=== PATIENT | female | born 1960 | race Caucasian/White ===

== ENCOUNTER 2017-03-21 19:55 | Emergency (ER) | payer OTHER ==
[~2017-03-21] VITALS: Ht 160 cm; Wt 70.8 kg
--- OUTSIDE RECORDS SUMMARY | ~2017-03-21 | XMS ---
Demographics + + + | Address | [address] | | | [address] | | | [place] [address] | + + + | Preferred Language | Unknown | + + + | Marital Status | Unknown | + + + | Yarsanism Affiliation | Unknown | + + + | Race | Unknown | + + + | Ethnic Group | Unknown | + + + Author + + + | Author | [facility] | + + + | Organization | [facility] | + + + | Address | [address] | | | [place] [address] | + + + | Phone | | + + + Care Team Providers + + + + | Care Applications Support Lead Name | Role | Phone | + + + + Unavailable | Unavailable | + + + + PROBLEMS +---------+ + + +--------+ + + | Type | Condition | ICD9-CM | [id number] | Onset | Condition | SNOMED | | | | Code | Code | Dates | Status | Code | +---------+ + + +--------+ + + | Problem | Hyperlipem | 272.4 | | | Active | [id number] | | | ia | | | | | | +---------+ + + +--------+ + + | Problem | Hypertensi | 401.9 | | | Active | [id number] | | | on | | | | | | +---------+ + + +--------+ + + | Problem | Degenerati | 722.6 | | | Active | [id number] | | | ve disc | | | | | | | | disease | | | | | | | | NOS | | | | | | +---------+ + + +--------+ + + ALLERGIES + + + + +--------+ | Substance | Reaction | Event Type | Date | Status | + + + + +--------+ | Iron (Ferrous | stomach upset | Drug Allergy | Dec, | Active | | Gluconate) | | | | | + + + + +--------+ | Darvocet-N 100 | vomiting | Drug Allergy | Dec, | Active | + + + + +--------+ SOCIAL HISTORY No smoking Hx information available PLAN OF CARE + +---------+ | Activity | Details | + +---------+ +---+ | | +---+ + + + | Follow Up | 2 Months Reason:null | + + + VITAL SIGNS + + + + | Height | 63 in | 2016-12-31 | + + + + | Weight | 152.3 lbs | 2016-12-31 | + + + + | BMI | 26.98 kg/m2 | 2016-12-31 | + + + + | Temperature | 98.3 degrees Fahrenheit | 2016-12-31 | + + + + | Heart Rate | 68 /min | 2016-12-31 | + + + + | Blood pressure systolic | 123 mm Hg | 2016-12-31 | + + + + | Blood pressure diastolic | 73 mm Hg | 2016-12-31 | + + + + MEDICATIONS + + + + + + + +--------+ | Medicati | Instruct | Dosage | Frequenc | Start | End Date | Duration | Status | | on | ions | | y | Date | | | | + + + + + + + +--------+ | Hydrocod | Orally | 1-2 | | | | | Active | | one-Acet | every4- | tablet | | | | | | | aminophe | 6 hrs | as | | | | | | | n 5-325 | | needed | | | | | | | MG | | | | | | | | + + + + + + + +--------+ | Lorazepa | Orally | 1 tablet | | | | | Active | | m 1 MG | prn | | | | | | | + + + + + + + +--------+ | Ondanset | Orally | 1 tablet | 24h | | | | Active | | alma HCl | Once a | | | | | | | | 8 MG | day | | | | | | | + + + + + + + +--------+ | Potassiu | Orally | 1 tab(s) | 24h | | | | Active | | m | Once a | | | | | | | | Chloride | day | | | | | | | | 20 MEQ | | | | | | | | + + + + + + + +--------+ | Clobetas | External | 1 | | 09 November, | | 30 | Active | | ol | ly as | applicat | | 2017 | | day(s) | | | Propiona | directed | ion to | | | | | | | te 0.05 | | affected | | | | | | | % | | area | | | | | | + + + + + + + +--------+ | Alprazol | Orally | 1 tablet | 24h | | | | Active | | am 0.5 | daily | | | | | | | | MG | | | | | | | | + + + + + + + +--------+ | Wellbutr | Orally | 1 tablet | 24h | 21 Feb, | | | Active | | in XL | Once a | | | 2017 | | | | | 150 MG | day | | | | | | | + + + + + + + +--------+ | Mupiroci | External | | 12h | | | | Active | | n 2 % | ly bid | | | | | | | + + + + + + + +--------+ | Biotin | Orally | 1 tablet | 24h | | | | Active | | 10 mg | Once a | | | | | | | | | day | | | | | | | + + + + + + + +--------+ | Vitamin | Orally | 1 tablet | 24h | | | | Active | | C 1000 | Once a | | | | | | | | mg | day | | | | | | | + + + + + + + +--------+ | Multivit | | | | | | | Active | | poon | | | | | | | | | Adult - | | | | | | | | + + + + + + + +--------+ | Dexameth | Orally | 1 tablet | 12h | | | | Active | | asone 4 | Twice a | | | | | | | | MG | day | | | | | | | + + + + + + + +--------+ | Nystatin | | | | | | | Active | | - | | | | | | | | + + + + + + + +--------+ | Ibuprofe | Orally | 1 tablet | 6h | | | | Active | | n 200 MG | every 6 | as | | | | | | | | hrs | needed | | | | | | + + + + + + + +--------+ RESULTS No Results PROCEDURES + + + + + | Procedure | Date Ordered | Related Diagnosis | Body Site | + + + + + | Est Level III | December 31, 2016 | | | | Intermediate | | | | + + + + + IMMUNIZATIONS No Known Immunizations"
--- OUTSIDE RECORDS SUMMARY | ~2017-03-21 | XMS ---
Demographics + + + | Address | [address] | | | [address] | | | [place] [address] | + + + | Preferred Language | Unknown | + + + | Marital Status | Unknown | + + + | Rastafari Affiliation | Unknown | + + + | Race | Unknown | + + + | Ethnic Group | Unknown | + + + Author + + + | Author | [facility] | + + + | Organization | [facility] | + + + | Address | [address] | | | [place] [address] | + + + | Phone | | + + + Care Team Providers + + + + | Care Machinery Mechanic Name | Role | Phone | + + + + Unavailable | Unavailable | + + + + PROBLEMS +---------+ + + +--------+ + + | Type | Condition | ICD9-CM | [id number] | Onset | Condition | SNOMED | | | | Code | Code | Dates | Status | Code | +---------+ + + +--------+ + + | Problem | Hyperlipem | 272.4 | | | Active | [id number] | | | ia | | | | | | +---------+ + + +--------+ + + | Problem | Hypertensi | 401.9 | | | Active | [id number] | | | on | | | | | | +---------+ + + +--------+ + + | Problem | Degenerati | 722.6 | | | Active | [id number] | | | ve disc | | | | | | | | disease | | | | | | | | NOS | | | | | | +---------+ + + +--------+ + + ALLERGIES Unknown Allergies SOCIAL HISTORY No smoking Hx information available PLAN OF CARE VITAL SIGNS MEDICATIONS Unknown Medications RESULTS No Results PROCEDURES No Known procedures IMMUNIZATIONS No Known Immunizations"
--- OUTSIDE RECORDS SUMMARY | ~2017-03-21 | XMS ---
Demographics + + + | Address | [address] | | | [address] | | | [place] [address] | + + + | Preferred Language | Unknown | + + + | Marital Status | Unknown | + + + | Mu-Ism Affiliation | Unknown | + + + | Race | Unknown | + + + | Ethnic Group | Unknown | + + + Author + + + | Author | [facility] | + + + | Organization | [facility] | + + + | Address | [address] | | | [place] [address] | + + + | Phone | | + + + Care Team Providers + + + + | Care Decorating Equipment Setter Name | Role | Phone | + + + + Unavailable | Unavailable | + + + + PROBLEMS + + + + + + + + | Type | Condition | ICD9-CM | [id number] | Onset | Condition | SNOMED | | | | Code | Code | Dates | Status | Code | + + + + + + + + | Problem | Hyperlipem | 272.4 | | | Active | [id number] | | | ia | | | | | | + + + + + + + + | Problem | Hypertensi | 401.9 | | | Active | [id number] | | | on | | | | | | + + + + + + + + | Problem | Degenerati | 722.6 | | | Active | [id number] | | | ve disc | | | | | | | | disease | | | | | | | | NOS | | | | | | + + + + + + + + | Assessment | Moderate | F32.1 | | 09 November, | Active | [id number] | | | single | | | 2017 | | | | | current | | | | | | | | episode of | | | | | | | | major | | | | | | | | depressive | | | | | | | | disorder | | | | | | + + + + + + + + ALLERGIES + + + + +--------+ | Substance | Reaction | Event Type | Date | Status | + + + + +--------+ | Iron (Ferrous | stomach upset | Drug Allergy | November, | Active | | Gluconate) | | | | | + + + + +--------+ | Darvocet-N 100 | vomiting | Drug Allergy | November, | Active | + + + + +--------+ SOCIAL HISTORY No smoking Hx information available PLAN OF CARE VITAL SIGNS + + + + | Height | 63 in | 2016-11-30 | + + + + | Weight | 148.4 lbs | 2016-11-30 | + + + + | BMI | 26.29 kg/m2 | 2016-11-30 | + + + + | Temperature | 98.1 degrees Fahrenheit | 2016-11-30 | + + + + | Heart Rate | 65 /min | 2016-11-30 | + + + + | Blood pressure systolic | 125 mm Hg | 2016-11-30 | + + + + | Blood pressure diastolic | 71 mm Hg | 2016-11-30 | + + + + MEDICATIONS + [...] | 24h | 21 Feb, | | 30 days | Active | | in XL | Once a | | | 2017 | | | | | 300 MG | day | | | | [...] + + | Est Level III | November 30, 2016 | | | | Intermediate | | | | + + + + + IMMUNIZATIONS No Known Immunizations"
[~2017-03-21 19:55] MED LIST: ACYCLOVIR200 MG PO; AMOX TR-K CLV1 EACH PO; ATIVAN1 MG PO; AUGMENTIN 875-1 EACH PO; CLOBETASOL PROP15 GM TOP; DEXAMETHASONE4 MG PO; HYDROCODON-ACE1 EA10 PO; IBUPROFEN200 MG PO; LOVASTATIN20 MG; NAPROSYN500 MG PO; NORCO 5-325 TA1 EACH PO; NYSTATIN1 EAC7 MISC; ONDANSETRON ODT8 MG PO; POTASSIUM 25 M25 MEQ PO; WELLBUTRIN SR150 MG PO
[2017-03-21] MEDS ORDERED: VITAMIN C1000 MG PO (20:13)
[2017-03-21] MEDS ORDERED: THERA-M TABLET1 EA PO (20:14)
[2017-03-21] MEDS ORDERED: BIOTIN2500 MCG PO (20:15)
[2017-03-21] MEDS ORDERED: [UNRECOGNIZED DRUG - OTHER] IV (20:17)
== END 2017-03-21 20:47 | disposition home or self-care (01) ==
LOC: ED 19:55
DX: Z45.2 Encounter for adjustment and management of vascular access device (principal); I10 Essential (primary) hypertension; Z87.891 Personal history of nicotine dependence; Z88.8 Allergy status to other drugs, medicaments and biological substances; Z79.899 Other long term (current) drug therapy; Z79.891 Long term (current) use of opiate analgesic
CPT/HCPCS: 99282

== ENCOUNTER 2017-05-07 11:20 | Emergency (ER) | payer OTHER ==
[~2017-05-07] VITALS: Ht 160 cm; Wt 70.8 kg
[~2017-05-07 11:20] MED LIST changes: +BIOTIN2500 MCG PO; +THERA-M TABLET1 EA PO; +VITAMIN C1000 MG PO; +[UNRECOGNIZED DRUG - OTHER] IV
[2017-05-07] MEDS ORDERED: FLAGYL500 MG PO (14:36)
[2017-05-07] MEDS ORDERED: CIPRO500 MG PO (14:36)
== END 2017-05-07 15:33 | disposition home or self-care (01) ==
LOC: ED 11:20
DX: N39.0 Urinary tract infection, site not specified (principal); C20 Malignant neoplasm of rectum; I10 Essential (primary) hypertension; Z92.21 Personal history of antineoplastic chemotherapy; Z88.8 Allergy status to other drugs, medicaments and biological substances; Z79.899 Other long term (current) drug therapy; Z87.891 Personal history of nicotine dependence
CPT/HCPCS: 80053; 81001; 83690; 85025; 87088; 96361; 96374; 99283; J7030

== ENCOUNTER 2017-10-11 15:21 | Emergency (ER) | payer OTHER ==
[~2017-10-11] VITALS: Ht 160 cm; Wt 70.9 kg
--- OUTSIDE RECORDS SUMMARY | ~2017-10-11 | XMS | Encounter Summary ---
Demographics + + + | Address | [address] | | | [place] [address] | + + + | Home Phone | | + + + | Preferred Language | Unknown | + + + | Marital Status | Single | + + + | Quaker Affiliation | NON | + + + | Race | White | + + + | Ethnic Group | Not or | + + + Author + + + | Author | [facility] | + + + | Organization | [facility] | + + + | Address | Unknown | + + + | Phone | Unavailable | + + + Support + + +---------+ + | Name | Relationship | Address | Phone | + + +---------+ + | SARAH CUNNINGHAM | ECON | Unknown | | + + +---------+ + Care Team Providers + +------+ + | Care Fire Sprinkler Apparatus Inspector Name | Role | Phone | + +------+ + | Kristian Anderson DO | PCP | | + +------+ + Reason for Visit + + + | Reason | Comments | + + + | Medical Records | | | Review | | + + + Encounter Details +--------+ + + + + | Date | Type | Department | Care Team | Description | +--------+ + + + + | 09/30/ | Abstract | Dig[facility]ive Health | Ailyn Wolff MD | Medical Records | | 2018 | | [facility] | [address] | Review | | | | Floor [address] [place], | | | | | [place] Mailcode: [place] | [place] [address] | | | | | [facility] | [phone] | | | | | and [address], [address] | | | | | | floor [place], [place] | | | | | | [address] | | | | | | [phone] | | | +--------+ + + + + Social History + +-------+ +--------+ + | Tobacco Use | Types | Packs/Day | Years | Date | | | | | Used | | + +-------+ +--------+ + | Former Smoker | | 1.5 | 39 | Quit: 07/19/2016 | + +-------+ +--------+ + + +---+---+---+ | Smokeless Tobacco: | | | | | Former User | | | | + +---+---+---+ + + +---------+ + | Alcohol Use | Drinks/We | oz/Week | Comments | | | ek | | | + + +---------+ + | No | | | | + + +---------+ + + + + | Sex Assigned at | Date Recorded | | | | + + + | Not on file | | + + + as of this encounter Functional Status + + + + | Functional Status | Response | Date of Assessment | + + + + | Because of a physical, mental, or emotional | No | 07/04/2017 | | condition, do you have serious difficulty | | | | doing errands alone such as visiting the | | | | doctor? | | | + + + + + + + + | Cognitive Status | Response | Date of Assessment | + + + + | Because of a physical, mental, or emotional | No | 07/04/2017 | | condition, do you have serious difficulty | | | | concentrating, remembering, or making | | | | decisions? (5 years old or older) | | | + + + + as of this encounter Plan of Treatment +--------+---------+ + + + | Date | Type | Specialty | Care Team | Description | +--------+---------+ + + + | 11/21/ | Office | Surgery | Ailyn Wolff MD | | | 2018 | Visit | | [address] | | | | | | [address] [place], | | | | | | [place] [address] | | | | | | [phone] | | | | | | | | +--------+---------+ + + + as of this encounter Visit Diagnoses Not on filein this encounter"
--- OUTSIDE RECORDS SUMMARY | ~2017-10-11 | XMS | Encounter Summary ---
Demographics + + + | Address | [address] | | | [place] [address] | + + + | Home Phone | | + + + | Preferred Language | Unknown | + + + | Marital Status | Single | + + + | Oriental Orthodox Affiliation | NON | + + + | Race | White | + + + | Ethnic Group | Not or | + + + Author + + + | Author | [facility] | + + + | Organization | [facility] | + + + | Address | Unknown | + + + | Phone | Unavailable | + + + Support + + +---------+ + | Name | Relationship | Address | Phone | + + +---------+ + | SARAH CUNNINGHAM | ECON | Unknown | | + + +---------+ + Care Team Providers + +------+ + | Care Cemetery Counselor Name | Role | Phone | + +------+ + | Justin Kirstian | PCP | | + +------+ + Reason for Visit + + + | Reason | Comments | + + + | Erroneous Encounter | | | - Disregard | | + + + Encounter Details +--------+ + + + + | Date | Type | Department | Care Team | Description | +--------+ + + + + | 08/22/ | Telephone | Digestive Health | Ailyn Wolff MD | Erroneous Encounter | | 2018 | | Center at [facility] | [address] | - Disregard | | | | Floor [address] [place], | | | | | [place]code: [place] | [place] [address] | | | | | [facility] | [phone] | | | | | and [address], [address]th | | | | | | floor [place], [place] | | | | | | [address] | | | | | | [phone] | | | +--------+ + + + [...] | | | | | [address] [place], | | | | | | [place] [address] | | | | | | [phone] | | | | | | | | +--------+---------+ + + + as of this encounter Visit Diagnoses Not on filein this encounter"
--- OUTSIDE RECORDS SUMMARY | ~2017-10-11 | XMS | Encounter Summary ---
Demographics + + + | Address | [address] | | | [place] [address] | + + + | Home Phone | | + + + | Preferred Language | Unknown | + + + | Marital Status | Single | + + + | Orthodoxy Affiliation | NON | + + + | Race | White | + + + | Ethnic Group | Not or | + + + Author + + + | Author | [facility] | + + + | Organization | [facility] | + + + | Address | Unknown | + + + | Phone | Unavailable | + + + Support + + +---------+ + | Name | Relationship | Address | Phone | + + +---------+ + | SARAH CUNNINGHAM | ECON | Unknown | | + + +---------+ + Care Team Providers + +------+ + | Care Water Hauler Name | Role | Phone | + [...] Medical Records | | 2018 | | [facility] 6th | [address] | Review | | | | Floor [address] | [address] [place], | | | | | [place] Mailcode: [place] | [place] [address] | | | | | [facility] | [phone] | | | | | and [address], [address]th | | | | | | floor [place], [place] | | | | | | [address] | | | | | | [phone] | | | +--------+ + + + [...] | | | | | [address] [place], | | | | | | [place] [address] | | | | | | [phone] | | | | | | | | +--------+---------+ + + + as of this encounter Visit Diagnoses Not on filein this encounter"
--- OUTSIDE RECORDS SUMMARY | ~2017-10-11 | XMS | Clinical Summary ---
Demographics + + + | Address | [address] | | | [place] [address] | + + + | Home Phone | | + + + | Preferred Language | Unknown | + + + | Marital Status | Single | + + + | Voodoo Affiliation | NON | + + + | Race | White | + + + | Ethnic Group | Not or | + + + Author + + + | Author | [facility] | + + + | Organization | [facility] | + + + | Address | Unknown | + + + | Phone | Unavailable | + + + Support + + +---------+ + | Name | Relationship | Address | Phone | + + +---------+ + | SARAH CUNNINGHAM | ECON | Unknown | | + + +---------+ + Care Team Providers + +------+ + | Care Hosiery Repairer Name | Role | Phone | + +------+ + | Kristian Anderson DO | PP | | + +------+ + Source Comments CHAPIN is fully live on both [facility] and [facility] Allergies + + + + + + | Active Allergy | Reactions | Severity | Noted | Comments | | | | | Date | | + + + + + + | Ferrous Gluconate | Nausea, Flushing | | 06/13/20 | | | | | | 17 | | + + + + + + | Propoxyphene | Nausea and Vomiting | | 10/19/19 | Pt reports she | | | | | 15 | puked with | | | | | | "Darvocet" | + + + + + + Current Medications + + +--------+---------+------+------+-------+ | Prescription | Sig. | Disp. | Refills | Star | End | Statu | | | | | | t | Date | s | | | | | | Date | | | + + +--------+---------+------+------+-------+ | buPROPion SR 150 | Take 150 mg by mouth | | | | | Activ | | mg oral tablet | once daily in the | | | | | e | | extended release | morning. | | | | | | + + +--------+---------+------+------+-------+ | ASCORBIC ACID | Take 1 tablet by | | | | | Activ | | (VITAMIN C ORAL) | mouth once daily. | | | | | e | + + +--------+---------+------+------+-------+ | potassium chloride | Take 20 mEq by mouth | | | | | Activ | | 20 mEq oral packet | once daily. | | | | | e | + + +--------+---------+------+------+-------+ | MULTIVITAMIN ORAL | Take by mouth. | | | | | Activ | | | | | | | | e | + + +--------+---------+------+------+-------+ | clobetasol 0.05 % | Apply to affected | | | | | Activ | | topical ointment | area | | | | | e | + + +--------+---------+------+------+-------+ | nystatin 100,000 | Apply to affected | | | | | Activ | | unit/gram topical | area | | | | | e | | powder | | | | | | | + + +--------+---------+------+------+-------+ | acetaminophen 500 | Take 2 tablets by | | | 12/1 | | Activ | | mg oral | mouth every six | | | 2/20 | | e | | tabletIndications: | hours. Indications: | | | 17 | | | | Pain | Pain | | | | | | + + +--------+---------+------+------+-------+ | oxyCODONE | Take 1 tablet by | 120 | 0 | 01/0 | | Activ | | (immediate release) | mouth every six | tablet | | 3/20 | | e | | 5 mg oral tablet | hours as needed for | | | 18 | | | | | up to 120 doses. | | | | | | + + +--------+---------+------+------+-------+ | guaiFENesin LA 600 | Take 600 mg by mouth | | | | | Activ | | mg oral tablet | twice daily as | | | | | e | | extended release | needed. | | | | | | + + +--------+---------+------+------+-------+ Active Problems + + + | Problem | Noted Date | + + + | CA of rectum (HCC) | 10/01/2016 | + + + + + | Overview: Overview: | | ACTIVE DIAGNOSIS: Rectal Cancer. | + + Encounters +--------+ + + + + | Date | Type | Specialty | Care Team | Description | +--------+ + + + + | 09/30/ | Abstract | | Ailyn Wolff MD | Medical Records | | 2017 | | | | Review | +--------+ + + + + | 09/06/ | Abstract | | Ailyn Wolff MD | Medical Records | | 2017 | | | | Review | +--------+ + + + + | 08/26/ | Abstract | | Ailyn Wolff MD | Medical Records | | 2017 | | | | Review | +--------+ + + + + | 08/24/ | MyChart | | Ailyn Wolff MD | RE: Work | | 2017 | Encounter | | | | +--------+ + + + + | 08/22/ | Office | | Ailyn Wolff MD | | | 2017 | Visit | | | | +--------+ + + + + | 08/22/ | Telephone | | Ailyn Wolff MD | Erroneous Encounter | | 2017 | | | | - Disregard | +--------+ + + + + | 08/22/ | Telephone | | Ailyn Wolff MD | Follow-up encounter | | 2017 | | | | | +--------+ + + + + | 08/18/ | Abstract | | Ailyn Wolff MD | Medical Records | | 2017 | | | | Review | +--------+ + + + + | 08/15/ | Abstract | | Ailyn Wolff MD | Outside Records | | 2017 | | | | Received | +--------+ + + + + | 08/12/ | MyChart | | Ailyn Wolff MD | Question | | 2018 | Encounter | | | | +--------+ + + + + | 07/27/ | Office | | Ailyn Wolff MD | CA of rectum ([facility]) | | 2018 | Visit | | | (Primary Dx) | +--------+ + + + + | 07/19/ | Slasher | | Trinidad Garcia, | | | 2016 | | | AGACNP | | +--------+ + + + + | 07/19/ | Slasher | | Trinidad Garcia, | | | 2016 | | | AGACNP | | +--------+ + + + + | 07/19/ | Telephone | | Ailyn Wolff MD | Prescription | | 2016 | | | | | +--------+ + + + + | 07/19/ | Abstract | | Ailyn Wolff MD | Outside Records | | 2016 | | | | Received (UA | | | | | | 07/14/2017) | +--------+ + + + + | 07/19/ | MyChart | | Ailyn Wolff MD | Hormones | | 2016 | Encounter | | | | +--------+ + + + + | 07/19/ | MyChart | | Ailyn Wolff MD | refills | | 2016 | Encounter | | | | +--------+ + + + + | 07/13/ | Abstract | | Ailyn Wolff MD | Outside Records | | 2016 | | | | Received | +--------+ + + + + from Last 3 Months Family History + + +------+ + | Medical History | Relation | Name | Comments | + + +------+ + | Coronary Artery | Brother | | NATHAN x 4 | | Disease | | | | + + +------+ + | Heart Attack | Brother | | | + + +------+ + | Diabetes | Father | | | + + +------+ + | Heart Attack | Father | | from [place] at age 52 | + + +------+ + | Cancer | Mother | | breast | + + +------+ + | Hypertension | Mother | | | + + +------+ + + +------+--------+ + | Relation | Name | Status | Comments | + +------+--------+ + | Brother | | | | + +------+--------+ + | Father | | | | + +------+--------+ + | Mother | | | | + +------+--------+ + Social History + +-------+ +--------+ + [...] on file | | + + + Last Filed Vital Signs + + + + | Vital Sign | Reading | Time Taken | + + + + | Blood Pressure | 144/93 | 08/22/2017 12:33 PM PST | + + + + | Pulse | 94 | 08/22/2017 12:33 PM PST | + + + + | Temperature | 36.7 C (98 F) | 08/22/2017 12:33 PM PST | + + + + | Respiratory Rate | 16 | 07/27/2017 4:08 PM PST | + + + + | Oxygen Saturation | 98% | 08/22/2017 12:33 PM PST | + + + + | Inhaled Oxygen | - | - | | Concentration | | | + + + + | Weight | 71.1 kg (156 lb 11.2 | 08/22/2017 12:33 PM PST | | | oz) | | + + + + | Height | 160 cm (5' 3") | 08/22/2017 12:33 PM PST | + + + + | Body Mass Index | 27.76 | 08/22/2017 12:33 PM PST | + + + + Plan of Treatment +--------+---------+ + + + | Date | Type | Specialty | Care Team | Description | +--------+---------+ + + + | 11/21/ | Office | | Ailyn Wolff MD | | | 2018 | Visit | | [address] | | | | | | [address] [place], | | | | | | [place] [address] | | | | | | [phone] | | | | | | | | +--------+---------+ + + + + + + + + | Health Maintenance | Due Date | Last Done | Comments | + + + + + | INFLUENZA VACCINE | | | | | (FLU SHOT) | 7 | | | + + + + + Implants + +------+------+ +--------+--------+--------+ | Implanted | Type | Area | Manufacture | Device | Expira | Model | | | | | r | | tion | / | | | | | | Identi | Date | Serial | | | | | | fier | | / Lot | + +------+------+ +--------+--------+--------+ | Implanted Port | | | | | | | + +------+------+ +--------+--------+--------+ Results Not on filefrom Last 3 Months
--- OUTSIDE RECORDS SUMMARY | ~2017-10-11 | XMS | Encounter Summary ---
Demographics + + + | Address | [address] | | | [place] [address] | + + + | Home Phone | | + + + | Preferred Language | Unknown | + + + | Marital Status | Single | + + + | Pentecostal Affiliation | NON | + + + [...] Team Providers + +------+ + | Care Antique Dealer Name | Role | Phone | + +------+ + | Kristian Anderson DO | PCP | | + +------+ + Reason for Visit + + + | Reason | Comments | + + + | Follow-up encounter | | + + + | Rectal cancer | | + + + Encounter Details +--------+---------+ + + + | Date | Type | Department | Care Team | Description | +--------+---------+ + + + | 07/27/ | Office | Digestive Health | Ailyn Wolff MD | CA of rectum (HCC) | | 2018 | Visit | Center at [facility] 6th | [address] | (Primary Dx) | | | | Floor [address] | [address] [place], | | | | | [place] Mailcode: CH6D | [place] [address] | | | | | [facility] | [phone] | | | | | and Healing, 6th | | | | | | floor [place], [place] | | | | | | [address] | | | | | | [phone] | | | +--------+---------+ + + + [...] + + + as of this encounter Last Filed Vital Signs + + + + | Vital Sign | Reading | Time Taken | + + + + | Blood Pressure | 150/90 | 07/27/2017 4:08 PM PST | + + + + | Pulse | 88 | 07/27/2017 4:08 PM PST | + + + + | Temperature | 36.6 C (97.9 F) | 07/27/2017 4:08 PM PST | + + + + | Respiratory Rate | 16 | 07/27/2017 4:08 PM PST | + + + + | Oxygen Saturation | 98% | 07/27/2017 4:08 PM PST | + + + + | Inhaled Oxygen | - | - | | Concentration | | | + + + + | Weight | 72.3 kg (159 lb 8 | 07/27/2017 4:08 PM PST | | | oz) | | + + + + | Height | 160 cm (5' 3") | 07/27/2017 4:08 PM PST | + + + + | Body Mass Index | 28.25 | 07/27/2017 4:08 PM PST | + + + + in this encounter Functional Status + + [...] + + + as of this encounter Instructions Patient Instructions - Ailyn Wolff MD - 07/27/2017 3:40 PM PSTPlan: I renewed her oxycodone. See me back in 3-4 weeks. Make an appointment with Dr. Islas. Consider another 2 cycles of chemo to finish 12 cycles.in this encounter Progress Notes Emily Gresham MA - 07/27/2017 3:40 PM PSTExamination chaperoned by Emily Levi CMA.Ailyn Wolff MD - 07/27/2017 3:40 PM PSTCOLON AND RECTAL SURGERY Attending Clin ic Note Established Patient Assessment: 56 y.o. female with htn, elevated lipids, heartburn, nephrolithiasis, and liche n sclerosus endoscopically obstructing mriT4 N0 M0 rectal mass (6 cm from verge) invading vagina rectal urgency and a lot of rectal bleeding on 07/19/16 went to the [facility] ED CT abdomen/pelvis with IV contrast [...] (10/05/16) no liver metastases rigid proctoscopy by nd (10/05/16) 6 cm from anal verge presented at the [facility] Multidisciplinary GI Oncology Conference on 10/07/16 diagnosis: [...] to Mendoza pouch staple line presented at [facility] Multidisciplinary GI Oncology Conference on 03/10/17. 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 See me back in 3-4 weeks. Make an appointment with Dr. Islas. Consider another 2 cycles of chemo to finish 12 cycles. 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 No abdominal pain now. A lot of pelvic pain (near tailbone ) in the am. Oxycodone 1 tab twice a day. Tolerating her diet. No fevers, chills, nause a, or vomiting. She emptied her colostomy bag 6 times yesterday after a period of constipat ion. She changes her colostomy bag twice a week. Numb in right upper thigh and below pannus. No perineal drainage. Some perineal discomf ort when she showers. Fluctuating memory. All other systems reviewed and are negative. Manuel leon comes for routine postop check. Objective: BP 150/90 | Pulse 88 | Temp (Src) 36.6 C (97.9 F) (Oral) | RR 16 | Ht 1.6 m (5' 3") | Wt 72.3 kg (159 lb 8 oz) | SpO2 98% | BMI 28.25 kg/(m^2) General: well-developed, well-nourished female in NAD Mental Status: A&O x 4 Neurologic: moves all extremities well HEENT: anicteric sclera, EOMI Abd: soft, midline incision without hernia, viable left-sided ostomy, nontender, nondistended Extremities: no calf tenderness, no clubbing/cyanosis/edema Perineum: 5 mm skin dehiscence, no signs of infection With this Return/Re-evaluation patient, I spent 19 minutes of rtbz-gw-tjib time, of which m ore than half the time was spent in counseling. 14 minute document reviewin this encounter Plan of Treatment +--------+---------+ + + + | Date | Type | Specialty | Care Team | Description | +--------+---------+ + + + | 11/21/ | Office | Surgery | Ailyn Wolff MD | | | 2017 | Visit | | [address] | | | | | | [address] [place], | | | | | | [place] [address] | | | | | | [phone] | | | | | | | | +--------+---------+ + + + as of this encounter Visit Diagnoses + + | Diagnosis | + + | CA of rectum (HCC) - Primary | + + | Malignant neoplasm of rectum | + +
--- OUTSIDE RECORDS SUMMARY | ~2017-10-11 | XMS | Encounter Summary ---
Demographics + + + | Address | [address] | | | [place] [address] | + + + | Home Phone | | + + + | Preferred Language | Unknown | + + + | Marital Status | Single | + + + | Islam Affiliation | NON | + + + | Race | White | + + + | Ethnic Group | Not or | + + + Author + + + | Author | [facility] | + + + | Organization | [facility] | + + + | Address | Unknown | + + + | Phone | Unavailable | + + + Support + + +---------+ + | Name | Relationship | Address | Phone | + + +---------+ + | SARAH CUNNINGHAM | ECON | Unknown | | + + +---------+ + Care Team Providers + +------+ + | Care Optical Brightener Maker Helper Name | Role | Phone | [...] + + | 08/26/ | Abstract | Digestive Health | Ailyn Wolff MD | Medical Records | | 2018 | | [facility] 6th | [address] | Review | | | | Floor [address] | [address] [place], | | | | | [place] Mailcode: CH6D | [place] [address] | | | | | [facility] | [phone] | | | | | and [address], 6th | | | | | | floor [place], [place] | | | | | | [address] | | | | | | [phone] | | | +--------+ + + + [...] | | | | | [address] [place], | | | | | | [place] [address] | | | | | | [phone] | | | | | | | | +--------+---------+ + + + as of this encounter Visit Diagnoses Not on filein this encounter"
--- OUTSIDE RECORDS SUMMARY | ~2017-10-11 | XMS | Encounter Summary ---
Demographics + + + | Address | [address] | | | [place] [address] | + + + | Home Phone [...] Author + + + | Author | [facility] | + + + | Organization | [facility] | + + + | Address | Unknown | + + + | Phone | Unavailable | + + + Support + + +---------+ + | Name | Relationship | Address | Phone | + + +---------+ + | SARAH CUNNINGHAM | ECON | Unknown | | + + +---------+ + Care Team Providers + +------+ + | Care Supervisor Sanding Name | Role | Phone | + [...] Outside Records | | 2017 | | [facility] 6th | [address] | Received | | | | Floor [address] | [address] [place], | | | | | [place] Mailcode: CH6D | [place] [address] | | | | | [facility] | [phone] | | | | | and [address], 6th | | | | | | floor [place], [place] | | | | | | [address] | | | | | | [phone] | | | +--------+ + + + [...] | | | | | [address] [place], | | | | | | [place] [address] | | | | | | [phone] | | | | | | | | +--------+---------+ + + + as of this encounter Visit Diagnoses Not on filein this encounter"
--- OUTSIDE RECORDS SUMMARY | ~2017-10-11 | XMS | Encounter Summary ---
Demographics + + + | Address | [address] | | | [place] [address] | + + + | Home Phone [...] Team Providers + +------+ + | Care Belt Maker Helper Name | Role | Phone | + +------+ + | Justin Kristian | PCP | | + +------+ + Reason for Visit + + + | Reason | Comments | + + + | Follow-up encounter | post op | + + + | Rectal cancer | | + + + Encounter Details +--------+---------+ + + + | Date | Type | Department | Care Team | Description | +--------+---------+ + + + | 08/22/ | Office | Digestive Health | Ailyn Wolff MD | | | 2018 | Visit | Center at [facility] 6th | [address] | | | | | Floor [address] | [address] [facility], | | | | | [place] Mailcode: CH6D | [place] [address] | | | | | [facility] | [phone] | | | | | and Healing, 6th | | | | | | floor [place], [place] | | | | | | [address] | | | | | | [phone] | | | +--------+---------+ + + + [...] Respiratory Rate | - | - | + + + + | Oxygen [...] Patient Instructions - Ailyn Wolff MD - 08/22/2017 12:40 PM PSTPlan: Ok to use Vaseline around perineum See me back in [address] Islas. Consider another 2 cycles of chemo to finish 12 cycles. No fistula. Given prior chemoradiation, may take up to 6 months for complete healing.in this encounter Plan of Treatment +--------+---------+ + + + | Date | Type | Specialty | Care Team | Description | +--------+---------+ + + + | 11/21/ | Office | Surgery | Ailyn Wolff MD | | | 2018 | Visit | | [address] | | | | | | [address] [place], | | | | | | [place] [address] | | | | | | [phone] | | | | | | | | +--------+---------+ + + + as of this encounter Visit Diagnoses Not on filein this encounter
--- OUTSIDE RECORDS SUMMARY | ~2017-10-11 | XMS | Encounter Summary ---
Demographics + + + | Address | [address] | | | [place] [address] | + + + | Home Phone [...] Team Providers + +------+ + | Care Process Treater Name | Role | Phone | + [...] | 2017 | Encounter | Center at [facility] 6th | [address] | | | | | Floor [address] | [address] [facility] | | | | | [place] Mailcode: CH6D | [place] [address] | | | | | [facility] | [phone] | | | | | and [address] 6th | | | | | | floor [place], [place] | | | | | | [address] | | | | | | [phone] | | | +--------+ + + + [...] | | | | | [address] [place], | | | | | | [place] [address] | | | | | | [phone] | | | | | | | | +--------+---------+ + + + as of this encounter Visit Diagnoses Not on filein this encounter"
--- OUTSIDE RECORDS SUMMARY | ~2017-10-11 | XMS | Encounter Summary ---
Demographics + + + | Address | [address] | | | [place] [address] | + + + | Home Phone [...] Team Providers + +------+ + | Care Engineering Group Manager Name | Role | Phone | [...] | 2018 | Encounter | Center at [facility] 6th | [address] | | | | | Floor [address] | [address] [facility] | | | | | [place] Mailcode: CH6D | [place] [address] | | | | | [facility] | [phone] | | | | | and [address] 6th | | | | | | floor [place], [place] | | | | | | [address] | | | | | | [phone] | | | +--------+ + + + [...] | | | | | [address] [place], | | | | | | [place] [address] | | | | | | [phone] | | | | | | | | +--------+---------+ + + + as of this encounter Visit Diagnoses Not on filein this encounter"
--- OUTSIDE RECORDS SUMMARY | ~2017-10-11 | XMS | Encounter Summary ---
Demographics + + + | Address | [address] | | | [place] [address] | + + + | Home Phone | | + + + | Preferred Language | Unknown | + + + | Marital Status | Single | + + + | Roman Catholic Affiliation | NON | + + + | Race | White | + + + | Ethnic Group | Not or | + + + Author + + + | Author | [facility] | + + + | Organization | [facility] | + + + | Address | Unknown | + + + | Phone | Unavailable | + + + Support + + +---------+ + | Name | Relationship | Address | Phone | + + +---------+ + | SARAH CUNNINGHAM | ECON | Unknown | | + + +---------+ + Care Team Providers + +------+ + | Care Glass Driller Name | Role | Phone | + [...] | 2017 | Encounter | Center at [facility] 6th | [address] | | | | | Floor [address] | [address] [facility] | | | | | [place] Mailcode: CH6D | [place] [address] | | | | | [facility] | [phone] | | | | | and [address] 6th | | | | | | floor [place], [place] | | | | | | [address] | | | | | | [phone] | | | +--------+ + + + [...] | | | | | [address] [place], | | | | | | [place] [address] | | | | | | [phone] | | | | | | | | +--------+---------+ + + + as of this encounter Visit Diagnoses Not on filein this encounter"
--- OUTSIDE RECORDS SUMMARY | ~2017-10-11 | XMS | Encounter Summary ---
Demographics + + + | Address | [address] | | | [place] [address] | + + + | Home Phone [...] Team Providers + +------+ + | Care Prison Warden Name | Role | Phone | + [...] | 2017 | Encounter | Center at [facility] 6th | [address] | | | | | Floor [address] | [address] [facility], | | | | | [place] Mailcode: CH6D | [place] [address] | | | | | [facility] | [phone] | | | | | and Healing, 6th | | | | | | floor [place], [place] | | | | | | [address] | | | | | | [phone] | | | +--------+ + + + [...] | | | | | [address] [place], | | | | | | [place] [address] | | | | | | [phone] | | | | | | | | +--------+---------+ + + + as of this encounter Visit Diagnoses Not on filein this encounter"
--- OUTSIDE RECORDS SUMMARY | ~2017-10-11 | XMS | Encounter Summary ---
Demographics + + + | Address | [address] | | | [place] [address] | + + + | Home Phone | | + + + | Preferred Language | Unknown | + + + | Marital Status | Single | + + + | Yarsani Affiliation | NON | + + + [...] Team Providers + +------+ + | Care Refrigeration Tech Name | Role | Phone | [...] | | 2017 | | Center at [facility] 6th | [address] | Received (UA | | | | Floor [address] | [address] [place], | 07/14/2017) | | | | [place] Mailcode: CH6D | [place] [address] | | | | | [facility] | [phone] | | | | | and [address], 6th | | | | | | floor [place], [place] | | | | | | [address] | | | | | | [phone] | | | +--------+ + + + [...] | | | | | [address] [place], | | | | | | [place] [address] | | | | | | [phone] | | | | | | | | +--------+---------+ + + + as of this encounter Visit Diagnoses Not on filein this encounter"
--- OUTSIDE RECORDS SUMMARY | ~2017-10-11 | XMS | Encounter Summary ---
Demographics + + + | Address | [address] | | | [place] [address] | + + + | Home Phone [...] Team Providers + +------+ + | Care Fondant Puff Maker Name | Role | Phone | [...] Outside Records | | 2018 | | [facility] 6th | [address] | Received | | | | Floor [address] | [address] [place], | | | | | [place] Mailcode: CH6D | [place] [address] | | | | | [facility] | [phone] | | | | | and [address], 6th | | | | | | floor [place], [place] | | | | | | [address] | | | | | | [phone] | | | +--------+ + + + [...] | | | | | [address] [place], | | | | | | [place] [address] | | | | | | [phone] | | | | | | | | +--------+---------+ + + + as of this encounter Visit Diagnoses Not on filein this encounter"
--- OUTSIDE RECORDS SUMMARY | ~2017-10-11 | XMS | Encounter Summary ---
Demographics + + + | Address | [address] | | | [place] [address] | + + + | Home Phone [...] Team Providers + +------+ + | Care Cafeteria Cook Name | Role | Phone | + [...] Medical Records | | 2018 | | [facility] 6th | [address] | Review | | | | Floor [address] | [address] [place], | | | | | [place] Mailcode: CH6D | [place] [address] | | | | | [facility] | [phone] | | | | | and [address], 6th | | | | | | floor [place], [place] | | | | | | [address] | | | | | | [phone] | | | +--------+ + + + [...] | | | | [address] [place], | | | | | | [place] [address] | | | | | | [phone] | | | | | | | | +--------+---------+ + + + as of this encounter Visit Diagnoses Not on filein this encounter"
--- OUTSIDE RECORDS SUMMARY | ~2017-10-11 | XMS | Encounter Summary ---
Demographics + + + | Address | [address] | | | [place] [address] | + + + | Home Phone [...] Team Providers + +------+ + | Care Well Logging Captain Name | Role | Phone | + [...] + + | 09/06/ | Abstract | Digestive Health | Ailyn Wolff MD | Medical Records | | 2018 | | [facility] 6th | [address] | Review | | | | Floor [address] | [address] [place], | | | | | [place] Mailcode: CH6D | [place] [address] | | | | | [facility] | [phone] | | | | | and [address], 6th | | | | | | floor [place], [place] | | | | | | [address] | | | | | | [phone] | | | +--------+ + + + [...] | | | | | [address] [place], | | | | | | [place] [address] | | | | | | [phone] | | | | | | | | +--------+---------+ + + + as of this encounter Visit Diagnoses Not on filein this encounter"
--- OUTSIDE RECORDS SUMMARY | ~2017-10-11 | XMS | Encounter Summary ---
Demographics + + + | Address | [address] | | | [place] [address] | + + + | Home Phone [...] Team Providers + +------+ + | Care Spinner Frame Name | Role | Phone | + [...] | 2018 | Encounter | Center at [facility] 6th | [address] | | | | | Floor [address] | [address] [facility] | | | | | [place] Mailcode: CH6D | [place] [address] | | | | | [facility] | [phone] | | | | | and [address] 6th | | | | | | floor [place], [place] | | | | | | [address] | | | | | | [phone] | | | +--------+ + + + [...] | | | | | [address] [place], | | | | | | [place] [address] | | | | | | [phone] | | | | | | | | +--------+---------+ + + + as of this encounter Visit Diagnoses Not on filein this encounter"
--- OUTSIDE RECORDS SUMMARY | ~2017-10-11 | XMS | Encounter Summary ---
Demographics + + + | Address | [address] | | | [place] [address] | + + + | Home Phone [...] Team Providers + +------+ + | Care Track Layer Head Name | Role | Phone | + +------+ + | Kristian Anderson DO | PCP | | + +------+ + Encounter Details +--------+ + + + + | Date | Type | Department | Care Team | Description | +--------+ + + + + | 07/19/ | Carpentry Supervisor | Digestive Health | Trinidad Garcia, | | | 2017 | | Center at [facility] 6th | [address]ACN [address] | | | | | Floor [address] | [place], [place] | | | | | [address] Mailcode: [facility] | [address] | | | | | [place] [facility] | | | | | | and Healing, 6th | | | | | | floor [place], [place] | | | | | | [address] | | | | | | | [...] | | | | | [address] [place], | | | | | | [place] [address] | | | | | | [phone] | | | | | | | | +--------+---------+ + + + as of this encounter Visit Diagnoses Not on filein this encounter"
--- OUTSIDE RECORDS SUMMARY | ~2017-10-11 | XMS | Encounter Summary ---
Demographics + + + | Address | [address] | | | [place] [address] | + + + | Home Phone [...] Providers + +------+ + | Care Technical Applications Scientist Name | Role | Phone | [...] | 2018 | | Center at [facility] 6th | [address] | - Disregard | | | | Floor [address] | [address] [place], | | | | | [place] Mailcode: CH6D | [place] [address] | | | | | [facility] | [phone] | | | | | and Healing, 6th | | | | | | floor [place], [place] | | | | | | [address] | | | | | | [phone] | | | +--------+ + + + [...] | | | | | [address] [place], | | | | | | [place] [address] | | | | | | [phone] | | | | | | | | +--------+---------+ + + + as of this encounter Visit Diagnoses Not on filein this encounter"
--- OUTSIDE RECORDS SUMMARY | ~2017-10-11 | XMS | Clinical Summary ---
Demographics + + + | Address | [address] | | | [place] [address] | + + + | Home Phone [...] Author + + + | Author | [facility] | + + + | Organization | [facility] | + + + | Address | Unknown | + + + | Phone | Unavailable | + + + Support + + +---------+ + | Name | Relationship | Address | Phone | + + +---------+ + | SARAH CUNNINGHAM | ECON | Unknown | | + + +---------+ + Care Team Providers + +------+ + | Care Industrial Engineering Manager Name | Role | Phone | + +------+ + | Kristian Anderson DO | PP | | + +------+ + Source Comments [facility] is fully live on both [facility] Ambulatory and [facility] InPatient.[facility] Allergies + + + + + + [...] Ailyn Wolff MD | CA of rectum ([facility]) | | 2018 | Visit | | | (Primary Dx) | +--------+ + + + + | 07/19/ | Nuclear Power Reactor Operator | | Trinidad Garcia, | | | 2016 | | | AGACNP | | +--------+ + + + + | 07/19/ | Nuclear Power Reactor Operator | | Trinidad Garcia, | | | [...] Heart Attack | Father | | from [place] at age 52 | + + +------+ [...] | | | | [address] [place], | | | | | | [place] [address] | | | | | | [phone] | | | | | | | [...]
--- OUTSIDE RECORDS SUMMARY | ~2017-10-11 | XMS | Encounter Summary ---
Demographics + + + | Address | [address] | | | [place] [address] | + + + | Home Phone [...] Providers + +------+ + | Care Body Service Team Member Name | Role | Phone | [...] Follow-up encounter | | 2017 | | Center at [facility] 6th | [address] | | | | | Floor [address] | [address] [place], | | | | | [place] Mailcode: CH6D | [place] [address] | | | | | [facility] | [phone] | | | | | and [address], 6th | | | | | | floor [place], [place] | | | | | | [address] | | | | | | [phone] | | | +--------+ + + + [...] | | | | | [address] [place], | | | | | | [place] [address] | | | | | | [phone] | | | | | | | | +--------+---------+ + + + as of this encounter Visit Diagnoses Not on filein this encounter"
--- OUTSIDE RECORDS SUMMARY | ~2017-10-11 | XMS | Encounter Summary ---
Demographics + + + | Address | [address] | | | [place] [address] | + + + | Home Phone [...] Providers + +------+ + | Care Field Scout Name | Role | Phone | + +------+ + | Kristian Anderson DO | PCP | | + +------+ + Encounter Details +--------+ + + + + | Date | Type | Department | Care Team | Description | +--------+ + + + + | 07/19/ | Coffee Sommelier | Digestive Health | Trinidad Garcia, | | | 2017 | | Center at [facility] 6th | [address] | | | | | Floor [address] | [place], [place] | | | | | Brigitte Mailcode: [facility] | [address] | | | | | [place] [facility] | | | | | | and Healing, 6th | | | | | | floor [place], [place] | | | | | | [address] | | | | | | | [...] | | | | | Amita Hines [place], | | | | | | [place] [address] | | | | | | [phone] | | | | | | | | +--------+---------+ + + + as of this encounter Visit Diagnoses Not on filein this encounter"
--- OUTSIDE RECORDS SUMMARY | ~2017-10-11 | XMS | Encounter Summary ---
Demographics + + + | Address | [address] | | | [place] [address] | + + + | Home Phone [...] Team Providers + +------+ + | Care Mechanical Lead Name | Role | Phone | + +------+ + | Kristian Adnerson DO | PCP | | + +------+ + Encounter Details +--------+ + + + + | Date | Type | Department | Care Team | Description | +--------+ + + + + | 08/12/ | MyChart | Digestive Health | Ailyn Wolff MD | Question | | 2018 | Encounter | Center at [facility] 6th | [address] | | | | | Floor [address] | Amita Hines [facility] | | | | | Brigitte Mailcode: CH6D | [place] [address] | | | | | [facility] | [phone] | | | | | and [address] 6th | | | | | | floor [place], [place] | | | | | | [address] | | | | | | [phone] | | | +--------+ + + + [...] | | | | | Amita Hines [place], | | | | | | [place] [address] | | | | | | [phone] | | | | | | | | +--------+---------+ + + + as of this encounter Visit Diagnoses Not on filein this encounter"
--- OUTSIDE RECORDS SUMMARY | ~2017-10-11 | XMS | Encounter Summary ---
Demographics + + + | Address | [address] | | | [place] [address] | + + + | Home Phone [...] Team Providers + +------+ + | Care Motion Graphics Designer Name | Role | Phone | + [...] Medical Records | | 2018 | | [facility] 6th | [address] | Review | | | | Floor [address] | [address] [place], | | | | | [place] Mailcode: CH6D | [place] [address] | | | | | [facility] | [phone] | | | | | and [address], 6th | | | | | | floor [place], [place] | | | | | | [address] | | | | | | [phone] | | | +--------+ + + + [...] | | | | | Amita Hines [place], | | | | | | [place] [address] | | | | | | [phone] | | | | | | | | +--------+---------+ + + + as of this encounter Visit Diagnoses Not on filein this encounter"
--- OUTSIDE RECORDS SUMMARY | ~2017-10-11 | XMS | Encounter Summary ---
Demographics + + + | Address | [address] | | | [place] [address] | + + + | Home Phone [...] Providers + +------+ + | Care Test Rider Name | Role | Phone | + [...] Outside Records | | 2017 | | [facility] 6th | [address] | Received | | | | Floor [address] | [address] [place], | | | | | [place] Mailcode: CH6D | [place] [address] | | | | | [facility] | [phone] | | | | | and [address], 6th | | | | | | floor [place], [place] | | | | | | [address] | | | | | | [phone] | | | +--------+ + + + [...] | | | | Amita Hines [place], | | | | | | [place] [address] | | | | | | [phone] | | | | | | | | +--------+---------+ + + + as of this encounter Visit Diagnoses Not on filein this encounter"
--- OUTSIDE RECORDS SUMMARY | ~2017-10-11 | XMS | Encounter Summary ---
Demographics + + + | Address | [address] | | | [place] [address] | + + + | Home Phone [...] Team Providers + +------+ + | Care Salesperson Hosiery Name | Role | Phone | + +------+ + | Kristian Anderson DO | PCP | | + +------+ + Encounter Details +--------+ + + + + | Date | Type | Department | Care Team | Description | +--------+ + + + + | 07/19/ | Assistant Professor Of Physics | Digestive Health | Trinidad Garcia, | | | 2017 | | Center at [facility] 6th | [address] | | | | | Floor [address] | [place], [place] | | | | | Brigitte Mailcode: [facility] | [address] | | | | | [place] [facility] | | | | | | and Healing, 6th | | | | | | floor [place], [place] | | | | | | [address] | | | | | | | [...] | | | | | Amita Hines [place], | | | | | | [place] [address] | | | | | | [phone] | | | | | | | | +--------+---------+ + + + as of this encounter Visit Diagnoses Not on filein this encounter"
--- OUTSIDE RECORDS SUMMARY | ~2017-10-11 | XMS | Encounter Summary ---
Demographics + + + | Address | [address] | | | [place] [address] | + + + | Home Phone [...] Providers + +------+ + | Care Plate Glass Installer Name | Role | Phone | [...] | Prescription | | 2016 | | Center at [facility] 6th | [address] [facility] | | | | | Floor [address] | mAita [facility], | | | | | [place] Mailcode: CH6D | [place] [address] | | | | | [facility] | [phone] | | | | | and | | | | | | floor [place], [place] | | | | | | [address] | | | | | | [phone] | | | +--------+ + + + [...] | | | | | Amita Hines [place], | | | | | | [place] [address] | | | | | | [phone] | | | | | | | | +--------+---------+ + + + as of this encounter Visit Diagnoses Not on filein this encounter"
--- OUTSIDE RECORDS SUMMARY | ~2017-10-11 | XMS | Encounter Summary ---
Demographics + + + | Address | [address] | | | [place] [address] | + + + | Home Phone [...] Providers + +------+ + | Care Supervisor Fitting Name | Role | Phone | + [...] | | 2016 | | Center at [facility] 6th | [address] [facility] | | | | | Floor [address] | Amita [facility], | | | | | [place] Mailcode: CH6D | [place] [address] | | | | | [facility] | [phone] | | | | | and | | | | | | floor [place], [place] | | | | | | [address] | | | | | | [phone] | | | +--------+ + + + [...] | | | | | Amita Hines [place], | | | | | | [place] [address] | | | | | | [phone] | | | | | | | | +--------+---------+ + + + as of this encounter Visit Diagnoses Not on filein this encounter"
--- OUTSIDE RECORDS SUMMARY | ~2017-10-11 | XMS | Encounter Summary ---
Demographics + + + | Address | [address] | | | [place] [address] | + + + | Home Phone [...] Team Providers + +------+ + | Care Photovoltaic Solar Cell Designer Name | Role | Phone | + +------+ + | Kristian Anderson DO | PCP | | + +------+ + Encounter Details +--------+ + + + + | Date | Type | Department | Care Team | Description | +--------+ + + + + | 07/19/ | Soda Maker | Digestive Health | Trinidad Garcia, | | | 2017 | | Center at [facility] 6th | [address] | | | | | Floor [address] | [place], [place] | | | | | Brigitte Mailcode: [facility] | [address] | | | | | [place] [facility] | | | | | | and Healing, 6th | | | | | | floor [place], [place] | | | | | | [address] | | | | | | | [...] | | | | | Amita Hines [place], | | | | | | [place] [address] | | | | | | [phone] | | | | | | | | +--------+---------+ + + + as of this encounter Visit Diagnoses Not on filein this encounter"
--- OUTSIDE RECORDS SUMMARY | ~2017-10-11 | XMS | Encounter Summary ---
Demographics + + + | Address | [address] | | | [place] [address] | + + + | Home Phone [...] Team Providers + +------+ + | Care Dimensional Integration Engineer Name | Role | Phone | [...] Outside Records | | 2018 | | [facility] 6th | [address] | Received | | | | Floor [address] | [address] [place], | | | | | [place] Mailcode: CH6D | [place] [address] | | | | | [facility] | [phone] | | | | | and [address], 6th | | | | | | floor [place], [place] | | | | | | [address] | | | | | | [phone] | | | +--------+ + + + [...] | | | | | Amita Hines [place], | | | | | | [place] [address] | | | | | | [phone] | | | | | | | | +--------+---------+ + + + as of this encounter Visit Diagnoses Not on filein this encounter"
--- OUTSIDE RECORDS SUMMARY | ~2017-10-11 | XMS | Encounter Summary ---
Demographics + + + | Address | [address] | | | [place] [address] | + + + | Home Phone [...] Team Providers + +------+ + | Care Securities Teller Name | Role | Phone | + [...] Medical Records | | 2018 | | [facility] 6th | [address] | Review | | | | Floor [address] | [address] [place], | | | | | [place] Mailcode: CH6D | [place] [address] | | | | | [facility] | [phone] | | | | | and [address], 6th | | | | | | floor [place], [place] | | | | | | [address] | | | | | | [phone] | | | +--------+ + + + [...] | | | | | Amita Hines [place], | | | | | | [place] [address] | | | | | | [phone] | | | | | | | | +--------+---------+ + + + as of this encounter Visit Diagnoses Not on filein this encounter"
--- OUTSIDE RECORDS SUMMARY | ~2017-10-11 | XMS | Encounter Summary ---
Demographics + + + | Address | [address] | | | [place] [address] | + + + | Home Phone [...] Team Providers + +------+ + | Care Pipefitter Helper Name | Role | Phone | [...] | Encounter | Center at [facility] 6th | [address] | | | | | Floor [address] | Amita [facility], | | | | | Brig[place] Mailcode: CH6D | [place] [address] | | | | | [facility] | [phone] | | | | | and Healing, 6th | | | | | | floor [place], [place] | | | | | | [address] | | | | | | [phone] | | | +--------+ + + + [...] | | | | | Amita Hines [place], | | | | | | [place] [address] | | | | | | [phone] | | | | | | | | +--------+---------+ + + + as of this encounter Visit Diagnoses Not on filein this encounter"
--- OUTSIDE RECORDS SUMMARY | ~2017-10-11 | XMS | Encounter Summary ---
Demographics + + + | Address | [address] | | | [place] [address] | + + + | Home Phone [...] | 2018 | Visit | Center at [facility] 6th | [address] | (Primary Dx) | | | | Floor [address] | [place]mita Hines [place], | | | | | Brig[place] Mailcode: CH6D | [place] [address] | | | | | [facility] | [phone] | | | | | and Healing, 6th | | | | | | floor [place], [place] | | | | | | [address] | | | | | | [phone] | | | +--------+---------+ + + + [...] rectal bleeding on 07/19/16 went to the [facility] ED CT abdomen/pelvis with IV contrast [...] (10/05/16) no liver metastases rigid proctoscopy by ok (10/05/16) 6 cm from anal verge presented at the [facility] Multidisciplinary GI Oncology Conference [...] to Mendoza pouch staple line presented at [facility] Multidisciplinary GI Oncology Conference [...] MRI ([facility], 05/17/17) close to pelvic sidewall [facility] Multidisciplinary GI Oncology Conference [...] with primary anast omosis, placement of a 19-Mosotho Albert drain through the right lower quadrant [...] wit h primary anastomosis, placement of a 19-Mosotho Albert drain through the right lower quadrant [...] Return/Re-evaluation patient, I spent 19 minutes of lrft-dg-llhp time, of which m ore than half [...] | | | | | | [place] [address] | | | | | | [phone] | | | | | | | | +--------+---------+ + + + as of this encounter Visit Diagnoses + + | Diagnosis | + + | CA of rectum (HCC) - Primary | + + | Malignant neoplasm of rectum | + +
--- OUTSIDE RECORDS SUMMARY | ~2017-10-11 | XMS | Encounter Summary ---
Demographics + + + | Address | [address] | | | [place] [address] | + + + | Home Phone [...] Team Providers + +------+ + | Care Quilt Maker Name | Role | Phone | [...] | | Center at [facility] 6th | [address] | | | | | Floor [address] | [address] [place], | | | | | Brig[place] Mailcode: CH6D | [place] [address] | | | | | [facility] | [phone] | | | | | and [address], 6th | | | | | | floor [place], [place] | | | | | | [address] | | | | | | [phone] | | | +--------+ + + + [...] | | | | | Amita Hines [place], | | | | | | [place] [address] | | | | | | [phone] | | | | | | | | +--------+---------+ + + + as of this encounter Visit Diagnoses Not on filein this encounter"
--- OUTSIDE RECORDS SUMMARY | ~2017-10-11 | XMS | Encounter Summary ---
Demographics + + + | Address | [address] | | | [place] [address] | + + + | Home Phone [...] Team Providers + +------+ + | Care Chart Writer Name | Role | Phone | [...] | | 2017 | | Center at [facility] 6th | [address] | Received (UA | | | | Floor [address] | [place], | 07/14/2017) | | | | Brig[place] Mailcode: CH6D | [place] [address] | | | | | [facility] | [phone] | | | | | and [address], 6th | | | | | | floor [place], [place] | | | | | | [address] | | | | | | [phone] | | | +--------+ + + + [...] | | | | | | [place] [address] | | | | | | [phone] | | | | | | | | +--------+---------+ + + + as of this encounter Visit Diagnoses Not on filein this encounter"
--- OUTSIDE RECORDS SUMMARY | ~2017-10-11 | XMS | Encounter Summary ---
Demographics + + + | Address | [address] | | | [place] [address] | + + + | Home Phone [...] Providers + +------+ + | Care Radio Sportscaster Name | Role | Phone | + [...] | 2018 | Visit | Center at [facility] 6th | [address] | | | | | Floor [address] | Amita [facility], | | | | | Brig[place] Mailcode: CH6D | [place] [address] | | | | | [facility] | [phone] | | | | | and Healing, 6th | | | | | | floor [place], [place] | | | | | | [address] | | | | | | [phone] | | | +--------+---------+ + + + [...] | | | | | Amita Hines [place], | | | | | | [place] [address] | | | | | | [phone] | | | | | | | | +--------+---------+ + + + as of this encounter Visit Diagnoses Not on filein this encounter
--- OUTSIDE RECORDS SUMMARY | ~2017-10-11 | XMS | Encounter Summary ---
Demographics + + + | Address | [address] | | | [place] [address] | + + + | Home Phone [...] Team Providers + +------+ + | Care Elementary School Principal Name | Role | Phone | + [...] Medical Records | | 2018 | | [facility] 6th | [address] | Review | | | | Floor [address] | [address] [place], | | | | | Brig[place] Mailcode: CH6D | [place] [address] | | | | | [facility] | [phone] | | | | | and [address], 6th | | | | | | floor [place], [place] | | | | | | [address] | | | | | | [phone] | | | +--------+ + + + [...] | | | | | Amita Hines [place], | | | | | | [place] [address] | | | | | | [phone] | | | | | | | | +--------+---------+ + + + as of this encounter Visit Diagnoses Not on filein this encounter"
--- OUTSIDE RECORDS SUMMARY | ~2017-10-11 | XMS | Encounter Summary ---
Demographics + + + | Address | [address] | | | [place] [address] | + + + | Home Phone [...] Team Providers + +------+ + | Care Loading Unit Tool Setter Name | Role | Phone | [...] | 2018 | Encounter | Center at [facility] 6th | [address] | | | | | Floor [address] | Amita [facility] | | | | | Brig[place] Mailcode: CH6D | [place] [address] | | | | | [facility] | [phone] | | | | | and [address] 6th | | | | | | floor [place], [place] | | | | | | [address] | | | | | | [phone] | | | +--------+ + + + [...] | | | | | Amita Hines [place], | | | | | | [place] [address] | | | | | | [phone] | | | | | | | | +--------+---------+ + + + as of this encounter Visit Diagnoses Not on filein this encounter"
[~2017-10-11 15:21] MED LIST changes: +CIPRO500 MG PO; +FLAGYL500 MG PO
[2017-10-11] MEDS ORDERED: IRON240 MG PO (15:31)
[2017-12-01] MEDS ORDERED: OXYCODONE HCL5 MG PO (10:55)
[2017-12-01] MEDS ORDERED: ESCITALOPRAM OX10 MG PO (10:56)
[2017-12-01] MEDS ORDERED: TYLENOL EXTRA500 MG PO (10:57)
[2017-12-01] MEDS ORDERED: IBUPROFEN600 MG PO (10:57)
== END 2017-10-11 15:44 | disposition home or self-care (01) ==
LOC: ED 15:21
DX: M79.642 Pain in left hand (principal); W19.XXXA Unspecified fall, initial encounter

== ENCOUNTER 2017-12-09 06:50 | Day surgery (SDC) | payer OTHER ==
[~2017-12-09] VITALS: Ht 160 cm; Wt 79.1 kg
[~2017-12-09 06:50] MED LIST changes: +ESCITALOPRAM OX10 MG PO; +IBUPROFEN600 MG PO; +IRON240 MG PO; +OXYCODONE HCL5 MG PO; +TYLENOL EXTRA500 MG PO
--- NOTE | 2017-12-09 10:02 | NUR ---
12/09/17 Sheila Chong 0902 PT ARRIVED WITH ORAL AIRWAY IN PLACE AND REACTIVE. PT MOVING ARMS AND EYE OPEN OFF AND ON. RESP EVEN AND UNLABORED. 0954 ORAL AIRWAY REMOVED AND O2 DECREASED TO 6L VIA MASK. 1000 O2 MASK REMOVED. PT AWAKE OFF AND ON. RESP EVEN AND UNLABORED. PT DENIES PAIN AND NAUSEA. PT DENIES DIZZNESS.
--- NOTE | 2017-12-09 11:39 | [place] ---
[facility] [address], [place] [address] Signed DATE OF OPERATION: 12/09/2017 SURGEON: Carlos Posada MD PREOPERATIVE DIAGNOSES: 1. Right internal jugular Grev-W-Mptpmyvv. 2. Personal history of rectal cancer. POSTOPERATIVE DIAGNOSES: 1. Right internal jugular Ginc-S-Zbizeroi. 2. Personal history of rectal cancer. PROCEDURE: Removal of right internal jugular Npdk-A-Jvucqdtu. ESTIMATED BLOOD LOSS: None. INDICATIONS: Jenn is a 57-year-old female, who came in June of 2016 with a large pelvic mass and abscess. She underwent a laparotomy and drainage of the pelvic abscess. She also had creation of a left lower quadrant colostomy. Her colonoscopy came then in August 2016 with a right posterior lateral circumferential rectal tumor at about 6 cm. She also had a few polyps removed along with some diverticulosis. She went through her chemo and radiation therapy. And then went through a rather large pelvic surgery involving extensive lysis of adhesions with removal of the entire rectum via the intersphincteric plane along with removal of left ovary, left fallopian tube and the posterior vaginal wall. The vagina had been repaired primarily. She had a small bowel resection as well. The fistula tract from her previous drain was also removed. She has actually done very well following the surgery. She has gained back quite a bit of her weight and she looks and feels much better. It was recommended by our treatment team that she now have her Gekf-D-Stzqwazf removed. In the office, I explained to Jenn the nature of that surgery. She understands there is risk including, but not limited to, bleeding, infection, scarring, change in contour of the skin, catheter embolization requiring retrieval as well as air embolization. She had expressed understanding and wished to proceed. PROCEDURE NOTE: I met with Jenn in her preop area. It was very easy to identify the right internal jugular catheter and the Fytl-I-Leaqwoqh hub on her right chest wall. She was then taken in the operating room and placed in the supine position under general LMA Electronically Signed By: CARLOS POSADA MD 12/09/17 1139 PATIENT NAME: JENN BYRNES OPERATIVE REPORT DATE OF : 56 REPORT #: [id number] PHYSICIAN: CARLOS POSADA MD PCP: FEDERICO LOPEZ DO REPORT IS CONFIDENTIAL AND NOT TO BE RELEASED WITHOUT AUTHORIZATION [facility] [address], [place] [address] Signed anesthesia. She was given preoperative antibiotics along with subcutaneous heparin. SCDs were utilized. She was then placed in slight reverse Trendelenburg position and local anesthetic was injected in and around the catheter hub. Her previous oblique incision was opened sharply with a knife and carried down around the catheter hub with the help of the cautery. The entire pseudocapsule and hub were completely freed of all surrounding tissue. We were able to gently withdraw short distance of her catheter and then we placed a 2-0 Prolene pursestring around the sheath of her pseudocapsule sheath around the catheter itself. The entire catheter was removed and the pursestring was tied down without any air embolization or back flow of blood. The entire catheter was then tacked including the radiographic tip. After this, the chest wall was irrigated and suctioned out until clear. The dermis was reapproximated with interrupted 3-0 subcuticular Monocryl sutures. The skin edges were reapproximated with running 6-0 fast absorbing plain gut suture. Dry gauze and tape were then applied. Jenn was then awakened from her anesthesia, extubated in the OR, and taken to recovery room in stable condition. Carlos Posada MD ALB/MODL /[id number] cc: MD Ailyn Ceballos, MD Mike Helton, MD Carlos Posada, MD Cristofer Chi MD Copies: NAYANA KAHN MD,AILYN HELTON,CARLOS REESE MD, MD Electronically Signed By: CARLOS POSADA MD 12/09/17 1139 PATIENT NAME: JENN BYRNES OPERATIVE REPORT DATE OF : 56 REPORT #: [id number] PHYSICIAN: CARLOS POSADA MD PCP: FEDERICO LOPEZ DO REPORT IS CONFIDENTIAL AND NOT TO BE RELEASED WITHOUT AUTHORIZATION [facility] [address] [place] [address] [address] [place] [address] Signed CRISTOFER CHI MD ~ Electronically Signed By: CARLOS POSADA MD 12/09/17 1139 PATIENT NAME: JENN BYRNES OPERATIVE REPORT DATE OF : 56 REPORT #: [id number] PHYSICIAN: CARLOS POSADA MD PCP: FEDERICO LOPEZ DO REPORT IS CONFIDENTIAL AND NOT TO BE RELEASED WITHOUT AUTHORIZATION
== END 2017-12-09 10:47 | disposition home or self-care (01) ==
LOC: DS 06:50
PROVIDERS: Colon & Rectal Surgery
PROC: 0JPT0XZ Removal of Tunneled Vascular Access Device from Trunk Subcutaneous Tissue and Fascia, Open Approach (ICD-10-PCS; principal; 2017-12-09 08:45)
DX: Z45.2 Encounter for adjustment and management of vascular access device (principal); I10 Essential (primary) hypertension; E78.5 Hyperlipidemia, unspecified; K21.9 Gastro-esophageal reflux disease without esophagitis; G89.29 Other chronic pain; Z85.048 Personal history of other malignant neoplasm of rectum, rectosigmoid junction, and anus; Z87.891 Personal history of nicotine dependence; Z88.5 Allergy status to narcotic agent; Z98.890 Other specified postprocedural states; Z79.899 Other long term (current) drug therapy
CPT/HCPCS: 00532; J0690; J1100; J1644; J1885; J2250; J2405; J2704; J2765; J3010; J7120

== ENCOUNTER 2018-04-15 10:45 | Emergency (ER) | payer OTHER ==
[~2018-04-15] VITALS: Ht 160 cm; Wt 79.1 kg
--- OUTSIDE RECORDS SUMMARY | ~2018-04-15 | XMS | Encounter Summary ---
Demographics + + + | Address | [address] | | | [place] [address] | + + + | Home Phone | | + + + | Preferred Language | Unknown | + + + | Marital Status | Single | + + + | Rastafari Affiliation | NON | + + + [...] Phone | + + +---------+ + | SAARH [place] | ECON | Unknown | | + + +---------+ + Care Team Providers + +------+ + | Care Pig Iron Loader Name | Role | Phone | + +------+ + | Kristian Anderson DO | PCP | | + +------+ + Encounter Details +--------+ + + + + | Date | Type | Department | Care Team | Description | +--------+ + + + + | 03/29/ | MyChart | Wound and Ostomy | Delores Avilez | appointment | | 2018 | Encounter | Care [address] | [address] | | | | | [facility] | [place], | | | | | Physicians [place] | [place] [address] | | | | | [phone] | | | | | | [place], [place] | | | | | | [address] | | | | | | [phone] | | | +--------+ + + + [...] as of this encounter Plan of Treatment +--------+ + + + + | Date | Type | Specialty | Care Team | Description | +--------+ + + + + | 05/29/ | Office | Surgery | Ailyn Wolff MD | | | 2018 | Visit | | [address] | | | | | | [place] [facility], | | | | | | [place] [address] | | | | | | [phone] | | | | | | | | +--------+ + + + + | 05/29/ | Appointment | Wound Ostomy | Delores Avilez | | | 2018 | | | [address] | | | | | | [place]a H[place], | | | | | | [place] [address] | | +--------+ + + + + as of this encounter Visit Diagnoses Not on filein this encounter"
--- OUTSIDE RECORDS SUMMARY | ~2018-04-15 | XMS | Clinical Summary ---
Demographics + + + | Address | [address] | | | [place] [address] | + + + | Home Phone | | + + + | Preferred Language | Unknown | + + + | Marital Status | | + + + | Rastafari Affiliation | Unknown | + + + | Race | Unknown | + + + | Ethnic Group | Unknown | + + + Author + + + | Author | [facility] | | | and [place] | + + + | Organization | [facility] | | | and [place] | + + + | Address | Unknown | + + + | Phone | Unavailable | + + + Support + + + + + | Name | Relationship | Address | Phone | + + + + + | Lamar Phillips | ECON | [place] [address] | | + + + + + Care Team Providers + +------+ + | Care Dry Cure Worker Name | Role | Phone | + +------+ + | Kristian Anderson DO | PP | | + +------+ + Allergies + + + + + + | Active Allergy | Reactions | Severity | Noted | Comments | | | | | Date | | + + + + + + | Na Ferric Gluc Cplx | Nausea Only, Other | Low | 11/16/19 | Flushing and | | In Sucrose | (See Comments) | | 17 | diaphoretic | + + + + + + | Propoxyphene | | | 10/19/19 | | | | | | 17 | | + + + + + + Current Medications + + +--------+---------+------+------+-------+ | Prescription | Sig. | Disp. | Refills | Star | End | Statu | | | | | | t | Date | s | | | | | | Date | | | + + +--------+---------+------+------+-------+ | buPROPion | Take 300 mg by mouth | | | | | Activ | | (WELLBUTRIN SR) 150 | Daily. | | | | | e | | mg 12 hr tablet | | | | | | | + + +--------+---------+------+------+-------+ | clobetasol | Apply topically | | | | | Activ | | (TEMOVATE) 0.05% | Once a week. | | | | | e | | ointment | | | | | | | + + +--------+---------+------+------+-------+ | nystatin | Apply topically as | | | | | Activ | | (MYCOSTATIN) powder | needed. | | | | | e | + + +--------+---------+------+------+-------+ | ascorbic acid | Take 1,000 mg by | | | | | Activ | | (VITAMIN C) 500 mg | mouth Daily. | | | | | e | | tablet | | | | | | | + + +--------+---------+------+------+-------+ | ibuprofen (ADVIL, | Take 200 mg by mouth | | | | | Activ | | MOTRIN) 200 mg | every 6 hours as | | | | | e | | tablet | needed for Pain. | | | | | | + + +--------+---------+------+------+-------+ | Multiple | Take by mouth. | | | | | Activ | | Vitamins-Minerals | | | | | | e | | (MULTIVITAMIN ADULT | | | | | | | | PO) | | | | | | | + + +--------+---------+------+------+-------+ | ALPRAZolam (XANAX) | Bring with to | 2 | 0 | 05/2 | | Activ | | 0.5 mg tablet | scheduled MRI, take | tablet | | 5/20 | | e | | | one tablet 30 | | | 17 | | | | | minutes before MRI, | | | | | | | | may repeat as | | | | | | | | needed. | | | | | | + + +--------+---------+------+------+-------+ | ondansetron | Take 8 mg by mouth | | | | | Activ | | (ZOFRAN ODT) 8 mg | every 8 hours as | | | | | e | | disintegrating | needed for Nausea. | | | | | | | tablet | | | | | | | + + +--------+---------+------+------+-------+ | oxyCODONE | Take 5 mg by mouth | | | | | Activ | | (ROXICODONE) 5 mg | every 6 hours as | | | | | e | | tablet | needed for Pain. | | | | | | + + +--------+---------+------+------+-------+ | acetaminophen | Take 1,000 mg by | | | | | Activ | | (TYLENOL) 500 mg | mouth every 6 hours | | | | | e | | tablet | as needed for Pain. | | | | | | | | Take prior to | | | | | | | | oxycodone as needed | | | | | | | | for pain. | | | | | | + + +--------+---------+------+------+-------+ | LORazepam (ATIVAN) | Take 1 tablet by | 60 | 2 | 01/3 | | Activ | | 1 mg tablet | mouth every 6 hours | tablet | | 0/20 | | e | | | as needed for | | | 18 | | | | | Anxiety | | | | | | | | (Nausea/vomiting/res | | | | | | | | tlessness). | | | | | | + + +--------+---------+------+------+-------+ | escitalopram | Take 10 mg by mouth | | | | | Activ | | (LEXAPRO) 10 mg | Daily. | | | | | e | | tablet | | | | | | | + + +--------+---------+------+------+-------+ | FERROUS GLUCONATE | Take 27 mg by mouth | | | | | Activ | | PO | Daily. | | | | | e | + + +--------+---------+------+------+-------+ | POTASSIUM CHLORIDE | Take 20 mEq by | | | | | Activ | | REENA ER PO | mouth. | | | | | e | + + +--------+---------+------+------+-------+ Active Problems + + + | Problem | Noted Date | + + + | Lichen sclerosus | 11/01/2016 | + + + + + | Overview: ACTIVE DIAGNOSIS: Lichen Sclerosis of the Vulva.1. | | Presentation with Dyspareunia in February 2010.2. PAP and vulvar | | biopsy March 19, 2010 (Rene). Pathological specimens; PAP | | #[id number] "negative for intraepithelial lesions or malignancy." | | Biopsy #[id number] "freatures consistent with lichen | | sclerosis."3. Treatment with clobetasol 0.05% with improvement.4. | | Consultation by Dr. Rossana Knowles, June 2016-[facility] | | sclerosis exacerbated by urinary and fecal incontinence. | + + + + + | Rectal cancer (HCC) | 10/01/2016 | + + + + + | Overview: ACTIVE DIAGNOSIS: Locally Advanced Rectal Cancer, | | [id number], Stage IIA. Willie Barajas presented to the [facility] emergency room on July 20, 2016 with a three-year | | history of intermittent rectal bleeding, 35 pound weight loss, | | fevers, and a sudden onset of bright red blood per rectum. | | Laboratory evaluation was notable for hemoglobin of 9.7 g/dL, | | hematocrit of 31.7%, white count of 30,000, and a platelet count | | of 600,000. CT scan of the abdomen and pelvis with contrast was | | performed and demonstrated an 11 cm complex mass filling the | | pelvis consistent with soft tissue, as well as multiple loculated | | fluid collections and multiple gas bubbles which appear to arise | | from the bowel. The patient was promptly evaluated by Dr. | | Marty Thacker who immediately performed a laparotomy with drainage | | of the pelvic abscess, placement of a Hong-Jasmine drain, and | | performed a left lower quadrant colostomy for diversion. No | | pathological samples were obtained from this procedure. The | | patient was discharged and allowed to recover.2. Repeat | | evaluation by Dr. Thacker with colonoscopy on September 02, 2016 | | included a rigid proctoscopy that demonstrated a circumferential | | rectal tumor at 6 cm within the rectum. Biopsy specimen number | | [id number] evaluated by Dr. Felipe Nixon of [facility] | | Pathology was notable for a tubular adenoma without high-grade | | dysplasia or overt carcinoma. This procedure also included a | | full colonoscopy through the ostomy were 2 additional polyps were | | removed, a tubular adenoma at 35 cm and a hyperplastic polyp at | | [address] C/A/P at [facility] in [place], [place] | | demonstrated no evidence of metastatic disease.4. On September 22 | | 2016 Dr. Thacker placed in internal jugular Port-A-Cath without | | complications.5. MRI of pelvis performed on October 05, 2016 at | | [facility]: Rectal mass 7.7 cm x 6.2 cm x 9.6 cm in length located | | within 3 cm of the anal sphincter and 6.4 cm from the anal verge | | with radiographic extension though multiple areas of the bowel | | wall.6. CT abdomen/pelvis also at [facility] October 05, 2016; large | | almost completely circumferential rectosigmoid mass better | | delineated on the corresponding MRI with adjacent probable | | abscess. No distant metastases identified.7. On October 14, 2016 | | Paulette was evaluated by Dr. Ailyn Wolff and Dr. Shea Mcneill of the | | [facility] where her case was presented | | to their tumor board. Clinical exam is notable for an overt | | rectal carcinoma invading into the vagina. 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 Concerns raised by the [facility] | | and [facility] Tumor Board were that the prior placement | | of the drain through the tumor had increased the patient's risk | | of carcinomatosis and dissemination of her tumor, and recommended | | that she begin her therapy with 6 cycles of FOLFOX chemotherapy | | before crossing over to combined modality chemoradiation therapy | | to be followed by a pelvic exenteration.8. Cycle #1 FOLFOX, September | | 2016.9. Exam under anesthesia, multiple large biopsies | | (Kirstie) October 27, 2016; "a digital rectal exam was performed and I | | could easily palpate the tumor with my index finger. We used our | | bronchoscopy biopsy forceps to take multiple large pieces of | | tissue for pathological review as well as mutation analysis." | | Pathological Specimen #[id number] (Linwood Nixon | | Pathology). Tubulovillous adenoma with high grade dysplasia and | | focal intraepithelial carcinoma. "This is highly suspicious for | | invasive malignancy. Presence of absence of an invasive lesion | | cannot be established with certainty."10. Cycles # 2 - 6 FOLFOX | | November 01, 2016 - January 10, 2017.11. MRI Pelvis January 03, 2017; | | Interval decreased size of the large rectosigmoid mass now | | measuring 7.2 x 6.1 x 4.7 cm at greatest dimension.12. CT | | chest/abdomen/pelvis January 04, 2017; Significant interval | | decreased size of the previously described large rectosigmoid | | mass including multiple exophytic components.13. December 31 | | 2016-February 17, 2017; combined modality chemoradiation therapy with | | CIVI 5FU at 225 mg/m /day given concurrently with 4500 cGy of | | external beam radiation.14. Multidisciplinary Care Team | | Conference at [facility] March 10, 2017; "Given borderline | | resectability, give 6 more cycles of FOLFOX, restage with MRI, | | followed by posterior exenteration (abdominoperineal resection, | | hysterectomy, posterior vaginectomy, and VRAM). Low anterior may | | not be able to resect all of this. She may need intraop radiation | | therapy."15. Cycle # 7 FOLFOX March 21, 2017.16. Cycle #8 | | FOLFOX April 04, 2017.17. Cycle #9 FOLFOX April 18, | | 2016.18. Cycle #10 FOLFOX May 02, 2017.19. Chemotherapy | | interrupted on May 16, 2017 due to worsening pelvic | | abscess.20. June 30, [address] Ailyn Wolff at the | | [facility]: 06/30/17: Exploratory laparotomy. Extensive lysis of | | adhesions. Excision of left lower quadrant fistula tract. Total | | mesorectal excision, intersphincteric abdominoperineal resection, | | en bloc resection of left ovary and left fallopian tube and | | posterior vaginal wall. Placement of a 19-Kiswahili Albert drain | | through the right lower quadrant wall in the presacral space | | (subsequently removed). Cystoscopy and bilateral ureteral stent | | placement by Urology. Primary repair of posterior vaginal defect. | | Small bowel resection with primary anastomosis. Pathological | | analysis demonstrated residual invasive adenocarcinoma with the | | inked radial resection margin focally positive for carcinoma and | | eleven lymph nodes negative for carcinoma.21. Gynecological exam | | on August 12, 2017; Dr. [facility], [place], | | [place]; positive for perianal fistula between anus and vagina.22. | | Clinical exam on August 22, [address] Ailyn Wolff at [facility] who could | | not confirm the presence of perianal fistula.23. Cycle # 11 | | FOLFOX on August 23, 2017.24. Cycle #12 FOLFOX on September 05, | | 2018.25. Port-a-cath removed by Dr. Marty Thacker.26. CT | | chest/abdomen/pelvis ([facility], [place]) on September 26, 2017; marked | | reduction of large central rectal/perirectal mass, very small | | residual fluid collection with adjacent fat stranding which may | | represent short residual Velasquez's pouch, residual postoperative | | fluid or residual necrotic tumor.27. MRI of pelvis September 28, 2017 | | ([facility], [place], [place]); Small gas and fluid collection in the | | presacral space, concerning for abscess formation. Postoperative | | changes of low anterior resection, with left lower quadrant end | | colostomy. Left lower quadrant parastomal hernia. Last | | Assessment & Plan: Paulette Byrnes returned to clinic on | | 01/02/2018 with a applications administrator for follow up of her locally advanced | | rectal cancer.Interval history is notable for the fact that | | Kirstie electively removed Paulette's port-a-cath.Interval history is | | also notable for the fact that Paulette had an encounter with her | | surgeon, Dr. Ailyn Wolff at [facility]. Dr. Wolff has asked Paulette to follow up | | with him in [place] every three months.Assessment; Locally | | advanced rectal cancer, status post 10 cycles of neoadjuvant | | FOFLOX, followed by definitive surgery on May 16, 2017, | | followed by two adjuvant cycles of FOLFOX completed on August | | 2017.Plan; Paulette will follow up with Dr. Wolff in [place] every | | three months. Currently, follow-up in medical oncology is open. | + + Family History + + +------+ + | Medical History | Relation | Name | Comments | + + +------+ + | Cancer | Mother | | Breast | + + +------+ + + +------+--------+ + | Relation | Name | Status | Comments | + +------+--------+ + | Mother | [...] + + + | Blood Pressure | 112/82 | 01/02/20181525 PDT | + + + + | Pulse | 84 | 01/02/20181525 PDT | + + + + | Temperature | 36.8 C (98.3 F) | 01/02/20181525 PDT | + + + + | Respiratory Rate | 16 | 01/02/20181525 PDT | + + + + | Oxygen Saturation | 96% | 01/02/20181525 PDT | + + + + | Inhaled Oxygen | - | - | | Concentration | | | + + + + | Weight | 83.5 kg (184 lb 1.4 | 01/02/2018 1507 PDT | | | oz) | | + + + + | Height | 162.6 cm (5' 4") | 10/18/2016 1104 PDT | + + + + | Body Mass Index | 31.6 | 01/02/2018 1507 PDT | + + + + Plan of Treatment + + + + + | Health Maintenance | Due Date | Last Done | Comments | + + + + + | Hepatitis C | | | | | Screening | 9 | | | + + + + + | Vaccine: | | | | | Dtap/Tdap/Td (1 - | 8 | | | | Tdap) | | | | + + + + + | Vaccine: | | | | | Pneumococcal 19-64 | 8 | | | | Highest Risk (1 of 3 | | | | | - PCV13) | | | | + + + + + | Cervical Cancer | | | | | Screening (Pap) | 9 | | | + + + + + | BREAST CANCER | | | | | SCREENING (MAMM Q2 | 9 | | | | YEARS 50-74) | | | | + + + + + | Colorectal Cancer | | | | | Screening | 9 | | | | (Colonoscopy) | | | | + + + + + | Lung Cancer | | 01/03/2017, 09/17/2016 | | | Screening | 8 | | | + + + + + | Vaccine: Influenza | | 08/06/2017 | | | (#1) | 8 | | | + + + + + Results Not on filefrom Last 3 Months Insurance + +--------+ +--------+ +---------+ | Payer | Benefi | Subscriber | Type | Phone | Address | | | t Plan | ID | | | | | | / | | | | | | | Group | | | | | + +--------+ +--------+ +---------+ | [employer] | MODA | [id number] | Medica | [phone] | | MEDICAID HMO | HEALTH | | id | [id number] | | | | MDCD | | | | | | | [place]MO [place] | | | | | + +--------+ +--------+ +---------+ + +--------+ +--------+ + + | Guarantor Name | Accoun | Relation to | Date | Phone | Billing Address | | | t Type | Patient | of | | | | | | | | | | + +--------+ +--------+ + + | PAULETTE BYRNES | Person | Self [birth year] Home: | [address] | | | al/Fam | | [phone] | [phone] [address] | | | [place] | | | [phone] | [place] [address] | + +--------+ +--------+ + +
--- OUTSIDE RECORDS SUMMARY | ~2018-04-15 | XMS | Clinical Summary ---
Demographics + + + | Address | [address] | | | [place] [address] | + + + | Home Phone | | + + + | Preferred Language | Unknown | + + + | Marital Status | | + + + | Scientologist Affiliation | Unknown | + + + | Race | Unknown | + + + | Ethnic Group | Unknown | + + + Author + + + | Author | [facility] | + + + | Organization | [facility] | + + + | Address | Unknown | + + + | Phone | Unavailable | + + + Support + + +---------+ + | Name | Relationship | Address | Phone | + + +---------+ + | Erika Phillips | ECON | Unknown | | + + +---------+ + Care Team Providers + +------+ + | Care Backwinder Name | Role | Phone | + [...] | | | | | (#1) | 8 | [...] +------+-------+ + | MEDICAID | MEDICA | [id number] | | | [address] | | | ID | | | | [place] | | | [place] | | | | [address] | + +--------+ +------+-------+ + + +--------+ [...] [address] | | | al/Fam | | [phone] | [address] [place], | | | [place] | | | [phone] | [place] [address] | + +--------+ +--------+ + +"
--- OUTSIDE RECORDS SUMMARY | ~2018-04-15 | XMS | Encounter Summary ---
Demographics + + + | Address | [address] | | | [place] [address] | + + + | Home Phone [...] Team Providers + +------+ + | Care Assembly Manager Name | Role | Phone | + +------+ + | Kristian Anderson DO | PCP | | + +------+ + Encounter Details +--------+ + + + + | Date | Type | Department | Care Team | Description | +--------+ + + + + | 03/30/ | MyChart | Wound and Ostomy | [facility] | RE:05-29 Appt | | 2018 | Encounter | Care [address] | [address] | | | | | [facility] | [place], | | | | | Physicians [place] | [place] [address] | | | | | [phone] | | | | | | [place], [place] | | | | | | [address] | | | | | | [phone] | | | +--------+ + + + [...] | | | | | [place], | | | | | | [place] [address] | | | | | | [phone] | | | | | | | | +--------+ + + + + | 05/29/ | Appointment | Wound Ostomy | [facility] | | | 2018 | | | [address] | | | | | | [place], | | | | | | [place] [address] | | +--------+ + + + + as of this encounter Visit Diagnoses Not on filein this encounter"
--- OUTSIDE RECORDS SUMMARY | ~2018-04-15 | XMS | Encounter Summary ---
Demographics + + + | Address | [address] | | | [place] [address] | + + + | Home Phone [...] Team Providers + +------+ + | Care Egg Factory Worker Name | Role | Phone | + +------+ + | Kristian Anderson DO | PCP | | + +------+ + Encounter Details +--------+ + + + + | Date | Type | Department | Care Team | Description | +--------+ + + + + | 02/20/ | Hospital | Wound and Ostomy | [facility] | | | 2018 | Encounter | Care [address] | [address] | | | | | [facility] | [facility] | | | | | [facility] [place] | [place] [address] | | | | | [phone] | | | | | | [place], [place] | | | | | | [address] | | | | | | [phone] | | | +--------+ + + + [...] + + + as of this encounter Medications at Time of Discharge + + +--------+---------+ + + | Medication | Sig. | Disp. | Refills | Start | End Date | | | | | | Date | | + + +--------+---------+ + + | acetaminophen 500 | Take 2 tablets by | | | 07/05/20 | | | mg oral | mouth every six | | | 17 | | | tabletIndications: | hours. Indications: | | | | | | Pain | Pain | | | | | + + +--------+---------+ + + | ASCORBIC ACID | Take 1 tablet by | | | | | | (VITAMIN C ORAL) | mouth once daily. | | | | | + + +--------+---------+ + + | buPROPion SR 150 | Take 150 mg by mouth | | | | | | mg oral tablet | once daily in the | | | | | | extended release | morning. | | | | | + + +--------+---------+ + + | clobetasol 0.05 % | Apply to affected | | | | | | topical ointment | area | | | | | + + +--------+---------+ + + | escitalopram | Take by mouth. | | | | | | oxalate 10 mg oral | | | | | | | tablet | | | | | | + + +--------+---------+ + + | ferrous gluconate | Take 27 mg by mouth | | | | | | 325 mg (36 mg iron) | two times daily. | | | | | | oral tablet | | | | | | + + +--------+---------+ + + | ibuprofen 600 mg | Take 600 mg by mouth | | | | | | oral tablet | every six hours as | | | | | | | needed. | | | | | + + +--------+---------+ + + | methocarbamol 750 | | | | 02/19/20 | | | mg oral tablet | | | | 18 | | + + +--------+---------+ + + | MULTIVITAMIN ORAL | Take by mouth. | | | | | + + +--------+---------+ + + | oxybutynin CR 10 | | | | 02/14/20 | | | mg oral tablet | | | | 18 | | | extended release | | | | | | | 24hr | | | | | | + + +--------+---------+ + + | oxyCODONE | Take 1 tablet by | 120 | 0 | 07/27/19 | | | (immediate release) | mouth every six | tablet | | 18 | | | 5 mg oral tablet | hours as needed for | | | | | | | up to 120 doses. | | | | | + + +--------+---------+ + + | potassium chloride | Take 20 mEq by mouth | | | | | | 20 mEq oral packet | once daily. | | | | | + + +--------+---------+ + + as of this encounter Plan of Treatment +--------+ + + + + | Date | Type | Specialty | Care Team | Description | +--------+ + + + + | 05/29/ | Office | Surgery | Ailyn Wolff MD | | | 2017 | Visit | | [address] | | | | | | [place] | | | | | | [place] [address] | | | | | | [phone] | | | | | | | | +--------+ + + + + | 05/29/ | Appointment | Wound Ostomy | [facility] | | | 2017 | | | [address] | | | | | | [place] | | | | | | [place] [address] | | +--------+ + + + + as of this encounter Visit Diagnoses Not on filein this encounter"
--- OUTSIDE RECORDS SUMMARY | ~2018-04-15 | XMS | Clinical Summary ---
Demographics + + + | Address | [address] | | | [place] [address] | + + + | Home Phone | | + + + | Preferred Language | Unknown | + + + | Marital Status | | + + + | Spiritism Affiliation | Unknown | + + + | Race | Unknown | + + + | Ethnic Group | Unknown | + + + Author + + + | Author | [facility] | + + + | Organization | [facility] | + + + | Address | Unknown | + + + | Phone | Unavailable | + + + Support + + +---------+ + | Name | Relationship | Address | Phone | + + +---------+ + | Erika Phillips | ECON | Unknown | | + + +---------+ + Care Team Providers + +------+ + | Care Net Developer With [employer] Name | Role | Phone | + [...] +------+-------+ + | MEDICAID | MEDICA | [id number] | | | [address] | | | ID | | | | [place] | | | [place] | | | | [address] | + +--------+ +------+-------+ + + +--------+ [...] | | | [place] | | | [phone] | [place] [address] | + +--------+ +--------+ + +"
--- OUTSIDE RECORDS SUMMARY | ~2018-04-15 | XMS | Encounter Summary ---
Demographics + + + | Address | [address] | | | [place] [address] | + + + | Home Phone [...] Team Providers + +------+ + | Care Tongue And Quarter Stitcher Name | Role | Phone | + [...] Lab Results | | 2018 | | Center at [facility] | [address] | | | | | Floor [address] | [place], | | | | | [place] Mailcode: CH6D | [place] [address] | | | | | [facility] | [phone] | | | | | and [address], [address] | | | | | | floor [place], [place] | | | | | | [address] | | | | | | [phone] | | | +--------+ + + + [...] | | | | | | [place], | | | | | | [place] [address] | | | | | | [phone] | | | | | | | | +--------+ + + + + | 05/29/ | Appointment | Wound Ostomy | [facility] | | | 2017 | | | [address] | | | | | | [place], | | | | | | [place] [address] | | +--------+ + + + + as of this encounter Visit Diagnoses Not on filein this encounter"
--- OUTSIDE RECORDS SUMMARY | ~2018-04-15 | XMS | Encounter Summary ---
Demographics + + + | Address | [address] | | | [place] [address] | + + + | Home Phone [...] Team Providers + +------+ + | Care Hydrogen Power Plant Manager Name | Role | Phone | [...] + +--------+ + + + + | Authorized | | Surgery | | Non-[facility] | Ailyn Wolff, | | | | | | Epic Dept | [address] | | | | | [address] | | | | | | | [place] | | | | | | | [place], [place] | | | | | | | [address] | | | | | | | Phone: | | | | | | | [phone] | | | | | | | Fax: | | | | | | | [phone] | + +--------+ + + + + Encounter Details +--------+---------+ + + + | Date | Type | Department | Care Team | Description | +--------+---------+ + + + | 02/20/ | Office | Digestive Health | Ailyn Wolff MD | CA of rectum (HCC) | | 2018 | Visit | Center at [facility] 6th | [address] | (Primary Dx) | | | | Floor [address] | [place], | | | | | Ave Mailcode: CH6D | [place] [address] | | | | | [facility] | [phone] | | | | | and Healing, 6th | | | | | | floor [place], [place] | | | | | | [address] | | | | | | [phone] | | | +--------+---------+ + + + [...] Pressure | 144/76 | 02/20/2018 1:57 PM PDT | + + + + | Pulse | 87 | 02/20/2018 1:57 PM PDT | + + + + | Temperature | 36.6 C (97.9 F) | 02/20/2018 1:57 PM PDT | + + + + | Respiratory Rate | 18 | 02/20/2018 1:57 PM PDT | + + + + | Oxygen Saturation | - | - | + + + + | Inhaled Oxygen | - | - | | Concentration | | | + + + + | Weight | 85.7 kg (189 lb) | 02/20/2018 1:57 PM PDT | + + + + | Height | 160 cm (5' 3") | 02/20/2018 1:57 PM PDT | + + + + | Body Mass Index | 33.48 | 02/20/2018 1:57 PM PDT | + + + + in this [...] Patient Instructions - Ailyn Wolff MD - 02/20/2018 1:40 PM PDTPlan: CEA today. See me back in 3 months. Due for colonoscopy in 06/2018in this encounter Progress Notes Emily Gresham MA - 02/20/2018 1:40 PM PDTExamination chaperoned by Emily Levi CMA. Ailyn Wolff MD - 02/20/2018 1:40 PM PDTCOLON AND RECTAL SURGERY Attending Clinic Note Established Patient Assessment: 57 y.o. female with htn, elevated lipids, heartburn, nephrolithiasis, and lichen sclerosus endoscopically obstructing mriT4 N0 M0 rectal mass (6 cm from verge) invading vagina rectal urgency and a lot of rectal bleeding on 07/19/16 went to the [facility] ED CT abdomen/pelvis with IV contrast [...] (10/05/16) no liver metastases rigid proctoscopy by mn (10/05/16) 6 cm from anal verge presented at the [facility] Multidisciplinary GI Oncology Conference on [...] to Mendoza pouch staple line presented at [facility] on 03/10/17. Given [...] MRI (OSH, 05/17/17) close to pelvic sidewall [facility] Multid[facility] Conference (06/02/17) Recommendations with [...] resection with primary anastomosis, placement of a 19-Chinese Albert [...] resection with primary anastomosis, placement of a 19-Chinese Albert [...] Return/Re-evaluation patient, I spent 12 minutes of gbya-vz-wzhz time, of which m ore than half the time was spent in counseling. 13 minute document reviewin this encounter Plan of Treatment +--------+ + + + + | Date | Type | Specialty | Care Team | Description | +--------+ + + + + | 05/29/ | Office | Surgery | Ailyn Wolff MD | | | 2017 | Visit | | [address] | | | | | | [place], | | | | | | [place] [address] | | | | | | [phone] | | | | | | | | +--------+ + + + + | 05/29/ | Appointment | Wound Ostomy | Delores Avilez | | | 2017 | | | [address] | | | | | | [place], | | | | | | [place] [address] | | +--------+ + + + + as of this encounter Results CARCINOEMBRYONIC AG, SERUM (02/20/2018 2:33 PM) + +-------+ + + | Component | Value | Ref Range | Performed At | + +-------+ + + | CEA-CARCINOEMBRYONIC | 1.3 | <=2.5 ng/mL | [facility] | | AG, SERUM | | | SERVICES, CORE | + +-------+ + + + + | Specimen | + + | Blood - Blood | + + + + + + + | Performing | Address | City/State/Zipcode | Phone Number | | Organization | | | | + + + + + | [facility] | [address] | [place] [address] | | | SERVICES, CORE | [address] | | | + + + + + in this encounter Visit Diagnoses + + | Diagnosis | + + | CA of rectum (HCC) - Primary | + + | Malignant neoplasm of rectum | + +
--- OUTSIDE RECORDS SUMMARY | ~2018-04-15 | XMS | Encounter Summary ---
Demographics + + + | Address | [address] | | | [place] [address] | + + + | Home Phone [...] Providers + +------+ + | Care Residential Mental Health Worker Name | Role | Phone | [...] | | 2018 | | Center at [facility] 6th | [address] | | | | | Floor [address] | [place], | | | | | [place] Mailcode: CH6D | [place] [address] | | | | | [facility] | [phone] | | | | | and [place], 6th | | | | | | floor [place], [place] | | | | | | [address] | | | | | | [phone] | | | +--------+ + + + [...] | | | | | | [place] [address] | | | | | | [phone] | | | | | | | | +--------+ + + + + | 05/29/ | Appointment | Wound Ostomy | Delores Avilez | | | 2017 | | | [address] | | | | | | [place], | | | | | | [place] [address] | | +--------+ + + + + as of this encounter Visit Diagnoses Not on filein this encounter"
--- OUTSIDE RECORDS SUMMARY | ~2018-04-15 | XMS | Encounter Summary ---
Demographics + + + | Address | [address] | | | [place] [address] | + + + | Home Phone [...] Providers + +------+ + | Care Quality Assurance Supervisor Name | Role | Phone | [...] | Encounter | Center at [facility] 6th | [address] | | | | | Floor [address] | [place] [facility] | | | | | [place] Mailcode: CH6D | [place] [address] | | | | | [facility] | [phone] | | | | | and Healing, 6th | | | | | | floor [place], [place] | | | | | | [address] | | | | | | [phone] | | | +--------+ + + + [...] | | | | | | [place] [address] | | | | | | [phone] | | | | | | | | +--------+ + + + + | 05/29/ | Appointment | Wound Ostomy | Delores Avilez | | | 2018 | | | [address] | | | | | | [place], | | | | | | [place] [address] | | +--------+ + + + + as of this encounter Visit Diagnoses Not on filein this encounter"
--- OUTSIDE RECORDS SUMMARY | ~2018-04-15 | XMS | Encounter Summary ---
Demographics + + + | Address | [address] | | | [place] [address] | + + + | Home Phone [...] Team Providers + +------+ + | Care Bedspread Cutter Name | Role | Phone | [...] | | | | | | | [place], [place] | | | | | | | [address] | | | | | | | Phone: | | | | | | | [phone] | | | | | | | Fax: | | | | | | | [phone] | + +--------+ + + + + Encounter Details +--------+---------+ + + + | Date | Type | Department | Care Team | Description | +--------+---------+ + + + | 02/20/ | Office | Digestive Health | Ailyn Wolff MD | CA of rectum (HCC) | | 2018 | Visit | Center at [facility] 6th | [address] | (Primary Dx) | | | | Floor [address] | [place] H[place], | | | | | Ave Mailcode: CH6D | [place] [address] | | | | | [facility] | [phone] | | | | | and Healing, 6th | | | | | | floor [place], [place] | | | | | | [address] | | | | | | [phone] | | | +--------+---------+ + + + [...] on 07/19/[address] [facility] ED CT abdomen/pelvis with IV contrast [...] placement of right internal jugular port-a-cath (Dr. Tahcker, 09/22/16) seen by local medical oncology (Mike [...] cm from anal verge presented at the [facility] Multidisciplinary GI Oncology Conference on [...] to Mendoza pouch staple line presented at [facility] Multidisciplinary GI Oncology Conference on [...] MRI (OSH, 05/17/17) close to pelvic sidewall [facility] Multidisciplinary GI Oncology Conference (06/02/17) [...] resection with primary anastomosis, placement of a 19-Welsh Albert drain through the right lower quadrant [...] resection with primary anastomosis, placement of a 19-Welsh Albert drain through the right lower quadrant [...] Return/Re-evaluation patient, I spent 12 minutes of yhdc-pq-suat time, of which m ore than half [...] | | | | | [place], | | | | | | [place] [address] | | | | | | [phone] | | | | | | | | +--------+ + + + + | 05/29/ | Appointment | Wound Ostomy | Delores Avilez | | | 2017 | | | [address] | | | | | | [place], | | | | | | [place] [address] | | +--------+ + + + + as of this encounter Results CARCINOEMBRYONIC AG, SERUM (02/20/2018 2:33 PM) + +-------+ + + | Component | Value | Ref Range | Performed At | + +-------+ + + | CEA-CARCINOEMBRYONIC | 1.3 | <=2.5 ng/mL | [facility] | | AG, SERUM | | | SERVICES, CORE | + +-------+ + + + + | Specimen | + + | Blood - Blood | + + + + + + + | Performing | Address | City/State/Zipcode | Phone Number | | Organization | | | | + + + + + | [facility] | [address] | [place] [address] | | | SERVICES, CORE | [address] | | | + + + + + in this encounter Visit Diagnoses + + | Diagnosis | + + | CA of rectum (HCC) - Primary | + + | Malignant neoplasm of rectum | + +
--- OUTSIDE RECORDS SUMMARY | ~2018-04-15 | XMS | Encounter Summary ---
Demographics + + + | Address | [address] | | | [place] [address] | + + + | Home Phone [...] Providers + +------+ + | Care Metal Painter Name | Role | Phone | [...] | 2018 | Encounter | Center at [facility] 6th | [address] | | | | | Floor [address] | [place] [facility] | | | | | [place] Mailcode: CH6D | [place] [address] | | | | | [facility] | [phone] | | | | | and Healing, 6th | | | | | | floor [place], [place] | | | | | | [address] | | | | | | [phone] | | | +--------+ + + + [...] | | | | | | [place] [address] | | | | | | [phone] | | | | | | | | +--------+ + + + + | 05/29/ | Appointment | Wound Ostomy | Delores Avilez | | | 2018 | | | [address] | | | | | | [place], | | | | | | [place] [address] | | +--------+ + + + + as of this encounter Visit Diagnoses Not on filein this encounter"
--- OUTSIDE RECORDS SUMMARY | ~2018-04-15 | XMS | Encounter Summary ---
Demographics + + + | Address | [address] | | | [place] [address] | + + + | Home Phone [...] Team Providers + +------+ + | Care Organ Grinder Name | Role | Phone | + +------+ + | Justin Kristian | PCP | | + +------+ + Encounter Details +--------+------+ + + + | Date | Type | Department | Care Team | Description | +--------+------+ + + + | 02/20/ | Lab | Laboratory at [facility] | | CA of rectum ([facility]) | | 2017 | | 3rd Floor [address] | | | | | | [place], | | | | | | [place] [address] | | | | | | [phone] | | | +--------+------+ + + + [...] | | | | | [place], | | | | | | [place] [address] | | | | | | [phone] | | | | | | | | +--------+ + + + + | 05/29/ | Appointment | Wound Ostomy | Delores Avilez | | | 2017 | | | [address] | | | | | | [place], | | | | | | [place] [address] | | +--------+ + + + + as of this encounter Procedures + +--------+ [...] section. | + +--------+ + + + in this encounter Results CARCINOEMBRYONIC AG, SERUM (02/20/2018 2:33 PM) + +-------+ + + | Component | Value | Ref Range | Performed At | + +-------+ + + | CEA-CARCINOEMBRYONIC | 1.3 | <=2.5 ng/mL | [facility] | | AG, SERUM | | | SERVICES, CORE | + +-------+ + + + + | Specimen | + + | Blood - Blood | + + + + + + + | Performing | Address | City/State/Zipcode | Phone Number | | Organization | | | | + + + + + | [facility] | [address] | [place] [address] | | | SERVICES, CAR | [address] | | | + + + + + in this encounter Visit Diagnoses + + | Diagnosis | + + | CA of rectum (HCC) | + + | Malignant neoplasm of rectum | + +"
--- OUTSIDE RECORDS SUMMARY | ~2018-04-15 | XMS | Clinical Summary ---
Demographics + + + | Address | [address] | | | [place] [address] | + + + | Home Phone [...] Author + + + | Author | [facility] | + + + | Organization | [facility] | + + + | Address | Unknown | + + + | Phone | Unavailable | + + + Support + + +---------+ + | Name | Relationship | Address | Phone | + + +---------+ + | SARAH [place]AM | ECON | Unknown | | + + +---------+ + Care Team Providers + +------+ + | Care Animal Sticker Name | Role | Phone | + +------+ + | Kristian Anderson DO | PP | | + +------+ + Source Comments CHAPIN is fully live on both [facility] Ambulatory and [facility] InPatient.[facility] Allergies + + + + + + [...] | e | + + +--------+---------+------+------+-------+ | acetaminophen 500 [...] | | | + + +--------+---------+------+------+-------+ | ferrous gluconate | Take 27 mg by mouth | | | | | Activ | | 325 mg (36 mg iron) | two times daily. | | | | | e | | oral tablet | | | | | | | + + +--------+---------+------+------+-------+ | ibuprofen 600 mg | Take 600 mg by mouth | | | | | Activ | | oral tablet | every six hours as | | | | | e | | | needed. | | | | | | + + +--------+---------+------+------+-------+ | methocarbamol 750 | | | | 07/2 | | Activ | | mg oral tablet | | | | 8/20 | | e | | | | | | 18 | | | + + +--------+---------+------+------+-------+ | oxybutynin CR 10 | | | | 07/2 | | Activ | | mg oral tablet | | | | 320 | | e | | extended release | | | | 18 | | | | 24hr | | | | | | | + + +--------+---------+------+------+-------+ | escitalopram | Take by mouth. | | | | | Activ | | oxalate 10 mg oral | | | | | | e [...] + + | 03/30/ | MyChart | | Delores Avilez | RE:115 Appt | | 2017 | Encounter | | | | +--------+ + + + + | 03/29/ | MyChart | | Delores Avilez | appointment | | 2017 | Encounter | | | | +--------+ + + + + | 02/22/ | Telephone | | Ailyn Wolff MD | Lab Results | | 2017 | | | | | +--------+ + + + + | 02/20/ | Lab | | | CA of rectum (HCC) | | 2017 | | | | | +--------+ + + + + | 02/20/ | Office | | Ailyn Wolff MD | CA of rectum (HCC) | | 2017 | Visit | | | (Primary Dx) | +--------+ + + + 02/20/ | Hospital | | Delores Avilez | | 2017 | Encounter | | | | +--------+ + + + 02/08/ | MyChart | | Ailyn Wolff MD | RE: questions | | 2017 | Encounter | | [...] Heart Attack | Father | | from [place] at age 52 | + + +------+ [...] PM PDT | + + + + Plan of Treatment +--------+ + + + + | Date | Type | Specialty | Care Team | Description | +--------+ + + + + | 05/29/ | Office | | Ailyn Wolff MD | | | 2017 | Visit | | [address] | | | | | | [place], | | | | | | [place] [address] | | | | | | [phone] | | | | | | | | +--------+ + + + + | 05/29/ | Appointment | | Delores Avilez | | | 2017 | | | [address] | | | | | | [place], | | | | | | [place] [address] | | +--------+ + + + + + + + + + | Health Maintenance | Due Date | Last Done | Comments | + + + + + | INFLUENZA VACCINE | | 08/08/2017 | | | (FLU SHOT) | 8 | | | + + [...] | | | | + +------+------+ +--------+--------+--------+ Procedures + +--------+ + + + | [...] Last 3 Months Results CARCINOEMBRYONIC AG, SERUM (02/20/2018 2:33 PM) + +-------+ + + | Component | Value | Ref Range | Performed At | + +-------+ + + | CEA-CARCINOEMBRYONIC | 1.3 | <=2.5 ng/mL | [facility] | | AG, SERUM | | | SERVICES, CORE | + +-------+ + + + + | Specimen | + + | Blood - Blood | + + + + + + + | Performing | Address | City/State/Zipcode | Phone Number | | Organization | | | | + + + + + | [facility] | [address] | [place] [address] | | | SERVICES, CORE | [address] | | | + + + + + from Last 3 Months Insurance + +--------+ +--------+-------+---------+ | Payer | Benefi | Subscriber | Type | Phone | Address | | | t Plan | ID | | | | | | / | | | | | | | Group | | | | | + +--------+ +--------+-------+---------+ | [employer] | [employer] | xxxxxxxx | Medica | | | | | [place] | | id | | | | | [place] | | | | | + +--------+ +--------+-------+---------+ + +--------+ +--------+ + + | Guarantor Name | Accoun | Relation to | Date | Phone | Billing Address | | | t Type | Patient | of | | | | | | | | | | + +--------+ +--------+ + + | JENN BYRNES | Person | Self [birth year] Home: | [address] | | | al/Fam | | 1961 | [phone] | [address] [place] | | | [place] | | | [phone] | + +--------+ +--------+ + +
--- OUTSIDE RECORDS SUMMARY | ~2018-04-15 | XMS | Encounter Summary ---
Demographics + + + | Address | [address] | | | [place] [address] | + + + | Home Phone [...] Team Providers + +------+ + | Care Nba Player Name | Role | Phone | + +------+ + | Kristian Anderson DO | PCP | | + +------+ + Encounter Details +--------+ + + + + | Date | Type | Department | Care Team | Description | +--------+ + + + + | 03/30/ | MyChart | Wound and Ostomy | Delores Avilez | RE:05-29 Appt | | 2018 | Encounter | Care [address] | [address] | | | | | [facility] | [place], | | | | | Physicians [place] | [place] [address] | | | | | [phone] | | | | | | [place], [place] | | | | | | [address] | | | | | | [phone] | | | +--------+ + + + [...] | | | | | | [place] [address] | | | | | | [phone] | | | | | | | | +--------+ + + + + | 05/29/ | Appointment | Wound Ostomy | Delores Avilez | | | 2018 | | | [address] | | | | | | [place], | | | | | | [place] [address] | | +--------+ + + + + as of this encounter Visit Diagnoses Not on filein this encounter"
--- OUTSIDE RECORDS SUMMARY | ~2018-04-15 | XMS | Clinical Summary ---
Demographics + + + | Address | [address] | | | [place] [address] | + + + | Home Phone [...] Author + + + | Author | [facility] | + + + | Organization | [facility] | + + + | Address | Unknown | + + + | Phone | Unavailable | + + + Support + + +---------+ + | Name | Relationship | Address | Phone | + + +---------+ + | SARAH CUNNINGHAM | ECON | Unknown | | + + +---------+ + Care Team Providers + +------+ + | Care Yeast Pumper Name | Role | Phone | + +------+ + | Kristian Anderson DO | PP | | + +------+ + Source Comments CHAPIN is fully live on both [facility] Ambulatory and [facility] InPatient.[facility] Allergies + + + + + [...] | | | | | | [place] [address] | | | | | | [phone] | | | | | | | | +--------+ + + + + | 05/29/ | Appointment | | Delores Avilez | | | 2017 | | | [address] | | | | | | [place], | | | | | | [place] [address] | | +--------+ + + + + [...] | + + + + + | [facility] | [address] | [place] [address] | | | SERVICES, CORE | [address] [...] | | | + +--------+ +--------+-------+---------+ | [employer]TRY [employer] WORK[employer] MEDICAID | [employer]TRY [employer] WORKER | xxxxxxxx | Medica | | | [...] | 1961 | [phone] | [address] | | | [address] | | | [phone] | [phone] | + +--------+ +--------+ + +
--- OUTSIDE RECORDS SUMMARY | ~2018-04-15 | XMS | Encounter Summary ---
Demographics + + + | Address | [address] | | | [place] [address] | + + + | Home Phone [...] Team Providers + +------+ + | Care Invoice Clerk Name | Role | Phone | [...] [address] | | | | | [facility] | [place], | | | | | Physicians [place] | [place] [address] | | | | | [phone] | | | | | | [place], [place] | | | | | | [address] | | | | | | [phone] | | | +--------+ + + + [...] | | | | | | Park [facility], | | | | | | [place] [address] | | | | | | [phone] | | | | | | | | +--------+ + + + + | 05/29/ | Appointment | Wound Ostomy | Delores Avilez | | | 2018 | | | [address] | | | | | | [place], | | | | | | [place] [address] | | +--------+ + + + + as of this encounter Visit Diagnoses Not on filein this encounter"
--- OUTSIDE RECORDS SUMMARY | ~2018-04-15 | XMS | Encounter Summary ---
Demographics + + + | Address | [address] | | | [place] [address] | + + + | Home Phone [...] Team Providers + +------+ + | Care Curator [employer] History Museum Name | Role | Phone | + [...] [address] | | | | | [facility] | [place] [facility] | | | | | [place] | [place] [address] | | | | | [phone] | | | | | | [place], [place] | | | | | | [address] | | | | | | [phone] | | | +--------+ + + + [...] | | | | | | [place] [address] | | | | | | [phone] | | | | | | | | +--------+ + + + + | 05/29/ | Appointment | Wound Ostomy | Delores Avilez | | | 2017 | | | [address] | | | | | | [place] | | | | | | [place] [address] | | +--------+ + + + + as of this encounter Visit Diagnoses Not on filein this encounter"
--- OUTSIDE RECORDS SUMMARY | ~2018-04-15 | XMS | Clinical Summary ---
Demographics + + + | Address | [address] | | | [place] [address] | + + + | Home Phone [...] | Organization | [facility] | | | and [place] | + + + | Address | Unknown | + + + | Phone | Unavailable | + + + Support + + + + + | Name | Relationship | Address | Phone | + + + + + | Lamar Phillips | ECON | [place] [address] | | + + + + + Care Team Providers + +------+ + | Care Department Supervisor Name | Role | Phone | [...] 2010 (Rene). Pathological specimens; PAP | | #[id number] "negative for intraepithelial lesions or malignancy." | [...] DIAGNOSIS: Locally Advanced Rectal Cancer, | | [id number], Stage IIA. Willie aBrajas presented to the [facility] emergency room on July 20, 2016 with [...] the rectum. Biopsy specimen number | | [id number] evaluated by Dr. Felipe Nixon of [facility] | | Pathology was notable for a tubular adenoma without high-grade | | dysplasia or overt carcinoma. This procedure also included a | | full colonoscopy through the ostomy were 2 additional polyps were | | removed, a tubular adenoma at 35 cm and a hyperplastic polyp at | | [address] C/A/P at [facility] in [place], [place] | | demonstrated no evidence of metastatic disease.4. On September 22 | | 2016 Dr. Thacker placed in internal jugular Port-A-Cath without | | complications.5. MRI of pelvis performed on October 05, 2016 at | | [facility]: Rectal mass 7.7 cm x 6.2 cm x 9.6 cm in length located | | within 3 cm of the anal sphincter and 6.4 cm from the anal verge | | with radiographic extension though multiple areas of the bowel | | wall.6. CT abdomen/pelvis also at [facility] October 05, 2016; large | | almost completely circumferential rectosigmoid mass better | | delineated on the corresponding MRI with adjacent probable | | abscess. No distant metastases identified.7. On October 14, 2016 | | Paulette was evaluated by Dr. Ailyn Wolff and Dr. Shea Mcneill of the | | [facility] where her case was presented | | to their tumor board. Clinical exam is notable for an overt | | rectal carcinoma invading into the vagina. 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 Concerns raised by the [facility] | | and [facility] Tumor Board were that the prior [...] as mutation analysis." | | Pathological Specimen #[id number] (Linwood Nixon | | Pathology). Tubulovillous adenoma [...] Multidisciplinary Care Team | | Conference at [facility] March 10, 2017; "Given borderline [...] Dr. Ailyn Wolff at the | | [facility]: 06/30/17: Exploratory laparotomy. Extensive lysis of | | adhesions. Excision of left lower quadrant fistula tract. Total | | mesorectal excision, intersphincteric abdominoperineal resection, | | en bloc resection of left ovary and left fallopian tube and | | posterior vaginal wall. Placement of a 19-Italian Albert drain | | through the right [...] | on August 12, 2017; Dr. Lea [facility], [place], | | [place]; positive for perianal fistula between anus and vagina.22. | | Clinical exam on August 22, [address] Ailyn Wolff at [facility] who could | | not confirm the presence of perianal fistula.23. Cycle # 11 | | FOLFOX on August 23, 2017.24. Cycle #12 FOLFOX on September 05, | | 2018.25. Port-a-cath removed by Dr. Marty Thacker.26. CT | | chest/abdomen/pelvis ([facility], [place]) on September 26, 2017; marked | | reduction of large central rectal/perirectal mass, very small | | residual fluid collection with adjacent fat stranding which may | | represent short residual Velasquez's pouch, residual postoperative | | fluid or residual necrotic tumor.27. MRI of pelvis September 28, 2017 | | ([facility], [place], [place]); Small gas and fluid collection in the | | presacral space, concerning for abscess formation. Postoperative | | changes of low anterior resection, with left lower quadrant end | | colostomy. Left lower quadrant parastomal hernia. Last | | Assessment & Plan: Paulette Byrnes returned to clinic on | | 01/02/2018 with a examination grader for follow up of her locally advanced | | rectal cancer.Interval history is notable for the fact that | | Kirstie electively removed Paulette's port-a-cath.Interval history is | | also notable for the fact that Paulette had an encounter with her | | surgeon, Dr. Ailyn Wolff at [facility]. Dr. Wolff has asked Paulette to follow up | | with him in [place] every three months.Assessment; Locally | | advanced rectal cancer, status post 10 cycles of neoadjuvant | | FOFLOX, followed by definitive surgery on May 16, 2017, | | followed by two adjuvant cycles of FOLFOX completed on August | | 2017.Plan; Paulette will follow up with Dr. Wolff in [place] every | | three months. Currently, follow-up [...] | [employer] | [employer] | [id number] | [employer] | [phone] | | | MEDICAID HMO | HEALTH [...] | | | [phone] | [place] [address] | + +--------+ +--------+ + +
--- OUTSIDE RECORDS SUMMARY | ~2018-04-15 | XMS | Encounter Summary ---
Demographics + + + | Address | [address] | | | [place] [address] | + + + | Home Phone [...] Team Providers + +------+ + | Care Switch Technician Name | Role | Phone | + +------+ + | Justin Kristian | PCP | | + +------+ + Encounter Details +--------+------+ + + + | Date | Type | Department | Care Team | Description | +--------+------+ + + + | 02/20/ | Lab | Laboratory at [facility] | | CA of rectum ([facility]) | | 2017 | | 3rd Floor [address] | | | | | | [address] [place], | | | | | | [place] [address] | | | | | | [phone] | | | +--------+------+ + + + [...] | | 2018 | Visit | | [address] | | | | | | [place], | | | | | | [place] [address] | | | | | | [phone] | | | | | | | | +--------+ + + + + | 05/29/ | Appointment | Wound Ostomy | Del[facility] | | | 2017 | | | [address] | | | | | | [place], | | | | | | [place] [address] | | +--------+ + + + + [...] CEA-CARCINOEMBRYONIC | 1.3 | <=2.5 ng/mL | [facility] | | AG, SERUM | | | SERVICES, CORE | + +-------+ + + + + | Specimen | + + | Blood - Blood | + + + + + + + | Performing | Address | City/State/Zipcode | Phone Number | | Organization | | | | + + + + + | [facility] | [address] | [place] [address] | | | SERVICES, CAR | [place] | | | + + + + + in this encounter Visit Diagnoses + + | Diagnosis | + + | CA of rectum (HCC) | + + | Malignant neoplasm of rectum | + +"
[~2018-04-15 10:45] MED LIST changes: +ROBAXIN-750750 MG PO
[2018-04-15] MEDS ORDERED: MAGNESIUM250 M1 PO (10:59)
--- NOTE | 2018-04-16 19:53 | EKG ---
[facility] [address] [place] [address] Signed Normal sinus rhythm Low voltage QRS Borderline ECG When compared with ECG of 01-DEC-2017 11:10, No significant change was found Confirmed by CRISTOFER CHI MD ([id number]) on 04/16/2018 7:53:33 PM Electronically Signed By: CRISTOFER CHI MD 04/16/181952 PATIENT NAME: PAULETTE BYRNES Electrocardiogram DATE OF : 56 PHYSICIAN: CRISTOFER CHI MD REPORT #: [id number] REPORT IS CONFIDENTIAL AND NOT TO BE RELEASED WITHOUT AUTHORIZATION
== END 2018-04-15 12:44 | disposition home or self-care (01) ==
LOC: ED 10:45
DX: R07.89 Other chest pain (principal); I10 Essential (primary) hypertension; Z88.8 Allergy status to other drugs, medicaments and biological substances; Z87.891 Personal history of nicotine dependence; Z79.899 Other long term (current) drug therapy
CPT/HCPCS: 36415; 71045; 80053; 84484; 85025; 93005; 93010; 99285

== ENCOUNTER 2018-07-27 08:49 | Day surgery (SDC) | payer OTHER ==
[~2018-07-27] VITALS: Ht 160 cm; Wt 86.6 kg
[~2018-07-27 08:49] MED LIST changes: +MAGNESIUM250 M1 PO; +NYSTATIN15 G1 TOP; +OXYBUTYNIN CHLO10 MG PO
[2018-07-27] MEDS ORDERED: CLARITIN10 MG PO (09:04)
--- NOTE | 2018-07-27 09:46 | NUR ---
warm blanket on. ok with wait. iv patent.
--- NOTE | 2018-07-27 10:50 | NUR ---
07/27/18 1050 Nataliia Benoit 1040- PT ARRIVES TO PACU. PT IS AROUSABLE TO VOICE. REPORTS NO PAIN OR NAUSEA. PT INSTANTLY BACK TO SLEEP. RESP EVEN AND UNLABORED. PT DOES SNORE WHEN SLEEPING. OXYGEN SAT 100% ON 6L VIA MASK. 1042- OXYGEN TITRATED DOWN TO 2L VIA NC. OXYGEN SAT MID 90'S ON THIS. 1044- PT'S HOB ELEVATED TO 45 DEGREES. PT REPORTS NO DIZZINESS, NAUSEA, OR PAIN. 1049- PT'S COLOSTOMY BAG BURPED.
--- NOTE | 2018-07-28 08:59 | OR ---
[facility] [address] [place], [place] [address] Signed DATE OF OPERATION: 07/27/2018 SURGEON: Carlos Posada MD PREOPERATIVE DIAGNOSES: 1. Personal history of rectal cancer (2017). 2. Status post abdominoperineal resection (2017). 3. Personal history of colonic polyps (2017). 4. Diverticulosis. 5. Moderate parastomal left lower quadrant hernia. POSTOPERATIVE DIAGNOSES: 1. 5 mm polyp distal transverse colon. 2. 5 mm polyp, proximal transverse colon. 3. 7 mm polyp, hepatic flexure. 4. 5 mm polyp, distal hepatic flexure. 5. Minimal to moderate left-sided diverticulosis. PROCEDURE PERFORMED: Colonoscopy with hot biopsy. ESTIMATED BLOOD LOSS: None. INDICATIONS: Jenn is a 57-year-old female who came in June 2016, for draining of a pelvic abscess associated with a necrotic rectal tumor. Once that settled down, she had a colonoscopy in August 2016. The tumor was 6 cm from the anal verge. She also had colonic polyps removed. She is known to have diverticulosis as well and a single diverticulum in her cecum. She underwent neoadjuvant chemo and radiation therapy followed by a significant abdominoperineal resection. Part of the vagina had to be removed as well. She has come to that nicely and finished up with her adjuvant chemotherapy. She has been following along with her various physicians. She has been asked to see me now a year later for a followup colonoscopy. She has developed moderate sized but asymptomatic parastomal left lower quadrant hernia. She tells me there is no family history of colon cancer or polyps to her knowledge. In the office, I reviewed with Jenn the nature of a colonoscopy. She understands the nature of that test along with the risks including, but not limited to gas bloating, crampy abdominal pain, bleeding, perforation, requiring surgery, and missed diagnosis. She also understands the need for IV conscious sedation. She expressed understanding and wished to proceed. Electronically Signed By: CARLOS POSADA MD 07/28/18 0859 PATIENT NAME: JENN BYRNES OPERATIVE REPORT DATE OF : 56 REPORT #: [id number] PHYSICIAN: CARLOS POSADA MD PCP: FEDERICO LOPEZ DO REPORT IS CONFIDENTIAL AND NOT TO BE RELEASED WITHOUT AUTHORIZATION [facility] [address] [place], [place] [address] Signed PROCEDURE NOTE: Jenn was taken into the endoscopy suite and initially placed in the left lateral decubitus position. She has been having trouble with urinary incontinence and she has been wearing a Megan-Pad. Consequently, the skin along her perineum and back towards the anus is pale and excoriated. I explained to Jenn that she needs to place even simple petroleum jelly across that skin to help protect it. If she has any further questions, she needs to talk to her urologist. After this, Jenn was placed in the supine position. Her colostomy bag was removed and a digital exam was undertaken with the 5th digits of the finger. Her colostomy is not prolapsed and it is not obstructed. She does have a moderate parastomal hernia. After this, the adult colonoscope was introduced and advanced under direct visualization into the cecum without difficulty. Her prep was good. The scope was slowly withdrawn. The above-mentioned polyps were easily removed with the help of hot biopsy forceps. I did not specifically see the diverticulum and the cecum on this occasion. However, she does have the diverticula in the left colon. They were moderate in size, minimal to moderate in number, and scattered about. After this, the gas had been suctioned out and the colonoscope completely removed. Jenn tolerated the procedure quite well. RECOMMENDATIONS: I will see Jenn back in my office in 7 to 14 days to review her results. Carlos Posada MD ALB/MODL /[id number] cc: MD Ailyn Alfaro MD Robert C Quackenbush, MD Lohith Veerappa Reddy, MD Electronically Signed By: CARLOS POSADA MD 07/28/18 0859 PATIENT NAME: JENN BYRNES OPERATIVE REPORT DATE OF : 56 REPORT #: [id number] PHYSICIAN: CARLOS POSADA MD PCP: FEDERICO LOPEZ DO REPORT IS CONFIDENTIAL AND NOT TO BE RELEASED WITHOUT AUTHORIZATION [facility] [address] [place] [address] Signed Copies: CARLOS POSADA MD, KIM MD QUACKENBUSH, ROBERT C MD REDDY, LOHITH VEERAPPA MD ~ Electronically Signed By: CARLOS POSADA MD 07/28/18 0859 PATIENT NAME: FITZJENN ALTAF OPERATIVE REPORT DATE OF : 56 REPORT #: [id number] PHYSICIAN: CARLOS POSADA MD PCP: FEDERICO LOPEZ DO REPORT IS CONFIDENTIAL AND NOT TO BE RELEASED WITHOUT AUTHORIZATION
== END 2018-07-27 11:25 | disposition home or self-care (01) ==
LOC: DS 08:49 → OPS 08:49 → DS 10:30 → OPS 11:25
PROVIDERS: Colon & Rectal Surgery
PROC: 0DBL8ZZ Excision of Transverse Colon, Via Natural or Artificial Opening Endoscopic (ICD-10-PCS; principal; 2018-07-27 10:30)
DX: D12.3 Benign neoplasm of transverse colon (principal); K63.5 Polyp of colon; K57.30 Diverticulosis of large intestine without perforation or abscess without bleeding; Z85.048 Personal history of other malignant neoplasm of rectum, rectosigmoid junction, and anus; Z86.010 Personal history of colon polyps; Z87.891 Personal history of nicotine dependence; Z88.5 Allergy status to narcotic agent; Z79.899 Other long term (current) drug therapy
CPT/HCPCS: 88305; 99153; G0500; J2250; J3010; J7120

== ENCOUNTER 2019-05-24 14:38 | Inpatient (IN) | payer MEDICARE, MEDICAID ==
[~2019-05-24] VITALS: Ht 160 cm; Wt 90.9 kg
--- OUTSIDE RECORDS SUMMARY | ~2019-05-24 | XMS | Encounter Summary ---
Demographics + + + | Address | [address] | | | [place] [address] | + + + | Home Phone | | + + + | Preferred Language | Unknown | + + + | Marital Status | Single | + + + | Confucianist Affiliation | NON | + + + | Race | White | + + + | Ethnic Group | Not or | + + + Author + + + | Author | [facility] | + + + | Organization | [facility] | + + + | Address | Unknown | + + + | Phone | Unavailable | + + + Support + + +---------+ + | Name | Relationship | Address | Phone | + + +---------+ + | Darrius Quintana | ECON | Unknown | | + + +---------+ + Care Team Providers + +------+ + | Care Piece Marker Small Arms Name | Role | Phone | + +------+ + | Justin Kristian | PCP | | + +------+ + Reason for Visit + + + | Reason | Comments | + + + | Other | numbness of the thigh | + + + | Blood in urine | UTI work up ordered | + + + Encounter Details +--------+ + + + + | Date | Type | Department | Care Team | Description | +--------+ + + + + | 07/11/ | Telephone | Digestive Health | Ailyn Wolff MD | Other (numbness of | | 2017 | | Center at [facility] [address] | [address] | the thigh); Blood in | | | | [address] | [address] [place], | urine (UTI work up | | | | Mailcode: [place] | [place] [address] | ordered) | | | | for Health and | [phone] | | | | | [facility], [facility] [address] | | | | | | [place], [place] | | | | | | [address] | | | | | | [phone] | | | +--------+ + + + [...] + + documented as of this encounter Functional Status + [...] | | | + + + + documented as of this encounter Plan of Treatment +--------+---------+ + + + | Date | Type | Specialty | Care Team | Description | +--------+---------+ + + + | 06/18/ | Office | Surgery | Ailyn Wolff MD | | | 2018 | Visit | | [address] | | | | | | [place], | | | | | | [place] [address] | | | | | | [phone] | | | | | | | | +--------+---------+ + + + documented as of this encounter Visit Diagnoses + + | Diagnosis | + + | Hematuria, unspecified type - Primary | + + documented in this encounter"
--- OUTSIDE RECORDS SUMMARY | ~2019-05-24 | XMS | Encounter Summary ---
Demographics + + + | Address | [address] | | | [place] [address] | + + + | Home Phone | | + + + | Preferred Language | Unknown | + + + | Marital Status | Single | + + + | Orthodox Affiliation | NON | + + [...] Team Providers + +------+ + | Care Abattoir Supervisor Name | Role | Phone | + +------+ + | Kristian Anderson DO | PCP | | + +------+ + Encounter Details +--------+ + + + + | Date | Type | Department | Care Team | Description | +--------+ + + + + | 06/05/ | MyChart | Wound and Ostomy | Delores Avilez, | RE:Irrigation | | 2018 | Encounter | Care [address] | RN, CWOCN [address] | products | | | | [address] | [address] | | | | | [facility] | [place], [place] | | | | | [place] [address] | [address] | | | | | [place], [place] | | | | | | [address] | | | | | | [phone] | | | +--------+ + + + [...] | | | | | [address] [place], | | | | | | [place] [address] | | | | | | [phone] | | | | | | | | +--------+---------+ + + + documented as of this encounter Visit Diagnoses Not on filedocumented in this encounter"
--- OUTSIDE RECORDS SUMMARY | ~2019-05-24 | XMS | Encounter Summary ---
Demographics + + + | Address | [address] | | | [place] [address] | + + + | Home Phone | | + + + | Preferred Language | Unknown | + + + | Marital Status | Single | + + + | Gnosticist Affiliation | NON | + + + | Race | White | + + + | Ethnic Group | Not or | + + + Author + + + | Author | [facility] | + + + | Organization | [facility] | + + + | Address | Unknown | + + + | Phone | Unavailable | + + + Support + + +---------+ + | Name | Relationship | Address | Phone | + + +---------+ + | Darrius Quintana | ECON | Unknown | | + + +---------+ + Care Team Providers + +------+ + | Care State Director Name | Role | Phone | + +------+ + | Krsitian Anderson DO | PCP | | + +------+ + Reason for Referral Consultation (Routine) + +--------+ + + + + | Status | Reason | Specialty | Diagnoses / | Referred By | Referred To | | | | | Procedures | Contact | Contact | + +--------+ + + + + | New Request | | Gastroenterol | Diagnoses | Ailyn Wolff, | Gas Endo | | | | ogy | CA of | MD [address] | [address] | | | | | rectum (HCC) | [address] | | | | | Procedures | Amita Hines | [place]a Hines | | | | | CONSULT TO | [place], [place] | Mailcode: | | | | | GI | [address] | [id number] | | | | | PROCEDURE | Phone: | [address] | | | | | UNIT: | [phone] | [address] | | | | | COLONOSCOPY | Fax: | [place], | | | | | | [phone] | [place] [address] | | | | | | | Phone: | | | | | | | [phone] | | | | | | | Fax: | | | | | | | [phone] | + +--------+ + + + + Diagnostic Testing (Routine) +--------+--------+ + + + + | Status | Reason | Specialty | Diagnoses / | Referred By | Referred To | | | | | Procedures | Contact | Contact | +--------+--------+ + + + + | Closed | | Radiology | Diagnoses | Ailyn Wolff, | | | | | | CA of | [address] | | | | | | rectum (HCC) | [address] | | | | | | Procedures | Amita Hines | | | | | | CT CHEST, | [place], [place] | | | | | | ABDOMEN AND | [address] | | | | | | PELVIS W IV | Phone: | | | | | | CONTRAST | [phone] | | | | | | | Fax: | | | | | | | [phone] | | +--------+--------+ + + + + Reason for Visit + + + | Reason | Comments | + + + | Follow-up visit | | + + + | Rectal cancer | | + + + Office Visit - E/M Services (Routine) +--------+--------+ + + + + | Status | Reason | Specialty | Diagnoses / | Referred By | Referred To | | | | | Procedures | Contact | Contact | +--------+--------+ + + + + | Closed | | Surgery | | Non-[facility] | Ailyn Wolff, | | | | | | Epic Dept | [address] | | | | | | | [address] | | | | | | | [place]a Hines | | | | | | | [place], [place] | | | | | | | [address] | | | | | | | Phone: | | | | | | | [phone] | | | | | | | Fax: | | | | | | | [phone] | +--------+--------+ + + + + Encounter Details +--------+---------+ + + + | Date | Type | Department | Care Team | Description | +--------+---------+ + + + | 05/29/ | Office | Digestive Health | Ailyn Wolff MD | CA of rectum (HCC) | | 2018 | Visit | [place] [facility] [address] | [address] | (Primary Dx) | | | | [address] | Amita Hines [place], | | | | | Mailcode: [place] | [place] [address] | | | | | for Health and | [phone] | | | | | [facility] [address] | | | | | | [place], [place] | | | | | | [address] | | | | | | [phone] | | | +--------+---------+ + + + [...] + + + | Blood Pressure | 131/82 | 05/29/2018 8:58 AM | | | | | PST | | + + + + + | Pulse | 86 | 05/29/2018 8:58 AM | | | | | PST | | + + + + + | Temperature | 36.7 C (98 F) | 05/29/2018 8:58 AM | | | | | PST | | + + + + + | Respiratory Rate | 18 | 05/29/2018 8:58 AM | | | | | PST | | + + + + + | Oxygen Saturation | - | - | | + + + + + | Inhaled Oxygen | - | - | | | Concentration | | | | + + + + + | Weight | 86.2 kg (190 lb) | 05/29/2018 8:58 AM | | | | | PST | | + + + + + | Height | 160 cm (5' 3") | 05/29/2018 8:58 AM | | | | | PST | | + + + + + | Body Mass Index | 33.66 | 05/29/2018 8:58 AM | | | | | PST | | + + + + + documented in this encounter Functional Status + + + [...] + + documented as of this encounter Patient Instructions Patient Instructions Ailyn Wolff MD - 05/29/2018 9:40 AM PSTPlan: CEA today. See me back in 3 months. Due for colonoscopy/CT chest/abdomen/pelvis with IV contrast in 06/[address] at [facility] in [place] in June,. I spoke to Marty Thacker. He is willing to do scope in June,. She needs to call for an appointment. documented in this encounter Progress Notes Yolis Cohn MA - 05/29/2018 9:40 AM PSTExamination chaperoned by YOLIS COHN MA.Stephanie ctronically signed by Yolis Cohn MA at 06/20/2018 6:24 AM Ailyn Sheehan MD - 05/29/2018 9:40 AM PSTCOLON AND RECTAL SURGERY Attending Clinic Note Established Patient Assessment: 57 y.o. female with htn, elevated lipids, heartburn, nephrolithiasis, and lichen sclerosus endoscopically obstructing mriT4 N0 M0 rectal mass (6 cm from verge) invading vagina rectal urgency and a lot of rectal bleeding on 07/19/16 went to the [facility] ED CT abdomen/pelvis with IV contrast (07/20/16) 11 cm complex mass in pelvis, either necrotic Neoplasm or abscess admitted by Dr. Thacker on 07/20/16 exploratory laparotomy, transabdominal drainage of left pelvic abscess with #10 flat Albert drain, placement of prolene stitch on distal Velasquez stump, and construction of end sigmoid colostomy (07/21/16) colonoscopy via anus to low rectal mass and via ostomy to cecum with good prep (Dr. Thacker, 09/02/16) unable to pass nearly circumferential, right posterolateral rectal mass bx of mass: tubular adenoma bx of mucosa at top of anal canal: no diagnosis one small cecal diverticulum 5 mm polyps at 35 and 40 cm from verge 35 cm: tubular adenoma 40 cm: suggestive of hyperplastic polyp few sigmoid diverticula above ostomy rigid proctoscopy (Dr. Thacker, 09/02/16) 6 cm from anal verge CEA (09/13/16) 10.71 CT chest with IV contrast (09/17/16) 5x3 mm RML nodule 2 mm RML nodule no clear lung metastases placement of right internal jugular port-a-cath (Dr. Thacker, 09/22/16) seen by local medical oncology (Mike Islas) on 10/01/16. recommended long course neoadjuvant chemoradiation rectal cancer protocol MRI (10/05/16) 9.6 cm lesion invasion of loop of sigmoid colon no clear invasion of other pelvic organs involvement of circumferential radial margin no extramural vascular invasion no adenopathy CT abdomen/pelvis with IV contrast (10/05/16) no liver metastases rigid proctoscopy by me (10/05/16) 6 cm from anal verge presented at the [facility] Multidisciplinary GI Oncology Conference on 10/07/16 diagnosis: T4 N0 M0 rectal mass invading the vagina, with drainage of necrotic tumor, possible abdominal cavity seeding but no visible lymphadenopathy/ metastases already diverted with end colostomy drain putting out stool pathology: only showed adenomatous tissue Recommendations: (high level of consensus) Repeat anal exam under anesthesia with larger biopsies for mutational analysis. Start with FOLFOX chemotherapy. Restage after 4 cycles. If have good response, consider 12 cycles of chemotherapy, then chemoradiation, then surgery. I spoke to Dr. Marty Thacker on 10/07/16. He is willing to try to Get more tissue. I spoke to Dr. Mike Islas on 10/07/16. He was willing To start with FOLFOX and to hold off on chemoradiation until closer to surgery I spoke with the patient on 10/07/16. Questions answered. She wishes to proceed with the above plan. CEA (10/18/16) 7.2 repeat anal biopsy on 10/27/16, c/w malignancy 6 cycles of FOLFOX, last cycle on 12/27/2016 completed 4500 cGy with 540 boost, 25 fractions, 01/10/17-02/17/17 MRI pelvis (03/02/17) tumor response but circumferential margin still threatened CT chest/abdomen/pelvis with IV contrast (03/02/17) no metastatic disease small left fluid collection next to Mendoza pouch staple line presented at [facility] Multidisciplinary GI Oncology Conference on 03/10/17. Given borderline resectability, give 6 more cycles of FOLFOX, restage with MRI, followed by posterior exenteration (abdominoperineal resection, hysterectomy, posterior vaginectomy, and VRAM). Low anterior may not be able to resect all of this. She may need intraop radiation therapy. This plan was discussed with both the patient and local oncologist 4 more cycles of FOLFOX, last one on 05/02/17 CEA (05/02/17) 1.9 CEA (05/16/17) 1.8 rectal MRI ([facility], 05/17/17) close to pelvic sidewall [facility] Multidisciplinary GI Oncology Conference (06/02/17) Recommendations with a high level of consensus. Low anterior resection, posterior vaginectomy, intraop radiation (Intrabeam). CT chest/abdomen/pelvis with IV contrast (06/13/17) no lung or liver metastases smaller mesorectal mass resolved left pelvic abscess s/p exploratory laparotomy, extensive (>3.5 hours) lysis of adhesions, total mesorectal excision via intersphincteric abdominoperineal resection with en bloc resection of left ovary, left fallopian tube, and posterior vaginal muscular wall, primary repair of posterior vaginal defect, pelvic biopsies, excision of left lower quadrant fistula tract, small bowel resection with primary anastomosis, placement of a 19-Bulgarian Albert drain through the right lower quadrant wall into the presacral space, 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, and placement of anthony drain into former rectocutaneous fistula (06/30/17) pathology: 5.8 cm yp T3 N0 (0/11 LN) moderately differentiated adenocarcinoma, no tumor budding, no angiolymphatic/perineural invasion, positive radial margin, all pelvic biopsies benign, benign abdominal wall tract and small bowel Cycle 11 FOLFOX on 08/23/17 Cycle 12 FOLFOX on 2/12/18 CT chest/abdomen/pelvis with IV contrast (09/26/17) no new or worrisome lung nodules no liver nodules decreased size of pelvic mass CEA (10/31/17) 1.3 Port removed 2017 CEA (02/20/18) 1.3 CEA (05/29/18) 0.9 acceptable nutrition albumin (09/13/16) 3.5 quit smoking on 07/19/16 Plan: CEA today, normal See me back in 3 months. Due for colonoscopy/CT chest/abdomen/pelvis with IV contrast in 06/[address] at [facility] in [place] in June,. I spoke to Marty Kirstie. He is willing to do scope in June,. She needs to call for an appointment. 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 Mike Islas) on 01/02/18 last seen by me on 02/20/18 Some pain in LUQ hernia. 4-5/10 last night. 1/10 now. Tolerating her diet. Nausea 2-3 times a week. No emesis. Appetite good. Gaining weight. She empties her colostomy bag 2 times a day. She changes her colostomy bag every 2 days. No problems keeping a seal. No perineal blood/drainage. Urinary incontinence; perineal rash. Perineal soreness. Stil l wears pad during day and diaper at night for urinary incontinence. Back pain resolved after physical therapy; no longer needs oxycodone. Takes magnesium for leg cramps. Resolve numbness in right upper thigh. Needs upper teeth removed. All other s ystems reviewed and are negative. She comes for routine cancer surveillance. Objective: BP 131/82 | Pulse 86 | Temp (Src) 36.7 C (98 F) (Oral) | RR 18 | Ht 1.6 m (5 ' 3") | Wt 86.2 kg (190 lb) | BMI 33.66 kg/(m^2) General: well-developed, well-nourished female in NAD Mental Status: A&O x 4 Neurologic: moves all extremities well HEENT: anicteric sclera, EOMI, no cervical/supraclavicular/infraclavicular lymphadenopathy Abd: soft, midline incision without hernia, viable left-sided ostomy with parastomal hernia, mild left-sided tenderness, nondistended No inguinal lymphadenopathy Extremities: no calf tenderness, no clubbing/cyanosis/edema Perineum: healed, no signs of infection or mass With this Return/Re-evaluation patient, I spent 20 minutes of [id number] time, of which m ore than half the time was spent in counseling. 5 minute document review prior to my seeing patient documented in this encounter Plan of Treatment +--------+---------+ + + + | Date | Type | Specialty | Care Team | Description | +--------+---------+ + + + | 06/18/ | Office | Surgery | Ailyn Wolff MD | | | 2018 | Visit | | [address] | | | | | | Amita Hines [place], | | | | | | [place] [address] | | | | | | [phone] | | | | | | | | +--------+---------+ + + + + +---------+--------+ + + | Name | Type | Priori | Associated Diagnoses | Order Schedule | | | | ty | | | + +---------+--------+ + + | CT CHEST, ABDOMEN | Imaging | Routin | CA of rectum (HCC) | Expected: | | AND PELVIS W IV | | e | | 05/29/2018, Expires: | | CONTRAST | | | | 06/28/2019 | + +---------+--------+ + + documented as of this encounter Results CARCINOEMBRYONIC AG, SERUM (05/29/2018 9:51 AM PST) + +-------+ + + + | Component | Value | Ref Range | Performed | Pathologist | | | | | At | Signature | + +-------+ + + + | [facility] | 0.9 | <=2.5 ng/mL | [facility] | | | [facility] | | | [facility] | | | AG, SERUM | | | SERVICES, | | | | | | CORE | | + +-------+ + + + + + | Specimen | + + | Blood - Blood | | (substance) | + + + + + + + | Performing | Address | City/State/Zipcode | Phone Number | | Organization | | | | + + + + + | [facility] | [address] | [place] [address] | | | SERVICES, CORE | [address] | | | + + + + + documented in this encounter Visit Diagnoses + + | Diagnosis | + + | 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
--- OUTSIDE RECORDS SUMMARY | ~2019-05-24 | XMS | Encounter Summary ---
Demographics + + + | Address | [address] | | | [place] [address] | + + + | Home Phone | | + + + | Preferred Language | Unknown | + + + | Marital Status | Single | + + + | Anglican Affiliation | NON | + + + | Race | White | + + + | Ethnic Group | Not or | + + + Author + + + | Author | [facility] | + + + | Organization | [facility] | + + + | Address | Unknown | + + + | Phone | Unavailable | + + + Support + + +---------+ + | Name | Relationship | Address | Phone | + + +---------+ + | Darrius Quintana | ECON | Unknown | | + + +---------+ + Care Team Providers + +------+ + | Care Manager Laboratory Name | Role | Phone | + +------+ + | Kristian Anderson | PCP | | + +------+ + Reason for Visit + + + | Reason | Comments | + + + | Question | MRI, CT and Ostomy Nurse | + + + Encounter Details +--------+ + + + + | Date | Type | Department | Care Team | Description | +--------+ + + + + | 11/07/ | Telephone | Digestive Health | Ailyn Wolff MD | Question (MRI, CT | | 2018 | | Center at [facility] [address] | [address] | and Ostomy Nurse) | | | | [address] | Amita Hines [place], | | | | | Mailcode: [place] | [place] [address] | | | | | for Health and | [phone] | | | | | [facility] 2 | | | | | | [place], [place] | | | | | | [address] | | | | | | [phone] | | | +--------+ + + + [...] | 2019 | Visit | | [address] | | | | | | Amita H[place], | | | | | | [place] [address] | | | | | | [phone] | | | | | | | | +--------+---------+ + + + documented as of this encounter Visit Diagnoses Not on filedocumented in this encounter"
--- OUTSIDE RECORDS SUMMARY | ~2019-05-24 | XMS | Encounter Summary ---
Demographics + + + | Address | [address] | | | [place] [address] | + + + | Home Phone | | + + + | Preferred Language | Unknown | + + + | Marital Status | Single | + + + | Druze Affiliation | NON | + + + [...] Team Providers + +------+ + | Care Stud Dairy Cattle Farmer Name | Role | Phone | + +------+ + | Kristian Anderson DO | PCP | | + +------+ + Reason for Visit + + + | Reason | Comments | + + + | Outside Records | | | Received | | + + + Encounter Details +--------+ + + + + | Date | Type | Department | Care Team | Description | +--------+ + + + + | 07/13/ | Abstract | Digestive Health | Ailyn Wolff MD | Outside Records | | 2017 | | Center at [facility] [address] | [address] | Received | | | | [address] | Amita Hines [place], | | | | | Mailcode: [place] | [place] [address] | | | | | for Health and | [phone] | | | | | [facility] 2 | | | | | | [place], [place] | | | | | | [address] | | | | | | [phone] | | | +--------+ + + + [...] | | | | | | [place]mita [place], | | | | | | [place] [address] | | | | | | [phone] | | | | | | | | +--------+---------+ + + + documented as of this encounter Visit Diagnoses Not on filedocumented in this encounter"
--- OUTSIDE RECORDS SUMMARY | ~2019-05-24 | XMS | Encounter Summary ---
Demographics + + + | Address | [address] | | | [place] [address] | + + + | Home Phone | | + + + | Preferred Language | Unknown | + + + | Marital Status | Single | + + + | Nondenominational Affiliation | NON | + + + | Race | White | + + + | Ethnic Group | Not or | + + + Author + + + | Author | [facility] | + + + | Organization | [facility] | + + + | Address | Unknown | + + + | Phone | Unavailable | + + + Support + + +---------+ + | Name | Relationship | Address | Phone | + + +---------+ + | Darrius Quintana | ECON | Unknown | | + + +---------+ + Care Team Providers + +------+ + | Care Oil Developer Name | Role | Phone | + +------+ + | Justin Kristian | PCP | | + +------+ + Reason for Visit + + + | Reason | Comments | + + + | Outside Records | [facility] 07/14/2017 | | Received | | + + + Encounter Details +--------+ + + + + | Date | Type | Department | Care Team | Description | +--------+ + + + + | 07/19/ | Abstract | Digestive Health | Ailyn Wolff MD | Outside Records | | 2017 | | [place] at [facility] [address] | [address] | Received (UA | | | | [address] | Amita Hines [place], | 07/14/2017) | | | | Mailcode: [place] | [place] [address] | | | | | for Health and | [phone] | | | | | [facility] 2 | | | | | | [place], [place] | | | | | | [address] | | | | | | [phone] | | | +--------+ + + + [...] | | | | | | [place] | | | | | | [place] [address] | | | | | | [phone] | | | | | | | | +--------+---------+ + + + documented as of this encounter Visit Diagnoses Not on filedocumented in this encounter"
--- OUTSIDE RECORDS SUMMARY | ~2019-05-24 | XMS | Encounter Summary ---
Demographics + + + | Address | [address] | | | [place] [address] | + + + | Home Phone | | + + + | Preferred Language | Unknown | + + + | Marital Status | Single | + + + | Caodaism Affiliation | NON | + + + | Race | White | + + + | Ethnic Group | Not or | + + + Author + + + | Author | [facility] | + + + | Organization | [facility] | + + + | Address | Unknown | + + + | Phone | Unavailable | + + + Support + + +---------+ + | Name | Relationship | Address | Phone | + + +---------+ + | Darrius Quintana | ECON | Unknown | | + + +---------+ + Care Team Providers + +------+ + | Care Rounder Hand Name | Role | Phone | + [...] | +--------+ + + + + | 05/18/ | Abstract | Digestive Health | Ailyn Wolff MD | Medical Records | | 2017 | | Center at [facility] [address] | [address] | Review | | | | [address] | Amita Hines [place], | | | | | Mailcode: [place] | [place] [address] | | | | | for Health and | [phone] | | | | | [facility] 2 | | | | | | [place], [place] | | | | | | [address] | | | | | | [phone] | | | +--------+ + + + [...] | | | | | [place]mita H[place], | | | | | | [place] [address] | | | | | | [phone] | | | | | | | | +--------+---------+ + + + documented as of this encounter Visit Diagnoses Not on filedocumented in this encounter"
--- OUTSIDE RECORDS SUMMARY | ~2019-05-24 | XMS | Encounter Summary ---
Demographics + + + | Address | [address] | | | [place] [address] | + + + | Home Phone [...] + + + | Author | [facility] | + + + | Organization | [facility] | + + + | Address | Unknown | + + + | Phone | Unavailable | + + + Support + + +---------+ + | Name | Relationship | Address | Phone | + + +---------+ + | Darrius Quintana | ECON | Unknown | | + + +---------+ + Care Team Providers + +------+ + | Care Timber Poisoner Name | Role | Phone | + +------+ + | Kristian Anderson DO | PCP | | + +------+ + Reason for Visit + + + | Reason | Comments | + + + | Follow-up visit | | + + + Encounter Details +--------+---------+ + + + | Date | Type | Department | Care Team | Description | +--------+---------+ + + + | 03/12/ | Office | Digestive Health | Mariella, Ailyn C, MD | CA of rectum (HCC) | | 2019 | Visit | Center at [facility] [address] | [address] | (Primary Dx) | | | | [address] | [place], | | | | | Mailcode: [place] | [place] [address] | | | | | for Health and | [phone] | | | | | [facility], [facility] [address] | | | | | | [place], [place] | | | | | | [address] | | | | | | [phone] | | | +--------+---------+ + + + [...] + + + | Blood Pressure | 151/84 | 03/12/2019 8:50 AM | | | | | PDT | | + + + + + | Pulse | 85 | 03/12/2019 8:50 AM | | | | | PDT | | + + + + + | Temperature | 36.7 C (98.1 F) | 03/12/2019 8:50 AM | | | | | PDT | | + + + + + | Respiratory Rate | - | - | | + + + + + | Oxygen Saturation | - | - | | + + + + + | Inhaled Oxygen | - | - | | | Concentration | | | | + + + + + | Weight | 90.3 kg (199 lb 1.6 | 03/12/2019 8:50 AM | | | | oz) | PDT | | + + + + + | Height | 160 cm (5' 3") | 03/12/2019 8:50 AM | | | | | PDT | | + + + + + | Body Mass Index | 35.27 | 03/12/2019 8:50 AM | | | | | PDT [...] Instructions Patient Instructions Ailyn Wolff MD - 03/12/2019 9:20 AM PDTPlan: CEA today Get report of CT chest/abdomen/pelvis with IV contrast on 03/09/19 Next colonoscopy (07/2019) See me back in 3 months. documented in this encounter Progress Notes Pino Saldana MA - 03/12/2019 9:20 AM PDTPatient presents for blood draw per Providers or aissatou Site: RIGHT A/C Time: 10:10 Patient tolerated well; ONE ATTEMPT eariKia stephenson MA - 0 03/12/2019 9:20 AM PDTExamination chaperoned by Kia Garcia MA. Ailyn Mcfarland MD - 2018 9:20 AM PDTCOLON AND RECTAL SURGERY Attending Clinic Note Established Patient Assessment: 58 y.o. female with htn, elevated lipids, heartburn, nephrolithiasis, and lichen sclerosus endoscopically obstructing mriT4 N0 M0 rectal mass (6 cm from verge) invading vagina rectal urgency and a lot of rectal bleeding on 07/19/16 went to the [facility] ED CT abdomen/pelvis with IV contrast [...] cm from anal verge presented at the [facility] Multidisciplinary GI Oncology Conference on 10/07/16 diagnosis: [...] start with FOLFOX and to hold off On chemoradiation until closer to surgery I spoke with the patient on 10/07/16. Questions answered. She wishes to proceed with the above plan. CEA (10/18/16) 7.2 repeat anal biopsy on 10/27/16, c/w malignancy 6 cycles of FOLFOX, last cycle on 12/27/2016 completed chemoradiation 4500 cGy with 540 boost, 25 fractions, 01/10/17-02/17/17 MRI pelvis (03/02/17) tumor response but circumferential margin still threatened CT chest/abdomen/pelvis with IV contrast (03/02/17) no metastatic disease small left fluid collection next to Mendoza pouch staple line presented at [facility] Multidisciplinary GI Oncology Conference on 03/10/17. Given [...] MRI (OSH, 05/17/17) close to pelvic sidewall [facility] Multidisciplinary GI Oncology Conference (06/02/17) Recommendations with [...] quadrant fistula tract, small bowel resection with Primary anastomosis, placement of a 19-[place] Islander Albert drain through the right lower quadrant [...] FOLFOX on 08/23/17 Cycle 12 FOLFOX on 09/05/17 CT chest/abdomen/pelvis with IV contrast (09/26/17) no new or worrisome lung nodules no liver nodules decreased size of pelvic mass CEA (10/31/17) 1.3 Port removed 2017 CEA (02/20/18) 1.3 CEA (05/29/18) 0.9 colonoscopy via ostomy to cecum with good prep (07/27/18) 7 mm hepatic flexure hyperplastic polyp 5 mm distal hepatic flexure hyperplastic polyp 5 mm proximal transverse colon hyperplastic polyp 5 mm distal transverse colon tubular adenoma mild to moderate left-sided diverticulosis repeat colonoscopy in [address] chest/abdomen/pelvis with IV contrast (08/02/18) unchanged tiny granuloma in left upper lobe of lung no liver lesions larger parastomal hernia nonobstructing left kidney stones atherosclerotic disease seen by Dr. Marty Thacker on 08/07/18 repeat colonoscopy in 1 year CEA (08/28/18) 1.1 CEA (11/27/18) 1.3 CT abdomen/pelvis with IV contrast (03/09/19) no liver lesions no explanation of ostomy bleeding CEA (03/12/19) 1.0 acceptable nutrition albumin (09/13/16) 3.5 quit smoking on 07/19/16 Plan: CEA today Get report of CT chest/abdomen/pelvis with IV contrast on 03/09/19 Next colonoscopy per endoscopy (07/2019) See me back in 3 months. 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 No abdominal pain now. Took a narcotic pain pill a w [place] ago. Good appetite. Tolerating her diet. Intermittent nausea but no emesis. Gaining weight. She empties her colostomy bag 3-4 times a day. She changes her colostomy bag once a week. Some problems keeping a seal; it leaked yesterday. Urinary incontinence (taking 2 medications); intermittent perineal rash. No perineal drain age but itching. Still wears pad during day and diaper at night for urinary incontinence. Got her CPAP machine; that is working well. Less sinus problems/drainage. Takes magnesiu m for leg cramps. All other systems reviewed and are negative. She comes for routine [facility] er surveillance. Objective: BP 151/84 | Pulse 85 | Temp 36.7 C (98.1 F) | Ht 1.6 m (5' 3") | Wt 90.3 kg (199 lb 1.6 oz) | BMI 35.27 kg/m | BSA 2 m General: well-developed, well-nourished female in NAD Mental Status: A&O x 4 Neurologic: moves all extremities well HEENT: anicteric sclera, EOMI, no cervical/supraclavicular/infraclavicular lymphadenopathy Abd: soft, midline incision without hernia, viable left-sided ostomy with parastomal hernia, mild left-sided tenderness, nondistended No inguinal lymphadenopathy Extremities: no calf tenderness, no clubbing/cyanosis/edema Perineum: healed, smooth, no signs of infection or mass; 2 cm long x 1 mm wide midline anal margin ulcer With this Return/Re-evaluation patient, I spent 10 minutes of [id number]-[id number] time, of which m ore than half the time was spent in counseling. 8 minute document review prior to my seeing [...] | | | | | [place], | | | | | | [place] [address] | | | | | | [phone] | | | | | | | | +--------+---------+ + + + + + +--------+ + + | Name | Type | Priori | Associated Diagnoses | Order Schedule | | | | ty | | | + + +--------+ + + | ROUTINE | Procedures | Routin | CA of rectum (HCC) | Ordered: 03/12/2019 | | VENIPUNCTURE, | | e | | | | VENOUS-BACK OFFICE | | | | | + + +--------+ + + documented as of this encounter Procedures + +--------+ + + + | Procedure Name | Priori | Date/Time | Associated Diagnosis | Comments | | | ty | | | | + +--------+ + + + | CARCINOEMBRYONIC AG, | Routin | 03/12/2019 | CA of rectum (HCC) | Results for this | | SERUM | e | 10:17 AM | | procedure are in the | | | | PDT | | results section. | + +--------+ + + + documented in this encounter Results CARCINOEMBRYONIC AG, SERUM (03/12/2019 10:17 AM PDT) + +-------+ + + + | Component | Value | Ref Range | Performed | Pathologist | | | | | At | Signature | + +-------+ + + + | CEA-CARCINO | 1.0 | <=2.5 ng/mL | [facility] | | [...] | + + + + + | [facility] | [address] | [place] [address] | | | SERVICES, CORE | [address] | | | + + + + + documented in this encounter Visit Diagnoses + + | Diagnosis | + + | 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
--- OUTSIDE RECORDS SUMMARY | ~2019-05-24 | XMS | Encounter Summary ---
Demographics + + + | Address | [address] | | | [place] [address] | + + + | Home Phone | | + + + | Preferred Language | Unknown | + + + | Marital Status | Single | + + + | Hindu Affiliation | NON | + + + [...] Team Providers + +------+ + | Care Documentation Liaison Name | Role | Phone | + +------+ + | Justin Kristian | PCP | | + +------+ + Encounter Details +--------+ + + + + | Date | Type | Department | Care Team | Description | +--------+ + + + + | 07/20/ | Document-Sc | UNKNOWN DEPARTMENT | Unknown . | | | 2016 | anned | [address] | | | | | | [address] | | | | | | [place], [place] | | | | | | [address] | | | +--------+ + + + [...] | | | | | [facility] [facility] | | | | | | [place] [address] | | | | | | [phone] | | | | | | | | +--------+---------+ + + + documented as of this encounter Procedures + +--------+ + + + | Procedure Name | Priori | Date/Time | Associated Diagnosis | Comments | | | ty | | | | + +--------+ + + + | RADIOLOGY | | 07/20/2016 | | Results for this | | | | 12:00 AM | | procedure are in the | | | | PST | | results section. | + +--------+ + + + documented in this encounter Results RADIOLOGY (07/20/2016 12:00 AM PST) + + + | Narrative | Performed At | + + + | | | + + + documented in this encounter Visit Diagnoses Not on filedocumented in this encounter"
--- OUTSIDE RECORDS SUMMARY | ~2019-05-24 | XMS | Encounter Summary ---
Demographics + + + | Address | [address] | | | [place] [address] | + + + | Home Phone | | + + + | Preferred Language | Unknown | + + + | Marital Status | Single | + + + | Adventism Affiliation | NON | + + + | Race | White | + + + | Ethnic Group | Not or | + + + Author + + + | Author | [facility] | + + + | Organization | [facility] | + + + | Address | Unknown | + + + | Phone | Unavailable | + + + Support + + +---------+ + | Name | Relationship | Address | Phone | + + +---------+ + | Darrius Quintana | ECON | Unknown | | + + +---------+ + Care Team Providers + +------+ + | Care Hose Builder Name | Role | Phone | + +------+ + | Kristian Anderson | PCP | | + +------+ + Reason for Visit + + + | Reason | Comments | + + + | Referral To Surgery | | | - General | | + + + Encounter Details +--------+ + + + + | Date | Type | Department | Care Team | Description | +--------+ + + + + | 09/16/ | Abstract | Digestive Health | Clinic, Surgery | Referral To Surgery | | 2017 | | [place] at [facility] [address] | | - General | | | | [address] | | | | | | Mailcode: [place] | | | | | | for Health and | | | | | | Healing, [address] | | | | | | [place], [place] | | | | | | [address] | | | | | | [phone] | | | +--------+ + + + [...] | | | | | [place], | | | | | | [place] [address] | | | | | | [phone] | | | | | | | | +--------+---------+ + + + documented as of this encounter Visit Diagnoses Not on filedocumented in this encounter"
--- OUTSIDE RECORDS SUMMARY | ~2019-05-24 | XMS | Encounter Summary ---
Demographics + + + | Address | [address] | | | [place] [address] | + + + | Home Phone [...] Author + + + | Author | [facility] | + + + | Organization | [facility] | + + + | Address | Unknown | + + + | Phone | Unavailable | + + + Support + + +---------+ + | Name | Relationship | Address | Phone | + + +---------+ + | Darrius Quintana | ECON | Unknown | | + + +---------+ + Care Team Providers + +------+ + | Care Planisher Name | Role | Phone | + [...] | +--------+ + + + + | 10/19/ | Abstract | Digestive Health | Ailyn Wolff MD | Medical Records | | 2017 | | Center at [facility] [address] | [address] | Review | | | | [address] | [place], | | | | | Mailcode: [place] | [place] [address] | | | | | for Health and | [phone] | | | | | [facility] 2 | | | | | | [place], [place] | | | | | | [address] | | | | | | [phone] | | | +--------+ + + + [...] | | | | | [place], | | | | | | [place] [address] | | | | | | [phone] | | | | | | | | +--------+---------+ + + + documented as of this encounter Visit Diagnoses Not on filedocumented in this encounter"
--- OUTSIDE RECORDS SUMMARY | ~2019-05-24 | XMS | Clinical Summary ---
Demographics + + + | Address | [address] | | | [place] [address] | + + + | Home Phone | | + + + | Preferred Language | Unknown | + + + | Marital Status | | + + + | Lutheran Affiliation | Unknown | + + + | Race | Unknown | + + + | Ethnic Group | Unknown | + + + Author + + + | Author | [facility] (Historical as of | | | 03-10-19) | + + + | Organization | [facility] (Historical as of | | | 03-10-19) | + + + | Address | Unknown | + + + | Phone | Unavailable | + + + Support + + +---------+ + | Name | Relationship | Address | Phone | + + +---------+ + | Erika Phillips | ECON | Unknown | | + + +---------+ + Care Team Providers + +------+ + | Care Herb Grower Name | Role | Phone | + +------+ + | Kristian Anderson DO | PP | | + +------+ + Allergies Not on File Current Medications Not on file Active Problems Not on file Social History + +-------+ +--------+------+ | Tobacco [...] on file | | + + + Plan of Treatment + + + + + | Health Maintenance | Due Date | Last Done | Comments | + + + + + | Vaccine: | | | | | Dtap/Tdap/Td (1 - | 8 | | | | Tdap) | | | | + + + + + | Cervical Cancer | | | | | Screening (Pap) | 9 | | | + + + + + | Vaccine: Zoster (1 | | | | | of 2) | 9 | | | + + + + + | Vaccine: Influenza | | | | | (#1) | 9 | | | + + + + + Results Not on filefrom Last 3 Months Insurance + +--------+ +------+-------+ + | Payer | Benefi | Subscriber | Type | Phone | Address | | | t Plan | ID | | | | | | / | | | | | | | Group | | | | | + +--------+ +------+-------+ + | MEDICAID | [place]ICA | [id number] | | | [address] | | | [place] | | | | [place] | | | [place] | | | | [address] | + +--------+ +------+-------+ + + +--------+ +--------+ + + | Guarantor Name | Accoun | Relation to | Date | Phone | Billing Address | | | t Type | Patient | of | | | | | | | | | | + +--------+ +--------+ + + | JENN BYRNES | Person | Self [birth year] Home: | [address] | | | al/Matthew | | 1961 | [phone] [address] [place], | | | [place] | | | [address] | [place] [address] | + +--------+ +--------+ + +"
--- OUTSIDE RECORDS SUMMARY | ~2019-05-24 | XMS | Encounter Summary ---
Demographics + + + | Address | [address] | | | [place] [address] | + + + | Home Phone [...] Author + + + | Author | [facility] | + + + | Organization | [facility] | + + + | Address | Unknown | + + + | Phone | Unavailable | + + + Support + + +---------+ + | Name | Relationship | Address | Phone | + + +---------+ + | Darrius Quintana | ECON | Unknown | | + + +---------+ + Care Team Providers + +------+ + | Care Customs Investigator Name | Role | Phone | + +------+ + | Kristian Anderson DO | PCP | | + +------+ + Encounter Details +--------+ + + + + | Date | Type | Department | Care Team | Description | +--------+ + + + + | 10/14/ | Telephone | Digestive Health | Ailyn Wolff MD | | | 2017 | | [place] at [facility] [address] | [address] | | | | | [address] | [place], | | | | | Mailcode: [place] | [place] [address] | | | | | for Health and | [phone] | | | | | [place] [address] | | | | | | [place], [place] | | | | | | [address] | | | | | | [phone] | | | +--------+ + + + [...] | | | | | [place], | | | | | | [place] [address] | | | | | | [phone] | | | | | | | | +--------+---------+ + + + documented as of this encounter Visit Diagnoses Not on filedocumented in this encounter"
--- OUTSIDE RECORDS SUMMARY | ~2019-05-24 | XMS | Encounter Summary ---
Demographics + + + | Address | [address] | | | [place] [address] | + + + | Home Phone | | + + + | Preferred Language | Unknown | + + + | Marital Status | Single | + + + | Amish Affiliation | NON | + + + | Race | White | + + + | Ethnic Group | Not or | + + + Author + + + | Author | [facility] | + + + | Organization | [facility] | + + + | Address | Unknown | + + + | Phone | Unavailable | + + + Support + + +---------+ + | Name | Relationship | Address | Phone | + + +---------+ + | Darrius Quintana | ECON | Unknown | | + + +---------+ + Care Team Providers + +------+ + | Care Computer Support Specialist Instructor Name | Role | Phone | + [...] | | 2017 | | Center at [facility] [address] | [address] | Review | | | | [address] | [place], | | | | | Mailcode: [place] | [place] [address] | | | | | for Health and | [phone] | | | | | [facility] 2 | | | | | | [place], [place] | | | | | | [address] | | | | | | [phone] | | | +--------+ + + + [...] | | | | | [place], | | | | | | [place] [address] | | | | | | [phone] | | | | | | | | +--------+---------+ + + + documented as of this encounter Visit Diagnoses Not on filedocumented in this encounter"
--- OUTSIDE RECORDS SUMMARY | ~2019-05-24 | XMS | Encounter Summary ---
Demographics + + + | Address | [address] | | | [place] [address] | + + + | Home Phone | | + + + | Preferred Language | Unknown | + + + | Marital Status | Single | + + + | Uatsdin Affiliation | NON | + + + [...] Team Providers + +------+ + | Care Languages And Literature Instructor Name | Role | Phone | + +------+ + | Kristian Anderson DO | PCP | | + +------+ + Encounter Details +--------+ + + + + | Date | Type | Department | Care Team | Description | +--------+ + + + + | 01/03/ | Document-Sc | Health Information | Unknown . | | | 2017 | anned | Services [address] | | | | | | [address] | | | | | | Mailcode: [id number] | | | | | | [facility] | | | | | | [place], [place] | | | | | | [address] | | | | | | [phone] | | | +--------+ + + + [...] | | | | | [place], | | | | | | [place] [address] | | | | | | [phone] | | | | | | | | +--------+---------+ + + + documented as of this encounter Procedures + +--------+ + + + | Procedure Name | Priori | Date/Time | Associated Diagnosis | Comments | | | ty | | | | + +--------+ + + + | RADIOLOGY | | 01/03/2017 | | Results for this | | | | 12:00 AM | | procedure are in the | | | | PDT | | results section. | + +--------+ + + + | RADIOLOGY | | 01/03/2017 | | Results for this | | | | 12:00 AM | | procedure are in the | | | | PDT | | results section. | + +--------+ + + + documented in this encounter Results RADIOLOGY (01/03/2017 12:00 AM PDT) + + + | Narrative | Performed At | + + + | | | + + + RADIOLOGY (01/03/2017 12:00 AM PDT) + + + | Narrative | Performed At | + + + | | | + + + documented in this encounter Visit Diagnoses Not on filedocumented in this encounter"
--- OUTSIDE RECORDS SUMMARY | ~2019-05-24 | XMS | Encounter Summary ---
Demographics + + + | Address | [address] | | | [place] [address] | + + + | Home Phone | | + + + | Preferred Language | Unknown | + + + | Marital Status | Single | + + + | Mormon Affiliation | NON | + + + | Race | White | + + + | Ethnic Group | Not or | + + + Author + + + | Author | [facility] | + + + | Organization | [facility] | + + + | Address | Unknown | + + + | Phone | Unavailable | + + + Support + + +---------+ + | Name | Relationship | Address | Phone | + + +---------+ + | Darrius Quintana | ECON | Unknown | | + + +---------+ + Care Team Providers + +------+ + | Care Primary Montessori Teacher Name | Role | Phone | [...] | | | | CT CHEST, | [place], [place] | Mailcode: | | | | | ABDOMEN AND | [address] | [address] [facility] | | | | | [address] | Phone: | Hospital | | | | | CONTRAST [place] | [phone] | [place], [place] | | | | | CAT SCAN OF | Fax: | [address] | | | | | CHEST | [phone] | Phone: | | | | | CONTRAST [place] | | [phone] | | | | | CT | | Fax: | | | | | ABDOMEN&PELV | | [phone] | | | | | IS | [...] | | | | CT CHEST, | [place], [place] | Mailcode: | | | | | ABDOMEN AND | [address] | [address] [facility] | | | | | PELVIS W IV | Phone: | Hospital | | | | | CONTRAST [place] | [phone] | [place], [place] | | | | | CAT SCAN OF | Fax: | [address] | | | | | CHEST | [phone] | Phone: | | | | | CONTRAST [place] | | [phone] | | | | | CT | | Fax: | | | | | ABDOMEN&PELV | | [phone] | | | | | IS | [...] | 2017 | Encounter | Services at [facility] | [address] | | | | | [address] | [place], | | | | | [place] Mailcode: | [place] [address] | | | | | [address] [facility] | [phone] | | | | | [place], [place] | | | | | | [address] | | | | | | [phone] | | | +--------+ + + + [...] | | | | | [place], | | | | | | [place] [address] | | | | | | [phone] | | | | | | | [...]
--- OUTSIDE RECORDS SUMMARY | ~2019-05-24 | XMS | Encounter Summary ---
Demographics + + + | Address | [address] | | | [place] [address] | + + + | Home Phone | | + + + | Preferred Language | Unknown | + + + | Marital Status | Single | + + + | Adventist Affiliation | NON | + + + | Race | White | + + + | Ethnic Group | Not or | + + + Author + + + | Author | [facility] | + + + | Organization | [facility] | + + + | Address | Unknown | + + + | Phone | Unavailable | + + + Support + + +---------+ + | Name | Relationship | Address | Phone | + + +---------+ + | Darrius Quintana | ECON | Unknown | | + + +---------+ + Care Team Providers + +------+ + | Care Street Supervisor Name | Role | Phone | + +------+ + | Kristian Anderson DO | PCP | | + +------+ + Encounter Details +--------+ + + + + | Date | Type | Department | Care Team | Description | +--------+ + + + + | 08/24/ | MyChart | Digestive Health | Ailyn Wolff MD | RE: Work | | 2018 | Encounter | Center at [facility] [address] | [address] | | | | | [address] | [place] H[place], | | | | | Mailcode: [place] | [place] [address] | | | | | for Health and | [phone] | | | | | [facility] [address] | | | | | | [place], [place] | | | | | | [address] | | | | | | [phone] | | | +--------+ + + + [...] | | | | | [place], | | | | | | [place] [address] | | | | | | [phone] | | | | | | | | +--------+---------+ + + + documented as of this encounter Visit Diagnoses Not on filedocumented in this encounter"
--- OUTSIDE RECORDS SUMMARY | ~2019-05-24 | XMS | Encounter Summary ---
Demographics + + + | Address | [address] | | | [place] [address] | + + + | Home Phone | | + + + | Preferred Language | Unknown | + + + | Marital Status | Single | + + + | Muslim Affiliation | NON | + + + | Race | White | + + + | Ethnic Group | Not or | + + + Author + + + | Author | [facility] | + + + | Organization | [facility] | + + + | Address | Unknown | + + + | Phone | Unavailable | + + + Support + + +---------+ + | Name | Relationship | Address | Phone | + + +---------+ + | Darrius Quintana | ECON | Unknown | | + + +---------+ + Care Team Providers + +------+ + | Care Sorting Machine Attendant Name | Role | Phone | + +------+ + | Kristian Anderson DO | PCP | | + +------+ + Encounter Details +--------+ + + + + | Date | Type | Department | Care Team | Description | +--------+ + + + + | 01/24/ | MyChart | Digestive Health | Ailyn Wolff MD | RE: reschedule | | 2019 | Encounter | Center at [facility] [address] | [address] | | | | | [address] | [address] [address] [facility] | | | | | Mailcode: [place] | [place] [address] | | | | | for Health and | [phone] | | | | | [place] [address] | | | | | | [place], [place] | | | | | | [address] | | | | | | [phone] | | | +--------+ + + + [...] | | | | | [address] [address], | | | | | | [place] [address] | | | | | | [phone] | | | | | | | | +--------+---------+ + + + documented as of this encounter Visit Diagnoses Not on filedocumented in this encounter"
--- OUTSIDE RECORDS SUMMARY | ~2019-05-24 | XMS | Encounter Summary ---
Demographics + + + | Address | [address] | | | [place] [address] | + + + | Home Phone | | + + + | Preferred Language | Unknown | + + + | Marital Status | Single | + + + | Congregation Affiliation | NON | + + + | Race | White | + + + | Ethnic Group | Not or | + + + Author + + + | Author | [facility] | + + + | Organization | [facility] | + + + | Address | Unknown | + + + | Phone | Unavailable | + + + Support + + +---------+ + | Name | Relationship | Address | Phone | + + +---------+ + | Darrius Quintana | ECON | Unknown | | + + +---------+ + Care Team Providers + +------+ + | Care Spray Booth Operator Name | Role | Phone | [...] + + | 08/15/ | Abstract | Digestive Health | Ailyn Wolff MD | Outside Records | | 2018 | | Center at [facility] [address] | [address] | Received | | | | [address] | [address] [place], | | | | | Mailcode: [place] | [place] [address] | | | | | for Health and | [phone] | | | | | [facility] 2 | | | | | | [place], [place] | | | | | | [address] | | | | | | [phone] | | | +--------+ + + + [...] | | | | | [address] [place], | | | | | | [place] [address] | | | | | | [phone] | | | | | | | | +--------+---------+ + + + documented as of this encounter Visit Diagnoses Not on filedocumented in this encounter"
--- OUTSIDE RECORDS SUMMARY | ~2019-05-24 | XMS | Encounter Summary ---
Demographics + + + | Address | [address] | | | [place] [address] | + + + | Home Phone | | + + + | Preferred Language | Unknown | + + + | Marital Status | Single | + + + | Jain Affiliation | NON | + + + | Race | White | + + + | Ethnic Group | Not or | + + + Author + + + | Organization | Unknown | + + + | Address | Unknown | + + + | Phone | Unavailable | + + + Support + + +---------+ + | Name | Relationship | Address | Phone | + + +---------+ + | Darrius Quintaan | ECON | Unknown | | + + +---------+ + Care Team Providers + +------+ + | Care Operational Test Mechanic Name | Role | Phone | + +------+ + | Kristian Anderson DO | PCP | | + +------+ + Encounter Details +--------+--------+ + + + | Date | Type | Department | Care Team | Description | +--------+--------+ + + + | 03/12/ | Travel | | | | | 2018 | | | | | +--------+--------+ + + + Social History + +-------+ [...] Description | +--------+---------+ + + + | 11/25/ | Office | Surgery | Ailyn Wolff MD | | | 2019 | Visit | | [address] | | | | | | [place], | | | | | | [place] [address] | | | | | | [phone] | | | | | | | | +--------+---------+ + + + documented as of this encounter Visit Diagnoses Not on filedocumented in this encounter"
--- OUTSIDE RECORDS SUMMARY | ~2019-05-24 | XMS | Encounter Summary ---
Demographics + + + | Address | [address] | | | [place] [address] | + + + | Home Phone | | + + + | Preferred Language | Unknown | + + + | Marital Status | Single | + + + | Taoism Affiliation | NON | + + + [...] Team Providers + +------+ + | Care Teacher Instrumental Name | Role | Phone | + +------+ + | Kristian Anderson DO | PCP | | + +------+ + Encounter Details +--------+ + + + + | Date | Type | Department | Care Team | Description | +--------+ + + + + | 06/30/ | Procedure | 6A Intra Op [facility] | | | | 2017 | Pass | [facility] | | | | | | Admitting Desk | | | | | | Located on the 9th | | | | | | floor [address] [facility] | | | | | | [address] | | | | | | [place], [place] | | | | | | [address] | | | +--------+ + + + [...] | | | | | [place] [address], | | | | | | [place] [address] | | | | | | [phone] | | | | | | | | +--------+---------+ + + + documented as of this encounter Visit Diagnoses Not on filedocumented in this encounter"
--- OUTSIDE RECORDS SUMMARY | ~2019-05-24 | XMS | Encounter Summary ---
Demographics + + + | Address | [address] | | | [place] [address] | + + + | Home Phone | | + + + | Preferred Language | Unknown | + + + | Marital Status | Single | + + + | Sabianist Affiliation | NON | + + + [...] Team Providers + +------+ + | Care Retail Advisor Name | Role | Phone | + [...] | | | | CT CHEST, | [place], [place] | Mailcode: | | | | | ABDOMEN AND | [address] | [address] [facility] | | | | | PELVIS W IV | Phone: | Hospital | | | | | [place] | [phone] | [place], [place] | | | | | CAT SCAN OF | Fax: | [address] | | | | | CHEST | [phone] | Phone: | | | | | [place] | | [phone] | | | | | CT | | Fax: | | | | | ABDOMEN&PELV | | [phone] | | | | | IS | [...] | | | | MR RECTAL | [facility] [place] | Mailcode: | | | | | [place] | [address] | [address] | | | | | MRI, PELVIS, | Phone: | [place] | | | | | COMBO | [phone] | Research | | | | | | Fax: | Center | | | | | | [phone] | [place], [place] | | | | | | | [address] | | | | | | | Phone: | | | | | | | [phone] | | | | | | | Fax: | | | | | | | [phone] | +--------+--------+ + + + + Reason [...] | | 2017 | | Center at [facility] [address] | [address] | rectal protocol and | | | | [address] | [address] [place], | CT c/a/p after 6 | | | | Mailcode: [place] | [place] [address] | cycles of chemo) | | | | for Health and | [phone] | | | | | [facility] 2 | | | | | | [place], [place] | | | | | | [address] | | | | | | [phone] | | | +--------+ + + + [...] | | | | | | [place] [address] | | | | | | [phone] | | | | | | | [...]
--- OUTSIDE RECORDS SUMMARY | ~2019-05-24 | XMS | Encounter Summary ---
Demographics + + + | Address | [address] | | | [place] [address] | + + + | Home Phone [...] Author + + + | Author | [facility] | + + + | Organization | [facility] | + + + | Address | Unknown | + + + | Phone | Unavailable | + + + Support + + +---------+ + | Name | Relationship | Address | Phone | + + +---------+ + | Darrius Quintana | ECON | Unknown | | + + +---------+ + Care Team Providers + +------+ + | Care Transport Specialist Name | Role | Phone | + [...] | +--------+ + + + + | 04/28/ | Abstract | Digestive Health | Ailyn Wolff MD | Medical Records | | 2018 | | Center at [facility] [address] | [address] | Review | | | | [address] | [address] [address] [place], | | | | | Mailcode: [place] | [place] [address] | | | | | for Health and | [phone] | | | | | [facility] 2 | | | | | | [place], [place] | | | | | | [address] | | | | | | [phone] | | | +--------+ + + + [...] | | | | | [address] [address], | | | | | | [place] [address] | | | | | | [phone] | | | | | | | | +--------+---------+ + + + documented as of this encounter Visit Diagnoses Not on filedocumented in this encounter"
--- OUTSIDE RECORDS SUMMARY | ~2019-05-24 | XMS | Encounter Summary ---
Demographics + + + | Address | [address] | | | [place] [address] | + + + | Home Phone | | + + + | Preferred Language | Unknown | + + + | Marital Status | Single | + + + | Alevism Affiliation | NON | + + + | Race | White | + + + | Ethnic Group | Not or | + + + Author + + + | Author | [facility] | + + + | Organization | [facility] | + + + | Address | Unknown | + + + | Phone | Unavailable | + + + Support + + +---------+ + | Name | Relationship | Address | Phone | + + +---------+ + | Darrius Quintana | ECON | Unknown | | + + +---------+ + Care Team Providers + +------+ + | Care Photograph Tinter Name | Role | Phone | + +------+ + | Justin Kristian | PCP | | + +------+ + Reason for Visit + + + | Reason | Comments | + + + | Surgery Discussion | | + + + Encounter Details +--------+ + + + + | Date | Type | Department | Care Team | Description | +--------+ + + + + | 10/14/ | Telephone | Digestive Health | Ailyn Wolff MD | Surgery Discussion | | 2017 | | Center at [facility] [address] | [address] | | | | | [address] | [address] [place], | | | | | Mailcode: [place] | [place] [address] | | | | | for Health and | [phone] | | | | | [facility] 2 | | | | | | [place], [place] | | | | | | [address] | | | | | | [phone] | | | +--------+ + + + [...] | | | | | [address] [place], | | | | | | [place] [address] | | | | | | [phone] | | | | | | | | +--------+---------+ + + + documented as of this encounter Visit Diagnoses Not on filecumented in this encounter"
--- OUTSIDE RECORDS SUMMARY | ~2019-05-24 | XMS | Encounter Summary ---
Demographics + + + | Address | [address] | | | [place] [address] | + + + | Home Phone [...] Providers + +------+ + | Care Industrial Psychology Professor Name | Role | Phone | + [...] 01/10/ | Abstract | Dig[facility]ive Health | Ailny Wolff MD | Medical Records | | 2018 | | Center at [facility] [address] | [address] | Review | | | | [address] | [address] [place], | | | | | Mailcode: [place] | [place] [address] | | | | | for Health and | [phone] | | | | | [facility] 2 | | | | | | [place], [place] | | | | | | [address] | | | | | | [phone] | | | +--------+ + + + [...] | | | | | [address] [place], | | | | | | [place] [address] | | | | | | [phone] | | | | | | | | +--------+---------+ + + + documented as of this encounter Visit Diagnoses Not on filedocumented in this encounter"
--- OUTSIDE RECORDS SUMMARY | ~2019-05-24 | XMS | Encounter Summary ---
Demographics + + + | Address | [address] | | | [place] [address] | + + + | Home Phone [...] Author + + + | Author | [facility] | + + + | Organization | [facility] | + + + | Address | Unknown | + + + | Phone | Unavailable | + + + Support + + +---------+ + | Name | Relationship | Address | Phone | + + +---------+ + | Darrius Quintana | ECON | Unknown | | + + +---------+ + Care Team Providers + +------+ + | Care Cook Chili Name | Role | Phone | + [...] | | | | [facility] | [place], [place] | | | | | [address] [address] | [address] | | | | | [place], [place] | | | | | | [address] | | | | | | [phone] | | | +--------+ + + + [...] | | | | | [place] [address], | | | | | | [place] [address] | | | | | | [phone] | | | | | | | | +--------+---------+ + + + documented as of this encounter Visit Diagnoses Not on filedocumented in this encounter"
--- OUTSIDE RECORDS SUMMARY | ~2019-05-24 | XMS | Encounter Summary ---
Demographics + + + | Address | [address] | | | [place] [address] | + + + | Home Phone | | + + + | Preferred Language | Unknown | + + + | Marital Status | Single | + + + | Church Affiliation | NON | + + + [...] Team Providers + +------+ + | Care Personal Vehicle Advisor Name | Role | Phone | + +------+ + | Silvioct Kristian | PCP | | + +------+ + Reason for Visit AUTH/CERT +--------+--------+ + + + + | Status [...] + + + + | 06/30/ | Hospital | [facility] [address] | Ailyn Wolff MD | | | 2017 - | Encounter | [address] | [address] | | | | | [id number] | Amita Hines [place], | | | 07/05/ | | [facility], | [place] [address] | | | 2016 | | [place] [address] | [phone] | | | | | [phone] | | | +--------+ + + + [...] + + + | Blood Pressure | 141/73 | 07/05/2017 12:34 PM | | | | | PST | | + + + + + | Pulse | 87 | 07/05/2017 12:34 PM | | | | | PST | | + + + + + | Temperature | 36.7 C (98.1 F) | 07/05/2017 6:42 AM | | | | | PST | | + + + + + | Respiratory Rate | 16 | 07/05/2017 12:34 PM | | | | | PST | | + + + + + | Oxygen Saturation | 98% | 07/05/2017 12:34 PM | | | | | PST | | + + + + + | Inhaled Oxygen | - | - | | | Concentration | | | | + + + + + | Weight | 74.8 kg (164 lb 14.5 | 06/30/2017 5:49 AM | | | | oz) | PST | | + + + + + | Height | 160 cm (5' 3") | 06/30/2017 5:49 AM | | | | | PST | | + + + + + | Body Mass Index | 29.21 | 06/30/2017 5:49 AM | | | | | PST [...] + + documented as of this encounter Discharge Summaries Natalie Poon MD - 07/05/2017 7:57 AM PSTFormatting of this note might be different fro m the original. [facility] Discharge Summary Green Service Admit Date: 06/30/2017 5:30 AM Discharge Date: 07/05/17 PCP: Kristian Anderson DO Attending Physician: Ailyn Wolff MD Discharging Provider: Natalie Poon MD Reason for Admission: MRI T4 N0 M0 rectal mass with invasion to vagina Principal Final Diagnosis: MRI T4 N0 M0 rectal mass with invasion to vagina Additional Diagnoses: Acute post-operative pain Procedures: 06/30/17 1. Exploratory laparotomy. 2. Extensive lysis of adhesions (modifier 22 requested, this took more than 3.5 hours). 3. Excision of left lower quadrant fistula tract. 4. Total mesorectal excision, intersphincteric abdominoperineal resection, en b loc resection of left ovary and left fallopian tube and posterior vaginal wall. 5. Placement of a 19-Sudanese Malissa drain through the right lower quadrant wall i n the presacral space. 6. Cystoscopy and bilateral ureteral stent placement by Urology. 7. Primary repair of posterior vaginal defect. 8. Small bowel resection with primary anastomosis. Hospital Course: Patient is a 56-year-old female with MRI T4N0M0 rectal cancer s/p neoadjuvant FOLFOX and ch emoradiation. . She underwent the above procedure on 06/30/17. She tolerated the procedure we ll and recovered uneventfully on the gurrola post-operatively. She was transitioned off her epi dural and pain was well controlled on oral medications by day of discharge. Her Castillo cathet er was removed 07/04, and she was voiding without difficulty. PT was consulted and recommend ed home with assist PRN, and front wheel walker which was prescribed prior to discharge. She was discharged home on post-op day 5 at which time she was tolerating a regular diet, had g ood pain control on oral medications, and was ambulating without difficulty. Lines: Pelvic drain and anthony removed prior to discharge Antibiotics: None Follow up: [address] Thacker for staple removal (called to request appointment) & Jul 27, [address] Wolff scheduled Education was provided to the patient and family/caregiver regarding: activity restrictions , wound care, diet, line and drain care Discharge Medications: Medication List START taking these medications acetaminophen 500 mg Tab Commonly known as: TYLENOL Take 2 tablets by mouth every six hours. Indications: Pain oxyCODONE (immediate release) 5 mg Tab Commonly known as: ROXICODONE Take 1-2 tablets by mouth every six hours as needed for moderate pain. Indications: Pain Sennosides 8.6 mg Cap Commonly known as: Senna Take 1 capsule by mouth two times daily. Take while on narcotic pain medication Indications : constipation CONTINUE taking these medications biotin 1,000 mcg Chew buPROPion SR 150 mg Tb12 Commonly known as: WELLBUTRIN-SR, ZYBAN clobetasol 0.05 % Oint Commonly known as: TEMOVATE CRANBERRY ORAL MULTIVITAMIN ORAL nystatin 100,000 unit/gram Powd Commonly known as: MYCOSTATIN potassium chloride 20 mEq Pack Commonly known as: KLOR-CON VITAMIN C ORAL STOP taking these medications diazePAM 5 mg Tab Commonly known as: VALIUM NORCO 5-325 mg Tab Generic drug: HYDROcodone-acetaminophen Allergies: No Known Allergies Code Status: Full POLST completed: no Additional Instructions: Condition on Discharge Good Wound Care StaplesKeep your incision clean and dry. Showers are permitted. Shower daily with antibac terial soap, let the shower water rinse off your incisions and let the wound air dry or pat dry with a clean towel. Use a clean towel with each shower. No soaking in water (baths, jacu zzi, swimming) until all wounds are FULLY healed over or as directed by your provider. If you have myrna these will be removed by your provider before discharge or at a follow-up a ppointment in approximately 2 weeks. If you have steri-strips over your incision. The steri -strips will remain on until they start to curl off on the ends. After they start to curl ( ~10-14 days), it is ok to gently tease them off your skin. Refer to the other discharge orde rs below for information on how to monitor your site for infection and when to call the clin ic. Refer to the other discharge orders below for information on how to monitor your site fo r infection and when to call the clinic. Rubbing/Irritation: If clothes rub your incision, w e recommend covering with loose gauze or a band-aid after your outer dressing has been remov ed. Lotions/Creams: Do not use other lotions, creams or ointments on incision unless directe d to do so by your physician. Diet Regular Regular diet, low fiber for 1-2 weeks as tolerated ( avoid salads, raw vegies and fruit as tolerated). Continue your protein drink twice daily for improved recovery. 6-8 cups of flu id are recommended. Activity Activity Showers are permitted, no soaking in water (baths, jacuzzi, swimming) for approximately 4 w eeks or until all wounds are FULLY healed or cleared by your provider. ACTIVITY: Walking may be your primary source of exercise. It is very important that you wal k at least three times a day. These can be short walks that you can gradually increase over time as your strength improves. The majority of time should be spent out of bed. It is ok to take naps if you are tired, but alternate napping with activity. Please follow abdominal precautions such as log roll to get out of bed, do not push or lift anything greater than 10lbs for 4-6 weeks (a gallon of milk is approximately 8lbs.), avoid bending over or squatting, avoid bearing down or holding your breath, avoid low chairs (mauricio cially soft ones as these may be difficult to get out of), and wear your abdominal binder if you were given one. If you lift something and your surgical wounds and areas of repair hurt , then please stop performing that activity (e.g. Bending over to lift a child, box, etc). I f you normally perform strenuous activity including activities such weight lifting, chopping wood, or do any significant lifting at work, you should stop these activities until cleared by your doctor at follow-up. Although it is important to try to continue/improve your physi leslie activity, try to not exhaust yourself while healing. NO DRIVING WHILE ON NARCOTICS. If taking narcotic pain medicine (e.g. Oxycodone, Percocet, Hydrocodone, Vicodin) you CANNOT drive or operate machinery, as these medicines may make you drowsy and lose concentration. Your reaction time and judgement will be impaired, just as t nickolas you were intoxicated. Other Discharge Orders and Instructions Medication Refill Instructions: If you need a refill on any narcotic pain medications, please call the clinic ([phone] ) by 2 pm on for any weekend needs. Prescriptions can be electronically sent to you r pharmacy if they are able to accept "eRx" prescriptions. The resident will not be able to fill narcotic scripts after 5 pm daily and on the weekends. Please plan ahead and keep tra ck of how many pain pills you have left. When to Call the Doctor - If your incision becomes red, swollen, or has any bloody or pus-like drainage. - If you have a fever of 101.5 F or greater or if you have chills - If you have increased pain, unrelieved by your pain medications - If you have persistent nausea, vomiting, diarrhea, or no bowel movement for more than 2 d ays after discharge from the hospital - If you develop any unusual signs or symptoms, including chest pain, shortness of breath, pulmonary embolism, leg swelling, pain or redness that is abnormal for you, and other sympto ms of concern - If you have any questions or concerns. How to Call the Doctor You may contact your doctor Tuesday through Tuesday during the day time hours by calling the surgery office at [phone]. After hours, weekends and holidays, you may call the hospital metal washing machine operator at [phone] and have the sales operations assistant Green Team for general surgery paged. Constipation: It is very important to avoid constipation and straining while trying to have a bowel movem ent. It is common to experience constipation after your operation and when taking narcotics . There are medication like stool softeners ( colace a.k.a. Docusate Sodium) or laxatives ( miralax, senokot+stool softener, Dulcolax suppository). Please work towards having a bowel movement every 1-2 days. A hot drink each morning will also help the sphincter to work in p ushing the stool forward. It is important to stay hydrated, about 45- 60 fluid ounces daily , and this will help your bowel function. PAIN NO DRIVING WHILE ON NARCOTICS. It is expected that you will experience pain after your operation, and it is important to h ave you manage your pain to increase your activity, sleep, and overall healing. You are woodrow ng sent home with a prescription for pain relief. This should be taken every 3-6 hours pe r your instructions. Acetaminophen (Tylenol): You may use hrby-lyl-mryykuo (OTC) acetaminophen for milder pain. Do not take if we have specifically instructed you to avoid it. DO NOT TO TAKE MORE THAN 3,2 00MG OF TYLENOL IN 24HOURS for short-term use; For long-term use or patients older than 65 y ears old, you should not take more than 3,000mg. Some medications contain Tylenol already - these are usually medications with Hydrocodone such as Vicodin or [place]. It is important to keep track of your TOTAL amount of acetaminoph en (Tylenol) as too much can be hard on your liver. ABSOLUTELY NO ALCOHOL or BENZODIAZEPINES WITH NARCOTICS OPIATE PAIN MEDICINE ADDICTION We expect that as you get farther out from surgery and are recovering well, that you won't need as much narcotic pain medication. These medications can be addictive if used long-term, but are generally considered safe for short term use to manage pain following surgery or pa inful procedures. There are 2 ways of weaning yourself off pain medications: By dose: For example (your dose/drug may be different): Instead of taking 10mg of Oxycodone every 4 hours as needed, decrease your dose to 7.5mg (cut the tablet in half) or 5mg but st ay on the every 4 hour as needed schedule that has been working. <- - - - -< OR >- - - - -> By time interval: For example (your dose/drug may be different): Instead of taking 10mg of Oxycodone every 4 hours, start allowing more time between doses. Try to hold off taking anot her dose for 5 or 6 hours depending on how bad your pain is. Then gradually increase to 7 ho urs, 8 hours, etc. Follow Up: Future Appointments Provider Department Dept Phone Center 07/27/2017 3:40 PM Ailyn Wolff [facility] at [facility] 6th Floor [phone] [facility] Schedule the following appointment(s) when you get home Dr. Thacker On 07/13/2017. Why: Staple removal Discharge Physical Exam: Last 24 hour min/max Temp: 36.7 C (98.1 F) Temp Min: 36.5 C (97.7 F) Max: 36.9 C (98.4 F) Pulse: 82 Pulse Min: 78 Max: 88 Resp: 16 Resp Min: 16 Max: 20 BP: 114/55 BP Min: 94/48 Max: 118/63 SpO2: 97 % SpO2 Min: 91 % Max: 100 % Body mass index is 29.21 kg/m. Exam: General: comfortable, NAD HEENT: NCAT Respiratory: unlabored breathing on RA Cardio: Regular rate Abdomen: soft, appropriately tender, mild-moderate distension, Incision with myrna, small amount of drainage, ostomy pink, appliance with stool. Anthony removed prior to discharge, two myrna incision c/d/i no erythema Extremities: WWP, no edema Mental status: awake and alert Drain: clear serous fluid (pelvic drain, removed prior to discharge) Natalie Poon MD Surgery, PGY1 [facility] Associated attestation - Ailyn Wolff MD - 08/14/2017 9:06 PM PSTI have seen and examined th e patient. I have repeated the critical portions of the history and exam. I discussed the case with the resident, agree with the history and findings, and formulated the plan as doc umented in the resident s note/discharge summary. documented in this encounter Discharge Instructions Instructions Zeny Dunn RN - 07/05/2017Nursing Discharge Note Discharge Date: 07/05/2017 Additional Discharge Information: Bowel Resection: Open: Post Op Post Op Infection Ureteral Stent Placement: Post Op Discharge Nurse: Zeny Dunn RN AttachmentsThe following attachments cannot be sent through Care Everywhere.Bowel Resection : Open: Post-op (Nauruan)Post-op Infection (Nauruan)Ureteral Stent Placement: Post-op (Sathya yoo)documented in this encounter Medications at Time of Discharge + + + +---------+ + + | Medication | Sig | Dispensed | Refills | Start | End Date | | | | | | Date | | + + + +---------+ + + | acetaminophen 500 | Take 2 tablets by | | 0 | 07/05/20 | | | mg oral | mouth every six | | | 17 | | | tabletIndications: | hours. Indications: | | | | | | pain | Pain | | | | | + + + +---------+ + + | clobetasol 0.05 % | Apply to affected | | 0 | | | | topical ointment | area | | | | | + + + +---------+ + + | MULTIVITAMIN ORAL | Take 1 tablet by | | 0 | | | | | mouth once daily. | | | | | + + + +---------+ + + | Ostomy Supplies | Colostomy | 1 each | 11 | 11/ | | | misc | [id number]: CO | | | 18 | | | | [id number], Skin prep: | | | | | | | 3M 3344 (30/mo), Adh | | | | | | | Rem HO 7760 | | | | | | | (1box/mo), Rings: HO | | | | | | | 8805 (10/mo), | | | | | | | [place]odorant[place] [address] | | | | | | | (60/mo), Pwdr: CT | | | | | | | [id number] (1oz/mo), | | | | | | | Belt: Lrg (2/mo) | | | | | | | and Irrigation CO | | | | | | | [id number], Sleeve CO | | | | | | | [id number] | | | | | + + + +---------+ + + | potassium chloride | Take 20 mEq by mouth | | 0 | | | | 20 mEq oral packet | once daily. | | | | | + + + +---------+ + + documented as of this encounter Progress Notes Tim Davila MD - 07/05/2017 5:47 AM PSTFormatting of this note might be different from jean e original. Green Surgery Progress Note Hospital Day: 5 Attending Physician: Ailyn Wolff MD Patient: JENN BYRNES [id number] 24H events/Subjective: Epidural removed yesterday, pain controlled. Eating "slowly" and a bit nauseated. Colostomy functioning well. Ambulating. No events overnight, urinated after Castillo removal. Objective: Last 24 hour min/max Temp: 36.5 C (97.7 F) Temp Min: 36.5 C (97.7 F) Max: 37 C (98.6 F) Pulse: 78 Pulse Min: 78 Max: 88 Resp: 16 Resp Min: 16 Max: 20 BP: 94/48 BP Min: 94/48 Max: 125/66 SpO2: 91 % SpO2 Min: 91 % Max: 100 % Body mass index is 29.21 kg/m. Intake/Output Summary (Last 24 hours) at 07/05/17 0547 Last data filed at 07/05/17 0439 Gross per 24 hour Intake 2651.67 ml Output 2395 ml Net 256.67 ml Exam: General: comfortable, NAD HEENT: NCAT Respiratory: unlabored breathing on RA Cardio: Regular rate Abdomen: soft, appropriately tender, mild-moderate distension, Incision with myrna, small amount of drainage, ostomy pink, appliance with stool. Anthony in place at tractotomy site. Extremities: WWP, no edema Mental status: awake and alert : Castillo in place and draining clear yellow urine this AM Drain: mostly serous fluid (pelvic drain) Data: no new Pathology 06/30/17: pending Assessment and Plan: Jenn Byrnes is a 56 y.o. Female with MRI T4 N0 M0 rectal mass, now s/p intersphinct narcisa APR on 06/30/17. #s/p APR - PT - Pain: oxy, HM, deyanira tylenol - Encourage IS - stop Entereg - SSI - electrolytes replete PRN - Per urology's recs: CINTIA in 3-4 weeks check for hydronephrosis, or if develops Cr elevatio n - Castillo: removed, no retention - remove anthony before discharge #anxiety/depression Continue home wellbutrin Diet: reg FEN: Off IVF Pain: epidural, tylenol Prophy: enoxaparin Dispo: discharge later today vs. tomorrow The attending of record for this patient is Ailyn Wolff MD. Tim Davila MD General Surgery, PGY-1 Pager: [phone] Associated attestation - Ailyn Wolff MD - 07/05/2017 11:13 AM PSTI have seen and examined th e patient. I have repeated the critical portions of the history and exam. I discussed the case with the resident, agree with the history and findings, and formulated the plan as doc umented in the resident s note. Andree English NP - 07/04/2017 8:55 AM PSTFormatting of this note might be different fr om the original. INPATIENT ADULT PAIN SERVICE NEURAXIAL BLOCK PROGRESS NOTE 07/04/2017 Author: Andree English [employer] Epidural day # 4 POD# 4. Status post: 1. Intersphincteric APR 2. En bloc resection of rectum, sigmoid, left ovary, left fallopian tube, and abscess cavit y 3. Enterectomy with primary anastomosis 4. Tractotomy 5. 3.5 hour lysis of adhesions Past Medical History Diagnosis Date HTN (hypertension) Elevated lipids Nephrolithiasis Lichen sclerosus Heartburn Interval events since last APS visit: epidural fell out this morning. Ms. Byrnes denies pain. Her pain score at rest is 2/10. With activity, her pain score is 5/10. Specific activitie s that exacerbate Ms. Byrnes's pain include most activities. Ms. Byrnes is satisfied with curr ent level of pain. History of chronic or preoperative pain: yes: location: midline abdominal. Typical intens ity 3-4+/10 Prior to hospitalization: Hydrocodone as hydrocodone/acetaminophen 5/325: 6/day per chart . ROS/Side Effects: General: negative. Nausea/Vomiting: None Pruritus: none Numbness/Weakness: None Low BP: None Dizziness: None Sedation: none Activity level: to chair Diet: regular diet. Medications: Current Facility-Administered Medications Medication Dose Route Frequency Last Rate acetaminophen (TYLENOL) tablet 1,000 mg 1,000 mg oral Q6H alvimopan (ENTEREG) capsule 12 mg 12 mg oral BID buPROPion SR (WELLBUTRIN-SR, ZYBAN) tablet 150 mg 150 mg oral QAM enoxaparin (LOVENOX) injection 40 mg 40 mg subcutaneous QPM insulin lispro (HUMALOG) injection subcutaneous 5 TIMES DAILY Current Facility-Administered Medications Medication Dose Route Frequency Last Rate dextrose 50 % in water IV 25 mL 25 mL intravenous PRN glucagon (GLUCAGEN) injection 1 mg 1 mg intramuscular PRN glucose chewable tablet 16 g 16 g oral PRN HYDROmorphone (DILAUDID) injection 0.2-0.5 mg 0.2-0.5 mg intravenous Q2H PRN influenza vaccine (FLUZONE) (PF) IM injection (age 3 years or greater) 0.5 mL 0.5 mL i ntramuscular Day of Discharge oxyCODONE (immediate release) (ROXICODONE) tablet 5-15 mg 5-15 mg oral Q4H PRN Current Facility-Administered Medications Medication Dose Route Frequency Last Rate lactated Ringers IV 50 mL/hr intravenous CONTINUOUS 50 mL/hr (07/04/17 0412) Type: Epidural Rate: stopped at 830 am Anticoagulants: Enoxaparin 40 mg subcutaneous daily, last dose 2124 last night Lab Results Component Value Date INRPT 0.95 06/13/2017 PLT 318 07/01/2017 Opioids: oxycodone 5 Mg/24 hours Other analgesics: Acetaminophen PO 3000 Mg/24 hours Other psychoactive medications: buproprion 150 Mg/24 hours Physical Exam: Last Vitals:BP 125/66 | Pulse 81 | Temp 37 C (98.6 F) | RR 18 | Ht 1.6 m (5' 3") | Wt 7 4.8 kg (164 lb 14.5 oz) | SpO2 97% | BMI 29.21 kg/(m^2) 24 hour Vitals min/max : Systolic (24hrs), Av , Min:107 , Max:127 Diastolic (24hrs), Av, Min:62, Max:72 Pulse Min: 87 Max: 109 Temp Min: 36 C (96.8 F) Max: 37.7 C (99.9 F) Resp Min: 10 Max: 16 SpO2 Min: 93 % Max: 100 % General Appearance and Neurological Examination: Mental Status: Alert Orientation: Oriented Sensory Level: deferred Motor: bilateral lower extremity(ies) -- No block: full flexion and extension of hip, knee and foot Neuraxial Catheter: Location: L1-L2; depth at skin : inadvertantly pulled out Clinically significant migration since placement? No Dressing: Intact Exit Site: Clean and Non-tender Insertion site exposed? No Assessment: Ms. Byrnes rates her pain relief as good. My personal assessment is concordant with this evaluation Castillo status: Epidural: at lumbar level; maintain Castillo while epidural is being used Diagnosis: 1. Acute postoperative incisional pain 2. Rectal cancer 3. Status post chemoradiation My treatment plan is: Transitioned to oral medications this morning given inadvertent pulling and removal of epid ural catheter Doing well with abrupt transition. Walking with PT. Neuro check today every 2 hours until 1800 APS will sign off, please call us back if there are any pain related concerns for us to add ress. Andree English NP Adult Pain Service Pager [phone] Team Pager [phone] Tim See MD - 5:31 AM PST Green Surgery Progress Note Hospital Day: 4 Attending Physician: Ailyn Wolff MD Patient: JENN BYRNES [id number] 24H events/Subjective: Epidural still functioning, removed later this AM Castillo removed this AM after epidural Ostomy with output Objective: Last 24 hour min/max Temp: 37 C (98.6 F) Temp Min: 36.6 C (97.9 F) Max: 37.1 C (98.8 F) Pulse: 83 Pulse Min: 82 Max: 88 Resp: 16 Resp Min: 14 Max: 16 BP: 127/72 BP Min: 107/63 Max: 127/72 SpO2: 98 % SpO2 Min: 90 % Max: 98 % Body mass index is 29.21 kg/m. Intake/Output Summary (Last 24 hours) at 07/04/17 0630 Last data filed at 07/04/17 0600 Gross per 24 hour Intake 2441.8 ml Output 4270 ml Net -1828.2 ml Exam: General: comfortable, NAD HEENT: NCAT Respiratory: unlabored breathing on RA Cardio: Regular rate Abdomen: soft, appropriately tender, mild-moderate distension, Incision dressing c/d/i, ost marie pink, appliance with liquid stool Extremities: WWP, no edema Mental status: awake and alert : Castillo in place and draining clear yellow urine this AM Drain: SS fluid (pelvic drain) Data: no new Pathology 06/30/17: pending Assessment and Plan: Jenn Byrnes is a 56 y.o. Female with MRI T4 N0 M0 rectal mass, now s/p intersphinct narcisa APR on 06/30/17. #s/p APR - PT consult - Pain: oxy, HM, deyanira tylenol - Encourage IS - Entereg - SSI - electrolytes replete PRN - Per urology's recs: CITNIA in 3-4 weeks check for hydronephrosis, or if develops Cr elevatio n - Castillo: Removed today, monitor for retention - anthony removal TBD #anxiety/depression Continue home wellbutrin Diet: reg FEN: LR @50/hr Pain: epidural, tylenol Prophy: enoxaparin Dispo: continue acute care The attending of record for this patient is Ailyn Wolff MD. Tim Davila MD General Surgery, PGY-1 Pager: [phone] Associated attestation - Ailyn Wolff MD - 07/05/2017 11:12 AM PSTI have seen and examined e patient with the resident. I have repeated the critical portions of the history and exam. I discussed the case with the resident, agree with the history and findings, and formulat ed the plan as documented in the resident s note. Alta Woods MD - 07/03/2017 7:40 AM PSTFormatting of this note might be different from e original. INPATIENT ADULT PAIN SERVICE NEURAXIAL BLOCK PROGRESS NOTE 07/03/2017 Author: ALTA WOODS MD Epidural day # 3 POD# 3. Status post: 1. Intersphincteric APR 2. En bloc resection of rectum, sigmoid, left ovary, left fallopian tube, and abscess cavit y 3. Enterectomy with primary anastomosis 4. Tractotomy 5. 3.5 hour lysis of adhesions Past Medical History Diagnosis Date HTN (hypertension) Elevated lipids Nephrolithiasis Lichen sclerosus Heartburn Interval events since last APS visit: pain controlled. Vomited yesterday. But ostomy sta rted to have output today and no nausea. Ms. Byrnes denies pain. Her pain score at rest is 0/10. With activity, her pain score is 0/10. Specific activitie s that exacerbate Ms. Byrnes's pain include cannot name aggravators. Ms. Byrnes is satisfied wi th current level of pain. History of chronic or preoperative pain: yes: location: midline abdominal. Typical intens ity 3-4+/10 Prior to hospitalization: Hydrocodone as hydrocodone/acetaminophen 5/325: 6/day per chart . ROS/Side Effects: General: negative. Nausea/Vomiting: Moderate (resolved) Pruritus: mild Numbness/Weakness: None Low BP: None Dizziness: None Sedation: none Activity level: to chair Diet: clears Medications: Current Facility-Administered Medications Medication Dose Route Frequency Last Rate acetaminophen (TYLENOL) tablet 1,000 mg 1,000 mg oral Q6H alvimopan (ENTEREG) capsule 12 mg 12 mg oral BID buPROPion SR (WELLBUTRIN-SR, ZYBAN) tablet 150 mg 150 mg oral QAM enoxaparin (LOVENOX) injection 40 mg 40 mg subcutaneous QPM insulin lispro (HUMALOG) injection subcutaneous 5 TIMES DAILY Current Facility-Administered Medications Medication Dose Route Frequency Last Rate dextrose 50 % in water IV 25 mL 25 mL intravenous PRN glucagon (GLUCAGEN) injection 1 mg 1 mg intramuscular PRN glucose chewable tablet 16 g 16 g oral PRN influenza vaccine (FLUZONE) (PF) IM injection (age 3 years or greater) 0.5 mL 0.5 mL i ntramuscular Day of Discharge nalbuphine (NUBAIN) injection 2.5 mg 2.5 mg intravenous Q15MIN PRN naloxone (NARCAN) injection intravenous PRN ondansetron (ZOFRAN) injection 4 mg 4 mg intravenous Q12H PRN Current Facility-Administered Medications Medication Dose Route Frequency Last Rate lactated Ringers IV 50 mL/hr intravenous CONTINUOUS 50 mL/hr (07/03/17 4425) ropivacaine 0.1 %-HYDROmorphone 10 mcg/mL epidural infusion epidural CONTINUOUS 6 mL/ hr at 07/02/17 2330 Type: Epidural Rate: 6 mL/hour Anticoagulants: Enoxaparin 40 mg subcutaneous daily, last dose 2104 last night Lab Results Component Value Date INRPT 0.95 06/13/2017 PLT 318 07/01/2017 Opioids: None Other analgesics: Acetaminophen PO 1000 every 6 hours Other psychoactive medications: buproprion, Physical Exam: Last Vitals:BP 113/69 | Pulse 86 | Temp 37 C (98.6 F) | RR 14 | Ht 1.6 m (5' 3") | Wt 7 4.8 kg (164 lb 14.5 oz) | SpO2 97% | BMI 29.21 kg/(m^2) 24 hour Vitals min/max : Systolic (24hrs), Av , Min:101 , Max:129 Diastolic (24hrs), Av, Min:42, Max:109 Pulse Min: 87 Max: 109 Temp Min: 36 C (96.8 F) Max: 37.7 C (99.9 F) Resp Min: 10 Max: 16 SpO2 Min: 93 % Max: 100 % General Appearance and Neurological Examination: Mental Status: Alert Orientation: Oriented Sensory Level: deferred Motor: bilateral lower extremity(ies) -- No block: full flexion and extension of hip, knee and foot Neuraxial Catheter: Location: L1-L2; depth at skin ~12 cm Clinically significant migration since placement? No Dressing: Intact Exit Site: Clean and Non-tender Insertion site exposed? No Assessment: Ms. Jenn Byrnes is a 56-year-old female, with MRI-proven T4 N0 M0 rectal mass, status post 6 cycles of neoadjuvant FOLFOX, s/p neoadjuvant chemoradiation, is indicated for exploratory l aparotomy, extensive lysis of adhesions, excision of left lower quadrant fistula tract, cyst oscopy and bilateral ureteral stent placement and primary repair of posterior vaginal defect . Ms. Byrnes rates her pain relief as good. My personal assessment is concordant with this evaluation Castillo status: Epidural: at lumbar level; maintain Castillo while epidural is being used Diagnosis: 1. Acute postoperative incisional pain 2. Rectal cancer 3. Status post chemoradiation My treatment plan is: *Continue neuraxial infusion, titrate infusion as needed. *anticipate transition when tolerating full diet Alta Woods MD Team Pager [phone] signed by Alta Woods MD at 07/03/2017 7:43 AM Miller Sawant MD - 07/03/2017 6:24 AM PSTInpatient Progress Note POD# 3 - intersphincteric APR, extensive ALBERTO, SBR, drainage of pelvic abscess S- emesis yesterday after eating. Feels better now. Ostomy has started to function. ambul ating. O- Afeb OVSS, U/O 1850/24h Drain 325, ostomy 325 NAD Chest clear Heart reg Abd soft, incision clean, drain ss Labs - no new A/P POD# 3 - intersphincteric APR, extensive ALBERTO, SBR, drainage of pelvic abscess. Satis factory progress. Pain conrol - epidural, transition to po when able Diet - as tolerated Activity - ambulate Meds - cont current, Labs - no new Proph - lovenox Disp - keep drain, Castillo until hematuria clears per urology, anticipate tomorrow. Target d/c Tues. Alta Ramos MD - 07/02/2017 10:56 AM PST INPATIENT ADULT PAIN SERVICE NEURAXIAL BLOCK PROGRESS NOTE 07/02/2017 Author: ALTA WOODS MD Epidural day # 2 POD# 2. Status post: 1. Intersphincteric APR 2. En bloc resection of rectum, sigmoid, left ovary, left fallopian tube, and abscess cavit y 3. Enterectomy with primary anastomosis 4. Tractotomy 5. 3.5 hour lysis of adhesions Past Medical History Diagnosis Date HTN (hypertension) Elevated lipids Nephrolithiasis Lichen sclerosus Heartburn Interval events since last APS visit: Epidural filter was discovered to be broken and repl aced POD #1. Now pain much better controlled. Ms. Byrnes complains of left quadrant of the abdomen, flank and pelvis pain. Her pain score at rest is 0/10. With activity, her pain score is 0/10. Specific activitie s that exacerbate Ms. Byrnes's pain include most activities. Ms. Byrnes is satisfied with curre nt level of pain. History of chronic or preoperative pain: yes: location: midline abdominal. Typical intens ity 3-4+/10 Prior to hospitalization: Hydrocodone as hydrocodone/acetaminophen 5/325: 6/day per chart . ROS/Side Effects: General: negative. Nausea/Vomiting: none Pruritus: mild Numbness/Weakness: None Low BP: None Dizziness: None Sedation: none Activity level: to chair Diet: clears Medications: Current Facility-Administered Medications Medication Dose Route Frequency Last Rate acetaminophen (TYLENOL) tablet 1,000 mg 1,000 mg oral Q6H alvimopan (ENTEREG) capsule 12 mg 12 mg oral BID buPROPion SR (WELLBUTRIN-SR, ZYBAN) tablet 150 mg 150 mg oral QAM enoxaparin (LOVENOX) injection 40 mg 40 mg subcutaneous QPM insulin lispro (HUMALOG) injection subcutaneous 5 TIMES DAILY Current Facility-Administered Medications Medication Dose Route Frequency Last Rate dextrose 50 % in water IV 25 mL 25 mL intravenous PRN glucagon (GLUCAGEN) injection 1 mg 1 mg intramuscular PRN glucose chewable tablet 16 g 16 g oral PRN influenza vaccine (FLUZONE) (PF) IM injection (age 3 years or greater) 0.5 mL 0.5 mL i ntramuscular Day of Discharge nalbuphine (NUBAIN) injection 2.5 mg 2.5 mg intravenous Q15MIN PRN naloxone (NARCAN) injection intravenous PRN ondansetron (ZOFRAN) injection 4 mg 4 mg intravenous Q12H PRN Current Facility-Administered Medications Medication Dose Route Frequency Last Rate lactated Ringers IV 50 mL/hr intravenous CONTINUOUS 50 mL/hr (07/02/17 0420) ropivacaine 0.1 %-HYDROmorphone 10 mcg/mL epidural infusion epidural CONTINUOUS 6 mL/ hr at 07/02/17 0424 Type: Epidural Rate: 6 mL/hour Anticoagulants: Enoxaparin 40 mg subcutaneous daily, last dose 2104 last night Lab Results Component Value Date INRPT 0.95 06/13/2017 PLT 318 07/01/2017 Opioids: None Other analgesics: Acetaminophen PO 1000 every 6 hours Other psychoactive medications: buproprion, Physical Exam: Last Vitals:BP 102/64 | Pulse 85 | Temp 37 C (98.6 F) | RR 16 | Ht 1.6 m (5' 3") | Wt 7 4.8 kg (164 lb 14.5 oz) | SpO2 97% | BMI 29.21 kg/(m^2) 24 hour Vitals min/max : Systolic (24hrs), Av , Min:98 , Max:116 Diastolic (24hrs), Av, Min:52, Max:76 Pulse Min: 87 Max: 109 Temp Min: 36 C (96.8 F) Max: 37.7 C (99.9 F) Resp Min: 10 Max: 16 SpO2 Min: 93 % Max: 100 % General Appearance and Neurological Examination: Mental Status: Alert Orientation: Oriented Sensory Level: deferred Motor: bilateral lower extremity(ies) -- No block: full flexion and extension of hip, knee and foot Neuraxial Catheter: Location: L1-L2; depth at skin ~12 cm Clinically significant migration since placement? No Dressing: Intact Exit Site: Clean and Non-tender Insertion site exposed? No Assessment: Ms. Jenn Byrnes is a 56-year-old female, with MRI-proven T4 N0 M0 rectal mass, status post 6 cycles of neoadjuvant FOLFOX, s/p neoadjuvant chemoradiation, is indicated for exploratory l aparotomy, extensive lysis of adhesions, excision of left lower quadrant fistula tract, cyst oscopy and bilateral ureteral stent placement and primary repair of posterior vaginal defect . Ms. Byrnes rates her pain relief as good. My personal assessment is concordant with this evaluation Castillo status: Epidural: at lumbar level; maintain Castillo while epidural is being used Diagnosis: 1. Acute postoperative incisional pain 2. Rectal cancer 3. Status post chemoradiation My treatment plan is: *Continue neuraxial infusion, titrate infusion as needed. *APS will continue to follow this patient. Alta Woods MD Team Pager [phone] signed by Alta Woods MD at 07/02/2017 11:05 AM Miller Sawant MD - 07/02/2017 8:42 AM PSTInpatient Progress Note POD# 2 - intersphincteric APR, extensive ALBERTO, SBR, drainage of pelvic abscess S- doing well. Pain controlled. Some bloating, upper abd pain. No ostomy output. Ambulati ng. O- Afeb OVSS, U/O 1700/24h Drain 395 NAD Chest clear Heart reg Abd soft, incision clean, drain ss Labs - no new A/P POD# 2 - intersphincteric APR, extensive ALBERTO, SBR, drainage of pelvic abscess. Satis factory progress. Pain conrol - epidural, transition to po when able Diet - as tolerated Activity - ambulate Meds - cont current, Labs - no new Proph - lovenox Disp - keep drain, Castillo until hematuria clears per urology. Target d/c Tue/ Desirae, Juana Eller NP - 07/01/2017 10:27 AM PST INPATIENT ADULT PAIN SERVICE NEURAXIAL BLOCK PROGRESS NOTE 07/01/2017 Author: Juana Carter NP Epidural day # 1 POD# 1. Status post: 1. Intersphincteric APR 2. En bloc resection of rectum, sigmoid, left ovary, left fallopian tube, and abscess cavit y 3. Enterectomy with primary anastomosis 4. Tractotomy 5. 3.5 hour lysis of adhesions Past Medical History Diagnosis Date HTN (hypertension) Elevated lipids Nephrolithiasis Lichen sclerosus Heartburn Interval events since last APS visit: Not seen yesterday Ms. Byrnes complains of left quadrant of the abdomen, flank and pelvis pain. Her pain score at rest is 1/10. With activity, her pain score is 4/10. Specific activitie s that exacerbate Ms. Obandos pain include most activities. Ms. Byrnes is partially satisfied with current level of pain. History of chronic or preoperative pain: yes: location: midline abdominal. Typical intens ity 310 Prior to hospitalization: Hydrocodone as hydrocodone/acetaminophen 5/325: 6/day ROS/Side Effects: General: negative. Nausea/Vomiting: Mild Pruritus: None Numbness/Weakness: None Low BP: None Dizziness: None Sedation: None Activity level: In bed all the time Diet: NPO/sips/ice chips Medications: Current Facility-Administered Medications Medication Dose Route Frequency Last Rate acetaminophen (TYLENOL) tablet 1,000 mg 1,000 mg oral Q6H alvimopan (ENTEREG) capsule 12 mg 12 mg oral BID buPROPion SR (WELLBUTRIN-SR, ZYBAN) tablet 150 mg 150 mg oral QAM enoxaparin (LOVENOX) injection 40 mg 40 mg subcutaneous QPM insulin lispro (HUMALOG) injection subcutaneous 5 TIMES DAILY Current Facility-Administered Medications Medication Dose Route Frequency Last Rate dextrose 50 % in water IV 25 mL 25 mL intravenous PRN glucagon (GLUCAGEN) injection 1 mg 1 mg intramuscular PRN glucose chewable tablet 16 g 16 g oral PRN influenza vaccine (FLUZONE) (PF) IM injection (age 3 years or greater) 0.5 mL 0.5 mL i ntramuscular Day of Discharge nalbuphine (NUBAIN) injection 2.5 mg 2.5 mg intravenous Q15MIN PRN naloxone (NARCAN) injection intravenous PRN ondansetron (ZOFRAN) injection 4 mg 4 mg intravenous Q12H PRN Current Facility-Administered Medications Medication Dose Route Frequency Last Rate lactated Ringers IV 100 mL/hr intravenous CONTINUOUS 100 mL/hr (07/01/17 0904) ropivacaine 0.1 %-HYDROmorphone 10 mcg/mL epidural infusion epidural CONTINUOUS 5 mL/ hr at 07/01/17 0808 Type: Epidural Rate: 5 mL/hour Anticoagulants: Enoxaparin 40 mg subcutaneous daily, not yet given, scheduled to begin toda y Lab Results Component Value Date INRPT 0.95 06/13/2017 PLT 318 07/01/2017 Opioids: None Other analgesics: Acetaminophen PO 2,000 mg/day Other psychoactive medications: None Physical Exam: Last Vitals:BP 101/65 | Pulse 112 | Temp 36.4 C (97.6 F) | RR 16 | Ht 1.6 m (5' 3") | W t 74.8 kg (164 lb 14.5 oz) | SpO2 99% | BMI 29.21 kg/(m^2) 24 hour Vitals min/max : Systolic (24hrs), Av , Min:79 , Max:109 Diastolic (24hrs), Av, Min:54, Max:74 Pulse Min: 87 Max: 109 Temp Min: 36 C (96.8 F) Max: 37.7 C (99.9 F) Resp Min: 10 Max: 16 SpO2 Min: 93 % Max: 100 % General Appearance and Neurological Examination: Mental Status: Alert Orientation: Oriented Sensory Level: deferred Motor: bilateral lower extremity(ies) -- No block: full flexion and extension of hip, knee and foot Neuraxial Catheter: Location: L1-L2; depth at skin ~12 cm Clinically significant migration since placement? No Dressing: Intact Exit Site: Clean and Non-tender Insertion site exposed? No Assessment: Ms. Jenn Byrnes is a 56-year-old female, with MRI-proven T4 N0 M0 rectal mass, status post 6 cycles of neoadjuvant FOLFOX, s/p neoadjuvant chemoradiation, is indicated for exploratory l aparotomy, extensive lysis of adhesions, excision of left lower quadrant fistula tract, cyst oscopy and bilateral ureteral stent placement and primary repair of posterior vaginal defect . Ms. Byrnes rates her pain relief as good. My personal assessment is concordant with this evaluation Castillo status: Epidural: at lumbar level; maintain Castillo while epidural is being used Diagnosis: 1. Acute postoperative incisional pain 2. Rectal cancer 3. Status post chemoradiation My treatment plan is: *Continue neuraxial infusion, titrate infusion as needed. *APS will continue to follow this patient. I attempted to discuss our findings and recommendations with primary care team provider Valeria Schultz MD. Did not reach [place] [phone] with questions. Dorene Carter (Mr.) MSN, ACNP- Nurse Practitioner [facility] [address] [place] [address] Vicki Erwin M D - 07/01/2017 6:04 AM PSTAPS brief note: Evaluated epidural at bedside. Catheter intact h/e filter broken resulting in leak. Replace d filtered and resumed epidural infusion. [place] Emanuel [place] A[place] [phone] signed by Vicki Emanuel MD at 07/10/2017 3:36 PM PSTHasl Natalie mckeon MD - 07/01/2017 5:36 AM PST [facility] Progress Note Hospital Day: 1 Attending Physician: Ailyn Wolff MD Patient: JENN BYRNES [id number] 24H events/Subjective: Pt comfortable in bed this morning. Pain well controlled on epidural. Tolerating water, no emesis. No acute events overnight. Using IS. Objective: Last Vitals: BP 108/70 | Pulse 105 | Temp 37.7 C (99.9 F) | RR 14 | Ht 1.6 m (5' 3") | Wt 74.8 kg (164 lb 14.5 oz) | SpO2 99% | BMI 29.21 kg/(m^2) 24 Hour Vital Min/Max: Systolic (24hrs), Av , Min:79 , Max:109 Diastolic (24hrs), Av, Min:54, Max:74 Pulse Min: 87 Max: 105 Temp Min: 36 C (96.8 F) Max: 37.7 C (99.9 F) Resp Min: 10 Max: 16 SpO2 Min: 93 % Max: 100 % Date 06/30/17699 - 07/01/17 0659 07/01/17699 - 07/02/17 0659 Shift 8991-1156 1591-3577 6342-9773 24 Hour Total 1082-2060 9137-6666 0735-7372 24 Hour Tot al I N T A K E P.O. 320 320 I.V. 3000 3363.3 900 7263.3 Shift Total 3000 3363.3 1220 7583.3 O U T P U T Urine (mL/kg/hr) 200 (0.3) 175 (0.3) 400 775 Drains (mL/kg/hr) 40 (0.1) 5 45 Other 750 10 0 760 Shift Total (mL/kg) 950 (12.7) 225 (3) 405 (5.4) 1580 (21.1) Weight (kg) 74.8 74.8 74.8 74.8 74.8 74.8 74.8 74.8 Exam: General: comfortable, NAD HEENT: NCAT Respiratory: unlabored breathing on RA Cardio: Regular rate Abdomen: soft, appropriately tender, Incision dressing c/d/i, ostomy pink, appliance with b owel sweat. Extremities: WWP, no edema Mental status: awake and alert : Castillo in place and draining koolaid colored urine Drain: SS fluid (pelvic drain) Data: Recent Labs 06/30/17 1224 07/01/17 0408 07/01/17 0758 07/01/17 0901 07/01/17 1007 NA 139 -- 141 -- -- -- -- K 3.8 -- 4.1 -- -- -- -- CL 108 -- 108 -- -- -- -- BICARB -- -- 26 -- -- -- -- BUN -- -- 26* -- -- -- -- CR -- -- 0.86 -- -- -- -- GLU -- < > 101* < > 99 109* 119* CA -- -- 7.7* -- -- -- -- PO4 -- -- 4.9* -- -- -- -- < > = values in this interval not displayed. Recent Labs 06/30/17 1224 07/01/17 0408 WBC -- 8.64 HB -- 8.2* HCT 29.2* 26.1* PLT -- 318 Pathology 06/30/17: pending Assessment and Plan: Jenn Byrnes is a 56 y.o. Female with MRI T4 N0 M0 rectal mass, now s/p intersphinct narcisa APR on 06/30/17. #s/p APR - PT consult - Pain: epidural, tylenol - Encourage IS - Entereg - transition off insulin drip to sliding scale (perioperative hyperglycemia) - electrolytes replete PRN - Per urology's recs: CINTIA in 3-4 weeks check for hydronephrosis, or if develops Cr elevatio n - Castillo: Remove when urine clear ~POD2 - anthony to remove tomorrow 07/02 #anxiety/depression Continue home wellbutrin Diet: clear liquids FEN: LR @100 Pain: epidural, tylenol Prophy: enoxaparin POD#1 PM Dispo: continue acute care The attending of record for this patient is Ailyn Wolff MD. Natalie Poon MD PGY-1 Department of General Surgery [id number] Ivette Shannon MD - 06/30/2017 11:02 PM PST The Department of Otolaryngology Postoperative Check Author: Ivette Jade MD Attending Physician: iAlyn Wolff MD 06/30/2017, 11:02 PM ID/CC: Jenn Byrnes is a 56 y.o. year old female admitted for rectal cancer who was taken t o the OR today and underwent the following procedures: 1. Intersphincteric APR 2. En bloc resection of rectum, sigmoid, left ovary, left fallopian tube, and abscess cavit y 3. Enterectomy with primary anastomosis 4. Tractotomy 5. 3.5 hour lysis of adhesions SUBJECTIVE: Patient reports feeling "good, just a little sore and tired". Pain and nausea are well controlled on an epidural Patient is tolerating a clear liquid diet, taking in sips and ice Not yet ambulating Mildly tachycardic, other vitals within normal limits Breathing comfortably on 2L NC Castillo in place; hematuria, as previously seen intra-op PHYSICAL EXAM: Vitals: BP 108/62 | Pulse 103 | Temp 36.9 C (98.4 F) | RR 14 | Ht 1.6 m (5' 3") | Wt 74 .8 kg (164 lb 14.5 oz) | SpO2 98% | BMI 29.21 kg/(m^2) General: Alert and oriented, sitting up and conversational, no acute distress. HEENT: Sclerae anicteric, EOMI Respiratory: Unlabored, clear to auscultation throughout CV: RRR, no murmurs/rubs/gallops; no JVD Abdomen: soft, nondistended, appropriately tender; Dressings in place are c/d/i Drain: R abdomen malissa, holding suction with ss output, ostomy pink and well perfused, LL p enrose Extremities: Warm and well perfused, no peripheral edema ASSESSMENT AND PLAN: This is Jenn Byrnes, a 56 y.o. F, with a h/o rectal cancer who is now POD #0 s/p AP R, en bloc resection of rectum, sigmoid, left ovary, left fallopian tube, and abscess cavity , enterectomy with primary anastomosis. She is doing well post operatively and her pain is u nder control. She did not have any concerns or requests. Her castillo output shows hematuria, w hich was previously observed by the surgical team (which included urology) in the OR. No acu te interventions at this time -- Continue routine post op care -- Epidural for pain control -- Monitor UOP -- Pain and nausea control PRN Ivette Jade MD Otolaryngology-Head & Neck Surgery PGY-1 [id number] documented in this encount er Plan of Treatment +--------+---------+ + + + | Date | Type | Specialty | Care Team | Description | +--------+---------+ + + + | 06/18/ | Office | Surgery | Ailyn Wolff MD | | | 2019 | Visit | | [address] | | | | | | [place], | | | | | | [place] [id number] | | | | | | [phone] | | | | | | | | +--------+---------+ + + + + + +--------+ + + | Name | Type | Priori | Associated Diagnoses | Date/Time | | | | ty | | | + + +--------+ + + | PROCEDURE NOTE | Procedure | Routin | | 06/30/2017 8:43 AM | | | Note Order | e | | PST | + + +--------+ + + documented as of this encounter Procedures + +--------+ + + + | Procedure Name | Priori | Date/Time | Associated Diagnosis | Comments | | | ty | | | | + +--------+ + + + | CAPILLARY BLOOD | Routin | 07/05/2017 | Rectal cancer | Results for this | | GLUCOSE (NO CHG), | e | 7:53 AM | (HCC) | procedure are in the | | POC | | PST | | results section. | + +--------+ + + + | CAPILLARY BLOOD | Routin | 07/04/2017 | Rectal cancer | Results for this | | GLUCOSE (NO CHG), | e | 10:14 PM | (HCC) | procedure are in the | | POC | | PST | | results section. | + +--------+ + + + | CAPILLARY BLOOD | Routin | 07/04/2017 | Rectal cancer | Results for this | | GLUCOSE (NO CHG), | e | 6:01 PM | (HCC) | procedure are in the | | POC | | PST | | results section. | + +--------+ + + + | CAPILLARY BLOOD | Routin | 07/04/2017 | Rectal cancer | Results for this | | GLUCOSE (NO CHG), | e | 1:18 PM | (HCC) | procedure are in the | | POC | | PST | | results section. | + +--------+ + + + | CAPILLARY BLOOD | Routin | 07/04/2017 | Rectal cancer | Results for this | | GLUCOSE (NO CHG), | e | 8:06 AM | (HCC) | procedure are in the | | POC | | PST | | results section. | + +--------+ + + + | CAPILLARY BLOOD | Routin | 07/03/2017 | Rectal cancer | Results for this | | GLUCOSE (NO CHG), | e | 10:30 PM | (HCC) | procedure are in the | | POC | | PST | | results section. | + +--------+ + + + | CAPILLARY BLOOD | Routin | 07/03/2017 | Rectal cancer | Results for this | | GLUCOSE (NO CHG), | e | 7:44 PM | (HCC) | procedure are in the | | POC | | PST | | results section. | + +--------+ + + + | CAPILLARY BLOOD | Routin | 07/03/2017 | Rectal cancer | Results for this | | GLUCOSE (NO CHG), | e | 12:28 PM | (HCC) | procedure are in the | | POC | | PST | | results section. | + +--------+ + + + | CAPILLARY BLOOD | Routin | 07/03/2017 | Rectal cancer | Results for this | | GLUCOSE (NO CHG), | e | 8:47 AM | (HCC) | procedure are in the | | POC | | PST | | results section. | + +--------+ + + + | CAPILLARY BLOOD | Routin | 07/03/2017 | Rectal cancer | Results for this | | GLUCOSE (NO CHG), | e | 6:51 AM | (HCC) | procedure are in the | | POC | | PST | | results section. | + +--------+ + + + | CAPILLARY BLOOD | Routin | 07/03/2017 | Rectal cancer | Results for this | | GLUCOSE (NO CHG), | e | 6:22 AM | (HCC) | procedure are in the | | POC | | PST | | results section. | + +--------+ + + + | CAPILLARY BLOOD | Routin | 07/03/2017 | Rectal cancer | Results for this | | GLUCOSE (NO CHG), | e | 6:06 AM | (HCC) | procedure are in the | | POC | | PST | | results section. | + +--------+ + + + | CAPILLARY BLOOD | Routin | 07/03/2017 | Rectal cancer | Results for this | | GLUCOSE (NO CHG), | e | 5:38 AM | (HCC) | procedure are in the | | POC | | PST | | results section. | + +--------+ + + + | CAPILLARY BLOOD | Routin | 07/03/2017 | Rectal cancer | Results for this | | GLUCOSE (NO CHG), | e | 5:37 AM | (HCC) | procedure are in the | | POC | | PST | | results section. | + +--------+ + + + | CAPILLARY BLOOD | Routin | 07/03/2017 | Rectal cancer | Results for this | | GLUCOSE (NO CHG), | e | 5:09 AM | (HCC) | procedure are in the | | POC | | PST | | results section. | + +--------+ + + + | CARDIOLOGY | | 07/03/2017 | | Results for this | | | | 12:00 AM | | procedure are in the | | | | PST | | results section. | + +--------+ + + + | CAPILLARY BLOOD | Routin | 07/02/2017 | Rectal cancer | Results for this | | GLUCOSE (NO CHG), | e | 9:02 PM | (HCC) | procedure are in the | | POC | | PST | | results section. | + +--------+ + + + | CAPILLARY BLOOD | Routin | 07/02/2017 | Rectal cancer | Results for this | | GLUCOSE (NO CHG), | e | 3:26 PM | (HCC) | procedure are in the | | POC | | PST | | results section. | + +--------+ + + + | CAPILLARY BLOOD | Routin | 07/02/2017 | Rectal cancer | Results for this | | GLUCOSE (NO CHG), | e | 9:24 AM | (HCC) | procedure are in the | | POC | | PST | | results section. | + +--------+ + + + | CARDIOLOGY | | 07/02/2017 | | Results for this | | | | 12:00 AM | | procedure are in the | | | | PST | | results section. | + +--------+ + + + | CAPILLARY BLOOD | Routin | 07/01/2017 | Rectal cancer | Results for this | | GLUCOSE (NO CHG), | e | 10:18 PM | (HCC) | procedure are in the | | POC | | PST | | results section. | + +--------+ + + + | CAPILLARY BLOOD | Routin | 07/01/2017 | Rectal cancer | Results for this | | GLUCOSE (NO CHG), | e | 5:56 PM | (HCC) | procedure are in the | | POC | | PST | | results section. | + +--------+ + + + | CAPILLARY BLOOD | Routin | 07/01/2017 | Rectal cancer | Results for this | | GLUCOSE (NO CHG), | e | 10:07 AM | (HCC) | procedure are in the | | POC | | PST | | results section. | + +--------+ + + + | CAPILLARY BLOOD | Routin | 07/01/2017 | Rectal cancer | Results for this | | GLUCOSE (NO CHG), | e | 9:01 AM | (HCC) | procedure are in the | | POC | | PST | | results section. | + +--------+ + + + | CAPILLARY BLOOD | Routin | 07/01/2017 | Rectal cancer | Results for this | | GLUCOSE (NO CHG), | e | 7:58 AM | (HCC) | procedure are in the | | POC | | PST | | results section. | + +--------+ + + + | CAPILLARY BLOOD | Routin | 07/01/2017 | Rectal cancer | Results for this | | GLUCOSE (NO CHG), | e | 6:01 AM | (HCC) | procedure are in the | | POC | | PST | | results section. | + +--------+ + + + | CAPILLARY BLOOD | Routin | 07/01/2017 | Rectal cancer | Results for this | | GLUCOSE (NO CHG), | e | 4:15 AM | (HCC) | procedure are in the | | POC | | PST | | results section. | + +--------+ + + + | CBC (HEMOGRAM) ONLY | Urgent | 07/01/2017 | | Results for this | | | | 4:08 AM | | procedure are in the | | | | PST | | results section. | + +--------+ + + + | BASIC METABOLIC SET | Urgent | 07/01/2017 | | Results for this | | (NA, K, CL, TCO2, | | 4:08 AM | | procedure are in the | | BUN, CR, GLU, CA) | | PST | | results section. | + +--------+ + + + | CBC ONLY | Urgent | 07/01/2017 | | Results for this | | | | 4:08 AM | | procedure are in the | | | | PST | | results section. | + +--------+ + + + | PHOSPHORUS, PLASMA | Urgent | 07/01/2017 | | Results for this | | | | 4:08 AM | | procedure are in the | | | | PST | | results section. | + +--------+ + + + | MAGNESIUM, PLASMA | Urgent | 07/01/2017 | | Results for this | | | | 4:08 AM | | procedure are in the | | | | PST | | results section. | + +--------+ + + + | CAPILLARY BLOOD | Routin | 07/01/2017 | Rectal cancer | Results for this | | GLUCOSE (NO CHG), | e | 2:18 AM | (HCC) | procedure are in the | | POC | | PST | | results section. | + +--------+ + + + | CAPILLARY BLOOD | Routin | 07/01/2017 | Rectal cancer | Results for this | | GLUCOSE (NO CHG), | e | 12:06 AM | (HCC) | procedure are in the | | POC | | PST | | results section. | + +--------+ + + + | CAPILLARY BLOOD | Routin | 06/30/2017 | Rectal cancer | Results for this | | GLUCOSE (NO CHG), | e | 11:03 PM | (HCC) | procedure are in the | | POC | | PST | | results section. | + +--------+ + + + | CAPILLARY BLOOD | Routin | 06/30/2017 | Rectal cancer | Results for this | | GLUCOSE (NO CHG), | e | 9:44 PM | (HCC) | procedure are in the | | POC | | PST | | results section. | + +--------+ + + + | CAPILLARY BLOOD | Routin | 06/30/2017 | Rectal cancer | Results for this | | GLUCOSE (NO CHG), | e | 8:34 PM | (HCC) | procedure are in the | | POC | | PST | | results section. | + +--------+ + + + | GLUCOSE, PLASMA | Urgent | 06/30/2017 | | Results for this | | | | 8:26 PM | | procedure are in the | | | | PST | | results section. | + +--------+ + + + | OPERATION RECORD | | 06/30/2017 | | Results for this | | | | 7:26 PM | | procedure are in the | | | | PST | | results section. | + +--------+ + + + | CAPILLARY BLOOD | Routin | 06/30/2017 | Rectal cancer | Results for this | | GLUCOSE (NO CHG), | e | 7:20 PM | (HCC) | procedure are in the | | POC | | PST | | results section. | + +--------+ + + + | CAPILLARY BLOOD | Routin | 06/30/2017 | Rectal cancer | Results for this | | GLUCOSE (NO CHG), | e | 6:07 PM | (HCC) | procedure are in the | | POC | | PST | | results section. | + +--------+ + + + | CAPILLARY BLOOD | Routin | 06/30/2017 | Rectal cancer | Results for this | | GLUCOSE (NO CHG), | e | 5:28 PM | (HCC) | procedure are in the | | POC | | PST | | results section. | + +--------+ + + + | PROCEDURE NOTE | Routin | 06/30/2017 | | Results for this | | | e | 5:14 PM | | procedure are in the | | | | PST | | results section. | + +--------+ + + + | PROCEDURE NOTE | Routin | 06/30/2017 | | Results for this | | | e | 2:44 PM | | procedure are in the | | | | PST | | results section. | + +--------+ + + + | CAPILLARY BLOOD | Routin | 06/30/2017 | Rectal cancer | Results for this | | GLUCOSE (NO CHG), | e | 2:32 PM | (HCC) | procedure are in the | | POC | | PST | | results section. | + +--------+ + + + | PROCEDURE NOTE | Routin | 06/30/2017 | | Results for this | | | e | 12:38 PM | | procedure are in the | | | | PST | | results section. | + +--------+ + + + | ABG-FULL ABL, POC | Routin | 06/30/2017 | Rectal cancer | Results for this | | | e | 12:24 PM | (HCC) | procedure are in the | | | | PST | | results section. | + +--------+ + + + | CAPILLARY BLOOD | Routin | 06/30/2017 | Rectal cancer | Results for this | | GLUCOSE (NO CHG), | e | 10:19 AM | ([facility]) | procedure are in the | | POC | | PST | | results section. | + +--------+ + + + | PROCEDURE NOTE | Routin | 06/30/2017 | | | | | e | 8:43 AM | | | | | | PST | | | + +--------+ + + + | CYSTOSCOPY WITH | Electi | 06/30/2017 | Rectal cancer | | | STENT PLACEMENT | ve | 8:03 AM | ([facility]) | | | | Surgic | PST | | | | | al | | | | + +--------+ + + + | LOW ANTERIOR | Electi | 06/30/2017 | Rectal cancer | | | RESECTION WITH OR | ve | 8:03 AM | (HCC) | | | WITHOUT ILEOSTOMY | Surgic | PST | | | | | al | | | | + +--------+ + + + | CAPILLARY BLOOD | Routin | 06/30/2017 | Rectal cancer | Results for this | | GLUCOSE (NO CHG), | e | 6:40 AM | (HCC) | procedure are in the | | POC | | PST | | results section. | + +--------+ + + + | INTRAPROCEDURE | Routin | 06/30/2017 | | Results for this | | IMAGING | e | 5:40 AM | | procedure are in the | | | | PST | | results section. | + +--------+ + + + | INTRAPROCEDURE | Routin | 06/30/2017 | | Results for this | | IMAGING | e | 5:40 AM | | procedure are in the | | | | PST | | results section. | + +--------+ + + + | CARDIOLOGY | | 06/30/2017 | | Results for this | | | | 12:00 AM | | procedure are in the | | | | PST | | results section. | + +--------+ + + + | SURGICAL PATHOLOGY | Routin | 06/30/2017 | | Results for this | | | e | | | procedure are in the | | | | | | results section. | + +--------+ + + + documented in this encounter Results CAPILLARY BLOOD GLUCOSE (NO CHG), POC (07/05/2017 7:53 AM PST) + +-------+ + + + | Component | Value | Ref Range | Performed | Pathologist | | | | | At | Signature | + +-------+ + + + | BLOOD | 93 | 70 - 99 mg/dL | [facility] | | | [facility], | | | [place] | | | POC | | | [facility] | | | | | | [facility] CARE | | | | | | TESTS | | + +-------+ + + + + + | Specimen | + + | | + + + + + + + | Performing | Address | City/State/[facility] | Phone Number | | Organization | | | | + + + + + | [facility] | [address] | [place], [place] | | | [facility] | [address] | [address] | | | TESTS | | | | + + + + + CAPILLARY BLOOD GLUCOSE (NO CHG), POC (07/04/2017 10:14 PM PST) + +---------+ + + + | Component | Value | Ref Range | Performed | Pathologist | | | | | At | Signature | + +---------+ + + + | BLOOD | 131 (H) | 70 - 99 mg/dL | [facility] | | | GLUCOSE, | | | [place] | | | POC | | | [facility] | | | | | | [facility]ARE | | | | | | TESTS | | + +---------+ + + + + + | Specimen | + + | | + + + + + + + | Performing | Address | City/State/Zipcode | Phone Number | | Organization | | | | + + + + + | [facility] | [address] | [place], [place] | | | [facility] [place] [facility] | [facility] | [address] | | | TESTS | | | | + + + + + CAPILLARY BLOOD GLUCOSE (NO CHG), POC (07/04/2017 6:01 PM PST) + +---------+ + + + | Component | Value | Ref Range | Performed | Pathologist | | | | | At | Signature | + +---------+ + + + | BLOOD | 117 (H) | 70 - 99 mg/dL | [facility] - | | | GLUCOSE, | | | [place] | | | POC | | | [facility] | | | | | | OF CARE | | | | | | TESTS | | + +---------+ + + + + + | Specimen | + + | | + + + + + + + | Performing | Address | City/State/Zipcode | Phone Number | | Organization | | | | + + + + + | [facility] | [address] | [place], [place] | | | [facility] | [address] | [address] | | | TESTS | | | | + + + + + CAPILLARY BLOOD GLUCOSE (NO CHG), POC (07/04/2017 1:18 PM PST) + +---------+ + + + | Component | Value | Ref Range | Performed | Pathologist | | | | | At | Signature | + +---------+ + + + | BLOOD | 134 (H) | 70 - 99 mg/dL | [facility] | | | GLUCOSE, | | | [place] | | | POC | | | [facility] | | | | | | OF CARE | | | | | | TESTS | | + +---------+ + + + + + | Specimen | + + | | + + + + + + + | Performing | Address | City/State/Zipcode | Phone Number | | Organization | | | | + + + + + | [facility] | [address] | [place], [place] | | | [facility] | [address] | [address] | | | TESTS | | | | + + + + + CAPILLARY BLOOD GLUCOSE (NO CHG), POC (07/04/2017 8:06 AM PST) + +-------+ + + + | Component | Value | Ref Range | Performed | Pathologist | | | | | At | Signature | + +-------+ + + + | BLOOD | 86 | 70 - 99 mg/dL | [facility] | | | GLUCOSE, | | | [facility] | | | POC | | | [facility] | | | | | | [facility] CARE | | | | | | TESTS | | + +-------+ + + + + + | Specimen | + + | | + + + + + + + | Performing | Address | City/State/Zipcode | Phone Number | | Organization | | | | + + + + + | [facility] | [address] | [place], [place] | | | [facility] [place] | [facility] | [address] | | | TESTS | | | | + + + + + CAPILLARY BLOOD GLUCOSE (NO CHG), POC (07/03/2017 10:30 PM PST) + +---------+ + + + | Component | Value | Ref Range | Performed | Pathologist | | | | | At | Signature | + +---------+ + + + | BLOOD | 102 (H) | 70 - 99 mg/dL | [facility] - | | | GLUCOSE, | | | [place] | | | POC | | | [facility] | | | | | | OF CARE | | | | | | TESTS | | + +---------+ + + + + + | Specimen | + + | | + + + + + + + | Performing | Address | City/State/Zipcode | Phone Number | | Organization | | | | + + + + + | [facility] | [address] | [place], [place] | | | [facility] | [address] | [address] | | | TESTS | | | | + + + + + CAPILLARY BLOOD GLUCOSE (NO CHG), POC (07/03/2017 7:44 PM PST) + +---------+ + + + | Component | Value | Ref Range | Performed | Pathologist | | | | | At | Signature | + +---------+ + + + | BLOOD | 132 (H) | 70 - 99 mg/dL | [facility] | | | GLUCOSE, | | | [place] | | | POC | | | [facility] | | | | | | OF CARE | | | | | | TESTS | | + +---------+ + + + + + | Specimen | + + | | + + + + + + + | Performing | Address | City/State/[facility] | Phone Number | | Organization | | | | + + + + + | [facility] | [address] | [place], [place] | | | [facility] [place] | [facility] | [address] | | | TESTS | | | | + + + + + CAPILLARY BLOOD GLUCOSE (NO CHG), POC (07/03/2017 12:28 PM PST) + +-------+ + + + | Component | Value | Ref Range | Performed | Pathologist | | | | | At | Signature | + +-------+ + + + | BLOOD | 97 | 70 - 99 mg/dL | [facility] | | | GLUCOSE, | | | [facility] | | | POC | | | [facility] | | | | | | OF CARE | | | | | | TESTS | | + +-------+ + + + + + | Specimen | + + | | + + + + + + + | Performing | Address | City/State/Zipcode | Phone Number | | Organization | | | | + + + + + | [facility] | [address] | [place], [place] | | | [facility] | [facility] | [address] | | | TESTS | | | | + + + + + CAPILLARY BLOOD GLUCOSE (NO CHG), POC (07/03/2017 8:47 AM PST) + +---------+ + + + | Component | Value | Ref Range | Performed | Pathologist | | | | | At | Signature | + +---------+ + + + | BLOOD | 139 (H) | 70 - 99 mg/dL | [facility] - | | | GLUCOSE, | | | [place] | | | POC | | | [facility] | | | | | | OF CARE | | | | | | TESTS | | + +---------+ + + + + + | Specimen | + + | | + + + + + + + | Performing | Address | City/State/Zipcode | Phone Number | | Organization | | | | + + + + + | [facility] | [address] | [place], [place] | | | [facility] | [address] | [address] | | | TESTS | | | | + + + + + CAPILLARY BLOOD GLUCOSE (NO CHG), POC (07/03/2017 6:51 AM PST) + +---------+ + + + | Component | Value | Ref Range | Performed | Pathologist | | | | | At | Signature | + +---------+ + + + | BLOOD | 104 (H) | 70 - 99 mg/dL | [facility] | | | GLUCOSE, | | | [place] | | | POC | | | [facility] | | | | | | OF CARE | | | | | | TESTS | | + +---------+ + + + + + | Specimen | + + | | + + + + + + + | Performing | Address | City/State/Zipcode | Phone Number | | Organization | | | | + + + + + | [facility] | [address] | [place], [place] | | | [facility] [place] | [facility] | [address] | | | TESTS | | | | + + + + + CAPILLARY BLOOD GLUCOSE (NO CHG), POC (07/03/2017 6:22 AM PST) + +-------+ + + + | Component | Value | Ref Range | Performed | Pathologist | | | | | At | Signature | + +-------+ + + + | BLOOD | 78 | 70 - 99 mg/dL | [facility] - | | | GLUCOSE, | | | [facility] | | | POC | | | [facility] | | | | | | OF CARE | | | | | | TESTS | | + +-------+ + + + + + | Specimen | + + | | + + + + + + + | Performing | Address | City/State/Zipcode | Phone Number | | Organization | | | | + + + + + | [facility] | [address] | [place], [place] | | | [facility] | [facility] | [address] | | | TESTS | | | | + + + + + CAPILLARY BLOOD GLUCOSE (NO CHG), POC (07/03/2017 6:06 AM PST) + +--------+ + + + | Component | Value | Ref Range | Performed | Pathologist | | | | | At | Signature | + +--------+ + + + | BLOOD | 69 (L) | 70 - 99 mg/dL | [facility] - | | | GLUCOSE, | | | [place] | | | POC | | | [facility] | | | | | | OF CARE | | | | | | TESTS | | + +--------+ + + + + + | Specimen | + + | | + + + + + + + | Performing | Address | City/State/Zipcode | Phone Number | | Organization | | | | + + + + + | [facility] | [address] | [place], [place] | | | [facility] | [address] | [address] | | | TESTS | | | | + + + + + CAPILLARY BLOOD GLUCOSE (NO CHG), POC (07/03/2017 5:38 AM PST) + +-------+ + + + | Component | Value | Ref Range | Performed | Pathologist | | | | | At | Signature | + +-------+ + + + | BLOOD | 75 | 70 - 99 mg/dL | [facility] - | | | GLUCOSE, | | | [place] | | | POC | | | [facility] | | | | | | OF CARE | | | | | | TESTS | | + +-------+ + + + + + | Specimen | + + | | + + + + + + + | Performing | Address | City/State/Zipcode | Phone Number | | Organization | | | | + + + + + | [facility] | [address] | [place], [place] | | | [facility] | [address] | [address] | | | TESTS | | | | + + + + + CAPILLARY BLOOD GLUCOSE (NO CHG), POC (07/03/2017 5:37 AM PST) + +--------+ + + + | Component | Value | Ref Range | Performed | Pathologist | | | | | At | Signature | + +--------+ + + + | BLOOD | 66 (L) | 70 - 99 mg/dL | [facility] - | | | GLUCOSE, | | | [place] | | | POC | | | [facility] | | | | | | OF CARE | | | | | | TESTS | | + +--------+ + + + + + | Specimen | + + | | + + + + + + + | Performing | Address | City/State/Zipcode | Phone Number | | Organization | | | | + + + + + | [facility] | [address] | [place], [place] | | | [facility] | [facility] | [address] | | | TESTS | | | | + + + + + CAPILLARY BLOOD GLUCOSE (NO CHG), POC (07/03/2017 5:09 AM PST) + +--------+ + + + | Component | Value | Ref Range | Performed | Pathologist | | | | | At | Signature | + +--------+ + + + | BLOOD | 69 (L) | 70 - 99 mg/dL | [facility] - | | | GLUCOSE, | | | [place] | | | POC | | | [facility] | | | | | | OF CARE | | | | | | TESTS | | + +--------+ + + + + + | Specimen | + + | | + + + + + + + | Performing | Address | City/State/Zipcode | Phone Number | | Organization | | | | + + + + + | [facility] | [address] | [place], [place] | | | [facility] | [address] | [address] | | | TESTS | | | | + + + + + CARDIOLOGY (07/03/2017 12:00 AM PST) + + + | Narrative | Performed At | + + + | | | + + + CAPILLARY BLOOD GLUCOSE (NO CHG), POC (07/02/2017 9:02 PM PST) + +---------+ + + + | Component | Value | Ref Range | Performed | Pathologist | | | | | At | Signature | + +---------+ + + + | BLOOD | 105 (H) | 70 - 99 mg/dL | [facility] - | | | GLUCOSE, | | | [place] | | | POC | | | [facility] | | | | | | OF CARE | | | | | | TESTS | | + +---------+ + + + + + | Specimen | + + | | + + + + + + + | Performing | Address | City/State/Zipcode | Phone Number | | Organization | | | | + + + + + | [facility] | [address] | [place], [place] | | | [facility] | [address] | [address] | | | TESTS | | | | + + + + + CAPILLARY BLOOD GLUCOSE (NO CHG), POC (07/02/2017 3:26 PM PST) + +---------+ + + + | Component | Value | Ref Range | Performed | Pathologist | | | | | At | Signature | + +---------+ + + + | BLOOD | 104 (H) | 70 - 99 mg/dL | [facility] - | | | GLUCOSE, | | | [place] | | | POC | | | [facility] | | | | | | OF CARE | | | | | | TESTS | | + +---------+ + + + + + | Specimen | + + | | + + + + + + + | Performing | Address | City/State/Zipcode | Phone Number | | Organization | | | | + + + + + | [facility] | [address] | [place], [place] | | | [facility] | [address] | [address] | | | TESTS | | | | + + + + + CAPILLARY BLOOD GLUCOSE (NO CHG), POC (07/02/2017 9:24 AM PST) + +---------+ + + + | Component | Value | Ref Range | Performed | Pathologist | | | | | At | Signature | + +---------+ + + + | BLOOD | 111 (H) | 70 - 99 mg/dL | [facility] - | | | GLUCOSE, | | | [place] | | | POC | | | [facility] | | | | | | OF CARE | | | | | | TESTS | | + +---------+ + + + + + | Specimen | + + | | + + + + + + + | Performing | Address | City/State/Zipcode | Phone Number | | Organization | | | | + + + + + | [facility] | [address] | [place], [place] | | | [facility] | [address] | [address] | | | TESTS | | | | + + + + + CARDIOLOGY (07/02/2017 12:00 AM PST) + + + | Narrative | Performed At | + + + | | | + + + CAPILLARY BLOOD GLUCOSE (NO CHG), POC (07/01/2017 10:18 PM PST) + +---------+ + + + | Component | Value | Ref Range | Performed | Pathologist | | | | | At | Signature | + +---------+ + + + | BLOOD | 144 (H) | 70 - 99 mg/dL | [facility] - | | | GLUCOSE, | | | [place] | | | POC | | | [facility] | | | | | | OF CARE | | | | | | TESTS | | + +---------+ + + + + + | Specimen | + + | | + + + + + + + | Performing | Address | City/State/Zipcode | Phone Number | | Organization | | | | + + + + + | [facility] | [address] | [place], [place] | | | [facility] [place] | [facility] | [address] | | | TESTS | | | | + + + + + CAPILLARY BLOOD GLUCOSE (NO CHG), POC (07/01/2017 5:56 PM PST) + +---------+ + + + | Component | Value | Ref Range | Performed | Pathologist | | | | | At | Signature | + +---------+ + + + | BLOOD | 126 (H) | 70 - 99 mg/dL | [facility] - | | | GLUCOSE, | | | [place] | | | POC | | | [facility] | | | | | | OF CARE | | | | | | TESTS | | + +---------+ + + + + + | Specimen | + + | | + + + + + + + | Performing | Address | City/State/Zipcode | Phone Number | | Organization | | | | + + + + + | [facility] | [address] | [place], [place] | | | [facility] | [facility] | [address] | | | TESTS | | | | + + + + + CAPILLARY BLOOD GLUCOSE (NO CHG), POC (07/01/2017 10:07 AM PST) + +---------+ + + + | Component | Value | Ref Range | Performed | Pathologist | | | | | At | Signature | + +---------+ + + + | BLOOD | 119 (H) | 70 - 99 mg/dL | [facility] - | | | GLUCOSE, | | | [place] | | | POC | | | [facility] | | | | | | OF CARE | | | | | | TESTS | | + +---------+ + + + + + | Specimen | + + | | + + + + + + + | Performing | Address | City/State/Zipcode | Phone Number | | Organization | | | | + + + + + | [facility] | [address] | [place], [place] | | | [facility] | [address] | [address] | | | TESTS | | | | + + + + + CAPILLARY BLOOD GLUCOSE (NO CHG), POC (07/01/2017 9:01 AM PST) + +---------+ + + + | Component | Value | Ref Range | Performed | Pathologist | | | | | At | Signature | + +---------+ + + + | BLOOD | 109 (H) | 70 - 99 mg/dL | [facility] - | | | GLUCOSE, | | | [place] | | | POC | | | [facility] | | | | | | OF CARE | | | | | | TESTS | | + +---------+ + + + + + | Specimen | + + | | + + + + + + + | Performing | Address | City/State/Zipcode | Phone Number | | Organization | | | | + + + + + | [facility] | [address] | [place], [place] | | | [facility] | [facility] | [address] | | | TESTS | | | | + + + + + CAPILLARY BLOOD GLUCOSE (NO CHG) POC (07/01/2017 7:58 AM PST) + +-------+ + + + | Component | Value | Ref Range | Performed | Pathologist | | | | | At | Signature | + +-------+ + + + | BLOOD | 99 | 70 - 99 mg/dL | [facility] - | | | GLUCOSE, | | | [facility] | | | POC | | | [place] | | | | | | [facility] CARE | | | | | | TESTS | | + +-------+ + + + + + | Specimen | + + | | + + + + + + + | Performing | Address | City/State/Zipcode | Phone Number | | Organization | | | | + + + + + | [facility] | [address] | [place], [place] | | | [facility] | [facility] | [phone] | | | TESTS | | | | + + + + + CAPILLARY BLOOD GLUCOSE (NO CHG), POC (07/01/2017 6:01 AM PST) + +---------+ + + + | Component | Value | Ref Range | Performed | Pathologist | | | | | At | Signature | + +---------+ + + + | BLOOD | 118 (H) | 70 - 99 mg/dL | [facility] - | | | GLUCOSE, | | | [place] | | | POC | | | [facility] | | | | | | [facility] | | | | | | TESTS | | + +---------+ + + + + + | Specimen | + + | | + + + + + + + | Performing | Address | City/State/Zipcode | Phone Number | | Organization | | | | + + + + + | [facility] | [address] | [place], [place] | | | [facility] | [address] | [address] | | | TESTS | | | | + + + + + CAPILLARY BLOOD GLUCOSE (NO CHG), POC (07/01/2017 4:15 AM PST) + +---------+ + + + | Component | Value | Ref Range | Performed | Pathologist | | | | | At | Signature | + +---------+ + + + | BLOOD | 105 (H) | 70 - 99 mg/dL | [facility] - | | | GLUCOSE, | | | [facility] | | | POC | | | [facility] | | | | | | [facility] | | | | | | TESTS | | + +---------+ + + + + + | Specimen | + + | | + + + + + + + | Performing | Address | City/State/Zipcode | Phone Number | | Organization | | | | + + + + + | [facility] | [address] | [place], [place] | | | [facility] | [facility] | [address] | | | TESTS | | | | + + + + + CBC (HEMOGRAM) ONLY (07/01/2017 4:08 AM PST) + + + + + + | Component | Value | Ref Range | Performed | Pathologist | | | | | At | Signature | + + + + + + | WHITE CELL | 8.64 | 3.50 - 10.80 | [facility] | | | COUNT | | K/cu mm | LABORATORY | | | | | | SERVICES, | | | | | | CORE | | + + + + + + | RED CELL | 2.94 (L) | 4.00 - 5.20 | [facility] | | | COUNT | | M/cu mm | LABORATORY | | | | | | SERVICES, | | | | | | CORE | | + + + + + + | HEMOGLOBIN | 8.2 (L) | 12.0 - 16.0 | [facility] | | | | | g/dL | LABORATORY | | | | | | SERVICES, | | | | | | CORE | | + + + + + + | HEMATOCRIT | 26.1 (L) | 36.0 - 46.0 % | [facility] | | | | | | LABORATORY | | | | | | SERVICES, | | | | | | CORE | | + + + + + + | MCV | 88.8 | 80.0 - 96.0 fL | [facility] | | | | | | LABORATORY | | | | | | SERVICES, | | | | | | CORE | | + + + + + + | MCHC | 31.4 | 33.0 - 35.5 | [facility] | | | | | g/dL | LABORATORY | | | | | | SERVICES, | | | | | | CORE | | + + + + + + | RDW SD | 51.6 (H) | 35.1 - 46.3 fL | [facility] | | | | | | LABORATORY | | | | | | SERVICES, | | | | | | CORE | | + + + + + + | PLATELET | 318 | 150 - 400 K/cu | [facility] | | | COUNT | | mm | LABORATORY | | | | | | SERVICES, | | | | | | CORE | | + + + + + + | MPV | 8.5 (L) | 9.7 - 12.3 fL | [facility] | | | | | | LABORATORY | | | | | | SERVICES, | | | | | | CORE | | + + + + + + | NRBC% | 0.0 | 0.0 - 0.3 % | [facility] | | | | | | LABORATORY | | | | | | SERVICES, | | | | | | CORE | | + + + + + + | NRBC# | 0.00 | 0.00 - 0.02 | [facility] | | | | | K/cu mm | LABORATORY | | | | | | SERVICES, | | | | | | CORE | | + + + + + + + + | Specimen | + + | Blood - Blood | | (substance) | + + + + + + + | Performing | Address | City/State/Zipcode | Phone Number | | Organization | | | | + + + + + | [facility] | [address] | [place] [address] | | | SERVICES, CORE | [address] | | | + + + + + PHOSPHORUS, PLASMA (07/01/2017 4:08 AM PST) + +---------+ + + + | Component | Value | Ref Range | Performed | Pathologist | | | | | At | Signature | + +---------+ + + + | PHOSPHORUS, | 4.9 (H) | 2.4 - 4.7 mg/dL | [facility] | | | PLASMA | | | LABORATORY | | | (LAB) | | | SERVICES, | | | | | | CORE | | + +---------+ + + + + + | Specimen | + + | Blood - Blood | | (substance) | + + + + + + + | Performing | Address | City/State/Zipcode | Phone Number | | Organization | | | | + + + + + | [facility] | [address] | [place] [address] | | | SERVICES, CORE | [address] | | | + + + + + MAGNESIUM, PLASMA (07/01/2017 4:08 AM PST) + +-------+ + + + | Component | Value | Ref Range | Performed | Pathologist | | | | | At | Signature | + +-------+ + + + | MAGNESIUM,P | 1.6 | 1.6 - 2.6 mg/dL | [facility] | | | LASMA | | | LABORATORY | | | | | | SERVICES, | | | | | | CORE | | + +-------+ + + + + + | Specimen | + + | Blood - Blood | | (substance) | + + + + + | Narrative | Performed At | + + + | Reference range change effective 03/08/17. | [facility] | | | LABORATORY | | | SERVICES, CORE | + + + + + + + + | Performing | Address | City/State/Zipcode | Phone Number | | Organization | | | | + + + + + | [facility] | [address] | [place] [address] | | | SERVICES, CORE | [address] | | | + + + + + BASIC METABOLIC SET (NA, K, CL, TCO2, BUN, CR, GLU, CA) (07/01/2017 4:08 AM PST) + +---------+ + + + | Component | Value | Ref Range | Performed | Pathologist | | | | | At | Signature | + +---------+ + + + | GLUCOSE, | 101 (H) | 70 - 99 mg/dL | [facility] | | | PLASMA | | | LABORATORY | | | (LAB) | | | SERVICES, | | | | | | CORE | | + +---------+ + + + | BUN, PLASMA | 26 (H) | 6 - 20 mg/dL | [facility] | | | (LAB) | | | LABORATORY | | | | | | SERVICES, | | | | | | CORE | | + +---------+ + + + | CREATININE | 0.86 | 0.60 - 1.10 | [facility] | | | PLASMA | | mg/dL | LABORATORY | | | (LAB) | | | SERVICES, | | | | | | CORE | | + +---------+ + + + | EGFR | >60 | >60 mL/min | [facility] | | | - | | | LABORATORY | | | HONDURAN | | | SERVICES, | | | | | | CORE | | + +---------+ + + + | EGFR NON | >60 | >60 mL/min | [facility] | | | -BIRD | | | LABORATORY | | | RICAN | | | SERVICES, | | | | | | CORE | | + +---------+ + + + | SODIUM, | 141 | 136 - 145 | [facility] | | | PLASMA | | mmol/L | LABORATORY | | | (LAB) | | | SERVICES, | | | | | | CORE | | + +---------+ + + + | POTASSIUM, | 4.1 | 3.4 - 5.0 | [facility] | | | PLASMA | | mmol/L | LABORATORY | | | (LAB) | | | SERVICES, | | | | | | CORE | | + +---------+ + + + | CHLORIDE, | 108 | 97 - 108 mmol/L | [facility] | | | PLASMA | | | LABORATORY | | | (LAB) | | | SERVICES, | | | | | | CORE | | + +---------+ + + + | TOTAL CO2, | 26 | 21 - 32 mmol/L | [facility] | | | PLASMA | | | LABORATORY | | | (LAB) | | | SERVICES, | | | | | | CORE | | + +---------+ + + + | CALCIUM, | 7.7 (L) | 8.6 - 10.2 | [facility] | | | PLASMA | | mg/dL | LABORATORY | | | (LAB) | | | SERVICES, | | | | | | CORE | | + +---------+ + + + | ANION GAP | 7 | mmol/L | [facility] | | | | | | LABORATORY | | | | | | SERVICES, | | | | | | CORE | | + +---------+ + + + | POTASSIUM | No Hemo | | [facility] | | | CMNT | | | LABORATORY | | | | | | SERVICES, | | | | | | CORE | | + +---------+ + + + + + | Specimen | + + | Blood - Blood | | (substance) | + + + + + | Narrative | Performed At | + + + | Adult glucose reference range change effective 712-17. GFR is | [facility] | | estimated using the MDRD equation recommended by the National Kidney | LABORATORY | | Disease Education Program. Estimated GFR Interpretive Information: | SERVICES, CORE | | <60 mL/min/1.73 sq m Chronic Kidney Disease | | | <15 mL/min/1.73 sq m Kidney Failure Estimated | | | GFR greater that 60 mL/min/1.73 sq m is of limited clinical value. | | | The MDRD equation is not valid in the following situations: - | | | Patients under 18 years of age - Severe malnutrition or obesity - | | | Vegetarian diet - Rapidly changing kidney function | | + + + + + + + + | Performing | Address | City/State/Zipcode | Phone Number | | Organization | | | | + + + + + | [facility] | [address] | [place] [address] | | | SERVICES, CORE | [address] | | | + + + + + CAPILLARY BLOOD GLUCOSE (NO CHG), POC (07/01/2017 2:18 AM PST) + +---------+ + + + | Component | Value | Ref Range | Performed | Pathologist | | | | | At | Signature | + +---------+ + + + | BLOOD | 125 (H) | 70 - 99 mg/dL | [facility] | | | GLUCOSE, | | | [facility] | | | POC | | | [facility] | | | | | | OF CARE | | | | | | TESTS | | + +---------+ + + + + + | Specimen | + + | | + + + + + + + | Performing | Address | City/State/Zipcode | Phone Number | | Organization | | | | + + + + + | [facility] | [address] | [place], [place] | | | [facility] | [address] | [phone] | | | TESTS | | | | + + + + + CAPILLARY BLOOD GLUCOSE (NO CHG), POC (07/01/2017 12:06 AM PST) + +---------+ + + + | Component | Value | Ref Range | Performed | Pathologist | | | | | At | Signature | + +---------+ + + + | BLOOD | 119 (H) | 70 - 99 mg/dL | [facility] - | | | GLUCOSE, | | | [facility] | | | POC | | | [facility] | | | | | | OF CARE | | | | | | TESTS | | + +---------+ + + + + + | Specimen | + + | | + + + + + + + | Performing | Address | City/State/Zipcode | Phone Number | | Organization | | | | + + + + + | [facility] | [address] | [place], [place] | | | [facility] | [address] | [phone] | | | TESTS | | | | + + + + + CAPILLARY BLOOD GLUCOSE (NO CHG), POC (06/30/2017 11:03 PM PST) + +---------+ + + + | Component | Value | Ref Range | Performed | Pathologist | | | | | At | Signature | + +---------+ + + + | BLOOD | 122 (H) | 70 - 99 mg/dL | [facility] - | | | GLUCOSE, | | | [facility] | | | POC | | | [facility] | | | | | | OF CARE | | | | | | TESTS | | + +---------+ + + + + + | Specimen | + + | | + + + + + + + | Performing | Address | City/State/Zipcode | Phone Number | | Organization | | | | + + + + + | [facility] | [address] | [place], [place] | | | [facility] | [address] | [phone] | | | TESTS | | | | + + + + + CAPILLARY BLOOD GLUCOSE (NO CHG), POC (06/30/2017 9:44 PM PST) + +---------+ + + + | Component | Value | Ref Range | Performed | Pathologist | | | | | At | Signature | + +---------+ + + + | BLOOD | 129 (H) | 70 - 99 mg/dL | [facility] - | | | GLUCOSE, | | | [facility] | | | POC | | | [facility] | | | | | | OF CARE | | | | | | TESTS | | + +---------+ + + + + + | Specimen | + + | | + + + + + + + | Performing | Address | City/State/Zipcode | Phone Number | | Organization | | | | + + + + + | [facility] | [address] | [place], [place] | | | [facility] | [address] | [phone] | | | TESTS | | | | + + + + + CAPILLARY BLOOD GLUCOSE (NO CHG), POC (06/30/2017 8:34 PM PST) + +---------+ + + + | Component | Value | Ref Range | Performed | Pathologist | | | | | At | Signature | + +---------+ + + + | BLOOD | 150 (H) | 70 - 99 mg/dL | [facility] - | | | GLUCOSE, | | | [facility] | | | POC | | | [facility] | | | | | | OF CARE | | | | | | TESTS | | + +---------+ + + + + + | Specimen | + + | | + + + + + + + | Performing | Address | City/State/Zipcode | Phone Number | | Organization | | | | + + + + + | [facility] | [address] | [place], [place] | | | [facility] | [facility] | [phone] | | | TESTS | | | | + + + + + GLUCOSE, PLASMA (06/30/2017 8:26 PM PST) + +---------+ + + + | Component | Value | Ref Range | Performed | Pathologist | | | | | At | Signature | + +---------+ + + + | GLUCOSE, | 138 (H) | 70 - 99 mg/dL | [facility] | | | PLASMA | | | LABORATORY | | | (LAB) | | | SERVICES, | | | | | | CORE | | + +---------+ + + + + + | Specimen | + + | Blood - Blood | | (substance) | + + + + + | Narrative | Performed At | + + + | Adult glucose reference range change effective 02-02-. On | [facility] | | arrival to unit | LABORATORY | | | SERVICES, CAR | + + + + + + + + | Performing | Address | City/State/Zipcode | Phone Number | | Organization | | | | + + + + + | [facility] | [address] | [place] [address] | | | SERVICES, CAR | [address] | | | + + + + + OPERATION RECORD (06/30/2017 7:26 PM PST) + + | Procedure Note | + + | Ailyn Wolff MD - 06/30/2017 7:26 PM PST Date of Service: 06/30/2017 Attending | | Surgeon: Ailyn Wolff MD Court Of Appeals Judge(s): Sae Slater MD | | Donna Gonzalez MD Preoperative Diagnosis: endoscopically obstructing MRI | | T4 N0 M0 rectal adenocarcinoma at 6 cm from the anal verge invading the vagina status | | post exploratory laparotomy, transabdominal drainage of left pelvic abscess, and | | construction of end-sigmoid colostomy on July 20, 2016 status post 6 cycles of | | neoadjuvant FOLFOX, completed December 27, 2016 status post neoadjuvant chemoradiation, | | completed February 17, 2017 status post 4 more cycles of FOLFOX, completed on May 02, | | 2017.Postoperative Diagnosis: 1. same2. extensive adhesions.Procedures: 1. | | Exploratory laparotomy.2. Extensive lysis of adhesions (Modifier -22 requested, this | | took more than 3.5 hours).3. Total mesorectal excision via intersphincteric | | abdominoperineal resection with en bloc resection of left ovary, left fallopian tube, | | and posterior vaginal muscular wall.4. Primary repair of posterior vaginal defect.5. | | Pelvic biopsies.6. Excision of left lower quadrant fistula tract.7. Small bowel | | resection with primary anastomosis.8. Placement of a 19-Sudanese Malissa drain through the | | right lower quadrant wall into the presacral space.9. 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 Placement of anthony drain into former rectocutaneous | | [id number]. Cystoscopy and bilateral ureteral stent placement with Dr. Cole Sánchez, | | Dr. Delilah Chino. and Dr. Natalie Poon.Intraoperative Consultations: By Dr. Lombardi | | Duty of Urology and by Gynecology.Anesthesia: General endotracheal with an | | epidural.Intravenous Fluids: 5600 mL of crystalloid.Estimated Blood Loss: 750 mL.Urine | | Output: 340 mL.Specimens: 1. Sigmoid colon, rectum, anus, and part of the muscular | | wall of the posterior vagina.2. Abdominal wall tract.3. Left pelvic sidewall biopsy.4. | | Posterior vaginal wall biopsy.5. Tissue adjacent to the left ureter.6. Small bowel | | resection with fistula tract.Complications: Unavoidable enterotomy, which was | | resected.Indications: Patient is a 56-year-old female who presented with rectal urgency | | and a lot of rectal bleeding on July 19, 2016. CT scan of the abdomen and pelvis | | with IV contrast on July 20, 2016, found an 11 cm complex mass in the pelvis. She | | was admitted that day. On July 21, 2016, she underwent an exploratory laparotomy, | | transabdominal drainage of left pelvic abscess with a #10 flat Malissa drain, placement of | | a Prolene stitch in the distal Mendoza pouch, and construction of end-sigmoid | | colostomy. On September 02, 2016, Dr. Thacker performed colonoscopy via the anus to the low | | rectal mass and via the ostomy to the cecum with a good prep. He was unable to pass | | the nearly circumferential right posterolateral rectal mass. Biopsy of the mass found | | tumor adenoma. There was 1 small cecal diverticulum. There was a tubular adenoma at 35 | | cm and a hyperplastic polyp at 40 cm. There was sigmoid diverticulosis. Rigid | | proctoscopy by Dr. Thacker on September 02, 2016, found a lesion 6 cm from the anal verge. | | CEA on September 13, 2016, was 10.7. CT chest with IV contrast on September 17, 2016, | | found two sub cm right middle lobe nodules. Patient had a rectal cancer protocol MRI on | | October 05, 2016; that found invasion of a loop of sigmoid colon, involvement of the | | circumferential radial margin, but no lymphadenopathy. CT scan of the abdomen and | | pelvis with IV contrast on October 05, 2016, found no liver metastases. At this point, | | she was staged as MRI T4, invading vagina, perforated into the left pelvic side cavity, | | N0 M0. I met the patient on October 05, 2016. Rigid proctoscopy identified a lesion at 6 | | cm from the anal verge. I presented her at the [facility] | | conference on October 07, 2016. We recommended an exam under anesthesia to confirm that | | this was a cancer and neoadjuvant therapy. Repeat anal biopsy on October 27, 2016, | | identified cancer. Patient was treated with 6 cycles of FOLFOX, with the last cycle on | | December 27, 2016. She completed 4500 cGy of radiation with a boost of 540 in 25 fractions | | on February 17, 2017. MRI on March 02, 2017, found tumor had responded, but the | | circumferential margin was still threatened. CT scan of the chest, abdomen, and pelvis | | with IV contrast done on March 02, 2017, found no metastatic disease and a small left | | fluid collection next to the Mendoza pouch staple line. I re-presented her at the GI | | oncology conference on 03/10/17. Patient underwent 4 more cycles of FOLFOX, with the | | last one on May 02, 2017. Pelvic MRI on May 17, 2017, found it was close to the | | pelvic sidewall. When we present her at the multidisciplinary GI oncology conference on | | June 02, 2017, the consensus was for low anterior resection with posterior | | vaginectomy and intraoperative radiation for the left pelvic sidewall where the cancer | | was closest. She underwent a repeat CT scan of the chest, abdomen, and pelvis with IV | | contrast on June 13, 2017. The rectal mass was smaller and the left pelvic abscess | | was resolved. The patient quit smoking on July 19, 2016. She underwent an oral | | antibiotic and mechanical bowel prep last night. She comes today for the above | | procedure.Findings: The patient had a palpable right posterior rectal lesion. There | | was a dimple in the posterior vagina where the mass was likely invading. There were no | | visible or palpable parietal peritoneal, small bowel, or small bowel mesenteric | | metastases.The old abscess cavity was overlying the left ureter at the pelvic brim. The | | superior rectal artery was still in place. We performed a high ligation of the | | superior rectal artery pedicle. The abscess cavity was involving the residual sigmoid | | colon, the left ovary, and the left fallopian tube. We performed a total mesorectal | | excision with en bloc resection of the left ovary, left fallopian tube, and part of the | | posterior wall of the vagina, with the vaginal resection being mostly muscular vaginal | | wall. To complete the dissection, we did an intersphincteric abdominoperineal | | resection. We achieved a 6 cm distal margin. Of note, we had lots of fibrosis right | | posteriorly and right anteriorly. We obtained frozen sections from the left pelvic | | sidewall proximal to the pelvic brim and tissue adjacent to the left ureter at the | | pelvic brim. We also biopsied the posterior vaginal wall. All those frozen biopsies | | came back as negative. There was small bowel that was adherent to the fistula tract. | | When we resected the fistula tract, that lead to unavoidable enterotomy, which we | | resected, along with more of the fistula tract. We performed a small bowel [id number]-iqza | | stapled anastomosis. Note, the abscess cavity was overlying the left ureter over the | | pelvic brim. Urology felt they could not safely mobilize the left ureter away from that | | cavity. That was the only place we were worried about positive margin, but all frozen | | sections were negative. Given that the only place that we wanted to radiate was | | overlying the left ureter and this would lead to significant morbidity in terms of | | injury to the ureter and potentially to the bladder, we elected not to radiate. We | | primarily closed the vaginal defect in a running fashion. We closed the | | intersphincteric wound within the anal canal in an interrupted fashion. We closed the | | fascial defect of the fistula tract in a running fashion with sutures x2. We closed the | | midline fascia and left the colostomy where it was. A Malissa drain was left in the | | pelvis. A anthony drain was left in the former rectocutaneous fistula tract.Procedure: | | After the patient, site, and procedure were identified, the patient had an epidural | | placed. Patient was brought back to the operating room. SCD's were placed on both | | lower extremities and turned on. General endotracheal anesthesia was induced without | | incident. An orogastric tube was placed in the usual fashion. Patient was moved into | | the high lithotomy position. Ertapenem 1 g IV was started prior to the Urology | | procedure and completed prior to my incision. Dr. Cole Sánchez, Dr. Delilah Chino, and | | Dr. Natalie Poon performed cystoscopy and bilateral ureteral stent placement without | | incident. They did notice some brown sediment coming from the right ureter when they | | placed the right ureteral stent. Patient was moved into low lithotomy position. On | | digital rectal exam, she had a palpable right posterior mass. This was adherent to the | | vagina. Most of the vaginal mucosa was smooth, but there was a small dimple in the | | middle of the posterior vaginal wall. Patient was prepped and draped in the usual | | sterile fashion. We made a midline incision from just above the umbilicus to the pubic | | symphysis. We entered the abdomen sharply. There was an unavoidable serosal tear to | | the underlying bowel; that we repaired with interrupted 3-0 Vicryl Polysorb sutures. We | | spent the next 3-1/2 hours lysing adhesions between the small bowel and the anterior | | abdominal wall, between the small bowel and the pelvis, between the small bowel and the | | staple line of Mendoza pouch, and between the small bowel and the fistula tract. As we | | were freeing the small bowel from the staple line, we made an unavoidable hole in the | | top of the rectum, which we closed primarily. There was an unavoidable enterotomy where | | the small bowel was stuck to the fistula tract. We resected that using 2 firings of | | the blue GUALBERTO stapler. We divided the mesentery between clamps and 2-0 Polysorb ties. | | That small bowel and overlying fistula tract was sent to Pathology.We performed our | | small bowel anastomosis in the following fashion. We cut off the antimesenteric tips of | | the staple lines. We placed half of an 80 blue load GUALBERTO stapler down each limb. We | | apposed the antimesenteric sides of the bowel. We fired the stapler. The anastomosis | | was widely patent and viable. We closed the residual enteric defect with another firing | | of the GUALBERTO stapler after offsetting the staple lines. We oversewed that staple line | | with interrupted 3-0 Polysorb Lembert sutures. We placed a 3-0 Polysorb apical stitch. | | We closed the mesentery with a 3-0 Polysorb [id number]-bc-[id number] suture. The anastomosis | | was widely patent and viable. We packed all the small bowel into the upper abdomen. We | | identified the superior rectal artery where it inserted into the inferior mesenteric | | artery pedicle. We identified and preserved the left ureter, and we performed a high | | ligation of the superior rectal artery between clamps and 0 Polysorb suture ligatures. | | We performed a total mesorectal excision in the following fashion. We dissected | | posteriorly between the mesorectal fascia and the hypogastric nerves. We dissected | | toward the right and then finally toward the left. On the left, we ended up doing an en | | bloc resection of the left ovary and the left fallopian tube where they were stuck to | | the abscess cavity and to the sigmoid colon. We dissected anteriorly until we reached | | the pelvic floor. Of note, there was significant fibrosis, right posterior and right | | anterior. We made a hole in the vagina, where it was adherent to the vagina. Given how | | deep this pelvis was, we had to complete our dissection by doing intersphincteric | | dissection. We scored the skin in the intersphincteric groove. We placed Gelpi | | retractors. We dissected in the intersphincteric groove until we joined our plane from | | above. There was an unavoidable defect in the anal canal well distal to the tumor; that | | was right anterior. We passed off the specimen to Pathology. The mesorectum looked | | good. There was no vaginal mucosa seen, but there was part of vaginal muscular wall | | that was there. We thought the left fallopian tube and ovary was there. Pathology | | identified the 6 cm gross distal margin. We excised the abdominal wall tract from where | | the drain went through the abdominal wall and along the left pelvic sidewall. That was | | sent for permanent. Where we were most concerned for local recurrence was the abscess | | cavity where the rectal cancer had perforated in the left upper pelvis. That was | | overlying the left ureter along the pelvic brim. We obtained frozen sections of the | | posterior vaginal wall, the left pelvic sidewall next to the ureter above the pelvic | | brim, and the tissue adjacent to the left ureter at the pelvic side brim. All frozen | | sections were negative. Since Radiation Medicine and Urology were uncomfortable with | | radiating the left pelvic sidewall and left ureter, and frozen sections were negative, | | we held off on Intrabeam radiation.We had excellent hemostasis in the pelvis. I closed | | the posterior vagina with running 2-0 Polysorb suture. We closed the levator hiatus and | | the external sphincter with interrupted 0 Polysorb vtdlvc-lc-[id number] sutures. We closed | | the deep dermal layer with interrupted 3-0 Polysorb sutures. We ran the small bowel | | multiple times until we feel able to free the small bowel from the ligament of Treitz. | | There were unavoidable serosal tears that were repaired. The small bowel anastomosis | | looked fine. The KESHAWN/superior rectal pedicle was hemostatic. Both the ureters looked | | fine. The uterus was retroflexed over the pelvic inlet. We closed the fascial defect | | of the fistula tract with running #1 Maxon sutures x2. We placed a 19-Sudanese Malissa | | drain through the right lower quadrant abdominal wall into the presacral space. It was | | secured to the skin with 2-0 nylon suture. We closed the fascia of the midline incision | | with running #1 Maxon sutures x2. We irrigated the wound. We closed the skin with | | myrna. We removed the suture from the ostomy. We placed a anthony into the former | | rectocutaneous fistula. We removed the ureteral stents, and both stents were intact. | | Patient will be returned to supine position, will be extubated, and will be transferred | | to the PACU. I was present and scrubbed for the entire procedure except for the fascia | | and skin closure. At that point, I was immediately available.Ailyn Wolff, BERNARDO/MODLDD: | | 06/30/2017 17:03:37DT: 06/30/2017 19:26:50Job #: [id number] | | | | /[id number] | + + CAPILLARY BLOOD GLUCOSE (NO CHG), POC (06/30/2017 7:20 PM PST) + +---------+ + + + | Component | Value | Ref Range | Performed | Pathologist | | | | | At | Signature | + +---------+ + + + | BLOOD | 221 (H) | 70 - 99 mg/dL | [facility] | | | [facility], | | | [facility] | | | P[facility] | | | [facility] | | | | | | [facility] | | | | | | TESTS | | + +---------+ + + + + + | Specimen | + + | | + + + + + + + | Performing | Address | City/State/Zipcode | Phone Number | | Organization | | | | + + + + + | [facility] | [address] | [place], [place] | | | [facility] | [address] | [address] | | | TESTS | | | | + + + + + CAPILLARY BLOOD GLUCOSE (NO CHG), POC (06/30/2017 6:07 PM PST) + +---------+ + + + | Component | Value | Ref Range | Performed | Pathologist | | | | | At | Signature | + +---------+ + + + | BLOOD | 212 (H) | 70 - 99 mg/dL | [facility] | | | [facility], | | | [facility] | | | POC | | | [facility] | | | | | | OF CARE | | | | | | TESTS | | + +---------+ + + + + + | Specimen | + + | | + + + + + + + | Performing | Address | City/State/Zipcode | Phone Number | | Organization | | | | + + + + + | [facility] | [address] | [place], [place] | | | [facility] | [address] | [address] | | | TESTS | | | | + + + + + CAPILLARY BLOOD GLUCOSE (NO CHG), POC (06/30/2017 5:28 PM PST) + +---------+ + + + | Component | Value | Ref Range | Performed | Pathologist | | | | | At | Signature | + +---------+ + + + | BLOOD | 195 (H) | 70 - 99 mg/dL | [facility] | | | [facility], | | | [facility] | | | POC | | | [facility] | | | | | | [facility] CARE | | | | | | TESTS | | + +---------+ + + + + + | Specimen | + + | | + + + + + + + | Performing | Address | City/State/Zipcode | Phone Number | | Organization | | | | + + + + + | [facility] | [address] | [place], [place] | | | [facility] | [address] | [phone] | | | TESTS | | | | + + + + + PROCEDURE NOTE (06/30/2017 5:14 PM PST) + + | Procedure Note | + + | Sae Slater MD - 06/30/2017 5:14 PM PST BRIEF OPERATIVE NOTEProcedure Date: | | 06/30/2017Author: Sae Slater [facility] Physician: Dr. Ailyn Suhts: Sae | | MD Nohemy, [id number] Gonzalez MD, [id number] Diagnosis: rectal cancerPostoperative | | Diagnosis: sameProcedure Performed: 1. Intersphincteric APR2. En bloc resection of | | rectum, sigmoid, left ovary, left fallopian tube, and abscess cavity3. Enterectomy with | | primary anastomosis4. Tractotomy5. 3.5 hour lysis of adhesionsFindings: see full op note | | for detailComplications: none Fluids: EBL: 750 ml, UOP: 340 and crystalloid: | | 5600Specimens: Pathology: sigmoid colum, rectum, anus, posterior vagina. abdominal wall | | tract, left pelvic side wall, posterior vaginal wall, tissue adjacent to left ureter, | | small bowel fistula tract, small bowelDrains: Malissa 19 Fr in pelvis Disposition: PACU | | then acute care Castillo: Remove POD #2 if urine clear Diet: clears DVT prophylaxis: | | contraindicated until POD#1 PM Antibiotic Plan: None Glycemic control: SQ sliding scale | | Dressing care: MD to remove on POD # 2 Activity restrictions: HOB > 30 degrees and | | Abdominal precautionsInitial surgical contact: Green internal combustion engine inspector. Sae Slater MDGeneral | | Surgery, [id number] | |2. En bloc resection of rectum, sigmoid, left ovary, left fallopian tube, and abscess cavit y | |3. Enterectomy with primary anastomosis | |4. Tractotomy | |5. 3.5 hour lysis of adhesions | | | |Findings: see full op note for detail | | | |Complications: none | | | |Fluids: EBL: 750 ml, UOP: 340 and crystalloid: 5600 | | | |Specimens: Pathology: sigmoid colum, rectum, anus, posterior vagina. abdominal wall tract, left pelvic side wall, posterior vaginal wall, tissue adjacent to left ureter, small bowel f istula tract, small bowel | | | |Drains: Malissa 19 Fr in pelvis | | | |Disposition: PACU then acute care | | | | Castillo: Remove POD #2 if urine clear | | | | Diet: clears | | | | DVT prophylaxis: contraindicated until POD#1 PM | | | | Antibiotic Plan: None | | | | Glycemic control: SQ sliding scale | | | | Dressing care: MD to remove on POD # 2 | | | | Activity restrictions: HOB > 30 degrees and Abdominal precautions | | | | | |Initial surgical contact: Green internal combustion engine inspector. | | | | | |Sae Slater MD | |General Surgery, R5 | |Pager [phone] | + + PROCEDURE NOTE (06/30/2017 2:44 PM PST) + + | Procedure Note | + + | Delilah Jerome MD - 06/30/2017 2:44 PM PST OPERATIVE NOTE Procedure Date: | | 06/30/2017 Author: Delilah Vale MD Attending Physician: Harjit Clark Assistants: | | Delilah Vale MD. Preoperative Diagnosis: Rectal cancer, history of | | chemoradiation Postoperative Diagnosis: same Procedure Performed: Left ureterolysis | | Estimated Blood Loss: minimal from urology portion of the procedure Fluids: per | | anesthesia Specimens: NoneComplications: noneDrains: 1. 5F ureteral catheters | | bilaterally (placed earlier this am by urology team).2. 16F castillo catheterIndications: | | 56 year old female with a history of perforated rectal cancer, who is s/p | | chemoradiation. She is undergoing an LAR, posterior vaginectomy, with potential | | intraoperative radiation. Her left ureter was found to be very adhesed to the | | surrounding pelvic and urology was consulted to assisted with mobilizing the ureter, so | | that radiation oncology can shield the ureter from radiation. Findings: The left ureter | | was very adhesed at the level just proximal to the iliac bifurcation with a fibrotic | | rind around it. It was mobilized to the the posterior base of the uterus. Procedure in | | detail: The patient was already positioned and draped when urology was consulted for | | this portion of the position. The left ureter was very adhesed at the level just | | proximal to the iliac bifurcation with a fibrotic rind around it. A vessel loop was | | placed around the ureter to mobilize its manipulation. We carefully mobilized the ureter | | from its surrounding attachment, trying to preserve its surrounding blood supply. We | | managed to mobilize the ureter to near the posterior aspect of the uterus and this was | | felt by the radiation oncology team to be distal enough for their radiation field. There | | was no evidence of injury to the ureter. There was no active bleeding noted at the | | conclusion of our portion of the procedure. The Colorectal surgery team then resumed | | their portion of the procedure.Dr. Clark was present and scrubbed for all critical | | portions of the procedure. Disposition: PACU then wardPost operative plan:- Recommend | | CINTIA in 3-4 weeks to look for hydronephrosis (sooner if indicated ie. Cr elevates or c/o | | flank pain). Delilah Calvert [id number] of Urology | | | |Indications: 56 year old female with a history of perforated rectal cancer, who is s/p chem oradiation. She is undergoing an LAR, posterior vaginectomy, with potential intraoperative r adiation. Her left ureter was | |found to be very adhesed to the surrounding pelvic and urology was consulted to assisted wi th mobilizing the ureter, so that radiation oncology can shield the ureter from radiation. | | | |Findings: The left ureter was very adhesed at the level just proximal to the iliac bifurcat ion with a fibrotic rind around it. It was mobilized to the the posterior base of the uterus . | | | |Procedure in detail: The patient was already positioned and draped when urology was consult ed for this portion of the position. The left ureter was very adhesed at the level just prox imal to the iliac bifurcation with | |a fibrotic rind around it. A vessel loop was placed around the ureter to mobilize its manip ulation. We carefully mobilized the ureter from its surrounding attachment, trying to preser ve its surrounding blood supply. | |We managed to mobilize the ureter to near the posterior aspect of the uterus and this was f elt by the radiation oncology team to be distal enough for their radiation field. There was no evidence of injury to the | |ureter. There was no active bleeding noted at the conclusion of our portion of the procedur e. The Colorectal surgery team then resumed their portion of the procedure. | | | |Dr. Clark was present and scrubbed for all critical portions of the procedure. | | | |Disposition: PACU then gurrola | | | |Post operative plan: | |- Recommend CINTIA in 3-4 weeks to look for hydronephrosis (sooner if indicated ie. Cr elevate s or c/o flank pain). | | | | | | | |Delilah Vale | |Pager [phone] | |PGY-5 | |Department of Urology | + + CAPILLARY BLOOD GLUCOSE (NO CHG), POC (06/30/2017 2:32 PM PST) + +---------+ + + + | Component | Value | Ref Range | Performed | Pathologist | | | | | At | Signature | + +---------+ + + + | BLOOD | 157 (H) | 70 - 99 mg/dL | [facility] | | | [facility], | | | [facility] | | | POC | | | [facility] | | | | | | OF CARE | | | | | | TESTS | | + +---------+ + + + + + | Specimen | + + | | + + + + + + + | Performing | Address | City/State/Zipcode | Phone Number | | Organization | | | | + + + + + | [facility] | [address] | [place], [place] | | | [facility] | [address] | [phone] | | | TESTS | | | | + + + + + PROCEDURE NOTE (06/30/2017 12:38 PM PST) + + | Procedure Note | + + | Natalie Poon MD - 06/30/2017 8:43 AM PST DATE OF OPERATION: | | 06/30/2017PREOPERATIVE DIAGNOSES: Rectal cancer POSTOPERATIVE DIAGNOSES: rectal cancer | | OPERATION PERFORMED: 1. Cystoscopy and bilateral ureteral stent placementSURGEON: Juan Luis, | | MD Princess INTEGRATION SPECIALIST: Natalie Poon MDANESTHESIA: General. ESTIMATED BLOOD LOSS: | | 0 mL. INTRAVENOUS FLUIDS: per anesthesia recordPOSTOPERATIVE DRAINS: 1. 5 Fr open ended | | ureteral catheter on the right2. 5 Fr open ended ureteral catheter on the left3. 16 Fr | | castillo catheter with 10 ml of sterile water in the balloonSPECIMENS:NoneFINDINGS: no | | bladder tumors noted. Bilateral orthotopic ureteral orifice location. Right UO efflux of | | sediment containing urine, not purulent. INDICATIONS FOR PROCEDURE: .The patient is a | | 56 y.o. year old woman undergoing low anterior resection, posterior vaginectomy by Ailyn | | MD Mariella. The risks, benefits, indications and alternatives of cystoscopy and bilateral | | ureteral stent placement were explained to the patient in detail, including but not | | limited to, bleeding, infection, damage to surrounding structures, bladder perforation, | | damage to the ureteral orifices, urethral stricture, need for repeat surgery and the | | cardiopulmonary risks of general anesthesia. Informed consent was obtained.PROCEDURE IN | | DETAIL:The patient was brought to the operating room and was placed on the table in the | | supine position. After the induction of general anesthesia, the patient was placed in | | the lithotomy position and given ertapenem IV at the start of the case. TEDs and SCDs | | were placed for DVT prophylaxis. A timeout was performed confirming the proper patient, | | site, and procedure. The genitals and perineum were prepped and draped in the usual | | sterile fashion. A 21 turkmen cystoscope was inserted into the urethra atraumatically. | | The urethra was normal. The remainder of the bladder was normal without lesions.A 5 Fr | | ureteral catheter was easily advanced into the right ureteral orifice up to 25 cm | | without resistance, eflux of urine from the right UO contained sediment, non-purulent. A | | 5 Fr ureteral catheter was advanced on the left side without difficulty. Both ureteral | | catheters were secured to a 16 Fr castillo catheter that was inflated with 10 ml of sterile | | water. The patient tolerated the procedure well. The patient was then turned back over | | to the primary surgical team for their portion of the procedure. Dr. Sánchez was present | | and directed the entirety of the case.The attending of record is Juan Luis Dee | | MD Cleve PGY - 1Department of Urology PGR [phone] | |The patient was brought to the operating room and was placed on the table in the supine pos ition. After the induction of general anesthesia, the patient was placed in the lithotomy po sition and given ertapenem IV at the | |start of the case. TEDs and SCDs were placed for DVT prophylaxis. A timeout was performed c onfirming the proper patient, site, and procedure. The genitals and perineum were prepped an d draped in the usual sterile | |fashion. A 21 turkmen cystoscope was inserted into the urethra atraumatically. The urethra w as normal. The remainder of the bladder was normal without lesions. | | | |A 5 Fr ureteral catheter was easily advanced into the right ureteral orifice up to 25 cm wi thout resistance, eflux of urine from the right UO contained sediment, non-purulent. A 5 Fr ureteral catheter was advanced on | |the left side without difficulty. Both ureteral catheters were secured to a 16 Fr castillo cat heter that was inflated with 10 ml of sterile water. | | | |The patient tolerated the procedure well. The patient was then [facility] for their portion of the procedure. Dr. Sánchez was present and directed t he entirety of the case. | | | |The attending of record is Juan Luis Sánchez | | | | | |Natalie Poon MD | |PGY - 1 | |Department of Urology | |PGR [phone] | + + ABG-FULL ABL, POC (06/30/2017 12:24 PM PST) + + + + + + | Component | Value | Ref Range | Performed | Pathologist | | | | | At | Signature | + + + + + + | PH | 7.29 (L) | 7.37 - 7.44 | [facility] | | | [facility], | | | [facility] | | | POC | | | [facility] | | | | | | OF CARE | | | | | | TESTS | | + + + + + + | PO2 | 123 (H) | 72 - 104 mmHg | [facility] | | | [facility], | | | [facility] | | | POC | | | [facility] | | | | | | OF CARE | | | | | | TESTS | | + + + + + + | PCO2 | 50 (H) | 32 - 43 mmHg | [facility] | | | [facility], | | | [facility] | | | POC | | | [facility] | | | | | | OF CARE | | | | | | TESTS | | + + + + + + | TOTAL | 9.5 (L) | 12.0 - 16.0 | [facility] - | | | HEMOGLOBIN, | | g/dL | [facility] | | | POC | | | [facility] | | | | | | OF CARE | | | | | | TESTS | | + + + + + + | O2 SAT | 98.5 (H) | 92.0 - 98.0 % | [facility] | | | [facility], | | | [facility] | | | POC | | | [facility] | | | | | | [facility] CARE | | | | | | TESTS | | + + + + + + | OXYHEMOGLOB | 96.5 | 94.0 - 100 % | [facility] - | | | IN, POC | | | [facility] | | | | | | [facility] | | | | | | OF CARE | | | | | | TESTS | | + + + + + + | HEMATOCRIT, | 29.2 (L) | 36.0 - 46.0 % | [facility] | | | POC | | | [facility] | | | | | | [facility] | | | | | | OF CARE | | | | | | TESTS | | + + + + + + | POTASSIUM, | 3.8 | 3.4 - 5.0 | [facility] - | | | POC | | mmol/L | [facility] | | | | | | [facility] | | | | | | OF CARE | | | | | | TESTS | | + + + + + + | SODIUM, POC | 139 | 134 - 143 | [facility] - | | | | | mmol/L | [facility] | | | | | | [facility] | | | | | | OF CARE | | | | | | TESTS | | + + + + + + | ALEX | 1.18 | 1.14 - 1.32 | [facility] - | | | IONIZED CA, | | mmol/L | [facility] | | | POC | | | [facility] | | | | | | OF CARE | | | | | | TESTS | | + + + + + + | CHLORIDE, | 108 | 97 - 108 mmol/L | [facility] - | | | POC | | | [facility] | | | | | | [facility] | | | | | | OF CARE | | | | | | TESTS | | + + + + + + | GLUCOSE, | 170 (H) | 70 - 99 mg/dL | [facility] - | | | POC | | | [facility] | | | | | | [facility] | | | | | | OF CARE | | | | | | TESTS | | + + + + + + | HCO3 | 24.0 | 21 - 28 mmol/L | [facility] | | | [facility], | | | [facility] | | | POC | | | [facility] | | | | | | OF CARE | | | | | | TESTS | | + + + + + + | BASE EXCESS | -2.5 | | [facility] - | | | [facility], | | | [facility] | | | POC | | | [facility] | | | | | | OF CARE | | | | | | TESTS | | + + + + + + | LACTATE | 0.5 | 0.5 - 1.6 | [facility] - | | | ARTERIAL, | | mmol/L | [facility] | | | POC | | | [facility] | | | | | | OF CARE | | | | | | TESTS | | + + + + + + | METHEMOGLOB | 0.4 | 0.0 - 1.9 % | [facility] - | | | IN, POC | | | [facility] | | | | | | [facility] | | | | | | OF CARE | | | | | | TESTS | | + + + + + + | PAT TEMP | 37.0 | | [facility] - | | | ART, POC | | | [facility] | | | | | | [facility] | | | | | | OF CARE | | | | | | TESTS | | + + + + + + + + | Specimen | + + | | + + + + + + + | Performing | Address | City/State/Zipcode | Phone Number | | Organization | | | | + + + + + | [facility] | [address] | [place], [place] | | | [facility] | [facility] | [phone] | | | TESTS | | | | + + + + + CAPILLARY BLOOD GLUCOSE (NO CHG), POC (06/30/2017 10:19 AM PST) + +---------+ + + + | Component | Value | Ref Range | Performed | Pathologist | | | | | At | Signature | + +---------+ + + + | BLOOD | 145 (H) | 70 - 99 mg/dL | [facility] | | | [facility], | | | [facility] | | | POC | | | [facility] | | | | | | OF CARE | | | | | | TESTS | | + +---------+ + + + + + | Specimen | + + | | + + + + + + + | Performing | Address | City/State/Zipcode | Phone Number | | Organization | | | | + + + + + | [facility] | [address] | [place], [place] | | | [facility] | [address] | [phone] | | | TESTS | | | | + + + + + CAPILLARY BLOOD GLUCOSE (NO CHG), POC (06/30/2017 6:40 AM PST) + +-------+ + + + | Component | Value | Ref Range | Performed | Pathologist | | | | | At | Signature | + +-------+ + + + | BLOOD | 88 | 70 - 99 mg/dL | [facility] | | | [facility], | | | [facility] | | | POC | | | [facility] | | | | | | OF CARE | | | | | | TESTS | | + +-------+ + + + + + | Specimen | + + | | + + + + + + + | Performing | Address | City/State/Zipcode | Phone Number | | Organization | | | | + + + + + | [facility] | [address] | [place], [place] | | | [facility] | [address] | [address] | | | TESTS | | | | + + + + + INTRAPROCEDURE IMAGING (06/30/2017 5:40 AM PST) + + | Specimen | + + | | + + + + + | Narrative | Performed At | + + + | See admission | | | or procedure notes for details of any intraprocedure images obtained. | | + + + INTRAPROCEDURE IMAGING (06/30/2017 5:40 AM PST) + + | Specimen | + + | | + + + + + | Narrative | Performed At | + + + | See admission | | | or procedure notes for details of any intraprocedure images obtained. | | + + + SURGICAL PATHOLOGY (06/30/2017) + + + + + + | Component | Value | Ref Range | Performed | Pathologist | | | | | At | Signature | + + + + + + | SURGICAL | SOURCE OF SPECIMEN:A | | [facility] | | | PATHOLOGY | Sigmoid colon, rectum, | | DEPARTMENT | | | | anus, and | | OF | | | | posteriorSOURCE OF | | PATHOLOGY | | | | SPECIMEN:B Abdominal | | | | | | wall tractSOURCE OF | | | | | | SPECIMEN:C Left pelvic | | | | | | sidewall FSSOURCE OF | | | | | | SPECIMEN:D Posterior | | | | | | vaginal wall FSSOURCE OF | | | | | | SPECIMEN:E Tissue | | | | | | adjacent to left ureter | | | | | | FSSOURCE OF SPECIMEN:F | | | | | | Small bowel/fistula | | | | | | tract Final | | | | | | Pathologic Diagnosis:A. 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 Abdominal wall tract, | | | | | | excision: - | | | | | | Squamous lined sinus | | | | | | tract with chronic | | | | | | inflammation - | | | | | | Negative for malignancy | | | | | | C. Left pelvic | | | | | | sidewall, biopsy: | | | | | | - Negative for | | | | | | malignancy D. | | | | | | Posterior vaginal wall, | | | | | | biopsy: - Negative | | | | | | for malignancy E. | | | | | | Tissue adjacent to left | | | | | | ureter, biopsy: - | | | | | | Negative for malignancy | | | | | | F. 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, excision: | | | | | | - Small bowel | | | | | | with transmural defect | | | | | | and acute serositis | | | | | | - Negative for | | | | | | malignancy | | | | | | Comment: The carcinoma | | | | | | is focally present at | | | | | | the inked and | | | | | | cauterizedradial margin | | | | | | (slide A3).Colon and | | | | | | Rectum Resection Cancer | | | | | | SynopsisSpecimens | | | | | | InvolvedSpecimens: | | | | | | A: Sigmoid colon, | | | | | | rectum, anus, and | | | | | | posterior | | | | | | Specimen: Sigmoid | | | | | | colonRectumAnusProcedure | | | | | | : Low anterior | | | | | | resectionTumor Site: | | | | | | RectumTumor Size: | | | | | | Cannot be determined: | | | | | | 5.8Macroscopic | | | | | | Tumor Perforation: | | | | | | Not | | | | | | identifiedHistologic | | | | | | Type: | | | | | | AdenocarcinomaHistolog | | | | | | ic Grade: Low-grade | | | | | | (well to moderately | | | | | | differentiated)Tumor | | | | | | invades through the | | | | | | muscularis propria into | | | | | | the subserosal | | | | | | adiposetissue or the | | | | | | nonperitonealized | | | | | | pericolic or perirectal | | | | | | soft tissues butdoes not | | | | | | extend to the serosal | | | | | | surfaceMarginsProximal | | | | | | Margin: Negative | | | | | | for invasive | | | | | | carcinomaDistal Margin: | | | | | | Negative for invasive | | | | | | carcinomaCircumferential | | | | | | (Radial) Margin: | | | | | | Positive for invasive | | | | | | carcinoma (tumorpresent | | | | | | 0-1 mm from | | | | | | margin)Treatment Effect: | | | | | | PresentResidual | | | | | | cancer with evident | | | | | | tumor regression, but | | | | | | more than single cellsor | | | | | | rare small groups of | | | | | | cancer cells (partial | | | | | | response, score | | | | | | 2)Angiolymphatic | | | | | | Invasion: AbsentTumor | | | | | | Budding: No tumor | | | | | | budding seenPerineural | | | | | | Invasion: | | | | | | AbsentTumor Deposits: | | | | | | Not identifiedAJCC | | | | | | Stage (7th Edition) | | | | | | (pTNM)TNM Descriptors: | | | | | | yPrimary Tumor | | | | | | (pT): [id number] Lymph | | | | | | Nodes (pN): | | | | | | qN5Aaqcss of regional | | | | | | lymph nodes involved: | | | | | | 0Number of regional | | | | | | lymph nodes examined: | | | | | | 11 Case | | | | | | reviewed by:Narcisa Cazares, | | | | | | M.D./ Surgical Pathology | | | | | | Chuyita Wood, | | | | | | M.D., Ph.D./ Pathologist | | | | | | | | | | | | Intraoperative | | | | | | consultation (frozen | | | | | | section) diagnosis:FSC | | | | | | 1: Left pelvic sidewall | | | | | | - Negative for | | | | | | malignancy.FS D1: | | | | | | Posterior vaginal wall | | | | | | -Negative for | | | | | | malignancyFSE 1: Tissue | | | | | | adjacent to left ureter | | | | | | -Negative for | | | | | | malignancy | | | | | | Intraoperative | | | | | | consultation confirmed | | | | | | by Dmitriy Burch, | | | | | | M.D./Pathologist | | | | | | Clinical History:56 year | | | | | | old female with history | | | | | | of locally advanced | | | | | | rectal cancer statuspost | | | | | | neoadjuvant | | | | | | chemo-radiation. | | | | | | Gross | | | | | | Description:Received are | | | | | | 6 specimens labeled | | | | | | patient's name (initials | | | | | | GR) these andmedical | | | | | | record #[id number]. | | | | | | A: Sigmoid colon, rectum | | | | | | and anus and posterior | | | | | | vagina:Received fresh | | | | | | labeled "sigmoid colon | | | | | | rectum and posterior | | | | | | vagina" is acolectomy | | | | | | specimen that measures | | | | | | 37 cm in length, recent | | | | | | meters in diameterand | | | | | | the attached anus | | | | | | measures 1.5 cm in | | | | | | length and 3.5 cm in | | | | | | diameter. Asper the | | | | | | surgeon no vaginal | | | | | | mucosa is present, | | | | | | however the | | | | | | underlyingmusculature | | | | | | is. Also per the surgeon | | | | | | a 4.0 x 2.5 cm | | | | | | transmural defect | | | | | | isidentified on the | | | | | | right anterior rectal | | | | | | wall and is inked green. | | | | | | Thedistal/anal | | | | | | resection margins is | | | | | | received stapled, and | | | | | | following removal ofthe | | | | | | staple line the | | | | | | resection margin is | | | | | | inked blue. The | | | | | | radial/mesentericmargin | | | | | | is inked black. The | | | | | | proximal end of the | | | | | | bowel ends in a blind | | | | | | pouchconsistent with | | | | | | prior colostomy. The | | | | | | specimen is opened to | | | | | | show a 5.8 x 3.0cm | | | | | | circumferential scar, | | | | | | 7.0 cm from the distal | | | | | | resection margin, and 27 | | | | | | cmfrom the proximal | | | | | | resection margin. The | | | | | | proximal mucosa is | | | | | | looped back uponitself | | | | | | adherent to the | | | | | | posterior rectal wall, | | | | | | this area of adhesion | | | | | | isexcised 6.0 cm to the | | | | | | proximal mucosal pouch. | | | | | | The cut surfaces of | | | | | | thescar/lesion are | | | | | | densely fibrous 0.2 cm | | | | | | to the radial margin. | | | | | | The cutsurface is also | | | | | | remarkable for an | | | | | | abscess cavity. The | | | | | | superior and | | | | | | inferiorportion of the | | | | | | scar are erythematous | | | | | | and granular. Within the | | | | | | anal mucosais a 0.6 x | | | | | | 0.6 x 0.4 cm white-pink | | | | | | well circumscribed | | | | | | nodule, grosslyabutting | | | | | | the resection margin. No | | | | | | additional gross | | | | | | findings. | | | | | | Representativesections | | | | | | are submitted. B: | | | | | | Abdominal wall | | | | | | tract:Received in | | | | | | formalin labeled | | | | | | "abdominal wall tract" | | | | | | is a 4.2 x 3.9 x 2.1 | | | | | | cmaggregate of | | | | | | yellow-brown | | | | | | fibroadipose tissue | | | | | | fragments. Within the | | | | | | tissuefragment is | | | | | | cylindrical with a lumen | | | | | | and measures 2.8 cm in | | | | | | length and 1.2cm | | | | | | diameter. Master Welder | | | | | | sections are submitted. | | | | | | C: Left pelvic | | | | | | sidewall:Received fresh | | | | | | for intraoperative | | | | | | consultation labeled | | | | | | "left pelvicsidewall" is | | | | | | a 1.5 x 1.0 x 0.3 cm | | | | | | portion of white-pink soft | | | | | | tissue that issubmitted | | | | | | entirely for frozen | | | | | | section analysis and | | | | | | subsequently | | | | | | forpermanent sections. | | | | | | D: Posterior | | | | | | vaginal wall:Received | | | | | | fresh for intraoperative | | | | | | consultation labeled | | | | | | "posterior vaginalwall" | | | | | | is a 1.0 x 0.7 x 0.5 cm | | | | | | portion of white-pink soft | | | | | | tissue that issubmitted | | | | | | entirely for frozen | | | | | | section analysis and | | | | | | subsequently | | | | | | forpermanent sections. | | | | | | E: Tissue adjacent | | | | | | to left ureter:Received | | | | | | fresh for | | | | | | intraoperative | | | | | | consultation labeled | | | | | | "tissue adjacent toleft | | | | | | ureter" is a 2.1 x 1.0 x | | | | | | 0.7 cm aggregate of | | | | | | white-pink soft | | | | | | tissuefragments that are | | | | | | submitted entirely for | | | | | | frozen section analysis | | | | | | andsubsequently for | | | | | | permanent sections. 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 | | | | | | The serosal surface | | | | | | isremarkable for a 3.5 | | | | | | cm defect that has been | | | | | | sutured together. The | | | | | | defectis inked green. | | | | | | The mucosa is white-pink | | | | | | and edematous. No | | | | | | mucosal lesionsare | | | | | | identified. | | | | | | Master Welder sections | | | | | | are submitted. | | | | | | Cassette Index:A1, | | | | | | distal resection margin | | | | | | en faceA2 and A3, scar 2 | | | | | | radial resection | | | | | | marginA4 scar 2 abscess | | | | | | cavityA5 proximal | | | | | | granular and | | | | | | erythematous mucosaA7, | | | | | | distal granular and | | | | | | erythematous mucosaA8 | | | | | | and A9, additional | | | | | | solar manufacturer's representative sections | | | | | | of the scarA 10 anterior | | | | | | defectA 11, bowel | | | | | | looped upon itself to | | | | | | scarA 12 through A15, | | | | | | candidate lymph nodesA | | | | | | 16 through A 18, | | | | | | pericolonic adipose | | | | | | [id number], anal | | | | | | noduleB1, abdominal wall | | | | | | tractC1, left pelvic | | | | | | sidewall, frozen section | | | | | | remnantD1, posterior | | | | | | vaginal wall, frozen | | | | | | section remnantE1, | | | | | | tissue adjacent to left | | | | | | ureter, frozen section | | | | | | remnantF1 and [id number] | | | | | | bowel fistula tract, | | | | | | perpendicularF3 and F4 4 | | | | | | transmural defect | | | | | | NL My electronic | | | | | | signature indicates that | | | | | | I have personally | | | | | | reviewed alldiagnostic | | | | | | slides, the gross and/or | | | | | | microscopic portion of | | | | | | thisreport and | | | | | | formulated the final | | | | | | diagnosis. | | | | | | Electronically signed | | | | | | by: Rafy Wood M.D., | | | | | | Ph.DPathologistDate | | | | | | Completed: 07/05/2017 | | | | | | 1:43PM | | | | + + + + + + + + | Specimen | + + | | + + + + + | Narrative | Performed At | + + + | | | + + + + + + + + | Performing | Address | City/State/Zipcode | Phone Number | | Organization | | | | + + + + + | [facility] | [address] | [place] [address] | | | PATHOLOGY | [address] | | | + + + + + CARDIOLOGY (06/30/2017 12:00 AM PST) + + + | Narrative | Performed At | + + + | | | + + + documented in this encounter Visit Diagnoses + + | Diagnosis | + + | CA of rectum (HCC) - Primary Malignant neoplasm of rectum | + + | Rectal cancer (HCC) Malignant neoplasm of rectum | + + documented in this encounter Administered Medications + +--------+ + +------+------+ | Medication Order | MAR | Action | Dose | Rate | Site | | | Action | Date | | | | + +--------+ + +------+------+ | acetaminophen (TYLENOL) tablet | Given | 07/05/20 | 1,000 mg | | | | 1,000 mg 1,000 mg, oral, EVERY 6 | | 17 11:02 | | | | | HOURS, First dose on Marlyn 06/30/17 | | AM PST | | | | | at 2200, Until Discontinued | | | | | | + +--------+ + +------+------+ +-------+ + +---+---+ | Given | 07/05/20 | 1,000 mg | | | | | 17 4:42 | | | | | | AM PST | | | | +-------+ + +---+---+ | Given | 07/04/20 | 1,000 mg | | | | | 17 9:48 | | | | | | PM PST | | | | +-------+ + +---+---+ +---+---+ | | | +---+---+ + +-------+ +-------+---+---+ | alvimopan (ENTEREG) capsule 12 | Given | 07/04/20 | 12 mg | | | | mg 12 mg, oral, TWICE DAILY, | | 17 9:48 | | | | | doses, First dose on Tue07/01/17 | | PM PST | | | | | at 0900, Last dose on Tue | | | | | | | 07/07/17 at 2100 | | | | | | + +-------+ +-------+---+---+ +-------+ +-------+---+---+ | Given | 07/04/20 | 12 mg | | | | | 17 8:20 | | | | | | AM PST | | | | +-------+ +-------+---+---+ | Given | 07/03/20 | 12 mg | | | | | 17 9:25 | | | | | | PM PST | | | | +-------+ +-------+---+---+ +---+---+ | | | +---+---+ + +-------+ +--------+---+---+ | buPROPion SR (WELLBUTRIN-SR, | Given | 07/05/20 | 150 mg | | | | ZYBAN) tablet 150 mg 150 mg, | | 17 4:42 | | | | | oral, EVERY MORNING, First dose | | AM PST | | | | | on [facility] 06/30/17 at 1845, Until | | | | | | | Discontinued | | | | | | + +-------+ +--------+---+---+ +-------+ +--------+---+---+ | Given | 07/04/20 | 150 mg | | | | | 17 6:40 | | | | | | AM PST | | | | +-------+ +--------+---+---+ | Given | 07/03/20 | 150 mg | | | | | 17 6:10 | | | | | | AM PST | | | | +-------+ +--------+---+---+ + +---+ | | | + +---+ | dextrose 50 % in water IV 25 mL | | | 25 mL, intravenous, NEEDED, | | | Starting Tue07/01/17 at 1003, | | | Until Tue07/05/17 at 2232, CBG | | | less than 70 mg/dL if patient | | | unable to take PO, per Adult | | | Hypoglycemia Protocol | | + +---+ | | | + +---+ + +-------+ +-------+---+---------+ | enoxaparin (LOVENOX) injection | Given | 07/04/20 | 40 mg | | Abdomen | | 40 mg 40 mg, subcutaneous, EVERY | | 17 9:48 | | | | | EVENING, First dose on Fri | | PM PST | | | | | 07/01/17 at 2100, Until | | | | | | | Discontinued | | | | | | + +-------+ +-------+---+---------+ +-------+ +-------+---+---------+ | Given | 07/03/20 | 40 mg | | Abdomen | | | 17 9:25 | | | | | | PM PST | | | | +-------+ +-------+---+---------+ | Given | 07/02/20 | 40 mg | | Abdomen | | | 17 9:05 | | | | | | PM PST | | | | +-------+ +-------+---+---------+ +---+---+ | | | +---+---+ + +-------+ +--------+---+---+ | fentaNYL (SUBLIMAZE) injection | Given | 06/30/20 | 50 mcg | | | | 50 mcg 50 mcg, intravenous, | | 17 6:44 | | | | | POSTPROCEDURE PRN, 4 doses, | | PM PST | | | | | Starting Marlyn 06/30/17 at 1551, | | | | | | | Until Marlyn 06/30/17 at 2004, severe | | | | | | | pain while in Phase I Recovery | | | | | | + +-------+ +--------+---+---+ +-------+ +--------+---+---+ | Given | 06/30/20 | 50 mcg | | | | | 17 6:31 | | | | | | PM PST | | | | +-------+ +--------+---+---+ + +---+ | | | + +---+ | glucagon (GLUCAGEN) injection 1 | | | mg 1 mg, intramuscular, | | | NEEDED, Starting Tue07/01/17 at | | | 1003, Until Tue07/05/17 at 2232, | | | CBG less than 70 mg/dL per Adult | | | Hypoglycemia Protocol | | + +---+ | | | + +---+ | glucose chewable tablet 16 g | | | 16 g, oral, NEEDED, Starting | | | 07/01/17 at 1003, Until Tue | | | 07/05/17 at 2232, CBG less than | | | 70 mg/dL per Adult Hypoglycemia | | | Protocol | | + +---+ | | | + +---+ + +-------+ + +---+---+ | heparin 10 unit/mL IV flush | Given | 07/05/20 | 50 Units | | | | syringe 50 Units 50 Units, | | 17 2:16 | | | | | intravenous, NEEDED, Starting | | AM PST | | | | | 07/05/17 at 0015, Until Tue | | | | | | | 07/05/17 at 2232, line patency | | | | | | + +-------+ + +---+---+ +---+---+ | | | +---+---+ + +-------+ +--------+---+---+ | HYDROmorphone (DILAUDID) | Given | 07/04/20 | 0.3 mg | | | | injection 0.2-0.5 mg 0.2-0.5 mg, | | 17 9:36 | | | | | intravenous, EVERY 2 HOURS | | AM PST | | | | | NEEDED, Starting 07/04/17 at | | | | | | | 0824, Until 07/05/17 at 2232, | | | | | | | severe pain | | | | | | + +-------+ +--------+---+---+ +---+---+ | | | +---+---+ + +-------+ +--------+---+---+ | ibuprofen (MOTRIN) tablet 400 | Given | 07/05/20 | 400 mg | | | | mg 400 mg, oral, THREE TIMES | | 17 4:07 | | | | | DAILY, First dose on Tue07/04/17 | | PM PST | | | | | at 1800, Until Discontinued | | | | | | + +-------+ +--------+---+---+ +-------+ +--------+---+---+ | Given | 07/05/20 | 400 mg | | | | | 17 8:00 | | | | | | AM PST | | | | +-------+ +--------+---+---+ | Given | 07/04/20 | 400 mg | | | | | 17 9:48 | | | | | | PM PST | | | | +-------+ +--------+---+---+ + +---+ | | | + +---+ | insulin lispro (HUMALOG) | | | injection subcutaneous, FOUR | | | TIMES DAILY, First dose on Mon | | | 07/04/17 at 1345, Until | | | Discontinued | | + +---+ | | | + +---+ + + + + +-------+---+ | insulin regular in NaCl 0.9% IV | Rate/Dos | 07/01/20 | 0.9 | 0.9 | | | infusion (1 unit/mL) 0.25-50 | e Change | 17 9:03 | Units/hr | mL/hr | | | Units/hr (0.25-50 mL/hr), | | AM PST | | | | | intravenous, CONTINUOUS, Starting | | | | | | | Marlyn 06/30/17 at 1800, Until Fri | | | | | | | 07/01/17 at 1007 | | | | | | + + + + +-------+---+ + + + +-------+---+ | Rate/Dose Change | 07/01/20 | 1.2 | 1.2 | | | | 17 6:06 | Units/hr | mL/hr | | | | AM PST | | | | + + + +-------+---+ | Rate/Dose Change | 07/01/20 | 0.6 | 0.6 | | | | 17 4:17 | Units/hr | mL/hr | | | | AM PST | | | | + + + +-------+---+ + +---+ | | | + +---+ | insulin regular IV infusion 1 | | | dose, Starting Marlyn 06/30/17 at | | | 1820, Until Marlyn 06/30/17 at 1824 | | + +---+ | | | + +---+ + + + +--------+---+---+ | lactated Ringers IV 500 mL, | Rate/Dos | 07/01/20 | 500 mL | | | | intravenous, POSTPROCEDURE PRN, 1 | e Verify | 17 3:35 | | | | | dose, Starting Marlyn 06/30/17 at | | PM PST | | | | | 1552, Until Marlyn 06/30/17 at 1725, | | | | | | | systolic blood pressure less than | | | | | | | 80 mmHg. 1st line | | | | | | + + + +--------+---+---+ +---------+ +--------+---+---+ | New Bag | 06/30/20 | 500 mL | | | | | 17 5:25 | | | | | | PM PST | | | | +---------+ +--------+---+---+ +---+---+ | | | +---+---+ + + + + + +---+ | lactated Ringers IV 50 mL/hr, | Rate/Dos | 07/04/20 | 50 mL/hr | 50 mL/hr | | | intravenous, CONTINUOUS, Starting | e Verify | 17 8:30 | | | | | Marlyn 06/30/17 at 1830, Until Mon | | AM PST | | | | | 07/04/17 at 1757 | | | | | | + + + + + +---+ + + + + +---+ | Rate/Dose Verify | 07/04/20 | 50 mL/hr | 50 mL/hr | | | | 17 4:12 | | | | | | AM PST | | | | + + + + +---+ | Rate/Dose Verify | 07/03/20 | 50 mL/hr | 50 mL/hr | | | | 17 8:00 | | | | | | PM PST | | | | + + + + +---+ +---+---+ | | | +---+---+ + +---------+ +-----+---+---+ | magnesium sulfate in water IV | New Bag | 07/01/20 | 4 g | | | | (RTU) 4 g 4 g, intravenous, | | 17 1:18 | | | | | ONCE, 1 dose, Tue07/01/17 at 1215 | | PM PST | | | | + +---------+ +-----+---+---+ +---+---+ | | | +---+---+ + +-------+ +--------+---+---+ | nalbuphine (NUBAIN) injection | Given | 07/03/20 | 2.5 mg | | | | 2.5 mg 2.5 mg, intravenous, | | 17 8:07 | | | | | EVERY 15 MINUTES NEEDED, | | AM PST | | | | | Starting Tue07/01/17 at 0604, | | | | | | | Until Tue07/04/17 at 0825, | | | | | | | itching, persistent | | | | | | | nausea/vomiting 30 min following | | | | | | | ondansetron administration | | | | | | + +-------+ +--------+---+---+ +-------+ +--------+---+---+ | Given | 07/03/20 | 2.5 mg | | | | | 17 6:12 | | | | | | AM PST | | | | +-------+ +--------+---+---+ | Given | 07/02/20 | 2.5 mg | | | | | 17 9:05 | | | | | | PM PST | | | | +-------+ +--------+---+---+ +---+---+ | | | +---+---+ + +-------+ +------+---+---+ | ondansetron (ZOFRAN) injection | Given | 07/04/20 | 4 mg | | | | 4 mg 4 mg, intravenous, EVERY 12 | | 17 4:24 | | | | | HOURS NEEDED, Starting Fri | | AM PST | | | | | 07/01/17 at 0604, Until Mon | | | | | | | 07/04/17 at 0825, | | | | | | | nausea/vomiting, first line | | | | | | + +-------+ +------+---+---+ +-------+ +------+---+---+ | Given | 07/02/20 | 4 mg | | | | | 17 12:08 | | | | | | PM PST | | | | +-------+ +------+---+---+ +---+---+ | | | +---+---+ + +-------+ +-------+---+---+ | oxyCODONE (immediate release) | Given | 07/04/20 | 10 mg | | | | (ROXICODONE) tablet 5-15 mg 5-15 | | 17 2:29 | | | | | mg, oral, EVERY 4 HOURS | | PM PST | | | | | NEEDED, Starting Tue07/04/17 at | | | | | | | 0824, Until Tue07/04/17 at 1759, | | | | | | | moderate pain | | | | | | + +-------+ +-------+---+---+ +-------+ +------+---+---+ | Given | 07/04/20 | 5 mg | | | | | 17 9:35 | | | | | | AM PST | | | | +-------+ +------+---+---+ | Given | 07/04/20 | 5 mg | | | | | 17 8:30 | | | | | | AM PST | | | | +-------+ +------+---+---+ +---+---+ | | | +---+---+ + +-------+ +-------+---+---+ | oxyCODONE (immediate release) | Given | 07/05/20 | 10 mg | | | | (ROXICODONE) tablet 5-15 mg 5-15 | | 17 2:25 | | | | | mg, oral, EVERY 3 HOURS | | PM PST | | | | | NEEDED, Starting 07/04/17 at | | | | | | | 1800, Until Tu07/05/17 at 2232, | | | | | | | moderate pain | | | | | | + +-------+ +-------+---+---+ +-------+ +-------+---+---+ | Given | 07/05/20 | 10 mg | | | | | 17 11:02 | | | | | | AM PST | | | | +-------+ +-------+---+---+ | Given | 07/05/20 | 10 mg | | | | | 17 8:00 | | | | | | AM PST | | | | +-------+ +-------+---+---+ +---+---+ | | | +---+---+ + + + +---+---------+---+ | ropivacaine 0.1 %-HYDROmorphone | Rate/Dos | 07/01/20 | | 6 mL/hr | | | 10 mcg/mL epidural infusion | e Verify | 17 7:11 | | | | | epidural, CONTINUOUS, Starting | | AM PST | | | | | Maryln 06/30/17 at 1400, Until Fri | | | | | | | 07/01/17 at 0539 | | | | | | + + + +---+---------+---+ + + +---+---------+---+ | Rate/Dose Verify | 07/01/20 | | 6 mL/hr | | | | 17 4:09 | | | | | | AM PST | | | | + + +---+---------+---+ | Rate/Dose Verify | 06/30/20 | | 6 mL/hr | | | | 17 9:16 | | | | | | PM PST | | | | + + +---+---------+---+ +---+---+ | | | +---+---+ + + + +---+---------+---+ | ropivacaine 0.1 %-HYDROmorphone | Rate/Dos | 07/04/20 | | 6 mL/hr | | | 10 mcg/mL epidural infusion | e Verify | 17 4:12 | | | | | epidural, CONTINUOUS, Starting | | AM PST | | | | | 07/01/17 at 0645, Until Mon | | | | | | | 07/04/17 at 0825 | | | | | | + + + +---+---------+---+ + + +---+---------+---+ | New Bag | 07/03/20 | | 6 mL/hr | | | | 17 1:03 | | | | | | PM PST | | | | + + +---+---------+---+ | Rate/Dose Verify | 07/03/20 | | 6 mL/hr | | | | 17 12:17 | | | | | | PM PST | | | | + + +---+---------+---+ +---+---+ | | | +---+---+ + +-------+ +-------+---+---+ | simethicone chew (MYLICON) | Given | 07/04/20 | 80 mg | | | | tablet 80 mg 80 mg, oral, FOUR | | 17 3:16 | | | | | TIMES DAILY NEEDED, Starting | | PM PST | | | | | 07/04/17 at 1447, Until Tue | | | | | | | 07/05/17 at 2232, bloating | | | | | | + +-------+ +-------+---+---+ +---+---+ | | | +---+---+ documented in this encounter
--- OUTSIDE RECORDS SUMMARY | ~2019-05-24 | XMS | Clinical Summary ---
Demographics + + + | Address | [address] | | | [place] [address] | + + + | Home Phone | | + + + | Preferred Language | Unknown | + + + | Marital Status | | + + + | Judaism Affiliation | Unknown | + + + | Race | Unknown | + + + | Ethnic Group | Unknown | + + + Author + + + | Author | [facility] (Historical as of | | | 03-10-19) | + + + | Organization | [facility] (Historical as of | | | 03-10-19) [...] Team Providers + +------+ + | Care Political Scientist Name | Role | Phone | + [...] +------+-------+ + | MEDICAID | MEDICA | [id number] | | | [address] | | | [place] | | | | [place] | | | [place] | | | | [address] | + +--------+ +------+-------+ + + +--------+ [...] | | | [address] | | | [address] | [place] [address] | + +--------+ +--------+ + +"
--- OUTSIDE RECORDS SUMMARY | ~2019-05-24 | XMS | Encounter Summary ---
Demographics + + + | Address | [address] | | | [place] [address] | + + + | Home Phone [...] Team Providers + +------+ + | Care Dental Hygiene Administrative Assistant Name | Role | Phone | + [...] [address] | | | | | | [place], [place] | | | | | | [address] | | | +--------+ + + + [...] | | | | | [facility]mita [facility]ines [facility] | | | | | | [place] [address] | | | | | | [phone] | | | | | | | [...]
--- OUTSIDE RECORDS SUMMARY | ~2019-05-24 | XMS | Encounter Summary ---
Demographics + + + | Address | [address] | | | [place] [address] | + + + | Home Phone [...] Author + + + | Author | [facility] | + + + | Organization | [facility] | + + + | Address | Unknown | + + + | Phone | Unavailable | + + + Support + + +---------+ + | Name | Relationship | Address | Phone | + + +---------+ + | Darrius Quintana | ECON | Unknown | | + + +---------+ + Care Team Providers + +------+ + | Care Wood Flour Miller Name | Role | Phone | + +------+ + | Kristian Anderson DO | PCP | | + +------+ + Reason for Visit + + + | Reason | Comments | + + + | Question | | + + + Encounter Details +--------+ + + + + | Date | Type | Department | Care Team | Description | +--------+ + + + + | 05/05/ | Telephone | Digestive Health | Ailyn Wolff MD | Question | | 2016 | | [place] [facility] [address] | [address] | | | | | [address] | [place]mita Hines [place], | | | | | Mailcode: Center | [place] [address] | | | | | for Health and | [phone] | | | | | [facility] [address] | | | | | | [place], [place] | | | | | | [address] | | | | | | [phone] | | | +--------+ + + + [...] | | | | | Amita H[place], | | | | | | [place] [address] | | | | | | [phone] | | | | | | | | +--------+---------+ + + + documented as of this encounter Visit Diagnoses Not on filedocumented in this encounter"
--- OUTSIDE RECORDS SUMMARY | ~2019-05-24 | XMS | Encounter Summary ---
Demographics + + + | Address | [address] | | | [place] [address] | + + + | Home Phone | | + + + | Preferred Language | Unknown | + + + | Marital Status | Single | + + + | Judaism Affiliation | NON | + + + | Race | White | + + + | Ethnic Group | Not or | + + + Author + + + | Author | [facility] | + + + | Organization | [facility] | + + + | Address | Unknown | + + + | Phone | Unavailable | + + + Support + + +---------+ + | Name | Relationship | Address | Phone | + + +---------+ + | Darrius Quintana | ECON | Unknown | | + + +---------+ + Care Team Providers + +------+ + | Care Airplane Fueler Name | Role | Phone | + +------+ + | Justin Kristian DO | PCP | | + +------+ + Reason for Visit + + + | Reason | Comments | + + + | Lab findings, | | | teaching, guidance, | | | and counseling | | + + + Encounter Details +--------+ + + + + | Date | Type | Department | Care Team | Description | +--------+ + + + + | 10/07/ | Telephone | Cardiology General | Brittany Laboy | Lab findings, | | 2017 | | at [facility] [address] | [address] | teaching, guidance, | | | | [address] Mailcode: | [address] [place], | and counseling | | | | [address] | [place] [address] | | | | | Health and Healing, | [phone] | | | | | [facility] | | | | | | Floor [place], [place] | | | | | | [address] | | | | | | [phone] | | | +--------+ + + + [...] | | | | | [place]mita [place], | | | | | | [place] [address] | | | | | | [phone] | | | | | | | | +--------+---------+ + + + documented as of this encounter Visit Diagnoses Not on filedocumented in this encounter"
--- OUTSIDE RECORDS SUMMARY | ~2019-05-24 | XMS | Encounter Summary ---
Demographics + + + | Address | [address] | | | [place] [address] | + + + | Home Phone [...] Team Providers + +------+ + | Care Snuff Maker Name | Role | Phone | + +------+ + PCP | Unavailable | + +------+ + Encounter Details +--------+ + + + + | Date | Type | Department | Care Team | Description | +--------+ + + + + | 09/02/ | Hospital | LAB SURGICAL | | | | 2017 | Encounter | PATHOLOGY [address] | | | | | | [address] | | | | | | [place], [place] | | | | | | [address] | | | +--------+ + + + [...] | | | | | Amita Hines [place], | | | | | | [place] [address] | | | | | | [phone] | | | | | | | | +--------+---------+ + + + documented as of this encounter Visit Diagnoses Not on filedocumented in this encounter"
--- OUTSIDE RECORDS SUMMARY | ~2019-05-24 | XMS | Encounter Summary ---
Demographics + + + | Address | [address] | | | [place] [address] | + + + | Home Phone [...] Providers + +------+ + | Care Corrections Lieutenant Name | Role | Phone | + +------+ + | Silvioct Kristian | PCP | | + +------+ + Encounter Details +--------+------+ + + + | Date | Type | Department | Care Team | Description | +--------+------+ + + + | 11/27/ | Lab | Laboratory at [facility] | | Rectal cancer (HCC) | | 2019 | | [address] | | | | | | [place], [place] | | | | | | [address] | | | | | | [phone] | | | +--------+------+ + + + Social History + +-------+ [...] | | | | | Suzy Hines [place], | | | | | | [place] [address] | | | | | | [phone] | | | | | | | | +--------+---------+ + + + documented as of this encounter Procedures + +--------+ + + + | Procedure Name | Priori | Date/Time | Associated Diagnosis | Comments | | | ty | | | | + +--------+ + + + | [facility], | Routin | 11/27/2018 | Rectal cancer | Results for this | | SERUM | e | 10:26 AM | (HCC) | procedure are in the | | | | PDT | | results section. | + +--------+ + + + documented in this encounter Results [facility], SERUM (11/27/2018 10:26 AM PDT) + +-------+ + + + | Component | Value | Ref Range | Performed | Pathologist | | | | | At | Signature | + +-------+ + + + | [facility] | 1.3 | <=2.5 ng/mL | [facility] | | [...] | + + + + + | [employer] [employer] | [address] | [place] [address] | | | SERVICES, CORE | [address] | | | + + + + + documented in this encounter Visit Diagnoses + + | Diagnosis | + + | Rectal cancer (HCC) Malignant neoplasm of rectum | + + documented in this encounter"
--- OUTSIDE RECORDS SUMMARY | ~2019-05-24 | XMS | Encounter Summary ---
Demographics + + + | Address | [address] | | | [place] [address] | + + + | Home Phone [...] Author + + + | Author | [facility] | + + + | Organization | [facility] | + + + | Address | Unknown | + + + | Phone | Unavailable | + + + Support + + +---------+ + | Name | Relationship | Address | Phone | + + +---------+ + | Darrius Quintana | ECON | Unknown | | + + +---------+ + Care Team Providers + +------+ + | Care Online Editor Name | Role | Phone | + +------+ + | Kristian Anderson DO | PCP | | + +------+ + Encounter Details +--------+ + + + + | Date | Type | Department | Care Team | Description | +--------+ + + + + | 07/19/ | MyChart | [facility] | Ailyn Wolff MD | refills | | 2017 | Encounter | Center at [facility] [address] | [address] | | | | | [address] | [place], | | | | | Mailcode: [place] | [place] [address] | | | | | for Health and | [phone] | | | | | [facility] | | | | | | [place], [place] | | | | | | [address] | | | | | | [phone] | | | +--------+ + + + [...] | | | | | [place], | | | | | | [place] [address] | | | | | | [phone] | | | | | | | | +--------+---------+ + + + documented as of this encounter Visit Diagnoses Not on filedocumented in this encounter"
--- OUTSIDE RECORDS SUMMARY | ~2019-05-24 | XMS | Encounter Summary ---
Demographics + + + | Address | [address] | | | [place] [address] | + + + | Home Phone [...] Team Providers + +------+ + | Care Planning Intern Name | Role | Phone | + +------+ + | Kristian Anderson DO | PCP | | + +------+ + Reason for Visit + + + | Reason | Comments | + + + | Lab Results | | + + + Encounter Details +--------+ + + + + | Date | Type | Department | Care Team | Description | +--------+ + + + + | 02/22/ | Telephone | [facility] | Ailyn Wolff MD | Lab Results | | 2018 | | [place] [address] [address] | [address] | | | | | [address] | [facility], | | | | | Mailcode: [place] | [place] [address] | | | | | for Health and | [phone] | | | | | [facility] [address] | | | | | | [place], [place] | | | | | | [address] | | | | | | [phone] | | | +--------+ + + + [...] | | | | | [place], | | | | | | [place] [address] | | | | | | [phone] | | | | | | | | +--------+---------+ + + + documented as of this encounter Visit Diagnoses Not on filedocumented in this encounter"
--- OUTSIDE RECORDS SUMMARY | ~2019-05-24 | XMS | Encounter Summary ---
Demographics + + + | Address | [address] | | | [place] [address] | + + + | Home Phone [...] Team Providers + +------+ + | Care Channel Man Name | Role | Phone | + [...] | +--------+ + + + + | 11/10/ | Abstract | [facility] | Ailyn Wolff MD | Medical Records | | 2018 | | Center at [facility] [address] | [address] | Review | | | | [address] | [place], | | | | | Mailcode: [place] | [place] [address] | | | | | for Health and | [phone] | | | | | [facility] [address] | | | | | | [place], [place] | | | | | | [address] | | | | | | [phone] | | | +--------+ + + + [...] | | | | | [place], | | | | | | [place] [address] | | | | | | [phone] | | | | | | | | +--------+---------+ + + + documented as of this encounter Visit Diagnoses Not on filedocumented in this encounter"
--- OUTSIDE RECORDS SUMMARY | ~2019-05-24 | XMS | Encounter Summary ---
Demographics + + + | Address | [address] | | | [place] [address] | + + + | Home Phone [...] Team Providers + +------+ + | Care Point Of Care Technician Name | Role | Phone | [...] | | 2017 | | Center at [facility] [address] | [address] | | | | | [address] | [place], | | | | | Mailcode: Center | [place] [address] | | | | | for Health and | [phone] | | | | | [facility] [address] | | | | | | [place], [place] | | | | | | [address] | | | | | | [phone] | | | +--------+ + + + [...] | | | | | [place], | | | | | | [place] [address] | | | | | | [phone] | | | | | | | | +--------+---------+ + + + documented as of this encounter Visit Diagnoses Not on filedocumented in this encounter"
--- OUTSIDE RECORDS SUMMARY | ~2019-05-24 | XMS | Encounter Summary ---
Demographics + + + | Address | [address] | | | [place] [address] | + + + | Home Phone [...] Team Providers + +------+ + | Care Carcass Washer Name | Role | Phone | + +------+ + | Kristian Anderson DO | PCP | | + +------+ + Reason for Visit + + + | Reason | Comments | + + + | Pre-operative | Low anterior resection, posterior vaginectomy, intraop radiation | | evaluation | (Intrabeam) on 06/30/17 | + + + Encounter Details +--------+---------+ + + + | Date | Type | Department | Care Team | Description | +--------+---------+ + + + | 06/13/ | Office | Preoperative | Zeny Riley | Pre-op exam (Primary | | 2017 | Visit | Medicine Clinic at | R, INTERIOR DECORATOR [address] | Dx); Rectal cancer | | | | [facility] 4th Floor [address] | ([facility] [place] [facility]); Former | | | | [address] | [place], [place] | smoker; Anxiety and | | | | Mailcode: [facility] | [address] | depression; Other | | | | [facility] | [phone] | chronic pain; | | | | and Healing, | | Hypertension, | | | | Building 1[address]4th Floor | | unspecified type; | | | | [place], [place] | | Diabetes mellitus | | | | [address] | | screening | | | | [phone] | | | +--------+---------+ + + + Anesthesia Record + + + + + | Procedure Name | Responsible | Anesthesia Start | Anesthesia Stop Time | | | Anesthesiologist | Time | | + + + + + | LOW ANTERIOR | Gerry Mendez, | 06/30/17720 | 06/30/17 1735 | | RESECTION, POSTERIOR | MD | | | | VAGINECTOMY, | | | | | ILEOSTOMY, POSSIBLE | | | | | ABDOMINOPERINEAL | | | | | RESECTION Path: | | | | | Stanx2 FSx3 Freshx1 | | | | | (N/A Fidel) | | | | + + + + + +----+---+ + + | Da | T | Event | Comment | | te | i | | | | | m | | | | | e | | | +----+---+ + + | 12 | 0 | Eq Check | Anesthesia machine checked Equipment verified | | /0 | 6 | | | | 7/ | 5 | | | | 20 | 7 | | | | 17 | | | | +----+---+ + + | | 0 | Pt. Check | Prior to anesthesia start, pt. Identified, examined, chart | | | 7 | | reviewed, PARQ held, anesthetic plan made or approved by | | | 1 | | attending anesthesiologist. NPO status confirmed as appropriate | | | 2 | | for procedure Preoperative evaluation: unchanged | +----+---+ + + | | 0 | Epidural | | | | 7 | Start | | | | 2 | | | | | 0 | | | +----+---+ + + | | 0 | Preprocedur | Pt ID confirmed, informed consent obtained, insertion site | | | 7 | e Checklist | marked, equipment available | | | 2 | | | | | 0 | | | +----+---+ + + | | 0 | Vitals | Monitors applied Vital signs checked Patient ready for anesthesia | | | 7 | Checked | | | | 2 | | | | | 0 | | | +----+---+ + + | | 0 | Eq Check | Anesthesia machine checked Equipment verified | | | 7 | | | | | 2 | | | | | 1 | | | +----+---+ + + | | 0 | An Start | | | | 7 | | | | | 2 | | | | | 1 | | | +----+---+ + + | | 0 | An Start | | | | 8 | Data | | | | 0 | | | | | 3 | | | +----+---+ + + | | 0 | Vitals | Monitors applied Vital signs checked Patient ready for anesthesia | | | 8 | Checked | | | | 0 | | | | | 7 | | | +----+---+ + + | | 0 | ETT | | | | 8 | | | | | 1 | | | | | 0 | | | +----+---+ + + | | 0 | Ready | | | | 8 | | | | | 1 | | | | | 3 | | | +----+---+ + + | | 0 | Abx | | | | 8 | Administere | | | | 1 | d | | | | 6 | | | +----+---+ + + | | 0 | Incision | Start ureter stent placement | | | 8 | | | | | 2 | | | | | 8 | | | +----+---+ + + | | 0 | Quick Note | Urology procedure complete. | | | 8 | | | | | 4 | | | | | 0 | | | +----+---+ + + | | 0 | Quick Note | Incision for abdominal procedure. | | | 9 | | | | | 1 | | | | | 2 | | | +----+---+ + + | | 1 | Quick Note | BG - 145 | | | 0 | | | | | 1 | | | | | 8 | | | +----+---+ + + | | 1 | Quick Note | BG - 157 | | | 4 | | | | | 3 | | | | | 1 | | | +----+---+ + + | | 1 | Surgery end | | | | 7 | | | | | 0 | | | | | 8 | | | +----+---+ + + | | 1 | An Extubate | Neuromuscular function Intact. Pharynx suctioned. Patient obeys | | | 7 | | commands. Adequate pulmonary mechanics. | | | 1 | | | | | 1 | | | +----+---+ + + | | 1 | an stop | | | | 7 | data | | | | 1 | | | | | 2 | | | +----+---+ + + | | 1 | PACU Rpt | | | | 7 | Given | | | | 2 | | | | | 3 | | | +----+---+ + + | | 1 | PACU Rpt | | | | 7 | Given | | | | 2 | | | | | 3 | | | +----+---+ + + | | 1 | Anesthesia | | | | 7 | End | | | | 3 | | | | | 5 | | | +----+---+ + + +------+ | Meds | +------+ + + + No medications | on file. | + + + + + | No agents on file. | + + + + | No blood administrations on file. | + + +--------+ + + + | Type | Details | Placement | Removal | +--------+ + + + | Port/P | Right; Chest portacath; Single; | 06/30/17 0726 by | | | yoselinca | No | | | | th | | | | +--------+ + + + | Incisi | 06/30/17; perirectal | 06/30/17 0000 by | | | on | | Lynda Tompkins RN | | +--------+ + + + | Incisi | 06/30/17; 0943; Anterior, | 06/30/17 0943 by | | | on | Midline; abdomen | Nargis Rogers RN | | +--------+ + + + | Ostomy | 06/30/17; MD Mariella; Ileostomy; LLQ; | 06/30/17 0000 by | 07/05/172231 by | | | 07/05/17; 2231 | Jessica Sullivan RN | Discontinued After | | | | | Discharge | +--------+ + + + | Drain | 06/30/17; MD Mariella; Albert (19fr); | 06/30/17 0000 by | 07/05/17 1130 by | | | Right; abdomen; 07/05/17; 1130; | Jessica Sullivan RN | Zeny Dunn RN | | | (removed by [facility]) | | | +--------+ + + + | Drain | 06/30/17; MD Mariella; Meri; Left; | 06/30/17 0000 by | 07/05/17 1612 by | | | Lower, Lateral; abdomen; | Jessica Sullivan RN | Zeny Dunn RN | | | 07/05/17; 161; (removed by | | | | | [facility] team) | | | +--------+ + + + | Epidur | 06/30/17; Lumbar; 07/04/17; 0820; | 06/30/17 0000 by | 07/04/17 0820 by | | al | (pulled out when getting out of | Selena Lemus RN | Zeny Dunn RN | | | bed. pain service paged) | | | +--------+ + + + | Periph | 06/30/17; 0816; Mik Ortiz; | 06/30/17 0816 by | 07/02/17 1217 by | | eral | Left; Wrist; 18 g; Positive; | La Nena Domínguez, | Jannette Pitts RN | | IV | 07/02/17; 1217 | TALENT ASSOCIATE | | +--------+ + + + | Urethr | 06/30/17; 0830; Ana María ALICIA ; 1; | 06/30/17 0830 by | 07/04/17 1605 by | | milton | Stefano; 16 Fr.; 10 mL; 07/04/17; | Nargis Rogers RN | Asia Foy RN | | Kerline | 1605 | | | | er | | | | +--------+ + + + documented in this encounter Social History + +-------+ +--------+ + | [...] + + + | Blood Pressure | 132/72 | 06/13/2017 4:40 PM | | | | | PST | | + + + + + | Pulse | 84 | 06/13/2017 4:40 PM | | | | | PST | | + + + + + | Temperature | 37 C (98.6 F) | 06/13/2017 4:40 PM | | | | | PST | | + + + + + | Respiratory Rate | 12 | 06/13/2017 4:40 PM | | | | | PST | | + + + + + | Oxygen Saturation | 100% | 06/13/2017 4:40 PM | | | | | PST | | + + + + + | Inhaled Oxygen | - | - | | | Concentration | | | | + + + + + | Weight | 76.7 kg (169 lb) | 06/13/2017 4:40 PM | | | | | PST | | + + + + + | Height | 160 cm (5' 3") | 06/13/2017 4:40 PM | neck 36 cm | | | | PST | | + + + + + | Body Mass Index | 29.94 | 06/13/2017 4:40 PM | | | | | PST | | + + + + + documented in this encounter Patient Instructions Patient Instructions Zeny Riley NP - 06/13/2017 4:35 PM PST PREOPERATIVE INSTRUCTIONS Please consider having a flu shot, if possible, before surgery Empty stomach before surgery On the day BEFORE your surgery, drink plenty of fluids and stay well hydrated NOTHING to eat or drink after midnight the night before surgery. This includes water, coffee, candy, mints, gum. Medications Instructions On the evening before your surgery, take ALL your usual evening medications On the morning of surgery TAKE the following medications with a sip of water: wellbutrin Potassium On the morning of surgery DO NOT TAKE the following medications: Vitamins and supplements Unless otherwise directed by your surgeon, do not take any Aspirin, fish oil supplements , vitamin E or non-steroidal anti-inflammatory (NSAIDs i.e. Advil, Aleve, Ibuprofen) or herb al supplements 7-14 days prior to your surgery. These drugs may interfere with normal blood clotting and may cause excessive bleeding and bruising during or after the surgery. If you need a pain medication for general purposes, use Tylenol as directed. OK to take it even on the morning of surgery, if needed. If you are in doubt about any medications that you are taking, please contact our office . Skin preparation to help avoid surgical site infections HIBICLENS GUIDE TO GENERAL SKIN CLEANSING AT HOME BEFORE SURGERY Before you bathe or shower: ? Read the instructions given to you by your healthcare practitioner, and begin your genera l skin cleansing protocol as directed. ? Carefully read all directions on the product label. ? Hibiclens is not to be used on the head or face, keep out of the eyes, ears and mouth. ? Hibiclens is not to be used in the genital area. ? Hibiclens should not be used if you are allergic to chlorhexidine gluconate or any other ingredients in this preparation. *See Hibiclens label for full product information and precautions. When you bathe or shower the night before your surgery: ? If you plan to wash your hair, do so with your regular shampoo. Then rinse hair and body thoroughly to remove any shampoo residue. ? Wash your face with your regular soap or water only. ? Thoroughly rinse your body with warm water from neck down. ? Use Hibiclens as you would any other liquid soap. Please do not put the Hibiclens on a wa sh cloth, apply directly to the skin and wash gently. Apply the minimum amount of Hibiclens necessary to cover the skin. Leave the Hibiclens on your skin for 1 minute, then rinse off. ? Rinse thoroughly with warm water. ? Do not use your regular soap after applying and rinsing Hibiclens. When using Hibiclens for a second day in a row (morning of surgery, as soon as you wake up) : ? Shower/bathe again using Hibiclens in the same method as described above. ? Do not apply any lotions, deodorants, powders or perfumes to the body areas that have been cleaned with Hibiclens. Other Important Guidelines ? Do not shave the surgical area Do not smoke, drink alcohol or use recreational drugs for 24 hours before your surgery Watch for any change in your health condition. Let your surgeon know right away if you do not feel well. ? Do not wear makeup, perfume, lotions, deodorant, powder or hairspray. Do not wear any jewelry to the hospital. Wear loose, comfortable clothing. Leave all your valuables at home. Allow enough travel time so you re not late for your check in for surgery. Please remember to brush your teeth the night before and the morning of your procedure. Preventing post op complications while you are in the hospital Use an incentive spirometer or peep breathe to keep your lungs working properly an d to help prevent respiratory complications. It helps you take long, deep breaths. Use it at least once every hour while you are awake. Leg and feet exercises will maintain good circulation and help prevent blood clots in yo ur legs. Sometimes your doctor will order sequential air compression stockings. Compressed air helps the circulation in your legs. Walking and moving will help stimulate normal circulation and deep breathing. After you r surgery, your nurse may ask you to sit, stand or walk. Surgery check-in location: Admitting - [facility], ninth floor [facility] Surgery Check in Time: The Preoperative Medicine Clinic is not in the position to give you accurate information regarding surgical check in time. We refer you back to your surgical office regarding this important information. Going Home Your surgical team will decide when you are medically ready to go home. If you stayed in the hospital after surgery, please arrange for your ride to come for yo u around 9AM on the day your doctor says you can go home. If you have questions or concerns after you go home, call your doctor s office. If it is after office hours, call the [facility] cooker operator at [phone] and ask them to page him or h er. documented in this encounter Progress Notes Perez Reich MA - 06/13/2017 4:35 PM PSTVenipuncture performed in clinic, blood velia ple obtained from Right antecubital site Electronically signed by Perez Reich MA at 1 08/14/2016 2:04 PM PSTErcoleman, Zeny Padilla NP - 06/13/2017 4:35 PM PSTFormatting of this not e might be different from the original. PREOPERATIVE CONSULT NOTE Author: Zeny Riley NP Referring Physician: Ailyn Wolff MD Primary Care Provider: Kristian Anderson DO Reason for Consult: Preoperative evaluation and risk assessment Proposed Procedure/Date: Low anterior resection, posterior vaginectomy, intraop radiation ( Intrabeam) on 06/30/17 HISTORY OF PRESENT ILLNESS: Jenn Parada is a 56 y.o. female here for preoperative e valuation of medical problems in anticipation of the above procedure. Pt has dx of rectal c ancer. Symptoms related to the diagnosis: intermittent rectal bleeding, which has been pres ent since about Jun 2014, then presented to outside hospital ED on 07/19/2016 with rectal ur gency and profuse rectal bleeding. Underwent surgery at that time and then had FOLFOX and ra diation in , then more FOLFOX (last 05/02/2017). Now plan for above procedure. Pertinent medical problems discussed during this visit: Former smoker - 1.5 ppd x 40 years, quit about 1 year ago. Anxiety/depression - stable on SSRI Chronic low back/left LQ pain - takes Mccarley 5-325, 1-2 tabs/day Bone spurs in neck - per pt. I am not able to locate imaging. Reports occas radiculopath y, which has improved since finishing chemo. HTN - controlled off meds. Of note, pt had cardiac consult for pre-op / pre-chemo/RT evaluation. Had TTE and dobutamin e stress echo done at that time. Nortmal echo. Low risk stress test with episode of paroxysm al afib during infusion. No further intervention needed. Perioperative cardiac risks: CAD no CHF no CVA no CKD with creatinine >2 no DM treated with insulin no Functional Capacity: Moderate (4-10 mets) Prior complications of anesthesia: none ROS: Pulmonary: Former smoker - 1.5 x 40 yrs, quit > 1 year ago no cough no sputum no URI no shortness of breath Pt. Has no asthma no COPD No dx of sleep apnea Risks factors for sleep apnea: Age>50 Pt at low risk of MARLENE Cardiovascular: About 4 METS; reports fatigue while in chemo, but improving. Mild ROBLEDO from deconditioning Denies any chest pain or pressure, sob, robledo, orthopnea, pnd, peripheral edema, palpitations or dizziness/syncope. +heart murmur - no evidence of significant valve abnormalities on TTE () +stress echo (09/2016) - negative for ischemia Functional Capacity: Moderate no CAD no CHF no hypertension no valvular problems/murmurs no pacemaker GI/Hepatic: +rectal cancer S/p colostomy and abd drain (06/2016) no GI Bleed no GERD No liver disease no hepatitis no OTHER GI : Recent UTI - treated and resolved. no renal failure no dialysis Endo: no Diabetes: Neurological: +bone spurs in neck Reports some shooting pain and numbness to extremities with certain movements during chemo, not a problem currently +tingling in fingers and toes Sign/Sx Treatments: Treated w/medications no seizures no HX CORTICOSTEROID psychiatric problem depression and anxiety no dementia pain (low back pain and left LQ pain -- (d/t fluid and anterior hernia) - 1-2 tabs Mccarley as needed daily) Chron ic pain > 6 months Chronic pain related to scheduled surgery Current Pain Level: Current pain level: 0 MS: +cervical DDD, bone spurs no arthritis Heme/Onc: Pt. has: no active bleeding no Bleeding diathesis / thrombotic bleeding Previous Transfusions: transfusion hx (Jun 2016) Hx:Yes no other heme, Malignancy: cancer, Location : Colon, Metastasis: Unknown Skin: No open wounds or sores (+drain and ostomy) No hx MRSA/VRE/Active skin infection Current medications reviewed / updated Current Outpatient Prescriptions Medication Sig ASCORBIC ACID [...] Take 20 mEq by mouth once daily. Level of confidence in medication reconciliation accuracy: Medium Allergies reviewed / updated Allergies Allergen Reactions Ferrous Gluconate Nausea and Flushing Propoxyphene Nausea and Vomiting Pt reports she puked with "Darvocet" Past medical history reviewed / updated Past Medical History: Diagnosis Date Elevated lipids Heartburn HTN (hypertension) Lichen sclerosus Nephrolithiasis Past surgery reviewed / updated Past Surgical History Procedure Laterality Date D&c [...] 2 facial cyst Repeat anal biopsy 10/27/2016 Family history reviewed / updated Family History Problem Relation Cancer Mother breast Hypertension Mother Heart Attack Father from [place] at age 52 Diabetes Father Heart Attack Brother Coronary Artery Disease Brother NATHAN x 4 Social history reviewed / updated Social History Substance Use Topics Smoking status: Former Smoker Packs/day: 1.50 Years: 41.00 Quit date: 07/19/2016 Smokeless tobacco: Former User Alcohol use No PHYSICAL EXAM: Last Vitals: BP 132/72 | Pulse 84 | Temp (Src) 37 C (98.6 F) (Oral) | RR 12 | Ht 1.6 m (5' 3") | Wt 76.7 kg (169 lb) | SpO2 100% | BMI 29.94 kg/(m^2) Body mass index is 29.94 kg/m . Physical Exam General: Patients general appearance: Healthy, Alert, No distress, Cooperative and Older th an stated age Head & Neck/Airway: NC/AT; PERRL; EOMI; nl appearing ears and nose. Neck ROM: full TM Distance:Normal Dentition: loose teeth and chipped teeth Dentition Comments: #6 loose; m ultiple broken teeth Mallampati: II Mouth Opening: > = 3 cm C-Spine: normal Neck Anatomy: N ormal Jaw Protrusion: Normal, lower incisors can protrude past upper incisors Lung Exam: No respiratory distress. Normal breathing pattern. breath sounds normal Cardiac: 2/6 PRETTY throughout precordium, loudest at USB Rhythm: regular Rate: normal Abdominal: General Findings: no abdominal tenderness and Nondistended Musculoskeletal: Findings: tone normal Neuro/Psych: No focal neuro deficits; Alert and appropriate; nl affect. alert Findings: Mo tor 5/5 strength globally with normal tone, No tremor, Alert, oriented to person, place, reta e, Normal affect and Normal gait and station Integument: - lesion, rash and open wounds (+drain and ostomy) Color: pink Turgor: turgor normal Implants: None, Comments: Denies any personal or family hx of anesthesia complications LABS & DATA REVIEWED/ORDERED Lab Results Component Value Date WBC 4.59 06/13/2017 HB 10.7 06/13/2017 HCT 34.5 06/13/2017 PLT 345 06/13/2017 MCV 91.3 06/13/2017 RDW 54.5 06/13/2017 Lab Results Component Value Date NA 141 06/13/2017 K 3.9 06/13/2017 CL 107 06/13/2017 BICARB 27 06/13/2017 BUN 13 06/13/2017 CR 0.55 06/13/2017 GLU 74 06/13/2017 CA 8.8 06/13/2017 AST 31 06/13/2017 ALT 35 06/13/2017 AP 117 06/13/2017 TBILI 0.2 06/13/2017 TP 6.5 06/13/2017 ALB 2.9 06/13/2017 Lab Results Component Value Date INRPT 0.95 06/13/2017 Lab Results Component Value Date ABO O 06/13/2017 ABO O 06/13/2017 RH Positive 06/13/2017 RH Positive 06/13/2017 Lab Results Component Value Date A1C 5.5 06/13/2017 EKG: personally reviewed, Results for orders placed or performed in visit on 06/13/17 12 LEAD ECG Result Value Ref Range VENTRICULAR RATE 82 bpm ATRIAL RATE 82 ms P-R INTERVAL 139 ms P AXIS 39 deg QRS DURATION 96 ms QT 380 ms QTCB 444 ms R AXIS -21 deg T AXIS 46 deg ECG IMPRESSION Sinus rhythm ECG IMPRESSION Low voltage, precordial leads- OTHERWISE NORMAL ECG - ECG IMPRESSION Electronically signed by: ROHIT COCHRAN 06-13-2017 17:14:13 Outside records reviewed from CareEverywhere and "media" tab. Findings pertinent to this pr eoperative visit are as follows: Dobutamine Stress Echocardiographic Report (10/06/2016, cards tab) + + Final Impressions: 1. Abnormal dobutamine stress due to chest pain and rhythm disturbance in recovery. Target HR was achieved. 2. There is chest pain reported with infusion. 3. The blood pressure response was flat. 4. EKG portion of stress test demonstrates downsloping ST depression in multiple leads; however the degree of ST depression did not meet diagnostic criteria. There was atrial fibrillation seen in recovery. 5. At rest there is normal left ventricular systolic function. 6. Echo negative for ischemia. Transthoracic Echocardiographic Report (10/06/2016, cards tab) + + Final Impressions: 1. The left ventricular cavity size is normal. 2. The LV ejection fraction is normal. 3. Right ventricular size, thickness and function are normal. 4. No significant valvular abnormalities seen. 5. The global longitudinal strain is -21.2 % and the LVEF is 66.4 %. 6. There are no prior exams available for comparison. Perioperative risk calculators 2014 ACC/AHA Perioperative Cardiac Risk Stratification (assumes non-emergent, non-cardiac p rocedure) Are active cardiac conditions present? No Calculate the combined surgical and patient-specific risk: RCRI risk calculator (one point for each "yes" answer) A. Elevated risk surgery?: yes B. Ischemic heart disease: no C. Compensated / prior heart failure: no D. Diabetes mellitus (treated with insulin): no E. Renal insufficiency (Cr>2): no F. Cerebrovascular disease: no Risk of MACE 0 risk factors - 0.4% 1 risk factor - 0.9% 2 risk factors - 6.6% 3 risk factors - 11% The risk of major adverse cardiac event (MACE) is: less than 1%. No further risk stratific ation for coronary disease is indicated. Estimated ASA class 2 Other perioperative risk calculators: Not Applicable ASSESSMENT and RECOMMENDATIONS: Perioperative risk assessment: Jenn Parada is a 56 y.o. female with diagnosis of rectal cancer, scheduled for Low anterior resection, posterior vaginectomy, intraop radia tion (Intrabeam). Based on the clinical information obtained and reviewed during this visit , the overall assessment is that the patient is having elective major surgery with identifie d risk factors. Medication management recommendations: The patient was advised to continue all usual medications except as noted in Patient Instructions (After Visit Summary given to pt) Pre-procedure antibiotic recommendation for colon surgery and abdominal hysterectomy: Er tapenem 1 gm IV infused over 1 hr (No PCN allergy) Former smoker - 1.5 ppd x 40 years, quit about 1 year ago. Anxiety/depression - stable on SSRI. Continue as scheduled. Chronic low back/left LQ pain - takes Mccarley 5-325, 1-2 tabs/day. Continue as needed. Bone spurs in neck - per pt. I am not able to locate imaging. Reports occas radiculopath y, which has improved since finishing chemo. HTN - controlled off meds. Continue to follow as needed. The patient is stable / optimized for surgery. Additional testing/optimization is not nee ded. Thank you for the opportunity to contribute to this patient's care. Zeny Riley NP [facility] PREOPER[facility]IN[facility] AT [facility] 4TH FLOOR [address] [place] [address] I counseled the pt regarding perioperative risk (cardiac/bleeding/ DVT/ respiratory failur e/ infection, etc) and methods to mitigate risk. I advised the patient regarding NPO requir ements, hydration before surgery, showering, general body hygiene. All pre-procedure instru ctions given to the patient (after-visit summary). All of patient's questions were addresse d. The patient verbalized understanding of the instructions given. documented in this encounter Plan of Treatment +--------+---------+ + + + | Date | Type | Specialty | Care Team | Description | +--------+---------+ + + + | 06/18/ | Office | Surgery | Ailyn Wolff MD | | | 2019 | Visit | | [address] | | | | | | [place], | | | | | | [place] [address] | | | | | | [phone] | | | | | | | | +--------+---------+ + + + documented as of this encounter Procedures + +--------+ + + + | Procedure Name | Priori | Date/Time | Associated Diagnosis | Comments | | | ty | | | | + +--------+ + + + | AL COLLECTION VENOUS | Routin | 06/13/2017 | Pre-op exam | | | BLOOD,VENIPUNCTURE | e | 4:57 PM | Rectal cancer (HCC) | | | | | PST | Hypertension, | | | | | | unspecified type | | + +--------+ + + + | 12 LEAD ECG | Routin | 06/13/2017 | Rectal cancer | Results for this | | | e | 4:47 PM | (HCC) Pre-op exam | procedure are in the | | | | PST | Hypertension, | results section. | | | | | unspecified type | | + +--------+ + + + | CBC (HEMOGRAM) ONLY | Routin | 06/13/2017 | Rectal cancer | Results for this | | | e | 4:44 PM | (HCC) Pre-op exam | procedure are in the | | | | PST | Hypertension, | results section. | | | | | unspecified type | | + +--------+ + + + | CONFIRMATORY ABO/RH | Routin | 06/13/2017 | Rectal cancer | Results for this | | | e | 4:44 PM | (HCC) Pre-op exam | procedure are in the | | | | PST | Hypertension, | results section. | | | | | unspecified type | | + +--------+ + + + | INR | Routin | 06/13/2017 | Rectal cancer | Results for this | | | e | 4:44 PM | (HCC) Pre-op exam | procedure are in the | | | | PST | Hypertension, | results section. | | | | | unspecified type | | + +--------+ + + + | COMPLETE METABOLIC | Routin | 06/13/2017 | Rectal cancer | Results for this | | SET | e | 4:44 PM | (HCC) Pre-op exam | procedure are in the | | (NA,K,CL,CO2,BUN,CRE | | PST | Hypertension, | results section. | | AT,GLUC,CA,AST,ALT,B | | | unspecified type | | | TAM TOTAL,ALK | | | | | | PHOS,ALB,PROT TOTAL) | | | | | + +--------+ + + + | CBC ONLY | Routin | 06/13/2017 | Rectal cancer | Results for this | | | e | 4:44 PM | (HCC) Pre-op exam | procedure are in the | | | | PST | Hypertension, | results section. | | | | | unspecified type | | + +--------+ + + + | ANTIBODY SCREEN | Routin | 06/13/2017 | Rectal cancer | Results for this | | | e | 4:44 PM | (HCC) Pre-op exam | procedure are in the | | | | PST | Hypertension, | results section. | | | | | unspecified type | | + +--------+ + + + | TYPE AND SCREEN | Routin | 06/13/2017 | Rectal cancer | Results for this | | | e | 4:44 PM | (HCC) Pre-op exam | procedure are in the | | | | PST | Hypertension, | results section. | | | | | unspecified type | | + +--------+ + + + | ABO & RH TYPE | Routin | 06/13/2017 | Rectal cancer | Results for this | | | e | 4:44 PM | (HCC) Pre-op exam | procedure are in the | | | | PST | Hypertension, | results section. | | | | | unspecified type | | + +--------+ + + + | HEMOGLOBIN A1C, | Routin | 06/13/2017 | Pre-op exam | Results for this | | BLOOD | e | 4:44 PM | Rectal cancer (HCC) | procedure are in the | | | | PST | Hypertension, | results section. | | | | | unspecified type | | | | | | Diabetes mellitus | | | | | | screening | | + +--------+ + + + documented in this encounter Results 12 LEAD ECG (06/13/2017 4:47 PM PST) + + + + + + | Component | Value | Ref Range | Performed | Pathologist | | | | | At | Signature | + + + + + + | VENTRICULAR | 82 | bpm | [facility] | | | RATE | | | OF | | | | | | CARDIOLOGY | | + + + + + + | ATRIAL RATE | 82 | ms | [facility] | | | | | | OF | | | | | | CARDIOLOGY | | + + + + + + | P-R | 139 | ms | [facility] | | | INTERVAL | | | OF | | | | | | CARDIOLOGY | | + + + + + + | P AXIS | 39 | deg | [facility] | | | | | | OF | | | | | | CARDIOLOGY | | + + + + + + | QRS | 96 | ms | [facility] | | | DURATION | | | OF | | | | | | CARDIOLOGY | | + + + + + + | QT | 380 | ms | [facility] | | | | | | OF | | | | | | CARDIOLOGY | | + + + + + + | QTCB | 444 | ms | [facility] | | | | | | OF | | | | | | CARDIOLOGY | | + + + + + + | R AXIS | -21 | deg | [facility] | | | | | | OF | | | | | | CARDIOLOGY | | + + + + + + | T AXIS | 46 | deg | [facility] | | | | | | OF | | | | | | CARDIOLOGY | | + + + + + + | ECG | Sinus rhythm | | [facility] | | | IMPRESSION | | | OF | | | | | | CARDIOLOGY | | + + + + + + | ECG | Low voltage, precordial | | [facility] | | | IMPRESSION | leads- OTHERWISE NORMAL | | OF | | | | ECG - | | CARDIOLOGY | | + + + + + + | ECG | Electronically signed | | [facility] | | | IMPRESSION | by: ROHIT COCHRAN | | OF | | | | 06-13-2017 17:14:13 | | CARDIOLOGY | | + + + + + [...] + + + + + | [facility] | [address] | [place], [place] | | | CARDIOLOGY | [address] | [address] | | + + + + + CONFIRMATORY ABO/RH (06/13/2017 4:44 PM PST) + + + + + + | Component | Value | Ref Range | Performed | Pathologist | | | | | At | Signature | + + + + + + | ABO Group | O | | [facility] | | | | | | [facility] | | | | | | SERVICES, | | | | | | TRANSFUSION | | | | | | MEDICINE | | + + + + + + | Rh Type | Positive | | [facility] | | | | | | LABORAT[facility] | | | | | | SERVICES, | | | | | | TRANSFUSION | | | | | | MEDICINE | | + + + + + + + + | Specimen | + + | Blood - Blood | | (substance) | + + + + + + + | Performing | Address | City/State/Zipcode | Phone Number | | Organization | | | | + + + + + | [facility] | [address] | [place] [address] | | | SERVICES, | [address] | | | | TRANSFUSION MEDICINE | | | | + + + + + CBC (HEMOGRAM) ONLY (06/13/2017 4:44 PM PST) + + + + + + | Component | Value | Ref Range | Performed | Pathologist | | | | | At | Signature | + + + + + + | WHITE CELL | 4.59 | 3.50 - 10.80 | [facility] | | | COUNT | | K/cu mm | LABORATORY | | | | | | SERVICES, | | | | | | CORE | | + + + + + + | RED CELL | 3.78 (L) | 4.00 - 5.20 | [facility] | | | COUNT | | M/cu mm | LABORATORY | | | | | | SERVICES, | | | | | | CORE | | + + + + + + | HEMOGLOBIN | 10.7 (L) | 12.0 - 16.0 | [facility] | | | | | g/dL | LABORATORY | | | | | | SERVICES, | | | | | | CORE | | + + + + + + | HEMATOCRIT | 34.5 (L) | 36.0 - 46.0 % | [facility] | | | | | | LABORATORY | | | | | | SERVICES, | | | | | | CORE | | + + + + + + | MCV | 91.3 | 80.0 - 96.0 fL | [facility] | | | | | | LABORATORY | | | | | | SERVICES, | | | | | | CORE | | + + + + + + | MCHC | 31.0 | 33.0 - 35.5 | [facility] | | | | | g/dL | LABORATORY | | | | | | SERVICES, | | | | | | CORE | | + + + + + + | RDW SD | 54.5 (H) | 35.1 - 46.3 fL | [facility] | | | | | | LABORATORY | | | | | | SERVICES, | | | | | | CORE | | + + + + + + | PLATELET | 345 | 150 - 400 K/cu | [facility] | | | COUNT | | mm | LABORATORY | | | | | | SERVICES, | | | | | | CORE | | + + + + + + | MPV | 8.6 (L) | 9.7 - 12.3 fL | [...] [facility] | [address] | [place] [address] | | | SERVICES, CORE | [address] | | | + + + + + HEMOGLOBIN A1C, BLOOD (06/13/2017 4:44 PM PST) + + + + + + | Component | Value | Ref Range | Performed | Pathologist | | | | | At | Signature | + + + + + + | HEMOGLOBIN | 5.5Comment: Hgb A1C | <5.7 % | [facility] | | | A1C | Interpretive | | LABORATORY | | | | Information: | | SERVICES, | | | | <5.7% - Normal | | SPECIAL IMM | | | | 5.7-6.4% - Consistent | | + [facility] | | | | with pre-diabetes | | | | | | >6.4% - Consistent | | | | | | with diabetes | | | | | | | | | | + + + + + + + + | Specimen | + + | Blood - Blood | | (substance) | + + + + + | Narrative | Performed At | + + + | Alternate forms of testing such as fructosamine should be | [facility] | | considered for monitoring fine grade operator glycemic control in patients with: | LABORATORY | | Increased red cell turnover, certain hemoglobinopathies (e.g., HbS, | SERVICES, | | HbE, HbC and thalassemia syndromes), anemias, blood loss, chronic | SPECIAL IMM + | | liver disease and hemochromatosis (artefactually low HbA1c); iron | [facility] | | deficiency anemia (artefactually high HbA1c due to enhanced glycation | | | of hemoglobin). | | + + + + + + + + | Performing | Address | City/State/Zipcode | Phone Number | | Organization | | | | + + + + + | [facility] | [address] | [place] [address] | | | SERVICES, SPECIAL | [address] | | | | IMM + [facility] | | | | + + + + + ANTIBODY SCREEN (06/13/2017 4:44 PM PST) + + + + + + | Component | Value | Ref Range | Performed | Pathologist | | | | | At | Signature | + + + + + + | Antibody | Negative | | [facility] | | | Screen | | | LABORATORY | | | | | | SERVICES, | | | | | | TRANSFUSION | | | | | | MEDICINE | | + + + + + + + + | Specimen | + + | Blood - Blood | | (substance) | + + + + + + + | Performing | Address | City/State/Zipcode | Phone Number | | Organization | | | | + + + + + | [facility] | [address] | [place] [address] | | | SERVICES, | [address] | | | | TRANSFUSION MEDICINE | | | | + + + + + ABO & RH TYPE (06/13/2017 4:44 PM PST) + + + + + + | Component | Value | Ref Range | Performed | Pathologist | | | | | At | Signature | + + + + + + | ABO Group | O | | [facility] | | | | | | LABORATORY | | | | | | SERVICES, | | | | | | TRANSFUSION | | | | | | MEDICINE | | + + + + + + | Rh Type | Positive | | [facility] | | | | | | LABORATORY | | | | | | SERVICES, | | | | | | TRANSFUSION | | | | | | MEDICINE | | + + + + + + + + | Specimen | + + | Blood - Blood | | (substance) | + + + + + + + | Performing | Address | City/State/Zipcode | Phone Number | | Organization | | | | + + + + + | [facility] | [address] | [place] [address] | | | SERVICES, | [address] | | | | TRANSFUSION MEDICINE | | | | + + + + + INR (06/13/2017 4:44 PM PST) + +-------+ + + + | Component | Value | Ref Range | Performed | Pathologist | | | | | At | Signature | + +-------+ + + + | INR | 0.95 | 0.90 - 1.20 INR | [facility] | | | | | | LABORATORY | | | | | | SERVICES, | | | | | | CORE | | + +-------+ + + + + + | Specimen | + + | Blood - Blood | | (substance) | + + + + + | Narrative | Performed At | + + + | INR Therapeutic ranges for full anticoagulation: INR for | [facility] | | Venous Thromboembolism (2.0 - 3.0) INR INR for | LABORATORY | | most patients with mech. valves (2.5 - 3.5) INR | [facility] | + + + + + + + + | Performing | Address | City/State/Zipcode | Phone Number | | Organization | | | | + + + + + | [facility] | [address] | [place] [address] | | | CAR TELLO | [address] | | | + + + + + COMPLETE METABOLIC SET (NA,K,CL,CO2,BUN,CREAT,GLUC,CA,AST,ALT,BILI TOTAL,ALK PHOS,ALB,PROT TOTAL) (06/13/2017 4:44 PM PST) + + + + + + | Component | Value | Ref Range | Performed | Pathologist | | | | | At | Signature | + + + + + + | GLUCOSE, | 74 | 70 - 99 mg/dL | [facility] | | | PLASMA | | | LABORATORY | | | (LAB) | | | SERVICES, | | | | | | CORE | | + + + + + + | BUN, PLASMA | 13 | 6 - 20 mg/dL | [facility] | | | (LAB) | | | LABORATORY | | | | | | SERVICES, | | | | | | CORE | | + + + + + + | CREATININE | 0.55 (L) | 0.60 - 1.10 | [facility] | | | PLASMA | | mg/dL | LABORATORY | | | (LAB) | | | SERVICES, | | | | | | CORE | | + + + + + + | EGFR | >60 | >60 mL/min | [facility] | | | - | | | LABORATORY | | | CENTRAL AFRICAN | | | SERVICES, | | | | | | CORE | | + + + + + + | EGFR NON | >60 | >60 mL/min | [facility] | | | -BIRD | | | LABORATORY | | | RICAN | | | SERVICES, | | | | | | CORE | | + + + + + + | SODIUM, | 141 | 136 - 145 | [facility] | | | PLASMA | | mmol/L | LABORATORY | | | (LAB) | | | SERVICES, | | | | | | CORE | | + + + + + + | POTASSIUM, | 3.9 | 3.4 - 5.0 | [facility] | | | PLASMA | | mmol/L | LABORATORY | | | (LAB) | | | SERVICES, | | | | | | CORE | | + + + + + + | CHLORIDE, | 107 | 97 - 108 mmol/L | [facility] | | | PLASMA | | | LABORATORY | | | (LAB) | | | SERVICES, | | | | | | CORE | | + + + + + + | TOTAL CO2, | 27 | 21 - 32 mmol/L | [facility] | | | PLASMA | | | LABORATORY | | | (LAB) | | | SERVICES, | | | | | | CORE | | + + + + + + | CALCIUM, | 8.8 | 8.6 - 10.2 | [facility] | | | PLASMA | | mg/dL | LABORATORY | | | (LAB) | | | SERVICES, | | | | | | CORE | | + + + + + + | CALCIUM(ALB | 9.7 | 8.6 - 10.2 | [facility] | | | CORRECTED) | | mg/dL | LABORATORY | | | | | | SERVICES, | | | | | | CORE | | + + + + + + | BILIRUBIN | 0.2 (L) | 0.3 - 1.2 mg/dL | [facility] | | | TOTAL | | | LABORATORY | | | | | | SERVICES, | | | | | | CORE | | + + + + + + | TOTAL | 6.5 | 6.4 - 8.2 g/dL | [facility] | | | PROTEIN, | | | LABORATORY | | | PLASMA | | | SERVICES, | | | (LAB) | | | CORE | | + + + + + + | ALBUMIN, | 2.9 (L) | 3.5 - 4.7 g/dL | [facility] | | | PLASMA | | | LABORATORY | | | (LAB) | | | SERVICES, | | | | | | CORE | | + + + + + + | ALK PHOS | 117 (H) | 42 - 98 U/L | [facility] | | | | | | LABORATORY | | | | | | SERVICES, | | | | | | CORE | | + + + + + + | AST(SGOT) | 31 | <=41 U/L | [facility] | | | | | | LABORATORY | | | | | | SERVICES, | | | | | | CORE | | + + + + + + | ALT (SGPT) | 35 | <=60 U/L | [facility] | | | | | | LABORATORY | | | | | | SERVICES, | | | | | | CORE | | + + + + + + | ANION GAP | 7 | mmol/L | [facility] | | | | | | LABORATORY | | | | | | SERVICES, | | | | | | CORE | | + + + + + + | ANION | 9 | 4 - 11 mmol/L | [facility] | | | GAP(ALB | | | LABORATORY | | | CORRECTED) | | | SERVICES, | | | | | | CORE | | + + + + + + | POTASSIUM | No Hemo | | [facility] | | | CMNT | | | LABORATORY | | | | | | SERVICES, | | | | | | CORE | | + + + + + + | BILI T CMNT | No Hemo | | [facility] | | | | | | LABORATORY | | | | | | SERVICES, | | | | | | CORE | | + + + + + + | AST CMNT | No Hemo | | [facility] | | | | | [...] | Adult glucose reference range change effective 7-17. GFR is | [facility] | | estimated [...] + + + + + | [facility] | [address] | [place] [address] | | | SERVICES, CAR | [address] | | | + + + + + documented in this encounter Visit Diagnoses + + | Diagnosis | + + | Pre-op exam - Primary Preoperative examination, unspecified | + + | Rectal cancer (HCC) Malignant neoplasm of rectum | + + | Former smoker Personal history of tobacco use, presenting hazards to health | + + | Anxiety and depression Dysthymic disorder | + + | Other chronic pain | + + | Hypertension, unspecified type | + + | Diabetes mellitus screening Screening for diabetes mellitus | + + documented in this encounter
--- OUTSIDE RECORDS SUMMARY | ~2019-05-24 | XMS | Encounter Summary ---
Demographics + + + | Address | [address] | | | [place] [address] | + + + | Home Phone [...] Team Providers + +------+ + | Care Auctioneer Art Name | Role | Phone | + [...] | | | | CONSULT TO | [place], [place] | Mailcode: | | | | | GI | [phone] | [id number] | | | | | PROCEDURE | Phone: | [place] | | | | | UNIT: | [phone] | [address] | | | | | COLONOSCOPY | Fax: | [place], | | | | | | [phone] | [place] [address] | | | | | | | Phone: | | | | | | | [phone] | | | | | | | Fax: | | | | | | | [phone] | + +--------+ + + + + [...] | | | | CT CHEST, | [place], [place] | | | | | | ABDOMEN AND | [address] | | | | | | PELVIS W IV | Phone: | | | | | | CONTRAST | [phone] | | | | | | | Fax: | | | | | | | [phone] | | +--------+--------+ + + + + [...] | | | | Epic Dept | [address] | | | | | | | [address] | | | | | | | [place] [address] | | | | | | | [place], [place] | | | | | | | [address] | | | | | | | Phone: | | | | | | | [phone] | | | | | | | Fax: | | | | | | | [phone] | +--------+--------+ + + + + Encounter Details +--------+---------+ + + + | Date | Type | Department | Care Team | Description | +--------+---------+ + + + | 05/29/ | Office | [facility] | Ailyn Wolff MD | CA of rectum (HCC) | | 2018 | Visit | [place] [facility] [address] | [address] | (Primary Dx) | | | | [address] | [place], | | | | | Mailcode: [place] | [place] [address] | | | | | for Health and | [phone] | | | | | [facility], [facility] [address] | | | | | | [place], [place] | | | | | | [address] | | | | | | [phone] | | | +--------+---------+ + + + [...] in 06/[address] at [facility] in [place] in June,. I spoke to Marty Thacker. [...] bleeding on 07/19/16 went to the [facility] ED CT abdomen/pelvis with IV contrast (07/20/16) [...] cm from anal verge presented at the [facility] Multidisciplinary GI Oncology Conference on 10/07/16 [...] to Mendoza pouch staple line presented at [facility] Multidisciplinary GI Oncology Conference on 03/10/17. [...] MRI ([facility], 05/17/17) close to pelvic sidewall [facility] Multidisciplinary GI Oncology Conference (06/02/17) Recommendations [...] resection with primary anastomosis, placement of a 19-Macanese Albert drain through the right lower quadrant [...] in 06/[address] at [facility] in [place] in June,. I spoke to Marty Kirstie. [...] resection with primary anastomosis, placement of a 19-Macanese Albert drain through the right lower quadrant [...] Return/Re-evaluation patient, I spent 20 minutes of [id number] time, of which m ore than half [...] | | 2018 | Visit | | [address] | | | | | | [place], | | | | | | [place] [address] | | | | | | [phone] | | | | | | | [...] [facility] | [address] | [place] [address] | | | SERVICES, CORE | [address] | | | + + + + + documented in this encounter Visit Diagnoses + + | Diagnosis | + + | 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
--- OUTSIDE RECORDS SUMMARY | ~2019-05-24 | XMS | Encounter Summary ---
Demographics + + + | Address | [address] | | | [place] [address] | + + + | Home Phone | | + + + | Preferred Language | Unknown | + + + | Marital Status | Single | + + + | Jehovah'S Witness Affiliation | NON | + + + [...] Providers + +------+ + | Care Medical Assembler Name | Role | Phone | + [...] + + + | Closed | | Cardiology | Diagnoses | Narda, | | | | | | | Brittany Gutiérrez, | | | | | | Pre-operativ | [address] | | | | | | e | [address] | | | | | | cardiovascul | [place], | | | | | | ar | [place] | | | | | | examination | [address] | | | | | | Tobacco | Phone: | | | | | | abuse | [phone] | | | | | | Dyspnea, | Fax: | | | | | | unspecified | [phone] | | | | | | type Aortic | | | | | | | systolic | | | | | | | murmur on | | | | | | | examination | | | | | | | Procedures | | | | | | | STRESS | | | | | | | DOBUTAMINE | | | | | | | ECHOCARDIOGR | | | | | | | AM, ADULT | | | +--------+--------+ + + + + Diagnostic Testing (Routine) +--------+--------+ + + + + | Status | Reason | Specialty | Diagnoses / | Referred By | Referred To | | | | | Procedures | Contact | Contact | +--------+--------+ + + + + | Closed | | Cardiology | Diagnoses | Bischof, | | | | | | | Brittany Gutiérrez, | | | | | | Pre-operativ | [address] | | | | | | e | [address] | | | | | | cardiovascul | [place], | | | | | | ar | [place] | | | | | | examination | [address] | | | | | | Tobacco | Phone: | | | | | | abuse | [phone] | | | | | | Dyspnea, | Fax: | | | | | | unspecified | [phone] | | | | | | type Aortic | | | | | | | systolic | | | | | | | murmur on | | | | | | | examination | | | | | | | Procedures | | | | | | | | | | | | | | TRANSTHORACI | | | | | | | C | | | | | | | ECHOCARDIOGR | | | | | | | AM WITH | | | | | | | STRAIN - | | | | | | | CARDIO | | | | | | | MECHANICS, | | | | | | | ADULT | | | +--------+--------+ + + + + Reason for Visit + + + | Reason | Comments | + + + | New Patient Visit | | + + + Consultation (Routine) +--------+--------+ + + + + | Status | Reason | Specialty | Diagnoses / | Referred By | Referred To | | | | | Procedures | Contact | Contact | +--------+--------+ + + + + | Closed | | Cardiology | Diagnoses | Kirstie, | Car General | | | | | | Marty Toledo MD | [address] | | | | | Preoperative | [place] | [address] | | | | | clearance | SURGICAL | Mailcode: | | | | | Procedures | [facility] | [facility] | | | | | CONSULT TO | [address] | for Health | | | | | CARDIOLOGY | [address]VE | and Healing, | | | | | | [place], | [address], | | | | | | [place] [address] | 9 Floor | | | | | | Phone: | [place], [place] | | | | | | [phone] | [address] | | | | | | Fax: | Phone: | | | | | | [phone] | [phone] | | | | | | | Fax: | | | | | | | [phone] | +--------+--------+ + + + + Encounter Details +--------+---------+ + + + | Date | Type | Department | Care Team | Description | +--------+---------+ + + + | 10/06/ | Office | Cardiology General | Bischof, Brittany | Dyspnea, unspecified | | 2017 | Visit | at [facility] [address] | [address], [address] | type (Primary Dx); | | | | [address] Mailcode: | [address] [place], | Pre-operative | | | | [address] [facility] | [place] [address] | cardiovascular | | | | Health and Healing, | [phone] | examination; Tobacco | | | | | | abuse; Aortic | | | | Floor [place], [place] | | systolic murmur on | | | | [address] | | examination | | | | [phone] | | | +--------+---------+ + + + [...] + + + | Blood Pressure | 114/65 | 10/06/2016 7:58 AM | | | | | PDT | | + + + + + | Pulse | 86 | 10/06/2016 7:58 AM | | | | | PDT | | + + + + + | Temperature | 36.9 C (98.4 F) | 10/06/2016 7:58 AM | | | | | PDT | | + + + + + | Respiratory Rate | - | - | | + + + + + | Oxygen Saturation | 98% | 10/06/2016 7:58 AM | | | | | PDT | | + + + + + | Inhaled Oxygen | - | - | | | Concentration | | | | + + + + + | Weight | 64.3 kg (141 lb 12.8 | 10/06/2016 7:58 AM | | | | oz) | PDT | | + + + + + | Height | 160 cm (5' 3") | 10/06/2016 7:58 AM | | | | | PDT | | + + + + + | Body Mass Index | 25.12 | 10/06/2016 7:58 AM | | | | | PDT | | + + + + + documented in this encounter Patient Instructions Patient Instructions Brittany Laboy PA-C - 10/06/2016 7:55 AM PDT1. Schedule echo a nd dobutamine stress echo in [place], Call us back if they cannot get these done before 10/18/16 and we can do the tests at [facility].Electronically signed by WEN Gagnon 10/06/2016 8:38 AM PDT documented in this encounter Progress Notes Brittany Laboy PA-C - 10/06/2016 7:55 AM PDTFormatting of this note might be differ ent from the original. CARDIOLOGY ENCOUNTER NOTE Reason for Visit: This is a scheduled visit for cardiac evaluation and risk assessment. She is alone. History: Per chart review: Paulette Byrnes is a 55 y.o. female with history of tobacco abuse, hypertension and dyspnea on exertion who is referred by Marty Thacker MD for cardia c evaluation and risk assessment for rectal tumer treatment with chemotherapy and radiation first followed by rectal cancer surgery. Today, patient denies history of coronary artery disease; denies history of myocardial infa rction. Patient denies history of congestive heart failure. denies history of DVT/PE Patient reports acid reflux for the last 3-4 years which she treats with eating celery. S he denies irregular heart beat, chest pain, exertional chest pain or pressure, paroxysmal no cturnal dyspnea, lower extremity edema. If she eats salty foods she will get palpitations. She thinks she has sleep apnea. Her dyspnea on exertion has resolved with smoking cessation . She quit on July 19, 2016. Her appetite is low due to her rectal pain. She lost 15 p ounds last year by changing her diet and avoiding salt/junk food. She reports a history of hypertension and hyperlipidemia that she improved with dietary haja nges and weight loss. Her brother has a myocardial infarction and recently had 4 coronary stents. He is 64. Her father of [place] at 52. History of Endocarditis or need for Endocarditis Prophylaxis? no History of Phen-Fen exposure? 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 She can walk up two flights of stair s without stopping. MET ASSESSMENT: 4 METS Past Medical, Family & Social Histories: Medical, Family & Social histories were reviewed and updated in EMR based on conversation w ith the patient, and noteable for the following: (Please see that section of the EMR for ful l details) - all reviewed with patient today. Past Medical History: Diagnosis Date Elevated lipids Heartburn HTN (hypertension) Lichen sclerosus Nephrolithiasis Current Outpatient Prescriptions Medication Sig ASCORBIC ACID [...] mouth every fou r hours as needed. nystatin (NYSTOP) 100,000 unit/gram topical powder Apply to affected area as needed. A pply to candidal lesions until lesions have healed. No current facility-administered medications for this visit. Family History Problem Relation Cancer Mother breast Hypertension Mother Heart Attack Father from NH at age 52 Diabetes Father Heart Attack Brother Social History Substance Use Topics Smoking status: Former Smoker Packs/day: 1.50 Years: 41.00 Quit date: 07/19/2016 Smokeless tobacco: Former User Alcohol use No Review of Systems: Pertinent items are noted in HPI. General: Reports fevers. Eyes: Denies conjunctivitis and visual blurring. Ears, Nose, Throat: Denies ear pain, sinus pain and vertigo. Respiratory: Denies cough, sputum production, shortness of breath and wheezing. Musculoskeletal: Denies falls. Cardiovascular: See HPI. Gastrointestinal: Reports nausea, vomiting and diarrhea. Neurologic: Denies headache, migraine headache, history of TIA and history of CVA. Skin: Denies rash and skin infection. Psychological: Reportssleep disturbance. Heme/Lymphatic: Denies chronic anticoagulation. Endocrine: Denies history of diabetes mellitus All other systems negative. Physical Exam: Vitals reviewed and noted as: BP 114/65 | Pulse 86 | Temp (Src) 36.9 C (98.4 F) (Oral) | Ht 1.6 m (5' 3") | Wt 64.3 k g (141 lb 12.8 oz) | SpO2 98% | BMI 25.12 kg/(m^2) Body mass index is 25.12 kg/(m^2). Vital signs reviewed. General: comfortable, alert and cooperative HEENT: normal conjunctivae and anicteric sclerae Neck: supple without restricted range of motion, no jugular venous distention , trachea mi dline and murmur transmitted to left carotid Heart and Lung: chest is clear without rales or wheezing and respiratory effort is unlabor ed, S1, S2 normal, no S3 or S4, heart sounds notable for 2/6 mid peaking systolic murmur at LSB, regular rate and rhythm , peripheral pulses brisk and no pedal edema; Abdomen/rectal: abdomen is soft and no tenderness, rebound tenderness or guarding; Extremities: extremities normal without deformity, no clubbing or cyanosis Neuro: normal gait and station and no tremor Psych: bright affect, not apparently anxious or depressed, judgment and insight appropriat e in context of visit and apparently normal recent and remote memory Laboratory/Diagnostics: Per chart review, reviewed today and summarized below: Lab Results Component Value Date CR 0.4 10/05/2016 ECG 10/06/2016 (My preliminary read based on review of tracing in clinic) - Sinus rhythm Echo 10/06/16: Final Impressions: 1. The left ventricular cavity size is normal. 2. The LV ejection fraction is normal. 3. Right ventricular size, thickness and function are normal. 4. No significant valvular abnormalities seen. 5. The global longitudinal strain is -21.2 % and the LVEF is 66.4 %. 6. There are no prior exams available for comparison. Dobutamine stress echo 10/06/16: Final Impressions: 1. Abnormal dobutamine stress due [...] systolic function. 6. Echo negative for ischemia. Outside records reviewed from [place] (in media tab) Cardiac Risk Stratification (based on 2014 ACC/AHA Guideline on Perioperative Cardiovascula r Evaluation and Management of Patients Undergoing Noncardiac Surgery): 1. Need for emergency noncardiac surgery? b. No -> Proceed to next step 2. MEDICAL DECISION MAKING: Are active cardiac conditions present? No Calculate [...] of major adverse cardiac event (MACE) is: 1% Determine functional capacity: Functional capacity is > 4 METs. No further CAD risk strati fication is indicated. Surgery Specific Risk RCRI - (intraperitoneal; intrathoracic; suprainguinal vascular) 3. Good functional capacity? (>4 METS)a. Yes -> proceed with surgery DASI Online Calculator 4. If poor (< 4 METs) or unknown functional capacity, will further testing will impact pat ient decision making or perioperative care - yes Assessment/Plan:: Preoperative Evaluation: Paulette Byrnes is a 55 y.o. female with history of tobacco abuse, hypertensi on and dyspnea on exertion who is referred by Marty Thacker MD for cardiac evaluation and r isk assessment for rectal tumer treatment with chemotherapy and radiation first followed by rectal cancer surgery. She has 2 risk factor(s) undergoing Intermediate risk surgery, with an exercise tolerance of 4 METs with no symptoms of chest pain or dyspnea which may be sugge stive of ischemia. LVSF is normal. Nonspecific ST-T wave abnormalities shown on ECG are cons idered minor predictors, and that while recognized as markers for cardiovascular disease, th ey have not been proven to increase perioperative risk independently. Per ACC/AHA guidelines , further risk stratification is indicated prior to surgery, as results may change periopera tive management. Per Revised Cardiac Risk Index, predicted risk of perioperative cardiac mor bidity/mortality is approximately 1%. Ms. Byrnes was advised to have a resting echocardiogram to assess her LV size and function as well as her heart murmur. Given her recent heavy tob acco use and positive family history for CAD a dobutamine stress echocardiogram was also don e today and was low risk for any significant CAD. Her echocardiogram was essentially normal with normal LV size and function and no significant valvular disease. I discussed the implications of the preoperative evaluation with the patient including risk stratification. She was congratulated on her smoking cessation and encouraged to continue. Patient verbalized understanding of plan of care and instructions as outlined. A report of this preoperative evaluation will be sent to PCP Kristian Anderson DO and referring provider/surgeon Marty Thacker MD/ Ailyn Wolff MD. CARDIOLOGY - PREVENTIVE [address] Mailcode: [id number] [facility] [place] [address] [phone] signed by Brittany Laboy PA-C at 10/07/2016 9:31 AM PDTdo cumented in this encounter Plan of Treatment +--------+---------+ + + + | Date | Type | Specialty | Care Team | Description | +--------+---------+ + + + | 06/18/ | Office | Surgery | Ailyn Wolff MD | | | 2019 | Visit | | [address] | | | | | | [place], | | | | | | [place] [address] | | | | | | [phone] | | | | | | | | +--------+---------+ + + + documented as of this encounter Procedures + +--------+ + + + | Procedure Name | Priori | Date/Time | Associated Diagnosis | Comments | | | ty | | | | + +--------+ + + + | STRESS DOBUTAMINE | Routin | 10/06/2016 | Pre-operative | Results for this | | ECHOCARDIOGRAM, | e | 11:17 AM | cardiovascular | procedure are in the | | ADULT | | PDT | examination Tobacco | results section. | | | | | abuse Dyspnea, | | | | | | unspecified type | | | | | | Aortic systolic | | | | | | murmur on | | | | | | examination | | + +--------+ + + + | TRANSTHORACIC | Routin | 10/06/2016 | Pre-operative | Results for this | | ECHOCARDIOGRAM WITH | e | 8:59 AM | cardiovascular | procedure are in the | | STRAIN - CARDIO | | PDT | examination Tobacco | results section. | | MECHANICS, ADULT | | | abuse Dyspnea, | | | | | | unspecified type | | | | | | Aortic systolic | | | | | | murmur on | | | | | | examination | | + +--------+ + + + | 12 LEAD ECG | Routin | 10/06/2016 | Pre-operative | Results for this | | | e | 8:07 AM | cardiovascular | procedure are in the | | | | PDT | examination Tobacco | results section. | | | | | abuse Dyspnea, | | | | | | unspecified type | | + +--------+ + + + documented in this encounter Results STRESS DOBUTAMINE ECHOCARDIOGRAM, ADULT (10/06/2016 11:17 AM PDT) + + | Specimen | + + | | + + + + + | Narrative | Performed At | + + + | [facility] | [facility] DEPT OF | | [facility] [address] | CARDIOLOGY | | [address] [place], [place] [address] Ph: | | | Pt Name: PAULETTE BYRNES | | | Study Date / Time 10/06/2016 / 11:17:12 AMMRN: [id number] | | | Most recent prior: 10/06/2016Acc #: | | | [id number] No. previous echos: 1DOB: | | | 1960 Age: 55 years Gender: FHeight: 63.0 in | | | BSA: 1.67 [id number]: | | | 142 lb Order ID: | | | [id number] medications: None.Indications: Preoperative | | | Evaluation Retail Greeter: Isaiah Min [facility] Referring Provider: Brittany Rojas Location: [facility] Performed: Definity contrast | | | and Dobutamine stress echo.History: Paulette Byrnes is a 55 y.o. | | | female with history of tobacco abuse, hypertension and | | | dyspnea on exertion. Patient history has been obtained from the EHR | | | Dobutamine Stress Echocardiographic Report | | | + | | | ---------+Final Impressions: | | | | | | | | | | | | | | | 1. Abnormal dobutamine stress due to chest pain and rhythm | | | disturbance in recovery. Target HR was achieved. | | | 2. There is chest | | | pain reported with infusion. | | | 3. The blood pressure response was flat. | | | | | | | | | 4. EKG portion of stress test demonstrates downsloping ST | | | depression in multiple leads; however the degree of ST | | | depression did not meet diagnostic criteria. There was atrial | | | fibrillation seen in recovery. 5. At | | | rest there is normal left ventricular systolic function. | | | 6. Echo negative for ischemia. | | | | | | | | | | | | + | | | + Exercise Capacity:Symptoms: The patient developed neck | | | pain during the test. Exam Protocol: The patient was infused with | | | Dobutamine for 22 minutes and 29 seconds. Dobutamine infused in | | | increasing doses up to a maximum of 30 mcg/kg/min was given. Atropine | | | .75 mg was given. Esmolol 20 mg was given. Procedural Findings: The | | | patients resting blood pressure was 107 /38 mmHg. The peak blood | | | pressure during stress was 103/55 mm Hg. The blood pressure response | | | was flat. The peak heart rate achieved was 142 beats per minute, which | | | was 87% of the age predicted maximal heart rate of 163 beats per | | | minute. The exercise was stopped due to target heart rate achieved. | | | There is chest pain reported with infusion. Resting ECG Findings: | | | Resting ECG showed normal sinus rhythm at a rate of 73 beats per | | | minute, with no abnormal findings and EKG tracings that are within | | | normal limits. Peak Stress ECG Findings: EKG portion of stress test is | | | normal. There were no abnormal findings and ECG tracings that are | | | within normal limits during stress. Echocardiographic Findings: The | | | quality of echo imaging is good (with contrast). Images were | | | technically difficult because there is prominent lung artifact seen. | | | There were no stress-induced wall motion abnormalities. Echo negative | | | for ischemia. There is normal left ventricular ejection fraction. At | | | peak stress the LV function augments normally. Due to poor endocardial | | | definition, ultrasound contrast was used (Definity). Baseline All | | | segments are normal. 1=Normal, 2=Hypokinetic, | | | 3=Akinetic, | | | 4=Dyskinetic, 5=Aneurysmal Low Dose All | | | segments are normal. 1=Normal, 2=Hypokinetic, | | | 3=Akinetic, | | | 4=Dyskinetic, 5=Aneurysmal Peak All segments | | | are normal. 1=Normal, 2=Hypokinetic, 3=Akinetic, 4=Dyskinetic, | | | | | | 5=Aneurysmal Recovery All segments are | | | normal. 1=Normal, 2=Hypokinetic, 3=Akinetic, | | | | | | 4=Dyskinetic, 5=Aneurysmal Supervising RN: Romelia Otero, | | | RNSupervising Physician: Cole Chávez [facility] electronically | | | signed by: [id number] Cole Chávez MD (10/06/2016, 1:52:06 | | | PM)REPORT QOXE=[id number] HOSP=PO REGION=A0 Final | | | | | |Peak All segments are normal. 1=Normal, 2=Hypokinetic, 3=Akinetic, 4=Dyskinetic, | | | 5=Aneurysmal | | | | | |Recovery All segments are normal. 1=Normal, 2=Hypokinetic, 3=Akinetic, | | | 4=Dyskinet ic, 5=Aneurysmal | | | | | | | | |Supervising RN: Romelia Otero RN | | |Supervising Physician: Cole Chávez MD | | |Report electronically signed by: [id number] Cole Chávez MD (10/06/2016, 1:52:06 | | |PM) | | |REPORT YPMM=[id number] HOSP=PO REGION=A0 | | | | | | | | | | | | | | | | | | Final | | + + + + + | Procedure Note | + + | Interface, Cardiology Results - 10/06/2016 1:52 PM [facility] | | [facility] Echocardiography Laboratory [address] [place] [address] | | [place], [place] [address] Pt Name: PAULETTE | | BRITTANY BYRNES Study Date / Time 10/06/2016 / 11:17:12 AMMRN: [id number] | | Most recent prior: 10/06/2016Acc #: [id number] No. previous | | echos: 1DOB: 1960 Age: 55 years Gender: FHeight: 63.0 in | | BSA: 1.67 [id number]: 142 lb Order ID: | | [id number] medications: None.Indications: Preoperative Evaluation Retail Greeter: | | Isaiah Min [facility] Referring Provider: Brittany Rojas Location: [facility] | | Performed: Definity contrast and Dobutamine stress echo.History: Paulette Byrnes is | | a 55 y.o. female with history of tobacco abuse, hypertension and dyspnea on | | exertion. Patient history has been obtained from the EHR Dobutamine Stress | | Echocardiographic | | Report+ +Fi | | nal Impressions: | | | | 1. Abnormal dobutamine stress | | due to chest pain and rhythm disturbance in recovery. Target HR was achieved. | | 2. There is chest pain reported with infusion. | | 3. The blood pressure response was flat. | | | | 4. EKG portion of stress test demonstrates downsloping ST depression in | | multiple leads; however the degree of ST depression did not meet diagnostic criteria. | | There was atrial fibrillation seen in recovery. 5. At rest there is | | normal left ventricular systolic function. 6. Echo negative for ischemia. | | | | | | + + | | Exercise Capacity:Symptoms: The patient developed neck pain during the test. Exam | | Protocol: The patient was infused with Dobutamine for 22 minutes and 29 seconds. | | Dobutamine infused in increasing doses up to a maximum of 30 mcg/kg/min was given. | | Atropine .75 mg was given. Esmolol 20 mg was given. Procedural Findings: The patients | | resting blood pressure was 107 /38 mmHg. The peak blood pressure during stress was | | 103/55 mm Hg. The blood pressure response was flat. The peak heart rate achieved was 142 | | beats per minute, which was 87% of the age predicted maximal heart rate of 163 beats | | per minute. The exercise was stopped due to target heart rate achieved. There is chest | | pain reported with infusion. Resting ECG Findings: Resting ECG showed normal sinus | | rhythm at a rate of 73 beats per minute, with no abnormal findings and EKG tracings that | | are within normal limits. Peak Stress ECG Findings: EKG portion of stress test is | | normal. There were no abnormal findings and ECG tracings that are within normal limits | | during stress. Echocardiographic Findings: The quality of echo imaging is good (with | | contrast). Images were technically difficult because there is prominent lung artifact | | seen. There were no stress-induced wall motion abnormalities. Echo negative for | | ischemia. There is normal left ventricular ejection fraction. At peak stress the LV | | function augments normally. Due to poor endocardial definition, ultrasound contrast was | | used (Definity). Baseline All segments are normal. 1=Normal, 2=Hypokinetic, | | 3=Akinetic, 4=Dyskinetic, | | 5=AneurysmalLow Dose All segments are normal. 1=Normal, 2=Hypokinetic, | | 3=Akinetic, 4=Dyskinetic, | | 5=AneurysmalPeak All segments are normal. 1=Normal, 2=Hypokinetic, 3=Akinetic, | | 4=Dyskinetic, | | 5=AneurysmalRecovery All segments are normal. 1=Normal, 2=Hypokinetic, | | 3=Akinetic, 4=Dyskinetic, | | 5=Aneurysmal Supervising RN: Romelia Otero, RNSupervising Physician: Cole | | Jose M Chávez electronically signed by: [id number] Cole Chávez MD (10/06/2016, | | 1:52:06 PM)REPORT NUTW=[id number] HOSP=PO REGION=A0 Final | |predicted maximal heart rate of 163 beats per minute. The exercise was stopped due to | | target heart rate achieved. There is chest pain reported with infusion. | | | |Resting ECG Findings: Resting ECG showed normal sinus rhythm at a rate of 73 beats | |per minute, with no abnormal findings and EKG tracings that are within normal limits. | | | |Peak Stress ECG Findings: EKG portion of stress test is normal. There were no | |abnormal findings and ECG tracings that are within normal limits during stress. | | | |Echocardiographic Findings: The quality of echo imaging is good (with contrast). | |Images were technically difficult because there is prominent lung artifact seen. | |There were no stress-induced wall motion abnormalities. Echo negative for ischemia. | |There is normal left ventricular ejection fraction. At peak stress the LV function | |augments normally. Due to poor endocardial definition, ultrasound contrast was used | |(Definity). | | | |Baseline All segments are normal. 1=Normal, 2=Hypokinetic, 3=Akinetic, | | 4=Dyskinetic, 5=Aneurysmal | | | |Low Dose All segments are normal. 1=Normal, 2=Hypokinetic, 3=Akinetic, | | 4=Dyskinetic, 5=Aneurysmal | | | |Peak All segments are normal. 1=Normal, 2=Hypokinetic, 3=Akinetic, 4=Dyskinetic, | | 5=Aneurysmal | | | |Recovery All segments are normal. 1=Normal, 2=Hypokinetic, 3=Akinetic, | | 4=Dyskinetic, 5=Aneurysmal | | | | | |Supervising RN: Romelia Otero RN | |Supervising Physician: Cole Chávez MD | |Report electronically signed by: [id number] Cole Chávez MD (10/06/2016, 1:52:06 | |PM) | |REPORT OOVN=[id number] HOSP=PO REGION=A0 | | | | | | | | | | | | Final | + + + + + + + | Performing | Address | City/State/Zipcode | Phone Number | | Organization | | | | + + + + + | [facility]PT OF | [address] | [place], [place] | | | CARDIOLOGY | [address] | [address] | | + + + + + TRANSTHORACIC ECHOCARDIOGRAM WITH STRAIN - CARDIO MECHANICS, ADULT (10/06/2016 8:59 AM PDT ) + + + + + + | Component | Value | Ref Range | Performed | Pathologist | | | | | At | Signature | + + + + + + | BIPLANE, EF | 66 | | [facility] | | | | | | OF | | | | | | CARDIOLOGY | | + + + + + + | EJECTION | 65 to 70 | | [facility] | | | FRACTION | | | OF | | | | | | CARDIOLOGY | | + + + + + + | LA | 2.9 | | [facility] | | | DIMENSION | | | OF | | | | | | CARDIOLOGY | | + + + + + + | LVIDD | 4.4 | | [facility] | | | | | | OF | | | | | | CARDIOLOGY | | + + + + + + | MV A VMAX | 0.8 | | [facility] | | | | | | OF | | | | | | CARDIOLOGY | | + + + + + + | MV E? | 0.1 | | [facility] | | | | | | OF | | | | | | CARDIOLOGY | | + + + + + + | MV E VMAX | 0.8 | | [facility] | | | | | | OF | | | | | | CARDIOLOGY | | + + + + + + | RV TAPSE | 2.1 | | [facility] | | | | | | OF | | | | | | CARDIOLOGY | | + + + + + + | RV TDI S? | 15.0 | | [facility] | | | | | | OF | | | | | | CARDIOLOGY | | + + + + + + | EJECTION | 67.5 | % | [facility] | | | FRACTION | | | OF | | | RANGE MEAN | | | CARDIOLOGY | | | VALUE | | | | | + + + + + + + + | Specimen | + + | | + + + +---- + | Narrative | Per formed At | + +---- + | [facility] | [facility] | | [facility] [address] CAR DIOLOGY | | [place], [place] [address] Ph: | | | Pt Name: PAULETTE BYRNES | | | Study Date/Time 10/06/2016 / 8:59:07 AMN: [id number] | | | Most recent prior: -[facility] #: [id number] | | | No. previous echos: 0DOB: 1960 55 years Heart Rate: | | | 78 bpmHeight: 63.0 in Blood | | | Pressure: 131/69 mm/HgWeight: 142.0 lb | | | Gender: FBSA: 1.67 m2 | | | Order ID: [id number] Retail Greeter: Brandon Hwang MA, | | | [facility] Referring Provider: Brittany Rojas Location: | | | [facility] Performed: 2D, Color flow, Spectral Doppler.Study | | | Quality: Good.Exam Indication: Cardiotoxic therapiesHistory: Colon | | | cancer, pre-chemo/ rectal surgery, history of tabacco abuse Patient | | | history has been obtained from the EHR Transthoracic Echocardiographic | | | Report | | | + + | | | Final Impressions: | | | | | | | | | | | | 1. The left ventricular cavity size is normal. | | | 2. The LV ejection fraction is normal. | | | | | | | | | 3. Right ventricular size, thickness and function are normal. | | | 4. No significant valvular abnormalities seen. | | | 5. The global longitudinal strain is -21.2 % and the | | | LVEF is 66.4 %. | | | | | | | | | 6. There are no prior exams available for comparison. | | | | | | | | | + | | | -+ LV Function & Strain Data | | | Table:+ + +-------+Study Date:LVEF (Biplane) | | | GLS + + +-------+10/06/2016 66.4 % | | | -21.2 %+ + +-------+ Description of | | | Findings: Cardiac Rhythm: Normal sinus rhythm.Left Ventricle: The left | | | ventricular cavity size is normal. Visually estimated left | | | ventricular ejection fraction is 65 - 70%. The global longitudinal | | | strain is -21.2 %. The LV ejection fraction is normal.The ejection | | | fraction is 66.4 % as measured by Conti's biplane method.Left | | | Ventricular Wall Motion: Left ventricular systolic thickening is | | | normal in all segments.Atria: Left atrial size is normal. Normal right | | | atrium.Right Ventricle: Right ventricular size, thickness and | | | function are normal. TAPSE measures 2.1cm. The RV TDI s' velocity is | | | 15cm/sec.Aortic Valve: The aortic valve is trileaflet and normal in | | | structure and function. No indication of aortic valve | | | regurgitation.Mitral Valve: The mitral valve is structurally normal. | | | No evidence of mitral valve stenosis. No evidence of mitral valve | | | regurgitation.Tricuspid Valve: The tricuspid valve is structurally | | | normal. Trace tricuspid regurgitation.Pulmonic Valve: The pulmonic | | | valve is structurally normal. The peak trans pulmonic gradient is 3.0 | | | mmHg.Aorta: Visualized portions of the ascending aorta and aortic root | | | appear normal.Venous: Inferior vena cava is normal with normal | | | inspiratory collapse.Pericardium: No pericardial effusion is seen. | | | Additional Findings: There are no prior exams.2D Measurements | | | Doppler Measurements 2D NL Values | | | Aortic MitralLVID(d) 4.37 (3.5-5.7cm) Max Jarod | | | 1.94 Peak E 0.75 cm | | | m/s m/sLVID(s) 3.03 | | | Mean grad 8.9 Peak A 0.83 cm | | | mmHg m/sIVS(d) | | | 0.78 (0.6-1.1cm) LVOT Jarod 1.21 E/A Ratio 0.91 | | | cm m/sLVPW(d) 0.93 | | | (0.6-1.1cm) LVOT Diam 1.99 TDI (E/e') 8.3 cm | | | cmLA A/Ps 2D 2.91 (2.7-3.9cm) | | | Tricuspid Pulmonic cm | | | TR Vmax 2.52 PV Vmax 0.9LA vol A/L 43.5 (40-73ml) | | | m/s m/sBP mlLA vol A/L 26.0 | | | (16-34) Aorta: Index:index | | | ml/m2 Ao Sinus 3.08 (2.1-3.5cm) | | | cmBiplane EF 66.4 % | | | Asc Ao 3.33GLS % -21.2 | | | (prox) cm %Evaluation of chamber size and | | | geometry is accomplished through the incorporation of linear, | | | volumetric, and indexed values Report electronically signed by: | | | [id number] Cole Chávez MD (10/06/2016, 10:21:24 AM)REPORT | | | SBLP=[id number] HOSP=PO REGION=A0 Final | | | cm m/s m/s | | |LVID(s) 3.03 Mean grad 8.9 Peak A 0.83 | | | cm mmHg m/s | | |IVS(d) 0.78 (0.6-1.1cm) LVOT Jarod 1.21 E/A Ratio 0.91 | | | cm m/s | | |LVPW(d) 0.93 (0.6-1.1cm) LVOT Diam 1.99 TDI (E/e') 8.3 | | | cm cm | | |LA A/Ps 2D 2.91 (2.7-3.9cm) Tricuspid Pulmonic | | | cm TR Vmax 2.52 PV Vmax 0.9 | | |LA vol A/L 43.5 (40-73ml) m/s m/s | | |BP ml | | |LA vol A/L 26.0 (16-34) Aorta: Index: | | |index ml/m2 Ao Sinus 3.08 (2.1-3.5cm) | | | cm | | |Biplane EF 66.4 % Asc Ao 3.33 | | |GLS % -21.2 (prox) cm | | | % | | |Evaluation of chamber size and geometry is accomplished through the incorporation of | | |linear, volumetric, and indexed values | | | | | |Report electronically signed by: [id number] Cole Chávez MD (10/06/2016, 10:21:24 | | |AM) | | |REPORT BIRO=[id number] HOSP=PO REGION=A0 | | | | | | | | | | | | Final | | + +---- + + + | Procedure Note | + + | Interface, Cardiology Results - 10/06/2016 10:21 AM PDT [facility] | | [facility] Echocardiography Laboratory [address] [place] [address] | | [place], [place] [address] Pt Name: PAULETTE | | BRITTANY BYRNES Study Date/Time 10/06/2016 / 8:59:07 AMMRN: [id number] | | Most recent prior: -[facility] #: [id number] No. previous echos: 0DOB: | | 1960 55 years Heart Rate: 78 bpmHeight: 63.0 in Blood | | Pressure: 131/69 mm/HgWeight: 142.0 lb Gender: FBSA: | | 1.67 m2 Order ID: [id number] Retail Greeter: Brandon Hwang MA, | | RDCSReferring Provider: Brittany Rojas Location: [facility] Performed: | | 2D, Color flow, Spectral Doppler.Study Quality: Good.Exam Indication: Cardiotoxic | | therapiesHistory: Colon cancer, pre-chemo/ rectal surgery, history of tabacco abuse | | Patient history has been obtained from the EHR Transthoracic Echocardiographic | | Report+ +Final | | Impressions: | | | | 1. The left ventricular cavity size is normal. | | 2. The LV ejection fraction is normal. | | 3. Right ventricular size, thickness | | and function are normal. 4. No significant valvular abnormalities seen. | | 5. The global longitudinal strain is -21.2 % and the LVEF is 66.4 %. | | | | 6. There are no prior exams available for | | comparison. | | + + LV Function | | & Strain Data Table:+ + +-------+Study Date:LVEF (Biplane) GLS | | + + +-------+10/06/2016 66.4 % -21.2 | | %+ + +-------+ Description of Findings: Cardiac Rhythm: Normal | | sinus rhythm.Left Ventricle: The left ventricular cavity size is normal. Visually | | estimated left ventricular ejection fraction is 65 - 70%. The global longitudinal strain | | is -21.2 %. The LV ejection fraction is normal.The ejection fraction is 66.4 % as | | measured by Conti's biplane method.Left Ventricular Wall Motion: Left ventricular | | systolic thickening is normal in all segments.Atria: Left atrial size is normal. Normal | | right atrium.Right Ventricle: Right ventricular size, thickness and function are normal. | | TAPSE measures 2.1cm. The RV TDI s' velocity is 15cm/sec.Aortic Valve: The aortic valve | | is trileaflet and normal in structure and function. No indication of aortic valve | | regurgitation.Mitral Valve: The mitral valve is structurally normal. No evidence of | | mitral valve stenosis. No evidence of mitral valve regurgitation.Tricuspid Valve: The | | tricuspid valve is structurally normal. Trace tricuspid regurgitation.Pulmonic Valve: | | The pulmonic valve is structurally normal. The peak trans pulmonic gradient is 3.0 | | mmHg.Aorta: Visualized portions of the ascending aorta and aortic root appear | | normal.Venous: Inferior vena cava is normal with normal inspiratory | | collapse.Pericardium: No pericardial effusion is seen. Additional Findings: There are no | | prior exams.2D Measurements Doppler Measurements 2D NL | | Values Aortic MitralLVID(d) 4.37 (3.5-5.7cm) Max Jarod 1.94 Peak E | | 0.75 cm m/s m/sLVID(s) 3.03 | | Mean grad 8.9 Peak A 0.83 cm mmHg | | m/sIVS(d) 0.78 (0.6-1.1cm) LVOT Jarod 1.21 E/A Ratio 0.91 cm | | m/sLVPW(d) 0.93 (0.6-1.1cm) LVOT Diam 1.99 TDI (E/e') 8.3 | | cm cmLA A/Ps 2D 2.91 (2.7-3.9cm) Tricuspid | | Pulmonic cm TR Vmax 2.52 PV Vmax 0.9LA vol A/L 43.5 | | (40-73ml) m/s m/sBP mlLA vol A/L 26.0 (16-34) | | Aorta: Index:index ml/m2 Ao Sinus 3.08 | | (2.1-3.5cm) cmBiplane EF 66.4 % Asc | | Ao 3.33GLS % -21.2 (prox) cm %Evaluation of chamber | | size and geometry is accomplished through the incorporation of linear, volumetric, and | | indexed values Report electronically signed by: [id number] Cole Chávez MD | | (10/06/2016, 10:21:24 AM)REPORT EDDP=[id number] HOSP= REGION=A0 Final | |ventricular ejection fraction is 65 - 70%. The global longitudinal strain is -21.2 %. | | The LV ejection fraction is normal. | |The ejection fraction is 66.4 % as measured by Conti's biplane method. | |Left Ventricular Wall Motion: Left ventricular systolic thickening is normal in all | |segments. | |Atria: Left atrial size is normal. Normal right atrium. | |Right Ventricle: Right ventricular size, thickness and function are normal. TAPSE | |measures 2.1cm. The RV TDI s' velocity is 15cm/sec. | |Aortic Valve: The aortic valve is trileaflet and normal in structure and function. No | | indication of aortic valve regurgitation. | |Mitral Valve: The mitral valve is structurally normal. No evidence of mitral valve | |stenosis. No evidence of mitral valve regurgitation. | |Tricuspid Valve: The tricuspid valve is structurally normal. Trace tricuspid | |regurgitation. | |Pulmonic Valve: The pulmonic valve is structurally normal. The peak trans pulmonic | |gradient is 3.0 mmHg. | |Aorta: Visualized portions of the ascending aorta and aortic root appear normal. | |Venous: Inferior vena cava is normal with normal inspiratory collapse. | |Pericardium: No pericardial effusion is seen. | | | |Additional Findings: There are no prior exams. | |2D Measurements Doppler Measurements | | | | 2D NL Values Aortic Mitral | |LVID(d) 4.37 (3.5-5.7cm) Max Jarod 1.94 Peak E 0.75 | | cm m/s m/s | |LVID(s) 3.03 Mean grad 8.9 Peak A 0.83 | | cm mmHg m/s | |IVS(d) 0.78 (0.6-1.1cm) LVOT Jarod 1.21 E/A Ratio 0.91 | | cm m/s | |LVPW(d) 0.93 (0.6-1.1cm) LVOT Diam 1.99 TDI (E/e') 8.3 | | cm cm | |LA A/Ps 2D 2.91 (2.7-3.9cm) Tricuspid Pulmonic | | cm TR Vmax 2.52 PV Vmax 0.9 | |LA vol A/L 43.5 (40-73ml) m/s m/s | |BP ml | |LA vol A/L 26.0 (16-34) Aorta: Index: | |index ml/m2 Ao Sinus 3.08 (2.1-3.5cm) | | cm | |Biplane EF 66.4 % Asc Ao 3.33 | |GLS % -21.2 (prox) cm | | % | |Evaluation of chamber size and geometry is accomplished through the incorporation of | |linear, volumetric, and indexed values | | | |Report electronically signed by: [id number] Cole Chávez MD (10/06/2016, 10:21:24 | |AM) | |REPORT QEVM=[id number] HOSP=PO REGION=A0 | | | | | | | | Final | + + + + + + + | Performing | Address | City/State/Zipcode | Phone Number | | Organization | | | | + + + + + | [facility] | [address] | [place], [place] | | | CARDIOLOGY | [address] | [address] | | + + + + + 12 LEAD ECG (10/06/2016 8:07 AM PDT) + + + + + + | Component | Value | Ref Range | Performed | Pathologist | | | | | At | Signature | + + + + + + | VENTRICULAR | 83 | bpm | [facility] | | | RATE | | | OF | | | | | | CARDIOLOGY | | + + + + + + | ATRIAL RATE | 83 | ms | [facility] | | | | | | OF | | | | | | CARDIOLOGY | | + + + + + + | P-R | 148 | ms | [facility] | | | INTERVAL | | | OF | | | | | | CARDIOLOGY | | + + + + + + | P AXIS | 38 | deg | [facility] | | | | | | OF | | | | | | CARDIOLOGY | | + + + + + + | QRS | 88 | ms | [facility] | | | DURATION | | | OF | | | | | | CARDIOLOGY | | + + + + + + | QT | 372 | ms | [facility] | | | | | | OF | | | | | | CARDIOLOGY | | + + + + + + | QTCB | 437 | ms | [facility] | | | | | | OF | | | | | | CARDIOLOGY | | + + + + + + | R AXIS | -32 | deg | [facility] | | | | | | OF | | | | | | CARDIOLOGY | | + + + + + + | T AXIS | 38 | deg | [facility] | | | | | | OF | | | | | | CARDIOLOGY | | + + + + + + | ECG | SINUS RHYTHM- NORMAL ECG | | [facility] | | | IMPRESSION | - | | OF | | | | | | CARDIOLOGY | | + + + + + + | ECG | Electronically signed | | [facility] | | | IMPRESSION | by: KRYSTAL BETHEA | | OF | | | | 10-06-2016 21:38:47 | | CARDIOLOGY | | + + [...] + + + + + | [facility] | [address] | [place], [place] | | | CARDIOLOGY | [address] | [address] | | + + + + + documented in this encounter Visit Diagnoses + + | Diagnosis | + + | Dyspnea, unspecified type - Primary | + + | Pre-operative cardiovascular examination | + + | Tobacco abuse Tobacco use disorder | + + | Aortic systolic murmur on examination | + + documented in this encounter
--- OUTSIDE RECORDS SUMMARY | ~2019-05-24 | XMS | Encounter Summary ---
Demographics + + + | Address | [address] | | | [place] [address] | + + + | Home Phone [...] Team Providers + +------+ + | Care Extrusion Die Template Maker Name | Role | Phone | + +------+ + | Kristian Anderson DO | PCP | | + +------+ + Encounter Details +--------+ + + + + | Date | Type | Department | Care Team | Description | +--------+ + + + + | 05/17/ | Document-Sc | Health Information | Unknown . | | | 2017 | anned | Services [address] | | | | | | [address] | | | | | | Mailcode: OP17A | | | | | | [facility] | | | | | | [place], [place] | | | | | | [address] | | | | | | [phone] | | | +--------+ + + + [...] | | | | | Amita Hines [place], | | | | | | [place] [address] | | | | | | [phone] | | | | | | | | +--------+---------+ + + + documented as of this encounter Procedures + +--------+ + + + | Procedure Name | Priori | Date/Time | Associated Diagnosis | Comments | | | ty | | | | + +--------+ + + + | RADIOLOGY | | 05/17/2017 | | Results for this | | | | 12:00 AM | | procedure are in the | | | | PDT | | results section. | + +--------+ + + + documented in this encounter Results RADIOLOGY (05/17/2017 12:00 AM PDT) + + + | Narrative | Performed At | + + + | | | + + + documented in this encounter Visit Diagnoses Not on filedocumented in this encounter"
--- OUTSIDE RECORDS SUMMARY | ~2019-05-24 | XMS | Encounter Summary ---
Demographics + + + | Address | [address] | | | [place] [address] | + + + | Home Phone | | + + + | Preferred Language | Unknown | + + + | Marital Status | Single | + + + | Mu-Ism Affiliation | NON | + + + [...] Team Providers + +------+ + | Care Lead Performance Support Analyst Name | Role | Phone | [...] | 2018 | Encounter | Center at [facility] [address] | [address] | | | | | [address] | Amita Hines [place], | | | | | Mailcode: [place] | [place] [address] | | | | | for Health and | [phone] | | | | | [facility] 2 | | | | | | [place], [place] | | | | | | [address] | | | | | | [phone] | | | +--------+ + + + [...] | | | | | [place]mita Hines [place], | | | | | | [place] [address] | | | | | | [phone] | | | | | | | | +--------+---------+ + + + documented as of this encounter Visit Diagnoses Not on filedocumented in this encounter"
--- OUTSIDE RECORDS SUMMARY | ~2019-05-24 | XMS | Encounter Summary ---
Demographics + + + | Address | [address] | | | [place] [address] | + + + | Home Phone | | + + + | Preferred Language | Unknown | + + + | Marital Status | Single | + + + | Buddhism Affiliation | NON | + + + [...] Team Providers + +------+ + | Care Websphere Commerce Consultant Name | Role | Phone | + [...] 2018 | | Center at [facility] [address] | [address] | Review | | | | [address] | Amita Hines [place], | | | | | Mailcode: [place] | [place] [address] | | | | | for Health and | [phone] | | | | | [facility] 2 | | | | | | [place], [place] | | | | | | [address] | | | | | | [phone] | | | +--------+ + + + [...] | | | | | Amita Hines [place], | | | | | | [place] [address] | | | | | | [phone] | | | | | | | | +--------+---------+ + + + documented as of this encounter Visit Diagnoses Not on filedocumented in this encounter"
--- OUTSIDE RECORDS SUMMARY | ~2019-05-24 | XMS | Encounter Summary ---
Demographics + + + | Address | [address] | | | [place] [address] | + + + | Home Phone | | + + + | Preferred Language | Unknown | + + + | Marital Status | Single | + + + | Shinto Affiliation | NON | + + + [...] Team Providers + +------+ + | Care Tubing Machine Operator Name | Role | Phone [...] | +--------+ + + + + | 10/09/ | Abstract | Digestive Health | Ailyn Wolff MD | Medical Records | | 2019 | | Center at [facility] [address] | [address] | Review | | | | [address] | Amita Hines [place], | | | | | Mailcode: [place] | [place] [address] | | | | | for Health and | [phone] | | | | | [facility] 2 | | | | | | [place], [place] | | | | | | [address] | | | | | | [phone] | | | +--------+ + + + [...] | | | | | Amita Hines [place], | | | | | | [place] [address] | | | | | | [phone] | | | | | | | | +--------+---------+ + + + documented as of this encounter Visit Diagnoses Not on filedocumented in this encounter"
--- OUTSIDE RECORDS SUMMARY | ~2019-05-24 | XMS | Encounter Summary ---
Demographics + + + | Address | [address] | | | [place] [address] | + + + | Home Phone [...] Team Providers + +------+ + | Care Engraver Wood Name | Role | Phone | + +------+ + | Kristian Anderson DO | PCP | | + +------+ + Encounter Details +--------+ + + + + | Date | Type | Department | Care Team | Description | +--------+ + + + + | 10/04/ | Abstract | Digestive Health | Clinic, Surgery | | | 2017 | | [place] [place] [facility] [address] | | | | | | [address] | | | | | | Mailcode: [place] | | | | | | for Health and | | | | | | Healing, Building [address] | | | | | | [place], [place] | | | | | | [address] | | | | | | [phone] | | | +--------+ + + + [...] | | | | | Amita Hines [place], | | | | | | [place] [address] | | | | | | [phone] | | | | | | | | +--------+---------+ + + + documented as of this encounter Visit Diagnoses Not on filedocumented in this encounter"
--- OUTSIDE RECORDS SUMMARY | ~2019-05-24 | XMS | Encounter Summary ---
Demographics + + + | Address | [address] | | | [place] [address] | + + + | Home Phone | | + + + | Preferred Language | Unknown | + + + | Marital Status | Single | + + + | Temple Affiliation | NON | + + + [...] Team Providers + +------+ + | Care Web Retailer Name | Role | Phone | + +------+ + | Kristian Anderson DO | PCP | | + +------+ + Encounter Details +--------+ + + + + | Date | Type | Department | Care Team | Description | +--------+ + + + + | 04/21/ | Procedure | 6A Intra [facility] | | | | 2016 | Pass | [facility] | | | | | | Admitting Desk | | | | | | Located on the 9th | | | | | | floor [address] [facility] | | | | | | [address] | | | | | | [place], [place] | | | | | | [address] | | | +--------+ + + + [...] | | | | | Amita Hines [place], | | | | | | [place] [address] | | | | | | [phone] | | | | | | | | +--------+---------+ + + + documented as of this encounter Visit Diagnoses Not on filedocumented in this encounter"
--- OUTSIDE RECORDS SUMMARY | ~2019-05-24 | XMS | Encounter Summary ---
Demographics + + + | Address | [address] | | | [place] [address] | + + + | Home Phone | | + + + | Preferred Language | Unknown | + + + | Marital Status | Single | + + + | Anabaptism Affiliation | NON | + + + [...] Team Providers + +------+ + | Care Noc Engineer Name | Role | Phone | [...] | | 2017 | | Center at [facility] [address] | [address] | Received | | | | [address] | Amita Hines [place], (Demographics) | | | | Mailcode: [place] | [place] [address] | | | | | for Health and | [phone] | | | | | [address] [place] [address] | | | | | | [place], [place] | | | | | | [address] | | | | | | [phone] | | | +--------+ + + + [...] | | | | | Amita Hines [place], | | | | | | [place] [address] | | | | | | [phone] | | | | | | | | +--------+---------+ + + + documented as of this encounter Visit Diagnoses Not on filedocumented in this encounter"
--- OUTSIDE RECORDS SUMMARY | ~2019-05-24 | XMS | Encounter Summary ---
Demographics + + + | Address | [address] | | | [place] [address] | + + + | Home Phone [...] Team Providers + +------+ + | Care Chassis Inspector Name | Role | Phone | + +------+ + | Kristian Anderson DO | PCP | | + +------+ + Encounter Details +--------+ + + + + | Date | Type | Department | Care Team | Description | +--------+ + + + + | 07/19/ | Parliamentary Archivist | Digestive Health | Trinidad Garcia, | | | 2016 | | Center at [facility] [address] | AGACNP [address] | | | | | [address] | [facility] [place] | | | | | Mailcode: [place] | [address] | | | | | for Health and | | | | | | [facility] 2 | | | | | | [facility] [place] | | | | | | [address] | | | | | | [phone] | | | +--------+ + + + [...] | 2019 | Visit | | [address] | | | | | | Amita Hines [place], | | | | | | [place] [address] | | | | | | [phone] | | | | | | | | +--------+---------+ + + + documented as of this encounter Visit Diagnoses Not on filedocumented in this encounter"
--- OUTSIDE RECORDS SUMMARY | ~2019-05-24 | XMS | Encounter Summary ---
Demographics + + + | Address | [address] | | | [place] [address] | + + + | Home Phone [...] + +------+ + | Care Real Estate Sales Associate Name | Role | Phone | + [...] | +--------+ + + + + | 08/07/ | Abstract | Digestive Health | Ailyn Wolff MD | Medical Records | | 2019 | | Center at [facility] [address] | [address] | Review | | | | [address] | Amita Hines [place], | | | | | Mailcode: [place] | [place] [address] | | | | | for Health and | [phone] | | | | | [facility] 2 | | | | | | [place], [place] | | | | | | [address] | | | | | | [phone] | | | +--------+ + + + [...] | | | | | Amita Hines [place], | | | | | | [place] [address] | | | | | | [phone] | | | | | | | | +--------+---------+ + + + documented as of this encounter Visit Diagnoses Not on filedocumented in this encounter"
--- OUTSIDE RECORDS SUMMARY | ~2019-05-24 | XMS | Encounter Summary ---
Demographics + + + | Address | [address] | | | [place] [address] | + + + | Home Phone [...] Team Providers + +------+ + | Care Lime Kiln Worker Name | Role | Phone | [...] 2019 | | Center at [facility] [address] | [address] | Review | | | | [address] | [place] H[place], | | | | | Mailcode: [place] | [place] [address] | | | | | for Health and | [phone] | | | | | [facility] 2 | | | | | | [place], [place] | | | | | | [address] | | | | | | [phone] | | | +--------+ + + + [...] | | | | | [place], | | | | | | [place] [address] | | | | | | [phone] | | | | | | | | +--------+---------+ + + + documented as of this encounter Visit Diagnoses Not on filedocumented in this encounter"
--- OUTSIDE RECORDS SUMMARY | ~2019-05-24 | XMS | Encounter Summary ---
Demographics + + + | Address | [address] | | | [place] [address] | + + + | Home Phone [...] Team Providers + +------+ + | Care Foreclosure Field Inspector Name | Role | Phone | [...] | 2017 | Encounter | Center at [facility] [address] | [address] | | | | | [address] | [place] Hines [place], | | | | | Mailcode: [place] | [place] [address] | | | | | for Health and | [phone] | | | | | [facility] 2 | | | | | | [place], [place] | | | | | | [address] | | | | | | [phone] | | | +--------+ + + + [...] | | | | | | [place] [address] | | | | | | [phone] | | | | | | | | +--------+---------+ + + + documented as of this encounter Visit Diagnoses Not on filedocumented in this encounter"
--- OUTSIDE RECORDS SUMMARY | ~2019-05-24 | XMS | Encounter Summary ---
Demographics + + + | Address | [address] | | | [place] [address] | + + + | Home Phone [...] + + + | Author | [facility] | + + + | Organization | [facility] | + + + | Address | Unknown | + + + | Phone | Unavailable | + + + Support + + +---------+ + | Name | Relationship | Address | Phone | + + +---------+ + | Darrius Quintana | ECON | Unknown | | + + +---------+ + Care Team Providers + +------+ + | Care Mosaic Technician Name | Role | Phone | [...] + + + + | 01/12/ | Abstract | Digestive Health | Ailyn Wolff MD | Medical Records | | 2017 | | Center at [facility] [address] | [address] | Review | | | | [address] | [place] Hines [place], | | | | | Mailcode: [place] | [place] [address] | | | | | for Health and | [phone] | | | | | [facility] 2 | | | | | | [place], [place] | | | | | | [address] | | | | | | [phone] | | | +--------+ + + + [...] | | | | | [place], | | | | | | [place] [address] | | | | | | [phone] | | | | | | | | +--------+---------+ + + + documented as of this encounter Visit Diagnoses Not on filedocumented in this encounter"
--- OUTSIDE RECORDS SUMMARY | ~2019-05-24 | XMS | Encounter Summary ---
Demographics + + + | Address | [address] | | | [place] [address] | + + + | Home Phone [...] Author + + + | Author | [facility] | + + + | Organization | [facility] | + + + | Address | Unknown | + + + | Phone | Unavailable | + + + Support + + +---------+ + | Name | Relationship | Address | Phone | + + +---------+ + | Darrius Quintana | ECON | Unknown | | + + +---------+ + Care Team Providers + +------+ + | Care Automation Machine Operator Name | Role | Phone [...] | | | | Leyla Dept | [address] | | | | | | | [address] | | | | | | | [place] | | | | | | | [place], [place] | | | | | | | [address] | | | | | | | Phone: | | | | | | | [phone] | | | | | | | Fax: | | | | | | | [phone] | +--------+--------+ + + + + Encounter Details +--------+---------+ + + + | Date | Type | Department | Care Team | Description | +--------+---------+ + + + | 02/20/ | Office | Digestive Health | Ailny Wolff MD | CA of rectum (HCC) | | 2018 | Visit | [place] at [facility] [address] | [address] | (Primary Dx) | | | | [address] | [place], | | | | | Mailcode: [place] | [place] [address] | | | | | for Health and | [phone] | | | | | [facility] 2 | | | | | | [place], [place] | | | | | | [address] | | | | | | [phone] | | | +--------+---------+ + + + [...] rectal bleeding on 07/19/16 went to the [facility] ED CT abdomen/pelvis with IV contrast [...] (10/05/16) no liver metastases rigid proctoscopy by pa (10/05/16) 6 cm from anal verge presented at the [facility] on 10/07/16 diagnosis: [...] to Mendoza pouch staple line presented at [facility] on 03/10/17. Given [...] MRI ([facility], 05/17/17) close to pelvic sidewall [facility] (06/02/17) Recommendations with [...] resection with primary anastomosis, placement of a 19-Albanian Albert drain through the right lower quadrant [...] resection with primary anastomosis, placement of a 19-Albanian Albert drain through the right lower quadrant [...] Return/Re-evaluation patient, I spent 12 minutes of tdml-dl-kldu time, of which m ore than half [...] | | | | | [place], | | | | | | [place] [address] | | | | | | [phone] | | | | | | | [...] | + + + + + | [employer] | [address] | [place] [address] | | | SERVICES, CORE | [address] | | | + + + + + documented in this encounter Visit Diagnoses + + | Diagnosis | + + | 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
--- OUTSIDE RECORDS SUMMARY | ~2019-05-24 | XMS | Clinical Summary ---
Demographics + + + | Address | [address] | | | [place] [address] | + + + | Home Phone | | + + + | Preferred Language | Unknown | + + + | Marital Status | | + + + | Tenriism Affiliation | Unknown | + + + | Race | Unknown | + + + | Ethnic Group | Unknown | + + + Author + + + | Author | [facility] | | | and [place] | + + + | Organization | [facility] | | | and [place] | + + + | Address | Unknown | + + + | Phone | Unavailable | + + + Support + + + + + | Name | Relationship | Address | Phone | + + + + + | Lamar Phillips | ECON | [place] [address] | | + + + + + Care Team Providers + +------+ + | Care Battalion Fire Chief Name | Role | Phone | + +------+ + | Kristian Anderson DO | PCP | | + +------+ + Allergies + [...] | | + + + +---------+------+------+-------+ | buPROPion | Take 300 mg by mouth | | 0 | | | Activ | | (WELLBUTRIN SR) 150 | Daily. | | | | | e | | mg 12 hr tablet | | | | | | | + + + +---------+------+------+-------+ | clobetasol | Apply topically | | 0 | | | Activ | | (TEMOVATE) 0.05% | Once a week. | | | | | e | | ointment | | | | | | | + + + +---------+------+------+-------+ | nystatin | Apply topically as | | 0 | | | Activ | | (MYCOSTATIN) powder | needed. | | | | | e | + + + +---------+------+------+-------+ | ascorbic acid | Take 1,000 mg by | | 0 | | | Activ | | (VITAMIN C) 500 mg | mouth Daily. | | | | | e | | tablet | | | | | | | + + + +---------+------+------+-------+ | ibuprofen (ADVIL, | Take 200 mg by mouth | | 0 | | | Activ | | MOTRIN) 200 mg | every 6 hours as | | | | | e | | tablet | needed for Pain. | | | | | | + + + +---------+------+------+-------+ | Multiple | Take by mouth. | | 0 | | | Activ | | Vitamins-Minerals | | | | | | e | | (MULTIVITAMIN ADULT | | | | | | | | PO) | | | | | | | + + + +---------+------+------+-------+ | ALPRAZolam (XANAX) | Bring with to [...] | | + + + +---------+------+------+-------+ | ondansetron | Take 8 mg by mouth | | 0 | | | Activ | | (ZOFRAN ODT) 8 mg | every 8 hours as | | | | | e | | disintegrating | needed for Nausea. | | | | | | | tablet | | | | | | | + + + +---------+------+------+-------+ | oxyCODONE | Take 5 mg by mouth | | 0 | | | Activ | | (ROXICODONE) 5 mg | every 6 hours as | | | | | e | | tablet | needed for Pain. | | | | | | + + + +---------+------+------+-------+ | acetaminophen | Take 1,000 mg by | | 0 | | | Activ | | (TYLENOL) [...] | | + + + +---------+------+------+-------+ | LORazepam (ATIVAN) | Take 1 tablet [...] | | + + + +---------+------+------+-------+ | escitalopram | Take 10 mg by mouth | | 0 | | | Activ | | (LEXAPRO) 10 mg | Daily. | | | | | e | | tablet | | | | | | | + + + +---------+------+------+-------+ | FERROUS GLUCONATE | Take 27 mg by mouth | | 0 | | | Activ | | PO | Daily. | | | | | e | + + + +---------+------+------+-------+ | POTASSIUM CHLORIDE | Take 20 mEq by | | 0 | | | Activ | | REENA ER PO | mouth. | | | | | e | + + + +---------+------+------+-------+ Active Problems + + + | Problem | Noted Date | + + + | Lichen sclerosus | 11/01/2016 | + + + + + | Overview: ACTIVE DIAGNOSIS: Lichen Sclerosis of the Vulva.1. | | Presentation with Dyspareunia in February 2010.2. PAP and vulvar | | biopsy March 19, 2010 ([facility]). Pathological specimens; PAP | | #[id number] "negative for intraepithelial lesions or malignancy." | | Biopsy #[id number] "freatures consistent with lichen | | sclerosis."3. Treatment with clobetasol 0.05% with improvement.4. | | Consultation by Dr. Rossana Knowles, June 2016-[facility] | | sclerosis exacerbated by urinary and fecal incontinence. | + + + + + | Rectal cancer | 10/01/2016 | + + + + + | Overview: ACTIVE DIAGNOSIS: Locally Advanced Rectal Cancer, | | [id number], Stage IIA. Willie Barajas presented to the [facility] emergency room on July 20, 2016 [...] bowel. The patient was promptly evaluated by . | | Marty Thacker who immediately performed [...] the rectum. Biopsy specimen number | | [id number] evaluated by Dr. Felipe Nixon of [place] [place] | | Pathology was notable for a tubular adenoma without high-grade | | dysplasia or overt carcinoma. This procedure also included a | | full colonoscopy through the ostomy were 2 additional polyps were | | removed, a tubular adenoma at 35 cm and a hyperplastic polyp at | | [address] C/A/P at [facility] in [place], [place] | | demonstrated no evidence of metastatic disease.4. On September 22 | | 2016 Dr. Thacker placed in internal jugular Port-A-Cath without | | complications.5. MRI of pelvis performed on October 05, 2016 at | | [facility]: Rectal mass 7.7 cm x 6.2 cm x 9.6 cm in length located | | within 3 cm of the anal sphincter and 6.4 cm from the anal verge | | with radiographic extension though multiple areas of the bowel | | wall.6. CT abdomen/pelvis also at [facility] October 05, 2016; large | | almost completely circumferential rectosigmoid mass better | | delineated on the corresponding MRI with adjacent probable | | abscess. No distant metastases identified.7. On October 14, 2016 | | Jenn was evaluated by Dr. Ailyn Wolff and Dr. Shea Mcneill of the | | [facility] where her case was presented | | to their tumor board. Clinical exam is notable for an overt | | rectal carcinoma invading into the vagina. 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 Concerns raised by the [facility] | | [facility] Tumor Board were that the prior [...] as mutation analysis." | | Pathological Specimen #[id number] (Linwood Nixon | | Pathology). Tubulovillous adenoma [...] | mass including multiple exophytic components.13. December 31, | | 2016-February 17, 2017; combined modality chemoradiation therapy with | | CIVI 5FU at 225 mg/m /day given concurrently with 4500 cGy of | | external beam radiation.14. Multidisciplinary Care Team | | Conference at [facility] March 10, 2017; "Given borderline | | [...] Dr. Ailyn Wolff at the | | [facility]: 06/30/17: Exploratory laparotomy. Extensive lysis of | | adhesions. Excision of left lower quadrant fistula tract. Total | | mesorectal excision, intersphincteric abdominoperineal resection, | | en bloc resection of left ovary and left fallopian tube and | | posterior vaginal wall. Placement of a 19-Divehi Albert drain | | through the right [...] exam | | on August 12, 2017; [facility], [place], | | [place]; positive for perianal fistula between anus and vagina.22. | | Clinical exam on August 22, [address] Ailyn Wolff at [facility] who could | | not confirm the presence of perianal fistula.23. Cycle # 11 | | FOLFOX on August 23, 2017.24. Cycle #12 FOLFOX on September 05, | | 2017.25. Port-a-cath removed by Dr. Marty Thacker.26. CT | | chest/abdomen/pelvis ([facility], [place]) on September 26, 2017; marked | | reduction of large central rectal/perirectal mass, very small | | residual fluid collection with adjacent fat stranding which may | | represent short residual Velasquez's pouch, residual postoperative | | fluid or residual necrotic tumor.27. MRI of pelvis September 28, 2017 | | ([facility], [place], [place]); Small gas and fluid collection in the | | presacral space, concerning for abscess formation. Postoperative | | changes of low anterior resection, with left lower quadrant end | | colostomy. Left lower quadrant parastomal hernia. Last | | Assessment & Plan: Jenn Parada returned to clinic on | | 01/02/2018 with a gas line repairer for follow up of her locally advanced | | rectal cancer.Interval history is notable for the fact that | | Kirstie electively removed Jenn's port-a-cath.Interval history is | | also notable for the fact that Jenn had an encounter with her | | surgeon, Dr. Ailyn Wolff at [facility]. Dr. Wolff has asked Jenn to follow up | | with him in [place] every three months.Assessment; Locally | | advanced rectal cancer, status post 10 cycles of neoadjuvant | | FOFLOX, followed by definitive surgery on May 16, 2017, | | followed by two adjuvant cycles of FOLFOX completed on August | | 2017.Plan; Jenn will follow up with Dr. Wolff in [place] every | | three months. Currently, follow-up in medical oncology is open. | + + Encounters +--------+ + + + + | Date | Type | Specialty | Care Team | Description | +--------+ + + + + | 04/12/ | Telephone | Neurology | Mychal Andre, | Medication Orders | | 2018 | | | | | +--------+ + + + + | 03/05/ | Telephone | Oncology | Janel, | Patient Concerns | | 2018 | | | Mike White MD | | +--------+ + + + + [...] | Body Mass Index | 31.6 | 10/18/2016 1104 PDT | + + + + Plan [...] | + + + + + | Breast Cancer | | | | | Screening | 4 | | | + + + + + | Lung Cancer | | 01/03/2017, 09/17/2016 | | | Screening | 8 | | | + + + + + | Vaccine: Influenza | | 05/10/2018, 08/06/2017 | | | (#1) | 9 | | | + + + + + Results Not on filefrom Last 3 Months Insurance + +--------+ +--------+ +---------+--------+ | Payer | Benefi | Subscriber | Effect | Phone | Address | Type | | | t Plan | ID | mery | | | | | | / | | Dates | | | | | | Group | | | | | | + +--------+ +--------+ +---------+--------+ | [employer] | [employer] | [id number] | | [phone] | | Medica | | MEDICAID HMO | HEALTH | | [id number] | 1 | | id | | | MDCD | | esent | | | | | | [place] | | | | | | + +--------+ +--------+ +---------+--------+ + +--------+ +--------+ + + | Guarantor Name | Accoun | Relation to | Date | Phone | Billing Address | | | t Type | Patient | of | | | | | | | | | | + +--------+ +--------+ + + | Jenn Parada | Person | Self [birth year] [address] | | | al/Fam | | 1961 | [id number] | | | [place] | | | [address] (Home) | [place] [address] | + +--------+ +--------+ + + Advance Directives Patient has advance care planning documents on file. For more information, please contact:Marcus Located within [facility] [place] [address]
--- OUTSIDE RECORDS SUMMARY | ~2019-05-24 | XMS | Encounter Summary ---
Demographics + + + | Address | [address] | | | [place] [address] | + + + | Home Phone [...] Team Providers + +------+ + | Care Splicer Helper Name | Role | Phone | + +------+ + | Kristian Anderson DO | PCP | | + +------+ + Reason for Visit Diagnostic Testing (Routine) [...] | | | | Pre-operativ | [address] | | | | | | [address] | [address] | | | | | | cardiovascul | [place], | | | | | | [place] | [place] | | | | | | examination | [address] | | | | | | Tobacco | Phone: | | | | | | abuse | [phone] | | | | | | Dyspnea, | Fax: | | | | | | unspecified | [phone] | | | | | | type [...] | +--------+ + + + + | 10/06/ | Hospital | Cardiac | | | | 2016 | Encounter | Non-Invasive Testing | | | | | | at [facility] [address] | | | | | | [address] Mailcode: | | | | | | [facility], | | | | | | [address] | | | | | | [place], [place] | | | | | | [address] | | | | | | [phone] | | | +--------+ + + + [...] + + + | Blood Pressure | - | - | | + + + + + | Pulse | - | - | | + + + + + | Temperature | - | - | | + [...] 64.3 kg (141 lb 12.8 | 10/06/2016 10:42 AM | | | | oz) | PDT | | + + + + + | Height | 160 cm (5' 3") | 10/06/2016 10:42 AM | | | | | PDT | | + + + + + | Body Mass Index | 25.12 | 10/06/2016 10:42 AM | | | | | PDT | | + + + + + documented in this encounter Progress Notes Isaiah Min - 10/06/2016 11:58 AM PDTDobutamine stress echocardiogram completed. Final rep ort to follow. Romelia Raymundo RN - 10:43 AM PDTAt 1050, prior to the beginning of the procedure, the team paused to francisco dilip the patient s identity, the procedure to be performed (in accordance with the consent, ) Consent was signed by the patient. IV infiltrated @ 30mcg. New site restarted, brief delay in infusion. States had neck pain a 6/10 @ peak which quickly resolved with Esmolol. . Had multiple arry thmias at peak HR which quickly resolved in recovery. IV dc'd, angio intact. Discharged home ambulatory with sister and family; pain free; Aler t and oriented x's 3, Skin w/d/pink, breathing even and unlabored. VSS documented in thi s encounter Plan of Treatment +--------+---------+ + + + | Date | Type | Specialty | Care Team | Description | +--------+---------+ + + + | 06/18/ | Office | Surgery | Ailyn Wolff MD | | | 2018 | Visit | | [address] | | | | | | [place], | | | | | | [place] [address] | | | | | | [phone] | | | | | | | [...] + | Diagnosis | + + | Pre-operative cardiovascular examination | + + | Tobacco abuse Tobacco use disorder | + + | Dyspnea, unspecified type | + + | Aortic systolic murmur on examination | + + documented in this encounter Administered Medications + +--------+ +--------+------+------+ | Medication Order | MAR | Action | Dose | Rate | Site | | | Action | Date | | | | + +--------+ +--------+------+------+ | atropine injection 0.3-0.4 mg | Given | 10/07/19 | 0.4 mg | | | | 0.3-0.4 mg, intravenous, | | 17 11:22 | | | | | INTRAPROCEDURE PRN, Starting Wed | | AM PDT | | | | | 10/06/16 at 1042, Until Wed | | | | | | | 10/06/16 at 1241, per dobutamine | | | | | | | stress echo protocol | | | | | | + +--------+ +--------+------+------+ +-------+ +--------+---+---+ | Given | 10/07/19 | 0.3 mg | | | | | 17 11:19 | | | | | | AM PDT | | | | +-------+ +--------+---+---+ +---+---+ | | | +---+---+ + + + + +--------+---+ | DOBUTamine (DOBUTREX) 500 | Rate/Dos | 10/07/19 | 40 | 77.16 | | | mg/250 mL (2 mg/mL) IV infusion | e Change | 17 11:32 | mcg/kg/m | mL/hr | | | (RTU) 5-50 mcg/kg/min | | AM PDT | in | | | | 64.3 kg (9.645-96.45 mL/hr, | | | | | | | rounded to 9.65-96.45 mL/hr), | | | | | | | intravenous, INTRAPROCEDURE | | | | | | | CONTINUOUS PRN, Starting Wed | | | | | | | 10/06/16 at 1042, Until Wed | | | | | | | 10/06/16 at 1241, per DOBUTamine | | | | | | | stress echo protocol | | | | | | + + + + +--------+---+ + + + +--------+---+ | Rate/Dose Change | 10/07/19 | 30 | 57.87 | | | | 17 11:21 | mcg/kg/m | mL/hr | | | | AM PDT | in | | | + + + +--------+---+ | Rate/Dose Change | 10/07/19 | 20 | 38.58 | | | | 17 11:18 | mcg/kg/m | mL/hr | | | | AM PDT | in | | | + + + +--------+---+ +---+---+ | | | +---+---+ + +-------+ +-------+---+---+ | esmolol (BREVIBLOC) injection | Given | 03/15/20 | 20 mg | | | | 10-30 mg 10-30 mg, intravenous, | | 17 11:37 | | | | | INTRAPROCEDURE PRN, Starting Wed | | AM PDT | | | | | 10/06/16 at 1042, Until Wed | | | | | | | 10/06/16 at 1241, per dobutamine | | | | | | | stress echo protocol | | | | | | + +-------+ +-------+---+---+ +---+---+ | | | +---+---+ + +-------+ +--------+---+---+ | perflutren lipid microspheres | Given | 10/07/19 | 1.5 mL | | | | (DEFINITY) injection 1.5 mL 1.5 | | 17 11:00 | | | | | mL, intravenous, INTRAPROCEDURE | | AM PDT | | | | | PRN, Starting Tue10/06/16 at | | | | | | | 1042, Until Tue10/06/16 at 1241, | | | | | | | image acquisition | | | | | | + +-------+ +--------+---+---+ +---+---+ | | | +---+---+ documented in this encounter
--- OUTSIDE RECORDS SUMMARY | ~2019-05-24 | XMS | Encounter Summary ---
Demographics + + + | Address | [address] | | | [place] [address] | + + + | Home Phone [...] Team Providers + +------+ + | Care Debridging Machine Operator Name | Role | Phone [...] + + + + | 06/30/ | Anesthesia | 6A Intra Op [facility] | Gerry Mnedez | | | 2016 | Event | [facility] | MD Brock [address] | | | | | Admitting Desk | [address] | | | | | Located on the 9 | [place], [place] | | | | | [facility] [address] | [address] | | | | | [address] | [phone] | | | | | [place], [place] | | | | | | [address] | [facility]ena [facility] | | | | | | LASHAWN Loja [address] | | | | | | [address] | | | | | | [place], [place] | | | | | | [address] | | | | | | [phone] | | | | | | | | +--------+ + + + + Anesthesia Record + + + + + | Procedure Name | Responsible | Anesthesia Start | Anesthesia Stop Time | | | Anesthesiologist | Time | | + + + + + | LOW ANTERIOR | Gerry Mendez, | 06/30/17720 | 06/30/17 3235 | | RESECTION, POSTERIOR | MD | [...] | Meds | +------+ + + + | Name | Total | + + + | midazolam | 2 mg | + + + | fentaNYL | 400 mcg | + + + | ertapenem (INVANZ) 1,000 mg in | 1,000 mg | | NaCl 0.9 % IV | | + + + | PHENYLEPHrine | 1,000 mcg | + + + | ertapenem | 1,000 mg | + + + | lidocaine 2% | 100 mg | + + + | propofol | 170 mg | + + + | rocuronium | 200 mg | + + + | dexamethasone | 8 mg | + + + | ePHEDrine | 25 mg | + + + | ondansetron | 4 mg | + + + | bupivacaine 0.25% | 7 mL | + + + | neostigmine | 4 mg | + + + | glycopyrrolate | 0.6 mg | + + + | LR | 4,900 mL | + + + | NS | 700 mL | + + + + + | Name | + + | O2 FR Avance (Total Liters) | + + | Air FR Avance (l/min) | + + | Insp Sevo | + + | Et Sevo | + + | Insp Iso | + + | Et Iso | + + | Insp N2O % | + + | O2 Flow Rate (Total Liters) | + + + + | No blood administrations on file. | + + +--------+ + + + | Type | Details | Placement | Removal | +--------+ + + + | Port/P | Right; Chest portacath; Single; | 06/30/17725 by | | | ortaca | No | | | | th | | | | +--------+ + + + | Incisi | 06/30/17; perirectal | 06/30/17 0000 by | | | on | | Lynda Tompkins RN | | +--------+ + + + | Incisi | 06/30/17; 942; Anterior, | 06/30/17942 by | | | on | Midline; [...] Left; | 06/30/17 0000 by | 07/05/17 161 by | | | Lower, Lateral; abdomen; | Jessica Sullivan RN | Zeny Dunn RN | | | 07/05/17; 161; (removed by | | | | | Green Surgery team) | | | +--------+ + + + | Epidur | 06/30/17; Lumbar; 07/04/17; 819; | 06/30/17 0000 by | 07/04/17 0820 [...] | | IV | 07/02/17; 1217 | MACHINING SUPERVISOR | | +--------+ + + + | [...] | | | | | Amita Hines [place], | | | | | | [place] [address] | | | | | | [phone] | | | | | | | | +--------+---------+ + + + documented as of this encounter Procedures + +--------+ + + + | Procedure Name | Priori | Date/Time | Associated Diagnosis | Comments | | | ty | | | | + +--------+ + + + | ANE EPIDURAL | Routin | 06/30/2017 | | Results for this | | | e | 1:31 PM | | procedure are in the | | | | PST | | results section. | + +--------+ + + + | TONI ETT | Routin | 06/30/2017 | | Results for this | | | e | 9:00 AM | | procedure are in the | | | | PST | | results section. | + +--------+ + + + documented in this encounter Results TONI EPIDURAL (06/30/2017 1:31 PM PST) + + + | Narrative | Performed At | + + + | [facility] CRNA 06/30/2017 1:37 PM PROCEDURE NAME | | | Epidural or Caudal Information Epidural . Have received and | | | accepted request from attending surgeon to offer advanced acute pain | | | management services to the patient Location performed: Pre-Op | | | The patient was identified, the site marked,, full PARQ done Adult | | | or Pediatric: Adult Procedure Patient position: Sitting, | | | Epidural approach: Midline, Monitors: NIBP, SpO2 and EKG, | | | Supplemental Oxygen Given, Sterile prep (ChloraPrep) drape and | | | technique Technology Used: None Needle Tuohy with a 17g | | | Catheter depth 12 cm Depth at loss of resistance 6.5 cm on the | | | 4th attempt Parasthesia: No. Negative for blood. Vertebral | | | Interspace: L1-2 CSF: Aspiration negative for CSF, Sensory | | | Band:Side: bilateral, Tested: Temperature sensation to cold spray, | | | Upper Level: T10, Lower Band:L2 OTIS: saline Assessment test | | | dose given, Negative test dose reaction See MAR for Drug and Dose | | | Complications: None, Technical Difficulty: Difficult Intended | | | Analgesia: Satisfactory block in appropriate fashion Sensory | | | Assessment: Decreased in area of block Motor Assessment: Deferred; | | | Narrative Attending physically present SUPRIYA KO | | | IPerformed by MACHINING SUPERVISOR: LA NENA DOMÍNGUEZ Attempt X2 by LASHAWN. | | | Attempt X2 by attending | | + + + ANE ETT (06/30/2017 9:00 AM PST) + + + | Narrative | Performed At | + + + | [facility] CRNA 06/30/2017 9:14 AM Procedure | | | Reason for Intubation: For surgical procedure, Location Performed: [place] | | | , Patient was preoxygenated Mask Ventilation Grade 1 - Ventilated | | | by mask Intubation Blade type: Zarate , Blade size: 2, Atraumatic | | | laryngoscopy: Atraumatic Laryngoscopy, Intubation adjuncts: N/A , | | | Laryngoscopic view: Grade II, Fiberoptics used: N/A , Number of | | | Attempts: 1, Positive for EtCO2: Yes, Breath sounds: Bilateral and | | | equal ETT Ett Adult: Single-lumen cuffed ETT Size: 7 ETT | | | secured with: adhesive tape Depth at Gums: 22 Cm Airway leak: | | | No Narrative Attending physically present Performed by | | | Mik ARTEAGA. Neck positioned to comfort by patient, remained | | | neutral through induction. | | + + + documented in this encounter Visit Diagnoses Not on filedocumented in this encounter Administered Medications + +--------+ +------+------+------+ | Medication Order | MAR | Action | Dose | Rate | Site | | | Action | Date | | | | + +--------+ +------+------+------+ | bupivacaine (PF) | Given | 06/30/20 | 4 mL | | | | (MARCAINE,SENSORCAINE-MPF) 0.25 % | | 17 4:50 | | | | | (2.5 mg/mL) injection | | PM PST | | | | | INTRAPROCEDURE PRN, Starting Marlyn | | | | | | | 06/30/17 at 1625, Until Marlyn | | | | | | | 06/30/17 at 1712 | | | | | | + +--------+ +------+------+------+ +-------+ +------+---+---+ | Given | 06/30/20 | 3 mL | | | | | 17 4:25 | | | | | | PM PST | | | | +-------+ +------+---+---+ +---+---+ | | | +---+---+ + +-------+ +------+---+---+ | dexamethasone (DECADRON) | Given | 06/30/20 | 8 mg | | | | injection INTRAPROCEDURE PRN, | | 17 8:57 | | | | | Starting Marlyn 06/30/17 at 0857, | | AM PST | | | | | Until Marlyn 06/30/17 at 1712 | | | | | | + +-------+ +------+---+---+ +---+---+ | | | +---+---+ + +-------+ +-------+---+---+ | ePHEDrine injection | Given | 06/30/20 | 10 mg | | | | intravenous, INTRAPROCEDURE PRN, | | 17 5:30 | | | | | Starting Marlyn 06/30/17 at 0845, | | PM PST | | | | | Until Marlyn 06/30/17 at 1712 | | | | | | + +-------+ +-------+---+---+ +-------+ +------+---+---+ | Given | 06/30/20 | 5 mg | | | | | 17 4:32 | | | | | | PM PST | | | | +-------+ +------+---+---+ | Given | 06/30/20 | 5 mg | | | | | 17 9:45 | | | | | | AM PST | | | | +-------+ +------+---+---+ +---+---+ | | | +---+---+ + +---------+ + +---+---+ | ertapenem (INVANZ) 1,000 mg in | New Bag | 06/30/20 | 1,000 mg | | | | NaCl 0.9 % IV 1,000 mg, | | 17 8:16 | | | | | intravenous, ONCE, 1 dose, Marlyn | | AM PST | | | | | 06/30/17 at 0545 | | | | | | + +---------+ + +---+---+ +---+---+ | | | +---+---+ + +-------+ + +---+---+ | ertapenem (INVANZ) injection | Given | 06/30/20 | 1,000 mg | | | | INTRAPROCEDURE PRN, Starting Marlyn | | 17 8:16 | | | | | 06/30/17 at 0816, Until Marlyn | | AM PST | | | | | 06/30/17 at 1712 | | | | | | + +-------+ + +---+---+ +---+---+ | | | +---+---+ + +-------+ +--------+---+---+ | fentaNYL citrate (PF) | Given | 06/30/20 | 50 mcg | | | | (SUBLIMAZE) injection | | 17 4:17 | | | | | INTRAPROCEDURE PRN, Starting Marlyn | | PM PST | | | | | 06/30/17 at 0722, Until Marlyn | | | | | | | 06/30/17 at 1712 | | | | | | + +-------+ +--------+---+---+ +-------+ +---------+---+---+ | Given | 06/30/20 | 100 mcg | | | | | 17 4:00 | | | | | | PM PST | | | | +-------+ +---------+---+---+ | Given | 06/30/20 | 50 mcg | | | | | 17 12:45 | | | | | | PM PST | | | | +-------+ +---------+---+---+ +---+---+ | | | +---+---+ + +-------+ +--------+---+---+ | glycopyrrolate (NIK) | Given | 06/30/20 | 0.6 mg | | | | injection INTRAPROCEDURE PRN, | | 17 4:57 | | | | | Starting Marlyn 06/30/17 at 1657, | | PM PST | | | | | Until [facility] 06/30/17 at 1712 | | | | | | + +-------+ +--------+---+---+ +---+---+ | | | +---+---+ + + + +---+---+---+ | lactated Ringers IV | given by | 06/30/20 | | | | | INTRAPROCEDURE CONTINUOUS PRN, | | 17 4:15 | | | | | Starting Marlyn 06/30/17 at 0655, | anesthes | PM PST | | | | | Until [facility] 06/30/17 at 1712 | iology | | | | | + + + +---+---+---+ + + +---+---+---+ | given by anesthesiology | 06/30/20 | | | | | | 17 3:53 | | | | | | PM PST | | | | + + +---+---+---+ | New Bag | 06/30/20 | | | | | | 17 3:45 | | | | | | PM PST | | | | + + +---+---+---+ +---+---+ | | | +---+---+ + +-------+ +--------+---+---+ | lidocaine (XYLOCAINE MPF) 2 % | Given | 06/30/20 | 100 mg | | | | (20 mg/mL) injection | | 17 8:09 | | | | | INTRAPROCEDURE PRN, Starting Marlyn | | AM PST | | | | | 06/30/17 at 0809, Until Marlyn | | | | | | | 06/30/17 at 1712 | | | | | | + +-------+ +--------+---+---+ +---+---+ | | | +---+---+ + +-------+ +------+---+---+ | midazolam (VERSED) injection | Given | 06/30/20 | 1 mg | | | | INTRAPROCEDURE PRN, Starting Marlyn | | 17 7:42 | | | | | 06/30/17 at 0722, Until Marlyn | | AM PST | | | | | 06/30/17 at 1712 | | | | | | + +-------+ +------+---+---+ +-------+ +------+---+---+ | Given | 06/30/20 | 1 mg | | | | | 17 7:22 | | | | | | AM PST | | | | +-------+ +------+---+---+ +---+---+ | | | +---+---+ + +-------+ +------+---+---+ | neostigmine (PROSTIGMIN) | Given | 06/30/20 | 4 mg | | | | injection intravenous, | | 17 4:57 | | | | | INTRAPROCEDURE PRN, Starting Marlyn | | PM PST | | | | | 06/30/17 at 1657, Until Marlyn | | | | | | | 06/30/17 at 1712 | | | | | | + +-------+ +------+---+---+ +---+---+ | | | +---+---+ + +-------+ +------+---+---+ | ondansetron (ZOFRAN) injection | Given | 06/30/20 | 4 mg | | | | INTRAPROCEDURE PRN, Starting Marlyn | | 17 3:55 | | | | | 06/30/17 at 1555, Until Marlyn | | PM PST | | | | | 06/30/17 at 1712 | | | | | | + +-------+ +------+---+---+ +---+---+ | | | +---+---+ + +-------+ +--------+---+---+ | PHENYLEPHrine 100 mcg/mL IV | Given | 06/30/20 | 50 mcg | | | | syringe INTRAPROCEDURE PRN, | | 17 5:00 | | | | | Starting Marlyn 06/30/17 at 0821, | | PM PST | | | | | Until Marlyn 06/30/17 at 1712 | | | | | | + +-------+ +--------+---+---+ +-------+ +--------+---+---+ | Given | 06/30/20 | 50 mcg | | | | | 17 4:32 | | | | | | PM PST | | | | +-------+ +--------+---+---+ | Given | 06/30/20 | 50 mcg | | | | | 17 2:16 | | | | | | PM PST | | | | +-------+ +--------+---+---+ +---+---+ | | | +---+---+ + +-------+ +-------+---+---+ | propofol INTRAPROCEDURE PRN, | Given | 06/30/20 | 30 mg | | | | Starting [facility] 06/30/17 at 0809, | | 17 4:59 | | | | | Until Marlyn 06/30/17 at 1712 | | PM PST | | | | + +-------+ +-------+---+---+ +-------+ +--------+---+---+ | Given | 06/30/20 | 140 mg | | | | | 17 8:09 | | | | | | AM PST | | | | +-------+ +--------+---+---+ +---+---+ | | | +---+---+ + +-------+ +-------+---+---+ | rocuronium (ZEMURON) injection | Given | 06/30/20 | 10 mg | | | | INTRAPROCEDURE PRN, Starting Marlyn | | 17 3:30 | | | | | 06/30/17 at 0809, Until Marlyn | | PM PST | | | | | 06/30/17 at 1712 | | | | | | + +-------+ +-------+---+---+ +-------+ +-------+---+---+ | Given | 06/30/20 | 10 mg | | | | | 17 2:53 | | | | | | PM PST | | | | +-------+ +-------+---+---+ | Given | 06/30/20 | 10 mg | | | | | 17 2:49 | | | | | | PM PST | | | | +-------+ +-------+---+---+ +---+---+ | | | +---+---+ + + + +---+---+---+ | sodium chloride 0.9% IV | given by | 06/30/20 | | | | | infusion INTRAPROCEDURE | | 17 3:45 | | | | | CONTINUOUS PRN, Starting Marlyn | anesthes | PM PST | | | | | 06/30/17 at 1145, Until Marlyn | iology | | | | | | 06/30/17 at 1712 | | | | | | + + + +---+---+---+ +---------+ +---+---+---+ | New Bag | 06/30/20 | | | | | | 17 11:45 | | | | | | AM PST | | | | +---------+ +---+---+---+ +---+---+ | | | +---+---+ documented in this encounter"
--- OUTSIDE RECORDS SUMMARY | ~2019-05-24 | XMS | Encounter Summary ---
Demographics + + + | Address | [address] | | | [place] [address] | + + + | Home Phone [...] Team Providers + +------+ + | Care Curatorial Specialist Name | Role | Phone | + +------+ + | Kristian Anderson DO | PCP | | + +------+ + Reason for Visit + + + | Reason | Comments | + + + | Social Work Notes | Lodging | + + + Encounter Details +--------+ + + + + | Date | Type | Department | Care Team | Description | +--------+ + + + + | 06/27/ | Telephone | Radiation Oncology | Work, Social | Social Work Notes | | 2016 | | at [facility] [address] | | (Lodging) | | | | [address] | | | | | | [place] | | | | | | [place], [place] | | | | | | [address] | | | | | | [phone] | | | +--------+ + + + [...] | | | | | Amita Hines [place], | | | | | | [place] [address] | | | | | | [phone] | | | | | | | | +--------+---------+ + + + documented as of this encounter Visit Diagnoses Not on filedocumented in this encounter"
--- OUTSIDE RECORDS SUMMARY | ~2019-05-24 | XMS | Encounter Summary ---
Demographics + + + | Address | [address] | | | [place] [address] | + + + | Home Phone [...] Team Providers + +------+ + | Care Chair Car Driver Name | Role | Phone | [...] | Prescription | | 2016 | | [place] [address] | [address] | | | | | [address] | Amita Hines [place], | | | | | Mailcode: [place] | [place] [address] | | | | | for Health and | [phone] | | | | | [facility] 2 | | | | | | [place], [place] | | | | | | [address] | | | | | | [phone] | | | +--------+ + + + [...] | | 2019 | Visit | | [address] | | | | | | Amita Hines [place], | | | | | | [place] [address] | | | | | | [phone] | | | | | | | | +--------+---------+ + + + documented as of this encounter Visit Diagnoses Not on filedocumented in this encounter"
--- OUTSIDE RECORDS SUMMARY | ~2019-05-24 | XMS | Encounter Summary ---
Demographics + + + | Address | [address] | | | [place] [address] | + + + | Home Phone | | + + + | Preferred Language | Unknown | + + + | Marital Status | Single | + + + | Jainism Affiliation | NON | + + + [...] Team Providers + +------+ + | Care Dough Maker Name | Role | Phone | [...] | | 2017 | | Center at [facility] [address] | [address] | Review | | | | [address] | Amita Hines [place], | | | | | Mailcode: [place] | [place] [address] | | | | | for Health and | [phone] | | | | | [facility] 2 | | | | | | [place], [place] | | | | | | [address] | | | | | | [phone] | | | +--------+ + + + [...] | | | | | Amita Hines [place], | | | | | | [place] [address] | | | | | | [phone] | | | | | | | | +--------+---------+ + + + documented as of this encounter Visit Diagnoses Not on filedocumented in this encounter"
--- OUTSIDE RECORDS SUMMARY | ~2019-05-24 | XMS | Encounter Summary ---
Demographics + + + | Address | [address] | | | [place] [address] | + + + | Home Phone [...] Team Providers + +------+ + | Care Ukrainian Folk Arts Instructor Name | Role | Phone | [...] | | 2019 | | Center at [facility] [address] | [address] | Review | | | | [address] | Amita Hines [place], | | | | | Mailcode: [place] | [place] [address] | | | | | for Health and | [phone] | | | | | [facility] 2 | | | | | | [place], [place] | | | | | | [address] | | | | | | [phone] | | | +--------+ + + + [...] | | | | | Amita Hines [place], | | | | | | [place] [address] | | | | | | [phone] | | | | | | | | +--------+---------+ + + + documented as of this encounter Visit Diagnoses Not on filedocumented in this encounter"
--- OUTSIDE RECORDS SUMMARY | ~2019-05-24 | XMS | Encounter Summary ---
Demographics + + + | Address | [address] | | | [place] [address] | + + + | Home Phone | | + + + | Preferred Language | Unknown | + + + | Marital Status | Single | + + + | Christian Affiliation | NON | + + + [...] Team Providers + +------+ + | Care Costume Shop Coordinator Name | Role | Phone | [...] | | | | [facility] | [place], [place] | | | | | [place] [address] | [address] | | | | | [place], [place] | | | | | | [address] | | | | | | [phone] | | | +--------+ + + + [...] | | 2019 | Visit | | [address] | | | | | | Amita Hines [place], | | | | | | [place] [address] | | | | | | [phone] | | | | | | | | +--------+---------+ + + + documented as of this encounter Visit Diagnoses Not on filedocumented in this encounter"
--- OUTSIDE RECORDS SUMMARY | ~2019-05-24 | XMS | Encounter Summary ---
Demographics + + + | Address | [address] | | | [place] [address] | + + + | Home Phone [...] + + + | Author | [facility] | + + + | Organization | [facility] | + + + | Address | Unknown | + + + | Phone | Unavailable | + + + Support + + +---------+ + | Name | Relationship | Address | Phone | + + +---------+ + | Darrius Quintana | ECON | Unknown | | + + +---------+ + Care Team Providers + +------+ + | Care Kosher Dietary Service Supervisor Name | Role | Phone | + +------+ + | Kristian Anderson DO | PCP | | + +------+ + Encounter Details +--------+ + + + + | Date | Type | Department | Care Team | Description | +--------+ + + + + | 10/05/ | Abstract | Digestive Health | Ailyn Wolff MD | | | 2017 | | [place] at [facility] [address] | [address] | | | | | [address] | Amita Hines [place], | | | | | Mailcode: [place] | [place] [address] | | | | | [facility] and | [phone] | | | | | [facility] 2 | | | | | | [place], [place] | | | | | | [address] | | | | | | [phone] | | | +--------+ + + + [...] | | | | | [place], | | | | | | [place] [address] | | | | | | [phone] | | | | | | | | +--------+---------+ + + + documented as of this encounter Visit Diagnoses Not on filedocumented in this encounter"
--- OUTSIDE RECORDS SUMMARY | ~2019-05-24 | XMS | Encounter Summary ---
Demographics + + + | Address | [address] | | | [place] [address] | + + + | Home Phone [...] Team Providers + +------+ + | Care Scraper Hand Name | Role | Phone | + +------+ + | Justin Kristian | PCP | | + +------+ + Reason for Visit + + + | Reason | Comments | + + + | Outside Records | Images requested 10/24/16 [facility] | | Received | | + + + Encounter Details +--------+ + + + + | Date | Type | Department | Care Team | Description | +--------+ + + + + | 03/16/ | Telephone | Digestive Health | Ailyn Wolff MD | Outside Records | | 2017 | | Center at [facility] [address] | [address] | Received (Images | | | | [address] | Park [facility], | requested 10/24/16 | | | | Mailcode: [place] | [place] [address] | [facility]) | | | | for Health and | [phone] | | | | | [facility] 2 | | | | | | [place], [place] | | | | | | [address] | | | | | | [phone] | | | +--------+ + + + [...] | | | | | Amita Hines [place], | | | | | | [place] [address] | | | | | | [phone] | | | | | | | | +--------+---------+ + + + documented as of this encounter Visit Diagnoses Not on filedocumented in this encounter"
--- OUTSIDE RECORDS SUMMARY | ~2019-05-24 | XMS | Encounter Summary ---
Demographics + + + | Address | [address] | | | [place] [address] | + + + | Home Phone [...] Team Providers + +------+ + | Care Jazz Singer Name | Role | Phone | + +------+ + | Justin Kristian | PCP | | + +------+ + Encounter Details +--------+ + + + + | Date | Type | Department | Care Team | Description | +--------+ + + + + | 09/22/ | Procedure | [facility] | | | | 2017 | Pass | [place] at | | | | | | [place] [address] | | | | [address] | | | | | | [place], [place] | | | | | | [address] | | | | | | [phone] | | | +--------+ + + + [...] | | | | | Amita Hines [place], | | | | | | [place] [address] | | | | | | [phone] | | | | | | | | +--------+---------+ + + + documented as of this encounter Visit Diagnoses Not on filedocumented in this encounter"
--- OUTSIDE RECORDS SUMMARY | ~2019-05-24 | XMS | Encounter Summary ---
Demographics + + + | Address | [address] | | | [place] [address] | + + + | Home Phone [...] Author + + + | Author | [facility] | + + + | Organization | [facility] | + + + | Address | Unknown | + + + | Phone | Unavailable | + + + Support + + +---------+ + | Name | Relationship | Address | Phone | + + +---------+ + | Darrius Quintana | ECON | Unknown | | + + +---------+ + Care Team Providers + +------+ + | Care Oyster Shucker Name | Role | Phone | + +------+ + | Kristian Anderson DO | PCP | | + +------+ + Encounter Details +--------+ + + + + | Date | Type | Department | Care Team | Description | +--------+ + + + + | 01/03/ | Document-Sc | Health Information | Unknown . | | | 2017 | anned | Services [address] | | | | | | [address] | | | | | | Mailcode: OP17A | | | | | | [facility] | | | | | | [place], [place] | | | | | | [address] | | | | | | [phone] | | | +--------+ + + + [...] | | | | | | [place] [address] | | | | | | [phone] | | | | | | | | +--------+---------+ + + + documented as of this encounter Procedures + +--------+ + + + | Procedure Name | Priori | Date/Time | Associated Diagnosis | Comments | | | ty | | | | + +--------+ + + + | RADIOLOGY | | 01/03/2018 | | Results for this | | [...] + documented in this encounter Results RADIOLOGY (01/03/2018 12:00 AM PDT) + + + | [...]
--- OUTSIDE RECORDS SUMMARY | ~2019-05-24 | XMS | Encounter Summary ---
Demographics + + + | Address | [address] | | | [place] [address] | + + + | Home Phone [...] Team Providers + +------+ + | Care Bail Bond Agent Name | Role | Phone | + +------+ + | Kristian Anderson DO | PCP | | + +------+ + Encounter Details +--------+ + + + + | Date | Type | Department | Care Team | Description | +--------+ + + + + | 11/21/ | Hospital | Wound and Ostomy | Delores Avilez, | | | 2017 | Encounter | Care [address] | RN, CWOCN [address] | | | | [address] | [address] | | | | | [facility] | [place], [place] | | | | | [place] [address] | [address] | | | | | [place], [place] | | | | | | [address] | | | | | | [phone] | | | +--------+ + + + [...] Colostomy | 1 each | 11 | 05/29/20 | | | misc | [id number]: CO | | | 18 | | | | [id number], Skin prep: | | | | | | | 3M 3344 (30/mo), Adh | | | | | | | Rem HO 7760 | | | | | | | (1box/mo), Rings: HO | | | | | | | 8805 (10/mo), | | | | | | | Deodorant: [place] [address] | | | | | | | (60/mo), Pwdr: CT | | | | | | | [phone] (1oz/mo), | | | | | | | Belt: Lrg (2/mo) | | | | | | | and Irrigation CO | | | | | | | [id number], Sleeve CO | | | | | | | [id number] | | | | | + + [...] | | | | | | [place] [address] | | | | | | [phone] | | | | | | | | +--------+---------+ + + + documented as of this encounter Visit Diagnoses Not on filedocumented in this encounter"
--- OUTSIDE RECORDS SUMMARY | ~2019-05-24 | XMS | Encounter Summary ---
Demographics + + + | Address | [address] | | | [place] [address] | + + + | Home Phone [...] Providers + +------+ + | Care Water And Fire Technician Name | Role | Phone | + +------+ + | Kristian Anderson DO | PCP | | + +------+ + Encounter Details +--------+ + + + + | Date | Type | Department | Care Team | Description | +--------+ + + + + | 06/01/ | MyChart | Wound and Ostomy | Delores Avilez, | [place] | | 2018 | Encounter | Care [address] | RN, CWOCN [address] | | | | | [address] | [address] | | | | | [facility] | [place], [place] | | | | | [place] [address] | [address] | | | | | [place], [place] | | | | | | [address] | | | | | | [phone] | | | +--------+ + + + [...] | | | | | Amita Hines [place], | | | | | | [place] [address] | | | | | | [phone] | | | | | | | | +--------+---------+ + + + documented as of this encounter Visit Diagnoses Not on filedocumented in this encounter"
--- OUTSIDE RECORDS SUMMARY | ~2019-05-24 | XMS | Encounter Summary ---
Demographics + + + | Address | [address] | | | [place] [address] | + + + | Home Phone [...] Team Providers + +------+ + | Care Staff Mechanical Engineer Name | Role | Phone | [...] | | 2018 | | Center at [facility] [address] | [address] | and Ostomy Nurse) | | | | [address] | Amita Hines [place], | | | | | Mailcode: [place] | [place] [address] | | | | | for Health and | [phone] | | | | | [facility] 2 | | | | | | [place], [place] | | | | | | [address] | | | | | | [phone] | | | +--------+ + + + [...] | | | | | | [place] [address] | | | | | | [phone] | | | | | | | | +--------+---------+ + + + documented as of this encounter Visit Diagnoses Not on filedocumented in this encounter"
--- OUTSIDE RECORDS SUMMARY | ~2019-05-24 | XMS | Encounter Summary ---
Demographics + + + | Address | [address] | | | [place] [address] | + + + | Home Phone [...] Team Providers + +------+ + | Care Desk Pen Set Assembler Name | Role | Phone | [...] | | 2017 | | Center at [facility] [address] | [address] | Review | | | | [address] | Amita Hines [place], | | | | | Mailcode: [place] | [place] [address] | | | | | for Health and | [phone] | | | | | [facility] 2 | | | | | | [place], [place] | | | | | | [address] | | | | | | [phone] | | | +--------+ + + + [...] | | | | | Amita Hines [place], | | | | | | [place] [address] | | | | | | [phone] | | | | | | | | +--------+---------+ + + + documented as of this encounter Visit Diagnoses Not on filedocumented in this encounter"
--- OUTSIDE RECORDS SUMMARY | ~2019-05-24 | XMS | Encounter Summary ---
Demographics + + + | Address | [address] | | | [place] [address] | + + + | Home Phone [...] Team Providers + +------+ + | Care Auto Tire Recapper Name | Role | Phone | + +------+ + | Kristian Anderson DO | PCP | | + +------+ + Encounter Details +--------+ + + + + | Date | Type | Department | Care Team | Description | +--------+ + + + + | 09/22/ | Telephone | Digestive Health | Ailyn Wolff MD | | | 2017 | | [place] at [facility] [address] | [address] | | | | | [address] | Amita Hines [place], | | | | | Mailcode: [place] | [place] [address] | | | | | for Health and | [phone] | | | | | [address] [address] | | | | | | [place], [place] | | | | | | [address] | | | | | | [phone] | | | +--------+ + + + [...] | | 2018 | Visit | | [address] | | | | | | Amita Hines [place], | | | | | | [place] [address] | | | | | | [phone] | | | | | | | [...] | PATHOLOGY | | | | Institution: [facility] | | | | | | [facility], | | | | | | [place], [place] | | | | | | [id number] Accession | | | | | | Number: [id number] | | | | | | Collection Date: | | | | | | 09/02/2016Sublabeled | | | | | | H&E A to D | | | | | | 4 | | | | | | Final Pathologic | | | | | | Diagnosis:Multiple | | | | | | specimens A to D | | | | | | ([id number]; 09/02/16):Low | | | | | | [...] | + + + + + | [facility] | [address] | [place] [address] | | | PATHOLOGY | [address] | | | + + + + + documented in this encounter Visit Diagnoses + + | Diagnosis | + + | Rectal cancer (HCC) - Primary Malignant neoplasm of rectum | + + documented in this encounter"
--- OUTSIDE RECORDS SUMMARY | ~2019-05-24 | XMS | Encounter Summary ---
Demographics + + + | Address | [address] | | | [place] [address] | + + + | Home Phone [...] + + + | Author | [facility] | + + + | Organization | [facility] | + + + | Address | Unknown | + + + | Phone | Unavailable | + + + Support + + +---------+ + | Name | Relationship | Address | Phone | + + +---------+ + | Darrius Quintana | ECON | Unknown | | + + +---------+ + Care Team Providers + +------+ + | Care Locator Name | Role | Phone | + [...] | | 2017 | | Center at [facility] [address] | [address] | Received | | | | [address] | Amita Hines [place], (Demographics) | | | | Mailcode: [place] | [place] [address] | | | | | for Health and | [phone] | | | | | [address] [address] | | | | | | [place], [place] | | | | | | [address] | | | | | | [phone] | | | +--------+ + + + [...] | | | | | Amita Hines [place], | | | | | | [place] [address] | | | | | | [phone] | | | | | | | | +--------+---------+ + + + documented as of this encounter Visit Diagnoses Not on filedocumented in this encounter"
--- OUTSIDE RECORDS SUMMARY | ~2019-05-24 | XMS | Encounter Summary ---
Demographics + + + | Address | [address] | | | [place] [address] | + + + | Home Phone | | + + + | Preferred Language | Unknown | + + + | Marital Status | Single | + + + | Sikh Affiliation | NON | + + + [...] Team Providers + +------+ + | Care Terrazzo Layer Name | Role | Phone | + +------+ + | Silvioct Kristian | PCP | | + +------+ + Reason for Visit + + + | Reason | Comments | + + + | Follow-up encounter | | + + + | Rectal cancer | | + + + Office Visit - E/M Services (Routine) + +--------+ + + + + | Status | Reason | Specialty | Diagnoses / | Referred By | Referred To | | | | | Procedures | Contact | Contact | + +--------+ + + + + | Pending | | Surgery | | Non-[facility] | [facility] | | Review | | | | Epic Dept | Surg [facility] | | | | | | | [address] | | | | | | [address] | | | | | | | Mailcode: | | | | | | | [place] for | | | | | | | Health and | | | | | | | Healing, | | | | | | | Building [address] | | | | | | | [place], [place] | | | | | | | [address] | | | | | | | Phone: | | | | | | | [phone] | | | | | | | Fax: | | | | | | | [phone] | + +--------+ + + + + Encounter Details +--------+---------+ + + + | Date | Type | Department | Care Team | Description | +--------+---------+ + + + | 11/27/ | Office | Digestive Health | Ailyn Wolff MD | Rectal cancer (HCC) | | 2019 | Visit | Center at [facility] [address] | [address] | (Primary Dx) | | | | [address] Brigitte [place]chola Suzy Hines [place], | | | | | Mailcode: [place] | [place] [address] | | | | | for Health and | [phone] | | | | | [facility] 2 | | | | | | [place], [place] | | | | | | [address] | | | | | | [phone] | | | +--------+---------+ + + + [...] + + + | Blood Pressure | 152/78 | 11/27/2018 9:44 AM | | | | | PDT | | + + + + + | Pulse | 98 | 11/27/2018 9:44 AM | | | | | PDT | | + + + + + | Temperature | 36.6 C (97.8 F) | 11/27/2018 9:44 AM | | | [...] + | Weight | 90.3 kg (199 lb) | 11/27/2018 9:44 AM | | | | | PDT | | + + + + + | Height | 160 cm (5' 3") | 11/27/2018 9:44 AM | | | | | PDT | | + + + + + | Body Mass Index | 35.25 | 11/27/2018 9:44 AM | | | [...] Instructions Patient Instructions Ailyn Wolff MD - 11/27/2018 9:40 AM PDTPlan: CEA today See me back in 3 months. documented in this encounter Progress Notes Ailyn Wolff MD - 11/27/2018 9:40 AM PDTCOLON AND RECTAL SURGERY Attending Clinic Note Established Patient Assessment: 58 y.o. female with htn, elevated lipids, heartburn, nephrolithiasis, and lichen sclerosus endoscopically obstructing mriT4 N0 M0 rectal mass (6 cm from verge) invading vagina rectal urgency and a lot of rectal bleeding on 07/19/16 went to the [facility] ED CT abdomen/pelvis with IV contrast [...] (10/05/16) no liver metastases rigid proctoscopy by ms (10/05/16) 6 cm from anal verge presented [...] resection with Primary anastomosis, placement of a 19-Haitian Albert drain through the right lower quadrant [...] year CEA (08/28/18) 1.1 CEA (11/27/18) 1.3 acceptable nutrition albumin (09/13/16) 3.5 quit smoking on 07/19/16 Plan: CEA today, normal See me back in 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 Not taking any pain pills. Tolerating her diet. Intermittent nausea but no emesis. Gaining weight. She empties her colostomy bag 2 times a day. She changes her colostomy bag once a week. No problems keeping a seal. Urinary incontinence (taking 2 medications); perineal rash better. No perineal drainage bu t itching. Still wears pad during day and diaper at night for urinary incontinence. Underwent a sleep test. Needs CPAP. A little bit of sinus problems/drainage. Takes magn esium for leg cramps. Depression meds helping her. All other systems reviewed and are nega tive. She comes for routine cancer surveillance. Objective: BP 152/78 | Pulse 98 | Temp 36.6 C (97.8 F) (Oral) | Resp 16 | Ht 1.6 m (5' 3") | Wt 90.3 kg (199 lb) | BMI 35.25 kg/m | BSA 2 m General: well-developed, [...] ulcer With this Return/Re-evaluation patient, I spent 11 minutes of drgt-fd-ezhw time, of which m ore than half the time was spent in counseling. 7 minute document review prior to my seeing [...] | | | | | Suzy Hines [place], | | | | | | [place] [address] | | | | | | [phone] | | | | | | | | +--------+---------+ + + + documented as of this encounter Results CARCINOEMBRYONIC AG, SERUM (11/27/2018 [...] [facility] | [address] | [place] [address] | | | SERVICES, CORE | [address] | | | + + + + + documented in this encounter Visit Diagnoses + + | Diagnosis | + + | Rectal cancer (HCC) - Primary Malignant neoplasm of rectum | + + documented in this encounter
--- OUTSIDE RECORDS SUMMARY | ~2019-05-24 | XMS | Encounter Summary ---
Demographics + + + | Address | [address] | | | [place] [address] | + + + | Home Phone [...] Team Providers + +------+ + | Care Tuber Machine Operator Helper Name | Role | Phone | + +------+ + | Justin Kristian | PCP | | + +------+ + Encounter Details +--------+------+ + + + | Date | Type | Department | Care Team | Description | +--------+------+ + + + | 02/20/ | Lab | Laboratory at [facility] | | [facility] ([facility]) | | 2018 | | [address] | | | | | | [place], [place] | | | | | | [address] | | | | | | [phone] | | | +--------+------+ + + + [...] | | | | | Suzy Hines [place], | | | | | | [place] [address] | | | | | | [phone] | | | | | | | | +--------+---------+ + + + documented as of this encounter Procedures + +--------+ + + + | Procedure Name | Priori | Date/Time | Associated Diagnosis | Comments | | | ty | | | | + +--------+ + + + | CARCINOEMBRYONIC AG, | Routin | 02/20/2018 | CA of rectum (HCC) | Results for this | | SERUM | e | 2:33 PM | | procedure are in the | | | | PDT | | results section. | + +--------+ + + + documented in this encounter Results CARCINOEMBRYONIC AG, SERUM (02/20/2018 [...] | + + + + + | [facility] | [address] | [place] [address] | | | SERVICES, CORE | [address] | | | + + + + + documented in this encounter Visit Diagnoses + + | Diagnosis | + + | CA of rectum (HCC) Malignant neoplasm of rectum | + + documented in this encounter"
--- OUTSIDE RECORDS SUMMARY | ~2019-05-24 | XMS | Encounter Summary ---
Demographics + + + | Address | [address] | | | [place] [address] | + + + | Home Phone [...] + +------+ + | Care Director Of Sales Name | Role | Phone | + [...] 2017 | | Center at [facility] [address] | [address] | Review | | | | [address] | Amita Hines [place], | | | | | Mailcode: [place] | [place] [address] | | | | | for Health and | [phone] | | | | | [facility] 2 | | | | | | [place], [place] | | | | | | [address] | | | | | | [phone] | | | +--------+ + + + [...] | | | | | Amita Hines [place], | | | | | | [place] [address] | | | | | | [phone] | | | | | | | | +--------+---------+ + + + documented as of this encounter Visit Diagnoses Not on filedocumented in this encounter"
--- OUTSIDE RECORDS SUMMARY | ~2019-05-24 | XMS | Encounter Summary ---
Demographics + + + | Address | [address] | | | [place] [address] | + + + | Home Phone | | + + + | Preferred Language | Unknown | + + + | Marital Status | | + + + | Adventism Affiliation | Unknown | + + + | Race | Unknown | + + + | Ethnic Group | Unknown | + + + Author + + + | Author | [facility] | | | and [place] | + + + | Organization | [facility] | | | and [place] | + + + | Address | Unknown | + + + | Phone | Unavailable | + + + Support + + + + + | Name | Relationship | Address | Phone | + + + + + | Lamar Phillips | ECON | [place] [address] | | + + + + + Care Team Providers + +------+ + | Care Gas Maker Name | Role | Phone | + +------+ + | Kristian Anderson DO | PCP | | + +------+ + Reason for Visit + + + | Reason | Comments | + + + | Patient Concerns | | + + + Encounter Details +--------+ + + + + | Date | Type | Department | Care Team | Description | +--------+ + + + + | 03/05/ | Telephone | [facility] | Janel, | Patient Concerns | | 2019 | | [facility] | Mike White MD [address] | | | | | [facility] [address] | | | | | [address] | [place] [address] | | | | | [place] [address] | [phone] | | | | | [phone] | | | +--------+ + + + [...]
--- OUTSIDE RECORDS SUMMARY | ~2019-05-24 | XMS | Encounter Summary ---
Demographics + + + | Address | [address] | | | [place] [address] | + + + | Home Phone [...] Team Providers + +------+ + | Care Detective Name | Role | Phone | + +------+ + | Justin Kristian | PCP | | + +------+ + Encounter Details +--------+------+ + + + | Date | Type | Department | Care Team | Description | +--------+------+ + + + | 05/29/ | Lab | Laboratory at [facility] | | SABINA chung [facility]) | | 2018 | | [address] | | | | | | [place], [place] | | | | | | [address] | | | | | | [phone] | | | +--------+------+ + + + [...] | | | | | Suzy Hines [place], | | | | | | [place] [address] | | | | | | [phone] | | | | | | | | +--------+---------+ + + + documented as of this encounter Procedures + +--------+ + + + | Procedure Name | Priori | Date/Time | Associated Diagnosis | Comments | | | ty | | | | + +--------+ + + + | CARCINOEMBRYONIC AG, | Routin | 05/29/2018 | CA of rectum (HCC) | Results for this | | SERUM | e | 9:51 AM | | procedure are in the | | | | PST | | results section. | + +--------+ + + + documented in this encounter Results CARCINOEMBRYONIC AG, SERUM (05/29/2018 [...] | + + + + + | [facility] | [address] | [place] [address] | | | SERVICES, CORE | [address] | | | + + + + + documented in this encounter Visit Diagnoses + + | Diagnosis | + + | CA of rectum (HCC) Malignant neoplasm of rectum | + + documented in this encounter"
--- OUTSIDE RECORDS SUMMARY | ~2019-05-24 | XMS | Encounter Summary ---
Demographics + + + | Address | [address] | | | [place] [address] | + + + | Home Phone [...] Team Providers + +------+ + | Care Lining Cleaner Name | Role | Phone | + [...] | | Surgery | Diagnoses | Ailyn Wolff, | Ailyn Wolff, | | | | | Rectal | [address] | | | | | cancer (HCC) | [address] | | | | | Procedures | Amita Hines | Amita Hines | | | | | REQUEST TO | [place], [place] | [place], [place] | | | | | SURGERY | [address] | [address] | | | | | DOOR CLAMPER | Phone: | Phone: | | | | | [place] PART | [phone] | [phone] | | | | | REMOVAL | Fax: | Fax: | | | | | COLON W | [phone] | [phone] | | | | | COLOPROCTOST | | | | | | | LORI [place] PART | | | | | | | REMOVAL | | | | | | | COLON W | | | | | | | COLOPROC,COL | | | | | | | OST [place] | | | | | | | ILEOSTOMY/JE | | | | | | | JUNOSTOMY,NO | | | | | | | NTUBE [place] | | | | | | | REMOVE | | | | | | | VAGINA WALL, | | | | | | | PARTIAL [place] | | | | | | | REMOVE | | | | | | | VAGINA | | | | | | | TISSUE/PARTI | | | | | | | AL [place] | | | | | | | [...] | Malignant | Marty Toledo MD | [address] | | | | | neoplasm of | [place] [address] | | | | | rectum | SURGICAL | Amita Hines | | | | | | CLINIC [facility] | [place], [place] | | | | | | [address] | [address] | | | | | | [address]VE | Phone: | | | | | | [place], | [phone] | | | | | | [place] [address] | Fax: | | | | | | Phone: | [phone] | | | | | | [phone] | | | | | | | Fax: | | | | | | | [phone] | | +--------+--------+ + + + + Encounter Details +--------+---------+ + + + | Date | Type | Department | Care Team | Description | +--------+---------+ + + + | 03/02/ | Office | Digestive Health | Ailyn Wolff MD | Rectal cancer (HCC) | | 2017 | Visit | Center at [facility] [address] | [address] | (Primary Dx) | | | | [address] | Amita [facility], | | | | | Mailcode: [facility] [address] | | | | | [facility] and | [phone] | | | | | [address] [address] | | | | | | [place], [place] | | | | | | [address] | | | | | | [phone] | | | +--------+---------+ + + + [...] - 03/02/2017 1:40 PM PDTPATIENT SURGERY INFORMATION [facility] General Surgery Office Toll-free: , request [facility] Surgery Date: 04/21/2017 Procedure: Low anterior resection with posterior vaginectomy Surgeon Name: Dr. Ailyn Wolff MD DIRECTIONS FOR SURGERY DIET You should have clear liquids only for the entire day prior to surgery, no solid food. Kailee r liquids include anything you can see through, like water, fernando zack, lemon-chalkyitsik soft drin ks, apple juice, tea, Gatorade/sports [...] have questions please contact the clinic at [phone], if it is after clinic h ours please call the foaming machine operator at [phone] and ask to speak to the [place] Surgery Resident operations research scientist. CAUTION! Please call the clinic if you [...] preparation, please contact the surgery office at [phone]. After hours and on weekends this number may refer you to the hospital foaming machine operator ([phone]); please ask to speak to the general surgery resident operations research scientist for Dr Javed. MEDICATIONS You may take [...] e. Smoking is not allowed on the [facility] campus. If you are a smoker, please [...] anyone by 3:00 PM please call for [id number]. PARKING Parking for patients and visitors is available in the [facility] Parking structure located across from the emergency department. Patient parking is available on level 1 and 3. Metere d parking is available on the top level. CHECKING IN FOR SURGERY Go in the main entrance and check in at the Admitting Desk 9th floor of [facility] TRANSPORTATION You will require transportation home on the day of discharge. Pain medications and physical activity restrictions may limit your ability to drive safely. CANCELLING YOUR PROCEDURE Please notify the general surgery office at [phone] as soon as possible should you nee [...] prior to your surgery. PRODUCTS CONTAINING ASPIRIN [place], Anacin, Anexsia with Codeine, Andynos, Aspirin, Aspirin suppositories, Ascrip tin, Aspergum, Axotal, B-A-C, Baby Aspirin, Tony, BC Powder, Bexophene, Buffaprin, Bufferin , Buffinol, Cama-Arthritis Strength, Congespirin, Chadron, Coricidin, Damason, Darvon, Dristan, Annetta-Gesic, Digel, Dolprin #3 Tablets, Donatab, Doxaphene, Duragesic, Easprin, Ecotrin, Emag rin Forte, Emiprin, Emprazil, Equagesic, Equazine M, Excedrin, Fiogesic, Fiorgen PH, Fiorice t, Fiorinal, 4-Way Cold Tablet Gemnisyn, Indocin, Liquprin, Lortab ASA, Magnaprin, Marnal, Meprobamate, Midol, Momentum, N orgesic, Hastings, Orphengesic, Pabalate, P-A-C, Percodan, Presalin, Robaxasil, Roxiprin, Brian eto, Salocol SK-65 Compound, Sine-Aid, Sine-Off,, New Era, Supac, Talwin Compound, Trigesic, Tolectin , Traiminicin, Vanquish, ZORprin, Zomax PRODUCTS CONTAINING IBUPROFEN Advil, Aleve, Haltran, Medipren, Midol, Motrin, Naproxyn, Nuprin, Rufen OTHER PRODUCTS WHICH MAY PROMOTE BLEEDING Vitamin E, Gingko Biloba, Marine Fatty Acids, [place]-3 Fish Oil Supplements Registration Process for all [...] the hospital. 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 Pt denies further questions. I encouraged the pt to call with any questions, parveen rns, or new symptoms at [phone]. Bartolo, Ailyn White MD - 017 1:40 [...] rectal bleeding on 07/19/16 went [facility] ED CT abdomen/pelvis with IV contrast [...] cm from anal verge presented at the [facility] Multidisciplinary GI Oncology Conference on 10/07/16 diagnosis: [...] to Mendoza pouch staple line presented at [facility] Multidisciplinary GI Oncology Conference on 03/10/17. Given [...] smoking on 07/19/16 Plan: Present at the [facility] Multidisciplinary GI Oncology Conference on 03/10/17. Given [...] bleeding on 07/19/16. She went to the [facility] ED. CT abdomen/pelvis with IV contrast (07/20/16) [...] cm from anal verge presented at the [facility] Multidisciplinary GI Oncology Conference on 10/07/16 diagnosis: [...] breast Hypertension Mother Heart Attack Father from [place] at age 52 Diabetes Father Heart Attack Brother Coronary Artery Disease Brother NATHAN x 4 Social History Social History Marital status: Single Spouse name: Number of children: 1 Years of education: 12 Occupational History [employer] Social History Main Topics Smoking status: Former [...] established patient, I spent 38 minutes of gehx-in-ddyu time, of which more than half the time was spent in counseling. 18 minute document review cc: Dr. Alfaro, Radiation Oncology at [facility] in [place]. Hemalatha Browning MD - 03/02/2017 1:40 PM [...] in her brother and father ( from [place] at age 52); and Hypertension in her [...] | | | | | Amita Hines [place], | | | | | | [place] [address] | | | | | | [phone] | | | | | | | | +--------+---------+ + + + documented as of this encounter Visit Diagnoses + + | Diagnosis | + + | Rectal cancer (HCC) - Primary Malignant neoplasm of rectum | + + documented in this encounter
--- OUTSIDE RECORDS SUMMARY | ~2019-05-24 | XMS | Encounter Summary ---
Demographics + + + | Address | [address] | | | [place] [address] | + + + | Home Phone | | + + + | Preferred Language | Unknown | + + + | Marital Status | Single | + + + | Mormonism Affiliation | NON | + + + [...] Team Providers + +------+ + | Care Steel Rule Die Maker Name | Role | Phone | + +------+ + | Kristian Anderson DO | PCP | | + +------+ + Encounter Details +--------+ + + + + | Date | Type | Department | Care Team | Description | +--------+ + + + + | 06/30/ | Procedure | 6A Intra Op [facility] | | | | 2017 | Pass | [facility] | | | | | | Admitting Desk | | | | | | Located on the 9th | | | | | | floor [address] | | | | | | [address] | | | | | | [place], [place] | | | | | | [address] | | | +--------+ + + + [...] | | | | | | [place] [address] | | | | | | [phone] | | | | | | | | +--------+---------+ + + + documented as of this encounter Visit Diagnoses Not on filedocumented in this encounter"
--- OUTSIDE RECORDS SUMMARY | ~2019-05-24 | XMS | Encounter Summary ---
Demographics + + + | Address | [address] | | | [place] [address] | + + + | Home Phone [...] Author + + + | Author | [facility] | + + + | Organization | [facility] | + + + | Address | Unknown | + + + | Phone | Unavailable | + + + Support + + +---------+ + | Name | Relationship | Address | Phone | + + +---------+ + | Darrius Quintana | ECON | Unknown | | + + +---------+ + Care Team Providers + +------+ + | Care Tipple Supervisor Name | Role | Phone | [...] | | | | CONSULT TO | [place], [place] | [address] | | | | | RADIATION | [address] | [address] [place], | | | | | ONCOLOGY | Phone: | [place] | | | | | | [phone] | [address] | | | | | | Fax: | Phone: | | | | | | [phone] | [phone] | | | | | | | Fax: | | | | | | | [phone] | +--------+--------+ + + + + Encounter Details +--------+---------+ + + + | Date | Type | Department | Care Team | Description | +--------+---------+ + + + | 06/14/ | Office | Radiation Oncology | Wade Sherman, | Rectal cancer (HCC) | | 2017 | Visit | at [facility] [address] | [address] | (Primary Dx) | | | | [address] | [address] | | | | | [place] | [place], [place] | | | | | [place], [place] | [address] | | | | | [address] | [phone] | | | | | [phone] | | | +--------+---------+ + + + [...] anal biopsy on 10/27/16 consistent with malignancy. [facility] tumor board consensus was to proceed with total neoadjuvant therapy. She completed 6 cycles of FOLFOX on , and pelvic EBRT to 50.4 Gy on 02/17/17. Followup MRI on 03/02/17 with good tumor response but circumferential margin still threatened. [facility] recommendations to proceed with another 6 [...] 1 Years of education: 12 Occupational History [employer] Social History Main Topics Smoking status: Former Smoker Packs/day: 1.50 Years: 41.00 Quit date: 07/19/2016 Smokeless tobacco: Former User Alcohol use No Drug use: No Sexual activity: Not Currently Other Topics Concern Not on file Social History Narrative No narrative on file Family History: Family History Problem Relation Cancer Mother breast Hypertension Mother Heart Attack Father from [place] at age 52 Diabetes Father Heart Attack [...] IORT to 1 cm depth per the [facility] experience while retracting all small bowel and ureters out of the field (PMID [id number]) Wade Sherman MD CC: A copy of [...] | | | | | [address] [place], | | | | | | [place] [address] | | | | | | [phone] | | | | | | | | +--------+---------+ + + + documented as of this encounter Visit Diagnoses + + | Diagnosis | + + | Rectal cancer (HCC) - Primary Malignant neoplasm of rectum | + + documented in this encounter
--- OUTSIDE RECORDS SUMMARY | ~2019-05-24 | XMS | Encounter Summary ---
Demographics + + + | Address | [address] | | | [place] [address] | + + + | Home Phone [...] Team Providers + +------+ + | Care Piano Professor Name | Role | Phone | + +------+ + | Silvioct Kristian | PCP | | + +------+ + Reason for Visit +--------+ + | Reason | Comments | +--------+ + | Other | GI Oncology Planning Conference delayed | +--------+ + Encounter Details +--------+ + + + + | Date | Type | Department | Care Team | Description | +--------+ + + + + | 10/06/ | Telephone | Digestive Health | Ailyn Wolff MD | Other (GI Oncology | | 2017 | | Center at [facility] [address] | [address] | Planning Conference | | | | [address] | [address] [place], | delayed) | | | | Mailcode: [place] | [place] [address] | | | | | for Health and | [phone] | | | | | [facility] 2 | | | | | | [place], [place] | | | | | | [address] | | | | | | [phone] | | | +--------+ + + + [...] | | | | [address] [place], | | | | | | [place] [address] | | | | | | [phone] | | | | | | | | +--------+---------+ + + + documented as of this encounter Visit Diagnoses Not on filedocumented in this encounter"
--- OUTSIDE RECORDS SUMMARY | ~2019-05-24 | XMS | Encounter Summary ---
Demographics + + + | Address | [address] | | | [place] [address] | + + + | Home Phone [...] Team Providers + +------+ + | Care Analytical Data Scientist Name | Role | Phone | [...] | | 2017 | | Center at [facility] [address] | [address] | Received | | | | [address] | [address] [place], (Demographics) | | | | Mailcode: [place] | [place] [address] | | | | | for Health and | [phone] | | | | | [place] [address] | | | | | | [place], [place] | | | | | | [address] | | | | | | [phone] | | | +--------+ + + + [...] | | | | | [address] [place], | | | | | | [place] [address] | | | | | | [phone] | | | | | | | | +--------+---------+ + + + documented as of this encounter Visit Diagnoses Not on filedocumented in this encounter"
--- OUTSIDE RECORDS SUMMARY | ~2019-05-24 | XMS | Encounter Summary ---
Demographics + + + | Address | [address] | | | [place] [address] | + + + | Home Phone [...] Team Providers + +------+ + | Care Borough Coordinator Name | Role | Phone | [...] | | 2019 | | Center at [facility] [address] | [address] | Review | | | | [address] | [address] [place], | | | | | Mailcode: [place] | [place] [address] | | | | | for Health and | [phone] | | | | | [facility] 2 | | | | | | [place], [place] | | | | | | [address] | | | | | | [phone] | | | +--------+ + + + [...] | | | | | [address] [place], | | | | | | [place] [address] | | | | | | [phone] | | | | | | | | +--------+---------+ + + + documented as of this encounter Visit Diagnoses Not on filedocumented in this encounter"
--- OUTSIDE RECORDS SUMMARY | ~2019-05-24 | XMS | Encounter Summary ---
Demographics + + + | Address | [address] | | | [place] [address] | + + + | Home Phone [...] Providers + +------+ + | Care Chief Supply Chain Officer Name | Role | Phone | [...] | +--------+ + + + + | 08/09/ | Abstract | Digestive Health | Ailyn Wolff MD | Outside Records | | 2019 | | Center at [facility] [address] | [address] | Received | | | | [address] | [address] [place], | | | | | Mailcode: [place] | [place] [address] | | | | | for Health and | [phone] | | | | | [facility] 2 | | | | | | [place], [place] | | | | | | [address] | | | | | | [phone] | | | +--------+ + + + [...] | | | | | [address] [place], | | | | | | [place] [address] | | | | | | [phone] | | | | | | | | +--------+---------+ + + + documented as of this encounter Visit Diagnoses Not on filedocumented in this encounter"
--- OUTSIDE RECORDS SUMMARY | ~2019-05-24 | XMS | Clinical Summary ---
Demographics + + + | Address | [address] | | | [place] [address] | + + + | Home Phone | | + + + | Preferred Language | Unknown | + + + | Marital Status | | + + + | Hoahaoism Affiliation | Unknown | + + + | Race | Unknown | + + + | Ethnic Group | Unknown | + + + Author + + + | Author | [facility] (Historical as of | | | 03-10-19) | + + + | Organization | [facility] (Historical as of | | | 03-10-19) [...] Team Providers + +------+ + | Care Tuft Machine Operator Name | Role | Phone [...] +------+-------+ + | MEDICAID | MEDICA | [id number] | | | [address] | | | [place] | | | | [place] | | | [place] | | | | [address] | + +--------+ +------+-------+ + + +--------+ [...] | | | [address] | | | [address] | [place] [address] | + +--------+ +--------+ + +"
--- OUTSIDE RECORDS SUMMARY | ~2019-05-24 | XMS | Encounter Summary ---
Demographics + + + | Address | [address] | | | [place] [address] | + + + | Home Phone | | + + + | Preferred Language | Unknown | + + + | Marital Status | Single | + + + | Holiness Affiliation | NON | + + + [...] Team Providers + +------+ + | Care Jackscrew Worker Name | Role | Phone | [...] | | 2017 | | Center at [facility] [address] | [address] | Review | | | | [address] | [address] [place], | | | | | Mailcode: [place] | [place] [address] | | | | | for Health and | [phone] | | | | | [facility] 2 | | | | | | [place], [place] | | | | | | [address] | | | | | | [phone] | | | +--------+ + + + [...] | | | | | [address] [place], | | | | | | [place] [address] | | | | | | [phone] | | | | | | | | +--------+---------+ + + + documented as of this encounter Visit Diagnoses Not on filedocumented in this encounter"
--- OUTSIDE RECORDS SUMMARY | ~2019-05-24 | XMS | Encounter Summary ---
Demographics + + + | Address | [address] | | | [place] [address] | + + + | Home Phone [...] | Author | [facility] | + + + | Organization | [facility] | + + + | Address | Unknown | + + + | Phone | Unavailable | + + + Support + + +---------+ + | Name | Relationship | Address | Phone | + + +---------+ + | Darrius Quintana | ECON | Unknown | | + + +---------+ + Care Team Providers + +------+ + | Care Security Guard Name | Role | Phone | + [...] Outside Records | | 2017 | | [place] at [facility] [address] | [address] | Received (UA | | | | [address] | [address] [place], | 07/14/2017) | | | | Mailcode: [place] | [place] [address] | | | | | for Health and | [phone] | | | | | [facility] 2 | | | | | | [place], [place] | | | | | | [address] | | | | | | [phone] | | | +--------+ + + + [...] | | | | | | [place] [address] | | | | | | [phone] | | | | | | | | +--------+---------+ + + + documented as of this encounter Visit Diagnoses Not on filedocumented in this encounter"
--- OUTSIDE RECORDS SUMMARY | ~2019-05-24 | XMS | Encounter Summary ---
Demographics + + + | Address | [address] | | | [place] [address] | + + + | Home Phone [...] | + + +---------+ + | Darrius Qunitana | ECON | Unknown | | + + +---------+ + Care Team Providers + +------+ + | Care Slicing Machine Tender Name | Role | Phone | + [...] + + | 08/18/ | Abstract | Digestive Health | Ailyn Wolff MD | Medical Records | | 2018 | | Center at [facility] [address] | [address] | Review | | | | [address] | [address] [place], | | | | | Mailcode: [place] | [place] [address] | | | | | for Health and | [phone] | | | | | [facility] 2 | | | | | | [place], [place] | | | | | | [address] | | | | | | [phone] | | | +--------+ + + + [...] | | | | | [address] [place], | | | | | | [place] [address] | | | | | | [phone] | | | | | | | | +--------+---------+ + + + documented as of this encounter Visit Diagnoses Not on filedocumented in this encounter"
--- OUTSIDE RECORDS SUMMARY | ~2019-05-24 | XMS | Encounter Summary ---
Demographics + + + | Address | [address] | | | [place] [address] | + + + | Home Phone | | + + + | Preferred Language | Unknown | + + + | Marital Status | Single | + + + | Yazidism Affiliation | NON | + + + [...] Team Providers + +------+ + | Care Rubber Press Tender Name | Role | Phone | [...] | [address] | [address] [place], | | | | | Mailcode: [place] | [place] [address] | | | | | for Health and | [phone] | | | | | [facility] 2 | | | | | | [place], [place] | | | | | | [address] | | | | | | [phone] | | | +--------+---------+ + + + [...] rectal bleeding on 07/19/16 went to [facility] ED CT abdomen/pelvis with IV contrast [...] cm from anal verge presented at the [facility] Multidisciplinary GI Oncology Conference on 10/07/16 [...] to Mendoza pouch staple line presented at [facility] Multidisciplinary GI Oncology Conference on 03/10/17. [...] MRI ([facility], 05/17/17) close to pelvic sidewall [facility] Multidisciplinary GI Oncology Conference (06/02/17) Recommendations [...] with primary anast omosis, placement of a 19-Macanese Albert drain through [...] wit h primary anastomosis, placement of a 19-Macanese Albert [...] Return/Re-evaluation patient, I spent 19 minutes of knyc-ro-zjhz time, of which m ore than half [...] | | | | | [address] [place], | | | | | | [place] [address] | | | | | | [phone] | | | | | | | | +--------+---------+ + + + documented as of this encounter Visit Diagnoses + + | Diagnosis | + + | 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
--- OUTSIDE RECORDS SUMMARY | ~2019-05-24 | XMS | Encounter Summary ---
Demographics + + + | Address | [address] | | | [place] [address] | + + + | Home Phone [...] Team Providers + +------+ + | Care Academic Services Coordinator Name | Role | Phone | + +------+ + | Kristian Anderson DO | PCP | | + +------+ + Encounter Details +--------+ + + + + | Date | Type | Department | Care Team | Description | +--------+ + + + + | 01/03/ | Document-Sc | Health Information | Unknown . | | | 2017 | anned | Services [address] | | | | | [address] | | | | | | Mailcode: [address] | | | | | | [facility] | | | | | | [place], [place] | | | | | | [address] | | | | | | [phone] | | | +--------+ + + + [...] | | | | | [address] [place], | | | | | | [place] [address] | | | | | | [phone] | | | | | | | [...]
--- OUTSIDE RECORDS SUMMARY | ~2019-05-24 | XMS | Encounter Summary ---
Demographics + + + | Address | [address] | | | [place] [address] | + + + | Home Phone [...] Team Providers + +------+ + | Care Doggy Daycare Activities Director Name | Role | Phone | + +------+ + | Justin Kristian | PCP | | + +------+ + Reason for Visit + + + | Reason | Comments | + + + | Evaluation of test | | | results | | + + + Encounter Details +--------+ + + + + | Date | Type | Department | Care Team | Description | +--------+ + + + + | 05/20/ | Telephone | Digestive Health | Ailyn Wolff MD | Evaluation of test | | 2017 | | Center at [facility] [address] | [address] | results | | | | [address] | [address] [place], | | | | | Mailcode: [place] | [place] [address] | | | | | for Health and | [phone] | | | | | [facility] 2 | | | | | | [place], [place] | | | | | | [address] | | | | | | [phone] | | | +--------+ + + + [...] | | 2019 | Visit | | [address] | | | | | | [address] [place], | | | | | | [place] [address] | | | | | | [phone] | | | | | | | | +--------+---------+ + + + documented as of this encounter Visit Diagnoses Not on filedocumented in this encounter"
--- OUTSIDE RECORDS SUMMARY | ~2019-05-24 | XMS | Encounter Summary ---
Demographics + + + | Address | [address] | | | [place] [address] | + + + | Home Phone [...] Author + + + | Author | [facility] | + + + | Organization | [facility] | + + + | Address | Unknown | + + + | Phone | Unavailable | + + + Support + + +---------+ + | Name | Relationship | Address | Phone | + + +---------+ + | Darrius Quintana | ECON | Unknown | | + + +---------+ + Care Team Providers + +------+ + | Care Pet Counselor Name | Role | Phone | + +------+ + | Silvioct Kristian | PCP | | + +------+ + Reason for Visit + + + | Reason | Comments | + + + | Outside Records | CT chest, abdomen, pelvis September 2017 and MRI September 2017 St | | Received | [facility]. Images in [employer] | + + + Encounter Details +--------+ + + + + | Date | Type | Department | Care Team | Description | +--------+ + + + + | 01/04/ | Abstract | Digestive Health | Ailyn Wolff MD | Outside Records | | 2018 | | Center at [facility] [address] | [address] | Received (CT chest, | | | | [address] | [address] [place], | abdomen, pelvis | | | | Mailcode: Center | [place] [address] | September 2017 and MRI | | | | for Health and | [phone] | September 2017 St | | | | [facility] 2 | | [facility]. | | | | [place], [place] | | Images in [employer]) | | | | [address] | | | | | | [phone] | | | +--------+ + + + [...] | | | | | | [place] [address] | | | | | | [phone] | | | | | | | | +--------+---------+ + + + documented as of this encounter Visit Diagnoses Not on filedocumented in this encounter"
--- OUTSIDE RECORDS SUMMARY | ~2019-05-24 | XMS | Encounter Summary ---
[...] Team Providers + +------+ + | Care Wardrobe Supervisor Name | Role | Phone | [...] | 2017 | | Center at [facility] [address] | [address] | Review | | | | [address] | [address] [place], | | | | | Mailcode: [place] | [place] [address] | | | | | for Health and | [phone] | | | | | [facility] 2 | | | | | | [place], [place] | | | | | | [address] | | | | | | [phone] | | | +--------+ + + + [...] | | | | | [address] [place], | | | | | | [place] [address] | | | | | | [phone] | | | | | | | | +--------+---------+ + + + documented as of this encounter Visit Diagnoses Not on filedocumented in this encounter"
--- OUTSIDE RECORDS SUMMARY | ~2019-05-24 | XMS | Encounter Summary ---
Demographics + + + | Address | [address] | | | [place] [address] | + + + | Home Phone [...] Team Providers + +------+ + | Care Red Hat Linux Administrator Name | Role | Phone | [...] | | 2017 | | Center at [facility] [address] | [address] | Received | | | | [address] | [address] [place], | | | | | Mailcode: [place] | [place] [address] | | | | | for Health and | [phone] | | | | | [facility] 2 | | | | | | [place], [place] | | | | | | [address] | | | | | | [phone] | | | +--------+ + + + [...] | | | | | [address] [place], | | | | | | [place] [address] | | | | | | [phone] | | | | | | | | +--------+---------+ + + + documented as of this encounter Visit Diagnoses Not on filedocumented in this encounter"
--- OUTSIDE RECORDS SUMMARY | ~2019-05-24 | XMS | Encounter Summary ---
Demographics + + + | Address | [address] | | | [place] [address] | + + + | Home Phone [...] Providers + +------+ + | Care Chief Writer Name | Role | Phone | + [...] | | 2017 | | Center at [facility] [address] | [address] | Review | | | | [address] | [address]ines [place], | | | | | Mailcode: [place] | [place] [address] | | | | | for Health and | [phone] | | | | | [facility] 2 | | | | | | [place], [place] | | | | | | [address] | | | | | | [phone] | | | +--------+ + + + [...] | 06/18/ | Office | Surgery | Aiyln Wolff MD | | | 2019 | Visit | | [address] | | | | | | [address] [place], | | | | | | [place] [address] | | | | | | [phone] | | | | | | | | +--------+---------+ + + + documented as of this encounter Visit Diagnoses Not on filedocumented in this encounter"
--- OUTSIDE RECORDS SUMMARY | ~2019-05-24 | XMS | Encounter Summary ---
Demographics + + + | Address | [address] | | | [place] [address] | + + + | Home Phone [...] Team Providers + +------+ + | Care Mixing Machine Tender Name | Role | Phone [...] + + | 06/30/ | Hospital | [facility] [address] | Ailyn Wolff MD | | | 2017 - | Encounter | [address] | [address] | | | | | 12C/UHS31 [facility] | [place], | | | 07/05/ | | [facility], | [place] [address] | | | 2016 | | [place] [address] | [phone] | | | | | [phone] | | | +--------+ + + + [...] might be different fro m the original. [facility] Discharge Summary Green Service Admit Date: 06/30/2017 [...] posterior vaginal wall. 5. Placement of a 19-Macanese Malissa drain through the right lower quadrant [...] narcotic pain medications, please call the clinic ([phone] ) by 2 pm on for any [...] hours by calling the surgery office at [phone]. After hours, weekends and holidays, you may call the hospital diesel locomotive crane operator at [phone] and have the correspondence dictator Green Team for general surgery paged. Constipation: [...] your instructions. Acetaminophen (Tylenol): You may use omiv-hgv-wzpnddu (OTC) acetaminophen for milder pain. Do not [...] medications with Hydrocodone such as Vicodin or [place]. It is important to keep track of [...] Phone Center 07/27/2017 3:40 PM Ailyn Wolff [facility] at [facility] 6th Floor [phone] Former[facility] Schedule the following appointment(s) when you get [...] to discharge) Natalie Poon MD Surgery, PGY1 [facility] Associated attestation - Ailyn Wolff MD - [...] through Care Everywhere.Bowel Resection : Open: Post-op (Omani)Post-op Infection (Omani)Ureteral Stent Placement: Post-op (Sathya yoo)documented in this [...] | | 18 | | | | [id number], Skin prep: | | | | | | | 3M 3344 (30/mo), Adh | | | | | | | Rem HO 7760 | | | | | | | (1box/mo), Rings: HO | | | | | | | 8805 (10/mo), | | | | | | | [place] [address] | | | | | | | (60/mo), Pwdr: CT | | | | | | | 351662 (1oz/mo), | | | | | | | Belt: Lrg (2/mo) | | | | | | | and Irrigation CO | | | | | | | 340440, Sleeve [place] | | | | | | | 068251 | | | | | + + [...] Physician: Ailyn Wolff MD Patient: JENN BYRNES [id number] 24H events/Subjective: Epidural removed yesterday, pain controlled. [...] Tim Davila MD General Surgery, PGY-1 Pager: [phone] Associated attestation - Ailyn Wolff MD - [...] BLOCK PROGRESS NOTE 07/04/2017 Author: Andree English RETICLE PRINTER Epidural day # 4 POD# 4. Status [...] Andree English NP Adult Pain Service Pager [phone] Team Pager [phone] Tim See MD - 5:31 AM PST Green Surgery Progress Note Hospital Day: 4 Attending Physician: Ailyn Wolff MD Patient: JENN BYRNES [id number] 24H events/Subjective: Epidural still functioning, removed later [...] this patient is Ailyn Wolff MD. Tim Davlia MD General Surgery, PGY-1 Pager: [phone] Associated attestation - Ailyn Wolff MD - [...] 50 mL/hr intravenous CONTINUOUS 50 mL/hr (07/03/17 9435) ropivacaine 0.1 %-HYDROmorphone 10 mcg/mL epidural infusion [...] full diet Alta Woods MD Team Pager [phone] signed by Alta Woods MD at 07/03/2017 [...] this patient. Alta Woods MD Team Pager [phone] signed by Alta Woods MD at 07/02/2017 [...] [place] [phone] with questions. Dorene Carter (Mr.) MSN, ACNP- Nurse Practitioner [facility] [address] [place] [address] Vicki Erwin M D - 07/01/2017 6:04 AM PSTAPS brief note: Evaluated epidural at bedside. Catheter intact h/e filter broken resulting in leak. Replace d filtered and resumed epidural infusion. Vicki Emanuel MD APS pg [id number] signed by Vicki Emanuel MD at 07/10/2017 3:36 PM PSTHasl Natalie mckeon MD - 07/01/2017 5:36 AM PST Green Surgery Progress Note Hospital Day: 1 Attending Physician: Ailyn Wolff MD Patient: JENN BYRNES [id number] 24H events/Subjective: Pt comfortable in bed this [...] 07/01/17 0659 07/01/17699 - 07/02/17 0659 Shift [id number] 0218-9585 9095-0205 24 Hour Total 4776-9505 8571-2770 3665-8764 24 Hour Tot al I N T [...] Poon MD PGY-1 Department of General Surgery [id number] Ivette Shannon MD - 06/30/2017 11:02 PM PST The Department of Otolaryngology Postoperative Check Author: Ivette Jade MD Attending Physician: Ailyn Wolff MD 06/30/2017, 11:02 PM ID/CC: Jenn [...] edema ASSESSMENT AND PLAN: This is Jenn Brynes, a 56 y.o. F, with a h/o [...] Jade MD Otolaryngology-Head & Neck Surgery PGY-1 [phone] documented in this encount er Plan of Treatment +--------+---------+ + + + | Date | Type | Specialty | Care Team | Description | +--------+---------+ + + + | 06/18/ | Office | Surgery | Ailyn Wolff MD | | | 2019 | Visit | | [address] | | | | | | [place], | | | | | | [place] [address] | | | | | | [phone] | | | | | | | [...] CHG), | e | 10:19 AM | ([facility]) | procedure are in the | [...] PLACEMENT | ve | 8:03 AM | ([facility]) | | | | Surgic | [...] + + | Performing | Address | City/State/[facility] | Phone Number | | Organization | | | | + + + + + | [facility] | [address] | [place], [place] | | | VIVIAN SCHMIDT OF [facility] | [address] | [address] | | | TESTS | | | [...] [place] | [address] | [place], [place] | | | VIVIAN SCHMIDT OF [place] | [facility] | [address] | | | TESTS | | | [...] (H) | 70 - 99 mg/dL | [facility] - | | | GLUCOSE, [...] [place] | [address] | [place], [place] | | | [place] [facility] CARE | [address] | [address] | | | TESTS | | | [...] [place] | [address] | [place], [place] | | | VIVIAN SCHM[facility]T OF [place] | [address] | [address] | | | TESTS | | | [...] MARCIALAM | [address] | [place], [place] | | | VIVIAN SCH[place]T OF [place] | [facility] | [address] | | | TESTS | | | [...] (H) | 70 - 99 mg/dL | [facility] - | | | GLUCOSE, [...] [place] | [address] | [place], [place] | | | [place] [facility] | [address] | [address] | | | TESTS | | | [...] + + | Performing | Address | City/State/[facility] | Phone Number | | Organization | | | | + + + + + | [facility] | [address] | [place], [place] | | | VIVIAN SCHMIDT OF [place] | [facility] | [address] | | | TESTS | | | [...] MAR[place]AM | [address] | [place], [place] | | | VIVIAN SCHMIDT OF CARE | [facility] | [address] | | | TESTS | | | [...] (H) | 70 - 99 mg/dL | [facility] - | | | GLUCOSE, [...] NICOLASA | [address] | [place], [place] | | | [place] [facility] | [address] | [address] | | | TESTS | | | [...] BAL[place]IN | [address] | [place], [place] | | | VIVIAN SCH[facility]T OF [place] | [facility] | [address] | | | TESTS | | | [...] - [place] | [address] | [place], [place] | | | VIVIAN SCHMIDT OF CARE | [facility] | [address] | | | TESTS | | | [...] (L) | 70 - 99 mg/dL | [facility] - | | | GLUCOSE, [...] NICOLASA | [address] | [place], [place] | | | VIVIAN SCHMIDT OF CARE | [address] | [address] | | | TESTS | | | [...] BALDWIN | [address] | [place], [place] | | | VVIIAN SCHMIDT OF CARE | [address] | [address] | | | TESTS | | | [...] MARQUAM | [address] | [place], [place] | | | VIVIAN SCHMIDT OF CARE | [facility] | [address] | | | TESTS | | | [...] (L) | 70 - 99 mg/dL | [facility] - | | | GLUCOSE, | | [...] + + + | [facility] [place] | [address] | [place], [place] | | | VIVIAN SCHMIDT OF [facility] | [address] | [address] | | | TESTS | | | [...] [place] | [address] | [place], [place] | | | VIVIAN SCHMIDT OF CARE | [address] | [address] | | | TESTS | | | [...] [place] | [address] | [place], [place] | | | [place] [facility]ARE | [address] | [address] | | | TESTS | | | [...] MARQUAM | [address] | [place], [place] | | | VIVIAN SCHMIDT OF CARE | [address] | [address] | | | TESTS | | | [...] [place] | [address] | [place], [place] | | | VIVIAN SCHMIDT OF [place] | [facility] | [address] | | | TESTS | | | [...] - [place] | [address] | [place], [place] | | | VIVIAN SCHMIDT OF CARE | [facility] | [address] | | | TESTS | | | [...] (H) | 70 - 99 mg/dL | [facility] - | | | GLUCOSE, [...] MARCIALAM | [address] | [place], [place] | | | [place] [facility]ARE | [address] | [address] | | | TESTS | | | [...] [place] | [address] | [place], [place] | | | V[facility]T OF [place] | [facility] | [address] | | | TESTS | | | [...] [facility] | [address] | [place], [place] | | | VIVIAN SCHM[facility]T OF [place] | [facility] | [address] | | | TESTS | | | [...] (H) | 70 - 99 mg/dL | [facility] - | | | GLUCOSE, [...] [place] | [address] | [place], [place] | | | VIVIAN SCHMIDT OF CARE | [address] | [address] | | | TESTS | | | [...] [place] | [address] | [place], [place] | | | VIVIAN SCHMIDT OF [place] | [facility] | [address] | | | TESTS | | | [...] + + + + | [facility] | [address] | [place] [address] | | | SERVICES, CORE | AMITA [...] | + + + + + | [facility] | [address] | [place] [address] | | | SERVICES, CORE | [address] [...] | + + + + + | [facility] | [address] | [place] [address] | | | SERVICES, CORE | AMITA [...] | | | LABORATORY | | | GAMBIAN | | | SERVICES, | | | [...] + + + + | [facility] | [address] | [place] [address] | | | SERVICES, CORE | AMITA [...] (H) | 70 - 99 mg/dL | [facility] - | | | GLUCOSE, [...] + + + | [facility] | [address] | [place], [place] | | | [place] [facility]ARE | [address] | [address] | | | TESTS | | | [...] [place] | [address] | [place], [place] | | | [place] [facility] | [address] | [address] | | | TESTS | | | [...] - [place] | [address] | [place], [place] | | | [place] [facility] | [address] | [address] | | | TESTS | | | [...] + + + | [facility] | [address] | [place], [place] | | | [place] [facility]INT OF [facility] | [address] | [address] | | | TESTS | | | [...] [place] | [address] | [place], [place] | | | [place] [facility] CARE | [facility] | [address] | | | TESTS | | | [...] [facility] | [address] | [place] [address] | | | SERVICES, CAR | [address] | | | + + + + + OPERATION RECORD (06/30/2017 7:26 PM PST) + + | Procedure Note | + + | Ailyn Wolff MD - 06/30/2017 7:26 PM PST Date of Service: 06/30/2017 Attending | | Surgeon: Ailyn Wolff MD Training Consultant(s): Sae Slater MD | | Donna Gonzalez [...] resection with primary anastomosis.8. Placement of a 19-Macanese Malissa drain through the | | right lower quadrant wall into the presacral space.9. 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 Placement of anthony drain into former rectocutaneous | | irayupo73. Cystoscopy and bilateral ureteral stent placement with Dr. Cole Snáchez, | | Dr. Delilah Chino. and Dr. [...] anal verge. I presented her at the [facility] Multidisciplinary GI Oncology | | [...] fistula tract. We performed a small bowel qlhw-dz-jjdb | | stapled anastomosis. Note, the abscess [...] closed the mesentery with a 3-0 Polysorb xudbvi-xy-gsahb suture. The anastomosis | | was widely [...] the external sphincter with interrupted 0 Polysorb mtbaof-bo-sxwvy sutures. We closed | | the deep [...] #1 Maxon sutures x2. We placed a 19-Macanese Malissa | | drain through the right [...] | | 06/30/2017 17:03:37DT: 06/30/2017 19:26:50Job #: [id number] | | | | /[id number] | + + CAPILLARY BLOOD GLUCOSE (NO [...] [place] | [address] | [place], [place] | | | [place] [facility]ARE | [address] | [address] | | | TESTS | | | [...] [place] | [address] | [place], [place] | | | VIVIAN SCHMIDT OF CARE | [address] | [address] | | | TESTS | | | [...] [place] | [address] | [place], [place] | | | VIVIAN SCHMIDT OF CARE | [address] | [address] | | | TESTS | | | | + + + + + PROCEDURE NOTE (06/30/2017 5:14 PM PST) + + | Procedure Note | + + | Sae Slater MD - 06/30/2017 5:14 PM PST BRIEF OPERATIVE NOTEProcedure Date: | | 06/30/2017Author: Sae Slater [facility] Physician: Dr. Ailyn Suhts: Sae | | MD Nohemy, V1ShlpiDonna Gonzalez MD, G5Mhfuqshkqakr Diagnosis: rectal cancerPostoperative | | Diagnosis: sameProcedure [...] | | Abdominal precautionsInitial surgical contact: Green business analyst intern. Sae Slater MDGeneral | | Surgery, V5Bidch [id number] | |2. En bloc resection of rectum, [...] | | | |Initial surgical contact: Green business analyst intern. | | | | | |Sae Slater MD | |General Surgery, R5 | |Pager [phone] | + + PROCEDURE NOTE (06/30/2017 2:44 PM PST) + + | Procedure Note | + + | eDlilah Jerome MD - 06/30/2017 2:44 PM PST [...] c/o | | flank pain). Delilah Calvert [id number]-1Rnyqsfvmad of Urology | | | |Indications: 56 [...] | | | |Delilah Vale | |Pager [phone] | |PGY-5 | |Department of Urology | [...] + + | [facility] | [address] [facility] | [place], [place] | | | [place] [facility] CARE | [address] | [address] | | | TESTS | | | [...] placementSURGEON: Juan Luis, | | MD Princess LODGING MANAGER: Natalie Poon MDANESTHESIA: General. ESTIMATED BLOOD LOSS: [...] usual | | sterile fashion. A 21 urdu cystoscope was inserted into the urethra atraumatically. [...] Cleve PGY - 1Department of Urology PGR [id number] | |The patient was brought to the [...] the usual sterile | |fashion. A 21 urdu cystoscope was inserted into the urethra atraumatically. [...] was then turned back over to the [facility] surgical team for their portion of the procedure. Dr. Sánchez was present and directed t he entirety of the case. | | | |The attending of record is Juan Luis Sánchez | | | | | |Natalie Poon MD | |PGY - 1 | |Department of Urology | |PGR [id number] | + + ABG-FULL ABL, POC (06/30/2017 [...] [place] | [address] | [place], [place] | | | [place] [facility] CARE | [facility] | [address] | | | TESTS | | | [...] - [place] | [address] | [place], [place] | | | [place] [facility] CARE | [address] | [address] | | | TESTS | | | [...] + + + | [facility] | [address] | [place], [place] | | | [place] [facility]INT OF [facility] | [address] | [address] | | | TESTS | | | [...] | | | | | | (pT): [id number] Lymph | | | | | | Nodes (pN): | | | | | | bJ6Xoagji of regional | | | | | [...] | | | | | | record #[id number]. | | | | | | A: [...] | | | | | | diameter. Acquisitions Assistant | | | | | | sections [...] identified. | | | | | | Acquisitions Assistant sections | | | | | | [...] additional | | | | | | bilingual sales representative sections | | | | | [...] adipose | | | | | | fdfkcfJ36, anal | | | | | | [...] | | | | | remnantF1 and L7gargn | | | | | | bowel [...] | + + + + + | [facility] | [address] | [place] [address] | | | PATHOLOGY | [address] [...] PST | | | | | on [facility] 06/30/17 at 1845, Until | | | [...]
--- OUTSIDE RECORDS SUMMARY | ~2019-05-24 | XMS | Encounter Summary ---
Demographics + + + | Address | [address] | | | [place] [address] | + + + | Home Phone [...] Team Providers + +------+ + | Care Home Appraiser Name | Role | Phone | [...] + + + + | 06/02/ | Documentati | Digestive Health | Ailyn Wolff MD | Conference Report | | 2017 | on | Center at [facility] [address] | [address] | (GI Oncology | | | | [address] | [place], | Planning Conference) | | | | Mailcode: [place] | [place] [address] | | | | | for Health and | [phone] | | | | | [facility] 2 | | | | | | [place], [place] | | | | | | [address] | | | | | | [phone] | | | +--------+ + + + [...] | | | | | [address] [place], | | | | | | [place] [address] | | | | | | [phone] | | | | | | | | +--------+---------+ + + + documented as of this encounter Visit Diagnoses Not on filedocumented in this encounter"
--- OUTSIDE RECORDS SUMMARY | ~2019-05-24 | XMS | Encounter Summary ---
Demographics + + + | Address | [address] | | | [place] [address] | + + + | Home Phone [...] Team Providers + +------+ + | Care Clinical Data Manager Name | Role | Phone | [...] | | 2017 | | Center at [facility] [address] | [address] | Received (CT) | | | | [address] | Amita Hines [place], | | | | | Mailcode: [place] | [place] [address] | | | | | for Health and | [phone] | | | | | [facility] | | | | | | [place], [place] | | | | | | [address] | | | | | | [phone] | | | +--------+ + + + [...] | | | | | Amita Hines [place], | | | | | | [place] [address] | | | | | | [phone] | | | | | | | | +--------+---------+ + + + documented as of this encounter Visit Diagnoses Not on filedocumented in this encounter"
--- OUTSIDE RECORDS SUMMARY | ~2019-05-24 | XMS | Encounter Summary ---
Demographics + + + | Address | [address] | | | [place] [address] | + + + | Home Phone [...] Team Providers + +------+ + | Care Stucco Applicator Name | Role | Phone | + [...] | | 2018 | | Center at [facility] [address] | [address] | Review | | | | [address] | Amita Hines [place], | | | | | Mailcode: [place] | [place] [address] | | | | | for Health and | [phone] | | | | | [facility] 2 | | | | | | [place], [place] | | | | | | [address] | | | | | | [phone] | | | +--------+ + + + [...] | | | | | [place]a [place], | | | | | | [place] [address] | | | | | | [phone] | | | | | | | | +--------+---------+ + + + documented as of this encounter Visit Diagnoses Not on filedocumented in this encounter"
--- OUTSIDE RECORDS SUMMARY | ~2019-05-24 | XMS | Encounter Summary ---
Demographics + + + | Address | [address] | | | [place] [address] | + + + | Home Phone [...] Team Providers + +------+ + | Care Cab Station Attendant Name | Role | Phone | + +------+ + | Kristian Anderson DO | PCP | | + +------+ + Encounter Details +--------+ + + + + | Date | Type | Department | Care Team | Description | +--------+ + + + + | 05/17/ | Document-Sc | Health Information | Unknown . | | | 2017 | anned | Services [address] | | | | | | [address] | | | | | | Mailcode: OP17A | | | | | | [facility] | | | | | | [place], [place] | | | | | | [address] | | | | | | [phone] | | | +--------+ + + + [...] | | | | | Amita H[place], | | | | | | [place] [address] | | | | | | [phone] | | | | | | | [...]
--- OUTSIDE RECORDS SUMMARY | ~2019-05-24 | XMS | Encounter Summary ---
Demographics + + + | Address | [address] | | | [place] [address] | + + + | Home Phone [...] Team Providers + +------+ + | Care Utility Mechanic Supervisor Name | Role | Phone | + +------+ + | Kristian Anderson DO | PCP | | + +------+ + Encounter Details +--------+ + + + + | Date | Type | Department | Care Team | Description | +--------+ + + + + | 10/04/ | Abstract | Digestive Health | Clinic, Surgery | | | 2017 | | [place] [facility] [address] | | | | | | [address] | | | | | | Mailcode: [place] | | | | | | for Health and | | | | | | Healing, Building [address] | | | | | | [place], [place] | | | | | | [address] | | | | | | [phone] | | | +--------+ + + + [...] | | | | | Amita H[place], | | | | | | [place] [address] | | | | | | [phone] | | | | | | | | +--------+---------+ + + + documented as of this encounter Visit Diagnoses Not on filedocumented in this encounter"
--- OUTSIDE RECORDS SUMMARY | ~2019-05-24 | XMS | Encounter Summary ---
Demographics + + + | Address | [address] | | | [place] [address] | + + + | Home Phone [...] Team Providers + +------+ + | Care Database Specialist Name | Role | Phone | + +------+ + | Kristian Anderson DO | PCP | | + +------+ + Encounter Details +--------+ + + + + | Date | Type | Department | Care Team | Description | +--------+ + + + + | 02/20/ | Hospital | Wound and Ostomy | Delores Avilez, | | | 2017 | Encounter | Care [address] | RN, CWOCN [address] | | | | [address] | [address] | | | | | [facility] | [place], [place] | | | | | [place] [address] | [address] | | | | | [place], [place] | | | | | | [address] | | | | | | [phone] | | | +--------+ + + + [...] | | 18 | | | | [address], Skin prep: | | | | | | | 3M 3344 (30/mo), Adh | | | | | | | Rem HO 7760 | | | | | | | (1box/mo), Rings: HO | | | | | | | 8805 (10/mo), | | | | | | | [place]odorant: [place] [address] | | | | | | | (60/mo), Pwdr: CT | | | | | | | 644650 (1oz/mo), | | | | | | | Belt: Lrg (2/mo) | | | | | | | and Irrigation CO | | | | | | | 189507, Sleeve [place] | | | | | | | 555358 | | | | | + + [...] | | | | | Amita H[place], | | | | | | [place] [address] | | | | | | [phone] | | | | | | | | +--------+---------+ + + + documented as of this encounter Visit Diagnoses Not on filedocumented in this encounter"
--- OUTSIDE RECORDS SUMMARY | ~2019-05-24 | XMS | Encounter Summary ---
Demographics + + + | Address | [address] | | | [place] [address] | + + + | Home Phone [...] Providers + +------+ + | Care Paper Inspector Name | Role | Phone | + +------+ + | Kristian Anderosn DO | PCP | | + +------+ + Encounter Details +--------+ + + + + | Date | Type | Department | Care Team | Description | +--------+ + + + + | 10/04/ | Abstract | Digestive Health | Clinic, Surgery | | | 2017 | | [place] [facility] [address] | | | | | | [address] | | | | | | Mailcode: [place] | | | | | | for Health and | | | | | | Healing, Building [address] | | | | | | [place], [place] | | | | | | [address] | | | | | | [phone] | | | +--------+ + + + [...] | | | | | Amita Hines [place], | | | | | | [place] [address] | | | | | | [phone] | | | | | | | | +--------+---------+ + + + documented as of this encounter Visit Diagnoses Not on filedocumented in this encounter"
--- OUTSIDE RECORDS SUMMARY | ~2019-05-24 | XMS | Encounter Summary ---
Demographics + + + | Address | [address] | | | [place] [address] | + + + | Home Phone [...] Team Providers + +------+ + | Care Weight Control Lecturer Name | Role | Phone | + +------+ + | Kristian Anderson DO | PCP | | + +------+ + Encounter Details +--------+ + + + + | Date | Type | Department | Care Team | Description | +--------+ + + + + | 04/19/ | Procedure | Diagnostic Imaging | | | | 2016 | Pass | Services at [facility] | | | | | | [address] | | | | | | Amita Hines Mailcode: | | | | | | [address] [facility] | | | | | | [place], [place] | | | | | | [address] | | | | | | [phone] | | | +--------+ + + + [...] | | | | | Amita Hines [place], | | | | | | [place] [address] | | | | | | [phone] | | | | | | | | +--------+---------+ + + + documented as of this encounter Visit Diagnoses Not on filedocumented in this encounter"
--- OUTSIDE RECORDS SUMMARY | ~2019-05-24 | XMS | Encounter Summary ---
Demographics + + + | Address | [address] | | | [place] [address] | + + + | Home Phone [...] Team Providers + +------+ + | Care Cargo Bracer Name | Role | Phone | + +------+ + | Kristian Anderson DO | PCP | | + +------+ + Encounter Details +--------+ + + + + | Date | Type | Department | Care Team | Description | +--------+ + + + + | 12/09/ | Procedure | Diagnostic Imaging | | | | 2016 | Pass | Services at [facility] | | | | | | [address] | | | | | | Amita Hines Mailcode: | | | | | | [address] | | | | | | [facility] | | | | | | [place], [place] | | | | | | [address] | | | | | | [phone] | | | +--------+ + + + [...] | | | | | | [place] [address] | | | | | | [phone] | | | | | | | | +--------+---------+ + + + documented as of this encounter Visit Diagnoses Not on filedocumented in this encounter"
--- OUTSIDE RECORDS SUMMARY | ~2019-05-24 | XMS | Encounter Summary ---
Demographics + + + | Address | [address] | | | [place] [address] | + + + | Home Phone [...] + + + | Author | [facility] | + + + | Organization | [facility] | + + + | Address | Unknown | + + + | Phone | Unavailable | + + + Support + + +---------+ + | Name | Relationship | Address | Phone | + + +---------+ + | Darrius Quintana | ECON | Unknown | | + + +---------+ + Care Team Providers + +------+ + | Care Stretcher Helper Name | Role | Phone | + +------+ + | Kristian Anderson DO | PCP | | + +------+ + Encounter Details +--------+ + + + + | Date | Type | Department | Care Team | Description | +--------+ + + + + | 06/28/ | Telephone | Digestive Health | Ailyn Wolff MD | | | 2018 | | [place] at [facility] [address] | [address] | | | | | [address] | Amita Hines [place], | | | | | Mailcode: [place] | [place] [address] | | | | | for Health and | [phone] | | | | | [address] [address] | | | | | | [place], [place] | | | | | | [address] | | | | | | [phone] | | | +--------+ + + + [...] | | | | | Amita Hines [facility] | | | | | | [place] [address] | | | | | | [phone] | | | | | | | | +--------+---------+ + + + documented as of this encounter Visit Diagnoses Not on filedocumented in this encounter"
--- OUTSIDE RECORDS SUMMARY | ~2019-05-24 | XMS | Encounter Summary ---
Demographics + + + | Address | [address] | | | [place] [address] | + + + | Home Phone [...] Team Providers + +------+ + | Care Cow Washer Name | Role | Phone | [...] | | 2017 | | Center at [facility] [address] | [address] | Review | | | | [address] | Amita Hines [place], | | | | | Mailcode: [place] | [place] [address] | | | | | for Health and | [phone] | | | | | [facility] 2 | | | | | | [place], [place] | | | | | | [address] | | | | | | [phone] | | | +--------+ + + + [...] | | | | | Amita Hines [place], | | | | | | [place] [address] | | | | | | [phone] | | | | | | | | +--------+---------+ + + + documented as of this encounter Visit Diagnoses Not on filedocumented in this encounter"
--- OUTSIDE RECORDS SUMMARY | ~2019-05-24 | XMS | Encounter Summary ---
Demographics + + + | Address | [address] | | | [place] [address] | + + + | Home Phone [...] Team Providers + +------+ + | Care Trouble Shooting Mechanic Name | Role | Phone | [...] + + | 03/13/ | Abstract | Digestive Health | Ailyn Wolff MD | Medical Records | | 2019 | | Center at [facility] [address] | [address] | Review | | | | [address] | Amita Hines [place], | | | | | Mailcode: [place] | [place] [address] | | | | | for Health and | [phone] | | | | | [facility] 2 | | | | | | [place], [place] | | | | | | [address] | | | | | | [phone] | | | +--------+ + + + [...] | | | | | Amita Hines [place], | | | | | | [place] [address] | | | | | | [phone] | | | | | | | | +--------+---------+ + + + documented as of this encounter Visit Diagnoses Not on filedocumented in this encounter"
--- OUTSIDE RECORDS SUMMARY | ~2019-05-24 | XMS | Encounter Summary ---
Demographics + + + | Address | [address] | | | [place] [address] | + + + | Home Phone [...] Providers + +------+ + | Care Senior Ui Software Engineer Name | Role | Phone | [...] | | 2019 | | Center at [facility] [address] | [address] | Received | | | | [address] | Amita Hines [place], | | | | | Mailcode: [place] | [place] [address] | | | | | for Health and | [phone] | | | | | [facility] 2 | | | | | | [place], [place] | | | | | | [address] | | | | | | [phone] | | | +--------+ + + + [...] | | | | | Amita Hines [place], | | | | | | [place] [address] | | | | | | [phone] | | | | | | | | +--------+---------+ + + + documented as of this encounter Visit Diagnoses Not on filedocumented in this encounter"
--- OUTSIDE RECORDS SUMMARY | ~2019-05-24 | XMS | Encounter Summary ---
Demographics + + + | Address | [address] | | | [place] [address] | + + + | Home Phone [...] Team Providers + +------+ + | Care Continuous Dryout Operator Name | Role | Phone | + +------+ + | Silvioct Kristian | PCP | | + +------+ + Encounter Details +--------+------+ + + + | Date | Type | Department | Care Team | Description | +--------+------+ + + + | 08/28/ | Lab | Laboratory at [facility] | | SABINA chung [facility] ([facility]) | | 2019 | | [address] | | | | | | [place], [place] | | | | | | [address] | | | | | | [phone] | | | +--------+------+ + + + [...] | | | | | Suzy Hines [place], | | | | | | [place] [address] | | | | | | [phone] | | | | | | | | +--------+---------+ + + + documented as of this encounter Procedures + +--------+ + + + | Procedure Name | Priori | Date/Time | Associated Diagnosis | Comments | | | ty | | | | + +--------+ + + + | [facility], | Routin | 08/28/2018 | CA of rectum (HCC) | Results for this | | SERUM | e | 8:50 AM | | procedure are in the | | | | PST | | results section. | + +--------+ + + + documented in this encounter Results [facility], SERUM (08/28/2018 [...] | + + + + + | [facility] | [address] | [place] [address] | | | SERVICES, CORE | [address] | | | + + + + + documented in this encounter Visit Diagnoses + + | Diagnosis | + + | CA of rectum (HCC) Malignant neoplasm of rectum | + + documented in this encounter"
--- OUTSIDE RECORDS SUMMARY | ~2019-05-24 | XMS | Encounter Summary ---
Demographics + + + | Address | [address] | | | [place] [address] | + + + | Home Phone [...] Team Providers + +------+ + | Care Graduation Coach Name | Role | Phone | + [...] | | | | CT ABDOMEN | [place], [place] | Mailcode: | | | | | AND PELVIS | [address] | [address] [facility] | | | | | W IV | Phone: | Hospital | | | | | CONTRAST [place] | [phone] | [place], [place] | | | | | CT | Fax: | [address] | | | | | ABDOMEN&PELV | [phone] | Phone: | | | | | IS | | [phone] | | | | | W/CONTRAST | | Fax: | | | | | | | [phone] | +--------+--------+ + + + + Diagnostic [...] | | | | MR RECTAL | [place], [place] | Mailcode: | | | | | W/WO [place] | [address] | [address] | | | | | MRI, PELVIS, | Phone: | [place] | | | | | COMBO | [phone] | Research | | | | | | Fax: | Center | | | | | | [phone] | [facility] [place] | | | | | | | [address] | | | | | | | Phone: | | | | | | | [phone] | | | | | | | Fax: | | | | | | | [phone] | +--------+--------+ + + + + Encounter Details +--------+ + + + + | Date | Type | Department | Care Team | Description | +--------+ + + + + | 09/22/ | Plastic Dolls Mold Filler | Digestive Health | Ailyn Wolff MD | Rectal cancer (HCC) | | 2017 | | [place] at [facility] [address] | [address] | (Primary Dx) | | | | [address] | Amita Hines [place], | | | | | Mailcode: [place] | [place] [address] | | | | | for [facility] and | [phone] | | | | | [facility], [facility] 2 | | | | | | [place], [place] | | | | | | [address] | | | | | | [phone] | | | +--------+ + + + [...] | | | | | Amita Hines [place], | | | | | | [place] [address] | | | | | | [phone] | | | | | | | [...]
--- OUTSIDE RECORDS SUMMARY | ~2019-05-24 | XMS | Encounter Summary ---
Demographics + + + | Address | [address] | | | [place] [address] | + + + | Home Phone [...] Team Providers + +------+ + | Care Cataract Lens Generator Name | Role | Phone | + +------+ + | Julius Andersonan | PCP | | + +------+ + Reason for Referral Consultation (Urgent) +--------+--------+ + + + + | Status | Reason | Specialty | Diagnoses / | Referred By | Referred To | | | | | Procedures | Contact | Contact | +--------+--------+ + + + + | Closed | | Radiation | Diagnoses | Ailyn Wolff, | | | | | Oncology | Rectal | [address] | Whit | | | | | cancer (HCC) | [address] | MD Wade | | | | | Procedures | Amita Hines | [address] | | | | | CONSULT TO | [place] | [address] | | | | | RADIATION | [address] | [place], | | | | | ONCOLOGY | Phone: | [place] | | | | | | [phone] | [address] | | | | | | Fax: | Phone: | | | | | | [phone] | [phone] | | | | | | | Fax: | | | | | | | [phone] | +--------+--------+ + + + + Encounter Details +--------+ + + + + | Date | Type | Department | Care Team | Description | +--------+ + + + + | 06/02/ | MyChart | Digestive Health | Ailyn Wolff MD | Info about my cancer | | 2017 | Encounter | [place] at [facility] [address] | [address] | | | | | [address] | Amita Hines [place], | | | | | Mailcode: [place] | [place] [address] | | | | | for Health and | [phone] | | | | | [facility], [facility] 2 | | | | | | [place], [place] | | | | | | [address] | | | | | | [phone] | | | +--------+ + + + [...] | | | | | Amita Hines [facility] | | | | | | [place] [address] | | | | | | [phone] | | | | | | | | +--------+---------+ + + + documented as of this encounter Visit Diagnoses + + | Diagnosis | + + | Rectal cancer (HCC) - Primary Malignant neoplasm of rectum | + + documented in this encounter"
--- OUTSIDE RECORDS SUMMARY | ~2019-05-24 | XMS | Encounter Summary ---
Demographics + + + | Address | [address] | | | [place] [address] | + + + | Home Phone [...] Team Providers + +------+ + | Care Digital Analyst Name | Role | Phone | [...] Report | | 2017 | on | [place] at [facility] [address] | [address] | (GI Oncology | | | | [address] | Amita Hines [place], | Planning Conference) | | | | Mailcode: [place] | [place] [address] | | | | | for Health and | [phone] | | | | | [facility] 2 | | | | | | [place], [place] | | | | | | [address] | | | | | | [phone] | | | +--------+ + + + [...] | | | | | [place], | | | | | | [place] [address] | | | | | | [phone] | | | | | | | | +--------+---------+ + + + documented as of this encounter Visit Diagnoses Not on filedocumented in this encounter"
--- OUTSIDE RECORDS SUMMARY | ~2019-05-24 | XMS | Encounter Summary ---
Demographics + + + | Address | [address] | | | [place] [address] | + + + | Home Phone [...] Providers + +------+ + | Care Dental Billing Specialist Name | Role | Phone | [...] Lab Results | | 2018 | | [place] [address] [address] | [address] | | | | | [address] | Park [facility], | | | | | Mailcode: [place] | [place] [address] | | | | | for Health and | [phone] | | | | | [facility] 2 | | | | | | [place], [place] | | | | | | [address] | | | | | | [phone] | | | +--------+ + + + [...] [address] | | | | | | Amtia Hines [place], | | | | | | [place] [address] | | | | | | [phone] | | | | | | | | +--------+---------+ + + + documented as of this encounter Visit Diagnoses Not on filedocumented in this encounter"
--- OUTSIDE RECORDS SUMMARY | ~2019-05-24 | XMS | Encounter Summary ---
Demographics + + + | Address | [address] | | | [place] [address] | + + + | Home Phone [...] Team Providers + +------+ + | Care Application Administrator Name | Role | Phone | [...] | | 2018 | | Center at [facility] [address] | [address] | Review | | | | [address] | Amita Hines [place], | | | | | Mailcode: [place] | [place] [address] | | | | | for Health and | [phone] | | | | | [facility] 2 | | | | | | [place], [place] | | | | | | [address] | | | | | | [phone] | | | +--------+ + + + [...] | | | | | Amita Hines [place], | | | | | | [place] [address] | | | | | | [phone] | | | | | | | | +--------+---------+ + + + documented as of this encounter Visit Diagnoses Not on filedocumented in this encounter"
--- OUTSIDE RECORDS SUMMARY | ~2019-05-24 | XMS | Encounter Summary ---
Demographics + + + | Address | [address] | | | [place] [address] | + + + | Home Phone [...] Team Providers + +------+ + | Care Plastic Sheets Supervisor Name | Role | Phone | [...] | 2017 | on | Center at [facility] [address] | [address] | (GI Oncology | | | | [address] | Amita Hines [place], | Planning Conference) | | | | Mailcode: [place] | [place] [address] | | | | | for Health and | [phone] | | | | | [facility] 2 | | | | | | [place], [place] | | | | | | [address] | | | | | | [phone] | | | +--------+ + + + [...] | | | | | [place], | | | | | | [place] [address] | | | | | | [phone] | | | | | | | | +--------+---------+ + + + documented as of this encounter Visit Diagnoses Not on filedocumented in this encounter"
--- OUTSIDE RECORDS SUMMARY | ~2019-05-24 | XMS | Encounter Summary ---
Demographics + + + | Address | [address] | | | [place] [address] | + + + | Home Phone [...] Providers + +------+ + | Care Social Science Analyst Name | Role | Phone | [...] | | 2018 | | Center at [facility] [address] | [address] | Review | | | | [address] | Amita Hines [employer], | | | | | Mailcode: [place] | [place] [address] | | | | | for Health and | [phone] | | | | | [facility] 2 | | | | | | [place], [place] | | | | | | [address] | | | | | | [phone] | | | +--------+ + + + [...] | | | | | Amita Hines [place], | | | | | | [place] [address] | | | | | | [phone] | | | | | | | | +--------+---------+ + + + documented as of this encounter Visit Diagnoses Not on filedocumented in this encounter"
--- OUTSIDE RECORDS SUMMARY | ~2019-05-24 | XMS | Encounter Summary ---
Demographics + + + | Address | [address] | | | [place] [address] | + + + | Home Phone [...] Providers + +------+ + | Care Medical Driver Name | Role | Phone | [...] | | | | CT CHEST, | [place], [place] | Mailcode: | | | | | ABDOMEN AND | [address] | [address] [facility] | | | | | PELVIS W IV | Phone: | Hospital | | | | | CONTRAST [place] | [phone] | [employer], [place] | | | | | CAT SCAN OF | Fax: | [address] | | | | | CHEST | [phone] | Phone: | | | | | CONTRAST [place] | | [phone] | | | | | CT | | Fax: | | | | | ABDOMEN&PELV | | [phone] | | | | | IS | | | | | | | W/CONTRAST | | | +--------+--------+ + + + + Encounter Details +--------+ + + + + | Date | Type | Department | Care Team | Description | +--------+ + + + + | 04/19/ | Golf Tournament Consultant | Digestive Health | Ailyn Wolff MD | Colorectal cancer | | 2017 | | [place] at [facility] [address]85 | [address] | (HCC) (Primary Dx) | | | | [address] | Amita Hines [employer], | | | | | Mailcode: [place] | [place] [address] | | | | | for Health and | [phone] | | | | | [facility], Building 2 | | | | | | [place], [place] | | | | | | [address] | | | | | | [phone] | | | +--------+ + + + [...] | | | | | Amita Hines [employer], | | | | | | [place] [address] | | | | | | [phone] | | | | | | | [...]
--- OUTSIDE RECORDS SUMMARY | ~2019-05-24 | XMS | Encounter Summary ---
Demographics + + + | Address | [address] | | | [place] [address] | + + + | Home Phone [...] Team Providers + +------+ + | Care Gallery Or Museum Technician Name | Role | Phone | + +------+ + | Kristian Anderson DO | PCP | | + +------+ + Encounter Details +--------+ + + + + | Date | Type | Department | Care Team | Description | +--------+ + + + + | 04/21/ | Procedure | 6A Intra Op [facility] | | | | 2016 | Pass | [facility] | | | | | | Admitting Desk | | | | | | Located on the 9th | | | | | | floor [address] [facility] | | | | | | [address] | | | | | | [place], [place] | | | | | | [address] | | | +--------+ + + + [...] | | | | | Amita Hines [place], | | | | | | [place] [address] | | | | | | [phone] | | | | | | | | +--------+---------+ + + + documented as of this encounter Visit Diagnoses Not on filedocumented in this encounter"
--- OUTSIDE RECORDS SUMMARY | ~2019-05-24 | XMS | Encounter Summary ---
Demographics + + + | Address | [address] | | | [place] [address] | + + + | Home Phone [...] Team Providers + +------+ + | Care Iv Rn Name | Role | Phone | + [...] 2018 | | Center at [facility] [address] | [address] | Received | | | | [address] | Amita Hines [place], | | | | | Mailcode: [place] | [place] [address] | | | | | for Health and | [phone] | | | | | [facility] 2 | | | | | | [place], [place] | | | | | | [address] | | | | | | [phone] | | | +--------+ + + + [...] | | | | | Amita Hines [place], | | | | | | [place] [address] | | | | | | [phone] | | | | | | | | +--------+---------+ + + + documented as of this encounter Visit Diagnoses Not on filedocumented in this encounter"
--- OUTSIDE RECORDS SUMMARY | ~2019-05-24 | XMS | Encounter Summary ---
Demographics + + + | Address | [address] | | | [place] [address] | + + + | Home Phone [...] Team Providers + +------+ + | Care Ticket Taker Ferryboat Name | Role | Phone | + [...] Lab Results | | 2018 | | [place] [address] [address] | [address] | | | | | [address] | Park [facility], | | | | | Mailcode: [place] | [place] [address] | | | | | for Health and | [phone] | | | | | [facility] 2 | | | | | | [place], [place] | | | | | | [address] | | | | | | [phone] | | | +--------+ + + + [...] | | | | | Amita Hines [place], | | | | | | [place] [address] | | | | | | [phone] | | | | | | | | +--------+---------+ + + + documented as of this encounter Visit Diagnoses Not on filedocumented in this encounter"
--- OUTSIDE RECORDS SUMMARY | ~2019-05-24 | XMS | Encounter Summary ---
Demographics + + + | Address | [address] | | | [place] [address] | + + + | Home Phone [...] Team Providers + +------+ + | Care Inside Sales Assistant Name | Role | Phone | [...] | 2018 | | Center at [facility] [address] | [address] | Review | | | | [address] | Amita Hines [place], | | | | | Mailcode: [place] | [place] [address] | | | | | for Health and | [phone] | | | | | [facility] 2 | | | | | | [place], [place] | | | | | | [address] | | | | | | [phone] | | | +--------+ + + + [...] | | | | | Amita Hines [place], | | | | | | [place] [address] | | | | | | [phone] | | | | | | | | +--------+---------+ + + + documented as of this encounter Visit Diagnoses Not on filedocumented in this encounter"
--- OUTSIDE RECORDS SUMMARY | ~2019-05-24 | XMS | Encounter Summary ---
Demographics + + + | Address | [address] | | | [place] [address] | + + + | Home Phone | | + + + | Preferred Language | Unknown | + + + | Marital Status | Single | + + + | Latter-Day Affiliation | NON | + + + [...] Providers + +------+ + | Care Fire Control Officer Name | Role | Phone | + +------+ + | Justin Kristian | PCP | | + +------+ + Encounter Details +--------+ + + + + | Date | Type | Department | Care Team | Description | +--------+ + + + + | 09/22/ | Procedure | [facility] | | | | 2017 | Pass | [place] at | | | | | | [place] [address] | | | | [address] | | | | | | [place], [place] | | | | | | [address] | | | | | | [phone] | | | +--------+ + + + [...] | | | | | Amita Hines [place], | | | | | | [place] [address] | | | | | | [phone] | | | | | | | | +--------+---------+ + + + documented as of this encounter Visit Diagnoses Not on filedocumented in this encounter"
--- OUTSIDE RECORDS SUMMARY | ~2019-05-24 | XMS | Encounter Summary ---
Demographics + + + | Address | [address] | | | [place] [address] | + + + | Home Phone [...] Team Providers + +------+ + | Care Bus Company Manager Name | Role | Phone | [...] Radiology Order | | 2018 | | [place] [address] [address] | [address] | | | | | [address] [place], | | | | | Mailcode: [place] | [place] [address] | | | | | for Health and | [phone] | | | | | [facility] 2 | | | | | | [place], [place] | | | | | | [address] | | | | | | [phone] | | | +--------+ + + + [...] | | | | | [address] [place], | | | | | | [place] [address] | | | | | | [phone] | | | | | | | | +--------+---------+ + + + documented as of this encounter Visit Diagnoses Not on filedocumented in this encounter"
--- OUTSIDE RECORDS SUMMARY | ~2019-05-24 | XMS | Encounter Summary ---
Demographics + + + | Address | [address] | | | [place] [address] | + + + | Home Phone [...] Team Providers + +------+ + | Care Action Installer Name | Role | Phone | [...] | | 2019 | | Center at [facility] [address] | [address] | Review | | | | [address] | Amita Hines [place], | | | | | Mailcode: [place] | [place] [address] | | | | | for Health and | [phone] | | | | | [facility] 2 | | | | | | [place], [place] | | | | | | [address] | | | | | | [phone] | | | +--------+ + + + [...] | | | | | Amita Hines [place], | | | | | | [place] [address] | | | | | | [phone] | | | | | | | | +--------+---------+ + + + documented as of this encounter Visit Diagnoses Not on filedocumented in this encounter"
--- OUTSIDE RECORDS SUMMARY | ~2019-05-24 | XMS | Encounter Summary ---
Demographics + + + | Address | [address] | | | [place] [address] | + + + | Home Phone [...] Team Providers + +------+ + | Care Blow Machine Tender Starch Spraying Name | Role | Phone | + [...] | | | | MR RECTAL | [place], [place] | Mailcode: | | | | | [place] | [address] | [address] | | | | | MRI, PELVIS, | Phone: | [facility] | | | | | COMBO | [phone] | Research | | | | | | Fax: | Center | | | | | | [phone] | [place], [place] | | | | | | | [address] | | | | | | | Phone: | | | | | | | [phone] | | | | | | | Fax: | | | | | | | [phone] | +--------+--------+ + + + + Reason [...] | | | MR RECTAL | [facility] [place] | Mailcode: | | | | | [place] | [address] | [address] | | | | | MRI, PELVIS, | Phone: | [facility] | | | | | COMBO | [phone] | Research | | | | | | Fax: | Center | | | | | | [phone] | [place], [place] | | | | | | | [address] | | | | | | | Phone: | | | | | | | [phone] | | | | | | | Fax: | | | | | | | [phone] | +--------+--------+ + + + + Encounter Details +--------+ + + + + | Date | Type | Department | Care Team | Description | +--------+ + + + + | 03/02/ | Hospital | Diagnostic Imaging | Ailyn Wolff MD | | | 2017 | Encounter | Services at [facility] | [address] | | | | | [address] | [place]mita [place], | | | | | [place]mita [place] Mailcode: | [place] [address] | | | | | [address] | [phone] | | | | | [facility] | | | | | | [place], [place] | | | | | | [address] | | | | | | [phone] | | | +--------+ + + + [...] | 2019 | Visit | | [address] | | | | | | [place], | | | | | | [place] [address] | | | | | | [phone] | | | | | | | [...]
--- OUTSIDE RECORDS SUMMARY | ~2019-05-24 | XMS | Encounter Summary ---
Demographics + + + | Address | [address] | | | [place] [address] | + + + | Home Phone [...] Team Providers + +------+ + | Care Copy Chief Name | Role | Phone | [...] | | 2017 | | Center at [facility] [address] | [address] | Review | | | | [address] | Amita Hines [place], | | | | | Mailcode: [place] | [place] [id number] | | | | | for Health and | [phone] | | | | | [facility] 2 | | | | | | [place], [place] | | | | | | [address] | | | | | | [phone] | | | +--------+ + + + [...] | | | | | Amita Hines [place], | | | | | | [place] [address] | | | | | | [phone] | | | | | | | | +--------+---------+ + + + documented as of this encounter Visit Diagnoses Not on filedocumented in this encounter"
--- OUTSIDE RECORDS SUMMARY | ~2019-05-24 | XMS | Encounter Summary ---
Demographics + + + | Address | [address] | | | [place] [address] | + + + | Home Phone [...] Providers + +------+ + | Care Metal Mover Name | Role | Phone | + [...] | | | | CT ABDOMEN | [place], [place] | Mailcode: | | | | | AND PELVIS | [address] | [address] [facility] | | | | | W IV | Phone: | Hospital | | | | | CONTRAST [place] | [phone] | [place], [place] | | | | | CT | Fax: | [address] | | | | | ABDOMEN&PELV | [phone] | Phone: | | | | | IS | | [phone] | | | | | W/CONTRAST | | Fax: | | | | | | | [phone] | +--------+--------+ + + + + Diagnostic [...] | | | | MR RECTAL | [place], [place] | Mailcode: | | | | | W/WO [place] | [address] | [address] | | | | | MRI, PELVIS, | Phone: | [place] | | | | | COMBO | [phone] | Research | | | | | | Fax: | Center | | | | | | [phone] | [facility] [place] | | | | | | | [address] | | | | | | | Phone: | | | | | | | [phone] | | | | | | | Fax: | | | | | | | [phone] | +--------+--------+ + + + + Encounter Details +--------+ + + + + | Date | Type | Department | Care Team | Description | +--------+ + + + + | 09/22/ | [employer] | Digestive Health | Ailyn Wolff MD | Rectal cancer (HCC) | | 2017 | | [place] at [facility] [address] | [address] | (Primary Dx) | | | | [address] | Amita Hines [place], | | | | | Mailcode: [place] | [place] [address] | | | | | for [facility] and | [phone] | | | | | [facility], [facility] 2 | | | | | | [place], [place] | | | | | | [address] | | | | | | [phone] | | | +--------+ + + + [...] | | | | | Amita Hines [place], | | | | | | [place] [address] | | | | | | [phone] | | | | | | | [...]
--- OUTSIDE RECORDS SUMMARY | ~2019-05-24 | XMS | Encounter Summary ---
Demographics + + + | Address | [address] | | | [place] [address] | + + + | Home Phone [...] Team Providers + +------+ + | Care Quality Control Specialist Name | Role | Phone | [...] [address] | | | | | | [place], [place] | | | | | | [address] | | | +--------+ + + + [...] | | | Amita Hines [facility] | | | | | | [place] [address] | | | | | | [phone] | | | | | | | [...]
--- OUTSIDE RECORDS SUMMARY | ~2019-05-24 | XMS | Encounter Summary ---
Demographics + + + | Address | [address] | | | [place] [address] | + + + | Home Phone [...] Team Providers + +------+ + | Care Diagram Clerk Name | Role | Phone | [...] | | | | Epic Dept | [address] | | | | | | | [address] | | | | | | | Amita Hines | | | | | | | [place], [place] | | | | | | | [address] | | | | | | | Phone: | | | | | | | [phone] | | | | | | | Fax: | | | | | | | [phone] | +--------+--------+ + + + + Encounter Details +--------+---------+ + + + | Date | Type | Department | Care Team | Description | +--------+---------+ + + + | 11/21/ | Office | Digestive Health | Ailyn Wolff MD | CA of rectum (HCC) | | 2018 | Visit | Center at [facility] [address] | [address] | (Primary Dx) | | | | [address] | Amita Hines [place], | | | | | Mailcode: [place] | [place] [address] | | | | | for Health and | [phone] | | | | | Healing, Building 2 | | | | | | [place], [place] | | | | | | [address] | | | | | | [phone] | | | +--------+---------+ + + + [...] + + + | Blood Pressure | 132/85 | 11/21/2017 2:04 PM | | | | | PDT | | + + + + + | Pulse | 81 | 11/21/2017 2:04 PM | | | | | PDT | | + + + + + | Temperature | 36.8 C (98.3 F) | 11/21/2017 2:04 PM | | | | | PDT | | + + + + + | Respiratory Rate | 14 | 11/21/2017 2:04 PM | | | | | PDT | | + + + + + | Oxygen Saturation | - | - | | + + + + + | Inhaled Oxygen | - | - | | | Concentration | | | | + + + + + | Weight | 79.1 kg (174 lb 4.8 | 11/21/2017 2:04 PM | | | | oz) | PDT | | + + + + + | Height | 160 cm (5' 3") | 11/21/2017 2:04 PM | | | | | PDT | | + + + + + | Body Mass Index | 30.88 | 11/21/2017 2:04 PM | | | | | PDT [...] Instructions Patient Instructions Ailyn Wolff MD - 11/21/2017 1:40 PM PDTPlan: See me back in 3 months. Ok to remove port. documented in this encounter Progress Notes Emily Gresham MA - 11/21/2017 1:40 PM PDTExamination chaperoned by Emily Levi CMA. Ailyn Mcfarland MD - 11/21/2017 1:40 PM PDTCOLON AND RECTAL SURGERY Attending Clinic Note Established Patient Assessment: 57 y.o. female with htn, elevated lipids, heartburn, nephrolithiasis, and liche n sclerosus endoscopically obstructing mriT4 N0 M0 rectal mass (6 cm from verge) invading vagina rectal urgency and a lot of rectal bleeding on 07/19/[address] [facility] ED CT abdomen/pelvis with IV contrast [...] (10/05/16) no liver metastases rigid proctoscopy by mi (10/05/16) 6 cm from anal verge presented at the [facility] Multidisciplinary GI Oncology Conference on [...] to Mendoza pouch staple line presented at [facility] Multidisciplinary GI Oncology Conference on [...] MRI ([facility], 05/17/17) close to pelvic sidewall [facility] Multidisciplinary GI Oncology Conference (06/02/17) [...] resection with primary anastomosis, placement of a 19-Fijian Albert drain through the right lower quadrant [...] size of pelvic mass CEA (10/31/17) 1.3 acceptable nutrition albumin (09/13/16) 3.5 quit smoking on 07/19/16 Plan: See me back in 3 months. Ok to remove port. 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 Islas on 10/31/17 No perineal drainage. No perineal pain. 2-3/10 parastomal pain 1-2 times a week. Oxyc odone 1 tab twice a day. No fevers or chills. Anorexia. Tolerating her diet. No nausea or emesis. She emptied her colostomy bag 3-4 times a day. She changes her colostomy bag t wice a week. She sees some bleeding and itching when she changes her appliance. Difficult to tell when she needs to urinate. Urinary incontinence. Wears pad during the d ay and diaper at night. Hurt her hand when she fell. Got no more blood on 08/15/17. Less numbness right upper thig h. Improving memory. All other systems reviewed and are negative. She comes for routine cancer surveillance. Objective: BP 132/85 | Pulse 81 | Temp (Src) 36.8 C (98.3 F) (Oral) | RR 14 | Ht 1.6 m (5' 3") | Wt 79.1 kg (174 lb 4.8 oz) | BMI 30.88 kg/(m^2) General: well-developed, well-nourished female in NAD Mental Status: A&O x 4 Neurologic: moves all extremities well HEENT: anicteric sclera, EOMI Abd: soft, midline incision without hernia, viable left-sided ostomy with parastomal hernia , mild RLQ tenderness, nondistended Extremities: no calf tenderness, no clubbing/cyanosis/edema Perineum: healed, no signs of infection or mass With this Return/Re-evaluation patient, I spent 13 minutes of tjqv-nf-sifi time, of which m ore than half the time was spent in counseling. 10 minute document review do cumented in this encounter Plan of Treatment +--------+---------+ + + + | Date | Type | Specialty | Care Team | Description | +--------+---------+ + + + | 06/18/ | Office | Surgery | Ailyn Wolff MD | | | 2018 | Visit | | [address] | | | | | | [place]mit[place], | | | | | | [place] [address] | | | | | | [phone] | | | | | | | | +--------+---------+ + + + documented as of this encounter Visit Diagnoses + + | Diagnosis | + + | 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
--- OUTSIDE RECORDS SUMMARY | ~2019-05-24 | XMS | Encounter Summary ---
Demographics + + + | Address | [address] | | | [place] [address] | + + + | Home Phone [...] Team Providers + +------+ + | Care Assistant Health Educator Name | Role | Phone | + [...] | | | | [facility] | [place], [place] | | | | | [place] [address] | [address] | | | | | [place], [place] | | | | | | [address] | | | | | | [phone] | | | +--------+ + + + [...] | | | | | Amita Hines [place], | | | | | | [place] [address] | | | | | | [phone] | | | | | | | | +--------+---------+ + + + documented as of this encounter Visit Diagnoses Not on filedocumented in this encounter"
--- OUTSIDE RECORDS SUMMARY | ~2019-05-24 | XMS | Encounter Summary ---
Demographics + + + | Address | [address] | | | [place] [address] | + + + | Home Phone [...] Team Providers + +------+ + | Care Hvac Design Engineer Name | Role | Phone | [...] + + + + | 07/28/ | Abstract | Digestive Health | Ailyn Wolff MD | Medical Records | | 2019 | | Center at [facility] [address] | [address] | Review | | | | [address] | Amita Hines [place], | | | | | Mailcode: [place] | [place] [address] | | | | | for Health and | [phone] | | | | | [facility] 2 | | | | | | [place], [place] | | | | | | [address] | | | | | | [phone] | | | +--------+ + + + [...] | | | | | Amita Hines [place], | | | | | | [place] [address] | | | | | | [phone] | | | | | | | | +--------+---------+ + + + documented as of this encounter Visit Diagnoses Not on filedocumented in this encounter"
--- OUTSIDE RECORDS SUMMARY | ~2019-05-24 | XMS | Encounter Summary ---
Demographics + + + | Address | [address] | | | [place] [address] | + + + | Home Phone [...] Team Providers + +------+ + | Care Claim Service Representative Name | Role | Phone | [...] Visit | Medicine Clinic at | R, LUBRICATING ENGINEER [address] | Dx); Rectal cancer | | | | [facility] 4th Floor [address] | ([facility]); Former | | | | [address] | [place], [place] | smoker; Anxiety and | | | | Mailcode: [facility] | [address] | depression; Other | | | | [facility] | [phone] | chronic pain; | | | | and Healing, | | Hypertension, | | | | Building 1,4th Floor | | unspecified type; | | | | [place], [place] | | Diabetes mellitus | | | | [address] | | screening | | | | [phone] | | | +--------+---------+ + + + [...] out when getting out of | Selena eLmus RN | Zeny Dunn RN | | | bed. pain service paged) | | | +--------+ + + + | Periph | 06/30/17; 0816; Mik Ortiz; | 06/30/17 0816 by | 07/02/17 1217 by | | eral | Left; Wrist; 18 g; Positive; | La Nena Domínguez, | Jannette [address] RN | | IV | 07/02/17; 1217 | ADULT CROSSING GUARD | | +--------+ + + + | [...] or walk. Surgery check-in location: Admitting - [facility], ninth floor [facility] Surgery Check in Time: The Preoperative [...] it is after office hours, call the [facility] stripper machine operator at [phone] and ask them to page him or [...] Chronic low back/left LQ pain - takes [place] 5-325, 1-2 tabs/day Bone spurs in neck [...] fluid and anterior hernia) - 1-2 tabs [place] as needed daily) Chron ic pain > [...] breast Hypertension Mother Heart Attack Father from [place] at age 52 Diabetes Father Heart Attack [...] Applicable ASSESSMENT and RECOMMENDATIONS: Perioperative risk assessment: eJnn Parada is a 56 y.o. female with [...] Chronic low back/left LQ pain - takes [place] 5-325, 1-2 tabs/day. Continue as needed. Bone [...] to this patient's care. Zeny Riley NP [facility] PREOPERATIVE MEDICINE CLINIC AT [facility] 4TH FLOOR [address] [place] [address] I counseled the pt [...] | | | | | Suzy [place], | | | | | | [place] [address] | | | | | | [phone] | | | | | | | | +--------+---------+ + + + documented as of this encounter Procedures + +--------+ + + + | Procedure Name | Priori | Date/Time | Associated Diagnosis | Comments | | | ty | | | | + +--------+ + + + | AR COLLECTION VENOUS | Routin | 06/13/2017 | [...] DEPT OF | [address] | [place], [place] | | | CARDIOLOGY | [address] | [address] | | + + + + + [...] [facility] | [address] | [place] [address] | | | SERVICES, | [address] [...] [facility] | [address] | [place] [id number] | | | SERVICES, CORE | SUZY [...] | [facility] | | considered for monitoring termite helper glycemic control in patients with: | LABORATORY [...] [facility] | [address] | [place] [address] | | | SERVICES, SPECIAL | [address] [...] | + + + + + | [facility]) | [address] | [place] [address] | | | SERVICES, | [address] [...] [facility] | [address] | [place] [address] | | | SERVICES, | [address] [...] | + + + + + | [facility] | [address] | [place] [address] | | | CAR TELLO | SUZY [...] | | | LABORATORY | | | [place]LANDER | | | SERVICES, | | [...] + + + + + | [facility] | [address] | [place] [address] | | | SERVICES, CAR | SUZY [...]
--- OUTSIDE RECORDS SUMMARY | ~2019-05-24 | XMS | Encounter Summary ---
Demographics + + + | Address | [address] | | | [place] [address] | + + + | Home Phone [...] Providers + +------+ + | Care Beauty Parlor Cleaner Name | Role | Phone | [...] | | | | [facility] | [place], [place] | | | | | [place] [address] | [address] | | | | | [place], [place] | | | | | | [address] | | | | | | [phone] | | | +--------+ + + + [...] | | 18 | | | | 285329, Skin prep: | | | | | | | 3M 3344 (30/mo), Adh | | | | | | | Rem HO 7760 | | | | | | | (1box/mo), Rings: HO | | | | | | | 8805 (10/mo), | | | | | | | Deodorant: HO [address] | | | | | | | (60/mo), Pwdr: CT | | | | | | | [id number] (1oz/mo), | | | | | | | Belt: Lrg (2/mo) | | | | | | | and Irrigation CO | | | | | | | 600226, [place] | | | | | | | [id number] | | | | | + + [...] | | | | | Amita Hines [place], | | | | | | [place] [address] | | | | | | [phone] | | | | | | | | +--------+---------+ + + + documented as of this encounter Visit Diagnoses Not on filedocumented in this encounter"
--- OUTSIDE RECORDS SUMMARY | ~2019-05-24 | XMS | Encounter Summary ---
Demographics + + + | Address | [address] | | | [place] [address] | + + + | Home Phone [...] Team Providers + +------+ + | Care Mathematics Academic Chair Name | Role | Phone | + [...] | | | | Pre-operativ | [address] | | | | | | e | [address] | | | | | | cardiovascul | [place], | | | | | | ar | [place] | | | | | | examination | [address] | | | | | | Tobacco | Phone: | | | | | | abuse | [phone] | | | | | | Dyspnea, | Fax: | | | | | | unspecified | [phone] | | | | | | type [...] | | | | | | at [facility] [address] | | | | | | [address] Mailcode: | | | | | | [facility] [place] for | | | | | | Health and Healing, | | | | | | Building 1 | | | | | | [place], [place] | | | | | | [address] | | | | | | [phone] | | | +--------+ + + + [...] | | 2018 | Visit | | [address] | | | | | | Amita Hines [place], | | | | | | [place] [address] | | | | | | [phone] | | | | | | | [...]
--- OUTSIDE RECORDS SUMMARY | ~2019-05-24 | XMS | Encounter Summary ---
Demographics + + + | Address | [address] | | | [place] [address] | + + + | Home Phone [...] Providers + +------+ + | Care Manager Subway Name | Role | Phone | + [...] | | [address] | Amita Hines [place], | | | | | Mailcode: [place] | [place] [address] | | | | | for Health and | [phone] | | | | | [facility], [facility] 2 | | | | | | [place], [place] | | | | | | [address] | | | | | | [phone] | | | +--------+ + + + [...] | | | | | Amita Hines [place], | | | | | | [place] [address] | | | | | | [phone] | | | | | | | | +--------+---------+ + + + documented as of this encounter Visit Diagnoses Not on filedocumented in this encounter"
--- OUTSIDE RECORDS SUMMARY | ~2019-05-24 | XMS | Encounter Summary ---
Demographics + + + | Address | [address] | | | [place] [address] | + + + | Home Phone [...] Team Providers + +------+ + | Care Bilingual Teacher Assistant Name | Role | Phone | [...] | | | | | Amita Hines [place], | | | | | | [place] [address] | | | | | | [phone] | | | | | | | | +--------+---------+ + + + documented as of this encounter Visit Diagnoses Not on filedocumented in this encounter"
--- OUTSIDE RECORDS SUMMARY | ~2019-05-24 | XMS | Encounter Summary ---
Demographics + + + | Address | [address] | | | [place] [address] | + + + | Home Phone [...] Team Providers + +------+ + | Care Detail Supervisor Name | Role | Phone | [...] | | 2019 | | Center at [facility] [address] | [address] | Received | | | | [address] | Amita Hines [place], | | | | | Mailcode: [place] | [place] [address] | | | | | for Health and | [phone] | | | | | [facility] 2 | | | | | | [place], [place] | | | | | | [address] | | | | | | [phone] | | | +--------+ + + + [...] | | | | | Amita Hines [place], | | | | | | [place] [address] | | | | | | [phone] | | | | | | | | +--------+---------+ + + + documented as of this encounter Visit Diagnoses Not on filedocumented in this encounter"
--- OUTSIDE RECORDS SUMMARY | ~2019-05-24 | XMS | Encounter Summary ---
Demographics + + + | Address | [address] | | | [place] [address] | + + + | Home Phone [...] Team Providers + +------+ + | Care Rotor Blade Installer Name | Role | Phone | [...] | | | | [facility] | [place], [place] | | | | | [place] [address] | [address] | | | | | [place], [place] | | | | | | [address] | | | | | | [phone] | | | +--------+ + + + [...] | | | | | Amita Hines [place], | | | | | | [place] [address] | | | | | | [phone] | | | | | | | | +--------+---------+ + + + documented as of this encounter Visit Diagnoses Not on filedocumented in this encounter"
--- OUTSIDE RECORDS SUMMARY | ~2019-05-24 | XMS | Encounter Summary ---
Demographics + + + | Address | [address] | | | [place] [address] | + + + | Home Phone [...] Team Providers + +------+ + | Care Radar Technician Name | Role | Phone | [...] Visit | Medicine Clinic at | R, COSMETIC SALES CONSULTANT [address] | Dx); Rectal cancer | | | | [facility] 4th Floor [address] | ([facility]); Former | | | | [address] | [place], [place] | smoker; Anxiety and | | | | Mailcode: [facility] | [address] | depression; Other | | | | [facility] | [phone] | chronic pain; | | | | and Healing, | | Hypertension, | | | | Building 1,4th Floor | | unspecified type; | | | | [place], [place] | | Diabetes mellitus | | | | [address] | | screening | | | | [phone] | | | +--------+---------+ + + + [...] | | IV | 07/02/17; 1217 | WELLNESS RN | | +--------+ + + + [...] - [facility], ninth floor [facility] Surgery Check in Time: The Preoperative [...] is after office hours, call the [facility] novelty twister operator at [phone] and ask them to page him or [...] Chronic low back/left LQ pain - takes [place] 5-325, 1-2 tabs/day Bone spurs in neck [...] fluid and anterior hernia) - 1-2 tabs [place] as needed daily) Chron ic pain > [...] breast Hypertension Mother Heart Attack Father from [place] at age 52 Diabetes Father Heart Attack [...] Chronic low back/left LQ pain - takes [place] 5-325, 1-2 tabs/day. Continue as needed. Bone [...] this patient's care. Zeny Riley NP [facility] PREOPERATIVE MEDICINE CLINIC AT [facility] 4TH FLOOR [address] [facility] [place] [address] I counseled the pt [...] | | | | | Suzy Hines [place], | | | | | | [place] [address] | | | | | | [phone] | | | | | | | | +--------+---------+ + + + documented as of this encounter Procedures + +--------+ + + + | Procedure Name | Priori | Date/Time | Associated Diagnosis | Comments | | | ty | | | | + +--------+ + + + | [place] COLLECTION VENOUS | Routin | 06/13/2017 | [...] DEPT OF | [address] | [place], [place] | | | CARDIOLOGY | [address] | [address] | | + + + + + [...] [facility] | [address] | [place] [address] | | | SERVICES, | [address] [...] [facility] | [address] | [place] [address] | | | SERVICES, CORE | SUZY [...] | [facility] | | considered for monitoring long term care administrator glycemic control in patients with: | LABORATORY [...] [facility] | [address] | [place] [address] | | | SERVICES, SPECIAL | [address] [...] | + + + + + | [facility] | [address] | [place] [address] | | | SERVICES, | [address] [...] [facility] | [address] | [place] [address] | | | SERVICES, | [address] [...] | + + + + + | [facility] | [address] | [place] [address] | | | CAR TELLO | SUZY [...] | | | LABORATORY | | | [place] | | | SERVICES, | | | [...] + + + + + | [facility] | [address] | [place] [address] | | | SERVICES, CAR | SUZY [...]
--- OUTSIDE RECORDS SUMMARY | ~2019-05-24 | XMS | Encounter Summary ---
Demographics + + + | Address | [address] | | | [place] [address] | + + + | Home Phone [...] Team Providers + +------+ + | Care Pre Billing Clinician Name | Role | Phone | + +------+ + | Kristian Anderson DO | PCP | | + +------+ + Encounter Details +--------+ + + + + | Date | Type | Department | Care Team | Description | +--------+ + + + + | 05/22/ | MyChart | Digestive Health | Ailyn Wolff MD | RE: flu shot | | 2018 | Encounter | Center at [facility] [address] | [address] | | | | | [address] | Amita Hines [place], | | | | | Mailcode: [place] | [place] [address] | | | | | for Health and | [phone] | | | | | [facility], [facility] 2 | | | | | | [place], [place] | | | | | | [address] | | | | | | [phone] | | | +--------+ + + + [...] | | | | | Amita Hines [place], | | | | | | [place] [address] | | | | | | [phone] | | | | | | | | +--------+---------+ + + + documented as of this encounter Visit Diagnoses Not on filedocumented in this encounter"
--- OUTSIDE RECORDS SUMMARY | ~2019-05-24 | XMS | Encounter Summary ---
Demographics + + + | Address | [address] | | | [place] [address] | + + + | Home Phone [...] Team Providers + +------+ + | Care Kaiako Kura Tuarua Name | Role | Phone | + [...] | | | | | | | [address] | | | | | | [address] | | | | | | | Mailcode: | | | | | | | [place] [facility] | | | | | | | Health and | | | | | | | Healing, | | | | | | | Building [address] | | | | | | | [place], [place] | | | | | | | [address] | | | | | | | Phone: | | | | | | | [phone] | | | | | | | Fax: | | | | | | | [phone] | + +--------+ + + + + Encounter Details +--------+---------+ + + + | Date | Type | Department | Care Team | Description | +--------+---------+ + + + | 11/27/ | Office | Digestive Health | Ailyn Wolff MD | Rectal cancer (HCC) | | 2019 | Visit | Center at [facility] [address] | [address] | (Primary Dx) | | | | [address] Suzy [address], | | | | | Mailcode: [place] | [place] [address] | | | | | for Health and | [phone] | | | | | [facility] 2 | | | | | | [place], [place] | | | | | | [address] | | | | | | [phone] | | | +--------+---------+ + + + [...] on 07/19/16 went to the [facility] ED CT abdomen/pelvis with IV [...] from anal verge presented at the [facility] Multidisciplinary GI Oncology Conference on [...] to Mendoza pouch staple line presented at [facility] Multidisciplinary GI Oncology Conference on [...] MRI ([facility], 05/17/17) close to pelvic sidewall [facility] Multidisciplinary GI Oncology Conference (06/02/17) [...] resection with Primary anastomosis, placement of a 19-Qatari Albert drain through the right lower quadrant [...] resection with primary anastomosis, placement of a 19-Qatari Albert drain through the right lower quadrant [...] Return/Re-evaluation patient, I spent 11 minutes of lvxb-wf-eosh time, of which m ore than half [...] | | | | | Suzy [place], | | | | | | [place] [address] | | | | | | [phone] | | | | | | | [...] CHAPIN JESSICA | [address] | [place] [address] | | | SERVICES, CORE | [address] | | | + + + + + documented in this encounter Visit Diagnoses + + | Diagnosis | + + | Rectal cancer (HCC) - Primary Malignant neoplasm of rectum | + + documented in this encounter
--- OUTSIDE RECORDS SUMMARY | ~2019-05-24 | XMS | Encounter Summary ---
Demographics + + + | Address | [address] | | | [place] [address] | + + + | Home Phone [...] Team Providers + +------+ + | Care Solar Energy System Installer Helper Name | Role | Phone | [...] | Malignant | Marty Toledo MD | [address] | | | | | neoplasm of | [place] | [address] | | | | | rectum | SURGICAL | Amita Hines | | | | | | CLINIC [address] | [place], [place] | | | | | | [address] | [address] | | | | | | AVE | Phone: | | | | | | [place], | [phone] | | | | | | [place] [address] | Fax: | | | | | | Phone: | [phone] | | | | | | [phone] | | | | | | | Fax: | | | | | | | [phone] | | +--------+--------+ + + + + Encounter Details +--------+---------+ + + + | Date | Type | Department | Care Team | Description | +--------+---------+ + + + | 10/05/ | Office | Digestive Health | Ailyn Wolff MD | CA of rectum (HCC) | | 2017 | Visit | [place] at [facility] [address] | [address] | (Primary Dx) | | | | [address] | [address] [place], | | | | | Mailcode: [place] | [place] [address] | | | | | for Health and | [phone] | | | | | [facility] 2 | | | | | | [place], [place] | | | | | | [address] | | | | | | [phone] | | | +--------+---------+ + + + [...] IV contrast from today. Present at the [facility] Multidisciplinary GI Oncology Conference on 10/07/16. Further recommendations to follow. Likely neoadjuvant chemoradiation. Plans to start chemotherapy on 10/18/16. Radiation will start a week later. Cc: rad onc in [place]. [facility]'sElectronically signed by Ailyn Wolff MD [...] rectal bleeding on 07/19/16 went to the [facility] ED CT abdomen/pelvis with IV contrast (07/20/16) [...] (10/05/16) no liver metastases rigid proctoscopy by in (10/05/16) 6 cm from anal verge presented at the [facility] Multidisciplinary GI Oncology Conference on 10/07/16 diagnosis: [...] more tissue. I spoke to Dr. Mike Isals on 10/07/16. He was willing to start with FOLFOX and to hold off on chemoradiation until closer to surgery I spoke with the patient on 10/07/16. Questions answered. She wishes to proceed with the above plan. acceptable nutrition albumin (09/13/16) 3.5 quit smoking on 07/19/16 Plan: Await final read of pelvic MRI and CT abdomen/pelvis with IV contrast from today. Present at the [facility] Multidisciplinary GI Oncology Conference on 10/07/16. Further [...] bleeding on 07/19/16. She went to the [facility]'s ED. 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 47 minute document review cc: Dr. Alfaro, Radiation Oncology at [place] in [place]. documented in this encounter Plan of Treatment +--------+---------+ + + + | Date | Type | Specialty | Care Team | Description | +--------+---------+ + + + | 06/18/ | Office | Surgery | Ailyn Wolff MD | | | 2019 | Visit | | [address] | | | | | | [place], | | | | | | [place] [address] | | | | | | [phone] | | | | | | | | +--------+---------+ + + + documented as of this encounter Procedures + +--------+ + + + | Procedure Name | Priori | Date/Time | Associated Diagnosis | Comments | | | ty | | | | + +--------+ + + + | [place] | Routin | 10/28/2016 | CA of [...]
--- OUTSIDE RECORDS SUMMARY | ~2019-05-24 | XMS | Encounter Summary ---
Demographics + + + | Address | [address] | | | [place] [address] | + + + | Home Phone [...] Team Providers + +------+ + | Care Maintenance Mechanic Millwright Name | Role | Phone | + +------+ + | rKistian Anderson DO | PCP | | + [...] | | 2018 | | Center at [facility] [address] | [address] | Review | | | | [address] | [address] [place], | | | | | Mailcode: [place] | [place] [address] | | | | | for Health and | [phone] | | | | | [facility] 2 | | | | | | [place], [place] | | | | | | [address] | | | | | | [phone] | | | +--------+ + + + [...] | | | | | [place] [address], | | | | | | [place] [address] | | | | | | [phone] | | | | | | | | +--------+---------+ + + + documented as of this encounter Visit Diagnoses Not on filedocumented in this encounter"
--- OUTSIDE RECORDS SUMMARY | ~2019-05-24 | XMS | Encounter Summary ---
Demographics + + + | Address | [address] | | | [place] [address] | + + + | Home Phone [...] Providers + +------+ + | Care Senior Software Development Engineer Name | Role | Phone | + +------+ + | Kristian Anderson DO | PCP | | + +------+ + Encounter Details +--------+ + + + + | Date | Type | Department | Care Team | Description | +--------+ + + + + | 01/03/ | Document-Sc | Health Information | Unknown . | | | 2017 | anned | Services [address] | | | | | | [address] | | | | | | Mailcode: OP17A | | | | | | [facility] | | | | | | [place], [place] | | | | | | [address] | | | | | | [phone] | | | +--------+ + + + [...] | | | | | [address], | | | | | | [place] [address] | | | | | | [phone] | | | | | | | [...]
--- OUTSIDE RECORDS SUMMARY | ~2019-05-24 | XMS | Encounter Summary ---
Demographics + + + | Address | [address] | | | [place] [address] | + + + | Home Phone [...] Team Providers + +------+ + | Care Repeater Chief Name | Role | Phone | [...] Radiology Order | | 2018 | | [place] [address] [address] | [address] | | | | | [address] [place], | | | | | Mailcode: [place] | [place] [address] | | | | | for Health and | [phone] | | | | | [facility] 2 | | | | | | [place], [place] | | | | | | [address] | | | | | | [phone] | | | +--------+ + + + [...] | | | | | [address] [place], | | | | | | [place] [address] | | | | | | [phone] | | | | | | | | +--------+---------+ + + + documented as of this encounter Visit Diagnoses Not on filedocumented in this encounter"
--- OUTSIDE RECORDS SUMMARY | ~2019-05-24 | XMS | Encounter Summary ---
Demographics + + + | Address | [address] | | | [place] [address] | + + + | Home Phone [...] Team Providers + +------+ + | Care Ski Technician Name | Role | Phone | [...] | 2018 | Encounter | Center at [facility] [address] | [address] | | | | | [address] | Amita Hines [place], | | | | | Mailcode: [place] | [place] [address] | | | | | for Health and | [phone] | | | | | [facility] 2 | | | | | | [place], [place] | | | | | | [address] | | | | | | [phone] | | | +--------+ + + + [...] | | | | | [address], | | | | | | [place] [address] | | | | | | [phone] | | | | | | | | +--------+---------+ + + + documented as of this encounter Visit Diagnoses Not on filedocumented in this encounter"
--- OUTSIDE RECORDS SUMMARY | ~2019-05-24 | XMS | Encounter Summary ---
Demographics + + + | Address | [address] | | | [place] [address] | + + + | Home Phone [...] Team Providers + +------+ + | Care First Coat Sander Name | Role | Phone | + [...] 2017 | | Center at [facility] [address] | [address] | Review | | | | [address] | [address]mita Hines [place], | | | | | Mailcode: [place] | [place] [address] | | | | | for Health and | [phone] | | | | | [facility] 2 | | | | | | [place], [place] | | | | | | [address] | | | | | | [phone] | | | +--------+ + + + [...] | | | | | [address] [place], | | | | | | [place] [address] | | | | | | [phone] | | | | | | | | +--------+---------+ + + + documented as of this encounter Visit Diagnoses Not on filedocumented in this encounter"
--- OUTSIDE RECORDS SUMMARY | ~2019-05-24 | XMS | Encounter Summary ---
Demographics + + + | Address | [address] | | | [place] [address] | + + + | Home Phone [...] Team Providers + +------+ + | Care Ophthalmic Technician Apprentice Name | Role | Phone | + [...] | | | | MR RECTAL | [place], [place] | Mailcode: | | | | | [place] | [address] | [address] | | | | | MRI, PELVIS, | Phone: | [facility] | | | | | COMBO | [phone] | Research | | | | | | Fax: | Center | | | | | | [phone] | [place], [place] | | | | | | | [address] | | | | | | | Phone: | | | | | | | [phone] | | | | | | | Fax: | | | | | | | [phone] | +--------+--------+ + + + + Reason [...] | | | | MR RECTAL | [facility] [place] | Mailcode: | | | | | [place] | [address] | [address] | | | | | MRI, PELVIS, | Phone: | [place] | | | | | COMBO | [phone] | Research | | | | | | Fax: | Center | | | | | | [phone] | [place], [place] | | | | | | | [address] | | | | | | | Phone: | | | | | | | [phone] | | | | | | | Fax: | | | | | | | [phone] | +--------+--------+ + + + + Encounter Details +--------+ + + + + | Date | Type | Department | Care Team | Description | +--------+ + + + + | 10/05/ | Hospital | [facility] | Ailyn Wolff MD | | | 2017 | Encounter | [place] at | [address] | | | | | [place] [address] [address] | [address]mit[place] [address] [place], | | | | | [address] | [place] [address] | | | | | [place], [place] | [phone] | | | | | [address] | | | | | | [phone] | | | +--------+ + + + [...] | 64 kg (141 lb) | 10/05/2016 9:20 AM | | | | | PDT | | + + + + + | Height | 160 cm (5' 3") | 10/05/2016 9:20 AM | | | | | PDT | | + + + + + | Body Mass Index | 24.98 | 10/05/2016 9:20 AM | | | | | PDT | | + + + + + documented in this encounter Plan of Treatment +--------+---------+ + + + | Date | Type | Specialty | Care Team | Description | +--------+---------+ + + + | 06/18/ | Office | Surgery | Ailyn Wolff MD | | | 2019 | Visit | | [address] | | | | | | [place] H[place], | | | | | | [place] [address] | | | | | | [phone] | | | | | | | | +--------+---------+ + + + documented as of this encounter Procedures + +--------+ + + + | Procedure Name | Priori | Date/Time | Associated Diagnosis | Comments | | | ty | | | | + +--------+ + + + | MR RECTAL W/WO | Urgent | 10/05/2016 | Rectal cancer | Results for this | | | | 10:16 AM | (HCC) | procedure are in the | | | | PDT | | results section. | + +--------+ + + + | CARMEN STAPLETON | Routin | 10/05/2016 | Rectal cancer | Results for this | | | e | 9:55 AM | (HCC) | procedure are in the | | | | PDT | | results section. | + +--------+ + + + documented in this encounter Results MR RECTAL W/WO (10/05/2016 10:16 AM PDT) + + | [...] | | | + +---------+ + + CARMEN STAPLETON (10/05/2016 9:55 AM PDT) + +---------+ + + + | Component | Value | Ref Range | Performed | Pathologist | | | | | At | Signature | + +---------+ + + + | CREATININE, | 0.4 (L) | 0.6 - 1.1 mg/dL | [facility] - | | | POC | | | DIAGNOSTIC | | | | | | IMAGING, | | | | | | POINT OF | | | | | | CARE TESTS | | + +---------+ + + + + + | Specimen | + + | Blood - Blood | | (substance) | + + + + + + + | Performing | Address | City/State/Zipcode | Phone Number | | Organization | | | | + + + + + | [facility] - [facility] | [address] | [place] [address] | [phone] | | IMAGING, POINT OF | | | | | CARE TESTS | | | | + + + + + documented in this encounter Visit Diagnoses + + | Diagnosis | + + | Rectal cancer (HCC) Malignant neoplasm of rectum | + + documented in this encounter Administered Medications + +--------+ +-------+------+--------+ | Medication Order | MAR | Action | Dose | Rate | Site | | | Action | Date | | | | + +--------+ +-------+------+--------+ | gadoterate meglumine (DOTAREM) | Given | 10/06/19 | 13 mL | | Right | | 0.5 mmol/mL injection 13 mL 13 | | 17 10:15 | | | Arm | | mL (rounded from 12.8 mL = 0.2 | | AM PDT | | | | | mL/kg | | | | | | | 64 kg), intravenous, ONCE, 1 | | | | | | | dose, 10/05/16 at 1015 | | | | | | + +--------+ +-------+------+--------+ +---+---+ | | | +---+---+ documented in this encounter
--- OUTSIDE RECORDS SUMMARY | ~2019-05-24 | XMS | Encounter Summary ---
Demographics + + + | Address | [address] | | | [place] [address] | + + + | Home Phone [...] Team Providers + +------+ + | Care Tank Car Cleaner Name | Role | Phone | [...] findings, | | 2017 | | at [facility] [address] | [address] | teaching, guidance, | | | | [address] Mailcode: | [address] [place], | and counseling | | | | [address] | [place] [address] | | | | | Health and Healing, | [phone] | | | | | [facility] | | | | | | Floor [place], [place] | | | | | | [address] | | | | | | [phone] | | | +--------+ + + + [...] | | | | | Amita Hines [place], | | | | | | [place] [address] | | | | | | [phone] | | | | | | | | +--------+---------+ + + + documented as of this encounter Visit Diagnoses Not on filedocumented in this encounter"
--- OUTSIDE RECORDS SUMMARY | ~2019-05-24 | XMS | Encounter Summary ---
Demographics + + + | Address | [address] | | | [place] [address] | + + + | Home Phone | | + + + | Preferred Language | Unknown | + + + | Marital Status | | + + + | Nondenominational Affiliation | Unknown | + + + | Race | Unknown | + + + | Ethnic Group | Unknown | + + + Author + + + | Author | [facility] | | | and [place] | + + + | Organization | [facility] | | | and [place] | + + + | Address | Unknown | + + + | Phone | Unavailable | + + + Support + + + + + | Name | Relationship | Address | Phone | + + + + + | Lamar Phillips | ECON | [place] [address] | | + + + + + Care Team Providers + +------+ + | Care Health Information Specialist Name | Role | Phone | [...] WALL | | | | | [address] | [place] [address] | | | | | [place] [address] | [phone] | | | | | [phone] | | | +--------+ + + + [...]
--- OUTSIDE RECORDS SUMMARY | ~2019-05-24 | XMS | Encounter Summary ---
Demographics + + + | Address | [address] | | | [place] [address] | + + + | Home Phone [...] Team Providers + +------+ + | Care Vendor Management Associate Name | Role | Phone | [...] | | 2018 | | Center at [facility] [address] | [address] | Review | | | | [address] | Amita Hines [place], | | | | | Mailcode: [place] | [place] [address] | | | | | for Health and | [phone] | | | | | [facility] 2 | | | | | | [place], [place] | | | | | | [address] | | | | | | [phone] | | | +--------+ + + + [...] | | | | | [place], | | | | | | [place] [address] | | | | | | [phone] | | | | | | | | +--------+---------+ + + + documented as of this encounter Visit Diagnoses Not on filedocumented in this encounter"
--- OUTSIDE RECORDS SUMMARY | ~2019-05-24 | XMS | Encounter Summary ---
Demographics + + + | Address | [address] | | | [place] [address] | + + + | Home Phone [...] Team Providers + +------+ + | Care Digging Machine Operator Name | Role | Phone [...] 2018 | | Center at [facility] [address] | [address] | Review | | | | [address] | Amita Hines [place], | | | | | Mailcode: [place] | [place] [address] | | | | | for Health and | [phone] | | | | | [facility] 2 | | | | | | [place], [place] | | | | | | [address] | | | | | | [phone] | | | +--------+ + + + [...] | | | | | [place]mita H[place], | | | | | | [place] [address] | | | | | | [phone] | | | | | | | | +--------+---------+ + + + documented as of this encounter Visit Diagnoses Not on filedocumented in this encounter"
--- OUTSIDE RECORDS SUMMARY | ~2019-05-24 | XMS | Encounter Summary ---
Demographics + + + | Address | [address] | | | [place] [address] | + + + | Home Phone [...] Providers + +------+ + | Care Drug Safety Scientist Name | Role | Phone | [...] | | 2018 | | Center at [facility] [address] | [address] | Review | | | | [address] | Amita Hines [place], | | | | | Mailcode: [place] | [place] [address] | | | | | for Health and | [phone] | | | | | [facility] 2 | | | | | | [place], [place] | | | | | | [address] | | | | | | [phone] | | | +--------+ + + + [...] | | | | | [address]mita [address], | | | | | | [place] [address] | | | | | | [phone] | | | | | | | | +--------+---------+ + + + documented as of this encounter Visit Diagnoses Not on filedocumented in this encounter"
--- OUTSIDE RECORDS SUMMARY | ~2019-05-24 | XMS | Encounter Summary ---
Demographics + + + | Address | [address] | | | [place] [address] | + + + | Home Phone [...] Team Providers + +------+ + | Care [employer] Caretaker Name | Role | Phone | + [...] | | | | Pre-operativ | [address] | | | | | | e | [address] | | | | | | cardiovascul | [place], | | | | | | ar | [place] | | | | | | examination | [address] | | | | | | Tobacco | Phone: | | | | | | abuse | [phone] | | | | | | Dyspnea, | Fax: | | | | | | unspecified | [phone] | | | | | | type [...] | | | | | | at [facility] [address] | | | | | | [address] Mailcode: | | | | | | [address] | | | | | | Health and Healing, | | | | | | Building [address] | | | | | | [place], [place] | | | | | | [address] | | | | | | [phone] | | | +--------+ + + + [...] + documented as of this encounter Progress Brandon Rae - 10/06/2016 10:03 AM PDTTransthoracic echocardiogram completed. Final report to follow. documented in this encounter Plan of Treatment +--------+---------+ + + + | Date | Type | Specialty | Care Team | Description | +--------+---------+ + + + | 06/18/ | Office | Surgery | Ailyn Wolff MD | | | 2019 | Visit | | [address] | | | | | | [place], | | | | | | [place] [address] | | | | | | [phone] | | | | | | | [...] + + documented in this encounter Results TRANSTHORACIC ECHOCARDIOGRAM WITH STRAIN - CARDIO MECHANICS, [...] formed At | + +---- + | [facility] | [facility] DEPT OF | | [facility] Adult Echocardiography Laboratory [address] [facility] | | [place], [place] [address] Ph: | | | Pt Name: JENN BYRNES | | | Study Date/Time 10/06/2016 / 8:59:07 AMMRN: [id number] | | | Most recent prior: -Acc #: [id number] | | | No. previous echos: 0DOB: 1960 55 years Heart Rate: | | | 78 bpmHeight: 63.0 in Blood | | | Pressure: 131/69 mm/HgWeight: 142.0 lb | | | Gender: FBSA: 1.67 m2 | | | Order ID: [id number] Call Center Analyst: Brandon Hwang MA, | | | [facility] Referring Provider: Brittany Rojas Location: | | [...] Report electronically signed by: | | | [id number] Cole Chávez MD (10/06/2016, 10:21:24 AM)REPORT | | | DARG=[id number] HOSP=PO REGION=A0 Final | | | cm [...] | | | |Report electronically signed by: [id number] Cole Chávez MD (10/06/2016, 10:21:24 | | |AM) | | |REPORT [id number]=[id number] HOSP=PO REGION=A0 | | | | | | | | | | | | Final | | + +---- + + + | Procedure Note | + + | Interface, Cardiology Results - 10/06/2016 10:[address] [facility] | | [facility] Echocardiography Laboratory [address] [place] [address] | | [place], [place] [address] Pt Name: JENN | | BRITTANY BYRNES Study Date/Time 10/06/2016 / 8:59:07 AMMRN: [id number] | | Most recent prior: -Acc #: [id number] No. previous echos: 0DOB: | | 1960 55 years Heart Rate: 78 bpmHeight: 63.0 in Blood | | Pressure: 131/69 mm/HgWeight: 142.0 lb Gender: FBSA: | | 1.67 m2 Order ID: [id number] Call Center Analyst: Brandon Hwang MA, | | RDCSReferring Provider: Brittany Rojas Location: [facility] [place] [facility] Performed: | | 2D, Color [...] | indexed values Report electronically signed by: [id number] Cole Chávez MD | | (10/06/2016, 10:21:24 AM)REPORT [id number] HOSP=PO REGION=A0 Final | |ventricular ejection fraction is [...] | | | |Report electronically signed by: [id number] Cole Chávez MD (10/06/2016, 10:21:24 | |AM) | |REPORT [id number] HOSP=PO REGION=A0 | | | | | | | | Final | + + + + + + + | Performing | Address | City/State/[facility] | Phone Number | | Organization | | | | + + + + + | [facility] | [address] | [place], [place] | | | CARDIOLOGY | [address] | [address] | | + + + + + documented in this encounter Visit Diagnoses + + | Diagnosis | + + | Pre-operative cardiovascular examination | + + | Tobacco abuse Tobacco use disorder | + + | Dyspnea, unspecified type | + + | Aortic systolic murmur on examination | + + documented in this encounter"
--- OUTSIDE RECORDS SUMMARY | ~2019-05-24 | XMS | Encounter Summary ---
Demographics + + + | Address | [address] | | | [place] [address] | + + + | Home Phone [...] Team Providers + +------+ + | Care Transmission Worker Name | Role | Phone | [...] Notes | | 2016 | | at [facility] [address] | | (Lodging) | | | | [address] [place] | | | | | | [place] | | | | | | [place], [place] | | | | | | [address] | | | | | | [phone] | | | +--------+ + + + [...] | | | | | [address]mita H[place], | | | | | | [place] [address] | | | | | | [phone] | | | | | | | | +--------+---------+ + + + documented as of this encounter Visit Diagnoses Not on filedocumented in this encounter"
--- OUTSIDE RECORDS SUMMARY | ~2019-05-24 | XMS | Encounter Summary ---
Demographics + + + | Address | [address] | | | [place] [address] | + + + | Home Phone | | + + + | Preferred Language | Unknown | + + + | Marital Status | | + + + | Sikhism Affiliation | Unknown | + + + | Race | Unknown | + + + | Ethnic Group | Unknown | + + + Author + + + | Author | [facility] | | | and [place] | + + + | Organization | [facility] | | | and [place] | + + + | Address | Unknown | + + + | Phone | Unavailable | + + + Support + + + + + | Name | Relationship | Address | Phone | + + + + + | Lamar Phillips | ECON | [place] [address] | | + + + + + Care Team Providers + +------+ + | Care Fireworks Maker Name | Role | Phone | [...] + | 04/12/ | Telephone | [facility] | Mychal Andre, | Medication Orders | | 2018 | | [facility] [place] | [address] | | | | | [address] [facility], | [place] [address] | | | | | [address] [place] | [place] | | | | | [place] [address] | [address] | | | | | [phone] | | | +--------+ + + + [...]
--- OUTSIDE RECORDS SUMMARY | ~2019-05-24 | XMS | Encounter Summary ---
Demographics + + + | Address | [address] | | | [place] [address] | + + + | Home Phone [...] Team Providers + +------+ + | Care Filbert Grower Name | Role | Phone | [...] 2017 | Encounter | Center at [facility] [address] | [address] | | | | | [address] | Amita Hines [place], | | | | | Mailcode: [place] | [place] [address] | | | | | for Health and | [phone] | | | | | [facility] [address] | | | | | | [place], [place] | | | | | | [address] | | | | | | [phone] | | | +--------+ + + + [...] | | | | | | [place] [address] | | | | | | [phone] | | | | | | | | +--------+---------+ + + + documented as of this encounter Visit Diagnoses Not on filedocumented in this encounter"
--- OUTSIDE RECORDS SUMMARY | ~2019-05-24 | XMS | Encounter Summary ---
Demographics + + + | Address | [address] | | | [place] [address] | + + + | Home Phone [...] Providers + +------+ + | Care Digital Marketing Consultant Name | Role | Phone | [...] | | | | CT ABDOMEN | [place], [place] | Mailcode: | | | | | [place] | [address] | [address] [facility] | | | | | W IV | Phone: | Hospital | | | | | CONTRAST [place] | [phone] | [place], [place] | | | | | CT | Fax: | [address] | | | | | ABDOMEN&PELV | [phone] | Phone: | | | | | IS | | [phone] | | | | | W/CONTRAST | | Fax: | | | | | | | [phone] | +--------+--------+ + + + + Reason [...] | | | | CT ABDOMEN | [place], [place] | Mailcode: | | | | | [place] | [address] | [address] [facility] | | | | | W IV | Phone: | Hospital | | | | | CONTRAST [place] | [phone] | [facility] [place] | | | | | CT | Fax: | [address] | | | | | ABDOMEN&PELV | [phone] | Phone: | | | | | IS | | [phone] | | | | | W/CONTRAST | | Fax: | | | | | | | [phone] | +--------+--------+ + + + + Encounter Details +--------+ + + + + | Date | Type | Department | Care Team | Description | +--------+ + + + + | 10/05/ | Hospital | Radiology/Imaging | Ailyn Wolff MD | | | 2017 | Encounter | Lab at [facility] [address] | [address] | | | | | [place] Mailcode: | [place], | | | | | [facility] | [place] [address] | | | | | Health and Healing, | [phone] | | | | | [address] | | | | | | [place], [place] | | | | | | [address] | | | | | | [phone] | | | +--------+ + + + [...] | | | | | | [place] [address] | | | | | | [phone] | | | | | | | [...]
--- OUTSIDE RECORDS SUMMARY | ~2019-05-24 | XMS | Encounter Summary ---
Demographics + + + | Address | [address] | | | [place] [address] | + + + | Home Phone [...] Team Providers + +------+ + | Care Baby Stroller Rental Clerk Name | Role | Phone | + +------+ + | Justin Kristian | PCP | | + +------+ + Reason for Visit + + + | Reason | Comments | + + + | Follow-up encounter | | + + + Encounter Details +--------+ + + + + | Date | Type | Department | Care Team | Description | +--------+ + + + + | 08/22/ | Telephone | Digestive Health | Ailyn Wolff MD | Follow-up encounter | | 2018 | | Center at [facility] [address] | [address] | | | | | [address] | [place] [facility] | | | | | Mailcode: [place] | [place] [address] | | | | | for Health and | [phone] | | | | | [facility] [address] | | | | | | [place], [place] | | | | | | [address] | | | | | | [phone] | | | +--------+ + + + [...] | | | | | Amita H[place], | | | | | | [place] [address] | | | | | | [phone] | | | | | | | | +--------+---------+ + + + documented as of this encounter Visit Diagnoses Not on filedocumented in this encounter"
--- OUTSIDE RECORDS SUMMARY | ~2019-05-24 | XMS | Encounter Summary ---
Demographics + + + | Address | [address] | | | [place] [address] | + + + | Home Phone [...] Providers + +------+ + | Care Business Development Recruiter Name | Role | Phone | + +------+ + | Silvioct Kristian | PCP | | + +------+ + Encounter Details +--------+------+ + + + | Date | Type | Department | Care Team | Description | +--------+------+ + + + | 11/27/ | Lab | Laboratory at [facility] | | Rectal cancer (HCC) | | 2019 | | [address] | | | | | | [place], [place] | | | | | | [address] | | | | | | [phone] | | | +--------+------+ + + + [...] | | | | | Suzy H[place], | | | | | | [place] [address] | | | | | | [phone] | | | | | | | [...] | + + + + + | [facility] | [address] | [place] [address] | | | SERVICES, CORE | [address] | | | + + + + + documented in this encounter Visit Diagnoses + + | Diagnosis | + + | Rectal cancer (HCC) Malignant neoplasm of rectum | + + documented in this encounter"
--- OUTSIDE RECORDS SUMMARY | ~2019-05-24 | XMS | Encounter Summary ---
Demographics + + + | Address | [address] | | | [place] [address] | + + + | Home Phone [...] Providers + +------+ + | Care Health Spa Manager Name | Role | Phone | [...] | | | | Epic Dept | [address] | | | | | | [address] | | | | | | | [place]a H[place] | | | | | | | [place], [place] | | | | | | | [address] | | | | | | | Phone: | | | | | | | [phone] | | | | | | | Fax: | | | | | | | [phone] | +--------+--------+ + + + + Encounter Details +--------+---------+ + + + | Date | Type | Department | Care Team | Description | +--------+---------+ + + + | 11/21/ | Office | Digestive Health | Ailyn Wolff MD | CA of rectum (HCC) | | 2018 | Visit | Center at [facility] [address] | [address] | (Primary Dx) | | | | [address] | Amita Hines [place], | | | | | Mailcode: [place] | [place] [address] | | | | | for Health and | [phone] | | | | | Healing, Building [address] | | | | | | [place], [place] | | | | | | [address] | | | | | | [phone] | | | +--------+---------+ + + + [...] on 07/19/16 went to the [facility] ED CT abdomen/pelvis with IV [...] (10/05/16) no liver metastases rigid proctoscopy by tx (10/05/16) 6 cm from anal verge presented at the [facility] Multidisciplinary GI Oncology Conference on [...] to Mendoza pouch staple line presented at [facility] Multidisciplinary GI Oncology Conference on [...] MRI ([facility], 05/17/17) close to pelvic sidewall [facility] Multidisciplinary GI Oncology Conference (06/02/17) [...] resection with primary anastomosis, placement of a 19-Guatem[place] Albert drain through the right lower quadrant [...] resection with primary anastomosis, placement of a 19-Gu[place] Albert drain through the right lower quadrant [...] Return/Re-evaluation patient, I spent 13 minutes of oyhl-oy-fixv time, of which m ore than half the time was spent in counseling. 10 minute document review do cumented in this encounter Plan of Treatment +--------+---------+ + + + | Date | Type | Specialty | Care Team | Description | +--------+---------+ + + + | 06/18/ | Office | Surgery | Ailyn Wolff MD | | | 2018 | Visit | | [address] | | | | | | [place]a [place], | | | | | | [place] [address] | | | | | | [phone] | | | | | | | | +--------+---------+ + + + documented as of this encounter Visit Diagnoses + + | Diagnosis | + + | 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
--- OUTSIDE RECORDS SUMMARY | ~2019-05-24 | XMS | Encounter Summary ---
Demographics + + + | Address | [address] | | | [place] [address] | + + + | Home Phone [...] Team Providers + +------+ + | Care Hot Wound Spring Production Supervisor Name | Role | Phone [...] | | | | [facility] | [place], [place] | | | | | [place] [address] | [address] | | | | | [place], [place] | | | | | | [address] | | | | | | [phone] | | | +--------+ + + + [...] | | | | | [place], | | | | | | [place] [address] | | | | | | [phone] | | | | | | | | +--------+---------+ + + + documented as of this encounter Visit Diagnoses Not on filedocumented in this encounter"
--- OUTSIDE RECORDS SUMMARY | ~2019-05-24 | XMS | Encounter Summary ---
Demographics + + + | Address | [address] | | | [place] [address] | + + + | Home Phone [...] Team Providers + +------+ + | Care Deputy Director Name | Role | Phone | [...] | | | | | Procedures | Suzy Hines | Suzy Hines | | | | | REQUEST TO | [place], [place] | [place], [place] | | | | | SURGERY | [address] | [address] | | | | | PROPERTY INSURANCE CLAIMS EXAMINER | Phone: | Phone: | | | | | ME | [phone] | [phone] | | | | | LAP,SURG,COL | Fax: | Fax: | | | | | ECTOMY,W/TASNEEM | [phone] | [phone] | | | | | ST ME | | | | | | | LAP,SURG,COL | | | | | | | ECTOMY,W/TASNEEM | | | | | | | ST,W/COLOSTO | | | | | | | MY ME | | | | | | | LAP,MBL | | | | | | | SPLNC FL ME | | | | | | | | | | | | | | LAP,SURG,COL | | | | | | | ECTOMY,W/REM | | | | | | | VL TERM | | | | | | | ILEUM ME | | | | | | | LAP,SURG,COL | | | | | | | ECTOMY,W/END | | | | | | | COLOST & | | | | | | | CLOSUR ME | | | | | | | LAP,ILEO/JEJ | | | | | | | YESIKA-STOMY | | | | | | | ME PART | | | | | | | REMOVAL | | | | | | | COLON W | | | | | | | COLOPROCTOST | | | | | | | LORI ME PART | | | | | | | REMOVAL | | | | | | | COLON W | | | | | | | COLOPROC,COL | | | | | | | OST ME | | | | | | | MOBILIZE | | | | | | | SPLENIC FLEX | | | | | | | ME PART | | | | | | | REMOVAL | | | | | | | COLON W END | | | | | | | COLOSTOMY | | | | | | | ME PART | | | | | | | REMOVAL | | | | | | | COLON W | | | | | | | OSTOMY/MUCOF | | | | | | | IST ME | | | | | | | ILEOSTOMY/JE | | | | | | | JUNOSTOMY,NO | | | | | | | NTUBE ME | | | | | | | REMOVE | | | | | | | VAGINA WALL, | | | | | | | PARTIAL ME | | | | | | | REMOVE | | | | | | | VAGINA | | | | | | | TISSUE/PARTI | | | | | | | AL ME | | | | | | | VAGINECTOMY | | | | | | | PARTIAL | | | | | | | W/NODES ME | | | | | | | PROCTECTOMY, | | | | | | | AP | | | | | | | RESECT+OSTOM | | | | | | | Y ME | | | | | | | PROCTECTOMY, | | | | | | | PARTIAL ME | | | | | | | PROCTECTOMY, | | | | | | | AP | | | | | | | RESEC,PULL-T | | | | | | | HRU ME | | | | | | | PROCTECTOMY, | | | | | | | PART,ILEAL | | | | | | | RESERV ME | | | | | | | PROCTECTOMY, | | | | | | | A-P PULLTHRU | | | | | | | W/RESERVOIR | | | | | | | ME | | | | | | | PROCTECTOMY, | | | | | | | COMPLT,PULL- | | | | | | | THRU,ANAST | | | | | | | ME | | | | | | | PROCTECTOMY, | | | | | | | COMPL,COLECT | | | | | | | LORI,BX'S | | | +--------+--------+ + + + + Reason for Visit + + + | Reason | Comments | + + + | History and physical | | | examination | | + + + | Rectal [...] | Surgery | Diagnoses | Kirstie, | Mariella, Ailyn White, | | | | | Malignant | Marty Toledo MD | [address] | | | | | neoplasm of | [place] | [address] | | | | | rectum | SURGICAL | Suzy Hines | | | | | | [facility]IN[facility] | [place], [place] | | | | | | [address] | [address] | | | | | | AVE | Phone: | | | | | | [place], | [phone] | | | | | | [place] [address] | Fax: | | | | | | Phone: | [phone] | | | | | | [phone] | | | | | | | Fax: | | | | | | | [phone] | | +--------+--------+ + + + + Encounter Details +--------+---------+ + + + | Date | Type | Department | Care Team | Description | +--------+---------+ + + + | 06/13/ | Office | Digestive Health | Ailyn Wolff MD | Rectal cancer (HCC) | | 2017 | Visit | Center at [facility] [address] | [address] | (Primary Dx); CA of | | | | [address] | Suzy Hines [place], | rectum (HCC) | | | | Mailcode: [place] | [place] [address] | | | | | [facility] and | [phone] | | | | | [place] [address] | | | | | | [place], [place] | | | | | | [address] | | | | | | [phone] | | | +--------+---------+ + + + [...] + + + | Blood Pressure | 148/80 | 06/13/2017 3:31 PM | | | | | PST | | + + + + + | Pulse | 69 | 06/13/2017 3:31 PM | | | | | PST | | + + + + + | Temperature | 36.8 C (98.3 F) | 06/13/2017 3:31 PM | | | | | PST | | + + + + + | Respiratory Rate | - | - | | + + + + + | Oxygen Saturation | 96% | 06/13/2017 3:31 PM | | | | | PST | | + + + + + | Inhaled Oxygen | - | - | | | Concentration | | | | + + + + + | Weight | 76.7 kg (169 lb) | 06/13/2017 3:31 PM | | | | | PST | | + + + + + | Height | 160 cm (5' 3") | 06/13/2017 3:31 PM | | | | | PST | | + + + + + | Body Mass Index | 29.94 | 06/13/2017 3:31 PM | | | | | PST | | + + + + + documented in this encounter Patient Instructions Patient Instructions Noelle Davidson RN - 06/13/2017 3:40 PM PSTPATIENT SURGERY INFORMATION [facility] General Surgery Office Toll-free: , request [facility] Surgery Date: 06/30/2017 Procedure: Low anterior resection, possible abdominoperineal resection. Surgeon Name: Dr. Ailyn Wolff MD DIRECTIONS FOR SURGERY DIET You should have clear liquids only for the entire day prior to surgery, no solid food. Kailee r liquids include anything you can see through, like water, fernando zack, lemon-shageluk soft drin ks, apple juice, tea, Gatorade/sports [...] have questions please contact the clinic at [phone], if it is after clinic h ours please call the icicle machine operator at [phone] and ask to speak to the Green Surgery Resident television writer. CAUTION! Please call the clinic if you [...] number may refer you to the hospital icicle machine operator ([phone]); please ask to speak to the general surgery resident television writer for Dr Javed. MEDICATIONS You may take [...] e. Smoking is not allowed on the [facility] campus. If you are a smoker, please [...] anyone by 3:00 PM please call for [id number]. PARKING Parking for patients and visitors is available in the [facility] Parking structure located across from the emergency department. Patient parking is available on level 1 and 3. Metere d parking is available on the top level. CHECKING IN FOR SURGERY Go in the main entrance and check in at the Admitting Desk 9th floor of [facility] TRANSPORTATION You will require transportation home on the day of discharge. Pain medications and physical activity restrictions may limit your ability to drive safely. CANCELLING YOUR PROCEDURE Please notify the general surgery office at [phone] as soon as possible should you nee [...] prior to your surgery. PRODUCTS CONTAINING ASPIRIN Katelyn-Versailles, Anacin, Anexsia with Codeine, Andynos, Aspirin, Aspirin suppositories, Ascrip tin, Aspergum, Axotal, B-A-C, Baby Aspirin, Tony, BC Powder, Bexophene, Buffaprin, Bufferin , Buffinol, Cama-Arthritis Strength, Congespirin, [place], Coricidin, Damason, Darvon, Dristan, Annetta-Gesic, Digel, Dolprin #3 Tablets, Donatab, Doxaphene, Duragesic, Easprin, Ecotrin, Emag rin Forte, Emiprin, Emprazil, Equagesic, Equazine M, Excedrin, Fiogesic, Fiorgen PH, Fiorice t, Fiorinal, 4-Way Cold Tablet Gemnisyn, Indocin, Liquprin, Lortab ASA, Magnaprin, Marnal, Meprobamate, Midol, Momentum, N orgesic, Hull, Orphengesic, Pabalate, P-A-C, Percodan, Presalin, Robaxasil, Roxiprin, Brian eto, Salocol SK-65 Compound, Sine-Aid, Sine-Off,, Oden, Supac, Talwin Compound, Trigesic, Tolectin , Traiminicin, Vanquish, ZORprin, Zomax PRODUCTS CONTAINING IBUPROFEN Advil, Aleve, Haltran, Medipren, Midol, Motrin, Naproxyn, Nuprin, Rufen OTHER PRODUCTS WHICH MAY PROMOTE BLEEDING Vitamin E, Gingko Biloba, Marine Fatty Acids, Ridgeway-3 Fish Oil Supplements Registration Process for all [...] encounter Progress Notes Emily Gresham MA - 06/13/2017 3:40 PM PSTExamination chaperoned by Emily Levi CMA. u, Ailyn White MD - 06/13/2017 3:40 PM PST COLON AND RECTAL SURGERY Attending Clinic Note Established Patient Assessment: 56 y.o. female with htn, elevated lipids, heartburn, nephrolithiasis, and liche n sclerosus endoscopically obstructing mriT4 N0 M0 rectal mass (6 cm from verge) invading vagina rectal urgency and a lot of rectal bleeding on 07/19/16 went to the [facility] ED CT abdomen/pelvis with IV contrast (07/20/16) [...] cm from anal verge presented at the [facility] Multidisciplinary GI Oncology Conference on 10/07/16 diagnosis: [...] to Mendoza pouch staple line presented at [facility] Multidisciplinary GI Oncology Conference on 03/10/17. Given [...] MRI (OSH, 05/17/17) close to pelvic sidewall [facility] Multidisciplinary GI Oncology Conference (06/02/17) Recommendations with a high level of consensus. Low anterior resection, posterior vaginectomy, intraop radiation (Intrabeam). CT chest/abdomen/pelvis with IV contrast (06/13/17) no lung or liver metastases smaller mesorectal mass resolved left pelvic abscess acceptable nutrition albumin (09/13/16) 3.5 quit smoking on 07/19/16 QI DOCUMENTATION: Lab Results Component Value Date CR 0.55 (L) 06/13/2017 NA 141 06/13/2017 PLT 345 06/13/2017 AP 117 (H) 06/13/2017 ALB 2.9 (L) 06/13/2017 HCT 34.5 (L) 06/13/2017 BUN 13 06/13/2017 AST 31 06/13/2017 Today's Vitals: Visit Vitals Item Reading BP 148/80 Pulse 69 Temp 36.8 C (98.3 F) Ht 1.6 m (5' 3") Wt 76.7 kg (169 lb) SpO2 96% BMI 29.94 kg/(m^2) Plan: Low anterior resection, posterior vaginectomy, intraop radiation (Intrabeam) on 06/30/17. Urology available to place bilateral temporary ureteral stents. NPO after midnight prior to surgery. Oral antibiotic/mechanical bowel prep on 06/29/17. Labs and Preop Medicine Clinic visit today. See radiation medicine on 06/14/17. After a PARQ conference in which the risks including but not limited to bleeding, infection , pneumonia, UTI, recurrence, DVT, PE, MA, stroke, and were discussed, she wished to proceed with the above plan. Chief Complaint: 55 y.o. female with intermittent rectal bleeding since ~2013 and tailbone pain since 07/19/17. History of Present Illness: On 10/05/16, she told me: "intermittent rectal bleeding since ~2013 She had rectal urgency and a lot of rectal bleeding on 07/19/16. She went to the [facility] ED. CT abdomen/pelvis with IV contrast (07/20/16) [...] rectal cancer. [facility] and the CT of the chest/abdomen/pelvis [...] cm from anal verge presented at the [facility] Multidisciplinary GI Oncology Conference on 10/07/16 diagnosis: [...] cGy with 540 boost, 25 fractions, 01/10/17-02/17/17. Dr. Alfaro, Radiation Oncology at [facility] in [place]. MRI pelvis (03/02/17) tumor response but circumferential margin still threatened CT chest/abdomen/pelvis with IV contrast (03/02/17) no metastatic disease small left fluid collection next to Mendoza pouch staple line On 03/02/17, she told me: "Tingling in fingers is gone. Eating more healthy. Nausea. Gaining weight. Not smoking . Empties her colostomy bag 3 times a day. Changes her appliance once a week. Taking fl agyl for the LLQ tenderness/malodorous drainage." presented at [facility] Multidisciplinary GI Oncology Conference on 03/10/17. Given [...] MRI (OSH, 05/17/17) close to pelvic sidewall I again discussed her at the [facility] Multidisciplinary GI Oncology Conference (06/02/17) Recommendations with a high level of consensus. Low anterior resection, posterior vaginectomy, intraop radiation (Intrabeam). She is scheduled for repeat CT chest/abdomen/pelvis and preop visit with me on 06/13/17. I called her. She is willing to proceed with the above plan. repeat CT chest/abdomen/pelvis with IV contrast today on 06/13/17 decrease in size of ectal mass, left pelvic abscess resolved In April,, she had a kidney infection. She completed her course of antibiotics. Tolerating her diet. She empties her colostomy 5-6 times a day. She changes her appliance lasts between 1-7 days. Stool in her drain. 2-3 pills of Buford for her 3-810 cramping nonradiating lower abdominal/back pain. She comes for a preop visit. Note: She quit smoking on 07/19/16. No anal surgeries Past Medical History: Diagnosis Date Elevated lipids Heartburn HTN (hypertension) Lichen sclerosus Nephrolithiasis OB History Para Term AB Living 2 1 1 SAB TAB Ectopic Multiple Live Births 1 Obstetric Comments D&C x2 1 vaginal [...] port-a-cath 09/22/2016 Carpal tunnel release in mid 's Extracorporeal shock wave lithotripsy Excision of 2 facial cyst Repeat anal biopsy 10/27/2016 Allergies: Allergies Allergen Reactions Iron Sucrose Nausea Current Outpatient Prescriptions Medication Sig ASCORBIC ACID [...] breast Hypertension Mother Heart Attack Father from [place] at age 52 Diabetes Father Heart Attack Brother Coronary Artery Disease Brother NATHAN x 4 Social History Social History Marital status: Single Spouse name: Number of children: 1 Years of education: 12 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 No fevers, chills, cough, shortness of breath, chest pain, or chest pressure. See my HPI. Wears glasses. All other systems reviewed and are negative. Physical exam: BP 148/80 | Pulse 69 | Temp 36.8 C (98.3 F) | Ht 1.6 m (5' 3") | Wt 76. 7 kg (169 lb) | SpO2 96% | BMI 29.94 kg/(m^2) General: well-developed, well-nourished female in NAD Mental Status: A&O x 4 Neurologic: moves all extremities well HEENT: anicteric sclera, EOMI, no facial sinus tenderness, oropharynx benign Neck: supple, no LAD, no thyromegaly Lungs: clear to auscultation bilaterally Heart: regular rate and rhythm Abd: soft, midline incision, left-sided ostomy, far LLQ drain with stool, nontender, nondis tended Back: mild lower lumbar but no other spinal or costovertebral tenderness Groins: no inguinal lymphadenopathy Vascular: 2+ femoral pulses Extremities: no calf tenderness, no clubbing/cyanosis/edema Perineum: no external hemorrhoids or fissures; flat, white changes anteriorly Vaginal: lesion invading left posterior wall near fornix Rectal: normal tone, mass, closest on the right, about several cm above puborectalis From 10/05/16 "Rigid proctoscopy: lesion at 6 cm from anal verge" With this established patient, I spent 22 minutes of lnbi-ft-pxpx time, of which more than half the time was spent in counseling. 20 minute document review Noelle Clifford RN - 017 3:40 PM PSTNPO after midnight, Miralax/Gatorade bowel prep with antibiotics, prevention of constipation and pain control after surgery, responsible ride home [facility]. Discussed pre-operative plan such as kilnman calling the day before surgery to gi [...] starting with clears, need for PMC appt (FITNESS TEACHER), post-op appt (3 wk). Pt den ies further questions. I encouraged the pt to call with any questions, concerns, or new symp toms at [phone]. documented in this enco unter Plan of Treatment +--------+---------+ + + + | Date | Type | Specialty | Care Team | Description | +--------+---------+ + + + | 06/18/ | Office | Surgery | Ailyn Wolff MD | | | 2018 | Visit | | [address] | | | | | | [place], | | | | | | [place] [address] | | | | | | [phone] | | | | | | | | +--------+---------+ + + + documented as of this encounter Results INR (06/13/2017 4:44 PM PST) + +-------+ [...] | + + + + + | [facility] | [address] | [place] [address] | | | SERVICES, CORE | PARK [...] | | | LABORATORY | | | ANGOLAN | | | SERVICES, | | | [...] + + + + + | [facility] | [address] | [place] [address] | | | SERVICES, CORE | [address] | | | + + + + + documented in this encounter Visit Diagnoses + + | Diagnosis | + + | Rectal cancer (HCC) - Primary Malignant neoplasm of rectum | + + | CA of rectum (HCC) Malignant neoplasm of rectum | + + documented in this encounter
--- OUTSIDE RECORDS SUMMARY | ~2019-05-24 | XMS | Encounter Summary ---
Demographics + + + | Address | [address] | | | [place] [address] | + + + | Home Phone [...] Team Providers + +------+ + | Care Pilot Supervisor Name | Role | Phone | [...] | | | | [address] | [address], | | | | | Mailcode: [place] | [place] [address] | | | | | for Health and | [phone] | | | | | [facility] [address] | | | | | | [place], [place] | | | | | | [address] | | | | | | [phone] | | | +--------+ + + + [...] | | | | | [place]mit[address] [place], | | | | | | [place] [address] | | | | | | [phone] | | | | | | | | +--------+---------+ + + + documented as of this encounter Visit Diagnoses Not on filedocumented in this encounter"
--- OUTSIDE RECORDS SUMMARY | ~2019-05-24 | XMS | Encounter Summary ---
Demographics + + + | Address | [address] | | | [place] [address] | + + + | Home Phone [...] Providers + +------+ + | Care Sales Analyst Name | Role | Phone | [...] | Malignant | Marty Toledo MD | [address] | | | | | neoplasm of | [place] | [address] | | | | | rectum | SURGICAL | [place] | | | | | | CLINIC [address] | [place], [place] | | | | | | [address] | [address] | | | | | | AVE | Phone: | | | | | | [place], | [phone] | | | | | | [place] [address] | Fax: | | | | | | Phone: | [phone] | | | | | | [phone] | | | | | | | Fax: | | | | | | | [phone] | | +--------+--------+ + + + + Encounter Details +--------+---------+ + + + | Date | Type | Department | Care Team | Description | +--------+---------+ + + + | 10/05/ | Office | Digestive Health | Ailyn Wolff MD | CA of rectum (HCC) | | 2017 | Visit | [place] at [facility] [address] | [address] | (Primary Dx) | | | | [address] | [address] [place], | | | | | Mailcode: [place] | [place] [address] | | | | | for Health and | [phone] | | | | | [facility] [address] | | | | | | [place], [place] | | | | | | [address] | | | | | | [phone] | | | +--------+---------+ + + + [...] IV contrast from today. Present at the [facility] Multidisciplinary GI Oncology Conference on 10/07/16. Further recommendations to follow. Likely neoadjuvant chemoradiation. Plans to start chemotherapy on 10/18/16. Radiation will start a week later. Cc: [place] onc [facility] [place]. [facility]'sElectronically signed by Ailyn Wolff MD at 017 2:25 PM PDT documented in this encounter Progress Notes Emily Gresahm MA - 10/05/2016 1:00 PM PDTExamination chaperoned [...] rectal bleeding on 07/19/16 went to the [facility] ED CT abdomen/pelvis with IV [...] (10/05/16) no liver metastases rigid proctoscopy by or (10/05/16) 6 cm from anal verge presented at the [facility] Multidisciplinary GI Oncology Conference on [...] IV contrast from today. Present at the [facility] Multidisciplinary GI Oncology Conference on 10/07/16. Further [...] bleeding on 07/19/16. She went to the [facility] ED. 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 47 minute document review cc: Dr. Alfaro, Radiation Oncology at [facility] in [place]. documented in this encounter Plan of Treatment +--------+---------+ + + + | Date | Type | Specialty | Care Team | Description | +--------+---------+ + + + | 06/18/ | Office | Surgery | Ailyn Wolff MD | | | 2019 | Visit | | [address] | | | | | | [place], | | | | | | [place] [address] | | | | | | [phone] | | | | | | | | +--------+---------+ + + + documented as of this encounter Procedures + +--------+ + + + | Procedure Name | Priori | Date/Time | Associated Diagnosis | Comments | | | ty | | | | + +--------+ + + + | [place] | Routin | 10/28/2016 | CA of [...]
--- OUTSIDE RECORDS SUMMARY | ~2019-05-24 | XMS | Encounter Summary ---
Demographics + + + | Address | [address] | | | [place] [address] | + + + | Home Phone [...] Team Providers + +------+ + | Care Hvac/R Instructor Name | Role | Phone | + +------+ + | Kristian Anderson DO | PCP | | + +------+ + Encounter Details +--------+ + + + + | Date | Type | Department | Care Team | Description | +--------+ + + + + | 09/22/ | Telephone | Digestive Health | Ailyn Wolff MD | | | 2017 | | [place] at [facility] [address] | [address] | | | | | [address] | [address] [place], | | | | | Mailcode: [place] | [place] [address] | | | | | for Health and | [phone] | | | | | [address] [place] [address] | | | | | | [place], [place] | | | | | | [address] | | | | | | [phone] | | | +--------+ + + + [...] | | 2018 | Visit | | [address] | | | | | | [place], | | | | | | [place] [address] | | | | | | [phone] | | | | | | | [...] | PATHOLOGY | | | | Institution: [facility] | | | | | | [facility], | | | | | | [place], [place] | | | | | | [id number] Accession | | | | | | Number: [id number] | | | | | | Collection Date: | | | | | | 09/02/2016Sublabeled | | | | | | H&E A to D | | | | | | 4 | | | | | | Final Pathologic | | | | | | Diagnosis:Multiple | | | | | | specimens A to D | | | | | | ([id number]; 09/02/16):Low | | | | | | [...] | + + + + + | [facility] | [address] | [place] [address] | | | PATHOLOGY | [address] | | | + + + + + documented in this encounter Visit Diagnoses + + | Diagnosis | + + | Rectal cancer (HCC) - Primary Malignant neoplasm of rectum | + + documented in this encounter"
--- OUTSIDE RECORDS SUMMARY | ~2019-05-24 | XMS | Encounter Summary ---
Demographics + + + | Address | [address] | | | [place] [address] | + + + | Home Phone [...] Team Providers + +------+ + | Care Machinist Helper Marine Name | Role | Phone | + [...] | | | | Epic Dept | [address] | | | | | | | [address] | | | | | | | [address] | | | | | | | [place], [place] | | | | | | | [address] | | | | | | | Phone: | | | | | | | [phone] | | | | | | | Fax: | | | | | | | [phone] | +--------+--------+ + + + + Encounter Details +--------+---------+ + + + | Date | Type | Department | Care Team | Description | +--------+---------+ + + + | 11/21/ | Office | Digestive Health | Ailyn Wolff MD | CA of rectum (HCC) | | 2018 | Visit | Center at [facility] [address] | [address] | (Primary Dx) | | | | [address] | [address], | | | | | Mailcode: [place] | [place] [address] | | | | | for Health and | [phone] | | | | | Healing, [address] | | | | | | [place], [place] | | | | | | [address] | | | | | | [phone] | | | +--------+---------+ + + + [...] rectal bleeding on 07/19/16 went to the [facility] ED CT abdomen/pelvis with IV contrast [...] (10/05/16) no liver metastases rigid proctoscopy by ne (10/05/16) 6 cm from anal verge presented at the [facility] Multidisciplinary GI Oncology Conference on [...] pouch staple line presented at [facility] Multidisciplinary GI Oncology Conference on 03/10/17. [...] 05/17/17) close to pelvic sidewall [facility] Multidisciplinary GI Oncology Conference (06/02/17) Recommendations [...] resection with primary anastomosis, placement of a 19-Cameroonian Albert drain through the right lower quadrant [...] resection with primary anastomosis, placement of a 19-Cameroonian Albert drain through the right lower quadrant [...] Return/Re-evaluation patient, I spent 13 minutes of latr-ti-corj time, of which m ore than half the time was spent in counseling. 10 minute document review do cumented in this encounter Plan of Treatment +--------+---------+ + + + | Date | Type | Specialty | Care Team | Description | +--------+---------+ + + + | 06/18/ | Office | Surgery | Ailyn Wolff MD | | | 2018 | Visit | | [address] | | | | | | [place], | | | | | | [place] [address] | | | | | | [phone] | | | | | | | | +--------+---------+ + + + documented as of this encounter Visit Diagnoses + + | Diagnosis | + + | 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
--- OUTSIDE RECORDS SUMMARY | ~2019-05-24 | XMS | Encounter Summary ---
Demographics + + + | Address | [address] | | | [place] [address] | + + + | Home Phone [...] Team Providers + +------+ + | Care Gastroenterology Nurse Name | Role | Phone | + [...] | | | | CT CHEST, | [place], [place] | Mailcode: | | | | | ABDOMEN AND | [address] | [address] [facility] | | | | | PELVIS W IV | Phone: | Hospital | | | | | CONTRAST AL | [phone] | [place], [place] | | | | | CAT SCAN OF | Fax: | [address] | | | | | CHEST | [phone] | Phone: | | | | | CONTRAST AL | | [phone] | | | | | CT | | Fax: | | | | | ABDOMEN&PELV | | [phone] | | | | | IS | [...] | | | | CT CHEST, | [place], [place] | Mailcode: | | | | | ABDOMEN AND | [address] | [address] [facility] | | | | | PELVIS W IV | Phone: | Hospital | | | | | CONTRAST AL | [phone] | [place], [place] | | | | | CAT SCAN OF | Fax: | [address] | | | | | CHEST | [phone] | Phone: | | | | | CONTRAST AL | | [phone] | | | | | CT | | Fax: | | | | | ABDOMEN&PELV | | [phone] | | | | | IS | [...] | 2017 | Encounter | Services at [facility] | [address] | | | | | [address] | Amita Hines [place], | | | | | Amita Hines Mailcode: | [place] [address] | | | | | [address] [facility] | [phone] | | | | | [place], [place] | | | | | | [address] | | | | | | [phone] | | | +--------+ + + + [...] | | | | | Amita Hines [place], | | | | | | [place] [address] | | | | | | [phone] | | | | | | | [...]
--- OUTSIDE RECORDS SUMMARY | ~2019-05-24 | XMS | Encounter Summary ---
Demographics + + + | Address | [address] | | | [place] [address] | + + + | Home Phone [...] Providers + +------+ + | Care Certified Income Tax Preparer Name | Role | Phone | + [...] | 6A Intra [facility] | Gerry Mendez | | | 2016 | Event | [facility] | MD Brock [address] | | | | | Admitting Desk | [address] | | | | | Located on the 9 | [place], [place] | | | | | [facility] [address] | [address] | | | | | [address] | [phone] | | | | | [place], [place] | | | | | | [address] | [place] [facility] | | | | | | LASHAWN Loja [address] | | | | | | [address] | | | | | | [place], [place] | | | | | | [address] | | | | | | [phone] | | | | | | | | +--------+ + + + + Anesthesia Record + + + + + | Procedure Name | Responsible | Anesthesia Start | Anesthesia Stop Time | | | Anesthesiologist | Time | | + + + + + | LOW ANTERIOR | Gerry Mendez, | 06/30/17720 | 06/30/17 6045 | | RESECTION, POSTERIOR | MD | [...] | | IV | 07/02/17; 1217 | WELDING PROCESS SPECIALIST | | +--------+ + + + | [...] | | | | | Amita Hines [place], | | | | | | [place] [address] | | | | | | [phone] | | | | | | | [...] SUPRIYA KO | | | IPerformed by WELDING PROCESS SPECIALIST: LA NENA DOMÍNGUEZ Attempt X2 by LASHAWN. [...] PST | | | | | Until [facility] 06/30/17 at 1712 | | | [...] PST | | | | | Until [facility] 06/30/17 at 1712 | iology | [...] 30 mg | | | | Starting [facility] 06/30/17 at 0809, | | 17 [...]
--- OUTSIDE RECORDS SUMMARY | ~2019-05-24 | XMS | Encounter Summary ---
Demographics + + + | Address | [address] | | | [place] [address] | + + + | Home Phone [...] Team Providers + +------+ + | Care Brim Cutter Name | Role | Phone | [...] | | 2018 | | Center at [facility] [address] | [address] | Review | | | | [address] | Amita Hines [place], | | | | | Mailcode: [place] | [place] [address] | | | | | for Health and | [phone] | | | | | [facility] 2 | | | | | | [place], [place] | | | | | | [address] | | | | | | [phone] | | | +--------+ + + + [...] | | | | | Amita Hines [place], | | | | | | [place] [address] | | | | | | [phone] | | | | | | | | +--------+---------+ + + + documented as of this encounter Visit Diagnoses Not on filedocumented in this encounter"
--- OUTSIDE RECORDS SUMMARY | ~2019-05-24 | XMS | Encounter Summary ---
Demographics + + + | Address | [address] | | | [place] [address] | + + + | Home Phone | | + + + | Preferred Language | Unknown | + + + | Marital Status | | + + + | Presybeterian Affiliation | Unknown | + + + | Race | Unknown | + + + | Ethnic Group | Unknown | + + + Author + + + | Author | [facility] | | | and [place] | + + + | Organization | [facility] | | | and [place] | + + + | Address | Unknown | + + + | Phone | Unavailable | + + + Support + + + + + | Name | Relationship | Address | Phone | + + + + + | Lamar Phillips | ECON | [place] [address] | | + + + + + Care Team Providers + +------+ + | Care Transportation Dispatch Manager Name | Role | Phone | [...] + | 04/12/ | Telephone | [facility] | Mychal Andre, | Medication Orders | | 2018 | | [facility] | [address] | | | | | [address] [facility], | D[place]ON [address] | | | | | [address] [place] | [place] | | | | | [place] [address] | [address] | | | | | [phone] | | | +--------+ + + + [...]
--- OUTSIDE RECORDS SUMMARY | ~2019-05-24 | XMS | Encounter Summary ---
Demographics + + + | Address | [address] | | | [place] [address] | + + + | Home Phone [...] Team Providers + +------+ + | Care Hard Hat Diver Name | Role | Phone | [...] | | 2017 | | Center at [facility] [address] | [address] | | | | | [address] | Amita Hines [place], | | | | | Mailcode: [place] | [place] [address] | | | | | for Health and | [phone] | | | | | [facility] 2 | | | | | | [place], [place] | | | | | | [address] | | | | | | [phone] | | | +--------+ + + + [...] | | | | | [place], | | | | | | [place] [address] | | | | | | [phone] | | | | | | | | +--------+---------+ + + + documented as of this encounter Visit Diagnoses Not on filecumented in this encounter"
--- OUTSIDE RECORDS SUMMARY | ~2019-05-24 | XMS | Encounter Summary ---
Demographics + + + | Address | [address] | | | [place] [address] | + + + | Home Phone [...] Providers + +------+ + | Care Marketing Proposal Coordinator Name | Role | Phone | + +------+ + | Kristian Anderson DO | PCP | | + +------+ + Encounter Details +--------+ + + + + | Date | Type | Department | Care Team | Description | +--------+ + + + + | 01/03/ | Document-Sc | Health Information | Unknown . | | | 2017 | anned | Services [address] | | | | | | [address] | | | | | | Mailcode: OP17A | | | | | | [facility] | | | | | | [place], [place] | | | | | | [address] | | | | | | [phone] | | | +--------+ + + + [...] | | | | | Amita Hines [place], | | | | | | [place] [address] | | | | | | [phone] | | | | | | | [...]
--- OUTSIDE RECORDS SUMMARY | ~2019-05-24 | XMS | Encounter Summary ---
Demographics + + + | Address | [address] | | | [place] [address] | + + + | Home Phone [...] Team Providers + +------+ + | Care Cane Burner Name | Role | Phone | + [...] | | 2017 | | Center at [facility] [address] | [address] | Review | | | | [address] | Amita Hines [place], | | | | | Mailcode: [place] | [place] [address] | | | | | for Health and | [phone] | | | | | [facility] 2 | | | | | | [place], [place] | | | | | | [address] | | | | | | [phone] | | | +--------+ + + + [...] | | | | | Amita Hines [place], | | | | | | [place] [address] | | | | | | [phone] | | | | | | | | +--------+---------+ + + + documented as of this encounter Visit Diagnoses Not on filedocumented in this encounter"
--- OUTSIDE RECORDS SUMMARY | ~2019-05-24 | XMS | Encounter Summary ---
Demographics + + + | Address | [address] | | | [place] [address] | + + + | Home Phone [...] + +------+ + | Care Tank Car Reconditioner Name | Role | Phone | + +------+ + | Kristian Anderson DO | PCP | | + +------+ + Encounter Details +--------+ + + + + | Date | Type | Department | Care Team | Description | +--------+ + + + + | 12/09/ | Procedure | Diagnostic Imaging | | | | 2016 | Pass | Services at [facility] | | | | | | [address] | | | | | | Amita Hines Mailcode: | | | | | | [address] | | | | | | [facility] | | | | | | [place], [place] | | | | | | [address] | | | | | | [phone] | | | +--------+ + + + [...] | | | | | | [place] [address] | | | | | | [phone] | | | | | | | | +--------+---------+ + + + documented as of this encounter Visit Diagnoses Not on filedocumented in this encounter"
--- OUTSIDE RECORDS SUMMARY | ~2019-05-24 | XMS | Encounter Summary ---
Demographics + + + | Address | [address] | | | [place] [address] | + + + | Home Phone [...] Team Providers + +------+ + | Care Forklift Mechanic Name | Role | Phone | [...] Record | | 2017 | | at [facility] [address] | | Review (GEN Records | | | | [address] Mailcode: | | Checklist ) | | | | [facility] | | | | | | Health and [facility], | | | | | | Building | | | | | | Floor [place], [place] | | | | | | [address] | | | | | | [phone] | | | +--------+ + + + [...] External Referral Last EKG with original tracings [facility] [place] Yes- Abstract Last Echo with images and report no Last Stress Test with images and report no Last Cardiac Catheterization - images and report no Last Holter or Event monitor - report no Labs (BMP, Lipids, TSH, Hemoglobin A1C in last 6 months) [facility] 09/29 Yes- A bstract [facility] Last PPM/ICD Interrogation report no Last [...] | | | | | Amita Hines [place], | | | | | | [place] [address] | | | | | | [phone] | | | | | | | | +--------+---------+ + + + documented as of this encounter Visit Diagnoses Not on filedocumented in this encounter"
--- OUTSIDE RECORDS SUMMARY | ~2019-05-24 | XMS | Encounter Summary ---
Demographics + + + | Address | [address] | | | [place] [address] | + + + | Home Phone [...] Team Providers + +------+ + | Care Physics Instructor Name | Role | Phone | [...] | 2017 | | Center at [facility] [address] | [address] | Received (CT) | | | | [address] | Amita Hines [place], | | | | | Mailcode: [place] | [place] [address] | | | | | for Health and | [phone] | | | | | [facility] 2 | | | | | | [place], [place] | | | | | | [address] | | | | | | [phone] | | | +--------+ + + + [...] | | | | | Amita Hines [place], | | | | | | [place] [address] | | | | | | [phone] | | | | | | | | +--------+---------+ + + + documented as of this encounter Visit Diagnoses Not on filedocumented in this encounter"
--- OUTSIDE RECORDS SUMMARY | ~2019-05-24 | XMS | Encounter Summary ---
Demographics + + + | Address | [address] | | | [place] [address] | + + + | Home Phone [...] Team Providers + +------+ + | Care New Car Get Ready Mechanic Name | Role | Phone | + +------+ + | Kristian Anderson DO | PCP | | + +------+ + Reason for Visit + + + | Reason | Comments | + + + | Discussion | | + + + Encounter Details +--------+ + + + + | Date | Type | Department | Care Team | Description | +--------+ + + + + | 03/15/ | Telephone | Dig[facility]ive Health | Ailyn Wolff MD | Discussion | | 2017 | | [place] [address] [address] | [address] | | | | | [address] | [facility], | | | | | Mailcode: [facility] [address] | | | | | for [facility] and | [phone] | | | | | [facility] 2 | | | | | | [place], [place] | | | | | | [address] | | | | | | [phone] | | | +--------+ + + + [...] | | | | | Amita Hines [place], | | | | | | [place] [address] | | | | | | [phone] | | | | | | | | +--------+---------+ + + + documented as of this encounter Visit Diagnoses Not on filedocumented in this encounter"
--- OUTSIDE RECORDS SUMMARY | ~2019-05-24 | XMS | Encounter Summary ---
Demographics + + + | Address | [address] | | | [place] [address] | + + + | Home Phone [...] Team Providers + +------+ + | Care Relocation Specialist Name | Role | Phone | [...] | +--------+ + + + + | 11/04/ | Abstract | [facility] | Ailyn Wolff MD | Medical Records | | 2018 | | Center at [facility] [address] | [address] | Review | | | | [address] | Amita Hines [place], | | | | | Mailcode: [place] | [place] [address] | | | | | for Health and | [phone] | | | | | [facility] 2 | | | | | | [place], [place] | | | | | | [address] | | | | | | [phone] | | | +--------+ + + + [...] | | | | | Amita Hines [place], | | | | | | [place] [address] | | | | | | [phone] | | | | | | | | +--------+---------+ + + + documented as of this encounter Visit Diagnoses Not on filedocumented in this encounter"
--- OUTSIDE RECORDS SUMMARY | ~2019-05-24 | XMS | Encounter Summary ---
Demographics + + + | Address | [address] | | | [place] [address] | + + + | Home Phone [...] Team Providers + +------+ + | Care Hardware Trainer Name | Role | Phone | + [...] | | 2017 | | Center at [facility] [address] | [address] | Planning Conference | | | | [address] | [address] [place], | delayed) | | | | Mailcode: [place] | [place] [address] | | | | | for Health and | [phone] | | | | | [facility] 2 | | | | | | [place], [place] | | | | | | [address] | | | | | | [phone] | | | +--------+ + + + [...] | | | | | Amita Hines [place], | | | | | | [place] [address] | | | | | | [phone] | | | | | | | | +--------+---------+ + + + documented as of this encounter Visit Diagnoses Not on filedocumented in this encounter"
--- OUTSIDE RECORDS SUMMARY | ~2019-05-24 | XMS | Encounter Summary ---
Demographics + + + | Address | [address] | | | [place] [address] | + + + | Home Phone [...] Team Providers + +------+ + | Care Php Web Developer Name | Role | Phone | [...] | | | [facility] | [employer] | | | | | [place] [address] | [address] | | | | | [place], [place] | | | | | | [address] | | | | | | [phone] | | | +--------+ + + + [...] | | 18 | | | | 142266, Skin prep: | | | | | | | 3M 3344 (30/mo), Adh | | | | | | | Rem HO 7760 | | | | | | | (1box/mo), Rings: HO | | | | | | | 8805 (10/mo), | | | | | | | [place]odorant[place] [address] | | | | | | | (60/mo), Pwdr: CT | | | | | | | 193674 (1oz/mo), | | | | | | | Belt: Lrg (2/mo) | | | | | | | and Irrigation [place] | | | | | | | 159897, [place] | | | | | | | 428575 | | | | | + + [...] | | | | | Amita Hines [place], | | | | | | [place] [address] | | | | | | [phone] | | | | | | | | +--------+---------+ + + + documented as of this encounter Visit Diagnoses Not on filedocumented in this encounter"
--- OUTSIDE RECORDS SUMMARY | ~2019-05-24 | XMS | Encounter Summary ---
Demographics + + + | Address | [address] | | | [place] [address] | + + + | Home Phone [...] Team Providers + +------+ + | Care Filtering Machine Tender Name | Role | Phone [...] | cancer (HCC) | [address] | | | | | Procedures | Amita Hines | Amita Hines | | | | | CT CHEST, | [place], [place] | Mailcode: | | | | | ABDOMEN AND | [address] | [address] [facility] | | | | | PELVIS W IV | Phone: | Hospital | | | | | [address] CT | [phone] | [place], [place] | | | | | CAT SCAN OF | Fax: | [address] | | | | | CHEST | [phone] | Phone: | | | | | CONTRAST CT | | [phone] | | | | | CT | | Fax: | | | | | ABDOMEN&PELV | | [phone] | | | | | IS | [...] | | | | CT CHEST, | [place], [place] | Mailcode: | | | | | ABDOMEN AND | [address] | [address] [facility] | | | | | PELVIS W IV | Phone: | Hospital | | | | | CONTRAST CT | [phone] | [place], [place] | | | | | CAT SCAN OF | Fax: | [address] | | | | | CHEST | [phone] | Phone: | | | | | CONTRAST CT | | [phone] | | | | | CT | | Fax: | | | | | ABDOMEN&PELV | | [phone] | | | | | IS | [...] | 2017 | Encounter | Services at [facility] | [address] | | | | | [address] | Amita Hines [place], | | | | | Amita Hines Mailcode: | [place] [address] | | | | | [address] [facility] | [phone] | | | | | [place], [place] | | | | | | [address] | | | | | | [phone] | | | +--------+ + + + [...] | | | | | Amita Hines [place], | | | | | | [place] [address] | | | | | | [phone] | | | | | | | [...]
--- OUTSIDE RECORDS SUMMARY | ~2019-05-24 | XMS | Encounter Summary ---
Demographics + + + | Address | [address] | | | [place] [address] | + + + | Home Phone [...] Team Providers + +------+ + | Care Cota Name | Role | Phone | + +------+ + | Kristian Anderson DO | PCP | | + +------+ + Encounter Details +--------+ + + + + | Date | Type | Department | Care Team | Description | +--------+ + + + + | 05/05/ | Telephone | Digestive Health | Ailyn Wolff MD | | | 2017 | | [place] at [facility] [address] | [address] | | | | | [address] | Amita Hines [place], | | | | | Mailcode: [place] | [place] [address] | | | | | for Health and | [phone] | | | | | [facility] 2 | | | | | | [place], [place] | | | | | | [address] | | | | | | [phone] | | | +--------+ + + + [...] | | | | | [address] [place], | | | | | | [place] [address] | | | | | | [phone] | | | | | | | | +--------+---------+ + + + documented as of this encounter Visit Diagnoses Not on filedocumented in this encounter"
--- OUTSIDE RECORDS SUMMARY | ~2019-05-24 | XMS | Encounter Summary ---
Demographics + + + | Address | [address] | | | [place] [address] | + + + | Home Phone [...] Team Providers + +------+ + | Care Environmental Emergencies Assistant Name | Role | Phone | [...] | | | | MR RECTAL | [place], [place] | Mailcode: | | | | | [place] | [address] | [address] | | | | | MRI, PELVIS, | Phone: | [place] | | | | | COMBO | [phone] | Research | | | | | | Fax: | Center | | | | | | [phone] | [place], [place] | | | | | | | [address] | | | | | | | Phone: | | | | | | | [phone] | | | | | | | Fax: | | | | | | | [phone] | +--------+--------+ + + + + Reason [...] cancer (HCC) | [address] | [address] | | | | | Procedures | [address] | Rd | | | | | MR RECTAL | [facility] [place] | Mailcode: | | | | | [place] | [address] | [address] | | | | | MRI, PELVIS, | Phone: | [place] | | | | | COMBO | [phone] | Research | | | | | | Fax: | Center | | | | | | [phone] | [place], [place] | | | | | | | [address] | | | | | | | Phone: | | | | | | | [phone] | | | | | | | Fax: | | | | | | | [phone] | +--------+--------+ + + + + Encounter Details +--------+ + + + + | Date | Type | Department | Care Team | Description | +--------+ + + + + | 10/05/ | Hospital | [facility] | Ailyn Wolff MD | | | 2017 | Encounter | [place] at | [address] | | | | | [place] [address] [address] | Amita Hines [place], | | | | | [address] | [place] [address] | | | | | [place], [place] | [phone] | | | | | [address] | | | | | | [phone] | | | +--------+ + + + [...] | | | | Amita Hines [place], | | | | | | [place] [address] | | | | | | [phone] | | | | | | | [...] | | | + +---------+ + + CARMNE STAPLETON (10/05/2016 9:55 AM PDT) + +---------+ [...] + + | [facility] | [address] | [place] [address] | [phone] | | IMAGING, POINT OF | | [...]
--- OUTSIDE RECORDS SUMMARY | ~2019-05-24 | XMS | Encounter Summary ---
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 | Phone: | Phone: | | | | | [place] PART | [phone] | [phone] | | | | | REMOVAL | Fax: | Fax: | | | | | COLON W | [phone] | [phone] | | | | | COLOPROCTOST | | | | | | | [place] PART | | | | | | | REMOVAL | | | | | | | COLON W | | | | | | | COLOPROC,COL | | | | | | | OST [place] | | | | | | | ILEOSTOMY/JE | | | | | | | JUNOSTOMY,NO | | | | | | | NTUBE [place] | | | | | | | REMOVE | | | | | | | VAGINA WALL, | | | | | | | PARTIAL [place] | | | | | | | REMOVE | | | | | | | VAGINA | | | | | | | TISSUE/PARTI | | | | | | | AL [place] | | | | | | | [...] | Malignant | Marty Toledo MD | [address] | | | | | neoplasm of | [place] | [address] | | | | | rectum | SURGICAL | [facility] | | | | | | [facility] | [place], [place] | | | | | | [address] | [address] | | | | | | [address] | Phone: | | | | | | [place], | [phone] | | | | | | [place] [address] | Fax: | | | | | | Phone: | [phone] | | | | | | [phone] | | | | | | | Fax: | | | | | | | [phone] | | +--------+--------+ + + + + Encounter Details +--------+---------+ + + + | Date | Type | Department | Care Team | Description | +--------+---------+ + + + | 03/02/ | Office | Dig[facility]ive [facility] | Ailyn Wolff MD | Rectal cancer (HCC) | | 2017 | Visit | Center at [facility] [address] | [address] | (Primary Dx) | | | | [address] | [facility], | | | | | Mailcode: [facility] [address] | | | | | [facility] and | [phone] | | | | | [place] [address] | | | | | | [place], [place] | | | | | | [address] | | | | | | [phone] | | | +--------+---------+ + + + [...] 03/02/2017 1:40 PM PDTPATIENT SURGERY INFORMATION [facility] General Surgery Office Toll-free: , [facility]: 04/21/2017 Procedure: Low anterior resection with posterior vaginectomy Surgeon Name: Dr. Ailyn Wolff MD DIRECTIONS FOR SURGERY DIET You should have clear liquids only for the entire day prior to surgery, no solid food. Kailee r liquids include anything you can see through, like water, fernando zack, lemon-eagle soft drin ks, apple juice, tea, Gatorade/sports [...] have questions please contact the clinic at [phone], if it is after clinic h ours please call the service station console operator at [phone] and ask to speak to the [facility] [facility] Resident internal audit consultant. CAUTION! Please call the clinic if you [...] preparation, please contact the surgery office at [phone]. After hours and on weekends this number may refer you to the hospital service station console operator ); please ask to speak to the general surgery resident internal audit consultant for Dr Javed. MEDICATIONS You may take [...] Smoking is not allowed on the [facility] campus. If you are a smoker, [...] anyone by 3:00 PM please call for [id number]. PARKING Parking for patients and visitors is available in the [facility] Parking structure located across from the emergency department. Patient parking is available on level 1 and 3. [address] parking is available on the top level. CHECKING IN FOR SURGERY Go in the main entrance and check in at the Admitting Desk 9th floor of [facility] TRANSPORTATION You will require transportation home on the day of discharge. Pain medications and physical activity restrictions may limit your ability to drive safely. CANCELLING YOUR PROCEDURE Please notify the general surgery office at [phone] as soon as possible should you nee [...] prior to your surgery. PRODUCTS CONTAINING ASPIRIN Katelyn-Lena, Anacin, Anexsia with Codeine, Andynos, Aspirin, Aspirin suppositories, Ascrip tin, Aspergum, Axotal, B-A-C, Baby Aspirin, Tony, BC Powder, Bexophene, Buffaprin, Bufferin , Buffinol, Cama-Arthritis Strength, Congespirin, [place], Coricidin, Damason, Darvon, Dristan, Annetta-Gesic, Digel, Dolprin #3 Tablets, Donatab, Doxaphene, Duragesic, Easprin, Ecotrin, Emag rin Forte, Emiprin, Emprazil, Equagesic, Equazine M, Excedrin, Fiogesic, Fiorgen PH, Fiorice t, Fiorinal, 4-Way Cold Tablet Gemnisyn, Indocin, Liquprin, Lortab ASA, Magnaprin, Marnal, Meprobamate, Midol, Momentum, N orgesic, Media, Orphengesic, Pabalate, P-A-C, Percodan, Presalin, Robaxasil, Roxiprin, Brian eto, Salocol SK-65 Compound, Sine-Aid, Sine-Off,, Tebbetts, Supac, Talwin Compound, Trigesic, Tolectin , Traiminicin, Vanquish, ZORprin, Zomax PRODUCTS CONTAINING IBUPROFEN Advil, Aleve, Haltran, Medipren, Midol, Motrin, Naproxyn, Nuprin, Rufen OTHER PRODUCTS WHICH MAY PROMOTE BLEEDING Vitamin E, Gingko Biloba, Marine Fatty Acids, [place]-3 Fish Oil Supplements Registration Process for all [...] hospital. 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 Pt denies further questions. I encouraged the pt to call with any questions, parveen rns, or new symptoms at [phone]. Bartolo, Ailyn White MD - 017 1:40 [...] rectal bleeding on 07/19/16 went [facility] ED CT abdomen/pelvis with IV contrast [...] from anal verge presented at the [facility] Multidisciplinary GI Oncology Conference on 10/07/16 [...] Mendoza pouch staple line presented at [facility] Multidisciplinary GI Oncology Conference on 03/10/17. [...] on 07/19/16 Plan: Present at the [facility] Multidisciplinary GI Oncology Conference on 03/10/17. [...] bleeding on 07/19/16. She went to the [facility] ED. CT abdomen/pelvis with IV [...] from anal verge presented at the [facility] Multidisciplinary GI Oncology Conference on 10/07/16 [...] breast Hypertension Mother Heart Attack Father from [place] at age 52 Diabetes Father Heart Attack Brother Coronary Artery Disease Brother NATHAN x 4 Social History Social History Marital status: Single Spouse name: Number of children: 1 Years of education: 12 Occupational History [employer] Social History Main Topics Smoking status: Former [...] established patient, I spent 38 minutes of [id number] time, of which more than half the time was spent in counseling. 18 minute document review cc: Dr. Alfaro, Radiation Oncology at [place] in [place]. Hemalatha Browning MD - 03/02/2017 1:40 PM [...] in her brother and father ( from [place] at age 52); and Hypertension in her [...] | | | | | | [place] [address] | | | | | | [phone] | | | | | | | | +--------+---------+ + + + documented as of this encounter Visit Diagnoses + + | Diagnosis | + + | Rectal cancer (HCC) - Primary Malignant neoplasm of rectum | + + documented in this encounter
--- OUTSIDE RECORDS SUMMARY | ~2019-05-24 | XMS | Encounter Summary ---
Demographics + + + | Address | [address] | | | [place] [address] | + + + | Home Phone [...] Team Providers + +------+ + | Care Valance Cutter Name | Role | Phone | [...] | | | | [facility] | [place], [place] | | | | | [place] [address] | [address] | | | | | [place], [place] | | | | | | [address] | | | | | | [phone] | | | +--------+ + + + [...] | | | | | Amita H[place], | | | | | | [place] [address] | | | | | | [phone] | | | | | | | | +--------+---------+ + + + documented as of this encounter Visit Diagnoses Not on filedocumented in this encounter"
--- OUTSIDE RECORDS SUMMARY | ~2019-05-24 | XMS | Encounter Summary ---
Demographics + + + | Address | [address] | | | [place] [address] | + + + | Home Phone [...] Providers + +------+ + | Care Lead Systems Developer Name | Role | Phone | [...] Center at [facility] [address] | [address] | results | | | | [address] | Amita H[facility] [place], | | | | | Mailcode: [place] | [place] [address] | | | | | for Health and | [phone] | | | | | [facility] [address] | | | | | | [place], [place] | | | | | | [address] | | | | | | [phone] | | | +--------+ + + + [...] | | 2019 | Visit | | [address] | | | | | | [facility]mita H[facility] [place], | | | | | | [place] [address] | | | | | | [phone] | | | | | | | | +--------+---------+ + + + documented as of this encounter Visit Diagnoses Not on filedocumented in this encounter"
--- OUTSIDE RECORDS SUMMARY | ~2019-05-24 | XMS | Encounter Summary ---
Demographics + + + | Address | [address] | | | [place] [address] | + + + | Home Phone [...] Providers + +------+ + | Care Machine Inker Name | Role | Phone | + [...] LOW ANTERIOR | | 2017 | | [facility] | [address] [facility] | RESECTION, POSTERIOR | | | | Admitting Desk | [place], | VAGINECTOMY, | | | | Located on the | [place] [address] | ILEOSTOMY, POSSIBLE | | | | floor [address] [facility] | [phone] | ABDOMINOPERINEAL | | | | [address] | | RESECTION Path: | | | | [place], [place] | | [id number] | | | | [address] | | | +--------+---------+ + + + [...] might be different fro m the original. [facility] Discharge Summary Green Service Admit Date: [...] posterior vaginal wall. 5. Placement of a 19-Slovenian Albert drain through the right lower quadrant [...] narcotic pain medications, please call the clinic ([phone] ) by 2 pm on for any [...] hours by calling the surgery office at [phone]. After hours, weekends and holidays, you may call the hospital thickener operator at [phone] and have the project control analyst Green Team for general surgery paged. Constipation: [...] your instructions. Acetaminophen (Tylenol): You may use hlqd-vsh-wlaobda (OTC) acetaminophen for milder pain. Do not [...] medications with Hydrocodone such as Vicodin or [place]. It is important to keep track of [...] Center 07/27/2017 3:40 PM Ailyn Wolff Digestive [facility] Center at [facility] 6th Floor [phone] [facility] Schedule the following appointment(s) when you get [...] to discharge) Natalie Poon MD Surgery, PGY1 Pending Sale To [facility] Associated attestation - Ailyn Wolff MD [...] through Care Everywhere.Bowel Resection : Open: Post-op (Chinese)Post-op Infection (Chinese)Ureteral Stent Placement: Post-op ([facility])documented in this encounter Medications at Time of [...] | | 18 | | | | 496119, Skin prep: | | | | | | | 3M 3344 (30/mo), Adh | | | | | | | Rem HO 7760 | | | | | | | (1box/mo), Rings: HO | | | | | | | 8805 (10/mo), | | | | | | | [place] [address] | | | | | | | (60/mo), Pwdr: CT | | | | | | | 961077 (1oz/mo), | | | | | | | Belt: Lrg (2/mo) | | | | | | | and Irrigation CO | | | | | | | 244462, Sleeve CO | | | | | | | 734382 | | | | | + + [...] Physician: Ailyn Wolff MD Patient: PAULETTE BYRNES [id number] 24H events/Subjective: Epidural removed yesterday, pain controlled. [...] of drainage, ostomy pink, appliance with stool. Reddick in place at tractotomy site. Extremities: WWP, [...] Tim Davila MD General Surgery, PGY-1 Pager: [phone] Associated attestation - Ailyn Wolff MD - [...] BLOCK PROGRESS NOTE 07/04/2017 Author: Andree English COMIC ILLUSTRATOR Epidural day # 4 POD# 4. Status [...] Andree English NP Adult Pain Service Pager [phone] Team Pager [phone] Tim See MD - 5:31 AM PST Green Surgery Progress Note Hospital Day: 4 Attending Physician: Ailyn Wolff MD Patient: PAULETTE BYRNES [id number] 24H events/Subjective: Epidural still functioning, removed later [...] Tim Davila MD General Surgery, PGY-1 Pager: [phone] Associated attestation - Ailyn Wolff MD - [...] 50 mL/hr intravenous CONTINUOUS 50 mL/hr (07/03/17 3685) ropivacaine 0.1 %-HYDROmorphone 10 mcg/mL epidural infusion [...] full diet Alta Woods MD Team Pager [phone] signed by lAta Woods MD at 07/03/2017 7:43 AM Miller [...] this patient. Alta Woods MD Team Pager [phone] signed by Alta Woods MD at 07/02/2017 [...] reach [place] [phone] with questions. Dorene Carter () MSN, ACNP- Nurse Practitioner [facility] [address] [place] [address] Vicki Erwin M D - 07/01/2017 6:04 AM PSTAPS brief note: Evaluated epidural at bedside. Catheter intact h/e filter broken resulting in leak. Replace d filtered and resumed epidural infusion. Vicki Emanuel MD APS pg [id number] signed by Vicki Emanuel MD at 07/10/2017 3:36 PM PSTHasl Natalie mckeon MD - 07/01/2017 5:36 AM PST Green Surgery Progress Note Hospital Day: 1 Attending Physician: Ailyn Wolff MD Patient: PAULETTE BYRNES [id number] 24H events/Subjective: Pt comfortable in bed this [...] - 07/01/1759 07/01/17699 - 07/02/17 0659 Shift 0690-8508 6137-8963 5174-4531 24 Hour Total 6755-9756 9397-0423 6976-7521 24 Hour Tot al I N T [...] Poon MD PGY-1 Department of General Surgery [id number] Ivette Shannon MD - 06/30/2017 11:02 PM [...] Jade MD Otolaryngology-Head & Neck Surgery PGY-1 [id number] documented in this encount er Plan of Treatment +--------+---------+ + + + | Date | Type | Specialty | Care Team | Description | +--------+---------+ + + + | 06/18/ | Office | Surgery | Ailyn Wolff MD | | | 2019 | Visit | | [address] | | | | | | [place], | | | | | | [place] [address] | | | | | | [phone] | | | | | | | [...] CHG), | e | 10:19 AM | ([facility]) | procedure are in the [...] PLACEMENT | ve | 8:03 AM | ([facility]) | | | | Surgic [...] MARCIALAM | [address] | [place], [place] | | | VIVIAN SCHM[facility]T OF CARE | [address] | [address] | | | TESTS | | | [...] | | | POC | | | VIVAIN SCHMIDT | | | | | | [...] MARQUAM | [address] | [place], [place] | | | [facility] OF CARE | [address] | [address] | | | TESTS | | | [...] BALDWIN | [address] | [place], [place] | | | [facility] OF CARE | [address] | [address] | | | TESTS | | | [...] MARCIALAM | [address] | [place], [place] | | | [facility] OF CARE | [address] | [address] | | | TESTS | | | [...] MARQUAM | [address] | [place], [place] | | | [facility]ARE | [address] | [address] | | | TESTS | | | [...] BALDWIN | [address] | [place], [place] | | | [facility] OF CARE | [address] | [address] | | | TESTS | | | [...] MARQUAM | [address] | [place], [place] | | | V[facility] OF CARE | [address] | [address] | | | TESTS | | | [...] - MARQUAM | [address] | [place], [place] | | | [facility]ARE | [address] | [address] | | | TESTS | | | [...] (H) | 70 - 99 mg/dL | [facility] - | | | GLUCOSE, | [...] + + + | CHAPIN BALDWIN | [address] | [place], [place] | | | VIVIAN SCH[facility] OF [facility] | [address] | [address] | | | TESTS | | | [...] MARQUAM | [address] | [place], [place] | | | VIVIAN SCHMIDT OF [facility] | [address] | [address] | | | TESTS | | | [...] MARCIALAM | [address] | [place], [place] | | | V[facility]IAN SCH[facility] OF CARE | [address] | [address] | | | TESTS | | | [...] (L) | 70 - 99 mg/dL | [facility] - | | | GLUCOSE, | [...] BALDWIN | [address] | [place] | | | V[facility]IAN SCH[facility] OF CARE | [address] | [address] | | | TESTS | | | [...] NICOLASA | [address] | [place], [place] | | | VIVIAN SCH[facility]T OF [place] | [address] | [address] | | | TESTS | | | [...] - NICOLASA | [address] | [place], [place] | | | V[facility]IAN SCH[facility]T OF CARE | [facility] | [address] | | | TESTS | | | [...] BALDWIN | [address] | [place], [place] | | | VIVIAN SCHMIDT OF [place] | [facility] | [address] | | | TESTS | | | [...] | | POC | | | VIVIAN SCHIMDT | | | | | | OF [...] - MARQUAM | [address] | [place], [place] | | | [facility] CARE | [address] | [address] | | | TESTS | | | [...] + + + | CHAPIN BALDWIN | [address] | [place], [place] | | | [facility]ARE | [address] | [address] | | | TESTS | | | [...] MARQUAM | [address] | [place], [place] | | | [place] POINT OF CARE | [facility] | [address] | | | TESTS | | | [...] MARQUAM | [address] | [place] | | | VIVIAN SCHM[facility]T OF [place] [facility] | [address] | [address] | | | TESTS | | | [...] MARCIALAM | [address] | [place], [place] | | | VIVIAN SCHM[facility]T OF CARE | [address] | [address] | | | TESTS | | | [...] BALDWIN | [address] | [place] | | | V[facility]IAN SCHM[facility]T OF CARE | [address] | [address] | | | TESTS | | | [...] MARQUAM | [address] | [place] | | | VIVIAN SCHMIDT OF [place] | [address] | [address] | | | TESTS | | | [...] NICOLASA | [address] | [place], [place] | | | [facility] CARE | [facility] | [address] | | | TESTS | | | [...] (H) | 70 - 99 mg/dL | [facility] - | | | GLUCOSE, | [...] BALDWIN | [address] | [place] | | | V[facility]IAN SCH[facility]IDT OF [facility] | [facility] | [address] | | | TESTS | | | [...] MARQUAM | [address] | [place], [place] | | | VIVIAN SCHM[facility]T OF [place] | [address] | [address] | | | TESTS | | | [...] | + + + + + | [facility] | [address] | [place] [address] | | | SERVICES, CORE | SUZY [...] [facility] | [address] | [place] [address] | | | SERVICES, CORE | PARK [...] + + + + + | [facility] | [address] | [place] [address] | | | SERVICES, CORE | SUZY [...] | | | LABORATORY | | | FIJIAN | | | SERVICES, | | | [...] + + + + + | [facility] | [address] | [place] [address] | | | SERVICES, CORE | SUZY [...] (H) | 70 - 99 mg/dL | [facility] - | | | GLUCOSE, | | [...] NICOLASA | [address] | [place], [place] | | | VIVIAN SCHMIDT OF [place] | [facility] | [address] | | | TESTS | | | | + + + + + CAPILLARY BLOOD GLUCOSE (NO CHG), POC (07/01/2017 12:06 AM [facility]) + +---------+ + + + | Component [...] MARCIALAM | [address] | [place], [place] | | | VIIVAN SCHMIDT OF CARE | [facility] | [address] | | | TESTS | | | [...] (H) | 70 - 99 mg/dL | [facility] - | | | GLUCOSE, | [...] NICOLASA | [address] | [place] | | | [facility]INT OF CARE | [address] | [address] | | | TESTS | | | [...] NICOLASA | [address] | [place], [place] | | | VIVIAN SCH[facility]T OF [place] | [facility] | [address] | | | TESTS | | | [...] MARCIALAM | [address] | [place], [place] | | | [facility]INT OF CARE | [facility] | [address] | | | TESTS | | | [...] [facility] | [address] | [place] [address] | | | SERVICES, CORE | [address] | | | + + + + + OPERATION RECORD (06/30/2017 7:26 PM PST) + + | Procedure Note | + + | Ailyn Wolff MD - 06/30/2017 7:26 PM PST Date of Service: 06/30/2017 Attending | | Surgeon: Ailyn Wolff MD Bark Press Operator(s): Sae Slater MD | | Donna Gonzalez [...] resection with primary anastomosis.8. Placement of a 19-Slovenian Albert drain through the | | right lower quadrant wall into the presacral space.9. 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 Placement of anthony drain into former rectocutaneous | | . Cystoscopy and bilateral ureteral stent placement with [...] anal verge. I presented her at the [facility] Multidisciplinary GI Oncology | | conference [...] fistula tract. We performed a small bowel wksn-fw-rhdd | | stapled anastomosis. Note, the abscess [...] closed the mesentery with a 3-0 Polysorb pgzgqv-if-ftxxl suture. The anastomosis | | was widely [...] the external sphincter with interrupted 0 Polysorb isfelk-xb-rwqxr sutures. We closed | | the deep [...] #1 Maxon sutures x2. We placed a 19-Slovenian Albetr | | drain through the right lower [...] | | 06/30/2017 17:03:37DT: 06/30/2017 19:26:50Job #: [id number] | | | | /[id number] | + + CAPILLARY BLOOD GLUCOSE (NO [...] BALDWIN | [address] | [place], [place] | | | VIVIAN SCH[facility]T OF [place] | [address] | [address] | | | TESTS | | | [...] MARQUAM | [address] | [place], [place] | | | [facility]INT OF CARE | [address] | [address] | | | TESTS | | | [...] + + + | CHAPIN BALDWIN | [address] | [place], [place] | | | [facility]IAN SCH[facility]T OF [facility] | [address] | [address] | | | TESTS | | | | + + + + + PROCEDURE NOTE (06/30/2017 5:14 PM PST) + + | Procedure Note | + + | Sae Slater MD - 06/30/2017 5:14 PM PST BRIEF OPERATIVE NOTEProcedure Date: | | 06/30/2017Author: Sae Slater [facility] Physician: Dr. Ailyn Lowistants: Sae | | MD Nohemy, O1NcrslDonna Gonzalez MD, [id number] Diagnosis: rectal cancerPostoperative | | Diagnosis: sameProcedure [...] | | Abdominal precautionsInitial surgical contact: Green culinary intern. Sae Slater MDGeneral | | Surgery, [id number] | |2. En bloc resection of rectum, [...] | | | |Initial surgical contact: Green culinary intern. | | | | | |Sae Slater MD | |General Surgery, R5 | |Pager [phone] | + + PROCEDURE NOTE (06/30/2017 2:44 [...] c/o | | flank pain). Delilah ValePasuri [id number]-6Oymikazfgb of Urology | | | |Indications: 56 [...] | | | |Delilah Vale | |Pager [phone] | |PGY-5 | |Department of Urology | [...] BALDWIN | [address] | [place], [place] | | | [facility] SCH[facility]T OF [facility] | [address] | [address] | | | TESTS | | | [...] placementSURGEON: Juan Luis | | MD Princess INTERNATIONAL MARKETING MANAGER: Natalie Poon MDANESTHESIA: General. ESTIMATED BLOOD [...] usual | | sterile fashion. A 21 lithuanian cystoscope was inserted into the urethra atraumatically. [...] Cleve PGY - 1Department of Urology PGR [id number] | |The patient was brought to the [...] the usual sterile | |fashion. A 21 lithuanian cystoscope was inserted into the urethra atraumatically. [...] was then turned back over to the [facility] surgical team for their portion of the procedure. Dr. Sánchez was present and directed t he entirety of the case. | | | |The attending of record is Juan Luis Sánchez | | | | | |Natalie Poon MD | |PGY - 1 | |Department of Urology | |PGR [phone] | + + ABG-FULL ABL, POC (06/30/2017 [...] MARCIALAM | [address] | [place], [place] | | | VIVIAN SCHM[facility]T OF [place] | [facility] | [address] | | | TESTS | | | [...] (H) | 70 - 99 mg/dL | [facility] - | | | GLUCOSE, | [...] NICOLASA | [address] | [place], [place] | | | [facility] POINT OF CARE | [address] | [address] | | | TESTS | | | [...] + | Performing | Address | City/State/[facility] Cent[facility]ode | Phone Number | | Organization | | | | + + + + + | [facility] | [address] | [place], [place] | | | V[facility] OF [place] | [address] | [address] | | | TESTS | | | [...] | | | | | | (pT): [id number] Lymph | | | | | | Nodes (pN): | | | | | | mC8Sufiln of regional | | | | | [...] | | | | | | record #[id number]. | | | | | | A: [...] | | | | | | diameter. Area Mechanic | | | | | | sections [...] identified. | | | | | | Area Mechanic sections | | | | | | [...] additional | | | | | | brand representative sections | | | | | [...] adipose | | | | | | hboqrwK72, anal | | | | | | [...] | | | | | remnantF1 and U3qbgmi | | | | | | bowel [...] + + + + + | [facility] | [address] | [place] [address] | | | PATHOLOGY | [address] [...]
--- OUTSIDE RECORDS SUMMARY | ~2019-05-24 | XMS | Encounter Summary ---
Demographics + + + | Address | [address] | | | [place] [address] | + + + | Home Phone [...] Team Providers + +------+ + | Care Theatre Director Name | Role | Phone | [...] | 2018 | Encounter | Center at [facility] [address] | [address] | | | | | [address] | [place], | | | | | Mailcode: [place] | [place] [address] | | | | | for Health and | [phone] | | | | | [facility] | | | | | | [place], [place] | | | | | | [address] | | | | | | [phone] | | | +--------+ + + + [...] | | | | | [place], | | | | | | [place] [address] | | | | | | [phone] | | | | | | | | +--------+---------+ + + + documented as of this encounter Visit Diagnoses Not on filedocumented in this encounter"
--- OUTSIDE RECORDS SUMMARY | ~2019-05-24 | XMS | Encounter Summary ---
Demographics + + + | Address | [address] | | | [place] [address] | + + + | Home Phone [...] Providers + +------+ + | Care Assistant Womens Volleyball Coach Name | Role | Phone | [...] | 2018 | Encounter | Center at [facility] [address] | [address] | | | | | [address] | [place], | | | | | Mailcode: [place] | [place] [address] | | | | | for Health and | [phone] | | | | | [facility] 2 | | | | | | [place], [place] | | | | | | [address] | | | | | | [phone] | | | +--------+ + + + [...] | | | | | [place], | | | | | | [place] [address] | | | | | | [phone] | | | | | | | | +--------+---------+ + + + documented as of this encounter Visit Diagnoses Not on filedocumented in this encounter"
--- OUTSIDE RECORDS SUMMARY | ~2019-05-24 | XMS | Encounter Summary ---
Demographics + + + | Address | [address] | | | [place] [address] | + + + | Home Phone [...] Team Providers + +------+ + | Care Network Systems Analyst Name | Role | Phone | [...] | | | | Pre-operativ | [address] | | | | | | e | [address] | | | | | | cardiovascul | [place], | | | | | | ar | [place] | | | | | | examination | [address] | | | | | | Tobacco | Phone: | | | | | | abuse | [phone] | | | | | | Dyspnea, | Fax: | | | | | | unspecified | [phone] | | | | | | type [...] | | | | | | at [facility] [address] | | | | | | [address] Mailcode: | | | | | | [facility] | | | | [facility], | | | | | | [address] | | | | | | [place], [place] | | | | | | [address] | | | | | | [phone] | | | +--------+ + + + [...] | | 2018 | Visit | | [address] | | | | | | [place], | | | | | | [place] [address] | | | | | | [phone] | | | | | | | [...]
--- OUTSIDE RECORDS SUMMARY | ~2019-05-24 | XMS | Encounter Summary ---
Demographics + + + | Address | [address] | | | [place] [address] | + + + | Home Phone [...] Providers + +------+ + | Care Senior Investment Manager Name | Role | Phone | [...] | | | | Pre-operativ | [address] | | | | | | e | [address] | | | | | | cardiovascul | [place], | | | | | | [place] | [place] | | | | | | examination | [address] | | | | | | Tobacco | Phone: | | | | | | abuse | [phone] | | | | | | Dyspnea, | Fax: | | | | | | unspecified | [phone] | | | | | | type [...] | | | | Pre-operativ | [address] | | | | | | e | [address] | | | | | | cardiovascul | [place], | | | | | | ar | [place] | | | | | | examination | [address] | | | | | | Tobacco | Phone: | | | | | | abuse | [phone] | | | | | | Dyspnea, | Fax: | | | | | | unspecified | [phone] | | | | | | type [...] | | | | | | [place] [address] | [address] Floor | | | | | | Phone: | [place], [place] | | | | | | [phone] | [address] | | | | | | Fax: | Phone: | | | | | | [phone] | [phone] | | | | | | | Fax: | | | | | | | [phone] | +--------+--------+ + + + + Encounter Details +--------+---------+ + + + | Date | Type | Department | Care Team | Description | +--------+---------+ + + + | 10/06/ | Office | Cardiology General | Bischof, Brittany | Dyspnea, unspecified | | 2017 | Visit | at [facility] [address] | [address], [address] | type (Primary Dx); | | | | [address] Mailcode: | [address] [place], | Pre-operative | | | | [address] [facility] | [place] [address] | cardiovascular | | | | [facility], | [phone] | examination; Tobacco | | | | | | abuse; Aortic | | | | Floor [place], [place] | | systolic murmur on | | | | [address] | | examination | | | | [phone] | | | +--------+---------+ + + + [...] echo a nd dobutamine stress echo in [place], Call us back if they cannot get these done before 10/18/16 and we can do the tests at [facility].Electronically signed by WEN Gagnon 10/06/2016 [...] stents. He is 64. Her father of [place] at 52. History of Endocarditis or need for Endocarditis Prophylaxis? no History of Phen-Fen exposure? 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 She can walk up two [...] breast Hypertension Mother Heart Attack Father from [place] at age 52 Diabetes Father Heart Attack [...] negative for ischemia. Outside records reviewed from [facility] (in media tab) Cardiac Risk Stratification (based [...] [address] Mailcode: [address] [facility] [place] [address] [phone] signed by Brittany Laboy PA-C at 10/07/2016 [...] | | | | | Amita Hines [place], | | | | | | [place] [address] | | | | | | [phone] | | | | | | | [...] Performed At | + + + | [facility] | [facility] DEPT OF | | [facility] [address] | CARDIOLOGY | | [address], [place] [address] Ph: | | | Pt Name: PAULETTE BYRNES | | | Study Date / Time 10/06/2016 / 11:17:12 AMMRN: [id number] | | | Most recent prior: 10/06/2016Acc #: | | | [id number] No. previous echos: 1DOB: | | | 1960 Age: 55 years Gender: FHeight: 63.0 in | | | BSA: 1.67 f0Juaikc: | | | 142 lb Order ID: | | | [id number] medications: None.Indications: Preoperative | | | Evaluation Cantilever Crane Operator: Isaiah Min [facility] Referring Provider: Brittany Rojas Location: [facility] Performed: Definity contrast | | | and [...] | | | RNSupervising Physician: Cole Ch[facility]vez [facility] | | | signed by: [id number] Cole Chávez MD (10/06/2016, 1:52:06 | | | PM)REPORT [id number] HOSP=PO REGION=A0 Final | | | | [...] MD | | |Report electronically signed by: [id number] Cole Chávez MD (10/06/2016, 1:52:06 | | |PM) | | |REPORT [id number] HOSP=PO REGION=A0 | | | | | | | | | | | | | | | | | | Final | | + + + + + | Procedure Note | + + | Interface, Cardiology Results - 10/06/2016 1:52 PM [facility] | | [facility] Echocardi[facility] [address] [place] [address] | | [place], [place] [address] Pt Name: PAULETTE | | BRITTANY BYRNES Study Date / Time 10/06/2016 / 11:17:12 AMMRN: [id number] | | Most recent prior: 10/06/2016Acc #: [id number] No. previous | | echos: 1DOB: 1960 Age: 55 years Gender: FHeight: 63.0 in | | BSA: 1.67 m6Bfjpqf: 142 lb Order ID: | | [id number] medications: None.Indications: Preoperative Evaluation Cantilever Crane Operator: | | Isaiah Min [facility] Referring Provider: Brittany Rojas Location: [facility] | | Performed: Definity contrast and Dobutamine [...] | Jose M Chávez electronically signed by: [id number] Cole Chávez MD (10/06/2016, | | 1:52:06 PM)REPORT TUWD=[id number] HOSP=PO REGION=A0 Final | |predicted maximal heart [...] Chávez MD | |Report electronically signed by: [id number] Cole Chávez MD (10/06/2016, 1:52:06 | |PM) | |REPORT [id number] HOSP=PO REGION=A0 | | | | | | | | | | | | Final | + + + + + + + | Performing | Address | City/State/Zipcode | Phone Number | | Organization | | | | + + + + + | [facility] DEPT OF | [address] | [place], [place] | | | CARDIOLOGY | [address] | [address] | | + + + + + [...] formed At | + +---- + | [facility] | [facility] DEPT OF | | [facility] [address] | CAR DIOLOGY | | [address], [place] [address] Ph: | | | Pt Name: PAULETTE BYRNES | | | Study Date/Time 10/06/2016 / 8:59:07 AMN: [id number] | | | Most recent prior: -[facility] #: [id number] | | | No. previous echos: 0DOB: 1960 55 years Heart Rate: | | | 78 bpmHeight: 63.0 in Blood | | | Pressure: 131/69 mm/HgWeight: 142.0 lb | | | Gender: FBSA: 1.67 m2 | | | Order ID: [id number] Cantilever Crane Operator: Brandon Hwang MA, | | | [facility] [...] Report electronically signed by: | | | [id number] Cole Chávez MD (10/06/2016, 10:21:24 AM)REPORT | | | [id number]=[id number] HOSP=PO REGION=A0 Final | | | cm [...] | | | |Report electronically signed by: [id number] Cole Chávez MD (10/06/2016, 10:21:24 | | |AM) | | |REPORT [id number]=[id number] HOSP=PO REGION=A0 | | | | | | | | | | | | Final | | + +---- + + + | Procedure Note | + + | Interface, Cardiology Results - 10/06/2016 10:21 AM PDT [facility] | | [facility] [address] [place] [address] | | [place], [place] [address] Pt Name: PAULETTE | | BRITTANY BYRNES Study Date/Time 10/06/2016 / 8:59:07 AMMRN: [id number] | | Most recent prior: -[facility] #: [id number] No. previous echos: 0DOB: | | 1960 55 years Heart Rate: 78 bpmHeight: 63.0 in Blood | | Pressure: 131/69 mm/HgWeight: 142.0 lb Gender: FBSA: | | 1.67 m2 Order ID: [id number] Cantilever Crane Operator: Brandon Hwang MA, | | RDCSReferring Provider: Brittany Rojas Location: [facility] Performed: | | 2D, Color flow, Spectral [...] | indexed values Report electronically signed by: [id number] Cole Chávez MD | | (10/06/2016, 10:21:24 AM)REPORT [id number]=[id number] HOSP= REGION=A0 Final | |ventricular ejection fraction [...] | | | |Report electronically signed by: [id number] Cole Chávez MD (10/06/2016, 10:21:24 | |AM) | |REPORT [id number]=[id number] HOSP=PO REGION=A0 | | | | | | | | Final | + + + + + + + | Performing | Address | City/State/Zipcode | Phone Number | | Organization | | | | + + + + + | [facility] | [address] | [place], [place] | | | CARDIOLOGY | [address] | [address] | | + + + + + [...] + + | [facility] | [address] | [place], [place] | | | CARDIOLOGY | [address] | [address] | | + + + + + [...]
--- OUTSIDE RECORDS SUMMARY | ~2019-05-24 | XMS | Encounter Summary ---
Demographics + + + | Address | [address] | | | [place] [address] | + + + | Home Phone [...] Team Providers + +------+ + | Care Slip Caster Name | Role | Phone | + [...] | | | | MR RECTAL | [place], [place] | Mailcode: | | | | | [place] | [address] | [address] | | | | | MRI, PELVIS, | Phone: | [facility] | | | | | COMBO | [phone] | Research | | | | | | Fax: | Center | | | | | | [phone] | [place], [place] | | | | | | | [address] | | | | | | | Phone: | | | | | | | [phone] | | | | | | | Fax: | | | | | | | [phone] | +--------+--------+ + + + + Reason [...] | | | MR RECTAL | [facility] [place] | Mailcode: | | | | | [place] | [address] | [address] | | | | | MRI, PELVIS, | Phone: | [facility] | | | | | COMBO | [phone] | Research | | | | | | Fax: | Center | | | | | | [phone] | [place], [place] | | | | | | | [address] | | | | | | | Phone: | | | | | | | [phone] | | | | | | | Fax: | | | | | | | [phone] | +--------+--------+ + + + + Encounter Details +--------+ + + + + | Date | Type | Department | Care Team | Description | +--------+ + + + + | 03/02/ | Hospital | Diagnostic Imaging | Ailyn Wolff MD | | | 2017 | Encounter | Services at [facility] | [address] | | | | | [address] | Amita Hines [place], | | | | | Amita Hines Mailcode: | [place] [address] | | | | | [address] [place] | [phone] | | | | | [facility] | | | | | | [place], [place] | | | | | | [address] | | | | | | [phone] | | | +--------+ + + + [...] | | | | | [address] [place], | | | | | | [place] [address] | | | | | | [phone] | | | | | | | [...]
--- OUTSIDE RECORDS SUMMARY | ~2019-05-24 | XMS | Encounter Summary ---
Demographics + + + | Address | [address] | | | [place] [address] | + + + | Home Phone [...] Team Providers + +------+ + | Care Plaster Pattern Caster Name | Role | Phone | [...] | | 2018 | | Center at [facility] [address] | [address] | | | | | [address] [place] | Amita Hines [facility] | | | | | Mailcode: [place] | [place] [address] | | | | | for Health and | [phone] | | | | | [facility] [address] | | | | | | [place], [place] | | | | | | [address] | | | | | | [phone] | | | +--------+ + + + [...] | | | | | | [place] [address] | | | | | | [phone] | | | | | | | | +--------+---------+ + + + documented as of this encounter Visit Diagnoses Not on filedocumented in this encounter"
--- OUTSIDE RECORDS SUMMARY | ~2019-05-24 | XMS | Encounter Summary ---
Demographics + + + | Address | [address] | | | [place] [address] | + + + | Home Phone [...] Team Providers + +------+ + | Care Undercover Agent Name | Role | Phone | [...] | 2018 | on | Center at [facility] [address] | [address] | Received (Out of | | | | [address] [place] | [facility] | | | | Mailcode: [place] | [place] [address] | Authorization ) | | | | for Health and | [phone] | | | | | [facility] | | | | | | [place], [place] | | | | | | [address] | | | | | | [phone] | | | +--------+ + + + [...] | | | | | [place]mita [place], | | | | | | [place] [address] | | | | | | [phone] | | | | | | | | +--------+---------+ + + + documented as of this encounter Visit Diagnoses Not on filedocumented in this encounter"
--- OUTSIDE RECORDS SUMMARY | ~2019-05-24 | XMS | Encounter Summary ---
Demographics + + + | Address | [address] | | | [place] [address] | + + + | Home Phone [...] Team Providers + +------+ + | Care Evidence Specialist Name | Role | Phone | [...] LOW ANTERIOR | | 2017 | | [facility] | [address] [facility] | RESECTION, POSTERIOR | | | | Admitting Desk | [place]zy H[place], | VAGINECTOMY, | | | | Located on the | [place] [address] | ILEOSTOMY, POSSIBLE | | | | floor [address] [facility] | [phone] | ABDOMINOPERINEAL | | | | [address] | | RESECTION Path: | | | | [place], [place] | | Stanx2 FSx3 Freshx1 | | | | [address] | | | +--------+---------+ + + + [...] might be different fro m the original. [facility] Discharge Summary Green Service Admit [...] narcotic pain medications, please call the clinic ([phone] ) by 2 pm on for any [...] hours by calling the surgery office at [phone]. After hours, weekends and holidays, you may call the hospital automatic quilling machine operator at [phone] and have the broadcast director operations Green Team for general surgery paged. Constipation: [...] your instructions. Acetaminophen (Tylenol): You may use spai-zos-mlptnmm (OTC) acetaminophen for milder pain. Do not [...] medications with Hydrocodone such as Vicodin or [place]. It is important to keep track of [...] Center 07/27/2017 3:40 PM Ailyn Wolff Digestive [facility] Center at [facility] 6th Floor [phone] Critical Access Hospital Schedule the following appointment(s) when you get [...] to discharge) Natalie Poon MD Surgery, PGY1 [facility] Associated attestation - Ailyn Wolff MD [...] through Care Everywhere.Bowel Resection : Open: Post-op (Tamazight)Post-op Infection (Tamazight)Ureteral Stent Placement: [facility]-op ([facility])documented in this encounter Medications at Time of [...] | | 18 | | | | 890752, Skin prep: | | | | | | | 3M 3344 (30/mo), Adh | | | | | | | Rem HO 7760 | | | | | | | (1box/mo), Rings: HO | | | | | | | 8805 (10/mo), | | | | | | | [place]odor[place] [address] | | | | | | | (60/mo), Pwdr: CT | | | | | | | 299997 (1oz/mo), | | | | | | | Belt: Lrg (2/mo) | | | | | | | and Irrigation CO | | | | | | | 980367, Sleeve CO | | | | | | | 211258 | | | | | + + [...] Physician: Ailyn Wolff MD Patient: PAULETTE BYRNES [id number] 24H events/Subjective: Epidural removed yesterday, pain controlled. [...] of drainage, ostomy pink, appliance with stool. Butler in place at tractotomy site. Extremities: WWP, [...] Tim Davila MD General Surgery, PGY-1 Pager: [phone] Associated attestation - Ailyn Wolff MD - [...] BLOCK PROGRESS NOTE 07/04/2017 Author: Andree English CUTTER AND PRESSER Epidural day # 4 POD# 4. Status [...] Andree English NP Adult Pain Service Pager [phone] Team Pager [phone] Tim See MD - 5:31 AM PST Green Surgery Progress Note Hospital Day: 4 Attending Physician: Ailyn Wolff MD Patient: PAULETTE BYRNES [id number] 24H events/Subjective: Epidural still functioning, removed later [...] Tim Davila MD General Surgery, PGY-1 Pager: [phone] Associated attestation - Ailyn Wolff MD - [...] 50 mL/hr intravenous CONTINUOUS 50 mL/hr (07/03/17 9075) ropivacaine 0.1 %-HYDROmorphone 10 mcg/mL epidural infusion [...] full diet Alta Woods MD Team Pager [phone] signed by Alta Woods MD at 07/03/2017 [...] this patient. Alta Woods MD Team Pager [phone] signed by Alta Woods MD at 07/02/2017 [...] reach [place] [phone] with questions. Dorene Carter () MSN, ACNP- Nurse Practitioner [facility] [address] [place] [address] Vicki Erwin M D - 07/01/2017 6:04 AM PSTAPS brief note: Evaluated epidural at bedside. Catheter intact h/e filter broken resulting in leak. Replace d filtered and resumed epidural infusion. Vicki Emanuel MD APS pg [phone] signed by Vicki Emanuel MD at 07/10/2017 3:36 PM PSTHasl Natalie mckeon MD - 07/01/2017 5:36 AM PST Green Surgery Progress Note Hospital Day: 1 Attending Physician: Ailyn Wolff MD Patient: PAULETTE BYRNES [id number] 24H events/Subjective: Pt comfortable in bed this [...] - 07/01/1759 07/01/17699 - 07/02/17 0659 Shift 7946-9598 4408-2976 5464-6802 24 Hour Total 0203-8150 7210-2628 7878-9381 24 Hour Tot al I N T [...] Poon MD PGY-1 Department of General Surgery [id number] Ivette Shannon MD - 06/30/2017 11:02 PM [...] Jade MD Otolaryngology-Head & Neck Surgery PGY-1 [id number] documented in this encount er Plan of Treatment +--------+---------+ + + + | Date | Type | Specialty | Care Team | Description | +--------+---------+ + + + | 06/18/ | Office | Surgery | Ailyn Wolff MD | | | 2019 | Visit | | [address] | | | | | | [place]zy H[place], | | | | | | [place] [address] | | | | | | [phone] | | | | | | | [...] CHG), | e | 10:19 AM | ([facility]) | procedure are in the | | [...] PLACEMENT | ve | 8:03 AM | ([facility]) | | | | Surgic | PST [...] MARCIALAM | [address] | [place], [place] | | | [facility]ARE | [address] | [address] | | | TESTS | | | [...] MARQUAM | [address] | [place], [place] | | | [facility] | [address] | [address] | | | TESTS | | | [...] BALDWIN | [address] | [place], [place] | | | [facility] | [address] | [address] | | | TESTS | | | [...] MARCIALAM | [address] | [place], [place] | | | [facility] | [address] | [address] | | | TESTS | | | [...] MARQUAM | [address] | [place], [place] | | | [facility] | [address] | [address] | | | TESTS | | | [...] BALDWIN | [address] | [place], [place] | | | [facility] | [address] | [address] | | | TESTS | | | [...] MARQUAM | [address] | [place], [place] | | | [facility] | [address] | [address] | | | TESTS | | | [...] - MARQUAM | [address] | [place], [place] | | | [facility] | [address] | [address] | | | TESTS | | | [...] (H) | 70 - 99 mg/dL | [facility] - | | | GLUCOSE, [...] + + + | CHAPIN BALDWIN | [address] | [place], [place] | | | [facility] OF [facility] | [address] | [address] | | | TESTS | | | [...] MARQUAM | [address] | [place], [place] | | | [facility] OF [place] | [address] | [address] | | | TESTS | | | [...] MARCIALAM | [address] | [place], [place] | | | [facility] | [address] | [address] | | | TESTS | | | [...] (L) | 70 - 99 mg/dL | [facility] - | | | GLUCOSE, [...] BALDWIN | [address] | [place], [place] | | | [facility] | [address] | [address] | | | TESTS | | | [...] NICOLASA | [address] | [place], [place] | | | [facility] OF [place] | [address] | [address] | | | TESTS | | | [...] - NICOLASA | [address] | [place], [place] | | | [facility] | [facility] | [address] | | | TESTS | | | [...] BALDWIN | [address] | [place], [place] | | | [facility] OF [place] | [facility] | [address] | | | TESTS | | | [...] - MARQUAM | [address] | [place], [place] | | | [facility] | [address] | [address] | | | TESTS | | | [...] + + + | CHAPIN BALDWIN | [address] | [place], [place] | | | [facility] | [address] | [address] | | | TESTS | | | [...] MARQUAM | [address] | [place], [place] | | | [facility] | [facility] | [address] | | | TESTS | | | [...] MARQUAM | [address] | [place], [place] | | | [facility] OF [place] | [address] | [address] | | | TESTS | | | [...] MARCIALAM | [address] | [place], [place] | | | [facility] | [address] | [address] | | | TESTS | | | [...] BALDWIN | [address] | [place], [place] | | | [facility] | [address] | [address] | | | TESTS | | | [...] MARQUAM | [address] | [place], [place] | | | [facility] OF [place] | [address] | [address] | | | TESTS | | | [...] NICOLASA | [address] | [place], [place] | | | [facility] | [facility] | [address] | | | TESTS | | | [...] (H) | 70 - 99 mg/dL | [facility] - | | | GLUCOSE, [...] BALDWIN | [address] | [place], [place] | | | [facility] OF [facility] | [facility] | [address] | | | TESTS | | | [...] MARQUAM | [address] | [place], [place] | | | [facility] OF [place] | [address] | [address] | | | TESTS | | | [...] | + + + + + | [facility] | [address] | [place] [address] | | | SERVICES, CORE | SUZY [...] [facility] | [address] | [place] [address] | | | SERVICES, CORE | PARK [...] | + + + + + | [facility] | [address] | [place] [address] | | | SERVICES, CORE | SUZY [...] | | | LABORATORY | | | INDONESIAN | | | SERVICES, | | | [...] | + + + + + | [facility] | [address] | [place] [address] | | | SERVICES, CORE | SUZY [...] (H) | 70 - 99 mg/dL | [facility] - | | | GLUCOSE, | | [...] NICOLASA | [address] | [place], [place] | | | [facility] OF [place] | [facility] | [address] | | | TESTS | | | | + + + + + CAPILLARY BLOOD GLUCOSE (NO CHG), POC (07/01/2017 12:06 AM [facility]) + +---------+ + + + [...] MARCIALAM | [address] | [place], [place] | | | [facility] | [facility] | [address] | | | TESTS | | | [...] (H) | 70 - 99 mg/dL | [facility] - | | | GLUCOSE, [...] NICOLASA | [address] | [place], [place] | | | [facility] | [address] | [address] | | | TESTS | | | [...] NICOLASA | [address] | [place], [place] | | | [facility] [place] | [facility] | [address] | | | TESTS | | | [...] MARCIALAM | [address] | [place], [place] | | | [facility]ARE | [facility] | [address] | | | TESTS | | | [...] [facility] | [address] | [place] [address] | | | SERVICES, CORE | [address] | | | + + + + + OPERATION RECORD (06/30/2017 7:26 PM PST) + + | Procedure Note | + + | Ailyn Wolff MD - 06/30/2017 7:26 PM PST Date of Service: 06/30/2017 Attending | | Surgeon: Ailyn Wolff MD Vehicle Technician(s): Sae Slater MD | | Donna Gonzalez [...] anthony drain into former rectocutaneous | | [id number]. Cystoscopy and bilateral ureteral stent placement with [...] anal verge. I presented her at the [facility] Multidisciplinary GI Oncology | | [...] fistula tract. We performed a small bowel htmt-sl-ytgk | | stapled anastomosis. Note, the abscess [...] closed the mesentery with a 3-0 Polysorb itcaqm-xb-adwul suture. The anastomosis | | was widely [...] the external sphincter with interrupted 0 Polysorb awzarg-si-mmooe sutures. We closed | | the deep [...] Maxon sutures x2. We placed a 19-Slovenian Albert | | drain through the right [...] | | 06/30/2017 17:03:37DT: 06/30/2017 19:26:50Job #: [id number] | | | | /[id number] | + + CAPILLARY BLOOD GLUCOSE (NO [...] BALDWIN | [address] | [place], [place] | | | [facility] [place] | [address] | [address] | | | TESTS | | | [...] MARQUAM | [address] | [place], [place] | | | [facility] | [address] | [address] | | | TESTS | | | [...] + + + | CHAPIN BALDWIN | [address] | [place], [place] | | | [facility] OF [facility] | [address] | [address] | | | TESTS | | | | + + + + + PROCEDURE NOTE (06/30/2017 5:14 PM PST) + + | Procedure Note | + + | Sae Slater MD - 06/30/2017 5:14 PM PST BRIEF OPERATIVE NOTEProcedure Date: | | 06/30/2017Author: Sae Slater [facility] Physician: Dr. Ailyn Lowistants: Sae | | MD Nohemy, [id number] Gonzalez MD, [id number] Diagnosis: rectal cancerPostoperative | | Diagnosis: sameProcedure [...] | | Abdominal precautionsInitial surgical contact: Green hospital intern. Sae Slater MDGeneral | | Surgery, [id number] [id number] | |2. En bloc resection of rectum, [...] | | | |Initial surgical contact: Green hospital intern. | | | | | |Sae Slater MD | |General Surgery, R5 | |Pager [phone] | + + PROCEDURE NOTE (06/30/2017 2:44 [...] c/o | | flank pain). Delilah ValePasuri [id number] of Urology | | | |Indications: 56 [...] | | | |Delilah Vale | |Pager [phone] | |PGY-5 | |Department of Urology | [...] BALDWIN | [address] | [place], [place] | | | [facility] | [address] | [address] | | | TESTS | | | [...] placementSURGEON: Juan Luis | | MD Princess ALL AROUND PRESSER: Natalie Poon MDANESTHESIA: General. ESTIMATED BLOOD LOSS: [...] usual | | sterile fashion. A 21 haitian cystoscope was inserted into the urethra atraumatically. [...] Cleve PGY - 1Department of Urology PGR [id number] | |The patient was brought to the [...] the usual sterile | |fashion. A 21 haitian cystoscope was inserted into the urethra atraumatically. [...] was then turned back over to the [facility] surgical team for their portion of the procedure. Dr. Sánchez was present and directed t he entirety of the case. | | | |The attending of record is Juan Luis Sánchez | | | | | |Natalie Poon MD | |PGY - 1 | |Department of Urology | |PGR [id number] | + + ABG-FULL ABL, POC (06/30/2017 [...] MARCIALAM | [address] | [place], [place] | | | [facility] [place] | [facility] | [address] | | | TESTS | | | [...] (H) | 70 - 99 mg/dL | [facility] - | | | GLUCOSE, [...] NICOLASA | [address] | [place], [place] | | | [facility]ARE | [address] | [address] | | | TESTS | | | [...] + + | Performing | Address | City/State/[facility]ode | Phone Number | | Organization | | | | + + + + + | [facility] | [address] | [place], [place] | | | [facility] [place] | [address] | [address] | | | TESTS | | | [...] | | | | | | (pT): tZ7Yvieegiz Lymph | | | | | | Nodes (pN): | | | | | | zU9Fpddjl of regional | | | | | [...] | | | | | | record #[id number]. | | | | | | A: [...] | | | | | | diameter. Electric Meter Tester Helper | | | | | | sections [...] identified. | | | | | | Electric Meter Tester Helper sections | | | | | | [...] additional | | | | | | outbound call center representative sections | | | | | [...] adipose | | | | | | ssjeccA04, anal | | | | | | [...] | | | | | remnantF1 and X0hmtjr | | | | | | bowel [...] | + + + + + | [facility] | [address] | [place] [address] | | | PATHOLOGY | [address] [...]
--- OUTSIDE RECORDS SUMMARY | ~2019-05-24 | XMS | Encounter Summary ---
Demographics + + + | Address | [address] | | | [place] [address] | + + + | Home Phone [...] Team Providers + +------+ + | Care Automated Logistics Specialist Name | Role | Phone | [...] | | | | [facility] | [place], [place] | | | | | [address] [address] | [address] | | | | | [place], [place] | | | | | | [address] | | | | | | [phone] | | | +--------+ + + + [...] | | 2019 | Visit | | [address] | | | | | | [place]mita H[place], | | | | | | [place] [address] | | | | | | [phone] | | | | | | | | +--------+---------+ + + + documented as of this encounter Visit Diagnoses Not on filedocumented in this encounter"
--- OUTSIDE RECORDS SUMMARY | ~2019-05-24 | XMS | Encounter Summary ---
Demographics + + + | Address | [address] | | | [place] [address] | + + + | Home Phone [...] Team Providers + +------+ + | Care Scaffold Worker Name | Role | Phone | [...] | | | | | | [place] [address] | | | +--------+ + + + [...] | | | | | | [place] [address] | | | | | | [phone] | | | | | | | | +--------+---------+ + + + documented as of this encounter Visit Diagnoses Not on filedocumented in this encounter"
--- OUTSIDE RECORDS SUMMARY | ~2019-05-24 | XMS | Encounter Summary ---
Demographics + + + | Address | [address] | | | [place] [address] | + + + | Home Phone [...] Team Providers + +------+ + | Care Video Game Programmer Name | Role | Phone [...] | | [address] | [place], | | | | | Mailcode: [place] | [place] [address] | | | | | for Health and | [phone] | | | | | [facility] 2 | | | | | | [place], [place] | | | | | | [address] | | | | | | [phone] | | | +--------+ + + + [...] | | | | | [place], | | | | | | [place] [address] | | | | | | [phone] | | | | | | | | +--------+---------+ + + + documented as of this encounter Visit Diagnoses Not on filedocumented in this encounter"
--- OUTSIDE RECORDS SUMMARY | ~2019-05-24 | XMS | Encounter Summary ---
Demographics + + + | Address | [address] | | | [place] [address] | + + + | Home Phone [...] Author | [facility] | + + + | Organization | [facility] | + + + | Address | Unknown | + + + | Phone | Unavailable | + + + Support + + +---------+ + | Name | Relationship | Address | Phone | + + +---------+ + | Darrius Quintana | ECON | Unknown | | + + +---------+ + Care Team Providers + +------+ + | Care Template Cutter Name | Role | Phone | [...] at [facility] [address] | [address] | the thigh); Blood in | | | | [address] | [address] [place], | urine (UTI work up | | | | Mailcode: [place] | [place] [address] | ordered) | | | | for Health and | [phone] | | | | | [facility] 2 | | | | | | [place], [place] | | | | | | [address] | | | | | | [phone] | | | +--------+ + + + [...] | | | | | [place]mita [place], | | | | | | [place] [address] | | | | | | [phone] | | | | | | | | +--------+---------+ + + + documented as of this encounter Visit Diagnoses + + | Diagnosis | + + | Hematuria, unspecified type - Primary | + + documented in this encounter"
--- OUTSIDE RECORDS SUMMARY | ~2019-05-24 | XMS | Encounter Summary ---
Demographics + + + | Address | [address] | | | [place] [address] | + + + | Home Phone [...] Team Providers + +------+ + | Care Wire Coating Operator Metal Name | Role | Phone | + [...] | | | | [facility] | [place], [place] | | | | | [address] [address] | [address] | | | | | [place], [place] | | | | | | [address] | | | | | | [phone] | | | +--------+ + + + [...] | | | | | Amita [place], | | | | | | [place] [address] | | | | | | [phone] | | | | | | | | +--------+---------+ + + + documented as of this encounter Visit Diagnoses Not on filedocumented in this encounter"
--- OUTSIDE RECORDS SUMMARY | ~2019-05-24 | XMS | Encounter Summary ---
Demographics + + + | Address | [address] | | | [place] [address] | + + + | Home Phone [...] Providers + +------+ + | Care Chief Pharmacist Name | Role | Phone | + [...] | Procedures | Amita Hines | [address] | | | | | CT CHEST, | [place], [place] | Mailcode: | | | | | ABDOMEN AND | [address] | [address] [facility] | | | | | PELVIS [address] IV | Phone: | Hospital | | | | | [place] | [phone] | [place], [place] | | | | | CAT SCAN OF | Fax: | [address] | | | | | CHEST | [phone] | Phone: | | | | | [place] | | [phone] | | | | | CT | | Fax: | | | | | ABDOMEN&PELV | | [phone] | | | | | IS | [...] | | | | CT CHEST, | [place], [place] | Mailcode: | | | | | ABDOMEN AND | [address] | [address] [facility] | | | | | PELVIS W IV | Phone: | Hospital | | | | | [place] | [phone] | [place], [place] | | | | | CAT SCAN OF | Fax: | [address] | | | | | CHEST | [phone] | Phone: | | | | | [place] | | [phone] | | | | | CT | | Fax: | | | | | ABDOMEN&PELV | | [phone] | | | | | IS | [...] | 2017 | Encounter | Services at [facility] | [address] | | | | | [address] | [place]mita Hines [place], | | | | | Amita Hines Mailcode: | [place] [address] | | | | | [address] [facility] | [phone] | | | | | [place], [place] | | | | | | [address] | | | | | | [phone] | | | +--------+ + + + [...] | | | | | Amita H[place], | | | | | | [place] [address] | | | | | | [phone] | | | | | | | [...]
--- OUTSIDE RECORDS SUMMARY | ~2019-05-24 | XMS | Encounter Summary ---
Demographics + + + | Address | [address] | | | [place] [address] | + + + | Home Phone [...] Team Providers + +------+ + | Care Precision Mechanical Instrument Maker Name | Role | Phone | [...] | | 2018 | | Center at [facility] [address] | [address] | Review | | | | [address] | Amita Hines [place], | | | | | Mailcode: [place] | [place] [address] | | | | | for Health and | [phone] | | | | | [facility] 2 | | | | | | [place], [place] | | | | | | [address] | | | | | | [phone] | | | +--------+ + + + [...] | | | | | Amita H[place], | | | | | | [place] [address] | | | | | | [phone] | | | | | | | | +--------+---------+ + + + documented as of this encounter Visit Diagnoses Not on filedocumented in this encounter"
--- OUTSIDE RECORDS SUMMARY | ~2019-05-24 | XMS | Encounter Summary ---
Demographics + + + | Address | [address] | | | [place] [address] | + + + | Home Phone [...] Team Providers + +------+ + | Care Leadership Intern Name | Role | Phone | [...] | 2017 | | Center at [facility] [address] | [address] | Received (10/27/2016 | | | | [address] | Amita Hines [place], | Op notes and | | | | Mailcode: [place] | [place] [address] | Pathology) | | | | for Health and | [phone] | | | | | [facility] 2 | | | | | | [place], [place] | | | | | | [address] | | | | | | [phone] | | | +--------+ + + + [...] | | | | | [address] [place], | | | | | | [place] [address] | | | | | | [phone] | | | | | | | | +--------+---------+ + + + documented as of this encounter Visit Diagnoses Not on filedocumented in this encounter"
--- OUTSIDE RECORDS SUMMARY | ~2019-05-24 | XMS | Encounter Summary ---
Demographics + + + | Address | [address] | | | [place] [address] | + + + | Home Phone [...] Team Providers + +------+ + | Care Executive Vice President Business Development Name | Role | Phone | + [...] 2017 | | Center at [facility] [place] [address] | [address] | | | | | [address] | Amita H[place], | | | | | Mailcode: [place] | [place] [address] | | | | | for Health and | [phone] | | | | | [facility] [address] | | | | | | [place], [place] | | | | | | [address] | | | | | | [phone] | | | +--------+ + + + [...] | | | | | [address] [place], | | | | | | [place] [address] | | | | | | [phone] | | | | | | | | +--------+---------+ + + + documented as of this encounter Visit Diagnoses Not on filecumented in this encounter"
--- OUTSIDE RECORDS SUMMARY | ~2019-05-24 | XMS | Encounter Summary ---
Demographics + + + | Address | [address] | | | [place] [address] | + + + | Home Phone [...] Team Providers + +------+ + | Care Market Investigator Name | Role | Phone | [...] | | 2017 | | Center at [facility] [address] | [address] | Review | | | | [address] | [place], | | | | | Mailcode: [place] | [place] [address] | | | | | for Health and | [phone] | | | | | [facility] [address] | | | | | | [place], [place] | | | | | | [address] | | | | | | [phone] | | | +--------+ + + + [...] | | | | | [place], | | | | | | [place] [address] | | | | | | [phone] | | | | | | | | +--------+---------+ + + + documented as of this encounter Visit Diagnoses Not on filedocumented in this encounter"
--- OUTSIDE RECORDS SUMMARY | ~2019-05-24 | XMS | Encounter Summary ---
Demographics + + + | Address | [address] | | | [place] [address] | + + + | Home Phone [...] Providers + +------+ + | Care Mining Helper Name | Role | Phone | [...] | 2017 | on | Center at [facility] [address] | [address] | (GI Oncology | | | | [address] | Amita Hines [place], | Planning Conference) | | | | Mailcode: [place] | [place] [address] | | | | | for Health and | [phone] | | | | | [facility] 2 | | | | | | [place], [place] | | | | | | [address] | | | | | | [phone] | | | +--------+ + + + [...] | | | | | [address] [place], | | | | | | [place] [address] | | | | | | [phone] | | | | | | | | +--------+---------+ + + + documented as of this encounter Visit Diagnoses Not on filedocumented in this encounter"
--- OUTSIDE RECORDS SUMMARY | ~2019-05-24 | XMS | Encounter Summary ---
Demographics + + + | Address | [address] | | | [place] [address] | + + + | Home Phone [...] Team Providers + +------+ + | Care Office Aide Name | Role | Phone | [...] Record | | 2017 | | at [facility] [address] | | Review (GEN Records | | | | [address] Mailcode: | | Checklist ) | | | | CH9A | | | | | | Health and [facility], | | | | | | Building | | | | | | Floor [place], [place] | | | | | | [address] | | | | | | [phone] | | | +--------+ + + + [...] Last EKG with original tracings [facility] [place] Yes- Abstract Last Echo with images and report no Last Stress Test with images and report no Last Cardiac Catheterization - images and report no Last Holter or Event monitor - report no Labs (BMP, Lipids, TSH, Hemoglobin A1C in last 6 months) [facility] 09/29 Yes- A bstract [facility] Last PPM/ICD Interrogation report no Last Cardiac MRI report/images if avail no Cardiac CTA - report and images if available no Patient Preferred Lab [facility] Additional Comments: documented in this enco unter Plan of Treatment +--------+---------+ + + + | Date | Type | Specialty | Care Team | Description | +--------+---------+ + + + | 06/18/ | Office | Surgery | iAlyn Wolff MD | | | 2019 | Visit | | [address] | | | | | | [place]mita Hines [place], | | | | | | [place] [address] | | | | | | [phone] | | | | | | | | +--------+---------+ + + + documented as of this encounter Visit Diagnoses Not on filedocumented in this encounter"
--- OUTSIDE RECORDS SUMMARY | ~2019-05-24 | XMS | Encounter Summary ---
Demographics + + + | Address | [address] | | | [place] [address] | + + + | Home Phone [...] Providers + +------+ + | Care Health Type Technician Name | Role | Phone | [...] | | | | CT CHEST, | [place], [place] | Mailcode: | | | | | ABDOMEN AND | [address] | [address] [facility] | | | | | [address]VIS [address] IV | Phone: | Hospital | | | | | [place] | [phone] | [employer] [employer], [place] | | | | | CAT SCAN OF | Fax: | [address] | | | | | CHEST | [phone] | Phone: | | | | | [place] | | [phone] | | | | | CT | | Fax: | | | | | ABDOMEN&PELV | | [phone] | | | | | IS | [...] | | | | MR RECTAL | [facility] [place] | Mailcode: | | | | | W/WO [place] | [address] | [address] | | | | | MRI, PELVIS, | Phone: | [place] | | | | | COMBO | [phone] | Research | | | | | | Fax: | Center | | | | | | [phone] | [place], [place] | | | | | | | [address] | | | | | | | Phone: | | | | | | | [phone] | | | | | | | Fax: | | | | | | | [phone] | +--------+--------+ + + + + Reason [...] | | 2017 | | Center at [facility] [address] | [address] | rectal protocol and | | | | [address] | [address] [employer], | CT c/a/p after 6 | | | | Mailcode: [place] | [place] [address] | cycles of chemo) | | | | for Health and | [phone] | | | | | [facility] 2 | | | | | | [place], [place] | | | | | | [address] | | | | | | [phone] | | | +--------+ + + + [...] | | | | | | [place] [address] | | | | | | [phone] | | | | | | | [...]
--- OUTSIDE RECORDS SUMMARY | ~2019-05-24 | XMS | Encounter Summary ---
Demographics + + + | Address | [address] | | | [place] [address] | + + + | Home Phone [...] Providers + +------+ + | Care Director Life Name | Role | Phone | + [...] | | | | [facility] | [place], [place] | | | | | [address] [address] | [address] | | | | | [place], [place] | | | | | | [address] | | | | | | [phone] | | | +--------+ + + + [...] | | | | | | [place] [address] | | | | | | [phone] | | | | | | | | +--------+---------+ + + + documented as of this encounter Visit Diagnoses Not on filedocumented in this encounter"
--- OUTSIDE RECORDS SUMMARY | ~2019-05-24 | XMS | Encounter Summary ---
Demographics + + + | Address | [address] | | | [place] [address] | + + + | Home Phone [...] Team Providers + +------+ + | Care Test Lab Technician Name | Role | Phone | [...] | | 2019 | | Center at [facility] [address] | [address] | Review | | | | [address] | Amita Hines [place], | | | | | Mailcode: [place] | [place] [address] | | | | | for Health and | [phone] | | | | | [facility] 2 | | | | | | [place], [place] | | | | | | [address] | | | | | | [phone] | | | +--------+ + + + [...] | | | | | [place]mita H[place], | | | | | | [place] [address] | | | | | | [phone] | | | | | | | | +--------+---------+ + + + documented as of this encounter Visit Diagnoses Not on filedocumented in this encounter"
--- OUTSIDE RECORDS SUMMARY | ~2019-05-24 | XMS | Clinical Summary ---
Demographics + + + | Address | [address] | | | [place] [address] | + + + | Home Phone | | + + + | Preferred Language | Unknown | + + + | Marital Status | | + + + | Rastafarian Affiliation | Unknown | + + + | Race | Unknown | + + + | Ethnic Group | Unknown | + + + Author + + + | Author | [facility] | | | and [place] | + + + | Organization | [facility] | | | and [place] | + + + | Address | Unknown | + + + | Phone | Unavailable | + + + Support + + + + + | Name | Relationship | Address | Phone | + + + + + | Lamar Phillips | ECON | [place] [address] | | + + + + + Care Team Providers + +------+ + | Care Technical Implementation Lead Name | Role | Phone | [...] 2010 (Rene). Pathological specimens; PAP | | #[id number] "negative for intraepithelial lesions or malignancy." | [...] DIAGNOSIS: Locally Advanced Rectal Cancer, | | [id number], Stage IIA. Willie Barajas presented to the [facility] emergency room on July 20, 2016 with [...] the rectum. Biopsy specimen number | | [id number] evaluated by Dr. Felipe Nixon of [facility] | | Pathology was notable for a tubular adenoma without high-grade | | dysplasia or overt carcinoma. This procedure also included a | | full colonoscopy through the ostomy were 2 additional polyps were | | removed, a tubular adenoma at 35 cm and a hyperplastic polyp at | | [address] C/A/P at in [place], [place] | | demonstrated no evidence of metastatic disease.4. On September 22 | | 2016 Dr. Thacker placed in internal jugular Port-A-Cath without | | complications.5. MRI of pelvis performed on October 05, 2016 at | | [facility]: Rectal mass 7.7 cm x 6.2 cm x 9.6 cm in length located | | within 3 cm of the anal sphincter and 6.4 cm from the anal verge | | with radiographic extension though multiple areas of the bowel | | wall.6. CT abdomen/pelvis also at [facility] October 05, 2016; large | | almost completely circumferential rectosigmoid mass better | | delineated on the corresponding MRI with adjacent probable | | abscess. No distant metastases identified.7. On October 14, 2016 | | Jenn was evaluated by Dr. Ailyn Wolff and Dr. Shea Mcneill of the | | [facility] where her case was presented | | to their tumor board. Clinical exam is notable for an overt | | rectal carcinoma invading into the vagina. 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 Concerns raised by the [facility] | | [facility] Tumor Board were that the prior [...] as mutation analysis." | | Pathological Specimen #[id number] (Linwood Nixon | | Pathology). Tubulovillous adenoma [...] Multidisciplinary Care Team | | Conference at [facility] March 10, 2017; "Given borderline | [...] Dr. Ailyn Wolff at the | | [facility]: 06/30/17: Exploratory laparotomy. Extensive lysis of | | adhesions. Excision of left lower quadrant fistula tract. Total | | mesorectal excision, intersphincteric abdominoperineal resection, | | en bloc resection of left ovary and left fallopian tube and | | posterior vaginal wall. Placement of a 19-Maori Albert drain | | through the right [...] August 12, 2017; [facility], [place], | | [place]; positive for perianal fistula between anus and vagina.22. | | Clinical exam on August 22, [address] A[address]n Wolff at [facility] who could | | not confirm [...] pelvis September 28, 2017 | | ([facility], [place], [place]); Small gas and fluid collection in the | | presacral space, concerning for abscess formation. Postoperative | | changes of low anterior resection, with left lower quadrant end | | colostomy. Left lower quadrant parastomal hernia. Last | | Assessment & Plan: Jenn Parada returned to clinic on | | 01/02/2018 with a canal superintendent for follow up of her locally advanced | | rectal cancer.Interval history is notable for the fact that | | Kirstie electively removed Jenn's port-a-cath.Interval history is | | also notable for the fact that Jenn had an encounter with her | | surgeon, Dr. Ailyn Wolff at [facility]. Dr. Wolff has asked Jenn to follow up | | with him in [place] every three months.Assessment; Locally | | advanced rectal cancer, status post 10 cycles of neoadjuvant | | FOFLOX, followed by definitive surgery on May 16, 2017, | | followed by two adjuvant cycles of FOLFOX completed on August | | 2017.Plan; Jenn will follow up with Dr. Wolff in [place] every | | three months. Currently, follow-up [...] | [facility] | [facility] | [id number] | | [phone] | | [employer] | [...] | | [address] (Home) | [place] [address] | + +--------+ +--------+ + + Advance Directives Patient has advance care planning documents on file. For more information, please contact:Marcus Merged with [facility] [place] [place] [address]
--- OUTSIDE RECORDS SUMMARY | ~2019-05-24 | XMS | Encounter Summary ---
Demographics + + + | Address | [address] | | | [place] [address] | + + + | Home Phone [...] Providers + +------+ + | Care Assistant Center Director Name | Role | Phone | [...] | | | | REQUEST TO | [place], [place] | [place], [place] | | | | | SURGERY | [address] | [address] | | | | | VEGETABLE LOADER | Phone: | Phone: | | | | | [place] | [phone] | [phone] | | | | | LAP,SURG,COL | Fax: | Fax: | | | | | ECTOMY,W/TASNEEM | [phone] | [phone] | | | | | ST SC | | | | | | | LAP,SURG,COL | | | | | | | ECTOMY,W/TASNEEM | | | | | | | ST,W/COLOSTO | | | | | | | MY SC | | | | | | | LAP,MBL | | | | | | | SPLNC FL SC | | | | | | | | | | | | | | LAP,SURG,COL | | | | | | | ECTOMY,W/REM | | | | | | | VL TERM | | | | | | | ILEUM SC | | | | | | | LAP,SURG,COL | | | | | | | ECTOMY,W/END | | | | | | | COLOST & | | | | | | | CLOSUR SC | | | | | | | LAP,ILEO/JEJ | | | | | | | YESIKA-STOMY | | | | | | | SC PART | | | | | | | REMOVAL | | | | | | | COLON W | | | | | | | COLOPROCTOST | | | | | | | LORI SC PART | | | | | | | REMOVAL | | | | | | | COLON W | | | | | | | COLOPROC,COL | | | | | | | OST SC | | | | | | | MOBILIZE | | | | | | | SPLENIC FLEX | | | | | | | SC PART | | | | | | | REMOVAL | | | | | | | COLON W END | | | | | | | COLOSTOMY | | | | | | | SC PART | | | | | | | REMOVAL | | | | | | | COLON W | | | | | | | OSTOMY/MUCOF | | | | | | | IST SC | | | | | | | ILEOSTOMY/JE | | | | | | | JUNOSTOMY,NO | | | | | | | NTUBE SC | | | | | | | REMOVE | | | | | | | VAGINA WALL, | | | | | | | PARTIAL SC | | | | | | | REMOVE | | | | | | | VAGINA | | | | | | | TISSUE/PARTI | | | | | | | AL SC | | | | | | | VAGINECTOMY | | | | | | | PARTIAL | | | | | | | W/NODES SC | | | | | | | PROCTECTOMY, | | | | | | | AP | | | | | | | RESECT+OSTOM | | | | | | | Y SC | | | | | | | PROCTECTOMY, | | | | | | | PARTIAL SC | | | | | | | PROCTECTOMY, | | | | | | | AP | | | | | | | RESEC,PULL-T | | | | | | | HRU SC | | | | | | | PROCTECTOMY, | | | | | | | PART,ILEAL | | | | | | | RESERV SC | | | | | | | PROCTECTOMY, | | | | | | | A-P PULLTHRU | | | | | | | W/RESERVOIR | | | | | | | SC | | | | | | | PROCTECTOMY, | | | | | | | COMPLT,PULL- | | | | | | | THRU,ANAST | | | | | | | SC | | | | | | | [...] | Malignant | Marty Toledo MD | [address] | | | | | neoplasm of | [place] | [address] | | | | | rectum | SURGICAL | Suzy Hines | | | | | | CLINIC [facility] | [place], [place] | | | | | | [address] | [address] | | | | | | [address]VE | Phone: | | | | | | [place], | [phone] | | | | | | [place] [address] | Fax: | | | | | | Phone: | [phone] | | | | | | [phone] | | | | | | | Fax: | | | | | | | [phone] | | +--------+--------+ + + + + Encounter Details +--------+---------+ + + + | Date | Type | Department | Care Team | Description | +--------+---------+ + + + | 06/13/ | Office | Digestive Health | Ailyn Wolff MD | Rectal cancer (HCC) | | 2017 | Visit | Center at [facility] [address] | [address] | (Primary Dx); CA of | | | | [address] | Suzy Hines [place], | rectum (HCC) | | | | Mailcode: [place] | [place] [address] | | | | | [facility] and | [phone] | | | | | [place] [address] | | | | | | [place], [place] | | | | | | [address] | | | | | | [phone] | | | +--------+---------+ + + + [...] - 06/13/2017 3:40 PM PSTPATIENT SURGERY INFORMATION [facility] General Surgery Office Toll-free: , request [facility] Surgery Date: 06/30/2017 Procedure: Low anterior resection, possible abdominoperineal resection. Surgeon Name: Dr. Ailyn Wolff MD DIRECTIONS FOR SURGERY DIET You should have clear liquids only for the entire day prior to surgery, no solid food. Kailee r liquids include anything you can see through, like water, fernando zack, lemon-nulato soft drin ks, apple juice, tea, Gatorade/sports [...] have questions please contact the clinic at [phone], if it is after clinic h ours please call the humidifier operator at [phone] and ask to speak to the Green Surgery Resident audio production engineer. CAUTION! Please call the clinic if [...] number may refer you to the hospital humidifier operator ); please ask to speak to the general surgery resident audio production engineer for Dr Javed. MEDICATIONS You may [...] e. Smoking is not allowed on the [facility] campus. If you are a [...] anyone by 3:00 PM please call for [id number]. PARKING Parking for patients and visitors is available in the [facility] Parking structure located across from the emergency [...] Please notify the general surgery office at [phone] as soon as possible should you nee [...] prior to your surgery. PRODUCTS CONTAINING ASPIRIN Katelyn-Andover, Anacin, Anexsia with Codeine, Andynos, Aspirin, Aspirin suppositories, Ascrip tin, Aspergum, Axotal, B-A-C, Baby Aspirin, Tony, BC Powder, Bexophene, Buffaprin, Bufferin , Buffinol, Cama-Arthritis Strength, Congespirin, Lynd, Coricidin, Damason, Darvon, Dristan, Annetta-Gesic, Digel, Dolprin #3 Tablets, Donatab, Doxaphene, Duragesic, Easprin, Ecotrin, Emag rin Forte, Emiprin, Emprazil, Equagesic, Equazine M, Excedrin, Fiogesic, Fiorgen PH, Fiorice t, Fiorinal, 4-Way Cold Tablet Gemnisyn, Indocin, Liquprin, Lortab ASA, Magnaprin, Marnal, Meprobamate, Midol, Momentum, N orgesic, Carey, Orphengesic, Pabalate, P-A-C, Percodan, Presalin, Robaxasil, Roxiprin, Brian eto, Salocol SK-65 Compound, Sine-Aid, Sine-Off,, [place], Supac, Talwin Compound, Trigesic, Tolectin , Traiminicin, Vanquish, ZORprin, Zomax PRODUCTS CONTAINING IBUPROFEN Advil, Aleve, Haltran, Medipren, Midol, Motrin, Naproxyn, Nuprin, Rufen OTHER PRODUCTS WHICH MAY PROMOTE BLEEDING Vitamin E, Gingko Biloba, Marine Fatty Acids, Marengo-3 Fish Oil Supplements Registration Process for all [...] on 07/19/16 went to the [facility] ED CT abdomen/pelvis with IV contrast (07/20/16) [...] (10/05/16) no liver metastases rigid proctoscopy by sc (10/05/16) 6 cm from anal verge presented at the [facility] Multidisciplinary GI Oncology Conference on [...] to Mendoza pouch staple line presented at [facility] Multidisciplinary GI Oncology Conference on [...] MRI ([facility], 05/17/17) close to pelvic sidewall [facility] Multidisciplinary GI Oncology Conference (06/02/17) [...] infection , pneumonia, UTI, recurrence, DVT, PE, VT, stroke, and were discussed, she wished to proceed with the above plan. Chief Complaint: 55 y.o. female with intermittent rectal bleeding since ~2013 and tailbone pain since 07/19/17. History of Present Illness: On 10/05/16, she told me: "intermittent rectal bleeding since ~2013 She had rectal urgency and a lot of rectal bleeding on 07/19/16. She [facility] ED. CT abdomen/pelvis with IV contrast (07/20/16) [...] rectal cancer. [facility] CT of the chest/abdomen/pelvis [...] cm from anal verge presented at the [facility] Multidisciplinary GI Oncology Conference on [...] fractions, 01/10/17-02/17/17. Dr. Alfaro, Radiation Oncology at [place] in [place]. MRI pelvis (03/02/17) tumor response but circumferential [...] for the LLQ tenderness/malodorous drainage." presented at [facility] Multidisciplinary GI Oncology Conference on [...] sidewall I again discussed her at the [facility] Multidisciplinary GI Oncology Conference (06/02/17) [...] Stool in her drain. 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 20 minute document review Noelle Clifford RN - 017 3:40 PM PSTNPO after midnight, Miralax/Gatorade bowel prep with antibiotics, prevention of constipation and pain control after surgery, responsible ride home upon [facility]. Discussed pre-operative plan such as granite fabricator calling the day before surgery to gi [...] starting with clears, need for PMC appt (MACHINIST HELPER), post-op appt (3 wk). Pt den ies further questions. I encouraged the pt to call with any questions, concerns, or new symp toms at [phone]. documented in this enco unter Plan of [...] | | | | | | [place] [address] | | | | | | [phone] | | | | | | | [...] | + + + + + | [facility]ORY | [address] | [place] [address] | | | SERVICES, CORE | PARK [...] | | | LABORATORY | | | TUNISIAN | | | SERVICES, | | | [...] CHAPIN JASKARAN | [address] | [place] [address] | | | SERVICES, CORE | SUZY [...]
--- OUTSIDE RECORDS SUMMARY | ~2019-05-24 | XMS | Encounter Summary ---
Demographics + + + | Address | [address] | | | [place] [address] | + + + | Home Phone [...] Team Providers + +------+ + | Care Quarry Equipment Operator Name | Role | Phone | [...] | | | | CT ABDOMEN | [place], [place] | Mailcode: | | | | | AND PELVIS | [address] | [address] [facility] | | | | | W IV | Phone: | Hospital | | | | | [place] | [phone] | [place], [place] | | | | | CT | Fax: | [address] | | | | | ABDOMEN&PELV | [phone] | Phone: | | | | | IS | | [phone] | | | | | W/CONTRAST | | Fax: | | | | | | | [phone] | +--------+--------+ + + + + Diagnostic [...] | | | | MR RECTAL | [place], [place] | Mailcode: | | | | | [place] | [address] | [address] | | | | | MRI, PELVIS, | Phone: | [place] | | | | | COMBO | [phone] | Research | | | | | | Fax: | Center | | | | | | [phone] | [facility] [place] | | | | | | | [address] | | | | | | | Phone: | | | | | | | [phone] | | | | | | | Fax: | | | | | | | [phone] | +--------+--------+ + + + + Encounter Details +--------+ + + + + | Date | Type | Department | Care Team | Description | +--------+ + + + + | 09/22/ | Last Remodeler Repairer | Digestive Health | Ailyn Wolff MD | Rectal cancer (HCC) | | 2017 | | [place] at [facility] [address] | [address] | (Primary Dx) | | | | [address] | Amita Hines [place], | | | | | Mailcode: [place] | [place] [address] | | | | | for [facility] and | [phone] | | | | | [facility] 2 | | | | | | [place], [place] | | | | | | [address] | | | | | | [phone] | | | +--------+ + + + [...] | | | | | | [place] [address] | | | | | | [phone] | | | | | | | [...]
--- OUTSIDE RECORDS SUMMARY | ~2019-05-24 | XMS | Encounter Summary ---
Demographics + + + | Address | [address] | | | [place] [address] | + + + | Home Phone [...] Team Providers + +------+ + | Care Rn Cardiology Name | Role | Phone | + [...] | | | Oncology | Rectal | [address] | [place] | | | | | cancer (HCC) | [address] | MD Wade | | | | | Procedures | Amita Hines | [address] | | | | | CONSULT TO | [place] | [place] | | | | | RADIATION | [address] | [place], | | | | | ONCOLOGY | Phone: | [place] | | | | | | [phone] | [address] | | | | | | Fax: | Phone: | | | | | | [phone] | [phone] | | | | | | | Fax: | | | | | | | [phone] | +--------+--------+ + + + + Encounter Details +--------+ + + + + | Date | Type | Department | Care Team | Description | +--------+ + + + + | 06/02/ | MyChart | Digestive Health | Ailyn Wolff MD | Info about my cancer | | 2017 | Encounter | [place] at [facility] [address] | [address] | | | | | [address] | Amita Hines [place], | | | | | Mailcode: [place] | [place] [address] | | | | | for Health and | [phone] | | | | | [facility] 2 | | | | | | [place], [place] | | | | | | [address] | | | | | | [phone] | | | +--------+ + + + [...] | | | | | Amita Hines [facility] | | | | | | [place] [address] | | | | | | [phone] | | | | | | | | +--------+---------+ + + + documented as of this encounter Visit Diagnoses + + | Diagnosis | + + | Rectal cancer (HCC) - Primary Malignant neoplasm of rectum | + + documented in this encounter"
--- OUTSIDE RECORDS SUMMARY | ~2019-05-24 | XMS | Encounter Summary ---
Demographics + + + | Address | [address] | | | [place] [address] | + + + | Home Phone [...] Team Providers + +------+ + | Care Meter Reader Inspector Name | Role | Phone | [...] | Discussion | | 2017 | | [place] [address] | [address] | | | | | [address] | [facility], | | | | | Mailcode: [facility] [address] | | | | | for [facility] and | [phone] | | | | | [facility] 2 | | | | | | [place], [place] | | | | | | [address] | | | | | | [phone] | | | +--------+ + + + [...] | | | | | Amita Hines [place], | | | | | | [place] [address] | | | | | | [phone] | | | | | | | | +--------+---------+ + + + documented as of this encounter Visit Diagnoses Not on filedocumented in this encounter"
--- OUTSIDE RECORDS SUMMARY | ~2019-05-24 | XMS | Encounter Summary ---
Demographics + + + | Address | [address] | | | [place] [address] | + + + | Home Phone [...] Providers + +------+ + | Care Community Affairs Director Name | Role | Phone | [...] | | 2019 | | Center at [facility] 3485 | [address] | Review | | | | [address] | Amita Hines [place], | | | | | Mailcode: [place] | [place] [address] | | | | | for Health and | [phone] | | | | | [facility] 2 | | | | | | [place], [place] | | | | | | [address] | | | | | | [phone] | | | +--------+ + + + [...] | | | | | | [place] [address] | | | | | | [phone] | | | | | | | | +--------+---------+ + + + documented as of this encounter Visit Diagnoses Not on filedocumented in this encounter"
--- OUTSIDE RECORDS SUMMARY | ~2019-05-24 | XMS | Encounter Summary ---
Demographics + + + | Address | [address] | | | [place] [address] | + + + | Home Phone [...] Team Providers + +------+ + | Care Pay Station Collector Name | Role | Phone | [...] To Surgery | | 2017 | | [place] at [facility] 3485 | | - General | | | | [address] | | | | | | Mailcode: [place] | | | | | | for Health and | | | | | | Healing, Building 2 | | | | | | [place], [place] | | | | | | [address] | | | | | | [phone] | | | +--------+ + + + [...] | | | | | Amita Hines [place], | | | | | | [place] [address] | | | | | | [phone] | | | | | | | | +--------+---------+ + + + documented as of this encounter Visit Diagnoses Not on filedocumented in this encounter"
--- OUTSIDE RECORDS SUMMARY | ~2019-05-24 | XMS | Encounter Summary ---
Demographics + + + | Address | [address] | | | [place] [address] | + + + | Home Phone [...] Team Providers + +------+ + | Care Utilization Manager Name | Role | Phone | [...] [address] | Amita Hines [place], | Op notes and | | | | Mailcode: [place] | [place] [address] | Pathology) | | | | for Health and | [phone] | | | | | [facility] 2 | | | | | | [place], [place] | | | | | | [address] | | | | | | [phone] | | | +--------+ + + + [...] | | | | | [address] [place], | | | | | | [place] [address] | | | | | | [phone] | | | | | | | | +--------+---------+ + + + documented as of this encounter Visit Diagnoses Not on filedocumented in this encounter"
--- OUTSIDE RECORDS SUMMARY | ~2019-05-24 | XMS | Encounter Summary ---
Demographics + + + | Address | [address] | | | [place] [address] | + + + | Home Phone [...] Providers + +------+ + | Care Auto Painter Helper Name | Role | Phone | [...] | Question | | 2016 | | [place] at [facility] [address]85 | [address] | | | | | [address] | Amita Hines [place], | | | | | Mailcode: Center | [place] [address] | | | | | for Health and | [phone] | | | | | [facility] 2 | | | | | | [place], [place] | | | | | | [address] | | | | | | [phone] | | | +--------+ + + + [...] | | | | | Amita Hines [place], | | | | | | [place] [address] | | | | | | [phone] | | | | | | | | +--------+---------+ + + + documented as of this encounter Visit Diagnoses Not on filedocumented in this encounter"
--- OUTSIDE RECORDS SUMMARY | ~2019-05-24 | XMS | Encounter Summary ---
Demographics + + + | Address | [address] | | | [place] [address] | + + + | Home Phone [...] Team Providers + +------+ + | Care Wildlife Removal Specialist Name | Role | Phone | [...] | | 2018 | | Center at [facility] 3485 | [address] | - Disregard | | | | [address] | [place], | | | | | Mailcode: [place] | [place] [address] | | | | | for Health and | [phone] | | | | | [facility] 2 | | | | | | [place], [place] | | | | | | [address] | | | | | | [phone] | | | +--------+ + + + [...] | | | | | Amita Hines [place], | | | | | | [place] [address] | | | | | | [phone] | | | | | | | | +--------+---------+ + + + documented as of this encounter Visit Diagnoses Not on filedocumented in this encounter"
--- OUTSIDE RECORDS SUMMARY | ~2019-05-24 | XMS | Encounter Summary ---
Demographics + + + | Address | [address] | | | [place] [address] | + + + | Home Phone [...] Team Providers + +------+ + | Care Bartender Helper Name | Role | Phone | + +------+ + | Kristian Anderson DO | PCP | | + +------+ + Encounter Details +--------+ + + + + | Date | Type | Department | Care Team | Description | +--------+ + + + + | 06/28/ | Telephone | Digestive Health | Ailyn Wolff MD | | | 2018 | | [place] at [facility] 3485 | [address] | | | | | [address] | Amita Hines [place], | | | | | Mailcode: [place] | [place] [address] | | | | | for Health and | [phone] | | | | | [place] [address] | | | | | | [place], [place] | | | | | | [address] | | | | | | [phone] | | | +--------+ + + + [...] | | | | | | [place] [address] | | | | | | [phone] | | | | | | | | +--------+---------+ + + + documented as of this encounter Visit Diagnoses Not on filedocumented in this encounter"
--- OUTSIDE RECORDS SUMMARY | ~2019-05-24 | XMS | Encounter Summary ---
Demographics + + + | Address | [address] | | | [place] [address] | + + + | Home Phone [...] Team Providers + +------+ + | Care Kettle Loader Name | Role | Phone | [...] | 2018 | Encounter | Center at [facility] [address] | [address] | | | | | [address] | Amita Hines [place], | | | | | Mailcode: [place] | [place] [address] | | | | | for Health and | [phone] | | | | | [facility], [facility] 2 | | | | | | [place], [place] | | | | | | [address] | | | | | | [phone] | | | +--------+ + + + [...] | | | | | Amita Hines [place], | | | | | | [place] [address] | | | | | | [phone] | | | | | | | | +--------+---------+ + + + documented as of this encounter Visit Diagnoses Not on filedocumented in this encounter"
--- OUTSIDE RECORDS SUMMARY | ~2019-05-24 | XMS | Encounter Summary ---
Demographics + + + | Address | [address] | | | [place] [address] | + + + | Home Phone [...] Team Providers + +------+ + | Care Placer Miner Name | Role | Phone | + [...] | | 2017 | | Center at [facility] [address]85 | [address] | Received (MRI) | | | | [address] | Amita Hines [place], | | | | | Mailcode: [place] | [place] [address] | | | | | for Health and | [phone] | | | | | [facility] 2 | | | | | | [place], [place] | | | | | | [address] | | | | | | [phone] | | | +--------+ + + + [...] | | | | | Amita Hines [place], | | | | | | [place] [address] | | | | | | [phone] | | | | | | | | +--------+---------+ + + + documented as of this encounter Visit Diagnoses Not on filedocumented in this encounter"
--- OUTSIDE RECORDS SUMMARY | ~2019-05-24 | XMS | Encounter Summary ---
Demographics + + + | Address | [address] | | | [place] [address] | + + + | Home Phone [...] Team Providers + +------+ + | Care Campground Caretaker Name | Role | Phone | [...] | | 2017 | | Center at [facility] [address]85 | [address] | Review | | | | [address] | Amita Hines [place], | | | | | Mailcode: [place] | [place] [address] | | | | | for Health and | [phone] | | | | | [facility] 2 | | | | | | [place], [place] | | | | | | [address] | | | | | | [phone] | | | +--------+ + + + [...] | | | | | Amita Hines [place], | | | | | | [place] [address] | | | | | | [phone] | | | | | | | | +--------+---------+ + + + documented as of this encounter Visit Diagnoses Not on filedocumented in this encounter"
--- OUTSIDE RECORDS SUMMARY | ~2019-05-24 | XMS | Encounter Summary ---
Demographics + + + | Address | [address] | | | [place] [address] | + + + | Home Phone [...] Team Providers + +------+ + | Care Proofer Prepress Name | Role | Phone | + [...] | | | Oncology | Rectal | [address] | Whit | | | | | cancer (HCC) | [address] | MD Wade | | | | | Procedures | Amita Hines | [address] | | | | | CONSULT TO | [place] | Hong Levi | | | | | RADIATION | [address] | Donny [place], | | | | | ONCOLOGY | Phone: | [place] | | | | | | [phone] | [address] | | | | | | Fax: | Phone: | | | | | | [phone] | [phone] | | | | | | | Fax: | | | | | | | [phone] | +--------+--------+ + + + + Encounter Details +--------+ + + + + | Date | Type | Department | Care Team | Description | +--------+ + + + + | 06/02/ | MyChart | Digestive Health | Ailyn Wolff MD | Info about my cancer | | 2017 | Encounter | [place] at [facility] [address]695 | [address] | | | | | [address] | Amita Hines [place], | | | | | Mailcode: [place] | [place] [address] | | | | | for Health and | [phone] | | | | | [facility] 2 | | | | | | [place], [place] | | | | | | [address] | | | | | | [phone] | | | +--------+ + + + [...] | | | | | Amita Hines [facility] | | | | | | [place] [address] | | | | | | [phone] | | | | | | | | +--------+---------+ + + + documented as of this encounter Visit Diagnoses + + | Diagnosis | + + | Rectal cancer (HCC) - Primary Malignant neoplasm of rectum | + + documented in this encounter"
--- OUTSIDE RECORDS SUMMARY | ~2019-05-24 | XMS | Encounter Summary ---
Demographics + + + | Address | [address] | | | [place] [address] | + + + | Home Phone [...] Team Providers + +------+ + | Care Jumbo Operator Name | Role | Phone | [...] 2018 | | Center at [facility] [address]85 | [address] | Review | | | | [address] | Amita Hines [place], | | | | | Mailcode: [place] | [place] [address] | | | | | for Health and | [phone] | | | | | [facility] 2 | | | | | | [place], [place] | | | | | | [address] | | | | | | [phone] | | | +--------+ + + + [...] | | | | | Amita Hines [place], | | | | | | [place] [address] | | | | | | [phone] | | | | | | | | +--------+---------+ + + + documented as of this encounter Visit Diagnoses Not on filedocumented in this encounter"
--- OUTSIDE RECORDS SUMMARY | ~2019-05-24 | XMS | Encounter Summary ---
Demographics + + + | Address | [address] | | | [place] [address] | + + + | Home Phone [...] Providers + +------+ + | Care Residential Remodeling Subcontractor Name | Role | Phone | + [...] | Prescription | | 2016 | | [place] [address] [address] | [address] | | | | | [address] | Amita Hines [place], | | | | | Mailcode: [place] | [place] [address] | | | | | for Health and | [phone] | | | | | [facility] 2 | | | | | | [place], [place] | | | | | | [address] | | | | | | [phone] | | | +--------+ + + + [...] | | 2019 | Visit | | [address] | | | | | | Amita Hines [place], | | | | | | [place] [address] | | | | | | [phone] | | | | | | | | +--------+---------+ + + + documented as of this encounter Visit Diagnoses Not on filedocumented in this encounter"
--- OUTSIDE RECORDS SUMMARY | ~2019-05-24 | XMS | Encounter Summary ---
Demographics + + + | Address | [address] | | | [place] [address] | + + + | Home Phone [...] Team Providers + +------+ + | Care Magazine Keeper Name | Role | Phone | + +------+ + | Kristian Anderson DO | PCP | | + +------+ + Encounter Details +--------+ + + + + | Date | Type | Department | Care Team | Description | +--------+ + + + + | 07/19/ | Tavern Operator | Digestive Health | Trinidad Garcia, | | | 2016 | | Center at [facility] [address]85 | AGACNP [address] | | | | | [address] | [place] [place] | | | | | Mailcode: [place] | [address] | | | | | for Health and | | | | | | [facility] 2 | | | | | | [facility] [place] | | | | | | [address] | | | | | | [phone] | | | +--------+ + + + [...] | | | | | Amita Hines [place], | | | | | | [place] [address] | | | | | | [phone] | | | | | | | | +--------+---------+ + + + documented as of this encounter Visit Diagnoses Not on filedocumented in this encounter"
--- OUTSIDE RECORDS SUMMARY | ~2019-05-24 | XMS | Encounter Summary ---
Demographics + + + | Address | [address] | | | [place] [address] | + + + | Home Phone [...] Team Providers + +------+ + | Care Safety Belt Installer Name | Role | Phone | [...] | | | | CT CHEST, | [place], [place] | Mailcode: | | | | | ABDOMEN AND | [address] | [address] [facility] | | | | | PELVIS [address] | Phone: | Hospital | | | | | CONTRAST AR | [phone] | [place], [place] | | | | | CAT SCAN OF | Fax: | [address] | | | | | CHEST | [phone] | Phone: | | | | | CONTRAST AR | | [phone] | | | | | CT | | Fax: | | | | | ABDOMEN&PELV | | [phone] | | | | | IS | [...] | | | | CT CHEST, | [place], [place] | Mailcode: | | | | | ABDOMEN AND | [address] | [address] [facility] | | | | | PELVIS W IV | Phone: | Hospital | | | | | CONTRAST AR | [phone] | [place], [place] | | | | | CAT SCAN OF | Fax: | [address] | | | | | CHEST | [phone] | Phone: | | | | | CONTRAST AR | | [phone] | | | | | CT | | Fax: | | | | | ABDOMEN&PELV | | [phone] | | | | | IS | [...] | [address] | Amita Hines [place], | | | | | Amita Hines Mailcode: | [place] [address] | | | | | [address] [facility] | [phone] | | | | | [place], [place] | | | | | | [address] | | | | | | [phone] | | | +--------+ + + + [...] | | | | | Amita Hines [place], | | | | | | [place] [address] | | | | | | [phone] | | | | | | | [...]
--- OUTSIDE RECORDS SUMMARY | ~2019-05-24 | XMS | Encounter Summary ---
Demographics + + + | Address | [address] | | | [place] [address] | + + + | Home Phone [...] Team Providers + +------+ + | Care Coffee Grinder Name | Role | Phone | + [...] | | 2017 | | Center at [facility] [address]85 | [address] | | | | | [address] | Amita Hines [place], | | | | | Mailcode: Center | [place] [address] | | | | | for Health and | [phone] | | | | | [facility] 2 | | | | | | [place], [place] | | | | | | [address] | | | | | | [phone] | | | +--------+ + + + [...] | | | | | Amita Hines [place], | | | | | | [place] [address] | | | | | | [phone] | | | | | | | | +--------+---------+ + + + documented as of this encounter Visit Diagnoses Not on filedocumented in this encounter"
--- OUTSIDE RECORDS SUMMARY | ~2019-05-24 | XMS | Encounter Summary ---
Demographics + + + | Address | [address] | | | [place] [address] | + + + | Home Phone [...] Team Providers + +------+ + | Care Storage Facility Rental Clerk Name | Role | Phone [...] | | | | [facility] | [place], [place] | | | | | [place] [address] | [address] | | | | | [place], [place] | | | | | | [address] | | | | | | [phone] | | | +--------+ + + + [...] | | 18 | | | | 406804, Skin prep: | | | | | | | 3M 3344 (30/mo), Adh | | | | | | | Rem HO 7760 | | | | | | | (1box/mo), Rings: HO | | | | | | | 8805 (10/mo), | | | | | | | Deodorant: [place] [address]753 | | | | | | | (60/mo), Pwdr: CT | | | | | | | 616047 (1oz/mo), | | | | | | | Belt: Lrg (2/mo) | | | | | | | and Irrigation [place] | | | | | | | 647771, [place] | | | | | | | 816818 | | | | | + + [...] | | | | | Amita Hines [place], | | | | | | [place] [address] | | | | | | [phone] | | | | | | | | +--------+---------+ + + + documented as of this encounter Visit Diagnoses Not on filedocumented in this encounter"
--- OUTSIDE RECORDS SUMMARY | ~2019-05-24 | XMS | Encounter Summary ---
Demographics + + + | Address | [address] | | | [place] [address] | + + + | Home Phone [...] Providers + +------+ + | Care Chief I Dispatcher Name | Role | Phone | [...] | | 2018 | | Center at [facility] [address]85 | [address] | and Ostomy Nurse) | | | | [address] | Amita Hines [place], | | | | | Mailcode: [place] | [place] [address] | | | | | for Health and | [phone] | | | | | [facility] 2 | | | | | | [place], [place] | | | | | | [address] | | | | | | [phone] | | | +--------+ + + + [...] | | | | | Amita Hines [place], | | | | | | [place] [address] | | | | | | [phone] | | | | | | | | +--------+---------+ + + + documented as of this encounter Visit Diagnoses Not on filedocumented in this encounter"
--- OUTSIDE RECORDS SUMMARY | ~2019-05-24 | XMS | Encounter Summary ---
Demographics + + + | Address | [address] | | | [place] [address] | + + + | Home Phone [...] Team Providers + +------+ + | Care Carton Maker Name | Role | Phone | [...] | | 2018 | | Center at [facility] [address]85 | [address] | Review | | | | [address] | Amita Hines [place], | | | | | Mailcode: [place] | [place] [address] | | | | | for Health and | [phone] | | | | | [facility] 2 | | | | | | [place], [place] | | | | | | [address] | | | | | | [phone] | | | +--------+ + + + [...] | | | | | Amita Hines [place], | | | | | | [place] [address] | | | | | | [phone] | | | | | | | | +--------+---------+ + + + documented as of this encounter Visit Diagnoses Not on filedocumented in this encounter"
--- OUTSIDE RECORDS SUMMARY | ~2019-05-24 | XMS | Encounter Summary ---
Demographics + + + | Address | [address] | | | [place] [address] | + + + | Home Phone [...] Team Providers + +------+ + | Care Md Urologist Name | Role | Phone | + +------+ + | Kristian Anderson DO | PCP | | + +------+ + Encounter Details +--------+ + + + + | Date | Type | Department | Care Team | Description | +--------+ + + + + | 05/17/ | Document-Sc | Health Information | Unknown . | | | 2017 | anned | Services [address] | | | | | | [address] | | | | | | Mailcode: OP17A | | | | | | [facility] | | | | | | [place], [place] | | | | | | [address] | | | | | | [phone] | | | +--------+ + + + [...] | | | | | Amita Hines [place], | | | | | | [place] [address] | | | | | | [phone] | | | | | | | [...]
--- OUTSIDE RECORDS SUMMARY | ~2019-05-24 | XMS | Encounter Summary ---
Demographics + + + | Address | [address] | | | [place] [address] | + + + | Home Phone [...] Team Providers + +------+ + | Care Radio Division Lieutenant Name | Role | Phone | + +------+ + | Kristian Anderson DO | PCP | | + +------+ + Encounter Details +--------+ + + + + | Date | Type | Department | Care Team | Description | +--------+ + + + + | 04/19/ | Procedure | Diagnostic Imaging | | | | 2016 | Pass | Services at [facility] | | | | | | [address] | | | | | | Amita Hines Mailcode: | | | | | | [address] [facility] | | | | | | [place], [place] | | | | | | [address] | | | | | | [phone] | | | +--------+ + + + [...] | | | | | Amita Hines [place], | | | | | | [place] [address] | | | | | | [phone] | | | | | | | | +--------+---------+ + + + documented as of this encounter Visit Diagnoses Not on filedocumented in this encounter"
--- OUTSIDE RECORDS SUMMARY | ~2019-05-24 | XMS | Encounter Summary ---
Demographics + + + | Address | [address] | | | [place] [address] | + + + | Home Phone [...] Providers + +------+ + | Care Test Design Engineer Name | Role | Phone | + +------+ + | Kristian Anderson DO | PCP | | + +------+ + Encounter Details +--------+ + + + + | Date | Type | Department | Care Team | Description | +--------+ + + + + | 06/28/ | Telephone | Digestive Health | Ailyn Wolff MD | | | 2018 | | [place] at [facility] [address]85 | [address] | | | | | [address] | Amita Hines [place], | | | | | Mailcode: [place] | [place] [address] | | | | | for Health and | [phone] | | | | | [place] [address] | | | | | | [place], [place] | | | | | | [address] | | | | | | [phone] | | | +--------+ + + + [...] | | | | | Amita Hines [facility] | | | | | | [place] [address] | | | | | | [phone] | | | | | | | | +--------+---------+ + + + documented as of this encounter Visit Diagnoses Not on filedocumented in this encounter"
--- OUTSIDE RECORDS SUMMARY | ~2019-05-24 | XMS | Encounter Summary ---
Demographics + + + | Address | [address] | | | [place] [address] | + + + | Home Phone [...] Team Providers + +------+ + | Care Sql Server Architect Name | Role | Phone | [...] Notes | | 2016 | | at [facility] [address] | | (Lodging) | | | | [address] Amita Hines | | | | | | [place] | | | | | | [place], [place] | | | | | | [address] | | | | | | [phone] | | | +--------+ + + + [...] | | | | | Amita Hines [place], | | | | | | [place] [address] | | | | | | [phone] | | | | | | | | +--------+---------+ + + + documented as of this encounter Visit Diagnoses Not on filedocumented in this encounter"
--- OUTSIDE RECORDS SUMMARY | ~2019-05-24 | XMS | Encounter Summary ---
Demographics + + + | Address | [address] | | | [place] [address] | + + + | Home Phone [...] Team Providers + +------+ + | Care Film Processing Supervisor Name | Role | Phone | [...] | | | | [facility] | [place], [place] | | | | | [address] [address] | [address] | | | | | [place], [place] | | | | | | [address] | | | | | | [phone] | | | +--------+ + + + [...] | | | | | Amita Hines [place], | | | | | | [place] [address] | | | | | | [phone] | | | | | | | | +--------+---------+ + + + documented as of this encounter Visit Diagnoses Not on filedocumented in this encounter"
--- OUTSIDE RECORDS SUMMARY | ~2019-05-24 | XMS | Encounter Summary ---
Demographics + + + | Address | [address] | | | [place] [address] | + + + | Home Phone [...] Team Providers + +------+ + | Care Flight Controls Engineer Name | Role | Phone | [...] | | | | CT CHEST, | [place], [place] | Mailcode: | | | | | ABDOMEN AND | [address] | [address] [facility] | | | | | PELVIS [address] | Phone: | Hospital | | | | | CONTRAST [place] | [phone] | [place], [place] | | | | | CAT SCAN OF | Fax: | [address] | | | | | CHEST | [phone] | Phone: | | | | | CONTRAST [place] | | [phone] | | | | | CT | | Fax: | | | | | ABDOMEN&PELV | | [phone] | | | | | IS | [...] | | | | CT CHEST, | [place], [place] | Mailcode: | | | | | ABDOMEN AND | [address] | [address] [facility] | | | | | PELVIS W IV | Phone: | Hospital | | | | | [facility] | [phone] | [place], [place] | | | | | CAT SCAN OF | Fax: | [phone] | | | | | CHEST | [phone] | Phone: | | | | | [facility] [place] | | [phone] | | | | | CT | | Fax: | | | | | ABDOMEN&PELV | | [phone] | | | | | IS | [...] | 2017 | Encounter | Services at [facility] [[email or web address] | [address] | | | | | [address] | Amita Hines [place], | | | | | Amita Hines Mailcode: | [place] [address] | | | | | [address] [facility] | [phone] | | | | | [place], [place] | | | | | | [address] | | | | | | [phone] | | | +--------+ + + + [...] | | | | | Amita Hines [place], | | | | | | [place] [address] | | | | | | [phone] | | | | | | | [...]
--- OUTSIDE RECORDS SUMMARY | ~2019-05-24 | XMS | Encounter Summary ---
Demographics + + + | Address | [address] | | | [place] [address] | + + + | Home Phone [...] Providers + +------+ + | Care Registered Dental Assistant Rda Name | Role | Phone | + +------+ + | Kristian Anderson DO | PCP | | + +------+ + Encounter Details +--------+ + + + + | Date | Type | Department | Care Team | Description | +--------+ + + + + | 05/05/ | Telephone | Digestive Health | Ailyn Wolff MD | | | 2017 | | [place] at [facility] [address] | [address] | | | | | [address] | Amita Hines [place], | | | | | Mailcode: [place] | [place] [address] | | | | | for Health and | [phone] | | | | | [facility] 2 | | | | | | [place], [place] | | | | | | [address] | | | | | | [phone] | | | +--------+ + + + [...] | | | | | [address] [place], | | | | | | [place] [address] | | | | | | [phone] | | | | | | | | +--------+---------+ + + + documented as of this encounter Visit Diagnoses Not on filedocumented in this encounter"
--- OUTSIDE RECORDS SUMMARY | ~2019-05-24 | XMS | Encounter Summary ---
Demographics + + + | Address | [address] | | | [place] [address] | + + + | Home Phone [...] Team Providers + +------+ + | Care Pick Up And Delivery Driver Name | Role | Phone | [...] Center at [facility] [address] | [address] | - Disregard | | | | [address] | [address] [place], | | | | | Mailcode: [place] | [place] [address] | | | | | for Health and | [phone] | | | | | [facility] 2 | | | | | | [place], [place] | | | | | | [address] | | | | | | [phone] | | | +--------+ + + + [...] | | | | | [place]a [place], | | | | | | [place] [address] | | | | | | [phone] | | | | | | | | +--------+---------+ + + + documented as of this encounter Visit Diagnoses Not on filedocumented in this encounter"
--- OUTSIDE RECORDS SUMMARY | ~2019-05-24 | XMS | Encounter Summary ---
Demographics + + + | Address | [address] | | | [place] [address] | + + + | Home Phone [...] Team Providers + +------+ + | Care Per Diem Rn Name | Role | Phone | [...] | | | | Leyla Dept | [address] | | | | | | | [address] | | | | | | | [place]zy [place] | | | | | | | [place], [place] | | | | | | | [address] | | | | | | | Phone: | | | | | | | [phone] | | | | | | | Fax: | | | | | | | [phone] | +--------+--------+ + + + + Encounter Details +--------+---------+ + + + | Date | Type | Department | Care Team | Description | +--------+---------+ + + + | 02/20/ | Office | Digestive Health | Ailyn Wolff MD | CA of rectum (HCC) | | 2018 | Visit | [place] at [facility] [address] | [address] | (Primary Dx) | | | | [address] | [place], | | | | | Mailcode: [place] | [place] [address] | | | | | for Health and | [phone] | | | | | [facility] 2 | | | | | | [place], [place] | | | | | | [address] | | | | | | [phone] | | | +--------+---------+ + + + [...] rectal bleeding on 07/19/16 went to the [facility] ED CT abdomen/pelvis with [...] cm from anal verge presented at the [facility] Multidisciplinary GI Oncology Conference on 10/07/16 [...] to Mendoza pouch staple line presented at [facility] Multidisciplinary GI Oncology Conference on 03/10/17. 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, and placement of nathony drain into former rectocutaneous fistula (06/30/17) pathology: [...] resection with primary anastomosis, placement of a 19-Malay Albert drain through the right lower quadrant [...] Return/Re-evaluation patient, I spent 12 minutes of wikm-mf-myyi time, of which m ore than half [...] | | | | | [place] [address], | | | | | | [place] [address] | | | | | | [phone] | | | | | | | [...] | + + + + + | [facility] | [address] | [place] [address] | | | SERVICES, CORE | [address] | | | + + + + + documented in this encounter Visit Diagnoses + + | Diagnosis | + + | 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
--- OUTSIDE RECORDS SUMMARY | ~2019-05-24 | XMS | Encounter Summary ---
Demographics + + + | Address | [address] | | | [place] [address] | + + + | Home Phone | | + + + | Preferred Language | Unknown | + + + | Marital Status | | + + + | Sikhism Affiliation | Unknown | + + + | Race | Unknown | + + + | Ethnic Group | Unknown | + + + Author + + + | Author | [facility] | | | and [place] | + + + | Organization | [facility] | | | and [place] | + + + | Address | Unknown | + + + | Phone | Unavailable | + + + Support + + + + + | Name | Relationship | Address | Phone | + + + + + | Lamar Phillips | ECON | [place] [address] | | + + + + + Care Team Providers + +------+ + | Care Hl7 Developer Name | Role | Phone | [...] | 04/12/ | Telephone | [facility] | Mychal Andre, | Medication Orders | | 2018 | | [facility] [place] | [address] | | | | | [address] [facility], | [place]ON [address] | | | | | [address] [place] | [place] | | | | | [place] [address] | [address] | | | | | [phone] | | | +--------+ + + + [...]
--- OUTSIDE RECORDS SUMMARY | ~2019-05-24 | XMS | Encounter Summary ---
Demographics + + + | Address | [address] | | | [place] [address] | + + + | Home Phone [...] Team Providers + +------+ + | Care Art Therapy Specialist Name | Role | Phone | [...] | | | | REQUEST TO | [place], [place] | [place], [place] | | | | | SURGERY | [address] | [address] | | | | | ANESTHETIC ASSISTANT | Phone: | Phone: | | | | | [place] | [phone] | [phone] | | | | | LAP,SURG,COL | Fax: | Fax: | | | | | ECTOMY,W/TASNEEM | [phone] | [phone] | | | | | ST [place] | | | | | | | LAP,SURG,COL | | | | | | | ECTOMY,W/TASNEEM | | | | | | | ST,W/COLOSTO | | | | | | | MY NM | | | | | | | LAP,MBL | | | | | | | SPLNC FL NM | | | | | | | | | | | | | | LAP,SURG,COL | | | | | | | ECTOMY,W/REM | | | | | | | VL TERM | | | | | | | ILEUM NM | | | | | | | LAP,SURG,COL | | | | | | | ECTOMY,W/END | | | | | | | COLOST & | | | | | | | CLOSUR NM | | | | | | | LAP,ILEO/JEJ | | | | | | | YESIKA-STOMY | | | | | | | NM PART | | | | | | | REMOVAL | | | | | | | COLON W | | | | | | | COLOPROCTOST | | | | | | | LORI NM PART | | | | | | | REMOVAL | | | | | | | COLON W | | | | | | | COLOPROC,COL | | | | | | | OST NM | | | | | | | MOBILIZE | | | | | | | SPLENIC FLEX | | | | | | | NM PART | | | | | | | REMOVAL | | | | | | | COLON W END | | | | | | | COLOSTOMY | | | | | | | NM PART | | | | | | | REMOVAL | | | | | | | COLON W | | | | | | | OSTOMY/MUCOF | | | | | | | IST NM | | | | | | | ILEOSTOMY/JE | | | | | | | JUNOSTOMY,NO | | | | | | | NTUBE NM | | | | | | | REMOVE | | | | | | | VAGINA WALL, | | | | | | | PARTIAL NM | | | | | | | REMOVE | | | | | | | VAGINA | | | | | | | TISSUE/PARTI | | | | | | | AL NM | | | | | | | VAGINECTOMY | | | | | | | PARTIAL | | | | | | | W/NODES NM | | | | | | | PROCTECTOMY, | | | | | | | AP | | | | | | | RESECT+OSTOM | | | | | | | Y NM | | | | | | | PROCTECTOMY, | | | | | | | PARTIAL NM | | | | | | | PROCTECTOMY, | | | | | | | AP | | | | | | | RESEC,PULL-T | | | | | | | HRU NM | | | | | | | PROCTECTOMY, | | | | | | | PART,ILEAL | | | | | | | RESERV NM | | | | | | | PROCTECTOMY, | | | | | | | A-P PULLTHRU | | | | | | | W/RESERVOIR | | | | | | | NM | | | | | | | PROCTECTOMY, | | | | | | | COMPLT,PULL- | | | | | | | THRU,ANAST | | | | | | | NM | | | | | | | [...] | Malignant | Marty Toledo MD | [address] | | | | | neoplasm of | [place] | [address] | | | | | rectum | SURGICAL | [place] | | | | | | [facility] | [place], [place] | | | | | | [address] | [address] | | | | | | AVE | Phone: | | | | | | [place], | [phone] | | | | | | [place] [address] | Fax: | | | | | | Phone: | [phone] | | | | | | [phone] | | | | | | | Fax: | | | | | | | [phone] | | +--------+--------+ + + + + Encounter Details +--------+---------+ + + + | Date | Type | Department | Care Team | Description | +--------+---------+ + + + | 06/13/ | Office | Digestive Health | Ailyn Wolff MD | Rectal cancer (HCC) | | 2017 | Visit | Center at [facility] [address] | [address] | (Primary Dx); CA of | | | | [address] | [place], | rectum (HCC) | | | | Mailcode: [place] | [place] [address] | | | | | [facility] and | [phone] | | | | | [address] [place] [address] | | | | | | [place], [place] | | | | | | [address] | | | | | | [phone] | | | +--------+---------+ + + + [...] - 06/13/2017 3:40 PM PSTPATIENT SURGERY INFORMATION [facility] General Surgery Office Toll-free: , request [facility] Surgery Date: 06/30/2017 Procedure: Low anterior resection, possible abdominoperineal resection. Surgeon Name: Dr. Ailyn Wolff MD DIRECTIONS FOR SURGERY DIET You should have clear liquids only for the entire day prior to surgery, no solid food. Kailee r liquids include anything you can see through, like water, fernando zack, lemon-quartz valley soft drin ks, apple juice, tea, Gatorade/sports [...] have questions please contact the clinic at [phone], if it is after clinic h ours please call the crepe machine operator at [phone] and ask to speak to the Green Surgery Resident pollution control chemist. CAUTION! Please call the clinic if you [...] number may refer you to the hospital crepe machine operator ); please ask to speak to the general surgery resident pollution control chemist for Dr Javed. MEDICATIONS You may take [...] we recommend they be stopped before surg claued. Ephedra (ma lanza) may increase the risk [...] e. Smoking is not allowed on the [facility] campus. If you are a smoker, [...] anyone by 3:00 PM please call for aceaq-kz-migk. PARKING Parking for patients and visitors is available in the [facility] Parking structure located across from the emergency department. Patient parking is available on level 1 and 3. Metere d parking is available on the top level. CHECKING IN FOR SURGERY Go in the main entrance and check in at the Admitting Desk 9th floor of [facility] TRANSPORTATION You will require transportation home on the day of discharge. Pain medications and physical activity restrictions may limit your ability to drive safely. CANCELLING YOUR PROCEDURE Please notify the general surgery office at [phone] as soon as possible should you nee [...] prior to your surgery. PRODUCTS CONTAINING ASPIRIN Katelyn-Durham, Anacin, Anexsia with Codeine, Andynos, Aspirin, Aspirin suppositories, Ascrip tin, Aspergum, Axotal, B-A-C, Baby Aspirin, Tony, BC Powder, Bexophene, Buffaprin, Bufferin , Buffinol, Cama-Arthritis Strength, Congespirin, [place], Coricidin, Damason, Darvon, Dristan, Annetta-Gesic, Digel, Dolprin #3 Tablets, Donatab, Doxaphene, Duragesic, Easprin, Ecotrin, Emag rin Forte, Emiprin, Emprazil, Equagesic, Equazine M, Excedrin, Fiogesic, Fiorgen PH, Fiorice t, Fiorinal, 4-Way Cold Tablet Gemnisyn, Indocin, Liquprin, Lortab ASA, Magnaprin, Marnal, Meprobamate, Midol, Momentum, N orgesic, [place], Orphengesic, Pabalate, P-A-C, Percodan, Presalin, Robaxasil, Roxiprin, Brian eto, Salocol SK-65 Compound, Sine-Aid, Sine-Off,, Camilla, Supac, Talwin Compound, Trigesic, Tolectin , Traiminicin, Vanquish, ZORprin, Zomax PRODUCTS CONTAINING IBUPROFEN Advil, Aleve, Haltran, Medipren, Midol, Motrin, Naproxyn, Nuprin, Rufen OTHER PRODUCTS WHICH MAY PROMOTE BLEEDING Vitamin E, Gingko Biloba, Marine Fatty Acids, [place]-3 Fish Oil Supplements Registration Process for all [...] (10/05/16) no liver metastases rigid proctoscopy by ga (10/05/16) 6 cm from anal verge presented at the [facility] Multidisciplinary GI Oncology Conference [...] to Mendoza pouch staple line presented at [facility] Multidisciplinary GI Oncology Conference [...] MRI (OSH, 05/17/17) close to pelvic sidewall [facility] Multidisciplinary GI Oncology Conference [...] infection , pneumonia, UTI, recurrence, DVT, PE, [place], stroke, and were discussed, she wished to proceed with the above plan. Chief Complaint: 55 y.o. female with intermittent rectal bleeding since ~2013 and tailbone pain since 07/19/17. History of Present Illness: On 10/05/16, she told me: "intermittent rectal bleeding since ~2013 She had rectal urgency and a lot of rectal bleeding on 07/19/16. She went to the [facility] ED. CT abdomen/pelvis with IV [...] rectal cancer. [facility] CT of the chest/abdomen/pelvis [...] cm from anal verge presented at the [facility] Multidisciplinary GI Oncology Conference [...] fractions, 01/10/17-02/17/17. Dr. Alfaro, Radiation Oncology at [facility] in [place]. MRI pelvis (03/02/17) tumor response but circumferential [...] for the LLQ tenderness/malodorous drainage." presented at [facility] Multidisciplinary GI Oncology Conference [...] sidewall I again discussed her at the [facility] Multidisciplinary GI Oncology Conference [...] Stool in her drain. 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 20 minute document review Noelle Clifford RN - 017 3:40 PM PSTNPO after midnight, Miralax/Gatorade bowel prep with antibiotics, prevention of constipation and pain control after surgery, responsible ride home upon discharge from [facility]. Discussed pre-operative plan such as experimental mechanic spacecraft calling the day before surgery to gi [...] starting with clears, need for PMC appt (FURNITURE PACKER), post-op appt (3 wk). Pt den ies further questions. I encouraged the pt to call with any questions, concerns, or new symp toms at [phone]. documented in this enco unter Plan of [...] | | | | | | [place] [address] | | | | | | [phone] | | | | | | | [...] HOSPITAL LABORATORY | [address] | [place] [address] | | | SERVICES, CORE | PARK [...] | | | LABORATORY | | | ARMENIAN | | | SERVICES, | | | [...] CHAPIN JASKARAN | [address] | [place] [address] | | | SERVICES, CORE | [address] [...]
--- OUTSIDE RECORDS SUMMARY | ~2019-05-24 | XMS | Encounter Summary ---
Demographics + + + | Address | [address] | | | [place] [address] | + + + | Home Phone [...] Team Providers + +------+ + | Care Night Supervisor Name | Role | Phone | [...] 2017 | | Center at [facility] [address] | [address] | Received (Images | | | | [address] | [facility], | requested 10/24/16 | | | | Mailcode: [place] | [place] [address] | EUA) | | | | for Health and | [phone] | | | | | [facility] 2 | | | | | | [place], [place] | | | | | | [address] | | | | | | [phone] | | | +--------+ + + + [...] | | | | | Amita H[place], | | | | | | [place] [address] | | | | | | [phone] | | | | | | | | +--------+---------+ + + + documented as of this encounter Visit Diagnoses Not on filedocumented in this encounter"
--- OUTSIDE RECORDS SUMMARY | ~2019-05-24 | XMS | Encounter Summary ---
Demographics + + + | Address | [address] | | | [place] [address] | + + + | Home Phone [...] Team Providers + +------+ + | Care Merchandise Appraiser Name | Role | Phone | [...] | | | | CT CHEST, | [place], [place] | Mailcode: | | | | | ABDOMEN AND | [address] | [address] [facility] | | | | | PELVIS W IV | Phone: | Hospital | | | | | CONTRAST ME | [phone] | [place], [place] | | | | | CAT SCAN OF | Fax: | [address] | | | | | CHEST | [phone] | Phone: | | | | | CONTRAST ME | | [phone] | | | | | CT | | Fax: | | | | | ABDOMEN&PELV | | [phone] | | | | | IS | [...] | | | | MR RECTAL | [facility] [place] | Mailcode: | | | | | W/WO [place] | [address] | [address] | | | | | MRI, PELVIS, | Phone: | [place] | | | | | COMBO | [phone] | Research | | | | | | Fax: | Center | | | | | | [phone] | [place], [place] | | | | | | | [address] | | | | | | | Phone: | | | | | | | [phone] | | | | | | | Fax: | | | | | | | [phone] | +--------+--------+ + + + + Reason [...] | 2017 | | Center at [facility] [address] | [address] | rectal protocol and | | | | [address] | [address] [place], | CT c/a/p after 6 | | | | Mailcode: [employer] | [place] [address] | cycles of chemo) | | | | for Health and | [phone] | | | | | [facility] 2 | | | | | | [place], [place] | | | | | | [address] | | | | | | [phone] | | | +--------+ + + + [...] | | | | | | [place] [address] | | | | | | [phone] | | | | | | | [...]
--- OUTSIDE RECORDS SUMMARY | ~2019-05-24 | XMS | Encounter Summary ---
Demographics + + + | Address | [address] | | | [place] [address] | + + + | Home Phone [...] Team Providers + +------+ + | Care Legal Research Analyst Name | Role | Phone [...] | | | | CT CHEST, | [place], [place] | Mailcode: | | | | | ABDOMEN AND | [address] | [address] [facility] | | | | | PELVIS W IV | Phone: | Hospital | | | | | CONTRAST IN | [phone] | [place], [place] | | | | | CAT SCAN OF | Fax: | [address] | | | | | CHEST | [phone] | Phone: | | | | | CONTRAST IN | | [phone] | | | | | CT | | Fax: | | | | | ABDOMEN&PELV | | [phone] | | | | | IS | | | | | | | W/CONTRAST | | | +--------+--------+ + + + + Encounter Details +--------+ + + + + | Date | Type | Department | Care Team | Description | +--------+ + + + + | 04/19/ | Monogram Technician | Digestive Health | Ailyn Wolff MD | Colorectal cancer | | 2017 | | [place] at [facility] [address] | [address] | (HCC) (Primary Dx) | | | | [address] | [address], | | | | | Mailcode: [place] | [place] [address] | | | | | for Health and | [phone] | | | | | [facility] 2 | | | | | | [place], [place] | | | | | | [address] | | | | | | [phone] | | | +--------+ + + + [...] | | | | | [place], | | | | | | [place] [address] | | | | | | [phone] | | | | | | | [...]
--- OUTSIDE RECORDS SUMMARY | ~2019-05-24 | XMS | Encounter Summary ---
Demographics + + + | Address | [address] | | | [place] [address] | + + + | Home Phone [...] Team Providers + +------+ + | Care Advertising Sales Representative Name | Role | Phone [...] | Encounter | Center at [facility] [address] | [address] | | | | | [address] | [place]mita [address], | | | | | Mailcode: [place] | [place] [address] | | | | | for Health and | [phone] | | | | | [facility], [facility] 2 | | | | | | [place], [place] | | | | | | [address] | | | | | | [phone] | | | +--------+ + + + [...] | | | | | [place], | | | | | | [place] [address] | | | | | | [phone] | | | | | | | | +--------+---------+ + + + documented as of this encounter Visit Diagnoses Not on filedocumented in this encounter"
--- OUTSIDE RECORDS SUMMARY | ~2019-05-24 | XMS | Encounter Summary ---
Demographics + + + | Address | [address] | | | [place] [address] | + + + | Home Phone [...] Team Providers + +------+ + | Care Cloth Mercerizing Supervisor Name | Role | Phone | [...] | | 2017 | | Center at [facility] [address] | [address] | Review | | | | [address] | Amita Hines [place], | | | | | Mailcode: [place] | [place] [address] | | | | | for Health and | [phone] | | | | | [facility] 2 | | | | | | [place], [place] | | | | | | [address] | | | | | | [phone] | | | +--------+ + + + [...] | | | | | | [place] [address] | | | | | | [phone] | | | | | | | | +--------+---------+ + + + documented as of this encounter Visit Diagnoses Not on filedocumented in this encounter"
--- OUTSIDE RECORDS SUMMARY | ~2019-05-24 | XMS | Encounter Summary ---
Demographics + + + | Address | [address] | | | [place] [address] | + + + | Home Phone [...] Phone | + + +---------+ + | Darruis Quintana | ECON | Unknown | | + + +---------+ + Care Team Providers + +------+ + | Care It Software Developer Name | Role | Phone [...] | [address] | [address] [place], | | | | | Mailcode: [place] | [place] [address] | | | | | for Health and | [phone] | | | | | [facility], [facility] 2 | | | | | | [place], [place] | | | | | | [address] | | | | | | [phone] | | | +--------+---------+ + + + [...] rectal bleeding on 07/19/16 went to the [facility] ED CT abdomen/pelvis with IV [...] anal verge presented at the [facility] Multidisciplinary GI Oncology Conference on 10/07/16 diagnosis: [...] pouch staple line presented at [facility] Multidisciplinary GI Oncology Conference on 03/10/17. Given [...] 05/17/17) close to pelvic sidewall [facility] Multidisciplinary GI Oncology Conference (06/02/17) Recommendations with [...] with primary anast omosis, placement of a 19-Icelandic Albert drain through the right lower quadrant [...] wit h primary anastomosis, placement of a 19-Icelandic Albert drain through the right lower quadrant [...] Return/Re-evaluation patient, I spent 19 minutes of wmsk-jp-wttc time, of which m ore than half [...] | | | | | [place], | | | | | | [place] [address] | | | | | | [phone] | | | | | | | | +--------+---------+ + + + documented as of this encounter Visit Diagnoses + + | Diagnosis | + + | 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
--- OUTSIDE RECORDS SUMMARY | ~2019-05-24 | XMS | Encounter Summary ---
Demographics + + + | Address | [address] | | | [place] [address] | + + + | Home Phone [...] Team Providers + +------+ + | Care Java Tech Name | Role | Phone | [...] | Prescription | | 2016 | | [place] [address] [address] | [address] | | | | | [address] | Amita Hines [place], | | | | | Mailcode: [place] | [place] [address] | | | | | for Health and | [phone] | | | | | [facility] 2 | | | | | | [place], [place] | | | | | | [address] | | | | | | [phone] | | | +--------+ + + + [...] | | 2019 | Visit | | [address] | | | | | | [place], | | | | | | [place] [address] | | | | | | [phone] | | | | | | | | +--------+---------+ + + + documented as of this encounter Visit Diagnoses Not on filedocumented in this encounter"
--- OUTSIDE RECORDS SUMMARY | ~2019-05-24 | XMS | Encounter Summary ---
Demographics + + + | Address | [address] | | | [place] [address] | + + + | Home Phone [...] Team Providers + +------+ + | Care Cnc Mill And Lathe Operator Name | Role | Phone | [...] | | | | Leyla Dept | [address] | | | | | | | [address] | | | | | | | Suzy Hines | | | | | | | [place], [place] | | | | | | | [address] | | | | | | | Phone: | | | | | | | [phone] | | | | | | | Fax: | | | | | | | [phone] | +--------+--------+ + + + + Encounter Details +--------+---------+ + + + | Date | Type | Department | Care Team | Description | +--------+---------+ + + + | 08/28/ | Office | Digestive Health | Ailyn Wolff MD | CA of rectum (HCC) | | 2019 | Visit | [place] [facility] [address] | [address] | (Primary Dx) | | | | [address] | [place], | | | | | Mailcode: [place] | [place] [address] | | | | | for Health and | [phone] | | | | | Healing, Building 2 | | | | | | [place], [place] | | | | | | [address] | | | | | | [phone] | | | +--------+---------+ + + + [...] rectal bleeding on 07/19/16 went to the [facility] ED CT abdomen/pelvis with IV contrast [...] resection with Primary anastomosis, placement of a 19-Cameroonian Albert drain [...] family h istory, and social history in [facility]. Objective: BP 148/91 | Pulse 82 [...] Return/Re-evaluation patient, I spent 13 minutes of dugl-zi-ziby time, of which m ore than half [...] | | | | | Su[place], | | | | | | [place] [address] | | | | | | [phone] | | | | | | | [...] + + + + + | [facility] | [address] | [place] [address] | | | SERVICES, CORE | [address] | | | + + + + + documented in this encounter Visit Diagnoses + + | Diagnosis | + + | 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
--- OUTSIDE RECORDS SUMMARY | ~2019-05-24 | XMS | Encounter Summary ---
Demographics + + + | Address | [address] | | | [place] [address] | + + + | Home Phone [...] Team Providers + +------+ + | Care Archaeology Professor Name | Role | Phone | [...] | | 2019 | | Center at [facility] [address] | [address] | Received | | | | [address] | Amita Hines [place], | | | | | Mailcode: [place] | [place] [address] | | | | | for Health and | [phone] | | | | | [facility] 2 | | | | | | [place], [place] | | | | | | [address] | | | | | | [phone] | | | +--------+ + + + [...] | | | | | [place]mita [place], | | | | | | [place] [address] | | | | | | [phone] | | | | | | | | +--------+---------+ + + + documented as of this encounter Visit Diagnoses Not on filedocumented in this encounter"
--- OUTSIDE RECORDS SUMMARY | ~2019-05-24 | XMS | Clinical Summary ---
Demographics + + + | Address | [address] | | | [place] [address] | + + + | Home Phone [...] Author + + + | Author | [facility] | + + + | Organization | [facility] | + + + | Address | Unknown | + + + | Phone | Unavailable | + + + Support + + +---------+ + | Name | Relationship | Address | Phone | + + +---------+ + | Darrius Quintana | ECON | Unknown | | + + +---------+ + Care Team Providers + +------+ + | Care Construction Millwright Name | Role | Phone | + +------+ + | Kristian Anderson DO | PCP | | + +------+ + Source Comments [facility] is fully live on both [facility] and [facility] InPatient.[facility] Allergies + + + + + + [...] | | | e | | | QV-YD-CV). | | | | | | | | ointment | | | | | | + + + +---------+------+------+-------+ | Ostomy Supplies | Colostomy | 1 each | 11 | 11/0 | | Activ | | misc | [id number]: CO | | | 20 | | e | | | [id number], Skin prep: | | | 18 | | | | | 3M 3344 (30/mo), Adh | | | | | | | | Rem HO 7760 | | | | | | | | (1box/mo), Rings: HO | | | | | | | | 8805 (10/mo), | | | | | | | | Deodorant: [place] [address] | | | | | | | | (60/mo), Pwdr: CT | | | | | | | | 252084 (1oz/mo), | | | | | | | | Belt: Lrg (2/mo) | | | | | | | | and Irrigation [place] | | | | | | | | [address], [place]ve [place] | | | | | | | | [id number] | | | | | | + [...] (HCC) | | 2019 | Visit | | | (Primary Dx) [...] Heart Attack | Father | | from [place] at age 52 | + + +------+ [...] | | | | | Suzy H[place], | | | | | | [place] [address] | | | | | | [phone] | | | | | | | | +--------+---------+ + + + + + + + + | Health Maintenance | Due Date | Last Done | Comments | + + + + + | Influenza (Flu) | | 05/19/2018, 05/17/2018, | | | vaccination (#1) | 9 | 08/08/2017 | | + + + + + [...] a power port, | | verified with patient, Lyn | | MILADYS Pérez | + + [...] [facility] | [address] | [place] [address] | | | CAR TELLO | [address] | | | + [...] | MEDICA | xxxxxxxxxxx | 12/24/19 | [phone] | [address] | Medica | | | RE A & | | 19-Pre | 1 | [address] | re | | | B | | sent | | [place] | | | | | | | | [address] | | + +--------+ +--------+ + +--------+ [...] | [birth year] | | [address] | | | al/Fam | | 1961 | [phone] | [address] [place] | | | guerda | | | 8 (Home) | [address] | + +--------+ +--------+ + + Advance [...]
--- OUTSIDE RECORDS SUMMARY | ~2019-05-24 | XMS | Encounter Summary ---
Demographics + + + | Address | [address] | | | [place] [address] | + + + | Home Phone [...] Team Providers + +------+ + | Care Group Managing Director Name | Role | Phone | [...] | 2019 | Visit | Center at [facility] [address] | [address] | (Primary Dx) | | | | [address] | Amita Hines [place], | | | | | Mailcode: [place] | [place] [address] | | | | | for Health and | [phone] | | | | | [facility] [place], [facility] 2 | | | | | | [place], [place] | | | | | | [address] | | | | | | [phone] | | | +--------+---------+ + + + [...] this encounter Patient Instructions Patient Instructions Ailyn Wloff MD - 03/12/2019 9:20 AM PDTPlan: CEA [...] rectal bleeding on 07/19/16 went to the [facility] ED CT abdomen/pelvis with IV [...] cm from anal verge presented at the [facility] Multidisciplinary GI Oncology Conference on 10/07/16 [...] to Mendoza pouch staple line presented at [facility] Conference on 03/10/17. [...] MRI ([facility], 05/17/17) close to pelvic sidewall [facility] Multidisciplinary [facility]cology Conference (06/02/17) Recommendations [...] Took a narcotic pain pill a w [place] ago. Good appetite. Tolerating her diet. Intermittent [...] Return/Re-evaluation patient, I spent 10 minutes of foqi-dg-khmv time, of which m ore than half [...] | | | | | [place]mit[place], | | | | | | [place] [address] | | | | | | [phone] | | | | | | | [...] | + + + + + | [facility] | [address] | [place] [address] | | | SERVICES, CORE | [address] | | | + + + + + documented in this encounter Visit Diagnoses + + | Diagnosis | + + | 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
--- OUTSIDE RECORDS SUMMARY | ~2019-05-24 | XMS | Encounter Summary ---
Demographics + + + | Address | [address] | | | [place] [address] | + + + | Home Phone [...] Team Providers + +------+ + | Care Sleep Manager Name | Role | Phone | [...] | Malignant | Marty Toledo MD | [address] | | | | | neoplasm of | [place] | [address] | | | | | rectum | SURGICAL | [place] | | | | | | CLINIC [address] | [place], [place] | | | | | | [address] | [address] | | | | | | AVE | Phone: | | | | | | [place], | [phone] | | | | | | [place] [address] | Fax: | | | | | | Phone: | [phone] | | | | | | [phone] | | | | | | | Fax: | | | | | | | [phone] | | +--------+--------+ + + + + Encounter Details +--------+---------+ + + + | Date | Type | Department | Care Team | Description | +--------+---------+ + + + | 10/05/ | Office | Digestive Health | Ailyn Wolff MD | CA of rectum (HCC) | | 2017 | Visit | [place] [facility] [address] | [address] | (Primary Dx) | | | | [address] | [address] [place], | | | | | Mailcode: [place] | [place] [address] | | | | | for Health and | [phone] | | | | | [facility] 2 | | | | | | [place], [place] | | | | | | [address] | | | | | | [phone] | | | +--------+---------+ + + + [...] IV contrast from today. Present at the [facility] Multidisciplinary GI Oncology Conference on 10/07/16. Further recommendations to follow. Likely neoadjuvant chemoradiation. Plans to start chemotherapy on 10/18/16. Radiation will start a week later. Cc: [place] onc [facility] [place]. [facility]'sElectronically signed by Ailyn Wolff MD at 017 2:25 PM PDT documented in this encounter Progress Notes mEily Gresham MA - 10/05/2016 1:00 PM PDTExamination [...] rectal bleeding on 07/19/16 went to the [facility] ED CT abdomen/pelvis with IV [...] (10/05/16) no liver metastases rigid proctoscopy by la (10/05/16) 6 cm from anal verge presented at the [facility] Multidisciplinary GI Oncology Conference on [...] IV contrast from today. Present at the [facility] Multidisciplinary GI Oncology Conference on 10/07/16. Further [...] bleeding on 07/19/16. She went to the [facility] ED. 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 47 minute document review cc: Dr. Alfaro, Radiation Oncology at [facility] in [place]. documented in this encounter Plan of Treatment +--------+---------+ + + + | Date | Type | Specialty | Care Team | Description | +--------+---------+ + + + | 06/18/ | Office | Surgery | Ailyn Wolff MD | | | 2019 | Visit | | [address] | | | | | | [place], | | | | | | [place] [address] | | | | | | [phone] | | | | | | | | +--------+---------+ + + + documented as of this encounter Procedures + +--------+ + + + | Procedure Name | Priori | Date/Time | Associated Diagnosis | Comments | | | ty | | | | + +--------+ + + + | [place] | Routin | 10/28/2016 | CA of [...]
--- OUTSIDE RECORDS SUMMARY | ~2019-05-24 | XMS | Encounter Summary ---
Demographics + + + | Address | [address] | | | [place] [address] | + + + | Home Phone [...] Team Providers + +------+ + | Care Setter Juice Packaging Machines Name | Role | Phone | + +------+ + | Silvioct Kristian | PCP | | + +------+ + Reason for Visit + + + | Reason | Comments | + + + | Outside Records | CT chest, abdomen, pelvis September 2017 and MRI September 2017 St | | Received | [facility]. Images in IMPAX | + + + Encounter Details +--------+ + + + + | Date | Type | Department | Care Team | Description | +--------+ + + + + | 01/04/ | Abstract | Digestive Health | Ailyn Wolff MD | Outside Records | | 2018 | | Center at [facility] [address] | [address] | Received (CT chest, | | | | [address] | [address] [place], | abdomen, pelvis | | | | Mailcode: Center | [place] [address] | September 2017 and MRI | | | | for Health and | [phone] | September 2017 St | | | | [facility], [facility] 2 | | [facility]. | | | | [place], [place] | | Images in IMPAX) | | | | [address] | | | | | | [phone] | | | +--------+ + + + [...] | | | | | | [place] [address] | | | | | | [phone] | | | | | | | | +--------+---------+ + + + documented as of this encounter Visit Diagnoses Not on filedocumented in this encounter"
--- OUTSIDE RECORDS SUMMARY | ~2019-05-24 | XMS | Encounter Summary ---
Demographics + + + | Address | [address] | | | [place] [address] | + + + | Home Phone [...] Providers + +------+ + | Care Assistant To The Director Name | Role | Phone | [...] | 2017 | | Center at [facility] [address] | [address] | Received (10/27/2016 | | | | [address] | [address] [place], | Op notes and | | | | Mailcode: [place] | [place] [address] | Pathology) | | | | for Health and | [phone] | | | | | [facility] 2 | | | | | | [place], [place] | | | | | | [address] | | | | | | [phone] | | | +--------+ + + + [...] | | | | | [address] [place], | | | | | | [place] [address] | | | | | | [phone] | | | | | | | | +--------+---------+ + + + documented as of this encounter Visit Diagnoses Not on filedocumented in this encounter"
--- OUTSIDE RECORDS SUMMARY | ~2019-05-24 | XMS | Encounter Summary ---
Demographics + + + | Address | [address] | | | [place] [address] | + + + | Home Phone [...] Providers + +------+ + | Care Motion Picture Projectionist Apprentice Name | Role | Phone | + +------+ + | Justin Kristian | PCP | | + +------+ + Encounter Details +--------+------+ + + + | Date | Type | Department | Care Team | Description | +--------+------+ + + + | 05/29/ | Lab | Laboratory at [facility] | | SABINA chung [facility]) | | 2018 | | [address] | | | | | | [place], [place] | | | | | | [address] | | | | | | [phone] | | | +--------+------+ + + + [...] | | | | | Suzy H[place], | | | | | | [place] [address] | | | | | | [phone] | | | | | | | [...] + + + + + | [facility] | [address] | [place] [address] | | | SERVICES, CORE | [address] | | | + + + + + documented in this encounter Visit Diagnoses + + | Diagnosis | + + | CA of rectum (HCC) Malignant neoplasm of rectum | + + documented in this encounter"
--- OUTSIDE RECORDS SUMMARY | ~2019-05-24 | XMS | Encounter Summary ---
Demographics + + + | Address | [address] | | | [place] [address] | + + + | Home Phone [...] Team Providers + +------+ + | Care Mobile Application Tester Name | Role | Phone | + +------+ + | Justin Kristian | PCP | | + +------+ + Encounter Details +--------+------+ + + + | Date | Type | Department | Care Team | Description | +--------+------+ + + + | 02/20/ | Lab | Laboratory at [facility] | | Buzz ([facility]) | | 2018 | | [address] | | | | | | [place], [place] | | | | | | [address] | | | | | | [phone] | | | +--------+------+ + + + [...] | | | | | Suzy Hines [place], | | | | | | [place] [address] | | | | | | [phone] | | | | | | | [...] | + + + + + | [facility] | [address] | [place] [address] | | | SERVICES, CORE | [address] | | | + + + + + documented in this encounter Visit Diagnoses + + | Diagnosis | + + | CA of rectum (HCC) Malignant neoplasm of rectum | + + documented in this encounter"
--- OUTSIDE RECORDS SUMMARY | ~2019-05-24 | XMS | Encounter Summary ---
Demographics + + + | Address | [address] | | | [place] [address] | + + + | Home Phone [...] Providers + +------+ + | Care Sales Representative Wire Rope Name | Role | Phone | + [...] | | | | | Amita H[place], | | | | | | [place] [address] | | | +--------+ + + + [...] | | | | | | Amita [place], | | | | | | [place] [address] | | | | | | [phone] | | | | | | | | +--------+---------+ + + + documented as of this encounter Visit Diagnoses Not on filedocumented in this encounter"
--- OUTSIDE RECORDS SUMMARY | ~2019-05-24 | XMS | Encounter Summary ---
Demographics + + + | Address | [address] | | | [place] [address] | + + + | Home Phone [...] Team Providers + +------+ + | Care Dish Cloth Inspector Name | Role | Phone | [...] | 2018 | Encounter | Center at [facility] [address] | [address] | | | | | [address] | [address]mita H[address] [place], | | | | | Mailcode: [place] | [place] [address] | | | | | for Health and | [phone] | | | | | [facility] 2 | | | | | | [place], [place] | | | | | | [address] | | | | | | [phone] | | | +--------+ + + + [...] | | | | | Amita H[place], | | | | | | [place] [address] | | | | | | [phone] | | | | | | | | +--------+---------+ + + + documented as of this encounter Visit Diagnoses Not on filedocumented in this encounter"
--- OUTSIDE RECORDS SUMMARY | ~2019-05-24 | XMS | Encounter Summary ---
Demographics + + + | Address | [address] | | | [place] [address] | + + + | Home Phone [...] Providers + +------+ + | Care Retail Cashier Name | Role | Phone | + [...] | | | | Pre-operativ | [address] | | | | | | e | [address] | | | | | | cardiovascul | [place], | | | | | | ar | [place] | | | | | | examination | [address] | | | | | | Tobacco | Phone: | | | | | | abuse | [phone] | | | | | | Dyspnea, | Fax: | | | | | | unspecified | [phone] | | | | | | type [...] | | | | | | at [facility] [address] | | | | | | [address] Mailcode: | | | | | | [address] | | | | | | Health and Healing, | | | | | | Building 1 | | | | | | [place], [place] | | | | | | [address] | | | | | | [phone] | | | +--------+ + + + [...] | | | | | [address] [place], | | | | | | [place] [address] | | | | | | [phone] | | | | | | | [...] formed At | + +---- + | [facility] | [facility] DEPT OF | | [facility] [address] | [facility] | | [place], [place] [address] Ph: | | | Pt Name: JENN BYRNES | | | Study Date/Time 10/06/2016 / 8:59:07 AMMRN: [id number] | | | Most recent prior: -Acc #: [id number] | | | No. previous echos: 0DOB: 1960 55 years Heart Rate: | | | 78 bpmHeight: 63.0 in Blood | | | Pressure: 131/69 mm/HgWeight: 142.0 lb | | | Gender: FBSA: 1.67 m2 | | | Order ID: [id number] Maintenance Equipment Operator: Brandon Hwang MA, | | | [facility] Referring Provider: Brittany Rojas Location: | [...] Report electronically signed by: | | | [id number] Cole Chávez MD (10/06/2016, 10:21:24 AM)REPORT | | | [id number] HOSP=PO REGION=A0 Final | | | cm [...] | | | |Report electronically signed by: [id number] Cole Chávez MD (10/06/2016, 10:21:24 | | |AM) | | |REPORT [id number] HOSP=PO REGION=A0 | | | | | | | | | | | | Final | | + +---- + + + | Procedure Note | + + | Interface, Cardiology Results - 10/06/2016 10:21 AM [facility] | | [facility] Echocardi[facility] [address] [place] [address] | | [place], [place] [address] Pt Name: JENN | | BRITTANY BYRNES Study Date/Time 10/06/2016 / 8:59:07 AMMRN: [id number] | | Most recent prior: -Acc #: [id number] No. previous echos: 0DOB: | | 1960 55 years Heart Rate: 78 bpmHeight: 63.0 in Blood | | Pressure: 131/69 mm/HgWeight: 142.0 lb Gender: FBSA: | | 1.67 m2 Order ID: [id number] Maintenance Equipment Operator: Brandon Hwang MA, | | RDCSReferring Provider: Brittany Rojas Location: [facility] Performed: | | 2D, Color flow, Spectral [...] | indexed values Report electronically signed by: [id number] Cole Chávez MD | | (10/06/2016, 10:21:24 AM)REPORT [id number] HOSP=PO REGION=A0 Final | |ventricular ejection fraction [...] | | | |Report electronically signed by: [id number] Cole Chávez MD (10/06/2016, 10:21:24 | |AM) | |REPORT [id number] HOSP=PO REGION=A0 | | | | | | | | Final | + + + + + + + | Performing | Address | City/State/[facility] | Phone Number | | Organization | | | | + + + + + | [facility] | [address] | [place], [place] | | | CARDIOLOGY | [address] | [address] | | + + + + + documented in this encounter Visit Diagnoses + + | Diagnosis | + + | Pre-operative cardiovascular examination | + + | Tobacco abuse Tobacco use disorder | + + | Dyspnea, unspecified type | + + | Aortic systolic murmur on examination | + + documented in this encounter"
--- OUTSIDE RECORDS SUMMARY | ~2019-05-24 | XMS | Encounter Summary ---
Demographics + + + | Address | [address] | | | [place] [address] | + + + | Home Phone [...] Providers + +------+ + | Care Clinical Staff Rn Name | Role | Phone | [...] | Encounter | Center at [facility] [address] | [address] | | | | | [address] | Amita Hines [place], | | | | | Mailcode: [place] | [place] [address] | | | | | for Health and | [phone] | | | | | [facility] 2 | | | | | | [place], [place] | | | | | | [address] | | | | | | [phone] | | | +--------+ + + + [...] | | | | | Amita Hines [place], | | | | | | [place] [address] | | | | | | [phone] | | | | | | | | +--------+---------+ + + + documented as of this encounter Visit Diagnoses Not on filedocumented in this encounter"
--- OUTSIDE RECORDS SUMMARY | ~2019-05-24 | XMS | Encounter Summary ---
Demographics + + + | Address | [address] | | | [place] [address] | + + + | Home Phone [...] Providers + +------+ + | Care Salesperson Corsets Name | Role | Phone | + +------+ + | Justin Kristian | PCP | | + +------+ + Encounter Details +--------+ + + + + | Date | Type | Department | Care Team | Description | +--------+ + + + + | 09/22/ | Procedure | [facility] | | | | 2017 | Pass | [place] at | | | | | | [place] [address] | | | | [address] | | | | | | [place], [place] | | | | | | [address] | | | | | | [phone] | | | +--------+ + + + [...] | | | | | | [place] [address] | | | | | | [phone] | | | | | | | | +--------+---------+ + + + documented as of this encounter Visit Diagnoses Not on filedocumented in this encounter"
--- OUTSIDE RECORDS SUMMARY | ~2019-05-24 | XMS | Encounter Summary ---
Demographics + + + | Address | [address] | | | [place] [address] | + + + | Home Phone | | + + + | Preferred Language | Unknown | + + + | Marital Status | | + + + | Jehovah'S Witness Affiliation | Unknown | + + + | Race | Unknown | + + + | Ethnic Group | Unknown | + + + Author + + + | Author | [facility] | | | and [place] | + + + | Organization | [facility] | | | and [place] | + + + | Address | Unknown | + + + | Phone | Unavailable | + + + Support + + + + + | Name | Relationship | Address | Phone | + + + + + | Lamar Phillips | ECON | [place] [address] | | + + + + + Care Team Providers + +------+ + | Care Engineering Patternmaker Name | Role | Phone | + [...] WALL | | | | | [address] | [place] [address] | | | | | [place] [address] | [phone] | | | | | [phone] | | | +--------+ + + + [...]
--- OUTSIDE RECORDS SUMMARY | ~2019-05-24 | XMS | Encounter Summary ---
Demographics + + + | Address | [address] | | | [place] [address] | + + + | Home Phone [...] Team Providers + +------+ + | Care Pull Over Machine Operator Name | Role | Phone [...] 2017 | | Center at [facility] [address] | [address] | Review | | | | [address] | Amita Hines [place], | | | | | Mailcode: [place] | [place] [address] | | | | | for Health and | [phone] | | | | | [facility] 2 | | | | | | [place], [place] | | | | | | [address] | | | | | | [phone] | | | +--------+ + + + [...] | | | | | Amita Hines [place], | | | | | | [place] [address] | | | | | | [phone] | | | | | | | | +--------+---------+ + + + documented as of this encounter Visit Diagnoses Not on filedocumented in this encounter"
--- OUTSIDE RECORDS SUMMARY | ~2019-05-24 | XMS | Encounter Summary ---
Demographics + + + | Address | [address] | | | [place] [address] | + + + | Home Phone [...] Providers + +------+ + | Care Executive Account Manager Name | Role | Phone [...] | | 2018 | | Center at [facility] [address] | [address] | Review | | | | [address] | Amita Hines [place], | | | | | Mailcode: [place] | [place] [address] | | | | | for Health and | [phone] | | | | | [facility] 2 | | | | | | [place], [place] | | | | | | [address] | | | | | | [phone] | | | +--------+ + + + [...] | | | | | | [place] [address] | | | | | | [phone] | | | | | | | | +--------+---------+ + + + documented as of this encounter Visit Diagnoses Not on filedocumented in this encounter"
--- OUTSIDE RECORDS SUMMARY | ~2019-05-24 | XMS | Encounter Summary ---
Demographics + + + | Address | [address] | | | [place] [address] | + + + | Home Phone [...] Team Providers + +------+ + | Care Piercer Name | Role | Phone | + [...] | | 2017 | | Center at [facility] [address] | [address] | Received (CT) | | | | [address] | Amita Hines [place], | | | | | Mailcode: [place] | [place] [address] | | | | | for Health and | [phone] | | | | | [facility] 2 | | | | | | [place], [place] | | | | | | [address] | | | | | | [phone] | | | +--------+ + + + [...] | | | | | Amita Hines [place], | | | | | | [place] [address] | | | | | | [phone] | | | | | | | | +--------+---------+ + + + documented as of this encounter Visit Diagnoses Not on filedocumented in this encounter"
--- OUTSIDE RECORDS SUMMARY | ~2019-05-24 | XMS | Encounter Summary ---
Demographics + + + | Address | [address] | | | [place] [address] | + + + | Home Phone [...] Providers + +------+ + | Care Turret Punch Operator Name | Role | Phone | [...] | | | | [facility] | [place], [place] | | | | | [place] [address] | [address] | | | | | [place], [place] | | | | | | [address] | | | | | | [phone] | | | +--------+ + + + [...] | | 18 | | | | 905159, Skin prep: | | | | | | | 3M 3344 (30/mo), Adh | | | | | | | Rem HO 7760 | | | | | | | (1box/mo), Rings: HO | | | | | | | 8805 (10/mo), | | | | | | | [place]odorant: [place] [address] | | | | | | | (60/mo), Pwdr: CT | | | | | | | 965699 (1oz/mo), | | | | | | | Belt: Lrg (2/mo) | | | | | | | and Irrigation [place] | | | | | | | 780131, [place]leeve [place] | | | | | | | 458074 | | | | | + + [...] | 2018 | Visit | | [address] | | | | | | Amita Hines [place], | | | | | | [place] [address] | | | | | | [phone] | | | | | | | | +--------+---------+ + + + documented as of this encounter Visit Diagnoses Not on filedocumented in this encounter"
--- OUTSIDE RECORDS SUMMARY | ~2019-05-24 | XMS | Encounter Summary ---
Demographics + + + | Address | [address] | | | [place] [address] | + + + | Home Phone [...] Providers + +------+ + | Care Charge Histotechnologist Name | Role | Phone | + [...] findings, | | 2017 | | at [facility] [address] | WEN Gutiérrez [address] | teaching, guidance, | | | | [address] Mailcode: | [address] [place], | and counseling | | | | [address] | [place] [address] | | | | | Health and Healing, | [phone] | | | | | [facility] | | | | | | Floor [place], [place] | | | | | | [address] | | | | | | [phone] | | | +--------+ + + + [...] | | | | | | [place] [address] | | | | | | [phone] | | | | | | | | +--------+---------+ + + + documented as of this encounter Visit Diagnoses Not on filedocumented in this encounter"
--- OUTSIDE RECORDS SUMMARY | ~2019-05-24 | XMS | Encounter Summary ---
Demographics + + + | Address | [address] | | | [place] [address] | + + + | Home Phone [...] Team Providers + +------+ + | Care National Service Officer Name | Role | Phone | [...] | Center at [facility] [address] | [address] | | | | | [address] | Amita Hines [place], | | | | | Mailcode: [place] | [place] [address] | | | | | for Health and | [phone] | | | | | [facility] 2 | | | | | | [place], [place] | | | | | | [address] | | | | | | [phone] | | | +--------+ + + + [...] | | | | | | [place] [address] | | | | | | [phone] | | | | | | | | +--------+---------+ + + + documented as of this encounter Visit Diagnoses Not on filecumented in this encounter"
--- OUTSIDE RECORDS SUMMARY | ~2019-05-24 | XMS | Encounter Summary ---
Demographics + + + | Address | [address] | | | [place] [address] | + + + | Home Phone [...] Team Providers + +------+ + | Care Quill Picking Machine Operator Name | Role | Phone [...] | 2017 | Encounter | Center at [facility] [address] | [address] | | | | | [address] | Amita Hines [place], | | | | | Mailcode: [place] | [place] [address] | | | | | for Health and | [phone] | | | | | [facility] 2 | | | | | | [place], [place] | | | | | | [address] | | | | | | [phone] | | | +--------+ + + + [...] | | | | | | [place] [address] | | | | | | [phone] | | | | | | | | +--------+---------+ + + + documented as of this encounter Visit Diagnoses Not on filedocumented in this encounter"
--- OUTSIDE RECORDS SUMMARY | ~2019-05-24 | XMS | Encounter Summary ---
Demographics + + + | Address | [address] | | | [place] [address] | + + + | Home Phone [...] Providers + +------+ + | Care Television Analyzer Name | Role | Phone | + [...] | Discussion | | 2017 | | [place] [address] [address] | [address] | | | | | [address] | [facility], | | | | | Mailcode: [facility] [address] | | | | | for [facility] and | [phone] | | | | | [facility] 2 | | | | | | [place], [place] | | | | | | [address] | | | | | | [phone] | | | +--------+ + + + [...] | | | | | | [place] [address] | | | | | | [phone] | | | | | | | | +--------+---------+ + + + documented as of this encounter Visit Diagnoses Not on filedocumented in this encounter"
--- OUTSIDE RECORDS SUMMARY | ~2019-05-24 | XMS | Clinical Summary ---
Demographics + + + | Address | [address] | | | [place] [address] | + + + | Home Phone [...] Author + + + | Author | [facility] | + + + | Organization | [facility] | + + + | Address | Unknown | + + + | Phone | Unavailable | + + + Support + + +---------+ + | Name | Relationship | Address | Phone | + + +---------+ + | Darrius Quintana | ECON | Unknown | | + + +---------+ + Care Team Providers + +------+ + | Care Supportability Engineer Name | Role | Phone | + +------+ + | Kristian Anderson DO | PCP | | + +------+ + Source Comments CHAPIN is fully live on both [facility] Ambulatory and [facility] InPatient.[facility] Allergies + + + + [...] | | | e | | | MA-HF-AE). | | | | | | | | ointment | | | | | | + + + +---------+------+------+-------+ | Ostomy Supplies | Colostomy | 1 each | 11 | 11/0 | | Activ | | misc | [id number]: CO | | | 20 | | e | | | 240775, Skin prep: | | | 18 | | | | | 3M 3344 (30/mo), Adh | | | | | | | | Rem HO 7760 | | | | | | | | (1box/mo), Rings: HO | | | | | | | | 8805 (10/mo), | | | | | | | | [place] [address] | | | | | | | | (60/mo), Pwdr: CT | | | | | | | | 526624 (1oz/mo), | | | | | | | | Belt: Lrg (2/mo) | | | | | | | | and Irrigation CO | | | | | | | | 689536, Sleeve [place] | | | | | | | | 092247 | | | | | | + [...] Heart Attack | Father | | from [place] at age 52 | + + +------+ [...] | | | | | Suzy Hines [place], | | | | | | [place] [address] | | | | | | [phone] | | | | | | | [...] CHAPIN JESSICA | [address] | [place] [address] | | | CAR TELLO | SUZY [...] | MEDICA | xxxxxxxxxxx | 12/24/19 | [phone] | [address] | Medica | | | RE A & | | 19-Pre | 1 | [address] | re | | | B | | sent | | [place] | | | | | | | | [address] | | + +--------+ +--------+ + +--------+ [...] | | 1961 | [phone] | [address] [place] | | | guerda | | | 8 (Home) | [address] | + +--------+ +--------+ + + Advance [...]
--- OUTSIDE RECORDS SUMMARY | ~2019-05-24 | XMS | Encounter Summary ---
Demographics + + + | Address | [address] | | | [place] [address] | + + + | Home Phone [...] Providers + +------+ + | Care Transportation Aide Name | Role | Phone | + +------+ + | Silvioct Kristian | PCP | | + +------+ + Encounter Details +--------+------+ + + + | Date | Type | Department | Care Team | Description | +--------+------+ + + + | 08/28/ | Lab | Laboratory at [facility] | | SABINA chung [facility] | | 2019 | | [address] | | | | | | [place], [place] | | | | | | [address] | | | | | | [phone] | | | +--------+------+ + + + [...] | | | | | Suzy Hines [place], | | | | | | [place] [address] | | | | | | [phone] | | | | | | | [...] | + + + + + | [facility] | [address] | [place] [address] | | | SERVICES, CORE | [address] | | | + + + + + documented in this encounter Visit Diagnoses + + | Diagnosis | + + | CA of rectum (HCC) Malignant neoplasm of rectum | + + documented in this encounter"
--- OUTSIDE RECORDS SUMMARY | ~2019-05-24 | XMS | Encounter Summary ---
Demographics + + + | Address | [address] | | | [place] [address] | + + + | Home Phone [...] Providers + +------+ + | Care Medical Specialist Name | Role | Phone | [...] | | | | [facility] | [place], [place] | | | | | [place] [address] | [address] | | | | | [place], [place] | | | | | | [address] | | | | | | [phone] | | | +--------+ + + + [...] | | 18 | | | | 084506, Skin prep: | | | | | | | 3M 3344 (30/mo), Adh | | | | | | | Rem HO 7760 | | | | | | | (1box/mo), Rings: HO | | | | | | | 8805 (10/mo), | | | | | | | [place]odor[place]: [place] [address] | | | | | | | (60/mo), Pwdr: CT | | | | | | | 006179 (1oz/mo), | | | | | | | Belt: Lrg (2/mo) | | | | | | | and Irrigation CO | | | | | | | 121980, [place]leeve [place] | | | | | | | 134048 | | | | | + + [...] | | | | | Amita Hines [place], | | | | | | [place] [address] | | | | | | [phone] | | | | | | | | +--------+---------+ + + + documented as of this encounter Visit Diagnoses Not on filedocumented in this encounter"
--- OUTSIDE RECORDS SUMMARY | ~2019-05-24 | XMS | Encounter Summary ---
Demographics + + + | Address | [address] | | | [place] [address] | + + + | Home Phone [...] Team Providers + +------+ + | Care Gear Repair Supervisor Name | Role | Phone | + +------+ + | Kristian Anderson DO | PCP | | + +------+ + Encounter Details +--------+ + + + + | Date | Type | Department | Care Team | Description | +--------+ + + + + | 07/19/ | Hydroelectric Station Chief | Digestive Health | Trinidad Garcia, | | | 2016 | | Center at [facility] [address] | AGACNP [address] | | | | | [address] | [facility] [place] | | | | | Mailcode: [place] | [address] | | | | | for Health and | | | | | | [facility] 2 | | | | | | [facility] [place] | | | | | | [address] | | | | | | [phone] | | | +--------+ + + + [...] | | | | | Amita Hines [place], | | | | | | [place] [address] | | | | | | [phone] | | | | | | | | +--------+---------+ + + + documented as of this encounter Visit Diagnoses Not on filedocumented in this encounter"
--- OUTSIDE RECORDS SUMMARY | ~2019-05-24 | XMS | Encounter Summary ---
Demographics + + + | Address | [address] | | | [place] [address] | + + + | Home Phone [...] Team Providers + +------+ + | Care Barbecue Cook Name | Role | Phone | [...] | | 2019 | | Center at [facility] [address]85 | [address] | Received | | | | [address] | Amita Hines [place], | | | | | Mailcode: [place] | [place] [address] | | | | | for Health and | [phone] | | | | | [facility] 2 | | | | | | [place], [place] | | | | | | [address] | | | | | | [phone] | | | +--------+ + + + [...] | | | | | Amita Hines [place], | | | | | | [place] [address] | | | | | | [phone] | | | | | | | | +--------+---------+ + + + documented as of this encounter Visit Diagnoses Not on filedocumented in this encounter"
--- OUTSIDE RECORDS SUMMARY | ~2019-05-24 | XMS | Encounter Summary ---
Demographics + + + | Address | [address] | | | [place] [address] | + + + | Home Phone [...] Providers + +------+ + | Care Cook Specialty Name | Role | Phone | + [...] 2017 | | Center at [facility] [address] | [address] | Received | | | | [address] | Amita Hines [place], | | | | | Mailcode: [place] | [place] [address] | | | | | for Health and | [phone] | | | | | [facility] 2 | | | | | | [place], [place] | | | | | | [address] | | | | | | [phone] | | | +--------+ + + + [...] | | | | Amita Hines [place], | | | | | | [place] [address] | | | | | | [phone] | | | | | | | | +--------+---------+ + + + documented as of this encounter Visit Diagnoses Not on filedocumented in this encounter"
--- OUTSIDE RECORDS SUMMARY | ~2019-05-24 | XMS | Encounter Summary ---
Demographics + + + | Address | [address] | | | [place] [address] | + + + | Home Phone [...] Team Providers + +------+ + | Care Tobacco Flavorer Name | Role | Phone | + +------+ + | Kristian Anderson DO | PCP | | + +------+ + Encounter Details +--------+ + + + + | Date | Type | Department | Care Team | Description | +--------+ + + + + | 01/03/ | Document-Sc | Health Information | Unknown . | | | 2017 | anned | Services [address] | | | | | | [address] | | | | | | Mailcode: OP17A | | | | | | [facility] | | | | | | [place], [place] | | | | | | [address] | | | | | | [phone] | | | +--------+ + + + [...] | | | | | Amita Hines [place], | | | | | | [place] [address] | | | | | | [phone] | | | | | | | [...]
--- OUTSIDE RECORDS SUMMARY | ~2019-05-24 | XMS | Encounter Summary ---
Demographics + + + | Address | [address] | | | [place] [address] | + + + | Home Phone [...] Team Providers + +------+ + | Care Outreach Coordinator Name | Role | Phone | [...] | | 2018 | | Center at [facility] [address] | [address] | Review | | | | [address] | Amita Hines [place], | | | | | Mailcode: [place] | [place] [address] | | | | | for Health and | [phone] | | | | | [facility] 2 | | | | | | [place], [place] | | | | | | [address] | | | | | | [phone] | | | +--------+ + + + [...] | | | | | Amita Hines [place], | | | | | | [place] [address] | | | | | | [phone] | | | | | | | | +--------+---------+ + + + documented as of this encounter Visit Diagnoses Not on filedocumented in this encounter"
--- OUTSIDE RECORDS SUMMARY | ~2019-05-24 | XMS | Encounter Summary ---
Demographics + + + | Address | [address] | | | [place] [address] | + + + | Home Phone [...] Team Providers + +------+ + | Care Level Vial Inspector And Tester Name | Role | Phone | [...] | | | | CT ABDOMEN | [place], [place] | Mailcode: | | | | | [place] | [address] | [address] [facility] | | | | | W IV | Phone: | Hospital | | | | | [place] | [phone] | [place], [place] | | | | | [place] | Fax: | [address] | | | | | ABDOMEN&PELV | [phone] | Phone: | | | | | IS | | [phone] | | | | | W/CONTRAST | | Fax: | | | | | | | [phone] | +--------+--------+ + + + + Reason [...] | | | | CT ABDOMEN | [place], [place] | Mailcode: | | | | | [place] | [address] | [address] [facility] | | | | | W IV | Phone: | Hospital | | | | | [place] | [phone] | [facility] [place] | | | | | [place] | Fax: | [address] | | | | | ABDOMEN&PELV | [phone] | Phone: | | | | | IS | | [phone] | | | | | W/CONTRAST | | Fax: | | | | | | | [phone] | +--------+--------+ + + + + Encounter Details +--------+ + + + + | Date | Type | Department | Care Team | Description | +--------+ + + + + | 10/05/ | Hospital | Radiology/Imaging | Ailyn Wolff MD | | | 2017 | Encounter | Lab at [facility] [address] | [address] | | | | | [address] Mailcode: | Amita Hines [place], | | | | | [facility] | [place] [address] | | | | | Health and Healing, | [phone] | | | | | [address] | | | | | | [place], [place] | | | | | | [address] | | | | | | [phone] | | | +--------+ + + + [...] | | | | | Amita Hines [place], | | | | | | [place] [address] | | | | | | [phone] | | | | | | | [...]
--- OUTSIDE RECORDS SUMMARY | ~2019-05-24 | XMS | Encounter Summary ---
Demographics + + + | Address | [address] | | | [place] [address] | + + + | Home Phone [...] Team Providers + +------+ + | Care Nuts And Bolts Assembler Name | Role | Phone | [...] [place]TH [address] | [address] | Planning Conference | | | | [address] | [address] [place], | delayed) | | | | Mailcode: [place] | [place] [address] | | | | | for Health and | [phone] | | | | | [facility] 2 | | | | | | [place], [place] | | | | | | [address] | | | | | | [phone] | | | +--------+ + + + [...] | | | | | Amita Hines [place], | | | | | | [place] [address] | | | | | | [phone] | | | | | | | | +--------+---------+ + + + documented as of this encounter Visit Diagnoses Not on filedocumented in this encounter"
--- OUTSIDE RECORDS SUMMARY | ~2019-05-24 | XMS | Encounter Summary ---
Demographics + + + | Address | [address] | | | [place] [address] | + + + | Home Phone [...] + +------+ + | Care Business Development Executive Name | Role | Phone | + [...] | 2017 | | Center at [facility] [address] | [address] | Review | | | | [address] | Amita Hines [place], | | | | | Mailcode: [place] | [place] [address] | | | | | for Health and | [phone] | | | | | [facility] 2 | | | | | | [place], [place] | | | | | | [address] | | | | | | [phone] | | | +--------+ + + + [...] | | | | | Amita Hines [place], | | | | | | [place] [address] | | | | | | [phone] | | | | | | | | +--------+---------+ + + + documented as of this encounter Visit Diagnoses Not on filedocumented in this encounter"
--- OUTSIDE RECORDS SUMMARY | ~2019-05-24 | XMS | Encounter Summary ---
Demographics + + + | Address | [address] | | | [place] [address] | + + + | Home Phone [...] Team Providers + +------+ + | Care Lean Leader Name | Role | Phone | [...] | | 2019 | | Center at [facility] [address] | [address] | Review | | | | [address] | Amita Hines [place], | | | | | Mailcode: [place] | [place] [address] | | | | | for Health and | [phone] | | | | | [facility] 2 | | | | | | [place], [place] | | | | | | [address] | | | | | | [phone] | | | +--------+ + + + [...] | | | | | Amita Hines [place], | | | | | | [place] [address] | | | | | | [phone] | | | | | | | | +--------+---------+ + + + documented as of this encounter Visit Diagnoses Not on filedocumented in this encounter"
--- OUTSIDE RECORDS SUMMARY | ~2019-05-24 | XMS | Encounter Summary ---
Demographics + + + | Address | [address] | | | [place] [address] | + + + | Home Phone [...] Team Providers + +------+ + | Care Post Secondary Professional Name | Role | Phone | [...] Report | | 2017 | on | [place] at [facility] [address] | [address] | (GI Oncology | | | | [address] | Amita Hines [place], | Planning Conference) | | | | Mailcode: [place] | [place] [address] | | | | | for Health and | [phone] | | | | | [facility] 2 | | | | | | [place], [place] | | | | | | [address] | | | | | | [phone] | | | +--------+ + + + [...] | | | | | [place], | | | | | | [place] [address] | | | | | | [phone] | | | | | | | | +--------+---------+ + + + documented as of this encounter Visit Diagnoses Not on filedocumented in this encounter"
--- OUTSIDE RECORDS SUMMARY | ~2019-05-24 | XMS | Encounter Summary ---
Demographics + + + | Address | [address] | | | [place] [address] | + + + | Home Phone [...] Team Providers + +------+ + | Care Bagman/Woman Name | Role | Phone | + [...] To Surgery | | 2017 | | [place] at [facility] [address] | | - General | | | | [address] | | | | | | Mailcode: [place] | | | | | | for Health and | | | | | | Healing, Building 2 | | | | | | [place], [place] | | | | | | [address] | | | | | | [phone] | | | +--------+ + + + [...] | | | | Amita Hines [place], | | | | | | [place] [address] | | | | | | [phone] | | | | | | | | +--------+---------+ + + + documented as of this encounter Visit Diagnoses Not on filedocumented in this encounter"
--- OUTSIDE RECORDS SUMMARY | ~2019-05-24 | XMS | Encounter Summary ---
Demographics + + + | Address | [address] | | | [place] [address] | + + + | Home Phone [...] Providers + +------+ + | Care Supervisor Dairy Sanitation Name | Role | Phone | + [...] | | [address] | Amita Hines [place], | | | | | Mailcode: [place] | [place] [address] | | | | | for Health and | [phone] | | | | | [facility] 2 | | | | | | [place], [place] | | | | | | [address] | | | | | | [phone] | | | +--------+ + + + [...] | | | | | Amita Hines [place], | | | | | | [place] [address] | | | | | | [phone] | | | | | | | | +--------+---------+ + + + documented as of this encounter Visit Diagnoses Not on filedocumented in this encounter"
--- OUTSIDE RECORDS SUMMARY | ~2019-05-24 | XMS | Clinical Summary ---
Demographics + + + | Address | [address] | | | [place] [address] | + + + | Home Phone | | + + + | Preferred Language | Unknown | + + + | Marital Status | | + + + | Islam Affiliation | Unknown | + + + | Race | Unknown | + + + | Ethnic Group | Unknown | + + + Author + + + | Author | [facility] | | | and [place] | + + + | Organization | [facility] | | | and [place] | + + + | Address | Unknown | + + + | Phone | Unavailable | + + + Support + + + + + | Name | Relationship | Address | Phone | + + + + + | Lamar Phillips | ECON | [place] [address] | | + + + + + Care Team Providers + +------+ + | Care Instructional Technology Coordinator Name | Role | Phone | [...] 2010 (Rene). Pathological specimens; PAP | | #[id number] "negative for intraepithelial lesions or malignancy." | [...] DIAGNOSIS: Locally Advanced Rectal Cancer, | | [id number], Stage IIA. Willie Barajas presented to the [facility] emergency room on July 20, 2016 with [...] the rectum. Biopsy specimen number | | [id number] evaluated by Dr. Felipe Nixon of [place] | | Pathology was notable for a tubular adenoma without high-grade | | dysplasia or overt carcinoma. This procedure also included a | | full colonoscopy through the ostomy were 2 additional polyps were | | removed, a tubular adenoma at 35 cm and a hyperplastic polyp at | | [address] C/A/P at [facility] in [place], [place] | | demonstrated no evidence of metastatic disease.4. On September 22 | | 2016 Dr. Thacker placed in internal jugular Port-A-Cath without | | complications.5. MRI of pelvis performed on October 05, 2016 at | | [facility]: Rectal mass 7.7 cm x 6.2 cm x 9.6 cm in length located | | within 3 cm of the anal sphincter and 6.4 cm from the anal verge | | with radiographic extension though multiple areas of the bowel | | wall.6. CT abdomen/pelvis also at [facility] October 05, 2016; large | | almost completely circumferential rectosigmoid mass better | | delineated on the corresponding MRI with adjacent probable | | abscess. No distant metastases identified.7. On October 14, 2016 | | Jenn was evaluated by Dr. Ailyn Wolff and Dr. Shea Mcneill of the | | [facility] where her case was presented | | to their tumor board. Clinical exam is notable for an overt | | rectal carcinoma invading into the vagina. 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 Concerns raised by the [facility] | | [facility] Tumor Board were that the [...] as mutation analysis." | | Pathological Specimen #[id number] (Linwood Nixon | | Pathology). Tubulovillous adenoma [...] Multidisciplinary Care Team | | Conference at [facility] March 10, 2017; "Given borderline [...] Dr. Ailyn Wolff at the | | [facility]: 06/30/17: Exploratory laparotomy. Extensive lysis of | | adhesions. Excision of left lower quadrant fistula tract. Total | | mesorectal excision, intersphincteric abdominoperineal resection, | | en bloc resection of left ovary and left fallopian tube and | | posterior vaginal wall. Placement of a 19-Greek Albert drain | | through the right [...] August 12, 2017; [facility], [place], | | [place]; positive for perianal fistula between anus and vagina.22. | | Clinical exam on August 22, [address] Ailyn Wolff at [facility] who could | | not [...] pelvis September 28, 2017 | | ([facility], [place], [place]); Small gas and fluid collection in the | | presacral space, concerning for abscess formation. Postoperative | | changes of low anterior resection, with left lower quadrant end | | colostomy. Left lower quadrant parastomal hernia. Last | | Assessment & Plan: Jenn Parada returned to clinic on | | 01/02/2018 with a bung driver for follow up of her locally advanced | | rectal cancer.Interval history is notable for the fact that | | Kirstie electively removed Jenn's port-a-cath.Interval history is | | also notable for the fact that Jenn had an encounter with her | | surgeon, Dr. Ailyn Wolff at [facility]. Dr. Wolff has asked Jenn to follow up | | with him in [place] every three months.Assessment; Locally | | advanced rectal cancer, status post 10 cycles of neoadjuvant | | FOFLOX, followed by definitive surgery on May 16, 2017, | | followed by two adjuvant cycles of FOLFOX completed on August | | 2017.Plan; Jenn will follow up with Dr. Wolff in [place] every | | three months. Currently, follow-up [...] | [employer] | [facility] | [id number] | | [phone] | | [employer] | [...] | | [address] (Home) | [place] [address] | + +--------+ +--------+ + + Advance Directives Patient has advance care planning documents on file. For more information, please contact:[facility] and [facility] [place] [address]
--- OUTSIDE RECORDS SUMMARY | ~2019-05-24 | XMS | Encounter Summary ---
Demographics + + + | Address | [address] | | | [place] [address] | + + + | Home Phone [...] Providers + +------+ + | Care Lead Pastor Name | Role | Phone | + [...] Record | | 2017 | | at [facility] [address] | | Review (GEN Records | | | | [address] Mailcode: | | Checklist ) | | | | [facility] | | | | | | Health and [facility], | | | | | | Building | | | | | | Floor [place], [place] | | | | | | [address] | | | | | | [phone] | | | +--------+ + + + [...] External Referral Last EKG with original tracings [facility] [place] Yes- Abstract Last Echo with images and report no Last Stress Test with images and report no Last Cardiac Catheterization - images and report no Last Holter or Event monitor - report no Labs (BMP, Lipids, TSH, Hemoglobin A1C in last 6 months) [facility] 09/29 Yes- A bstract [facility] Last PPM/ICD Interrogation report no Last Cardiac MRI report/images if avail no Cardiac CTA - report and images if available no Patient Preferred Lab [facility] Additional Comments: documented in this enco unter Plan of Treatment +--------+---------+ + + + | Date | Type | Specialty | Care Team | Description | +--------+---------+ + + + | 06/18/ | Office | Surgery | Ailny Wolff MD | | | 2019 | Visit | | [address] | | | | | | [place], | | | | | | [place] [address] | | | | | | [phone] | | | | | | | | +--------+---------+ + + + documented as of this encounter Visit Diagnoses Not on filedocumented in this encounter"
--- OUTSIDE RECORDS SUMMARY | ~2019-05-24 | XMS | Encounter Summary ---
Demographics + + + | Address | [address] | | | [place] [address] | + + + | Home Phone [...] Team Providers + +------+ + | Care Germ Drier Name | Role | Phone | [...] | | [address] | [place], | | | | | Mailcode: [place] | [place] [address] | | | | | for Health and | [phone] | | | | | [facility] 2 | | | | | | [place], [place] | | | | | | [address] | | | | | | [phone] | | | +--------+ + + + [...] | | | | | [place], | | | | | | [place] [address] | | | | | | [phone] | | | | | | | | +--------+---------+ + + + documented as of this encounter Visit Diagnoses Not on filedocumented in this encounter"
--- OUTSIDE RECORDS SUMMARY | ~2019-05-24 | XMS | Encounter Summary ---
Demographics + + + | Address | [address] | | | [place] [address] | + + + | Home Phone [...] Providers + +------+ + | Care Manager Environmental Name | Role | Phone | + +------+ + | Kristian Anderson DO | PCP | | + +------+ + Encounter Details +--------+ + + + + | Date | Type | Department | Care Team | Description | +--------+ + + + + | 10/05/ | Abstract | Digestive Health | Ailyn Wolff MD | | | 2017 | | [place] at [facility] [address] | [address] | | | | | [address] | [place], | | | | | Mailcode: [place] | [place] [address] | | | | | [facility] and | [phone] | | | | | [facility] 2 | | | | | | [place], [place] | | | | | | [address] | | | | | | [phone] | | | +--------+ + + + [...] | | | | | [address] [place], | | | | | | [place] [address] | | | | | | [phone] | | | | | | | | +--------+---------+ + + + documented as of this encounter Visit Diagnoses Not on filedocumented in this encounter"
--- OUTSIDE RECORDS SUMMARY | ~2019-05-24 | XMS | Encounter Summary ---
Demographics + + + | Address | [address] | | | [place] [address] | + + + | Home Phone [...] Team Providers + +------+ + | Care Chemist Water Purification Name | Role | Phone | + [...] | | | | Leyla Dept | [address] | | | | | | | [address] | | | | | | | [place] | | | | | | | [place], [place] | | | | | | | [address] | | | | | | | Phone: | | | | | | | [phone] | | | | | | | Fax: | | | | | | | [phone] | +--------+--------+ + + + + Encounter Details +--------+---------+ + + + | Date | Type | Department | Care Team | Description | +--------+---------+ + + + | 08/28/ | Office | Digestive Health | Ailyn Wolff MD | CA of rectum (HCC) | | 2019 | Visit | [place] at [facility] [address] | [address] | (Primary Dx) | | | | [address] | [place], | | | | | Mailcode: [place] | [place] [address] | | | | | for Health and | [phone] | | | | | Healing, Building 2 | | | | | | [place], [place] | | | | | | [address] | | | | | | [phone] | | | +--------+---------+ + + + [...] rectal bleeding on 07/19/16 went to [facility] ED CT abdomen/pelvis with IV contrast [...] (10/05/16) no liver metastases rigid proctoscopy by co (10/05/16) 6 cm from anal verge presented at the [facility] Multidisciplinary GI Oncology Conference on [...] to Mendoza pouch staple line presented at [facility] Multidisciplinary GI Oncology Conference on [...] MRI ([facility], 05/17/17) close to pelvic sidewall [facility] Multidisciplinary GI Oncology Conference (06/02/17) [...] resection with Primary anastomosis, placement of a 19-Malaysian Albert drain through the right lower quadrant [...] resection with primary anastomosis, placement of a 19-Malaysian Albert drain through the right lower quadrant [...] family h istory, and social history in [facility]. Objective: BP 148/91 | Pulse 82 | [...] Return/Re-evaluation patient, I spent 13 minutes of dtoh-me-yjcw time, of which m ore than half [...] | | | | | [place], | | | | | | [place] [address] | | | | | | [phone] | | | | | | | [...] + + + + + | [facility] | [address] | [place] [address] | | | SERVICES, CORE | [address] | | | + + + + + documented in this encounter Visit Diagnoses + + | Diagnosis | + + | 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
--- OUTSIDE RECORDS SUMMARY | ~2019-05-24 | XMS | Encounter Summary ---
Demographics + + + | Address | [address] | | | [place] [address] | + + + | Home Phone [...] Team Providers + +------+ + | Care Dynamometer Mechanic Name | Role | Phone | [...] | | | | CONSULT TO | [place], [place] | [address] | | | | | RADIATION | [address] | Rd [place], | | | | | ONCOLOGY | Phone: | [place] | | | | | | [phone] | [address] | | | | | | Fax: | Phone: | | | | | | [phone] | [phone] | | | | | | | Fax: | | | | | | | [phone] | +--------+--------+ + + + + Encounter Details +--------+---------+ + + + | Date | Type | Department | Care Team | Description | +--------+---------+ + + + | 06/14/ | Office | Radiation Oncology | Wade Sherman, | Rectal cancer (HCC) | | 2017 | Visit | at [facility] [address] | [address] | (Primary Dx) | | | | [address] | [address] | | | | | [place] | [place], [place] | | | | | [place], [place] | [address] | | | | | [address] | [phone] | | | | | [phone] | | | +--------+---------+ + + + [...] + documented in this encounter Progress Notes Waed Sherman MD - 06/14/2017 2:00 PM PSTFormatting [...] anal biopsy on 10/27/16 consistent with malignancy. [facility] tumor board consensus was to proceed with total neoadjuvant therapy. She completed 6 cycles of FOLFOX on , and pelvic EBRT to 50.4 Gy on 02/17/17. Followup MRI on 03/02/17 with good tumor response but circumferential margin still threatened. [facility] recommendations to proceed with another 6 [...] 1 Years of education: 12 Occupational History [employer] Social History Main Topics Smoking status: Former Smoker Packs/day: 1.50 Years: 41.00 Quit date: 07/19/2016 Smokeless tobacco: Former User Alcohol use No Drug use: No Sexual activity: Not Currently Other Topics Concern Not on file Social History Narrative No narrative on file Family History: Family History Problem Relation Cancer Mother breast Hypertension Mother Heart Attack Father from [place] at age 52 Diabetes Father Heart Attack [...] IORT to 1 cm depth per the [facility] experience while retracting all small bowel and ureters out of the field (PMID [id number]) Wade Sherman MD CC: A copy of [...] | | | | | [place], | | | | | | [place] [address] | | | | | | [phone] | | | | | | | | +--------+---------+ + + + documented as of this encounter Visit Diagnoses + + | Diagnosis | + + | Rectal cancer (HCC) - Primary Malignant neoplasm of rectum | + + documented in this encounter
--- OUTSIDE RECORDS SUMMARY | ~2019-05-24 | XMS | Encounter Summary ---
Demographics + + + | Address | [address] | | | [place] [address] | + + + | Home Phone [...] Providers + +------+ + | Care Chief Maintenance Supervisor Name | Role | Phone | [...] | | | | [facility] | [place], [place] | | | | | [address] [address] | [address] | | | | | [place], [place] | | | | | | [address] | | | | | | [phone] | | | +--------+ + + + [...] | | | | | [place], | | | | | | [place] [address] | | | | | | [phone] | | | | | | | | +--------+---------+ + + + documented as of this encounter Visit Diagnoses Not on filedocumented in this encounter"
--- OUTSIDE RECORDS SUMMARY | ~2019-05-24 | XMS | Encounter Summary ---
Demographics + + + | Address | [address] | | | [place] [address] | + + + | Home Phone [...] Team Providers + +------+ + | Care Haulage Engine Operator Name | Role | Phone | [...] | | | | MR RECTAL | [place], [place] | Mailcode: | | | | | [place] | [address] | [address] | | | | | MRI, PELVIS, | Phone: | [facility] | | | | | COMBO | [phone] | Research | | | | | | Fax: | Center | | | | | | [phone] | [place], [place] | | | | | | | [address] | | | | | | | Phone: | | | | | | | [phone] | | | | | | | Fax: | | | | | | | [phone] | +--------+--------+ + + + + Reason [...] Mailcode: | | | | | [place] | [address] | [address] | | | | | MRI, PELVIS, | Phone: | [place] | | | | | COMBO | [phone] | Research | | | | | | Fax: | Center | | | | | | [phone] | [place], [place] | | | | | | | [address] | | | | | | | Phone: | | | | | | | [phone] | | | | | | | Fax: | | | | | | | [phone] | +--------+--------+ + + + + Encounter Details +--------+ + + + + | Date | Type | Department | Care Team | Description | +--------+ + + + + | 10/05/ | Hospital | [facility] | Ailyn Wolff MD | | | 2017 | Encounter | [place] at | [address] | | | | | [place] [address] | [place], | | | | | [address] | [place] [address] | | | | | [place], [place] | [phone] | | | | | [address] | | | | | | [phone] | | | +--------+ + + + [...] | | | | | [place], | | | | | | [place] [address] | | | | | | [phone] | | | | | | | [...] + + | [facility] | [address] | [place] [address] | [phone] | | IMAGING, POINT OF | | [...]
--- OUTSIDE RECORDS SUMMARY | ~2019-05-24 | XMS | Encounter Summary ---
Demographics + + + | Address | [address] | | | [place] [address] | + + + | Home Phone [...] Team Providers + +------+ + | Care Db2 Developer Name | Role | Phone | [...] Rd | | | | | | [place], [place] | | | | | | [address] | | | +--------+ + + + [...] | | | | | [place], | | | | | | [place] [address] | | | | | | [phone] | | | | | | | | +--------+---------+ + + + documented as of this encounter Visit Diagnoses Not on filedocumented in this encounter"
--- OUTSIDE RECORDS SUMMARY | ~2019-05-24 | XMS | Encounter Summary ---
Demographics + + + | Address | [address] | | | [place] [address] | + + + | Home Phone [...] Team Providers + +------+ + | Care Electrical Design Technologist Name | Role | Phone | + [...] | | [address] | [place], | | | | | Mailcode: [place] | [place] [address] | | | | | for Health and | [phone] | | | | | [facility] 2 | | | | | | [place], [place] | | | | | | [address] | | | | | | [phone] | | | +--------+ + + + [...] | | | | | [place], | | | | | | [place] [address] | | | | | | [phone] | | | | | | | | +--------+---------+ + + + documented as of this encounter Visit Diagnoses Not on filedocumented in this encounter"
--- OUTSIDE RECORDS SUMMARY | ~2019-05-24 | XMS | Encounter Summary ---
Demographics + + + | Address | [address] | | | [place] [address] | + + + | Home Phone [...] Providers + +------+ + | Care Staff Nurse Name | Role | Phone | [...] | 2017 | | Center at [facility] [address] | [address] | | | | | [address] | [place], | | | | | Mailcode: [place] | [place] [address] | | | | | for Health and | [phone] | | | | | [facility] 2 | | | | | | [place], [place] | | | | | | [address] | | | | | | [phone] | | | +--------+ + + + [...] | | | | [address] [place], | | | | | | [place] [address] | | | | | | [phone] | | | | | | | | +--------+---------+ + + + documented as of this encounter Visit Diagnoses Not on filecumented in this encounter"
--- OUTSIDE RECORDS SUMMARY | ~2019-05-24 | XMS | Encounter Summary ---
Demographics + + + | Address | [address] | | | [place] [address] | + + + | Home Phone [...] Team Providers + +------+ + | Care Personnel Assistant Name | Role | Phone | [...] | [address] | [place], | | | | | Mailcode: [place] | [place] [address] | | | | | for Health and | [phone] | | | | | [facility] 2 | | | | | | [place], [place] | | | | | | [address] | | | | | | [phone] | | | +--------+---------+ + + + [...] with primary anast omosis, placement of a 19-East Timorese Albert drain through the right lower quadrant [...] wit h primary anastomosis, placement of a 19-East Timorese Albert drain through the right lower quadrant [...] Return/Re-evaluation patient, I spent 13 minutes of jfxr-yo-dmxz time, of which m ore than half [...] | | | | | [place], | | | | | | [place] [address] | | | | | | [phone] | | | | | | | | +--------+---------+ + + + documented as of this encounter Visit Diagnoses + + | Diagnosis | + + | 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
--- OUTSIDE RECORDS SUMMARY | ~2019-05-24 | XMS | Encounter Summary ---
Demographics + + + | Address | [address] | | | [place] [address] | + + + | Home Phone [...] Team Providers + +------+ + | Care Dietary Clerk Name | Role | Phone | + +------+ + | Kristian Anderson DO | PCP | | + +------+ + Encounter Details +--------+ + + + + | Date | Type | Department | Care Team | Description | +--------+ + + + + | 12/09/ | Procedure | Diagnostic Imaging | | | | 2016 | Pass | Services at [facility] | | | | | | [address] | | | | | | [place] Mailcode: | | | | | | [address] | | | | | | [facility] | | | | | | [place], [place] | | | | | | [address] | | | | | | [phone] | | | +--------+ + + + [...] | | | | | | [place] [address] | | | | | | [phone] | | | | | | | | +--------+---------+ + + + documented as of this encounter Visit Diagnoses Not on filedocumented in this encounter"
--- OUTSIDE RECORDS SUMMARY | ~2019-05-24 | XMS | Encounter Summary ---
Demographics + + + | Address | [address] | | | [place] [address] | + + + | Home Phone [...] Team Providers + +------+ + | Care Block Mason Name | Role | Phone | + +------+ + | Silvioct Kristian | PCP | | + +------+ + Reason for Visit + + + | Reason | Comments | + + + | Outside Records | CT chest, abdomen, pelvis September 2017 and MRI September 2017 St | | Received | [facility]. Images in [employer] | + + + Encounter Details +--------+ + + + + | Date | Type | Department | Care Team | Description | +--------+ + + + + | 01/04/ | Abstract | Digestive Health | Ailyn Wolff MD | Outside Records | | 2018 | | Center at [facility] [address] | [address] | Received (CT chest, | | | | [address] | [address] [place], | abdomen, pelvis | | | | Mailcode: Center | [place] [address] | September 2017 and MRI | | | | for Health and | [phone] | September 2017 St | | | | [facility] 2 | | [facility]. | | | | [place], [place] | | Images in IMPAX) | | | | [address] | | | | | | [phone] | | | +--------+ + + + [...] | | | | | | [place] [address] | | | | | | [phone] | | | | | | | | +--------+---------+ + + + documented as of this encounter Visit Diagnoses Not on filedocumented in this encounter"
--- OUTSIDE RECORDS SUMMARY | ~2019-05-24 | XMS | Encounter Summary ---
Demographics + + + | Address | [address] | | | [place] [address] | + + + | Home Phone [...] Team Providers + +------+ + | Care Developer Evangelist Name | Role | Phone | + [...] Rd | | | | | | [place], [place] | | | | | | [address] | | | +--------+ + + + [...] | | | | [place]mita Hines [facility] | | | | | | [place] [address] | | | | | | [phone] | | | | | | | [...]
--- OUTSIDE RECORDS SUMMARY | ~2019-05-24 | XMS | Encounter Summary ---
Demographics + + + | Address | [address] | | | [place] [address] | + + + | Home Phone [...] Team Providers + +------+ + | Care Agricultural Engineering Teacher Name | Role | Phone | [...] | | 2018 | | Center at [facility] [address] | [address] | Review | | | | [address] | [place], | | | | | Mailcode: [place] | [place] [address] | | | | | for Health and | [phone] | | | | | [facility] 2 | | | | | | [place], [place] | | | | | | [address] | | | | | | [phone] | | | +--------+ + + + [...] | | | | [place], | | | | | | [place] [address] | | | | | | [phone] | | | | | | | | +--------+---------+ + + + documented as of this encounter Visit Diagnoses Not on filedocumented in this encounter"
--- OUTSIDE RECORDS SUMMARY | ~2019-05-24 | XMS | Encounter Summary ---
Demographics + + + | Address | [address] | | | [place] [address] | + + + | Home Phone [...] Team Providers + +------+ + | Care Bill Adjuster Name | Role | Phone | [...] | Encounter | Center at [facility] [address] | [address] | | | | | [address] | [place] H[place], | | | | | Mailcode: [place] | [place] [address] | | | | | for Health and | [phone] | | | | | [facility] 2 | | | | | | [place], [place] | | | | | | [address] | | | | | | [phone] | | | +--------+ + + + [...] | | | | | [place], | | | | | | [place] [address] | | | | | | [phone] | | | | | | | | +--------+---------+ + + + documented as of this encounter Visit Diagnoses Not on filedocumented in this encounter"
--- OUTSIDE RECORDS SUMMARY | ~2019-05-24 | XMS | Encounter Summary ---
Demographics + + + | Address | [address] | | | [place] [address] | + + + | Home Phone [...] Team Providers + +------+ + | Care Laundry Machine Tender Name | Role | Phone [...] | | FACUN[address] Briggs | Amita Hines [place], | | | | | Mailcode: [place] | [place] [address] | | | | | for Health and | [phone] | | | | | [facility] 2 | | | | | | [place], [place] | | | | | | [address] | | | | | | [phone] | | | +--------+ + + + [...] | | | | | Amita Hines [place], | | | | | | [place] [address] | | | | | | [phone] | | | | | | | | +--------+---------+ + + + documented as of this encounter Visit Diagnoses Not on filedocumented in this encounter"
--- OUTSIDE RECORDS SUMMARY | ~2019-05-24 | XMS | Encounter Summary ---
Demographics + + + | Address | [address] | | | [place] [address] | + + + | Home Phone [...] Team Providers + +------+ + | Care Gamewell Operator Name | Role | Phone | [...] | FACUNDO Guillermo Briggs | [address] [place], | | | | | Mailcode: [place] | [place] [address] | | | | | for Health and | [phone] | | | | | [facility], [facility] 2 | | | | | | [place], [place] | | | | | | [address] | | | | | | [phone] | | | +--------+---------+ + + + [...] Instructions Patient Instructions Ailyn Wloff MD - 07/27/2017 3:40 PM PSTPlan: I [...] bleeding on 07/19/16 went to the [facility] ED CT abdomen/pelvis with IV [...] from anal verge presented at the [facility] Multidisciplinary GI Oncology Conference on [...] Mendoza pouch staple line presented at [facility] Multidisciplinary GI Oncology Conference on [...] (OSH, 05/17/17) close to pelvic sidewall [facility] Multidisciplinary GI Oncology Conference (06/02/17) [...] with primary anast omosis, placement of a 19-Tongan Albert drain through [...] wit h primary anastomosis, placement of a 19-Tongan Albert [...] Return/Re-evaluation patient, I spent 19 minutes of qcxo-ah-lzxq time, of which m ore than half [...] | | | | | [address]mita [address] [place], | | | | | | [place] [address] | | | | | | [phone] | | | | | | | | +--------+---------+ + + + documented as of this encounter Visit Diagnoses + + | Diagnosis | + + | 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
--- OUTSIDE RECORDS SUMMARY | ~2019-05-24 | XMS | Encounter Summary ---
Demographics + + + | Address | [address] | | | [place] [address] | + + + | Home Phone [...] Team Providers + +------+ + | Care Exterior Door Installer Name | Role | Phone | + +------+ + | Kristian Anderson DO | PCP | | + +------+ + Encounter Details +--------+ + + + + | Date | Type | Department | Care Team | Description | +--------+ + + + + | 07/19/ | Case Briefer | Digestive Health | Trinidad Garcia, | | | 2016 | | Center at [facility] 3485 | AGACNP [address] | | | | | [address] | [place] [facility] [place] | | | | | Mailcode: [place] | [address] | | | | | for Health and | | | | | | [facility], [facility] 2 | | | | | | [facility] [place] | | | | | | [address] | | | | | | [phone] | | | +--------+ + + + [...] | | | | | [address]mita [address]ines [place], | | | | | | [place] [address] | | | | | | [phone] | | | | | | | | +--------+---------+ + + + documented as of this encounter Visit Diagnoses Not on filedocumented in this encounter"
--- OUTSIDE RECORDS SUMMARY | ~2019-05-24 | XMS | Encounter Summary ---
Demographics + + + | Address | [address] | | | [place] [address] | + + + | Home Phone [...] Team Providers + +------+ + | Care Hydroelectric Systems Technician Name | Role | Phone | [...] | | | | MR RECTAL | [place], [place] | Mailcode: | | | | | [place] | [address] | [address] | | | | | MRI, PELVIS, | Phone: | [facility] | | | | | COMBO | [phone] | Research | | | | | | Fax: | Center | | | | | | [phone] | [place], [place] | | | | | | | [address] | | | | | | | Phone: | | | | | | | [phone] | | | | | | | Fax: | | | | | | | [phone] | +--------+--------+ + + + + Reason [...] | | | | MR RECTAL | [facility] [place] | Mailcode: | | | | | [place] | [address] | [address] | | | | | MRI, PELVIS, | Phone: | [place] | | | | | COMBO | [phone] | Research | | | | | | Fax: | Center | | | | | | [phone] | [place], [place] | | | | | | | [address] | | | | | | | Phone: | | | | | | | [phone] | | | | | | | Fax: | | | | | | | [phone] | +--------+--------+ + + + + Encounter Details +--------+ + + + + | Date | Type | Department | Care Team | Description | +--------+ + + + + | 03/02/ | Hospital | Diagnostic Imaging | Ailyn Wolff MD | | | 2017 | Encounter | Services at [facility] | [address] | | | | | [address] | [address]mita [address] [place], | | | | | Amita Hines Mailcode: | [place] [address] | | | | | [address] [place] | [phone] | | | | | [facility] | | | | | | [place], [place] | | | | | | [address] | | | | | | [phone] | | | +--------+ + + + [...] | | | | | [address] [place], | | | | | | [place] [address] | | | | | | [phone] | | | | | | | [...]
--- OUTSIDE RECORDS SUMMARY | ~2019-05-24 | XMS | Encounter Summary ---
Demographics + + + | Address | [address] | | | [place] [address] | + + + | Home Phone [...] Team Providers + +------+ + | Care Programmer Analyst Health It Name | Role | Phone | + [...] 2019 | | Center at [facility] 3485 | [address] | Received | | | | FACUN[address] Briggs | Amita Hines [place], | | | | | Mailcode: [place] | [place] [address] | | | | | for Health and | [phone] | | | | | [facility] 2 | | | | | | [place], [place] | | | | | | [address] | | | | | | [phone] | | | +--------+ + + + [...] | | | | | Amita Hines [place], | | | | | | [place] [address] | | | | | | [phone] | | | | | | | | +--------+---------+ + + + documented as of this encounter Visit Diagnoses Not on filedocumented in this encounter"
--- OUTSIDE RECORDS SUMMARY | ~2019-05-24 | XMS | Encounter Summary ---
Demographics + + + | Address | [address] | | | [place] [address] | + + + | Home Phone [...] Team Providers + +------+ + | Care Clinic Scheduler Name | Role | Phone | + [...] Rd | | | | | | [place], [place] | | | | | | [address] | | | +--------+ + + + [...] | | | | | | [place] [address] | | | | | | [phone] | | | | | | | [...]
--- OUTSIDE RECORDS SUMMARY | ~2019-05-24 | XMS | Encounter Summary ---
Demographics + + + | Address | [address] | | | [place] [address] | + + + | Home Phone [...] Providers + +------+ + | Care Copy Editor Name | Role | Phone | + +------+ + | Kristian Anderson DO | PCP | | + +------+ + Encounter Details +--------+ + + + + | Date | Type | Department | Care Team | Description | +--------+ + + + + | 04/21/ | Procedure | 6A Intra Op [facility] | | | | 2016 | Pass | [facility] | | | | | | Admitting Desk | | | | | | Located on the 9th | | | | | | floor [address] | | | | | | [address] | | | | | | [place], [place] | | | | | | [address] | | | +--------+ + + + [...] | | | | | Amita Hines [place], | | | | | | [place] [address] | | | | | | [phone] | | | | | | | | +--------+---------+ + + + documented as of this encounter Visit Diagnoses Not on filedocumented in this encounter"
--- OUTSIDE RECORDS SUMMARY | ~2019-05-24 | XMS | Encounter Summary ---
Demographics + + + | Address | [address] | | | [place] [address] | + + + | Home Phone [...] Team Providers + +------+ + | Care Is Analyst Name | Role | Phone | [...] | | 2018 | | Center at [facility] [address]85 | [address] | - Disregard | | | | FACUNDO Briggs | [address] [place], | | | | | Mailcode: [place] | [place] [address] | | | | | for Health and | [phone] | | | | | [facility] 2 | | | | | | [place], [place] | | | | | | [address] | | | | | | [phone] | | | +--------+ + + + [...] | | | | | Amita [address] [place], | | | | | | [place] [address] | | | | | | [phone] | | | | | | | | +--------+---------+ + + + documented as of this encounter Visit Diagnoses Not on filedocumented in this encounter"
--- OUTSIDE RECORDS SUMMARY | ~2019-05-24 | XMS | Encounter Summary ---
Demographics + + + | Address | [address] | | | [place] [address] | + + + | Home Phone [...] Providers + +------+ + | Care Precision Instrument Maker Name | Role | Phone [...] Outside Records | | 2017 | | [place] at [facility] 3485 | [address] | Received (UA | | | | FACUNDO Briggs | Amita Hines [place], | 07/14/2017) | | | | Mailcode: [place] | [place] [address] | | | | | for Health and | [phone] | | | | | [facility] 2 | | | | | | [place], [place] | | | | | | [address] | | | | | | [phone] | | | +--------+ + + + [...] | | | | | | [place] [address] | | | | | | [phone] | | | | | | | | +--------+---------+ + + + documented as of this encounter Visit Diagnoses Not on filedocumented in this encounter"
--- OUTSIDE RECORDS SUMMARY | ~2019-05-24 | XMS | Encounter Summary ---
Demographics + + + | Address | [address] | | | [place] [address] | + + + | Home Phone [...] Providers + +------+ + | Care Sales Training Coordinator Name | Role | Phone | + +------+ + | Silvioct Kristian | PCP | | + +------+ + Encounter Details +--------+------+ + + + | Date | Type | Department | Care Team | Description | +--------+------+ + + + | 08/28/ | Lab | Laboratory at [facility] | | SABINA chung [facility] ([facility]) | | 2019 | | [address] | | | | | | [place], [place] | | | | | | [address] | | | | | | [phone] | | | +--------+------+ + + + [...] | | | | | Suzy Hines [place], | | | | | | [place] [address] | | | | | | [phone] | | | | | | | [...] | + + + + + | [facility] | [address] | [place] [address] | | | SERVICES, CORE | [address] | | | + + + + + documented in this encounter Visit Diagnoses + + | Diagnosis | + + | CA of rectum (HCC) Malignant neoplasm of rectum | + + documented in this encounter"
--- OUTSIDE RECORDS SUMMARY | ~2019-05-24 | XMS | Encounter Summary ---
Demographics + + + | Address | [address] | | | [place] [address] | + + + | Home Phone [...] Team Providers + +------+ + | Care Rental Sales Representative Name | Role | Phone | + +------+ + | Kristian Anderson DO | PCP | | + +------+ + Encounter Details +--------+ + + + + | Date | Type | Department | Care Team | Description | +--------+ + + + + | 09/22/ | Telephone | Digestive Health | Ailyn Wolff MD | | | 2017 | | [place] at [facility] [address] | [address] | | | | | [address] | Amita Hines [place], | | | | | Mailcode: [place] | [place] [address] | | | | | for Health and | [phone] | | | | | [place] [address] | | | | | | [place], [place] | | | | | | [address] | | | | | | [phone] | | | +--------+ + + + [...] | | 2018 | Visit | | [address] | | | | | | Amita Hines [place], | | | | | | [place] [address] | | | | | | [phone] | | | | | | | [...] | PATHOLOGY | | | | Institution: [facility] | | | | | | [facility], | | | | | | [place], [place] | | | | | | [id number] Accession | | | | | | Number: [id number] | | | | | | Collection Date: | | | | | | 09/02/2016Sublabeled | | | | | | H&E A to D | | | | | | 4 | | | | | | Final Pathologic | | | | | | Diagnosis:Multiple | | | | | | specimens A to D | | | | | | ([id number]; 09/02/16):Low | | | | | | [...] | + + + + + | [facility] | [address] | [place] [address] | | | PATHOLOGY | [address] | | | + + + + + documented in this encounter Visit Diagnoses + + | Diagnosis | + + | Rectal cancer (HCC) - Primary Malignant neoplasm of rectum | + + documented in this encounter"
--- OUTSIDE RECORDS SUMMARY | ~2019-05-24 | XMS | Encounter Summary ---
Demographics + + + | Address | [address] | | | [place] [address] | + + + | Home Phone [...] Team Providers + +------+ + | Care Telecom Specialist Name | Role | Phone | [...] | | 2018 | | Center at [facility] [address] | [address] | Review | | | | [address] | Amita Hines [place], | | | | | Mailcode: [place] | [place] [address] | | | | | for Health and | [phone] | | | | | [facility] 2 | | | | | | [place], [place] | | | | | | [address] | | | | | | [phone] | | | +--------+ + + + [...] | | | | | Amita Hines [place], | | | | | | [place] [address] | | | | | | [phone] | | | | | | | | +--------+---------+ + + + documented as of this encounter Visit Diagnoses Not on filedocumented in this encounter"
--- OUTSIDE RECORDS SUMMARY | ~2019-05-24 | XMS | Encounter Summary ---
Demographics + + + | Address | [address] | | | [place] [address] | + + + | Home Phone [...] Providers + +------+ + | Care Sales Agent Protective Service Name | Role | Phone | + [...] | | | | | Amita Hines [place], | | | | | | [place] [address] | | | | | | [phone] | | | | | | | | +--------+---------+ + + + documented as of this encounter Visit Diagnoses Not on filedocumented in this encounter"
--- OUTSIDE RECORDS SUMMARY | ~2019-05-24 | XMS | Encounter Summary ---
Demographics + + + | Address | [address] | | | [place] [address] | + + + | Home Phone [...] Team Providers + +------+ + | Care Merchandising Director Name | Role | Phone | [...] | | | | CT CHEST, | [place], [place] | Mailcode: | | | | | ABDOMEN AND | [address] | [address] [facility] | | | | | [address] | Phone: | Hospital | | | | | [facility] | [phone] | [place], [place] | | | | | CAT SCAN OF | Fax: | [address] | | | | | CHEST | [phone] | Phone: | | | | | [facility] | | [phone] | | | | | CT | | Fax: | | | | | ABDOMEN&PELV | | [phone] | | | | | IS | | | | | | | W/CONTRAST | | | +--------+--------+ + + + + Encounter Details +--------+ + + + + | Date | Type | Department | Care Team | Description | +--------+ + + + + | 04/19/ | Cut Roll Machine Offbearer | Digestive Health | Ailyn Wolff MD | Colorectal cancer | | 2017 | | [place] at [facility] [address] | [address] | (HCC) (Primary Dx) | | | | [address] | Amita Hines [place], | | | | | Mailcode: [place] | [place] [address] | | | | | for Health and | [phone] | | | | | [facility], Building 2 | | | | | | [place], [place] | | | | | | [address] | | | | | | [phone] | | | +--------+ + + + [...] | | | | | Amita Hines [place], | | | | | | [place] [address] | | | | | | [phone] | | | | | | | [...]
--- OUTSIDE RECORDS SUMMARY | ~2019-05-24 | XMS | Encounter Summary ---
Demographics + + + | Address | [address] | | | [place] [address] | + + + | Home Phone [...] Team Providers + +------+ + | Care Software Sales Consultant Name | Role | Phone [...] | | | | [facility] | [place], [place] | | | | | [place] [address] | [address] | | | | | [place], [place] | | | | | | [address] | | | | | | [phone] | | | +--------+ + + + [...] | | 18 | | | | 732397, Skin prep: | | | | | | | 3M 3344 (30/mo), Adh | | | | | | | Rem HO 7760 | | | | | | | (1box/mo), Rings: HO | | | | | | | 8805 (10/mo), | | | | | | | [place]odorant: [place] [address] | | | | | | | (60/mo), Pwdr: CT | | | | | | | [id number] (1oz/mo), | | | | | | | Belt: Lrg (2/mo) | | | | | | | and Irrigation [place] | | | | | | | 447290, [place] | | | | | | | 713733 | | | | | + + [...] | | | | | Amita Hines [place], | | | | | | [place] [address] | | | | | | [phone] | | | | | | | | +--------+---------+ + + + documented as of this encounter Visit Diagnoses Not on filedocumented in this encounter"
--- OUTSIDE RECORDS SUMMARY | ~2019-05-24 | XMS | Encounter Summary ---
Demographics + + + | Address | [address] | | | [place] [address] | + + + | Home Phone [...] Team Providers + +------+ + | Care Remote Sensing Specialist Name | Role | Phone | [...] | [address] | Amita Hines [place], | | | | | Mailcode: Center | [place] [address] | | | | | for Health and | [phone] | | | | | [facility] 2 | | | | | | [place], [place] | | | | | | [address] | | | | | | [phone] | | | +--------+ + + + [...] | | | | Amita Hines [place], | | | | | | [place] [address] | | | | | | [phone] | | | | | | | | +--------+---------+ + + + documented as of this encounter Visit Diagnoses Not on filedocumented in this encounter"
--- OUTSIDE RECORDS SUMMARY | ~2019-05-24 | XMS | Encounter Summary ---
Demographics + + + | Address | [address] | | | [place] [address] | + + + | Home Phone [...] Providers + +------+ + | Care Administrative Services Manager Name | Role | Phone [...] | | | | Amita H[place], | | | | | | [place] [address] | | | +--------+ + + + [...] | | | | Amita H[place], | | | | | | [place] [address] | | | | | | [phone] | | | | | | | | +--------+---------+ + + + documented as of this encounter Visit Diagnoses Not on filedocumented in this encounter"
--- OUTSIDE RECORDS SUMMARY | ~2019-05-24 | XMS | Encounter Summary ---
Demographics + + + | Address | [address] | | | [place] [address] | + + + | Home Phone [...] Team Providers + +------+ + | Care Barge Pilot Name | Role | Phone | [...] | 2019 | Encounter | Center at [facility] [address] | [address] | | | | | [address] | Amita Hines [facility] | | | | | Mailcode: [place] | [place] [address] | | | | | for Health and | [phone] | | | | | [place] [address] | | | | | | [place], [place] | | | | | | [address] | | | | | | [phone] | | | +--------+ + + + [...] | | | | | Amita Hines [place], | | | | | | [place] [address] | | | | | | [phone] | | | | | | | | +--------+---------+ + + + documented as of this encounter Visit Diagnoses Not on filedocumented in this encounter"
--- OUTSIDE RECORDS SUMMARY | ~2019-05-24 | XMS | Encounter Summary ---
Demographics + + + | Address | [address] | | | [place] [address] | + + + | Home Phone [...] Team Providers + +------+ + | Care Fleet Manager Name | Role | Phone | + +------+ + | Kristian Anderson DO | PCP | | + +------+ + Encounter Details +--------+ + + + + | Date | Type | Department | Care Team | Description | +--------+ + + + + | 10/14/ | Telephone | Digestive Health | Ailyn Wolff MD | | | 2017 | | [place] at [facility] [address] | [address] | | | | | [address] | Amita Hines [place], | | | | | Mailcode: [place] | [place] [address] | | | | | for Health and | [phone] | | | | | [place] [address] | | | | | | [place], [place] | | | | | | [address] | | | | | | [phone] | | | +--------+ + + + [...] | | | | | [address] [place], | | | | | | [place] [address] | | | | | | [phone] | | | | | | | | +--------+---------+ + + + documented as of this encounter Visit Diagnoses Not on filedocumented in this encounter"
--- OUTSIDE RECORDS SUMMARY | ~2019-05-24 | XMS | Encounter Summary ---
Demographics + + + | Address | [address] | | | [place] [address] | + + + | Home Phone [...] Team Providers + +------+ + | Care Hydroponics Grower Name | Role | Phone | [...] | | | 2016 | Event | [facility] | MD Brock [address] | | | | | Admitting Desk | [address] | | | | | Located on the 9 | [place], [place] | | | | | [facility] [address] | [address] | | | | | [address] | [phone] | | | | | [place], [place] | | | | | | [address] | [place] | | | | | | LASHAWN Loja [address] | | | | | | [address] | | | | | | [place], [place] | | | | | | [address] | | | | | | [phone] | | | | | | | | +--------+ + + + + Anesthesia Record + + + + + | Procedure Name | Responsible | Anesthesia Start | Anesthesia Stop Time | | | Anesthesiologist | Time | | + + + + + | LOW ANTERIOR | Gerry Mendez, | 06/30/17720 | 06/30/17 7995 | | RESECTION, POSTERIOR | MD | [...] | | IV | 07/02/17; 1217 | VENEER MEASURER | | +--------+ + + + | [...] | | | | | Amita Hines [place], | | | | | | [place] [address] | | | | | | [phone] | | | | | | | [...] SUPRIYA KO | | | IPerformed by VENEER MEASURER: LA NENA DOMÍNGUEZ Attempt X2 by LASHAWN. [...] PST | | | | | Until [facility] 06/30/17 at 1712 | | | [...] PST | | | | | Until [facility] 06/30/17 at 1712 | iology | [...] 30 mg | | | | Starting [facility] 06/30/17 at 0809, | | 17 [...]
--- OUTSIDE RECORDS SUMMARY | ~2019-05-24 | XMS | Clinical Summary ---
Demographics + + + | Address | [address] | | | [place] [address] | + + + | Home Phone [...] Author + + + | Author | [facility] | + + + | Organization | [facility] | + + + | Address | Unknown | + + + | Phone | Unavailable | + + + Support + + +---------+ + | Name | Relationship | Address | Phone | + + +---------+ + | Darrius Quintana | ECON | Unknown | | + + +---------+ + Care Team Providers + +------+ + | Care Shingle Trimmer Name | Role | Phone | + +------+ + | Kristian Anderson DO | PCP | | + +------+ + Source Comments CHAPIN is fully live on both [facility] and [facility] Allergies + + + + + + [...] | | | e | | | ED-JE-EN). | | | | | | | | ointment | | | | | | + + + +---------+------+------+-------+ | Ostomy Supplies | Colostomy | 1 each | 11 | 11/0 | | Activ | | misc | [id number]: CO | | | 20 | | e | | | [id number], Skin prep: | | | 18 | | | | | 3M 3344 (30/mo), Adh | | | | | | | | Rem HO 7760 | | | | | | | | (1box/mo), Rings: HO | | | | | | | | 8805 (10/mo), | | | | | | | | [place]odorant[place] [address] | | | | | | | | (60/mo), Pwdr: CT | | | | | | | | [id number] (1oz/mo), | | | | | | | | Belt: Lrg (2/mo) | | | | | | | | and Irrigation [place] | | | | | | | | 486166, [place] | | | | | | | | 159931 | | | | | | + [...] Heart Attack | Father | | from [place] at age 52 | + + +------+ [...] | | | | | Suzy iH[place], | | | | | | [place] [address] | | | | | | [phone] | | | | | | | [...] CHAPIN JESSICA | [address] | [place] [address] | | | CAR TELLO | [address]ZY [...] | MEDICA | xxxxxxxxxxx | 12/24/19 | [phone] | [address] | Medica | | | RE A & | | 19-Pre | 1 | [address] | re | | | [address] | | sent | | [place] | | | | | | | | [address] | | + +--------+ +--------+ + +--------+ [...] guerda | | | 8 (Home) | [address] | + +--------+ +--------+ + + Advance [...]
--- OUTSIDE RECORDS SUMMARY | ~2019-05-24 | XMS | Encounter Summary ---
Demographics + + + | Address | [address] | | | [place] [address] | + + + | Home Phone [...] Providers + +------+ + | Care Test Facility Engineer Name | Role | Phone | [...] | [address] | [place], | | | | | Mailcode: [place] | [place] [address] | | | | | for Health and | [phone] | | | | | [facility] 2 | | | | | | [place], [place] | | | | | | [address] | | | | | | [phone] | | | +--------+---------+ + + + [...] rectal bleeding on 07/19/16 went to the [facility] ED CT abdomen/pelvis with IV [...] with primary anast omosis, placement of a 19-Equatorial Guinean Albert drain through the right lower quadrant [...] wit h primary anastomosis, placement of a 19-Equatorial Guinean Albert drain through the right lower quadrant [...] Return/Re-evaluation patient, I spent 13 minutes of cmth-rs-umjg time, of which m ore than half the time was spent in counseling. 4 minute document review [facility] umented in this encounter Plan of Treatment +--------+---------+ + + + | Date | Type | Specialty | Care Team | Description | +--------+---------+ + + + | 06/18/ | Office | Surgery | Ailyn Wolff MD | | | 2018 | Visit | | [address] | | | | | | [place], | | | | | | [place] [address] | | | | | | [phone] | | | | | | | | +--------+---------+ + + + documented as of this encounter Visit Diagnoses + + | Diagnosis | + + | 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
--- OUTSIDE RECORDS SUMMARY | ~2019-05-24 | XMS | Encounter Summary ---
Demographics + + + | Address | [address] | | | [place] [address] | + + + | Home Phone [...] Team Providers + +------+ + | Care Grants Administrator Name | Role | Phone | + +------+ + | Kristian Anderson DO | PCP | | + +------+ + Encounter Details +--------+ + + + + | Date | Type | Department | Care Team | Description | +--------+ + + + + | 07/19/ | Tabular Typist | Digestive Health | Trinidad Garcia, | | | 2016 | | Center at [facility] [address] | AGACNP [address] | | | | | [address] | [place] [facility] [place] | | | | | Mailcode: [place] | [address] | | | | | for Health and | | | | | | [facility], [facility] 2 | | | | | | [facility] [place] | | | | | | [address] | | | | | | [phone] | | | +--------+ + + + [...] | | | | | [place], | | | | | | [place] [address] | | | | | | [phone] | | | | | | | | +--------+---------+ + + + documented as of this encounter Visit Diagnoses Not on filedocumented in this encounter"
--- OUTSIDE RECORDS SUMMARY | ~2019-05-24 | XMS | Encounter Summary ---
Demographics + + + | Address | [address] | | | [place] [address] | + + + | Home Phone [...] Team Providers + +------+ + | Care Airport Guide Name | Role | Phone | + [...] | 2018 | Encounter | Center at [facility] [address] | [address] | | | | | [address] | [place], | | | | | Mailcode: [place] | [place] [address] | | | | | for Health and | [phone] | | | | | [facility], [facility] 2 | | | | | | [place], [place] | | | | | | [address] | | | | | | [phone] | | | +--------+ + + + [...] | | | | | [place], | | | | | | [place] [address] | | | | | | [phone] | | | | | | | | +--------+---------+ + + + documented as of this encounter Visit Diagnoses Not on filedocumented in this encounter"
--- OUTSIDE RECORDS SUMMARY | ~2019-05-24 | XMS | Encounter Summary ---
Demographics + + + | Address | [address] | | | [place] [address] | + + + | Home Phone [...] Providers + +------+ + | Care Paper Coater Name | Role | Phone | + [...] | | 2017 | | Center at [facility] [address] | [address] | Review | | | | [address] | [place], | | | | | Mailcode: [place] | [place] [address] | | | | | for Health and | [phone] | | | | | [facility] 2 | | | | | | [place], [place] | | | | | | [address] | | | | | | [phone] | | | +--------+ + + + [...] | | | | | [place], | | | | | | [place] [address] | | | | | | [phone] | | | | | | | | +--------+---------+ + + + documented as of this encounter Visit Diagnoses Not on filedocumented in this encounter"
--- OUTSIDE RECORDS SUMMARY | ~2019-05-24 | XMS | Encounter Summary ---
Demographics + + + | Address | [address] | | | [place] [address] | + + + | Home Phone [...] Team Providers + +------+ + | Care Silk Presser Name | Role | Phone | + [...] | 2017 | Encounter | Center at [facility] [address] | [address] | | | | | [address] | [place], | | | | | Mailcode: [place] | [place] [address] | | | | | for Health and | [phone] | | | | | [facility], [facility] 2 | | | | | | [place], [place] | | | | | | [address] | | | | | | [phone] | | | +--------+ + + + [...] | | | | | [place], | | | | | | [place] [address] | | | | | | [phone] | | | | | | | | +--------+---------+ + + + documented as of this encounter Visit Diagnoses Not on filedocumented in this encounter"
--- OUTSIDE RECORDS SUMMARY | ~2019-05-24 | XMS | Encounter Summary ---
Demographics + + + | Address | [address] | | | [place] [address] | + + + | Home Phone [...] Team Providers + +------+ + | Care Holistic Nutritionist Name | Role | Phone | [...] Report | | 2017 | on | [place] at [facility] [address] | [address] | (GI Oncology | | | | [address] | [place], | Planning Conference) | | | | Mailcode: [place] | [place] [address] | | | | | for Health and | [phone] | | | | | [facility] 2 | | | | | | [place], [place] | | | | | | [address] | | | | | | [phone] | | | +--------+ + + + [...] | | | | | [place], | | | | | | [place] [address] | | | | | | [phone] | | | | | | | | +--------+---------+ + + + documented as of this encounter Visit Diagnoses Not on filedocumented in this encounter"
--- OUTSIDE RECORDS SUMMARY | ~2019-05-24 | XMS | Encounter Summary ---
Demographics + + + | Address | [address] | | | [place] [address] | + + + | Home Phone [...] Team Providers + +------+ + | Care Tape Recorder Repairer Name | Role | Phone | [...] Encounter | Center at [facility] [address] | [address] | | | | | [address] | [place], | | | | | Mailcode: [place] | [place] [address] | | | | | for Health and | [phone] | | | | | [facility], [facility] 2 | | | | | | [place], [place] | | | | | | [address] | | | | | | [phone] | | | +--------+ + + + [...] | | | | | [place], | | | | | | [place] [address] | | | | | | [phone] | | | | | | | | +--------+---------+ + + + documented as of this encounter Visit Diagnoses Not on filedocumented in this encounter"
--- OUTSIDE RECORDS SUMMARY | ~2019-05-24 | XMS | Encounter Summary ---
Demographics + + + | Address | [address] | | | [place] [address] | + + + | Home Phone [...] Providers + +------+ + | Care Continuous Still Operator Name | Role | Phone | [...] | | | | [facility] | [place], [place] | | | | | [place] [address] | [address] | | | | | [place], [place] | | | | | | [address] | | | | | | [phone] | | | +--------+ + + + [...] | | | | [place], | | | | | | [place] [address] | | | | | | [phone] | | | | | | | | +--------+---------+ + + + documented as of this encounter Visit Diagnoses Not on filedocumented in this encounter"
--- OUTSIDE RECORDS SUMMARY | ~2019-05-24 | XMS | Encounter Summary ---
Demographics + + + | Address | [address] | | | [place] [address] | + + + | Home Phone [...] Providers + +------+ + | Care Gas Cutter Name | Role | Phone | [...] | 2018 | Encounter | Center at [facility] [address] | [address] | | | | | F[address]gs | [place] H[place], | | | | | Mailcode: [place] | [place] [address] | | | | | for Health and | [phone] | | | | | [facility], [facility] 2 | | | | | | [place], [place] | | | | | | [address] | | | | | | [phone] | | | +--------+ + + + [...] | | | | | [place], | | | | | | [place] [address] | | | | | | [phone] | | | | | | | | +--------+---------+ + + + documented as of this encounter Visit Diagnoses Not on filedocumented in this encounter"
--- OUTSIDE RECORDS SUMMARY | ~2019-05-24 | XMS | Encounter Summary ---
Demographics + + + | Address | [address] | | | [place] [address] | + + + | Home Phone [...] Team Providers + +------+ + | Care Airframe Design Engineer Name | Role | Phone [...] | Question | | 2016 | | [place] at [facility] [address] | [address] | | | | | [address] | [place], | | | | | Mailcode: [place] | [place] [address] | | | | | for Health and | [phone] | | | | | [facility] 2 | | | | | | [place], [place] | | | | | | [address] | | | | | | [phone] | | | +--------+ + + + [...] | | | | | [place], | | | | | | [place] [address] | | | | | | [phone] | | | | | | | | +--------+---------+ + + + documented as of this encounter Visit Diagnoses Not on filedocumented in this encounter"
--- OUTSIDE RECORDS SUMMARY | ~2019-05-24 | XMS | Encounter Summary ---
Demographics + + + | Address | [address] | | | [place] [address] | + + + | Home Phone [...] Team Providers + +------+ + | Care E Tailer Name | Role | Phone | + [...] | | 2017 | | Center at [facility] [address] | [address] | Review | | | | [address] | [place] H[place], | | | | | Mailcode: [place] | [place] [address] | | | | | for Health and | [phone] | | | | | [facility] 2 | | | | | | [place], [place] | | | | | | [address] | | | | | | [phone] | | | +--------+ + + + [...] | | | | | [place], | | | | | | [place] [address] | | | | | | [phone] | | | | | | | | +--------+---------+ + + + documented as of this encounter Visit Diagnoses Not on filedocumented in this encounter"
--- OUTSIDE RECORDS SUMMARY | ~2019-05-24 | XMS | Encounter Summary ---
Demographics + + + | Address | [address] | | | [place] [address] | + + + | Home Phone [...] | | 2018 | | Center at [facility] [address] | [address] | Review | | | | F[address]gs | [place], | | | | | Mailcode: [place] | [place] [address] | | | | | for Health and | [phone] | | | | | [facility] 2 | | | | | | [place], [place] | | | | | | [address] | | | | | | [phone] | | | +--------+ + + + [...] | | | | | [place], | | | | | | [place] [address] | | | | | | [phone] | | | | | | | | +--------+---------+ + + + documented as of this encounter Visit Diagnoses Not on filedocumented in this encounter"
--- OUTSIDE RECORDS SUMMARY | ~2019-05-24 | XMS | Encounter Summary ---
Demographics + + + | Address | [address] | | | [place] [address] | + + + | Home Phone [...] Team Providers + +------+ + | Care Respiratory Care Program Director Name | Role | Phone | + +------+ + | Kristian Anderson DO | PCP | | + +------+ + Encounter Details +--------+ + + + + | Date | Type | Department | Care Team | Description | +--------+ + + + + | 04/19/ | Procedure | Diagnostic Imaging | | | | 2016 | Pass | Services at [facility] | | | | | | [address] | | | | | | [place] Mailcode: | | | | | | [address] [facility] | | | | | | [place], [place] | | | | | | [address] | | | | | | [phone] | | | +--------+ + + + [...] | | | | | [place], | | | | | | [place] [address] | | | | | | [phone] | | | | | | | | +--------+---------+ + + + documented as of this encounter Visit Diagnoses Not on filedocumented in this encounter"
--- OUTSIDE RECORDS SUMMARY | ~2019-05-24 | XMS | Encounter Summary ---
Demographics + + + | Address | [address] | | | [place] [address] | + + + | Home Phone [...] Team Providers + +------+ + | Care Diesel Electrician Name | Role | Phone | + +------+ + | Kristian Anderson DO | PCP | | + +------+ + Encounter Details +--------+ + + + + | Date | Type | Department | Care Team | Description | +--------+ + + + + | 05/05/ | Telephone | Digestive Health | Ailyn Wolff MD | | | 2017 | | [place] at [facility] [address] | [address] | | | | | [address] | [place], | | | | | Mailcode: [place] | [place] [address] | | | | | for Health and | [phone] | | | | | [facility] 2 | | | | | | [place], [place] | | | | | | [address] | | | | | | [phone] | | | +--------+ + + + [...] | | | | | [place], | | | | | | [place] [address] | | | | | | [phone] | | | | | | | | +--------+---------+ + + + documented as of this encounter Visit Diagnoses Not on filedocumented in this encounter"
--- OUTSIDE RECORDS SUMMARY | ~2019-05-24 | XMS | Encounter Summary ---
Demographics + + + | Address | [address] | | | [place] [address] | + + + | Home Phone [...] Team Providers + +------+ + | Care Accounting Office Manager Name | Role | Phone | + +------+ + | Kristian Anderson DO | PCP | | + +------+ + Encounter Details +--------+ + + + + | Date | Type | Department | Care Team | Description | +--------+ + + + + | 10/14/ | Telephone | Digestive Health | Ailyn Wolff MD | | | 2017 | | [place] at [facility] [address] | [address] | | | | | [address] | [place]mit[place] Hines [place], | | | | | Mailcode: [place] | [place] [address] | | | | | for Health and | [phone] | | | | | [place] [address] | | | | | | [place], [place] | | | | | | [address] | | | | | | [phone] | | | +--------+ + + + [...] | | | | | [place], | | | | | | [place] [address] | | | | | | [phone] | | | | | | | | +--------+---------+ + + + documented as of this encounter Visit Diagnoses Not on filedocumented in this encounter"
--- OUTSIDE RECORDS SUMMARY | ~2019-05-24 | XMS | Encounter Summary ---
Demographics + + + | Address | [address] | | | [place] [address] | + + + | Home Phone [...] Providers + +------+ + | Care Manager Process Improvement Name | Role | Phone | + [...] | | | | CONSULT TO | [place], [place] | Mailcode: | | | | | GI | [address] | [id number] | | | | | PROCEDURE | Phone: | [place] | | | | | UNIT: | [phone] | [address] | | | | | COLONOSCOPY | Fax: | [place], | | | | | | [phone] | [place] [address] | | | | | | | Phone: | | | | | | | [phone] | | | | | | | Fax: | | | | | | | [phone] | + +--------+ + + + + [...] | | | | CT CHEST, | [place], [place] | | | | | | ABDOMEN AND | [address] | | | | | | PELVIS W IV | Phone: | | | | | | CONTRAST | [phone] | | | | | | | Fax: | | | | | | | [phone] | | +--------+--------+ + + + + [...] | | | | Epic Dept | [address] | | | | | [address] | | | | | | | [place] H[place] | | | | | | | [place], [place] | | | | | | | [address] | | | | | | | Phone: | | | | | | | [phone] | | | | | | | Fax: | | | | | | | [phone] | +--------+--------+ + + + + Encounter Details +--------+---------+ + + + | Date | Type | Department | Care Team | Description | +--------+---------+ + + + | 05/29/ | Office | Digestive Health | Ailyn Wolff MD | CA of rectum (HCC) | | 2018 | Visit | [place] at [facility] [address] | [address] | (Primary Dx) | | | | [address] | [place] H[place], | | | | | Mailcode: [place] | [place] [address] | | | | | for Health and | [phone] | | | | | [facility], [facility] 2 | | | | | | [place], [place] | | | | | | [address] | | | | | | [phone] | | | +--------+---------+ + + + [...] in 06/[address] at [facility] in [place] in June,. I spoke to Marty Thacker. [...] rectal bleeding on 07/19/16 went to the [facility] ED CT abdomen/pelvis with IV contrast [...] cm from anal verge presented at the [facility] Multidisciplinary GI Oncology Conference on [...] Get more tissue. I spoke to Dr. iMke Islas on 10/07/16. He was willing To [...] to Mendoza pouch staple line presented at [facility] Multidisciplinary GI Oncology Conference on [...] MRI ([facility], 05/17/17) close to pelvic sidewall [facility] Multidisciplinary GI Oncology Conference (06/02/17) [...] in 06/[address] at [facility] in [place] in June,. I spoke to Marty Kirstie. [...] Return/Re-evaluation patient, I spent 20 minutes of cskm-ph-ktpg time, of which m ore than half [...] | | 2018 | Visit | | [address] | | | | | | [place], | | | | | | [place] [address] | | | | | | [phone] | | | | | | | [...] [facility] | [address] | [place] [address] | | | SERVICES, CORE | [address] | | | + + + + + documented in this encounter Visit Diagnoses + + | Diagnosis | + + | 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
--- OUTSIDE RECORDS SUMMARY | ~2019-05-24 | XMS | Encounter Summary ---
Demographics + + + | Address | [address] | | | [place] [address] | + + + | Home Phone [...] Providers + +------+ + | Care Copy Manager Name | Role | Phone | [...] | | 2019 | | Center at [facility] [address] | [address] | Review | | | | [address] | Amita Hines [place], | | | | | Mailcode: [place] | [place] [address] | | | | | for Health and | [phone] | | | | | [facility] 2 | | | | | | [place], [place] | | | | | | [address] | | | | | | [phone] | | | +--------+ + + + [...] | | | | | [place], | | | | | | [place] [address] | | | | | | [phone] | | | | | | | | +--------+---------+ + + + documented as of this encounter Visit Diagnoses Not on filedocumented in this encounter"
--- OUTSIDE RECORDS SUMMARY | ~2019-05-24 | XMS | Encounter Summary ---
Demographics + + + | Address | [address] | | | [place] [address] | + + + | Home Phone [...] Team Providers + +------+ + | Care Independent Jeweler Name | Role | Phone | + [...] | | | | [facility] Dept | [address] | | | | | | [address] | | | | | | | [place] | | | | | | | [place], [place] | | | | | | | [address] | | | | | | | Phone: | | | | | | | [phone] | | | | | | | Fax: | | | | | | | [phone] | +--------+--------+ + + + + Encounter Details +--------+---------+ + + + | Date | Type | Department | Care Team | Description | +--------+---------+ + + + | 08/28/ | Office | Digestive Health | Ailyn Wolff MD | CA of rectum (HCC) | | 2019 | Visit | [place] at [facility] [address] | [address] | (Primary Dx) | | | | [address] | [place], | | | | | Mailcode: [place] | [place] [address] | | | | | for Health and | [phone] | | | | | Healing, Building 2 | | | | | | [place], [place] | | | | | | [address] | | | | | | [phone] | | | +--------+---------+ + + + [...] AM PSTExamination chaperoned by Leann Ku RN. iAlyn Sheehan MD - 019 8:40 AM PSTCOLON AND RECTAL SURGERY Attending Clinic Note Established Patient Assessment: 57 y.o. female with htn, elevated lipids, heartburn, nephrolithiasis, and lichen sclerosus endoscopically obstructing mriT4 N0 M0 rectal mass (6 cm from verge) invading vagina rectal urgency and a lot of rectal bleeding on 07/19/[address] [facility] ED CT abdomen/pelvis with IV contrast [...] resection with Primary anastomosis, placement of a 19-Syrian Albert drain through the right lower quadrant [...] resection with primary anastomosis, placement of a 19-Syrian Albert drain through the right lower quadrant [...] family h istory, and social history in [facility]. Objective: BP 148/91 | Pulse 82 [...] Return/Re-evaluation patient, I spent 13 minutes of yyqk-ls-qrqy time, of which m ore than half [...] | | | | | [place], | | | | | | [place] [address] | | | | | | [phone] | | | | | | | [...] + + + + + | [facility] | [address] | [place] [address] | | | SERVICES, CORE | [address] | | | + + + + + documented in this encounter Visit Diagnoses + + | Diagnosis | + + | 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
--- OUTSIDE RECORDS SUMMARY | ~2019-05-24 | XMS | Encounter Summary ---
Demographics + + + | Address | [address] | | | [place] [address] | + + + | Home Phone [...] + +------+ + | Care Quality Assurance Manager Name | Role | Phone | [...] | | | | REQUEST TO | [place], [place] | [place], [place] | | | | | SURGERY | [address] | [address] | | | | | CHANNELER OUTSOLE | Phone: | Phone: | | | | | RI PART | [phone] | [phone] | | | | | REMOVAL | Fax: | Fax: | | | | | COLON W | [phone] | [phone] | | | | | COLOPROCTOST | | | | | | | LORI RI PART | | | | | | | REMOVAL | | | | | | | COLON W | | | | | | | COLOPROC,COL | | | | | | | OST RI | | | | | | | ILEOSTOMY/JE | | | | | | | JUNOSTOMY,NO | | | | | | | NTUBE RI | | | | | | | REMOVE | | | | | | | VAGINA WALL, | | | | | | | PARTIAL RI | | | | | | | REMOVE | | | | | | | VAGINA | | | | | | | TISSUE/PARTI | | | | | | | AL RI | | | | | | [...] | Malignant | Marty Toledo MD | [address] | | | | | neoplasm of | [place] | [address] | | | | | rectum | SURGICAL | Amita Hines | | | | | | [facility] | [place], [place] | | | | | | [address] | [address] | | | | | | AVE | Phone: | | | | | | [place], | [phone] | | | | | | [place] [address] | Fax: | | | | | | Phone: | [phone] | | | | | | [phone] | | | | | | | Fax: | | | | | | | [phone] | | +--------+--------+ + + + + Encounter Details +--------+---------+ + + + | Date | Type | Department | Care Team | Description | +--------+---------+ + + + | 03/02/ | Office | Digestive Health | Ailyn Wolff MD | Rectal cancer (HCC) | | 2017 | Visit | Center at [facility] [address] | [address] | (Primary Dx) | | | | [address] | [facility], | | | | | Mailcode: [facility] [address] | | | | | [facility] and | [phone] | | | | | [address] [place] [address] | | | | | | [place], [place] | | | | | | [address] | | | | | | [phone] | | | +--------+---------+ + + + [...] - 03/02/2017 1:40 PM PDTPATIENT SURGERY INFORMATION [facility] General Surgery Office Toll-free: , request [facility] Surgery Date: 04/21/2017 Procedure: Low anterior resection with posterior vaginectomy Surgeon Name: Dr. Ailyn Wolff MD DIRECTIONS FOR SURGERY DIET You should have clear liquids only for the entire day prior to surgery, no solid food. Kailee r liquids include anything you can see through, like water, fernando zack, lemon-atka soft drin ks, apple juice, tea, Gatorade/sports [...] have questions please contact the clinic at [phone], if it is after clinic h ours please call the mold cutting machine operator at [phone] and ask to speak to the [facility] Resident product consultant. CAUTION! Please call the clinic if [...] number may refer you to the hospital mold cutting machine operator ([phone]); please ask to speak to the general surgery resident product consultant for Dr Javed. MEDICATIONS You may [...] e. Smoking is not allowed on the [facility] campus. If you are a smoker, please [...] anyone by 3:00 PM please call for [id number]. PARKING Parking for patients and visitors is available in the [facility] Parking structure located across from the emergency department. Patient parking is available on level 1 and 3. Metere d parking is available on the top level. CHECKING IN FOR SURGERY Go in the main entrance and check in at the Admitting Desk 9th floor of [facility] TRANSPORTATION You will require transportation home on the day of discharge. Pain medications and physical activity restrictions may limit your ability to drive safely. CANCELLING YOUR PROCEDURE Please notify the general surgery office at [phone] as soon as possible should you nee [...] prior to your surgery. PRODUCTS CONTAINING ASPIRIN Katelyn-Sumpter, Anacin, Anexsia with Codeine, Andynos, Aspirin, Aspirin suppositories, Ascrip tin, Aspergum, Axotal, B-A-C, Baby Aspirin, Tony, BC Powder, Bexophene, Buffaprin, Bufferin , Buffinol, Cama-Arthritis Strength, Congespirin, [place], Coricidin, Damason, Darvon, Dristan, Annetta-Gesic, Digel, Dolprin #3 Tablets, Donatab, Doxaphene, Duragesic, Easprin, Ecotrin, Emag rin Forte, Emiprin, Emprazil, Equagesic, Equazine M, Excedrin, Fiogesic, Fiorgen PH, Fiorice t, Fiorinal, 4-Way Cold Tablet Gemnisyn, Indocin, Liquprin, Lortab ASA, Magnaprin, Marnal, Meprobamate, Midol, Momentum, N orgesic, Carmichaels, Orphengesic, Pabalate, P-A-C, Percodan, Presalin, Robaxasil, Roxiprin, Brian eto, Salocol SK-65 Compound, Sine-Aid, Sine-Off,, Rhodhiss, Supac, Talwin Compound, Trigesic, Tolectin , Traiminicin, Vanquish, ZORprin, Zomax PRODUCTS CONTAINING IBUPROFEN Advil, Aleve, Haltran, Medipren, Midol, Motrin, Naproxyn, Nuprin, Rufen OTHER PRODUCTS WHICH MAY PROMOTE BLEEDING Vitamin E, Gingko Biloba, Marine Fatty Acids, [place]-3 Fish Oil Supplements Registration Process for all [...] the hospital. 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 Pt denies further questions. I encouraged the pt to call with any questions, parveen rns, or new symptoms at [phone]. Bartolo, Ailyn White MD - 017 1:40 [...] on 07/19/16 went to the [facility] ED CT abdomen/pelvis with IV [...] cm from anal verge presented at the [facility] Multidisciplinary GI Oncology Conference on 10/07/16 diagnosis: [...] to Mendoza pouch staple line presented at [facility] Multidisciplinary GI Oncology Conference on 03/10/17. Given [...] smoking on 07/19/16 Plan: Present at the [facility] Multidisciplinary GI Oncology Conference on 03/10/17. Given [...] 07/19/16. She went to the [facility] ED. CT abdomen/pelvis with IV contrast [...] cm from anal verge presented at the [facility] Multidisciplinary GI Oncology Conference on 10/07/16 diagnosis: [...] breast Hypertension Mother Heart Attack Father from [place] at age 52 Diabetes Father Heart Attack Brother Coronary Artery Disease Brother NATHAN x 4 Social History Social History Marital status: Single Spouse name: Number of children: 1 Years of education: 12 Occupational History [employer] Social History Main Topics Smoking status: Former [...] established patient, I spent 38 minutes of nikh-hi-fvmd time, of which more than half the time was spent in counseling. 18 minute document review cc: Dr. Alfaro, Radiation Oncology at [facility] in [place]. Hemalatha Browning MD - 03/02/2017 1:40 PM [...] in her brother and father ( from [place] at age 52); and Hypertension in her [...] | | | | Amita Hines [place], | | | | | | [place] [address] | | | | | | [phone] | | | | | | | | +--------+---------+ + + + documented as of this encounter Visit Diagnoses + + | Diagnosis | + + | Rectal cancer (HCC) - Primary Malignant neoplasm of rectum | + + documented in this encounter
--- OUTSIDE RECORDS SUMMARY | ~2019-05-24 | XMS | Encounter Summary ---
Demographics + + + | Address | [address] | | | [place] [address] | + + + | Home Phone [...] Team Providers + +------+ + | Care Typer Name | Role | Phone | + [...] + + | 06/30/ | Hospital | [facility] [address] | Ailyn Wolff MD | | | 2017 - | Encounter | [address] | [address] | | | | | 12C/UHS31 [facility] | Amita Hines [place], | | | 07/05/ | | [facility], | [place] [address] | | | 2016 | | [place] [address] | [phone] | | | | | [phone] | | | +--------+ + + + [...] might be different fro m the original. [facility] Discharge Summary Green Service Admit Date: 06/30/2017 [...] posterior vaginal wall. 5. Placement of a 19-Omani Malissa drain through the right lower quadrant [...] narcotic pain medications, please call the clinic ([phone] ) by 2 pm on for any [...] hours by calling the surgery office at [phone]. After hours, weekends and holidays, you may call the hospital quarry equipment operator at [phone] and have the seasonal sales associate Green Team for general surgery paged. Constipation: [...] your instructions. Acetaminophen (Tylenol): You may use lqhy-hyh-lizwzhv (OTC) acetaminophen for milder pain. Do not [...] medications with Hydrocodone such as Vicodin or [place]. It is important to keep track of [...] Phone Center 07/27/2017 3:40 PM Ailyn Wolff [facility] Center at [facility] 6th Floor [phone] [facility] Schedule the following appointment(s) when you get [...] to discharge) Natalie Poon MD Surgery, PGY1 [facility] Associated attestation - Ailyn Wolff MD - [...] through Care Everywhere.Bowel Resection : Open: Post-op (Afghan)Post-op Infection (Afghan)Ureteral Stent Placement: Post-op (Sathya yoo)documented in this [...] | | 18 | | | | [id number], Skin prep: | | | | | | | 3M 3344 (30/mo), Adh | | | | | | | Rem HO 7760 | | | | | | | (1box/mo), Rings: HO | | | | | | | 8805 (10/mo), | | | | | | | [place]odor[place]: [place] [address] | | | | | | | (60/mo), Pwdr: CT | | | | | | | 530768 (1oz/mo), | | | | | | | Belt: Lrg (2/mo) | | | | | | | and Irrigation CO | | | | | | | 050763, Sleeve CO | | | | | | | 623559 | | | | | + + [...] Physician: Ailyn Wolff MD Patient: JENN BYRNES [id number] 24H events/Subjective: Epidural removed yesterday, pain controlled. [...] Tim Davila MD General Surgery, PGY-1 Pager: [phone] Associated attestation - Ailyn Wolff MD - [...] BLOCK PROGRESS NOTE 07/04/2017 Author: Andree English TYPING CHECKER Epidural day # 4 POD# 4. Status [...] Andree English NP Adult Pain Service Pager [phone] Team Pager [phone] Tim See MD - 5:31 AM PST Green Surgery Progress Note Hospital Day: 4 Attending Physician: Ailyn Wolff MD Patient: JENN BYRNES [id number] 24H events/Subjective: Epidural still functioning, removed later [...] Tim Davila MD General Surgery, PGY-1 Pager: [phone] Associated attestation - Ailyn Wolff MD - [...] 50 mL/hr intravenous CONTINUOUS 50 mL/hr (07/03/17 2875) ropivacaine 0.1 %-HYDROmorphone 10 mcg/mL epidural infusion [...] full diet Alta Woods MD Team Pager [phone] signed by Alta Woods MD at 07/03/2017 [...] this patient. Alta Woods MD Team Pager [phone] signed by Alta Woods MD at 07/02/2017 [...] [place] [phone] with questions. Dorene Carter (Mr.) MSN, ACNP- Nurse Practitioner [facility] [address] [place] [address] Vicki Erwin M D - 07/01/2017 6:04 AM PSTAPS brief note: Evaluated epidural at bedside. Catheter intact h/e filter broken resulting in leak. Replace d filtered and resumed epidural infusion. [place] Emanuel [place] [phone] signed by Vicki Emanuel MD at 07/10/2017 3:36 PM PSTHasl Natalie mckeon MD - 07/01/2017 5:36 AM PST Green Surgery Progress Note Hospital Day: 1 Attending Physician: Ailyn Wolff MD Patient: JENN BYRNES [id number] 24H events/Subjective: Pt comfortable in bed this [...] 07/01/17 0659 07/01/17699 - 07/02/17 0659 Shift 4922-2252 8353-3351 1527-2285 24 Hour Total 1343-4024 5381-0656 9891-0610 24 Hour Tot al I N T [...] Poon MD PGY-1 Department of General Surgery [id number] Ivette Shannon MD - 06/30/2017 11:02 PM [...] Jade MD Otolaryngology-Head & Neck Surgery PGY-1 [id number] documented in this encount er Plan of Treatment +--------+---------+ + + + | Date | Type | Specialty | Care Team | Description | +--------+---------+ + + + | 06/18/ | Office | Surgery | Ailyn Wolff MD | | | 2019 | Visit | | [address] | | | | | | Amita Hines [place], | | | | | | [place] [address] | | | | | | [phone] | | | | | | | [...] CHG), | e | 10:19 AM | ([facility]) | procedure are in the [...] PLACEMENT | ve | 8:03 AM | ([facility]) | | | | Surgic [...] + + | Performing | Address | City/State[facility] | Phone Number | | Organization | | | | + + + + + | [facility] | [address] | [place], [place] | | | [facility] | [address] | [address] | | | TESTS | | | [...] [place] | [address] | [place], [place] | | | [facility] | [facility] | [address] | | | TESTS | | | [...] | 70 - 99 mg/dL | [facility] - | | | GLUCOSE, | [...] [place] | [address] | [place], [place] | | | [facility] | [address] | [address] | | | TESTS | | | [...] [place] | [address] | [place], [place] | | | [facility] | [address] | [address] | | | TESTS | | | [...] [place] | [address] | [place], [place] | | | [facility] [place] [facility] | [facility] | [address] | | | TESTS | | | [...] | 70 - 99 mg/dL | [facility] - | | | GLUCOSE, | [...] [place] | [address] | [place] | | | [facility] | [address] | [address] | | | TESTS | | | [...] + + | Performing | Address | City/State[facility] | Phone Number | | Organization | | | | + + + + + | [facility] | [address] | [place], [place] | | | [facility] | [facility] | [address] | | | TESTS | | | [...] [place] | [address] | [place], [place] | | | [facility] | [facility] | [address] | | | TESTS | | | [...] | 70 - 99 mg/dL | [facility] - | | | GLUCOSE, | [...] NICOLASA | [address] | [place], [place] | | | [facility] | [address] | [address] | | | TESTS | | | [...] [place] | [address] | [place] | | | [facility] | [facility] | [address] | | | TESTS | | | [...] - [place] | [address] | [place], [place] | | | [facility] | [facility] | [address] | | | TESTS | | | [...] | 70 - 99 mg/dL | [facility] - | | | GLUCOSE, | [...] NICOLASA | [address] | [place] | | | [facility] | [address] | [address] | | | TESTS | | | [...] [place] | [address] | [place] | | | [facility] | [address] | [address] | | | TESTS | | | [...] [place] | [address] | [place] | | | [facility] | [facility] | [address] | | | TESTS | | | [...] + + + | [facility] | [address] | [place] | | | [facility] | [address] | [address] | | | TESTS | | | [...] [place] | [address] | [place], [place] | | | [facility] | [address] | [address] | | | TESTS | | | [...] [place] | [address] | [place] | | | [facility] | [address] | [address] | | | TESTS | | | [...] [place] | [address] | [place] | | | [facility] | [address] | [address] | | | TESTS | | | [...] [place] | [address] | [place] | | | [facility] | [facility] | [address] | | | TESTS | | | [...] - [place] | [address] | [place], [place] | | | [facility] | [facility] | [address] | | | TESTS | | | [...] | 70 - 99 mg/dL | [facility] - | | | GLUCOSE, | [...] + + + + | [facility] | [address] | [place] | | | [facility] | [address] | [address] | | | TESTS | | | [...] [place] | [address] | [place] | | | [facility] | [facility] | [address] | | | TESTS | | | [...] [facility] | [address] | [place], [place] | | | [facility] | [facility] | [address] | | | TESTS | | | [...] | 70 - 99 mg/dL | [facility] - | | | GLUCOSE, | [...] [place] | [address] | [place], [place] | | | [facility] | [address] | [address] | | | TESTS | | | [...] [place] | [address] | [place], [place] | | | [facility] | [facility] | [address] | | | TESTS | | | [...] + + + | [facility] | [address] | [place] [address] | | | SERVICES, CORE | AMITA [...] [facility] | [address] | [place] [address] | | | SERVICES, CORE | [address] [...] | + + + + + | [facility] | [address] | [place] [address] | | | SERVICES, CORE | AMITA [...] | | | LABORATORY | | | [facility] | | | SERVICES, | | | [...] + + + | [facility] | [address] | [place] [address] | | | SERVICES, CORE | AMITA [...] | 70 - 99 mg/dL | [facility] - | | | GLUCOSE, | [...] + + + | [facility] | [address] | [place] | | | [facility] | [address] | [address] | | | TESTS | | | [...] [place] | [address] | [place], [place] | | | [facility] | [address] | [address] | | | TESTS | | | [...] - [place] | [address] | [place] | | | [facility] | [address] | [address] | | | TESTS | | | [...] + + + | [facility] | [address] | [place] | | | [facility] | [address] | [address] | | | TESTS | | | [...] [place] | [address] | [place] | | | [facility] | [facility] | [address] | | | TESTS | | | [...] [facility] | [address] | [place] [address] | | | SERVICES, CAR | [address] | | | + + + + + OPERATION RECORD (06/30/2017 7:26 PM PST) + + | Procedure Note | + + | Ailyn Wolff MD - 06/30/2017 7:26 PM PST Date of Service: 06/30/2017 Attending | | Surgeon: Ailyn Wolff MD Crystallizer Operator(s): Sae Slater MD | | Donna [...] resection with primary anastomosis.8. Placement of a 19-Omani Malissa drain through the | | right lower quadrant wall into the presacral space.9. 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 Placement of anthony drain into former rectocutaneous | | dcfeqnr20. Cystoscopy and bilateral ureteral stent placement with [...] verge. I presented her at the [facility] Multidisciplinary GI Oncology | | conference [...] fistula tract. We performed a small bowel ufhm-oc-pwxn | | stapled anastomosis. Note, the abscess [...] closed the mesentery with a 3-0 Polysorb afthsz-hl-dmwuw suture. The anastomosis | | was widely [...] the external sphincter with interrupted 0 Polysorb phleqc-lo-vczzi sutures. We closed | | the deep [...] #1 Maxon sutures x2. We placed a 19-Omani Malissa | | drain through the right [...] | | 06/30/2017 17:03:37DT: 06/30/2017 19:26:50Job #: [id number] | | | | /[id number] | + + CAPILLARY BLOOD GLUCOSE (NO [...] [place] | [address] | [place] | | | [facility] | [address] | [address] | | | TESTS | | | [...] [place] | [address] | [place] | | | [facility] | [address] | [address] | | | TESTS | | | [...] [place] | [address] | [place] | | | [facility] | [address] | [address] | | | TESTS | | | | + + + + + PROCEDURE NOTE (06/30/2017 5:14 PM PST) + + | Procedure Note | + + | Sae Slater MD - 06/30/2017 5:14 PM PST BRIEF OPERATIVE NOTEProcedure Date: | | 06/30/2017Author: Sae Slater [facility] Physician: Dr. Ailyn Suhts: Sae | | MD Nohemy, [id number] Gonzalez MD, [id number] Diagnosis: rectal cancerPostoperative | | Diagnosis: sameProcedure [...] | | Abdominal precautionsInitial surgical contact: Green academic intern. Sae Slater MDGeneral | | Surgery, [id number] | |2. En bloc resection of rectum, [...] | | | |Initial surgical contact: Green academic intern. | | | | | |Sae Slater MD | |General Surgery, R5 | |Pager [phone] | + + PROCEDURE NOTE (06/30/2017 2:44 [...] c/o | | flank pain). Delilah Calvert [id number] of Urology | | | |Indications: 56 [...] | | | |Delilah Vale | |Pager [phone] | |PGY-5 | |Department of Urology | [...] + + | [facility] | [address] [facility] [address] | [place] | | | [facility] | [address] | [address] | | | TESTS | | | [...] placementSURGEON: Juan Luis, | | MD Princess CLAM DREDGER: Natalie Poon MDANESTHESIA: General. ESTIMATED BLOOD LOSS: [...] usual | | sterile fashion. A 21 khmer cystoscope was inserted into the urethra atraumatically. [...] [place]ve PGY - 1Department of Urology PGR [id number] | |The patient was brought to the [...] the usual sterile | |fashion. A 21 khmer cystoscope was inserted into the urethra atraumatically. [...] was then turned back over to the [facility] surgical team for their portion of the procedure. Dr. Sánchez was present and directed t he entirety of the case. | | | |The attending of record is Juan Luis Sánchez | | | | | |Natalie Poon MD | |PGY - 1 | |Department of Urology | |PGR [id number] | + + ABG-FULL ABL, POC (06/30/2017 [...] [place] | [address] | [place] | | | [facility] | [facility] | [address] | | | TESTS | | | [...] - [place] | [address] | [place] | | | [facility] | [address] | [address] | | | TESTS | | | [...] + + + | [facility] | [address] | [place] | | | [facility] | [address] | [address] | | | TESTS | | | [...] | | | | | | (pT): vJ7Hyloewwl Lymph | | | | | | Nodes (pN): | | | | | | xC2Czzsaz of regional | | | | | [...] | | | | | | record #[id number]. | | | | | | A: [...] | | | | | | diameter. Operating Manager | | | | | | sections [...] identified. | | | | | | Operating Manager sections | | | | | | [...] | | | | | sales representative groceries sections | | | | | | [...] adipose | | | | | | gqihbwD41, anal | | | | | | [...] | | | | | remnantF1 and Q0yixlb | | | | | | bowel [...] | + + + + + | [facility] | [address] | [place] [address] | | | PATHOLOGY | [address] [...] PST | | | | | on [facility] 06/30/17 at 1845, Until | | [...]
--- OUTSIDE RECORDS SUMMARY | ~2019-05-24 | XMS | Encounter Summary ---
Demographics + + + | Address | [address] | | | [place] [address] | + + + | Home Phone [...] Team Providers + +------+ + | Care Flexographic Press Plate Setter Name | Role | Phone [...] | 2017 | Encounter | Center at [facility] [address] | [address] | | | | | [address] | Amita Hines [place], | | | | | Mailcode: [place] | [place] [address] | | | | | for Health and | [phone] | | | | | [facility], [facility] [address] | | | | | | [place], [place] | | | | | | [address] | | | | | | [phone] | | | +--------+ + + + [...] | | | | | [address] [place], | | | | | | [place] [address] | | | | | | [phone] | | | | | | | | +--------+---------+ + + + documented as of this encounter Visit Diagnoses Not on filedocumented in this encounter"
--- OUTSIDE RECORDS SUMMARY | ~2019-05-24 | XMS | Encounter Summary ---
Demographics + + + | Address | [address] | | | [place] [address] | + + + | Home Phone [...] Providers + +------+ + | Care Press Setter Name | Role | Phone | [...] | | 2017 | | Center at [facility] [address] | [address] | Review | | | | [address] | Amita Hines [place], | | | | | Mailcode: [place] | [place] [address] | | | | | for Health and | [phone] | | | | | [facility] 2 | | | | | | [place], [place] | | | | | | [address] | | | | | | [phone] | | | +--------+ + + + [...] | | | | | Amita Hines [place], | | | | | | [place] [address] | | | | | | [phone] | | | | | | | | +--------+---------+ + + + documented as of this encounter Visit Diagnoses Not on filedocumented in this encounter"
--- OUTSIDE RECORDS SUMMARY | ~2019-05-24 | XMS | Encounter Summary ---
Demographics + + + | Address | [address] | | | [place] [address] | + + + | Home Phone [...] Team Providers + +------+ + | Care Torch Brazer Name | Role | Phone | + [...] 2017 | | Center at [facility] [address] | [address] | results | | | | [address] | Amita Hines [place], | | | | | Mailcode: [place] | [place] [address] | | | | | for Health and | [phone] | | | | | [facility] 2 | | | | | | [place], [place] | | | | | | [address] | | | | | | [phone] | | | +--------+ + + + [...] | | | | | Amita Hines [place], | | | | | | [place] [address] | | | | | | [phone] | | | | | | | | +--------+---------+ + + + documented as of this encounter Visit Diagnoses Not on filedocumented in this encounter"
--- OUTSIDE RECORDS SUMMARY | ~2019-05-24 | XMS | Encounter Summary ---
Demographics + + + | Address | [address] | | | [place] [address] | + + + | Home Phone [...] Team Providers + +------+ + | Care Civil Drafter Name | Role | Phone | + [...] | | | | Pre-operativ | [address] | | | | | | e | [address] | | | | | | cardiovascul | [place], | | | | | | ar | [place] | | | | | | examination | [address] | | | | | | Tobacco | Phone: | | | | | | abuse | [phone] | | | | | | Dyspnea, | Fax: | | | | | | unspecified | [phone] | | | | | | type [...] | | | | | | at [facility] [address] | | | | | | [address] Mailcode: | | | | | | [address] | | | | | | Health and Healing, | | | | | | Building [address] | | | | | | [place], [place] | | | | | | [address] | | | | | | [phone] | | | +--------+ + + + [...] | | | | | [place], | | | | | | [place] [address] | | | | | | [phone] | | | | | | | [...] formed At | + +---- + | [facility] | O [facility] DEPT OF | | [facility] Adult Echocardi[facility] [address] | [facility] | | [place], [place] [address] Ph: | | | Pt Name: JENN BYRNES | | | Study Date/Time 10/06/2016 / 8:59:07 AMMRN: [id number] | | | Most recent prior: -Acc #: [id number] | | | No. previous echos: 0DOB: 1960 55 years Heart Rate: | | | 78 bpmHeight: 63.0 in Blood | | | Pressure: 131/69 mm/HgWeight: 142.0 lb | | | Gender: FBSA: 1.67 m2 | | | Order ID: [id number] Forgeman Helper: Brandon Hwang MA, | | | [facility] Referring Provider: Brittany Rojas Location: | [...] Report electronically signed by: | | | [id number] Cole Chávez MD (10/06/2016, 10:21:24 AM)REPORT | | | JEUC=[id number] HOSP=PO REGION=A0 Final | | | cm [...] | | | |Report electronically signed by: [id number] Cole Chávez MD (10/06/2016, 10:21:24 | | |AM) | | |REPORT KTRT=[id number] HOSP=PO REGION=A0 | | | | | | | | | | | | Final | | + +---- + + + | Procedure Note | + + | Interface, Cardiology Results - 10/06/2016 10:21 AM [facility] | | [facility] Echocardiography Laboratory [address] [place] [address] | | [place], [place] [address] Pt Name: JENN | | BRITTANY BYRNES Study Date/Time 10/06/2016 / 8:59:07 AMMRN: [id number] | | Most recent prior: -Acc #: [id number] No. previous echos: 0DOB: | | 1960 55 years Heart Rate: 78 bpmHeight: 63.0 in Blood | | Pressure: 131/69 mm/HgWeight: 142.0 lb Gender: FBSA: | | 1.67 m2 Order ID: [id number] Forgeman Helper: Brandon Hwang MA, | | RDCSReferring Provider: [...] | indexed values Report electronically signed by: [id number] Cole Chávez MD | | (10/06/2016, 10:21:24 AM)REPORT QHEA=[id number] HOSP=PO REGION=A0 Final | |ventricular ejection fraction [...] | | | |Report electronically signed by: [id number] Cole Chávez MD (10/06/2016, 10:21:24 | |AM) | |REPORT RLEI=[id number] HOSP=PO REGION=A0 | | | | | | | | Final | + + + + + + + | Performing | Address | City/State/[facility] | Phone Number | | Organization | | | | + + + + + | [facility] | [address] | [place], [place] | | | CARDIOLOGY | [address] | [address] | | + + + + + documented in this encounter Visit Diagnoses + + | Diagnosis | + + | Pre-operative cardiovascular examination | + + | Tobacco abuse Tobacco use disorder | + + | Dyspnea, unspecified type | + + | Aortic systolic murmur on examination | + + documented in this encounter"
--- OUTSIDE RECORDS SUMMARY | ~2019-05-24 | XMS | Encounter Summary ---
Demographics + + + | Address | [address] | | | [place] [address] | + + + | Home Phone [...] Team Providers + +------+ + | Care Information Systems Project Manager Name | Role | Phone [...] | 2018 | on | Center at [facility] [address] | [address] | Received (Out of | | | | [address] | Amita [facility] | | | | Mailcode: [place] | [place] [address] | Authorization ) | | | | for Health and | [phone] | | | | | [facility] 2 | | | | | | [place], [place] | | | | | | [address] | | | | | | [phone] | | | +--------+ + + + [...] | | | | | Amita Hines [place], | | | | | | [place] [address] | | | | | | [phone] | | | | | | | | +--------+---------+ + + + documented as of this encounter Visit Diagnoses Not on filedocumented in this encounter"
--- OUTSIDE RECORDS SUMMARY | ~2019-05-24 | XMS | Encounter Summary ---
Demographics + + + | Address | [address] | | | [place] [address] | + + + | Home Phone [...] Team Providers + +------+ + | Care Tyre Fitter Name | Role | Phone | + +------+ + | Justin Kristian | PCP | | + +------+ + Encounter Details +--------+------+ + + + | Date | Type | Department | Care Team | Description | +--------+------+ + + + | 05/29/ | Lab | Laboratory at [facility] | | SABINA chung [facility]) | | 2018 | | [address] | | | | | | [place], [place] | | | | | | [address] | | | | | | [phone] | | | +--------+------+ + + + [...] | | | | | Suzy Hines [place], | | | | | | [place] [address] | | | | | | [phone] | | | | | | | [...] | + + + + + | [facility] | [address] | [place] [address] | | | SERVICES, CORE | [address] | | | + + + + + documented in this encounter Visit Diagnoses + + | Diagnosis | + + | CA of rectum (HCC) Malignant neoplasm of rectum | + + documented in this encounter"
--- OUTSIDE RECORDS SUMMARY | ~2019-05-24 | XMS | Encounter Summary ---
Demographics + + + | Address | [address] | | | [place] [address] | + + + | Home Phone [...] Team Providers + +------+ + | Care Lockstitch Waistband Setter Name | Role | Phone | [...] | | | | | | | [address] | | | | | [address] | | | | | | | Mailcode: | | | | | | | [place] for | | | | | | | Health and | | | | | | | Healing, | | | | | | | Building 2 | | | | | | | [place], [place] | | | | | | | [address] | | | | | | | Phone: | | | | | | | [phone] | | | | | | | Fax: | | | | | | | [phone] | + +--------+ + + + + Encounter Details +--------+---------+ + + + | Date | Type | Department | Care Team | Description | +--------+---------+ + + + | 11/27/ | Office | Digestive Health | Ailyn Wolff MD | Rectal cancer (HCC) | | 2019 | Visit | Center at [facility] [address] | [address] | (Primary Dx) | | | | [address]chola Suzy Hines [place], | | | | | Mailcode: [place] | [place] [address] | | | | | for Health and | [phone] | | | | | [facility] 2 | | | | | | [place], [place] | | | | | | [address] | | | | | | [phone] | | | +--------+---------+ + + + [...] rectal bleeding on 07/19/16 went to the [facility] ED CT abdomen/pelvis with IV contrast (07/20/16) [...] cm from anal verge presented at the [facility] Multidisciplinary GI Oncology Conference [...] to Mendoza pouch staple line presented at [facility] Multidisciplinary GI Oncology Conference [...] MRI (OSH, 05/17/17) close to pelvic sidewall [facility] Multidisciplinary GI Oncology Conference (06/02/17) [...] resection with Primary anastomosis, placement of a 19-Botswanan Albert drain through the right lower quadrant [...] resection with primary anastomosis, placement of a 19-Botswanan Albert drain through the right lower quadrant [...] Return/Re-evaluation patient, I spent 11 minutes of rmkh-rx-kcul time, of which m ore than half [...] | | | | | Suzy Hines [place], | | | | | | [place] [address] | | | | | | [phone] | | | | | | | [...] | + + + + + | [facility] | [address] | [place] [address] | | | SERVICES, CORE | [address] | | | + + + + + documented in this encounter Visit Diagnoses + + | Diagnosis | + + | Rectal cancer (HCC) - Primary Malignant neoplasm of rectum | + + documented in this encounter
--- OUTSIDE RECORDS SUMMARY | ~2019-05-24 | XMS | Encounter Summary ---
Demographics + + + | Address | [address] | | | [place] [address] | + + + | Home Phone [...] Team Providers + +------+ + | Care Sign Designer Name | Role | Phone | [...] | | [address] | Amita Hines [facility] | | | | | Mailcode: [place] | [place] [address] | | | | | for Health and | [phone] | | | | | [facility] 2 | | | | | | [place], [place] | | | | | | [address] | | | | | | [phone] | | | +--------+ + + + [...] | | | | | Amita Hines [place], | | | | | | [place] [address] | | | | | | [phone] | | | | | | | | +--------+---------+ + + + documented as of this encounter Visit Diagnoses Not on filedocumented in this encounter"
--- OUTSIDE RECORDS SUMMARY | ~2019-05-24 | XMS | Encounter Summary ---
Demographics + + + | Address | [address] | | | [place] [address] | + + + | Home Phone [...] Team Providers + +------+ + | Care Lower School Spanish Teacher Name | Role | Phone | [...] 2017 | | Center at [facility] [address] | [address] | the thigh); Blood in | | | | [address] | [address] [place], | urine (UTI work up | | | | Mailcode: [place] | [place] [address] | ordered) | | | | for Health and | [phone] | | | | | [facility] 2 | | | | | | [place], [place] | | | | | | [address] | | | | | | [phone] | | | +--------+ + + + [...] | | | | | Amita Hines [place], | | | | | | [place] [address] | | | | | | [phone] | | | | | | | | +--------+---------+ + + + documented as of this encounter Visit Diagnoses + + | Diagnosis | + + | Hematuria, unspecified type - Primary | + + documented in this encounter"
--- OUTSIDE RECORDS SUMMARY | ~2019-05-24 | XMS | Encounter Summary ---
Demographics + + + | Address | [address] | | | [place] [address] | + + + | Home Phone [...] Team Providers + +------+ + | Care Equipment Service Lead Name | Role | Phone | [...] Rd | | | | | | [place], [place] | | | | | | [address] | | | +--------+ + + + [...] | | | | | Amita Hines [place], | | | | | | [place] [address] | | | | | | [phone] | | | | | | | | +--------+---------+ + + + documented as of this encounter Visit Diagnoses Not on filedocumented in this encounter"
--- OUTSIDE RECORDS SUMMARY | ~2019-05-24 | XMS | Encounter Summary ---
Demographics + + + | Address | [address] | | | [place] [address] | + + + | Home Phone [...] + +------+ + | Care Director Of Market Intelligence Name | Role | Phone | + +------+ + | Kristian Anderson DO | PCP | | + +------+ + Encounter Details +--------+ + + + + | Date | Type | Department | Care Team | Description | +--------+ + + + + | 07/19/ | Rn Cardiovascular Icu | Digestive Health | Trinidad Garcia, | | | 2016 | | Center at [facility] [address] | AGACNP [address] | | | | | [address] | Brigitte [facility] [place] | | | | | Mailcode: [place] | [address] | | | | | for Health and | | | | | | [facility] 2 | | | | | | [facility] [place] | | | | | | [address] | | | | | | [phone] | | | +--------+ + + + [...] | | | | | Amita Hines [place], | | | | | | [place] [address] | | | | | | [phone] | | | | | | | | +--------+---------+ + + + documented as of this encounter Visit Diagnoses Not on filedocumented in this encounter"
--- OUTSIDE RECORDS SUMMARY | ~2019-05-24 | XMS | Encounter Summary ---
Demographics + + + | Address | [address] | | | [place] [address] | + + + | Home Phone [...] Team Providers + +------+ + | Care Wool Puller Name | Role | Phone | + +------+ + | Kristian Anderson DO | PCP | | + +------+ + Encounter Details +--------+ + + + + | Date | Type | Department | Care Team | Description | +--------+ + + + + | 10/05/ | Abstract | Digestive Health | Ailyn Wolff MD | | | 2017 | | [place] at [facility] [address] | [address] | | | | | [address] | Amita Hines [place], | | | | | Mailcode: [place] | [place] [address] | | | | | [facility] and | [phone] | | | | | [facility] 2 | | | | | | [place], [place] | | | | | | [address] | | | | | | [phone] | | | +--------+ + + + [...] | | | | | [address] [place], | | | | | | [place] [address] | | | | | | [phone] | | | | | | | | +--------+---------+ + + + documented as of this encounter Visit Diagnoses Not on filedocumented in this encounter"
--- OUTSIDE RECORDS SUMMARY | ~2019-05-24 | XMS | Encounter Summary ---
Demographics + + + | Address | [address] | | | [place] [address] | + + + | Home Phone [...] Providers + +------+ + | Care Maintenance Service Technician Name | Role | Phone [...] | [address] | Amita Hines [place], | | | | | Mailcode: [place] | [place] [address] | | | | | for Health and | [phone] | | | | | [facility] 2 | | | | | | [place], [place] | | | | | | [address] | | | | | | [phone] | | | +--------+---------+ + + + [...] rectal bleeding on 07/19/16 went to the [facility] ED CT abdomen/pelvis with IV contrast [...] cm from anal verge presented at the [facility] Multidisciplinary GI Oncology Conference on [...] to Mendoza pouch staple line presented at [facility] Multidisciplinary GI Oncology Conference on [...] MRI (OSH, 05/17/17) close to pelvic sidewall [facility] Multidisciplinary GI Oncology Conference (06/02/17) [...] with primary anast omosis, placement of a 19-Turkish Albert drain through the right lower quadrant [...] wit h primary anastomosis, placement of a 19-Turkish Albert drain through the right lower quadrant [...] Return/Re-evaluation patient, I spent 13 minutes of efux-fg-rmey time, of which m ore than half the time was spent in counseling. 4 minute document review [facility] umented in this encounter Plan of Treatment +--------+---------+ + + + | Date | Type | Specialty | Care Team | Description | +--------+---------+ + + + | 06/18/ | Office | Surgery | Ailyn Wolff MD | | | 2018 | Visit | | [address] | | | | | | Amita Hines [place], | | | | | | [place] [address] | | | | | | [phone] | | | | | | | | +--------+---------+ + + + documented as of this encounter Visit Diagnoses + + | Diagnosis | + + | 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
--- OUTSIDE RECORDS SUMMARY | ~2019-05-24 | XMS | Encounter Summary ---
Demographics + + + | Address | [address] | | | [place] [address] | + + + | Home Phone [...] Team Providers + +------+ + | Care Seater Grinder Name | Role | Phone | [...] LOW ANTERIOR | | 2017 | | [facility] | [address] [facility] | RESECTION, POSTERIOR | | | | Admitting Desk | [place]zy [place], | VAGINECTOMY, | | | | Located on the | [place] [address] | ILEOSTOMY, POSSIBLE | | | | floor [address] [facility] | [phone] | ABDOMINOPERINEAL | | | | [address] | | RESECTION Path: | | | | [place], [place] | | Stanx2 FSx3 Freshx1 | | | | [address] | | | +--------+---------+ + + + [...] might be different fro m the original. [facility] Discharge Summary Green [...] posterior vaginal wall. 5. Placement of a 19-Uzbek Albert drain through the right lower quadrant [...] narcotic pain medications, please call the clinic ([phone] ) by 2 pm on for any [...] hours by calling the surgery office at [phone]. After hours, weekends and holidays, you may call the hospital boring machine operator at [phone] and have the building stonecutter Green Team for general surgery paged. Constipation: [...] your instructions. Acetaminophen (Tylenol): You may use fwhz-yhz-lbltmdr (OTC) acetaminophen for milder pain. Do not [...] medications with Hydrocodone such as Vicodin or Kinde. It is important to keep track of [...] Center 07/27/2017 3:40 PM Ailyn Wolff [facility] Center at [facility] 6th Floor [phone] [facility] Schedule the following appointment(s) when [...] to discharge) Natalie Poon MD Surgery, PGY1 [facility] Associated attestation - Ailyn Wolff MD [...] through Care Everywhere.Bowel Resection : Open: Post-op (Telugu)Post-op Infection (Telugu)Ureteral Stent Placement: Post-op ([facility])documented in this encounter Medications at Time [...] | | 18 | | | | [id number], Skin prep: | | | | | | | 3M 3344 (30/mo), Adh | | | | | | | Rem HO 7760 | | | | | | | (1box/mo), Rings: HO | | | | | | | 8805 (10/mo), | | | | | | | [place] [address] | | | | | | | (60/mo), Pwdr: CT | | | | | | | 228755 (1oz/mo), | | | | | | | Belt: Lrg (2/mo) | | | | | | | and Irrigation CO | | | | | | | 966148, Sleeve [place] | | | | | | | 933865 | | | | | + + [...] Physician: Ailyn Wolff MD Patient: PAULETTE BYRNES [id number] 24H events/Subjective: Epidural removed yesterday, pain controlled. [...] of drainage, ostomy pink, appliance with stool. [place] in place at tractotomy site. Extremities: WWP, [...] Tim Davila MD General Surgery, PGY-1 Pager: [phone] Associated attestation - Ailyn Wolff MD - [...] BLOCK PROGRESS NOTE 07/04/2017 Author: Andree English HYBRID TECHNOLOGIST Epidural day # 4 POD# 4. Status [...] Andree English NP Adult Pain Service Pager [phone] Team Pager [phone] Tim See MD - 5:31 AM PST Green Surgery Progress Note Hospital Day: 4 Attending Physician: Ailyn Wolff MD Patient: PAULETTE BYRNES [id number] 24H events/Subjective: Epidural still functioning, removed later [...] Tim Davila MD General Surgery, PGY-1 Pager: [phone] Associated attestation - Ailyn Wolff MD - [...] 50 mL/hr intravenous CONTINUOUS 50 mL/hr (07/03/17 4535) ropivacaine 0.1 %-HYDROmorphone 10 mcg/mL epidural infusion [...] full diet Alta Woods MD Team Pager [phone] signed by Alta Woods MD at 07/03/2017 [...] this patient. Alta Woods MD Team Pager [phone] signed by Alta Woods MD at 07/02/2017 [...] [place] [phone] with questions. Dorene Carter () MSN, ACNP- Nurse Practitioner Acute [facility] [address] [place] [address] Vicki Erwin M D - 07/01/2017 6:04 AM PSTAPS brief note: Evaluated epidural at bedside. Catheter intact h/e filter broken resulting in leak. Replace d filtered and resumed epidural infusion. Vicki Emanuel MD APS pg [id number] signed by Vicki Emanuel MD at 07/10/2017 3:36 PM PSTHasl Natalie mckeon MD - 07/01/2017 5:36 AM PST Green Surgery Progress Note Hospital Day: 1 Attending Physician: Ailyn Wolff MD Patient: PAULETTE BYRNES [id number] 24H events/Subjective: Pt comfortable in bed this [...] - 07/01/1759 07/01/17699 - 07/02/17 0659 Shift 4131-9340 4545-8558 7655-1243 24 Hour Total 5915-8284 1932-0050 7548-1010 24 Hour Tot al I N T [...] Poon MD PGY-1 Department of General Surgery [id number] Ivette Shannon MD - 06/30/2017 11:02 PM [...] Jade MD Otolaryngology-Head & Neck Surgery PGY-1 [id number] documented in this encount er Plan of Treatment +--------+---------+ + + + | Date | Type | Specialty | Care Team | Description | +--------+---------+ + + + | 06/18/ | Office | Surgery | Ailyn Wolff MD | | | 2019 | Visit | | [address] | | | | | | [place]zy [place], | | | | | | [place] [address] | | | | | | [phone] | | | | | | | [...] [place] | [address] | [place], [place] | | | VIVIAN SCH[facility]T OF CARE | [address] | [address] | | | TESTS | | | [...] [place]QUAM | [address] | [place], [place] | | | [facility] OF CARE | [address] | [address] | | | TESTS | | | [...] [place]IN | [address] | [place], [place] | | | [facility] CARE | [address] | [address] | | | TESTS | | | [...] MAR[place]AM | [address] | [place], [place] | | | [facility] OF CARE | [address] | [address] | | | TESTS | | | [...] [place]AM | [address] | [place], [place] | | | [facility] POINT OF CARE | [address] | [address] | | | TESTS | | | [...] [place]IN | [address] | [place], [place] | | | [facility] OF CARE | [address] | [address] | | | TESTS | | | [...] [place]QUAM | [address] | [place], [place] | | | [facility] OF CARE | [address] | [address] | | | TESTS | | | [...] - MAR[place]AM | [address] | [place], [place] | | | [facility] POINT OF CARE | [address] | [address] | | | TESTS | | | [...] (H) | 70 - 99 mg/dL | [facility] - | | | GLUCOSE, [...] + + + | CHAPIN [place] | [address] | [place], [place] | | | VIVIAN SCH[facility]T OF [facility] | [address] | [address] | | | TESTS | | | [...] [place] | [address] | [place], [place] | | | VIVIAN SCH[facility]T OF [place] | [address] | [address] | | | TESTS | | | [...] MARCIALAM | [address] | [place], [place] | | | V[facility] OF CARE | [address] | [address] | | | TESTS | | | [...] (L) | 70 - 99 mg/dL | [facility] - | | | GLUCOSE, [...] [place]IN | [address] | [place], [place] | | | V[facility] OF CARE | [address] | [address] | | | TESTS | | | [...] NICOLASA | [address] | [place], [place] | | | VIVIAN SCH[facility]T OF [place] | [address] | [address] | | | TESTS | | | [...] | | POC | | | VIVIAN SHCMIDT | | | | | | OF [...] - NICOLASA | [address] | [place], [place] | | | [facility] OF CARE | [facility] | [address] | | | TESTS | | | [...] BAL[place]IN | [address] | [place], [place] | | | VIVIAN SCH[facility]T OF [place] | [facility] | [address] | | | TESTS | | | [...] - MARQUAM | [address] | [place], [place] | | | [facility]INT OF CARE | [address] | [address] | | | TESTS | | | [...] + + + | CHAPIN BALDWIN | [address] | [place], [place] | | | [facility]INT OF CARE | [address] | [address] | | | TESTS | | | [...] MARQUAM | [address] | [place], [place] | | | [facility] POINT OF CARE | [facility] | [address] | | | TESTS | | | [...] | [facility] [place] | [address] | [place], [place] | | | VIVIAN SCH[facility]T OF [place] | [address] | [address] | | | TESTS | | | [...] MARCIALAM | [address] | [place], [place] | | | V[facility]T OF CARE | [address] | [address] | | | TESTS | | | [...] BAL[place]IN | [address] | [place], [place] | | | V[facility] OF CARE | [address] | [address] | | | TESTS | | | [...] MARQUAM | [address] | [place], [place] | | | V[facility]IAN SCH[facility]T OF [place] | [address] | [address] | | | TESTS | | | [...] NICOLASA | [address] | [place], [place] | | | [facility] POINT OF CARE | [facility] | [address] | | | TESTS | | | [...] (H) | 70 - 99 mg/dL | [facility] - | | | GLUCOSE, [...] BALDWIN | [address] | [place] | | | V[facility]IAN SCH[facility]T OF [facility] | [facility] | [address] | | | TESTS | | | [...] MARQUAM | [address] | [place], [place] | | | VIVIAN SCH[facility]T OF [place] | [address] | [address] | | | TESTS | | | [...] | + + + + + | [facility] | [address] | [place] [address] | | | SERVICES, CORE | SUZY [...] [facility] | [address] | [place] [address] | | | SERVICES, CORE | [address]ARK [...] | + + + + + | [facility] | [address] | [place] [address] | | | SERVICES, CORE | SUZY [...] | | | LABORATORY | | | LEBANESE | | | SERVICES, | | | [...] | + + + + + | [facility] | [address] | [place] [address] | | | SERVICES, CORE | SUZY [...] (H) | 70 - 99 mg/dL | [facility] - | | | GLUCOSE, | | [...] NICOLASA | [address] | [place], [place] | | | VIVIAN SCH[facility]T OF [place] | [facility] | [address] | | | TESTS | | | | + + + + + CAPILLARY BLOOD GLUCOSE (NO CHG), POC (07/01/2017 12:06 AM [facility]) + +---------+ + + + | Component [...] MARCIALAM | [address] | [place], [place] | | | V[facility] OF CARE | [facility] | [address] | | | TESTS | | | [...] (H) | 70 - 99 mg/dL | [facility] - | | | GLUCOSE, [...] NICOLASA | [address] | [place], [place] | | | [facility] POINT OF CARE | [address] | [address] | | | TESTS | | | [...] NICOLASA | [address] | [place], [place] | | | VIVIAN SCH[facility]T OF [place] | [facility] | [address] | | | TESTS | | | [...] MARCIALAM | [address] | [place], [place] | | | [facility] POINT OF CARE | [facility] | [address] | | | TESTS | | | [...] [facility] | [address] | [place] [address] | | | SERVICES, CORE | [address] | | | + + + + + OPERATION RECORD (06/30/2017 7:26 PM PST) + + | Procedure Note | + + | Ailyn Wolff MD - 06/30/2017 7:26 PM PST Date of Service: 06/30/2017 Attending | | Surgeon: Ailyn Wolff MD General Lot Attendant(s): Sae Slater MD | | Donna Gonzalez [...] resection with primary anastomosis.8. Placement of a 19-Uzbek Albert drain through the | | right lower quadrant wall into the presacral space.9. 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 Placement of anthony drain into former rectocutaneous | | [id number]. Cystoscopy and bilateral ureteral stent placement with [...] anal verge. I presented her at the [facility] Multidisciplinary GI Oncology | | [...] fistula tract. We performed a small bowel rexb-zg-zerz | | stapled anastomosis. Note, the abscess [...] left in the | | pelvis. A anthoyn drain was left in the former rectocutaneous [...] closed the mesentery with a 3-0 Polysorb ydbhak-np-zrtyr suture. The anastomosis | | was widely [...] the external sphincter with interrupted 0 Polysorb dukxln-vp-jqryf sutures. We closed | | the deep [...] #1 Maxon sutures x2. We placed a 19-Uzbek Albert | | drain through the right [...] | | 06/30/2017 17:03:37DT: 06/30/2017 19:26:50Job #: [id number] | | | | /[id number] | + + CAPILLARY BLOOD GLUCOSE (NO [...] [place] | [address] | [place], [place] | | | VIVIAN SCH[facility]T OF [place] | [address] | [address] | | | TESTS | | | [...] [place]AM | [address] | [place], [place] | | | [facility] POINT OF CARE | [address] | [address] | | | TESTS | | | [...] + + + | CHAPIN [place] | [address] | [place], [place] | | | V[facility]IAN SCH[facility]T OF [facility] | [address] | [address] | | | TESTS | | | | + + + + + PROCEDURE NOTE (06/30/2017 5:14 PM PST) + + | Procedure Note | + + | aSe Slater MD - 06/30/2017 5:14 PM PST BRIEF OPERATIVE NOTEProcedure Date: | | 06/30/2017Author: Sae Slater [facility] Physician: Dr. Ailyn Lowistants: Sae | | MD Nohemy, [id number] Gonzalez MD, [id number] Diagnosis: rectal cancerPostoperative | | Diagnosis: sameProcedure [...] | | Abdominal precautionsInitial surgical contact: Green graduate intern. Sae Slater MDGeneral | | Surgery, [id number] | |2. En bloc resection of rectum, [...] | | | |Initial surgical contact: Green graduate intern. | | | | | |Sae Slater MD | |General Surgery, R5 | |Pager [phone] | + + PROCEDURE NOTE (06/30/2017 2:44 PM PST) + + | Procedure Note | + + | Delilah Jerome MD - 06/30/2017 2:44 PM PST OPERATIVE NOTE Procedure Date: | | 06/30/2017 Author: Delilah Vale MD Attending Physician: Harjit Clark Assistants: | | eDlilah Vale MD. Preoperative Diagnosis: Rectal cancer, history [...] c/o | | flank pain). Delilah ValePasuri [id number] of Urology | | | |Indications: 56 [...] | | | |Delilah Vale | |Pager [phone] | |PGY-5 | |Department of Urology | [...] [place] | [address] | [place], [place] | | | VIVIAN SCH[facility]IDT OF [facility] | [address] | [address] | | | TESTS | | | [...] placementSURGEON: Juan Luis | | MD Princess PULLEY MAN: Natalie Poon MDANESTHESIA: General. ESTIMATED BLOOD LOSS: [...] usual | | sterile fashion. A 21 ugandan cystoscope was inserted into the urethra atraumatically. [...] Cleve PGY - 1Department of Urology PGR [id number] | |The patient was brought to the [...] the usual sterile | |fashion. A 21 ugandan cystoscope was inserted into the urethra atraumatically. [...] was then turned back over to the [facility] surgical team for their portion of the procedure. Dr. Sánchez was present and directed t he entirety of the case. | | | |The attending of record is Juan Luis Sánchez | | | | | |Natalie Poon MD | |PGY - 1 | |Department of Urology | |PGR 37592 | + + ABG-FULL ABL, POC (06/30/2017 [...] [place] | [address] | [place], [place] | | | VIVIAN SH[facility]T OF [place] | [facility] | [address] | | | TESTS | | | [...] (H) | 70 - 99 mg/dL | [facility] - | | | GLUCOSE, [...] NICOLASA | [address] | [place], [place] | | | [facility] POINT OF CARE | [address] | [address] | | | TESTS | | | [...] + + | Performing | Address | City/State[facility] | Phone Number | | Organization | | | | + + + + + | [facility] | [address] | [place], [place] | | | V[facility] OF [place] | [address] | [address] | | | TESTS | | | [...] | | | | | | (pT): iP6Cvmicgui Lymph | | | | | | Nodes (pN): | | | | | | fC6Yexadr of regional | | | | | [...] | | | | | | record #[id number]. | | | | | | A: [...] | | | | | | diameter. Human Factors Ergonomist | | | | | | sections [...] identified. | | | | | | Human Factors Ergonomist sections | | | | | | [...] additional | | | | | | resources representative sections | | | | | [...] adipose | | | | | | xtstzeQ71, anal | | | | | | [...] | | | | | remnantF1 and L4pzqix | | | | | | bowel [...] + + + | [facility] | [address] | [place] [address] | | | PATHOLOGY | [address] [...]
--- OUTSIDE RECORDS SUMMARY | ~2019-05-24 | XMS | Encounter Summary ---
Demographics + + + | Address | [address] | | | [place] [address] | + + + | Home Phone [...] Team Providers + +------+ + | Care Mixer Driver Name | Role | Phone | [...] Radiology Order | | 2018 | | [place] [address] [address] | [address] | | | | | [address] [place], | | | | | Mailcode: [place] | [place] [address] | | | | | for Health and | [phone] | | | | | [facility] 2 | | | | | | [place], [place] | | | | | | [address] | | | | | | [phone] | | | +--------+ + + + [...] | | | | | [address] [place], | | | | | | [place] [address] | | | | | | [phone] | | | | | | | | +--------+---------+ + + + documented as of this encounter Visit Diagnoses Not on filedocumented in this encounter"
--- OUTSIDE RECORDS SUMMARY | ~2019-05-24 | XMS | Encounter Summary ---
Demographics + + + | Address | [address] | | | [place] [address] | + + + | Home Phone [...] Team Providers + +------+ + | Care Visual Educator Name | Role | Phone | [...] | | | | [facility] | [address] | | | | | | | [address] | | | | | | | [place] | | | | | | | [place], [place] | | | | | | | [address] | | | | | | | Phone: | | | | | | | [phone] | | | | | | | Fax: | | | | | | | [phone] | +--------+--------+ + + + + Encounter Details +--------+---------+ + + + | Date | Type | Department | Care Team | Description | +--------+---------+ + + + | 02/20/ | Office | Digestive Health | Ailyn Wolff MD | CA of rectum (HCC) | | 2018 | Visit | [place] [facility] [address] | [address] | (Primary Dx) | | | | [address] | [place], | | | | | Mailcode: [place] | [place] [address] | | | | | for Health and | [phone] | | | | | [facility] 2 | | | | | | [place], [place] | | | | | | [address] | | | | | | [phone] | | | +--------+---------+ + + + [...] bleeding on 07/19/[address] [facility] ED CT abdomen/pelvis with IV [...] (10/05/16) no liver metastases rigid proctoscopy by oh (10/05/16) 6 cm from anal verge presented [...] Return/Re-evaluation patient, I spent 12 minutes of njjc-zj-xnlk time, of which m ore than half [...] | | | | | [place], | | | | | | [place] [address] | | | | | | [phone] | | | | | | | [...] | + + + + + | [facility] | [address] | [place] [address] | | | SERVICES, CORE | [address] | | | + + + + + documented in this encounter Visit Diagnoses + + | Diagnosis | + + | 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
--- OUTSIDE RECORDS SUMMARY | ~2019-05-24 | XMS | Encounter Summary ---
Demographics + + + | Address | [address] | | | [place] [address] | + + + | Home Phone [...] Team Providers + +------+ + | Care Money Manager Name | Role | Phone | [...] | | | | [facility] | [place], [place] | | | | | [address] [address] | [address] | | | | | [place], [place] | | | | | | [address] | | | | | | [phone] | | | +--------+ + + + [...] | | 18 | | | | 788005, Skin prep: | | | | | | | 3M 3344 (30/mo), Adh | | | | | | | Rem HO 7760 | | | | | | | (1box/mo), Rings: HO | | | | | | | 8805 (10/mo), | | | | | | | [place]odorant: [place] [address] | | | | | | | (60/mo), Pwdr: CT | | | | | | | 887411 (1oz/mo), | | | | | | | Belt: Lrg (2/mo) | | | | | | | and Irrigation CO | | | | | | | 762109, [place]ve [place] | | | | | | | 681357 | | | | | + + [...] | | | | | Amita [place], | | | | | | [place] [address] | | | | | | [phone] | | | | | | | | +--------+---------+ + + + documented as of this encounter Visit Diagnoses Not on filedocumented in this encounter"
--- OUTSIDE RECORDS SUMMARY | ~2019-05-24 | XMS | Encounter Summary ---
Demographics + + + | Address | [address] | | | [place] [address] | + + + | Home Phone [...] Team Providers + +------+ + | Care Oxygraph Operator Name | Role | Phone | [...] | | 2018 | | Center at [facility] [address] | [address] | Review | | | | [address] | Amita H[place], | | | | | Mailcode: [place] | [place] [address] | | | | | for Health and | [phone] | | | | | [facility] 2 | | | | | | [place], [place] | | | | | | [address] | | | | | | [phone] | | | +--------+ + + + [...] | | | | | [place]a [place], | | | | | | [place] [address] | | | | | | [phone] | | | | | | | | +--------+---------+ + + + documented as of this encounter Visit Diagnoses Not on filedocumented in this encounter"
--- OUTSIDE RECORDS SUMMARY | ~2019-05-24 | XMS | Encounter Summary ---
Demographics + + + | Address | [address] | | | [place] [address] | + + + | Home Phone [...] Team Providers + +------+ + | Care Snow Remover Name | Role | Phone | + [...] on | Center at [facility] [address] | [address] | Received (Out of | | | | [address] | Amita [facility] | | | | Mailcode: [place] | [place] [address] | Authorization ) | | | | for Health and | [phone] | | | | | [facility] 2 | | | | | | [place], [place] | | | | | | [address] | | | | | | [phone] | | | +--------+ + + + [...] | | | | | Amita [place], | | | | | | [place] [address] | | | | | | [phone] | | | | | | | | +--------+---------+ + + + documented as of this encounter Visit Diagnoses Not on filedocumented in this encounter"
--- OUTSIDE RECORDS SUMMARY | ~2019-05-24 | XMS | Encounter Summary ---
Demographics + + + | Address | [address] | | | [place] [address] | + + + | Home Phone [...] Providers + +------+ + | Care Rn Corrections Name | Role | Phone | + [...] at [facility] [address] | [address] | | | | | [address] | Amita Hines [place], | | | | | Mailcode: [place] | [place] [address] | | | | | for Health and | [phone] | | | | | [facility] 2 | | | | | | [place], [place] | | | | | | [address] | | | | | | [phone] | | | +--------+ + + + [...] | | | | | [address] [place], | | | | | | [place] [address] | | | | | | [phone] | | | | | | | | +--------+---------+ + + + documented as of this encounter Visit Diagnoses Not on filecumented in this encounter"
--- OUTSIDE RECORDS SUMMARY | ~2019-05-24 | XMS | Encounter Summary ---
Demographics + + + | Address | [address] | | | [place] [address] | + + + | Home Phone [...] Team Providers + +------+ + | Care Neighborhood Conservation Officer Name | Role | Phone | [...] | | 2017 | | Center at [facility] [address] | [address] | Review | | | | [address] | Amita Hines [place], | | | | | Mailcode: [place] | [place] [address] | | | | | for Health and | [phone] | | | | | [facility] 2 | | | | | | [place], [place] | | | | | | [address] | | | | | | [phone] | | | +--------+ + + + [...] | | | | | [place], | | | | | | [place] [address] | | | | | | [phone] | | | | | | | | +--------+---------+ + + + documented as of this encounter Visit Diagnoses Not on filedocumented in this encounter"
--- OUTSIDE RECORDS SUMMARY | ~2019-05-24 | XMS | Encounter Summary ---
Demographics + + + | Address | [address] | | | [place] [address] | + + + | Home Phone [...] Team Providers + +------+ + | Care Cider Press Operator Name | Role | Phone [...] Rd | | | | | | [place], [place] | | | | | | [address] | | | +--------+ + + + [...] | | | | | | [place] [address] | | | | | | [phone] | | | | | | | [...]
--- OUTSIDE RECORDS SUMMARY | ~2019-05-24 | XMS | Encounter Summary ---
Demographics + + + | Address | [address] | | | [place] [address] | + + + | Home Phone [...] Providers + +------+ + | Care Elevator Repairer Name | Role | Phone | [...] | | | | Pre-operativ | [address] | | | | | | e | [address] | | | | | | cardiovascul | [place], | | | | | | ar | [place] | | | | | | examination | [address] | | | | | | Tobacco | Phone: | | | | | | abuse | [phone] | | | | | | Dyspnea, | Fax: | | | | | | unspecified | [phone] | | | | | | type [...] | | | | Pre-operativ | [address] | | | | | | e | [address] | | | | | | cardiovascul | [place], | | | | | | ar | [place] | | | | | | examination | [address] | | | | | | Tobacco | Phone: | | | | | | abuse | [phone] | | | | | | Dyspnea, | Fax: | | | | | | unspecified | [phone] | | | | | | type [...] | | | | | | [place] [address] | 9 Floor | | | | | | Phone: | [place], [place] | | | | | | [phone] | [address] | | | | | | Fax: | Phone: | | | | | | [phone] | [phone] | | | | | | | Fax: | | | | | | | [phone] | +--------+--------+ + + + + Encounter Details +--------+---------+ + + + | Date | Type | Department | Care Team | Description | +--------+---------+ + + + | 10/06/ | Office | Cardiology General | Bischof, Brittany | Dyspnea, unspecified | | 2017 | Visit | at [facility] [address] | [address], [address] | type (Primary Dx); | | | | [address] Mailcode: | [address] [place], | Pre-operative | | | | [facility] [facility] | [place] [address] | cardiovascular | | | | Health [facility] Healing, | [phone] | examination; Tobacco | | | | | | abuse; Aortic | | | | Floor [place], [place] | | systolic murmur on | | | | [address] | | examination | | | | [phone] | | | +--------+---------+ + + + [...] echo a nd dobutamine stress echo in [place], Call us back if they cannot get these done before 10/18/16 and we can do the tests at [facility].Electronically signed by WEN Gagnon 10/06/2016 8:38 [...] stents. He is 62. Her father of [place] at 52. History of Endocarditis or need for Endocarditis Prophylaxis? no History of Phen-Fen exposure? 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 She can walk up two [...] negative for ischemia. Outside records reviewed from [facility] (in media tab) Cardiac Risk Stratification (based [...] [address] Mailcode: [facility] [place] [address] [phone] signed by Brittany Laboy PA-C at 10/07/2016 [...] | | | | | Amita Hines [place], | | | | | | [place] [address] | | | | | | [phone] | | | | | | | [...] + + + | [facility] | [facility] | | [facility] [address] | CARDIOLOGY | | [address], [place] [address] Ph: | | | Pt Name: PAULETTE BYRNES | | | Study Date / Time 10/06/2016 / 11:17:12 AMMRN: [id number] | | | Most recent prior: 10/06/2016Acc #: | | | [id number] No. previous echos: 1DOB: | | | 1960 Age: 55 years Gender: FHeight: 63.0 in | | | BSA: 1.67 u1Gjtuai: | | | 142 lb Order ID: | | | [id number] medications: None.Indications: Preoperative | | | Evaluation Retirement Plan Counselor: Isaiah Min [facility] Referring Provider: Brittany Rojas Location: [facility] Performed: Definity contrast | | | and Dobutamine stress echo.History: Paultete Byrnes is a 55 y.o. | | [...] | | | RNSupervising Physician: Cole Chávez [facility] electronically | | | signed by: [id number] Cole Chávez MD (10/06/2016, 1:52:06 | | | PM)REPORT [id number] HOSP=PO REGION=A0 Final | | | | [...] MD | | |Report electronically signed by: [id number] Cole Chávez MD (10/06/2016, 1:52:06 | | |PM) | | |REPORT [id number] HOSP=PO REGION=A0 | | | | | | | | | | | | | | | | | | Final | | + + + + + | Procedure Note | + + | Interface, Cardiology Results - 10/06/2016 1:52 PM [facility] | | [facility] [address] [place] [address] | | [place], [place] [address] Pt Name: PAULETTE | | BRITTANY BYRNES Study Date / Time 10/06/2016 / 11:17:12 AMMRN: [id number] | | Most recent prior: 10/06/2016Acc #: [id number] No. previous | | echos: 1DOB: 1960 Age: 55 years Gender: FHeight: 63.0 in | | BSA: 1.67 h5Imefip: 142 lb Order ID: | | [id number] medications: None.Indications: Preoperative Evaluation Retirement Plan Counselor: | | Isaiah Min [facility] Referring Provider: Brittany Rojas Location: [facility] | | Performed: Definity contrast and [...] | Jose M Chávez electronically signed by: [id number] Cole Chávez MD (10/06/2016, | | 1:52:06 PM)REPORT [id number] HOSP=PO REGION=A0 Final | |predicted maximal heart [...] Chávez MD | |Report electronically signed by: [id number] Cole Chávez MD (10/06/2016, 1:52:06 | |PM) | |REPORT [id number] HOSP=PO REGION=A0 | | | | | | | | | | | | Final | + + + + + + + | Performing | Address | City/State/Zipcode | Phone Number | | Organization | | | | + + + + + | [facility] | [address] | [place], [place] | | | CARDIOLOGY | [address] | [address] | | + + + + + [...] formed At | + +---- + | [facility] | [facility] | | [facility] [address] | CAR DIOLOGY | | [address], [place] [address] Ph: | | | Pt Name: PAULETTE BYRNES | | | Study Date/Time 10/06/2016 / 8:59:07 AMN: [id number] | | | Most recent prior: -[facility] #: [id number] | | | No. previous echos: 0DOB: 1960 55 years Heart Rate: | | | 78 bpmHeight: 63.0 in Blood | | | Pressure: 131/69 mm/HgWeight: 142.0 lb | | | Gender: FBSA: 1.67 m2 | | | Order ID: [id number] Retirement Plan Counselor: Brandon Hwang MA, | | | [facility] Referring Provider: Brittany Rojas [...] Report electronically signed by: | | | [id number] Cole Chávez MD (10/06/2016, 10:21:24 AM)REPORT | | | [id number] HOSP=PO REGION=A0 Final | | | cm [...] | | | |Report electronically signed by: [id number] Cole Chávez MD (10/06/2016, 10:21:24 | | |AM) | | |REPORT [id number] HOSP=PO REGION=A0 | | | | | | | | | | | | Final | | + +---- + + + | Procedure Note | + + | Interface, Cardiology Results - 10/06/2016 10:21 AM PDT [facility] | | [facility] [address] [place] [address] | | [place], [place] [address] Pt Name: PAULETTE | | BRITTANY BYRNES Study Date/Time 10/06/2016 / 8:59:07 AMMRN: [id number] | | Most recent prior: -[facility] #: [id number] No. previous echos: 0DOB: | | 1960 55 years Heart Rate: 78 bpmHeight: 63.0 in Blood | | Pressure: 131/69 mm/HgWeight: 142.0 lb Gender: FBSA: | | 1.67 m2 Order ID: [id number] Retirement Plan Counselor: Brandon Hwang MA, | | RDCSReferring Provider: Brittany Rojas Location: [facility] Performed: | | 2D, Color flow, [...] | indexed values Report electronically signed by: [id number] Cole Chávez MD | | (10/06/2016, 10:21:24 AM)REPORT [id number] HOSP= REGION=A0 Final | |ventricular ejection fraction [...] | | | |Report electronically signed by: [id number] Cole Chávez MD (10/06/2016, 10:21:24 | |AM) | |REPORT [id number] HOSP=PO REGION=A0 | | | | | | | | Final | + + + + + + + | Performing | Address | City/State/Zipcode | Phone Number | | Organization | | | | + + + + + | [facility] | [address] | [place], [place] | | | CARDIOLOGY | [address] | [address] | | + + + + + [...] + + | [facility] | [address] | [place], [place] | | | CARDIOLOGY | [address] | [address] | | + + + + + [...]
--- OUTSIDE RECORDS SUMMARY | ~2019-05-24 | XMS | Encounter Summary ---
Demographics + + + | Address | [address] | | | [place] [address] | + + + | Home Phone [...] Team Providers + +------+ + | Care Linux Vmware Administrator Name | Role | Phone | [...] | 2019 | Visit | Center at [facility] [address] | [address] | (Primary Dx) | | | | [address] | Amita Hines [place], | | | | | Mailcode: [place] | [place] [address] | | | | | for Health and | [phone] | | | | | [facility], [facility] 2 | | | | | | [place], [place] | | | | | | [address] | | | | | | [phone] | | | +--------+---------+ + + + [...] rectal bleeding on 07/19/16 went [facility] ED CT abdomen/pelvis with IV [...] from anal verge presented at the [facility] Conference on 10/07/16 diagnosis: [...] Mendoza pouch staple line presented at [facility] Conference on 03/10/17. 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 No abdominal pain now. Took a narcotic pain pill a w poarch ago. Good appetite. Tolerating her diet. Intermittent [...] are negative. She comes for routine [facility] er surveillance. Objective: BP 151/84 | Pulse [...] Return/Re-evaluation patient, I spent 10 minutes of krdv-gz-bkci time, of which m ore than half [...] | | | | | Amita Hines [place], | | | | | | [place] [address] | | | | | | [phone] | | | | | | | [...] | + + + + + | [facility] | [address] | [place] [address] | | | SERVICES, CORE | [address] | | | + + + + + documented in this encounter Visit Diagnoses + + | Diagnosis | + + | 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
--- OUTSIDE RECORDS SUMMARY | ~2019-05-24 | XMS | Encounter Summary ---
Demographics + + + | Address | [address] | | | [place] [address] | + + + | Home Phone [...] Providers + +------+ + | Care Livestock Breeder Name | Role | Phone | + +------+ + | Justin Kristian | PCP | | + +------+ + Encounter Details +--------+------+ + + + | Date | Type | Department | Care Team | Description | +--------+------+ + + + | 02/20/ | Lab | Laboratory at [facility] | | Buzz ([facility]) | | 2018 | | [address] | | | | | | [place], [place] | | | | | | [address] | | | | | | [phone] | | | +--------+------+ + + + [...] | | | | | Suzy Hines [place], | | | | | | [place] [address] | | | | | | [phone] | | | | | | | [...] | + + + + + | [facility] | [address] | [place] [address] | | | SERVICES, CORE | [address] | | | + + + + + documented in this encounter Visit Diagnoses + + | Diagnosis | + + | CA of rectum (HCC) Malignant neoplasm of rectum | + + documented in this encounter"
--- OUTSIDE RECORDS SUMMARY | ~2019-05-24 | XMS | Encounter Summary ---
Demographics + + + | Address | [address] | | | [place] [address] | + + + | Home Phone [...] Providers + +------+ + | Care Rn Med Surg Name | Role | Phone | + [...] | 2017 | | Center at [facility] [address] | [address] | Received (MRI) | | | | [address] | Amita Hines [place], | | | | | Mailcode: [place] | [place] [address] | | | | | for Health and | [phone] | | | | | [facility] 2 | | | | | | [place], [place] | | | | | | [address] | | | | | | [phone] | | | +--------+ + + + [...] | | | | | Amita Hines [place], | | | | | | [place] [address] | | | | | | [phone] | | | | | | | | +--------+---------+ + + + documented as of this encounter Visit Diagnoses Not on filedocumented in this encounter"
--- OUTSIDE RECORDS SUMMARY | ~2019-05-24 | XMS | Encounter Summary ---
Demographics + + + | Address | [address] | | | [place] [address] | + + + | Home Phone [...] Providers + +------+ + | Care Clinical Lab Specialist Name | Role | Phone | + +------+ + | Silvioct Kristian | PCP | | + +------+ + Encounter Details +--------+------+ + + + | Date | Type | Department | Care Team | Description | +--------+------+ + + + | 11/27/ | Lab | Laboratory at [facility] [place] [facility] | | Rectal cancer (HCC) | | 2019 | | [address] | | | | | | [place], [place] | | | | | | [address] | | | | | | [phone] | | | +--------+------+ + + + [...] | | | | | Suzy Hines [place], | | | | | | [place] [address] | | | | | | [phone] | | | | | | | [...] + + + + + | [facility] | [address] | [place] [address] | | | SERVICES, CORE | [address] | | | + + + + + documented in this encounter Visit Diagnoses + + | Diagnosis | + + | Rectal cancer (HCC) Malignant neoplasm of rectum | + + documented in this encounter"
--- OUTSIDE RECORDS SUMMARY | ~2019-05-24 | XMS | Encounter Summary ---
Demographics + + + | Address | [address] | | | [place] [address] | + + + | Home Phone [...] Providers + +------+ + | Care Clinic Office Assistant Name | Role | Phone | [...] 2019 | Encounter | Center at [facility] [address] | [address] | | | | | [address] | Amita Hines [facility] | | | | | Mailcode: [place] | [place] [address] | | | | | for Health and | [phone] | | | | | [place] [address] | | | | | | [place], [place] | | | | | | [address] | | | | | | [phone] | | | +--------+ + + + [...] | | | | | Amita Hines [place], | | | | | | [place] [address] | | | | | | [phone] | | | | | | | | +--------+---------+ + + + documented as of this encounter Visit Diagnoses Not on filedocumented in this encounter"
--- OUTSIDE RECORDS SUMMARY | ~2019-05-24 | XMS | Encounter Summary ---
Demographics + + + | Address | [address] | | | [place] [address] | + + + | Home Phone [...] Providers + +------+ + | Care Gas Controller Name | Role | Phone | + [...] | | [address] | Amita Hines [place], | | | | | Mailcode: [place] | [place] [address] | | | | | for Health and | [phone] | | | | | [facility], [facility] 2 | | | | | | [place], [place] | | | | | | [address] | | | | | | [phone] | | | +--------+ + + + [...] | | | | | Amita Hines [place], | | | | | | [place] [address] | | | | | | [phone] | | | | | | | | +--------+---------+ + + + documented as of this encounter Visit Diagnoses Not on filedocumented in this encounter"
--- OUTSIDE RECORDS SUMMARY | ~2019-05-24 | XMS | Encounter Summary ---
Demographics + + + | Address | [address] | | | [place] [address] | + + + | Home Phone [...] Team Providers + +------+ + | Care Stamping Machine Operator Name | Role | Phone [...] | 2017 | | Center at [facility] [address] | [address] | Received (MRI) | | | | [address] | Amita iHnes [place], | | | | | Mailcode: [place] | [place] [address] | | | | | for Health and | [phone] | | | | | [facility] 2 | | | | | | [place], [place] | | | | | | [address] | | | | | | [phone] | | | +--------+ + + + [...] | | | | | Amita Hines [place], | | | | | | [place] [address] | | | | | | [phone] | | | | | | | | +--------+---------+ + + + documented as of this encounter Visit Diagnoses Not on filedocumented in this encounter"
--- OUTSIDE RECORDS SUMMARY | ~2019-05-24 | XMS | Encounter Summary ---
Demographics + + + | Address | [address] | | | [place] [address] | + + + | Home Phone [...] Team Providers + +------+ + | Care Systems Security Consultant Name | Role | Phone | [...] | | | | CT ABDOMEN | [place], [place] | Mailcode: | | | | | [address] [place] | [address] | [address] [facility] | | | | | W IV | Phone: | Hospital | | | | | CONTRAST [place] | [phone] | [place], [place] | | | | | CT | Fax: | [address] | | | | | ABDOMEN&PELV | [phone] | Phone: | | | | | IS | | [phone] | | | | | W/CONTRAST | | Fax: | | | | | | | [phone] | +--------+--------+ + + + + Reason [...] | | | | CT ABDOMEN | [place], [place] | Mailcode: | | | | | [place] | [address] | [address] [facility] | | | | | W IV | Phone: | Hospital | | | | | CONTRAST [place] | [phone] | [facility] [place] | | | | | [place] | Fax: | [address] | | | | | ABDOMEN&PELV | [phone] | Phone: | | | | | IS | | [phone] | | | | | W/CONTRAST | | Fax: | | | | | | | [phone] | +--------+--------+ + + + + Encounter Details +--------+ + + + + | Date | Type | Department | Care Team | Description | +--------+ + + + + | 10/05/ | Hospital | Radiology/Imaging | Ailyn Wolff MD | | | 2017 | Encounter | Lab at [facility] [address] | [address] | | | | | [address] Mailcode: | Amita Hines [place], | | | | | [facility] | [place] [address] | | | | | Health and Healing, | [phone] | | | | | [address] | | | | | | [place], [place] | | | | | | [address] | | | | | | [phone] | | | +--------+ + + + [...] | | | | | Amita Hines [place], | | | | | | [place] [address] | | | | | | [phone] | | | | | | | [...]
--- OUTSIDE RECORDS SUMMARY | ~2019-05-24 | XMS | Encounter Summary ---
Demographics + + + | Address | [address] | | | [place] [address] | + + + | Home Phone [...] Team Providers + +------+ + | Care Research/Program Director Name | Role | Phone | [...] | 2018 | Encounter | Center at [facility] [address] | [address] | | | | | [address] | Amita Hines [place], | | | | | Mailcode: [place] | [place] [address] | | | | | for Health and | [phone] | | | | | [facility], [facility] 2 | | | | | | [place], [place] | | | | | | [address] | | | | | | [phone] | | | +--------+ + + + [...] | | | | | Amita Hines [place], | | | | | | [place] [address] | | | | | | [phone] | | | | | | | | +--------+---------+ + + + documented as of this encounter Visit Diagnoses Not on filedocumented in this encounter"
--- OUTSIDE RECORDS SUMMARY | ~2019-05-24 | XMS | Encounter Summary ---
Demographics + + + | Address | [address] | | | [place] [address] | + + + | Home Phone [...] Team Providers + +------+ + | Care Gold Buyer Name | Role | Phone | [...] | 2017 | | Center at [facility] [address] | [address] | Received (Images | | | | [address] | [facility], | requested 10/24/16 | | | | Mailcode: [place] | [place] [address] | EU[place]) | | | | for Health and | [phone] | | | | | [facility], [facility] 2 | | | | | | [place], [place] | | | | | | [address] | | | | | | [phone] | | | +--------+ + + + [...] | | | | | Amita Hines [place], | | | | | | [place] [address] | | | | | | [phone] | | | | | | | | +--------+---------+ + + + documented as of this encounter Visit Diagnoses Not on filedocumented in this encounter"
--- OUTSIDE RECORDS SUMMARY | ~2019-05-24 | XMS | Encounter Summary ---
Demographics + + + | Address | [address] | | | [place] [address] | + + + | Home Phone [...] Providers + +------+ + | Care Laundry Housekeeping Aide Name | Role | Phone | [...] | | | | CONSULT TO | [place], [place] | [address] | | | | | RADIATION | [address] | [address] [place], | | | | | ONCOLOGY | Phone: | [place] | | | | | | [phone] | [address] | | | | | | Fax: | Phone: | | | | | | [phone] | [phone] | | | | | | | Fax: | | | | | | | [phone] | +--------+--------+ + + + + Encounter Details +--------+---------+ + + + | Date | Type | Department | Care Team | Description | +--------+---------+ + + + | 06/14/ | Office | Radiation Oncology | Wade Sherman, | Rectal cancer (HCC) | | 2017 | Visit | at [facility] [address] | [address] | (Primary Dx) | | | | [address] | [address] | | | | | [address] | [place], [place] | | | | | [place], [place] | [address] | | | | | [address] | [phone] | | | | | [phone] | | | +--------+---------+ + + + [...] 1 Years of education: 12 Occupational History [employer] Social History Main Topics Smoking status: Former Smoker Packs/day: 1.50 Years: 41.00 Quit date: 07/19/2016 Smokeless tobacco: Former User Alcohol use No Drug use: No Sexual activity: Not Currently Other Topics Concern Not on file Social History Narrative No narrative on file Family History: Family History Problem Relation Cancer Mother breast Hypertension Mother Heart Attack Father from [place] at age 52 Diabetes Father Heart Attack [...] IORT to 1 cm depth per the [facility] experience while retracting all small bowel and ureters out of the field (PMID [id number]) Wade Sherman MD CC: A copy of [...] | | | | | Amita Hines [place], | | | | | | [place] [address] | | | | | | [phone] | | | | | | | | +--------+---------+ + + + documented as of this encounter Visit Diagnoses + + | Diagnosis | + + | Rectal cancer (HCC) - Primary Malignant neoplasm of rectum | + + documented in this encounter
--- OUTSIDE RECORDS SUMMARY | ~2019-05-24 | XMS | Encounter Summary ---
Demographics + + + | Address | [address] | | | [place] [address] | + + + | Home Phone [...] Providers + +------+ + | Care Fire Eater Name | Role | Phone | + [...] | | | | [facility] | [place], [place] | | | | | [address] [address] | [address] | | | | | [place], [place] | | | | | | [address] | | | | | | [phone] | | | +--------+ + + + [...] | | | | | Amita Hines [place], | | | | | | [place] [address] | | | | | | [phone] | | | | | | | | +--------+---------+ + + + documented as of this encounter Visit Diagnoses Not on filedocumented in this encounter"
--- OUTSIDE RECORDS SUMMARY | ~2019-05-24 | XMS | Encounter Summary ---
Demographics + + + | Address | [address] | | | [place] [address] | + + + | Home Phone [...] Team Providers + +------+ + | Care Coverstitch Elastic Attacher Name | Role | Phone | + +------+ + | Kristian Anderson DO | PCP | | + +------+ + Encounter Details +--------+ + + + + | Date | Type | Department | Care Team | Description | +--------+ + + + + | 06/30/ | Procedure | 6A Intra Op [facility] | | | | 2017 | Pass | [facility] | | | | | | Admitting Desk | | | | | | Located on the 9th | | | | | | floor [address] [facility] | | | | | | [address] | | | | | | [place], [place] | | | | | | [address] | | | +--------+ + + + [...] | | | | | Amita Hines [place], | | | | | | [place] [address] | | | | | | [phone] | | | | | | | | +--------+---------+ + + + documented as of this encounter Visit Diagnoses Not on filedocumented in this encounter"
[~2019-05-24 14:38] MED LIST changes: +CLARITIN10 MG PO; -POTASSIUM 25 M25 MEQ PO; +POTASSIUM CHLO20 ME1 PO
--- NOTE | 2019-05-24 18:17 | NUR ---
180: PT ARRIVED TO MED-SURG ROOM 107. SHE DENIES ANY PAIN OR NAUSEA AT THIS TIME. NG IS IN PLACE AND PLACED TO LOW INTERMIT SUCTION AT THIS TIME. PT ORIENTED TO HER ROOM AND THE USE OF THE CALL BROWNE.
--- NOTE | 2019-05-24 18:43 | NUR ---
ON ARRIVAL THE PT'S SAT WAS IN THE MID 80'S TO 94%, O2 PLACED AT 2L AND SAT INCREASED INTO AND STAYED IN THE 90'S. PT PLACED ON CPOX. SCD'S PLACED. NGT PLACED TO LIWS. PT DENIES ANY PAIN, NAUSEA OF SOB AT THIS TIME.
--- NOTE | 2019-05-24 19:35 | NUR ---
PATIENT GOT HERE JUST BEFORE SHIFT CHANGE AND IS BEING EVALUATED BY DR. POSADA, REPORT GIVEN TO ME BY MILADYS REYES.
--- NOTE | 2019-05-24 20:33 | NUR ---
PATIENT JUST UP TO THE BATHROOM AND VOIDED WITH MILADYS RIVERO AND IS CURRENTLY SEEING THE PATIENT.
--- NOTE | 2019-05-24 23:18 | NUR ---
PATIENT HAS DECIDED TO STOP KLITTING AND GO TO SLEEP. D5LR RUNNING AT 100/HR, IV LOOKS GOOD , HEADACHE IMPROVED, SCD'S IN PLACE, PATIENT NPO. PATIENT'S PHONE PLUGGED IN. CALL LIGHT IN REACH. NG TO LIWS. NO OTHER NEEDS AT THIS TIME.
--- NOTE | 2019-05-25 01:01 | NUR ---
PATIENT RESTING QUIETLY SUPINE, EYE MASK ON, EQUAL AND REGULAR RESPIRATIONS, SATS 97% ON 2L/NC AND HR=88, NG TO LIWS. CALL LIGHT IN REACH.
--- NOTE | 2019-05-25 01:31 | NUR ---
PATIENT UP TO THE BATHROOM WITH 1PSBA AND FWW, VOIDED, BUT MISSED THE HAT. BACK IN HER CHAIR RESTING NOW. CALL LIGHT IN REACH.
--- NOTE | 2019-05-25 02:59 | NUR ---
PATIENT UP TO THE BATHROOM WITH 1PSBA. RIGHT THUMB IV PEEPING, SORE, AND PATIENT WOULD LIKE THE SITE CHANGED. NEW 22G IV PLACED IN LFA AND IV FLUIDS RUNNING WNL. THUMB IV REMOVED INTACT. PATIENT HAVING 6/10 ABD/ AND THROAT PAIN FROM NG. 1MG IV DILAUDID GIVEN AND PATIENT PAIN FREE AT THIS POINT AND GOING BACK TO SLEEP. CALL LIGHT IN REACH.
--- NOTE | 2019-05-25 06:17 | NUR ---
PATIENT DID NOT SLEEP WELL THE FIRST PART OF THE SHIFT, DUE TO HER NG AND SORE THROAT PAIN. SHE DID GET 1MG OF IV DILAUDID X2 WITH 4MG IV ZOFRAN IV X2 DUE TO SOME SLIGHT NAUSEA FROM THE DILAUDID. PATIENT ALSO HAD SOME IV TORADOL FOR A HEAD ACHE EARLY IN THE SHIFT WHICH ALLOWED HER TO SLEEP FOR AWHILE. PATIENT BASICALLY INDEPENDENT TO THE BATHROOM ONCE DISCONNECTED FROM LINES. IS HERE NOW AND CEPACOL SPRAY BEING ORDERED. PATIENT'S IV SITE WAS CHANGED DURING THE NIGHT DUE TO PAIN. SCD'S ARE ON AND NG TUBE STILL TO LIWS. PATIENT COMFORTABLE AT THIS TIME AND RESTING QUIETLY. REMAINS STABLE ON CPOX MONITORING. CALL LIGHT IN REACH.
--- NOTE | 2019-05-25 06:20 | CONS ---
[facility] [address], [place] [address] Signed DATE OF CONSULTATION: 05/24/2019 CHIEF COMPLAINT: Left lower quadrant abdominal pain. HISTORY OF PRESENT ILLNESS: Jenn is a 58-year-old female, who came in June 2016 with an abscess and necrotic perforated rectal cancer requiring drainage. In due time, she underwent a 10.5 hour low anterior resection at [facility] with Dr. Ailyn Wolff. In the meantime, she has done very well. Of course, she received pelvic radiation and chemotherapy. I have been watching her here locally as a general surgeon. She had a colonoscopy earlier this year and it was fine except for some diverticulosis. She had a peristomal hernia for quite some time. We have been watching that conservatively. Earlier today, she was having significant pain in that area with crampy waves of pain. She was distended and ended up coming to the emergency room for evaluation. In the emergency room, it is clear she has a peristomal hernia. She is moderately distended, but no peritonitis. White count was normal. CT scan of course confirmed an increase in the size of the parastomal hernia. There were three loops of small bowel, which were quite dilated obviously representing her small bowel obstruction with proximal bowel also dilated back to the stomach. In the meantime, an NG tube is in place and she has been started on IV fluids. I was asked to admit her with respect to the above. ALLERGIES: Darvocet and possibly silk tape. MEDICATIONS: Escitalopram, magnesium, multivitamin, oxybutynin, potassium chloride, Tylenol, clobetasol, ibuprofen, nystatin, and loratadine. 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 PAST SURGICAL HISTORY: D and C x2, kidney stones, drainage of pelvic abscess in June 2016, low anterior resection in 2016, and multiple colonoscopies. The last of which was in September 2018, Port-A-Cath removal in November 2017, facial cyst removals, kidney stone removal, and also right carpal tunnel release. SOCIAL HISTORY: Jenn smoked since age of 14, but she quit in 2015 when she was diagnosed with rectal Electronically Signed By: CARLOS POSADA MD 05/25/19 0620 PATIENT NAME: JENN BYRNES CONSULTATION DATE OF : 56 REPORT #: [id number] PHYSICIAN: CARLOS POSADA MD PCP: KRISTIAN LOPEZ DO REPORT IS CONFIDENTIAL AND NOT TO BE RELEASED WITHOUT AUTHORIZATION [facility] [address], [place] [address] Signed cancer. She likes couple cups of coffee a day. She is now a . She has one son at #[phone]. She prefers the [facility]. 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 Dr. Kristian Lopez is her primary care provider, Dr. Jersey Wolff is a colorectal surgeon, Dr. Sirena Islas is her medical oncologist, and Dr. Rossana Knowles is her pool nurse, Dr. Tere Landeros is her urologist. FAMILY HISTORY: Dad had a heart attack and at age 52. Mother had breast cancer. REVIEW OF SYSTEMS: Jenn had 10 systems reviewed and she said overall she has been doing fine except she continues to gain weight since she has had surgery associated with rectal cancer. She is always in good spirits and the parastomal hernia has been increasing in size over the last couple years. PHYSICAL EXAMINATION: VITAL SIGNS: Her blood pressure is 141/71, heart rate is 85, respiratory rate of 16, and temperature is 98.2. She is 96% on room air. She is 5 feet 3 inches at 90 kg. GENERAL: Jenn is a 58-year-old female, who appears older than her stated age. She has obviously been a long-time smoker. She was initially 137 pounds. She is up around 200 pounds at this point. LUNGS: Clear to auscultation bilaterally. HEART: Regular rate and rhythm without murmur. ABDOMEN: Obese, but generally soft, little distended. She clearly has a large parastomal hernia associated with the left lower quadrant colostomy. Her midline incision is well healed. We could not reduce it currently here in the hospital. LABORATORY DATA: White blood cell count is 8.8, neutrophils 81, and hemoglobin 13. BUN 15, creatinine 0.7, and glucose 102. Urinalysis showed bacteria, white blood cells, red blood cells, and nitrites. Her urine culture is pending. Her albumin is 4.5. Liver function tests are negative. RADIOGRAPHIC STUDIES: Chest x-ray was performed and showed the NG tube right at the GE junction. The nurses have since advance that. She had a CT scan of the abdomen and pelvis performed and I did review those images along with the report. She clearly has moderate to large parastomal hernia containing through loops of small bowel, 2 of which were dilated and all the proximal small bowel back to the stomach is dilated and fluid filled. We can see the myrna in the small bowel in the right lower quadrant from her previous small bowel resection. At times, she had abdominoperineal resection. She also has fairly significant peripheral arterial disease and a cyst in her left kidney. Electronically Signed By: CARLOS POSADA MD 05/25/19 0620 PATIENT NAME: JENN BYRNES CONSULTATION DATE OF : 56 REPORT #: [id number] PHYSICIAN: CARLOS POSADA MD PCP: KRISTIAN LOPEZ DO REPORT IS CONFIDENTIAL AND NOT TO BE RELEASED WITHOUT AUTHORIZATION [facility] [address], [place] [address] Signed ASSESSMENT AND PLAN: Jenn is a 58-year-old female presents with incarcerated parastomal hernia resulting in small bowel obstruction. She has been admitted and an NG tube is in place. We are going to treat her conservatively overnight. We will reassess in the morning. It looks like she is going to need surgery here on this admission to relieve this hernia; therefore, a small bowel obstruction. Jenn and I actually talked about this in the office. She is quite aware of this situation. She has expressed understanding and would like to proceed as above Carlos Posada MD ALB/MODL /[id number] cc: MD Kristian Rodriguez DO Andrew L Bower, MD Robert C Quackenbush, MD Patricia J Winn, MD Kim Lu, MD Copies: LANDEROS,TERE KRISTIAN SOMMERS ANDREW L MD QUACKENBUSH,SIRENA KNOWLES,AILYN PLASENCIA MD, MD ~ Electronically Signed By: CARLOS POSADA MD 05/25/19 0620 PATIENT NAME: JENN BYRNES CONSULTATION DATE OF : 56 REPORT #: [id number] PHYSICIAN: CARLOS POSADA MD PCP: KRISTIAN LOPEZ DO REPORT IS CONFIDENTIAL AND NOT TO BE RELEASED WITHOUT AUTHORIZATION
--- NOTE | 2019-05-25 07:35 | NUR ---
0723: Report recieved from Rafy HOOK. Pt resting in her bed. NG is to LIWS and draining. CPOX and o2 at 2l is on and sat is in the 90's. Pt now states her pain and nausea are under good control after having some nasuea and vomiting for the prior shift. Call ma within reach.
--- NOTE | 2019-05-25 07:53 | NUR ---
PT DENIES ANY NAUSEA OR PAIN AT THIS TIME. SAT IS NO2 94% ON 2L AND AFTER HAVING BEEN MEDICATED FOR NAUSEA AND PAIN BY THE PRIOR SHIFT. PT ALSO DENIES ANY OTHER PROBLEMS AND SHE IS WATCHING TV AT THIS TIME.
--- NOTE | 2019-05-25 10:17 | NUR ---
PT AMBULATED TO THE BR WITH A SBA AND MOVES WELL AND IS STEADY ON HER FEET. SHE DENIES ANY PAIN, NAUSEA OR SOB. PT NOW SITTING UP IN HER CHAIR WATCHING TV.
--- NOTE | 2019-05-25 10:49 | NUR ---
PT SITTING UP IN HER CHAIR TALKING WITH HER VISITOR. SHE DENIES ANY PROBLEMS AT THIS TIME.
[2019-05-25] MEDS ORDERED: MYRBETRIQ50 MG PO (11:41)
[2019-05-25] MEDS ORDERED: WELLBUTRIN XL300 MG PO (11:41)
[2019-05-25] MEDS ORDERED: LAMICTAL25 MG PO (11:43)
--- NOTE | 2019-05-25 11:55 | NUR ---
PT COMPLAINS OF A SORE THROAT AND A HAGER. PT MEDICATED ORDERED FOR BOTH, SEE EMAR. PT DARRICK ANY OTHER PROBLEMS AT THIS TIME.
--- NOTE | 2019-05-25 12:27 | NUR ---
PT STATES HER SORE THROAT AND HAGER HAVE BOTH IMPORVED FOLLOWING BEING MEDICATED.
--- NOTE | 2019-05-25 13:00 | NUR ---
PT SITTTING IN CHAIR, NG TUBE IN PLACE. PT MENTIONED THAT SHE EXPECTS SURGERY THIS WEEKEND. THANKED ME FOR COMING IN, GAVE BLESSING. WILL FOLLOW NEEDED.
--- NOTE | 2019-05-25 13:24 | NUR ---
PT RESTING IN HER BED WATCHING TV AND SHE STATES HER HAGER IS NOW GONE AND THE THROAT PAIN FROM THE NG IS UNDER GOOD CONTROL. PT IS PLANNING FOR SURGERY TOMORROW AND PRE-OP TEACHING WAS GIVEN WITH UNDERSTANDING STATED. CONSENT WAS SIGNED BY PAULETTE. NG CONTINUES DRAINING GREEN COLORED DRAINAGE WITH LIWS. COLOSTOMY IS PRODUCING A SCANT AMOUNT OF STOOL AND HER ABD SOUNDS ARE ACTIVE. CALL BROWNE WITHIN REACH.
--- NOTE | 2019-05-25 14:30 | NUR ---
Met with Jenn, She lives alone in a 2 story house with 19 steps to he appt. Has assist from step daughter. Has a walker she does not need or use. Unsure if she will need depending on SBF today. She has been disabled for 2 years.
--- NOTE | 2019-05-25 16:32 | NUR ---
PT COMPLAINS OF A SORE THROAT AND SHE REQUESTED THE CHORASEPTIC SPRAY WHICH SHE WAS GIVEN. PAULETTE STATES THAT THE SPRAY IS ALREADY HELPING HER THROAT.
--- NOTE | 2019-05-25 17:55 | NUR ---
PT RESTING IN HER CHAIR AFTER USING THE BR. SHE DENIES ANY NEW PROBLEMS AT THIS TIME. VSS.
--- NOTE | 2019-05-25 18:53 | NUR ---
I ASKED PATIENT IF SHE WOULD LIKE TO TAKE A SHOWER TODAY AND SHE SAID NO BECAUSE SHE TOOK ONE BEFORE SHE CAME TO THE HOSPITAL YESTERDAY.
--- NOTE | 2019-05-25 18:56 | NUR ---
RECEIVED REPORT FROM MILADYS REYES. pt IN CHAIR VISITING. WHITEBOARD UPDATED. CALL LIGHT WITHIN REACH.
--- NOTE | 2019-05-25 20:10 | NUR ---
SEVERAL VISITORS IN ROOM. IV ABX INFUSING (SEE MAR). pt REPORTED A 3/10 HEADACHE, PRN PAIN MED GIVEN. NEW FLUIDS HUNG. CALL LIGHT WITHIN REACH.
--- NOTE | 2019-05-25 20:27 | NUR ---
HELPED PT TO THE BATHROOM AND BACK TO BED. WARM BLANKET, HEAT TURNED UP AND VITALS and i&os DONE AND CHARTED. ROOM CLEANED UP.
--- NOTE | 2019-05-25 20:59 | NUR ---
ABX INFUSION COMPLETE. VISITORS LEFT ROOM. ASSESSMENT DONE. pt REPORT HEADACHE IS "STILL THROBBING." STATE SHE NORMALLY DRINKS CAFFEINE. COLOSTOMY BAG BURPED. IVF INFUSING. NG TO LIS. UPDATED ON PLAN OF CARE. NO REQUESTS AT THIS TIME. CALL LIGHT AND POSSESSIONS WITHIN REACH.
--- NOTE | 2019-05-25 22:05 | NUR ---
CALL LIGHT ON. LIGHTS OFF PER REQUEST. CALL LIGHT WITHIN REACH
--- NOTE | 2019-05-25 23:59 | NUR ---
ROUNDED ON pt. RESTING WITH EYES CLOSED, RESPIRATIONS REGULAR AND UNLABORED. CALL LIGHT WITHIN REACH.
--- NOTE | 2019-05-26 00:36 | NUR ---
CALL LIGHT ON. CPOX ALARMING, pt REPLACED NC IN NOSE. CALL LIGHT WITHIN REACH.
--- NOTE | 2019-05-26 01:51 | NUR ---
CALL LIGHT ON. pt HAD INCONT VOID, UP TO TOILET. DEPENDS CHANGED, LINENS CHANGED. BACK TO BED. ASSESSMENT DONE. MEDICATION GIVEN (SEE MAR). NO FURTHER REQUESTS AT THIS TIME. CALL LIGHT WITHIN REACH.
--- NOTE | 2019-05-26 04:21 | NUR ---
ROUNDED ON pt. RESTING WITH EYES CLOSED, RESPIRATIONS REGULAR AND UNLABORED. CALL LIGHT WITHIN REACH.
--- NOTE | 2019-05-26 05:05 | NUR ---
pt RESTED MOST OF SHIFT. INCONTIENT OF URINE. COLOSTOMY. NG TUBE TO LIS. IVF AND IV ABX. 2L O2 VIA NC. PRN PAIN MED FOR HEADACHE USES CALL LIGHT APPROPRIATELY.
--- NOTE | 2019-05-26 06:17 | EKG ---
[facility] [address] [facility] [place] [address] Signed Normal sinus rhythm Low voltage QRS Cannot rule out Anterior infarct , age undetermined Abnormal ECG When compared with ECG of 15-APR-2018 10:48, No significant change was found Confirmed by CRISTOFER CHI MD ([id number]) on 05/26/2019 6:17:21 AM Electronically Signed By: CRISTOFER CHI MD 05/26/19 0617 PATIENT NAME: PAULETTE BYRNES Electrocardiogram DATE OF : 56 PHYSICIAN: CRISTOFER CHI MD REPORT #: [id number] REPORT IS CONFIDENTIAL AND NOT TO BE RELEASED WITHOUT AUTHORIZATION
--- NOTE | 2019-05-26 06:52 | NUR ---
pt UP TO VOID. HIBA CLEANSE DONE. VITALS AND I&O RECORDED. pt SITTING IN CHAIR. CALL LIGHT WITHIN REACH.
--- NOTE | 2019-05-26 07:31 | NUR ---
NEW BAG OF D5LR INFUSING PER MD ORDERS PER PRIMARY RN JAY JAY'S REQUEST. NO FRTHER NEEDS, IV SITE WNL. CALL LIGHT IN REACH.
--- NOTE | 2019-05-26 09:30 | NUR ---
PT LEFT UNIT FOR SURGERY.
--- NOTE | 2019-05-26 09:49 | NUR ---
PATIENT AWAY AT PROCEDURE
--- NOTE | 2019-05-26 11:49 | NUR ---
PATIENT OUT TO SURGERY AT THIS TIME. LINENS CHANGED AND READJUSTED NEEDED.
--- NOTE | 2019-05-26 11:58 | NUR ---
05/26/19 1158 Magalie Hanks 1140-PT ARRIVES TO PACU FROM OR ON 10 L VIA MASK WITH ORAL AIRWAY IN PLACE. NON RESPONSIVE TO VERBAL STIMULUS. CATHETER IN PLACE. NG TUBE ON LOW INTERMITTENT SUCTION. TELEPHONE SERVICES SALES REPRESENTATIVE AT BEDSIDE. VSS. 1145- VSS. PT MOVES HANDS TO FACE TO TAKE OFF O2 MASK. PT REDIRECTED AND REACTIVE TO VERBAL COMMANDS. PT OPENS EYES AND RESPONDS TO NAME. 10 L VIA MASK CONTINUED AND ORAL AIRWAY REMAINS IN PLAC PER TELEPHONE SERVICES SALES REPRESENTATIVE ORDERS TO KEEP IN SINCE PT HAS OBSTRUCTIVE SLEEP APNEA. PT BACK TO SLEEP. 1152- PT GAGS ON ORAL AIRWAY. TELEPHONE SERVICES SALES REPRESENTATIVE AT BEDSIDE REMOVES AIRWAY AND PT RESPONDS TO HIS COMMANDS. COUGH AND DEEP BREATHES. PT BACK TO SLEEP EASILY. PILLOW GIVEN TO SPLINT ABDOMEN. 1157- PT REMAINS ASLEEP. VSS. 10 L CONTINUED. IV TYLENOL STARTED
--- NOTE | 2019-05-26 13:20 | NUR ---
PT BACK TO FLOOR FROM SURGERY. PT AWAKE. A&OX4, PT RESPONDING TO QUESTIONS APPROPRIATELY. PT REPORTS 2/10 ABD PAIN. ABD INCISION COVERED, CDI. LLQ COLOSTOMY APPLIANCE INTACT, STOMA BEEFY RED, SKIN SURROUNDING STOMA IS PINK. ICE OVER INCISION. VS STABLE. CPOX INTACT, SAT LEVEL OF 96% ON 3L. PT ORIENTED TO ROOM AND CALL LIGHT. ICE GIVEN. NO NEEDS AT THIS TIME. KAMARA INTACT. NG INTACT, PATENT AND PLACED BACK TO [facility].
--- NOTE | 2019-05-26 14:10 | NUR ---
PT A&OX4, ON 3L OXYGEN PER NC, SAT LEVEL OF 95%. PT REPORTS 2/10 ABD PAIN. DRESSING TO ABD CDI, COLOSTOMY TO LLQ CDI. VS STABLE. KAMARA PATENT, DRAINING CLR YELLOW URINE. ENCOURAGED CDB. NG TO LIWS; LIGHT GREEN GASTRIC CONTENT DRAINING. PT DENIES NEEDS AT THIS TIME.
--- NOTE | 2019-05-26 14:57 | NUR ---
ADMIN DILADID 0.5MG IVP FOR PAIN.
--- NOTE | 2019-05-26 15:36 | NUR ---
Pt awake, a&ox4. PT reports improved abd pain, 4/10. Dressing to abd is CDI. Ice over incision. Agarwal intact, patent and draining clear yellow urine. PT is on 2l oxygen, sat level of 94%. Call light within reach. No needs at this time.
--- NOTE | 2019-05-26 18:23 | NUR ---
ADMIN TORADOL 30MG IVP FOR REPORTS OF 5/10 ABD PAIN.
--- NOTE | 2019-05-26 20:02 | NUR ---
RECEIVED REPORT FROM DAY SHIFT RN. PATIENT IS RESTING IN BED PLAYING IN HER FlexenclosurePUTER. NO NEEDS NOTED. PATIENT DENIES ANY PAIN OR NAUSE. CALL LIGHT IN REACH. FRIEND PRESENT IN THE ROOM.
--- NOTE | 2019-05-26 20:10 | NUR ---
PATIENT ASSESMENT COMPLETED. PATIENT IS RESTING IN BED VISITING WITH A FRIEND. PATIENT DENIES ANY PAIN OR NASUEA. PATIENTS IV IS INFUSING PER ORDER. PATIENTS EVENING MEDICATIONS GIVEN PER ORDER. PATIENT HAS DRESSING ON RLQ THAT IS C/D/I NO DRAINAGE NOTED. PATIENT HAS OSTOMOY ON LLQ AIR IS PRESENT AND HAS INCREASED SINCE REPORT, THERFORE PATIENT IS BELEIVED TO BE PASSING GAS. ACTIVE BOWEL TONES NOTED. PATIENT DENIES ANY FURTHER NEEDS. CALL LIGHT IN REACH.
--- NOTE | 2019-05-26 23:17 | NUR ---
PATIENT RATES PAIN AT A 4/10. PATIENT GIVEN PRN TYLENOL PER ORDER. PATIENT DENIES ANY FURTHER NEEDS. IV INFUSING PER ORDER. PATIENTS KAMARA IS DRAINING CLEAR YELLOW URINE. PATIENTS NG IS ON LWIS AND DRAINAINGE LIGHT YELLOW FLUID. NO FURTHER NEEDS NOTED. CALL LIGHT IN REACH.
--- NOTE | 2019-05-27 01:47 | NUR ---
PATIENT IS RESTING IN BED. PATIENTS VITALS TAKEN AND RECORDED. KAMARA EMPTIED. INTAKE AND OUPUT RECORDED. PATIENT DENIES ANY PAIN OR NAUSEA. PATIENT HAS NG THAT REMAINS ON LWIS. PATIENTS OSTOMY BAG CONTINUES TO HAVE AIR IN IT AND PATIENT HAS BURPED BAG. PATIENTS SCHEDULED MEDICATION GIVEN PER ORDER. PATIENT DENIES ANY NEEDS. CALL LIGHT IN REACH.
--- NOTE | 2019-05-27 03:45 | NUR ---
PATIENT CALLED AND REQUESTED PAIN MEDICATION. PATIENT GIVEN PRN PAIN MEDICATION FOR 5/10 ABD PAIN. PATIENT DENIES ANY NAUSEA. NO FURTHER NEEDS NOTED. CALL LIGHT IN REACH.
--- NOTE | 2019-05-27 04:48 | NUR ---
PATIENT IS NPO AT THIS TIME. PATIENT IS ON 2L VIA NC AND THIS IS NOT CHRONIC FOR PATIENT. PATIENT HAS CPOX IN USE. PATIENT HAS KAMARA IN PLACE AND THIS IS NOT CHRONIC FOR PATIENT. PATIENT HAS NG IN PLACE IN LEFT NARE AND IS NO LWIS. PATIENTS NG IS PUTTING OUT LIGHT BROWN FLUID. PATIENT HAS AN OSTOMY PRESENT IN LLQ AND HAS HAD CHANGES IN AIR IN BAG. PATIENT HAS SCDS IN USE. PATIENT HAS NOT BEEN OUT OF BED THIS SHIFT. PATIENT HAS ICE PACKS PRN FOR ABD DISCONFORT. PATIENT HAS DRESSING ON RLQ THAT IS C/D/I AND NO DRAINGE NOTED. PATIENT RECEIVED PRN PAIN MEDICATION X2. PATIENT IS AAOX3 AND USES CALL LIGHT APPROPRIATELY.
--- NOTE | 2019-05-27 05:30 | NUR ---
VITALS/I&Os DONE, INC ASAD AND RAND VIVAR
--- NOTE | 2019-05-27 06:18 | NUR ---
PATIENTS VITALS TAKEN AND RECORDED. INTAKE AND OUPUT RECORDED. PATIENT IS RESTING IN BED. NG TO LWIS. KAMARA PRESENT. PATIENT DENIES ANY PAIN OR NAUSEA. INCREASED AIR PRESENT IN OSTOMY BAG. PATIENT DENIES ANY NEEDS. CALL LIGHT IN REACH.
--- NOTE | 2019-05-27 07:01 | OR ---
[facility] [address], [place] [address] Signed DATE OF OPERATION: 05/26/2019 SURGEON: Carlos Posada MD PREOPERATIVE DIAGNOSIS: Incarcerated left lower quadrant parastomal hernia. POSTOPERATIVE DIAGNOSIS: Incarcerated left lower quadrant parastomal hernia. PROCEDURE: Lateral primary suture repair, parastomal hernia. ESTIMATED BLOOD LOSS: None. INDICATIONS: Jenn is a 58-year-old female, who presented initially with a necrotic ruptured rectal cancer with a pelvic abscess. She had that drained and eventually underwent neoadjuvant chemo and radiation therapy. Dr. Ailyn Mcintyre at [facility] performed her abdominoperineal resection. Apparently, it was a 10-1/2 hour surgery according to the patient. It was quite involved obviously. She has really done very well since then. She has even had a couple of colonoscopies here locally with myself. She has had some polyps and diverticulosis but otherwise was doing fine. She ended up with a peristomal hernia and it has been increasing in size. When I 1st met Jenn, she was 137 pounds. She is now up to 200 pounds. Unfortunately, that has probably contributed to some degree. We had been watching that conservatively as it was not causing her any particular obstructive symptoms. She came to the hospital three days ago with increase in size of the peristomal hernia and abdominal distention and nausea and vomiting consistent with a bowel obstruction. Her white count was normal, but the CT scan did show three loops of small bowel in the hernia and of course, 2 of those loops were quite dilated and the proximal bowel is fluid-filled and dilated all the way back into the stomach. She also has an E coli urinary tract infection. Interestingly, she had no dysuria. Nevertheless, she was admitted and started on Rocephin and Flagyl. The E coli is sensitive to the Rocephin. We have also had our Medical Service following along. Jenn and I were never quite convinced that we could completely reduce the hernia. Certainly, I never felt a fascial edge. However with NG tube decompression, her abdominal distention did improve and the hernia was probably half the size it was before. I explained to Jenn and her brother that we need to repair that. Our goal on this occasion was not necessarily a definitive repair, but may be just this primary Electronically Signed By: CARLOS POSADA MD 05/27/19 0701 PATIENT NAME: JENN BYRNES OPERATIVE REPORT DATE OF : 56 REPORT #: [id number] PHYSICIAN: CARLOS POSADA MD PCP: FEDERICO LOPEZ DO REPORT IS CONFIDENTIAL AND NOT TO BE RELEASED WITHOUT AUTHORIZATION [facility] [address], [place] [address] Signed suture repair, which carries a high recurrence rate. However, with her urinary tract infection and her bowel obstruction, to do a more extensive definitive surgery would be quite a bit for Jenn on this occasion. The mesh will run a high risk of infection as well. We did not feel we wanted to move the colostomy at this time if we could avoid it, as it would require quite a bit of surgery as well. I reviewed all this with Jenn in detail. We did review there is risk to the surgery including, but not limited to bleeding, infection, scarring, change in contour of the skin, damage to bowel, infection of the mesh, and high recurrence rate from the peristomal hernia along with prolapse of the ostomy. She had expressed understanding and wished to proceed. DESCRIPTION OF PROCEDURE: I had met with Jenn and her brother and her [id number] before the surgery. After reviewing all this with them, we took Jenn into the operating room. She was placed in the supine position under general endotracheal tube anesthesia. A Agarwal catheter was inserted with return of clear yellow urine. She was already on preoperative antibiotics along with Lovenox. SCDs were also in place. She was then prepped and draped in usual sterile fashion. We placed our standard plastic occlusive dressing over the left lower quadrant ostomy. Even after pharmacologic paralysis of her muscles, we still could not definitively convince ourselves that it was completely reduced. We utilized her previous standard midline incision and carried that in the abdomen with the help of the cautery. We started slightly cephalad to the umbilicus and entered the abdomen above her adhesions. She had one loop of small bowel adherent over probably 5-8 cm in the midline. That took a few minutes to take down very carefully with the cautery. Fortunately, the rest of the adhesions were not particularly difficult. We worked our way over to the ostomy and we could see that she had a lateral defect every bit of 8-10 cm in length. I used an over-glove on three separate occasions and with copious lubrication, then I was able to insert my index finger through the colostomy and easily identified the colon itself. All the bowel had been reduced and the surrounding adhesions taken down. Interestingly, we did not see a tremendous amount of adhesions down deep in the pelvis, so that we did not travel all the way to the bottom. We decided to leave the hernia sac in place on this occasion due to her bowel obstruction. We wanted to close the fascial defect starting laterally and working our way medial toward the colon itself. We used #1 [id number] interrupted Prolene sutures. Again, no undue tension of the muscle around the colostomy itself. After this, the omentum was brought back down over the bowel and we closed the midline fascia with interrupted #1 [id number] Prolene sutures. The wound was irrigated and suctioned out until clear. We injected local anesthetic into the abdominal wall. The dermis was reapproximated with interrupted 3-0 subcuticular Monocryl sutures. The skin edges were reapproximated with myrna. After this, Jenn was awakened from anesthesia, extubated in the OR, and taken to recovery room in stable condition. Electronically Signed By: CARLOS POSADA MD 05/27/19 0701 PATIENT NAME: JENN BYRNES OPERATIVE REPORT DATE OF : 56 REPORT #: [id number] PHYSICIAN: CARLOS POSADA MD PCP: FEDERICO LOPEZ DO REPORT IS CONFIDENTIAL AND NOT TO BE RELEASED WITHOUT AUTHORIZATION [address] [address] Signed Carlos Posada MD ALB/MODL /[id number] cc: MD Carlos Davis MD Robert C Quackenbush, MD Arian Kargar, DO Aimee Rogers, MD Copies: AILYN MCINTYRE MD, ANDREW L MD QUACKENBUSH, ROBERT C MD KARGAR,TERE GUERRA MD ~ Electronically Signed By: CARLOS POSADA MD 05/27/19 0701 PATIENT NAME: JENN BYRNES ALTAF OPERATIVE REPORT DATE OF : 56 REPORT #: [id number] PHYSICIAN: CARLOS POSADA MD PCP: FEDERICO LOPEZ DO REPORT IS CONFIDENTIAL AND NOT TO BE RELEASED WITHOUT AUTHORIZATION
--- NOTE | 2019-05-27 07:41 | NUR ---
PT SITTING UP IN BED, A&OX4. PT ON 2L OXYGEN PER NC, SAT LEVEL OF 94%. CPOX INTACT. NG LIS. ABDOMINAL INCISION IS COVERED; CDI. COLOSTOMY TO LLE; STOMA BEEFY RED, APPLIANCE IS INTACT WITH NOTABLE GREEN/BROWN OUTPUT. PT HAS NO NEEDS AT THIS TIME. CALL LIGHT WITHIN REACH.
--- NOTE | 2019-05-27 08:32 | NUR ---
NG PLACED TO GRAVITY BAG. KAMARA CATHETER REMOVED, CATH TIP INTACT. PT TOLERATED WELL. CALL LIGHT WITHIN REACH.
--- NOTE | 2019-05-27 10:47 | NUR ---
PATIENT IN BED RESTING. SHE IS WATCHING TV. VISITER IN ROOM. CALL LIGHT IN REACH. NO FUTHER NEEDS AT THIS TIME.
--- NOTE | 2019-05-27 11:30 | NUR ---
ADMIN TORADOL 30MG IVP FOR REPORTS OF 5/10 ABD/HEAD PAIN.
--- NOTE | 2019-05-27 13:00 | NUR ---
PT AMBULATED HALLWAY 1PA WITH WALKER. PT TOLERTED WELL.
--- NOTE | 2019-05-27 13:12 | NUR ---
PT REQUESTING TO TAKE A NAP AT THIS TIME. PT IS ON RA, RESP EVEN AND NON LABORED, SAT LEVEL OF 93%. NG TO GRAVITY. PT REPORTS PAIN IS TOLERABLE TO ABD. CALL LIGHT WITHIN REACH.
--- NOTE | 2019-05-27 16:03 | NUR ---
GAVE PT DILAUDID FOR BREAKTHROUGH PAIN. THEN BECAME NAUSEOUS, GIVEN ZOFRAN.
--- NOTE | 2019-05-27 18:18 | NUR ---
YAMIL FROM DR. POSADA TO REMOVE NG NOW AND START PT ON HER WELLBUTRIN 300MG XL PO DAILY AND LAMICTAL 50MG PO DAILY THIS EVENING. PT REPORTED TO THIS RN THAT SHE IS IN NEED OF HER ANTIDEPRESSANTS. NG REMOVED; PT TOLERATED WELL. CATHETER TIP INTACT.
--- NOTE | 2019-05-27 19:30 | NUR ---
REPORT RECEIVED FROM DAY SHIFT RN. PT SITTING UP IN BED, ALERT AND ORIENTED. VISITOR IN ROOM. FRESH ICE CHIPS GIVEN. NO OTHER REQUESTS AT THIS TIME. CALL LIGHT IN REACH.
--- NOTE | 2019-05-27 20:02 | NUR ---
ROUNDED CHARGE. PATIENT IS RESTING IN BED. CRISTAL HOOK IS PERESENT IN THE ROOM. PATIENT DENIES ANY NEEDS. CALL LIGHT IN REACH.
--- NOTE | 2019-05-27 21:00 | NUR ---
ASSESSMENT COMPLETE. BOWEL TONES ACTIVE. NO STOOL IN COLOSTOMY. RIGHT ABD INCISION COVERED WITH ABD PAD, CDI. NO C/O NAUSEA OR BLOATING. CPOX IN PLACE, 92% ON RA. SCD'S IN PLACE. PT C/O PAIN IN RIGHT HAND IV. IV DC'D, TIP IN TACT. NEW IV STARTED ON RIGHT FOREARM, PT MAGDALENA WELL. IV ABX INFUSING. LEFT FOREARM IV DC'D DUE TO LEAKING, TIP IN TACT. IV ABX STARTED.
--- NOTE | 2019-05-27 21:20 | NUR ---
PT UP TO BR WITH FWW AND SBA TO VOID 100 ML YELLOW URINE, NEW INCONTINENCE PAD GIVEN. BACK TO BED, MAGDALENA WELL. PRN PAIN MED GIVEN FOR 4/10 ABD PAIN. HOME C-PAP CENTRAL OFFICE MAINTAINER BY RT. NO OTHER REQUESTS AT THIS TIME. CALL LIGHT IN REACH.
--- NOTE | 2019-05-27 21:30 | NUR ---
MD CALLED DUE TO CONCERSS REGARDING PAIN MANAGEMENT OVER NIGHT PT STATES IV DILAUDID MAKES HER NAUSEOUS. NEW ORDERS FOR IV TYLENOL RECEIVED.
--- NOTE | 2019-05-27 22:58 | NUR ---
RT IN TO ASSESS PT, CPOX READS 85-87% ON PT'S HOME C-PAP. TO MAINTAIN PARAMETERS RT BLED 2L OXYGEN INTO C-PAP. CPOX NOW READS 92%, RR EVEN AND UNLABORED. CALL LIGHT IN REACH.
--- NOTE | 2019-05-28 01:54 | NUR ---
PT RESTING IN BED WITH EYES CLOSED. CPOX AND O2 IN PLACE, SATS 92%. RR EVEN AND UNLABORED. IVF INFUSING WITHOUT ISSUE. CALL LIGHT IN REACH.
--- NOTE | 2019-05-28 04:44 | NUR ---
PT CONTINUES TO REST IN BED WITH EYES CLOSED, NAD. CPOX 94% WITH CPAP AND 2L O2. IVF INFUSING. CALL LIGHT IN REACH.
--- NOTE | 2019-05-28 05:00 | NUR ---
PT NPO EXCEPT ICE, HARD CANDY, AND GUM. BT ACTIVE. NO STOOL IN LLQ OSTOMY BAG YET. IVF. CPOX. HOME CPAP WITH O2, SATS 92-94%. LUNGS CLEAR. PT UP TO BR WITH FWW AND ONE PERSON SBA. RLQ INCISION COVERED WITH DRESSING, CDI. PAIN CONTROLLED WITH PRN TORADOL. NO C/O NAUSEA OR BLOATING. SCD'S IN PLACE.
--- NOTE | 2019-05-28 05:45 | NUR ---
PT UP TO BR WITH FWW AND SBA, MAGDALENA WELL. BACK TO BED. SCD'S IN PLACE. CPOX ON. PT EMPTIED AIR OUT OF OWN COLOSTOMY. MEDICATED WITH PRN FOR 4/10 ABD PAIN. CALL LIGHT IN REACH.
--- NOTE | 2019-05-28 07:12 | NUR ---
RECEIVED REPORT FROM MILADYS BEE. pt RESTING IN BED. REPORTED SOME NAUSEA, TOLERABLE. NO REQUESTS AT THIS TIME. WHITEBOARD UPDATED. CALL LIGHT WITHIN REACH.
--- NOTE | 2019-05-28 07:30 | NUR ---
PATIENT UP TO BATHROOM FOR ORAL CARE AND SPONG BATH. LINENS CHANGED. FRESH ICE WATER GIVEN. PATIENT BACK TO BED. CALL BUTTON IN REACH. NO OTHER NEEDS AT THIS TIME.
--- NOTE | 2019-05-28 09:15 | NUR ---
pt RESTING IN BED. DENIED NAUSEA AT THIS TIME. GAVE BROTH, EXPLAINED FLUID RESTRICTION AND PLAN FOR THE DAY. ASSESSMENT DONE. MEDICATIONS GIVEN (SEE MAR). pt REPORTED GAS AFTER A FEW SIPS. STOOD TO RELIEVE PRESSURE, DENIED NAUSEA. VOIDED. AMBULATED TO CHAIR SBA FWW. SITTING IN CHAIR POSSESSIONS AND CALL LIGHT WITHIN REACH. NO FURTHER REQUESTS AT THIS TIME.
--- NOTE | 2019-05-28 09:41 | NUR ---
PATIENT SITTING UP IN CHAIR WATCHING TV. CALL BUTTON IN REACH. NO OTHER NEEDS AT THIS TIME.
--- NOTE | 2019-05-28 10:27 | NUR ---
LAB ASSISTANT INFORMED THIS RN OF pt's COMPLAINT OF PAIN. PRN MED GIVEN (SEE MAR) FOR PAIN 11/01, pt REPORTED IT WAS LOCALIZED TO ABD NEAR INCISION. NEW IVF BAG HUNG. pt WILL CALL WHEN READY TO WALK. NO FURTHER REQUESTS AT THIS TIME. CALL LIGHT WITHIN REACH.
--- NOTE | 2019-05-28 10:40 | NUR ---
pt AMBULATED TO NURSES STATION AND BACK TO BED. CALL LIGHT WITHIN REACH. REPORTED THAT PAIN IS EASING.
--- NOTE | 2019-05-28 11:48 | NUR ---
ROUNDED ON pt. REPORTED PAIN 08/03. CALL LIGHT WITHIN REACH.
--- NOTE | 2019-05-28 12:40 | NUR ---
ROUNDED ON pt. PROVIDED BROTH, JELLO, AND WATER PER REQUESTED. EDUCATED ON FLUID RESTRICTION AND PREVENTING NAUSEA. pt VERBLIZED UNDERSTANDING. NO FURTHER REQUESTS AT THIS TIME. CALL LIGHT WITHIN REACH.
--- NOTE | 2019-05-28 14:50 | NUR ---
ROUNDED ON pt. REQUESTED PRN PAIN MEDS, GIVEN (SEE MAR). ASSESSMENT DONE. pt UP TO VOID AND BACK TO BED WILL CALL WHEN READY TO AMBULATE IN AMES. CALL LIGHT WITHIN REACH.
--- NOTE | 2019-05-28 16:50 | NUR ---
ROUNDED ON pt. VISITING. CALL LIGHT WITHIN REACH.
--- NOTE | 2019-05-28 17:02 | NUR ---
Spoke with Jenn, she is sitting up in bed, denies c/o. Friends at bedside and she is laughing.
--- NOTE | 2019-05-28 17:54 | NUR ---
pt REPORTED A FEW PERIODS OF BRIEF NAUSEA, DID NOT TAKE MEDICATION FOR NAUSEA. PRN PAIN MEDS X2. AMBULATED IN AMES. 1PA FWW. PASSED GAS. IVF INFUSING. SCDS. MIDLINE INCISION OPEN TO AIR, KRISTEN. EDGES WELL APPROXIMATED. TOLERATED CLEAR LIQUID DIET. USES CALL LIGHT APPROPRIATELY.
--- NOTE | 2019-05-28 18:15 | NUR ---
PATIENT UP AMBULATING HALLWAY TO NURSES STAITION AND BACK WITH FWW AND STAND BY ASSIST.
--- NOTE | 2019-05-28 18:31 | NUR ---
ROUNDED ON pt. CLEARED PUMP. PROVIDED BROTH FOR DINNER. NO FURTHER REQUESTS AT THIS TIME. CALL LIGHT WITHIN REACH.
--- NOTE | 2019-05-28 19:34 | NUR ---
REPORT RECEIVED FROM DAY SHIFT RN. PT LYING IN BED, ALERT AND ORIENTED. DENIES NEEDS AT THIS TIME. CALL LIGHT IN REACH.
--- NOTE | 2019-05-28 20:30 | NUR ---
PATIENTS VITALS TAKEN AND RECORDED. PATIENTS INTAKE AND OUTPUT RECORDED. PATIENT HAS CONCERNS OF PAIN. CRISTAL JOHNSON RN IN ROOM TO ADMINISTER PRN PAIN MEDICATION.
--- NOTE | 2019-05-28 20:33 | NUR ---
CALL LIGHT ANSWERED. PT REQUESTING PRN PAIN MED FOR 8/10 ABD PAIN. MED GIVEN PER ORDER. ASSESSMENT COMPLETE. BOWEL TONES ACTIVE. PT STATES AIR IN COLOSTOMY BAG, BURPED IT HERSELF. SCD'S IN PLACE. CPOX 92% ON RA, LUNGS CLEAR. NO OTHER REQUESTS AT THIS TIME. CALL LIGHT IN REACH.
--- NOTE | 2019-05-29 00:44 | NUR ---
PT RESTING IN BED WITH EYES CLOSED. CPAP AND O2 1L IN PLACE, CPOX READS 90%. RR EVEN AND UNLABORED. CALL LIGHT IN REACH.
--- NOTE | 2019-05-29 03:21 | NUR ---
CALL LIGHT ANSWERED. PT UP TO BR WITH SBA AND FWW TO VOID 600 ML CL YELLOW URINE. BACK TO BED, MAGDALENA WELL. NO C/O PAIN OR NAUSEA. COLOSTOMY BAG FULL OF AIR, PT BURPED OWN BAG. SCD'S IN PLACE. CPAP WITH 1L O2 ON, CPOX READS 91%. CALL LIGHT IN REACH.
--- NOTE | 2019-05-29 05:32 | NUR ---
PT UP TO BR WITH SBA. BACK TO BED, MAGDALENA WELL. C/O PAIN AND NAUSEA THAT "COMES AND GOES". MEDICATED WITH PRN PER MD ORDER. BOWEL TONES ACTIVE, PASSING GAS. NO OTHER NEEDS AT THIS TIME. CALL LIGHT IN REACH.
--- NOTE | 2019-05-29 06:08 | NUR ---
PT ALERT AND ORIENTED, USES CALL LIGHT APPROPRIATELY. SBA WITH FWW. MIDLINE INCISION WELL APPROXIMATED. KRISTEN INTACT, NO DRAINAGE, OPEN TO AIR. COLOSTOMY ON LEFT SIDE, PT IS PASSING GAS, NO STOOL. BOWEL TONES ACTIVE. MEDICATED 2X FOR PAIN, ONCE FOR NAUSEA. CPOX. CPAP AND 1L AT NOC. SCD'S.
--- NOTE | 2019-05-29 07:15 | NUR ---
REPORT RECEICVED FROM MILADYS BEE. PT SITTING UP IN BED AFTER GOING TO RESTROOM. STATES SHE IS DOING WELL AND HAS BEEN ADVANCED ON HER DIET. + FOR FLATUS IN OSTOMY, NO STOOL YET.
--- NOTE | 2019-05-29 08:09 | NUR ---
ORDERED YOGURT FOR BREAKFAST AND THEN PT WOULD LIKE TO GO FOR WALK. MOTIVATED TO GO HOME.
--- NOTE | 2019-05-29 09:15 | NUR ---
AMBULATED PT IN AMES. WENT PAST RN STATION THIS TIME. TOLERATED WELL. DENIES PAIN MEDICATION ATT.
--- NOTE | 2019-05-29 11:14 | NUR ---
Spoke with Jenn. She is sitting up in chair, ate yogurt for breakfast. Discussed needs for when she can go home. She has all equipment needed. Feels when able she can dc home safely as she will have assist from her daughter.
--- NOTE | 2019-05-29 13:22 | NUR ---
PT EATING CREAM OF CHICK SOUP. TOLERATING WELL. ADMINISTERED TYLENOL. 3\10 PAIN.
--- NOTE | 2019-05-29 15:35 | NUR ---
PT SITTING UP IN CHAIR. STATES HER PAIN IS BETTER THERE AND THE TYLENOL HELPED. GIVEN SPRITE AND PUDDING. DENIES CONCERNS.
--- NOTE | 2019-05-29 18:11 | NUR ---
PT WALKED IN AMES AGAIN. TOLERATED WELL. BACK TO CHAIR WITH SMALL BM OUT OF OSTOM;Y.
--- NOTE | 2019-05-29 19:43 | NUR ---
REPORT RECEIVED FROM DAY SHIFT RN. PT SITTING IN RECLINER, ALERT AND ORIENTD. REQUESTING JELLO AND PUDDING. DENIES PAIN OR NAUSEA AT THIS TIME. NO OTHER REQUESTS AT THIS TIME. CALL LIGHT IN REACH.
--- NOTE | 2019-05-29 21:00 | NUR ---
ASSESSMENT COMPLETE. ABOUT 100 ML OF STOOL IN COLOSTOMY BAG. ABD INCISION WELL APPROXIMATED, NO DRAINAGE OR REDNESS NOTED. OPEN TO AIR. PT DENIES NAUSEA OR PAIN AT THIS TIME. MAGDALENA FULL LIQUID SNACK. NO OTHER NEEDS AT THIS TIME. CALL LIGHT IN REACH.
--- NOTE | 2019-05-30 | NUR ---
PT IN BED WITH CPAP ON, CPOX READING 84%. 1L O2 BLED INTO CPAP LINE. CPOX NOW READING 93%.
--- NOTE | 2019-05-30 00:47 | NUR ---
PATIENT CALLED AND ASKED IF THE POWER SURGED BECUASE HER CPAP HAD SHUT OFF. PATIENTS CPAP. PLUGGED INTO RED OUTLET. PATIENT DENIES ANY PAIN. NO NEEDS NOTED. CALL LIGHT IN REACH.
--- NOTE | 2019-05-30 03:20 | NUR ---
PT RESTING IN BED WITH EYES CLOSED, NAD.
--- NOTE | 2019-05-30 05:15 | NUR ---
PATIENTS VITALS TAKEN AND RECORDED. INTAKE AND OUPUT RECORDED. PATIENT IS RESTING IN BED WEARING HOME CPAP. PATIENT DENIES ANY NEEDS. CALL LIGHT IN REACH.
--- NOTE | 2019-05-30 05:32 | NUR ---
PT UP TO BR WITH FWW AND SBA TO VOID AND EMPTY 100 ML OUT OF COLOSTOMY. BACK TO BED, MAGDALENA WELL. PT DENIES PAIN OR NAUSEA. SCD'S ON. CPOX AND CPAP IN PLACE. DENIES OTHER NEEDS. CALL LIGHT IN REACH.
--- NOTE | 2019-05-30 05:40 | NUR ---
PT SLEPT WELL. NO C/O PAIN OR NAUSEA. STOOL BEING PASSED IN COLOSTOMY BAG. ABD INCISION WELL APPROXIMATED, NO DRAINAGE OR REDNESS. OPEN TO AIR. SCD'S. IVF. SBA WITH FWW. CPAP AND 1L O2 AT NOC. CPOX. MAGDALENA FULL LIQUID DIET. ALERT AND ORIENTED, USES CALL LIGHT APPROPRIATELY.
--- NOTE | 2019-05-30 06:53 | NUR ---
IV SALINE LOCKED, CPOX DC'D, ADVANCED TO REGULAR DIET PER DR. POSADA. PT UP TO BR TO VOID WITH SBA AND FWW. TO RECLINER. CALL LIGHT IN REACH.
--- NOTE | 2019-05-30 07:20 | NUR ---
PATIENT SITTING UP IN CHAIR. HANDS AND FACE CLEANED. LINENS CHANGED.PATIENT REFUSED TO TAKE A SHOWER TODAY BECAUSE SHE TOOK A SHOWER YESTERDAY. CALL LIGHT WITHIN REACH. NO OTHER NEEDS AT THIS TIME
--- NOTE | 2019-05-30 08:12 | NUR ---
PT SITTING UP IN CHAIR ALERT AND ORIENTED. PT SATTING 92% ON 3LPC. AM MEDS ADMINISTERED. BREAKFAST TRAY ARRIVED AND PT SET UP FOR BREAKFAST. COFFEE PROVIDED PER PT REQUEST, PART OF 300ML BREAKFAST FLUID INTAKE. PT ASSESSMENT COMPLETED. CALL LIGHT AND H2O IN REACH. PT DENIES FURTHER NEEDS OR CONCERNS.
--- NOTE | 2019-05-30 10:00 | NUR ---
AMBULATED LENGTH OF HALLWAY USING FWW AND SBA. TOLERATED WELL.
--- NOTE | 2019-05-30 10:28 | NUR ---
PATIENT SITTING UP IN CHAIR. VITAL SIGNS AND I&O DONE BY STUDENT RN AND RECORDED BY THIS BLEACHER LARD.
--- NOTE | 2019-05-30 10:45 | NUR ---
Notified by Pat Radford RN, pt has concerns about going home and not feeling steady. Called Dr. Thacker and requested orders for PT/OT eval and orders received. Verbal order placed in EMR. In and spoke with pt. She states last surgery felt steady on dc, but she spent 4 weeks in the hospital. Updated we will have PT and OT work with her to evaluate strenth. Goal is safe dc to home.
--- NOTE | 2019-05-30 10:59 | NUR ---
UP TO BR, VOIDED AND DID OWN STOMA SELF CARE, TOLERATED WELL, 1PA W WALKER, TOLERATED WELL. NO C/O PAIN
--- NOTE | 2019-05-30 13:09 | NUR ---
PATIENT USING BATHROOM. PATIENT BACKS TO CHAIR. PATIENT USES WALKER. ONE PERSON ASSISTING. VITAL SIGNS AND I&O DONE. ICE WATER GIVEN. CALL LIGHT WITHIN REACH. NO OTHER NEEDS AT THIS TIME
--- NOTE | 2019-05-30 14:48 | NUR ---
PT/OT EVALS HAVE BEEN ORDERED. PT DOES LIVE ALONE AND WOULD BENEFITS WITH FURTHER STRECGTHENING. PT IS MOTIVATED. DENIES ANY NEEDS AT THIS TIME.
--- NOTE | 2019-05-30 17:08 | NUR ---
PT HAS HAD A GOOD DAY, AMBULATED SEVERAL TIMES IN HALLWAY WITH SBA USING FWW, PT/OT ORDERED TO HELP WITH STRENGTHENING, PT IS MOTIVATED AND WANTS TO GO HOME. DOING WELL WITH MIN ASSIST TO MANAGE COLOSTOMY, VOIDING WELL. GOOD PAIN CONTROL WITH TYLENOL. USING CALL LIGHT APPROP.
--- NOTE | 2019-05-30 17:38 | NUR ---
PATIENT SITTING UP IN CHAIR. VITAL SIGNS AND I&O DONE. ICE WATER GIVEN. CALL LIGHT WITHIN REACH. NO OTHER NEEDS AT THIS TIME
--- NOTE | 2019-05-30 20:00 | NUR ---
RECEIVED REPORT FROM DAY SHIFT RN. PATIENT IS RESTING IN RECLINER. NO NEEDS NOTED. CALL LIGHT IN REACH.
--- NOTE | 2019-05-30 21:36 | NUR ---
PATIENT IS UP IN [facility]. PATIENT RATES PAIN AT A 2/10 IN HER LOWER ABD. PATIENT GIVEN PRN TYLENOL PER ORDER. PATIENT DENIES ANY NAUSEA. PATIENT ASSESMENT COMPLETED. PATIENTS ICE WATER REFRESHED. PATIENTS VITALS TAKEN AND RECORDED. INTAKE AND OUPUT RECORDED. PATIENT DENIES ANY FURTHER NEEDS CALL LIGHT IN REACH.
--- NOTE | 2019-05-30 23:19 | NUR ---
PATIENT ASSISTED TO BED BY TUTOR COORDINATOR AND PLACED ON HOME CPAP NO OXYGEN BELED IN. CALL LIGHT IN REACH.
--- NOTE | 2019-05-31 01:01 | NUR ---
PATIENT IS RESTING IN BED WITH EYE MASK IN PLACE. PATIENT IS WEARING HOME CPAP WITH NO OXYGEN BLED IN. PATIENT SPOTTED CHECKED AND OXYGEN SATURATION IS AT 89%. NO INTERVENTION NEEDED. RR 18. CALL LIGHT IN REACH.
--- NOTE | 2019-05-31 02:59 | NUR ---
PATIENT IS RESTING IN BED WITH EYES CLOSED, RR 16. HOME CPAP IN USE. CALL LIGHT IN REACH.
--- NOTE | 2019-05-31 04:37 | NUR ---
PATIENT IS RESTED WELL THROUGHOUT THE SHIFT. PATIENT IS ON A REGULAR DIET, TOLERATING IT WELL AND NO NAUSEA NOTED. PATIENT RECEIVED PRN TYLENOL X1 FOR ABD PAIN. PATIENT WORE HOME CPAP WHILE ASLEEP. PATIENT HAS SCDS IN USE WHEN IN BED. PATIENT IS A SBA. PATIENT HAS OSTOMY THAT IS PRODUCING STOOL. PATIENT HAS MID ABD INSCIONS, KRISTEN PRESENT, C/D/I, AND WELL APPROXIMATED. PATIENT IS AAOX3 AND USES CALL LIGHT APPROPRIATELY.
--- NOTE | 2019-05-31 05:57 | NUR ---
PATIENT ASSISTED TO THE RESTROOM BY GENNA OCTOBER. PATIENT WAS ABLE TO VOID. PATIENT WAS ABLE TO STAND ON OWN OVER TOILET WITH NO ASSISTANCE. PATIENT DENIED ANY WEAKNESS WITH ACTIVITY. PATIENT IS NOW BACK IN BED RESTING. PATIENT RATES PAIN AT A 1/10. PATIENT DENIES THE NEED FOR PAIN MEDICATION AT HIS TIME. CALL LIGHT IN REACH.
--- NOTE | 2019-05-31 07:15 | NUR ---
PATIENT SITTING UP IN BED WATCHING TV, ALERT AND ORIENTED. REPORT RECEIVED, ORDERS ACKNOWLEDGED. PATIENT AMBULATED TO TOILET WITH 1PA, STEADY GAIT. VOIDING QS. PATIENT AMBULATED TO CHAIR WITH 1PA. NO FURTHER NEEDS AT THIS TIME, CALL LIGHT WITHIN REACH.
--- NOTE | 2019-05-31 08:19 | NUR ---
PATIENT SITTING UP IN CHAIR WATCHING TV AND EATING BREAKFAST. AM MEDICATIONS GIVEN, ASSESSMENT COMPLETE. MIDLINE INCISION IS WELL-APPROXIMATED WITH NO DRAINAGE. ACTIVE BOWEL TONES, COLOSTOMY BAG DRAINING. DENIES FURTHER NEEDS AT THIS TIME, CALL LIGHT WITHIN REACH.
--- NOTE | 2019-05-31 09:50 | NUR ---
PATIENT WORKING WITH PT, AMBULATING HALL
--- NOTE | 2019-05-31 10:18 | NUR ---
PATIENT REPORTS HEADACHE OF 5/10, PRN ACETAMINOPHEN GIVEN. ICE PACK PROVIDED FOR ABDOMEN. PATIENT SITTING IN CHAIR WATCHING TV, DENIES FURTHER NEEDS AT THIS TIME. CALL LIGHT WITHIN REACH.
--- NOTE | 2019-05-31 11:01 | NUR ---
Spoke with Jenn. She was not able to meet her therapy goals. Call into Dr. Thacker to see if he will order TC for this patient. He is in surgery. Message left.
--- NOTE | 2019-05-31 13:35 | NUR ---
PT SITTING IN CHAIR, WATCHING TV AND KNITTING FOR HER G.CHILD. PT IS ALERT, ORIENTED AND HER SON JUST LEFT. [facility] SHE ALSO DID REQUEST PRAYER. WILL CONTINUE TO FOLLOW NEEDED
--- NOTE | 2019-05-31 15:15 | NUR ---
PATIENT SITTING IN CHAIR WATCHING TV. PATIENT REQUESTS WARM PRUNE JUICE WHICH IS PROVIDED. NO FURTHER NEEDS AT THIS TIME, CALL LIGHT WITHIN REACH.
--- NOTE | 2019-05-31 15:45 | NUR ---
I ASKED PATIENT THIS MORNING IF SHE WOULD LIKE TO TAKE A SHOWER AND SHE SAID NO. ALSO PATIENT HAS BEEN SITTING UP IN HER CHAIR MOST OF THE DAY. GOT HER A ICE PACK AND FILLED HER GLASS UP WITH ICE WATER SEVERAL TIMES TODAY.
--- NOTE | 2019-05-31 17:45 | NUR ---
PATIENT AMBULATED HALLWAYS WITH FWW AND 1PA. AMBULATED BACK TO CHAIR WITH FWW AND 1PA. DINNER DELIVERED, PATIENT DENIES ANY NEEDS AT THIS TIME. CALL LIGHT WITHIN REACH.
--- NOTE | 2019-05-31 18:16 | NUR ---
PATIENT AMBULATED WITH PT, PRN PAIN MEDICATION GIVEN AFTER WORKING WITH PT. 1PA WITH FWW. SALINE LOCKED. REGULAR DIET. MIDLINE INCISION IS WELL-APPROXIMATED WITH KRISTEN. ACTIVE BOWEL TONES PRESENT, NO TENDERNESS ON PALPATION. LOW OUTPUT FROM COLOSTOMY, [address] POSADA NOTIFIED, WILL CONTINUE TO MONITOR OUTPUT.
--- NOTE | 2019-05-31 20:00 | NUR ---
FRESH ICE WATER AND PILLOW GIVEN PER PT REQUEST.
--- NOTE | 2019-05-31 20:06 | NUR ---
Up in chair,on room air, no c/o pain, knitting, fluids and call light on table.
--- NOTE | 2019-05-31 21:50 | NUR ---
Up to br with 1PA/FWW, no c/o pain, Back to chair
--- NOTE | 2019-05-31 23:16 | NUR ---
Pt up to br, voided and did own stoma care, uses fww, back to bed. Coop with assessment, on room air when awake, home CPAP on at this time. Midline incision with myrna, pink colored around lower incision area, stoma patent, draining soft gree-brown bm. Tolerating fluids and diet well, no n/v. Call light at bedside
--- NOTE | 2019-06-01 01:23 | NUR ---
EYES CLOSED, CPAP IN PLACE, NO C/O PAIN, CALL LIGHT AT BEDSIDE.
--- NOTE | 2019-06-01 03:00 | NUR ---
PT RESTING, HAS SLEPT MOST OF THIS SHIFT, NO DISTRESS NOTED. CALL LIGHT AT BEDSIDE
--- NOTE | 2019-06-01 05:05 | NUR ---
PT HAS SLEPT MOST OF THIS SHIFT. GETS UP WITH 1PA/FWW AND IS INDEPENDENT AT TIMES. DOES OWN STOMA CARE, WAS MEDICATED WITH TYLENOL X1 PER ABD PAIN, EFFECTIVE, MIDLINE ABD INCISION WITH KRISTEN, PINKISH COLORED SKIN AT LOW ABD. STOMA PATENT, VOIDING QS. TOLERATING DIET AND FLUIDS WELL. CALL LIGHT AT BEDSIDE
--- NOTE | 2019-06-01 06:00 | NUR ---
HELPED PT BACK FROM THE BATHROOM TO HER BED. I&OS DONE AND CHARTED. FRESH ICE WATER GIVEN. GARBAGES EMPTIED. BEDSIDE TABLE AND CALL LIGHT IN REACH.
--- NOTE | 2019-06-01 08:10 | DS ---
[facility] [address], [place] [address] Signed ADMISSION DATE: 05/24/2019 DISCHARGE DATE: 06/01/2019 FINAL DIAGNOSIS: Incarcerated parastomal hernia. PROCEDURE: Primary repair of parastomal hernia. HISTORY OF PRESENT ILLNESS: Jenn is a 58-year-old female who presented previously with a necrotic ruptured rectal cancer with abscess that had to be drained. She had chemo and radiation therapy. Later, she underwent an abdominoperineal resection. She has come through that very nicely. However, she developed parastomal hernia. We were watching that conservatively. However, she came to the emergency room on the night of admission with a double in size of the hernia, increased abdominal distension as well as urinary tract infection. The CT scan confirmed three loops of small bowel with small bowel obstruction from the parastomal hernia. HOSPITAL COURSE: Jenn was admitted as above and started on Rocephin and Flagyl with an NG tube. She made improvements and her urine grew out E coli. It was sensitive to Rocephin. We took Jenn to surgery on 05/26/2019 and did a primary suture repair of that parastomal hernia on the lateral side. All the bowel was viable. She has done well both intraop and postop. However, she has been a bit weak and we had to have Physical Therapy help her and she is still unsteady on her feet. Consequently, there are arrangements being made for her to go to our swing bed for a short time. We now have her on a regular diet. She is eating well. She is having nice semi-solid brown stool out the colostomy. However, she has developed some erythema on the lower portion of the incision this morning. Consequently, we are going to add clindamycin 300 mg p.o. q.i.d. to her regimen. Otherwise, she can follow a regular diet along with her chronic medications. Her abdominal exam is otherwise benign and the colostomy is pink, moist, and functioning with lots of brown stool. DISCHARGE PLANS AND MEDICATIONS: Jenn will be discharged to our swing bed with her chronic medications. She will use the clindamycin 300 mg p.o. q.i.d. for 7 days. We removed half the myrna. We will remove the other half in a few days. She can continue her usual chronic medications. She can shower and bathe as usual. She can perform her activities of daily living including walking up and downstairs and participating with our physical therapist. She can also continue to use her CPAP. I have reviewed this with Jenn. She has expressed her Electronically Signed By: CARLOS POSADA MD 06/01/19 0810 PATIENT NAME: JENN BYRNES DISCHARGE SUMMARY DATE OF : 56 REPORT #: [id number] PHYSICIAN: CARLOS POSADA MD PCP: FEDERICO LOPEZ DO REPORT IS CONFIDENTIAL AND NOT TO BE RELEASED WITHOUT AUTHORIZATION [address] [address] Signed understanding and agrees with the above plan. I will see Jenn back in my office in the next 5 days or so. Carlos Posada MD ALB/MODL /[id number] cc: DO Sirena Justin, MD Carlos Posada, MD Ailyn Mcintyre, MD Nayana Knowles, MD Tere Landeros MD Copies: FEDERICO LOPEZ,SIRENA POSADA,CARLOS MCINTYRE,AILYN KNOWLES,NAYANA LANDEROS,TERE ALICIA ~ Electronically Signed By: CARLOS POSADA MD 06/01/19 0810 PATIENT NAME: JENN BYRNES DISCHARGE SUMMARY DATE OF : 56 REPORT #: [id number] PHYSICIAN: CARLOS POSADA MD PCP: FEDERICO LOPEZ DO REPORT IS CONFIDENTIAL AND NOT TO BE RELEASED WITHOUT AUTHORIZATION
== END 2019-06-01 08:59 | disposition swing bed (61) | DRG 354 ==
LOC: ED 14:38 → MS 17:47
PROVIDERS: ADMIT Colon & Rectal Surgery
PROC: 0WQF0ZZ Repair Abdominal Wall, Open Approach (ICD-10-PCS; principal; 2019-05-26 09:00)
DX: K43.3 Parastomal hernia with obstruction, without gangrene (principal); N39.0 Urinary tract infection, site not specified; F33.0 Major depressive disorder, recurrent, mild; B96.20 Unspecified Escherichia coli [E. coli] as the cause of diseases classified elsewhere; N32.81 Overactive bladder; I10 Essential (primary) hypertension; E78.5 Hyperlipidemia, unspecified; I73.9 Peripheral vascular disease, unspecified; N28.1 Cyst of kidney, acquired; Z93.3 Colostomy status; Z87.891 Personal history of nicotine dependence; Z85.048 Personal history of other malignant neoplasm of rectum, rectosigmoid junction, and anus; Z88.5 Allergy status to narcotic agent; Z88.8 Allergy status to other drugs, medicaments and biological substances; Z79.899 Other long term (current) drug therapy
CPT/HCPCS: 00830; 36415; 71045; 74177; 80048; 80053; 81001; 83690; 83735; 84100; 85025; 87077; 87088; 87186; 90688; 93005; 93010; 94760; 94762; 96361; 97110; 97116; 97162; 97165; 99285-25; C9113; J0131; J0696; J1100; J1170; J1650; J1885; J2405; J2550; J2704; J3010; J3480; J7030; J7121; Q9967

== ENCOUNTER 2019-06-01 09:00 | Inpatient (IN) | payer MEDICARE, MEDICAID ==
[~2019-06-01] VITALS: Ht 160 cm; Wt 88.3 kg
--- OUTSIDE RECORDS SUMMARY | ~2019-06-01 | XMS | Encounter Summary ---
Demographics + + + | Address | [address] | | | [place] [address] | + + + | Home Phone | | + + + | Preferred Language | Unknown | + + + | Marital Status | Single | + + + | Mandaeism Affiliation | NON | + + + | Race | White | + + + | Ethnic Group | Not or | + + + Author + + + | Author | [facility] | + + + | Organization | [facility] | + + + | Address | Unknown | + + + | Phone | Unavailable | + + + Support + + +---------+ + | Name | Relationship | Address | Phone | + + +---------+ + | Darrius Quintana | ECON | Unknown | | + + +---------+ + Care Team Providers + +------+ + | Care Nursing Home Assistant Administrator Name | Role | Phone | + +------+ + | Kristian Anderson DO | PCP | | + +------+ + Encounter Details +--------+ + + + + | Date | Type | Department | Care Team | Description | +--------+ + + + + | 03/29/ | MyChart | Wound and Ostomy | Delores Avilez, | appointment | | 2018 | Encounter | Care [address] | RN, [facility]OC[facility] [address] | | | | [address] | [address] | | | | | [facility] | [place], [place] | | | | | [place] [address] | [address] | | | | | [place], [place] | | | | | | [address] | | | | | | [phone] | | | +--------+ + + + [...] | | | | | [place], | | | | | | [place] [address] | | | | | | [phone] | | | | | | | | +--------+---------+ + + + documented as of this encounter Visit Diagnoses Not on filedocumented in this encounter"
--- OUTSIDE RECORDS SUMMARY | ~2019-06-01 | XMS | Encounter Summary ---
Demographics + + + | Address | [address] | | | [place] [address] | + + + | Home Phone | | + + + | Preferred Language | Unknown | + + + | Marital Status | Single | + + + | Samaritan Affiliation | NON | + + + | Race | White | + + + | Ethnic Group | Not or | + + + Author + + + | Author | [facility] | + + + | Organization | [facility] | + + + | Address | Unknown | + + + | Phone | Unavailable | + + + Support + + +---------+ + | Name | Relationship | Address | Phone | + + +---------+ + | Darrius Quintana | ECON | Unknown | | + + +---------+ + Care Team Providers + +------+ + | Care Compliance Technician Name | Role | Phone | + +------+ + | Kristian Anderson DO | PCP | | + +------+ + Reason for Visit + + + | Reason | Comments | + + + | Outside Records | [place] | | Received | | + + + Encounter Details +--------+ + + + + | Date | Type | Department | Care Team | Description | +--------+ + + + + | 10/05/ | Abstract | Digestive [facility] | Ailyn Wolff MD | Outside Records | | 2017 | | Center at [facility] [address] | [address] | Received ([place]) | | | | [address] | [place], | | | | | Mailcode: [place] | [place] [address] | | | | | for [facility] and | [phone] | | | | | [facility] | | | | | | [place], [place] | | | | | | [address] | | | | | | [phone] | | | +--------+ + + + [...] | | | | | [place]mita [place], | | | | | | [place] [address] | | | | | | [phone] | | | | | | | | +--------+---------+ + + + documented as of this encounter Visit Diagnoses Not on filedocumented in this encounter"
--- OUTSIDE RECORDS SUMMARY | ~2019-06-01 | XMS | Encounter Summary ---
Demographics + + + | Address | [address] | | | [place] [address] | + + + | Home Phone | | + + + | Preferred Language | Unknown | + + + | Marital Status | Single | + + + | Restorationism Affiliation | NON | + + + | Race | White | + + + | Ethnic Group | Not or | + + + Author + + + | Author | [facility] | + + + | Organization | [facility] | + + + | Address | Unknown | + + + | Phone | Unavailable | + + + Support + + +---------+ + | Name | Relationship | Address | Phone | + + +---------+ + | Darrius Quintana | ECON | Unknown | | + + +---------+ + Care Team Providers + +------+ + | Care Project Facilitator Name | Role | Phone | + [...] | | | | CT CHEST, | [place], [place] | Mailcode: | | | | | ABDOMEN AND | [address] | [address] [facility] | | | | | [address] | Phone: | Hospital | | | | | [address] [place] | [phone] | [place], [place] | | | | | CAT SCAN OF | Fax: | [address] | | | | | CHEST | [phone] | Phone: | | | | | [address] [place] | | [phone] | | | | | [place] | | Fax: | | | | | ABDOMEN&PELV | | [phone] | | | | | IS | [...] | | | | CT CHEST, | [place], [place] | Mailcode: | | | | | ABDOMEN AND | [address] | [address] [facility] | | | | | [address] | Phone: | Hospital | | | | | [address] [place] | [phone] | [place], [place] | | | | | CAT SCAN OF | Fax: | [address] | | | | | CHEST | [phone] | Phone: | | | | | [address] [place] | | [phone] | | | | | [place] | | Fax: | | | | | ABDOMEN&PELV | | [phone] | | | | | IS | [...] | 2017 | Encounter | Services at [facility] | [address] | | | | | [address] | [place]mita Hines [place], | | | | | [place]a [place]ines Mailcode: | [place] [address] | | | | | [address] [facility] | [phone] | | | | | [place], [place] | | | | | | [address] | | | | | | [phone] | | | +--------+ + + + [...] | | | | | [place]mita H[place], | | | | | | [place] [address] | | | | | | [phone] | | | | | | | [...]
--- OUTSIDE RECORDS SUMMARY | ~2019-06-01 | XMS | Encounter Summary ---
Demographics + + + | Address | [address] | | | [place] [address] | + + + | Home Phone | | + + + | Preferred Language | Unknown | + + + | Marital Status | Single | + + + | Gnosticism Affiliation | NON | + + + | Race | White | + + + | Ethnic Group | Not or | + + + Author + + + | Author | [facility] | + + + | Organization | [facility] | + + + | Address | Unknown | + + + | Phone | Unavailable | + + + Support + + +---------+ + | Name | Relationship | Address | Phone | + + +---------+ + | Darrius Quintana | ECON | Unknown | | + + +---------+ + Care Team Providers + +------+ + | Care Machine Sole Leveler Name | Role | Phone | + [...] Ct Scan | | | | | Rectal | MD [address] | [facility] [address] | | | | | cancer (HCC) | [address] | [address] | | | | | Procedures | [address]a [address]ines | [address]a [address] | | | | | CT CHEST, | [place], [place] | Mailcode: | | | | | ABDOMEN AND | [address] | [address] [facility] | | | | | PELVIS W IV | Phone: | Hospital | | | | | [place] | [phone] | [place], [place] | | | | | CAT SCAN OF | Fax: | [phone] | | | | | CHEST | [phone] | Phone: | | | | | [place] | | [phone] | | | | | CT | | Fax: | | | | | ABDOMEN&PELV | | [phone] | | | | | IS | | | | | | | W/CONTRAST | | | +--------+--------+ + + + + Diagnostic Testing (Routine) +--------+--------+ + + + + | Status | Reason | Specialty | Diagnoses / | Referred By | Referred To | | | | | Procedures | Contact | Contact | +--------+--------+ + + + + | Closed | | Radiology | Diagnoses | Ailyn Wolff, | [facility] | | | | | Rectal | MD [address] | [address] | | | | | cancer (HCC) | [address] | [place] | | | | | Procedures | [place] | Donny | | | | | MR RECTAL | [facility] [place] | Mailcode: | | | | | [place] | [address] | [address] | | | | | MRI, PELVIS, | Phone: | [place] | | | | | COMBO | [phone] | Research | | | | | | Fax: | Center | | | | | | [phone] | [place], [place] | | | | | | | [address] | | | | | | | Phone: | | | | | | | [phone] | | | | | | | Fax: | | | | | | | [phone] | +--------+--------+ + + + + Reason for Visit + + + | Reason | Comments | + + + | Scheduling | MRI rectal protocol and CT c/a/p after 6 cycles of chemo | + + + Encounter Details +--------+ + + + + | Date | Type | Department | Care Team | Description | +--------+ + + + + | 12/08/ | Telephone | Digestive Health | Ailyn Wolff MD | Scheduling (MRI | | 2017 | | Center at [facility] [address] | [address] | rectal protocol and | | | | [address] | [address] [place], | CT c/a/p after 6 | | | | Mailcode: [place] | [place] [address] | cycles of chemo) | | | | for Health and | [phone] | | | | | [facility] [address] | | | | | | [place], [place] | | | | | | [address] | | | | | | [phone] | | | +--------+ + + + [...] | | | | | | [address], | | | | | | [place] [address] | | | | | | [phone] | | | | | | | | +--------+---------+ + + + documented as of this encounter Results CT CHEST, ABDOMEN AND PELVIS W IV CONTRAST (03/02/2017 10:29 AM PDT) + + | Specimen | + + | | + + + + + | Narrative | Performed At | + + + | EXAM: CT of the chest, abdomen and pelvis with intravenous | [facility] | | contrast. HISTORY: Rectal cancer restaging after 6 cycles of | RADIOLOGY VOICE | | chemotherapy COMPARISON: Outside CT January 03, 2017 and October 05, | RECOGNITION | | 2016. TECHNIQUE: CT of the chest, abdomen and pelvis with | | | non-ionic iodinated intravenous contrast. Coronal and sagittal | | | reformats were created. FINDINGS: CHEST: Right chest wall port | | | terminates at the cavoatrial junction. The heart and great vessels | | | are unremarkable aside from atherosclerosis. No hilar, mediastinal, or | | | axillary adenopathy. Small focus of groundglass in the posterior | | | right lower lobe measuring 9 mm is stable (image 60); attention on | | | followup. No new lung nodule. The lungs are otherwise clear. No | | | pleural fluid. LIVER: Unremarkable. BILIARY: Unremarkable. | | | PANCREAS: Unremarkable. SPLEEN: Unremarkable. ADRENALS: | | | Unremarkable. KIDNEYS/URETERS: Small left renal cysts and cortical | | | scarring, stable. Right kidney normal. PELVIC ORGANS/BLADDER: Small | | | rim-enhancing 2 x 1.6 cm fluid collection in the left anterior pelvis | | | adjacent to the dome of the bladder is new. This collection is near | | | the sigmoid staple line. The bladder is unremarkable. Uterus | | | contains a calcified fibroid. No adnexal lesion. GI TRACT: Prior | | | diverting colostomy. A parastomal hernia is seen containing | | | nonobstructed loops of jejunum, which is new. No dilated or thickened | | | loops of bowel. Persistent enhancing right mesorectal mass | | | representing treated extramural tumor measuring 3 x 1.4 cm, decreased | | | from prior where it was 3.7 x 1.6 cm. Diffuse diverticulosis. | | | PERITONEUM: Fluid collection, as above. No free fluid or | | | pneumoperitoneum. ZAIN drain remains in the left pelvis, without | | | surrounding collection. LYMPH NODES: No lymphadenopathy. VESSELS: | | | Atherosclerosis with mild abdominal aortic atresia, stable. No | | | aneurysm. BONES AND SOFT TISSUES: Unremarkable. IMPRESSION: | | | 1. No evidence of metastatic disease. 2. New small left pelvic | | | fluid collection adjacent to the Velasquez's pouch staple line could | | | represent a small abscess. 3. Decreased right mesorectal mass. See | | | concurrent rectal MRI. I have personally reviewed the images | | | and, if necessary, edited the report. I agree with the report as now | | | presented. | | + + + + + | Procedure Note | + + | Service Account, Radiant Res In Interface - 03/02/2017 10:55 AM PDT EXAM: CT of the | | chest, abdomen and pelvis with intravenous contrast.HISTORY: Rectal cancer restaging | | after 6 cycles of chemotherapyCOMPARISON: Outside CT January 03, 2017 and October 05, | | 2016.TECHNIQUE: CT of the chest, abdomen and pelvis with non-ionic iodinated | | intravenous contrast. Coronal and sagittal reformats were created.FINDINGS:CHEST: Right | | chest wall port terminates at the cavoatrial junction. The heart and great vessels are | | unremarkable aside from atherosclerosis. No hilar, mediastinal, or axillary adenopathy. | | Small focus of groundglass in the posterior right lower lobe measuring 9 mm is stable | | (image 60); attention on followup. No new lung nodule. The lungs are otherwise clear. No | | pleural fluid.LIVER: Unremarkable.BILIARY: Unremarkable.PANCREAS: Unremarkable.SPLEEN: | | Unremarkable.ADRENALS: Unremarkable.KIDNEYS/URETERS: Small left renal cysts and cortical | | scarring, stable. Right kidney normal.PELVIC ORGANS/BLADDER: Small rim-enhancing 2 x | | 1.6 cm fluid collection in the left anterior pelvis adjacent to the dome of the bladder | | is new. This collection is near the sigmoid staple line.The bladder is unremarkable. | | Uterus contains a calcified fibroid. No adnexal lesion.GI TRACT: Prior diverting | | colostomy. A parastomal hernia is seen containing nonobstructed loops of jejunum, which | | is new. No dilated or thickened loops of bowel. Persistent enhancing right mesorectal | | mass representing treated extramural tumor measuring 3 x 1.4 cm, decreased from prior | | where it was 3.7 x 1.6 cm. Diffuse diverticulosis.PERITONEUM: Fluid collection, as | | above. No free fluid or pneumoperitoneum. ZAIN drain remains in the left pelvis, without | | surrounding collection.LYMPH NODES: No lymphadenopathy.VESSELS: Atherosclerosis with | | mild abdominal aortic atresia, stable. No aneurysm.BONES AND SOFT TISSUES: | | Unremarkable.IMPRESSION: 1. No evidence of metastatic disease.2. New small left pelvic | | fluid collection adjacent to the Velasquez's pouch staple line could represent a small | | abscess.3. Decreased right mesorectal mass. See concurrent rectal MRI.I have personally | | reviewed the images and, if necessary, edited the report. I agree with the report as | | now presented. | | | |LYMPH NODES: No lymphadenopathy. | |VESSELS: Atherosclerosis with mild abdominal aortic atresia, stable. No aneurysm. | | | |BONES AND SOFT TISSUES: Unremarkable. | | | |IMPRESSION: | | | |1. No evidence of metastatic disease. | | | |2. New small left pelvic fluid collection adjacent to the Velasquez's pouch staple line could represent a small abscess. | | | |3. Decreased right mesorectal mass. See concurrent rectal MRI. | | | | | |I have [...] | | | + +---------+ + + MR CLEMENTINA Hyatt/DORY (03/02/2017 9:30 AM PDT) + + | Specimen | + + | | + + + + + | Narrative | Performed At | + + + | EXAM: MRI Rectum without and with intravenous contrast. HISTORY: | [facility] | | Restaging rectal cancer after chemotherapy. H/o ex lap, drainage of | RADIOLOGY VOICE | | left pelvic abscess, distal Velasquez stump and end sigmoid colostomy | RECOGNITION | | (07/20/2016). COMPARISON: Rectum MRIs 01/03/2017 and 10/05/2016 | | | TECHNIQUE: Multiplanar MRI of the pelvis was performed without and | | | with gadolinium based intravenous contrast on a 1.5T MR scanner. | | | Sequences include Axial and Sagittal T2 and thin-section Oblique | | | Axial T2 sequences. With low-rectal tumors, thin-section Oblique | | | Coronal T2 sequence was also performed. Image quality is Adequate. | | | FINDINGS: TUMOR: 1. Location from the anal verge: Mid to | | | high. 2. Anal verge to distal tumor margin: 7.1 cm (10/05). 3. | | | Tumor at or below the puborectalis sling: No. 4. Distance of | | | lowest extent of tumor from top of anal sphincter: 2.5 cm (12/13). 5. | | | Relationship to the anterior peritoneal reflection: Unable to | | | assess. 6. Craniocaudal length of the tumor: 5.5 cm (10/06). 7. | | | Clock face of tumor: 7:00 to 1:00 (), smaller in size compared | | | to MRI 10/05/2016. 8. Morphology: Annular. 9. Mucinous: No. | | | EXTRAMURAL DEPTH OF INVASION AND MR T-CATEGORY: 1. Extramural | | | depth of invasion: 13 mm (11/11) (measured 18mm on MRI 01/03/2017). This | | | is residual enhancing mucosal tumor, bulk of which measures 13mm in | | | thickness at 11/11. 2. T category: T4. Residual exophytic | | | component of tumor extends into right lateral mesorectal fat (). | | | Residual tumor extends anterior to redundant loop of sigmoid colon | | | (). RELATIONSHIP OF THE TUMOR TO MESORECTAL FASCIA (MRF): | | | Shortest distance of definitive tumor border to MRF: 0 mm at 12 | | | o'clock. Tumor spiculations closer to the MRF? No | | | EXTRAMURAL VASCULAR INVASION (EMVI): Absent MESORECTAL LYMPH NODES | | | AND TUMOR DEPOSITS: 1. Suspicious mesorectal nodes/tumor deposits: | | | Yes. Lymph nodes (3 in number) measuring up to 5mm at level of tumor | | | (4-5oclock) () (previously measured up to 7mm on rectum MRI | | | 01/03/2017). EXTRAMESORECTAL LYMPH NODES: Yes. Left superior | | | rectal measuring up to 4 mm (previous measured 7 mm on MRI rectum | | | 01/03/2017) (, 95 and 92). OTHER FINDINGS: Velasquez pouch with | | | left lower quadrant end sigmoid colostomy, similar to prior study. | | | Left anterior approach surgical drain with tip in the pelvis. No fluid | | | collection. Sigmoid diverticulosis. Bladder is unremarkable. | | | Calcified uterine fibroids again noted. Otherwise uterus is | | | unremarkable. Right ovary is unremarkable. Rim-enhancing fluid-filled | | | structure at the left pelvis (superior to the bladder measuring 2.0 x | | | 1.7 cm (11/12), new compared to prior studies concerning for abscess | | | versus neoplastic focus. IMPRESSION: Since 01/03/2017, overall | | | improved with residual tumor involving mid to high rectum of Velasquez | | | pouch with extension to redundant loop of sigmoid colon and extension | | | into right mesorectal fat. Treated tumor is noted with scarring. | | | Decrease in size of mesorectal and superior rectal lymph nodes. | | | Left sided pelvic drain in place. Resolved abscess in this | | | region. New probable abscess in the left anterior pelvis | | | (superior to the bladder dome); however, neoplastic focus not | | | excluded. I have personally reviewed the images and, if | | | necessary, edited the report. I agree with the report as now | | | presented. | | + + + + + | Procedure Note | + + | Service Account, Radiant Res In Interface - 03/08/2017 3:44 PM PDT EXAM: MRI Rectum | | without and with intravenous contrast. HISTORY: Restaging rectal cancer after | | chemotherapy. H/o ex lap, drainage of left pelvic abscess, distal Velasquez stump and end | | sigmoid colostomy (07/20/2016). COMPARISON: Rectum MRIs 01/03/2017 and 10/05/2016 | | TECHNIQUE: Multiplanar MRI of the pelvis was performed without and with gadolinium based | | intravenous contrast on a 1.5T MR scanner. Sequences include Axial and Sagittal T2 and | | thin-section Oblique Axial T2 sequences. With low-rectal tumors, thin-section Oblique | | Coronal T2 sequence was also performed.Image quality is Adequate.FINDINGS: TUMOR:1. | | Location from the anal verge: Mid to high.2. Anal verge to distal tumor margin: 7.1 cm | | (10/05).3. Tumor at or below the puborectalis sling: No.4. Distance of lowest extent of | | tumor from top of anal sphincter: 2.5 cm (12/13).5. Relationship to the anterior | | peritoneal reflection: Unable to assess.6. Craniocaudal length of the tumor: 5.5 cm | | (10/06).7. Clock face of tumor: 7:00 to 1:00 (), smaller in size compared to MRI | | 10/05/2016. 8. Morphology: Annular.9. Mucinous: No.EXTRAMURAL DEPTH OF INVASION AND | | MR T-CATEGORY:1. Extramural depth of invasion: 13 mm (11/11) (measured 18mm on MRI | | 01/03/2017). This is residual enhancing mucosal tumor, bulk of which measures 13mm in | | thickness at 11/11. 2. T category: T4. Residual exophytic component of tumor extends | | into right lateral mesorectal fat (). Residual tumor extends anterior to redundant | | loop of sigmoid colon (). RELATIONSHIP OF THE TUMOR TO MESORECTAL FASCIA | | (MRF):Shortest distance of definitive tumor border to MRF: 0 mm at 12 o'clock. Tumor | | spiculations closer to the MRF? No EXTRAMURAL VASCULAR INVASION (EMVI): Absent | | MESORECTAL LYMPH NODES AND TUMOR DEPOSITS:1. Suspicious mesorectal nodes/tumor deposits: | | Yes. Lymph nodes (3 in number) measuring up to 5mm at level of tumor (4-5oclock) | | () (previously measured up to 7mm on rectum MRI 01/03/2017).EXTRAMESORECTAL LYMPH | | NODES: Yes. Left superior rectal measuring up to 4 mm (previous measured 7 mm on MRI | | rectum 01/03/2017) (/, 95 and 92). OTHER FINDINGS: Velasquez pouch with left lower | | quadrant end sigmoid colostomy, similar to prior study. Left anterior approach surgical | | drain with tip in the pelvis. No fluid collection. Sigmoid diverticulosis.Bladder is | | unremarkable. Calcified uterine fibroids again noted. Otherwise uterus is unremarkable. | | Right ovary is unremarkable. Rim-enhancing fluid-filled structure at the left pelvis | | (superior to the bladder measuring 2.0 x 1.7 cm (11/12), new compared to prior studies | | concerning for abscess versus neoplastic focus. IMPRESSION:Since 01/03/2017, overall | | improved with residual tumor involving mid to high rectum of Velasquez pouch with | | extension to redundant loop of sigmoid colon and extension into right mesorectal fat. | | Treated tumor is noted with scarring. Decrease in size of mesorectal and superior | | rectal lymph nodes. Left sided pelvic drain in place. Resolved abscess in this region. | | New probable abscess in the left anterior pelvis (superior to the bladder dome); | | however, neoplastic focus not excluded. I have personally reviewed the images and, if | | necessary, edited the report. I agree with the report as now presented. | | | |OTHER FINDINGS: Velasquez pouch with left lower quadrant end sigmoid colostomy, similar to pr ior study. Left anterior approach surgical drain with tip in the pelvis. No fluid collection . Sigmoid diverticulosis. | | | |Bladder is unremarkable. Calcified uterine fibroids again noted. Otherwise uterus is unrema rkable. Right ovary is unremarkable. Rim-enhancing fluid-filled structure at the left pelvis (superior to the bladder | |measuring 2.0 x 1.7 cm (11/12), new compared to prior studies concerning for abscess versus neoplastic focus. | | | |IMPRESSION: | | | |Since 01/03/2017, overall improved with residual tumor involving mid to high rectum of Hartm an pouch with extension to redundant loop of sigmoid colon and extension into right mesorect al fat. Treated tumor is noted | |with scarring. Decrease in size of mesorectal and superior rectal lymph nodes. | | | |Left sided pelvic drain in place. Resolved abscess in this region. | | | |New probable abscess in the left anterior pelvis (superior to the bladder dome); however, n eoplastic focus not excluded. | | | | | |I have [...] rectum | + + documented in this encounter"
--- OUTSIDE RECORDS SUMMARY | ~2019-06-01 | XMS | Encounter Summary ---
Demographics + + + | Address | [address] | | | [place] [address] | + + + | Home Phone [...] + + + | Author | [facility] | + + + | Organization | [facility] | + + + | Address | Unknown | + + + | Phone | Unavailable | + + + Support + + +---------+ + | Name | Relationship | Address | Phone | + + +---------+ + | Darrius Quintana | ECON | Unknown | | + + +---------+ + Care Team Providers + +------+ + | Care Tie Knitter Helper Name | Role | Phone | + [...] | | | | CT CHEST, | [place], [place] | Mailcode: | | | | | ABDOMEN AND | [address] | [address] [facility] | | | | | PELVIS W IV | Phone: | Hospital | | | | | [place] | [phone] | [place], [place] | | | | | CAT SCAN OF | Fax: | [address] | | | | | CHEST | [phone] | Phone: | | | | | [place] | | [phone] | | | | | CT | | Fax: | | | | | ABDOMEN&PELV | | [phone] | | | | | IS | | | | | | | W/CONTRAST | | | +--------+--------+ + + + + Encounter Details +--------+ + + + + | Date | Type | Department | Care Team | Description | +--------+ + + + + | 04/19/ | [facility] | Dig[facility]ive [facility] | Ailyn Wolff MD | Colorectal cancer | | 2017 | | [place] at [facility] [address] | [address] | (HCC) (Primary Dx) | | | | [address] | [address] [place], | | | | | Mailcode: [place] | [place] [address] | | | | | for Health and | [phone] | | | | | [facility] [address] | | | | | | [place], [place] | | | | | | [address] | | | | | | [phone] | | | +--------+ + + + [...] | | | | | [address] [place], | | | | | | [place] [address] | | | | | | [phone] | | | | | | | [...] | + + | Colorectal cancer (HCC) - Primary Malignant neoplasm of rectosigmoid junction | + + documented in this encounter"
--- OUTSIDE RECORDS SUMMARY | ~2019-06-01 | XMS | Encounter Summary ---
Demographics + + + | Address | [address] | | | [place] [address] | + + + | Home Phone | | + + + | Preferred Language | Unknown | + + + | Marital Status | Single | + + + | Episcopalian Affiliation | NON | + + + | Race | White | + + + | Ethnic Group | Not or | + + + Author + + + | Author | [facility] | + + + | Organization | [facility] | + + + | Address | Unknown | + + + | Phone | Unavailable | + + + Support + + +---------+ + | Name | Relationship | Address | Phone | + + +---------+ + | Darrius Quintana | ECON | Unknown | | + + +---------+ + Care Team Providers + +------+ + | Care Magistrate Name | Role | Phone | + +------+ + | Kristian nAderson DO | PCP | | + +------+ + Reason for Visit + + + | Reason | Comments | + + + | Medical Records | | | Review | | + + + Encounter Details +--------+ + + + + | Date | Type | Department | Care Team | Description | +--------+ + + + + | 10/28/ | Abstract | Digestive Health | Ailyn Wolff MD | Medical Records | | 2017 | | Center at [facility] [address] | [address] | Review | | | | [address] | [address] [place], | | | | | Mailcode: [place] | [place] [address] | | | | | for Health and | [phone] | | | | | [facility] | | | | | | [place], [place] | | | | | | [address] | | | | | | [phone] | | | +--------+ + + + [...] | | | | | [address] [place], | | | | | | [place] [address] | | | | | | [phone] | | | | | | | | +--------+---------+ + + + documented as of this encounter Visit Diagnoses Not on filedocumented in this encounter"
--- OUTSIDE RECORDS SUMMARY | ~2019-06-01 | XMS | Encounter Summary ---
Demographics + + + | Address | [address] | | | [place] [address] | + + + | Home Phone | | + + + | Preferred Language | Unknown | + + + | Marital Status | Single | + + + | Scientologist Affiliation | NON | + + + | Race | White | + + + | Ethnic Group | Not or | + + + Author + + + | Author | [facility] | + + + | Organization | [facility] | + + + | Address | Unknown | + + + | Phone | Unavailable | + + + Support + + +---------+ + | Name | Relationship | Address | Phone | + + +---------+ + | Darrius Quintana | ECON | Unknown | | + + +---------+ + Care Team Providers + +------+ + | Care Supervisory Forester Name | Role | Phone | + +------+ + | Kristian Anderson DO | PCP | | + +------+ + Reason for Referral PROC - Inpatient Surgery (Routine) +--------+--------+ + + + + | Status | Reason | Specialty | Diagnoses / | Referred By | Referred To | | | | | Procedures | Contact | Contact | +--------+--------+ + + + + | Closed | | Surgery | Diagnoses | Ailyn oWlff, | Ailyn Wolff, | | | | | Rectal | [address] | | | | | cancer (HCC) | [place] | [place] | | | | | Procedures | Amita Hines | Amita Hines | | | | | REQUEST TO | [place], [place] | [place], [place] | | | | | SURGERY | [address] | [address] | | | | | NET FRONT END DEVELOPER | Phone: | Phone: | | | | | DC PART | [phone] | [phone] | | | | | REMOVAL | Fax: | Fax: | | | | | COLON W | [phone] | [phone] | | | | | COLOPROCTOST | | | | | | | LORI DC PART | | | | | | | REMOVAL | | | | | | | COLON W | | | | | | | COLOPROC,COL | | | | | | | OST DC | | | | | | | ILEOSTOMY/JE | | | | | | | JUNOSTOMY,NO | | | | | | | NTUBE DC | | | | | | | REMOVE | | | | | | | VAGINA WALL, | | | | | | | PARTIAL DC | | | | | | | REMOVE | | | | | | | VAGINA | | | | | | | TISSUE/PARTI | | | | | | | AL DC | | | | | | | COMPLETE | | | | | | | REMOVAL OF | | | | | | | VAGINA WALL | | | | | | | requesting | | | | | | | 4 day los | | | +--------+--------+ + + + + Reason for Visit + + + | Reason | Comments | + + + | Return Patient | | + + + | Rectal cancer | | + + + Office Visit - E/M Services (Urgent) +--------+--------+ + + + + | Status | Reason | Specialty | Diagnoses / | Referred By | Referred To | | | | | Procedures | Contact | Contact | +--------+--------+ + + + + | Closed | | Surgery | Diagnoses | Kirstie, | Ailyn Wolff, | | | | | Malignant | Marty Toledo MD | [address] | | | | | neoplasm of | [place] | [place] | | | | | rectum | SURGICAL | Amita Hines | | | | | | CLINIC [facility] | [place], [place] | | | | | | [address] | [address] | [address] | | | | [address] | Phone: | | | | | | [place], | [phone] | | | | | | [place] [address] | Fax: | | | | | | Phone: | [phone] | | | | | | [phone] | | | | | | | Fax: | | | | | | | [phone] | | +--------+--------+ + + + + Encounter Details +--------+---------+ + + + | Date | Type | Department | Care Team | Description | +--------+---------+ + + + | 03/02/ | Office | Digestive Health | Ailyn Wolff MD | Rectal cancer (HCC) | | 2017 | Visit | Center at [facility] [address] | [address] | (Primary Dx) | | | | [address] | [facility], | | | | | Mailcode: [facility] [address] | | | | | [facility] and | [phone] | | | | | [place] [address] | | | | | | [place], [place] | | | | | | [address] | | | | | | [phone] | | | +--------+---------+ + + + [...] + + + | Blood Pressure | 126/83 | 03/02/2017 1:20 PM | | | | | PDT | | + + + + + | Pulse | 100 | 03/02/2017 1:20 PM | | | | | PDT | | + + + + + | Temperature | 36.8 C (98.2 F) | 03/02/2017 1:20 PM | | | | | PDT | | + + + + + | Respiratory Rate | 16 | 03/02/2017 1:20 PM | | | | | PDT | | + + + + + | Oxygen Saturation | - | - | | + + + + + | Inhaled Oxygen | - | - | | | Concentration | | | | + + + + + | Weight | 71.4 kg (157 lb 6.4 | 03/02/2017 1:20 PM | | | | oz) | PDT | | + + + + + | Height | 160 cm (5' 3") | 03/02/2017 1:20 PM | | | | | PDT | | + + + + + | Body Mass Index | 27.88 | 03/02/2017 1:20 PM | | | | | PDT | | + + + + + documented in this encounter Patient Instructions Patient Instructions Noelle Davidson RN - 03/02/2017 1:40 PM PDTPATIENT SURGERY INFORMATION [facility] General Surgery Office Toll-free: , request [facility] Surgery Date: 04/21/2017 Procedure: Low anterior resection with posterior vaginectomy Surgeon Name: Dr. Ailyn Wolff MD DIRECTIONS FOR SURGERY DIET You should have clear liquids only for the entire day prior to surgery, no solid food. Kailee r liquids include anything you can see through, like water, fernando zack, lemon-ione soft drin ks, apple juice, tea, Gatorade/sports drinks, Jell-O, broth soups, popsicles, and coffee. DO NOT EAT OR DRINK ANYTHING AFTER MIDNIGHT PRIOR TO YOUR SURGERY, EXCEPT FOR ANY REQUIRED MEDICATIONS WITH A SIP OF WATER. LAXATIVES These laxatives are liquids taken by mouth that will cause bowel movements. Some people may experience nausea, bloating, fullness, and perhaps vomiting. Miralax and Gatorade Bowel Prep Items needed before starting: -One 238gm bottle of Miralax (Polyethylene Glycol 3350 powder). This can be bought over the counter. -Two 32 ounce bottles of Gatorade (any flavor or color is acceptable) -Antibiotics Please follow these instructions carefully: 1. Only eat and drink things on the Clear Liquid Diet: a. Water, flavored water b. Carbonated beverages such as soda (including izabella) c. Clear soup (chicken, vegetable, beef broth, bouillon)-NO noodles allowed d. Coffee, Green or Black tea without cream or milk (sugar, sugar substitutes, and honey ar e okay) e. Grape, Apple, or Cranberry juice (NO tomato, orange, or other pulpy juices) f. Jello (No added fruit) g. Popsicles and KoolAid h. Gatorade, Sports Drinks It is important to make sure you include salty liquids such as broth to help prevent exce ss sodium loss. 2. You must drink at least six large glasses of clear liquids on the day before surgery, in addition to breakfast, lunch, and dinner. You may drink more if you desire. 3. If you have questions please contact the clinic at [phone], if it is after clinic h ours please call the vehicle operator technician at [phone] and ask to speak to the [place] [facility] Resident chuck boner. CAUTION! Please call the clinic if you experience any rectal bleeding, weakness or dizzines s, abdominal pain or vomiting. Feelings of nausea, abdominal cramping, and abdominal fullness are common after starting th e prep. These feelings are usually temporary. Day Before Surgery: Morning Begin clear liquid diet 1pm Take Neomycin 1gm (Note 1gm= two 500 mg tablets) and Flagyl 500 mg with 1 (8oz) glass o f clear liquid 2pm Take Neomycin 1gm (Note 1gm= two 500 mg tablets) and Flagyl 500 mg with 1 (8oz) glass of clear liquid 3pm Mix the entire 238gm bottle of Miralax with the Gatorade. Pour half of the powder into each 32 ounce bottle of Gatorade. Shake the solution to mix thoroughly. Drink an 8 oz glass every 10-15 minutes until the solution is gone. 4-10 pm Continue drinking 8oz of clear liquids hourly until bedtime. 11pm Take Neomycin 1gm (Note 1gm= two 500 mg tablets) and Flagyl 500 mg with 1 (8oz) glass of clear liquid 12 Midnight Nothing to eat or drink after midnight. If you cannot complete your bowel preparation, please contact the surgery office at [phone]. After hours and on weekends this number may refer you to the hospital vehicle operator technician ); please ask to speak to the general surgery resident chuck boner for Dr Javed. MEDICATIONS You may take your regular medications with a sip of water the morning of surgery unless oth erwise directed by your physician. (Do Not take Aspirin, Ibuprofen, Aleve, or Coumadin). Unless otherwise directed, do not take any Aspirin, vitamin E or non-steroidal anti-inflamm atory (NSAIDs i.e. Advil, Aleve, Ibuprofen) or herbal supplements seven days prior to your s urgery. These drugs may interfere with normal blood clotting and may cause excessive bleedin g and bruising during or after the surgery. Please see the list below, which has a list of p roducts that contain Aspirin, Ibuprofen, or Vitamin E If you are taking Coumadin (warfarin), Plavix or any other blood thinners please let your s urgical team know as medication changes will be necessary. If you need a pain medication for general purposes, use Tylenol as directed. If you are in doubt about any medications that you are taking, please contact our office. Herbal medications are frequently used by patients undergoing surgery. Some of these agents have physiologic effects that could be deleterious in the perioperative period, including p recipitation of clotting disorders and interactions with anesthetics. Since there is no evid ence that herbal medications improve surgical outcomes, and there are theoretic reasons that these agents may increase perioperative morbidity, we recommend they be stopped before surg claude. Ephedra (ma lanza) may increase the risk of heart attack and stroke and should be discontin ued at least 24 hours prior to surgery. Garlic may increase bleeding risk and should be discontinued at least 7 days prior to surge ry. Ginkgo may increase bleeding risk and should be discontinued at least 36 hours prior to alberto darren. Ginseng lowers blood sugar and may increase bleeding risk and should be discontinued at alejandro st 7 days prior to surgery. Kava may increase the sedative effect of anesthetics and should be discontinued at least 24 hours prior to surgery. The Food and Drug Administration has issued a safety alert about an association between kava use and fatal hepatotoxicity. (See Hepatotoxicity due to herbal me dications). Rowena's wort may diminish the effects of several drugs by induction of cytochrome p450 e nzymes and should be discontinued at least 5 days prior to surgery. Valerian may increase the sedative effect of anesthetics and is associated with benzodiazep ine-like withdrawal. There are no data on preoperative discontinuation. Ideally it is tapere d weeks before surgery; if not, withdrawal is treated with benzodiazepines. Echinacea is associated with allergic reactions and immune suppression. There are no data o n preoperative discontinuation. For simplicity and because the exact nature and purity of some herbal medications is unclea r, we recommend that other herbal agents be stopped at least one week before surgery. PRE-OP BATHING/SHOWERING Bath or shower the evening before and the morning of your surgery After your shower or bath do not apply lotions, powders, or deodorant SMOKING You should not smoke for four weeks prior to the procedure and two weeks after the procedur e. Smoking is not allowed on the [facility] campus. If you are a smoker, please make sure we discu ss a plan for managing nicotine withdrawal while in the hospital as well as resources for sm oking cessation. Smoking adds significantly to the risks of your procedure. Smoking near the time of surgery causes a more acute narrowing of the blood vessels, which may lead to decreased blood flow to the tissue, poor healing, or actual loss of tissue. IF you have 3-4 weeks before your jeremías nned procedure and wish to quit, we will help you with resources and support. THE DAY OF THE PROCEDURE WHEN TO ARRIVE The OR schedules are finalized in the afternoon on the day prior to the procedure. On the day prior to surgery you will be notified of your check-in time by our office. If yo u do not hear from anyone by 3:00 PM please call for [id number]. PARKING Parking for patients and visitors is available in the [facility] Parking structure located across from the emergency department. Patient parking is available on level 1 and 3. Metere d parking is available on the top level. CHECKING IN FOR SURGERY Go in the main entrance and check in at the Admitting Desk 9th floor of [facility] TRANSPORTATION You will require transportation home on the day of discharge. Pain medications and physical activity restrictions may limit your ability to drive safely. CANCELLING YOUR PROCEDURE Please notify the general surgery office at [phone] as soon as possible should you nee d to cancel or change your surgery date. We will attempt to reschedule your procedure in a t imely manner however due to a limited amount of operating room time a waiting list is not un common. ILLNESS Please call our office with any signs of illness such as cold, flu, infection, fever, or sk in rash/infection anytime prior to your surgery. PRODUCTS CONTAINING ASPIRIN Katelyn-Pennock, Anacin, Anexsia with Codeine, Andynos, Aspirin, Aspirin suppositories, Ascrip tin, Aspergum, Axotal, B-A-C, Baby Aspirin, Tony, BC Powder, Bexophene, Buffaprin, Bufferin , Buffinol, Cama-Arthritis Strength, Congespirin, Crandon, Coricidin, Damason, Darvon, Dristan, Annetta-Gesic, Digel, Dolprin #3 Tablets, Donatab, Doxaphene, Duragesic, Easprin, Ecotrin, Emag rin Forte, Emiprin, Emprazil, Equagesic, Equazine M, Excedrin, Fiogesic, Fiorgen PH, Fiorice t, Fiorinal, 4-Way Cold Tablet Gemnisyn, Indocin, Liquprin, Lortab ASA, Magnaprin, Marnal, Meprobamate, Midol, Momentum, N orgesic, Heaters, Orphengesic, Pabalate, P-A-C, Percodan, Presalin, Robaxasil, Roxiprin, Brian eto, Salocol SK-65 Compound, Sine-Aid, Sine-Off,, [place], Supac, Talwin Compound, Trigesic, Tolectin , Traiminicin, Vanquish, ZORprin, Zomax PRODUCTS CONTAINING IBUPROFEN Advil, Aleve, Haltran, Medipren, Midol, Motrin, Naproxyn, Nuprin, Rufen OTHER PRODUCTS WHICH MAY PROMOTE BLEEDING Vitamin E, Gingko Biloba, Marine Fatty Acids, Ashton-3 Fish Oil Supplements Registration Process for all Admissions/Surgeries Please bring your insurance card(s) with you and be prepared to pay any co-payment, co-insu armando or deposit that may be required. Once you arrive at the registration desk, you will be interviewed by a Patient Access Servi ce Specialist (MARTIN). Demographics will be verified (example: name, date of , Social Sec urity Number, address, insurance). You will be asked to sign some paperwork: Terms and Conditions of Service, Notice of Privac y Practices Acknowledgement and Genetic Testing Opt Out. You will be given some paperwork: copies of any forms signed by you, Patient Rights, Respon sibilities and Safety, Understanding Advance Directives, and Smoking Cessation Brochure. documented in this encounter Progress Notes Emily Gresham MA - 03/02/2017 1:40 PM PDTExamination chaperoned by Emily Levi CMA. Noelle Carrasquillo RN - 03/02/2017 1:40 PM PDTNPO after midnight, Miralax/Gatorade bowel prep with abx, IMPAC T, prevention of constipation and pain control after surgery, responsible ride home upon dis charge from the hospital. Discussed pre-operative plan such as corrugator supervisor calling the day before surgery to gi ve exact time that the pt will need to be at the hospital. She will also be able to answer q uestions about parking, directions to admitting. Also discussed showering, brushing teeth ni ght before and morning of surgery as well as not wearing make up, contact lenses, lotions, p owder, aftershave the day of surgery. Discussed changing into a gown, getting an IV, meetin g anesthesia and having an opportunity to ask any questions. Discussed length of surgery and time in the recovery room. Discussed length of stay in the hospital up on the floor. Discus sed controlling pain (IV to oral med transition), controlling n/v, early ambulation, TCDB/IS , progressive diet starting with clears, need for PMC appt (STRADDLE BUG DRIVER-need to schedule), ostomy mar leona appt (does not need, using previous colostomy site for new ileostomy site), post-op román t (3 wk). Pt denies further questions. I encouraged the pt to call with any questions, parveen rns, or new symptoms at [phone]. Bartolo, Ailyn White MD - 017 1:40 PM PDT COLON AND RECTAL SURGERY Attending Clinic Note Established Patient I have seen and examined the patient with the resident. I have repeated the critical porti ons of the history and exam. I discussed the case with the resident, agree with the histor y and findings, and formulated the plan as documented in the resident s note, with the deonte gerardo additions: Assessment: 56 y.o. female with htn, elevated lipids, heartburn, nephrolithiasis, and liche n sclerosus endoscopically obstructing mriT4 N0 M0 rectal mass (6 cm from verge) invading vagina rectal urgency and a lot of rectal bleeding on 07/19/16 went to the [facility] ED CT abdomen/pelvis with IV contrast (07/20/16) 11 cm complex mass in pelvis, either necrotic neoplasm or abscess admitted by Dr. Thacker on 07/20/16 exploratory laparotomy, transabdominal drainage of left pelvic abscess with #10 flat Albert drain, placement of prolene stitch on distal Donnelly stump, and construction of end sigmoid colostomy [...] cm from anal verge presented at the [facility] Multidisciplinary GI Oncology Conference on 10/07/16 diagnosis: T4 N0 M0 rectal mass invading the vagina, with drainage of necrotic tumor, possible abdominal cavity seeding but no visible lymphadenopathy/metastases already diverted with end colostomy drain putting [...] 10/07/16. He is willing to try to get more tissue. I spoke to Dr. Mike Islas on 10/07/16. He was willing to start with FOLFOX and to hold off on chemoradiation until closer to surgery I spoke with the patient on 10/07/16. Questions answered. She wishes to proceed with the above plan. repeat anal biopsy on 10/27/16, c/w malignancy 6 cycles of FOLFOX, last cycle on 12/27/2016 completed 4500 cGy with 540 boost, 25 fractions, 01/10/17-02/17/17. MRI pelvis (03/02/17) tumor response but circumferential margin still threatened CT chest/abdomen/pelvis with IV contrast (03/02/17) no metastatic disease small left fluid collection next to Mendoza pouch staple line presented at [facility] Multidisciplinary GI Oncology Conference on 03/10/17. Given borderline resectability, give 6 more cycles of FOLFOX, restage with MRI, followed by posterior exenteration (abdominoperineal resection, hysterectomy, posterior vaginectomy, and VRAM). Low anterior may not be able to resect all of this. She may need intraop radiation therapy. This plan was discussed with both the patient and local oncologist acceptable nutrition albumin (09/13/16) 3.5 quit smoking on 07/19/16 Plan: Present at the [facility] Multidisciplinary GI Oncology Conference on 03/10/17. Given borderline resectability, give 6 more cycles of FOLFOX, restage with MRI, followed by posterior exenteration (abdominoperineal resection, hysterectomy, posterior v aginectomy, and VRAM). Low anterior may not be able to resect all of this. She may need intraop radiation therapy. This plan was discussed with both the patient and local oncologist Chief Complaint: 55 y.o. female with intermittent rectal bleeding since ~2013 and tailbone pain since 07/19/17. History of Present Illness: On 10/05/16, she told me: "intermittent rectal bleeding since ~2013 She had rectal urgency and a lot of rectal bleeding on 07/19/16. She [facility] ED. CT abdomen/pelvis with IV contrast (07/20/16) 11 cm complex mass in pelvis, either necrotic neoplasm or abscess She was admitted by Dr. Thacker on 07/20/16. exploratory laparotomy, transabdominal drainage of left pelvic abscess with #10 flat Albert drain, placement of prolene stitch on distal Donnelly stump, construction of end sigmoid colostomy (07/21/16) colonoscopy [...] cm from anal verge CEA (09/13/16) 10.71 albumin (09/13/16) 3.5 CT chest with IV contrast (09/17/16) 5x3 mm RML nodule 2 mm RML nodule no clear lung metastases placement of right internal jugular port-a-cath (Dr. Thacker, 09/22/16) seen by local medical oncology (Mike Islas) on 10/01/16. recommended long course neoadjuvant chemoradiation. Currently, creamy vaginal drainage 3 times a day. Every night, bleeding from her vagina. Daily rectal bleeding. Intermittent (daily), worsening, up to 10/10 tailbone pain. That i s completely relieved with vicodin. Increasing brown liquid drainage within her drain. Em pties her colostomy bag 2 times a day. She changes her colostomy appliance once a weak. Only had a problem with her seal once, immediately after her colonoscopy. Gaining weight s lowly. 1/10 parastomal pain. Tolerating her diet. Nausea but no emesis. Worsening appetite." She came on 10/05/16 for urgent evaluation of her rectal cancer. We had arranged for the pe lvic MRI and the CT of the chest/abdomen/pelvis with IV contrast.' rectal cancer protocol MRI (10/05/16) 9.6 cm lesion invasion of loop of sigmoid colon no clear invasion of other pelvic organs involvement of circumferential radial margin no extramural vascular invasion no adenopathy CT abdomen/pelvis with IV contrast (10/05/16) no liver metastases rigid proctoscopy by me (10/05/16) 6 cm from anal verge presented at the [facility] Multidisciplinary GI Oncology Conference on 10/07/16 diagnosis: T4 N0 M0 rectal mass invading the vagina, with drainage of necrotic tumor, possible abdominal cavity seeding but no visible lymphadenopathy/metastases already diverted with end colostomy drain putting [...] 10/07/16. He is willing to try to get more tissue. I spoke to Dr. Mike Islas on 10/07/16. He was willing to start with FOLFOX and to hold off on chemoradiation until closer to surgery I spoke with the patient on 10/07/16. Questions answered. She wishes to proceed with the above plan. Repeat anal biopsy on 10/27/16. 6 cycles of FOLFOX, last cycle on 12/27/2016 Completed 4500 cGy with 540 boost, 25 fractions, 01/10/17-02/17/17. MRI pelvis (today) CT chest/abdomen/pelvis with IV contrast (today) no metastatic disease small left fluid collection next to Mendoza pouch staple line Tingling in fingers is gone. Eating more healthy. Nausea. Gaining weight. Not smoking. Empties her colostomy bag 3 times a day. Changes her appliance once a week. Taking fla gyl for the LLQ tenderness/malodorous drainage. See resident note. She comes to discuss he r next treatment options. Note: She quit smoking on 07/19/16. No anal surgeries Past Medical History: Diagnosis Date Elevated lipids Heartburn HTN (hypertension) Lichen sclerosus Nephrolithiasis OB History Para Term AB TAB SAB Ectopic Multiple Living 2 1 1 1 Obstetric Comments D&C x2 1 vaginal delivery: 5 lbs 9 ounces. Episiotomy. No forceps or tearing. Past Surgical History Procedure Laterality Date D&c (dilatation and curettage) 1980 x2 Exploratory laparotomy, transabdominal drainage of left pelvic abscess with #10 flat bl guadalupe drain, placement of prolene stitch on distal donnelly stump, construction of end sigmoid colostomy 07/21/2016 Colonoscopy via anus to low rectal mass and via ostomy to cecum with good prep, rigid p roctoscopy 09/02/2016 Placement of right internal jugular port-a-cath 09/22/2016 Carpal tunnel release in mid ' Extracorporeal shock wave lithotripsy Excision of 2 facial cyst Repeat anal biopsy 10/27/2016 Allergies: No Known Allergies Current Outpatient Prescriptions Medication Sig ASCORBIC ACID (VITAMIN C ORAL) Take 1 tablet by mouth once daily. biotin 1,000 mcg oral tablet,chewable Chew and swallow. buPROPion SR 150 mg oral tablet extended release Take 150 mg by mouth once daily in the morning. CRANBERRY ORAL Take 4,200 mg by mouth. HYDROcodone-acetaminophen (NORCO) 5-325 mg oral tablet Take 1 tablet by mouth every fou r hours as needed. LORazepam 1 mg oral tablet Take 1 mg by mouth every four hours as needed for anxiety. metroNIDAZOLE 500 mg oral tablet Take 500 mg by mouth every eight hours. Done on 7 MULTIVITAMIN ORAL Take by mouth. ondansetron ODT 8 mg oral tablet,disintegrating Dissolve 8 mg in mouth every twelve ksenia rs as needed. potassium chloride 20 mEq oral packet Take 20 mEq by mouth once daily. tolterodine 2 mg oral tablet Take 2 mg by mouth once daily. No current facility-administered medications for this visit. Family History Problem Relation Cancer Mother breast Hypertension Mother Heart Attack Father from [place] at age 52 Diabetes Father Heart Attack Brother Coronary Artery Disease Brother NATHAN x 4 Social History Social History Marital status: Single Spouse name: Number of children: 1 Years of education: 12 Occupational History [employer] Social History Main Topics Smoking status: Former Smoker Packs/day: 1.50 Years: 41.00 Quit date: 07/19/2016 Smokeless tobacco: Former User Alcohol use No Drug use: No Sexual activity: Not Currently Review of systems: No fevers, chills, cough, shortness of breath, chest pain, or chest p ressure. See my HPI, resident HPI, and resident review of systems. Wears glasses. All ot her systems reviewed and are negative. Physical exam: BP 126/83 | Pulse 100 | Temp (Src) 36.8 C (98.2 F) (Oral) | RR 16 | Ht 1.6 m (5' 3") | Wt 71.4 kg (157 lb 6.4 oz) | BMI 27.88 kg/(m^2) General: well-developed, well-nourished female in NAD Mental Status: A&O x 4 Neurologic: moves all extremities well HEENT: anicteric sclera, EOMI, no facial sinus tenderness, oropharynx benign Neck: supple, no LAD, no thyromegaly Lungs: clear to auscultation bilaterally Heart: regular rate and rhythm Abd: soft, midline incision, left-sided ostomy, mild LLQ tenderness, nondistended Back: mild lower lumbar but no other spinal or costovertebral tenderness Groins: no inguinal lymphadenopathy Vascular: 2+ femoral pulses Extremities: no calf tenderness, no clubbing/cyanosis/edema Perineum: no external hemorrhoids or fissures; flat, white changes anteriorly Vaginal: lesion invading left posterior wall near fornix Rectal: normal tone, mass, closest on the right, about several above puborectalis From 10/05/16 "Rigid proctoscopy: lesion at 6 cm from anal verge" With this established patient, I spent 38 minutes of [id number]-[id number] time, of which more than half the time was spent in counseling. 18 minute document review cc: Dr. Alfaro, Radiation Oncology at [facility] in [place]. Hemalatha Browning MD - 03/02/2017 1:40 PM PDT 03/02/2017 [facility] New Patient Consultation Referring Physician: Marty Thacker MD HPI: Jenn Parada is a 56 y.o. female with CA of the rectum dx in 06/2016 now sp six cycl es of Folfox and a course of chemoradiation 02/16 sp ex lap with sigmoid colostomy with Hartmans pouch and pelvic abscess drain placed 07/21 and rectal cancer dx via colonoscopy. Last seen in clinic on 10/05/2016. Here today for pre op discussion of LAR with possible po sterior vaginectomy. Patient does not have bleeding per rectum since the beginning of radiation 6 wks ago. Pt en dorses some nausea but no vomiting, empties the bag on average three times a day "before it gets too full." Of note pt has did not have to empty albert drain often (every three days) u ntil chemo and radiation began in September and now empties about three times a day (300 mL tota l), notices increase with more PO intake and activity. Color has changed from white to a more greenish color. Denies any fevers. Currently on abx metronidazole per oncologist for drain. Pt also endorses parastomal hernia. PMH: Past Medical History: Diagnosis Date Elevated lipids Heartburn HTN (hypertension) Lichen sclerosus Nephrolithiasis PSH: Past Surgical History Procedure Laterality Date D&c (dilatation and curettage) 1980 x2 Exploratory laparotomy, transabdominal drainage of left [...] 2 facial cyst Repeat anal biopsy 10/27/2016 MED: Current Outpatient Prescriptions on File Prior to Visit Medication Sig Dispense Refill ASCORBIC ACID (VITAMIN C ORAL) Take 1 tablet by mouth once daily. buPROPion SR 150 mg oral tablet extended release Take 150 mg by mouth once daily in the morning. HYDROcodone-acetaminophen (NORCO) 5-325 mg oral tablet Take 1 tablet by mouth every fou r hours as needed. No current facility-administered medications on file prior to visit. ALL: has No Known Allergies. SH: reports that she quit smoking about 7 months ago. She has a 61.50 pack-year smoking hi story. She quit smokeless tobacco use about 176 years ago. She reports that she does not dri nk alcohol or use illicit drugs. FH: Family history includes Cancer in her mother (breast); Coronary Artery Disease in her b rother (NATHAN x 4); Diabetes in her father; Heart Attack in her brother and father ( from [place] at age 52); and Hypertension in her mother. ROS: Review of Systems Constitutional: Negative for chills, fever and weight loss. Respiratory: Negative for cough. Cardiovascular: Negative for chest pain. Gastrointestinal: Positive for nausea. Negative for vomiting. Genitourinary: Negative. Skin: Negative. Neurological: Negative for tingling and headaches. Endo/Heme/Allergies: Negative. Psychiatric/Behavioral: The patient is nervous/anxious. Of note is on medication for urinary frequency. Exam BP 126/83 | Pulse 100 | Temp (Src) 36.8 C (98.2 F) (Oral) | RR 16 | Ht 1.6 m (5' 3") | Wt 71.4 kg (157 lb 6.4 oz) | BMI 27.88 kg/(m^2) Gen: Alert, energetic, NAD Neuro: A&O, normal gait Psych: normal affect, speech HEENT: Anicteric, no LAD appreciated Cor: Reg Pulm: Clear Abd: soft, nt, hernia appreciated on pt cough around stoma, skin is not warm or erythematou s Extr: warm, no inguinal LAD perianal skin: no lesions detected Vaginal exam: mass appreciated at 5 o'clock digital exam: Anterior hard mass appreciated, painful to the patient Anoscopy: anterior hard mass appreciated Additional data: MRI and CT completed 03/02 EXAM: CT of the chest, abdomen and pelvis with intravenous contrast. HISTORY: Rectal cancer restaging after 6 cycles of chemotherapy COMPARISON: Outside CT January 03, 2017 and October 05, 2016. TECHNIQUE: CT of the chest, abdomen and pelvis with non-ionic iodinated intravenous contr ast. Coronal and sagittal reformats were created. FINDINGS: CHEST: Right chest wall port terminates at the cavoatrial junction. The heart and great ves sels are unremarkable aside from atherosclerosis. No hilar, mediastinal, or axillary adenopa thy. Small focus of groundglass in the posterior right lower lobe measuring 9 mm is stable ( image 60); attention on followup. No new lung nodule. The lungs are otherwise clear. No pleu ral fluid. LIVER: Unremarkable. BILIARY: Unremarkable. PANCREAS: Unremarkable. SPLEEN: Unremarkable. ADRENALS: Unremarkable. KIDNEYS/URETERS: Small left renal cysts and cortical scarring, stable. Right kidney normal. PELVIC ORGANS/BLADDER: Small rim-enhancing 2 x 1.6 cm fluid collection in the left anterior pelvis adjacent to the dome of the bladder is new. This collection is near the sigmoid stap le line. The bladder is unremarkable. Uterus contains a calcified fibroid. No adnexal lesion. GI TRACT: Prior diverting colostomy. A parastomal hernia is seen containing nonobstructed l oops of jejunum, which is new. No dilated or thickened loops of bowel. Persistent enhancin g right mesorectal mass representing treated extramural tumor measuring 3 x 1.4 cm, decrease d from prior where it was 3.7 x 1.6 cm. Diffuse diverticulosis. PERITONEUM: Fluid collection, as above. No free fluid or pneumoperitoneum. ZAIN drain remains in the left pelvis, without surrounding collection. LYMPH NODES: No lymphadenopathy. VESSELS: Atherosclerosis with mild abdominal aortic atresia, stable. No aneurysm. BONES AND SOFT TISSUES: Unremarkable. IMPRESSION: 1. No evidence of metastatic disease. 2. New small left pelvic fluid collection adjacent to the Donnelly's pouch staple line could represent a small abscess. 3. Decreased right mesorectal mass. See concurrent rectal MRI. Impression: Jenn Parada is a 56 y.o. female with CA of the rectum dx in 06/2016 now sp six cycl es of Folfox and a course of chemoradiation 02/16 sp ex lap with sigmoid colostomy with Hartmans pouch and pelvic abscess drain placed 07/21 and rectal cancer dx via colonoscopy with some decrease in the size of the mass and now optimized for tumor resection. . Recommendations: Plan for Apr 21 LAR with possible posterior vaginectomy and with revision of ostomy/felton ia repair. Can repair parastomal hernia at this time also. Pt consented and given pre op directions. documented in this en counter Plan of Treatment +--------+---------+ + + + | Date | Type | Specialty | Care Team | Description | +--------+---------+ + + + | 06/18/ | Office | Surgery | Ailyn Wolff MD | | | 2019 | Visit | | [address] | | | | | | [place], | | | | | | [place] [address] | | | | | | [phone] | | | | | | | | +--------+---------+ + + + documented as of this encounter Visit Diagnoses + + | Diagnosis | + + | Rectal cancer (HCC) - Primary Malignant neoplasm of rectum | + + documented in this encounter
--- OUTSIDE RECORDS SUMMARY | ~2019-06-01 | XMS | Encounter Summary ---
Demographics + + + | Address | [address] | | | [place] [address] | + + + | Home Phone | | + + + | Preferred Language | Unknown | + + + | Marital Status | Single | + + + | Synagogue Affiliation | NON | + + + | Race | White | + + + | Ethnic Group | Not or | + + + Author + + + | Author | [facility] | + + + | Organization | [facility] | + + + | Address | Unknown | + + + | Phone | Unavailable | + + + Support + + +---------+ + | Name | Relationship | Address | Phone | + + +---------+ + | Darrius Quintana | ECON | Unknown | | + + +---------+ + Care Team Providers + +------+ + | Care Hand Tapper Name | Role | Phone | + +------+ + | Kristian Anderson DO | PCP | | + +------+ + Reason for Visit + + + | Reason | Comments | + + + | Car Gen Record | GEN Records Checklist | | Review | | + + + Encounter Details +--------+ + + + + | Date | Type | Department | Care Team | Description | +--------+ + + + + | 09/28/ | Abstract | Cardiology General | Unknown . | Car Gen Record | | 2017 | | at [facility] [address] | | Review (GEN Records | | | | [address] Mailcode: | | Checklist ) | | | | [facility] | | | | | | Health and [facility], | | | | | | Building | | | | | | Floor [place], [place] | | | | | | [address] | | | | | | [phone] | | | +--------+ + + + [...] documented as of this encounter Progress Notes Caitlin Tubbs - 09/28/2016 12:09 PM PST General Cardiology New Patient Record Check List Procedure Where/Date Date requested Report received? Y/N, Where? Imaging received? CD/ IMPAX/Not Available Comments Referring Provider - notes Dr. Thacker Yes - Abstract External Referral Last EKG with original tracings [facility] [place] Yes- Abstract Last Echo with images and report no Last Stress Test with images and report no Last Cardiac Catheterization - images and report no Last Holter or Event monitor - report no Labs (BMP, Lipids, TSH, Hemoglobin A1C in last 6 months) [facility] 09/29 Yes- A bstract [facility] Last PPM/ICD Interrogation report no Last Cardiac MRI report/images if avail no Cardiac CTA - report and images if available no Patient Preferred Lab [facility] Additional Comments: documented in this enco unter Plan of Treatment +--------+---------+ + + + | Date | Type | Specialty | Care Team | Description | +--------+---------+ + + + | 06/18/ | Office | Surgery | Ailyn Wolff MD | | | 2019 | Visit | | [address] | | | | | | [place], | | | | | | [place] [address] | | | | | | [phone] | | | | | | | | +--------+---------+ + + + documented as of this encounter Visit Diagnoses Not on filedocumented in this encounter"
--- OUTSIDE RECORDS SUMMARY | ~2019-06-01 | XMS | Encounter Summary ---
Demographics + + + | Address | [address] | | | [place] [address] | + + + | Home Phone [...] Author + + + | Author | [facility] | + + + | Organization | [facility] | + + + | Address | Unknown | + + + | Phone | Unavailable | + + + Support + + +---------+ + | Name | Relationship | Address | Phone | + + +---------+ + | Darrius Quintana | ECON | Unknown | | + + +---------+ + Care Team Providers + +------+ + | Care Mirror Painter Name | Role | Phone | + [...] | | 2017 | | Center at [facility] [address] | [address] | | | | | [address] | [place], | | | | | Mailcode: Center | [place] [address] | | | | | for Health and | [phone] | | | | | [facility] [address] | | | | | | [place], [place] | | | | | | [address] | | | | | | [phone] | | | +--------+ + + + [...] | | | | | [place], | | | | | | [place] [address] | | | | | | [phone] | | | | | | | | +--------+---------+ + + + documented as of this encounter Visit Diagnoses Not on filedocumented in this encounter"
--- OUTSIDE RECORDS SUMMARY | ~2019-06-01 | XMS | Encounter Summary ---
Demographics + + + | Address | [address] | | | [place] [address] | + + + | Home Phone [...] Team Providers + +------+ + | Care Trust Mail Clerk Name | Role | Phone | + +------+ + | Kristian Anderson DO | PCP | | + +------+ + Encounter Details +--------+ + + + + | Date | Type | Department | Care Team | Description | +--------+ + + + + | 05/05/ | Telephone | Digestive Health | Ailyn Wolff MD | | | 2017 | | [place] at [facility] [address] | [address] | | | | | [address] | [place], | | | | | Mailcode: [place] | [place] [address] | | | | | for Health and | [phone] | | | | | [facility] [address] | | | | | | [place], [place] | | | | | | [address] | | | | | | [phone] | | | +--------+ + + + [...] | | | | | [address] [place], | | | | | | [place] [address] | | | | | | [phone] | | | | | | | | +--------+---------+ + + + documented as of this encounter Visit Diagnoses Not on filedocumented in this encounter"
--- OUTSIDE RECORDS SUMMARY | ~2019-06-01 | XMS | Encounter Summary ---
Demographics + + + | Address | [address] | | | [place] [address] | + + + | Home Phone | | + + + | Preferred Language | Unknown | + + + | Marital Status | Single | + + + | Methodist Affiliation | NON | + + + | Race | White | + + + | Ethnic Group | Not or | + + + Author + + + | Author | [facility] | + + + | Organization | [facility] | + + + | Address | Unknown | + + + | Phone | Unavailable | + + + Support + + +---------+ + | Name | Relationship | Address | Phone | + + +---------+ + | Darrius Quintana | ECON | Unknown | | + + +---------+ + Care Team Providers + +------+ + | Care Business Liaison Officer Name | Role | Phone | + +------+ + | Kristian Anderson DO | PCP | | + +------+ + Reason for Visit + + + | Reason | Comments | + + + | Radiology Order | | + + + Encounter Details +--------+ + + + + | Date | Type | Department | Care Team | Description | +--------+ + + + + | 07/28/ | Telephone | Digestive Health | Ailyn Wolff MD | Radiology Order | | 2018 | | [place] [address] [address] | [address] | | | | | [address] [place], | | | | | Mailcode: [place] | [place] [address] | | | | | for Health and | [phone] | | | | | [facility] 2 | | | | | | [place], [place] | | | | | | [address] | | | | | | [phone] | | | +--------+ + + + [...] | | | | | [address] [place], | | | | | | [place] [address] | | | | | | [phone] | | | | | | | | +--------+---------+ + + + documented as of this encounter Visit Diagnoses Not on filedocumented in this encounter"
--- OUTSIDE RECORDS SUMMARY | ~2019-06-01 | XMS | Encounter Summary ---
Demographics + + + | Address | [address] | | | [place] [address] | + + + | Home Phone | | + + + | Preferred Language | Unknown | + + + | Marital Status | Single | + + + | Tenriism Affiliation | NON | + + + | Race | White | + + + | Ethnic Group | Not or | + + + Author + + + | Author | [facility] | + + + | Organization | [facility] | + + + | Address | Unknown | + + + | Phone | Unavailable | + + + Support + + +---------+ + | Name | Relationship | Address | Phone | + + +---------+ + | Darrius Quintana | ECON | Unknown | | + + +---------+ + Care Team Providers + +------+ + | Care Motor Lodge Clerk Name | Role | Phone | [...] | | 2018 | | Center at [facility] [address] | [address] | - Disregard | | | | [address] | [address] [place], | | | | | Mailcode: [place] | [place] [address] | | | | | for Health and | [phone] | | | | | [facility] 2 | | | | | | [place], [place] | | | | | | [address] | | | | | | [phone] | | | +--------+ + + + [...] | | | | | [place] [address], | | | | | | [place] [address] | | | | | | [phone] | | | | | | | | +--------+---------+ + + + documented as of this encounter Visit Diagnoses Not on filedocumented in this encounter"
--- OUTSIDE RECORDS SUMMARY | ~2019-06-01 | XMS | Encounter Summary ---
Demographics + + + | Address | [address] | | | [place] [address] | + + + | Home Phone [...] Author + + + | Author | [facility] | + + + | Organization | [facility] | + + + | Address | Unknown | + + + | Phone | Unavailable | + + + Support + + +---------+ + | Name | Relationship | Address | Phone | + + +---------+ + | Darrius Quintana | ECON | Unknown | | + + +---------+ + Care Team Providers + +------+ + | Care Towel Sorter Name | Role | Phone | + +------+ + | Kristain Anderson DO | PCP | | + [...] | | 2019 | | Center at [facility] [address] | [address] | Received | | | | [address] | [place], | | | | | Mailcode: [place] | [place] [address] | | | | | for Health and | [phone] | | | | | [facility] 2 | | | | | | [place], [place] | | | | | | [address] | | | | | | [phone] | | | +--------+ + + + [...] | | | | | [place], | | | | | | [place] [address] | | | | | | [phone] | | | | | | | | +--------+---------+ + + + documented as of this encounter Visit Diagnoses Not on filedocumented in this encounter"
--- OUTSIDE RECORDS SUMMARY | ~2019-06-01 | XMS | Encounter Summary ---
Demographics + + + | Address | [address] | | | [place] [address] | + + + | Home Phone | | + + + | Preferred Language | Unknown | + + + | Marital Status | Single | + + + | Rastafarian Affiliation | NON | + + + [...] Providers + +------+ + | Care Senior Support Engineer Name | Role | Phone | + [...] | 2017 | | Center at [facility] [address] | [address] | Review | | | | [address] | [place], | | | | | Mailcode: [place] | [place] [address] | | | | | for Health and | [phone] | | | | | [facility] 2 | | | | | | [place], [place] | | | | | | [address] | | | | | | [phone] | | | +--------+ + + + [...] | | | | | [place], | | | | | | [place] [address] | | | | | | [phone] | | | | | | | | +--------+---------+ + + + documented as of this encounter Visit Diagnoses Not on filedocumented in this encounter"
--- OUTSIDE RECORDS SUMMARY | ~2019-06-01 | XMS | Encounter Summary ---
Demographics + + + | Address | [address] | | | [place] [address] | + + + | Home Phone | | + + + | Preferred Language | Unknown | + + + | Marital Status | Single | + + + | Scientology Affiliation | NON | + + + | Race | White | + + + | Ethnic Group | Not or | + + + Author + + + | Author | [facility] | + + + | Organization | [facility] | + + + | Address | Unknown | + + + | Phone | Unavailable | + + + Support + + +---------+ + | Name | Relationship | Address | Phone | + + +---------+ + | Darrius Quintana | ECON | Unknown | | + + +---------+ + Care Team Providers + +------+ + | Care Finance Teacher Name | Role | Phone | + +------+ + | Kristian Anderson DO | PCP | | + +------+ + Encounter Details +--------+ + + + + | Date | Type | Department | Care Team | Description | +--------+ + + + + | 09/22/ | Telephone | Digestive Health | Ailyn Wolff MD | | | 2017 | | [place] at [facility] [address] | [address] | | | | | [address] | [place], | | | | | Mailcode: [place] | [place] [address] | | | | | for Health and | [phone] | | | | | [place] [address] | | | | | | [place], [place] | | | | | | [address] | | | | | | [phone] | | | +--------+ + + + [...] | | 2018 | Visit | | [address] | | | | | | [place], | | | | | | [place] [address] | | | | | | [phone] | | | | | | | | +--------+---------+ + + + documented as of this encounter Procedures + +--------+ + + + | Procedure Name | Priori | Date/Time | Associated Diagnosis | Comments | | | ty | | | | + +--------+ + + + | PATHOLOGY CONSULT - | Routin | 09/02/2016 | Rectal cancer | Results for this | | REVIEW OUTSIDE | e | | (HCC) | procedure are in the | | SLIDES | | | | results section. | + +--------+ + + + documented in this encounter Results PATHOLOGY CONSULT - REVIEW OUTSIDE SLIDES (09/02/2016) + + + + + + | Component | Value | Ref Range | Performed | Pathologist | | | | | At | Signature | + + + + + + | PATHOLOGY | SOURCE OF SPECIMEN:A | | [facility] | | | CONSULT - | Multiple specimen A to D | | DEPARTMENT | | | SLIDES | Materials | | OF | | | | Received:Referring | | PATHOLOGY | | | | Institution: [place] [facility] | | | | | | [facility], | | | | | | [place], [place] | | | | | | [id number] Accession | | | | | | Number: [id number] | | | | | | Collection Date: | | | | | | 09/02/2016Sublabeled | | | | | | H&E A to D | | | | | | 4 | | | | | | Final Pathologic | | | | | | Diagnosis:Multiple | | | | | | specimens A to D | | | | | | ([id number]; 09/02/16):Low | | | | | | rectal tumor, biopsy | | | | | | (sublabeled A): - | | | | | | Minute fragment of | | | | | | colonic mucosa with at | | | | | | least low grade | | | | | | dysplasia Top of | | | | | | anal canal, biopsy | | | | | | (sublabeled B): - | | | | | | Anorectal mucosa with no | | | | | | diagnostic abnormality | | | | | | Colon, 35 cm from | | | | | | colostomy, biopsy | | | | | | (sublabeled C): - | | | | | | Tubular adenoma | | | | | | Colon, 40 cm rom | | | | | | colostomy, biopsy | | | | | | (sublabeled D): - | | | | | | Colonic mucosa with no | | | | | | diagnostic abnormality | | | | | | Comment: Thank you | | | | | | for the opportunity to | | | | | | review this case and we | | | | | | agreewith the original | | | | | | diagnosis. Case | | | | | | seen by:Nataliia Chavira, | | | | | | /Surgical Pathology | | | | | | Kriss Ambrose MD | | | | | | PhD / Pathologist | | | | | | Clinical | | | | | | History:Follow-up | | | | | | colonoscopy My | | | | | | electronic signature | | | | | | indicates that I have | | | | | | personally reviewed | | | | | | alldiagnostic slides, | | | | | | the gross and/or | | | | | | microscopic portion of | | | | | | thisreport and | | | | | | formulated the final | | | | | | diagnosis. | | | | | | Rendering Diagnostician: | | | | | | Mitch Ambrose M.D. | | | | | | Ph.D.PathologistElectron | | | | | | ically Signed 10/06/2016 | | | | | | 1:00PM | | | | + + + + + + + + | Specimen | + + | | + + + + + + + | Performing | Address | City/State/Zipcode | Phone Number | | Organization | | | | + + + + + | [facility][1] | [address] | [place] [address] | | | PATHOLOGY | [address] | | | + + + + + documented in this encounter Visit Diagnoses + + | Diagnosis | + + | Rectal cancer (HCC) - Primary Malignant neoplasm of rectum | + + documented in this encounter"
--- OUTSIDE RECORDS SUMMARY | ~2019-06-01 | XMS | Encounter Summary ---
Demographics + + + | Address | [address] | | | [place] [address] | + + + | Home Phone [...] Team Providers + +------+ + | Care Director Of Corporate Sponsorships Name | Role | Phone | + +------+ + | Kristian Anderson DO | PCP | | + +------+ + Encounter Details +--------+ + + + + | Date | Type | Department | Care Team | Description | +--------+ + + + + | 03/30/ | MyChart | Wound and Ostomy | Delores Avilez, | RE:05-29 Appt | | 2018 | Encounter | Care [address] | RN, CWOCN [address] | | | | [address] | [address] | | | | | [facility] | [place], [place] | | | | | [place] [address] | [address] | | | | | [place], [place] | | | | | | [address] | | | | | | [phone] | | | +--------+ + + + [...] | | 2019 | Visit | | [address] | | | | | | [place]ines [place], | | | | | | [place] [address] | | | | | | [phone] | | | | | | | | +--------+---------+ + + + documented as of this encounter Visit Diagnoses Not on filedocumented in this encounter"
--- OUTSIDE RECORDS SUMMARY | ~2019-06-01 | XMS | Encounter Summary ---
Demographics + + + | Address | [address] | | | [place] [address] | + + + | Home Phone [...] Team Providers + +------+ + | Care Real Estate Appraiser Name | Role | Phone | + [...] | | [address] | [place], | | | | | Mailcode: [place] | [place] [address] | | | | | for Health and | [phone] | | | | | [facility] 2 | | | | | | [place], [place] | | | | | | [address] | | | | | | [phone] | | | +--------+ + + + [...] | | | | | [place], | | | | | | [place] [address] | | | | | | [phone] | | | | | | | | +--------+---------+ + + + documented as of this encounter Visit Diagnoses Not on filedocumented in this encounter"
--- OUTSIDE RECORDS SUMMARY | ~2019-06-01 | XMS | Encounter Summary ---
Demographics + + + | Address | [address] | | | [place] [address] | + + + | Home Phone | | + + + | Preferred Language | Unknown | + + + | Marital Status | Single | + + + | Spiritism Affiliation | NON | + + + [...] Team Providers + +------+ + | Care Eye Dropper Assembler Name | Role | Phone | [...] | | 2018 | | Center at [facility] [address] | [address] | Review | | | | [address] | [place], | | | | | Mailcode: [place] | [place] [address] | | | | | for Health and | [phone] | | | | | [facility] 2 | | | | | | [place], [place] | | | | | | [address] | | | | | | [phone] | | | +--------+ + + + [...] | | | | | [place], | | | | | | [place] [address] | | | | | | [phone] | | | | | | | | +--------+---------+ + + + documented as of this encounter Visit Diagnoses Not on filedocumented in this encounter"
--- OUTSIDE RECORDS SUMMARY | ~2019-06-01 | XMS | Clinical Summary ---
Demographics + + + | Address | [address] | | | [place] [address] | + + + | Home Phone | | + + + | Preferred Language | Unknown | + + + | Marital Status | | + + + | Baptism Affiliation | Unknown | + + + | Race | Unknown | + + + | Ethnic Group | Unknown | + + + Author + + + | Author | Located Within [facility] (Historical as of | | | 03-10-19) | + + + | Organization | Located [facility] (Historical as of | | | 03-10-19) [...] Team Providers + +------+ + | Care Regulatory And Compliance Technician Name | Role | Phone [...] +------+-------+ + | MEDICAID | MEDICA | [id number] | | | [address] | | | [place] | | | | [place] | | | [place] | | | | [address] | + +--------+ +------+-------+ + + +--------+ [...] | | | guerda | | | [address] | [place] [address] | + +--------+ +--------+ + +"
--- OUTSIDE RECORDS SUMMARY | ~2019-06-01 | XMS | Encounter Summary ---
Demographics + + + | Address | [address] | | | [place] [address] | + + + | Home Phone [...] Team Providers + +------+ + | Care Gas Meter Installer Name | Role | Phone | + +------+ + | Kristian Anderson DO | PCP | | + +------+ + Encounter Details +--------+ + + + + | Date | Type | Department | Care Team | Description | +--------+ + + + + | 10/05/ | Abstract | Digestive Health | Ailyn Wolff MD | | | 2017 | | [place] at [facility] [address] | [address] | | | | | [address] | [place], | | | | | Mailcode: [place] | [place] [address] | | | | | [facility] and | [phone] | | | | | [facility], [facility] 2 | | | | | | [place], [place] | | | | | | [address] | | | | | | [phone] | | | +--------+ + + + [...] | | | | | [place], | | | | | | [place] [address] | | | | | | [phone] | | | | | | | | +--------+---------+ + + + documented as of this encounter Visit Diagnoses Not on filedocumented in this encounter"
--- OUTSIDE RECORDS SUMMARY | ~2019-06-01 | XMS | Encounter Summary ---
Demographics + + + | Address | [address] | | | [place] [address] | + + + | Home Phone [...] Team Providers + +------+ + | Care Conditioning Yard Supervisor Name | Role | Phone | [...] | Encounter | Center at [facility] [address] | [address] | | | | | [address] | [place] [facility] | | | | | Mailcode: [place] | [place] [address] | | | | | for Health and | [phone] | | | | | [place] [address] | | | | | | [place], [place] | | | | | | [address] | | | | | | [phone] | | | +--------+ + + + [...] | | | | | [place], | | | | | | [place] [address] | | | | | | [phone] | | | | | | | | +--------+---------+ + + + documented as of this encounter Visit Diagnoses Not on filedocumented in this encounter"
--- OUTSIDE RECORDS SUMMARY | ~2019-06-01 | XMS | Encounter Summary ---
Demographics + + + | Address | [address] | | | [place] [address] | + + + | Home Phone [...] + + + | Author | [facility] | + + + | Organization | [facility] | + + + | Address | Unknown | + + + | Phone | Unavailable | + + + Support + + +---------+ + | Name | Relationship | Address | Phone | + + +---------+ + | Darrius Quintana | ECON | Unknown | | + + +---------+ + Care Team Providers + +------+ + | Care Podiatric Physician Name | Role | Phone | + [...] | | | | CT ABDOMEN | [place], [place] | Mailcode: | | | | | AND PELVIS | [address] | [address] [facility] | | | | | W IV | Phone: | Hospital | | | | | CONTRAST [place] | [phone] | [place], [place] | | | | | CT | Fax: | [address] | | | | | ABDOMEN&PELV | [phone] | Phone: | | | | | IS | | [phone] | | | | | W/CONTRAST | | Fax: | | | | | | | [phone] | +--------+--------+ + + + + Diagnostic Testing (Urgent) +--------+--------+ + + + [...] | | | | MR RECTAL | [place], [place] | Mailcode: | | | | | W/WO [place] | [address] | [address] | | | | | MRI, PELVIS, | Phone: | [place] | | | | | COMBO | [phone] | Research | | | | | | Fax: | Center | | | | | | [phone] | [facility] [place] | | | | | | | [address] | | | | | | | Phone: | | | | | | | [phone] | | | | | | | Fax: | | | | | | | [phone] | +--------+--------+ + + + + Encounter Details +--------+ + + + + | Date | Type | Department | Care Team | Description | +--------+ + + + + | 09/22/ | Neurological Surgeon | Digestive Health | Ailyn Wolff MD | Rectal cancer (HCC) | | 2017 | | [place] at [facility] [address] | [address] | (Primary Dx) | | | | [address] | [place], | | | | | Mailcode: [place] | [place] [address] | | | | | for [facility] and | [phone] | | | | | [facility], [facility] 2 | | | | | | [place], [place] | | | | | | [address] | | | | | | [phone] | | | +--------+ + + + [...] | | | | | [place], | | | | | | [place] [address] | | | | | | [phone] | | | | | | | | +--------+---------+ + + + documented as of this encounter Results CT ABDOMEN AND PELVIS W IV CONTRAST (10/05/2016 12:14 PM PDT) + + | Specimen | [...] | | + +---------+ + + MR RECTAL W/DORY (10/05/2016 10:16 AM PDT) + + | Specimen | + + | | + + + + + | Narrative | Performed At | + + + | EXAM: MRI Rectum without and with intravenous contrast. HISTORY: | [facility] | | Rectal Cancer. COMPARISON: Outside CT, 07/20/2016. TECHNIQUE: | RADIOLOGY VOICE | | Multiplanar MRI of the pelvis was performed without and with | RECOGNITION | | gadolinium based intravenous contrast. FINDINGS: Rectal Mass: | | | Size: 7.7 x 6.2 cm distal sigmoid and rectal | | | mass with extension through the colonic wall at multiple sites. This | | | lesion is 9.6 cm in length. | | | Appearance: The lesion is circumferential and exhibits | | | multiple exophytic masses extending through the colonic wall at | | | multiple sites (axial oblique image 56, 52, 49, 48, 45). Overall, | | | confluent extension beyond the colonic wall from the 7:00 position to | | | the 1:00 position (axial oblique image 53) is noted over a length of | | | approximately 5.3 cm in craniocaudal length. In addition, an exophytic | | | component arises from the dominant mass into the adjacent sigmoid | | | colon (axial oblique image 57, sagittal 20). | | | Location (from the anal verge): Mid - Distance from the anal | | | verge: 6.4 cm - | | | Distance from anal sphincter: 3.0 cm | | | Relationship to anterior peritoneal reflection: Unable to assess. | | | T stage/Depth of invasion: T4 B. | | | As noted above, significant | | | exophytic portion of the tumor is noted with direct invasion of the | | | adjacent loop of sigmoid colon. No findings to suggest invasion of the | | | other adjacent pelvic organs. Distance to the Mesorectal Fascia | | | (MRF) and Extramural Depth of Invasion (EMD) | | | Shortest distance of tumor border to MRF: 0 | | | Extramural depth of invasion at this level: 3.9 cm (axial oblique | | | image 41). Extramural Vascular Invasion (EMVI): Absent. | | | Mesorectal Lymph Nodes and Tumor Deposits: No obvious adenopathy. | | | Extramesorectal Lymph Nodes: No obvious adenopathy. | | | Other: A surgical drain is in the deep pelvis coursing | | | posterior to the rectum. Right rim-enhancing complex collections | | | representing abscess these unlikely perforation measured to 3.0 x 1.8 | | | cm. IMPRESSION: T4 B. rectal cancer. Bulky, large distal | | | rectosigmoid mass with multiple sites of extension beyond the colonic | | | wall from the 7:00 position to the 1:00 position with direct extension | | | involving an adjacent loop of sigmoid colon. No other pelvic organ | | | involvement. No pelvic or distant adenopathy or vascular invasion. | | | Pararectal rim-enhancing collections with a surgical drain in place | | | consistent with known abscesses. I have personally reviewed the | | | images and, if necessary, edited the report. I agree with the | | | report as now presented. | | + + + + + | Procedure Note | + + | Service Account, Radiant Res In Interface - 10/05/2016 1:50 PM PDT EXAM: MRI Rectum | | without and with intravenous contrast. HISTORY: Rectal Cancer. COMPARISON: Outside CT, | | 07/20/2016. TECHNIQUE: Multiplanar MRI of the pelvis was performed without and with | | gadolinium based intravenous contrast. FINDINGS: Rectal Mass: Size: 7.7 x | | 6.2 cm distal sigmoid and rectal mass with extension through the colonic wall at | | multiple sites. This lesion is 9.6 cm in length. | | Appearance: The lesion is circumferential and exhibits multiple exophytic masses | | extending through the colonic wall at multiple sites (axial oblique image 56, 52, 49, | | 48, 45). Overall, confluent extension beyond the colonic wall from the 7:00 position to | | the 1:00 position (axial oblique image 53) is noted over a length of approximately 5.3 | | cm in craniocaudal length. In addition, an exophytic component arises from the dominant | | mass into the adjacent sigmoid colon (axial oblique image 57, sagittal 20). | | Location (from the anal verge): Mid- Distance from the anal verge: 6.4 cm | | - Distance from anal sphincter: 3.0 cm | | Relationship to anterior peritoneal reflection: Unable to assess. T | | stage/Depth of invasion: T4 B. As noted above, | | significant exophytic portion of the tumor is noted with direct invasion of the adjacent | | loop of sigmoid colon. No findings to suggest invasion of the other adjacent pelvic | | organs. Distance to the Mesorectal Fascia (MRF) and Extramural Depth of Invasion (EMD) | | Shortest distance of tumor border to MRF: 0 Extramural | | depth of invasion at this level: 3.9 cm (axial oblique image 41). Extramural Vascular | | Invasion (EMVI): Absent. Mesorectal Lymph Nodes and Tumor Deposits: No obvious | | adenopathy. Extramesorectal Lymph Nodes: No obvious adenopathy. Other: A | | surgical drain is in the deep pelvis coursing posterior to the rectum. Right | | rim-enhancing complex collections representing abscess these unlikely perforation | | measured to 3.0 x 1.8 cm. IMPRESSION:T4 B. rectal cancer. Bulky, large distal | | rectosigmoid mass with multiple sites of extension beyond the colonic wall from the 7:00 | | position to the 1:00 position with direct extension involving an adjacent loop of | | sigmoid colon. No other pelvic organ involvement. No pelvic or distant adenopathy or | | vascular invasion.Pararectal rim-enhancing collections with a surgical drain in place | | consistent with known abscesses.I have personally reviewed the images and, if necessary, | | edited the report. I agree with the report as now presented. | |Mesorectal Lymph Nodes and Tumor Deposits: No obvious adenopathy. | | | |Extramesorectal Lymph Nodes: No obvious adenopathy. | | | |Other: A surgical drain is in the deep pelvis coursing posterior to the rectum. Right rim-e nhancing complex collections representing abscess these unlikely perforation measured to 3.0 x 1.8 cm. | | | |IMPRESSION: | | | |T4 B. rectal cancer. Bulky, large distal rectosigmoid mass with multiple sites of extension beyond the colonic wall from the 7:00 position to the 1:00 position with direct extension i nvolving an adjacent loop of sigmoid | |colon. No other pelvic organ involvement. No pelvic or distant adenopathy or vascular invas ion. | | | |Pararectal rim-enhancing collections with a surgical drain in place consistent with known a bscesses. | | | | | |I have [...]
--- OUTSIDE RECORDS SUMMARY | ~2019-06-01 | XMS | Encounter Summary ---
Demographics + + + | Address | [address] | | | [place] [address] | + + + | Home Phone | | + + + | Preferred Language | Unknown | + + + | Marital Status | Single | + + + | Mosque Affiliation | NON | + + + [...] Team Providers + +------+ + | Care Board Hammer Operator Name | Role | Phone | [...] | | 2017 | | Center at [facility] [address] | [address] | the thigh); Blood in | | | | [address] | [address] [place], | urine (UTI work up | | | | Mailcode: [place] | [place] [address] | ordered) | | | | for Health and | [phone] | | | | | [facility], [facility] 2 | | | | | | [place], [place] | | | | | | [address] | | | | | | [phone] | | | +--------+ + + + [...] | | | | | | [place] [address] | | | | | | [phone] | | | | | | | | +--------+---------+ + + + documented as of this encounter Visit Diagnoses + + | Diagnosis | + + | Hematuria, unspecified type - Primary | + + documented in this encounter"
--- OUTSIDE RECORDS SUMMARY | ~2019-06-01 | XMS | Clinical Summary ---
Demographics + + + | Address | [address] | | | [place] [address] | + + + | Home Phone [...] Author + + + | Author | [facility] | + + + | Organization | [facility] | + + + | Address | Unknown | + + + | Phone | Unavailable | + + + Support + + +---------+ + | Name | Relationship | Address | Phone | + + +---------+ + | Darrius Quintana | ECON | Unknown | | + + +---------+ + Care Team Providers + +------+ + | Care Hoist Cylinder Loader Name | Role | Phone | + +------+ + | Kristian Anderson DO | PCP | | + +------+ + Source Comments [facility] is fully live on both [facility] and [facility] Allergies + + + + + + [...] | | | e | | | [id number]). | | | | | | | | ointment | | | | | | + + + +---------+------+------+-------+ | Ostomy Supplies | Colostomy | 1 each | 11 | 11/0 | | Activ | | misc | [id number]: CO | | | 20 | | e | | | [id number], Skin prep: | | | 18 | | | | | 3M 3344 (30/mo), Adh | | | | | | | | Rem HO 7760 | | | | | | | | (1box/mo), Rings: HO | | | | | | | | 8805 (10/mo), | | | | | | | | Deodorant: [place] [address]72 | | | | | | | | (60/mo), Pwdr: CT | | | | | | | | [id number] (1oz/mo), | | | | | | | | Belt: Lrg (2/mo) | | | | | | | | and Irrigation [place] | | | | | | | | [id number], Sleeve [place] | | | | | | | | [id number] | | | | | | + [...] Heart Attack | Father | | from [place] at age 52 | + + +------+ [...] | | | | | [place]zy [place], | | | | | | [place] [address] | | | | | | [phone] | | | | | | | [...] | + + + + + | [facility] | [address] | [place] [address] | | | SERVICES, CORE | SUZY [...] | | | | | | | [address] | | + +--------+ +--------+ + +--------+ [...] guerda | | | 8 (Home) | [address] | + +--------+ +--------+ + + Advance [...]
--- OUTSIDE RECORDS SUMMARY | ~2019-06-01 | XMS | Encounter Summary ---
Demographics + + + | Address | [address] | | | [place] [address] | + + + | Home Phone [...] Team Providers + +------+ + | Care Endless Track Vehicle Mechanic Name | Role | Phone | [...] | 2018 | Encounter | Center at [facility] [address] | [address] | | | | | [address] | Amita Hines [place], | | | | | Mailcode: [place] | [place] [address] | | | | | for Health and | [phone] | | | | | [facility], [facility] 2 | | | | | | [place], [place] | | | | | | [address] | | | | | | [phone] | | | +--------+ + + + [...] | | | | | [place], | | | | | | [place] [address] | | | | | | [phone] | | | | | | | | +--------+---------+ + + + documented as of this encounter Visit Diagnoses Not on filedocumented in this encounter"
--- OUTSIDE RECORDS SUMMARY | ~2019-06-01 | XMS | Encounter Summary ---
Demographics + + + | Address | [address] | | | [place] [address] | + + + | Home Phone [...] Team Providers + +------+ + | Care Chief Ii Dispatcher Name | Role | Phone | [...] | | | | Pre-operativ | [address] | | | | | | e | [address] | | | | | | cardiovascul | [place], | | | | | | ar | [place] | | | | | | examination | [address] | | | | | | Tobacco | Phone: | | | | | | abuse | [phone] | | | | | | Dyspnea, | Fax: | | | | | | unspecified | [phone] | | | | | | type [...] | | | | Pre-operativ | [address] | | | | | | e | [address] | | | | | | cardiovascul | [place], | | | | | | ar | [place] | | | | | | examination | [address] | | | | | | Tobacco | Phone: | | | | | | abuse | [phone] | | | | | | Dyspnea, | Fax: | | | | | | unspecified | [phone] | | | | | | type [...] | | | | | | [place] [address] | [address] Floor | | | | | | Phone: | [place], [place] | | | | | | [phone] | [address] | | | | | | Fax: | Phone: | | | | | | [phone] | [phone] | | | | | | | Fax: | | | | | | | [phone] | +--------+--------+ + + + + Encounter Details +--------+---------+ + + + | Date | Type | Department | Care Team | Description | +--------+---------+ + + + | 10/06/ | Office | Cardiology General | Bischof, Brittany | Dyspnea, unspecified | | 2017 | Visit | at [facility] [address] | [address], [address] | type (Primary Dx); | | | | [address] Mailcode: | [address] [place], | Pre-operative | | | | [address] [facility] | [place] [address] | cardiovascular | | | | [facility], | [phone] | examination; Tobacco | | | | | | abuse; Aortic | | | | Floor [place], [place] | | systolic murmur on | | | | [address] | | examination | | | | [phone] | | | +--------+---------+ + + + [...] echo a nd dobutamine stress echo in [place], Call us back if they cannot get these done before 10/18/16 and we can do the tests at [facility].Electronically signed by WEN Gagnon 10/06/2016 8:38 AM [...] stents. He is 64. Her father of [place] at 52. History of Endocarditis or need for Endocarditis Prophylaxis? no History of Phen-Fen exposure? 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 She can walk up two [...] breast Hypertension Mother Heart Attack Father from [place] at age 52 Diabetes Father Heart Attack [...] negative for ischemia. Outside records reviewed from [facility] (in media tab) Cardiac Risk Stratification (based [...] [address] Mailcode: [address] [facility] [place] [address] [phone] signed by Brittany Laboy PA-C at 10/07/2016 [...] | | | | | Amita Hines [place], | | | | | | [place] [address] | | | | | | [phone] | | | | | | | [...] At | + + + | [facility], [facility] | [facility] DEPT OF | | [facility] Adult Echocardiography Laboratory [address] | CARDIOLOGY | | [address], [place] [address] Ph: | | | Pt Name: PAULETTE BYRNES | | | Study Date / Time 10/06/2016 / 11:17:12 AMMRN: [id number] | | | Most recent prior: 10/06/2016Acc #: | | | [id number] No. previous echos: 1DOB: | | | 1960 Age: 55 years Gender: FHeight: 63.0 in | | | BSA: 1.67 n0Zvvmrk: | | | 142 lb Order ID: | | | [id number] medications: None.Indications: Preoperative | | | Evaluation Ultrasonic Tester: Isaiah Min [facility] Referring Provider: Brittany Rojas Location: [facility] Performed: Definity contrast | | | and [...] | | | RNSupervising Physician: Cole Ch[facility]vez [facility] | | | signed by: [id number] Cole Chávez MD (10/06/2016, 1:52:06 | | | PM)REPORT [id number] HOSP=PO REGION=A0 Final | | | | [...] MD | | |Report electronically signed by: [id number] Cole Chávez MD (10/06/2016, 1:52:06 | | |PM) | | |REPORT [id number] HOSP=PO REGION=A0 | | | | | | | | | | | | | | | | | | Final | | + + + + + | Procedure Note | + + | Interface, Cardiology Results - 10/06/2016 1:52 PM [facility] | | [facility] Echocardiography Laboratory [address] [place] [address] | | [place], [place] [address] Pt Name: PAULETTE | | BRITTANY BYRNES Study Date / Time 10/06/2016 / 11:17:12 AMMRN: [id number] | | Most recent prior: 10/06/2016Acc #: [id number] No. previous | | echos: 1DOB: 1960 Age: 55 years Gender: FHeight: 63.0 in | | BSA: 1.67 x8Mtpokx: 142 lb Order ID: | | [id number] medications: None.Indications: Preoperative Evaluation Ultrasonic Tester: | | Isaiah Min [facility] Referring Provider: Brittany Rojas Location: [facility] | | Performed: Definity contrast and Dobutamine [...] 5=Aneurysmal Supervising RN: Romelia Otero, RNSupervising Physician: Cloe | | Jose M Chávez electronically signed by: [id number] Cole Chávez MD (10/06/2016, | | 1:52:06 PM)REPORT [id number]=[id number] HOSP=PO REGION=A0 Final | |predicted maximal heart [...] Chávez MD | |Report electronically signed by: [id number] Cole Chávez MD (10/06/2016, 1:52:06 | |PM) | |REPORT [id number] HOSP=PO REGION=A0 | | | | | | | | | | | | Final | + + + + + + + | Performing | Address | City/State/Zipcode | Phone Number | | Organization | | | | + + + + + | [facility] DEPT OF | [address] | [place], [place] | | | CARDIOLOGY | [address] | [address] | | + + + + + [...] formed At | + +---- + | [facility] | [facility] DEPT OF | | [facility] Adult Echocardiography Laboratory [address] | CAR DIOLOGY | | [place], [place] [address] Ph: | | | Pt Name: PAULETTE BYRNES | | | Study Date/Time 10/06/2016 / 8:59:07 AMN: [id number] | | | Most recent prior: -[facility] #: [id number] | | | No. previous echos: 0DOB: 1960 55 years Heart Rate: | | | 78 bpmHeight: 63.0 in Blood | | | Pressure: 131/69 mm/HgWeight: 142.0 lb | | | Gender: FBSA: 1.67 m2 | | | Order ID: [id number] Ultrasonic Tester: Brandon Hwang MA, | | | [facility] Referring Provider: Brittany Rojas Location: | | [...] Report electronically signed by: | | | [id number] Cole Chávez MD (10/06/2016, 10:21:24 AM)REPORT | | | [id number]=[id number] HOSP=PO REGION=A0 Final | | | cm [...] | | | |Report electronically signed by: [id number] Cole Chávez MD (10/06/2016, 10:21:24 | | |AM) | | |REPORT [id number] HOSP=PO REGION=A0 | | | | | | | | | | | | Final | | + +---- + + + | Procedure Note | + + | Interface, Cardiology Results - 10/06/2016 10:21 AM PDT [facility] | | [facility] Echocardiography Laboratory [address] [place] [address] | | [place], [place] [address] Pt Name: PAULETTE | | BRITTANY BYRNES Study Date/Time 10/06/2016 / 8:59:07 AMMRN: [id number] | | Most recent prior: -[facility] #: [id number] No. previous echos: 0DOB: | | 1960 55 years Heart Rate: 78 bpmHeight: 63.0 in Blood | | Pressure: 131/69 mm/HgWeight: 142.0 lb Gender: FBSA: | | 1.67 m2 Order ID: [id number] Ultrasonic Tester: Brandon Hwang MA, | | RDCSReferring Provider: Brittany Rojas Location: [facility] Performed: | | 2D, Color flow, Spectral [...] | indexed values Report electronically signed by: [id number] Cole Chávez MD | | (10/06/2016, 10:21:24 AM)REPORT CDXZ=[id number] HOSP= REGION=A0 Final | |ventricular ejection fraction [...] | | | |Report electronically signed by: [id number] Cole Chávez MD (10/06/2016, 10:21:24 | |AM) | |REPORT [id number]=[id number] HOSP=PO REGION=A0 | | | | | | | | Final | + + + + + + + | Performing | Address | City/State/Zipcode | Phone Number | | Organization | | | | + + + + + | [facility] | [address] | [place], [place] | | | CARDIOLOGY | [address] | [address] | | + + + + + [...] + + | [facility] | [address] | [place], [place] | | | CARDIOLOGY | [address] | [address] | | + + + + + [...]
--- OUTSIDE RECORDS SUMMARY | ~2019-06-01 | XMS | Encounter Summary ---
Demographics + + + | Address | [address] | | | [place] [address] | + + + | Home Phone [...] Team Providers + +------+ + | Care Car Whacker Name | Role | Phone | + [...] | | 2017 | | Center at [facility] [address] | [address] | Review | | | | [address] | Amita H[place], | | | | | Mailcode: [place] | [place] [address] | | | | | for Health and | [phone] | | | | | [facility] [address] | | | | | | [place], [place] | | | | | | [address] | | | | | | [phone] | | | +--------+ + + + [...] | | | | Amita H[place], | | | | | | [place] [address] | | | | | | [phone] | | | | | | | | +--------+---------+ + + + documented as of this encounter Visit Diagnoses Not on filedocumented in this encounter"
--- OUTSIDE RECORDS SUMMARY | ~2019-06-01 | XMS | Encounter Summary ---
Demographics + + + | Address | [address] | | | [place] [address] | + + + | Home Phone [...] Team Providers + +------+ + | Care Economic Research Analyst Name | Role | Phone | [...] + + | 06/30/ | Hospital | [facility] [address] | Ailyn Wolff MD | | | 2017 - | Encounter | [address] | [address] | | | | | [id number] [facility] | Suzy H[place], | | | 07/05/ | | [facility], | [place] [address] | | | 2016 | | [place] [address] | [phone] | | | | | [phone] | | | +--------+ + + + [...] might be different fro m the original. [facility] Discharge Summary Green Service Admit Date: [...] posterior vaginal wall. 5. Placement of a 19-Czech Albert drain through the right lower quadrant [...] narcotic pain medications, please call the clinic ([phone] ) by 2 pm on for any [...] hours by calling the surgery office at [phone]. After hours, weekends and holidays, you may call the hospital grinder set up operator thread at [phone] and have the part time receptionist Green Team for general surgery paged. Constipation: [...] your instructions. Acetaminophen (Tylenol): You may use fpzb-lru-lvaohgt (OTC) acetaminophen for milder pain. Do not [...] medications with Hydrocodone such as Vicodin or [place]. It is important to keep track of [...] Phone Center 07/27/2017 3:40 PM Ailyn Wol[facility] 6th Floor [phone] [facility] Schedule the following appointment(s) when you get [...] to discharge) Natalie Poon MD Surgery, PGY1 [facility] Associated attestation - Ailyn Wolff MD [...] | | 18 | | | | [id number], Skin prep: | | | | | | | 3M 3344 (30/mo), Adh | | | | | | | Rem HO 7760 | | | | | | | (1box/mo), Rings: HO | | | | | | | 8805 (10/mo), | | | | | | | [place] [address] | | | | | | | (60/mo), Pwdr: CT | | | | | | | 248790 (1oz/mo), | | | | | | | Belt: Lrg (2/mo) | | | | | | | and Irrigation CO | | | | | | | 339643, Sleeve CO | | | | | | | [id number] | | | | | + + [...] 5 Attending Physician: Ailyn Wolff MD Patient: PAULETTE BYRNES [id number] 24H events/Subjective: Epidural removed yesterday, pain controlled. [...] new Pathology 06/30/17: pending Assessment and Plan: Paulette Byrnes is a 56 y.o. Female with [...] Tim Davila MD General Surgery, PGY-1 Pager: [phone] Associated attestation - Ailyn Wolff MD - [...] BLOCK PROGRESS NOTE 07/04/2017 Author: Andree English CRANE OPERATOR CAB Epidural day # 4 POD# 4. Status [...] Andree English NP Adult Pain Service Pager [phone] Team Pager [phone] Tim See MD - 5:31 AM PST Green Surgery Progress Note Hospital Day: 4 Attending Physician: Ailyn Wolff MD Patient: PAULETTE BYRNES [id number] 24H events/Subjective: Epidural still functioning, removed later [...] new Pathology 06/30/17: pending Assessment and Plan: Paulette Byrnes is a 56 y.o. Female with [...] Tim Davila MD General Surgery, PGY-1 Pager: [phone] Associated attestation - Ailyn Wolff MD - [...] 50 mL/hr intravenous CONTINUOUS 50 mL/hr (07/03/17 9415) ropivacaine 0.1 %-HYDROmorphone 10 mcg/mL epidural infusion [...] Non-tender Insertion site exposed? No Assessment: Ms. Paulette Byrnes is a 56-year-old female, with MRI-proven [...] full diet Alta Woods MD Team Pager [phone] signed by Alta Woods MD at 07/03/2017 [...] Non-tender Insertion site exposed? No Assessment: Ms. Paulette Byrnes is a 56-year-old female, with MRI-proven [...] this patient. Alta Woods MD Team Pager [phone] signed by Alta Woods MD at 07/02/2017 [...] Non-tender Insertion site exposed? No Assessment: Ms. Paulette Byrnes is a 56-year-old female, with MRI-proven [...] [place] [phone] with questions. Dorene Carter (Mr.) MSN, ACNP- Nurse Practitioner [facility] [address] [place] [address] Vicki Erwin M D - 07/01/2017 6:04 AM PSTAPS brief note: Evaluated epidural at bedside. Catheter intact h/e filter broken resulting in leak. Replace d filtered and resumed epidural infusion. Vicki Emanuel MD APS pg [phone] signed by Vicki Emanuel MD at 07/10/2017 3:36 PM PSTHasl Natalie mckeon MD - 07/01/2017 5:36 AM PST Green Surgery Progress Note Hospital Day: 1 Attending Physician: Ailyn Wolff MD Patient: PAULETTE BYRNES [id number] 24H events/Subjective: Pt comfortable in bed this [...] 07/01/17 0659 07/01/17699 - 07/02/17 0659 Shift 7832-1283 7371-3539 7287-1949 24 Hour Total 3140-1445 2987-8667 5404-1302 24 Hour Tot al I N T [...] 318 Pathology 06/30/17: pending Assessment and Plan: Paulette Byrnes is a 56 y.o. Female with [...] Poon MD PGY-1 Department of General Surgery [id number] Ivette Shannon MD - 06/30/2017 11:02 PM PST The Department of Otolaryngology Postoperative Check Author: Ivette Jade MD Attending Physician: Ailyn Wolff MD 06/30/2017, 11:02 PM ID/CC: Paulette Byrnes is a 56 y.o. year old [...] in place are c/d/i Drain: R abdomen albert, holding suction with ss output, ostomy pink and well perfused, LL p enrose Extremities: Warm and well perfused, no peripheral edema ASSESSMENT AND PLAN: This is Paulette Byrnes, a 56 y.o. F, with a [...] Jade MD Otolaryngology-Head & Neck Surgery PGY-1 [id number] documented in this encount er Plan of Treatment +--------+---------+ + + + | Date | Type | Specialty | Care Team | Description | +--------+---------+ + + + | 06/18/ | Office | Surgery | Ailyn Wolff MD | | | 2019 | Visit | | [address] | | | | | | [place], | | | | | | [place] [address] | | | | | | [phone] | | | | | | | [...] CHG), | e | 10:19 AM | ([facility]) | procedure are in the | | [...] PLACEMENT | ve | 8:03 AM | ([facility]) | | | | Surgic | PST [...] + + | Performing | Address | City/State[facility] | Phone Number | | Organization | | | | + + + + + | [facility] | [address] | [place], [place] | | | [facility] OF [facility] | [address] | [address] | | | TESTS | | | [...] | [facility] | [address] | [place], [place] | | | [facility] OF [place] | [facility] | [address] | | | TESTS | | | [...] (H) | 70 - 99 mg/dL | [facility] - | | | GLUCOSE, | | [...] + | [facility] | [address] | [place], [place] | | | [facility] | [address] | [address] | | | TESTS | | | [...] | | | POC | | | VIVINA SCHM[facility]T | | | | | | [...] + | [facility] | [address] | [place], [place] | | | [facility] OF [place] | [address] | [address] | | | TESTS | | | [...] | [facility] | [address] | [place], [place] | | | [facility] OF [place] | [facility] | [address] | | | TESTS | | | [...] (H) | 70 - 99 mg/dL | [facility] - | | | GLUCOSE, | | [...] + | [facility] | [address] | [place], [place] | | | [facility] | [address] | [address] | | | TESTS | | | [...] + + | Performing | Address | City/State/[facility] | Phone Number | | Organization | | | | + + + + + | [facility] | [address] | [place], [place] | | | [facility] OF [place] | [facility] | [address] | | | TESTS | | | [...] | [facility] | [address] | [place], [place] | | | [facility] OF CARE | [facility] | [address] | | | TESTS | | | [...] (H) | 70 - 99 mg/dL | [facility] - | | | GLUCOSE, | | [...] | [facility] | [address] | [place], [place] | | | [facility] | [address] | [address] | | | TESTS | | | [...] + | [facility] | [address] | [place], [place] | | | [facility] OF [place] | [facility] | [address] | | | TESTS | | | [...] - [facility] | [address] | [place], [place] | | | [facility] OF CARE | [facility] | [address] | | | TESTS | | | [...] (L) | 70 - 99 mg/dL | [facility] - | | | GLUCOSE, | | [...] | [facility] | [address] | [place], [place] | | | [facility] OF CARE | [address] | [address] | | | TESTS | | | [...] + | [facility] | [address] | [place], [place] | | | [facility] OF CARE | [address] | [address] | | | TESTS | | | [...] | [facility] | [address] | [place], [place] | | | [facility] OF [facility]ARE | [facility] | [address] | | | TESTS | | | [...] + + + | [facility] | [address] | [place], [place] | | | [facility] OF [facility] | [address] | [address] | | | TESTS | | | [...] | [facility] | [address] | [place], [place] | | | V[facility] OF CARE | [address] | [address] | | | TESTS | | | [...] | | POC | | | VIVIAN SCHMDIT | | | | | | OF [...] + | [facility] | [address] | [place], [place] | | | [facility] | [address] | [address] | | | TESTS | | | [...] | [facility] | [address] | [place], [place] | | | [facility] OF CARE | [address] | [address] | | | TESTS | | | [...] + | [facility] | [address] | [place], [place] | | | [facility] OF [place] | [facility] | [address] | | | TESTS | | | [...] - [facility] | [address] | [place], [place] | | | [facility] OF CARE | [facility] | [address] | | | TESTS | | | [...] (H) | 70 - 99 mg/dL | [facility] - | | | GLUCOSE, | | [...] | [facility] | [address] | [place], [place] | | | [facility] | [address] | [address] | | | TESTS | | | [...] + | [facility] | [address] | [place], [place] | | | [facility] [place] | [facility] | [address] | | | TESTS | | | [...] [facility] | [address] | [place], [place] | | | [facility] OF [place] | [facility] | [address] | | | TESTS | | | [...] (H) | 70 - 99 mg/dL | [facility] - | | | GLUCOSE, | | [...] | [facility] | [address] | [place], [place] | | | [facility] OF CARE | [address] | [address] | | | TESTS | | | [...] + | [facility] | [address] | [place], [place] | | | [facility] OF [place] | [facility] | [address] | | | TESTS | | | [...] | + + + + + | [facility] | [address] | [place] [address] | | | SERVICES, CORE | [address] [...] [facility] | [address] | [place] [address] | | | SERVICES, CORE | [address]ARK [...] | + + + + + | [facility] | [address] | [place] [address] | | | SERVICES, CORE | SUZY [...] | | | LABORATORY | | | [facility] | | | SERVICES, | | | [...] | + + + + + | [facility] | [address] | [place] [address] | | | SERVICES, CORE | SUZY [...] (H) | 70 - 99 mg/dL | [facility] - | | | GLUCOSE, | | [...] + + + | [facility] | [address] | [place], [place] | | | [facility] | [address] | [address] | | | TESTS | | | [...] | [facility] | [address] | [place], [place] | | | [facility] | [address] | [address] | | | TESTS | | | [...] + | [facility] | [address] | [place], [place] | | | [facility] | [address] | [address] | | | TESTS | | | [...] + + + | [facility] | [address] | [place], [place] | | | [facility] [facility] OF [facility] | [address] | [address] | | | TESTS | | | [...] | [facility] | [address] | [place], [place] | | | [facility] | [facility] | [address] | | | TESTS | | | [...] [facility] | [address] | [place] [address] | | | SERVICES, CAR | [address] | | | + + + + + OPERATION RECORD (06/30/2017 7:26 PM PST) + + | Procedure Note | + + | Ailyn Wolff MD - 06/30/2017 7:26 PM PST Date of Service: 06/30/2017 Attending | | Surgeon: Ailyn Wolff MD It Professional(s): Sae Slater MD | | Donna Gonzalez [...] resection with primary anastomosis.8. Placement of a 19-Czech Albert drain through the | | right lower quadrant wall into the presacral space.9. 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 Placement of anthony drain into former rectocutaneous | | [id number]. Cystoscopy and bilateral ureteral stent placement with [...] left pelvic abscess with a #10 flat Albert drain, placement of | | a Prolene [...] anal verge. I presented her at the [facility] Multidisciplinary GI Oncology | | conference on [...] fistula tract. We performed a small bowel asfq-va-sdat | | stapled anastomosis. Note, the abscess [...] left the colostomy where it was. A Albert drain was left in the | | [...] closed the mesentery with a 3-0 Polysorb eubnqf-hj-zcdmj suture. The anastomosis | | was widely [...] the external sphincter with interrupted 0 Polysorb esohcv-dn-bokgq sutures. We closed | | the deep [...] #1 Maxon sutures x2. We placed a 19-Czech Albert | | drain through the right lower [...] | | 06/30/2017 17:03:37DT: 06/30/2017 19:26:50Job #: [id number] | | | | /[id number] | + + CAPILLARY BLOOD GLUCOSE (NO [...] + | [facility] | [address] | [place], [place] | | | [facility] | [address] | [address] | | | TESTS | | | [...] | [facility] | [address] | [place], [place] | | | [facility] OF CARE | [address] | [address] | | | TESTS | | | [...] + | [facility] | [address] | [place], [place] | | | [facility] OF CARE | [address] | [address] | | | TESTS | | | | + + + + + PROCEDURE NOTE (06/30/2017 5:14 PM PST) + + | Procedure Note | + + | Sae Slater MD - 06/30/2017 5:14 PM PST BRIEF OPERATIVE NOTEProcedure Date: | | 06/30/2017Author: Sae Slater [facility] Physician: Dr. Ailyn Suhts: Sae | | MD Nohemy, [id number] Gonzalez MD, [id number] Diagnosis: rectal cancerPostoperative | | Diagnosis: sameProcedure [...] | small bowel fistula tract, small bowelDrains: Albert 19 Fr in pelvis Disposition: PACU | | then acute care Castillo: Remove POD #2 if urine clear Diet: clears DVT prophylaxis: | | contraindicated until POD#1 PM Antibiotic Plan: None Glycemic control: SQ sliding scale | | Dressing care: MD to remove on POD # 2 Activity restrictions: HOB > 30 degrees and | | Abdominal precautionsInitial surgical contact: Green chemist intern. Sae Slater MDGeneral | | Surgery, [id number] | |2. En bloc resection of rectum, [...] tract, small bowel | | | |Drains: Albert 19 Fr in pelvis | | | [...] | | | |Initial surgical contact: Green chemist intern. | | | | | |Sae Slater MD | |General Surgery, R5 | |Pager [phone] | + + PROCEDURE NOTE (06/30/2017 2:44 [...] c/o | | flank pain). Delilah Calvert [id number] of Urology | | | |Indications: 56 [...] | | | |Delilah Vale | |Pager [phone] | |PGY-5 | |Department of Urology | [...] + + | [facility] | [address] | [place], [place] | | | [facility] | [address] | [address] | | | TESTS | | | [...] placementSURGEON: Juan Luis, | | MD Princess DRAIN LAYER: Natalie Poon MDANESTHESIA: General. ESTIMATED BLOOD LOSS: [...] usual | | sterile fashion. A 21 macedonian cystoscope was inserted into the urethra atraumatically. [...] Cleve PGY - 1Department of Urology PGR [phone] | |The patient was brought to the [...] the usual sterile | |fashion. A 21 macedonian cystoscope was inserted into the urethra atraumatically. [...] was then turned back over to the [facility] surgical team for their portion of the procedure. Dr. Sánchez was present and directed t he entirety of the case. | | | |The attending of record is Juan Luis Sánchez | | | | | |Natalie Poon MD | |PGY - 1 | |Department of Urology | |PGR [phone] | + + ABG-FULL ABL, POC (06/30/2017 [...] | | | POC | | | [facility] | | | | | | [...] | [facility] | [address] | [place], [place] | | | [facility] | [facility] | [address] | | | TESTS | | | [...] + | [facility] | [address] | [place], [place] | | | [facility] | [address] | [address] | | | TESTS | | | [...] + + + | [facility] | [address] | [place], [place] | | | [place] [facility] OF [facility] | [address] | [address] | | | TESTS | | | [...] | | | | | | (pT): uH1Huwtdxyk Lymph | | | | | | Nodes (pN): | | | | | | lV1Wmiwwd of regional | | | | | [...] | | | | | | record #[id number]. | | | | | | A: [...] | | | | | | diameter. Account Receivable Clerk | | | | | | sections [...] identified. | | | | | | Account Receivable Clerk sections | | | | | | [...] additional | | | | | | cash applications representative sections | | | | | [...] adipose | | | | | | hrveeyV98, anal | | | | | | [...] | | | | | remnantF1 and L0lluex | | | | | | bowel [...] | + + + + + | [facility] | [address] | [place] [address] | | | PATHOLOGY | [address] [...] PST | | | | | on [facility] 06/30/17 at 1845, Until | | [...] AM PST | | | | | Marlyn 06/30/17 at 1400, Until Fri | | [...]
--- OUTSIDE RECORDS SUMMARY | ~2019-06-01 | XMS | Encounter Summary ---
Demographics + + + | Address | [address] | | | [place] [address] | + + + | Home Phone [...] Team Providers + +------+ + | Care Saw Edge Fuser Circular Name | Role | Phone | + [...] | 2017 | Encounter | Center at [facility] [address] | [address] | | | | | [address] | [place], | | | | | Mailcode: [place] | [place] [address] | | | | | for Health and | [phone] | | | | | [facility] [address] | | | | | | [place], [place] | | | | | | [address] | | | | | | [phone] | | | +--------+ + + + [...] | | | | | | [place] [address] | | | | | | [phone] | | | | | | | | +--------+---------+ + + + documented as of this encounter Visit Diagnoses Not on filedocumented in this encounter"
--- OUTSIDE RECORDS SUMMARY | ~2019-06-01 | XMS | Encounter Summary ---
Demographics + + + | Address | [address] | | | [place] [address] | + + + | Home Phone [...] Team Providers + +------+ + | Care Interior Assemblies Developer Prover Name | Role | Phone | + [...] Description | +--------+---------+ + + + | 06/30/ | Surgery | 6A Intra Op [facility] | Ailyn Wolff MD | LOW ANTERIOR | | 2017 | | [facility] | [address] [facility] | RESECTION, POSTERIOR | | | | Admitting Desk | [place], | VAGINECTOMY, | | | | Located on the | [place] [address] | ILEOSTOMY, POSSIBLE | | | | floor [address] [facility] | [phone] | ABDOMINOPERINEAL | | | | [address] | | RESECTION Path: | | | | [place], [place] | | Stanx2 FSx3 Freshx1 | | | | [address] | | | +--------+---------+ + + + [...] might be different fro m the original. [facility] Discharge Summary Green Service Admit Date: [...] posterior vaginal wall. 5. Placement of a 19-Faroese Albert drain through the right lower quadrant [...] narcotic pain medications, please call the clinic ([phone] ) by 2 pm on for any [...] hours by calling the surgery office at [phone]. After hours, weekends and holidays, you may call the hospital well drill operator helper cable tool at [phone] and have the instrument and controls technician Green Team for general surgery paged. Constipation: [...] your instructions. Acetaminophen (Tylenol): You may use qryg-wdd-ytepmuo (OTC) acetaminophen for milder pain. Do not [...] medications with Hydrocodone such as Vicodin or Coral. It is important to keep track of [...] Phone Center 07/27/2017 3:40 PM Ailyn Wolff Digestive [facility] Center at [facility] 6th Floor [phone] [facility] Schedule the following appointment(s) when you get [...] to discharge) Natalie Poon MD Surgery, PGY1 [facility] Associated attestation - Ailyn Wolff MD - [...] through Care Everywhere.Bowel Resection : Open: Post-op (Pashto)Post-op Infection (Pashto)Ureteral Stent Placement: Post-op ([facility])documented in this encounter Medications at Time of Discharge + + + +---------+ + + | Medication | Sig | Dispensed | Refills | Start | End Date | | | | | | Date | | + + + +---------+ + + | acetaminophen 500 | Take 2 tablets by | | 0 | //20 | | | mg oral | mouth [...] | | 18 | | | | [id number], Skin prep: | | | | | | | 3M 3344 (30/mo), Adh | | | | | | | Rem HO 7760 | | | | | | | (1box/mo), Rings: HO | | | | | | | 8805 (10/mo), | | | | | | | [place] [address] | | | | | | | (60/mo), Pwdr: CT | | | | | | | 607308 (1oz/mo), | | | | | | | Belt: Lrg (2/mo) | | | | | | | and Irrigation CO | | | | | | | 003393, Sleeve [place] | | | | | | | 795151 | | | | | + + [...] note might be different from e original. Green Surgery Progress Note Hospital Day: 5 Attending Physician: Ailyn Wolff MD Patient: PAULETTE BYRNES [id number] 24H events/Subjective: Epidural removed yesterday, pain controlled. [...] of drainage, ostomy pink, appliance with stool. Girard in place at tractotomy site. Extremities: WWP, [...] Tim Davila MD General Surgery, PGY-1 Pager: [phone] Associated attestation - Ailyn Wolff MD - [...] BLOCK PROGRESS NOTE 07/04/2017 Author: Andree English LEASING AGENT Epidural day # 4 POD# 4. Status [...] Andree English NP Adult Pain Service Pager [phone] Team Pager [phone] Tim See MD - 5:31 AM PST Green Surgery Progress Note Hospital Day: 4 Attending Physician: Ailyn Wolff MD Patient: PAULETTE BYRNES [id number] 24H events/Subjective: Epidural still functioning, removed later [...] Tim Davila MD General Surgery, PGY-1 Pager: [phone] Associated attestation - Ailyn Wolff MD - [...] 50 mL/hr intravenous CONTINUOUS 50 mL/hr (07/03/17 8185) ropivacaine 0.1 %-HYDROmorphone 10 mcg/mL epidural infusion [...] full diet Alta Woods MD Team Pager [phone] signed by Alta Woods MD at 07/03/2017 [...] this patient. Alta Woods MD Team Pager [phone] signed by Alta Woods MD at 07/02/2017 [...] 4/10. Specific activitie s that exacerbate Ms. Byrnes's [...] [place]. [place] [phone] with questions. Dorene Carter () MSN, ACNP- Nurse Practitioner [facility] [address] [place] [address] Vicki Erwin M D - 07/01/2017 6:04 AM PSTAPS brief note: Evaluated epidural at bedside. Catheter intact h/e filter broken resulting in leak. Replace d filtered and resumed epidural infusion. Vicki Emanuel MD APS pg [phone] signed by Vicki Emanuel MD at 07/10/2017 3:36 PM PSTHasl Natalie mckeon MD - 07/01/2017 5:36 AM PST Green Surgery Progress Note Hospital Day: 1 Attending Physician: Ailyn Wolff MD Patient: PAULETTE BYRNES [id number] 24H events/Subjective: Pt comfortable in bed this [...] % Max: 100 % Date 06/30/17699 - 07/01/1759 07/01/17699 - 07/02/17 0659 Shift 1723-9475 3738-2234 9400-0010 24 Hour Total 5976-0542 8243-0567 9816-1589 24 Hour Tot al I N T [...] Poon MD PGY-1 Department of General Surgery [id number] Ivette Shannon MD - 06/30/2017 11:02 PM [...] Jade MD Otolaryngology-Head & Neck Surgery PGY-1 [id number] documented in this encount er Plan of Treatment +--------+---------+ + + + | Date | Type | Specialty | Care Team | Description | +--------+---------+ + + + | 06/18/ | Office | Surgery | Ailyn Wolff MD | | | 2019 | Visit | | [address] | | | | | | [place], | | | | | | [place] [address] | | | | | | [phone] | | | | | | | [...] e | 10:19 AM | ([facility]) | procedure are in the [...] ve | 8:03 AM | ([facility]) | | | | Surgic [...] [place] | [address] | [place], [place] | | | [facility] CARE | [address] | [address] | | | TESTS | | | [...] [place]QUAM | [address] | [place], [place] | | | [facility]ARE | [address] | [address] | | | TESTS | | | [...] BALDWIN | [address] | [place], [place] | | | [facility]ARE | [address] | [address] | | | TESTS | | | [...] MARCIALAM | [address] | [place], [place] | | | [facility] | [address] | [address] | | | TESTS | | | [...] [place]AM | [address] | [place], [place] | | | [place] [facility] CARE | [address] | [address] | | | TESTS | | | [...] BAL[place]IN | [address] | [place], [place] | | | [facility] | [address] | [address] | | | TESTS | | | [...] [place]AM | [address] | [place], [place] | | | [facility]ARE | [address] | [address] | | | TESTS | | | [...] + | [facility] | [address] | [place], [place] | | | [place] [facility]ARE | [address] | [address] | | | TESTS | | | [...] (H) | 70 - 99 mg/dL | [facility] - | | | GLUCOSE, | | [...] + + + + + | [facility] | [address] | [place], [place] | | | [facility] | [address] | [address] | | | TESTS | | | [...] [place]AM | [address] | [place], [place] | | | [facility] OF [facility] [place] | [address] | [address] | | | TESTS | | | [...] MARCIALAM | [address] | [place], [place] | | | [facility]ARE | [address] | [address] | | | TESTS | | | [...] (L) | 70 - 99 mg/dL | [facility] - | | | GLUCOSE, | | [...] BALDWIN | [address] | [place], [place] | | | [facility]ARE | [address] | [address] | | | TESTS | | | [...] NICOLASA | [address] | [place], [place] | | | [facility] OF [place] | [address] | [address] | | | TESTS | | | [...] + | [facility] - [facility] | [address] | [place], [place] | | | [facility]ARE | [facility] | [address] | | | TESTS | | | [...] (L) | 70 - 99 mg/dL | [facility] [...] BALDWIN | [address] | [place], [place] | | | [facility] OF [place] | [facility] | [address] | | | TESTS | | | [...] | [facility] | [address] | [place], [place] | | | [place] [facility] | [address] | [address] | | | TESTS | | | [...] + + + | [facility] [place] | [address] | [place], [place] | | | [place] [facility] | [address] | [address] | | | TESTS | | | [...] MARQUAM | [address] | [place], [place] | | | [place] [facility]ARE | [facility] | [address] | | | TESTS | | | [...] [place]QUAM | [address] | [place], [place] | | | [facility] OF [place] | [address] | [address] | | | TESTS | | | [...] MARCIALAM | [address] | [place], [place] | | | [facility]ARE | [address] | [address] | | | TESTS | | | [...] BALDWIN | [address] | [place], [place] | | | [facility] | [address] | [address] | | | TESTS | | | [...] MARQUAM | [address] | [place], [place] | | | [facility] OF [place] | [address] | [address] | | | TESTS | | | | + + + + + CAPILLARY BLOOD GLUCOSE (NO CHG), POC (07/01/2017 7:58 AM PST) + +-------+ [...] NICOLASA | [address] | [place], [place] | | | [place] [facility]ARE | [facility] | [address] | | | TESTS | | | [...] (H) | 70 - 99 mg/dL | [facility] - | | | GLUCOSE, | | [...] BALDWIN | [address] | [place], [place] | | | [facility] | [facility] | [address] | | | TESTS | | | [...] MARQUAM | [address] | [place], [place] | | | [facility] OF [place] | [address] | [address] | | | TESTS | | | [...] | + + + + + | [employer] | [address] | [place] [address] | | | SERVICES, CORE | SUZY [...] [facility] | [address] | [place] [address] | | | SERVICES, CORE | [address]ARK [...] | | | LABORATORY | | | CAR TELLO | + + + + + + + + | Performing | Address | City/State/Zipcode | Phone Number | | Organization | | | | + + + + + | [facility] | [address] | [place] [address] | | | SERVICES, CORE | SUZY [...] | | | LABORATORY | | | VIETNAMESE | | | SERVICES, | | | [...] | Adult glucose reference range change effective 7-12-17. GFR is | [facility] | | estimated [...] | + + + + + | [facility] | [address] | [place] [address] | | | SERVICES, CORE | SUZY [...] (H) | 70 - 99 mg/dL | [facility] - | | | GLUCOSE, | | [...] NICOLASA | [address] | [place], [place] | | | [facility] OF [place] | [facility] | [address] | | | TESTS | | | | + + + + + CAPILLARY BLOOD GLUCOSE (NO CHG), POC (07/01/2017 12:06 AM [facility]) + +---------+ + + + | Component [...] MARCIALAM | [address] | [place], [place] | | | [facility] | [facility] | [address] | | | TESTS | | | [...] (H) | 70 - 99 mg/dL | [facility] - | | | GLUCOSE, | | [...] NICOLASA | [address] | [place], [place] | | | [place] [facility] | [address] | [address] | | | TESTS | | | [...] NICOLASA | [address] | [place], [place] | | | [facility] OF [place] | [facility] | [address] | | | TESTS | | | [...] MARCIALAM | [address] | [place], [place] | | | [place] [facility]ARE | [facility] | [address] | | | TESTS | | | [...] | Adult glucose reference range change effective 02-02-17. On | [facility] | | arrival to unit | LABORATORY | | | CAR TELLO | + + + + + + + + | Performing | Address | City/State/Zipcode | Phone Number | | Organization | | | | + + + + + | [facility] | [address] | [place] [address] | | | SERVICES, CORE | [address] | | | + + + + + OPERATION RECORD (06/30/2017 7:26 PM PST) + + | Procedure Note | + + | Ailyn Wolff MD - 06/30/2017 7:26 PM PST Date of Service: 06/30/2017 Attending | | Surgeon: Ailyn Wolff MD Premium Card Cancellation Clerk(s): Sae Slater MD | | Donna Gonzalez [...] resection with primary anastomosis.8. Placement of a 19-Faroese Albert drain through the | | right lower quadrant wall into the presacral space.9. 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 Placement of anthony drain into former rectocutaneous | | sgeitrp64. Cystoscopy and bilateral ureteral stent placement with [...] anal verge. I presented her at the [facility] Multidisciplinary GI Oncology | | conference on [...] fistula tract. We performed a small bowel mgss-ot-rehl | | stapled anastomosis. Note, the abscess [...] and completed prior to my incision. Dr. Coel Sánchez, Dr. Delilah Chino, and | | [...] closed the mesentery with a 3-0 Polysorb uhvzmz-hb-sdpar suture. The anastomosis | | was widely [...] the external sphincter with interrupted 0 Polysorb wcoote-it-fketw sutures. We closed | | the deep [...] #1 Maxon sutures x2. We placed a 19-Faroese Albert | | drain through the right [...] closure. At that point, I was immediately available.BERNARDO Fuentes/YUED: | | 06/30/2017 17:03:37DT: 06/30/2017 19:26:50Job #: [id number] | | | | /[id number] | + + CAPILLARY BLOOD GLUCOSE (NO [...] [place] | [address] | [place], [place] | | | [facility] OF [place] | [address] | [address] | | | TESTS | | | [...] [place]AM | [address] | [place], [place] | | | [place] [facility]ARE | [address] | [address] | | | TESTS | | | [...] + + + | [facility] | [address] | [place], [place] | | | [facility] | [address] | [address] | | | TESTS | | | | + + + + + PROCEDURE NOTE (06/30/2017 5:14 PM PST) + + | Procedure Note | + + | Sae Slater MD - 06/30/2017 5:14 PM PST BRIEF OPERATIVE NOTEProcedure Date: | | 06/30/2017Author: Sae Slater [facility] Physician: Dr. Ailyn Lowistants: Sae | | MD Nohemy, [id number] Gonzalez MD, [id number] Diagnosis: rectal cancerPostoperative | | Diagnosis: sameProcedure [...] | | Abdominal precautionsInitial surgical contact: Green production intern. Sae Slater MDGeneral | | Surgery, [id number] | |2. En bloc resection of rectum, [...] | | | |Initial surgical contact: Green production intern. | | | | | |Sae Slater MD | |General Surgery, R5 | |Pager [phone] | + + PROCEDURE NOTE (06/30/2017 2:44 [...] or c/o | | flank pain). Delilah ValePasuri [id number] of Urology | | | |Indications: 56 [...] | | | |Delilah Vale | |Pager [phone] | |PGY-5 | |Department of Urology | [...] [place] | [address] | [place], [place] | | | [facility] | [address] | [address] | | | TESTS | | | | + + + + + PROCEDURE NOTE (06/30/2017 12:38 PM PST) + + | Procedure Note | + + | Natalie Poon MD - 06/30/2017 8:43 AM PST DATE OF OPERATION: | | 06/30/2017PREOPERATIVE DIAGNOSES: Rectal cancer POSTOPERATIVE DIAGNOSES: rectal cancer | | OPERATION PERFORMED: 1. Cystoscopy and bilateral ureteral stent placementSURGEON: Juan Luis | | MD Princess ELECTRICAL DESIGN ENGINEER: Natalie Poon MDANESTHESIA: General. ESTIMATED BLOOD LOSS: [...] usual | | sterile fashion. A 21 malaysian cystoscope was inserted into the urethra atraumatically. [...] [place] PGY - 1Department of Urology PGR [id number] | |The patient was brought to the [...] the usual sterile | |fashion. A 21 malaysian cystoscope was inserted into the urethra atraumatically. [...] was then turned back over to the [place] surgical team for their portion of the procedure. Dr. Sánchez was present and directed t he entirety of the case. | | | |The attending of record is Juan Luis Sánchez | | | | | |Natalie Poon MD | |PGY - 1 | |Department of Urology | |PGR 94031 | + + ABG-FULL ABL, POC (06/30/2017 [...] | | | POC | | | [place], POINT | | | | | | [...] | | | | | mmol/L | [place] | | | | | | VIVIAN [...] | | | POC | | | IV[facility]AN SCHMIDT | | | | | | [...] [place] | | | | | | [place], POINT | | | | | | [...] [place] | [address] | [place], [place] | | | [facility] OF [place] | [facility] | [address] | | | TESTS | | | [...] (H) | 70 - 99 mg/dL | [facility] - | | | GLUCOSE, | | [...] N[place] | [address] | [place], [place] | | | [place] [facility] CARE | [address] | [address] | | | TESTS | | | [...] + + | Performing | Address | City/State/Rustcode | Phone Number | | Organization | | | | + + + + + | [facility] | [address] | [place], [place] | | | [facility] OF [place] | [address] | [address] | | | TESTS | | | [...] | | | | | | (pT): uF9Fvfmdabt Lymph | | | | | | Nodes (pN): | | | | | | wZ9Mothry of regional | | | | | [...] | | | | | | record #[id number]. | | | | | | A: [...] | | | | | | diameter. Phonograph Cartridge Assembler | | | | | | sections [...] identified. | | | | | | Phonograph Cartridge Assembler sections | | | | | | [...] additional | | | | | | customer solutions representative sections | | | | | [...] adipose | | | | | | wfpgsxY62, anal | | | | | | [...] | | | | | remnantF1 and K1aarip | | | | | | bowel [...] | + + + + + | [facility] | [address] | [place] [address] | | | PATHOLOGY | [address] [...] | | | HOURS, First dose on Tue06/30/17 | | AM PST | | | [...] PST | | | | | on Marlyn 06/30/17 at 1845, Until | | | [...] PST | | | | +-------+ +-------+---+---------+ + +---+ | | | + +---+ [...] | | | | | 0824, Until Tue07/05/17 at 2232, | | | | | [...] | | | + +---+ + +-------+ +-------+---+---+ | oxyCODONE (immediate release) | Given | 07/05/20 | 10 mg | | | | (ROXICODONE) tablet 5-15 mg 5-15 | | 17 2:25 | | | | | mg, oral, EVERY 3 HOURS | | PM PST | | | | | NEEDED, Starting 07/04/17 at | | | | | | | 1800, Until Tue07/05/17 at 2232, | | | | | [...]
--- OUTSIDE RECORDS SUMMARY | ~2019-06-01 | XMS | Encounter Summary ---
Demographics + + + | Address | [address] | | | [place] [address] | + + + | Home Phone [...] | | 2018 | | Center at [facility] [address] | [address] | Review | | | | [address] | [place], | | | | | Mailcode: [place] | [place] [address] | | | | | for Health and | [phone] | | | | | [facility] 2 | | | | | | [place], [place] | | | | | | [address] | | | | | | [phone] | | | +--------+ + + + [...] | | | | | [place], | | | | | | [place] [address] | | | | | | [phone] | | | | | | | | +--------+---------+ + + + documented as of this encounter Visit Diagnoses Not on filedocumented in this encounter"
--- OUTSIDE RECORDS SUMMARY | ~2019-06-01 | XMS | Encounter Summary ---
Demographics + + + | Address | [address] | | | [place] [address] | + + + | Home Phone [...] Team Providers + +------+ + | Care Electric Meter Repairer Helper Name | Role | Phone | [...] | | | | [facility] | [place], [place] | | | | | [address] [address] | [address] | | | | | [place], [place] | | | | | | [address] | | | | | | [phone] | | | +--------+ + + + [...] | | | | | [place], | | | | | | [place] [address] | | | | | | [phone] | | | | | | | | +--------+---------+ + + + documented as of this encounter Visit Diagnoses Not on filedocumented in this encounter"
--- OUTSIDE RECORDS SUMMARY | ~2019-06-01 | XMS | Encounter Summary ---
Demographics + + + | Address | [address] | | | [place] [address] | + + + | Home Phone [...] Team Providers + +------+ + | Care Fruit Ii Farmworker Name | Role | Phone | + [...] 2017 | | Center at [facility] [address] | [address] | Review | | | | [address] | [place], | | | | | Mailcode: [place] | [place] [address] | | | | | for Health and | [phone] | | | | | [facility] 2 | | | | | | [place], [place] | | | | | | [address] | | | | | | [phone] | | | +--------+ + + + [...] | | | | | [place], | | | | | | [place] [address] | | | | | | [phone] | | | | | | | | +--------+---------+ + + + documented as of this encounter Visit Diagnoses Not on filedocumented in this encounter"
--- OUTSIDE RECORDS SUMMARY | ~2019-06-01 | XMS | Encounter Summary ---
Demographics + + + | Address | [address] | | | [place] [address] | + + + | Home Phone [...] Team Providers + +------+ + | Care Small Parts Shaper Operator Name | Role | Phone | + +------+ + | Kristian Anderson DO | PCP | | + +------+ + Encounter Details +--------+ + + + + | Date | Type | Department | Care Team | Description | +--------+ + + + + | 10/14/ | Telephone | Digestive Health | Ailyn Wolff MD | | | 2017 | | [place] at [facility] [address] | [address] | | | | | [address] | [place], | | | | | Mailcode: [place] | [place] [address] | | | | | for Health and | [phone] | | | | | [address] [address] | | | | | | [place], [place] | | | | | | [address] | | | | | | [phone] | | | +--------+ + + + [...] | | | | | [address] [place], | | | | | | [place] [address] | | | | | | [phone] | | | | | | | | +--------+---------+ + + + documented as of this encounter Visit Diagnoses Not on filedocumented in this encounter"
--- OUTSIDE RECORDS SUMMARY | ~2019-06-01 | XMS | Encounter Summary ---
Demographics + + + | Address | [address] | | | [place] [address] | + + + | Home Phone [...] Team Providers + +------+ + | Care Spring Setter Name | Role | Phone | [...] | | | | Pre-operativ | [address] | | | | | | e | [address] | | | | | | cardiovascul | [place], | | | | | | ar | [place] | | | | | | examination | [address] | | | | | | Tobacco | Phone: | | | | | | abuse | [phone] | | | | | | Dyspnea, | Fax: | | | | | | unspecified | [phone] | | | | | | type [...] | | | | | | at [facility] [address] | | | | | | [address] Mailcode: | | | | | | [facility] | | | | | | [facility], | | | | | | [address] | | | | | | [place], [place] | | | | | | [address] | | | | | | [phone] | | | +--------+ + + + [...] | | 2018 | Visit | | [address] | | | | | | [place], | | | | | | [place] [address] | | | | | | [phone] | | | | | | | [...]
--- OUTSIDE RECORDS SUMMARY | ~2019-06-01 | XMS | Encounter Summary ---
Demographics + + + | Address | [address] | | | [place] [address] | + + + | Home Phone | | + + + | Preferred Language | Unknown | + + + | Marital Status | Single | + + + | Restoration Affiliation | NON | + + + [...] Team Providers + +------+ + | Care Housekeeper Hospital Name | Role | Phone | + [...] | | | | MR RECTAL | [place], [place] | Mailcode: | | | | | [place] | [address] | [address] | | | | | MRI, PELVIS, | Phone: | [facility] | | | | | COMBO | [phone] | Research | | | | | | Fax: | Center | | | | | | [phone] | [place], [place] | | | | | | | [address] | | | | | | | Phone: | | | | | | | [phone] | | | | | | | Fax: | | | | | | | [phone] | +--------+--------+ + + + + Reason [...] | | | | MR RECTAL | [facility] [place] | Mailcode: | | | | | [place] | [address] | [address] | | | | | MRI, PELVIS, | Phone: | [facility] | | | | | COMBO | [phone] | Research | | | | | | Fax: | Center | | | | | | [phone] | [place], [place] | | | | | | | [address] | | | | | | | Phone: | | | | | | | [phone] | | | | | | | Fax: | | | | | | | [phone] | +--------+--------+ + + + + Encounter Details +--------+ + + + + | Date | Type | Department | Care Team | Description | +--------+ + + + + | 03/02/ | Hospital | Diagnostic Imaging | Ailyn Wolff MD | | | 2017 | Encounter | Services at [facility] | [address] | | | | | [address] | [place], | | | | | Amita Hines Mailcode: | [place] [address] | | | | | [address] | [phone] | | | | | [facility] | | | | | | [place], [place] | | | | | | [address] | | | | | | [phone] | | | +--------+ + + + [...] | | | | | [place] [address], | | | | | | [place] [address] | | | | | | [phone] | | | | | | | [...]
--- OUTSIDE RECORDS SUMMARY | ~2019-06-01 | XMS | Encounter Summary ---
Demographics + + + | Address | [address] | | | [place] [address] | + + + | Home Phone [...] Team Providers + +------+ + | Care Financial Officer Name | Role | Phone | [...] | | 2017 | | Center at [facility] [address] | [address] | Received | | | | [address] | Amita Hines [place], | | | | | Mailcode: [place] | [place] [address] | | | | | for Health and | [phone] | | | | | [facility] 2 | | | | | | [place], [place] | | | | | | [address] | | | | | | [phone] | | | +--------+ + + + [...] | | | | | Amita Hines [place], | | | | | | [place] [address] | | | | | | [phone] | | | | | | | | +--------+---------+ + + + documented as of this encounter Visit Diagnoses Not on filedocumented in this encounter"
--- OUTSIDE RECORDS SUMMARY | ~2019-06-01 | XMS | Encounter Summary ---
Demographics + + + | Address | [address] | | | [place] [address] | + + + | Home Phone [...] Team Providers + +------+ + | Care Physical Therapy Aid Name | Role | Phone | + +------+ + | Kristian Anderson DO | PCP | | + +------+ + Encounter Details +--------+ + + + + | Date | Type | Department | Care Team | Description | +--------+ + + + + | 01/03/ | Document-Sc | Health Information | Unknown . | | | 2017 | anned | Services [address] | | | | | | [address] | | | | | | Mailcode: [id number] | | | | | | [facility] | | | | | | [place], [place] | | | | | | [address] | | | | | | [phone] | | | +--------+ + + + [...] | | | | Amita Hines [place], | | | | | | [place] [address] | | | | | | [phone] | | | | | | | [...]
--- OUTSIDE RECORDS SUMMARY | ~2019-06-01 | XMS | Encounter Summary ---
Demographics + + + | Address | [address] | | | [place] [address] | + + + | Home Phone [...] Team Providers + +------+ + | Care Bank Appraiser Name | Role | Phone | [...] 2017 | | Center at [facility] [address] | [address] | Review | | | | [address] | Amita Hines [place], | | | | | Mailcode: [place] | [place] [address] | | | | | for Health and | [phone] | | | | | [facility] 2 | | | | | | [place], [place] | | | | | | [address] | | | | | | [phone] | | | +--------+ + + + [...] | | | | | Amita Hines [place], | | | | | | [place] [address] | | | | | | [phone] | | | | | | | | +--------+---------+ + + + documented as of this encounter Visit Diagnoses Not on filedocumented in this encounter"
--- OUTSIDE RECORDS SUMMARY | ~2019-06-01 | XMS | Encounter Summary ---
Demographics + + + | Address | [address] | | | [place] [address] | + + + | Home Phone | | + + + | Preferred Language | Unknown | + + + | Marital Status | Single | + + + | Protestant Affiliation | NON | + + + | Race | White | + + + | Ethnic Group | Not or | + + + Author + + + | Author | [facility] | + + + | Organization | [facility] | + + + | Address | Unknown | + + + | Phone | Unavailable | + + + Support + + +---------+ + | Name | Relationship | Address | Phone | + + +---------+ + | Darrius Quintana | ECON | Unknown | | + + +---------+ + Care Team Providers + +------+ + | Care Terminal System Operator Name | Role | Phone | [...] | | | | [facility] | [place], [place] | | | | | [place] [address] | [address] | | | | | [place], [place] | | | | | | [address] | | | | | | [phone] | | | +--------+ + + + [...] | | | | | Amita Hines [place], | | | | | | [place] [address] | | | | | | [phone] | | | | | | | | +--------+---------+ + + + documented as of this encounter Visit Diagnoses Not on filedocumented in this encounter"
--- OUTSIDE RECORDS SUMMARY | ~2019-06-01 | XMS | Encounter Summary ---
Demographics + + + | Address | [address] | | | [place] [address] | + + + | Home Phone [...] Team Providers + +------+ + | Care Spool Sorter Name | Role | Phone | [...] | | | | [facility] | [place], [place] | | | | | [place] [address] | [address] | | | | | [place], [place] | | | | | | [address] | | | | | | [phone] | | | +--------+ + + + [...] | | | | | Amita Hines [place], | | | | | | [place] [address] | | | | | | [phone] | | | | | | | | +--------+---------+ + + + documented as of this encounter Visit Diagnoses Not on filedocumented in this encounter"
--- OUTSIDE RECORDS SUMMARY | ~2019-06-01 | XMS | Encounter Summary ---
Demographics + + + | Address | [address] | | | [place] [address] | + + + | Home Phone [...] Team Providers + +------+ + | Care Pile Driver Name | Role | Phone | + +------+ + | Justin Kristian | PCP | | + +------+ + Reason for Visit + + + | Reason | Comments | + + + | Treatment Planning | | + + + Encounter Details +--------+ + + + + | Date | Type | Department | Care Team | Description | +--------+ + + + + | 12/15/ | Telephone | Digestive Health | Ailyn Wolff MD | Treatment Planning | | 2017 | | Center at [facility] [address] | [address] | | | | | [address] | Amita Hines [place], | | | | | Mailcode: [place] | [place] [address] | | | | | for Health and | [phone] | | | | | [facility] 2 | | | | | | [place], [place] | | | | | | [address] | | | | | | [phone] | | | +--------+ + + + [...] | | | | | [place], | | | | | | [place] [address] | | | | | | [phone] | | | | | | | | +--------+---------+ + + + documented as of this encounter Visit Diagnoses Not on filecumented in this encounter"
--- OUTSIDE RECORDS SUMMARY | ~2019-06-01 | XMS | Encounter Summary ---
Demographics + + + | Address | [address] | | | [place] [address] | + + + | Home Phone | | + + + | Preferred Language | Unknown | + + + | Marital Status | Single | + + + | Restorationist Affiliation | NON | + + + [...] Team Providers + +------+ + | Care Narcotics And/Or Vice Detective Name | Role | Phone | [...] | | | | Epic Dept | [address] | | | | | | [address] | | | | | | | Amita Hines | | | | | | | [place], [place] | | | | | | | [address] | | | | | | | Phone: | | | | | | | [phone] | | | | | | | Fax: | | | | | | | [phone] | +--------+--------+ + + + + Encounter Details +--------+---------+ + + + | Date | Type | Department | Care Team | Description | +--------+---------+ + + + | 11/21/ | Office | Digestive Health | Ailyn Wolff MD | CA of rectum (HCC) | | 2018 | Visit | Center at [facility] [address] | [address] | (Primary Dx) | | | | [address] | Amita Hines [place], | | | | | Mailcode: [place] | [place] [address] | | | | | for Health and | [phone] | | | | | Healing, Building 2 | | | | | | [place], [place] | | | | | | [address] | | | | | | [phone] | | | +--------+---------+ + + + [...] rectal bleeding on 07/19/16 went to the [facility] ED CT abdomen/pelvis with IV contrast (07/20/16) [...] (10/05/16) no liver metastases rigid proctoscopy by mt (10/05/16) 6 cm from anal verge presented at the [facility] Multidisciplinary GI Oncology Conference on [...] to Mendoza pouch staple line presented at [facility] Multidisciplinary GI Oncology Conference on [...] MRI (OSH, 05/17/17) close to pelvic sidewall [facility] Multidisciplinary GI Oncology Conference (06/02/17) [...] resection with primary anastomosis, placement of a 19-Tongan Albert drain through the right lower quadrant [...] resection with primary anastomosis, placement of a 19-Tongan Albert drain through the right lower quadrant [...] Return/Re-evaluation patient, I spent 13 minutes of ackq-bp-npfh time, of which m ore than half the time was spent in counseling. 10 minute document review do cumented in this encounter Plan of Treatment +--------+---------+ + + + | Date | Type | Specialty | Care Team | Description | +--------+---------+ + + + | 06/18/ | Office | Surgery | Ailyn Wolff MD | | | 2018 | Visit | | [address] | | | | | | Amita Hines [place], | | | | | | [place] [address] | | | | | | [phone] | | | | | | | | +--------+---------+ + + + documented as of this encounter Visit Diagnoses + + | Diagnosis | + + | 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
--- OUTSIDE RECORDS SUMMARY | ~2019-06-01 | XMS | Encounter Summary ---
Demographics + + + | Address | [address] | | | [place] [address] | + + + | Home Phone [...] Team Providers + +------+ + | Care Mining Engineer Name | Role | Phone | [...] | Non-[facility] | Gs General | | | | | | Epic Dept | Surg Ch[facility]2 | | | | | | | [address] | | | | | | [address] | | | | | | | Mailcode: | | | | | | | [place] for | | | | | | | Health and | | | | | | | Healing, | | | | | | | Building 2 | | | | | | | [place], [place] | | | | | | | [address] | | | | | | | Phone: | | | | | | | [phone] | | | | | | | Fax: | | | | | | | [phone] | +--------+--------+ + + + + Encounter Details +--------+---------+ + + + | Date | Type | Department | Care Team | Description | +--------+---------+ + + + | 11/27/ | Office | Digestive Health | Ailyn Wolff MD | Rectal cancer (HCC) | | 2019 | Visit | Center at [facility] [address] | [address] | (Primary Dx) | | | | [address] | Suzy Hines [place], | | | | | Mailcode: [place] | [place] [address] | | | | | for Health and | [phone] | | | | | [facility] 2 | | | | | | [place], [place] | | | | | | [address] | | | | | | [phone] | | | +--------+---------+ + + + [...] and a lot of rectal bleeding on 12/26/16 went to the [facility] ED CT abdomen/pelvis with IV contrast [...] (10/05/16) no liver metastases rigid proctoscopy by al (10/05/16) 6 cm from anal verge presented [...] resection with Primary anastomosis, placement of a 19-Mexican Albert drain through the right lower quadrant [...] resection with primary anastomosis, placement of a 19-Mexican Albert drain through the right lower quadrant [...] Return/Re-evaluation patient, I spent 11 minutes of rmpt-ev-pbjn time, of which m ore than half [...] | 2018 | Visit | | [address] | | | | | | Suzy Hines [place], | | | | | | [place] [address] | | | | | | [phone] | | | | | | | [...] | + + + + + | [facility] | [address] | [place] [address] | | | SERVICES, CORE | [address] | | | + + + + + documented in this encounter Visit Diagnoses + + | Diagnosis | + + | Rectal cancer (HCC) - Primary Malignant neoplasm of rectum | + + documented in this encounter
--- OUTSIDE RECORDS SUMMARY | ~2019-06-01 | XMS | Encounter Summary ---
Demographics + + + | Address | [address] | | | [place] [address] | + + + | Home Phone [...] Team Providers + +------+ + | Care Percher Name | Role | Phone | + +------+ + | Justin Kristian | PCP | | + +------+ + Encounter Details +--------+ + + + + | Date | Type | Department | Care Team | Description | +--------+ + + + + | 09/22/ | Procedure | [facility] | | | | 2017 | Pass | [place] at | | | | | | [place] [address] | | | | [address] | | | | | | [place], [place] | | | | | | [address] | | | | | | [phone] | | | +--------+ + + + [...] | | | | | Amita Hines [place], | | | | | | [place] [address] | | | | | | [phone] | | | | | | | | +--------+---------+ + + + documented as of this encounter Visit Diagnoses Not on filedocumented in this encounter"
--- OUTSIDE RECORDS SUMMARY | ~2019-06-01 | XMS | Encounter Summary ---
Demographics + + + | Address | [address] | | | [place] [address] | + + + | Home Phone [...] Team Providers + +------+ + | Care Railroad Yard Worker Name | Role | Phone | [...] | Question | | 2016 | | [place] at [facility] [address] | [address] | | | | | [address] | Amita Hines [place], | | | | | Mailcode: Center | [place] [address] | | | | | for Health and | [phone] | | | | | [facility] 2 | | | | | | [place], [place] | | | | | | [address] | | | | | | [phone] | | | +--------+ + + + [...] | | | | | Amita Hines [place], | | | | | | [place] [address] | | | | | | [phone] | | | | | | | | +--------+---------+ + + + documented as of this encounter Visit Diagnoses Not on filedocumented in this encounter"
--- OUTSIDE RECORDS SUMMARY | ~2019-06-01 | XMS | Encounter Summary ---
Demographics + + + | Address | [address] | | | [place] [address] | + + + | Home Phone [...] Team Providers + +------+ + | Care Convention Services Manager Name | Role | Phone | + +------+ + | Kristian Anderson DO | PCP | | + +------+ + Encounter Details +--------+ + + + + | Date | Type | Department | Care Team | Description | +--------+ + + + + | 04/19/ | Procedure | Diagnostic Imaging | | | | 2016 | Pass | Services at [facility] | | | | | | [address] | | | | | | Amita Hines Mailcode: | | | | | | [address] [facility] | | | | | | [place], [place] | | | | | | [address] | | | | | | [phone] | | | +--------+ + + + [...] | | | | | Amita Hines [place], | | | | | | [place] [address] | | | | | | [phone] | | | | | | | | +--------+---------+ + + + documented as of this encounter Visit Diagnoses Not on filedocumented in this encounter"
--- OUTSIDE RECORDS SUMMARY | ~2019-06-01 | XMS | Encounter Summary ---
Demographics + + + | Address | [address] | | | [place] [address] | + + + | Home Phone [...] Team Providers + +------+ + | Care Body Shop Estimator Name | Role | Phone | + [...] | 2018 | on | Center at [facility] [address] | [address] | Received (Out of | | | | [address] | Amita [facility] | | | | Mailcode: [place] | [place] [address] | Authorization ) | | | | for Health and | [phone] | | | | | [facility] 2 | | | | | | [place], [place] | | | | | | [address] | | | | | | [phone] | | | +--------+ + + + [...] | | | | | Amita Hines [place], | | | | | | [place] [address] | | | | | | [phone] | | | | | | | | +--------+---------+ + + + documented as of this encounter Visit Diagnoses Not on filedocumented in this encounter"
--- OUTSIDE RECORDS SUMMARY | ~2019-06-01 | XMS | Encounter Summary ---
Demographics + + + | Address | [address] | | | [place] [address] | + + + | Home Phone [...] Team Providers + +------+ + | Care Baccarat Manager Name | Role | Phone | + +------+ + | Kristian Anderson DO | PCP | | + +------+ + Encounter Details +--------+ + + + + | Date | Type | Department | Care Team | Description | +--------+ + + + + | 10/04/ | Abstract | Digestive Health | Clinic, Surgery | | | 2017 | | [place] at [facility] [address] | | | | | | [address] | | | | | | Mailcode: [place] | | | | | | for Health and | | | | | | Healing, Building 2 | | | | | | [place], [place] | | | | | | [address] | | | | | | [phone] | | | +--------+ + + + [...] | | | | | Amita Hines [place], | | | | | | [place] [address] | | | | | | [phone] | | | | | | | | +--------+---------+ + + + documented as of this encounter Visit Diagnoses Not on filedocumented in this encounter"
--- OUTSIDE RECORDS SUMMARY | ~2019-06-01 | XMS | Encounter Summary ---
Demographics + + + | Address | [address] | | | [place] [address] | + + + | Home Phone [...] Team Providers + +------+ + | Care Commercial Underwriter Name | Role | Phone | + [...] Report | | 2017 | on | [employer] at [facility] [address] | [address] | (GI Oncology | | | | [address] | Amita Hines [place], | Planning Conference) | | | | Mailcode: [employer] | [place] [address] | | | | | for Health and | [phone] | | | | | [facility] 2 | | | | | | [place], [place] | | | | | | [address] | | | | | | [phone] | | | +--------+ + + + [...] | | | | | [place], | | | | | | [place] [address] | | | | | | [phone] | | | | | | | | +--------+---------+ + + + documented as of this encounter Visit Diagnoses Not on filedocumented in this encounter"
--- OUTSIDE RECORDS SUMMARY | ~2019-06-01 | XMS | Encounter Summary ---
Demographics + + + | Address | [address] | | | [place] [address] | + + + | Home Phone [...] Team Providers + +------+ + | Care Nail Polish Brush Machine Feeder Name | Role | Phone | + +------+ + | Kristian Anderson DO | PCP | | + +------+ + Encounter Details +--------+ + + + + | Date | Type | Department | Care Team | Description | +--------+ + + + + | 07/05/ | Pharmacy | Outpatient Retail | | | | 2016 | Visit | Clinic Pharmacy | | | | | | [address] | | | | | | Amita Hines [place], | | | | | | [place] [address] | | | +--------+ + + + [...] | | | | | Amita Hines [place], | | | | | | [place] [address] | | | | | | [phone] | | | | | | | | +--------+---------+ + + + documented as of this encounter Visit Diagnoses Not on filedocumented in this encounter"
--- OUTSIDE RECORDS SUMMARY | ~2019-06-01 | XMS | Encounter Summary ---
Demographics + + + | Address | [address] | | | [place] [address] | + + + | Home Phone [...] Team Providers + +------+ + | Care Tennis Professional Name | Role | Phone | + +------+ + | Kristian Anderson DO | PCP | | + +------+ + Encounter Details +--------+ + + + + | Date | Type | Department | Care Team | Description | +--------+ + + + + | 05/17/ | Document-Sc | Health Information | Unknown . | | | 2017 | anned | Services [address] | | | | | | [address] | | | | | | Mailcode: OP17A | | | | | | [facility] | | | | | | [place], [place] | | | | | | [address] | | | | | | [phone] | | | +--------+ + + + [...] | | | | | Amita Hines [place], | | | | | | [place] [address] | | | | | | [phone] | | | | | | | [...]
--- OUTSIDE RECORDS SUMMARY | ~2019-06-01 | XMS | Encounter Summary ---
Demographics + + + | Address | [address] | | | [place] [address] | + + + | Home Phone [...] Team Providers + +------+ + | Care Vpk Teacher Name | Role | Phone | + +------+ + | Justin Kristian | PCP | | + +------+ + Encounter Details +--------+------+ + + + | Date | Type | Department | Care Team | Description | +--------+------+ + + + | 05/29/ | Lab | Laboratory at [facility] | | [facility]) | | 2018 | | [address] | | | | | | [place], [place] | | | | | | [address] | | | | | | [phone] | | | +--------+------+ + + + [...] | | | | | Suzy i[place], | | | | | | [place] [address] | | | | | | [phone] | | | | | | | [...] | + + + + + | [facility] | [address] | [place] [address] | | | SERVICES, CORE | [address] | | | + + + + + documented in this encounter Visit Diagnoses + + | Diagnosis | + + | CA of rectum (HCC) Malignant neoplasm of rectum | + + documented in this encounter"
--- OUTSIDE RECORDS SUMMARY | ~2019-06-01 | XMS | Encounter Summary ---
Demographics + + + | Address | [address] | | | [place] [address] | + + + | Home Phone [...] Team Providers + +------+ + | Care Photographer Finish Name | Role | Phone | + [...] Lab Results | | 2018 | | [place] [address] [address] | [address] | | | | | [address] | [facility], | | | | | Mailcode: [place] | [place] [address] | | | | | for Health and | [phone] | | | | | [facility] 2 | | | | | | [place], [place] | | | | | | [address] | | | | | | [phone] | | | +--------+ + + + [...] | | | | | Amita Hines [place], | | | | | | [place] [address] | | | | | | [phone] | | | | | | | | +--------+---------+ + + + documented as of this encounter Visit Diagnoses Not on filedocumented in this encounter"
--- OUTSIDE RECORDS SUMMARY | ~2019-06-01 | XMS | Encounter Summary ---
Demographics + + + | Address | [address] | | | [place] [address] | + + + | Home Phone [...] Team Providers + +------+ + | Care Elevator Constructor Electric Name | Role | Phone | + [...] To Surgery | | 2017 | | [place] at [facility] [address] | | - General | | | | [address] | | | | | | Mailcode: [place] | | | | | | for Health and | | | | | | Healing, Building 2 | | | | | | [place], [place] | | | | | | [address] | | | | | | [phone] | | | +--------+ + + + [...] | | | | | Amita Hines [place], | | | | | | [place] [address] | | | | | | [phone] | | | | | | | | +--------+---------+ + + + documented as of this encounter Visit Diagnoses Not on filedocumented in this encounter"
--- OUTSIDE RECORDS SUMMARY | ~2019-06-01 | XMS | Encounter Summary ---
Demographics + + + | Address | [address] | | | [place] [address] | + + + | Home Phone [...] Team Providers + +------+ + | Care Nanotechnology Engineering Technician Name | Role | Phone | [...] | | 2019 | | Center at [facility] [address] | [address] | Review | | | | [address] | Amita Hines [place], | | | | | Mailcode: [place] | [place] [address] | | | | | for Health and | [phone] | | | | | [facility] 2 | | | | | | [place], [place] | | | | | | [address] | | | | | | [phone] | | | +--------+ + + + [...] | | | | | Amita Hines [place], | | | | | | [place] [address] | | | | | | [phone] | | | | | | | | +--------+---------+ + + + documented as of this encounter Visit Diagnoses Not on filedocumented in this encounter"
--- OUTSIDE RECORDS SUMMARY | ~2019-06-01 | XMS | Encounter Summary ---
Demographics + + + | Address | [address] | | | [place] [address] | + + + | Home Phone [...] Providers + +------+ + | Care Rubber Compounder Supervisor Name | Role | Phone | [...] | | | Oncology | Rectal | [address] | Wiht | | | | | cancer (HCC) | [address] | MD [place] | | | | | Procedures | Amita Hines | [address] | | | | | CONSULT TO | [place] | [address] | | | | | RADIATION | [address] | [place], | | | | | ONCOLOGY | Phone: | [place] | | | | | | [phone] | [address] | | | | | | Fax: | Phone: | | | | | | [phone] | [phone] | | | | | | | Fax: | | | | | | | [phone] | +--------+--------+ + + + + Encounter Details +--------+ + + + + | Date | Type | Department | Care Team | Description | +--------+ + + + + | 06/02/ | MyChart | Digestive Health | Ailyn Wolff MD | Info about my cancer | | 2017 | Encounter | [place] at [facility] [address] | [address] | | | | | [address] | Amita Hines [place], | | | | | Mailcode: [place] | [place] [address] | | | | | for Health and | [phone] | | | | | [facility] 2 | | | | | | [place], [place] | | | | | | [address] | | | | | | [phone] | | | +--------+ + + + [...] | | | | | Amita Hines [facility] | | | | | | [place] [address] | | | | | | [phone] | | | | | | | | +--------+---------+ + + + documented as of this encounter Visit Diagnoses + + | Diagnosis | + + | Rectal cancer (HCC) - Primary Malignant neoplasm of rectum | + + documented in this encounter"
--- OUTSIDE RECORDS SUMMARY | ~2019-06-01 | XMS | Encounter Summary ---
Demographics + + + | Address | [address] | | | [place] [address] | + + + | Home Phone [...] Team Providers + +------+ + | Care Parts Salvager Name | Role | Phone | + [...] | | 2019 | | Center at [facility] [address] | [address] | Review | | | | [address] | Amita Hines [place], | | | | | Mailcode: [place] | [place] [address] | | | | | for Health and | [phone] | | | | | [facility] 2 | | | | | | [place], [place] | | | | | | [address] | | | | | | [phone] | | | +--------+ + + + [...] | | | | Amita Hines [place], | | | | | | [place] [address] | | | | | | [phone] | | | | | | | | +--------+---------+ + + + documented as of this encounter Visit Diagnoses Not on filedocumented in this encounter"
--- OUTSIDE RECORDS SUMMARY | ~2019-06-01 | XMS | Clinical Summary ---
Demographics + + + | Address | [address] | | | [place] [address] | + + + | Home Phone | | + + + | Preferred Language | Unknown | + + + | Marital Status | | + + + | Orthodoxy Affiliation | Unknown | + + + | Race | Unknown | + + + | Ethnic Group | Unknown | + + + Author + + + | Author | [facility] | | | and [place] | + + + | Organization | [facility] | | | and [place] | + + + | Address | Unknown | + + + | Phone | Unavailable | + + + Support + + + + + | Name | Relationship | Address | Phone | + + + + + | Lamar Phillips | ECON | [place] [address] | | + + + + + Care Team Providers + +------+ + | Care Computer Game Programmer Name | Role | Phone | [...] 2010 (Rene). Pathological specimens; PAP | | #[id number] "negative for intraepithelial lesions or malignancy." | [...] DIAGNOSIS: Locally Advanced Rectal Cancer, | | [id number], Stage IIA. Willie Barajas presented to the [facility] emergency room on July 20, [...] the rectum. Biopsy specimen number | | [id number] evaluated by Dr. Felipe Nixon of [place] | | Pathology was notable for a tubular adenoma without high-grade | | dysplasia or overt carcinoma. This procedure also included a | | full colonoscopy through the ostomy were 2 additional polyps were | | removed, a tubular adenoma at 35 cm and a hyperplastic polyp at | | [address] C/A/P at in [place], [place] | | demonstrated no evidence of metastatic disease.4. On September 22 | | 2016 Dr. Thacker placed in internal jugular Port-A-Cath without | | complications.5. MRI of pelvis performed on October 05, 2016 at | | [facility]: Rectal mass 7.7 cm x 6.2 cm x 9.6 cm in length located | | within 3 cm of the anal sphincter and 6.4 cm from the anal verge | | with radiographic extension though multiple areas of the bowel | | wall.6. CT abdomen/pelvis also at [facility] October 05, 2016; large | | almost completely circumferential rectosigmoid mass better | | delineated on the corresponding MRI with adjacent probable | | abscess. No distant metastases identified.7. On October 14, 2016 | | Jenn was evaluated by Dr. Ailyn Wolff and Dr. Shea Mcneill of the | | [facility] where her case was presented | | to their tumor board. Clinical exam is notable for an overt | | rectal carcinoma invading into the vagina. 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 Concerns raised by the [facility] | | [facility] Tumor Board were that the [...] as mutation analysis." | | Pathological Specimen #[id number] (Linwood Nixon | | Pathology). Tubulovillous adenoma [...] Multidisciplinary Care Team | | Conference at [facility] March 10, 2017; "Given borderline | | [...] Dr. Ailyn Wolff at the | | [facility]: 06/30/17: Exploratory laparotomy. Extensive lysis of | | adhesions. Excision of left lower quadrant fistula tract. Total | | mesorectal excision, intersphincteric abdominoperineal resection, | | en bloc resection of left ovary and left fallopian tube and | | posterior vaginal wall. Placement of a 19-Romansh Albert drain | | through the right [...] August 12, 2017; [facility], [place], | | [place]; positive for perianal fistula between anus and vagina.22. | | Clinical exam on August 22, [address] Wolff at [facility] who could | | not confirm the [...] pelvis September 28, 2017 | | ([facility], [place], [place]); Small gas and fluid collection in the | | presacral space, concerning for abscess formation. Postoperative | | changes of low anterior resection, with left lower quadrant end | | colostomy. Left lower quadrant parastomal hernia. Last | | Assessment & Plan: Jenn Parada returned to clinic on | | 01/02/2018 with a bat carrier for follow up of her locally advanced | | rectal cancer.Interval history is notable for the fact that | | Kirstie electively removed Jenn's port-a-cath.Interval history is | | also notable for the fact that Jenn had an encounter with her | | surgeon, Dr. Ailyn Wolff at [facility]. Dr. Wolff has asked Jenn to follow up | | with him in [place] every three months.Assessment; Locally | | advanced rectal cancer, status post 10 cycles of neoadjuvant | | FOFLOX, followed by definitive surgery on May 16, 2017, | | followed by two adjuvant cycles of FOLFOX completed on August | | 2017.Plan; Jenn will follow up with Dr. Wolff in [place] every | | three months. Currently, follow-up [...] | [facility] | [facility] | [id number] | | [phone] | | [employer] | [...] | | [address] (Home) | [place] [address] | + +--------+ +--------+ + + Advance Directives Patient has advance care planning documents on file. For more information, please contact:[facility] [place] [address]
--- OUTSIDE RECORDS SUMMARY | ~2019-06-01 | XMS | Encounter Summary ---
Demographics + + + | Address | [address] | | | [place] [address] | + + + | Home Phone [...] Team Providers + +------+ + | Care Sanitation Tank Washer Name | Role | Phone | [...] | 2019 | Visit | Center at [facility] [address] | [address] | (Primary Dx) | | | | [address] | Suzy Hines [place], | | | | | Mailcode: [place] | [place] [address] | | | | | for Health and | [phone] | | | | | [facility], [facility] 2 | | | | | | [place], [place] | | | | | | [address] | | | | | | [phone] | | | +--------+---------+ + + + [...] rectal bleeding on 07/19/16 went to [facility] ED CT abdomen/pelvis with IV contrast (07/20/16) [...] anal verge presented at the [facility] Mult[facility] GI Oncology Conference on 10/07/16 diagnosis: [...] pouch staple line presented at [facility] Conference on 03/10/17. 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 No abdominal pain now. Took a narcotic pain pill a w [place] ago. Good appetite. Tolerating her diet. Intermittent [...] and are negative. She comes for routine [facility] er surveillance. Objective: BP 151/84 | Pulse [...] Return/Re-evaluation patient, I spent 10 minutes of myyw-ou-skro time, of which m ore than half [...] | | | | | Suzy Hines [place], | | | | | | [place] [address] | | | | | | [phone] | | | | | | | [...] [facility] | [address] | [place] [address] | | | SERVICES, CORE | [address] | | | + + + + + documented in this encounter Visit Diagnoses + + | Diagnosis | + + | 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
--- OUTSIDE RECORDS SUMMARY | ~2019-06-01 | XMS | Encounter Summary ---
Demographics + + + | Address | [address] | | | [place] [address] | + + + | Home Phone [...] Team Providers + +------+ + | Care Ladle Builder Name | Role | Phone | [...] | | [address] | Amita Hines [place], | | | | | Mailcode: [place] | [place] [address] | | | | | for Health and | [phone] | | | | | [facility], [facility] 2 | | | | | | [place], [place] | | | | | | [address] | | | | | | [phone] | | | +--------+ + + + [...] | | | | | Amita Hines [place], | | | | | | [place] [address] | | | | | | [phone] | | | | | | | | +--------+---------+ + + + documented as of this encounter Visit Diagnoses Not on filedocumented in this encounter"
--- OUTSIDE RECORDS SUMMARY | ~2019-06-01 | XMS | Encounter Summary ---
Demographics + + + | Address | [address] | | | [place] [address] | + + + | Home Phone [...] Team Providers + +------+ + | Care Flotation Tender Name | Role | Phone | + +------+ + | Kristian Anderson DO | PCP | | + +------+ + Encounter Details +--------+ + + + + | Date | Type | Department | Care Team | Description | +--------+ + + + + | 05/16/ | MyChart | Digestive Health | Ailyn Wolff MD | drainage | | 2017 | Encounter | Center at [facility] [address] | [address] | | | | | [address] | Amita Hines [place], | | | | | Mailcode: [place] | [place] [address] | | | | | for Health and | [phone] | | | | | [facility] 2 | | | | | | [place], [place] | | | | | | [address] | | | | | | [phone] | | | +--------+ + + + [...] | | | | | [address] [place], | | | | | | [place] [address] | | | | | | [phone] | | | | | | | | +--------+---------+ + + + documented as of this encounter Visit Diagnoses Not on filedocumented in this encounter"
--- OUTSIDE RECORDS SUMMARY | ~2019-06-01 | XMS | Encounter Summary ---
Demographics + + + | Address | [address] | | | [place] [address] | + + + | Home Phone [...] + + | Author | [facility] | + + + | Organization | [facility] | + + + | Address | Unknown | + + + | Phone | Unavailable | + + + Support + + +---------+ + | Name | Relationship | Address | Phone | + + +---------+ + | Darrius Quintana | ECON | Unknown | | + + +---------+ + Care Team Providers + +------+ + | Care Associate Financial Representative Name | Role | Phone | [...] Notes | | 2016 | | at [facility] [address] | | (Lodging) | | | | [address] [place] | | | | | | [place] | | | | | | [place], [place] | | | | | | [address] | | | | | | [phone] | | | +--------+ + + + [...] | | | | | Amita Hines [place], | | | | | | [place] [address] | | | | | | [phone] | | | | | | | | +--------+---------+ + + + documented as of this encounter Visit Diagnoses Not on filedocumented in this encounter"
--- OUTSIDE RECORDS SUMMARY | ~2019-06-01 | XMS | Encounter Summary ---
Demographics + + + | Address | [address] | | | [place] [address] | + + + | Home Phone [...] Team Providers + +------+ + | Care Drawing Machine Operator Name | Role | Phone | + +------+ + | Silvioct Kristian | PCP | | + +------+ + Reason for Visit + + + | Reason | Comments | + + + | Outside Records | CT chest, abdomen, pelvis September 2017 and MRI September 2017 St | | Received | [facility]. Images in IMP[employer] | + + + Encounter Details +--------+ + + + + | Date | Type | Department | Care Team | Description | +--------+ + + + + | 01/04/ | Abstract | Digestive Health | Ailyn Wolff MD | Outside Records | | 2018 | | Center at [facility] [address] | [address] | Received (CT chest, | | | | [address] | [address] [place], | abdomen, pelvis | | | | Mailcode: Center | [place] [address] | September 2017 and MRI | | | | for Health and | [phone] | September 2017 St | | | | [facility], [facility] 2 | | [facility]. | | | | [place], [place] | | Images in IMP[employer]) | | | | [address] | | | | | | [phone] | | | +--------+ + + + [...] | | | | | | [place] [address] | | | | | | [phone] | | | | | | | | +--------+---------+ + + + documented as of this encounter Visit Diagnoses Not on filedocumented in this encounter"
--- OUTSIDE RECORDS SUMMARY | ~2019-06-01 | XMS | Encounter Summary ---
Demographics + + + | Address | [address] | | | [place] [address] | + + + | Home Phone [...] Team Providers + +------+ + | Care Concierge Name | Role | Phone | + +------+ + | Justin Kristian | PCP | | + +------+ + Encounter Details +--------+------+ + + + | Date | Type | Department | Care Team | Description | +--------+------+ + + + | 02/20/ | Lab | Laboratory at [facility] | | Buzz ([facility]) | | 2018 | | [address] | | | | | | [place], [place] | | | | | | [address] | | | | | | [phone] | | | +--------+------+ + + + [...] | | | | | Suzy Hines [place], | | | | | | [place] [address] | | | | | | [phone] | | | | | | | [...] | + + + + + | [facility] | [address] | [place] [address] | | | SERVICES, CORE | [address] | | | + + + + + documented in this encounter Visit Diagnoses + + | Diagnosis | + + | CA of rectum (HCC) Malignant neoplasm of rectum | + + documented in this encounter"
--- OUTSIDE RECORDS SUMMARY | ~2019-06-01 | XMS | Encounter Summary ---
Demographics + + + | Address | [address] | | | [place] [address] | + + + | Home Phone [...] Team Providers + +------+ + | Care Electrolysis Needle Operator Name | Role | Phone | [...] | Center at [facility] [address] | [address] | Review | | | | [address] | Amita Hines [place], | | | | | Mailcode: [place] | [place] [address] | | | | | for Health and | [phone] | | | | | [facility] 2 | | | | | | [place], [place] | | | | | | [address] | | | | | | [phone] | | | +--------+ + + + [...] | | | | | | [place] [address] | | | | | | [phone] | | | | | | | | +--------+---------+ + + + documented as of this encounter Visit Diagnoses Not on filedocumented in this encounter"
--- OUTSIDE RECORDS SUMMARY | ~2019-06-01 | XMS | Encounter Summary ---
Demographics + + + | Address | [address] | | | [place] [address] | + + + | Home Phone [...] Team Providers + +------+ + | Care Service Station Equipment Mechanic Name | Role | Phone | [...] | | | | [facility] | [place], [place] | | | | | [place] [address] | [address] | | | | | [place], [place] | | | | | | [address] | | | | | | [phone] | | | +--------+ + + + [...] | | 18 | | | | [id number], Skin prep: | | | | | | | 3M 3344 (30/mo), Adh | | | | | | | Rem HO 7760 | | | | | | | (1box/mo), Rings: HO | | | | | | | 8805 (10/mo), | | | | | | | [place]odor[place] [address] | | | | | | | (60/mo), Pwdr: CT | | | | | | | 916780 (1oz/mo), | | | | | | | Belt: Lrg (2/mo) | | | | | | | and Irrigation CO | | | | | | | 171288, [place]leeve [place] | | | | | | | 466249 | | | | | + + [...] | | | | | | [place] [address] | | | | | | [phone] | | | | | | | | +--------+---------+ + + + documented as of this encounter Visit Diagnoses Not on filedocumented in this encounter"
--- OUTSIDE RECORDS SUMMARY | ~2019-06-01 | XMS | Encounter Summary ---
Demographics + + + | Address | [address] | | | [place] [address] | + + + | Home Phone [...] Team Providers + +------+ + | Care Patient Transition Specialist Name | Role | Phone | [...] | | | | [facility] | [place], [place] | | | | | [place] [address] | [address] | | | | | [place], [place] | | | | | | [address] | | | | | | [phone] | | | +--------+ + + + [...] | | 18 | | | | 486658, Skin prep: | | | | | | | 3M 3344 (30/mo), Adh | | | | | | | Rem HO 7760 | | | | | | | (1box/mo), Rings: HO | | | | | | | 8805 (10/mo), | | | | | | | [place] [address] | | | | | | | (60/mo), Pwdr: CT | | | | | | | 557628 (1oz/mo), | | | | | | | Belt: Lrg (2/mo) | | | | | | | and Irrigation [place] | | | | | | | 360360, [place]ve [place] | | | | | | | 153908 | | | | | + + [...] | | | | | Amita Hines [place], | | | | | | [place] [address] | | | | | | [phone] | | | | | | | | +--------+---------+ + + + documented as of this encounter Visit Diagnoses Not on filedocumented in this encounter"
--- OUTSIDE RECORDS SUMMARY | ~2019-06-01 | XMS | Encounter Summary ---
Demographics + + + | Address | [address] | | | [place] [address] | + + + | Home Phone [...] Team Providers + +------+ + | Care Molder Offbearer Name | Role | Phone | + [...] | | 2017 | | Center at [facility] [address] | [address] | | | | | [address] | Amita Hines [place], | | | | | Mailcode: [place] | [place] [address] | | | | | for Health and | [phone] | | | | | [facility] 2 | | | | | | [place], [place] | | | | | | [address] | | | | | | [phone] | | | +--------+ + + + [...] | | | | | [address] [place], | | | | | | [place] [address] | | | | | | [phone] | | | | | | | | +--------+---------+ + + + documented as of this encounter Visit Diagnoses Not on filecumented in this encounter"
--- OUTSIDE RECORDS SUMMARY | ~2019-06-01 | XMS | Encounter Summary ---
Demographics + + + | Address | [address] | | | [place] [address] | + + + | Home Phone [...] Providers + +------+ + | Care Rotor Assembler Name | Role | Phone | [...] | | 2018 | | Center at [facility] [address] | [address] | | | | | [address] | Amita Hines [facility] | | | | | Mailcode: [place] | [place] [address] | | | | | for Health and | [phone] | | | | | [facility] 2 | | | | | | [place], [place] | | | | | | [address] | | | | | | [phone] | | | +--------+ + + + [...] | | | | | Amita Hines [place], | | | | | | [place] [address] | | | | | | [phone] | | | | | | | | +--------+---------+ + + + documented as of this encounter Visit Diagnoses Not on filedocumented in this encounter"
--- OUTSIDE RECORDS SUMMARY | ~2019-06-01 | XMS | Encounter Summary ---
Demographics + + + | Address | [address] | | | [place] [address] | + + + | Home Phone [...] Team Providers + +------+ + | Care Regional Clinical Research Associate Name | Role | Phone | + +------+ + | Silvioct Kristian | PCP | | + +------+ + Encounter Details +--------+------+ + + + | Date | Type | Department | Care Team | Description | +--------+------+ + + + | 08/28/ | Lab | Laboratory at [facility] | | SABINA [facility]ung [facility] ([facility]) | | 2019 | | [address] | | | | | | [place], [place] | | | | | | [address] | | | | | | [phone] | | | +--------+------+ + + + [...] | | | | | Suzy Hines [place], | | | | | | [place] [address] | | | | | | [phone] | | | | | | | [...] | + + + + + | [facility] | [address] | [place] [address] | | | SERVICES, CORE | [address] | | | + + + + + documented in this encounter Visit Diagnoses + + | Diagnosis | + + | CA of rectum (HCC) Malignant neoplasm of rectum | + + documented in this encounter"
--- OUTSIDE RECORDS SUMMARY | ~2019-06-01 | XMS | Encounter Summary ---
Demographics + + + | Address | [address] | | | [place] [address] | + + + | Home Phone [...] Team Providers + +------+ + | Care Plating Tank Operator Name | Role | Phone | [...] | | 2017 | | Center at [place] [address] | [address] | Review | | | | [address] | Amita Hines [place], | | | | | Mailcode: [place] | [place] [address] | | | | | for Health and | [phone] | | | | | [facility] 2 | | | | | | [place], [place] | | | | | | [address] | | | | | | [phone] | | | +--------+ + + + [...] | | | | | Amita H[place], | | | | | | [place] [address] | | | | | | [phone] | | | | | | | | +--------+---------+ + + + documented as of this encounter Visit Diagnoses Not on filedocumented in this encounter"
--- OUTSIDE RECORDS SUMMARY | ~2019-06-01 | XMS | Encounter Summary ---
Demographics + + + | Address | [address] | | | [place] [address] | + + + | Home Phone [...] Providers + +------+ + | Care Director Web Name | Role | Phone | + [...] 2017 | | Center at [facility] [address] | [address] | Received (10/27/2016 | | | | [address] | Amita Hines [place], | Op notes and | | | | Mailcode: [place] | [place] [address] | Pathology) | | | | for Health and | [phone] | | | | | [facility] 2 | | | | | | [place], [place] | | | | | | [address] | | | | | | [phone] | | | +--------+ + + + [...] | | | | | [address] [place], | | | | | | [place] [address] | | | | | | [phone] | | | | | | | | +--------+---------+ + + + documented as of this encounter Visit Diagnoses Not on filedocumented in this encounter"
--- OUTSIDE RECORDS SUMMARY | ~2019-06-01 | XMS | Encounter Summary ---
Demographics + + + | Address | [address] | | | [place] [address] | + + + | Home Phone | | + + + | Preferred Language | Unknown | + + + | Marital Status | | + + + | Protestant Affiliation | Unknown | + + + | Race | Unknown | + + + | Ethnic Group | Unknown | + + + Author + + + | Author | [facility] | | | and [place] | + + + | Organization | [facility] | | | and [place] | + + + | Address | Unknown | + + + | Phone | Unavailable | + + + Support + + + + + | Name | Relationship | Address | Phone | + + + + + | Lamar Phillips | ECON | [place] [address] | | + + + + + Care Team Providers + +------+ + | Care Mosaic Layer Name | Role | Phone | [...] + | 04/12/ | Telephone | [facility] | Mychal Andre, | Medication Orders | | 2018 | | [facility] [place] | [address] | | | | | [address] [facility], | [place] [address] | | | | | [address] [place] | [place] | | | | | [place] [address] | [address] | | | | | [phone] | | | +--------+ + + + [...]
--- OUTSIDE RECORDS SUMMARY | ~2019-06-01 | XMS | Encounter Summary ---
Demographics + + + | Address | [address] | | | [place] [address] | + + + | Home Phone [...] Team Providers + +------+ + | Care Media Planner / Buyer Name | Role | Phone | + [...] | 2018 | Encounter | Center at [facility] [address] | [address] | | | | | [address] | Amita Hines [place], | | | | | Mailcode: [place] | [place] [address] | | | | | for Health and | [phone] | | | | | [facility], [facility] 2 | | | | | | [place], [place] | | | | | | [address] | | | | | | [phone] | | | +--------+ + + + [...] | | | | Amita Hines [place], | | | | | | [place] [address] | | | | | | [phone] | | | | | | | | +--------+---------+ + + + documented as of this encounter Visit Diagnoses Not on filedocumented in this encounter"
--- OUTSIDE RECORDS SUMMARY | ~2019-06-01 | XMS | Encounter Summary ---
Demographics + + + | Address | [address] | | | [place] [address] | + + + | Home Phone [...] Team Providers + +------+ + | Care Drywall Taper Name | Role | Phone | + [...] | | | | CONSULT TO | [place], [place] | [address] | | | | | RADIATION | [address] | Rd [place], | | | | | ONCOLOGY | Phone: | [place] | | | | | | [phone] | [address] | | | | | | Fax: | Phone: | | | | | | [phone] | [phone] | | | | | | | Fax: | | | | | | | [phone] | +--------+--------+ + + + + Encounter Details +--------+---------+ + + + | Date | Type | Department | Care Team | Description | +--------+---------+ + + + | 06/14/ | Office | Radiation Oncology | Wade Sherman, | Rectal cancer (HCC) | | 2017 | Visit | at [facility] [address] | [address] | (Primary Dx) | | | | [address] | [address] | | | | | [place] | [place], [place] | | | | | [place], [place] | [address] | | | | | [address] | [phone] | | | | | [phone] | | | +--------+---------+ + + + [...] anal biopsy on 10/27/16 consistent with malignancy. [facility] tumor board consensus was to proceed with total neoadjuvant therapy. She completed 6 cycles of FOLFOX on , and pelvic EBRT to 50.4 Gy on 02/17/17. Followup MRI on 03/02/17 with good tumor response but circumferential margin still threatened. [facility] recommendations to proceed with another 6 cycles [...] 1 Years of education: 12 Occupational History [employer] Social History Main Topics Smoking status: Former [...] IORT to 1 cm depth per the [facility] experience while retracting all small bowel and ureters out of the field (PMID [id number]) Wade Sherman MD CC: A copy of [...] | | | | | Amita Hines [place], | | | | | | [place] [address] | | | | | | [phone] | | | | | | | | +--------+---------+ + + + documented as of this encounter Visit Diagnoses + + | Diagnosis | + + | Rectal cancer (HCC) - Primary Malignant neoplasm of rectum | + + documented in this encounter
--- OUTSIDE RECORDS SUMMARY | ~2019-06-01 | XMS | Encounter Summary ---
Demographics + + + | Address | [address] | | | [place] [address] | + + + | Home Phone [...] Providers + +------+ + | Care Optical Glass Wet Inspector Name | Role | Phone | [...] | | | 2016 | Event | [facility] | MD Brock [address] | | | | | Admitting Desk | [address] | | | | | Located on the 9 | [place], [place] | | | | | [facility] [address] | [address] | | | | | [address] | [phone] | | | | | [place], [place] | | | | | | [address] | [place] [address] | | | | | | LASHAWN Loja [address] | | | | | | [address] | | | | | | [place], [place] | | | | | | [address] | | | | | | [phone] | | | | | | | | +--------+ + + + + Anesthesia Record + + + + + | Procedure Name | Responsible | Anesthesia Start | Anesthesia Stop Time | | | Anesthesiologist | Time | | + + + + + | LOW ANTERIOR | Gerry Mendez, | 06/30/17720 | 06/30/17 5165 | | RESECTION, POSTERIOR | MD | [...] | | IV | 07/02/17; 1217 | PER ASSESSMENT NURSE | | +--------+ + + + | [...] | | | | | Amita Hines [place], | | | | | | [place] [address] | | | | | | [phone] | | | | | | | [...] SUPRIYA KO | | | IPerformed by PER ASSESSMENT NURSE: LA NENA DOMÍNGUEZ Attempt X2 by LASHAWN. [...] PST | | | | | Until [facility] 06/30/17 at 1712 | | | [...] PST | | | | | Until [facility] 06/30/17 at 1712 | iology | [...] 30 mg | | | | Starting [facility] 06/30/17 at 0809, | | 17 [...]
--- OUTSIDE RECORDS SUMMARY | ~2019-06-01 | XMS | Encounter Summary ---
Demographics + + + | Address | [address] | | | [place] [address] | + + + | Home Phone [...] Providers + +------+ + | Care Television Maintenance Worker Name | Role | Phone | + +------+ + | Kristian Anderson DO | PCP | | + +------+ + Encounter Details +--------+ + + + + | Date | Type | Department | Care Team | Description | +--------+ + + + + | 07/19/ | Inclusion Paraeducator | Digestive Health | Trinidad Garcia, | | | 2016 | | Center at [facility] [address] | AGACNP [address] | | | | | [address] | [facility] [place] | | | | | Mailcode: [place] | [address] | | | | | for Health and | | | | | | [facility], [facility] 2 | | | | | | [facility] [place] | | | | | | [address] | | | | | | [phone] | | | +--------+ + + + [...] | | | | | Amita Hines [place], | | | | | | [place] [address] | | | | | | [phone] | | | | | | | | +--------+---------+ + + + documented as of this encounter Visit Diagnoses Not on filedocumented in this encounter"
--- OUTSIDE RECORDS SUMMARY | ~2019-06-01 | XMS | Encounter Summary ---
Demographics + + + | Address | [address] | | | [place] [address] | + + + | Home Phone [...] Team Providers + +------+ + | Care Paediatric Physiotherapist Name | Role | Phone | + [...] | | 2017 | | Center at [facility] [address] | [address] | results | | | | [address] | Amita Hines [place], | | | | | Mailcode: [place] | [place] [address] | | | | | for Health and | [phone] | | | | | [facility] 2 | | | | | | [place], [place] | | | | | | [address] | | | | | | [phone] | | | +--------+ + + + [...] | | | | | Amita Hines [place], | | | | | | [place] [address] | | | | | | [phone] | | | | | | | | +--------+---------+ + + + documented as of this encounter Visit Diagnoses Not on filedocumented in this encounter"
--- OUTSIDE RECORDS SUMMARY | ~2019-06-01 | XMS | Encounter Summary ---
Demographics + + + | Address | [address] | | | [place] [address] | + + + | Home Phone [...] Providers + +------+ + | Care Media Associate Name | Role | Phone | [...] Visit | Medicine Clinic at | R, ADJUNCT ENGLISH INSTRUCTOR [address] | Dx); Rectal cancer | | | | [facility] 4th Floor [address] [facility] [address] | ([facility]); Former | | | | [address] | [place], [place] | smoker; Anxiety and | | | | Mailcode: [facility] | [address] | depression; Other | | | | [facility] | [phone] | chronic pain; | | | | and Healing, | | Hypertension, | | | | Building 1,4th Floor | | unspecified type; | | | | [place], [place] | | Diabetes mellitus | | | | [address] | | screening | | | | [phone] | | | +--------+---------+ + + + [...] | | IV | 07/02/17; 1217 | DISHWASHING MACHINE OPERATOR | | +--------+ + + + | [...] or walk. Surgery check-in location: Admitting - [facility], ninth floor [facility] Surgery Check in Time: The Preoperative [...] it is after office hours, call the [facility] mottle lay up operator at [phone] and ask them to page him or [...] Chronic low back/left LQ pain - takes [place] 5-325, 1-2 tabs/day Bone spurs in neck [...] fluid and anterior hernia) - 1-2 tabs [place] as needed daily) Chron ic pain > [...] breast Hypertension Mother Heart Attack Father from [place] at age 52 Diabetes Father Heart Attack [...] Chronic low back/left LQ pain - takes [place] 5-325, 1-2 tabs/day. Continue as needed. Bone [...] to this patient's care. Zeny Riley NP [facility] PREOPERATIVE MEDICINE CLINIC AT [facility] 4TH FLOOR [address] [facility] [place] [address] I counseled the pt regarding [...] | | | | | Suzy Hines [place], | | | | | | [place] [address] | | | | | | [phone] | | | | | | | | +--------+---------+ + + + documented as of this encounter Procedures + +--------+ + + + | Procedure Name | Priori | Date/Time | Associated Diagnosis | Comments | | | ty | | | | + +--------+ + + + | DE COLLECTION VENOUS | Routin | 06/13/2017 | [...] DEPT OF | [address] | [place], [place] | | | CARDIOLOGY | [address] | [address] | | + + + + + [...] [facility] | [address] | [place] [address] | | | SERVICES, | [address] [...] [facility] | [address] | [place] [address] | | | SERVICES, CORE | SUZY [...] | [facility] | | considered for monitoring termination clerk glycemic control in patients with: | LABORATORY [...] [facility] | [address] | [place] [address] | | | SERVICES, SPECIAL | [address] [...] | + + + + + | [employer] | [address] | [place] [address] | | | SERVICES, | [address] [...] [facility] | [address] | [place] [address] | | | SERVICES, | [address] [...] | + + + + + | [facility] | [address] | [place] [address] | | | CAR TELLO | SUZY [...] | | | LABORATORY | | | UKRAINIAN | | | SERVICES, | | | [...] + + + + + | [facility] | [address] | [place] [address] | | | SERVICES, CAR | SUZY [...]
--- OUTSIDE RECORDS SUMMARY | ~2019-06-01 | XMS | Encounter Summary ---
Demographics + + + | Address | [address] | | | [place] [address] | + + + | Home Phone [...] Team Providers + +------+ + | Care Vacuum Drum Drier Operator Name | Role | Phone | [...] | | | | Pre-operativ | [address] | | | | | | e | [address] | | | | | | cardiovascul | [place], | | | | | | ar | [place] | | | | | | examination | [address] | | | | | | Tobacco | Phone: | | | | | | abuse | [phone] | | | | | | Dyspnea, | Fax: | | | | | | unspecified | [phone] | | | | | | type [...] | | | | | | at [facility] [address] | | | | | | [address] Mailcode: | | | | | | [address] | | | | | | Health and Healing, | | | | | | Building 1 | | | | | | [place], [place] | | | | | | [address] | | | | | | [phone] | | | +--------+ + + + [...] | | | | | [place], | | | | | | [place] [address] | | | | | | [phone] | | | | | | | [...] formed At | + +---- + | [facility] | [facility] DEPT OF | | [facility] Adult Echocardiography Laboratory [address] | [facility] | | [place], [place] [address] Ph: | | | Pt Name: JENN BYRNES | | | Study Date/Time 10/06/2016 / 8:59:07 AMMRN: [id number] | | | Most recent prior: -Acc #: [id number] | | | No. previous echos: 0DOB: 1960 55 years Heart Rate: | | | 78 bpmHeight: 63.0 in Blood | | | Pressure: 131/69 mm/HgWeight: 142.0 lb | | | Gender: FBSA: 1.67 m2 | | | Order ID: [id number] Collection Clerk: Brandon Hwang MA, | | | [facility] Referring Provider: Brittany Rojas Location: | [...] Report electronically signed by: | | | [id number] Cole Chávez MD (10/06/2016, 10:21:24 AM)REPORT | | | [id number] HOSP=PO REGION=A0 Final | | | cm [...] | | | |Report electronically signed by: [id number] Cole Chávez MD (10/06/2016, 10:21:24 | | |AM) | | |REPORT [id number] HOSP=PO REGION=A0 | | | | | | | | | | | | Final | | + +---- + + + | Procedure Note | + + | Interface, Cardiology Results - 10/06/2016 10:21 AM [facility] | | [facility] [address] [place] [address] | | [place], [place] [address] Pt Name: JENN | | BRITTANY BYRNES Study Date/Time 10/06/2016 / 8:59:07 AMMRN: [id number] | | Most recent prior: -Acc #: [id number] No. previous echos: 0DOB: | | 1960 55 years Heart Rate: 78 bpmHeight: 63.0 in Blood | | Pressure: 131/69 mm/HgWeight: 142.0 lb Gender: FBSA: | | 1.67 m2 Order ID: [id number] Collection Clerk: Brandon Hwang MA, | | RDCSReferring Provider: Brittany Rojas Location: [facility] Performed: | | 2D, Color [...] | indexed values Report electronically signed by: [id number] Cole Chávez MD | | (10/06/2016, 10:21:24 AM)REPORT [id number] HOSP=PO REGION=A0 Final | |ventricular ejection fraction [...] | | | |Report electronically signed by: [id number] Cole Chávez MD (10/06/2016, 10:21:24 | |AM) | |REPORT [id number]=[id number] HOSP=PO REGION=A0 | | | | | | | | Final | + + + + + + + | Performing | Address | City/State/[facility] | Phone Number | | Organization | | | | + + + + + | [facility] | [address] | [place], [place] | | | CARDIOLOGY | [address] | [address] | | + + + + + documented in this encounter Visit Diagnoses + + | Diagnosis | + + | Pre-operative cardiovascular examination | + + | Tobacco abuse Tobacco use disorder | + + | Dyspnea, unspecified type | + + | Aortic systolic murmur on examination | + + documented in this encounter"
--- OUTSIDE RECORDS SUMMARY | ~2019-06-01 | XMS | Encounter Summary ---
Demographics + + + | Address | [address] | | | [place] [address] | + + + | Home Phone [...] Team Providers + +------+ + | Care Pl Sql Programmer Name | Role | Phone | [...] | | 2017 | | Center at [facility] [address] | [address] | Review | | | | [address] | Amita Hines [place], | | | | | Mailcode: [place] | [place] [address] | | | | | for Health and | [phone] | | | | | [facility] 2 | | | | | | [place], [place] | | | | | | [address] | | | | | | [phone] | | | +--------+ + + + [...] | | | | | Amita Hines [place], | | | | | | [place] [address] | | | | | | [phone] | | | | | | | | +--------+---------+ + + + documented as of this encounter Visit Diagnoses Not on filedocumented in this encounter"
--- OUTSIDE RECORDS SUMMARY | ~2019-06-01 | XMS | Encounter Summary ---
Demographics + + + | Address | [address] | | | [place] [address] | + + + | Home Phone [...] Providers + +------+ + | Care Safety Admin Assistant Name | Role | Phone | [...] | [address] | Amita Hines [place], | | | | | Mailcode: [place] | [place] [address] | | | | | for Health and | [phone] | | | | | [facility] 2 | | | | | | [place], [place] | | | | | | [address] | | | | | | [phone] | | | +--------+---------+ + + + [...] rectal bleeding on 07/19/16 went to the [facility] ED CT abdomen/pelvis with IV contrast [...] cm from anal verge presented at the [facility] Multidisciplinary GI Oncology Conference [...] to Mendoza pouch staple line presented at [facility] Multidisciplinary GI Oncology Conference [...] MRI ([facility], 05/17/17) close to pelvic sidewall [facility] Multidisciplinary GI Oncology Conference [...] with primary anast omosis, placement of a 19-Israeli Albert drain through the right lower quadrant [...] wit h primary anastomosis, placement of a 19-Israeli Albert drain through the right lower quadrant [...] Return/Re-evaluation patient, I spent 13 minutes of yeag-ls-dbqs time, of which m ore than half the time was spent in counseling. 4 minute document review [facility] umented in this encounter Plan of Treatment +--------+---------+ + + + | Date | Type | Specialty | Care Team | Description | +--------+---------+ + + + | 06/18/ | Office | Surgery | Ailyn Wolff MD | | | 2018 | Visit | | [address] | | | | | | Amita Hines [place], | | | | | | [place] [address] | | | | | | [phone] | | | | | | | | +--------+---------+ + + + documented as of this encounter Visit Diagnoses + + | Diagnosis | + + | 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
--- OUTSIDE RECORDS SUMMARY | ~2019-06-01 | XMS | Encounter Summary ---
[...] Team Providers + +------+ + | Care Starch Cooker Name | Role | Phone | + [...] | | 2017 | | Center at [facility] [address] | [address] | Review | | | | [address] | Amita Hines [place], | | | | | Mailcode: [place] | [place] [address] | | | | | for Health and | [phone] | | | | | [facility] 2 | | | | | | [place], [place] | | | | | | [address] | | | | | | [phone] | | | +--------+ + + + [...] | | | | | Amita Hines [place], | | | | | | [place] [address] | | | | | | [phone] | | | | | | | | +--------+---------+ + + + documented as of this encounter Visit Diagnoses Not on filedocumented in this encounter"
--- OUTSIDE RECORDS SUMMARY | ~2019-06-01 | XMS | Encounter Summary ---
Demographics + + + | Address | [address] | | | [place] [address] | + + + | Home Phone [...] Team Providers + +------+ + | Care Alliance Manager Name | Role | Phone | [...] | | | | | Amita Hines [place], | | | | | | [place] [address] | | | | | | [phone] | | | | | | | | +--------+---------+ + + + documented as of this encounter Visit Diagnoses Not on filedocumented in this encounter"
--- OUTSIDE RECORDS SUMMARY | ~2019-06-01 | XMS | Encounter Summary ---
Demographics + + + | Address | [address] | | | [place] [address] | + + + | Home Phone [...] Team Providers + +------+ + | Care Gore Maker Name | Role | Phone | [...] 2019 | | Center at [facility] [address] | [address] | Received | | | | [address] | Amita Hines [place], | | | | | Mailcode: [place] | [place] [address] | | | | | for Health and | [phone] | | | | | [facility] 2 | | | | | | [place], [place] | | | | | | [address] | | | | | | [phone] | | | +--------+ + + + [...] | | | | | Amita Hines [place], | | | | | | [place] [address] | | | | | | [phone] | | | | | | | | +--------+---------+ + + + documented as of this encounter Visit Diagnoses Not on filedocumented in this encounter"
--- OUTSIDE RECORDS SUMMARY | ~2019-06-01 | XMS | Encounter Summary ---
Demographics + + + | Address | [address] | | | [place] [address] | + + + | Home Phone [...] Team Providers + +------+ + | Care Putter In Name | Role | Phone | + +------+ + | Kristian Anderson DO | PCP | | + +------+ + Encounter Details +--------+ + + + + | Date | Type | Department | Care Team | Description | +--------+ + + + + | 06/28/ | Telephone | Digestive Health | Ailyn Wolff MD | | | 2018 | | [place] at [facility] [address] | [address] | | | | | [address] | Amita Hines [place], | | | | | Mailcode: [place] | [place] [address] | | | | | for Health and | [phone] | | | | | [place] [address] | | | | | | [place], [place] | | | | | | [address] | | | | | | [phone] | | | +--------+ + + + [...] 06/18/ | Office | Surgery | Ailyn Wloff MD | | | 2019 | Visit | | [address] | | | | | | Amita Hines [facility] | | | | | | [place] [address] | | | | | | [phone] | | | | | | | | +--------+---------+ + + + documented as of this encounter Visit Diagnoses Not on filedocumented in this encounter"
--- OUTSIDE RECORDS SUMMARY | ~2019-06-01 | XMS | Encounter Summary ---
Demographics + + + | Address | [address] | | | [place] [address] | + + + | Home Phone [...] Providers + +------+ + | Care Assembly Adjuster Name | Role | Phone | [...] Center at [facility] [address] | [address] | | | | | [address] | Amita Hines [place], | | | | | Mailcode: [place] | [place] [address] | | | | | for Health and | [phone] | | | | | [facility] 2 | | | | | | [place], [place] | | | | | | [address] | | | | | | [phone] | | | +--------+ + + + [...] | | | | | Amita Hines [place], | | | | | | [place] [address] | | | | | | [phone] | | | | | | | | +--------+---------+ + + + documented as of this encounter Visit Diagnoses Not on filedocumented in this encounter"
--- OUTSIDE RECORDS SUMMARY | ~2019-06-01 | XMS | Encounter Summary ---
Demographics + + + | Address | [address] | | | [place] [address] | + + + | Home Phone [...] Team Providers + +------+ + | Care Sheriffs Officer Name | Role | Phone | [...] 2017 | | Center at [facility] [address] | [address] | Received (Images | | | | [address] | Park [facility], | requested 10/24/16 | | | | Mailcode: [place] | [place] [address] | [facility]) | | | | for Health and | [phone] | | | | | [facility] 2 | | | | | | [place], [place] | | | | | | [address] | | | | | | [phone] | | | +--------+ + + + [...] | | | | | Amita Hines [place], | | | | | | [place] [address] | | | | | | [phone] | | | | | | | | +--------+---------+ + + + documented as of this encounter Visit Diagnoses Not on filedocumented in this encounter"
--- OUTSIDE RECORDS SUMMARY | ~2019-06-01 | XMS | Encounter Summary ---
Demographics + + + | Address | [address] | | | [place] [address] | + + + | Home Phone [...] Providers + +------+ + | Care Costume Designer Name | Role | Phone | [...] | | 2019 | | Center at [facility] [address] | [address] | Review | | | | [address] | Amita Hines [place], | | | | | Mailcode: [place] | [place] [address] | | | | | for Health and | [phone] | | | | | [facility] 2 | | | | | | [place], [place] | | | | | | [address] | | | | | | [phone] | | | +--------+ + + + [...] | | | | | Amita Hines [place], | | | | | | [place] [address] | | | | | | [phone] | | | | | | | | +--------+---------+ + + + documented as of this encounter Visit Diagnoses Not on filedocumented in this encounter"
--- OUTSIDE RECORDS SUMMARY | ~2019-06-01 | XMS | Encounter Summary ---
Demographics + + + | Address | [address] | | | [place] [address] | + + + | Home Phone [...] Team Providers + +------+ + | Care Imaging Technician Name | Role | Phone | [...] | | [address] | Amita Hines [place], | | | | | Mailcode: [place] | [place] [address] | | | | | for Health and | [phone] | | | | | [facility] 2 | | | | | | [place], [place] | | | | | | [address] | | | | | | [phone] | | | +--------+ + + + [...] | | | | | Amita Hines [place], | | | | | | [place] [address] | | | | | | [phone] | | | | | | | | +--------+---------+ + + + documented as of this encounter Visit Diagnoses Not on filedocumented in this encounter"
--- OUTSIDE RECORDS SUMMARY | ~2019-06-01 | XMS | Encounter Summary ---
Demographics + + + | Address | [address] | | | [place] [address] | + + + | Home Phone [...] Team Providers + +------+ + | Care Oracle Etl Developer Name | Role | Phone | [...] | | | | MR RECTAL | [place], [place] | Mailcode: | | | | | [place] | [address] | [address] | | | | | MRI, PELVIS, | Phone: | [facility] | | | | | COMBO | [phone] | Research | | | | | | Fax: | Center | | | | | | [phone] | [place], [place] | | | | | | | [address] | | | | | | | Phone: | | | | | | | [phone] | | | | | | | Fax: | | | | | | | [phone] | +--------+--------+ + + + + Reason [...] | | | | MR RECTAL | [facility] [place] | Mailcode: | | | | | [place] | [address] | [address] | | | | | MRI, PELVIS, | Phone: | [place] | | | | | COMBO | [phone] | Research | | | | | | Fax: | Center | | | | | | [phone] | [place], [place] | | | | | | | [address] | | | | | | | Phone: | | | | | | | [phone] | | | | | | | Fax: | | | | | | | [phone] | +--------+--------+ + + + + Encounter Details +--------+ + + + + | Date | Type | Department | Care Team | Description | +--------+ + + + + | 10/05/ | Hospital | [facility] | Ailyn Wolff MD | | | 2017 | Encounter | [place] at | [address] | | | | | [place] [address] [address] | Amita Hines [place], | | | | | [address] | [place] [address] | | | | | [place], [place] | [phone] | | | | | [address] | | | | | | [phone] | | | +--------+ + + + [...] | | | | | Amita Hines [place], | | | | | | [place] [address] | | | | | | [phone] | | | | | | | [...] + + | [facility] | [address] | [place] [address] | [phone] | | IMAGING, POINT OF | | [...]
--- OUTSIDE RECORDS SUMMARY | ~2019-06-01 | XMS | Encounter Summary ---
Demographics + + + | Address | [address] | | | [place] [address] | + + + | Home Phone [...] Team Providers + +------+ + | Care Maternity Nurse Name | Role | Phone | [...] Rd | | | | | | [place], [place] | | | | | | [address] | | | +--------+ + + + [...] | | | | | Amita Hines [facility] | | | | | | [place] [address] | | | | | | [phone] | | | | | | | [...]
--- OUTSIDE RECORDS SUMMARY | ~2019-06-01 | XMS | Encounter Summary ---
Demographics + + + | Address | [address] | | | [place] [address] | + + + | Home Phone [...] Providers + +------+ + | Care General Road Supervisor Name | Role | Phone | [...] Outside Records | | 2017 | | [place] at [facility] [address] | [address] | Received (UA | | | | [address] | Amita Hines [place], | 07/14/2017) | | | | Mailcode: [place] | [place] [address] | | | | | for Health and | [phone] | | | | | [facility] 2 | | | | | | [place], [place] | | | | | | [address] | | | | | | [phone] | | | +--------+ + + + [...] | | | | | | [place] [address] | | | | | | [phone] | | | | | | | | +--------+---------+ + + + documented as of this encounter Visit Diagnoses Not on filedocumented in this encounter"
--- OUTSIDE RECORDS SUMMARY | ~2019-06-01 | XMS | Encounter Summary ---
Demographics + + + | Address | [address] | | | [place] [address] | + + + | Home Phone [...] Team Providers + +------+ + | Care Corporate Physical Security Supervisor Name | Role | Phone | [...] | 2017 | on | Center at [facility] [address] | [address] | (GI Oncology | | | | [address] | Amita Hines [place], | Planning Conference) | | | | Mailcode: [place] | [place] [address] | | | | | for Health and | [phone] | | | | | [facility] 2 | | | | | | [place], [place] | | | | | | [address] | | | | | | [phone] | | | +--------+ + + + [...] | | | | | [place], | | | | | | [place] [address] | | | | | | [phone] | | | | | | | | +--------+---------+ + + + documented as of this encounter Visit Diagnoses Not on filedocumented in this encounter"
--- OUTSIDE RECORDS SUMMARY | ~2019-06-01 | XMS | Encounter Summary ---
Demographics + + + | Address | [address] | | | [place] [address] | + + + | Home Phone [...] Team Providers + +------+ + | Care Epic Professional Name | Role | Phone | [...] findings, | | 2017 | | at [facility] [address] | WEN Gutiérrez [address] | teaching, guidance, | | | | [address] Mailcode: | [address] Brig[address] [facility], | and counseling | | | | [address] | [place] [address] | | | | | Health and Healing, | [phone] | | | | | [facility] | | | | | | Floor [place], [place] | | | | | | [address] | | | | | | [phone] | | | +--------+ + + + [...] | | | | | Amita Hines [place], | | | | | | [place] [address] | | | | | | [phone] | | | | | | | | +--------+---------+ + + + documented as of this encounter Visit Diagnoses Not on filedocumented in this encounter"
--- OUTSIDE RECORDS SUMMARY | ~2019-06-01 | XMS | Encounter Summary ---
Demographics + + + | Address | [address] | | | [place] [address] | + + + | Home Phone [...] Team Providers + +------+ + | Care Cutter And Paster Press Clippings Name | Role | Phone | + +------+ + | Kristian Anderson DO | PCP | | + +------+ + Encounter Details +--------+ + + + + | Date | Type | Department | Care Team | Description | +--------+ + + + + | 06/30/ | Procedure | 6A Intra Op [facility] | | | | 2017 | Pass | [facility] | | | | | | Admitting Desk | | | | | | Located on the 9th | | | | | | floor [address] [facility] | | | | | | [address] | | | | | | [place], [place] | | | | | | [address] | | | +--------+ + + + [...] | | | | | Amita Hines [place], | | | | | | [place] [address] | | | | | | [phone] | | | | | | | | +--------+---------+ + + + documented as of this encounter Visit Diagnoses Not on filedocumented in this encounter"
--- OUTSIDE RECORDS SUMMARY | ~2019-06-01 | XMS | Encounter Summary ---
Demographics + + + | Address | [address] | | | [place] [address] | + + + | Home Phone [...] Team Providers + +------+ + | Care Sr Account Executive Name | Role | Phone | [...] | | | | CONSULT TO | [place], [place] | Mailcode: | | | | | GI | [address] | [id number] | | | | | PROCEDURE | Phone: | [place] | | | | | UNIT: | [phone] | [address] | | | | | COLONOSCOPY | Fax: | [place], | | | | | | [phone] | [place] [address] | | | | | | | Phone: | | | | | | | [phone] | | | | | | | Fax: | | | | | | | [phone] | + +--------+ + + + + [...] | | | | CT CHEST, | [place], [place] | | | | | | ABDOMEN AND | [address] | | | | | | PELVIS W IV | Phone: | | | | | | CONTRAST | [phone] | | | | | | | Fax: | | | | | | | [phone] | | +--------+--------+ + + + + [...] | | | | Epic Dept | [address] | | | | | | | [address] | | | | | | | Amita Hines | | | | | | | [place], [place] | | | | | | | [address] | | | | | | | Phone: | | | | | | | [phone] | | | | | | | Fax: | | | | | | | [phone] | +--------+--------+ + + + + Encounter Details +--------+---------+ + + + | Date | Type | Department | Care Team | Description | +--------+---------+ + + + | 05/29/ | Office | Digestive Health | Ailyn Wolff MD | CA of rectum (HCC) | | 2018 | Visit | [place] at [facility] [address] | [address] | (Primary Dx) | | | | [address] | Amita Hines [place], | | | | | Mailcode: [place] | [place] [address] | | | | | for Health and | [phone] | | | | | [facility] 2 | | | | | | [place], [place] | | | | | | [address] | | | | | | [phone] | | | +--------+---------+ + + + [...] External order for CT at [facility] in [place] in June,. I spoke to Marty Thacker. [...] anal verge presented at the [facility] Multidisciplinary GI Oncology Conference on 10/07/16 diagnosis: [...] pouch staple line presented at [facility] Multidisciplinary GI Oncology Conference on 03/10/17. Given [...] 05/17/17) close to pelvic sidewall [facility] Multidisciplinary GI Oncology Conference (06/02/17) Recommendations with [...] External order for CT at [facility] in [place] in June,. I spoke to Marty Kirstie. [...] Return/Re-evaluation patient, I spent 20 minutes of cdfw-xw-lsdv time, of which m ore than half [...] | | 2018 | Visit | | [address] | | | | | | Amita Hines [place], | | | | | | [place] [address] | | | | | | [phone] | | | | | | | [...] [facility] | [address] | [place] [address] | | | SERVICES, CORE | [address] | | | + + + + + documented in this encounter Visit Diagnoses + + | Diagnosis | + + | 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
--- OUTSIDE RECORDS SUMMARY | ~2019-06-01 | XMS | Encounter Summary ---
Demographics + + + | Address | [address] | | | [place] [address] | + + + | Home Phone [...] Team Providers + +------+ + | Care Leather Stamper Name | Role | Phone | + [...] | | | | Leyla Dept | [address] | | | | | | | [address] | | | | | | | Suzy Hines | | | | | | | [place], [place] | | | | | | | [address] | | | | | | | Phone: | | | | | | | [phone] | | | | | | | Fax: | | | | | | | [phone] | +--------+--------+ + + + + Encounter Details +--------+---------+ + + + | Date | Type | Department | Care Team | Description | +--------+---------+ + + + | 08/28/ | Office | Digestive Health | Ailyn Wolff MD | CA of rectum (HCC) | | 2019 | Visit | [place] at [facility] [address] | [address] | (Primary Dx) | | | | [address] | Suzy Hines [place], | | | | | Mailcode: [place] | [place] [address] | | | | | for Health and | [phone] | | | | | Healing, Building 2 | | | | | | [place], [place] | | | | | | [address] | | | | | | [phone] | | | +--------+---------+ + + + [...] on 07/19/16 went to the [facility] ED CT abdomen/pelvis with IV contrast [...] (10/05/16) no liver metastases rigid proctoscopy by ky (10/05/16) 6 cm from anal verge presented at the [facility] Multidisciplinary GI Oncology Conference on 10/07/16 [...] to Mendoza pouch staple line presented at [facility] Multidisciplinary GI Oncology Conference on 03/10/17. [...] MRI ([facility], 05/17/17) close to pelvic sidewall [facility] Multidisciplinary GI Oncology Conference (06/02/17) Recommendations [...] resection with Primary anastomosis, placement of a 19-Omani Albert drain through the right lower quadrant [...] resection with primary anastomosis, placement of a 19-Omani Albert drain through the right lower quadrant [...] family h istory, and social history in [facility]. Objective: BP 148/91 | Pulse 82 [...] Return/Re-evaluation patient, I spent 13 minutes of qfww-nj-huts time, of which m ore than half [...] | | | | | Suzy Hines [place], | | | | | | [place] [address] | | | | | | [phone] | | | | | | | [...] + + + + + | [facility] | [address] | [place] [address] | | | SERVICES, CORE | [address] | | | + + + + + documented in this encounter Visit Diagnoses + + | Diagnosis | + + | 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
--- OUTSIDE RECORDS SUMMARY | ~2019-06-01 | XMS | Encounter Summary ---
Demographics + + + | Address | [address] | | | [place] [address] | + + + | Home Phone [...] Team Providers + +------+ + | Care Margarine Churn Operator Name | Role | Phone | [...] | | | | CT CHEST, | [place], [place] | Mailcode: | | | | | ABDOMEN AND | [address] | [address] [facility] | | | | | PELVIS W IV | Phone: | Hospital | | | | | CONTRAST [place] | [phone] | [place], [place] | | | | | CAT SCAN OF | Fax: | [address] | | | | | CHEST | [phone] | Phone: | | | | | CONTRAST [place] | | [phone] | | | | | CT | | Fax: | | | | | ABDOMEN&PELV | | [phone] | | | | | IS | [...] | | | | CT CHEST, | [place], [place] | Mailcode: | | | | | ABDOMEN AND | [address] | [address] [facility] | | | | | PELVIS W IV | Phone: | Hospital | | | | | CONTRAST [place] | [phone] | [place], [place] | | | | | CAT SCAN OF | Fax: | [address] | | | | | CHEST | [phone] | Phone: | | | | | CONTRAST [place] | | [phone] | | | | | CT | | Fax: | | | | | ABDOMEN&PELV | | [phone] | | | | | IS | [...] | 2017 | Encounter | Services at [facility] | [address] | | | | | [address] | Amita Hines [place], | | | | | Amita Hines Mailcode: | [place] [address] | | | | | [address] [facility] | [phone] | | | | | [place], [place] | | | | | | [address] | | | | | | [phone] | | | +--------+ + + + [...] | | | | | Amita Hines [place], | | | | | | [place] [address] | | | | | | [phone] | | | | | | | [...]
--- OUTSIDE RECORDS SUMMARY | ~2019-06-01 | XMS | Encounter Summary ---
Demographics + + + | Address | [address] | | | [place] [address] | + + + | Home Phone [...] Providers + +------+ + | Care Helicopter Repairer Name | Role | Phone | [...] | | | | CT ABDOMEN | [place], [place] | Mailcode: | | | | | AND PELVIS | [address] | [address] [facility] | | | | | W IV | Phone: | Hospital | | | | | CONTRAST [place] | [phone] | [place], [place] | | | | | [place] | Fax: | [address] | | | | | ABDOMEN&PELV | [phone] | Phone: | | | | | IS | | [phone] | | | | | W/CONTRAST | | Fax: | | | | | | | [phone] | +--------+--------+ + + + + Reason [...] | | | | CT ABDOMEN | [place], [place] | Mailcode: | | | | | AND PELVIS | [address] | [address] [facility] | | | | | W IV | Phone: | Hospital | | | | | CONTRAST [place] | [phone] | [facility] [place] | | | | | [place] | Fax: | [address] | | | | | ABDOMEN&PELV | [phone] | Phone: | | | | | IS | | [phone] | | | | | W/CONTRAST | | Fax: | | | | | | | [phone] | +--------+--------+ + + + + Encounter Details +--------+ + + + + | Date | Type | Department | Care Team | Description | +--------+ + + + + | 10/05/ | Hospital | Radiology/Imaging | Ailyn Wolff MD | | | 2017 | Encounter | Lab at [facility] [address] | [address] | | | | | [place] Mailcode: | Amita Hines [place], | | | | | [facility] | [place] [address] | | | | | Health and Healing, | [phone] | | | | | [address] | | | | | | [place], [place] | | | | | | [address] | | | | | | [phone] | | | +--------+ + + + [...] | | | | | Amita Hines [place], | | | | | | [place] [address] | | | | | | [phone] | | | | | | | [...]
--- OUTSIDE RECORDS SUMMARY | ~2019-06-01 | XMS | Encounter Summary ---
Demographics + + + | Address | [address] | | | [place] [address] | + + + | Home Phone [...] + +------+ + | Care Mobile Application Architect Name | Role | Phone | [...] | | 2017 | | Center at [facility] [address] | [address] | Received (MRI) | | | | [address] | Amita Hines [place], | | | | | Mailcode: [place] | [place] [address] | | | | | for Health and | [phone] | | | | | [facility] 2 | | | | | | [place], [place] | | | | | | [address] | | | | | | [phone] | | | +--------+ + + + [...] | | | | | Amita Hines [place], | | | | | | [place] [address] | | | | | | [phone] | | | | | | | | +--------+---------+ + + + documented as of this encounter Visit Diagnoses Not on filedocumented in this encounter"
--- OUTSIDE RECORDS SUMMARY | ~2019-06-01 | XMS | Encounter Summary ---
Demographics + + + | Address | [address] | | | [place] [address] | + + + | Home Phone [...] Team Providers + +------+ + | Care Export Traffic Department Manager Name | Role | Phone [...] 2018 | | Center at [facility] [address] | [address] | and Ostomy Nurse) | | | | [address] | Amita Hines [place], | | | | | Mailcode: [place] | [place] [address] | | | | | for Health and | [phone] | | | | | [facility] 2 | | | | | | [place], [place] | | | | | | [address] | | | | | | [phone] | | | +--------+ + + + [...] | | | | | Amita Hines [place], | | | | | | [place] [address] | | | | | | [phone] | | | | | | | | +--------+---------+ + + + documented as of this encounter Visit Diagnoses Not on filedocumented in this encounter"
--- OUTSIDE RECORDS SUMMARY | ~2019-06-01 | XMS | Encounter Summary ---
Demographics + + + | Address | [address] | | | [place] [address] | + + + | Home Phone [...] Team Providers + +------+ + | Care Development Specialist Name | Role | Phone | + +------+ + | Kristian Anderson DO | PCP | | + +------+ + Encounter Details +--------+ + + + + | Date | Type | Department | Care Team | Description | +--------+ + + + + | 12/09/ | Procedure | Diagnostic Imaging | | | | 2016 | Pass | Services at [facility] | | | | | | [address] | | | | | | Amita Hines Mailcode: | | | | | | [address] | | | | | | [facility] | | | | | | [place], [place] | | | | | | [address] | | | | | | [phone] | | | +--------+ + + + [...] | | | | | | [place] [address] | | | | | | [phone] | | | | | | | | +--------+---------+ + + + documented as of this encounter Visit Diagnoses Not on filedocumented in this encounter"
--- OUTSIDE RECORDS SUMMARY | ~2019-06-01 | XMS | Encounter Summary ---
Demographics + + + | Address | [address] | | | [place] [address] | + + + | Home Phone [...] Team Providers + +------+ + | Care Tar Roofer Name | Role | Phone | + +------+ + | Kristian Anderson DO | PCP | | + +------+ + Encounter Details +--------+ + + + + | Date | Type | Department | Care Team | Description | +--------+ + + + + | 01/03/ | Document-Sc | Health Information | Unknown . | | | 2017 | anned | Services [address] | | | | | | [address] | | | | | | Mailcode: OP[address]A | | | | | | [facility] | | | | | | [place], [place] | | | | | | [address] | | | | | | [phone] | | | +--------+ + + + [...] | | | | | Amita Hines [place], | | | | | | [place] [address] | | | | | | [phone] | | | | | | | [...]
--- OUTSIDE RECORDS SUMMARY | ~2019-06-01 | XMS | Encounter Summary ---
Demographics + + + | Address | [address] | | | [place] [address] | + + + | Home Phone [...] Team Providers + +------+ + | Care Pillow Agent Name | Role | Phone | [...] | | 2018 | | Center at [facility] [address] | [address] | Review | | | | [address] | Amita Hines [place], | | | | | Mailcode: [place] | [place] [address] | | | | | for Health and | [phone] | | | | | [facility] 2 | | | | | | [place], [place] | | | | | | [address] | | | | | | [phone] | | | +--------+ + + + [...] | | | | | Amita Hines [place], | | | | | | [place] [address] | | | | | | [phone] | | | | | | | | +--------+---------+ + + + documented as of this encounter Visit Diagnoses Not on filedocumented in this encounter"
--- OUTSIDE RECORDS SUMMARY | ~2019-06-01 | XMS | Encounter Summary ---
Demographics + + + | Address | [address] | | | [place] [address] | + + + | Home Phone [...] Team Providers + +------+ + | Care Zipper Setter Chainstitch Name | Role | Phone | + +------+ + | Silvioct Kristian | PCP | | + +------+ + Encounter Details +--------+------+ + + + | Date | Type | Department | Care Team | Description | +--------+------+ + + + | 11/27/ | Lab | Laboratory at [facility] | | Rectal cancer (HCC) | | 2019 | | [address] | | | | | | [place], [place] | | | | | | [address] | | | | | | [phone] | | | +--------+------+ + + + [...] | | | | | Suzy Hines [place], | | | | | | [place] [address] | | | | | | [phone] | | | | | | | [...] | + + + + + | [facility] | [address] | [place] [address] | | | SERVICES, CORE | [address] | | | + + + + + documented in this encounter Visit Diagnoses + + | Diagnosis | + + | Rectal cancer (HCC) Malignant neoplasm of rectum | + + documented in this encounter"
--- OUTSIDE RECORDS SUMMARY | ~2019-06-01 | XMS | Encounter Summary ---
Demographics + + + | Address | [address] | | | [place] [address] | + + + | Home Phone [...] Providers + +------+ + | Care Timber Rider Name | Role | Phone | [...] | | [address] | Amita Hines [place], | | | | | Mailcode: [place] | [place] [address] | | | | | for Health and | [phone] | | | | | [facility] 2 | | | | | | [place], [place] | | | | | | [address] | | | | | | [phone] | | | +--------+ + + + [...] | | | | | Amita Hines [place], | | | | | | [place] [address] | | | | | | [phone] | | | | | | | | +--------+---------+ + + + documented as of this encounter Visit Diagnoses Not on filedocumented in this encounter"
--- OUTSIDE RECORDS SUMMARY | ~2019-06-01 | XMS | Encounter Summary ---
Demographics + + + | Address | [address] | | | [place] [address] | + + + | Home Phone [...] Team Providers + +------+ + | Care Asbestos Shingle Inspector Name | Role | Phone | [...] | [address] | [address] [place], | | | | | Mailcode: [place] | [place] [address] | | | | | for Health and | [phone] | | | | | [facility], [facility] 2 | | | | | | [place], [place] | | | | | | [address] | | | | | | [phone] | | | +--------+---------+ + + + [...] on 07/19/16 went to the [facility] ED CT abdomen/pelvis with IV contrast [...] cm from anal verge presented at the [facility] Multidisciplinary GI Oncology Conference on 10/07/16 diagnosis: [...] to Mendoza pouch staple line presented at [facility] Multidisciplinary GI Oncology Conference on 03/10/17. Given [...] MRI ([facility], 05/17/17) close to pelvic sidewall [facility] Multidisciplinary GI Oncology Conference (06/02/17) Recommendations with [...] with primary anast omosis, placement of a 19-Brazilian Albert drain through the right lower quadrant [...] wit h primary anastomosis, placement of a 19-Brazilian Albert drain through the right lower quadrant [...] Return/Re-evaluation patient, I spent 19 minutes of rqgl-zm-seuj time, of which m ore than half [...] | | | | | Amita Hines [place], | | | | | | [place] [address] | | | | | | [phone] | | | | | | | | +--------+---------+ + + + documented as of this encounter Visit Diagnoses + + | Diagnosis | + + | 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
--- OUTSIDE RECORDS SUMMARY | ~2019-06-01 | XMS | Encounter Summary ---
Demographics + + + | Address | [address] | | | [place] [address] | + + + | Home Phone [...] Providers + +------+ + | Care Java J2Ee Software Engineer Name | Role | Phone [...] | | | | REQUEST TO | [place], [place] | [place], [place] | | | | | SURGERY | [address] | [address] | | | | | [employer] MEMBER | Phone: | Phone: | | | | | [place] | [phone] | [phone] | | | | | LAP,SURG,COL | Fax: | Fax: | | | | | ECTOMY,W/TASNEEM | [phone] | [phone] | | | | | ST [place] | | | | | | | LAP,SURG,COL | | | | | | | ECTOMY,W/TASNEEM | | | | | | | ST,W/COLOSTO | | | | | | | MY [place] | | | | | | | LAP,MBL | | | | | | | SPLNC FL [place] | | | | | | | | | | | | | | LAP,SURG,COL | | | | | | | ECTOMY,W/REM | | | | | | | VL TERM | | | | | | | ILEUM [place] | | | | | | | LAP,SURG,COL | | | | | | | ECTOMY,W/END | | | | | | | COLOST & | | | | | | | CLOSUR [place] | | | | | | | LAP,ILEO/JEJ | | | | | | | YESIKA-STOMY | | | | | | | [place] PART | | | | | | | REMOVAL | | | | | | | COLON W | | | | | | | COLOPROCTOST | | | | | | | LORI [place] PART | | | | | | | REMOVAL | | | | | | | COLON W | | | | | | | COLOPROC,COL | | | | | | | OST [place] | | | | | | | MOBILIZE | | | | | | | SPLENIC FLEX | | | | | | | [place] PART | | | | | | | REMOVAL | | | | | | | COLON W END | | | | | | | COLOSTOMY | | | | | | | [place] PART | | | | | | | REMOVAL | | | | | | | COLON W | | | | | | | OSTOMY/MUCOF | | | | | | | IST [place] | | | | | | | ILEOSTOMY/JE | | | | | | | JUNOSTOMY,NO | | | | | | | NTUBE [place] | | | | | | | REMOVE | | | | | | | VAGINA WALL, | | | | | | | PARTIAL [place] | | | | | | | REMOVE | | | | | | | VAGINA | | | | | | | TISSUE/PARTI | | | | | | | AL [place] | | | | | | | VAGINECTOMY | | | | | | | PARTIAL | | | | | | | W/NODES [place] | | | | | | | PROCTECTOMY, | | | | | | | AP | | | | | | | RESECT+OSTOM | | | | | | | Y [place] | | | | | | | PROCTECTOMY, | | | | | | | PARTIAL [place] | | | | | | | PROCTECTOMY, | | | | | | | AP | | | | | | | RESEC,PULL-T | | | | | | | HRU [place] | | | | | | | PROCTECTOMY, | | | | | | | PART,ILEAL | | | | | | | RESERV [place] | | | | | | | PROCTECTOMY, | | | | | | | A-P PULLTHRU | | | | | | | W/RESERVOIR | | | | | | | [place] | | | | | | | PROCTECTOMY, | | | | | | | COMPLT,PULL- | | | | | | | THRU,ANAST | | | | | | | [place] | | | | | | | [...] | Malignant | Marty Toledo MD | [address] | | | | | neoplasm of | [place] | [address] | | | | | rectum | SURGICAL | [place] | | | | | | CLINIC [facility] | [place], [place] | | | | | | [address] | [address] | | | | | | AVE | Phone: | | | | | | [place], | [phone] | | | | | | [place] [address] | Fax: | | | | | | Phone: | [phone] | | | | | | [phone] | | | | | | | Fax: | | | | | | | [phone] | | +--------+--------+ + + + + Encounter Details +--------+---------+ + + + | Date | Type | Department | Care Team | Description | +--------+---------+ + + + | 06/13/ | Office | Digestive Health | Ailyn Wolff MD | Rectal cancer (HCC) | | 2017 | Visit | Center at [facility] [address] | [address] | (Primary Dx); CA of | | | | [address] | [place], | rectum (HCC) | | | | Mailcode: [place] | [place] [address] | | | | | [facility] and | [phone] | | | | | [address] [address] | | | | | | [place], [place] | | | | | | [address] | | | | | | [phone] | | | +--------+---------+ + + + [...] - 06/13/2017 3:40 PM PSTPATIENT SURGERY INFORMATION [facility] General Surgery Office Toll-free: , request [facility] Surgery Date: 06/30/2017 Procedure: Low anterior resection, possible abdominoperineal resection. Surgeon Name: Dr. Ailyn Wolff MD DIRECTIONS FOR SURGERY DIET You should have clear liquids only for the entire day prior to surgery, no solid food. Kailee r liquids include anything you can see through, like water, fernando zack, lemon-mashpee soft drin ks, apple juice, tea, Gatorade/sports [...] have questions please contact the clinic at [phone], if it is after clinic h ours please call the crayon molding machine operator at [phone] and ask to speak to the Green Surgery Resident front office secretary. CAUTION! Please call the clinic if you [...] preparation, please contact the surgery office at [phone]. After hours and on weekends this number may refer you to the hospital crayon molding machine operator ([phone]); please ask to speak to the general surgery resident front office secretary for Dr Javed. MEDICATIONS You may take [...] e. Smoking is not allowed on the [facility] campus. If you are a smoker, [...] anyone by 3:00 PM please call for [id number]. PARKING Parking for patients and visitors is available in the [facility] Parking structure located across from the emergency [...] Please notify the general surgery office at [phone] as soon as possible should you nee [...] prior to your surgery. PRODUCTS CONTAINING ASPIRIN Katelyn-Russell, Anacin, Anexsia with Codeine, Andynos, Aspirin, Aspirin suppositories, Ascrip tin, Aspergum, Axotal, B-A-C, Baby Aspirin, Tony, BC Powder, Bexophene, Buffaprin, Bufferin , Buffinol, Cama-Arthritis Strength, Congespirin, Marion, Coricidin, Damason, Darvon, Dristan, Annetta-Gesic, Digel, Dolprin #3 Tablets, Donatab, Doxaphene, Duragesic, Easprin, Ecotrin, Emag rin Forte, Emiprin, Emprazil, Equagesic, Equazine M, Excedrin, Fiogesic, Fiorgen PH, Fiorice t, Fiorinal, 4-Way Cold Tablet Gemnisyn, Indocin, Liquprin, Lortab ASA, Magnaprin, Marnal, Meprobamate, Midol, Momentum, N orgesic, Finley, Orphengesic, Pabalate, P-A-C, Percodan, Presalin, Robaxasil, Roxiprin, Brian eto, Salocol SK-65 Compound, Sine-Aid, Sine-Off,, [place], Supac, Talwin Compound, Trigesic, Tolectin , Traiminicin, Vanquish, ZORprin, Zomax PRODUCTS CONTAINING IBUPROFEN Advil, Aleve, Haltran, Medipren, Midol, Motrin, Naproxyn, Nuprin, Rufen OTHER PRODUCTS WHICH MAY PROMOTE BLEEDING Vitamin E, Gingko Biloba, Marine Fatty Acids, [place]-3 Fish Oil Supplements Registration Process for all [...] rectal bleeding on 07/19/16 went to [facility] ED CT abdomen/pelvis with IV contrast [...] cm from anal verge presented at the [facility] Multidisciplinary GI Oncology Conference on 10/07/16 [...] to Mendoza pouch staple line presented at [facility] Multidisciplinary GI Oncology Conference on 03/10/17. [...] MRI ([facility], 05/17/17) close to pelvic sidewall [facility] Multidisciplinary GI Oncology Conference (06/02/17) Recommendations [...] infection , pneumonia, UTI, recurrence, DVT, PE, [place], stroke, and were discussed, she wished to proceed with the above plan. Chief Complaint: 55 y.o. female with intermittent rectal bleeding since ~2013 and tailbone pain since 07/19/17. History of Present Illness: On 10/05/16, she told me: "intermittent rectal bleeding since ~2013 She had rectal urgency and a lot of rectal bleeding on 07/19/16. [facility] ED. CT abdomen/pelvis with IV contrast (07/20/16) 11 cm complex mass in pelvis, either necrotic neoplasm or abscess She was admitted by Dr. Thcaker on 07/20/16. exploratory laparotomy, transabdominal drainage of [...] [facility]. [facility] [...] cm from anal verge presented at the [facility] Multidisciplinary GI Oncology Conference on 10/07/16 [...] fractions, 01/10/17-02/17/17. Dr. Alfaro, Radiation Oncology at [facility] in [place]. MRI pelvis (03/02/17) tumor response but circumferential [...] for the LLQ tenderness/malodorous drainage." presented at [facility] Conference on 03/10/17. [...] sidewall I again discussed her at the [facility] Mult[facility]isciplinary GI [facility]cology Conference (06/02/17) Recommendations [...] Stool in her drain. 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 20 minute document review Noelle Clifford RN - 017 3:40 PM PSTNPO after midnight, Miralax/Gatorade bowel prep with antibiotics, prevention of constipation and pain control after surgery, responsible ride home upon discharge from [facility]. Discussed pre-operative plan such as piercer calling the day before surgery to gi [...] starting with clears, need for PMC appt (NEEDLE PUNCH MACHINE OPERATOR), post-op appt (3 wk). Pt den ies further questions. I encouraged the pt to call with any questions, concerns, or new symp toms at [phone]. documented in this enco unter Plan of [...] | | | | | | [place] [address] | | | | | | [phone] | | | | | | | [...] | + + + + + | [facility] | [address] | [place] [address] | | | SERVICES, CORE | PARK [...] | | | LABORATORY | | | [place] | | | SERVICES, | | | [...] CHAPIN JASKARAN | [address] | [place] [address] | | | SERVICES, CORE | [address] [...]
--- OUTSIDE RECORDS SUMMARY | ~2019-06-01 | XMS | Encounter Summary ---
Demographics + + + | Address | [address] | | | [place] [address] | + + + | Home Phone [...] Team Providers + +------+ + | Care Buhr Mill Operator Name | Role | Phone | [...] | | | | [facility] | [place], [place] | | | | | [place] [address] | [address] | | | | | [place], [place] | | | | | | [address] | | | | | | [phone] | | | +--------+ + + + [...] | | 18 | | | | 194547, Skin prep: | | | | | | | 3M 3344 (30/mo), Adh | | | | | | | Rem HO 7760 | | | | | | | (1box/mo), Rings: HO | | | | | | | 8805 (10/mo), | | | | | | | [place]odor[place]: [place] [address] | | | | | | | (60/mo), Pwdr: CT | | | | | | | [id number] (1oz/mo), | | | | | | | Belt: Lrg (2/mo) | | | | | | | and Irrigation CO | | | | | | | [id number], Sleeve [place] | | | | | | | 199691 | | | | | + + [...] | | | | | [place], | | | | | | [place] [address] | | | | | | [phone] | | | | | | | | +--------+---------+ + + + documented as of this encounter Visit Diagnoses Not on filedocumented in this encounter"
--- OUTSIDE RECORDS SUMMARY | ~2019-06-01 | XMS | Encounter Summary ---
Demographics + + + | Address | [address] | | | [place] [address] | + + + | Home Phone [...] Team Providers + +------+ + | Care Composition Teacher Name | Role | Phone | [...] | | 2017 | | Center at [facility] [address] | [address] | Planning Conference | | | | [address] | [address] [place], | delayed) | | | | Mailcode: [place] | [place] [address] | | | | | for Health and | [phone] | | | | | [facility] 2 | | | | | | [place], [place] | | | | | | [address] | | | | | | [phone] | | | +--------+ + + + [...] | | | | | [place] [address], | | | | | | [place] [address] | | | | | | [phone] | | | | | | | | +--------+---------+ + + + documented as of this encounter Visit Diagnoses Not on filedocumented in this encounter"
--- OUTSIDE RECORDS SUMMARY | ~2019-06-01 | XMS | Encounter Summary ---
Demographics + + + | Address | [address] | | | [place] [address] | + + + | Home Phone [...] Team Providers + +------+ + | Care Musical String Maker Name | Role | Phone | [...] Rd | | | | | | [place], [place] | | | | | | [address] | | | +--------+ + + + [...] | | | | | [place], | | | | | | [place] [address] | | | | | | [phone] | | | | | | | | +--------+---------+ + + + documented as of this encounter Visit Diagnoses Not on filedocumented in this encounter"
--- OUTSIDE RECORDS SUMMARY | ~2019-06-01 | XMS | Encounter Summary ---
Demographics + + + | Address | [address] | | | [place] [address] | + + + | Home Phone [...] Providers + +------+ + | Care Advertising Intern Name | Role | Phone | [...] | | [address] | [address]mita [address] [place], (Demographics) | | | | Mailcode: [place] | [place] [address] | | | | | for Health and | [phone] | | | | | [place] [address] | | | | | | [place], [place] | | | | | | [address] | | | | | | [phone] | | | +--------+ + + + [...] | | | | | Amita H[place], | | | | | | [place] [address] | | | | | | [phone] | | | | | | | | +--------+---------+ + + + documented as of this encounter Visit Diagnoses Not on filedocumented in this encounter"
--- OUTSIDE RECORDS SUMMARY | ~2019-06-01 | XMS | Encounter Summary ---
Demographics + + + | Address | [address] | | | [place] [address] | + + + | Home Phone [...] Team Providers + +------+ + | Care Demand Manager Name | Role | Phone | [...] | | | | [facility] | [address] | | | | | | | [address] | | | | | | | [place] | | | | | | | [place], [place] | | | | | | | [address] | | | | | | | Phone: | | | | | | | [phone] | | | | | | | Fax: | | | | | | | [phone] | +--------+--------+ + + + + Encounter Details +--------+---------+ + + + | Date | Type | Department | Care Team | Description | +--------+---------+ + + + | 02/20/ | Office | Digestive Health | Ailyn Wolff MD | CA of rectum (HCC) | | 2018 | Visit | [place] [facility] [address] | [address] | (Primary Dx) | | | | [address] | Suzy [address]ines [place], | | | | | Mailcode: [place] | [place] [address] | | | | | for Health and | [phone] | | | | | [facility] 2 | | | | | | [place], [place] | | | | | | [address] | | | | | | [phone] | | | +--------+---------+ + + + [...] bleeding on 07/19/16 went to the [facility] ED CT abdomen/pelvis with IV contrast [...] resection with primary anastomosis, placement of a 19-Upper Sorbian Albert drain through the right lower quadrant [...] resection with primary anastomosis, placement of a 19-Upper Sorbian Albert drain through the right lower quadrant [...] Return/Re-evaluation patient, I spent 12 minutes of tnvy-lz-nmmz time, of which m ore than half [...] | | | | | [place], | | | | | | [place] [address] | | | | | | [phone] | | | | | | | [...] | + + + + + | [facility] | [address] | [place] [address] | | | SERVICES, CORE | [address] | | | + + + + + documented in this encounter Visit Diagnoses + + | Diagnosis | + + | 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
--- OUTSIDE RECORDS SUMMARY | ~2019-06-01 | XMS | Encounter Summary ---
Demographics + + + | Address | [address] | | | [place] [address] | + + + | Home Phone [...] Team Providers + +------+ + | Care Roll Scale Man Name | Role | Phone | + +------+ + | Kristian Anderson DO | PCP | | + +------+ + Encounter Details +--------+ + + + + | Date | Type | Department | Care Team | Description | +--------+ + + + + | 04/21/ | Procedure | 6A Intra Op [facility] | | | | 2016 | Pass | [facility] | | | | | | Admitting Desk | | | | | | Located on the 9th | | | | | | floor [address] [facility] | | | | | | [address] | | | | | | [place], [place] | | | | | | [address] | | | +--------+ + + + [...] | | | | | [place]mita [place], | | | | | | [place] [address] | | | | | | [phone] | | | | | | | | +--------+---------+ + + + documented as of this encounter Visit Diagnoses Not on filedocumented in this encounter"
--- OUTSIDE RECORDS SUMMARY | ~2019-06-01 | XMS | Encounter Summary ---
Demographics + + + | Address | [address] | | | [place] [address] | + + + | Home Phone [...] Team Providers + +------+ + | Care Coastal And Estuary Specialist Name | Role | Phone | [...] | 2018 | Encounter | Center at [facility] [address] | [address] | | | | | [address] | Amita Hines [place], | | | | | Mailcode: [place] | [place] [address] | | | | | for Health and | [phone] | | | | | [facility] 2 | | | | | | [place], [place] | | | | | | [address] | | | | | | [phone] | | | +--------+ + + + [...] | | | | | [place]mit[place] [address], | | | | | | [place] [address] | | | | | | [phone] | | | | | | | | +--------+---------+ + + + documented as of this encounter Visit Diagnoses Not on filedocumented in this encounter"
--- OUTSIDE RECORDS SUMMARY | ~2019-06-01 | XMS | Encounter Summary ---
Demographics + + + | Address | [address] | | | [place] [address] | + + + | Home Phone [...] Team Providers + +------+ + | Care Tip Inserter Name | Role | Phone | + [...] | 2018 | Encounter | Center at [facility] [address] | [address] | | | | | [address] | Amita Hines [place], | | | | | Mailcode: [place] | [place] [address] | | | | | for Health and | [phone] | | | | | [facility] 2 | | | | | | [place], [place] | | | | | | [address] | | | | | | [phone] | | | +--------+ + + + [...] | | | | | Amita Hines [place], | | | | | | [place] [address] | | | | | | [phone] | | | | | | | | +--------+---------+ + + + documented as of this encounter Visit Diagnoses Not on filedocumented in this encounter"
--- OUTSIDE RECORDS SUMMARY | ~2019-06-01 | XMS | Encounter Summary ---
Demographics + + + | Address | [address] | | | [place] [address] | + + + | Home Phone [...] | Organization | [facility] | | | and [place] | + + + | Address | Unknown | + + + | Phone | Unavailable | + + + Support + + + + + | Name | Relationship | Address | Phone | + + + + + | Lamar Phillips | ECON | [place] [address] | | + + + + + Care Team Providers + +------+ + | Care Gunnery/Ordnance Officer Name | Role | Phone | [...] WALL | | | | | [address] | [place] [address] | | | | | [place] [address] | [phone] | | | | | [phone] | | | +--------+ + + + [...]
--- OUTSIDE RECORDS SUMMARY | ~2019-06-01 | XMS | Encounter Summary ---
Demographics + + + | Address | [address] | | | [place] [address] | + + + | Home Phone [...] Team Providers + +------+ + | Care Nuclear Logging Engineer Name | Role | Phone | [...] | Discussion | | 2017 | | [place] [address] [address] | [address] | | | | | [address] | [facility], | | | | | Mailcode: [facility] [address] | | | | | for [facility] and | [phone] | | | | | [facility] 2 | | | | | | [place], [place] | | | | | | [address] | | | | | | [phone] | | | +--------+ + + + [...] | | | | | Amita H[place], | | | | | | [place] [address] | | | | | | [phone] | | | | | | | | +--------+---------+ + + + documented as of this encounter Visit Diagnoses Not on filedocumented in this encounter"
--- OUTSIDE RECORDS SUMMARY | ~2019-06-01 | XMS | Encounter Summary ---
Demographics + + + | Address | [address] | | | [place] [address] | + + + | Home Phone [...] Providers + +------+ + | Care Water Reclamation Systems Operator Name | Role | Phone | [...] Center at [facility] [address] | [address] | Review | | | | [address] | Amita Hines [place], | | | | | Mailcode: [place] | [place] [address] | | | | | for Health and | [phone] | | | | | [facility] 2 | | | | | | [place], [place] | | | | | | [address] | | | | | | [phone] | | | +--------+ + + + [...] | | | | | Amita H[place], | | | | | | [place] [address] | | | | | | [phone] | | | | | | | | +--------+---------+ + + + documented as of this encounter Visit Diagnoses Not on filedocumented in this encounter"
--- OUTSIDE RECORDS SUMMARY | ~2019-06-01 | XMS | Encounter Summary ---
Demographics + + + | Address | [address] | | | [place] [address] | + + + | Home Phone [...] Providers + +------+ + | Care Certified Welding Inspector Name | Role | Phone | [...] at [facility] [address] | [address] | Received | | | | [address] | Amita Hines [place], | | | | | Mailcode: [place] | [place] [address] | | | | | for Health and | [phone] | | | | | [facility] 2 | | | | | | [place], [place] | | | | | | [address] | | | | | | [phone] | | | +--------+ + + + [...] | | | | | | [place] [address] | | | | | | [phone] | | | | | | | | +--------+---------+ + + + documented as of this encounter Visit Diagnoses Not on filedocumented in this encounter"
--- OUTSIDE RECORDS SUMMARY | ~2019-06-01 | XMS | Encounter Summary ---
Demographics + + + | Address | [address] | | | [place] [address] | + + + | Home Phone [...] Team Providers + +------+ + | Care Bakery Deliverer Name | Role | Phone | + [...] | Prescription | | 2016 | | [place] [address] [address] | [address] | | | | | [address] | Amita Hines [place], | | | | | Mailcode: [place] | [place] [address] | | | | | for Health and | [phone] | | | | | [facility] 2 | | | | | | [place], [place] | | | | | | [address] | | | | | | [phone] | | | +--------+ + + + [...] | | 2019 | Visit | | [address] | | | | | | Amita Hines [place], | | | | | | [place] [address] | | | | | | [phone] | | | | | | | | +--------+---------+ + + + documented as of this encounter Visit Diagnoses Not on filedocumented in this encounter"
--- OUTSIDE RECORDS SUMMARY | ~2019-06-01 | XMS | Encounter Summary ---
Demographics + + + | Address | [address] | | | [place] [address] | + + + | Home Phone [...] Team Providers + +------+ + | Care Geomagnetist Name | Role | Phone | + [...] | Malignant | Marty Toledo MD | 3890 | | | | | neoplasm of | [place] | [address] | | | | | rectum | SURGICAL | [facility] | | | | | | [facility] [address] | [place], [place] | | | | | | [address] | [address] | | | | | | [address]VE | Phone: | | | | | | [place], | [phone] | | | | | | [place] [address] | Fax: | | | | | | Phone: | [phone] | | | | | | [phone] | | | | | | | Fax: | | | | | | | [phone] | | +--------+--------+ + + + + Encounter Details +--------+---------+ + + + | Date | Type | Department | Care Team | Description | +--------+---------+ + + + | 10/05/ | Office | Digestive Health | Ailyn Wolff MD | CA of rectum (HCC) | | 2017 | Visit | [place] [facility] [address] | [address] | (Primary Dx) | | | | [address] | [address] [place], | | | | | Mailcode: [place] | [place] [address] | | | | | for Health and | [phone] | | | | | [facility] 2 | | | | | | [place], [place] | | | | | | [address] | | | | | | [phone] | | | +--------+---------+ + + + [...] IV contrast from today. Present at the [facility] Multidisciplinary GI Oncology Conference on 10/07/16. Further recommendations to follow. Likely neoadjuvant chemoradiation. Plans to start chemotherapy on 10/18/16. Radiation will start a week later. Cc: rad onc in [place]. [facility]'sElectronically signed by Ailyn Wolff MD at 017 [...] rectal bleeding on 07/19/16 went to the [facility] ED CT abdomen/pelvis with IV [...] (10/05/16) no liver metastases rigid proctoscopy by ca (10/05/16) 6 cm from anal verge presented [...] IV contrast from today. Present at the [facility] Multidisciplinary GI [...] bleeding on 07/19/16. She went to the [facility]'s ED. 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 47 minute document review cc: Dr. Alfaro, Radiation Oncology at [place] in [place]. documented in this encounter Plan of Treatment +--------+---------+ + + + | Date | Type | Specialty | Care Team | Description | +--------+---------+ + + + | 06/18/ | Office | Surgery | Ailyn Wolff MD | | | 2019 | Visit | | [address] | | | | | | [place], | | | | | | [place] [address] | | | | | | [phone] | | | | | | | | +--------+---------+ + + + documented as of this encounter Procedures + +--------+ + + + | Procedure Name | Priori | Date/Time | Associated Diagnosis | Comments | | | ty | | | | + +--------+ + + + | [place] | Routin | 10/28/2016 | CA of [...]
--- OUTSIDE RECORDS SUMMARY | ~2019-06-01 | XMS | Encounter Summary ---
Demographics + + + | Address | [address] | | | [place] [address] | + + + | Home Phone [...] Team Providers + +------+ + | Care Contract Clerk Name | Role | Phone | [...] | 2018 | Encounter | Center at [facility] [address] | [address] | | | | | [address] | [address] [place], | | | | | Mailcode: [place] | [place] [address] | | | | | for Health and | [phone] | | | | | [facility] 2 | | | | | | [place], [place] | | | | | | [address] | | | | | | [phone] | | | +--------+ + + + [...] | | | | | [address] [place], | | | | | | [place] [address] | | | | | | [phone] | | | | | | | | +--------+---------+ + + + documented as of this encounter Visit Diagnoses Not on filedocumented in this encounter"
--- OUTSIDE RECORDS SUMMARY | ~2019-06-01 | XMS | Encounter Summary ---
Demographics + + + | Address | [address] | | | [place] [address] | + + + | Home Phone [...] Team Providers + +------+ + | Care Etl Application Developer Name | Role | Phone | + +------+ + | Kristian Anderson DO | PCP | | + +------+ + Encounter Details +--------+ + + + + | Date | Type | Department | Care Team | Description | +--------+ + + + + | 07/19/ | Shortage Worker | Digestive Health | Trinidad Garcia, | | | 2016 | | Center at [facility] [address] | AGACNP [address] | | | | | [address] | [place] [facility] [place] | | | | | Mailcode: [place] | [address] | | | | | for Health and | | | | | | [facility] 2 | | | | | | [facility] [place] | | | | | | [address] | | | | | | [phone] | | | +--------+ + + + [...] | | | | | [address] [place], | | | | | | [place] [address] | | | | | | [phone] | | | | | | | | +--------+---------+ + + + documented as of this encounter Visit Diagnoses Not on filedocumented in this encounter"
--- OUTSIDE RECORDS SUMMARY | ~2019-06-01 | XMS | Encounter Summary ---
Demographics + + + | Address | [address] | | | [place] [address] | + + + | Home Phone [...] Providers + +------+ + | Care Core Cleaner Name | Role | Phone | [...] | | 2019 | | Center at [facility] [address] | [address] | Review | | | | [address] | [address] [place], | | | | | Mailcode: [place] | [place] [address] | | | | | for Health and | [phone] | | | | | [facility] 2 | | | | | | [place], [place] | | | | | | [address] | | | | | | [phone] | | | +--------+ + + + [...] | | | | [address] [place], | | | | | | [place] [address] | | | | | | [phone] | | | | | | | | +--------+---------+ + + + documented as of this encounter Visit Diagnoses Not on filedocumented in this encounter"
--- OUTSIDE RECORDS SUMMARY | ~2019-06-01 | XMS | Encounter Summary ---
Demographics + + + | Address | [address] | | | [place] [address] | + + + | Home Phone [...] Providers + +------+ + | Care Visual Manager Name | Role | Phone | [...] | | [address] | [address] [place], | | | | | Mailcode: [place] | [place] [address] | | | | | for Health and | [phone] | | | | | [facility] 2 | | | | | | [place], [place] | | | | | | [address] | | | | | | [phone] | | | +--------+ + + + [...] | | | | | [address] [place], | | | | | | [place] [address] | | | | | | [phone] | | | | | | | | +--------+---------+ + + + documented as of this encounter Visit Diagnoses Not on filedocumented in this encounter"
--- OUTSIDE RECORDS SUMMARY | ~2019-06-01 | XMS | Encounter Summary ---
Demographics + + + | Address | [address] | | | [place] [address] | + + + | Home Phone [...] Team Providers + +------+ + | Care Automotive Parts Counter Person Name | Role | Phone | + [...] | | 2019 | | Center at [facility] [address] | [address] | Review | | | | [address] | [address] [place], | | | | | Mailcode: [place] | [place] [address] | | | | | for Health and | [phone] | | | | | [facility] 2 | | | | | | [place], [place] | | | | | | [address] | | | | | | [phone] | | | +--------+ + + + [...] | | | | | [address] [place], | | | | | | [place] [address] | | | | | | [phone] | | | | | | | | +--------+---------+ + + + documented as of this encounter Visit Diagnoses Not on filedocumented in this encounter"
--- OUTSIDE RECORDS SUMMARY | ~2019-06-01 | XMS | Encounter Summary ---
Demographics + + + | Address | [address] | | | [place] [address] | + + + | Home Phone [...] Team Providers + +------+ + | Care Grain Packer Name | Role | Phone | [...] [address] | | | | | | [place], [place] | | | | | | [address] | | | +--------+ + + + [...] | | | | [address] [facility] | | | | | | [place] [address] | | | | | | [phone] | | | | | | | [...]
--- NOTE | 2019-06-01 08:50 | NUR ---
SBA WITH FWW IN HALLS TO AMBULATE AFTER BREAKFAST. TOLERATED WELL. ABLETO DO 1 SMALL LAP ON MED/SURG
[~2019-06-01 09:00] MED LIST changes: +LAMICTAL25 MG PO; +MYRBETRIQ50 MG PO; +WELLBUTRIN XL300 MG PO
--- NOTE | 2019-06-01 11:00 | NUR ---
PT OUT AMBULATING WIHT PHYSICALTHERAPY IN HALLS. DENIES PAIN AT THIS TIME.
--- NOTE | 2019-06-01 11:54 | NUR ---
SPOKE WITH PATIENT IN ROOM AT LENGTH ABOUT TRANSITIONAL CARE PROGRAM. DISCUSSED MEDICARE COVERAGE, GOALS TO BE DETERMINED BY PATIENT AND THERAPISTS, FOR PATIENT DOING MUCH OF THEIR OWN CARE POSSIBLE. QUESTIONS ANSWERED, PATIENT STATES UNDERSTANDING. PATIENT STATES "SO GLAD TO BE ABLE TO STAY A FEW DAYS TO FEEL SAFER GOING HOME". PATIENT HAS 19 STEPS INTO HOME. WILL CONTINUE TO FOLLOW.
--- NOTE | 2019-06-01 12:24 | NUR ---
PT SITTING UP IN CHAIR KNITTING AND WATCHING TV. SHE HAD JUST FINISHED HER WALK AND WAS READY FOR A REST. PT REQUESTED INFO ON [employer], GAVE HER OUR BROCHURE, AND EXTENDED A BLESSING. WILL FOLLOW NEEDED
--- NOTE | 2019-06-01 13:22 | NUR ---
PATIENT SITTING IN CHAIR WITH A FRIEND VISITING. PO ABX GIVEN. WATER REFRESHED. NO FURTHER NEEDS AT THIS TIME, CALL LIGHT WITHIN REACH.
--- NOTE | 2019-06-01 13:39 | NUR ---
PATIENT AMBULATED HALLWAYS WITH FWW AND 1PA. RETURNED TO CHAIR, VISITING WITH FRIEND. PATIENT VOIDED, NEW AMY PAD PLACED. NO FURTHER NEEDS AT THIS TIME, CALL LIGHT WITHIN REACH.
--- NOTE | 2019-06-01 15:46 | NUR ---
PATIENT REFUSED TO TAKE A SHOWER DUE TO HAVING A LOT OF COMPANY. ALSO BROUGHT HER SEVERAL REFILLS OF ICE WATER.
--- NOTE | 2019-06-01 15:53 | NUR ---
PATIENT SITTING IN CHAIR VISITING WITH BROTHER IN ROOM. DENIES ANY NEEDS AT THIS TIME, CALL LIGHT WITHIN REACH.
--- NOTE | 2019-06-01 18:00 | NUR ---
PATIENT LAYING IN BED WATCHING TV. EVERY OTHER STAPLE REMOVED. BOWEL TONES ACTIVE, DISTENTION NOTED IN ABDOMEN, ERYTHEMA NOTED AROUND MIDLINE INCISION. SITE IS WELL-APPROXIMATED AND NO DRAINAGE. PATIENT DENIES PAIN AND NAUSEA. PATIENT AMBULATED TO CHAIR WITH 1PA AND FWW. NO FURTHER NEEDS AT THIS TIME, CALL LIGHT WITHIN REACH.
--- NOTE | 2019-06-01 18:04 | NUR ---
PATIENT RESTING IN BED. RN IN ROOM. I&O DONE. CALL LIGHT WITHIN REACH. NO OTHER NEEDS AT THIS TIME
--- NOTE | 2019-06-01 20:50 | NUR ---
SCOW HAND ROUNDING NOTE. PT SITTING UP IN CHAIR USING HER COMPUTER. PT REPORTS FEELING LONESOME. TUB CHUCKER ENCOURAGES PT TO CALL IF NEEDED, OR IF WANTING TO VISIT. PT STATES UNDERSTANDING. PT DENIES FURTHER QUESTIONS OR CONCERNS. CALL LIGHT IN REACH.
--- NOTE | 2019-06-01 21:54 | NUR ---
Sitting up in chair, tolerating it well, empties own stoma earlier. no c/o pain. call light at hands reach
--- NOTE | 2019-06-01 23:07 | NUR ---
pt back to bed, assessment completed, cooperative. midline abd incision with myrna inplace, QO staple removed earlier in am, steri strips applied to lower end of incision at pts requests. incision, CDI, edges well approx. Redness, and slightly more warm than reest of body noted lower abd. aware. L Stoma patent, pt doing own care. Coop with all procedures, no c/o apin at this time. CPAP inplace at this time, on room air when awake
--- NOTE | 2019-06-02 02:18 | NUR ---
RESTING, NO C/O PAIN, TURNS SELF IN BED, CALL LIGHT AT BEDSIDE
--- NOTE | 2019-06-02 03:35 | NUR ---
Patient is resting, call light in reach and fresh water given. no other need at this time.
--- NOTE | 2019-06-02 04:49 | NUR ---
PT HAS SLEPT MOST OF THIS SHIFT. CURRENTLY RESTING, EYES CLOSED, WEARING CPAP. PT IS ON ROOM AIR WHEN AWAKE, DOES MOST OF SELF STOMA CARE. MIDLINE ABD INCISION W KRISTEN IN PLACE, STERI STRIPS APPLIED AT HER REQUESTS . LOWER ABD TENDER, WARM TO TOUCH, RED-PINK COLORED, NO DRAINAGE. DENIES C/O PAIN. PT ON SWING BED STATUS,
--- NOTE | 2019-06-02 05:04 | NUR ---
PATIENT HAS RESTED WELL MOST OF THE NIGHT. WAS GIVEN OXYCODONE AT THE BEGINING OF THE SHIFT AND THEN USED THE RESTROOM AND WENT TO SLEEP AFTER SHE HAD SCHEDULED TYLENOL AND MEDS REQUESTED FOR SLEEP. AT THE TIME SHE GOT HER SECOND DOSE OF TYLENOL SHE GOT UP AGAIN WITH 2PA TO THE BEDSIDE COMMODE AND WAS ALSO GIVEN DILAUDID 8MG PO FOR 7/10 HIP PAIN. PATIENT REMAINS RESTING QUIETLY AT THIS TIME. SATS 92% ON 2L/NC EVEN THOUGH PATIENT IS A MOUTH BREATHER, WEDGE IN PLACE AND SCD'S ON. CALL LIGHT IN REACH. HR=80 PER PULSE OX. EYES ARE CLOSED AND PATIENT IN NO APPARENT DISTRESS. LEFT HIP DRESSING STILL CDI.
--- NOTE | 2019-06-02 07:20 | NUR ---
Report recieved, orders acknowledged.
--- NOTE | 2019-06-02 09:01 | NUR ---
Patient sitting up in chair watching tv. 50% of breakfast eaten. AM medications given, assessment complete. Hypoactive bowel tones, erythema noted around midline incision, redness marked with pen. Steristrips in place on bottom half of mildine incision. Denies nausea and pain. Voiding qs, adequate PO intake. Colostomy bag continues to empty. Denies further needs at this time, call light within reach.
--- NOTE | 2019-06-02 10:03 | NUR ---
Patient worked with PT, 1PA with FWW. Patient climbed 12 steps, POC to walk 12 more stairs this evening. Patient ambulated back to chair, reports pain of 5/10 at incision site. PRN pain medication given. Water refreshed. Denies further needs at this time, call light within reach.
--- NOTE | 2019-06-02 10:30 | NUR ---
Patient sitting in chair watching tv. Vital signs and I/O's recorded. Patient denies any needs at this time, call light within reach.
--- NOTE | 2019-06-02 12:00 | NUR ---
Patient sitting up in chair watching tv. Midline incision is well-approximated with no drainage. Redness appears to be diminishing around the incision site. Denies pain and nausea. No further needs at this time, call light within reach.
--- NOTE | 2019-06-02 13:16 | NUR ---
Patient sitting in chair watching tv and knitting. PO abx given, water refreshed. 90% of lunch eaten. Assessment complete, midline incision is well-approximated with no drainage. Erythema noted midline incision, marked with pen to monitor. Active bowel tones with continued output from colostomy. Denies further needs, call light within reach.
--- NOTE | 2019-06-02 14:54 | NUR ---
Patient ambulated small loop of unit and climbed 16 stairs. Ambulated with 1PA and FWW to toilet, voiding qs and producing output in colostomy. Ambulated back to chair, denies further needs at this time. Call light within reach.
--- NOTE | 2019-06-02 16:40 | NUR ---
PATIENT TOOK A SHOWER TODAY. ALSO REFILLED HER ICE WATER. I ASKED HER IF THERE IS ANYTHING SHE NEEDS AND SHE SAID NOT RIGHT NOW.
--- NOTE | 2019-06-02 17:32 | NUR ---
Patient sitting in chair watching tv. 100% of dinner eaten. PO abx given. Denies any needs at this time, call light within reach.
--- NOTE | 2019-06-02 18:26 | NUR ---
PATIENT SITTING UP IN CHAIR WATCHING TV. ALSO AROUND DINNER TIME SHE CALLED AND ASKED FOR MORE APPLE JUCICE AND ICE WATER.
--- NOTE | 2019-06-02 19:08 | NUR ---
pt c/o abd pain, medicated with Tylenol 650mg po. Sitting up in chair, midline abd incision with myrna and steri strips in place, decreased edema nad redness of lower abd noted, area marked, incision lightly covered to decrease irritaion from underwear. Call light at hands reach
--- NOTE | 2019-06-02 20:08 | NUR ---
in chair watching tv, no further c/o pain. coop with assessment. call light at bedside. does own self stomy care
--- NOTE | 2019-06-02 20:25 | NUR ---
EDUCATIONAL AIDE ROUNDING NOTE. PT SITTING UP IN CHAIR CROCHETING. PT DENIES QUESTIONS, CONCERNS, OR NEEDS AT THIS TIME. WHITE BOARD UPDATED. CALL LIGHT IN REACH.
--- NOTE | 2019-06-02 23:18 | NUR ---
V/S AND I&O TAKEN AND RECORDED.
--- NOTE | 2019-06-02 23:30 | NUR ---
back to bed, does own stoma care, wearing CPAP at this time. no c/o pain. call light and fluids at hands reach
--- NOTE | 2019-06-03 02:00 | NUR ---
Resting, wearing CPAP, fluids and call light at bedside. Continuous on swing bed
--- NOTE | 2019-06-03 05:01 | NUR ---
SBA PT TO TOILET, GAVE PRIVICY, PT CALLED WHEN DONE, LEFT PT IN BED C/ BS TABLE AND CALL LIGHT IN REACH
--- NOTE | 2019-06-03 05:12 | NUR ---
PT CURRENTLY AWAKE WATCHING TV. WAS MEDICATED WITH TYLENOL 650MG PO PER ABDPAIN X1, EFFECTIVE, DENIES NEED FOR PAIN MED AT THIS TIME. MIDLINE ABD INCISOION WITH KRISTEN AND STERI STRIPS EDGES WELL APPROX DRY CLEAN. LOWER ABD MID TO LEFT SIDE STILL RED, TENDER AND WARM TO TOUCH, BUT MUCH IMPROVED FROM YESTERDAY. PT C/O SKIN IRRITATATION WHEN SHE PULLS HER ATTENDS UP, AMY PAD APPLIED TO INCISION AREA, PT STATES SEMI EFFECTIVE. DOES OWN STOMA CARE, STOME AREA INTACT, WEARS CPAP AT HS. UP W 1 ASSIST/FWW, CALL LIGHT AND FLUIDS AT BEDSIDE
--- NOTE | 2019-06-03 05:50 | NUR ---
TADAYS DAILY WEIGHT 197#, AWAKE WATCHING TV, NO C/O PAIN. ABD INCISION W/O CHANGES, DOES OWN SELF STOMA CARE.NO C/O PAIN, ON ROOM AIR
--- NOTE | 2019-06-03 09:00 | NUR ---
Patient sitting in chair watching tv. AM medications given, assessment complete. Midline incision is well-approximated, with erythema noted around the base of the incision. Peripad in place along midline, one drop of yellow drainage noted at the bottom staple site. Active bowel tones, no tenderness to palpation. Patient reports passing gas, colostomy output. Denies further needs at this time, call light within reach.
--- NOTE | 2019-06-03 09:55 | NUR ---
Report received, orders acknowledged. Patient sitting up in chair watching tv. Denies needs at this time, call light within reach.
--- NOTE | 2019-06-03 10:15 | NUR ---
Patient ambulating with PT, walked without assistance. 20 stairs climbed and wheelchair used once for patient to rest. Patient ambulated back to chair. Denies any needs at this time, call light within reach.
--- NOTE | 2019-06-03 13:43 | NUR ---
Patient sitting in chair watching tv. PO abx given. Assessment complete, midline incision is well-approximated. Peripad in place over incision, scant amount of yellow drainage continues from bottom of midline incision. 100% of meal eaten, active bowel tones. Stool becoming more formed in colostomy bag. Water refreshed, denies further needs. Call light within reach.
--- NOTE | 2019-06-03 15:15 | NUR ---
Patient sitting in chair, begins crying as RN enters room. States "I'm tired of not feeling good! I want the doctor to look at my incision." PRN acetaminophen given, and Dr. Chan notified. 1540: Dr. Chan in room to examine incision. Midline incision is well-approximated, with minimal drainage. Patient told incision is "healing and looks good." Patient ceases crying and states "I feel reassured."
--- NOTE | 2019-06-03 17:27 | NUR ---
Patient sitting in chair watching tv. 75% of meal eaten. Patient denies pain and nausea. Water refreshed. No further needs at this time, call light within reach.
--- NOTE | 2019-06-03 18:35 | NUR ---
PATIENT AND I WALKED FROM HER ROOM STOPPED AT THE NURSES STATION FOR A FEW MINUTES. THAN SHE DID THE STAIRS. 12 STEPS. THAN WALKED BACK TO THE ROOM.
--- NOTE | 2019-06-03 21:56 | NUR ---
In bed, cooperative with assessment. midline abd incision with myrna and ss inplace, open to air, light sarah pad attached to underwear to decrease irritaion as aper pts. improved-decreased redness of l lower abd area, still pink red and warm to touch, tender. scant amount of drainage yellow colored coming from umbilical area incision. L stome in place, draining small amount of semiformed bm. Pt does own care. !PA faa. No c/o pain at this time. Fresh water given, call light at bedside
--- NOTE | 2019-06-04 00:12 | NUR ---
PT WEARING CPAP, NO DISTRESS NOTED, RESTING, EYES CLOSED, CALL LIGHT AND FLUIDS AT BEDSIDE
--- NOTE | 2019-06-04 03:57 | NUR ---
resting, wearing CPAP, call light at bedside
--- NOTE | 2019-06-04 05:12 | NUR ---
Pt has slept most of this shift, does own stoma self care, midline abd incision with myrna in place, redness of loer L abd pink red colored, warm to touch and tender. pt on po abx. afebrile. Voiding QS, uses 1pa and fww Continues on swing bed status
--- NOTE | 2019-06-04 05:52 | NUR ---
PT UP TO BR, VOIDED LARGE AMOUNT OF YELLOW URINE, DID OWN STOMA CARE. MIDLINE INCISION W/O CHANGES. UP IN CHAIT AT THIS TIME, NO C/O PAIN CALL LIGHT AT HANDS REACH
--- NOTE | 2019-06-04 07:28 | NUR ---
PATIENT SITTING UP IN BEDSIDE RECLINER WATCHING TV. PATIENT STATES SHE SLEPT WELL LAST NIGHT AND IS IN A CHEERFUL MOOD THIS MORNING. PATIENT PERFORMED AM CARE, LINENS CHANGED AND READJUSTED. CALL LIGHT IN REACH. NO OTHER NEEDS AT THIS TIME.
--- NOTE | 2019-06-04 08:02 | NUR ---
PT SITTING UP IN RECLINERALERT AND INTERACTIVE. REPORT RECIEVED. PT DENIES PAIN OR NEEDS OF AT THIS TIME, CALL LIGHT IN LAP.
--- NOTE | 2019-06-04 08:38 | NUR ---
PT EATS 100% OF MORNING MEAL, CONTINUES UP IN THE CHAIR AT THIS TIME, USING LAPTOP. DENIES PAIN OR DISCOMFORTS AGREES TO NOTIFY STAFF OF NEED.
--- NOTE | 2019-06-04 09:35 | NUR ---
PT UP WORKING WITH P/T TYLENOL GIVEN PER REQUEST
--- NOTE | 2019-06-04 10:32 | NUR ---
PATIENT RESTING IN BEDSIDE RECLINER, PASTORAL CARE IN ROOM. CALL LIGHT IN REACH. NO OTHER NEEDS AT THIS TIME.
--- NOTE | 2019-06-04 11:28 | NUR ---
PT AMBULATES THE AMES PT SBA WELL TOLERATED
--- NOTE | 2019-06-04 11:53 | NUR ---
PT IS ALERT, ORIENTED AND DRRESSED IN HER CLOTHES. OT GARRETT HAD JUST BEEN IN AND IS ASSISTING PT WITH TIPS ON HOW TO DRESS HERSELF. PT THINKS WED SHE WILL BE DC'D, AND APPEARS TO BE READY FOR THAT DAY. EXTENDED A BLESSING, GENNA CHAPMANN IN TO TAKE VS. WILL FOLLOW NEEDED
--- NOTE | 2019-06-04 13:25 | NUR ---
PATIENT RESTING IN BEDSIDE RECLINER. CALL LIGHT IN REACH. NO OTHER NEEDS AT THIS TIME.
--- NOTE | 2019-06-04 14:27 | NUR ---
PT SITTING SELF OF EOB. STATES HE NEEDS TO USE THE BATHROOM. PLACES URINAL NEAR GENITALS TO URINATE. URINATES ON FLOOR, MISSING URINAL. GOWN C URINE ON IT WELL. GOWN CHANGED. REPOSITIONS SELF IN BED. DENIES OTHER NEEDS RIGHT NOW. BR UP X2. CALL LIGHT IN REACH.
--- NOTE | 2019-06-04 17:00 | NUR ---
PT DOING SELF CARE OF COLOSTOMY DENIES NEEDS OF
--- NOTE | 2019-06-04 19:20 | NUR ---
REPORT RECEIVED. PT IN RECLINER, FULLY DRESSES, LAPTOP OPEN. PT AWARE OF POTENTIAL DC PLANS FOR TUESDAY.
--- NOTE | 2019-06-04 20:45 | NUR ---
ASSESSMENT COMPLETE. COLOSTOMY WITH BROWN STOOL. REDDNESS REMAINS ON MID-LOWER ABDOMINAL AREA.
--- NOTE | 2019-06-05 00:15 | NUR ---
PT IN BED, CPAP IN PLACE, RESP EVEN AND UNLABORED.
--- NOTE | 2019-06-05 03:12 | NUR ---
CHECKED ON PT. EYES CLOSED, RESP EVEN, CPAP IN PLACE. MOVED HER LEGS WHILE RN CHECKING.
--- NOTE | 2019-06-05 07:30 | NUR ---
PATIENT UP TO CHAIR WATCHING TV. I PICKED UP PATIENT'S ROOM . CLEANED TOILET, WIPED DOWN TABLES, PICKED UP GARBAGE AND DIRTY LINENS. FRESH ICE WATER GIVEN AND ICE PACK GIVEN. PATIENT STATES SHE WILL SHOWER LATER TODAY. CALL BUTTON IN REACH. NO OTHER NEEDS AT THIS TIME.
--- NOTE | 2019-06-05 09:58 | NUR ---
PT SITTING UP IN CHAIR WATCHING TV AT THIS TIME. PT ON RA, RESP EVEN AND NON LABORED. PT REPORTS SHE IS "DOING WELL TODAY". LLQ ABD COLOSTOMY IS INTACT AND PATENT; BROWN COLORED STOOL IN APPLIANCE. PT DENIES NEEDS AT THIS TIME. PERSONAL SUPPLIES AND CALL LIGHT WITHIN REACH.
--- NOTE | 2019-06-05 10:53 | NUR ---
Pt walking in toney smiling. States she will be ready to go home tomorrow. Letter for Transitional Care bed discharge given and letter to Amberly completed.
--- NOTE | 2019-06-05 11:30 | NUR ---
PT ON "Q" TURNED BACK TO 6, SAID OK IF NEEDED FOR INCREASED PAIN.
--- NOTE | 2019-06-05 12:16 | NUR ---
PT UP AMBULATING IN THE AMES WITH [place]. PT WAS EXCITED SHE HAD MET HER GOAL WALKING AND MENTIONED THAT SHE WAS HEADED HOME WED. GAVE ENCOURAGEMENT TO PT, SHE THANKED ME. WILL FOLLOW NEEDED
--- NOTE | 2019-06-05 14:04 | NUR ---
Patient is in room crocheting, patient states this is an activity that she does enjly. Pt is concerned about the pants that she has and being too tight. Pt given a set of extra large scrubs so that she has loose clothing on her abdomen. Pt states that she now feels safe to discharge tomorow, and that her son is off work tomorow to help her on her first day at home. Pt feels like this swing bed program has been beneficial to her. She states "it helped me get more confidence and take care of myself". Pt adds "it has helped me with my balance, and I am not scared to go home now like I was a weak ago". Pt is making plans to have her son pick her up tomorow. Pt appearance is clean, hair is combed and in a pony tail, pt states she has been able to do her self care today, and was able to change her clothes without problems now. Pt admits to being happy with her progress, she states I need to make sure I don't overdo it with my stitches. Pt realizes that she will need a follow-up appt for removal of her remaining myrna.
--- NOTE | 2019-06-05 17:57 | NUR ---
ADMIN TYLENOL 650MG PO FOR REPORTS OF 4/10 ABD PAIN.
[2019-06-05] MEDS ORDERED: CLINDAMYCIN HC300 MG PO (19:25)
--- NOTE | 2019-06-05 19:30 | NUR ---
REPORT RECEIVED FROM DAY SHIFT RN. IN TO CHECK ON PT AND DO ASSESSMENT. PT DENIES PAIN AT THIS TIME. VSS. IS UP IN CHAIR LOOKING ON COMPUTER. FRIENDLY AND TALKATIVE AND HAS NO COMPLAINTS. ASSESSMENT DONE, PT WILL CALL WITH FURTHER NEEDS.
--- NOTE | 2019-06-05 21:05 | NUR ---
IN TO GIVE PT'S ABX. PT IS READY TO GO TO BED, GETTING SELF INTO BED. NO REQUESTS AT THIS TIME.
--- NOTE | 2019-06-06 00:06 | NUR ---
PT APPEARS SLEEPING/RESTFUL. RESP EVEN AND UNLABORED.
--- NOTE | 2019-06-06 04:22 | NUR ---
PT HAS BEEN RESTFUL/SLEEPING. RESP EVEN AND UNLABORED.
--- NOTE | 2019-06-06 05:15 | NUR ---
AWAKE, DAILY WEIGHT DONE, PT UP TO CHAIR WITH COFFEE AND NO OTHER REQUESTS.
--- NOTE | 2019-06-06 08:50 | NUR ---
Pt. standing at nurses station. Dressed, ready to go home. Denies needs, wanting to go home. Nurses working on dc.
== END 2019-06-06 09:45 | disposition home or self-care (01) | DRG 950 ==
LOC: MS 09:00
PROVIDERS: ADMIT Internal Medicine
DX: Z48.815 Encounter for surgical aftercare following surgery on the digestive system (principal); N32.81 Overactive bladder; T81.49XD Infection following a procedure, other surgical site, subsequent encounter; Z85.048 Personal history of other malignant neoplasm of rectum, rectosigmoid junction, and anus; Z87.891 Personal history of nicotine dependence; Z93.3 Colostomy status; Z88.5 Allergy status to narcotic agent; Z88.8 Allergy status to other drugs, medicaments and biological substances; Z79.899 Other long term (current) drug therapy
CPT/HCPCS: 36415; 85610; 97116; 97162; 97165; 97535; J1650

== ENCOUNTER 2019-06-11 19:14 | Emergency (ER) | payer MEDICARE, OTHER, MEDICAID ==
[~2019-06-11] VITALS: Ht 160 cm; Wt 87.1 kg
--- OUTSIDE RECORDS SUMMARY | ~2019-06-11 | XMS | Encounter Summary ---
Demographics + + + | Address | [address] | | | [place] [address] | + + + | Home Phone | | + + + | Preferred Language | Unknown | + + + | Marital Status | | + + + | Amish Affiliation | Unknown | + + + | Race | Unknown | + + + | Ethnic Group | Unknown | + + + Author + + + | Author | [facility] | | | and [place] | + + + | Organization | [facility] | | | and [place] | + + + | Address | Unknown | + + + | Phone | Unavailable | + + + Support + + + + + | Name | Relationship | Address | Phone | + + + + + | Lamar Phillips | ECON | [place] [address] | | + + + + + Care Team Providers + +------+ + | Care Core Shaper Top Name | Role | Phone | + +------+ + | Kristian Anderson DO | PCP | | + +------+ + Reason for Visit + + + | Reason | Comments | + + + | Follow-up | | + + + Evaluate & Treat (Routine) +--------+ + + + + + | Status | Reason | Specialty | Diagnoses / | Referred By | Referred To | | | | | Procedures | Contact | Contact | +--------+ + + + + + | Closed | Specialty | Oncology | Diagnoses | | | | | Services | | Rectal | Janel, | Janel, | | | Required | | carcinoma | Sirena White, | Sirena White MD | | | | | ([facility] | [address] | | | | | Rectal CA | [address] | [address] [place] | | | | | Procedures | [place], | [place], [place] | | | | | [place] OFFICE | [place] [address] | [address] Phone: | | | | | OUTPATIENT | Phone: | [phone] | | | | | VISIT 25 | [phone] | Fax: | | | | | MINUTES | Fax: | [phone] | | | | | Evaluate | [phone] | | +--------+ + + + + + Encounter Details +--------+ + + + + | Date | Type | Department | Care Team | Description | +--------+ + + + + | 10/18/ | Hospital | [facility] | Janel, | Rectal cancer (HCC) | | 2017 | Encounter | [facility] | Sirena White MD [address] | (Primary Dx) | | | | [facility] [address] [place] | | | | | [address] [place] | [place] [address] | | | | | [place] [address] | [phone] | | | | | [phone] | | | +--------+ + + + + Social History + +-------+ +--------+ + | Tobacco Use | Types | Packs/Day | Years | Date | | | | | Used | | + +-------+ +--------+ + | Former Smoker | | 1.5 | 41 | Quit: 07/19/2016 | + +-------+ +--------+ + + + +---------+ + | Alcohol Use | Drinks/Week | oz/Week | Comments | + + +---------+ + | No | | | rare | + + +---------+ + + + + | Sex Assigned at | Date Recorded | | | | + + + | Not on file | | + + + + + + + | Job Start Date | Occupation | Industry | + + + + | Not on file | Not on file | Not on file | + + + + + + + + | Travel History | Travel Start | Travel End | + + + + + + | No recent travel history available. | + + documented as of this encounter Last Filed Vital Signs + + + + + | Vital Sign | Reading | Time Taken | Comments | + + + + + | Blood Pressure | 132/69 | 10/18/2016 11:04 AM | | | | | PDT | | + + + + + | Pulse | 77 | 10/18/2016 11:04 AM | | | | | PDT | | + + + + + | Temperature | 36.4 C (97.5 F) | 10/18/2016 11:04 AM | | | | | PDT | | + + + + + | Respiratory Rate | 16 | 10/18/2016 11:04 AM | | | | | PDT | | + + + + + | Oxygen Saturation | 98% | 10/18/2016 11:04 AM | | | | | PDT | | + + + + + | Inhaled Oxygen | - | - | | | Concentration | | | | + + + + + | Weight | 64.9 kg (143 lb 1.6 | 10/18/2016 11:04 AM | | | | oz) | PDT | | + + + + + | Height | 162.6 cm (5' 4") | 10/18/2016 11:04 AM | | | | | PDT | | + + + + + | Body Mass Index | 24.56 | 10/18/2016 11:04 AM | | | | | PDT | | + + + + + documented in this encounter Progress Notes Sirena Helton MD - 10/18/2016 10:49 AM PDTFormatting of this note might be differe nt from the original. Hematology/Oncology Progress Note [facility] [place] Pt. Name/Age/: Paulette Byrnes 55 y.o. 1960 Med. Record Number: [id number] Date of admission: 10/18/2016 The patient's primary care provider is Kristian Anderson DO. Identifying Statement: Paulette Byrnes is a 55 y.o. female from [address] [place] [address] with Locally Advanced Rectal Cancer. The patient chart and medications were reviewed in detail and the patient was seen and exam ined. History of Present Illnesses, their Current Assessments and Plans: Problems That Were Updated This Visit Rectal cancer Overview ACTIVE DIAGNOSIS: Locally Advanced Rectal Cancer. Paulette presented to the [facility] emergency room on July 20, 2016 with a th ree-year history of intermittent rectal bleeding, 35 pound weight loss, fevers, and a sudden onset of bright red blood per rectum. Laboratory evaluation was notable for hemoglobin of 9.7 g/dL, hematocrit of 31.7%, white count of 30,000, and a platelet count of 600,000. CT s can of the abdomen and pelvis with contrast was performed and demonstrated an 11 cm complex mass filling the pelvis consistent with soft tissue, as well as multiple loculated fluid col lections and multiple gas bubbles which appear to arise from the bowel. The patient was pro mptly evaluated by Dr. Marty Thacker who immediately performed a laparotomy with drainage of the pelvic abscess, placement of a Hong-Jasmine drain, and performed a left lower quadrant colostomy for diversion. No pathological samples were obtained from this procedure. The rayshawn gotti was discharged and allowed to recover. Repeat evaluation by Dr. Thacker with colonoscopy on September 02, 2016 included a rigid pro ctoscopy that demonstrated a circumferential rectal tumor at 6 cm within the rectum. Biopsy specimen number [id number] evaluated by Dr. Felipe Nixon of [facility] was notable for a tubular adenoma without high-grade dysplasia or overt carcinoma. This proced ure also included a full colonoscopy through the ostomy were 2 additional polyps were remove d, a tubular adenoma at 35 cm and a hyperplastic polyp at [address] C/A/P at [facility] in [place], [place] demonstrated no evidence of metastati c disease. On September 22, 2016 Dr. Thacker placed in internal jugular Port-A-Cath without complications. On October 14, 2016 Paulette was evaluated by Dr. Ailyn Wolff and Dr. Shea Mcneill of the [facility] where her case was presented to their tumor board. Clinical exa m is notable for an overt rectal carcinoma invading into the vagina. 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 Concerns raised by the [facility] Tumor Board were that the prior placement of the drain through the tumor had increased the patient's risk of carcinomatosis and disse mination of her tumor, and recommended that she begin her therapy with 6 cycles of FOLFOX ch emotherapy before crossing over to combined modality chemoradiation therapy to be followed b y a pelvic exenteration. Current Assessment & Plan Paulette Byrnes is referred by Dr. Ailyn Wolff and Dr. Shea Mcneill of the [facility] in [facility] for neoadjuvant treatment of locally advanced rectal cancer. Chief complaint is perineal pain, generally relieved with hydrocodone. Clinical exam is notable for a Right port-a-cath, a low midline colostomy, and a Hong-Pr att drain in the Left lower quadrant. Laboratory exam is notable for anasarca and hypokalemia. Assessment; Locally advanced rectal cancer. Plan; Case was discussed with Dr. Ailyn Wolff of [facility] surgical oncology, Dr. Marty Thacker of [facility], and Dr. Joel Alfaro of the [facility]: The patient will begin the first of six cycles of FOLFOX chemotherapy today. She will see Miller Thacker for another rectal biopsy for molecular markers. Dr. Thacker is aware that the patient is starting chemotherapy today and approves. Following six cycles of FOLFOX chemoth erapy, the patient will cross-over to combined modality chemoradiation therapy, followed by pelvic exenteration at [facility]. Review of Systems: REVIEW OF SYSTEMS Constitutional: Reports energy level is fair. States that she only gets chills when she is in pain. Reports nausea intermittently, especially after eating. Reports appetite is decreas ed. Denies high fevers, anorexia, vomiting, weight loss, or night sweats. Ear, Nose, Mouth, Throat: Reports having a broken tooth that has been making her tongue and cheek sore. Denies odynophagia, dysphagia, or tinnitus. Cardiovascular: Denies shortness of breath, dyspnea on exertion, chest pain, palpitations o r orthopnea. Respiratory: Denies cough, hemoptysis, or sputum production. Gastrointestinal: Reports abdominal pain in lower midline abdomen, currently takes hydrocod one for pain on schedule. States colostomy is draining well. Denies constipation, diarrhea, melena, or bright red blood per rectum. Genitourinary: Reports that she still gets occasional bloody discharge from vaginal and ure thral area. Denies dysuria. Musculoskeletal: Denies joint pain or tenderness. Neurologic: Reports headaches that are her normal, nothing increased she states. Denies vis ual changes or numbness/tingling of the extremities. Endocrine: Denies peripheral edema or heat/cold intolerance. Hematologic: Denies spontaneous bruising or bleeding. Integumentary: Reports that her ZAIN drain from abdomen leaks at times, she is intermittently putting dressings around insertion site. Denies rash or wounds. Pain: Reports abdominal pain and tailbone at 08/03, currently stays on strict schedule using hydrocodone. Note: Here for follow up, labs and first treatment. Seen by Dr. Alfaro today. My chart: pending Review of systems as above otherwise negative Scheduled Medications: Current Outpatient Prescriptions Medication Sig Dispense Refill ascorbic acid (VITAMIN C) 500 mg tablet Take 500 mg by mouth Daily. Biotin 10 MG CAPS Take by mouth. For Hair, skin, nails. buPROPion (WELLBUTRIN SR) 150 mg 12 hr tablet Take 150 mg by mouth Daily. clobetasol (TEMOVATE) 0.05% ointment Apply topically Once a week. dexamethasone (DECADRON) 4 mg tablet Take 1 tablet by mouth Daily. On Days 2 and 3 of e ach cycle. 30 tablet 5 HYDROcodone-acetaminophen (NORCO) 5-325 mg per tablet Take 1-2 tablets by mouth every 4 hours as needed for Pain. ibuprofen (ADVIL, MOTRIN) 200 mg tablet Take 200 mg by mouth every 6 hours as needed fo r Pain. LORazepam (ATIVAN) 1 mg tablet Take 1 tablet by mouth every 6 hours as needed (Nausea/V omiting). 20 tablet 5 nystatin (MYCOSTATIN) powder Apply topically as needed. [START ON 10/19/2016] ondansetron (ZOFRAN) 8 MG tablet Take 1 tablet by mouth 2 times da guerda. On Days 2 and 3 of each cycle. Starting Day 4, take 8 mg every 8 hours as needed for na usea/vomiting. 30 tablet 5 potassium chloride (K-DUR) 20 mEq ER tablet Take 1 tablet by mouth Daily. 30 tablet 5 No current facility-administered medications for this encounter. Facility-Administered Medications Ordered in Other Encounters Medication Dose Route Frequency Provider Last Rate Last Dose fluorouracil 4,050 mg in sodium chloride 0.9% 11 mL CADD PUMP chemo infusion 2,400 mg/ m2 (Order-Specific) Intravenous Q46H Sirena Helton MD leucovorin 340 mg in dextrose 5% 250 mL infusion 200 mg/m2 (Order-Specific) Intravenou s Once Sirena Helton MD 133.5 mL/hr at 10/18/16 1237 340 mg at 10/18/16 1237 oxaliplatin (ELOXATIN) 135 mg in dextrose 5% 223 mL chemo infusion 80 mg/m2 (Order-Spe cific) Intravenous Once Sirena Helton MD 125 mL/hr at 10/18/16 1238 135 mg at 1238 Allergies: Allergy: Allergies Allergen Reactions Propoxyphene Past Medical and Surgical History, Social History and Problems: Past Medical History Diagnosis Date Hypertension Nephrolithiasis Hyperlipidemia Squamous cell carcinoma of vulva (HCC) Past Surgical History Procedure Laterality Date Dilation and curettage of uterus 2 times Portacath placement/removal Right 09/22/2016 Internal jugular (Kirstie) Social History Social History Marital Status: Spouse Name: N/A Number of Children: N/A Years of Education: N/A Occupational History Not on file. 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 Admission: Weight: 64.91 kg (143 lb 1.6 oz) Wt. Current: Weight: 64.91 kg (143 lb 1 .6 oz) Wt Readings from Last 3 Encounters: 10/18/16 64.91 kg (143 lb 1.6 oz) Physical Exam: General: The patient is alert and oriented. No acute distress. Eyes: Conjunctiva clear. Sclera anicteric. ENMT: Oropharynx fee of lesions, mucous membranes moist. Cardiovascular: Regular rate and rhythm, no rubs, gallops, or murmurs. Lungs: Clear to auscultation and percussion. Chest: New right anterior chest port-a-cath was accessed with a Grant needle and a brisk b lood return was noted. It was secured for infusional therapy. Abdomen: Soft, nontender, no hepatospenomegaly. No palpable masses. Bowel sounds present. Ostomy intact in the midline with well perfused stoma. Hong Jasmine drain in the right low er quadrant draining copious amounts of brown opaque material. Extremities: Nontender, no erythema, no edema. Skin: No rashes, bruising, or petechiae. Lymph: No palpable nodes in the neck, supraclavicular fossa, axilla or groin. Neurological: Cranial nerves are intact. Normal sensory and motor function, No focal defi cits noted. Muscular/Skeletal: No acute bony tenderness. No evidence of sarcopenia. Psychiatric: Normal mood and affect. ECOG Performance Status [] 0 [x] 1 [] 2 []3 [] 4 ECOG PERFORMANCE STATUS* Grade ECOG Karnofsky 0 Fully active, able to carry on all pre-disease performance without restriction. 90 - 100 1 Restricted in physically strenuous activity but ambulatory and able to carry out work of a light or sedentary nature, e.g., light house work, office work 70 - 80 2 Ambulatory and capable of all selfcare but unable to carry out any work activ ities. Up and about more than 50% of waking hours 50 - 60 3 Capable of only limited selfcare, confined to bed or chair more than 50% of w aking hours 30 - 40 4 Completely disabled. Cannot carry on any selfcare. Totally confined to bed or chair 10 - 20 * As published in Am. J. Clin. Oncol.: John Paul Baer., Jumana, R.H., Fransisca Baltazar., Chayito Roque., Thaddeus, TLuis Alfredo., Jyoti, E.T., Danielle, P .P.: Toxicity And Response Criteria Of The Eastern Co[employer] Oncology Group. Am J Clin Onc ol 5:649-655, 1982. The ECOG Performance Status is in the public domain therefore available for public use. To duplicate the scale, please cite the reference above and credit the [employer] Co[employer] log[employer] Group, Sirena Richards M.D., Group Chair Diagnostic studies: Available data and images were reviewed personally. See reports. Significant results and findings are addressed here or in the Assessment and Plan. Results for PAULETTE BYRNES ( ) as of 10/18/2016 13:57 Ref. Range 10/18/2016 08:58 WBC Latest Ref Range: 4.0-11.0 K/uL 11.3 (H) RBC: Latest Ref Range: 3.70-5.20 M/uL 3.43 (L) Hgb Latest Ref Range: 11.5-16.0 g/dL 8.0 (L) Hct, Final Latest Ref Range: 34.0-47.0 % 26.0 (L) MCV Latest Ref Range: 83.0-101.0 fL 75.6 (L) MCH Latest Ref Range: 28.0-35.0 pg 23.3 (L) MCHC Latest Ref Range: 32.0-36.0 g/dL 30.8 (L) RDW-CV Latest Ref Range: <15.0 % 17.2 (H) Platelet Count Latest Ref Range: 140-440 K/uL 608 (H) MPV Latest Units: fL 6.1 Absolute Neutrophils Latest Ref Range: 1.80-8.50 K/uL 9.60 (H) Absolute Lymphocytes Latest Ref Range: 0.60-3.20 K/uL 0.70 Absolute Monocytes Latest Ref Range: 0.00-1.00 K/uL 0.80 Absolute Eosinophils Latest Ref Range: 0.00-0.40 K/uL 0.10 Absolute Basophils Latest Ref Range: 0.00-0.10 K/uL 0.00 % Neutrophils Latest Ref Range: 45.0-82.0 % 85.1 (H) % Lymphocytes Latest Ref Range: 20.0-45.0 % 6.5 (L) % Monocytes Latest Ref Range: 4.0-12.0 % 7.5 % Eosinophils Latest Ref Range: 0.0-5.0 % 0.6 % Basophils Latest Ref Range: 0.0-1.0 % 0.3 NA Latest Ref Range: 136-149 mmol/L 141 K Latest Ref Range: 3.5-5.1 mmol/L 2.8 (L) Chloride Latest Ref Range: 98-109 mmol/L 101 Carbon dioxide Latest Ref Range: 24-31 mmol/L 27 ANION GAP Latest Ref Range: 3-16 mmol/L 13 GLUCOSE Latest Ref Range: 70-109 mg/dL 141 (H) BUN Latest Ref Range: 7-18 mg/dL 7 BUN/CREA Unknown 17.1 Creatinine Latest Ref Range: 0.60-1.30 mg/dL 0.41 (L) ALBUMIN Latest Ref Range: 3.2-5.0 g/dL 1.9 (L) Albumin/Globulin ratio Latest Ref Range: 0.8-2.0 0.5 (L) Total protein Latest Ref Range: 6.0-7.8 g/dL 5.9 (L) EGFR IF NOT Latest Ref Range: >=60 mL/min/1.73m2 >60 Calcium Latest Ref Range: 8.3-10.5 mg/dL 8.3 ALK PHOS Latest Ref Range: 40-110 U/L 185 (H) ALT (SGPT) (REF) Latest Ref Range: 6-45 U/L 50 (H) AST (SGOT) (REF) Latest Ref Range: 10-42 U/L 37 LDH TOTAL Latest Ref Range: 91-180 U/L 141 BILIRUBIN TOTAL Latest Ref Range: 0.1-1.5 mg/dL 0.1 GLOBULIN Latest Ref Range: 2.1-3.8 g/dL 4.0 (H) CEA Latest Ref Range: 0.0-10.0 ng/mL 7.2 Pharmacovigilance: Clinical Oncology Pharmacy Services Progress Note Chemotherapy Education Session [facility] Pt. Name/Age/: Paulette Byrnes 55 y.o. 1960 Med. Record Number: [id number] Identifying Statement: Paulette Byrnes is a 55 y.o. female from [address] [place] [address] with The encounter diagnosis was Rectal cancer (HCC). The patient chart and medications were reviewed in detail and the patient was seen and exam ined. Patient was referred to Clinical Oncology Pharmacist for chemotherapy education and side ef fect management. Chemotherapy dose and frequency: FOLFOX chemotherapy Chemotherapy start date: 10/18/16 Past Medical and Surgical History, Social History and Problems: Past Medical History Diagnosis Date Hypertension Nephrolithiasis Hyperlipidemia Squamous cell carcinoma of vulva (HCC) Past Surgical History Procedure Laterality Date Dilation and curettage of uterus 2 times Social History Social History Marital Status: Spouse Name: N/A Number of Children: N/A Years of Education: N/A Occupational History Not on file. 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 Eyes: Denies change in visual acuity HEENT: Denies nasal congestion or sore throat Respiratory: Denies cough or shortness of breath Cardiovascular: Denies chest pain or edema GI: Denies abdominal pain, nausea, vomiting, bloody stools or diarrhea : Denies dysuria urgency or frequency. Musculoskeletal: Denies any bone pain Integument: Denies rash, bruising, petechia Neurologic: Denies headache, focal weakness or sensory changes Lymphatic: Denies swollen glands Review of systems as above, otherwise negative Scheduled Medications: Current Outpatient Prescriptions on File Prior to Encounter Medication Sig Dispense Refill ascorbic acid (VITAMIN C) 500 mg tablet Take 500 mg by mouth Daily. Biotin 10 MG CAPS Take by mouth. For Hair, skin, nails. buPROPion (WELLBUTRIN SR) 150 mg 12 hr tablet Take 150 mg by mouth Daily. clobetasol (TEMOVATE) 0.05% ointment Apply topically Once a week. dexamethasone (DECADRON) 4 mg tablet Take 1 tablet by mouth Daily. On Days 2 and 3 of each cycle. 30 tablet 5 HYDROcodone-acetaminophen (NORCO) 5-325 mg per tablet Take 1-2 tablets by mouth emi ry 4 hours as needed for Pain. ibuprofen (ADVIL, MOTRIN) 200 mg tablet Take 200 mg by mouth every 6 hours as neede d for Pain. LORazepam (ATIVAN) 1 mg tablet Take 1 tablet by mouth every 6 hours as needed (Naus ea/Vomiting). 20 tablet 5 nystatin (MYCOSTATIN) powder Apply topically as needed. [START ON 10/19/2016] ondansetron (ZOFRAN) 8 MG tablet Take 1 tablet by mouth 2 time s daily. On Days 2 and 3 of each cycle. Starting Day 4, take 8 mg every 8 hours as needed fo r nausea/vomiting. 30 tablet 5 potassium chloride (K-DUR) 20 mEq ER tablet Take 1 tablet by mouth Daily. 30 tabl et 5 Current Facility-Administered Medications on File Prior to Encounter Medication Dose Route Frequency Provider Last Rate Last Dose fluorouracil 4,050 mg in sodium chloride 0.9% 11 mL CADD PUMP chemo infusion 2,40 0 mg/m2 (Order-Specific) Intravenous Q46H Sirena Helton MD fosaprepitant (EMEND) 150 mg in sodium chloride 0.9% 150 mL IVPB 150 mg Intrave nous Once Sirena Helton MD leucovorin 340 mg in dextrose 5% 250 mL infusion 200 mg/m2 (Order-Specific) Int ravenous Once Sirena Helton MD ondansetron (ZOFRAN) 8 mg, dexamethasone (DECADRON) 4 mg in sodium chloride 0.9% 50 m L IVPB Intravenous Once Sirena Helton MD 204 mL/hr at 10/18/16 1155 oxaliplatin (ELOXATIN) 135 mg in dextrose 5% 223 mL chemo infusion 80 mg/m2 (Orde r-Specific) Intravenous Once Sirena Helton MD Objectives: Wt Readings from Last 3 Encounters: 10/18/16 64.91 kg (143 lb 1.6 oz) Patient Education: Provided teaching on the following, including but not limited to: Pathophysiology of cancer. Brief mechanism of action of anticancer agent(s) and their indications. Supportive medications How to take drug (ie. with or without food, swallow whole, do not crush) Drug/drug and drug/food interactions Lab tests necessary in monitoring the medication for toxicity and efficacy Precautions/warnings Reproductive alterations/precautions and impact on future fertility Side effects and side effect management tips Planned duration of treatment When to call the physician or oncology pharmacist Additionally we discussed starting KCl for electrolyte depletion. Assesment/Plan: 1. We discussed the high risk nature of the treatment regimen, as well as side effect manageme nt. The patient demonstrated understanding and all questions were answered, and wishes to pr oceed with FOLFOX therapy. 2. Antiemetic regimen: Ondansetron 8 mg PO BID for 2 days after each chemotherapy, then emi ry 8 hours as needed for nausea. Dexamethasone 4 mg PO BID for 2 days after each chemotherap y. Lorazepam 1 mg PO every 4-6 hours as needed for nausea. 3. Patient information and handouts were given to the patient. 4. Chemotherapy consent form was signed. 5. Please consult clinical oncology pharmacist for any further medication related education . 6. Thank you. Total time in face to face discussion with the patient and family was 20 minutes; more than 50% of the time was spent counseling about side effect management and coordination of care. Electronically signed by: Tayla Abernathy, GAIL 10/18/2016 12:05 Palliative Care: Patient's Medications New Prescriptions DEXAMETHASONE (DECADRON) 4 MG TABLET Take 1 tablet by mouth Daily. On Days 2 and 3 of e ach cycle. LORAZEPAM (ATIVAN) 1 MG TABLET Take 1 tablet by mouth every 6 hours as needed (Nausea/V omiting). ONDANSETRON (ZOFRAN) 8 MG TABLET Take 1 tablet by mouth 2 times daily. On Days 2 and 3 of each cycle. Starting Day 4, take 8 mg every 8 hours as needed for nausea/vomiting. POTASSIUM CHLORIDE (K-DUR) 20 MEQ ER TABLET Take 1 tablet by mouth Daily. Modified Medications No medications on file Discontinued Medications No medications on file Procedure: Day 1, Cycle 1 (14-day cycle) Released on 10/18/2016 11:38; Originally planned for 7 Take-Home Medications potassium chloride (K-DUR) 20 mEq ER tablet Take 1 tablet by mouth Daily. Disp-30 tablet, R-5, Print Uses [place] in [place]. OrderHistory dexamethasone (DECADRON) 4 mg tablet Take 1 tablet by mouth Daily. On Days 2 and 3 of each cycle. Disp-30 tablet, R-5, Print OrderHistory ondansetron (ZOFRAN) 8 MG tablet Take 1 tablet by mouth 2 times daily. On Days 2 and 3 of each cycle. Starting Day 4, ta ke 8 mg every 8 hours as needed for nausea/vomiting. Disp-30 tablet, R-5, Print OrderHistory LORazepam (ATIVAN) 1 mg tablet Take 1 tablet by mouth every 6 hours as needed (Nausea/Vomiting). Disp-20 tablet, R-5, Print OrderHistory Other Chemotherapy Pre-Authorization Order Details OrderHistory Labs Lactate Dehydrogenase STAT, ONE TIME, 10/18/16 at 0859, For 1 occurrence OrderHistory CEA STAT, ONE TIME, 10/18/16 at 0859, For 1 occurrence OrderHistory Comprehensive Metabolic Panel STAT, ONE TIME, Tue10/18/16 at 0859, For 1 occurrence OrderHistory CBC with Differential STAT, ONE TIME, Tue10/18/16 at 0859, For 1 occurrence OrderHistory Nursing Orders OK to proceed with chemotherapy 10/18/16. Extra teaching today. Uses [facility]. All treatments in [place] (We are overbooked in [place]) but can she have her pump of f in [place]? I promise to bring the pump back. INFORMED CONSENT: The nature and character of the proposed treatment with Cycle#1 FOLFOX an d the anticipated results of the proposed treatment with Cycle#1 FOLFOX ;recognized alternat mery forms of treatment, including non-treatment; the risks benefits, and side effects of pro posed treatment, alternative treatments and non-treatment were discussed with the patient wh o consents to proceed with treatment with Cycle#1 FOLFOX . The treating provider has examine d the patient and reviewed the diagnostic data, including laboratory data, and deems that it is safe and appropriate to proceed with treatment with Cycle#1 FOLFOX .SIRENA Conroy MD. OrderHistory Plans for discharge Pump off in [facility] QFU CBC,CMP, LDH, CEA * PORT DRAW AND 4 HOUR RX IN 14 DAYS OrderHistory Continuous infusion pump initiation Routine, ONE TIME Starting when released Confirm continuous 5FU 2400 mg/m2 over 46 hours (start Day 1, disconnect Day 3) every 14 da y cycle: EITHER contact home infusion pharmacy to verify prescription OR signed order is pre sent in treatment plan for during visit continuous infusion pump. OrderHistory Pre-Medications ondansetron (ZOFRAN) 8 mg, dexamethasone (DECADRON) 4 mg in sodium chloride 0.9% 50 m L IVPB Intravenous, for 16 Minutes, ONCE, Tue10/18/16 at 1200, For 1 dose Administer 30 minutes prior to chemotherapy. OrderHistory fosaprepitant (EMEND) 150 mg in sodium chloride 0.9% 150 mL IVPB 150 mg, Intravenous, for 20 Minutes, ONCE, Tue10/18/16 at 1215, For 1 dose Do not shake bag. OrderHistory PRN Medications LORazepam (ATIVAN) 2 mg/mL injection 1 mg 1 mg, Intravenous, PRN, Anxiety, Nausea/Vomiting, Starting when released, for 1 dose Administer prior to chemotherapy. OrderHistory CHEMOTHERAPY oxaliplatin (ELOXATIN) 135 mg in dextrose 5% 223 mL chemo infusion 135 mg (rounded from 135.2 mg = 80 mg/m2 1.69 m2 Order-specific BSA), Intravenous, f or 2 Hours, ONCE, Tue10/18/16 at 1230, For 1 dose Chemotherapy: Use appropriate handling precautions. Not compatible with NS or any chloride- containing solutions. Flush line with D5W prior to giving any other meds. Administer via y-s ite with leucovorin. OrderHistory leucovorin 340 mg in dextrose 5% 250 mL infusion 340 mg (rounded from 338 mg = 200 mg/m2 1.69 m2 Order-specific BSA), Intravenous, fo r 120 Minutes, ONCE, Tue10/18/16 at 1230, For 1 dose Administer via y-site with oxaliplatin OrderHistory fluorouracil 4,050 mg in sodium chloride 0.9% 11 mL CADD PUMP chemo infusion 4,050 mg (rounded from 4,056 mg = 2,400 mg/m2 1.69 m2 Order-specific BSA), Intraveno us, for 46 Hours, EVERY 46 HOURS, First dose on Tue10/18/16 at 1430 OUTPATIENT Chemotherapy: Use appropriate handling precautions. Protect from light. Start Da y 1, disconnect Day 3. OrderHistory Post-Medications heparin 100 units/mL flush injection 500 Units 5 mL, Intercatheter, PRN, Line Care, Starting when released, Until Discontinued Order History Infusion Reaction Orders Stop infusion if: Stop infusion if an infusion reaction is suspected (pruritis, flushing, rhinitis, fever , rash, back pain, dyspnea). Notify MD. OrderHistory Nursing communication STAT, UNTIL DISCONTINUED Starting when released Until Specified Place patient in a supine position and maintain airway. OrderHistory Check vital signs Monitor vital signs every 5 minutes until back to baseline, then every 15 minutes until resolution of symptoms. OrderHistory Start oxygen Start oxygen at 6-8 LPM for O2 < or = 90%. OrderHistory diphenhydrAMINE (BENADRYL) injection 25 mg 25 mg, Intravenous, EVERY 15 MIN PRN, Infusion reaction, Starting when released, for 2 doses OrderHistory methylPREDNISolone sodium succinate (solu-MEDROL) 62.5 mg/mL injection 125 mg 125 mg, Intravenous, ONCE PRN, Infusion reaction, Starting when released, for 1 dose Choose only one steroid. Mix with 2 mL provided diluent to make 62.5 mg/mL. OrderHistory Resume infusion if: Resume infusion when symptoms resolve, as directed by MD. OrderHistory Anaphylaxis orders If a severe hypersensitivity reaction or anaphylaxis is suspected (bronchospasm, strido r, wheezing, respiratory depression, cardiac arrhythmia, generalized urticaria, SBP <= 80 mm Hg or 30 mm Hg drop from baseline, angioedema, shock, loss of consciousness): Stop infusion , activate code blue and notify MD. OrderHistory EPINEPHrine 1 mg/mL injection 0.3 mg 0.3 mg, Intramuscular, EVERY 5 MIN PRN, Anaphylaxis, Starting when released, Until Disc ontinued FOR ANAPHYLAXIS: Administer in the anterior lateral thigh using 1 - 1.5 inch needle. Orde rHistory diphenhydrAMINE (BENADRYL) injection 50 mg 50 mg, Intravenous, PRN, Anaphylaxis, Starting when released, for 1 dose FOR ANAPHYLAXIS. OrderHistory sodium chloride 0.9% (NS) infusion 500 mL at 500 mL/hr, Intravenous, PRN, Anaphylaxis, Starting when released, Until Discontinued FOR ANAPHYLAXIS: Run wide open to gravity. OrderHistory albuterol 90 mcg/puff inhaler 2 puff 2 puff, Inhalation, ONCE PRN, Bronchospasm or hypoxemia, Starting when released, Until Discontinued Shake well. May repeat x 1. OrderHistory famotidine (PEPCID) injection 20 mg 20 mg, Intravenous, ONCE PRN, Anaphylaxis, Starting when released, Until Discontinued Prior to administration, prepare a 20 mg dose by diluting 2 mL of famotidine 10 mg/mL to 10 mL with normal saline. OrderHistory SIRENA HELTON MD Portions of this chart may have been created with [employer] voice recognition software. Occasi onal wrong-word or sound-alike substitutions may have occurred due to the inherent leung itations of voice recognition software. Please read the chart carefully and recognize, using context, where these substitutions have occurred. Mildred Eastman [facility] - 10/06/2016 3:38 PM PDT IDT PATIENT MEDICATION/PROFILE REVIEW [facility] Pharmacy Recommendation _XX_ Information only- need baseline labs to complete assessment Pharmacy Assessment Therapy emetogenicity risk vs. supportive meds ordered: moderate/appropriate Drug interactions of concern: Concurrent use of Dexamethasone and BUPROPION may result in l owering of the seizure threshold Allergy/Duplicate/Contraindications/Other: none Lab-based dose adjustments suggested: need baseline labs to complete assessment VTE Risk Factors Identified: Need baseline labs to assess Cardiac toxicity risks/recommended monitoring: none Objective Data Paulette Byrnes is a 55 y.o. female , Wt 64 kg, Ht 160 cm, BSA 1.69 m2, BMI 25 kg/m2 , Est CrCl = 86 ml/min (C&G, IBW) Allergies: Review of patient's allergies indicates not on file. Diagnosis: Treatment Regimen: 6 cycles of FOLFOX followed by combined modality therapy with CIVI 5FU per Dr. Shea Mcneill and Dr. Ailyn Wolff at [facility] Chemotherapy/Supportive therapy: Dexamethasone Ondansetron Lorazepam fosaprepitant Lorazepam oxaliplatin Leucovorin Fluorouracil Reference/citation for therapy: Pertinent Medical History: has no past medical history on file. Other pertinent objective data: none Current Medications: Bupropion Sr [place] Ascorbic acid Clobetasol 0.05% cream Pertinent Baseline Labs: Scr = 0.4 Electronically signed by: Mildred Orosco [facility] 10/06/2016 15:38 documented in this en counter Plan of Treatment Not on filedocumented as of this encounter Visit Diagnoses + + | Diagnosis | + + | Rectal cancer (HCC) - Primary Malignant neoplasm of rectum | + + documented in this encounter
--- OUTSIDE RECORDS SUMMARY | ~2019-06-11 | XMS | Encounter Summary ---
Demographics + + + | Address | [address] | | | [place] [address] | + + + | Home Phone | | + + + | Preferred Language | Unknown | + + + | Marital Status | Single | + + + | Yazdanism Affiliation | NON | + + + [...] Phone | + + +---------+ + | Darirus Quintana | ECON | Unknown | | + + +---------+ + Care Team Providers + +------+ + | Care Environment Coordinator Name | Role | Phone | + +------+ + | Kristian Anderson DO | PCP | | + +------+ + Reason for Visit + + + | Reason | Comments | + + + | Consultation | | + + + Consultation (Urgent) +--------+--------+ + + + + | Status | Reason | Specialty | Diagnoses / | Referred By | Referred To | | | | | Procedures | Contact | Contact | +--------+--------+ + + + + | Closed | | Radiation | Diagnoses | Ailyn Wolff, | | | | | Oncology | Rectal | [address] | [place], | | | | | cancer (HCC) | [place] | MD Wade | | | | | Procedures | [address] | [address] | | | | | CONSULT TO | [place], [place] | [address] | | | | | RADIATION | [address] | [address] [place], | | | | | ONCOLOGY | Phone: | [place] | | | | | | [phone] | [address] | | | | | | Fax: | Phone: | | | | | | [phone] | [phone] | | | | | | | Fax: | | | | | | | [phone] | +--------+--------+ + + + + Encounter Details +--------+---------+ + + + | Date | Type | Department | Care Team | Description | +--------+---------+ + + + | 06/14/ | Office | Radiation Oncology | Wade Sherman, | Rectal cancer (HCC) | | 2017 | Visit | at [facility] [address] | [address] | (Primary Dx) | | | | [address] | [address] | | | | | [address] | [place], [place] | | | | | [place], [place] | [address] | | | | | [address] | [phone] | | | | | [phone] | | | +--------+---------+ + + + Social History + +-------+ [...] + + + | Blood Pressure | 147/69 | 06/14/2017 2:26 PM | | | | | PST | | + + + + + | Pulse | 85 | 06/14/2017 2:26 PM | | | | | PST | | + + + + + | Temperature | 36.7 C (98 F) | 06/14/2017 2:26 PM | | | | | PST | | + + + + + | Respiratory Rate | 18 | 06/14/2017 2:26 PM | | | | | PST | | + + + + + | Oxygen Saturation | 98% | 06/14/2017 2:26 PM | Room Air | | | | PST | | + + + + + | Inhaled Oxygen | - | - | | | Concentration | | | | + + + + + | Weight | 77.1 kg (170 lb) | 06/14/2017 2:26 PM | | | | | PST | | + + + + + | Height | 160 cm (5' 3") | 06/14/2017 2:26 PM | | | | | PST | | + + + + + | Body Mass Index | 30.11 | 06/14/2017 2:26 PM | | | | | PST | | + + + + + documented in this encounter Progress Notes Wade Sherman MD - 06/14/2017 2:00 PM PSTFormatting of this note might be different f rom the original. RADIATION ONCOLOGY CONSULTATION Requesting Provider: Ailyn Wolff MD Identification/Chief Complaint: [id number] rectal adenocarcinoma with invasion of a loop of sig moid colon and vagina s/p total neoadjuvant therapy with 6 cycles of FOLFOX, 50.4 Gy of EBRT and 6 more cycles of FOLFOX. She is now planned to undergo an LAR/TME, posterior vaginecto my and possible intraoperative radiation for regions of R1 disease on 06/30/17. History of Present Illness: Jenn Parada is a 56 year old female with history of locally advanced rectal cancer. In Jun, she was identified to have a complex mass (neoplasm or abscess) in the pelv is s/p ex lap and transabdominal drainage of the left pelvic mass with a drain with a constr uction of an end colostomy. Vaginal invasion was noted at that time. Pathology from rigid s cope through anus to the rectal mass and through the stoma to the cecum identified only tony omatous tissue, although concern for malignancy was very high. Staging imaging in 2016 without liver metastases, couple sub cm pulmonary nodules. MRI of the rectum in September of 2016 with a 9.6cm lesion with invasion of the loop of sigmoid colon. Repeat anal biopsy on 10/27/16 consistent with malignancy. [facility] tumor board consensus was to proceed with total neoadjuvant therapy. She completed 6 cycles of FOLFOX on , and pelvic EBRT to 50.4 Gy on 02/17/17. Followup MRI on 03/02/17 with good tumor response but circumferential margin still threatened. [facility] recommendations to proceed with another 6 cycles of chemotherapy prior to planned LAR, posterior vaginectomy and possible intraoperative radiation on 06/30/17. CT CAP 06/13/17 without improvement in pelvic mass and no evidence of distant or prudencio meta static disease. Today, she notes that she is feeling much better than earlier this year. Empties colostomy more than 5 times a day. Some low back pain. Quit smoking at time of diagnosis. The patient is being seen today in consultation for consideration of intraoperative radioth erapy options. Past Medical History: Patient Active Problem List Diagnosis Date Noted CA of rectum (HCC) 10/01/2016 Overview Note: Overview: ACTIVE DIAGNOSIS: Rectal Cancer. Past Medical History: Diagnosis Date Elevated lipids Heartburn HTN (hypertension) Lichen sclerosus Nephrolithiasis Past Surgical History Procedure Laterality Date D&c (dilatation and curettage) 1981 x2 Exploratory laparotomy, transabdominal drainage of left pelvic abscess with #10 flat bl guadalupe drain, placement of prolene stitch on distal donnelly stump, construction of end sigmoid colostomy 07/21/2016 Colonoscopy via anus to low rectal mass and via ostomy to cecum with good prep, rigid p roctoscopy 09/02/2016 Placement of right internal jugular port-a-cath 09/22/2016 Carpal tunnel release in mid 90's Extracorporeal shock wave lithotripsy Excision of 2 facial cyst Repeat anal biopsy 10/27/2016 Medications Current Outpatient Prescriptions Medication Sig ASCORBIC ACID (VITAMIN C ORAL) Take 1 tablet by mouth once daily. biotin 1,000 mcg oral tablet,chewable Chew and swallow. buPROPion SR 150 mg oral tablet extended release Take 150 mg by mouth once daily in the morning. clobetasol 0.05 % topical ointment Apply to affected area CRANBERRY ORAL Take 4,200 mg by mouth. diazePAM 5 mg oral tablet Please take one tablet prn for anxiety prior to MRI. May repe at 30 minutes prior to MRI prn. HYDROcodone-acetaminophen (NORCO) 5-325 mg oral tablet Take 1 tablet by mouth every fou r hours as needed. metroNIDAZOLE 500 mg oral tablet Take 1 tablet with (8oz) glass of clear liquid at 1 pm , 2 pm and 11 pm the day before surgery. MULTIVITAMIN ORAL Take by mouth. neomycin 500 mg oral tablet Take 2 tablets with (8oz) glass of clear liquid at 1 pm, 2 pm and 11 pm the day before surgery. nystatin 100,000 unit/gram topical powder Apply to affected area potassium chloride 20 mEq oral packet Take 20 mEq by mouth once daily. No current facility-administered medications for this visit. Allergies: Allergies Allergen Reactions Ferrous Gluconate Nausea and Flushing Propoxyphene Nausea and Vomiting Pt reports she puked with "Darvocet" Social History: Social History Social History Marital status: Single Spouse name: Number of children: 1 Years of education: 12 Occupational History [employer] Social History Main Topics Smoking status: Former Smoker Packs/day: 1.50 Years: 41.00 Quit date: 07/19/2016 Smokeless tobacco: Former User Alcohol use No Drug use: No Sexual activity: Not Currently Other Topics Concern Not on file Social History Narrative No narrative on file Family History: Family History Problem Relation Cancer Mother breast Hypertension Mother Heart Attack Father from [place] at age 52 Diabetes Father Heart Attack Brother Coronary Artery Disease Brother NATHAN x 4 Review of Systems: The patient completed the Department's 11 organ system Review of Systems questionnaire on p aper. The ROS was all negative except as reported above in the HPI. Physical Exam: General: WDWN female in NAD Vitals: BP 147/69 | Pulse 85 | Temp (Src) 36.7 C (98 F) (Oral) | RR 18 | Ht 1.6 m (5' 3 ") | Wt 77.1 kg (170 lb) | SpO2 98[Room Air[% | BMI 30.11 kg/(m^2) Pain Score: 1 HEENT: NC/AT, PERRL, EOMI. Chest: CTA CV: RRR Abd: soft, NTND Ext: no edema Neuro: nonfocal Rectal: deferred. LABORATORY: Lab Results Component Value Date NA 141 06/13/2017 K 3.9 06/13/2017 CL 107 06/13/2017 BICARB 27 06/13/2017 BUN 13 06/13/2017 CR 0.55 06/13/2017 GLU 74 06/13/2017 CA 8.8 06/13/2017 ANIONGAP 7 06/13/2017 ANIONALBCOR 9 06/13/2017 Lab Results Component Value Date WBC 4.59 06/13/2017 HB 10.7 06/13/2017 HCT 34.5 06/13/2017 PLT 345 06/13/2017 MCV 91.3 06/13/2017 RDW 54.5 06/13/2017 IMAGING: See HPI PATHOLOGY: Malignancy confirmed by report, but we do not have these records today KARNOFSKY PERFORMANCE SCORE: 80% Normal activity with effort ASSESSMENT: 56 year old female with T4N0M0 rectal adenocarcinoma with invasion of a loop of sigmoid colon and vagina s/p total neoadjuvant therapy with 6 cycles of FOLFOX, 50.4 Gy of EBRT and 6 more cycles of FOLFOX. She is now planned to undergo an LAR/TME, posterior vagin ectomy and possible intraoperative radiation for regions of R1 disease on 06/30/17. RECOMMENDATIONS: Ms. Parada has a very locally-advanced and infiltrative rectal mass s/p total neoadjuvant the rapy with good clinical response; however, there are still concerns that she may have a thre atened circumferential margin which may require an additional boost of IORT should she have an R1 resection. Given the location deep in the pelvis, we will be prepared to deliver a single fraction of photon intraoperative radiation therapy with our Intrabeam device given the greater feasibil ity of placing the spherical applicator deep into the pelvis. We will on prescribing 5 Gy of IORT to 1 cm depth per the [facility] experience while retracting all small bowel and ureters out of the field (PMID [id number]) Wade Sherman MD CC: A copy of this note has been sent to the referring provider, Dr. Wolff. documented in this encounter Plan of Treatment +--------+---------+ + + + | Date | Type | Specialty | Care Team | Description | +--------+---------+ + + + | 06/18/ | Office | Surgery | Ailyn Wolff MD | | | 2019 | Visit | | [address] | | | | | | [address] [place], | | | | | | [place] [address] | | | | | | [phone] | | | | | | | | +--------+---------+ + + + documented as of this encounter Visit Diagnoses + + | Diagnosis | + + | Rectal cancer (HCC) - Primary Malignant neoplasm of rectum | + + documented in this encounter
--- OUTSIDE RECORDS SUMMARY | ~2019-06-11 | XMS | Encounter Summary ---
Demographics + + + | Address | [address] | | | [place] [address] | + + + | Home Phone | | + + + | Preferred Language | Unknown | + + + | Marital Status | | + + + | Alevism Affiliation | Unknown | + + + | Race | Unknown | + + + | Ethnic Group | Unknown | + + + Author + + + | Author | [facility] | | | and [place] | + + + | Organization | [facility] | | | and [place] | + + + | Address | Unknown | + + + | Phone | Unavailable | + + + Support + + + + + | Name | Relationship | Address | Phone | + + + + + | Lamar Phillips | REZA | [place] [address] | | + + + + + Care Team Providers + +------+ + | Care Filling Hauler Weaving Name | Role | Phone | + +------+ + | Kristian Anderson DO | PCP | | + +------+ + Reason for Visit Service/Procedure (Routine) +--------+--------+ + + + + | Status | Reason | Specialty | Diagnoses / | Referred By | Referred To | | | | | Procedures | Contact | Contact | +--------+--------+ + + + + | Closed | | Infusion | Diagnoses | | [facility] | | | | Therapy | Malignant | Janel, | Infusion [address] | | | | | neoplasm of | Mike C, | [place] | | | | | rectum (HCC) | MD [address] | [place], | | | | | Procedures | [address] | [place] [address] | | | | | [place] | [place], | Phone: | | | | | [place] | [place] [address] | [phone] | | | | | INJECTION, | Phone: | Fax: | | | | | 500 MG OR | [phone] | [phone] | | | | | NORMAL | Fax: | | | | | | SALINE | [phone] | | | | | | SOLUTION | | | | | | | INFUS, 500 | | | | | | | ML OR | | | | | | | NORMAL | | | | | | | SALINE | | | | | | | SOLUTION | | | | | | | INFUS, 250 | | | | | | | ML OR | | | | | | | STERILE | | | | | | | WATER/SALINE | | | | | | | , 10 ML OR | | | | | | | CHEMOTHER, | | | | | | | IV PUSH,EA | | | | | | | ADD DRUG OR | | | | | | | CHEMOTHER, | | | | | | | IV INFUSION, | | | | | | | 1 HR OR | | | | | | | CHEMOTHER, | | | | | | | IV INFUSION, | | | | | | | EA HR OR | | | | | | | CHEMOTHER,NO | | | | | | | N-HORMONE | | | | | | | ANTI-NEOPL, | | | | | | | SUB-Q/IM OR | | | | | | | CHEMOTHER | | | | | | | HORMON | | | | | | | ANTINEOPL | | | | | | | SUB-Q/IM OR | | | | | | | ONDANSETRON | | | | | | | HCL | | | | | | | INJECTION, 1 | | | | | | | MG OR | | | | | | | DEXAMETHASON | | | | | | | E SODIUM | | | | | | | PHOS, 1 MG | | | | | | | OR LORAZEPAM | | | | | | | INJECTION, | | | | | | | 2 MG OR | | | | | | | OXALIPLATIN, | | | | | | | .5 MG OR | | | | | | | LEUCOVORIN | | | | | | | CALCIUM | | | | | | | INJECTION, | | | | | | | 50 MG OR | | | | | | | DIPHENHYDRAM | | | | | | | INE HCL | | | | | | | INJECTIO, 50 | | | | | | | MG OR | | | | | | | METHYLPREDNI | | | | | | | SOLONE | | | | | | | INJECTION, | | | | | | | 125 MG OR | | | | | | | ADRENALIN | | | | | | | EPINEPHRINE | | | | | | | INJECT, .1 | | | | | | | MG OR | | | | | | | ALBUTEROL | | | | | | | COMP CON, 1 | | | | | | | MG OR | | | | | | | ALBUTEROL | | | | | | | NON-COMP | | | | | | | CON, 1 MG | | | | | | | OR | | | | | | | INJECTION, | | | | | | | FAMOTIDINE, | | | | | | | 20 MG | | | +--------+--------+ + + + + Encounter Details +--------+ + + + + | Date | Type | Department | Care Team | Description | +--------+ + + + + | 02/14/ | Hospital | [facility] | [facility], | Rectal cancer (HCC) | | 2017 | Encounter | MED [facility] CHE[facility] | Mike White MD [address] | (Primary Dx) | | | | INFUSION [address] [place] | | | | | [place], | [place] [address] | | | | | [place] [address] | [phone] | | | | | [phone] | | | +--------+ + + + [...] + + documented as of this encounter Medications at Time of Discharge + + + +---------+ + + | Medication | Sig | Dispensed | Refills | Start | End Date | | | | | | Date | | + + + +---------+ + + | ALPRAZolam (XANAX) | Bring with to | 2 | 0 | 05/25/20 | | | 0.5 mg tablet | scheduled MRI, take | tablet | | 17 | | | | one tablet 30 | | | | | | | minutes before MRI, | | | | | | | may repeat as | | | | | | | needed. | | | | | + + + +---------+ + + | ascorbic acid | Take 1,000 mg by | | 0 | | | | (VITAMIN C) 500 mg | mouth Daily. | | | | | | tablet | | | | | | + + + +---------+ + + | buPROPion | Take 300 mg by mouth | | 0 | | | | (WELLBUTRIN SR) 150 | Daily. | | | | | | mg 12 hr tablet | | | | | | + + + +---------+ + + | clobetasol | Apply topically | | 0 | | | | (TEMOVATE) 0.05% | Once a week. | | | | | | ointment | | | | | | + + + +---------+ + + | ibuprofen (ADVIL, | Take 200 mg by mouth | | 0 | | | | MOTRIN) 200 mg | every 6 hours as | | | | | | tablet | needed for Pain. | | | | | + + + +---------+ + + | Multiple | Take by mouth. | | 0 | | | | Vitamins-Minerals | | | | | | | (MULTIVITAMIN ADULT | | | | | | | PO) | | | | | | + + + +---------+ + + | nystatin | Apply topically as | | 0 | | | | (MYCOSTATIN) powder | needed. | | | | | + + + +---------+ + + | ondansetron | Take 8 mg by mouth | | 0 | | | | (ZOFRAN ODT) 8 mg | every 8 hours as | | | | | | disintegrating | needed for Nausea. | | | | | | tablet | | | | | | + + + +---------+ + + | Biotin 10 MG CAPS | Take by mouth. For | | 0 | | | | | Hair, skin, nails. | | | | 8 | + + + +---------+ + + | CRANBERRY EXTRACT | Take 4,200 mg by | | 0 | | | | PO | mouth Daily. | | | | 8 | + + + +---------+ + + | dexamethasone | Take 4 mg by mouth 2 | | 0 | | | | (DECADRON) 4 mg | times daily (with | | | | 8 | | tablet | breakfast & dinner). | | | | | | | Takes day 2-3 after | | | | | | | chemotherapy | | | | | | | treatment. | | | | | + + + +---------+ + + | | Take 1-2 tablets by | | 0 | | | | HYDROcodone-acetamin | mouth every 4 hours | | | | 7 | | ophen (NORCO) 5-325 | as needed for Pain. | | | | | | mg per tablet | | | | | | + + + +---------+ + + | metroNIDAZOLE | Take 1 tablet by | 63 | 0 | 02/15/20 | | | (FLAGYL) 500 MG | mouth 3 times daily | tablet | | 17 | 7 | | tablet | for 21 days. | | | | | + + + +---------+ + + | mupirocin | Apply topically 2 | | 0 | | | | (BACTROBAN) 2% | times daily. | | | | 8 | | ointment | | | | | | + + + +---------+ + + | potassium chloride | Take 1 tablet by | | 0 | 01/18/20 | | | (K-DUR) 20 mEq ER | mouth Daily. | | | 17 | 7 | | tablet | | | | | | + + + +---------+ + + documented as of this encounter Progress Notes Jada Jauregui RN - 02/14/2017 11:03 AM PDTDischarged in stable condition with sister and AVS documented in this encounter Plan of Treatment + +------+--------+ + + | Name | Type | Priori | Associated Diagnoses | Order Schedule | | | | ty | | | + +------+--------+ + + | CBC with | Lab | Routin | Rectal cancer | 5 Occurrences | | Differential | | e | (HCC) | starting 02/09/2017 | | | | | | until 02/09/2018, 1 | | | | | | completed | + +------+--------+ + + | Comprehensive | Lab | Routin | Rectal cancer | 5 Occurrences | | Metabolic Panel | | e | (HCC) | starting 02/09/2017 | | | | | | until 02/09/2018, 1 | | | | | | completed | + +------+--------+ + + | Lactate | Lab | Routin | Rectal cancer | 5 Occurrences | | Dehydrogenase | | e | (HCC) | starting 02/09/2017 | | | | | | until 02/09/2018, 1 | | | | | | completed | + +------+--------+ + + documented as of this encounter Procedures + +--------+ + + + | Procedure Name | Priori | Date/Time | Associated Diagnosis | Comments | | | ty | | | | + +--------+ + + + | CBC WITH | Routin | 02/14/2017 | Rectal cancer | Results for this | | DIFFERENTIAL | e | 8:52 AM | (HCC) | procedure are in the | | | | PDT | | results section. | + +--------+ + + + | LACTATE | Routin | 02/14/2017 | Rectal cancer | Results for this | | DEHYDROGENASE | e | 8:52 AM | (HCC) | procedure are in the | | | | PDT | | results section. | + +--------+ + + + | COMPREHENSIVE | Routin | 02/14/2017 | Rectal cancer | Results for this | | METABOLIC PANEL | e | 8:52 AM | (HCC) | procedure are in the | | | | PDT | | results section. | + +--------+ + + + documented in this encounter Results Lactate Dehydrogenase (02/14/2017 8:52 AM PDT) + +-------+ + + + | Component | Value | Ref Range | Performed | Pathologist | | | | | At | Signature | + +-------+ + + + | LDH TOTAL | 127 | 91 - 180 U/L | [facility] | | | | | [facility] | | | | | | [facility] | | | | | | [facility] - | | | | | | LABORATORY | | + +-------+ + + + + + | Specimen | + + | Blood | + + + + + + + | Performing | Address | City/State/Zipcode | Phone Number | | Organization | | | | + + + + + | [facility] | [address] | [place] | [phone] | | [facility] | | [address] | | | - LABORATORY | | | | + + + + + Comprehensive Metabolic Panel (02/14/2017 8:52 AM PDT) + + + + + + | Component | Value | Ref Range | Performed | Pathologist | | | | | At | Signature | + + + + + + | Na | 139 | 136 - 149 | [facility] | | | | | mmol/L | [facility] | | | | | | [facility] | | | | | | [facility] - | | | | | | LABORATORY | | + + + + + + | K | 3.1 (L) | 3.5 - 5.1 | [facility] | | | | | mmol/L | [facility] | | | | | | [facility] | | | | | | [facility] - | | | | | | LABORATORY | | + + + + + + | Cl | 105 | 98 - 109 mmol/L | [facility] | | | | | | [facility] | | | | | | [facility] | | | | | | [facility] - | | | | | | LABORATORY | | + + + + + + | CO2 | 25 | 24 - 31 mmol/L | [facility] | | | | | | [facility] | | | | | | [facility] | | | | | | [facility] - | | | | | | LABORATORY | | + + + + + + | Anion Gap | 9 | 3 - 16 mmol/L | [facility] | | | | | | [facility] | | | | | | [facility] | | | | | | [facility] - | | | | | | LABORATORY | | + + + + + + | Glucose | 97 | 70 - 109 mg/dL | [facility] | | | | | | [facility] | | | | | | [facility] | | | | | | [facility] - | | | | | | LABORATORY | | + + + + + + | BUN | 10 | 7 - 18 mg/dL | [facility] | | | | | | [facility] | | | | | | [facility] | | | | | | CENTER - | | | | | | LABORATORY | | + + + + + + | Creatinine | 0.55 (L) | 0.60 - 1.30 | [facility] | | | | | mg/dL | [facility] | | | | | | [facility] | | | | | | [facility] - | | | | | | LABORATORY | | + + + + + + | eGFR if not | >60Comment: GLOMERULAR | >=60 | [facility] | | | | FILTRATION | mL/min/1.73m2 | [facility] | | | [place] | RATE,ESTIMATED | | MEDICAL | | | | mL/min/1.50s0Afkk than | | CENTER - | | | | 60 Chronic kidney | | LABORATORY | | | | disease,if found over a | | | | | | 3-month period.Less than | | | | | | 15 Kidney failureFor | | | | | | | | | | | | Americans,multiply the | | | | | | calculated GFR by 1.21. | | | | | | | | | | + + + + + + | Calcium | 8.3 | 8.3 - 10.5 | [facility] | | | | | mg/dL | [facility] | | | | | | [facility] | | | | | | CENTER - | | | | | | LABORATORY | | + + + + + + | Albumin | 2.8 (L) | 3.2 - 5.0 g/dL | [facility] | | | | | | [facility] | | | | | | [facility] | | | | | | [facility]ENTER - | | | | | | LABORATORY | | + + + + + + | Bilirubin | 0.3 | 0.1 - 1.5 mg/dL | [facility] | | | Total | | | [facility] | | | | | | [facility] | | | | | | CENTER - | | | | | | LABORATORY | | + + + + + + | Total | 6.1 | 6.0 - 7.8 g/dL | [facility] | | | Protein | | | [facility] | | | | | | [facility] | | | | | | CENTER - | | | | | | LABORATORY | | + + + + + + | AST | 24 | 10 - 42 U/L | [facility] | | | | | | [facility] | | | | | | [facility] | | | | | | [facility]ENTER - | | | | | | LABORATORY | | + + + + + + | ALT | 33 | 6 - 45 U/L | [facility] | | | | | | [facility] | | | | | | [facility] | | | | | | [facility]ENTER - | | | | | | LABORATORY | | + + + + + + | Alkaline | 95 | 40 - 110 U/L | [facility] | | | Phosphatase | | | [facility] | | | | | | [facility] | | | | | | [facility]ENTER - | | | | | | LABORATORY | | + + + + + + | Globulin | 3.3 | 2.1 - 3.8 g/dL | [facility] | | | | | | [facility] | [facility] | [facility] | | | | | | [facility] - | | | | | | LABORATORY | | + + + + + + | Albumin/Keyona | 0.8 | 0.8 - 2.0 | [facility] | | | bulin Ratio | | | [facility] | | | | | | [facility] | | | | | | CENTER - | | | | | | LABORATORY | | + + + + + + | BUN/Creatin | 18.2 | | [facility] | | | ine Ratio | | | [facility] | | | | | | [facility] | | | | | | CENTER - | | | | | | LABORATORY | | + + + + + + + + | Specimen | + + | Blood | + + + + + + + | Performing | Address | City/State/Zipcode | Phone Number | | Organization | | | | + + + + + | [facility] | [address] | [place] | [phone] | | [facility] | | [address] | | | - LABORATORY | | | | + + + + + CBC with Differential (02/14/2017 8:52 AM PDT) + + + + + + | Component | Value | Ref Range | Performed | Pathologist | | | | | At | Signature | + + + + + + | WBC | 8.8 | 4.0 - 11.0 K/uL | [facility] | | | | | | [facility] | | | | | | [facility] | | | | | | [facility] - | | | | | | LABORATORY | | + + + + + + | RBC | 3.70 | 3.70 - 5.20 | [facility] | | | | | M/uL | [facility] | | | | | | [facility] | | | | | | [facility] - | | | | | | LABORATORY | | + + + + + + | Hemoglobin | 10.5 (L) | 11.5 - 16.0 | [facility] | | | | | g/dL | [facility] | | | | | | [facility] | | | | | | CENTER - | | | | | | LABORATORY | | + + + + + + | Hematocrit | 32.4 (L) | 34.0 - 47.0 % | [facility] | | | | | | [facility] | | | | | | [facility] | | | | | | [facility] - | | | | | | LABORATORY | | + + + + + + | MCV | 87.5 | 83.0 - 101.0 fL | [facility] | | | | | | [facility] | | | | | | [facility] | | | | | | [facility] - | | | | | | LABORATORY | | + + + + + + | MCH | 28.5 | 28.0 - 35.0 pg | [facility] | | | | | | [facility] | | | | | | [facility] | | | | | | [facility] - | | | | | | LABORATORY | | + + + + + + | MCHC | 32.5 | 32.0 - 36.0 | [facility] | | | | | g/dL | [facility] | | | | | | [facility] | | | | | | CENTER - | | | | | | LABORATORY | | + + + + + + | RDW-CV | 21.7 (H) | <15.0 % | [facility] | | | | | | [facility] | | | | | | [facility] | | | | | | [facility] - | | | | | | LABORATORY | | + + + + + + | Platelet | 370 | 140 - 440 K/uL | [facility] | | | Count | | | [facility] | | | [facility] | | [facility] | | | | | | [facility] - | | | | | | LABORATORY | | + + + + + + | MPV | 6.4 | fL | [facility] | | | | | | [facility] | | | | | | [facility] | | | | | | [facility] - | | | | | | LABORATORY | | + + + + + + | % | 87.9 (H) | 45.0 - 82.0 % | [facility] | | | Neutrophils | | | [facility] | | | | | | [facility] | | | | | | [facility]ENTER - | | | | | | LABORATORY | | + + + + + + | % | 2.9 (L) | 20.0 - 45.0 % | [facility] | | | Lymphocytes | | | [facility] | | | | | | [facility] | | | | | | CENTER - | | | | | | LABORATORY | | + + + + + + | % Monocytes | 6.7 | 4.0 - 12.0 % | [facility] | | | | | | [facility] | | | | | | [facility] | | | | | | [facility] - | | | | | | LABORATORY | | + + + + + + | % | 2.2 | 0.0 - 5.0 % | [facility] | | | Eosinophils | | | [facility] | | | | | | [facility] | | | | | | C[facility] - | | | | | | LABORATORY | | + + + + + + | % Basophils | 0.3 | 0.0 - 1.0 % | [facility] | | | | | | [facility] | | | | | | [facility] | | | | | | [facility] - | | | | | | LABORATORY | | + + + + + + | Absolute | 7.80 | 1.80 - 8.50 | [facility] | | | Neutrophils | | K/uL | [facility] | | | | | | [facility] | | | | | | CENTER - | | | | | | LABORATORY | | + + + + + + | Absolute | 0.30 (L) | 0.60 - 3.20 | [facility] | | | Lymphocytes | | K/uL | [facility] | | | | | | [facility] | | | | | | [facility] - | | | | | | LABORATORY | | + + + + + + | Absolute | 0.60 | 0.00 - 1.00 | [facility] | | | Monocytes | | K/uL | [facility] | | | | | [facility] | | | | | | [facility] - | | | | | | LABORATORY | | + + + + + + | Absolute | 0.20 | 0.00 - 0.40 | [facility] | | | Eosinophils | | K/uL | [facility] | | | | | | [facility] | | | | | | [facility]ENTER - | | | | | | LABORATORY | | + + + + + + | Absolute | 0.00 | 0.00 - 0.10 | [facility] | | | Basophils | | K/uL | [facility] | | | | | | [facility] | | | | | | CENTER - | | | | | | LABORATORY | | + + + + + + + + | Specimen | + + | Blood | + + + + + + + | Performing | Address | City/State/Zipcode | Phone Number | | Organization | | | | + + + + + | [facility] | [address] | [place] | [phone] | | [facility] | | [address] | | | - LABORATORY | | | | + + + + + documented in this encounter Visit Diagnoses + + | Diagnosis | + + | Rectal cancer (HCC) - Primary Malignant neoplasm of rectum | + + documented in this encounter Administered Medications + +--------+ +--------+-------+------+ | Medication Order | MAR | Action | Dose | Rate | Site | | | Action | Date | | | | + +--------+ +--------+-------+------+ | fluorouracil 950 mg in sodium | Given | 02/15/20 | 950 mg | 1.5 | | | chloride 0.9% 89 mL [facility] | | 17 10:55 | | mL/hr | | | infusion 950 mg (rounded from | | AM PDT | | | | | 955.8 mg = 180 mg/m2/day | | | | | | | 1.77 m2 Treatment plan recorded | | | | | | | BSA), Intravenous, Administer | | | | | | | over 72 Hours, EVERY 72 HOURS, | | | | | | | First dose on 02/14/17 at | | | | | | | 1030, For 72 hours, OUTPATIENT | | | | | | | Chemotherapy: Use appropriate | | | | | | | handling precautions. Protect | | | | | | | from light. Continuous infusion | | | | | | | seven days per week from Day 1 | | | | | | | through last day of radiation | | | | | | | therapy., | | | | | | + +--------+ +--------+-------+------+ +---+---+ | | | +---+---+ + +-------+ +-------+---+---+ | heparin 100 units/mL flush | Given | 02/15/20 | 500 | | | | injection 500 Units 500 Units (5 | | 17 8:50 | Units | | | | mL), Intracatheter, PRN, Line | | AM PDT | | | | | Care, Starting 02/14/17 at | | | | | | | 0851 | | | | | | + +-------+ +-------+---+---+ +---+---+ | | | +---+---+ documented in this encounter"
--- OUTSIDE RECORDS SUMMARY | ~2019-06-11 | XMS | Encounter Summary ---
Demographics + + + | Address | [address] | | | [place] [address] | + + + | Home Phone | | + + + | Preferred Language | Unknown | + + + | Marital Status | Single | + + + | Christianity Affiliation | NON | + + + | Race | White | + + + | Ethnic Group | Not or | + + + Author + + + | Author | [facility] | + + + | Organization | [facility] | + + + | Address | Unknown | + + + | Phone | Unavailable | + + + Support + + +---------+ + | Name | Relationship | Address | Phone | + + +---------+ + | Darrius Quintana | ECON | Unknown | | + + +---------+ + Care Team Providers + +------+ + | Care [employer] Teacher Name | Role | Phone | + [...] | +--------+ + + + + | 12/27/ | Abstract | [facility] | Ailyn Wolff MD | Medical Records | | 2017 | | Center at [facility] [address] | [address] | Review | | | | [address] | [place], | | | | | Mailcode: [place] | [place] [address] | | | | | for Health and | [phone] | | | | | [facility] [address] | | | | | | [place], [place] | | | | | | [address] | | | | | | [phone] | | | +--------+ + + + [...] | | | | | [place], | | | | | | [place] [address] | | | | | | [phone] | | | | | | | | +--------+---------+ + + + documented as of this encounter Visit Diagnoses Not on filedocumented in this encounter"
--- OUTSIDE RECORDS SUMMARY | ~2019-06-11 | XMS | Encounter Summary ---
Demographics + + + | Address | [address] | | | [place] [address] | + + + | Home Phone | | + + + | Preferred Language | Unknown | + + + | Marital Status | Single | + + + | Religion Affiliation | NON | + + + | Race | White | + + + | Ethnic Group | Not or | + + + Author + + + | Author | [facility] | + + + | Organization | [facility] | + + + | Address | Unknown | + + + | Phone | Unavailable | + + + Support + + +---------+ + | Name | Relationship | Address | Phone | + + +---------+ + | Darrius Quintana | ECON | Unknown | | + + +---------+ + Care Team Providers + +------+ + | Care Brazer Furnace Name | Role | Phone | + +------+ + | Kristian Anderson DO | PCP | | + +------+ + Reason for Referral Diagnostic Testing (Routine) +--------+--------+ + + + + | Status | Reason | Specialty | Diagnoses / | Referred By | Referred To | | | | | Procedures | Contact | Contact | +--------+--------+ + + + + | Closed | | Radiology | Diagnoses | Ailyn Wolff, | Rad Ct Scan | | | | | Colorectal | [facility] [address] | [facility] [address] | | | | | cancer (HCC) | [address] [place] | [address] | | | | | Procedures | Amita Hines | [place]mita Hines | | | | | CT CHEST, | [place], [place] | Mailcode: | | | | | ABDOMEN AND | [address] | [address] [facility] | | | | | PELVIS W IV | Phone: | Hospital | | | | | [place] | [phone] | [place], [place] | | | | | CAT SCAN OF | Fax: | [address] | | | | | CHEST | [phone] | Phone: | | | | | [place] | | [phone] | | | | | CT | | Fax: | | | | | ABDOMEN&PELV | | [phone] | | | | | IS | | | | | | | W/CONTRAST | | | +--------+--------+ + + + + Reason for Visit Diagnostic Testing (Routine) +--------+--------+ + + + + | Status | Reason | Specialty | Diagnoses / | Referred By | Referred To | | | | | Procedures | Contact | Contact | +--------+--------+ + + + + | Closed | | Radiology | Diagnoses | Ailyn Wolff, | Rad Ct Scan | | | | | Colorectal | MD [address] | [facility] [address] | | | | | cancer (HCC) | [place] | [place] | | | | | Procedures | Amita Hines | [place]mita Hines | | | | | CT CHEST, | [place], [place] | Mailcode: | | | | | ABDOMEN AND | [address] | [address] [facility] | | | | | PELVIS W IV | Phone: | Hospital | | | | | [place] | [phone] | [place], [place] | | | | | CAT SCAN OF | Fax: | [phone] | | | | | CHEST | [phone] | Phone: | | | | | [place] | | [phone] | | | | | CT | | Fax: | | | | | ABDOMEN&PELV | | [phone] | | | | | IS | | | | | | | W/CONTRAST | | | +--------+--------+ + + + + Encounter Details +--------+ + + + + | Date | Type | Department | Care Team | Description | +--------+ + + + + | 06/13/ | Hospital | Diagnostic Imaging | Ailyn Wolff MD | | | 2017 | Encounter | Services at [facility] | [address] | | | | | [address] | Amita Hines [place], | | | | | Amita Hines Mailcode: | [place] [address] | | | | | [address] [facility] | [phone] | | | | | [place], [place] | | | | | | [address] | | | | | | [phone] | | | +--------+ + + + [...] at Time of Discharge + + + +---------+--------+ + | Medication | Sig | Dispensed | Refills | Start | End Date | | | | | | Date | | + + + +---------+--------+ + | clobetasol 0.05 % | Apply to affected | | 0 | | | | topical ointment | area | | | | | + + + +---------+--------+ + | MULTIVITAMIN ORAL | Take 1 tablet by | | 0 | | | | | mouth once daily. | | | | | + + + +---------+--------+ + | potassium chloride | Take 20 mEq by mouth | | 0 | | | | 20 mEq oral packet | once daily. | | | | | + + + +---------+--------+ + documented as of this encounter Plan of Treatment +--------+---------+ + + + | Date | Type | Specialty | Care Team | Description | +--------+---------+ + + + | 06/18/ | Office | Surgery | Ailyn Wolff MD | | | 2018 | Visit | | [address] | | | | | | Aimta Hines [place], | | | | | | [place] [address] | | | | | | [phone] | | | | | | | | +--------+---------+ + + + documented as of this encounter Procedures + +--------+ + + + | Procedure Name | Priori | Date/Time | Associated Diagnosis | Comments | | | ty | | | | + +--------+ + + + | CT CHEST, ABDOMEN | Routin | 06/13/2017 | Colorectal cancer | Results for this | | AND PELVIS W IV | e | 11:24 AM | (HCC) | procedure are in the | | CONTRAST | | PST | | results section. | + +--------+ + + + documented in this encounter Results CT CHEST, ABDOMEN AND PELVIS W IV CONTRAST (06/13/2017 11:24 AM PST) + + | Specimen | + + | | + + + + + | Narrative | Performed At | + + + | EXAM: CT of the chest, abdomen and pelvis with intravenous | [facility] | | contrast. HISTORY: Rectal cancer restaging COMPARISON: | RADIOLOGY VOICE | | 03/02/2017. TECHNIQUE: CT of the chest, abdomen and pelvis with | RECOGNITION | | non-ionic iodinated intravenous contrast. Coronal and sagittal | | | reformats were created. FINDINGS: CHEST: The visualized | | | thyroid is within normal limits. No thoracic adenopathy. No pleural or | | | pericardial effusions. The heart is normal in size. The lungs are | | | clear. LIVER: Unremarkable. BILIARY: The gallbladder is | | | surgically absent. PANCREAS: Unremarkable. SPLEEN: Unremarkable. | | | ADRENALS: Unremarkable. KIDNEYS/URETERS: Multiple left renal | | | cortical hypodensities most consistent with simple cysts are stable. | | | PELVIC ORGANS/BLADDER: Fibroid uterus. The urinary bladder is | | | unremarkable. GI TRACT: Scattered colonic diverticula are noted. | | | Postsurgical changes consistent with a Velasquez pouch and left lower | | | quadrant colostomy with parastomal hernia containing small bowel. | | | Previous left pelvic rim-enhancing collection has resolved. Stable | | | surgical drain terminating in the deep pelvis. Mesorectal mass | | | continues to decrease in size to 2.7 x 1.2 cm (image 14), previously, | | | 3.0 x 1.4 cm. PERITONEUM: No free air or fluid. LYMPH NODES: | | | No adenopathy. VESSELS: Scattered atherosclerotic calcifications are | | | noted. BONES AND SOFT TISSUES: Unremarkable. IMPRESSION: | | | Since the 03/02/2017, interval decreased size of the mesorectal mass. | | | Interval resolution of the left pelvic rim-enhancing collection. | | | I have personally reviewed the images and, if necessary, edited the | | | report. I agree with the report as now presented. | | + + + + + | Procedure Note | + + | Service Account, Radiant Res In Interface - 06/13/2017 11:49 AM PST EXAM: CT of the | | chest, abdomen and pelvis with intravenous contrast.HISTORY: Rectal cancer | | restagingCOMPARISON: 03/02/2017.TECHNIQUE: CT of the chest, abdomen and pelvis with | | non-ionic iodinated intravenous contrast. Coronal and sagittal reformats were | | created.FINDINGS:CHEST: The visualized thyroid is within normal limits. No thoracic | | adenopathy. No pleural or pericardial effusions. The heart is normal in size. The lungs | | are clear.LIVER: Unremarkable.BILIARY: The gallbladder is surgically absent.PANCREAS: | | Unremarkable.SPLEEN: Unremarkable.ADRENALS: Unremarkable.KIDNEYS/URETERS: Multiple left | | renal cortical hypodensities most consistent with simple cysts are stable.PELVIC | | ORGANS/BLADDER: Fibroid uterus. The urinary bladder is unremarkable.GI TRACT: Scattered | | colonic diverticula are noted. Postsurgical changes consistent with a Velasquez pouch and | | left lower quadrant colostomy with parastomal hernia containing small bowel. Previous | | left pelvic rim-enhancing collection has resolved. Stable surgical drain terminating in | | the deep pelvis.Mesorectal mass continues to decrease in size to 2.7 x 1.2 cm (image | | 14), previously, 3.0 x 1.4 cm.PERITONEUM: No free air or fluid.LYMPH NODES: No | | adenopathy.VESSELS: Scattered atherosclerotic calcifications are noted.BONES AND SOFT | | TISSUES: Unremarkable.IMPRESSION: Since the 03/02/2017, interval decreased size of the | | mesorectal mass. Interval resolution of the left pelvic rim-enhancing collection.I have | | personally reviewed the images and, if necessary, edited the report. I agree with the | | report as now presented. | | | |GI TRACT: Scattered colonic diverticula are noted. Postsurgical changes consistent with a H artman pouch and left lower quadrant colostomy with parastomal hernia containing small bowel . Previous left pelvic | |rim-enhancing collection has resolved. Stable surgical drain terminating in the deep pelvis . | | | |Mesorectal mass continues to decrease in size to 2.7 x 1.2 cm (image 14), previously, 3.0 x 1.4 cm. | | | |PERITONEUM: No free air or fluid. | | | |LYMPH NODES: No adenopathy. | |VESSELS: Scattered atherosclerotic calcifications are noted. | | | |BONES AND SOFT TISSUES: Unremarkable. | | | |IMPRESSION: | | | |Since the 03/02/2017, interval decreased size of the mesorectal mass. Interval resolution of the left pelvic rim-enhancing collection. | | | | | |I have personally reviewed the images and, if necessary, edited the report. I agree with t he report as now presented. | + + + +---------+ + + | Performing | Address | City/State/Zipcode | Phone Number | | Organization | | | | + +---------+ + + | [facility] | | | | | VOICE RECOGNITION | | | | + +---------+ + + documented in this encounter Visit Diagnoses + + | Diagnosis | + + | Colorectal cancer (HCC) Malignant neoplasm of rectosigmoid junction | + + documented in this encounter Administered Medications + +---------+ +--------+------+------+ | Medication Order | MAR | Action | Dose | Rate | Site | | | Action | Date | | | | + +---------+ +--------+------+------+ | iohexol (OMNIPAQUE) 350 mg | IV Push | 20 | 100 mL | | | | iodine/mL injection 100 mL 100 | | 17 11:20 | | | | | mL, intravenous, ONCE, 1 dose, | | AM PST | | | | | Mon 17 at 1200 | | | | | | + +---------+ +--------+------+------+ +---+---+ | | | +---+---+ documented in this encounter"
--- OUTSIDE RECORDS SUMMARY | ~2019-06-11 | XMS | Encounter Summary ---
Demographics + + + | Address | [address] | | | [place] [address] | + + + | Home Phone | | + + + | Preferred Language | Unknown | + + + | Marital Status | Single | + + + | Lutheran Affiliation | NON | + + + | Race | White | + + + | Ethnic Group | Not or | + + + Author + + + | Author | [facility] | + + + | Organization | [facility] | + + + | Address | Unknown | + + + | Phone | Unavailable | + + + Support + + +---------+ + | Name | Relationship | Address | Phone | + + +---------+ + | Darrius Quintana | ECON | Unknown | | + + +---------+ + Care Team Providers + +------+ + | Care Industrial Welder Name | Role | Phone | + [...] | +--------+ + + + + | 02/24/ | Abstract | Digestive Health | Ailyn Wolff MD | Medical Records | | 2017 | | Center at [facility] [address] | [address] | Review | | | | [address] | Amita Hines [place], | | | | | Mailcode: [place] | [place] [address] | | | | | for Health and | [phone] | | | | | [facility] | | | | | | [place], [place] | | | | | | [address] | | | | | | [phone] | | | +--------+ + + + [...] | | | | | Amita Hines [place], | | | | | | [place] [address] | | | | | | [phone] | | | | | | | | +--------+---------+ + + + documented as of this encounter Visit Diagnoses Not on filedocumented in this encounter"
--- OUTSIDE RECORDS SUMMARY | ~2019-06-11 | XMS | Encounter Summary ---
Demographics + + + | Address | [address] | | | [place] [address] | + + + | Home Phone | | + + + | Preferred Language | Unknown | + + + | Marital Status | Single | + + + | Jewish Affiliation | NON | + + + | Race | White | + + + | Ethnic Group | Not or | + + + Author + + + | Author | [facility] | + + + | Organization | [facility] | + + + | Address | Unknown | + + + | Phone | Unavailable | + + + Support + + +---------+ + | Name | Relationship | Address | Phone | + + +---------+ + | Darrius Quintana | ECON | Unknown | | + + +---------+ + Care Team Providers + +------+ + | Care Bar Waiter/Waitress Name | Role | Phone | + +------+ + | Kristian Anderson DO | PCP | | + +------+ + Reason for Visit +---------+ + | Reason | Comments | +---------+ + | Post Op | | +---------+ + Encounter Details +--------+ + + + + | Date | Type | Department | Care Team | Description | +--------+ + + + + | 07/06/ | Telephone | Digestive Health | Ailyn Wolff MD | Post Op | | 2017 | | Center at [facility] [address] | [address] | | | | | [address] | Amita Hines [place], | | | | | Mailcode: Center | [place] [address] | | | | | for Health and | [phone] | | | | | [facility] 2 | | | | | | [place], [place] | | | | | | [address] | | | | | | [phone] | | | +--------+ + + + [...] | | | | | Amita Hines [place], | | | | | | [place] [address] | | | | | | [phone] | | | | | | | | +--------+---------+ + + + documented as of this encounter Visit Diagnoses Not on filedocumented in this encounter"
--- OUTSIDE RECORDS SUMMARY | ~2019-06-11 | XMS | Encounter Summary ---
Demographics + + + | Address | [address] | | | [place] [address] | + + + | Home Phone | | + + + | Preferred Language | Unknown | + + + | Marital Status | Single | + + + | Denominational Affiliation | NON | + + + | Race | White | + + + | Ethnic Group | Not or | + + + Author + + + | Author | [facility] | + + + | Organization | [facility] | + + + | Address | Unknown | + + + | Phone | Unavailable | + + + Support + + +---------+ + | Name | Relationship | Address | Phone | + + +---------+ + | Darrius Quintana | ECON | Unknown | | + + +---------+ + Care Team Providers + +------+ + | Care Instructor Pilot Name | Role | Phone | + +------+ + | Justin Kristian | PCP | | + +------+ + Reason for Visit + + + | Reason | Comments | + + + | Outside Records | Demographics | | Received | | + + + Encounter Details +--------+ + + + + | Date | Type | Department | Care Team | Description | +--------+ + + + + | 09/22/ | Abstract | Digestive Health | Mariella, Ailyn C, MD | Outside Records | | 2017 | | Center at [facility] [address] | [address] | Received | | | | [address] | Amita Hines [place], (Demographics) | | | | Mailcode: [place] | [place] [address] | | | | | for Health and | [phone] | | | | | [place] [address] | | | | | | [place], [place] | | | | | | [address] | | | | | | [phone] | | | +--------+ + + + + Social History + +-------+ +--------+------+ | Tobacco Use | Types | Packs/Day | Years | Date | | | | | Used | | + +-------+ +--------+------+ | Never Assessed | | | | | + +-------+ +--------+------+ + + + | Sex Assigned at [...] | | | | | Amita Hines [place], | | | | | | [place] [address] | | | | | | [phone] | | | | | | | | +--------+---------+ + + + documented as of this encounter Visit Diagnoses Not on filedocumented in this encounter"
--- OUTSIDE RECORDS SUMMARY | ~2019-06-11 | XMS | Encounter Summary ---
Demographics + + + | Address | [address] | | | [place] [address] | + + + | Home Phone | | + + + | Preferred Language | Unknown | + + + | Marital Status | Single | + + + | Buddhist Affiliation | NON | + + + | Race | White | + + + | Ethnic Group | Not or | + + + Author + + + | Author | [facility] | + + + | Organization | [facility] | + + + | Address | Unknown | + + + | Phone | Unavailable | + + + Support + + +---------+ + | Name | Relationship | Address | Phone | + + +---------+ + | Darrius Quintana | ECON | Unknown | | + + +---------+ + Care Team Providers + +------+ + | Care Claims Director Name | Role | Phone | + +------+ + | Kristian Andersno DO | PCP | | + +------+ + Encounter Details +--------+ + + + + | Date | Type | Department | Care Team | Description | +--------+ + + + + | 05/28/ | MyChart | Digestive Health | Ailyn Wolff MD | RE: surgery | | 2019 | Encounter | Center at [facility] [address] | [address] | | | | | [address] | Amita Hines [place], | | | | | Mailcode: [place] | [place] [address] | | | | | for Health and | [phone] | | | | | [facility] [address] | | | | | | [place], [place] | | | | | | [address] | | | | | | [phone] | | | +--------+ + + + [...] | | | | | Amita H[place], | | | | | | [place] [address] | | | | | | [phone] | | | | | | | | +--------+---------+ + + + documented as of this encounter Visit Diagnoses Not on filedocumented in this encounter"
--- OUTSIDE RECORDS SUMMARY | ~2019-06-11 | XMS | Encounter Summary ---
Demographics + + + | Address | [address] | | | [place] [address] | + + + | Home Phone | | + + + | Preferred Language | Unknown | + + + | Marital Status | Single | + + + | Episcopal Affiliation | NON | + + + | Race | White | + + + | Ethnic Group | Not or | + + + Author + + + | Author | [facility] | + + + | Organization | [facility] | + + + | Address | Unknown | + + + | Phone | Unavailable | + + + Support + + +---------+ + | Name | Relationship | Address | Phone | + + +---------+ + | Darrius Quintana | ECON | Unknown | | + + +---------+ + Care Team Providers + +------+ + | Care Bid Manager Name | Role | Phone | + +------+ + | Justin Kristian | PCP | | + +------+ + Reason for Visit + + + | Reason | Comments | + + + | Conference Report | GI Oncology Planning Conference | + + + Encounter Details +--------+ + + + + | Date | Type | Department | Care Team | Description | +--------+ + + + + | 03/10/ | Documentati | Digestive Health | Ailyn Wolff MD | Conference Report | | 2017 | on | [place] at [facility] [address] | [address] | (GI Oncology | | | | [address] | Amita Hines [place], | Planning Conference) | | | | Mailcode: [place] | [place] [address] | | | | | for Health and | [phone] | | | | | [facility] 2 | | | | | | [place], [place] | | | | | | [address] | | | | | | [phone] | | | +--------+ + + + [...] [address] | | | | | | [place], | | | | | | [place] [address] | | | | | | [phone] | | | | | | | | +--------+---------+ + + + documented as of this encounter Visit Diagnoses Not on filedocumented in this encounter"
--- OUTSIDE RECORDS SUMMARY | ~2019-06-11 | XMS | Encounter Summary ---
Demographics + + + | Address | [address] | | | [place] [address] | + + + | Home Phone | | + + + | Preferred Language | Unknown | + + + | Marital Status | | + + + | Jew Affiliation | Unknown | + + + | Race | Unknown | + + + | Ethnic Group | Unknown | + + + Author + + + | Author | [facility] | | | and [place] | + + + | Organization | [facility] | | | and [place] | + + + | Address | Unknown | + + + | Phone | Unavailable | + + + Support + + + + + | Name | Relationship | Address | Phone | + + + + + | Lamar Phillips | REZA | [place] [address] | | + + + + + Care Team Providers + +------+ + | Care Ip Paralegal Name | Role | Phone | + +------+ + | Kristian Anderson DO | PCP | | + +------+ + Encounter Details +--------+ + + + + | Date | Type | Department | Care Team | Description | +--------+ + + + + | 05// | Hospital | [facility] | Joel Alfaro DO | | | 2017 | Encounter | [facility] | [address] | | | | | ONCOLOGY [address] | [place], [place] | | | | | [place], | [address] | | | | | [place] [address] | | | | | | [phone] | | | +--------+ + + + [...] +---------+ + + | dexamethasone | Take 1 tablet by | 30 | 5 | 10/19/19 | | | (DECADRON) 4 mg | mouth Daily. On Days | tablet | | 17 | 7 | | tabletIndications: | 2 and 3 of each | | | | | | Rectal cancer (HCC) | cycle. | | | | | + + [...] + + + +---------+ + + | LORazepam (ATIVAN) | Take 1 tablet by | 20 | 5 | 10/19/19 | | | 1 mg | mouth every 6 hours | tablet | | 17 | 7 | | tabletIndications: | as needed | | | | | | Rectal cancer (HCC) | (Nausea/Vomiting). | | | | | + + + +---------+ + + | mupirocin | Apply topically 2 | | 0 | | | | (BACTROBAN) 2% | times daily. | | | | 8 | | ointment | | | | | | + + + +---------+ + + | ondansetron | Take 1 tablet by | 30 | 5 | 10/20/19 | | | (ZOFRAN) 8 MG | mouth 2 times daily. | tablet | | 17 | 7 | | tabletIndications: | On Days 2 and 3 of | | | | | | Rectal cancer (HCC) | each cycle. Starting | | | | | | | Day 4, take 8 mg | | | | | | | every 8 hours as | | | | | | | needed for | | | | | | | nausea/vomiting. | | | | | + + + +---------+ + + | potassium chloride | Take 1 tablet by | 30 | 5 | 10/19/19 | | | (K-DUR) 20 mEq ER | mouth Daily. | tablet | | 17 | 7 | | tabletIndications: | | | | | | | Rectal cancer (HCC) | | | | | | + + + +---------+ + + documented as of this encounter Progress Notes Joel Alfaro DO - 12/15/2016 12:00 AM PDTPATIENT: Jenn Parada : 1960 DOS: 12/15/2016 Radiation Oncology Follow-up Clinic Note ICD-10/Diagnosis: C20 - Malignant neoplasm of rectum, Diagnosed 09/02/2016 (Active) CC: Marty Thacker M.D. Wilfredo Justin M.D. Robert C Quackenbush, M.D. Chief Complaint/History of Present Illness: Rectal cancer Jenn Parada resents today to review the multimodality management of her previously diagnosed rectal cancer. She is a 56-year-old woman from [place], [place] who has had an intermitt ent history of rectal bleeding over 3 years progressing with rectal urgency, weight loss an d progressive pain leading her to the [facility] emergency department on July [address] of the abdomen and pelvis was performed on July 20, 2016 describing an 11 cm very complex mass filling the pelvis. She was admitted by Dr. Thacker who took to the operat ing room on July 21, 2016 performing a laparotomy due to concerns of an abscess versus tumor a second CT imaging noting the operative report that over 200 mL of pus and dark pete tted blood were taken from the cavity of the mass. A preoperative CEA level was found to b e elevated at 10.56. A left lower quadrant end colostomy was created. She returned on Aug for a colonoscopy where upon physical exam the tumor was palpated and describ ed as nearly circumferential. The scope was not able to be passed beyond the tumor and bi opsies were taken at that time. Final pathology of the low rectal tumor biopsy was describ ed as a tubular adenoma. Completion staging workup included a CT of the chest and thorax o n September 17, 2016 that was negative for metastatic disease. She was then seen by Dr. Ailyn Wolff at [facility] regarding surgical management on October 05, 2016 at which time an MRI of the rectum was also performed along with a CT of the abdomen, and pel vis. The MRI confirmed a 7.7 x 6.2 rectal mass with extension through the colonic wall mu ltiple sites measuring 9.6 cm in length described as a T4b lesion for staging purposes wit h no obvious mesorectal or extra mesorectal lymph nodes. I personally reviewed these image s and agree with the stated findings. Her case was discussed at the GI multidisciplinary tumor Board at [facility] with recommendations for repeat exam under anesthesia with larger biops ies for mutational analysis, start FOLFOX chemotherapy and restage after 6 cycles. If a go od response is sustained consider chemoradiotherapy followed by surgery with pelvic exonera tion. She has completed 5 cycles of FOLFOX and is scheduled for cycle 6 on December 27, 2016. She states that since beginning her chemotherapy, her sacral pain has diminished significan tly allowing her to sit normally without padding. She has noticed mildly thinning hair bu t otherwise has been tolerating her treatment quite well. She states that she was called heather segura [facility] stating that she would be seen by the surgeon at the end of December with MRI preoperati vely and CT scan also at the end of December suggesting that radiotherapy would follow surgery. She has no other questions or concerns and is somewhat confused regarding the plan moving forward. She has no specific concerns or complaints and presents today to discuss the ra diotherapeutic plan. Review of Systems: ROS ConstitutionalAbnormal - Complains of a moderate appetite Nausea in AM, also pain in j aw with eating. Complains of night sweats. Denies fever, rigors / chills and change in weig ht.ROS EyesNormal - Denies blurred vision, double vision and visual difficulties.ROS ENMTNo rmal - Denies dysphagia, esophagitis, sinusitis and sputum production.ROS NeckAbnormal - Co mplains of neck pain. Denies neck masses, muscle weakness, decreased range of motion and s welling of the neck.ROS IntegumentaryNormal - Denies blistering, bruising, dry skin, prurit us and rash.ROS CardiovascularNormal - Denies arrhythmias, chest pain, dyspnea and palpitat ions.ROS RespiratoryNormal - Denies cough, dyspnea, hemoptysis and wheezing.ROS Gastrointes tinalAbnormal - Complains of change in bowel habits Daily bowel movements alternate between loose and constipation. Denies abdominal pain, melena / GI bleeding, nausea and vomiting. ROS Genitourinary (F)Normal - Denies dysuria, hematuria, nocturia, urgency and urine color change.ROS MusculoskeletalAbnormal - Complains of joint pain Neck pain. Denies arthritis, muscle weakness and decreased range of motion.ROS NeurologicAbnormal - Complains of motor w eakness numbness in hand and feet with any change in temperature. 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 Denies mo od swings and euphoria.ROS EndocrineNormal - Denies diabetes, hot flashes and thyroid dise ase.ROS Hematologic/LymphaticNormal - Denies easy bruising and tender or enlarged lymph nod es. Medications: BUPROPION HYDROCHLORIDE (150 mg) TABLET, EXTENDED RELEASE ORAL ac am Biotin 10 MG CLOBETASOL PROPIONATE (0.05 %) CREAM TOPICAL Take as Directed Hydrocodone-acetaminophen (5 -325 mg) TABLET Take as Directed Multiple Vitamins-Minerals NYSTATIN POWDER TOPICAL Take as Directed Vitamin C TABLET ascorbic acid (VITAMIN C) 500 mg ibuprofen (ADVIL) 200 mg potassium chloride (K-DUR) 20 mEq ER Allergies: No Known Allergies Physical Exam: Performed on 12/15/2016, 09:17Weight 68.0 kg Temperature 36.0 C (LOW) Pulse 65 / min Respiration 1 6 / min BP132/70 mm(hg) O2 Sat 98 % Pain 0 PE ConstitutionalAbnormal - Presents with premature or advanced chronologic age. No eviden ce of impaired alertness, inadequate appearance, uncooperativeness, developmental delays, a ltered mood and affect and disorientation.PE HeadNormal - No evidence of abnormal cephalic and scars. Hair is thinning globally.PE EyesNormal - No evidence of conjunctivitis and scl eral abnormalities.PE NeckNormal - No evidence of tender or enlarged lymph nodes, neck abno rmalities and restricted range of motion.PE Integumentary Abnormal - Presents with dry skin . No evidence of bruising, erythema, nails changes, altered pigmentation, rash and urticari a.PE ChestNormal - No evidence of chest abnormalities.PE CardiovascularNormal - No evidence of arterial pulse(s) abnormalities, abnormal heart rate and heart arrhythmia.PE Respirato ryNormal - No evidence of abnormal breath sounds.PE AbdomenNormal - No evidence of abdomina l abnormalities and abnormal bowel sounds. There is a colostomy in place that is functional as well as a secondary drain. No signs of infection noted. Abdomen is otherwise soft pos itive bowel sounds.PE ExtremitiesNormal - No evidence of lower extremities abnormalities an d upper extremities abnormalities.PE MusculoskeletalNormal - No evidence of bone abnormali ties, joint abnormalities and compromised muscle tone.PE Neurologic Normal - No evidence of impaired cranial nerve(s), uncoordinated gait, motor impairment and impaired reflexes.PE P sychiatricNormal - No evidence of altered affect, lack of comprehension and disorientation. PE Hematologic/LymphaticNormal - No evidence of tender or enlarged lymph nodes, tender or enlarged neck lymph nodes and petechiae / purpura / ecchymosis. Questionnaires: Are you having pain?No Labs: See EMR for complete list Impression/Plan: C20 - Malignant neoplasm of rectum, Diagnosed 09/02/2016 (Active) Stage IIC, T4b, N0, M0. Locally advanced colorectal carcinoma Jenn Parada is a 56-year-old woman who has recently been diagnosed with a symptomatic, local ly advanced rectal carcinoma. She has been evaluated for metastasis with a CT of the chest , abdomen, and pelvis as well as repeat imaging of an MRI pelvis and CT of the abdomen for staging purposes. After the multidisciplinary GI team at [facility] reviewed her case, a recomme ndation for chemotherapy followed by chemoradiotherapy followed by surgery was advised. Ov windy we reviewed her staging as IIc(T4b,N0,M0) based upon imaging reviewed. I discussed wi th her preoperative chemoradiotherapy approaches treating the primary plus draining pelvic lymph nodes comprehensively over 28 treatments. These treatments will be coordinated with edical oncology after appropriate restaging with CT and MR for treatment response assessmen t. Regarding the timing of events, I am unaware of any changes to the original plan based upon the [facility] recommendation for neoadjuvant chemotherapy followed by concurrent chemoradi otherapy followed by surgery. We will contact [facility] to verify if there has been a change in plan, otherwise he will return for planned simulation at her next chemotherapy with restag ing imaging prior to initiating chemoradiotherapy. She verbalized her understanding of the treatment recommendation and wishes to proceed as described above. She was encouraged ca ll our clinic with any further questions or concerns regarding the next steps in her therap y. Thank you for allowing me to participate in the care of Jenn Parada. If you should have any questions regarding this evaluation, please do not hesitate to contact me. Joel Alfaro D.O., NITESHR Radiation Oncologist Department of Radiation Oncology [facility] Electronically signed by Joel Alfaro D.O. This note was transcribed using [employer] speech recognition software. As a result, there ma y be unintended for medical and/or spelling errors. Every attempt is made to correct dicta tion. If there are any questions or errors please contact our office. CSN: [id number] signed by Joel Alfaro DO at 12/16/2016 1:21 PM PDTdocumichael stewart in this encounter Plan of Treatment Not on filedocumented as of this encounter Visit Diagnoses Not on filedocumented in this encounter"
--- OUTSIDE RECORDS SUMMARY | ~2019-06-11 | XMS | Encounter Summary ---
Demographics + + + | Address | [address] | | | [place] [address] | + + + | Home Phone | | + + + | Preferred Language | Unknown | + + + | Marital Status | Single | + + + | Taoist Affiliation | NON | + + + | Race | White | + + + | Ethnic Group | Not or | + + + Author + + + | Author | [facility] | + + + | Organization | [facility] | + + + | Address | Unknown | + + + | Phone | Unavailable | + + + Support + + +---------+ + | Name | Relationship | Address | Phone | + + +---------+ + | Darrius Quintana | ECON | Unknown | | + + +---------+ + Care Team Providers + +------+ + | Care Blood Splatter Analyst Name | Role | Phone | + [...] | | 2018 | | Center at [facility] [address] | [address] | - Disregard | | | | [address] | [place], | | | | | Mailcode: [place] | [place] [address] | | | | | for Health and | [phone] | | | | | [facility] [address] | | | | | | [place], [place] | | | | | | [address] | | | | | | [phone] | | | +--------+ + + + [...] | | | | | [address] [place], | | | | | | [place] [address] | | | | | | [phone] | | | | | | | | +--------+---------+ + + + documented as of this encounter Visit Diagnoses Not on filedocumented in this encounter"
--- OUTSIDE RECORDS SUMMARY | ~2019-06-11 | XMS | Encounter Summary ---
Demographics + + + | Address | [address] | | | [place] [address] | + + + | Home Phone | | + + + | Preferred Language | Unknown | + + + | Marital Status | | + + + | Confucianist Affiliation | Unknown | + + + | Race | Unknown | + + + | Ethnic Group | Unknown | + + + Author + + + | Author | [facility] | | | and [place] | + + + | Organization | [facility] | | | and [place] | + + + | Address | Unknown | + + + | Phone | Unavailable | + + + Support + + + + + | Name | Relationship | Address | Phone | + + + + + | Lamar Phillips | REZA | [place] [address] | | + + + + + Care Team Providers + +------+ + | Care Technology Director Name | Role | Phone | + +------+ + | Kristian Anderson DO | PCP | | + +------+ + Reason for Visit +--------+ + | Reason | Comments | +--------+ + | Other | | +--------+ + Encounter Details +--------+ + + + + | Date | Type | Department | Care Team | Description | +--------+ + + + + | 06/02/ | Telephone | [facility] | Joel Alfaro DO | Other | | 2017 | | [facility] | [address] | | | | | ONCOLOGY CLINIC [address] | [place], [place] | | | | | [address] [place] | [address] | | | | | [place] [address] | | | | | | [phone] | | | +--------+ + + + [...] as of this encounter Plan of Treatment Not on filedocumented as of this encounter Visit Diagnoses Not on filedocumented in this encounter"
--- OUTSIDE RECORDS SUMMARY | ~2019-06-11 | XMS | Encounter Summary ---
Demographics + + + | Address | [address] | | | [place] [address] | + + + | Home Phone | | + + + | Preferred Language | Unknown | + + + | Marital Status | | + + + | Zoroastrian Affiliation | Unknown | + + + | Race | Unknown | + + + | Ethnic Group | Unknown | + + + Author + + + | Author | [facility] | | | and [place] | + + + | Organization | [facility] | | | and [place] | + + + | Address | Unknown | + + + | Phone | Unavailable | + + + Support + + + + + | Name | Relationship | Address | Phone | + + + + + | Lamar Phillips | REZA | [place] [address] | | + + + + + Care Team Providers + +------+ + | Care Athletic Field Custodian Name | Role | Phone | + +------+ + | Kristian Anderson DO | PCP | | + +------+ + Encounter Details +--------+ + + + + | Date | Type | Department | Care Team | Description | +--------+ + + + + | 11/15/ | Documentati | [facility] | Janel, | | | 2017 | on | [facility] | Mike White MD [address] | | | | | ONCOLOGY CLINIC [address] | [address] [place] | | | | | [place] | [place] [address] | | | | | [place] [address] | [phone] | | | | | [phone] | | | +--------+ + + + [...]
--- OUTSIDE RECORDS SUMMARY | ~2019-06-11 | XMS | Encounter Summary ---
Demographics + + + | Address | [address] | | | [place] [address] | + + + | Home Phone [...] Author + + + | Author | [facility] | + + + | Organization | [facility] | + + + | Address | Unknown | + + + | Phone | Unavailable | + + + Support + + +---------+ + | Name | Relationship | Address | Phone | + + +---------+ + | Darrius Quintana | ECON | Unknown | | + + +---------+ + Care Team Providers + +------+ + | Care Baling Machine Operator Name | Role | Phone | + [...] | +--------+ + + + + | 08/21/ | Abstract | [facility] | Ailyn Wolff MD | Outside Records | | 2019 | | Center at [facility] [address] | [address] | Received | | | | [address] | [place] [address], | | | | | Mailcode: [place] | [place] [address] | | | | | for Health and | [phone] | | | | | [facility] [address] | | | | | | [place], [place] | | | | | | [address] | | | | | | [phone] | | | +--------+ + + + [...] | | | | | [address] [place], | | | | | | [place] [address] | | | | | | [phone] | | | | | | | | +--------+---------+ + + + documented as of this encounter Visit Diagnoses Not on filedocumented in this encounter"
--- OUTSIDE RECORDS SUMMARY | ~2019-06-11 | XMS | Encounter Summary ---
Demographics + + + | Address | [address] | | | [place] [address] | + + + | Home Phone | | + + + | Preferred Language | Unknown | + + + | Marital Status | Single | + + + | Anabaptist Affiliation | NON | + + + | Race | White | + + + | Ethnic Group | Not or | + + + Author + + + | Author | [facility] | + + + | Organization | [facility] | + + + | Address | Unknown | + + + | Phone | Unavailable | + + + Support + + +---------+ + | Name | Relationship | Address | Phone | + + +---------+ + | Darrius Quintana | ECON | Unknown | | + + +---------+ + Care Team Providers + +------+ + | Care Latex Ribbon Machine Operator Name | Role | Phone | + +------+ + | Justin Kristian DO | PCP | | + +------+ + Reason for Visit + + + | Reason | Comments | + + + | New patient | | | consultation | | + + + | Rectal cancer | | + + + Consultation (Urgent) [...] | Malignant | Marty Toledo MD | [address] | | | | | neoplasm of | [place] | [address] | | | | | rectum | SURGICAL | [facility] | | | | | | [facility] [address] | [place], [place] | | | | | | [address] | [address] | | | | | | [address] | Phone: | | | | | | [place], | [phone] | | | | | | [place] [address] | Fax: | | | | | | Phone: | [phone] | | | | | | [phone] | | | | | | | Fax: | | | | | | | [phone] | | +--------+--------+ + + + + Encounter Details +--------+---------+ + + + | Date | Type | Department | Care Team | Description | +--------+---------+ + + + | 10/05/ | Office | Digestive Health | Ailyn Wolff MD | CA of rectum (HCC) | | 2017 | Visit | [place] [facility] [address] | [address] | (Primary Dx) | | | | [address] | [address] [place], | | | | | Mailcode: [place] | [place] [address] | | | | | for Health and | [phone] | | | | | [facility] [address] | | | | | | [place], [place] | | | | | | [address] | | | | | | [phone] | | | +--------+---------+ + + + [...] + + + | Blood Pressure | 146/74 | 10/05/2016 1:00 PM | | | | | PDT | | + + + + + | Pulse | 106 | 10/05/2016 1:00 PM | | | | | PDT | | + + + + + | Temperature | 38.3 C (101 F) | 10/05/2016 1:00 PM | | | | | PDT | | + + + + + | Respiratory Rate | 16 | 10/05/2016 1:00 PM | | | | | PDT | | + + + + + | Oxygen Saturation | - | - | | + + + + + | Inhaled Oxygen | - | - | | | Concentration | | | | + + + + + | Weight | 64 kg (141 lb) | 10/05/2016 1:00 PM | | | | | PDT | | + + + + + | Height | 160 cm (5' 3") | 10/05/2016 1:00 PM | | | | | PDT | | + + + + + | Body Mass Index | 24.98 | 10/05/2016 1:00 PM | | | | | PDT | | + + + + + documented in this encounter Patient Instructions Patient Instructions Ailyn Wolff MD - 10/05/2016 1:00 PM 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 Present at the [facility] Multidisciplinary GI Oncology Conference on 10/07/16. Further recommendations to follow. Likely neoadjuvant chemoradiation. Plans to start chemotherapy on 10/18/16. Radiation will start a week later. Cc[facility] [place] by Ailyn Wolff MD at 017 2:25 PM PDT documented in this encounter Progress Notes Emily Gresham MA - 10/05/2016 1:00 PM PDTExamination chaperoned by Emily Levi CMA. Ailyn Mcfarland MD - 10/05/2016 1:00 PM PDT COLON AND RECTAL SURGERY Attending History and Physical New Patient Assessment: 55 y.o. female with htn, elevated lipids, heartburn, nephrolithiasis, and liche n sclerosus endoscopically obstructing mriT4 N0 M0 rectal mass (6 cm from verge) invading vagina rectal urgency and a lot of rectal bleeding on 07/19/16 went to the [facility] ED CT abdomen/pelvis with IV contrast [...] (10/05/16) no liver metastases rigid proctoscopy by ut (10/05/16) 6 cm from anal verge presented at the [facility] Multidisciplinary GI Oncology Conference on 10/07/16 diagnosis: [...] wishes to proceed with the above plan. acceptable nutrition albumin (09/13/16) 3.5 quit smoking on 07/19/16 Plan: Await final read of pelvic MRI and CT abdomen/pelvis with IV contrast from today. Present at the [facility] Multidisciplinary GI Oncology Conference on 10/07/16. Further recommendations to follow. She plans to start chemotherapy on 10/18/16. Radiation will start a week later. Chief Complaint: 55 y.o. female with intermittent rectal bleeding since ~2013 and tailbone pain since 07/19/17. History of Present Illness: intermittent rectal bleeding since ~2013 She had rectal urgency and a lot of rectal bleeding on 07/19/16. She went to the [facility] ED. CT abdomen/pelvis with IV contrast (07/20/16) [...] her diet. Nausea but no emesis. Worsening appetite. S he comes for urgent evaluation of her rectal cancer. We had arranged for the pelvic MRI an d the CT of the chest/abdomen/pelvis with IV contrast today. Note: She quit smoking on 07/19/16. No [...] wave lithotripsy Excision of 2 facial cyst Allergies: No Known Allergies Current Outpatient Prescriptions Medication Sig ASCORBIC ACID (VITAMIN C ORAL) Take 1 tablet by mouth once daily. buPROPion SR 150 mg oral tablet extended release Take 150 mg by mouth once daily in the morning. clobetasol 0.05 % topical cream Apply to affected area two times daily. Apply for up t o 2 weeks. HYDROcodone-acetaminophen (NORCO) 5-325 mg oral tablet Take 1 tablet by mouth every fou r hours as needed. No current facility-administered medications for this visit. 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 Recently, gaining weight. Fe vers and chills today. No cough, shortness of breath, chest pain, or chest pressure. See HPI. Wears glasses. All other systems reviewed and are negative. Physical exam: BP 146/74 | Pulse 106 | Temp (Src) 38.3 C (101 F) (Oral) | RR 16 | Ht 1 .6 m (5' 3") | Wt 64 kg (141 lb) | BMI 24.98 kg/(m^2) General: well-developed, well-nourished female in NAD [...] flat, white changes anteriorly Vaginal: lesion invading posterior wall Rectal: normal tone, mass, closest on the right, about 2 cm above puborectalis Rigid proctoscopy: lesion at 6 cm from anal verge With this New Referral patient, I spent 1 hour 15 minutes of [id number]-[id number] time, of which mo re than half the time was spent in counseling. 47 minute document review cc: Dr. Alfaro, Radiation Oncology at [facility] in [place]. documented in this encounter Plan of Treatment +--------+---------+ + + + | Date | Type | Specialty | Care Team | Description | +--------+---------+ + + + | 06/18/ | Office | Surgery | Ailyn Wolff MD | | | 2019 | Visit | | [address] | | | | | | [place], | | | | | | [place] [address] | | | | | | [phone] | | | | | | | | +--------+---------+ + + + documented as of this encounter Procedures + +--------+ + + + | Procedure Name | Priori | Date/Time | Associated Diagnosis | Comments | | | ty | | | | + +--------+ + + + | [place] | Routin | 10/28/2016 | CA of rectum (HCC) | | | PROCTOSIGMOIDOSCOPY, | e | 4:24 PM | | | | RIGID,DIAGNOS | | PDT | | | + +--------+ + + + documented in this encounter Visit Diagnoses + + | Diagnosis | + + | 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
--- OUTSIDE RECORDS SUMMARY | ~2019-06-11 | XMS | Encounter Summary ---
Demographics + + + | Address | [address] | | | [place] [address] | + + + | Home Phone | | + + + | Preferred Language | Unknown | + + + | Marital Status | Single | + + + | Cheondoism Affiliation | NON | + + + [...] Team Providers + +------+ + | Care Windmill Mechanic Name | Role | Phone | + [...] | +--------+ + + + + | 05/30/ | Abstract | Digestive Health | Ailyn Wolff MD | Medical Records | | 2019 | | Center at [facility] [address] | [address] | Review | | | | [address] | [address] [place], | | | | | Mailcode: [place] | [place] [address] | | | | | for Health and | [phone] | | | | | [facility] [address] | | | | | | [place], [place] | | | | | | [address] | | | | | | [phone] | | | +--------+ + + + [...] | | | | | [address] [place], | | | | | | [place] [address] | | | | | | [phone] | | | | | | | | +--------+---------+ + + + documented as of this encounter Visit Diagnoses Not on filedocumented in this encounter"
--- OUTSIDE RECORDS SUMMARY | ~2019-06-11 | XMS | Encounter Summary ---
Demographics + + + | Address | [address] | | | [place] [address] | + + + | Home Phone | | + + + | Preferred Language | Unknown | + + + | Marital Status | | + + + | Jew Affiliation | Unknown | + + + | Race | Unknown | + + + | Ethnic Group | Unknown | + + + Author + + + | Author | [facility] | | | and [place] | + + + | Organization | [facility] | | | and [place] | + + + | Address | Unknown | + + + | Phone | Unavailable | + + + Support + + + + + | Name | Relationship | Address | Phone | + + + + + | Lamar Phillips | REZA | [place] [address] | | + + + + + Care Team Providers + +------+ + | Care Electronics Parts Sales Representative Name | Role | Phone | + [...] neoplasm of | Mike C, | [address] [place] | | | | | rectum (HCC) | MD [address] | [place], | | | | | Procedures | [address] | [place] [address] | | | | | [place] | [place], | Phone: | | | | | [place] | [place] [address] | [phone] | | | | | INJECTION, | Phone: | Fax: | | | | | [address] [place] | [phone] | [phone] | | | | | O[place] | Fax: | | | | | | HCL | [phone] | | | | | | INJECTION, 1 | | | | | | | [place] | | | | | | | DEXAMETHASON | | | | | | | E SODIUM | | | | | | | PHOS, 1 MG | | | | | | | [place] | | | | | | | FOSAPREPITAN | | | | | | | T INJECTION, | | | | | | | 1 MG [place] | | | | | | | LORAZEPAM | | | | | | | INJECTION, 2 | | | | | | | MG [place] | | | | | | | OXALIPLATIN, | | | | | | | .5 MG [place] | | | | | | | LEUCOVORIN | | | | | | | CALCIUM | | | | | | | INJECTION, | | | | | | | 50 MG [place] | | | | | | | DIPHENHYDRAM | | | | | | | INE HCL | | | | | | | INJECTIO, 50 | | | | | | | MG [place] | | | | | | | METHYLPREDNI | | | | | | | SOLONE | | | | | | | INJECTION, | | | | | | | 125 MG [place] | | | | | | | ALBUTEROL | | | | | | | COMP CON, 1 | | | | | | | MG [place] | | | | | | | ALBUTEROL | | | | | | | NON-COMP | | | | | | | CON, 1 MG | | | | | | | MN | | | | | | | INJECTION, | | | | | | | FAMOTIDINE, | | | | | | | 20 MG [place] | | | | | | | NORMAL | | | | | | | SALINE | | | | | | | SOLUTION | | | | | | | INFUS, 500 | | | | | | | ML [place] | | | | | | | NORMAL | | | | | | | SALINE | | | | | | | SOLUTION | | | | | | | INFUS, 250 | | | | | | | ML [place] | | | | | | | STERILE | | | | | | | WATER/SALINE | | | | | | | , 10 ML [place] | | | | | | | CHEMOTHER, | | | | | | | IV PUSH,EA | | | | | | | ADD DRUG MN | | | | | | | CHEMOTHER, | | | | | | | IV INFUSION, | | | | | | | 1 HR MN | | | | | | | CHEMOTHER, | | | | | | | IV INFUSION, | | | | | | | EA HR MN | | | | | | | CHEMOTHER,NO | | | | | | | N-HORMONE | | | | | | | ANTI-NEOPL, | | | | | | | SUB-Q/IM MN | | | | | | | CHEMOTHER | | | | | | | HORMON | | | | | | | ANTINEOPL | | | | | | | SUB-Q/IM MN | | | | | | | NA FERRIC | | | | | | | GLUCONATE | | | | | | | COMPLEX, | | | | | | | 12.5 MG MN | | | | | | | IRON SUCROSE | | | | | | | INJECTION, | | | | | | | 1 MG | | | +--------+--------+ + + + + Encounter Details +--------+ + + + + | Date | Type | Department | Care Team | Description | +--------+ + + + + | 10/18/ | Hospital | [facility] | [place], | Rectal cancer (HCC) | | 2017 | Encounter | MED CTR CHEMO | Mike White MD [address] | | | | | INFUSION [address] | [address] [facility] | | | | | [place], | [place] [address] | | | | | [place] [address] | [phone] | | | | | [phone] | | | +--------+ + + + [...] Not on filedocumented as of this encounter Procedures + +--------+ + + + | Procedure Name | Priori | Date/Time | Associated Diagnosis | Comments | | | ty | | | | + +--------+ + + + | CBC WITH | STAT | 10/18/2016 | Rectal cancer | Results for this | | DIFFERENTIAL | | 8:58 AM | (HCC) | procedure are in the | | | | PDT | | results section. | + +--------+ + + + | LACTATE | STAT | 10/18/2016 | Rectal cancer | Results for this | | DEHYDROGENASE | | 8:58 AM | (HCC) | procedure are in the | | | | PDT | | results section. | + +--------+ + + + | CEA | STAT | 10/18/2016 | Rectal cancer | Results for this | | | | 8:58 AM | (HCC) | procedure are in the | | | | PDT | | results section. | + +--------+ + + + | COMPREHENSIVE | STAT | 10/18/2016 | Rectal cancer | Results for this | | METABOLIC PANEL | | 8:58 AM | (HCC) | procedure are in the | | | | PDT | | results section. | + +--------+ + + + documented in this encounter Results CBC with Differential (10/18/2016 8:58 AM PDT) + + + + + + | Component | Value | Ref Range | Performed | Pathologist | | | | | At | Signature | + + + + + + | WBC | 11.3 (H) | 4.0 - 11.0 K/uL | [facility] | | | | | | [facility] | | | | | [facility] | | | | | [facility] - | | | | | | LABORATORY | | + + + + + + | RBC | 3.43 (L) | 3.70 - 5.20 | [facility] | | | | | M/uL | [facility] | | | | | | [facility] | | | | | | [facility] - | | | | | | LABORATORY | | + + + + + + | Hemoglobin | 8.0 (L) | 11.5 - 16.0 | [facility] | | | | | g/dL | [facility] | | | | | | [facility] | | | | | | [facility] - | | | | | | LABORATORY | | + + + + + + | Hematocrit | 26.0 (L) | 34.0 - 47.0 % | [facility] | | | | | | [facility] | | | | | | [facility] | | | | | | [facility] - | | | | | | LABORATORY | | + + + + + + | MCV | 75.6 (L) | 83.0 - 101.0 fL | [facility] | | | | | | [facility] | | | | | | [facility] | | | | | | [facility] - | | | | | | LABORATORY | | + + + + + + | MCH | 23.3 (L) | 28.0 - 35.0 pg | [facility] | | | | | | [facility] | | | | | | [facility] | | | | | | [facility] - | | | | | | LABORATORY | | + + + + + + | MCHC | 30.8 (L) | 32.0 - 36.0 | [facility] | | | | | g/dL | [facility] | | | | | | [facility] | | | | | | [facility] - | | | | | | LABORATORY | | + + + + + + | RDW-CV | 17.2 (H) | <15.0 % | [facility] | | | | | | [facility] | | | | | | [facility] | | | | | | [facility] - | | | | | | LABORATORY | | + + + + + + | Platelet | 608 (H) | 140 - 440 K/uL | [facility] | | | Count | | | [facility] | | | | | | [facility] | | | | | | [facility] - | | | | | | LABORATORY | | + + + + + + | MPV | 6.1 | fL | [facility] | | | | | | [facility] | | | | | | [facility] | | | | | | [facility] - | | | | | | LABORATORY | | + + + + + + | % | 85.1 (H) | 45.0 - 82.0 % | [facility] | | | Neutrophils | | | [facility] | | | | | | [facility] | | | | | | CENTER - | | | | | | LABORATORY | | + + + + + + | % | 6.5 (L) | 20.0 - 45.0 % | [facility] | | | Lymphocytes | | | [facility] | | | | | | [facility] | | | | | | [facility]ENTER - | | | | | | LABORATORY | | + + + + + + | % Monocytes | 7.5 | 4.0 - 12.0 % | [facility] | | | | | | [facility] | | | | | | [facility] | | | | | | [facility] - | | | | | | LABORATORY | | + + + + + + | % | 0.6 | 0.0 - 5.0 % | [facility] [...] + + + + | Absolute | 9.60 (H) | 1.80 - 8.50 | [facility] | | | Neutrophils | | K/uL | [facility] | | | | | | [facility]ICAL | | | | | | CENTER - | | | | | | LABORATORY | | + + + + + + | Absolute | 0.70 | 0.60 - 3.20 | [facility] | | | Lymphocytes | | K/uL | [facility] | | | | | | [facility]ICAL | | | | | | CENTER - | | | | | | LABORATORY | | + + + + + + | Absolute | 0.80 | 0.00 - 1.00 | [facility] | | | Monocytes | | K/uL | [facility] | | | | | | [facility]ICAL | | | | | | CENTER - | | | | | | LABORATORY | | + + + + + + | Absolute | 0.10 | 0.00 - 0.40 | [facility] | [...] | | Basophils | | K/uL | [facility] | | | | | | [...] | + + + + + | [facility] | [address] | [place] | [phone] | | [facility] | | [address] | | | - LABORATORY | | | | + + + + + Comprehensive Metabolic Panel (10/18/2016 8:58 AM PDT) + + + + + + | Component | Value | Ref Range | Performed | Pathologist | | | | | At | Signature | + + + + + + | Na | 141 | 136 - 149 | [facility] | | | | | mmol/L | [facility] | | | | | | [facility] | | | | | | CENTER - | | | | | | LABORATORY | | + + + + + + | K | 2.8 (L) | 3.5 - 5.1 | [facility] | | | | | mmol/L | [facility] | | | | | | [facility] | | | | | | CENTER - | | | | | | LABORATORY | | + + + + + + | Cl | 101 | 98 - 109 mmol/L | [facility] | | | | | | [facility] | | | | | | [facility] | | | | | | CENTER - | | | | | | LABORATORY | | + + + + + + | CO2 | 27 | 24 - 31 mmol/L | [facility] | | | | | | [facility] | | | | | | [facility] | | | | | | CENTER - | | | | | | LABORATORY | | + + + + + + | Anion Gap | 13 | 3 - 16 mmol/L | [facility] | | | | | | [facility] | | | [facility] | | [facility] | | | | | | CENTER - | | | | | | LABORATORY | | + + + + + + | Glucose | 141 (H) | 70 - 109 mg/dL | [facility] | | | | | | [facility] | | | | | | [facility]ICAL | | | | | | CENTER - | | | | | | LABORATORY | | + + + + + + | BUN | 7 | 7 - 18 mg/dL | [facility] | | | | | | [facility] | | | | | | [facility] | | | | | | [facility] - | | | | | | LABORATORY | | + + + + + + | Creatinine | 0.41 (L) | 0.60 - 1.30 | [facility] | | | | | mg/dL | [facility] | | | | | | MEDICAL | | | | | | CENTER - | | | | | | LABORATORY | | + + + + + + | eGFR if not | >60Comment: GLOMERULAR | >=60 | [facility] | | | | FILTRATION | mL/min/1.73m2 | [facility] | | | [place]IAN | RATE,ESTIMATED | | MEDICAL | | | | mL/min/1.27r5Jlyu than | | CENTER - | | [...] | 8.3 | 8.3 - 10.5 | [facility] | | | | | mg/dL | [facility] | | | | | | MEDICAL | | | | | | CENTER - | | | | | | LABORATORY | | + + + + + + | Albumin | 1.9 (L) | 3.2 - 5.0 g/dL | [facility] | | | | | | [facility] | | | | | | MEDICAL | | | | | | CENTER - | | | | | | LABORATORY | | + + + + + + | Bilirubin | 0.1Comment: This is an | 0.1 - 1.5 mg/dL | [facility] | | | Total | appended report. These | | [facility] | | | | results have been | | MEDICAL | | | | appended to a previously | | CENTER - | | | | preliminary verified | | LABORATORY | | | | report. | | | | + + + + + + | Total | 5.9 (L) | 6.0 - 7.8 g/dL | [facility] | | | Protein | | | [facility] | | | | | | MEDICAL | | | | | | CENTER - | | | | | | LABORATORY | | + + + + + + | AST | 37Comment: This is an | 10 - 42 U/L | [facility] | | | | appended report. These | | [facility] | | | | results have been | | MEDICAL | | | | appended to a previously | | CENTER - | | | | preliminary verified | | LABORATORY | | | | report. | | | | + + + + + + | ALT | 50 (H)Comment: This is | 6 - 45 U/L | [facility] | | | | an appended report. | | [facility] | | | | These results have been | | MEDICAL | | | | appended to a previously | | CENTER - | | | | preliminary verified | | LABORATORY | | | | report. | | | | + + + + + + | Alkaline | 185 (H)Comment: This is | 40 - 110 U/L | [facility] | | | Phosphatase | an appended report. | | [facility] | | | | These results have been | | MEDICAL | | | | appended to a previously | | CENTER - | | | | preliminary verified | | LABORATORY | | | | report. | | | | + + + + + + | Globulin | 4.0 (H) | 2.1 - 3.8 g/dL | [facility] | | | | | | [facility] | | | | | | [facility] | | | | | | CENTER - | | | | | | LABORATORY | | + + + + + + | Albumin/Keyona | 0.5 (L) | 0.8 - 2.0 | [facility] | | | bulin Ratio | | | [facility] | | | | | | MEDICAL | | | | | | CENTER - | | | | | | LABORATORY | | + + + + + + | BUN/Creatin | 17.1 | | [facility] | | | ine Ratio | | [...] [address] | [place] | [phone] | | [facility] | | [address] | | | - LABORATORY | | | | + + + + + CEA (10/18/2016 8:58 AM PDT) + +-------+ + + + | Component | Value | Ref Range | Performed | Pathologist | | | | | At | Signature | + +-------+ + + + | CEA | 7.2 | 0.0 - 10.0 | [facility] | | | | | ng/mL | [facility] | | | | | | MEDICAL [...] | + + + + + | [facility] | [address] | [place] | [phone] | | [facility] | | [address] | | | - LABORATORY | | | | + + + + + Lactate Dehydrogenase (10/18/2016 8:58 AM PDT) + +-------+ + + + | Component | Value | Ref Range | Performed | Pathologist | | | | | At | Signature | + +-------+ + + + | LDH TOTAL | 141 | 91 - 180 U/L | [facility] | | | | [...] + | [facility] | [address] | [place], [place] | [phone] | | [facility] | | [address] | | | - LABORATORY | | | | + + + + + documented in this encounter Visit Diagnoses + + | Diagnosis | + + | Rectal cancer (HCC) Malignant neoplasm of rectum | + + documented in this encounter Administered Medications + +--------+ + +---------+------+ | Medication Order | MAR | Action | Dose | Rate | Site | | | Action | Date | | | | + +--------+ + +---------+------+ | fluorouracil 4,050 mg in sodium | Given | 10/19/19 | 4,050 mg | 2 mL/hr | | | chloride 0.9% 11 mL CADD PUMP | | 17 2:47 | | | | | chemo infusion 4,050 mg (rounded | | PM PDT | | | | | from 4,056 mg = 2,400 mg/m2 | | | | | | | 1.69 m2 Order-specific BSA), | | | | | | | Intravenous, Administer over 46 | | | | | | | Hours, EVERY 46 HOURS, First dose | | | | | | | on 10/18/16 at 1430, | | | | | | | OUTPATIENT Chemotherapy: Use | | | | | | | appropriate handling precautions. | | | | | | | Protect from light. Start Day 1, | | | | | | | disconnect Day 3., | | | | | | + +--------+ + +---------+------+ +---+---+ | | | +---+---+ + +---------+ +--------+-------+---+ | fosaprepitant (EMEND) 150 mg in | New Bag | 10/19/19 | 150 mg | 450 | | | sodium chloride 0.9% 150 mL IVPB | | 17 12:14 | | mL/hr | | | 150 mg, Intravenous, Administer | | PM PDT | | | | | over 20 Minutes, ONCE, Mon | | | | | | | 10/18/16 at 1215, For 1 dose, Do | | | | | | | not shake bag., | | | | | | + +---------+ +--------+-------+---+ +---+---+ | | | +---+---+ + +---------+ +--------+--------+---+ | leucovorin 340 mg in dextrose | New Bag | 10/19/19 | 340 mg | 133.5 | | | 5% 250 mL infusion 340 mg | | 17 12:37 | | mL/hr | | | (rounded from 338 mg = 200 mg/m2 | | PM PDT | | | | | | | | | | | | 1.69 m2 Order-specific BSA), | | | | | | | Intravenous, Administer over 120 | | | | | | | Minutes, ONCE, Tue10/18/16 at | | | | | | | 1230, For 1 dose, Administer via | | | | | | | y-site with oxaliplatin, | | | | | | + +---------+ +--------+--------+---+ +---+---+ | | | +---+---+ + +---------+ +---+-------+---+ | ondansetron (ZOFRAN) 8 mg, | New Bag | 10/19/19 | | 204 | | | dexamethasone (DECADRON) 4 mg in | | 17 11:55 | | mL/hr | | | sodium chloride 0.9% 50 mL IVPB | | AM PDT | | | | | Intravenous, Administer over 16 | | | | | | | Minutes, ONCE, Tue10/18/16 at | | | | | | | 1200, For 1 dose, Administer 30 | | | | | | | minutes prior to chemotherapy., | | | | | | + +---------+ +---+-------+---+ +---+---+ | | | +---+---+ + +---------+ +--------+-------+---+ | oxaliplatin (ELOXATIN) 135 mg | New Bag | 10/19/19 | 135 mg | 125 | | | in dextrose 5% 223 mL chemo | | 17 12:38 | | mL/hr | | | infusion 135 mg (rounded from | | PM PDT | | | | | 135.2 mg = 80 mg/m2 | | | | | | | 1.69 m2 Order-specific BSA), | | | | | | | Intravenous, Administer over 2 | | | | | | | Hours, ONCE, 10/18/16 at 1230, | | | | | | | For 1 dose, Chemotherapy: Use | | | | | | | appropriate handling precautions. | | | | | | | Not compatible with NS or any | | | | | | | chloride-containing solutions. | | | | | | | Flush line with D5W prior to | | | | | | | giving any other meds. | | | | | | | Administer via y-site with | | | | | | | leucovorin., | | | | | | + +---------+ +--------+-------+---+ +---+---+ | | | +---+---+ documented in this encounter"
--- OUTSIDE RECORDS SUMMARY | ~2019-06-11 | XMS | Encounter Summary ---
Demographics + + + | Address | [address] | | | [place] [address] | + + + | Home Phone [...] + + + | Author | [facility] | + + + | Organization | [facility] | + + + | Address | Unknown | + + + | Phone | Unavailable | + + + Support + + +---------+ + | Name | Relationship | Address | Phone | + + +---------+ + | Darrius Quintana | ECON | Unknown | | + + +---------+ + Care Team Providers + +------+ + | Care Vision Rehabilitation Therapist Name | Role | Phone | + +------+ + | Kristian Anderson DO | PCP | | + +------+ + Reason for Referral Diagnostic Testing (Urgent) +--------+--------+ + + + + | [...] Hines | | | | | CT ABDOMEN | [place], [place] | Mailcode: | | | | | AND PELVIS | [address] | [address] [facility] | | | | | W IV | Phone: | Hospital | | | | | CONTRAST [place] | [phone] | [place], [place] | | | | | CT | Fax: | [address] | | | | | ABDOMEN&PELV | [phone] | Phone: | | | | | IS | | [phone] | | | | | W/CONTRAST | | Fax: | | | | | | | [phone] | +--------+--------+ + + + + Reason for Visit Diagnostic Testing (Urgent) +--------+--------+ + + + + | [...] | | Procedures | [address] | [facility] | | | | | CT ABDOMEN | [place], [place] | Mailcode: | | | | | AND PELVIS | [address] | [address] [facility] | | | | | W IV | Phone: | Hospital | | | | | CONTRAST [place] | [phone] | [facility] [place] | | | | | CT | Fax: | [address] | | | | | ABDOMEN&PELV | [phone] | Phone: | | | | | IS | | [phone] | | | | | W/CONTRAST | | Fax: | | | | | | | [phone] | +--------+--------+ + + + + Encounter Details +--------+ + + + + | Date | Type | Department | Care Team | Description | +--------+ + + + + | 10/05/ | Hospital | Radiology/Imaging | Ailyn Wolff MD | | | 2017 | Encounter | Lab at [facility] [address] | [address] | | | | | [address] Mailcode: | [address] [facility] [place], | | | | | [facility] | [place] [address] | | | | | [facility], | [phone] | | | | | [address] | | | | | | [place], [place] | | | | | | [address] | | | | | | [phone] | | | +--------+ + + + [...] | | | | | [facility]a [facility] [place], | | | | | | [place] [address] | | | | | | [phone] | | | | | | | | +--------+---------+ + + + documented as of this encounter Procedures + +--------+ + + + | Procedure Name | Priori | Date/Time | Associated Diagnosis | Comments | | | ty | | | | + +--------+ + + + | PROCEDURE NOTE | Routin | 10/13/2016 | | Results for this | | | e | 1:16 PM | | procedure are in the | | | | PDT | | results section. | + +--------+ + + + | CT ABDOMEN AND | Urgent | 10/05/2016 | Rectal cancer | Results for this | | PELVIS W IV CONTRAST | | 12:14 PM | (HCC) | procedure are in the | | | | PDT | | results section. | + +--------+ + + + documented in this encounter Results PROCEDURE NOTE (10/13/2016 1:16 PM PDT)CT ABDOMEN AND PELVIS W IV CONTRAST (10/05/2016 12: 14 PM PDT) + + | Specimen | + + | | + + + + + | Narrative | Performed At | + + + | EXAM: CT of the abdomen and pelvis with contrast HISTORY: Rectal | [facility] | | cancer staging. COMPARISON: 07/20/2016. TECHNIQUE: CT of | RADIOLOGY VOICE | | the abdomen and pelvis with non-ionic iodinated intravenous contrast. | RECOGNITION | | Coronal and sagittal reformats were created. FINDINGS: LOWER | | | THORAX: Unremarkable. LIVER: Unremarkable. BILIARY: Unremarkable. | | | PANCREAS: Unremarkable. SPLEEN: Unremarkable. ADRENALS: | | | Unremarkable. KIDNEYS/URETERS: Irregular left lower pole renal cortex | | | suggests scarring. Stable left lower lower pole renal cyst measuring | | | 2.6 cm. PELVIC ORGANS/BLADDER: The urinary bladder is within normal | | | limits. Calcified fibroid uterus is also present. GI TRACT: The | | | bowel loops are nondilated. Left lower quadrant colostomy is noted. As | | | seen on the corresponding MRI from the same day, there is a large | | | circumferential mass involving the distal rectosigmoid colon with | | | extension beyond the bowel wall. A right perirectal rim enhancing | | | collection is 4.3 x 2.7 cm. A surgical drain terminates in the pelvis. | | | Enhancing inflammatory stranding is noted throughout the deep pelvis. | | | PERITONEUM: No free air or fluid. LYMPH NODES: | | | Borderline-sized mesenteric nodes are likely reactive in nature. | | | VESSELS: Unremarkable. BONES AND SOFT TISSUES: Unremarkable. | | | IMPRESSION: Large almost completely circumferential rectosigmoid | | | mass better delineated on the corresponding MRI with adjacent probable | | | abscess. No distant metastases identified. I have personally | | | reviewed the images and, if necessary, edited the report. I agree | | | with the report as now presented. | | + + + + + | Procedure Note | + + | Service Account, Radiant Res In Interface - 10/05/2016 1:27 PM PDT EXAM: CT of the | | abdomen and pelvis with contrastHISTORY: Rectal cancer staging.COMPARISON: | | 07/20/2016.TECHNIQUE: CT of the abdomen and pelvis with non-ionic iodinated intravenous | | contrast. Coronal and sagittal reformats were created.FINDINGS:LOWER THORAX: | | Unremarkable.LIVER: Unremarkable.BILIARY: Unremarkable.PANCREAS: Unremarkable.SPLEEN: | | Unremarkable.ADRENALS: Unremarkable.KIDNEYS/URETERS: Irregular left lower pole renal | | cortex suggests scarring. Stable left lower lower pole renal cyst measuring 2.6 | | cm.PELVIC ORGANS/BLADDER: The urinary bladder is within normal limits. Calcified fibroid | | uterus is also present.GI TRACT: The bowel loops are nondilated. Left lower quadrant | | colostomy is noted. As seen on the corresponding MRI from the same day, there is a large | | circumferential mass involving the distal rectosigmoid colon with extension beyond the | | bowel wall. A right perirectal rim enhancing collection is 4.3 x 2.7 cm. A surgical | | drain terminates in the pelvis. Enhancing inflammatory stranding is noted throughout the | | deep pelvis.PERITONEUM: No free air or fluid.LYMPH NODES: Borderline-sized mesenteric | | nodes are likely reactive in nature.VESSELS: Unremarkable.BONES AND SOFT TISSUES: | | Unremarkable.IMPRESSION: Large almost completely circumferential rectosigmoid mass | | better delineated on the corresponding MRI with adjacent probable abscess. No distant | | metastases identified.I have personally reviewed the images and, if necessary, edited | | the report. I agree with the report as now presented. | |PELVIC ORGANS/BLADDER: The urinary bladder is within normal limits. Calcified fibroid uteru s is also present. | | | |GI TRACT: The bowel loops are nondilated. Left lower quadrant colostomy is noted. As seen o n the corresponding MRI from the same day, there is a large circumferential mass involving t he distal rectosigmoid colon with | |extension beyond the bowel wall. A right perirectal rim enhancing collection is 4.3 x 2.7 c m. A surgical drain terminates in the pelvis. Enhancing inflammatory stranding is noted thro ughout the deep pelvis. | | | |PERITONEUM: No free air or fluid. | | | |LYMPH NODES: Borderline-sized mesenteric nodes are likely reactive in nature. | |VESSELS: Unremarkable. | | | |BONES AND SOFT TISSUES: Unremarkable. | | | |IMPRESSION: | | | |Large almost completely circumferential rectosigmoid mass better delineated on the correspo nding MRI with adjacent probable abscess. No distant metastases identified. | | | | | |I have [...] (OMNIPAQUE) 350 mg | IV Push | 10/06/19 | 100 mL | | | | iodine/mL injection 100 mL 100 | | 17 12:12 | | | | | mL, intravenous, ONCE, 1 dose, | | PM PDT | | | | | 10/05/16 at 1245 | | | | | | + +---------+ +--------+------+------+ +---+---+ | | | +---+---+ documented in this encounter"
--- OUTSIDE RECORDS SUMMARY | ~2019-06-11 | XMS | Encounter Summary ---
Demographics + + + | Address | [address] | | | [place] [address] | + + + | Home Phone [...] Team Providers + +------+ + | Care Senior Applications Architect Name | Role | Phone | + [...] | | 2017 | | Center at [facility] [address] | [address] | Review | | | | [address] | [place], | | | | | Mailcode: [place] | [place] [address] | | | | | for Health and | [phone] | | | | | [facility] | | | | | | [place], [place] | | | | | | [address] | | | | | | [phone] | | | +--------+ + + + [...] | | | | | [place], | | | | | | [place] [address] | | | | | | [phone] | | | | | | | | +--------+---------+ + + + documented as of this encounter Visit Diagnoses Not on filedocumented in this encounter"
--- OUTSIDE RECORDS SUMMARY | ~2019-06-11 | XMS | Encounter Summary ---
Demographics + + + | Address | [address] | | | [place] [address] | + + + | Home Phone | | + + + | Preferred Language | Unknown | + + + | Marital Status | Single | + + + | Yazidi Affiliation | NON | + + + | Race | White | + + + | Ethnic Group | Not or | + + + Author + + + | Author | [facility] | + + + | Organization | [facility] | + + + | Address | Unknown | + + + | Phone | Unavailable | + + + Support + + +---------+ + | Name | Relationship | Address | Phone | + + +---------+ + | Darrius Quintana | ECON | Unknown | | + + +---------+ + Care Team Providers + +------+ + | Care Charge Account Identification Clerk Name | Role | Phone | + [...] | +--------+ + + + + | 01/10/ | Abstract | Digestive Health | Ailyn Wolff MD | Medical Records | | 2018 | | Center at [facility] [address] | [address] | Review | | | | [address] | [place], | | | | | Mailcode: [place] | [place] [address] | | | | | for Health and | [phone] | | | | | [facility] 2 | | | | | | [place], [place] | | | | | | [address] | | | | | | [phone] | | | +--------+ + + + [...] | | | | | [place], | | | | | | [place] [address] | | | | | | [phone] | | | | | | | | +--------+---------+ + + + documented as of this encounter Visit Diagnoses Not on filedocumented in this encounter"
--- OUTSIDE RECORDS SUMMARY | ~2019-06-11 | XMS | Encounter Summary ---
Demographics + + + | Address | [address] | | | [place] [address] | + + + | Home Phone | | + + + | Preferred Language | Unknown | + + + | Marital Status | | + + + | Buddhist Affiliation | Unknown | + + + | Race | Unknown | + + + | Ethnic Group | Unknown | + + + Author + + + | Author | [facility] | | | and [place] | + + + | Organization | [facility] | | | and [place] | + + + | Address | Unknown | + + + | Phone | Unavailable | + + + Support + + + + + | Name | Relationship | Address | Phone | + + + + + | Lamar Phillips | REZA | [place] [address] | | + + + + + Care Team Providers + +------+ + | Care Tour Leader Name | Role | Phone | + +------+ + | Kristian Anderson DO | PCP | | + +------+ + Reason for Visit Evaluate & Treat (Routine) +--------+ + + + + + | Status | Reason | Specialty | Diagnoses / | Referred By | Referred To | | | | | Procedures | Contact | Contact | +--------+ + + + + + | Closed | Specialty | Radiation | Diagnoses | | Joel Alfaro | | | Services | Oncology | Rectal | Janel | Cindy, DO [address] | | | Required | | cancer (HCC) | Mike White, | [address] | | | | | Rectal CA | MD [address] | [place], | | | | | Procedures | [address] | [place] [address] | | | | | [place] OFFICE | [place], | Phone: | | | | | OUTPATIENT | [place] [address] | [phone] | | | | | VISIT 25 | Phone: | Fax: | | | | | MINUTES | [phone] | [phone] | | | | | Evaluate | Fax: | | | | | | | [phone] | | +--------+ + + + + + Encounter Details +--------+ + + + + | Date | Type | Department | Care Team | Description | +--------+ + + + + | 10/18/ | Hospital | [facility] | Joel Alfaro DO | | | 2017 | Encounter | MED CTR RADIATION | [address] | | | | | ONCOLOGY [address] | [place], [place] | | | | | [place], | [address] | | | | | [place] [address] | | | | | | [phone] | | | +--------+ + + + [...]
--- OUTSIDE RECORDS SUMMARY | ~2019-06-11 | XMS | Encounter Summary ---
Demographics + + + | Address | [address] | | | [place] [address] | + + + | Home Phone | | + + + | Preferred Language | Unknown | + + + | Marital Status | | + + + | Muslim Affiliation | Unknown | + + + | Race | Unknown | + + + | Ethnic Group | Unknown | + + + Author + + + | Author | [facility] | | | and [place] | + + + | Organization | [facility] | | | and [place] | + + + | Address | Unknown | + + + | Phone | Unavailable | + + + Support + + + + + | Name | Relationship | Address | Phone | + + + + + | Lamar Phillips | REZA | [place] [address] | | + + + + + Care Team Providers + +------+ + | Care Conference Services Director Name | Role | Phone | + +------+ + | Kristian Anderson DO | PCP | | + +------+ + Reason for Visit Auth/Cert +--------+--------+ + + + + | Status | Reason | Specialty | Diagnoses / | Referred By | Referred To | | | | | Procedures | Contact | Contact | +--------+--------+ + + + + | | | | | | | +--------+--------+ + + + + Encounter Details +--------+ + + + + | Date | Type | Department | Care Team | Description | +--------+ + + + + | 01/17/ | Hospital | [facility] | Janel, | Rectal cancer (HCC) | | 2017 | Encounter | MED CTR CHEMO | Mike White MD [address] | | | | | INFUSION [address] | [facility] | | | | | [place], | [place] [address] | | | | | [place] [address] | [phone] | | | | | [phone] | | | +--------+ + + + [...] + + + +---------+ + + | amoxicillin | Take 1 capsule by | 42 | 0 | 01/11/20 | | | (AMOXIL) 500 MG | mouth 3 times daily | capsule | | 17 | 7 | | capsule | for 21 days. | | | | | + + + +---------+ + + | Biotin 10 MG CAPS | Take by mouth. For | | 0 | | | | | Hair, skin, nails. | | | | 8 | + + + +---------+ + + | ciprofloxacin | Take 1 tablet by | 14 | 0 | 01/11/20 | | | (CIPRO) 500 mg | mouth 2 times daily | tablet | | 17 [...] documented as of this encounter Progress Notes Fabienne Gates RN - 01/17/2017 11:12 AM PDTDischarged to home in satisfactory condition with ambulatory chemo pump infusing for the next 7 days. Will return on Tuesday for a batte ry replacement. docum ented in this encounter Plan of Treatment Not on filedocumented as of this encounter Procedures + +--------+ + + + | Procedure Name | Priori | Date/Time | Associated Diagnosis | Comments | | | ty | | | | + +--------+ + + + | CBC WITH | STAT | 01/17/2017 | Rectal cancer | Results for this | | DIFFERENTIAL | | 8:59 AM | (HCC) | procedure are in the | | | | PDT | | results section. | + +--------+ + + + | LACTATE | STAT | 01/17/2017 | Rectal cancer | Results for this | | DEHYDROGENASE | | 8:59 AM | (HCC) | procedure are in the | | | | PDT | | results section. | + +--------+ + + + | COMPREHENSIVE | STAT | 01/17/2017 | Rectal cancer | Results for this | | METABOLIC PANEL | | 8:59 AM | (HCC) | procedure are in the | | | | PDT | | results section. | + +--------+ + + + documented in this encounter Results CBC with Differential (01/17/2017 8:59 AM PDT) + + + + + + | Component | Value | Ref Range | Performed | Pathologist | | | | | At | Signature | + + + + + + | WBC | 5.2 | 4.0 - 11.0 K/uL | [facility] | | | | | | [facility] | | | | | | [facility] | | | | | [facility] - | | | | | | LABORATORY | | + + + + + + | RBC | 3.78 | 3.70 - 5.20 | [facility] | | | | | M/uL | [facility] | | | | | | [facility] | | | | | | [facility] - | | | | | | LABORATORY | | + + + + + + | Hemoglobin | 10.2 (L) | 11.5 - 16.0 | [facility] | | | | | g/dL | [facility] | | | | | | [facility] | | | | | | C[facility] - | | | | | | LABORATORY | | + + + + + + | Hematocrit | 31.3 (L) | 34.0 - 47.0 % | [facility] | | | | | | [facility] | | | | | | [facility] | | | | | | [facility] - | | | | | | LABORATORY | | + + + + + + | MCV | 82.7 (L) | 83.0 - 101.0 fL | [facility] | | | | | | [facility] | | | | | | [facility] | | | | | | [facility] - | | | | | | LABORATORY | | + + + + + + | MCH | 27.1 (L) | 28.0 - 35.0 pg | [facility] | | | | | | [facility] | | | | | | [facility] | | | | | | [facility] - | | | | | | LABORATORY | | + + + + + + | MCHC | 32.7 | 32.0 - 36.0 | [facility] | | | | | g/dL | [facility] | | | | | | [facility] | | | | | | CENTER - | | | | | | LABORATORY | | + + + + + + | RDW-CV | 20.2 (H) | <15.0 % | [facility] | | | | | | [facility] | | | | | | [facility] | | | | | | [facility] - | | | | | | LABORATORY | | + + + + + + | Platelet | 327 | 140 - 440 K/uL | [facility] [...] + + + + | % | 64.7 | 45.0 - 82.0 % | [facility] | | | Neutrophils | | | [facility] | | | | | | [facility] | | | | | | C[facility] - | | | | | | LABORATORY | | + + + + + + | % | 14.2 (L) | 20.0 - 45.0 % | [facility] | | | Lymphocytes | | | [facility] | | | | | | [facility] | | | | | | CENTER - | | | | | | LABORATORY | | + + + + + + | % Monocytes | 9.9 | 4.0 - 12.0 % | [facility] | | | | | | [facility] | | | | | | [facility] | | | | | | [facility] - | | | | | | LABORATORY | | + + + + + + | % | 10.5 (H) | 0.0 - 5.0 % | [facility] | | | Eosinophils | | | [facility] | | | | | | [facility] | | | | | | C[facility] - | | | | | | LABORATORY | | + + + + + + | % Basophils | 0.7 | 0.0 - 1.0 % | [facility] | | | | | | [facility] | | | | | | [facility] | | | | | | [facility] - | | | | | | LABORATORY | | + + + + + + | Absolute | 3.40 | 1.80 - 8.50 | [facility] | | | Neutrophils | | K/uL | [facility] | | | | | | [facility] | | | | | | C[facility] - | | | | | | LABORATORY | | + + + + + + | Absolute | 0.70 | 0.60 - 3.20 | [facility] | | | Lymphocytes | | K/uL | [facility] | | | | | | [facility] | | | | | | CENTER - | | | | | | LABORATORY | | + + + + + + | Absolute | 0.50 | 0.00 - 1.00 | [facility] | | | Monocytes | | K/uL | [facility] | | | | | | [facility] | | | | | | CENTER - | | | | | | LABORATORY | | + + + + + + | Absolute | 0.50 (H) | 0.00 - 0.40 | [facility] | | | Eosinophils | | K/uL | [facility] | | | | | | [facility] | | | | | | C[facility] - | | | | | | LABORATORY | | + + + + + + | Absolute | 0.00 | 0.00 - 0.10 | [facility] | | | Basophils | | K/uL | [facility] | [...] + + | [facility] | [address] | [place] | [phone] | | [facility] | | [address] | | | - LABORATORY | | | | + + + + + Comprehensive Metabolic Panel (01/17/2017 8:59 AM PDT) + + + + + [...] + + + + | K | 3.5 | 3.5 - 5.1 | [facility] | [...] + + + | Anion Gap | 7 | 3 - 16 mmol/L | [facility] | | | | | | [facility] | | | | | | [facility] | | | | | | CENTER - | | | | | | LABORATORY | | + + + + + + | Glucose | 88 | 70 - 109 mg/dL | [facility] | | | | | | [facility] | | | | | | [facility]ICAL | | | | | | CENTER - | | | | | | LABORATORY | | + + + + + + | BUN | 10 | 7 - 18 mg/dL | [facility] | | | | | | [facility] | | | | | | [facility]ICAL | | | | | | CENTER - | | | | | | LABORATORY | | + + + + + + | Creatinine | 0.52 (L) | 0.60 - 1.30 | [facility] | | | | | mg/dL | [facility] | | | | | | MEDICAL | | | | | | CENTER - | | | | | | LABORATORY | | + + + + + + | eGFR if not | >60Comment: GLOMERULAR | >=60 | [facility] | | | | FILTRATION | mL/min/1.73m2 | [facility] | | | [place] | RATE,ESTIMATED | | MEDICAL | | | | mL/min/1.56s4Mmdl than | | CENTER - | | [...] + + + + | Calcium | 8.9 | 8.3 - 10.5 | [facility] | | | | | mg/dL | [facility] | | | | | | [facility] | | | | | | CENTER - | | | | | | LABORATORY | | + + + + + + | Albumin | 3.0 (L) | 3.2 - 5.0 g/dL | [facility] | | | | | | [facility] | | | | | | MEDICAL | | | | | | CENTER - | | | | | | LABORATORY | | + + + + + + | Bilirubin | 0.3Comment: This is an | 0.1 - 1.5 mg/dL | [facility] | | | Total | appended report. These | | [facility] | | | | results have been | | MEDICAL | | | | appended to a previously | | CENTER - | | | | preliminary verified | | LABORATORY | | | | report. | | | | + + + + + + | Total | 6.4 | 6.0 - 7.8 g/dL | [facility] | | | Protein | | | [facility] | | | | | | MEDICAL | | | | | | CENTER - | | | | | | LABORATORY | | + + + + + + | AST | 25Comment: This is an | 10 - 42 U/L | [facility] | | | | appended report. These | | [facility] | | | | results have been | | MEDICAL | | | | appended to a previously | | CENTER - | | | | preliminary verified | | LABORATORY | | | | report. | | | | + + + + + + | ALT | 20Comment: This is an | 6 - 45 U/L | [facility] | | | | appended report. These | | [facility] | | | | results have been | | MEDICAL | | | | appended to a previously | | CENTER - | | | | preliminary verified | | LABORATORY | | | | report. | | | | + + + + + + | Alkaline | 93Comment: This is an | 40 - 110 U/L | [facility] | | | Phosphatase | appended report. These | | [facility] | | | | results have been | | MEDICAL | | | | appended to a previously | | CENTER - | | | | preliminary verified | | LABORATORY | | | | report. | | | | + + + + + + | Globulin | 3.4 | 2.1 - 3.8 g/dL | [facility] | | | | | | [facility] | | | | | | MEDICAL | | | | | | CENTER - | | | | | | LABORATORY | | + + + + + + | Albumin/Keyona | 0.9 | 0.8 - 2.0 | [facility] | | | bulin Ratio | | | [facility] | | | | | | MEDICAL | | | | | | CENTER - | | | | | | LABORATORY | | + + + + + + | BUN/Creatin | 19.2 | | [facility] | | | ine Ratio | | | [facility] | | [...] | + + + + + | [facility] | [address] | [place] | [phone] | | [facility] | | [address] | | | - LABORATORY | | | | + + + + + Lactate Dehydrogenase (01/17/2017 8:59 AM PDT) + +-------+ + + + | Component | Value | Ref Range | Performed | Pathologist | | | | | At | Signature | + +-------+ + + + | LDH TOTAL | 156 | 91 - 180 U/L | [facility] [...] + + | [facility] | [address] | [place] | [phone] | | [facility] | | [address] | | | - LABORATORY | | | | + + + + + documented in this encounter Visit Diagnoses + + | Diagnosis | + + | Rectal cancer (HCC) Malignant neoplasm of rectum | + + documented in this encounter Administered Medications + +--------+ + +-------+------+ | Medication Order | MAR | Action | Dose | Rate | Site | | | Action | Date | | | | + +--------+ + +-------+------+ | fluorouracil 2,800 mg in sodium | Given | 01/18/20 | 2,800 mg | 0.5 | | | chloride 0.9% 28 mL CADD PUMP | | 17 11:05 | | mL/hr | | | chemo infusion 2,800 mg (rounded | | AM PDT | | | | | from 2,787.75 mg = 225 mg/m2/day | | | | | | | | | | | | | | 1.77 m2 Treatment plan recorded | | | | | | | BSA), Intravenous, Administer | | | | | | | over 168 Hours, EVERY 7 DAYS, | | | | | | | First dose on Tue01/17/17 at | | | | | | | 1045, OUTPATIENT Chemotherapy: | | | | | | | Use appropriate handling | | | | | | | precautions. Protect from light. | | | | | | | Continuous infusion seven days | | | | | | | per week from Day 1 through last | | | | | | | day of radiation therapy., | | | | | | + +--------+ + +-------+------+ +---+---+ | | | +---+---+ + +-------+ +-------+---+---+ | heparin 100 units/mL flush | Given | 01/18/20 | 500 | | | | injection 500 Units 500 Units (5 | | 17 9:04 | Units | | | | mL), Intracatheter, PRN, Line | | AM PDT | | | | | Care, Starting Tue17 at | | | | | | | 0858 | | | | | | + +-------+ +-------+---+---+ +---+---+ | | | +---+---+ documented in this encounter"
--- OUTSIDE RECORDS SUMMARY | ~2019-06-11 | XMS | Encounter Summary ---
Demographics + + + | Address | [address] | | | [place] [address] | + + + | Home Phone [...] Team Providers + +------+ + | Care Spa Host Name | Role | Phone | + [...] | | 2018 | | Center at [facility] [address] | [address] | and Ostomy Nurse) | | | | [address] | [place], | | | | | Mailcode: [place] | [place] [address] | | | | | for Health and | [phone] | | | | | [facility] | | | | | | [place], [place] | | | | | | [address] | | | | | | [phone] | | | +--------+ + + + [...] | | | | | [place], | | | | | | [place] [address] | | | | | | [phone] | | | | | | | | +--------+---------+ + + + documented as of this encounter Visit Diagnoses Not on filedocumented in this encounter"
--- OUTSIDE RECORDS SUMMARY | ~2019-06-11 | XMS | Encounter Summary ---
Demographics + + + | Address | [address] | | | [place] [address] | + + + | Home Phone | | + + + | Preferred Language | Unknown | + + + | Marital Status | | + + + | Confucianist Affiliation | Unknown | + + + | Race | Unknown | + + + | Ethnic Group | Unknown | + + + Author + + + | Author | [facility] | | | and [place] | + + + | Organization | [facility] | | | and [place] | + + + | Address | Unknown | + + + | Phone | Unavailable | + + + Support + + + + + | Name | Relationship | Address | Phone | + + + + + | Lamar Phillips | REZA | [place] [address] | | + + + + + Care Team Providers + +------+ + | Care Asset Analyst Name | Role | Phone | [...] neoplasm of | Mike C, | [address] | | | | | rectum (HCC) | MD [address] | [place], | | | | | Procedures | [address] | [place] [address] | | | | | [place] | [place], | Phone: | | | | | [place] | [place] [address] | [phone] | | | | | INJECTION, | Phone: | Fax: | | | | | [address] [place] | [phone] | [phone] | | | | | NORMAL | Fax: | | | | | | SALINE | [phone] | | | | | | SOLUTION | | | | | | | INFUS, 500 | | | | | | | ML [place] | | | | | | | NORMAL | | | | | | | SALINE | | | | | | | SOLUTION | | | | | | | INFUS, 250 | | | | | | | ML [place] | | | | | | | STERILE | | | | | | | WATER/SALINE | | | | | | | , 10 ML [place] | | | | | | | CHEMOTHER, | | | | | | | IV PUSH,EA | | | | | | | ADD DRUG TX | | | | | | | CHEMOTHER, | | | | | | | IV INFUSION, | | | | | | | 1 HR [place] | | | | | | | CHEMOTHER, | | | | | | | IV INFUSION, | | | | | | | EA HR TX | | | | | | | CHEMOTHER,NO | | | | | | | N-HORMONE | | | | | | | ANTI-NEOPL, | | | | | | | SUB-Q/IM TX | | | | | | | CHEMOTHER | | | | | | | HORMON | | | | | | | ANTINEOPL | | | | | | | SUB-Q/IM TX | | | | | | | ONDANSETRON | | | | | | | HCL | | | | | | | INJECTION, 1 | | | | | | | MG TX | | | | | | | DEXAMETHASON | | | | | | | E SODIUM | | | | | | | PHOS, 1 MG | | | | | | | TX LORAZEPAM | | | | | | | INJECTION, | | | | | | | 2 MG TX | | | | | | | OXALIPLATIN, | | | | | | | .5 MG TX | | | | | | | LEUCOVORIN | | | | | | | CALCIUM | | | | | | | INJECTION, | | | | | | | 50 MG TX | | | | | | | DIPHENHYDRAM | | | | | | | INE HCL | | | | | | | INJECTIO, 50 | | | | | | | MG TX | | | | | | | METHYLPREDNI | | | | | | | SOLONE | | | | | | | INJECTION, | | | | | | | 125 MG TX | | | | | | | ADRENALIN | | | | | | | EPINEPHRINE | | | | | | | INJECT, .1 | | | | | | | MG TX | | | | | | | ALBUTEROL | | | | | | | COMP CON, 1 | | | | | | | MG [place] | | | | | | | ALBUTEROL | | | | | | | NON-COMP | | | | | | | CON, 1 MG | | | | | | | TX | | | | | | | INJECTION, | | | | | | | FAMOTIDINE, | | | | | | | 20 MG | | | +--------+--------+ + + + + Encounter Details +--------+ + + + + | Date | Type | Department | Care Team | Description | +--------+ + + + + | 05/16/ | Hospital | [facility] | [facility], | Rectal cancer (HCC); | | 2017 | Encounter | MED CTR CHEMO | Mike White MD [address] | Lichen sclerosus | | | | INFUSION [address] | [address] [place] | | | | | [place], | [place] [address] | | | | | [place] [address] | [phone] | | | | | [phone] | | | +--------+ + + + [...] + + + +---------+ + + | fluconazole | Take 1 tablet by | 14 | 0 | 05/02/20 | | | (DIFLUCAN) 200 MG | mouth Daily. | tablet | | 17 | 8 | | tablet | | | | | | + + + +---------+ + + | | Take 1-2 tablets by | 100 | 0 | 04/18/20 | | | HYDROcodone-acetamin | mouth every 4 hours | tablet | | 17 | 8 | | ophen (NORCO) 5-325 | as needed for Pain. | | | | | | mg per tablet | | | | | | + + + +---------+ + + | LORazepam (ATIVAN) | Take 1 tablet by | 60 | 2 | 04/04/20 | | | 1 mg tablet | mouth every 6 hours | tablet | | 17 | 8 | | | as needed for | | | | | | | Anxiety | | | | | | | (Nausea/vomiting/res | | | | | | | tlessness). | | | | | + + + +---------+ + + | metroNIDAZOLE | Take 500 mg by mouth | | 0 | | | | (FLAGYL) 500 MG | 3 times daily. | | | | 8 | | tablet | | | | [...] + | CBC WITH | STAT | 05/16/2017 | Rectal cancer | Results for this | | DIFFERENTIAL | | 8:52 AM | (HCC) | procedure are in the | | | | PDT | | results section. | + +--------+ + + + | LACTATE | STAT | 05/16/2017 | Rectal cancer | Results for this | | DEHYDROGENASE | | 8:52 AM | (HCC) | procedure are in the | | | | PDT | | results section. | + +--------+ + + + | CEA | STAT | 05/16/2017 | Rectal cancer | Results for this | | | | 8:52 AM | (HCC) | procedure are in the | | | | PDT | | results section. | + +--------+ + + + | COMPREHENSIVE | STAT | 05/16/2017 | Rectal cancer | Results for this | | METABOLIC PANEL | | 8:52 AM | (HCC) | procedure are in the | | | | PDT | | results section. | + +--------+ + + + documented in this encounter Results CBC with Differential (05/16/2017 8:52 AM PDT) + + + + + + | Component | Value | Ref Range | Performed | Pathologist | | | | | At | Signature | + + + + + + | WBC | 4.7 | 4.0 - 11.0 K/uL | [facility] | | | | | | [facility] | | | | [facility] | | [facility] - | | | | | | [facility]ORATORY | | + + + + + + | RBC | 3.73 | 3.70 - 5.20 | [facility] | | | | | M/uL | [facility] | | | | | | [facility] | | | | | | [facility] - | | | | | | LABORATORY | | + + + + + + | Hemoglobin | 10.8 (L) | 11.5 - 16.0 | [facility] | | | | | g/dL | [facility] | | | | | | [facility] | | | | | | [facility] - | | | | | | LABORATORY | | + + + + + + | Hematocrit | 32.5 (L) | 34.0 - 47.0 % | [facility] | | | | | | [facility] | | | | | | [facility] | | | | | | [facility] - | | | | | | LABORATORY | | + + + + + + | MCV | 87.3 | 83.0 - 101.0 fL | [facility] | | | | | | [facility] | | | | | | [facility] | | | | [facility] - | | | | | | LAB[facility]ATORY | | + + + + + + | MCH | 29.0 | 28.0 - 35.0 pg | [facility] | | | | | | [facility] | | | | | | [facility] | | | | | [facility] - | | | | | | LAB[facility]ATORY | | + + + + + + | MCHC | 33.2 | 32.0 - 36.0 | [facility] | | | | | g/dL | [facility] | | | | | | [facility] | | | | | | [facility] - | | | | | | LABORATORY | | + + + + + + | RDW-CV | 17.4 (H) | <15.0 % | [facility] | | | | | [facility] | | | | | [facility] | | | | | | [facility] - | | | | | | LABORATORY | | + + + + + + | Platelet | 279 | 140 - 440 K/uL | [facility] | | | Count | | | [facility] | | | | | | [facility] | | | | | | [facility] - | | | | | | LABORATORY | | + + + + + + | MPV | 6.5 | fL | [facility] | | | | | | [facility] | | | | | | [facility] | | | | | | [facility] - | | | | | | LABORATORY | | + + + + + + | % | 75.5 | 45.0 - 82.0 % | [facility] | | | Neutrophils | | | [facility] | | | | | | [facility] | | | | | | [facility] - | | | | | | LABORATORY | | + + + + + + | % | 9.3 (L) | 20.0 - 45.0 % | [facility] | | | Lymphocytes | | | [facility] | | | | | | [facility] | | | | | | [facility] - | | | | | | LABORATORY | | + + + + + + | % Monocytes | 11.7 | 4.0 - 12.0 % | [facility] | | | | | | [facility] | | | | | | [facility] | | | | | | [facility] - | | | | | | LABORATORY | | + + + + + + | % | 2.4 | 0.0 - 5.0 % | [facility] | | | Eosinophils | | | [facility] | | | | | | [facility] | | | | | | CENTER - | | | | | | LABORATORY | | + + + + + + | % Basophils | 1.1 (H) | 0.0 - 1.0 % | [facility] | | | | | | [facility] | | | | | | [facility] | | | | | | [facility] - | | | | | | LABORATORY | | + + + + + + | Absolute | 3.60 | 1.80 - 8.50 | [facility] | | | Neutrophils | | K/uL | [facility] | | | | | | [facility] | | | | | | [facility] - | | | | | | LABORATORY | | + + + + + + | Absolute | 0.40 (L) | 0.60 - 3.20 | [facility] [...] | Monocytes | | K/uL | [facility] | | | | | | [facility] | | | | | | CENTER - | | | | | | LABORATORY | | + + + + + + | Absolute | 0.10 | 0.00 - 0.40 | [facility] | | | Eosinophils | | K/uL | [facility] | | | | | | [facility] | | | | | | [facility] - | | | | | | LABORATORY | | + + + + + + | Absolute | 0.10 | 0.00 - 0.10 | [facility] | [...] + + | [facility] | [address] | [place] | [phone] | | [facility] | | [address] | | | - LABORATORY | | | | + + + + + Comprehensive Metabolic Panel (05/16/2017 8:52 AM PDT) + + + + + + | Component | Value | Ref Range | Performed | Pathologist | | | | | At | Signature | + + + + + + | Na | 140 | 136 - 149 | [facility] | | | | | mmol/L | [facility] | | | | | | [facility] | | | | | | [facility]ENTER - | | | | | | LABORATORY | | + + + + + + | K | 4.1 | 3.5 - 5.1 | [facility] | | | | | mmol/L | [facility] | | | | | | [facility] | | | | | | CENTER - | | | | | | LABORATORY | | + + + + + + | Cl | 104 | 98 - 109 mmol/L | [facility] [...] + + + | Anion Gap | 11 | 3 - 16 mmol/L | [facility] | | | | | | [facility] | | | | | | [facility] | | | | | | [facility] - | | | | | | LABORATORY | | + + + + + + | Glucose | 120 (H) | 70 - 109 mg/dL | [facility] | | | | | | [facility] | | | | | | [facility] | | | | | | CENTER - | | | | | | LABORATORY | | + + + + + + | BUN | 10 | 7 - 18 mg/dL | [facility] | | | | | | [facility] | | | | | | [facility] | | | | | | CENTER - | | | | | | LABORATORY | | + + + + + + | Creatinine | 0.61 | 0.60 - 1.30 | [facility] | | | | | mg/dL | [facility] | | | | | | [facility] | | | | | | CENTER - | | | | | | LABORATORY | | + + + + + + | eGFR if not | >60Comment: GLOMERULAR | >=60 | [facility] | | | | FILTRATION | mL/min/1.73m2 | [facility] | | | [place] | RATE,ESTIMATED | | MEDICAL | | | | mL/min/1.89h2Pblz than | | CENTER - | | [...] + + + + | Calcium | 8.7 | 8.3 - 10.5 | [facility] | | | | | mg/dL | [facility] | | | | | | [facility] | | | | | | CENTER - | | | | | | LABORATORY | | + + + + + + | Albumin | 2.9 (L) | 3.2 - 5.0 g/dL | [facility] | | | | | | [facility] [...] + + + + | AST | 34Comment: This is an | 10 - 42 [...] + + + + | ALT | 22Comment: This is an | 6 - 45 U/L | [facility] | | | | appended report. These | | [facility] | | | | results have been | | MEDICAL | | | | appended to a previously | | CENTER - | | | | preliminary verified | | LABORATORY | | | | report. | | | | + + + + + + | Alkaline | 78Comment: This is an | 40 - 110 [...] + + + + | Globulin | 3.0 | 2.1 - 3.8 g/dL | [facility] | | | | | | [facility] | | | | | | [facility] | | | | | | CENTER - | | | | | | LABORATORY | | + + + + + + | Albumin/Keyona | 1.0 | 0.8 - 2.0 | [facility] | | | bulin Ratio | | | [facility] | | | | | | MEDICAL | | | | | | CENTER - | | | | | | LABORATORY | | + + + + + + | BUN/Creatin | 16.4 | | [facility] | | | ine [...] [address] | [place] | [phone] | | [facility] | | [address] | | | - LABORATORY | | | | + + + + + CEA (05/16/2017 8:52 AM PDT) + +-------+ + + + | Component | Value | Ref Range | Performed | Pathologist | | | | | At | Signature | + +-------+ + + + | CEA | 1.8 | 0.0 - 10.0 | [facility] | | | | | ng/mL | [facility] | | | | [...] + | [facility] | [address] | [place] | [phone] | | [facility] | | [address] | | | - LABORATORY | | | | + + + + + Lactate Dehydrogenase (05/16/2017 8:52 AM PDT) + +-------+ + + + | Component | Value | Ref Range | Performed | Pathologist | | | | | At | Signature | + +-------+ + + + | LDH TOTAL | 160 | 91 - 180 U/L | [facility] | | | | | | [facility] [...] | + + + + + | [facility] | [address] | [place], [place] | [phone] | | [facility] | | [address] | | | - LABORATORY | | | | + + + + + documented in this encounter Visit Diagnoses + + | Diagnosis | + + | Rectal cancer (HCC) Malignant neoplasm of rectum | + + | Lichen sclerosus Circumscribed scleroderma | + + documented in this encounter Administered Medications + +--------+ +------+------+------+ | Medication Order | MAR | Action | Dose | Rate | Site | | | Action | Date | | | | + +--------+ +------+------+------+ | ethyl chloride spray Topical, | Given | 05/16/20 | | | | | PRN, Pain, Starting 05/16/17 | | 17 8:59 | | | | | at 0851 | | AM PDT | | | | + +--------+ +------+------+------+ +---+---+ | | | +---+---+ + +-------+ +-------+---+---+ | heparin 100 units/mL flush | Given | 10/23/20 | 500 | | | | injection 500 Units 500 Units (5 | | 17 11:07 | Units | | | | mL), Intracatheter, PRN, Line | | AM PDT | | | | | Care, Starting 05/16/17 at | | | | | | | 1021 | | | | | | + +-------+ +-------+---+---+ +---+---+ | | | +---+---+ documented in this encounter"
--- OUTSIDE RECORDS SUMMARY | ~2019-06-11 | XMS | Encounter Summary ---
Demographics + + + | Address | [address] | | | [place] [address] | + + + | Home Phone | | + + + | Preferred Language | Unknown | + + + | Marital Status | Single | + + + | Yarsanism Affiliation | NON | + + + [...] Team Providers + +------+ + | Care Associate Director Career Services Name | Role | Phone | + [...] | | 2018 | | Center at [facility] [address] | [address] | Review | | | | [address] | [place], | | | | | Mailcode: [place] | [place] [address] | | | | | for Health and | [phone] | | | | | [facility] [address] | | | | | | [place], [place] | | | | | | [address] | | | | | | [phone] | | | +--------+ + + + [...] | | | | | [place], | | | | | | [place] [address] | | | | | | [phone] | | | | | | | | +--------+---------+ + + + documented as of this encounter Visit Diagnoses Not on filedocumented in this encounter"
--- OUTSIDE RECORDS SUMMARY | ~2019-06-11 | XMS | Encounter Summary ---
Demographics + + + | Address | [address] | | | [place] [address] | + + + | Home Phone [...] Author + + + | Author | [facility] | + + + | Organization | [facility] | + + + | Address | Unknown | + + + | Phone | Unavailable | + + + Support + + +---------+ + | Name | Relationship | Address | Phone | + + +---------+ + | Darrius Quintana | ECON | Unknown | | + + +---------+ + Care Team Providers + +------+ + | Care Plate Setter Name | Role | Phone | + [...] | | 2017 | | Center at [facility] [address] | [address] | | | | | [address] | [place], | | | | | Mailcode: Center | [place] [address] | | | | | for Health and | [phone] | | | | | [facility] [address] | | | | | | [place], [place] | | | | | | [address] | | | | | | [phone] | | | +--------+ + + + [...] | | | | | [place], | | | | | | [place] [address] | | | | | | [phone] | | | | | | | | +--------+---------+ + + + documented as of this encounter Visit Diagnoses Not on filedocumented in this encounter"
--- OUTSIDE RECORDS SUMMARY | ~2019-06-11 | XMS | Encounter Summary ---
Demographics + + + | Address | [address] | | | [place] [address] | + + + | Home Phone | | + + + | Preferred Language | Unknown | + + + | Marital Status | | + + + | Hindu Affiliation | Unknown | + + + | Race | Unknown | + + + | Ethnic Group | Unknown | + + + Author + + + | Author | [facility] | | | and [place] | + + + | Organization | [facility] | | | and [place] | + + + | Address | Unknown | + + + | Phone | Unavailable | + + + Support + + + + + | Name | Relationship | Address | Phone | + + + + + | Lamar Phillips | REZA | [place] [address] | | + + + + + Care Team Providers + +------+ + | Care Crimp Setter Name | Role | Phone | [...] + + + + | 10/19/ | Telephone | [facility] | Janel, | Other | | 2017 | | [facility] | Mike White MD [address] | | | | | [facility] [address] | [address] [place] | | | | | [address] [place] | [place] [address] | | | | | [place] [address] | [phone] | | | | | [phone] | | | +--------+ + + + [...]
--- OUTSIDE RECORDS SUMMARY | ~2019-06-11 | XMS | Clinical Summary ---
Demographics + + + | Address | [address] | | | [place] [address] | + + + | Home Phone | | + + + | Preferred Language | Unknown | + + + | Marital Status | Single | + + + | Advent Affiliation | NON | + + + | Race | White | + + + | Ethnic Group | Not or | + + + Author + + + | Author | [facility] | + + + | Organization | [facility] | + + + | Address | Unknown | + + + | Phone | Unavailable | + + + Support + + +---------+ + | Name | Relationship | Address | Phone | + + +---------+ + | Darrius Quintana | ECON | Unknown | | + + +---------+ + Care Team Providers + +------+ + | Care Beauty Shop Manager Name | Role | Phone | + +------+ + | Kristian Anderson DO | PCP | | + +------+ + Source Comments CHAPIN is fully live on both [facility] and [facility] In[facility] Allergies + + + + + + [...] | + + + + + + Medications + + + +---------+------+------+-------+ | Medication | Sig | Dispensed | Refills | Star | End | Statu | | | | | | t | Date | s | | | | | | Date | | | + + + +---------+------+------+-------+ | potassium chloride | Take 20 mEq by mouth | | 0 | | | Activ | | 20 mEq oral packet | once daily. | | | | | e | + + + +---------+------+------+-------+ | MULTIVITAMIN ORAL | Take 1 tablet by | | 0 | | | Activ | | | mouth once daily. | | | | | e | + + + +---------+------+------+-------+ | clobetasol 0.05 % | Apply to affected | | 0 | | | Activ | | topical ointment | area | | | | | e | + + + +---------+------+------+-------+ | acetaminophen 500 | Take 2 tablets by | | 0 | 12/1 | | Activ | | mg oral | mouth every six | | | 2/20 | | e | | tabletIndications: | hours. Indications: | | | 17 | | | | pain | Pain | | | | | | + + + +---------+------+------+-------+ | MAGNESIUM ORAL | Take 250 mg by mouth | | 0 | | | Activ | | | once daily. | | | | | e | + + + +---------+------+------+-------+ | NYSTATIN MISC | 100 mg two times | | 0 | | | Activ | | | daily (every | | | | | e | | | [id number]). | | | | | | | | ointment | | | | | | + + + +---------+------+------+-------+ | Ostomy Supplies | Colostomy | 1 each | 11 | 11/0 | | Activ | | misc | [id number]: CO | | | 20 | | e | | | [id number], Skin prep: | | | 18 | | | | | 3M 3344 (30/mo), Adh | | | | | | | | Rem HO 7760 | | | | | | | | (1box/mo), Rings: HO | | | | | | | | 8805 (10/mo), | | | | | | | | Deodorant[place] [address] | | | | | | | | (60/mo), Pwdr: CT | | | | | | | | 203205 (1oz/mo), | | | | | | | | Belt: Lrg (2/mo) | | | | | | | | and Irrigation CO | | | | | | | | [id number], Sleeve [place] | | | | | | | | [id number] | | | | | | + + + +---------+------+------+-------+ | BIOTIN ORAL | Take 5,000 mg by | | 0 | | | Activ | | | mouth once daily. | | | | | e | + + + +---------+------+------+-------+ | loratadine | Take 1 tablet by | | 0 | | | Activ | | (CLARITIN ORAL) | mouth once daily in | | | | | e | | | the morning. | | | | | | + + + +---------+------+------+-------+ | oxybutynin CR 10 | | | 0 | 04/1 | | Activ | | mg oral tablet | | | | 5/20 | | e | | extended release | | | | 19 | | | | 24hr | | | | | | | + + + +---------+------+------+-------+ | MYRBETRIQ 50 mg | | | 0 | 04/1 | | Activ | | oral tablet extended | | | | 5/20 | | e | | release 24 hr | | | | 19 | | | + + + +---------+------+------+-------+ | lamoTRIgine 25 mg | Take 25 mg by mouth | | 0 | | | Activ | | oral tablet | two times daily. | | | | | e | + + + +---------+------+------+-------+ | buPROPion XL 300 | Take 300 mg by mouth | | 0 | | | Activ | | mg oral tablet | once daily in the | | | | | e | | extended release 24 | morning. | | | | | | | hr | | | | | | | + + + +---------+------+------+-------+ Active Problems + + + | Problem | Noted Date | + + + | CA of rectum | 10/01/2016 | + + + + + | Overview: Overview: | | ACTIVE DIAGNOSIS: Rectal Cancer. | + + Encounters +--------+ + + + + | Date | Type | Specialty | Care Team | Description | +--------+ + + + + | 05/30/ | Abstract | Surgery | Ailyn Wolff MD | Medical Records | | 2018 | | | | Review | +--------+ + + + + | 05/28/ | MyChart | Surgery | Ailyn Wolff MD | RE: surgery | | 2018 | Encounter | | | | +--------+ + + + + | 03/13/ | Abstract | Surgery | Ailyn Wolff MD | Medical Records | | 2018 | | | | Review | +--------+ + + + + | 03/12/ | Office | Surgery | Ailyn Wolff MD | CA of rectum (HCC) | | 2018 | Visit | | | (Primary Dx) | +--------+ + + + + | 03/12/ | Travel | | | | | 2018 | | | | | +--------+ + + + + from Last 3 Months Immunizations + + + + | Name | Administration Dates | Next Due | + + + + | Influenza, high dose | 05/17/2018 | | | seasonal, | | | | preservative-free | | | + + + + Family History + + +------+ + | [...] Heart Attack | Father | | from [place] at age 52 | + + +------+ [...] recent travel history available. | + + Last Filed Vital Signs + [...] + | Respiratory Rate | 16 | 11/27/2018 9:44 AM | | | | | PDT | | + + + + + | Oxygen Saturation | 98% | 08/22/2017 12:33 PM | | | | | PST [...] | | + + + + + Plan of Treatment +--------+---------+ + + + | Date | Type | Specialty | Care Team | Description | +--------+---------+ + + + | 06/18/ | Office | Surgery | Ailyn Wolff MD | | | 2019 | Visit | | [address] | | | | | | [place], | | | | | | [place] [address] | | | | | | [phone] | | | | | | | | +--------+---------+ + + + + + + + + | Health Maintenance | Due Date | Last Done | Comments | + + + + + | Influenza (Flu) | Completed | 05/28/2019, 05/19/2018, | | | vaccination | | 05/17/2018, Additional history | | | | | exists | | + + + + + | Pneumococcal | Aged Out | | No longer eligible | | vaccination | | | based on patient's | | | | | age to complete this | | | | | topic | + + + + + Implants + +------+------+ +--------+--------+--------+ | Implanted | Type | Area | Manufacture | Device | Shelf | Model | | | | | r | | Expira | / | | | | | | Identi | tion | Serial | | | | | | fier | Date | / Lot | + +------+------+ +--------+--------+--------+ | Implanted Port | | | | | | | + +------+------+ +--------+--------+--------+ + + | Description:NOT a power port, | | verified with Lyn landon | | MILAD[employer] Pérez | + + Procedures + +--------+ + + + | [...] section. | + +--------+ + + + from Last 3 Months Results [employer], SERUM (03/12/2019 10:17 AM [...] | + + + + + | [facility] | [address] | [place] [address] | | | SERVICES, CORE | [address] | | | + + + + + from Last 3 Months Insurance + +--------+ +--------+ + +--------+ | Payer | Benefi | Subscriber | Effect | Phone | Address | Type | | | t Plan | ID | mery | | | | | | / | | Dates | | | | | | Group | | | | | | + +--------+ +--------+ + +--------+ | MEDICARE | MEDICA | xxxxxxxxxxx | 12/24/19 | [phone] | [address] | | | RE A & | | 19-Pre | [phone] | | | [address] | | sent | | [place], [place] | | | | | | | | [phone] | | + +--------+ +--------+ + +--------+ | COMMERCIAL | INDIVI | [id number] | | | | Indemn | | INDIVIDUAL | DUAL | | 019-Pr | | | ity | | | COMMER | | esent | | | | | | CIAL | | | | | | + +--------+ +--------+ + +--------+ + +--------+ +--------+ + + | Guarantor Name | Accoun | Relation to | Date | Phone | Billing Address | | | t Type | Patient | of | | | | | | | | | | + +--------+ +--------+ + + | Jenn Parada | Person | Self [birth year] | [address] | | | al/Fam | | [phone] | [phone] | [address] | | | [place] | | | [address] (Home) | [phone] | + +--------+ +--------+ + + Advance Directives + + + + + | Code Status | Date | Date | Comments | | | Activated | Inactivated | | + + + + + | Full Code | 07/03/2017 | 07/05/2017 | | | | 7:49 PM | 10:32 PM | | + + + + + + + + +---+ | | | | | + + + +---+ | Full Code | 06/30/2017 | 06/30/2017 | | | | 5:40 AM | 8:13 PM | | + + + +---+ + + + +---+ | | | | | + + + +---+ | Full Code | 06/30/2017 | 06/30/2017 | | | | 5:40 AM | 5:40 AM | | + + + +---+
--- OUTSIDE RECORDS SUMMARY | ~2019-06-11 | XMS | Encounter Summary ---
Demographics + + + | Address | [address] | | | [place] [address] | + + + | Home Phone [...] Team Providers + +------+ + | Care Television Director Name | Role | Phone | [...] | +--------+ + + + + | 10/21/ | Abstract | [facility] | Ailyn Wolff MD | Medical Records | | 2017 | | Center at [facility] [address] | [address] | Review | | | | [address] | [place], | | | | | Mailcode: [place] | [place] [address] | | | | | for Health and | [phone] | | | | | [facility] [address] | | | | | | [place], [place] | | | | | | [address] | | | | | | [phone] | | | +--------+ + + + [...] | | | | | [place], | | | | | | [place] [address] | | | | | | [phone] | | | | | | | | +--------+---------+ + + + documented as of this encounter Visit Diagnoses Not on filedocumented in this encounter"
--- OUTSIDE RECORDS SUMMARY | ~2019-06-11 | XMS | Encounter Summary ---
Demographics + + + | Address | [address] | | | [place] [address] | + + + | Home Phone | | + + + | Preferred Language | Unknown | + + + | Marital Status | | + + + | Bahai Affiliation | Unknown | + + + | Race | Unknown | + + + | Ethnic Group | Unknown | + + + Author + + + | Author | [facility] | | | and [place] | + + + | Organization | [facility] | | | and [place] | + + + | Address | Unknown | + + + | Phone | Unavailable | + + + Support + + + + + | Name | Relationship | Address | Phone | + + + + + | Lamar Phillips | REZA | [place] [address] | | + + + + + Care Team Providers + +------+ + | Care Marketing Strategy Analyst Name | Role | Phone | + +------+ + | Kristian Anderson DO | PCP | | + +------+ + Reason for Visit + + + | Reason | Comments | + + + | Psychosocial Support | | + + + Encounter Details +--------+ + + + + | Date | Type | Department | Care Team | Description | +--------+ + + + + | 10/18/ | Documentati | [facility] | Vu Guillermo, | Psychosocial Support | | 2017 | on | [facility] | GAS ROLLER OPERATOR | | | | | [facility] [address] | | | | | | [address] | | | | | | [place] [address] | | | | | | [phone] | | | +--------+ + + + [...] documented as of this encounter Progress Notes Vu Guillermo MSW - 10/18/2016 2:44 PM PDTMSW met with patient, Jenn Parada, to intro duce self and administer NCCN Distress Screening Tool. Jenn is being treated for rectal canc er. She lives in [place], [place]. Jenn is employed at [employer] in [place] and is [place]ove [place]. Jenn reported that she has applied for SSDI. Jenn is alert and oriented X4 and reports a history of depression and/or anxiety. There is no evidence of thought disorder or other mental illness. Jenn reports level of distress is 6 on a 10 point scale. She attributes level of distress to concerns over finances and work, treatment decisions, depression, fears, nervousness and worry, along with physical problems including changes in urination, eating issues, fatigue, memory/concentration issues, nausea , dry/congested nose, pain and sleep disturbances. Jenn reported that she is currently takin g Wellbutrin for depression. She also reported that she quit smoking July 19, 2016 and c jocelyne to abstain. Patient reports an adequate support system, good coping skills and str phi horacio. This Hydropulper allowed for expression of feeling and provided supportive counseling and information regarding the emotional aspects of a cancer diagnosis and treatment. Encourage avi Jenn to attend community support group and offered literature on patient s diagnosis. Pr ovided Jenn with ACS booklets on Chemotherapy and Radiation Therapy. This Hydropulper and Automotive Sales Manager are available to provide emotional support an d additional community resource information and referral as needed. Jenn is aware of suppor services and how to access them. Will follow up at appointments and by phone as needed.El ectronically signed by GEETA North at 10/18/2016 3:03 PM PDTdocumented in this enc ounter Plan of Treatment Not on filedocumented as of this encounter Visit Diagnoses Not on filedocumented in this encounter"
--- OUTSIDE RECORDS SUMMARY | ~2019-06-11 | XMS | Encounter Summary ---
Demographics + + + | Address | [address] | | | [place] [address] | + + + | Home Phone [...] + + + | Author | [facility] | + + + | Organization | [facility] | + + + | Address | Unknown | + + + | Phone | Unavailable | + + + Support + + +---------+ + | Name | Relationship | Address | Phone | + + +---------+ + | Darrius Quintana | ECON | Unknown | | + + +---------+ + Care Team Providers + +------+ + | Care Corrections Sergeant Name | Role | Phone | + [...] + + + + | 05/16/ | Abstract | [facility] | Ailyn Wolff MD | Medical Records | | 2017 | | Center at [facility] [address] | [address] | Review | | | | [address] | [place], | | | | | Mailcode: [place] | [place] [address] | | | | | for Health and | [phone] | | | | | [facility] [address] | | | | | | [place], [place] | | | | | | [address] | | | | | | [phone] | | | +--------+ + + + [...] | | | | | [place], | | | | | | [place] [address] | | | | | | [phone] | | | | | | | | +--------+---------+ + + + documented as of this encounter Visit Diagnoses Not on filedocumented in this encounter"
--- OUTSIDE RECORDS SUMMARY | ~2019-06-11 | XMS | Encounter Summary ---
Demographics + + + | Address | [address] | | | [place] [address] | + + + | Home Phone | | + + + | Preferred Language | Unknown | + + + | Marital Status | | + + + | Bahai Affiliation | Unknown | + + + | Race | Unknown | + + + | Ethnic Group | Unknown | + + + Author + + + | Author | [facility] | | | and [place] | + + + | Organization | [facility] | | | and [place] | + + + | Address | Unknown | + + + | Phone | Unavailable | + + + Support + + + + + | Name | Relationship | Address | Phone | + + + + + | Lamar Phillips | REZA | [place] [address] | | + + + + + Care Team Providers + +------+ + | Care Stained Glass Glazier Helper Name | Role | Phone | + +------+ + | Kristian Anderson DO | PCP | | + +------+ + Encounter Details +--------+ + + + + | Date | Type | Department | Care Team | Description | +--------+ + + + + | 01/12/ | Orders Only | [facility] | Michelle Zarate, | | | 2017 | | MED [facility] | RN | | | | | INF[facility]ION [address] | | | | | | [place], | | | | | | [place] [address] | | | | | | [phone] | | | +--------+ + + + [...]
--- OUTSIDE RECORDS SUMMARY | ~2019-06-11 | XMS | Encounter Summary ---
Demographics + + + | Address | [address] | | | [place] [address] | + + + | Home Phone | | + + + | Preferred Language | Unknown | + + + | Marital Status | Single | + + + | Jew Affiliation | NON | + + + | Race | White | + + + | Ethnic Group | Not or | + + + Author + + + | Author | [facility] | + + + | Organization | [facility] | + + + | Address | Unknown | + + + | Phone | Unavailable | + + + Support + + +---------+ + | Name | Relationship | Address | Phone | + + +---------+ + | Darrius Quintana | ECON | Unknown | | + + +---------+ + Care Team Providers + +------+ + | Care Offal Icer Poultry Name | Role | Phone | + [...] Record | | 2017 | | at [facility] [address] | | Review (GEN Records | | | | [place] Mailcode: | | Checklist ) | | | | [address] | | | | | | Health and [facility], | | | | | | [facility] | | | | | | floor [place], [place] | | | | | | [address] | | | | | | [phone] | | | +--------+ + + + [...] External Referral Last EKG with original tracings [facility] [place] Yes- Abstract Last Echo with images and report no Last Stress Test with images and report no Last Cardiac Catheterization - images and report no Last Holter or Event monitor - report no Labs (BMP, Lipids, TSH, Hemoglobin A1C in last 6 months) [facility] 09/29 Yes- A bstract [facility] Last PPM/ICD Interrogation report no Last Cardiac [...] | | | | | [place], | | | | | | [place] [address] | | | | | | [phone] | | | | | | | | +--------+---------+ + + + documented as of this encounter Visit Diagnoses Not on filedocumented in this encounter"
--- OUTSIDE RECORDS SUMMARY | ~2019-06-11 | XMS | Encounter Summary ---
Demographics + + + | Address | [address] | | | [place] [address] | + + + | Home Phone | | + + + | Preferred Language | Unknown | + + + | Marital Status | | + + + | Synagogue Affiliation | Unknown | + + + | Race | Unknown | + + + | Ethnic Group | Unknown | + + + Author + + + | Author | [facility] | | | and [place] | + + + | Organization | [facility] | | | and [place] | + + + | Address | Unknown | + + + | Phone | Unavailable | + + + Support + + + + + | Name | Relationship | Address | Phone | + + + + + | Lamar Phillips | REZA | [place] [address] | | + + + + + Care Team Providers + +------+ + | Care Foam Fabricator Name | Role | Phone | + +------+ + | Kristian Anderson DO | PCP | | + +------+ + Reason for Visit + + + | Reason | Comments | + + + | Follow-up | | + + + Encounter Details +--------+ + + + + | Date | Type | Department | Care Team | Description | +--------+ + + + + | 02/14/ | Hospital | [facility] | [facility], | Rectal cancer (HCC) | | 2017 | Encounter | [facility] | Sirena White MD [address] | | | | [facility] [address] | [facility] | | | | | [address] [facility] | [place] [address] | | | | | [place] [address] | [phone] | | | | | [phone] | | | +--------+ + + + [...] + + + | Blood Pressure | 141/78 | 02/14/2017 9:18 AM | | | | | PDT | | + + + + + | Pulse | 83 | 02/14/2017 9:18 AM | | | | | PDT | | + + + + + | Temperature | 36.2 C (97.2 F) | 02/14/2017 9:18 AM | | | | | PDT | | + + + + + | Respiratory Rate | 16 | 02/14/2017 9:18 AM | | | | | PDT | | + + + + + | Oxygen Saturation | 99% | 02/14/2017 9:18 AM | | | | | PDT | | + + + + + | Inhaled Oxygen | - | - | | | Concentration | | | | + + + + + | Weight | 69.1 kg (152 lb 4.8 | 02/14/2017 9:18 AM | | | | oz) | PDT | | + + + + + | Height | - | - | | + + + + + | Body Mass Index | 26.14 | 10/18/2016 11:04 AM | | | | | PDT | | + + + + + documented in this encounter Medications at Time of Discharge [...] documented as of this encounter Progress Notes Sirena Helton MD - 02/14/2017 9:07 AM PDTFormatting of this note might be differe nt from the original. Hematology/Oncology Progress Note [facility] LETY Cheema Pt. Name/Age/: Paulette Byrnes 56 y.o. 1960 Med. Record Number: [id number] Date of admission: 02/14/2017 The patient's primary care provider is Kristian Anderson DO. Identifying Statement: Paulette Byrnes is a 56 y.o. female from [address] [place] [address] with Locally Advanced Rectal Cancer. The patient chart and medications were reviewed in detail and the patient was seen and exam ined. History of Present Illnesses, their Current Assessments and Plans: Problem List Rectal cancer Overview ACTIVE DIAGNOSIS: Locally Advanced Rectal Cancer. 1Jame Barajas presented to the [facility] emergency room on July 20, 2016 [...] gotti was discharged and allowed to recover. 2. Repeat evaluation by Dr. Thacker with colonoscopy on September 02, 2016 included a rigid pro ctoscopy that demonstrated a circumferential rectal tumor at 6 cm within the rectum. Biopsy specimen number [id number] evaluated by Dr. Felipe Nixon of [facility] was notable for a tubular adenoma without high-grade dysplasia or overt carcinoma. This proced ure also included a full colonoscopy through the ostomy were 2 additional polyps were remove d, a tubular adenoma at 35 cm and a hyperplastic polyp at [address] C/A/P at [facility] in [place], [place] demonstrated no evidence of metastatic disease. 4. On September 22, 2016 Dr. Thacker placed in internal jugular Port-A-Cath without complications. 5. MRI of pelvis performed on October 05, 2016 at [facility]: Rectal mass 7.7 cm x 6.2 cm x 9.6 cm in length located within 3 cm of the anal sphincter and 6.4 cm from the anal verge with radi ographic extension though multiple areas of the bowel wall. 6. CT abdomen/pelvis also at [facility] October 05, 2016; large almost completely circumferential r ectosigmoid mass better delineated on the corresponding MRI with adjacent probable abscess. No distant metastases identified. 7. On October 14, 2016 Paulette was evaluated by Dr. Ailyn Wolff and Dr. Shea Mcneill of the [facility] where her case was presented to their tumor board. Clinical exa m is notable for an overt rectal carcinoma invading into the vagina. 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 Concerns raised by the [facility] Tumor Board were that the prior placement of the drain through the tumor had increased the patient's risk of carcinomatosis and disse mination of her tumor, and recommended that she begin her therapy with 6 cycles of FOLFOX ch emotherapy before crossing over to combined modality chemoradiation therapy to be followed b y a pelvic exenteration. 8. Cycle #1 FOLFOX, October 18, 2016. 9. Exam under anesthesia, multiple large biopsies (Kirstie) October 27, 2016; "a digital rectal exam was performed and I could easily palpate the tumor with my index finger. We used our br onchoscopy biopsy forceps to take multiple large pieces of tissue for pathological review as well as mutation analysis." [id number] 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 "This is highly suspicious for invasive malignancy. Presence of absence of an invasive lesi on cannot be established with certainty." 10. Cycles # 2 - 6 FOLFOX November 01, 2016 - January 10, 2017. 11. MRI Pelvis January 03, 2017; Interval decreased size of the large rectosigmoid mass now me asuring 7.2 x 6.1 x 4.7 cm at greatest dimension. 12. CT chest/abdomen/pelvis January 04, 2017; Significant interval decreased size of the previ ously described large rectosigmoid mass including multiple exophytic components. 13. December 31, 2016; begin combined modality chemoradiation therapy with CIVI 5FU at 225 mg/m /day. Current Assessment & Plan Paulette Byrnes returned to clinic on 02/14/2017 for follow up of locally advanced rect al cancer. Interval history is notable for the fact that Paulette reports that her radiation therapy treat ment plan will be completed on February 17, 2017. Review of systems is notable for and increase in abdominal pain, and increase in the volume of fluid eminating from the ZAIN drain, which Paulette describes as foul smelling. Clinical exam is notable for no signs of candidal overgrowth at the ZAIN exit site. Mucositis has nearly completely resolved. Laboratory exam is notable grade 1 anemia. Assessment; Locally advanced rectal cancer. Plan; Paulette will initiate another infusion of 5FU at 180 mg/m/day with duration limited to three days to coincide with the completion of her radiation therapy treatment plan. She carlos l follow up with Dr. Espana with repeat imaging at [facility] on March 02, 2017. Due to complaints of increased abdominal pain and foul smelling ZAIN discharge, potiantially related to anaerobic infection of her pelvic abscess, I recommended that Paulette Byrnes start Flagyl and stay on it until her comprehensive reassessment with Dr. Espana on March 02, 2017. Review of Systems: Constitutional: Reports energy level is lower. Reports nausea this morning. Denies high fe vers, shaking chills, anorexia, vomiting, weight loss, or night sweats. Appetite without ch anges. Ear, Nose, Mouth, Throat: Reports sores in mouth are almost gone. Continues with soda rinse s. Denies odynophagia, dysphagia, or tinnitus. Cardiovascular: Denies shortness of breath, dyspnea on exertion, chest pain, palpitations o r orthopnea. Respiratory: Denies cough, hemoptysis, or sputum production. Gastrointestinal: Reports lots of gas pains in abdomen due to foods she eats. Ostomy draini ng well still. Denies constipation, diarrhea, melena, or bright red blood per rectum. Genitourinary: Reports having "menstrual like cramping". Reports that she continues to have burning on urination- she was told this is like sunburn from radiation and she has been usi ng spray for this that is helping. Denies hematuria or dysuria. Musculoskeletal: Denies joint pain or tenderness. Neurologic: Reports vision seems blurry this morning. Denies headache or numbness/tingling of the extremities. Endocrine: Denies peripheral edema or heat/cold intolerance. Hematologic: Reports bleeding on her lip that lasted 2-3 minutes, area is healing now. Ranjan es spontaneous bruising. Integumentary: Denies rash, wounds or other skin concerns. Pain: Denies pain today. Note: Here for follow up, labs and treatment. My chart: active Scheduled Medications: Current Outpatient Prescriptions Medication Sig Dispense Refill ALPRAZolam (XANAX) 0.5 mg tablet Bring with to scheduled MRI, take one tablet 30 minute s before MRI, may repeat as needed. (Patient not taking: Reported on 01/31/2017) 2 tablet 0 ascorbic acid (VITAMIN C) 500 mg tablet Take 1,000 mg by mouth Daily. Biotin 10 MG CAPS Take by mouth. For Hair, skin, nails. buPROPion (WELLBUTRIN SR) 150 mg 12 hr tablet Take 150 mg by mouth Daily. clobetasol (TEMOVATE) 0.05% ointment Apply topically Once a week. CRANBERRY EXTRACT PO Take by mouth. dexamethasone (DECADRON) 4 mg tablet Take 4 mg by mouth 2 times daily (with breakfast & dinner). Takes day 2-3 after chemotherapy treatment. HYDROcodone-acetaminophen (NORCO) 5-325 mg per tablet Take 1-2 tablets by mouth every 4 hours as needed for Pain. ibuprofen (ADVIL, MOTRIN) 200 mg tablet Take 200 mg by mouth every 6 hours as needed fo r Pain. metroNIDAZOLE (FLAGYL) 500 MG tablet Take 1 tablet by mouth 3 times daily for 21 days. 63 tablet 0 Multiple Vitamins-Minerals (MULTIVITAMIN ADULT PO) Take by mouth. mupirocin (BACTROBAN) 2% ointment Apply topically 2 times daily. nystatin (MYCOSTATIN) powder Apply topically as needed. ondansetron (ZOFRAN ODT) 8 mg disintegrating tablet Take 8 mg by mouth every 8 hours as needed for Nausea. potassium chloride (K-DUR) 20 mEq ER tablet Take 1 tablet by mouth Daily. No current facility-administered medications for this encounter. Allergies: Allergy: Allergies Allergen Reactions Propoxyphene Na Ferric Gluc Cplx In Sucrose Nausea Only and Other (See Comments) Flushing and diaphoretic Past Medical and Surgical History, Social History and Problems: Past Medical History: Diagnosis Date Hyperlipidemia Hypertension Nephrolithiasis Squamous cell carcinoma of vulva (HCC) Past Surgical History: Procedure Laterality Date DILATION AND CURETTAGE OF UTERUS 2 times PORTACATH PLACEMENT/REMOVAL Right 09/22/2016 Internal jugular (Kirstie) Social History Social History Marital status: Spouse name: N/A Number of children: N/A Years of education: N/A Occupational History Not on file. Social History Main Topics Smoking status: Former Smoker Packs/day: 1.50 Years: 41.00 Quit date: 07/19/2016 Smokeless tobacco: Not on file Alcohol use No Comment: rare Drug use: No Comment: Previous use with speed, quit 40 years ago Sexual activity: Not Currently Other Topics Concern Not on file Social History Narrative No narrative on file Patient Active Problem List Diagnosis Rectal cancer Lichen sclerosus Objectives: Temp: 36.2 C (97.2 F) BP: 141/78 Pulse: 83 Resp: 16 SpO2: 99 % on Min/Max Temp past 24 hours:No Data Recorded No intake or output data in the 24 hours ending 02/15/17 1909 Wt. Admission: Weight: 69.1 kg (152 lb 4.8 oz) Wt. Current: Weight: 69.1 kg (152 lb 4.8 oz) Wt Readings from Last 3 Encounters: 02/14/17 69.1 kg (152 lb 4.8 oz) 07/17/17 68.8 kg (151 lb 9.6 oz) 01/31/17 68.2 kg (150 lb 6.4 oz) Physical Exam: General: The patient is alert and oriented. No acute distress. Eyes: Conjunctiva clear. Sclera anicteric. ENMT: Oropharynx fee of lesions, mucous membranes moist. Cardiovascular: Regular rate and rhythm, no rubs, gallops, or murmurs. Lungs: Clear to auscultation and percussion. Chest: Right anterior chest port-a-cath was accessed with a Grant needle and a brisk blood return was noted. It was secured for infusional therapy. Abdomen: Soft, nontender, no hepatospenomegaly. No palpable masses. Bowel sounds present. Ostomy intact in the midline with well perfused stoma. Hong Jasmine drain in the left lowe r quadrant; exit site has no erythema and no discharge. There is 50 cc of lucas, opaque flui d in the bulb. Extremities: Nontender, no erythema, no edema. Skin: No rashes, bruising, or petechiae. Lymph: No palpable nodes in the neck, supraclavicular fossa, axilla or groin. Neurological: Cranial nerves are intact. Normal sensory and motor function, No focal defi cits noted. Muscular/Skeletal: No acute bony tenderness. No evidence of sarcopenia. Psychiatric: Normal mood and affect. ECOG Performance Status [x] 0 [] 1 [] 2 []3 [] 4 ECOG [...] John Paul Baer., Jumana, R.H., Fransisca Baltazar., Jason Roque, Caitie Travis., Leonila Montes., Danielle, P JameP.: Toxicity And Response Criteria Of The Eastern [...] for PAULETTE BYRNES ( ) as of 02/15/2017 18:55 Ref. Range 02/14/2017 08:52 WBC Latest Ref Range: 4.0 - 11.0 K/uL 8.8 RBC: Latest Ref Range: 3.70 - 5.20 M/uL 3.70 Hgb Latest Ref Range: 11.5 - 16.0 g/dL 10.5 (L) Hct, Final Latest Ref Range: 34.0 - 47.0 % 32.4 (L) MCV Latest Ref Range: 83.0 - 101.0 fL 87.5 MCH Latest Ref Range: 28.0 - 35.0 pg 28.5 MCHC Latest Ref Range: 32.0 - 36.0 g/dL 32.5 RDW-CV Latest Ref Range: <15.0 % 21.7 (H) Platelet Count Latest Ref Range: 140 - 440 K/uL 370 MPV Latest Units: fL 6.4 Absolute Neutrophils Latest Ref Range: 1.80 - 8.50 K/uL 7.80 Absolute Lymphocytes Latest Ref Range: 0.60 - 3.20 K/uL 0.30 (L) Absolute Monocytes Latest Ref Range: 0.00 - 1.00 K/uL 0.60 Absolute Eosinophils Latest Ref Range: 0.00 - 0.40 K/uL 0.20 Absolute Basophils Latest Ref Range: 0.00 - 0.10 K/uL 0.00 % Neutrophils Latest Ref Range: 45.0 - 82.0 % 87.9 (H) % Lymphocytes Latest Ref Range: 20.0 - 45.0 % 2.9 (L) % Monocytes Latest Ref Range: 4.0 - 12.0 % 6.7 % Eosinophils Latest Ref Range: 0.0 - 5.0 % 2.2 % Basophils Latest Ref Range: 0.0 - 1.0 % 0.3 NA Latest Ref Range: 136 - 149 mmol/L 139 K Latest Ref Range: 3.5 - 5.1 mmol/L 3.1 (L) Chloride Latest Ref Range: 98 - 109 mmol/L 105 Carbon dioxide Latest Ref Range: 24 - 31 mmol/L 25 ANION GAP Latest Ref Range: 3 - 16 mmol/L 9 GLUCOSE Latest Ref Range: 70 - 109 mg/dL 97 BUN Latest Ref Range: 7 - 18 mg/dL 10 Creatinine Latest Ref Range: 0.60 - 1.30 mg/dL 0.55 (L) BUN/CREA Unknown 18.2 ALBUMIN Latest Ref Range: 3.2 - 5.0 g/dL 2.8 (L) Albumin/Globulin ratio Latest Ref Range: 0.8 - 2.0 0.8 Total protein Latest Ref Range: 6.0 - 7.8 g/dL 6.1 EGFR IF NOT Latest Ref Range: >=60 mL/min/1.73m2 >60 Calcium Latest Ref Range: 8.3 - 10.5 mg/dL 8.3 ALK PHOS Latest Ref Range: 40 - 110 U/L 95 ALT (SGPT) (REF) Latest Ref Range: 6 - 45 U/L 33 AST (SGOT) (REF) Latest Ref Range: 10 - 42 U/L 24 LDH TOTAL Latest Ref Range: 91 - 180 U/L 127 BILIRUBIN TOTAL Latest Ref Range: 0.1 - 1.5 mg/dL 0.3 GLOBULIN Latest Ref Range: 2.1 - 3.8 g/dL 3.3 Pharmacovigilance: Palliative Care: Patient's Medications New Prescriptions METRONIDAZOLE (FLAGYL) 500 MG TABLET Take 1 tablet by mouth 3 times daily for 21 days. Modified Medications No medications on file Discontinued Medications FLUCONAZOLE (DIFLUCAN) 100 MG TABLET Take two tablets on day 1, then 1 tab daily for ne xt 13 days. Procedure: Day 1, Week 6 (7-day cycle) Completed; Released on 02/14/2017; Originally planned for 02/14/2017 Nursing Orders OK to proceed with chemotherapy (Not Released) 02/14/2017 INFORMED CONSENT: The nature and character of the proposed treatment with 72 hours CIVI 5F U and the anticipated results of the proposed treatment with 72 hours CIVI 5FU;recognized al ternative forms of treatment, including non-treatment; the risks benefits, and side effects of proposed treatment, alternative treatments and non-treatment were discussed with the ivette ent who consents to proceed with treatment with 72 hours CIVI 5FU. The treating provider has examined the patient and reviewed the diagnostic data, including laboratory data, and deems that it is safe and appropriate to proceed with treatment with 72 hours CIVI 5FU.SIRENA HELTON MD. OrderHistory Plans for discharge (Not Released) Continue CIVI 5 FU for another 72 hours, then discontinue indefinitely. FU with Dr. Ailyn wolff at [facility] on March 02, 2017. rq OrderHistory Continuous infusion pump initiation (Not Released) Routine, ONE TIME Starting when released Confirm continuous 5FU 180 mg/m2/day over 72 hours (3 days to complete therapy) OrderHi story Portions of this chart may have been created with [facility] voice recognition software. Occasi onal wrong-word or sound-alike substitutions may have occurred due to the inherent leung itations of voice recognition software. Please read the chart carefully and recognize, using context, where these substitutions have occurred. documented in t his encounter Plan of Treatment Not on filedocumented as of this encounter Procedures + +--------+ + + + | Procedure Name | Priori | Date/Time | Associated Diagnosis | Comments | | | ty | | | | + +--------+ + + + | IMAGING REPORT - | | 03/02/2017 | | Results for this | | EXTERNAL SCAN | | 12:00 AM | | procedure are in the | | | | PDT | | results section. | + +--------+ + + + | IMAGING REPORT - | | 03/02/2017 | | Results for this | | EXTERNAL SCAN | | 12:00 AM | | procedure are in the | | | | PDT | | results section. | + +--------+ + + + documented in this encounter Results IMAGING REPORT - EXTERNAL SCAN (03/02/2017 12:00 AM PDT) + + + | Narrative | Performed At | + + + | Ordered by an | | | unspecified provider. | | + + + IMAGING REPORT - EXTERNAL SCAN (03/02/2017 12:00 AM PDT) + + + | Narrative | Performed At | + + + | Ordered by an | | | unspecified provider. | | + + + documented in this encounter Visit Diagnoses + + | Diagnosis | + + | Rectal cancer (HCC) Malignant neoplasm of rectum | + + documented in this encounter
--- OUTSIDE RECORDS SUMMARY | ~2019-06-11 | XMS | Encounter Summary ---
Demographics + + + | Address | [address] | | | [place] [address] | + + + | Home Phone [...] Team Providers + +------+ + | Care Parcel Post Truck Driver Name | Role | Phone | + [...] | | | | | [place], | | | | | | [place] [address] | | | | | | [phone] | | | | | | | | +--------+---------+ + + + documented as of this encounter Visit Diagnoses Not on filedocumented in this encounter"
--- OUTSIDE RECORDS SUMMARY | ~2019-06-11 | XMS | Encounter Summary ---
Demographics + + + | Address | [address] | | | [place] [address] | + + + | Home Phone | | + + + | Preferred Language | Unknown | + + + | Marital Status | | + + + | Sikh Affiliation | Unknown | + + + | Race | Unknown | + + + | Ethnic Group | Unknown | + + + Author + + + | Author | [facility] | | | and [place] | + + + | Organization | [facility] | | | and [place] | + + + | Address | Unknown | + + + | Phone | Unavailable | + + + Support + + + + + | Name | Relationship | Address | Phone | + + + + + | Lamar Phillips | REZA | [place] [address] | | + + + + + Care Team Providers + +------+ + | Care Taste Tester Name | Role | Phone | + [...] | | | | neoplasm of | Miek C, | [address] | | | | | rectum (HCC) | MD [address] | [place], | | | | | Procedures | [address] | [place] [address] | | | | | MS | [place], | Phone: | | | | | [place] | [place] [address] | [phone] | | | | | HCL | Phone: | Fax: | | | | | INJECTION, 1 | [phone] | [phone] | | | | | MG MS | Fax: | | | | | | DEXAMETHASON | [phone] | | | | | | E SODIUM | | | | | | | PHOS, 1 MG | | | | | | | MS LORAZEPAM | | | | | | | INJECTION, | | | | | | | 2 MG MS | | | | | | | OXALIPLATIN, | | | | | | | .5 MG MS | | | | | | | LEUCOVORIN | | | | | | | CALCIUM | | | | | | | INJECTION, | | | | | | | 50 MG MS | | | | | | | FLUOROURACIL | | | | | | | INJECTION, | | | | | | | 500 MG MS | | | | | | | DIPHENHYDRAM | | | | | | | INE HCL | | | | | | | INJECTIO, 50 | | | | | | | MG MS | | | | | | | METHYLPREDNI | | | | | | | SOLONE | | | | | | | INJECTION, | | | | | | | 125 MG MS | | | | | | | ADRENALIN | | | | | | | EPINEPHRINE | | | | | | | INJECT, .1 | | | | | | | MG MS | | | | | | | ALBUTEROL | | | | | | | COMP CON, 1 | | | | | | | MG MS | | | | | | | ALBUTEROL | | | | | | | NON-COMP | | | | | | | CON, 1 MG | | | | | | | MS | | | | | | | INJECTION, | | | | | | | FAMOTIDINE, | | | | | | | 20 MG MS | | | | | | | NORMAL | | | | | | | SALINE | | | | | | | SOLUTION | | | | | | | INFUS, 500 | | | | | | | ML MS | | | | | | | NORMAL | | | | | | | SALINE | | | | | | | SOLUTION | | | | | | | INFUS, 250 | | | | | | | ML MS | | | | | | | STERILE | | | | | | | WATER/SALINE | | | | | | | , 10 ML MS | | | | | | | CHEMOTHER, | | | | | | | IV PUSH,EA | | | | | | | ADD DRUG MS | | | | | | | CHEMOTHER, | | | | | | | IV INFUSION, | | | | | | | 1 HR MS | | | | | | | CHEMOTHER, | | | | | | | IV INFUSION, | | | | | | | EA HR MS | | | | | | | CHEMOTHER,NO | | | | | | | N-HORMONE | | | | | | | ANTI-NEOPL, | | | | | | | SUB-Q/IM MS | | | | | | | CHEMOTHER | | | | | | | HORMON | | | | | | | ANTINEOPL | | | | | | | SUB-Q/IM MS | | | | | | | | | | | | | | PALONOSETRON | | | | | | | HCL, 25 MCG | | | | | | | MS DRUGS | | | | | | | UNCLASSIFIED | | | | | | | INJECTION, | | | | | | | 1 ML | | | +--------+--------+ + + + + Encounter Details +--------+ + + + + | Date | Type | Department | Care Team | Description | +--------+ + + + + | 08/23/ | Hospital | [facility] | Janel, | Rectal cancer (HCC) | | 2018 | Encounter | MED CTR CHEMO | Mike White MD [address] | | | | | INFUSION [address] | [facility] | | | | | [address] [place], | [place] [address] | | | | | [place] [address] | [phone] | | | | | [phone] | | | +--------+ + + + [...] + + + +---------+ + + | acetaminophen | Take 1,000 mg by | | 0 | | | | (TYLENOL) 500 mg | mouth every 6 hours | | | | | | tablet | as needed for Pain. | | | | | | | Take prior to | | | | | | | oxycodone as needed | | | | | | | for pain. | | | | | + + [...] tablet by | 60 | 2 | // | | | 1 mg tablet | mouth every 6 hours | tablet | | 18 | | | | as needed for | [...] + + + +---------+ + + | oxyCODONE | Take 5 mg by mouth | | 0 | | | | (ROXICODONE) 5 mg | every [...] + + + +---------+ + + | PHENYLEPHRINE HCL | Take 1 tablet by | | 0 | | | | PO | mouth as needed. 1 | | | | 8 | | | tablet every 4 hours | | | | | | | as needed for | | | | | | | cough. | | | | | + + + +---------+ + + | potassium chloride | Take 20 mEq by mouth | | 0 | | | | (K-DUR) 20 mEq ER | Daily. | | | | 8 | | tablet | | | | | | + + + +---------+ + + documented as of this encounter Progress Jada Booker RN - 08/23/2017 1:50 PM PSTPatient discharged in satisfactory conditi on. Discharged ambulatory. To home. Verified that patient has antinausea medications at home. Future appointments and After Visit Summary (AVS) provided. documented in thi s encounter Plan of Treatment Not on filedocumented as of this encounter Procedures + +--------+ + + + | Procedure Name | Priori | Date/Time | Associated Diagnosis | Comments | | | ty | | | | + +--------+ + + + | SLIDE REVIEW, | Routin | 08/23/2017 | Rectal cancer | Results for this | | PERIPHERAL SMEAR | e | 9:01 AM | (HCC) | procedure are in the | | | | PST | | results section. | + +--------+ + + + | CBC WITH | STAT | 08/23/2017 | Rectal cancer | Results for this | | DIFFERENTIAL | | 9:01 AM | (HCC) | procedure are in the | | | | PST | | results section. | + +--------+ + + + | LACTATE | STAT | 08/23/2017 | Rectal cancer | Results for this | | DEHYDROGENASE | | 9:01 AM | (HCC) | procedure are in the | | | | PST | | results section. | + +--------+ + + + | COMPREHENSIVE | STAT | 08/23/2017 | Rectal cancer | Results for this | | METABOLIC PANEL | | 9:01 AM | (HCC) | procedure are in the | | | | PST | | results section. | + +--------+ + + + documented in this encounter Results Slide Review, Peripheral Smear (08/23/2017 9:01 AM PST) + + + + + + | Component | Value | Ref Range | Performed | Pathologist | | | | | At | Signature | + + + + + + | WBC | Normal | | [facility] | | | Morphology | | | [facility] | | | [facility] | [facility] | | | | | [facility] - | | | | | | LABORATORY | | + + + + + + | Rouleaux | Present (A) | Not Present | [facility] | | | | | | [facility] | | | [facility] | | [facility] | | | | | | [facility] - | | | | | | LABORATORY | | + + + + + + | Platelet | Increased (A) | Adequate | [facility] | | | Estimate | | | [facility] | | | | | | [facility] | | | | | | [facility] - | | | | | | LABORATORY | | + + + + + + | Hypochromas | Slight (A) | (none) | [facility] | | | ia | | | [facility] | | | | | | [facility] | | | | | | [facility] - | | | | | | LABORATORY | | + + + + + + | RBC | Slight (A) | (none) | [facility] | | | Microcytes | | | [facility] | | | | | | [facility] | | | | | | CENTER - | | | | | | LABORATORY | | + + + + + + | Anisocytosi | Slight (A) | (none) | [facility] | | | s | | | [facility] | | | | | | [facility] | | | | | | [facility] - | | | | | | LABORATORY | | + + + + + + + + | Specimen | + + | Blood | + + + + + | Narrative | Performed At | + + + | Agree with auto diff | [facility] | | | [facility] | | | [facility] | | | - LABORATORY | + + + + + + + + | Performing | Address | City/State/Zipcode | Phone Number | | Organization | | | | + + + + + | [facility] | [address] | [place] | [phone] | | [facility] | | [address] | | | - LABORATORY | | | | + + + + + Lactate Dehydrogenase (08/23/2017 9:01 AM PST) + +-------+ + + + | Component | Value | Ref Range | Performed | Pathologist | | | | | At | Signature | + +-------+ + + + | LDH TOTAL | 115 | 91 - 180 U/L | [facility] [...] + | [facility] | [address] | [place] | [phone] | | [facility] | | [address] | | | - LABORATORY | | | | + + + + + CBC with Differential (08/23/2017 9:01 AM PST) + + + + + + | Component | Value | Ref Range | Performed | Pathologist | | | | | At | Signature | + + + + + + | WBC | 8.0 | 4.0 - 11.0 K/uL | [facility] | | | | | | [facility] | [facility] | [facility] | | | | | | [facility] - | | | | | | LABORATORY | | + + + + + + | RBC | 4.08 | 3.70 - 5.20 | [facility] | [...] + + + + | MCV | 79.4 (L) | 83.0 - 101.0 fL | [facility] | | | | | | [facility] | | | | | | [facility] | | | | | | [facility] - | | | | | | LABORATORY | | + + + + + + | MCH | 25.6 (L) | 28.0 - 35.0 pg | [facility] | | | | | | [facility] | | | | | | [facility] | | | | | | [facility] - | | | | | | LABORATORY | | + + + + + + | MCHC | 32.3 | 32.0 - 36.0 | [facility] | | | | | g/dL | [facility] | | | | | | [facility] | | | | | | CENTER - | | | | | | LABORATORY | | + + + + + + | RDW-CV | 20.1 (H) | <15.0 % | [facility] | | | | | | [facility] | | | | | | [facility] | | | | | | CENTER - | | | | | | LABORATORY | | + + + + + + | Platelet | 518 (H) | 140 - 440 K/uL | [...] + + + + | % | 82.6 (H) | 45.0 - 82.0 % | [facility] | | | Neutrophils | | | [facility] | | | | | | [facility] | | | | | | CENTER - | | | | | | LABORATORY | | + + + + + + | % | 7.5 (L) | 20.0 - 45.0 % | [facility] | | | Lymphocytes | | | [facility] | | | | | | [facility]ICAL | | | | | | CENTER - | | | | | | LABORATORY | | + + + + + + | % Monocytes | 7.1 | 4.0 - 12.0 % | [facility] | | | | | | [facility] | | | | | | [facility] | | | | | | [facility]ENTER - | | | | | | LABORATORY | | + + + + + + | % | 1.9 | 0.0 - 5.0 % | [facility] | | | Eosinophils | | | [facility] | | | | | | [facility] | | | | | | CENTER - | | | | | | LABORATORY | | + + + + + + | % Basophils | 0.9 | 0.0 - 1.0 % | [facility] | | | | | | [facility] | | | | | | [facility]ICAL | | | | | | CENTER - | | | | | | LABORATORY | | + + + + + + | Absolute | 6.60 | 1.80 - 8.50 | [facility] | | | Neutrophils | | K/uL | [facility] | | | | | | [facility] | | | | | | CENTER - | | | | | | LABORATORY | | + + + + + + | Absolute | 0.60 | 0.60 - 3.20 | [facility] | [...] + | [facility] | [address] | [place] | [phone] | | [facility] | | [address] | | | - LABORATORY | | | | + + + + + Comprehensive Metabolic Panel (08/23/2017 9:01 AM PST) + + + + + + | Component | Value | Ref Range | Performed | Pathologist | | | | | At | Signature | + + + + + + | Na | 140 | 136 - 149 | [facility] | | | | | mmol/L | [facility] | | | | [...] + + + | Anion Gap | 8 | 3 - 16 mmol/L | [facility] | | | | | | [facility] | | | | | | [facility]ICAL | | | | | | CENTER - | | | | | | LABORATORY | | + + + + + + | Glucose | 118 (H) | 70 - 109 mg/dL | [facility] | | | | | | [facility] | | | | | | [facility] | | | | | | CENTER - | | | | | | LABORATORY | | + + + + + + | BUN | 16 | 7 - 18 mg/dL | [facility] | | | | | | [facility] | | | | | | [facility] | | | | | | CENTER - | | | | | | LABORATORY | | + + + + + + | Creatinine | 0.58 (L) | 0.60 - 1.30 | [facility] | | | | | mg/dL | [facility] | | | | | | [facility]ICAL | | | | | | CENTER - | | | | | | LABORATORY | | + + + + + + | eGFR if not | >60Comment: GLOMERULAR | >=60 | [facility] | | | | FILTRATION | mL/min/1.73m2 | [facility] | | | [facility] | RATE,ESTIMATED | | MEDICAL | | | | mL/min/1.16d8Ahsy than | | CENTER - | | [...] | | | | | mg/dL | [facility] | | | | | | [facility] | | | | | | CENTER - | | | | | | LABORATORY | | + + + + + + | Albumin | 2.6 (L) | 3.2 - 5.0 g/dL | [facility] | | | | | | [facility] | | | | [facility] | | | | | | CENTER - | | | | | | LABORATORY | | + + + + + + | Bilirubin | 0.2Comment: This is an | 0.1 - 1.5 [...] + + + + | Total | 6.2 | 6.0 - 7.8 g/dL | [facility] | | | Protein | | | [facility] | | | | | | MEDICAL | | | | | | CENTER - | | | | | | LABORATORY | | + + + + + + | AST | 24Comment: This is an | 10 - 42 [...] + + + + | ALT | 27Comment: This is an | 6 - 45 [...] + + + + | Alkaline | 99Comment: This is an | 40 - 110 [...] + + + + | Globulin | 3.6 | 2.1 - 3.8 g/dL | [facility] | | | | | | [facility] | | | | | | MED[facility] | | | | | | CENTER - | | | | | | LABORATORY | | + + + + + + | Albumin/Keyona | 0.7 (L) | 0.8 - 2.0 | [facility] | | | bulin Ratio | | | [facility] | | | | | | [facility] | | | | | | CENTER - | | | | | | LABORATORY | | + + + + + + | BUN/Creatin | 27.6 | | [facility] | | | ine [...] [address] | [place] | [phone] | | [facility] | | [address] | | | - LABORATORY | | [...] | | | + +--------+ +------+------+------+ | dexamethasone (DECADRON) tablet | Given | 08/23/19 | 4 mg | | | | 4 mg 4 mg, Oral, ONCE, Tue | | 18 11:11 | | | | | 08/23/17 at 1130, For 1 dose | | AM PST | | | | + +--------+ +------+------+------+ +---+---+ | | | +---+---+ + +-------+ + +---------+---+ | fluorouracil 4,350 mg in sodium | Given | 08/23/19 | 4,350 mg | 2 mL/hr | | | chloride 0.9% 7 mL CADD PUMP | | 18 1:44 | | | | | infusion 4,350 mg (rounded from | | PM PST | | | | | 4,344 mg = 2,400 mg/m2 | | | | | | | 1.81 m2 Treatment plan recorded | | | | | | | BSA), Intravenous, Administer | | | | | | | over 46 Hours, EVERY 46 HOURS, | | | | | | | First dose on Tue08/23/17 at | | | | | | | 1400, OUTPATIENT Chemotherapy: | | | | | | | Use appropriate handling | | | | | | | precautions. Protect from light. | | | | | | | Start Day 1, disconnect Day 3., | | | | | | + +-------+ + +---------+---+ +---+---+ | | | +---+---+ + +---------+ +--------+-------+---+ | leucovorin 360 mg in dextrose | New Bag | 08/23/19 | 360 mg | 134 | | | 5% 250 mL infusion 360 mg | | 18 11:43 | | mL/hr | | | (rounded from 362 mg = 200 mg/m2 | | AM PST | | | | | | | | | | | | 1.81 m2 Treatment plan recorded | | | | | | | BSA), Intravenous, Administer | | | | | | | over 2 Hours, ONCE, 08/23/17 | | | | | | | at 1200, For 1 dose, Administer | | | | | | | via y-site with oxaliplatin, | | | | | | + +---------+ +--------+-------+---+ +---+---+ | | | +---+---+ + +---------+ +--------+--------+---+ | oxaliplatin (ELOXATIN) 115 mg | New Bag | 08/23/19 | 115 mg | 136.5 | | | in dextrose 5% 250 mL infusion | | 18 11:43 | | mL/hr | | | 115 mg (rounded from 115.84 mg = | | AM PST | | | | | 64 mg/m2 | | | | | | | 1.81 m2 Treatment plan recorded | | | | | | | BSA), Intravenous, Administer | | | | | | | over 2 Hours, ONCE, 08/23/17 | | | | | | | at 1200, For 1 dose, | | | | | | | Chemotherapy: Use appropriate | | | | | | | handling precautions. Not | | | | | | | compatible with NS or any | | [...] +--------+--------+---+ +---+---+ | | | +---+---+ + +-------+ +---------+---+---+ | palonosetron (ALOXI) injection | Given | 08/23/19 | 0.25 mg | | | | 0.25 mg 0.25 mg, Intravenous, | | 18 11:13 | | | | | ONCE, 08/23/17 at 1130, For 1 | | AM PST | | | | | dose, Give IV push over 30 | | | | | | | seconds. Flush with saline before | | | | | | | and after giving., | | | | | | + +-------+ +---------+---+---+ +---+---+ | | | +---+---+ documented in this encounter"
--- OUTSIDE RECORDS SUMMARY | ~2019-06-11 | XMS | Encounter Summary ---
Demographics + + + | Address | [address] | | | [place] [address] | + + + | Home Phone [...] + + + | Author | [facility] | + + + | Organization | [facility] | + + + | Address | Unknown | + + + | Phone | Unavailable | + + + Support + + +---------+ + | Name | Relationship | Address | Phone | + + +---------+ + | Darrius Quintana | ECON | Unknown | | + + +---------+ + Care Team Providers + +------+ + | Care Nonprofit Fundraiser Name | Role | Phone | + [...] | | | | CT CHEST, | [place], [place] | Mailcode: | | | | | ABDOMEN AND | [address] | [address] [facility] | | | | | PELVIS W IV | Phone: | Hospital | | | | | CONTRAST [place] | [phone] | [place], [place] | | | | | CAT SCAN OF | Fax: | [address] | | | | | CHEST | [phone] | Phone: | | | | | CONTRAST [place] | | [phone] | | | | | CT | | Fax: | | | | | ABDOMEN&PELV | | [phone] | | | | | IS | [...] | | | | CT CHEST, | [place], [place] | Mailcode: | | | | | ABDOMEN AND | [address] | [address] [facility] | | | | | PELVIS W IV | Phone: | Hospital | | | | | CONTRAST [place] | [phone] | [place], [place] | | | | | CAT SCAN OF | Fax: | [address] | | | | | CHEST | [phone] | Phone: | | | | | CONTRAST SD | | [phone] | | | | | CT | | Fax: | | | | | ABDOMEN&PELV | | [phone] | | | | | IS | | | | | | | W/CONTRAST | | | +--------+--------+ + + + + Encounter Details +--------+ + + + + | Date | Type | Department | Care Team | Description | +--------+ + + + + | 03/02/ | Hospital | Diagnostic Imaging | Ailyn Wolff MD | | | 2017 | Encounter | Services at [facility] | [address] | | | | | [address] | [place], | | | | | [place] Mailcode: | [place] [address] | | | | | [address] [facility] | [phone] | | | | | [place], [place] | | | | | | [address] | | | | | | [phone] | | | +--------+ + + + [...] + + +---------+ + + | metroNIDAZOLE 500 | Take 1 tablet with | 3 | 0 | 03/02/20 | | | mg oral tablet | (8oz) glass of clear | tablet | | 17 | 7 | | | liquid at 1 pm, 2 | | | | | | | pm and 11 pm the day | | | | | | | before surgery. | | | | | + + + +---------+ + + | neomycin 500 mg | Take 2 tablets with | 6 | 0 | 03/02/20 | | | oral tablet | (8oz) glass of clear | tablet | | 17 | 7 | | | liquid at 1 pm, 2 | | | | | | | pm and 11 pm the day | | | | | | | before surgery. | | | | | + + [...] | | | | | [place], | | | | | | [place] [address] | | | | | | [phone] | | | | | | | | +--------+---------+ + + + documented as of this encounter Procedures + +--------+ + + + | Procedure Name | Priori | Date/Time | Associated Diagnosis | Comments | | | ty | | | | + +--------+ + + + | CT CHEST, ABDOMEN | Routin | 03/02/2017 | Rectal cancer | Results for this | | AND PELVIS W IV | e | 10:29 AM | (HCC) | procedure are in the | | CONTRAST | | PDT | | results section. [...] Outside CT January 03, 2017 and October 05 | | 2016.TECHNIQUE: CT of the chest, [...] in this encounter Administered Medications + +--------+ +--------+------+------+ | Medication Order | MAR | Action | Dose | Rate | Site | | | Action | Date | | | | + +--------+ +--------+------+------+ | iohexol (OMNIPAQUE) 350 mg | Given | 03/02/20 | 100 mL | | | | iodine/mL injection 100 mL 100 | | 17 10:31 | | | | | mL, intravenous, PROCEDURE ONCE, | | AM PDT | | | | | 1 dose, 03/02/17 at 1045 | | | | | | + +--------+ +--------+------+------+ +---+---+ | | | +---+---+ documented in this encounter"
--- OUTSIDE RECORDS SUMMARY | ~2019-06-11 | XMS | Encounter Summary ---
Demographics + + + | Address | [address] | | | [place] [address] | + + + | Home Phone | | + + + | Preferred Language | Unknown | + + + | Marital Status | | + + + | Pentecostalism Affiliation | Unknown | + + + | Race | Unknown | + + + | Ethnic Group | Unknown | + + + Author + + + | Author | [facility] | | | and [place] | + + + | Organization | [facility] | | | and [place] | + + + | Address | Unknown | + + + | Phone | Unavailable | + + + Support + + + + + | Name | Relationship | Address | Phone | + + + + + | Lamar Phillips | REZA | [place] [address] | | + + + + + Care Team Providers + +------+ + | Care Global Account Manager Name | Role | Phone | + +------+ + | Kristian Anderson DO | PCP | | + +------+ + Reason for Visit + + + | Reason | Comments | + + + | Nutrition Counseling | | + + + Encounter Details +--------+ + + + + | Date | Type | Department | Care Team | Description | +--------+ + + + + | 01/11/ | Hospital | [facility] | Janel, | | | 2017 | Encounter | MED CTR NUTRITION | Mike White MD [address] | | | | | SERVICES [address] [place] | | | | | [place], | [place] [address] | | | | | [place] [address] | [phone] | | | | | [phone] | | | | | | | Ludivina Flores, | | | | | | RDN | | +--------+ + + + + [...] + documented as of this encounter Progress Ludivina Alejandro RDN - 01/11/2017 1:37 PM PDTFormatting of this note might be different f rom the original. Medical Nutrition Note SUBJECTIVE: States she is having diarrhea but states it is from recent addition of antibio tics. She is keeping a food record on [employer]. She is maintaining her weight on 1700- 1800 calories. Discussed that with the addition of radiation she may need more calories. S he will add more calories if she should start to loose weight. Currently stable and up from 143# back on 10/15/2016. OBJECTIVE: Diet: 1700 calorie diet Wt Readings from Last 3 Encounters: 01/10/17 68.6 kg (151 lb 3.2 oz) 12/27/16 68.4 kg (150 lb 12.8 oz) 12/13/16 68.3 kg (150 lb 8 oz) Ht Readings from Last 1 Encounters: 10/18/16 1.626 m (5' 4") BMI 25.95 Currently able to meet needs. Having diarrhea but on antibiotics for an infection. She is also receiving radiation so diarrhea may also be caused by that. She is keeping a food rec ord and knows to stay away from high fiber foods (has an ostomy) and what foods can help wit h diarrhea. Will continue to follow. Time spent: 15 minutes Thank you for the referral, Ludivina Flores RDN 01/11/2017 13:37 documented in this encounter Plan of Treatment Not on filedocumented as of this encounter Visit Diagnoses Not on filedocumented in this encounter
--- OUTSIDE RECORDS SUMMARY | ~2019-06-11 | XMS | Encounter Summary ---
Demographics + + + | Address | [address] | | | [place] [address] | + + + | Home Phone | | + + + | Preferred Language | Unknown | + + + | Marital Status | | + + + | Samaritan Affiliation | Unknown | + + + | Race | Unknown | + + + | Ethnic Group | Unknown | + + + Author + + + | Author | [facility] | | | and [place] | + + + | Organization | [facility] | | | and [place] | + + + | Address | Unknown | + + + | Phone | Unavailable | + + + Support + + + + + | Name | Relationship | Address | Phone | + + + + + | Lamar Phillips | REZA | [place] [address] | | + + + + + Care Team Providers + +------+ + | Care Scoop Filler Name | Role | Phone | + +------+ + | Kristian Anderson DO | PCP | | + +------+ + Encounter Details +--------+ + + + + | Date | Type | Department | Care Team | Description | +--------+ + + + + | 12/16/ | Orders Only | [facility] | Joel Alfaro DO | | | 2016 | | MED CTR RADIATION | [address] | | | | | ONCOLOGY [address] | [place], [place] | | | | | [place], | [address] | | | | | [place] [address] | | | | | | [phone] | | | +--------+ + + + [...]
--- OUTSIDE RECORDS SUMMARY | ~2019-06-11 | XMS | Encounter Summary ---
Demographics + + + | Address | [address] | | | [place] [address] | + + + | Home Phone [...] + + + | Author | [facility] | + + + | Organization | [facility] | + + + | Address | Unknown | + + + | Phone | Unavailable | + + + Support + + +---------+ + | Name | Relationship | Address | Phone | + + +---------+ + | Darrius Quintana | ECON | Unknown | | + + +---------+ + Care Team Providers + +------+ + | Care Manager Office Name | Role | Phone | + +------+ + | Justin Kristian | PCP | | + +------+ + Encounter Details +--------+ + + + + | Date | Type | Department | Care Team | Description | +--------+ + + + + | 05/03/ | Document-Sc | UNKNOWN DEPARTMENT | Unknown . | | | 2013 | anned | [phone] | | | | | | [address] | | | | | | [place], [place] | | | | | | [address] | | | +--------+ + + + [...] | | | | | [facility] | | | | | | [place] [address] | | | | | | [phone] | | | | | | | | +--------+---------+ + + + documented as of this encounter Procedures + +--------+ + + + | Procedure Name | Priori | Date/Time | Associated Diagnosis | Comments | | | ty | | | | + +--------+ + + + | RADIOLOGY | | 05/03/2014 | | Results for this | | | | 12:00 AM | | procedure are in the | | | | PDT | | results section. | + +--------+ + + + documented in this encounter Results RADIOLOGY (05/03/2014 12:00 AM PDT) + + + | Narrative | Performed At | + + + | | | + + + documented in this encounter Visit Diagnoses Not on filedocumented in this encounter"
--- OUTSIDE RECORDS SUMMARY | ~2019-06-11 | XMS | Encounter Summary ---
Demographics + + + | Address | [address] | | | [place] [address] | + + + | Home Phone | | + + + | Preferred Language | Unknown | + + + | Marital Status | | + + + | Alevism Affiliation | Unknown | + + + | Race | Unknown | + + + | Ethnic Group | Unknown | + + + Author + + + | Author | [facility] | | | and [place] | + + + | Organization | [facility] | | | and [place] | + + + | Address | Unknown | + + + | Phone | Unavailable | + + + Support + + + + + | Name | Relationship | Address | Phone | + + + + + | Lamar Phillips | REZA | [place] [address] | | + + + + + Care Team Providers + +------+ + | Care Document Design Specialist Name | Role | Phone | [...] | +--------+ + + + + | 11/19/ | Telephone | [facility] | Janel, | Other | | 2017 | | MED [facility] | Mike White MD [address] | | | | | [facility] [address] | [address] [place] | | | | | [address] [place] | [place] [address] | | | | | [place] [address] | [phone] | | | | | [phone] | | | +--------+ + + + [...]
--- OUTSIDE RECORDS SUMMARY | ~2019-06-11 | XMS | Encounter Summary ---
Demographics + + + | Address | [address] | | | [place] [address] | + + + | Home Phone [...] + | Author | [facility] | | | and [place] | + + + | Organization | [facility] | | | and [place] | + + + | Address | Unknown | + + + | Phone | Unavailable | + + + Support + + + + + | Name | Relationship | Address | Phone | + + + + + | Lamar Phillips | REZA | [place] [address] | | + + + + + Care Team Providers + +------+ + | Care Tech Brazer Tester Name | Role | Phone | [...] neoplasm of | Mike C, | [place] | | | | | rectum (HCC) | MD [address] | [place], | | | | | Procedures | [address] | [place] [address] | | | | | [place] | [place], | Phone: | | | | | [place] | [place] [address] | [phone] | | | | | INJECTION, | Phone: | Fax: | | | | | [address] [place] | [phone] | [phone] | | | | | ONDANSETRON | Fax: | | | | | | HCL | [phone] | | | | | | INJECTION, 1 | | | | | | | MG FL | | | | | | | DEXAMETHASON | | | | | | | E SODIUM | | | | | | | PHOS, 1 MG | | | | | | | FL | | | | | | | FOSAPREPITAN | | | | | | | T INJECTION, | | | | | | | 1 MG FL | | | | | | | LORAZEPAM | | | | | | | INJECTION, 2 | | | | | | | MG FL | | | | | | | OXALIPLATIN, | | | | | | | .5 MG FL | | | | | | | LEUCOVORIN | | | | | | | CALCIUM | | | | | | | INJECTION, | | | | | | | 50 MG FL | | | | | | | DIPHENHYDRAM | | | | | | | INE HCL | | | | | | | INJECTIO, 50 | | | | | | | MG FL | | | | | | | METHYLPREDNI | | | | | | | SOLONE | | | | | | | INJECTION, | | | | | | | 125 MG FL | | | | | | | ALBUTEROL | | | | | | | COMP CON, 1 | | | | | | | MG FL | | | | | | | ALBUTEROL | | | | | | | NON-COMP | | | | | | | CON, 1 MG | | | | | | | FL | | | | | | | INJECTION, | | | | | | | FAMOTIDINE, | | | | | | | 20 MG FL | | | | | | | NORMAL | | | | | | | SALINE | | | | | | | SOLUTION | | | | | | | INFUS, 500 | | | | | | | ML FL | | | | | | | NORMAL | | | | | | | SALINE | | | | | | | SOLUTION | | | | | | | INFUS, 250 | | | | | | | ML FL | | | | | | | STERILE | | | | | | | WATER/SALINE | | | | | | | , 10 ML FL | | | | | | | CHEMOTHER, | | | | | | | IV PUSH,EA | | | | | | | ADD DRUG FL | | | | | | | CHEMOTHER, | | | | | | | IV INFUSION, | | | | | | | 1 HR FL | | | | | | | CHEMOTHER, | | | | | | | IV INFUSION, | | | | | | | EA HR FL | | | | | | | CHEMOTHER,NO | | | | | | | N-HORMONE | | | | | | | ANTI-NEOPL, | | | | | | | SUB-Q/IM FL | | | | | | | CHEMOTHER | | | | | | | HORMON | | | | | | | ANTINEOPL | | | | | | | SUB-Q/IM FL | | | | | | | NA FERRIC | | | | | | | GLUCONATE | | | | | | | COMPLEX, | | | | | | | 12.5 MG FL | | | | | | | IRON SUCROSE | | | | | | | INJECTION, | | | | | | | 1 MG | | | +--------+--------+ + + + + Encounter Details +--------+ + + + + | Date | Type | Department | Care Team | Description | +--------+ + + + + | 11/15/ | Hospital | [facility] | Janel, | Rectal cancer (HCC) | | 2017 | Encounter | MED [facility] CHE[facility] | Mike White MD [address] | | | | | INFUSION [address] | [address] [facility] | | | | | [place], | [place] [address] | | | | | [place] [address] | [phone] | | | | | [phone] | | | +--------+ + + + [...] + + + | Blood Pressure | 116/70 | 11/15/2016 1:45 PM | | | | | PDT | | + + + + + | Pulse | 89 | 11/15/2016 1:45 PM | | | | | PDT | | + + + + + | Temperature | 36.8 C (98.2 F) | 11/15/2016 1:45 PM | | | | | PDT | | + + + + + | Respiratory Rate | 18 | 11/15/2016 1:45 PM | | | | | PDT | | + + + + + | Oxygen Saturation | 96% | 11/15/2016 1:45 PM | | | | | PDT | | + + + + + | Inhaled Oxygen | - | - | | | Concentration | | | | + + + + + | Weight | - | - | | + + + + + | Height | - | - | | + + + + + | Body Mass Index | - | - | | + [...] encounter Progress Notes Jada Jauregui RN - 11/15/2016 2:37 PM [id number] patient started flushing and sweating infusion stopped and Dr. Islas notified will switch to iron sucrose for next treatmen t. Patient discharged in satisfactory condition. Discharged ambulatory. To home. Verified that patient has antinausea medications at home. Future appointments and After Visit Summary (AVS) provided. Jada Quijano RN - 11/15/2016 1:45 PM PDTPatient reports that she is nauseated and feeling flushed fe rrlicit infusion stopped, patient took her own po ativan and status report given to Dr. Jono sal he agreed with the ativan and would like to continue with the infusion. Returned ba ck to patient who is now diaphoretic will wait another 10 min and re assess.Electronically s igned by Jada Jauregui RN at 11/15/2016 1:57 PM PDTdocumented in this encounter Plan of Treatment Not on filedocumented as of this encounter Procedures + +--------+ + + + | Procedure Name | Priori | Date/Time | Associated Diagnosis | Comments | | | ty | | | | + +--------+ + + + | IRON AND TRANSFERRIN | STAT | 11/15/2016 | Rectal cancer | Results for this | | | | 8:36 AM | (HCC) | procedure are in the | | | | PDT | | results section. | + +--------+ + + + | CBC WITH | STAT | 11/15/2016 | Rectal cancer | Results for this | | DIFFERENTIAL | | 8:36 AM | (HCC) | procedure are in the | | | | PDT | | results section. | + +--------+ + + + | LACTATE | STAT | 11/15/2016 | Rectal cancer | Results for this | | DEHYDROGENASE | | 8:36 AM | (HCC) | procedure are in the | | | | PDT | | results section. | + +--------+ + + + | FERRITIN | STAT | 11/15/2016 | Rectal cancer | Results for this | | | | 8:36 AM | (HCC) | procedure are in the | | | | PDT | | results section. | + +--------+ + + + | COMPREHENSIVE | STAT | 11/15/2016 | Rectal cancer | Results for this | | METABOLIC PANEL | | 8:36 AM | (HCC) | procedure are in the | | | | PDT | | results section. | + +--------+ + + + documented in this encounter Results CBC with Differential (11/15/2016 8:36 AM PDT) + + + + + + | Component | Value | Ref Range | Performed | Pathologist | | | | | At | Signature | + + + + + + | WBC | 6.8 | 4.0 - 11.0 K/uL | [facility] | | | | | [facility] | | | [facility] | [facility] - | | | | | | LABORATORY | | + + + + + + | RBC | 4.11 | 3.70 - 5.20 | [facility] | | | | | M/uL | [facility] | | | | | | [facility] | | | | | | [facility] - | | | | | | LABORATORY | | + + + + + + | Hemoglobin | 10.0 (L) | 11.5 - 16.0 | [facility] [...] + + + + | MCV | 76.1 (L) | 83.0 - 101.0 fL | [facility] | | | | | [facility] | | | | | | [facility] | | | | | | [facility] - | | | | | | LABORATORY | | + + + + + + | MCH | 24.4 (L) | 28.0 - 35.0 pg | [facility] | | | | | | [facility] | | | | | | [facility] | | | | | | [facility] - | | | | | | LABORATORY | | + + + + + + | MCHC | 32.1 | 32.0 - 36.0 | [facility] | | | | | g/dL | [facility] | | | | | | [facility] | | | | | | C[facility] - | | | | | | LABORATORY | | + + + + + + | RDW-CV | 18.4 (H) | <15.0 % | [facility] | | | | | | [facility] | | | | | | [facility] | | | | | | [facility] - | | | | | | LABORATORY | | + + + + + + | Platelet | 440 | 140 - 440 K/uL | [facility] | | | Count | | | [facility] | | | | | | [facility] | | | | | | [facility] - | | | | | | LABORATORY | | + + + + + + | MPV | 6.0 | fL | [facility] | | | | | | [facility] | | | [facility] | | [facility] | | | | | | [facility] - | | | | | | LABORATORY | | + + + + + + | % | 66.2 | 45.0 - 82.0 % | [facility] | | | Neutrophils | | | [facility] | | | | | | [facility] | | | | | | [facility] - | | | | | | LABORATORY | | + + + + + + | % | 17.6 (L) | 20.0 - 45.0 % | [facility] | | | Lymphocytes | | | [facility] | | | | | | [facility] | | | | | | [facility] - | | | | | | LABORATORY | | + + + + + + | % Monocytes | 10.3 | 4.0 - 12.0 % | [facility] | | | | | | [facility] | | | | | | [facility] | | | | | | [facility] - | | | | | | LABORATORY | | + + + + + + | % | 4.9 | 0.0 - 5.0 % | [facility] | | | Eosinophils | | | [facility] | | | | | | [facility] | | | | | | [facility] - | | | | | | LABORATORY | | + + + + + + | % Basophils | 1.0 | 0.0 - 1.0 % | [facility] | | | | | | [facility] | | | | | | [facility] | | | | | | [facility] - | | | | | | LABORATORY | | + + + + + + | Absolute | 4.50 | 1.80 - 8.50 | [facility] | | | Neutrophils | | K/uL | [facility] | | | | | | [facility] | | | | | | [facility] - | | | | | | LABORATORY | | + + + + + + | Absolute | 1.20 | 0.60 - 3.20 | [facility] | | | Lymphocytes | | K/uL | [facility] | | | | | | [facility] | | | | | | [facility] - | | | | | | LABORATORY | | + + + + + + | Absolute | 0.70 | 0.00 - 1.00 | [facility] | | | Monocytes | | K/uL | [facility] | | | | | | [facility] | | | | | | CENTER - | | | | | | LABORATORY | | + + + + + + | Absolute | 0.30 | 0.00 - 0.40 | [facility] | | | Eosinophils | | K/uL | [facility] | | | | | | [facility] | | | | | | [facility]ENTER - | | | | | | LABORATORY | | + + + + + + | Absolute | 0.10 | 0.00 - 0.10 | [facility] | | | Basophils | | K/uL [...] [address] | [place] | [phone] | | [facility] | | [address] | | | - LABORATORY | | | | + + + + + Comprehensive Metabolic Panel (11/15/2016 8:36 AM PDT) + + + + + + | Component | Value | Ref Range | Performed | Pathologist | | | | | At | Signature | + + + + + + | Na | 142 | 136 - 149 | [facility] | | | | | mmol/L | [facility] | | | | | | [facility]ICAL | | | | | | CENTER - | | | | | | LABORATORY | | + + + + + + | K | 4.3 | 3.5 - 5.1 | [facility] | [...] + + + + | Glucose | 90 | 70 - 109 mg/dL | [facility] | | | | | | [facility] | | | | | | [facility]ICAL | | | | | | CENTER - | | | | | | LABORATORY | | + + + + + + | BUN | 12 | 7 - 18 mg/dL | [facility] | | | | | | [facility] | | | | | | [facility]ICAL | | | | | | CENTER - | | | | | | LABORATORY | | + + + + + + | Creatinine | 0.52 (L) | 0.60 - 1.30 | [facility] | [...] mL/min/1.73m2 | [facility] | | | [facility] | RATE,ESTIMATED | | MEDICAL | | | | mL/min/1.95j4Pspc than | | CENTER - | | [...] + + + + | Calcium | 9.0 | 8.3 - 10.5 | [facility] | [...] + + + + | Bilirubin | 0.4 | 0.1 - 1.5 mg/dL | [facility] | | | Total | | | [facility] | | [...] + + + + | ALT | 35 | 6 - 45 U/L | [facility] | | | | | | [facility] | | | | | | [facility]ICAL | | | | | | CENTER - | | | | | | LABORATORY | | + + + + + + | Alkaline | 149 (H) | 40 - 110 U/L | [facility] [...] + + + + | BUN/Creatin | 23.1 | | [facility] | | | ine [...] ST. | [address] | [place], [place] | [phone] | | [facility] | | [address] | | | - LABORATORY | | | | + + + + + Lactate Dehydrogenase (11/15/2016 8:36 AM PDT) + +-------+ + + + | Component | Value | Ref Range | Performed | Pathologist | | | | | At | Signature | + +-------+ + + + | LDH TOTAL | 146 | 91 - 180 U/L | [facility] | | | | | | [facility] [...] + + | [facility] | [address] | [place], [place] | [phone] | | [facility] | | [address] | | | - LABORATORY | | | | + + + + + Ferritin (11/15/2016 8:36 AM PDT) + +-------+ + + + | Component | Value | Ref Range | Performed | Pathologist | | | | | At | Signature | + +-------+ + + + | FERRITIN | 127 | 11 - 307 ng/mL | [facility] | | | | | [...] + | [facility] | [address] | [place] | [phone] | | [facility] | | [address] | | | - LABORATORY | | | | + + + + + Iron and Transferrin (11/15/2016 8:36 AM PDT) + + + + + + | Component | Value | Ref Range | Performed | Pathologist | | | | | At | Signature | + + + + + + | Iron | 28 (L) | 40 - 150 ug/dL | [facility] | | | | | | [facility] | | | | | [facility] | | | | | | CENTER - | | | | | | LABORATORY | | + + + + + + | TRANSFERRIN | 230.8 (L) | 240.0 - 480.0 | [facility] | | | | | mg/dL | [facility] | | | | | | MEDICAL | | | | | | CENTER - | | | | | | LABORATORY | | + + + + + + | TIBC | 323 | 235 - 425 ug/dL | [facility] | | | | | | [facility] | | | | | | [facility]ICAL | | | | | | CENTER - | | | | | | LABORATORY | | + + + + + + | % | 8.7 (L) | 20.0 - 55.0 % | [facility] | | | SATURATION | | | [facility] | | [...] [address] | [place] | [phone] | | [facility] | | [address] | | | - LABORATORY | | | | + + + + + documented in this encounter Visit Diagnoses + + | Diagnosis | + + | Rectal cancer (HCC) Malignant neoplasm of rectum | + + documented in this encounter Administered Medications + + + +--------+-------+------+ | Medication Order | MAR | Action | Dose | Rate | Site | | | Action | Date | | | | + + + +--------+-------+------+ | ferric gluconate (FERRLECIT) | Restarte | 11/16/19 | 125 mg | 110 | | | 125 mg in sodium chloride 0.9% | d | 17 2:15 | | mL/hr | | | 100 mL IVPB 125 mg, Intravenous, | | PM PDT | | | | | Administer over 1 Hours, ONCE, | | | | | | | 11/15/16 at 1315, For 1 dose, | | | | | | | Keep in refrigerator., | | | | | | + + + +--------+-------+------+ +---------+ +--------+-------+---+ | New Bag | 11/16/19 | 125 mg | 110 | | | | 17 1:14 | | mL/hr | | | | PM PDT | | | | +---------+ +--------+-------+---+ +---+---+ | | | +---+---+ + +-------+ + +---------+---+ | fluorouracil 4,050 mg in sodium | Given | 11/16/19 | 4,050 mg | 2 mL/hr | | | chloride 0.9% 11 mL CADD PUMP | | 17 2:31 | | | | | chemo infusion [...] | | | | | | on 11/15/16 at 1415, | | | | | | | [...] 150 mg in | New Bag | 11/16/19 | 150 mg | 450 | | | sodium chloride 0.9% 150 mL IVPB | | 17 10:45 | | mL/hr | | | 150 mg, Intravenous, Administer | | AM PDT | | | | | over 20 Minutes, ONCE, Mon | | | | | | | 11/15/16 at 1030, For 1 dose, Do | | | | | | | not shake bag., | | | | | | + +---------+ +--------+-------+---+ +---+---+ | | | +---+---+ + +---------+ +--------+--------+---+ | leucovorin 340 mg in dextrose | New Bag | 11/16/19 | 340 mg | 133.5 | | | 5% 250 mL infusion 340 mg | | 17 11:09 | | mL/hr | | | (rounded from 338 mg = 200 mg/m2 | | AM PDT | | | | | | | | | | | | 1.69 m2 Order-specific BSA), | | | | | | | Intravenous, Administer over 2 | | | | | | | Hours, ONCE, 11/15/16 at 1145, | | | | | | | For 1 dose, Administer via | | | | | | | y-site with oxaliplatin, | | | | | | + +---------+ +--------+--------+---+ +---+---+ | | | +---+---+ + +---------+ +---+-------+---+ | ondansetron (ZOFRAN) 8 mg, | New Bag | 11/16/19 | | 204 | | | dexamethasone (DECADRON) 4 mg in | | 17 10:24 | | mL/hr | | | sodium chloride 0.9% 50 mL IVPB | | AM PDT | | | | | Intravenous, Administer over 16 | | | | | | | Minutes, ONCE, 11/15/16 at | | | | | | | 1015, For 1 dose, Administer 30 | | | | | | | minutes prior to chemotherapy., | | | | | | + +---------+ +---+-------+---+ +---+---+ | | | +---+---+ + +---------+ +--------+-------+---+ | oxaliplatin (ELOXATIN) 135 mg | New Bag | 11/16/19 | 135 mg | 125 | | | in dextrose 5% 223 mL chemo | | 17 11:09 | | mL/hr | | | infusion 135 mg (rounded from | | AM PDT | | | | | 135.2 mg = 80 mg/m2 | | | | | | | 1.69 m2 Order-specific BSA), | | | | | | | Intravenous, Administer over 2 | | | | | | | Hours, ONCE, 11/15/16 at 1145, | | | | | | | [...]
--- OUTSIDE RECORDS SUMMARY | ~2019-06-11 | XMS | Encounter Summary ---
Demographics + + + | Address | [address] | | | [place] [address] | + + + | Home Phone [...] Team Providers + +------+ + | Care Airconditioning Drafting Officer Name | Role | Phone | + +------+ + | [place] Kristian | PCP | | + +------+ + Reason for Visit + + + | Reason | Comments | + + + | Refill Request | | + + + | Test Results | UA results | + + + Encounter Details +--------+ + + + + | Date | Type | Department | Care Team | Description | +--------+ + + + + | 07/19/ | MyChart | [facility] | Ailyn Wolff MD | Hormones | | 2017 | Encounter | Center at [facility] [address] | [address] | | | | | [address] | [place], | | | | | Mailcode: [place] | [place] [address] | | | | | for Health and | [phone] | | | | | [facility] [address] | | | | | | [place], [place] | | | | | | [address] | | | | | | [phone] | | | +--------+ + + + [...] | | | | | | [place] [address] | | | | | | [phone] | | | | | | | | +--------+---------+ + + + documented as of this encounter Visit Diagnoses Not on filedocumented in this encounter"
--- OUTSIDE RECORDS SUMMARY | ~2019-06-11 | XMS | Encounter Summary ---
Demographics + + + | Address | [address] | | | [place] [address] | + + + | Home Phone | | + + + | Preferred Language | Unknown | + + + | Marital Status | Single | + + + | Zoroastrian Affiliation | NON | + + + | Race | White | + + + | Ethnic Group | Not or | + + + Author + + + | Author | [facility] | + + + | Organization | [facility] | + + + | Address | Unknown | + + + | Phone | Unavailable | + + + Support + + +---------+ + | Name | Relationship | Address | Phone | + + +---------+ + | Darrius Quintana | ECON | Unknown | | + + +---------+ + Care Team Providers + +------+ + | Care Burglary Investigator Name | Role | Phone | [...] | 2018 | Visit | Center at [facility] [address] | [address] | (Primary Dx) | | | | [place] [address] [place] | [address] [place], | | | | | Mailcode: [place] | [place] [address] | | | | | for Health and | [phone] | | | | | [facility], [facility] | | | | | | [place], [place] | | | | | | [address] | | | | | | [phone] | | | +--------+---------+ + + + [...] Pressure | 150/90 | 07/27/2017 4:08 PM | | | | | PST | | + + + + + | Pulse | 88 | 07/27/2017 4:08 PM | | | | | PST | | + + + + + | Temperature | 36.6 C (97.9 F) | 07/27/2017 4:08 PM | | | | | PST | | + + + + + | Respiratory Rate | 16 | 07/27/2017 4:08 PM | | | | | PST | | + + + + + | Oxygen Saturation | 98% | 07/27/2017 4:08 PM | | | | | PST | | + + + + + | Inhaled Oxygen | - | - | | | Concentration | | | | + + + + + | Weight | 72.3 kg (159 lb 8 | 07/27/2017 4:08 PM | | | | oz) | PST | | + + + + + | Height | 160 cm (5' 3") | 07/27/2017 4:08 PM | | | | | PST | | + + + + + | Body Mass Index | 28.25 | 07/27/2017 4:08 PM | | | | | PST [...] Instructions Patient Instructions Ailyn Wolff MD - 07/27/2017 3:40 PM PSTPlan: I renewed her oxycodone. See me back in 3-4 weeks. Make an appointment with Dr. Islas. Consider another 2 cycles of chemo to finish 12 cycles. documented in this encounter Progress Notes Emily Gresham MA - 07/27/2017 3:40 PM PSTExamination chaperoned by Emily Levi CMA. u, Ailyn [place] MD - 07/27/2017 3:40 PM PSTCOLON AND RECTAL SURGERY Attending Clinic Note Established Patient Assessment: 56 y.o. female with htn, elevated lipids, heartburn, nephrolithiasis, and liche n sclerosus endoscopically obstructing mriT4 N0 M0 rectal mass (6 cm from verge) invading vagina rectal urgency and a lot of rectal bleeding on 07/19/16 went to [facility] ED CT abdomen/pelvis with IV contrast [...] cm from anal verge presented at the [facility] Multidisciplinary GI Oncology Conference on [...] to Mendoza pouch staple line presented at [facility] Multidisciplinary GI Oncology Conference on [...] MRI ([facility], 05/17/17) close to pelvic sidewall [facility] Multidisciplinary GI Oncology Conference (06/02/17) [...] with primary anast omosis, placement of a 19-Austrian Albert drain through the right lower quadrant [...] wit h primary anastomosis, placement of a 19-Austrian Albert drain through the right lower quadrant [...] Return/Re-evaluation patient, I spent 19 minutes of mpds-bd-eene time, of which m ore than half the time was spent in counseling. 14 minute document review do cumented in this encounter Plan of Treatment +--------+---------+ + + + | Date | Type | Specialty | Care Team | Description | +--------+---------+ + + + | 06/18/ | Office | Surgery | Ailyn Wolff MD | | | 2018 | Visit | | [address] | | | | | | [place], | | | | | | [place] [address] | | | | | | [phone] | | | | | | | | +--------+---------+ + + + documented as of this encounter Visit Diagnoses + + | Diagnosis | + + | 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
--- OUTSIDE RECORDS SUMMARY | ~2019-06-11 | XMS | Encounter Summary ---
Demographics + + + | Address | [address] | | | [place] [address] | + + + | Home Phone [...] Team Providers + +------+ + | Care Social Professionals Name | Role | Phone | + [...] | | | | [facility] | [place], [place] | | | | | [place] [address] | [address] | | | | | [place], [place] | | | | | | [address] | | | | | | [phone] | | | +--------+ + + + [...] | | | | | [address] [place], | | | | | | [place] [address] | | | | | | [phone] | | | | | | | | +--------+---------+ + + + documented as of this encounter Visit Diagnoses Not on filedocumented in this encounter"
--- OUTSIDE RECORDS SUMMARY | ~2019-06-11 | XMS | Encounter Summary ---
Demographics + + + | Address | [address] | | | [place] [address] | + + + | Home Phone | | + + + | Preferred Language | Unknown | + + + | Marital Status | Single | + + + | Sikhism Affiliation | NON | + + + [...] Team Providers + +------+ + | Care Neurological Surgery Teacher Name | Role | Phone | + +------+ + | Kristian Anderson DO | PCP | | + +------+ + Encounter Details +--------+ + + + + | Date | Type | Department | Care Team | Description | +--------+ + + + + | 01/03/ | MyChart | Dig[facility]ive Health | Ailyn Wolff MD | RE: Next appointment | | 2018 | Encounter | Center at [facility] [address] | [address] | | | | | [address] | [address] [address], | | | | | Mailcode: [place] | [place] [address] | | | | | for [facility] and | [phone] | | | | | [facility], [facility] [address] | | | | | | [place], [place] | | | | | | [id number] | | | | | | [phone] | | | +--------+ + + + [...] | | | | Amita [address], | | | | | | [place] [address] | | | | | | [phone] | | | | | | | | +--------+---------+ + + + documented as of this encounter Visit Diagnoses Not on filedocumented in this encounter"
--- OUTSIDE RECORDS SUMMARY | ~2019-06-11 | XMS | Encounter Summary ---
Demographics + + + | Address | [address] | | | [place] [address] | + + + | Home Phone [...] Team Providers + +------+ + | Care Reducing Salon Attendant Name | Role | Phone | [...] | 2019 | Visit | Center at [facility] [address] | [address] | (Primary Dx) | | | | [address] | [place], | | | | | Mailcode: [place] | [place] [address] | | | | | for Health and | [phone] | | | | | [facility] 2 | | | | | | [place], [place] | | | | | | [address] | | | | | | [phone] | | | +--------+---------+ + + + [...] 3 months. documented in this encounter Progress Pino Jha - 03/12/2019 9:20 AM PDTPatient presents for blood draw per Providers order Site: RIGHT A/C Time: 10:10 Patient tolerated well; ONE ATTEMPT eKia whitney MA - 03/12 9:20 AM PDTExamination chaperoned by Kia Garcia MA. Ailyn Mcfarland MD - 2018 9:20 AM PDTCOLON AND RECTAL SURGERY Attending Clinic Note Established Patient Assessment: 58 y.o. female with htn, elevated lipids, heartburn, nephrolithiasis, and lichen sclerosus endoscopically obstructing mriT4 N0 M0 rectal mass (6 cm from verge) invading vagina rectal urgency and a lot of rectal bleeding on 07/19/16 went to the [facility] ED CT abdomen/pelvis with IV contrast (07/20/16) [...] cm from anal verge presented at the [facility] Multidisciplinary GI Oncology Conference on 10/07/16 [...] to Mendoza pouch staple line presented at [facility] Multidisciplinary GI Oncology Conference on 03/10/17. 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 No abdominal pain now. Took a narcotic pain pill a w coquille ago. Good appetite. Tolerating her diet. Intermittent [...] and are negative. She comes for routine [place] [facility] er surveillance. Objective: BP 151/84 | Pulse [...] Return/Re-evaluation patient, I spent 10 minutes of kmca-me-rwkp time, of which m ore than half [...] | | | | | | [place], | | | | | | [place] [address] | | | | | | [phone] | | | | | | | [...] + + + + + | [facility] | [address] | [place] [address] | | | SERVICES, CORE | [address] | | | + + + + + documented in this encounter Visit Diagnoses + + | Diagnosis | + + | 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
--- OUTSIDE RECORDS SUMMARY | ~2019-06-11 | XMS | Encounter Summary ---
Demographics + + + | Address | [address] | | | [place] [address] | + + + | Home Phone [...] + + | Author | [facility] | + + + | Organization | [facility] | + + + | Address | Unknown | + + + | Phone | Unavailable | + + + Support + + +---------+ + | Name | Relationship | Address | Phone | + + +---------+ + | Darrius Quintana | ECON | Unknown | | + + +---------+ + Care Team Providers + +------+ + | Care Manager Building Name | Role | Phone | + [...] | +--------+ + + + + | 11/12/ | Abstract | Digestive Health | Ailyn Wolff MD | Medical Records | | 2017 | | Center at [facility] [address] | [address] | Review | | | | [address] | [place], | | | | | Mailcode: [place] | [place] [address] | | | | | for Health and | [phone] | | | | | [facility] [address] | | | | | | [place], [place] | | | | | | [address] | | | | | | [phone] | | | +--------+ + + + [...] | | | | | [place], | | | | | | [place] [address] | | | | | | [phone] | | | | | | | | +--------+---------+ + + + documented as of this encounter Visit Diagnoses Not on filedocumented in this encounter"
--- OUTSIDE RECORDS SUMMARY | ~2019-06-11 | XMS | Encounter Summary ---
Demographics + + + | Address | [address] | | | [place] [address] | + + + | Home Phone | | + + + | Preferred Language | Unknown | + + + | Marital Status | Single | + + + | Catholic Affiliation | NON | + + + [...] Providers + +------+ + | Care Manager Life Sciences Name | Role | Phone | + +------+ + | Kristian Anderson DO | PCP | | + +------+ + Reason for Visit + + + | Reason | Comments | + + + | Prescription | | + + + Encounter Details +--------+ + + + + | Date | Type | Department | Care Team | Description | +--------+ + + + + | 07/19/ | Telephone | Digestive Health | Ailyn Wolff MD | Prescription | | 2016 | | [place] [address] [address] | [address] | | | | | [address] | [place], | | | | | Mailcode: [place] | [place] [address] | | | | | for Health and | [phone] | | | | | [facility] 2 | | | | | | [place], [place] | | | | | | [address] | | | | | | [phone] | | | +--------+ + + + [...] | | 2019 | Visit | | [address] | | | | | | [place], | | | | | | [place] [address] | | | | | | [phone] | | | | | | | | +--------+---------+ + + + documented as of this encounter Visit Diagnoses Not on filedocumented in this encounter"
--- OUTSIDE RECORDS SUMMARY | ~2019-06-11 | XMS | Encounter Summary ---
Demographics + + + | Address | [address] | | | [place] [address] | + + + | Home Phone [...] Team Providers + +------+ + | Care Supervisor Taping Name | Role | Phone | + [...] | | 2018 | | Center at [facility] [address] | [address] | Review | | | | [address] | [place], | | | | | Mailcode: [place] | [place] [address] | | | | | for Health and | [phone] | | | | | [facility] 2 | | | | | | [place], [place] | | | | | | [address] | | | | | | [phone] | | | +--------+ + + + [...] | | | | | [place], | | | | | | [place] [address] | | | | | | [phone] | | | | | | | | +--------+---------+ + + + documented as of this encounter Visit Diagnoses Not on filedocumented in this encounter"
--- OUTSIDE RECORDS SUMMARY | ~2019-06-11 | XMS | Encounter Summary ---
Demographics + + + | Address | [address] | | | [place] [address] | + + + | Home Phone | | + + + | Preferred Language | Unknown | + + + | Marital Status | Single | + + + | Bahai Affiliation | NON | + + + | Race | White | + + + | Ethnic Group | Not or | + + + Author + + + | Author | [facility] | + + + | Organization | [facility] | + + + | Address | Unknown | + + + | Phone | Unavailable | + + + Support + + +---------+ + | Name | Relationship | Address | Phone | + + +---------+ + | Darrius Quintana | ECON | Unknown | | + + +---------+ + Care Team Providers + +------+ + | Care Community Cultural Development Officer Name | Role | Phone | [...] Wolff, | | | | | | Leyla Dept | [address] | | | | | | | [address] | | | | | | | [place] | | | | | | | [place], [place] | | | | | | | [address] | | | | | | | Phone: | | | | | | | [phone] | | | | | | | Fax: | | | | | | | [phone] | +--------+--------+ + + + + Encounter Details +--------+---------+ + + + | Date | Type | Department | Care Team | Description | +--------+---------+ + + + | 08/28/ | Office | Digestive Health | Ailyn Wolff MD | CA of rectum (HCC) | | 2019 | Visit | [place] at [facility] [address] | [address] | (Primary Dx) | | | | [address] | [place], | | | | | Mailcode: [place] | [place] [address] | | | | | for Health and | [phone] | | | | | Healing, Building [address] | | | | | | [place], [place] | | | | | | [address] | | | | | | [phone] | | | +--------+---------+ + + + [...] + + + | Blood Pressure | 148/91 | 08/28/2018 8:26 AM | | | | | PST | | + + + + + | Pulse | 82 | 08/28/2018 8:26 AM | | | | | PST | | + + + + + | Temperature | 36.7 C (98.1 F) | 08/28/2018 8:26 AM | | | | | PST | | + + + + + | Respiratory Rate | 14 | 08/28/2018 8:26 AM | | | | | PST | | + + + + + | Oxygen Saturation | - | - | | + + + + + | Inhaled Oxygen | - | - | | | Concentration | | | | + + + + + | Weight | 89.4 kg (197 lb) | 08/28/2018 8:26 AM | | | | | PST | | + + + + + | Height | 160 cm (5' 3") | 08/28/2018 8:26 AM | | | | | PST | | + + + + + | Body Mass Index | 34.9 | 08/28/2018 8:26 AM | | | | | PST [...] Instructions Patient Instructions Ailyn Wolff MD - 08/28/2018 8:40 AM PSTPlan: CEA today See me back in 3 months. documented in this encounter Progress Notes Leann Hawthorne RN - 08/28/2018 8:40 AM PSTExamination chaperoned by Leann Ku RN. Ailyn Sheehan MD - 019 8:40 AM PSTCOLON AND RECTAL SURGERY Attending Clinic Note Established Patient Assessment: 57 y.o. female with htn, elevated lipids, heartburn, nephrolithiasis, and lichen sclerosus endoscopically obstructing mriT4 N0 M0 rectal mass (6 cm from verge) invading vagina rectal urgency and a lot of rectal bleeding on 07/19/16 went to the [facility] ED CT abdomen/pelvis with IV [...] (10/05/16) no liver metastases rigid proctoscopy by nv (10/05/16) 6 cm from anal verge presented at the [facility] Multidisciplinary GI Oncology Conference on 10/07/16 [...] to Mendoza pouch staple line presented at [facility] Multidisciplinary GI Oncology Conference on 03/10/17. [...] MRI (OSH, 05/17/17) close to pelvic sidewall [facility] Multidisciplinary GI Oncology Conference (06/02/17) Recommendations [...] resection with Primary anastomosis, placement of a 19-Cymro Albert drain through the right lower quadrant [...] colonoscopy in 1 year CEA (08/28/18) 1.1 acceptable nutrition albumin (09/13/16) 3.5 quit smoking on 07/19/16 Plan: CEA today, normal See me back in 3 months. 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 Mike Islas) on 01/02/18 last seen by me on 05/29/18 colonoscopy via ostomy to cecum with good prep (07/27/18) CT chest/abdomen/pelvis with IV contrast (08/02/18) seen by Dr. Marty Thacker on 08/07/18 No current pain in LUQ parastomal hernia. Not taking any pain pills. Tolerating her t. Intermittent anorexia. No nausea or emesis. Gaining weight. She empties her colostomy bag 2-3 times a day. She changes her colostomy bag once a week. No problems keeping a sea l. Urinary incontinence; perineal rash. A little bit of perineal drainage. Intermittent per ineal sharp pain. Still wears pad during day and diaper at night for urinary incontinence. Will undergo a sleep test this month. Sinus problems/drainage. Got upper teeth removed. Takes magnesium for leg cramps. Depression meds changed; helped her a lot. All other syste ms reviewed and are negative. She comes for routine cancer surveillance. I updated her past medical history, past surgical history, allergies, medications, family h istory, and social history in [facility]. Objective: BP 148/91 | Pulse 82 | Temp (Src) 36.7 C (98.1 F) (Oral) | RR 14 | Ht 1.6 m (5' 3") | Wt 89.4 kg (197 lb) | BMI 34.9 kg/(m^2) General: well-developed, well-nourished female in NAD Mental Status: A&O x 4 Neurologic: moves all extremities well HEENT: anicteric sclera, EOMI, no cervical/supraclavicular/infraclavicular lymphadenopathy Abd: soft, midline incision without hernia, viable left-sided ostomy with parastomal hernia, mild left-sided tenderness, nondistended No inguinal lymphadenopathy Extremities: no calf tenderness, no clubbing/cyanosis/edema Perineum: healed, smooth, no signs of infection or mass With this Return/Re-evaluation patient, I spent 13 minutes of bfti-sz-mkut time, of which m ore than half the time was spent in counseling. 14 minute document review prior to my seeing patientElectronically signed by MD rabia Fuentes 09/12/2018 4:05 PM PSTdocumented in this encounter Plan of Treatment +--------+---------+ + + + | Date | Type | Specialty | Care Team | Description | +--------+---------+ + + + | 06/18/ | Office | Surgery | Ailyn Wolff MD | | | 2019 | Visit | | [address] | | | | | | [place], | | | | | | [place] [address] | | | | | | [phone] | | | | | | | | +--------+---------+ + + + documented as of this encounter Results CARCINOEMBRYONIC AG, SERUM (08/28/2018 8:50 AM PST) + +-------+ + + + | Component | Value | Ref Range | Performed | Pathologist | | | | | At | Signature | + +-------+ + + + | [facility]INO | 1.1 | <=2.5 ng/mL | [facility] | | [...] + + + + + | [facility] | [address] | [place] [address] | | | SERVICES, CORE | [address] | | | + + + + + documented in this encounter Visit Diagnoses + + | Diagnosis | + + | 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
--- OUTSIDE RECORDS SUMMARY | ~2019-06-11 | XMS | Encounter Summary ---
Demographics + + + | Address | [address] | | | [place] [address] | + + + | Home Phone | | + + + | Preferred Language | Unknown | + + + | Marital Status | | + + + | Restorationism Affiliation | Unknown | + + + | Race | Unknown | + + + | Ethnic Group | Unknown | + + + Author + + + | Author | [facility] | | | and [place] | + + + | Organization | [facility] | | | and [place] | + + + | Address | Unknown | + + + | Phone | Unavailable | + + + Support + + + + + | Name | Relationship | Address | Phone | + + + + + | Lamar Phillips | ECON | [place] [address] | | + + + + + Care Team Providers + +------+ + | Care Metal Fabrication Supervisor Name | Role | Phone | + +------+ + | Kristian Anderson DO | PCP | | + +------+ + Reason for Visit + + + | Reason | Comments | + + + | Follow-up | | + + + Evaluate & Treat (Routine) +--------+--------+ + + + + | Status | Reason | Specialty | Diagnoses / | Referred By | Referred To | | | | | Procedures | Contact | Contact | +--------+--------+ + + + + | Closed | | Medical | Diagnoses | [facility] | | | | | Oncology / | Rectal | Medical | Janel, | | | | Oncology | Cancer | Oncology | Mike White MD | | | | | Procedures | Clinic [address] | [address] | | | | | [address] | [address] | [address] [place] | | | | | | [place], | [place], [place] | | | | | | [place] | [address] Phone: | | | | | | [address] | [phone] | | | | | | Phone: | Fax: | | | | | | [phone] | [phone] | | | | | | Fax: | | | | | | | [phone] | | +--------+--------+ + + + + Encounter Details +--------+ + + + + | Date | Type | Department | Care Team | Description | +--------+ + + + + | 10/31/ | Hospital | [facility] | Janel, | Rectal cancer (HCC) | | 2018 | Encounter | [facility] | Mike White MD [address] | (Primary Dx) | | | | ONCOLOGY CLINIC [address] | [address] [facility] | | | | | [address] | [place] [address] | | | | | [place] [address] | [phone] | | | | | [phone] | | | +--------+ + + + [...] + + + | Blood Pressure | 150/91 | 10/31/2017 1:27 PM | "just got done | | | | PDT | drinking coffee" | + + + + + | Pulse | 84 | 10/31/2017 1:27 PM | | | | | PDT | | + + + + + | Temperature | 35.8 C (96.5 F) | 10/31/2017 1:27 PM | | | | | PDT | | + + + + + | Respiratory Rate | 18 | 10/31/2017 1:27 PM | | | | | PDT | | + + + + + | Oxygen Saturation | 98% | 10/31/2017 1:27 PM | | | | | PDT | | + + + + + | Inhaled Oxygen | - | - | | | Concentration | | | | + + + + + | Weight | 77.7 kg (171 lb 4.8 | 10/31/2017 1:15 PM | | | | oz) | PDT | | + + + + + | Height | - | - | | + + + + + | Body Mass Index | 29.4 | 10/18/2016 11:04 AM | | | [...] + + + +---------+ + + | escitalopram | Take 10 mg by mouth | | 0 | | | | (LEXAPRO) 10 mg | Daily. | | | | | | tablet | | | | | | + + + +---------+ + + | FERROUS GLUCONATE | Take 27 mg by mouth | | 0 | | | | PO | Daily. | | | | | + + [...] tablet by | 30 | 5 | 11/01/19 | | | (K-DUR) 20 mEq ER | mouth Daily for 30 | tablet | | 18 | 8 | | tablet | days. | | | | | + + + +---------+ + + documented as of this encounter Progress Notes Mike Islas MD - 10/31/2017 1:05 PM PDTFormatting of this note might be differe nt from the original. Hematology/Oncology Progress Note [facility] [place] Pt. Name/Age/: Paulette Byrnes 56 y.o. 1960 Med. Record Number: [id number] Date of admission: 10/31/2017 The patient's primary care provider is Kristian Anderson DO. Identifying Statement: Paulette Byrnes is a 56 y.o. female from [address] [place] [address] with Locally Advanced Rectal Cancer. The patient chart and medications were reviewed in detail and the patient was seen and exam ined. History of Present Illnesses, their Current Assessments and Plans: Problem List Rectal cancer Overview ACTIVE DIAGNOSIS: Locally Advanced Rectal Cancer, [id number], Stage IIA. 1Jame Barajas presented to the [facility] emergency room on July 20, 2016 [...] cm within the rectum. Biopsy specimen number [id number] evaluated by Dr. Felipe Nixon of [facility] was notable for a tubular adenoma without high-grade dysplasia or overt carcinoma. This proced ure also included a full colonoscopy through the ostomy were 2 additional polyps were remove d, a tubular adenoma at 35 cm and a hyperplastic polyp at [address] C/A/P at [facility] in [place], [place] demonstrated no evidence of metastatic disease. 4. On September 22, 2016 Dr. Thacker placed in internal jugular Port-A-Cath without complications. 5. MRI of pelvis performed on October 05, 2016 at [facility]: Rectal mass 7.7 cm x 6.2 cm x 9.6 cm in length located within 3 cm of the anal sphincter and 6.4 cm from the anal verge with radi ographic extension though multiple areas of the bowel wall. 6. CT abdomen/pelvis also at [facility] October 05, 2016; large almost completely circumferential r ectosigmoid mass better delineated on the corresponding MRI with adjacent probable abscess. No distant metastases identified. 7. On October 14, 2016 Paulette was evaluated by Dr. Ailyn Wolff and Dr. Shea Mcneill of the [facility] where her case was presented to their tumor board. Clinical exa m is notable for an overt rectal carcinoma invading into the vagina. 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 Concerns raised by the [facility] Tumor Board were that the prior [...] as well as mutation analysis." Pathological Specimen #[id number] ([facility]). Tubulovillous adenoma with high grade dysplasia and [...] including multiple exophytic components. 13. December 31, 2016-February 17, 2017; combined modality chemoradiation therapy with CIVI 5FU at 2 25 mg/m/day given concurrently with 4500 cGy of external beam radiation. 14. Multidisciplinary Care Team Conference at [facility] March 10, 2017; "Given borderline resec tability, give 6 more cycles of FOLFOX, restage with MRI, followed by posterior exenteration (abdominoperineal resection, hysterectomy, posterior vaginectomy, and VRAM). Low anterior m ay not be able to resect all of this. She may need intraop radiation therapy." 15. Cycle # 7 FOLFOX March 21, 2017. 16. Cycle #8 FOLFOX April 04, 2017. 17. Cycle #9 FOLFOX April 18, 2017. 18. Cycle #10 FOLFOX May 02, 2017. 19. Chemotherapy interrupted on May 16, 2017 due to worsening pelvic abscess. 20. June 30, [address] Ailyn Wolff at the [facility]: 06/30/17: Exploratory laparoto my. Extensive lysis of adhesions. Excision of left lower quadrant fistula tract. Total mesor ectal excision, intersphincteric abdominoperineal resection, en bloc resection of left ovary and left fallopian tube and posterior vaginal wall. Placement of a 19-Kyrgyz Albert drain th rough the right lower quadrant wall in the presacral space (subsequently removed). Cystoscop y and bilateral ureteral stent placement by Urology. Primary repair of posterior vaginal def ect. Small bowel resection with primary anastomosis. Pathological analysis demonstrated resi dual invasive adenocarcinoma with the inked radial resection margin focally positive for car cinoma and eleven lymph nodes negative for carcinoma. 21. Gynecological exam on August 12, 2017; [facility], [place], [place] ; positive for perianal fistula between anus and vagina. 22. Clinical exam on August 22, [address] Ailyn Wolff at [facility] who could not confirm the prese nce of perianal fistula. 23. Cycle # 11 FOLFOX on August 23, 2017. 24. Cycle #12 FOLFOX on September 05, 2017. Current Assessment & Plan Paulette Byrnes returned to clinic on 10/31/2017 alone for follow up, two months after h er last dose of FOLFOX chemotherapy for Stage IIA rectal cancer. Interval history is notable for the fact that Paulette underwent advanced imaging at the [facility] in [place], [place] last month. Chief complaint is recurrence of muscle cramps after running out of her potassium supplemen t. Clinical exam is notable for 5 kilogram weight gain. Laboratory exam is notable for resolution of myelosuppression. Reports from CT chest/abdomen/pelvis on September 26, 2017 and MRI pelvis September 27, 2017 from [facility] were reviewed, there is no evidence of recurrent or metastatic disease. Th e radiographic impression of a pelvic abscess is not confirmed clinically and likely represe nts post-operative change. Assessment; Stage IIA rectal cancer. Plan; Continue to monitor. Return in 2 months for clinical and laboratory follow up and to have port-a-cath accessed and flushed. In the interval she will see Dr. Ailyn Wolff at the [facility]. Review of Systems: Constitutional: Reports energy level is low, patient reports that she has been struggling w ith depression and has not wanted to do anything, PCP added escitalopram in addition to Well butrin. Reports nausea since starting new medication on 10/28/17. Reports evening sweats, cont inues, unchanged. Weight gain of 12 pounds since last visit on 09/05/17. Denies high fevers, shaking chills, anorexia, vomiting, weight loss. Appetite without changes. Ear, Nose, Mouth, Throat: Reports pressure in left ear, onset 2 weeks ago. Denies odynophag ia, dysphagia. Cardiovascular: Reports shortness of breath with exertion continues, unchanged. Reports occ asional heart palpitations, unchanged. Denies shortness of breath, chest pain, or orthopnea. Respiratory: Denies cough, hemoptysis, or sputum production. Gastrointestinal: Reports intermittent constipation and diarrhea, continues, unchanged. Den ies abdominal pain, melena, or bright red blood per rectum. Genitourinary: Denies hematuria or dysuria. Musculoskeletal: Denies joint pain or tenderness. Neurologic: Reports headaches have improved since last visit, only intermittently. Reports numbness in toes is still present, but has improved. Denies visual changes. Endocrine: Reports left hand has had some swelling due to an injury with a recent fall abou t 2 weeks ago, wearing a brace today, will be seeing an grant specialist. Denies heat/c old intolerance. Hematologic: Denies spontaneous bruising or bleeding. Integumentary: Denies rash, wounds or other skin concerns. Pain: Denies pain. Note: Here for follow up and labs. My chart: Active Scheduled Medications: Current Outpatient Prescriptions Medication Sig Dispense Refill acetaminophen (TYLENOL) 500 mg tablet Take 1,000 mg by mouth every 6 hours as needed fo r Pain. Take prior to oxycodone as needed for pain. ALPRAZolam (XANAX) 0.5 mg tablet Bring with to scheduled MRI, take one tablet 30 minute s before MRI, may repeat as needed. 2 tablet 0 ascorbic acid (VITAMIN C) 500 mg tablet Take 1,000 mg by mouth Daily. buPROPion (WELLBUTRIN SR) 150 mg 12 hr tablet Take 300 mg by mouth Daily. clobetasol (TEMOVATE) 0.05% ointment Apply topically Once a week. escitalopram (LEXAPRO) 10 mg tablet Take 10 mg by mouth Daily. FERROUS GLUCONATE PO Take 27 mg by mouth Daily. ibuprofen (ADVIL, MOTRIN) 200 mg tablet Take 200 mg by mouth every 6 hours as needed fo r Pain. LORazepam (ATIVAN) 1 mg tablet Take 1 tablet by mouth every 6 hours as needed for Anxie ty (Nausea/vomiting/restlessness). 60 tablet 2 Multiple Vitamins-Minerals (MULTIVITAMIN ADULT PO) Take by mouth. nystatin (MYCOSTATIN) powder Apply topically as needed. ondansetron (ZOFRAN ODT) 8 mg disintegrating tablet Take 8 mg by mouth every 8 hours as needed for Nausea. oxyCODONE (ROXICODONE) 5 mg tablet Take 5 mg by mouth every 6 hours as needed for Pain. potassium chloride (K-DUR) 20 mEq ER tablet Take 1 tablet by mouth Daily for 30 days. 3 0 tablet 5 No current facility-administered medications for this encounter. Facility-Administered Medications Ordered in Other Encounters Medication Dose Route Frequency Provider Last Rate Last Dose ethyl chloride spray Topical PRN Mike Islas MD heparin 100 units/mL flush injection 500 Units 5 mL Intercatheter PRN Mike coley MD heparin 100 units/mL flush injection 500 Units 5 mL Intercatheter PRN Mike coley MD 500 Units at 10/31/17 1303 Allergies: Allergy: Allergies Allergen Reactions Propoxyphene Na [...] Diagnosis Rectal cancer Lichen sclerosus Objectives: Temp: 35.8 C (96.5 F) BP: (!) 150/91 ("just got done drinking coffee") Pulse: 84 Resp: 18 SpO2: 98 % on Min/Max Temp past 24 hours:Temp Av.8 C (96.5 F) Min: 35.8 C (96.5 F) Max: 3 5.8 C (96.5 F) No intake or output data in the 24 hours ending 10/31/17 2104 Wt. Admission: Weight: 77.7 kg (171 lb 4.8 oz) Wt. Current: Weight: 77.7 kg (171 lb 4.8 oz) Wt Readings from Last 3 Encounters: 10/31/17 77.7 kg (171 lb 4.8 oz) 09/05/17 72.4 kg (159 lb 9.8 oz) 08/23/17 71.8 kg (158 lb 4.6 oz) Physical Exam: General: The patient is alert and oriented. No acute distress. Now on disability. Eyes: Conjunctiva clear. Sclera anicteric. ENMT: Oropharynx fee of lesions, mucous membranes moist. Cardiovascular: Regular rate and rhythm, no rubs, gallops, or murmurs. Lungs: Clear to auscultation and percussion. Chest: Right anterior chest port-a-cath was accessed with a Grant needle and a brisk blood return was noted. It was successfully used for transfusion today. Abdomen: Soft, Tender in the left lower quadrant, no hepatospenomegaly. No palpable meenu s. Bowel sounds present. Ostomy intact in the midline with well perfused stoma. Hong Prat t drain in the left lower quadrant has been removed and the exit site is healed without surr ounding tenderness or erythema. Extremities: Nontender, no erythema, no edema. Wearing a brace on the left wrist after rec ent fall. Skin: No rashes, bruising, or petechiae. Lymph: [...] credit the [employer], Mike Richards M.D., Group Chair Diagnostic studies: Available data and images were reviewed personally. See reports. Significant results and findings are addressed here or in the Assessment and Plan. Results for PAULETTE BYRNES ( ) as of 10/31/2017 20:57 Ref. Range 10/31/2017 13:08 WBC Latest Ref Range: 4.0 - 11.0 K/uL 5.3 RBC COUNT Latest Ref Range: 3.70 - 5.20 M/uL 4.07 Hgb Latest Ref Range: 11.5 - 16.0 g/dL 11.0 (L) Hct, Final Latest Ref Range: 34.0 - 47.0 % 33.7 (L) MCV Latest Ref Range: 83.0 - 101.0 fL 82.8 (L) MCH Latest Ref Range: 28.0 - 35.0 pg 27.0 (L) MCHC Latest Ref Range: 32.0 - 36.0 g/dL 32.6 RDW-CV Latest Ref Range: <15.0 % 19.2 (H) Platelet Count Latest Ref Range: 140 - 440 K/uL 365 MPV Latest Units: fL 6.4 Absolute Neutrophils Latest Ref Range: 1.80 - 8.50 K/uL 3.80 Absolute Lymphocytes Latest Ref Range: 0.60 - 3.20 K/uL 0.70 Absolute Monocytes Latest Ref Range: 0.00 - 1.00 K/uL 0.50 Absolute Eosinophils Latest Ref Range: 0.00 - 0.40 K/uL 0.20 Absolute Basophils Latest Ref Range: 0.00 - 0.10 K/uL 0.10 % Neutrophils Latest Ref Range: 45.0 - 82.0 % 72.9 % Lymphocytes Latest Ref Range: 20.0 - 45.0 % 13.7 (L) % Monocytes Latest Ref Range: 4.0 - 12.0 % 8.9 % Eosinophils Latest Ref Range: 0.0 - 5.0 % 3.5 % Basophils Latest Ref Range: 0.0 - 1.0 % 1.0 NA Latest Ref Range: 136 - 149 mmol/L 139 K Latest Ref Range: 3.5 - 5.1 mmol/L 4.1 Chloride Latest Ref Range: 98 - 109 mmol/L 104 Carbon dioxide Latest Ref Range: 24 - 31 mmol/L 28 ANION GAP Latest Ref Range: 3 - 16 mmol/L 7 GLUCOSE Latest Ref Range: 70 - 109 mg/dL 82 BUN Latest Ref Range: 7 - 18 mg/dL 12 Creatinine Latest Ref Range: 0.60 - 1.30 mg/dL 0.56 (L) BUN/CREA Unknown 21.4 ALBUMIN Latest Ref Range: 3.2 - 5.0 g/dL 3.2 Albumin/Globulin ratio Latest Ref Range: 0.8 - 2.0 1.1 Total protein Latest Ref Range: 6.0 - 7.8 g/dL 6.2 EGFR IF NOT Latest Ref Range: >=60 mL/min/1.73m2 >60 Calcium Latest Ref Range: 8.3 - 10.5 mg/dL 9.1 ALK PHOS Latest Ref Range: 40 - 110 U/L 116 (H) ALT (SGPT) (REF) Latest Ref Range: 6 - 45 U/L 31 AST (SGOT) (REF) Latest Ref Range: 10 - 42 U/L 31 LDH TOTAL Latest Ref Range: 91 - 180 U/L 148 BILIRUBIN TOTAL Latest Ref Range: 0.1 - 1.5 mg/dL 0.4 GLOBULIN Latest Ref Range: 2.1 - 3.8 g/dL 3.0 CEA Latest Ref Range: 0.0 - 10.0 ng/mL 1.3 Pharmacovigilance: Results for PAULETTE BYRNES ( ) as of 08/15/2017 17:38 Ref. Range 08/15/2017 09:26 ABO Unknown O Rh Type Unknown Positive Antibody Screen Unknown Negative Palliative Care: Patient's Medications New Prescriptions No medications on file Modified Medications Modified Medication Previous Medication POTASSIUM CHLORIDE (K-DUR) 20 MEQ ER TABLET potassium chloride (K-DUR) 20 mEq ER tablet Take 1 tablet by mouth Daily for 30 days. Take 20 mEq by mouth Daily. Discontinued Medications CRANBERRY EXTRACT PO Take 4,200 mg by mouth Daily. DEXAMETHASONE (DECADRON) 4 MG TABLET Take 4 mg by mouth 2 times daily (with breakfast & dinner). Takes day 2-3 after chemotherapy treatment. PHENYLEPHRINE HCL PO Take 1 tablet by mouth as needed. 1 tablet every 4 hours as needed for cough. Procedure: Portions of this chart may have been created with [employer] voice recognition software. Occasi onal wrong-word or sound-alike substitutions may have occurred due to the inherent leung itations of voice recognition software. Please read the chart carefully and recognize, using context, where these substitutions have occurred. documented in t his encounter Plan of Treatment Not on filedocumented as of this encounter Results Sedimentation Rate (01/02/2018 2:41 PM PDT) + +--------+ + + + | Component | Value | Ref Range | Performed | Pathologist | | | | | At | Signature | + +--------+ + + + | ESR | 49 (H) | <30 mm/hr | [facility] | [facility] | [facility] - | | | | | | [facility]ORATORY | | + +--------+ + + + + + | Specimen | + + | Blood | + + + + + + + | Performing | Address | City/State/Zipcode | Phone Number | | Organization | | | | + + + + + | [facility] | [address] | [place] | [phone] | | [facility] | | [address] | | | - LABORATORY | | | | + + + + + CEA (01/02/2018 2:41 PM PDT) + +-------+ + + + | Component | Value | Ref Range | Performed | Pathologist | | | | | At | Signature | + +-------+ + + + | CEA | 2.1 | 0.0 - 10.0 | [facility] | | | | | ng/mL | [facility] | | | | [...] [address] | [place] | [phone] | | [facility] | | [address] | | | - LABORATORY | | | | + + + + + Lactate Dehydrogenase (01/02/2018 2:41 PM PDT) + +-------+ + + + | Component | Value | Ref Range | Performed | Pathologist | | | | | At | Signature | + +-------+ + + + | LDH TOTAL | 156 | 91 - 180 U/L | [facility] [...] + | [facility] | [address] | [place] | [phone] | | [facility] | | [address] | | | - LABORATORY | | | | + + + + + Comprehensive Metabolic Panel (01/02/2018 2:41 PM PDT) + + + + + + [...] + + + | Anion Gap | 10 | 3 - 16 mmol/L | [facility] | | [facility] | [facility] | | | | | [facility] - | | | | | | LABORATORY | | + + + + + + | Glucose | 107 | 70 - 109 mg/dL | [facility] | | | | | [facility] | | | | | | [facility] | | | | | | [facility] - | | | | | | LABORATORY | | + + + + + + | BUN | 14 | 7 - 18 mg/dL | [facility] | | | | | | [facility] | | | | | | [facility] | | | | | | [facility] - | | | | | | LABORATORY | | + + + + + + | Creatinine | 0.67 | 0.60 - 1.30 | [facility] | | | | | mg/dL | [facility] | | | | | | [facility] | | | | | | CENTER - | | | | | | LABORATORY | | + + + + + + | eGFR if not | >60Comment: GLOMERULAR | >=60 | [facility] | | | | FILTRATION | mL/min/1.73m2 | [facility] | | | [place] | RATE,ESTIMATED | | MEDICAL | | | | mL/min/1.30j4Bnaa than | | CENTER - | | [...] + + + + | Albumin | 3.4 | 3.2 - 5.0 g/dL | [facility] [...] + + + + | AST | 31 | 10 - 42 U/L | [facility] | | | | | | [facility] | | | | | | [facility] | | | | | | [facility] - | | | | | | LABORATORY | | + + + + + + | ALT | 28 | 6 - 45 U/L | [facility] | | | | | | [facility] | | | | | | [facility] | | | | | | [facility] - | | | | | | LABORATORY | | + + + + + + | Alkaline | 125 (H) | 40 - 110 U/L | [facility] | | | Phosphatase | | | [facility] | | | | | | [facility] | | | | | | C[facility] - | | | | | | LABORATORY | | + + + + + + | Globulin | 2.7 | 2.1 - 3.8 g/dL | [facility] | | | | | | [facility] | | | | | | [facility] | | | | | | [facility] - | | | | | | LABORATORY | | + + + + + + | Albumin/Keyona | 1.3 | 0.8 - 2.0 | [facility] | | | bulin Ratio | | | [facility] | | | | | | [facility] | | | | | | CENTER - | | | | | | LABORATORY | | + + + + + + | BUN/Creatin | 20.9 | | [facility] | | | ine [...] [address] | [place] | [phone] | | [facility] | | [address] | | | - LABORATORY | | | | + + + + + CBC w/ Auto Differential (01/02/2018 2:41 PM PDT) + + + + + + | Component | Value | Ref Range | Performed | Pathologist | | | | | At | Signature | + + + + + + | WBC | 6.7 | 4.0 - 11.0 K/uL | [facility] | | | | | [facility] | | | | | | [facility] | | | | | | [facility] - | | | | | | LABORATORY | | + + + + + + | RBC | 4.50 | 3.70 - 5.20 | [facility] | | | | | M/uL | [facility] | | | | | | [facility] | | | | | | [facility] - | | | | | | LABORATORY | | + + + + + + | Hemoglobin | 12.3 | 11.5 - 16.0 | [facility] | | | | | g/dL | [facility] | | | | | | [facility] | | | | | | [facility] - | | | | | | LABORATORY | | + + + + + + | Hematocrit | 36.8 | 34.0 - 47.0 % | [facility] | | | | | | [facility] | | | | | | [facility] | | | | | | [facility] - | | | | | | LABORATORY | | + + + + + + | MCV | 81.7 (L) | 83.0 - 101.0 fL | [facility] | | | | | | [facility] | | | | | | [facility] | | | | | | [facility] - | | | | | | LABORATORY | | + + + + + + | MCH | 27.4 (L) | 28.0 - 35.0 pg | [facility] | | | | | | [facility] | | | | | | [facility] | | | | | | [facility] - | | | | | | LABORATORY | | + + + + + + | MCHC | 33.5 | 32.0 - 36.0 | [facility] | | | | | g/dL | [facility] | | | | | | [facility] | | | | | | [facility] - | | | | | | LABORATORY | | + + + + + + | RDW-CV | 16.0 (H) | <15.0 % | [facility] | | | | | [facility] | | | | | | [facility] | | | | | | [facility] - | | | | | | LABORATORY | | + + + + + + | Platelet | 376 | 140 - 440 K/uL | [facility] [...] + + + + | % | 72.8 | 45.0 - 82.0 % | [facility] | | | Neutrophils | | | [facility] | | | | | | [facility] | | | | | | [facility] - | | | | | | LABORATORY | | + + + + + + | % | 12.8 (L) | 20.0 - 45.0 % | [facility] | | | Lymphocytes | | | [facility] | | | | | | [facility] | | | | | | [facility] - | | | | | | LABORATORY | | + + + + + + | % Monocytes | 9.7 | 4.0 - 12.0 % | [facility] | | | | | | [facility] | | | | | | [facility] | | | | | | [facility] - | | | | | | LABORATORY | | + + + + + + | % | 3.9 | 0.0 - 5.0 % | [facility] | | | Eosinophils | | | [facility] | | | | | | [facility] | | | | | | [facility] - | | | | | | LABORATORY | | + + + + + + | % Basophils | 0.8 | 0.0 - 1.0 % | [facility] | | | | | | [facility] | | | | | | [facility] | | | | | | [facility] - | | | | | | LABORATORY | | + + + + + + | Absolute | 4.80 | 1.80 - 8.50 | [facility] | | | Neutrophils | | K/uL | [facility] | | | | | | [facility] | | | | | | CENTER - | | | | | | LABORATORY | | + + + + + + | Absolute | 0.90 | 0.60 - 3.20 | [facility] | [...] | 0.10 | 0.00 - 0.10 | [facility] | | | Basophils | | K/uL | [facility] | | | | | | MEDICAL [...] [address] | [place] | [phone] | | [facility] | | [address] | | | - LABORATORY | | | | + + + + + documented in this encounter Visit Diagnoses + + | Diagnosis | + + | Rectal cancer (HCC) - Primary Malignant neoplasm of rectum | + + documented in this encounter
--- OUTSIDE RECORDS SUMMARY | ~2019-06-11 | XMS | Encounter Summary ---
Demographics + + + | Address | [address] | | | [place] [address] | + + + | Home Phone [...] Team Providers + +------+ + | Care Internet Sales Director Name | Role | Phone | [...] | | | | [facility] | [place], [place] | | | | | [place] [address] | [address] | | | | | [place], [place] | | | | | | [address] | | | | | | [phone] | | | +--------+ + + + [...] | | 2019 | Visit | | [address] | | | | | | [place], | | | | | | [place] [address] | | | | | | [phone] | | | | | | | | +--------+---------+ + + + documented as of this encounter Visit Diagnoses Not on filedocumented in this encounter"
--- OUTSIDE RECORDS SUMMARY | ~2019-06-11 | XMS | Encounter Summary ---
Demographics + + + | Address | [address] | | | [place] [address] | + + + | Home Phone | | + + + | Preferred Language | Unknown | + + + | Marital Status | Single | + + + | Latter Day Affiliation | NON | + + + [...] Team Providers + +------+ + | Care Fish Hatchery Specialist Name | Role | Phone | [...] | | | | [facility] | [address] | | | | | | | [address] | | | | | | | [place] | | | | | | | [place], [place] | | | | | | | [address] | | | | | | | Phone: | | | | | | | [phone] | | | | | | | Fax: | | | | | | | [phone] | +--------+--------+ + + + + Encounter Details +--------+---------+ + + + | Date | Type | Department | Care Team | Description | +--------+---------+ + + + | 02/20/ | Office | Digestive Health | Ailyn Wolff MD | CA of rectum (HCC) | | 2018 | Visit | [place] [facility] [address] | [address] | (Primary Dx) | | | | [address] | [place], | | | | | Mailcode: [place] | [place] [address] | | | | | for Health and | [phone] | | | | | [facility] [address] | | | | | | [place], [place] | | | | | | [address] | | | | | | [phone] | | | +--------+---------+ + + + [...] + + + | Blood Pressure | 144/76 | 02/20/2018 1:57 PM | | | | | PDT | | + + + + + | Pulse | 87 | 02/20/2018 1:57 PM | | | | | PDT | | + + + + + | Temperature | 36.6 C (97.9 F) | 02/20/2018 1:57 PM | | | | | PDT | | + + + + + | Respiratory Rate | 18 | 02/20/2018 1:57 PM | | | | | PDT | | + + + + + | Oxygen Saturation | - | - | | + + + + + | Inhaled Oxygen | - | - | | | Concentration | | | | + + + + + | Weight | 85.7 kg (189 lb) | 02/20/2018 1:57 PM | | | | | PDT | | + + + + + | Height | 160 cm (5' 3") | 02/20/2018 1:57 PM | | | | | PDT | | + + + + + | Body Mass Index | 33.48 | 02/20/2018 1:57 PM | | | | | PDT [...] Instructions Patient Instructions Ailyn Wolff MD - 02/20/2018 1:40 PM PDTPlan: CEA today. See me back in 3 months. Due for colonoscopy in 06/2018 documented in this encounter Progress Notes Emily Gresham MA - 02/20/2018 1:40 PM PDTExamination chaperoned by Emily Levi CMA. Ailyn Mcfarland MD - 02/20/2018 1:40 PM PDTCOLON AND RECTAL SURGERY Attending Clinic Note Established Patient Assessment: 57 y.o. female with htn, elevated lipids, heartburn, nephrolithiasis, and lichen sclerosus endoscopically obstructing mriT4 N0 M0 rectal mass (6 cm from verge) invading vagina rectal urgency and a lot of rectal bleeding on 07/19/16 went to the [facility] ED CT abdomen/pelvis with IV contrast [...] (10/05/16) no liver metastases rigid proctoscopy by vt (10/05/16) 6 cm from anal verge presented at the [facility] Multidisciplinary GI Oncology Conference on 10/07/16 [...] to Mendoza pouch staple line presented at [facility] Multidisciplinary GI Oncology Conference on 03/10/17. [...] MRI ([facility], 05/17/17) close to pelvic sidewall [facility] Multidisciplinary GI Oncology Conference (06/02/17) Recommendations [...] resection with primary anastomosis, placement of a 19-Macedonian Albert drain through the right lower quadrant [...] 1.3 Port removed 2017 CEA (02/20/18) 1.3 acceptable nutrition albumin (09/13/16) 3.5 quit smoking on 07/19/16 Plan: CEA today, normal See me back in 3 months. 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 No perineal drainage. Intermittent (once every 1-2 week) needle-like perineal pain. No parastomal pain. No fevers or chills. Appetite good. Gaining weight. Tolerating her diet. No nausea or emesis. She emptied her colost marie bag 3 times a day. She changes her colostomy bag every 2-3 days. Still wears pad during day and diaper at night for urinary incontinence. Wears pad during the day and diaper at night. Back pain from "pinched nerve". Improving numbness right upper thigh. Improving memory. All other systems reviewed and are negative. She comes for routine cancer surveillance. Objective: BP 144/76 | Pulse 87 | Temp (Src) 36.6 C (97.9 F) (Oral) | RR 18 | Ht 1.6 m (5' 3") | Wt 85.7 kg (189 lb) | BMI 33.48 kg/(m^2) General: well-developed, well-nourished female in NAD Mental Status: A&O x 4 Neurologic: moves all extremities well HEENT: anicteric sclera, EOMI, no cervical/supraclavicular/infraclavicular lymphadenopathy Abd: soft, midline incision without hernia, viable left-sided ostomy with parastomal hernia, nontender, nondistended No inguinal lymphadenopathy Extremities: no calf tenderness, no clubbing/cyanosis/edema Perineum: healed except for 2 mm opening, no signs of infection or mass With this Return/Re-evaluation patient, I spent 12 minutes of [id number] time, of which m ore than half the time was spent in counseling. 13 minute document review do cumented in this encounter Plan of Treatment +--------+---------+ + + + | Date | Type | Specialty | Care Team | Description | +--------+---------+ + + + | 06/18/ | Office | Surgery | Ailyn Wolff MD | | | 2019 | Visit | | [address] | | | | | | [place], | | | | | | [place] [address] | | | | | | [phone] | | | | | | | | +--------+---------+ + + + documented as of this encounter Results [facility]CINOEMBRYON[facility], SERUM (02/20/2018 2:33 PM PDT) + +-------+ + + + [...] | + + + + + | [facility] | [address] | [place] [address] | | | SERVICES, CORE | [address] | | | + + + + + documented in this encounter Visit Diagnoses + + | Diagnosis | + + | 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
--- OUTSIDE RECORDS SUMMARY | ~2019-06-11 | XMS | Encounter Summary ---
Demographics + + + | Address | [address] | | | [place] [address] | + + + | Home Phone | | + + + | Preferred Language | Unknown | + + + | Marital Status | Single | + + + | Mandaen Affiliation | NON | + + + [...] Team Providers + +------+ + | Care Escape Wheel Tooth Cutter Name | Role | Phone | + +------+ + | Kristian Anderson DO | PCP | | + +------+ + Encounter Details +--------+ + + + + | Date | Type | Department | Care Team | Description | +--------+ + + + + | 09/22/ | Telephone | Digestive Health | Ailyn Wolff MD | | | 2017 | | [place] [facility] [address] | [address] | | | | | [address] | [place], | | | | | Mailcode: [place] | [place] [address] | | | | | for Health and | [phone] | | | | | [place] [address] | | | | | | [place], [place] | | | | | | [address] | | | | | | [phone] | | | +--------+ + + + [...] 2018 | Visit | | [address] | | | | | | [place], | | | | | | [place] [address] | | | | | | [phone] | | | | | | | [...] | PATHOLOGY | | | | Institution: [facility] | | | | | | [facility], | | | | | | [place], [place] | | | | | | [id number] Accession | | | | | | Number: [id number] | | | | | | Collection Date: | | | | | | 09/02/2016Sublabeled | | | | | | H&E A to D | | | | | | 4 | | | | | | Final Pathologic | | | | | | Diagnosis:Multiple | | | | | | specimens A to D | | | | | | ([id number]; 09/02/16):Low | | | | | | [...] | + + + + + | [facility] | [address] | [place] [address] | | | PATHOLOGY | [address] | | | + + + + + documented in this encounter Visit Diagnoses + + | Diagnosis | + + | Rectal cancer (HCC) - Primary Malignant neoplasm of rectum | + + documented in this encounter"
--- OUTSIDE RECORDS SUMMARY | ~2019-06-11 | XMS | Encounter Summary ---
Demographics + + + | Address | [address] | | | [place] [address] | + + + | Home Phone | | + + + | Preferred Language | Unknown | + + + | Marital Status | Single | + + + | Hoahaoism Affiliation | NON | + + + | Race | White | + + + | Ethnic Group | Not or | + + + Author + + + | Author | [facility] | + + + | Organization | [facility] | + + + | Address | Unknown | + + + | Phone | Unavailable | + + + Support + + +---------+ + | Name | Relationship | Address | Phone | + + +---------+ + | Darrius Quintana | ECON | Unknown | | + + +---------+ + Care Team Providers + +------+ + | Care Medical Record Clerk Name | Role | Phone | [...] | 2019 | Encounter | [facility] at [facility] [address] | [address] | | | | | [address] | [place], | | | | | Mailcode: [place] | [place] [address] | | | | | for Health and | [phone] | | | | | [facility] [address] | | | | | | [place], [place] | | | | | | [address] | | | | | | [phone] | | | +--------+ + + + [...] | | | | | [place], | | | | | | [place] [address] | | | | | | [phone] | | | | | | | | +--------+---------+ + + + documented as of this encounter Visit Diagnoses Not on filedocumented in this encounter"
--- OUTSIDE RECORDS SUMMARY | ~2019-06-11 | XMS | Encounter Summary ---
Demographics + + + | Address | [address] | | | [place] [address] | + + + | Home Phone | | + + + | Preferred Language | Unknown | + + + | Marital Status | | + + + | Yarsani Affiliation | Unknown | + + + | Race | Unknown | + + + | Ethnic Group | Unknown | + + + Author + + + | Author | [facility] | | | and [place] | + + + | Organization | [facility] | | | and [place] | + + + | Address | Unknown | + + + | Phone | Unavailable | + + + Support + + + + + | Name | Relationship | Address | Phone | + + + + + | Lamar Phillips | REZA | [place] [address] | | + + + + + Care Team Providers + +------+ + | Care Land Surveying Manager Name | Role | Phone | [...] + + | 01/11/ | Hospital | [facility] | [place], | | | 2017 | Encounter | [facility] NUTRITION | Mike White MD [address] | | | | [address] [place] | | | | | [place], | [place] [address] | | | | | [place] [address] | [phone] | | | | | [phone] | | | | | | | [...] She is keeping a food record on [employer]. She is maintaining her weight on 1700- [...]
--- OUTSIDE RECORDS SUMMARY | ~2019-06-11 | XMS | Encounter Summary ---
Demographics + + + | Address | [address] | | | [place] [address] | + + + | Home Phone | | + + + | Preferred Language | Unknown | + + + | Marital Status | | + + + | Christianity Affiliation | Unknown | + + + | Race | Unknown | + + + | Ethnic Group | Unknown | + + + Author + + + | Author | [facility] | | | and [place] | + + + | Organization | [facility] | | | and [place] | + + + | Address | Unknown | + + + | Phone | Unavailable | + + + Support + + + + + | Name | Relationship | Address | Phone | + + + + + | Lamar Phillips | REZA | [place] [address] | | + + + + + Care Team Providers + +------+ + | Care Condenser Operator Name | Role | Phone | [...] | +--------+ + + + + | 11/01/ | Hospital | [facility] | [facility], | Rectal cancer (HCC) | | 2017 | Encounter | [facility] | Sirena White MD [address] | (Primary Dx); Lichen | | | | [facility] [address] [place] | sclerosus | | | | [address] [place] | [place] [address] | | | | | [place] [address] | [phone] | | | | | [phone] | | | +--------+ + + + [...] + + + | Blood Pressure | 123/77 | 11/01/2016 8:15 AM | | | | | PDT | | + + + + + | Pulse | 75 | 11/01/2016 8:15 AM | | | | | PDT | | + + + + + | Temperature | 36.4 C (97.6 F) | 11/01/2016 8:15 AM | | | | | PDT | | + + + + + | Respiratory Rate | 16 | 11/01/2016 8:15 AM | | | | | PDT | | + + + + + | Oxygen Saturation | 99% | 11/01/2016 8:15 AM | | | | | PDT | | + + + + + | Inhaled Oxygen | - | - | | | Concentration | | | | + + + + + | Weight | 62 kg (136 lb 11 oz) | 11/01/2016 8:15 AM | | | | | PDT | | + + + + + | Height | - | - | | + + + + + | Body Mass Index | 23.46 | 10/18/2016 11:04 AM | | | [...] encounter Progress Notes Sirena Helton MD - 11/01/2016 7:58 AM PDTFormatting of this note might be differe nt from the original. Hematology/Oncology Progress Note [facility] LETY Cheema Pt. Name/Age/: Paulette Byrnes 55 y.o. 1960 Med. Record Number: [id number] Date of admission: 11/01/2016 The patient's primary care provider is Kristian Anderson DO. Identifying Statement: Paulette Byrnes is a 55 y.o. female from [address] [place] [address] with Locally Advanced Rectal Cancer. The patient chart and medications were reviewed in detail and the patient was seen and exam ined. History of Present Illnesses, their Current Assessments and Plans: Problems That Were Updated This Visit Lichen sclerosus Overview ACTIVE DIAGNOSIS: Lichen Sclerosis of the Vulva. 1. Presentation with Dyspareunia in February 2010. 2. PAP and vulvar biopsy March 19, 2010 (Rene). Pathological specimens; PAP #[id number] "n egative for intraepithelial lesions or malignancy." Biopsy #[id number] "freatures consistent with lichen sclerosis." 3. Treatment with clobetasol 0.05% with improvement. 4. Consultation by Dr. Rossana Knowles, June 2016-Lichen sclerosis exacerbated by urinary and fecal incontinence. Rectal cancer Overview ACTIVE DIAGNOSIS: Locally Advanced Rectal Cancer. 1. Paulette presented to the [facility] emergency room on July 20, 2016 with [...] cm within the rectum. Biopsy specimen number [id number] evaluated by Dr. Felipe Nixon of [facility] was notable for a tubular adenoma without high-grade dysplasia or overt carcinoma. This proced ure also included a full colonoscopy through the ostomy were 2 additional polyps were remove d, a tubular adenoma at 35 cm and a hyperplastic polyp at [address] C/A/P at [facility] in [place], [place] demonstrated no evidence of metastatic disease. 4. On September 22, 2016 Dr. Thacker placed in internal jugular Port-A-Cath without complications. 5. On October 14, 2016 Paulette was evaluated by Dr. Ailyn Wolff and Dr. Shea Mcneill of the [facility] where her case was presented to their tumor board. Clinical exa m is notable for an overt rectal carcinoma invading into the vagina. 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 Concerns raised by the [facility] Tumor Board were that the prior placement of the drain through the tumor had increased the patient's risk of carcinomatosis and disse mination of her tumor, and recommended that she begin her therapy with 6 cycles of FOLFOX ch emotherapy before crossing over to combined modality chemoradiation therapy to be followed b y a pelvic exenteration. 6. Cycle #1 FOLFOX, October 18, 2016. 7. Exam under anesthesia, multiple large biopsies (Kirstie) October 27, 2016; "a digital rectal exam was performed and I could easily palpate the tumor with my index finger. We used our br onchoscopy biopsy forceps to take multiple large pieces of tissue for pathological review as well as mutation analysis." Pathological Specimen in process. Current Assessment & Plan Paulette Byrnes returned to clinic on 11/01/2016 with a close friend for follow-up of l ocally advanced rectal cancer, and Cycle#2 FOLFOX chemotherapy. Interval history is notable for the fact that Paulette's tumor was rebiopsied by Dr. Thacker on A pril 2016. Paulette has two days of rectal bleeding after the procedure. Review of systems is notable for significant decrease in rectal pain. She reports pica for popsicles. Interval history is also notable for the fact that Paulette was diagnosed with strep throat by Dr. Anderson and received treatment with amoxicillin and prednisone. Clinic exam is notable for the fact that the drainage from her ZAIN drain has become less opa que and more serosanguinous. Laboratory exam is notable for a clinically significant increase in her hemoglobin. Iron st ores are low likely reflecting chronic GI blood loss from her tumor. Assessment;Locally advanced rectal cancer, GI blood loss anemia-both improved. Plan; Proceed with cycle#2 of a planned 6 cycles of FOLFOX chemotherapy to be followed by c hemoradiation therapy with continuous intravenous infusion of 5FU, to be followed by definit mery oncoplastic surgery by Dr. Ailyn Wolff of [facility]. Insurance authorization for Ferrlecit to be c oadministered with chemotherapy infusions. Extended 25 minute office encounter with Paulette reviewing the treatment plan and potential to xicities and explaining the rationale for Ferrlecit to treat iron deficiency. Review of Systems: Constitutional: Reports energy level is fair, states she was seen by PCP and was treated fo r strep throat- 2 days left of antibiotics. Reports nausea only one time- took medication th at produced relief. Reports night sweats intermittently. Reports weight loss of 4-6 lbs due to strep throat, is now eating well again. Denies high fevers, shaking chills, anorexia, vom iting. Ear, Nose, Mouth, Throat: Reports left ear still has pressure, not ringing, since having st rep throat. Denies odynophagia or dysphagia. Cardiovascular: Denies shortness of breath, dyspnea on exertion, chest pain, palpitations o r orthopnea. Respiratory: Denies cough, hemoptysis, or sputum production. Gastrointestinal: Reports hernia pain in abdomen, reports has been passing much more gas pe r colostomy. Reports pink drainage per rectum since having biopsy done- Dr. Schuster states th is will be happening "for awhile". Denies constipation, diarrhea, melena. Genitourinary: Denies hematuria or dysuria. Musculoskeletal: Reports tailbone has been less sore, has only had to take 2 pain pills sin ce being her last. Reports intermittent cramping in lower extremities. Neurologic: Reports numbness/tingling in bilateral hands and left toes. Denies headache or visual changes. Endocrine: Denies peripheral edema or heat/cold intolerance. Hematologic: Denies spontaneous bruising or bleeding. Integumentary: Reports scalp is very itchy intermittently. Denies rash or wounds. Pain: Reports her tailbone and lower abdomen hurt intermittently, no pain today. States th at pain was as high as 6-8/10 in hernia and tailbone area. Note: Here for follow up, labs and 4 hour treatment. Erika- sister present today. My chart: pending Review of systems as above otherwise negative Scheduled Medications: Current Outpatient Prescriptions Medication Sig Dispense Refill amoxicillin (AMOXIL) 500 MG capsule Take 500 mg by mouth 3 times daily. WILL FINISH ON 11/02/2016. ascorbic acid (VITAMIN C) 500 mg tablet [...] (MYCOSTATIN) powder Apply topically as needed. ondansetron (ZOFRAN) 8 MG tablet Take 1 tablet by mouth 2 times daily. On Days 2 and 3 of each cycle. Starting Day 4, take 8 mg every 8 hours as needed for nausea/vomiting. 30 tab let 5 potassium chloride (K-DUR) 20 mEq ER tablet Take 1 tablet by mouth Daily. 30 tablet 5 No current facility-administered medications for this encounter. Facility-Administered Medications Ordered in Other Encounters Medication Dose Route Frequency Provider Last Rate Last Dose fluorouracil 4,050 mg in sodium chloride 0.9% 11 mL CADD PUMP chemo infusion 2,400 mg/ m2 (Order-Specific) Intravenous Q46H Sirena Helton MD 4,050 mg at 11/01/16 1224 Allergies: Allergy: Allergies Allergen Reactions Propoxyphene Past [...] Diagnosis Rectal cancer Lichen sclerosus Objectives: Temp: 36.4 C (97.6 F) BP: 123/77 mmHg Pulse: 75 Resp: 16 SpO2: 99 % on Min/Max Temp past 24 hours:Temp Av.4 C (97.6 F) Min: 36.4 C (97.6 F) Max: 3 6.4 C (97.6 F) No intake or output data in the 24 hours ending 11/01/16 1716 Wt. Admission: Weight: 62 kg (136 lb 11 oz) Wt. Current: Weight: 62 kg (136 lb 11 oz) Wt Readings from Last 3 Encounters: 11/01/16 62 kg (136 lb 11 oz) 10/18/16 64.91 kg (143 lb 1.6 oz) [...] in the right low er quadrant draining scant serosanguinous material. Extremities: Nontender, no erythema, no edema. [...] Am. J. Clin. Oncol.: John Paul Baer., Jumana RMichael., Fransisca Baltazar., Jason Roque, Caitie Travis., Leonila [...] for PAULETTE BYRNES ( ) as of 11/01/2016 17:17 Ref. Range 11/01/2016 07:34 WBC Latest Ref Range: 4.0-11.0 K/uL 9.9 RBC: Latest Ref Range: 3.70-5.20 M/uL 4.22 Hgb Latest Ref Range: 11.5-16.0 g/dL 9.9 (L) Hct, Final Latest Ref Range: 34.0-47.0 % 32.4 (L) MCV Latest Ref Range: 83.0-101.0 fL 76.6 (L) MCH Latest Ref Range: 28.0-35.0 pg 23.4 (L) MCHC Latest Ref Range: 32.0-36.0 g/dL 30.6 (L) RDW-CV Latest Ref Range: <15.0 % 17.9 (H) Platelet Count Latest Ref Range: 140-440 K/uL 526 (H) MPV Latest Units: fL 6.4 Absolute Neutrophils Latest Ref Range: 1.80-8.50 K/uL 7.30 Absolute Lymphocytes Latest Ref Range: 0.60-3.20 K/uL 1.20 Absolute Monocytes Latest Ref Range: 0.00-1.00 K/uL 1.00 Absolute Eosinophils Latest Ref Range: 0.00-0.40 K/uL 0.30 Absolute Basophils Latest Ref Range: 0.00-0.10 K/uL 0.10 % Neutrophils Latest Ref Range: 45.0-82.0 % 74.0 % Lymphocytes Latest Ref Range: 20.0-45.0 % 11.8 (L) % Monocytes Latest Ref Range: 4.0-12.0 % 10.4 % Eosinophils Latest Ref Range: 0.0-5.0 % 3.1 % Basophils Latest Ref Range: 0.0-1.0 % 0.7 NA Latest Ref Range: 136-149 mmol/L 141 K Latest Ref Range: 3.5-5.1 mmol/L 4.3 Chloride Latest Ref Range: 98-109 mmol/L 106 Carbon dioxide Latest Ref Range: 24-31 mmol/L 25 ANION GAP Latest Ref Range: 3-16 mmol/L 10 GLUCOSE Latest Ref Range: 70-109 mg/dL 97 BUN Latest Ref Range: 7-18 mg/dL 11 Creatinine Latest Ref Range: 0.60-1.30 mg/dL 0.51 (L) BUN/CREA Unknown 21.6 ALBUMIN Latest Ref Range: 3.2-5.0 g/dL 2.7 (L) Albumin/Globulin ratio Latest Ref Range: 0.8-2.0 0.8 Total protein Latest Ref Range: 6.0-7.8 g/dL 6.3 EGFR IF NOT Latest Ref Range: >=60 mL/min/1.73m2 >60 Calcium Latest Ref Range: 8.3-10.5 mg/dL 8.8 ALK PHOS Latest Ref Range: 40-110 U/L 130 (H) ALT (SGPT) (REF) Latest Ref Range: 6-45 U/L 29 AST (SGOT) (REF) Latest Ref Range: 10-42 U/L 21 LDH TOTAL Latest Ref Range: 91-180 U/L 124 BILIRUBIN TOTAL Latest Ref Range: 0.1-1.5 mg/dL 0.3 GLOBULIN Latest Ref Range: 2.1-3.8 g/dL 3.6 FERRITIN Latest Ref Range: 11-307 ng/mL 119 IRON Latest Ref Range: 40-150 ug/dL 18 (L) TIBC Latest Ref Range: 235-425 ug/dL 321 % SATURATION Latest Ref Range: 20.0-55.0 % 5.6 (L) Transferrin Latest Ref Range: 240.0-480.0 mg/dL 229.4 (L) Pharmacovigilance: Palliative Care: Patient's Medications New Prescriptions No medications on file Modified Medications No medications on file Discontinued Medications No medications on file Procedure: Day 1, Cycle 2 (14-day cycle) Completed; Released on 11/01/2016; Originally planned for 10/23 Labs Iron and Transferrin STAT, ONE TIME, 11/01/16 at 0735, For 1 occurrence OrderHistory Ferritin STAT, ONE TIME, Tue11/01/16 at 0735, For 1 occurrence OrderHistory Lactate Dehydrogenase STAT, ONE TIME, 11/01/16 at 0735, For 1 occurrence OrderHistory Comprehensive Metabolic Panel STAT, ONE TIME, Tue11/01/16 at 0735, For 1 occurrence OrderHistory CBC with Differential STAT, ONE TIME, Tue11/01/16 at 0735, For 1 occurrence OrderHistory Nursing Orders OK to proceed with chemotherapy (Not Released) 11/01/16 - SEE additional order for Ferrlecit q 14 days with chemo. INFORMED CONSENT: The nature and character of the proposed treatment with Cycle#2 FOLFOX wi th ferrlecit and the anticipated results of the proposed treatment with Cycle#2 FOLFOX with ferrlecit;recognized alternative forms of treatment, including non-treatment; the risks bene fits, and side effects of proposed treatment, alternative treatments and non-treatment were discussed with the patient who consents to proceed with treatment with Cycle#2 FOLFOX with f errlecit. The treating provider has examined the patient and reviewed the diagnostic data, i ncluding laboratory data, and deems that it is safe and appropriate to proceed with treatmen t with Cycle#2 FOLFOX with ferrlecit.SIRENA HELTON MD. OrderHistory Plans for discharge (Not Released) Pump off in micheal QFU CBC,CMP, LDH, CEA * PORT DRAW AND 4 HOUR RX IN 14 DAYS QFU CBC,CMP, LDH, CEA * PORT DRAW AND 4 HOUR RX IN 28 DAYS OrderHistory Pre-Medications ondansetron (ZOFRAN) 8 mg, dexamethasone (DECADRON) 4 mg in sodium chloride 0.9% 50 m L IVPB Intravenous, for 16 Minutes, ONCE, Tue11/01/16 at 0930, For 1 dose Administer 30 minutes prior to chemotherapy. OrderHistory fosaprepitant (EMEND) 150 mg in sodium chloride 0.9% 150 mL IVPB 150 mg, Intravenous, for 20 Minutes, ONCE, Tue11/01/16 at 0945, For 1 dose Do not shake bag. OrderHistory PRN Medications LORazepam (ATIVAN) 2 mg/mL injection 1 mg (Not Released) 1 mg, Intravenous, PRN, Anxiety, Nausea/Vomiting, Starting when released, for 1 dose Administer prior to chemotherapy. OrderHistory CHEMOTHERAPY ferric gluconate (FERRLECIT) 125 mg in sodium chloride 0.9% 100 mL IVPB (Not Released ) 125 mg, Intravenous, for 1 Hours, ONCE, Starting when released OrderHistory oxaliplatin (ELOXATIN) 135 mg in dextrose 5% 223 mL chemo infusion 135 mg (rounded from 135.2 mg = 80 mg/m2 1.69 m2 Order-specific BSA), Intravenous, f or 2 Hours, ONCE, Tue11/01/16 at 1000, For 1 dose Chemotherapy: Use appropriate handling precautions. Not compatible with NS or any chloride- containing solutions. Flush line with D5W prior to giving any other meds. Administer via y-s ite with leucovorin. OrderHistory leucovorin 340 mg in dextrose 5% 250 mL infusion 340 mg (rounded from 338 mg = 200 mg/m2 1.69 m2 Order-specific BSA), Intravenous, fo r 120 Minutes, ONCE, Tue11/01/16 at 1000, For 1 dose Administer via y-site with oxaliplatin OrderHistory fluorouracil 4,050 mg in sodium chloride 0.9% 11 mL CADD PUMP chemo infusion 4,050 mg (rounded from 4,056 mg = 2,400 mg/m2 1.69 m2 Order-specific BSA), Intraveno us, for 46 Hours, EVERY 46 HOURS, First dose on Tue11/01/16 at 1200 OUTPATIENT Chemotherapy: Use appropriate handling precautions. Protect from light. Start Da y 1, disconnect Day 3. OrderHistory Post-Medications heparin 100 units/mL flush injection 500 Units (Not Released) 5 mL, Intercatheter, PRN, Line Care, Starting when released, Until Discontinued Order History Infusion Reaction Orders Stop infusion if: (Not Released) Stop infusion if an infusion reaction is suspected (pruritis, flushing, rhinitis, fever , rash, back pain, dyspnea). Notify MD. OrderHistory Nursing communication (Not Released) STAT, UNTIL DISCONTINUED Starting when released Until Specified Place patient in a supine position and maintain airway. OrderHistory Check vital signs (Not Released) Monitor vital signs every 5 minutes until back to baseline, then every 15 minutes until resolution of symptoms. OrderHistory Start oxygen (Not Released) Start oxygen at 6-8 LPM for O2 < or = 90%. OrderHistory diphenhydrAMINE (BENADRYL) injection 25 mg (Not Released) 25 mg, Intravenous, EVERY 15 MIN PRN, Infusion reaction, Starting when released, for 2 doses OrderHistory methylPREDNISolone sodium succinate (solu-MEDROL) 62.5 mg/mL injection 125 mg (Not Re leased) 125 mg, Intravenous, ONCE PRN, Infusion reaction, Starting when released, for 1 dose Choose only one steroid. Mix with 2 mL provided diluent to make 62.5 mg/mL. OrderHistory Resume infusion if: (Not Released) Resume infusion when symptoms resolve, as directed by MD. OrderHistory Anaphylaxis orders (Not Released) If a severe hypersensitivity reaction or anaphylaxis is suspected (bronchospasm, strido r, wheezing, respiratory depression, cardiac arrhythmia, generalized urticaria, SBP <= 80 mm Hg or 30 mm Hg drop from baseline, angioedema, shock, loss of consciousness): Stop infusion , activate code blue and notify MD. OrderHistory EPINEPHrine 1 mg/mL injection 0.3 mg (Not Released) 0.3 mg, Intramuscular, EVERY 5 MIN PRN, Anaphylaxis, Starting when released, Until Disc ontinued FOR ANAPHYLAXIS: Administer in the anterior lateral thigh using 1 - 1.5 inch needle. Orde rHistory diphenhydrAMINE (BENADRYL) injection 50 mg (Not Released) 50 mg, Intravenous, PRN, Anaphylaxis, Starting when released, for 1 dose FOR ANAPHYLAXIS. OrderHistory sodium chloride 0.9% (NS) infusion 500 mL (Not Released) at 500 mL/hr, Intravenous, PRN, Anaphylaxis, Starting when released, Until Discontinued FOR ANAPHYLAXIS: Run wide open to gravity. OrderHistory albuterol 90 mcg/puff inhaler 2 puff (Not Released) 2 puff, Inhalation, ONCE PRN, Bronchospasm or hypoxemia, Starting when released, Until Discontinued Shake well. May repeat x 1. OrderHistory famotidine (PEPCID) injection 20 mg (Not Released) 20 mg, Intravenous, ONCE PRN, Anaphylaxis, Starting when released, Until Discontinued Prior to administration, prepare a 20 mg dose by diluting 2 mL of famotidine 10 mg/mL to 10 mL with normal saline. OrderHistory SIRENA HELTON MD Portions of this chart may have been created with Websp[employer] voice recognition software. Occasi onal wrong-word or [...] + +--------+ + + + | PATHOLOGY - EXTERNAL | | 03/19/2010 | | Results for this | | SCAN | | 12:00 AM | | procedure are in the | | | | PDT | | results section. | + +--------+ + + + | PATHOLOGY - EXTERNAL | | 03/19/2010 | | Results for this | | SCAN | | 12:00 AM | | procedure are in the | | | | PDT | | results section. | + +--------+ + + + documented in this encounter Results PATHOLOGY - EXTERNAL SCAN (03/19/2010 12:00 AM PDT) + + + | Narrative | Performed At | + + + | Ordered by an | | | unspecified provider. | | + + + PATHOLOGY - EXTERNAL SCAN (03/19/2010 12:00 AM PDT) + + + | [...]
--- OUTSIDE RECORDS SUMMARY | ~2019-06-11 | XMS | Encounter Summary ---
Demographics + + + | Address | [address] | | | [place] [address] | + + + | Home Phone [...] Team Providers + +------+ + | Care Clothing Supervisor Name | Role | Phone | + +------+ + | Kristian Anderson DO | PCP | | + +------+ + Encounter Details +--------+ + + + + | Date | Type | Department | Care Team | Description | +--------+ + + + + | 12/09/ | Procedure | Diagnostic Imaging | | | | 2016 | Pass | Services at [facility] | | | | | | [address] | | | | | | [place] Mailcode: | | | | | | [address] | | | | | | [facility] | | | | | | [place], [place] | | | | | | [address] | | | | | | [phone] | | | +--------+ + + + [...] | | | | | | [place] [address] | | | | | | [phone] | | | | | | | | +--------+---------+ + + + documented as of this encounter Visit Diagnoses Not on filedocumented in this encounter"
--- OUTSIDE RECORDS SUMMARY | ~2019-06-11 | XMS | Encounter Summary ---
Demographics + + + | Address | [address] | | | [place] [address] | + + + | Home Phone | | + + + | Preferred Language | Unknown | + + + | Marital Status | Single | + + + | Worship Affiliation | NON | + + + [...] Team Providers + +------+ + | Care Structural Steel Erector Name | Role | Phone | + [...] [address] | | | | | | [place], [place] | | | | | | [address] | | | +--------+ + + + [...] | | | | | [place], | | | | | | [place] [address] | | | | | | [phone] | | | | | | | | +--------+---------+ + + + documented as of this encounter Visit Diagnoses Not on filedocumented in this encounter"
--- OUTSIDE RECORDS SUMMARY | ~2019-06-11 | XMS | Encounter Summary ---
Demographics + + + | Address | [address] | | | [place] [address] | + + + | Home Phone | | + + + | Preferred Language | Unknown | + + + | Marital Status | | + + + | Restoration Affiliation | Unknown | + + + | Race | Unknown | + + + | Ethnic Group | Unknown | + + + Author + + + | Author | and [facility] | | | and [place] | + + + | Organization | and [facility] | | | and [place] | + + + | Address | Unknown | + + + | Phone | Unavailable | + + + Support + + + + + | Name | Relationship | Address | Phone | + + + + + | Lamar Phillips | REZA | [place] [address] | | + + + + + Care Team Providers + +------+ + | Care Transportation Dispatcher Name | Role | Phone | + +------+ + | Kristian Anderson DO | PCP | | + +------+ + Encounter Details +--------+ + + + + | Date | Type | Department | Care Team | Description | +--------+ + + + + | 11/03/ | Documentati | [facility] | Jan[place], | | | 2017 | on | [facility] | Mike White MD [address] | | | | | [facility] [address] [place] | | | | | [address] [place] | [place] [address] | | | | | [place] [address] | [phone] | | | | | [phone] | | | +--------+ + + + [...]
--- OUTSIDE RECORDS SUMMARY | ~2019-06-11 | XMS | Encounter Summary ---
Demographics + + + | Address | [address] | | | [place] [address] | + + + | Home Phone [...] Team Providers + +------+ + | Care Movement Education Specialist Name | Role | Phone | [...] Radiology Order | | 2018 | | [place] [address] [address] | [address] | | | | | [address] [place], | | | | | Mailcode: [place] | [place] [address] | | | | | for Health and | [phone] | | | | | [facility] [address] | | | | | | [place], [place] | | | | | | [address] | | | | | | [phone] | | | +--------+ + + + [...] | | | | | [address] [place], | | | | | | [place] [address] | | | | | | [phone] | | | | | | | | +--------+---------+ + + + documented as of this encounter Visit Diagnoses Not on filedocumented in this encounter"
--- OUTSIDE RECORDS SUMMARY | ~2019-06-11 | XMS | Encounter Summary ---
Demographics + + + | Address | [address] | | | [place] [address] | + + + | Home Phone [...] Team Providers + +------+ + | Care Wastewater Treatment Supervisor Name | Role | Phone | [...] | 2017 | | Center at [facility] [address] | [address] | | | | | [address] | [place], | | | | | Mailcode: [place] | [place] [address] | | | | | for Health and | [phone] | | | | | [facility] [address] | | | | | | [place], [place] | | | | | | [address] | | | | | | [phone] | | | +--------+ + + + [...] | | | | | [address] [place], | | | | | | [place] [address] | | | | | | [phone] | | | | | | | | +--------+---------+ + + + documented as of this encounter Visit Diagnoses Not on filecumented in this encounter"
--- OUTSIDE RECORDS SUMMARY | ~2019-06-11 | XMS | Encounter Summary ---
Demographics + + + | Address | [address] | | | [place] [address] | + + + | Home Phone | | + + + | Preferred Language | Unknown | + + + | Marital Status | | + + + | Roman Catholic Affiliation | Unknown | + + + | Race | Unknown | + + + | Ethnic Group | Unknown | + + + Author + + + | Author | [facility] | | | and [place] | + + + | Organization | [facility] | | | and [place] | + + + | Address | Unknown | + + + | Phone | Unavailable | + + + Support + + + + + | Name | Relationship | Address | Phone | + + + + + | Lamar Phillips | REZA | [place] [address] | | + + + + + Care Team Providers + +------+ + | Care Hay Chopper Name | Role | Phone | + [...] neoplasm of | Mike C, | [address] | | | | | rectum (HCC) | MD [address] | [place], | | | | | Procedures | [address] | [place] [address] | | | | | [place] | [place], | Phone: | | | | | [place] | [place] [address] | [phone] | | | | | HCL | Phone: | Fax: | | | | | INJECTION, 1 | [phone] | [phone] | | | | | MG [place] | Fax: | | | | | | DEXAMETHASON | [phone] | | | | | | E SODIUM | | | | | | | PHOS, 1 MG | | | | | | | FL LORAZEPAM | | | | | | | INJECTION, | | | | | | | 2 MG FL | | | | | [...] | | | 500 MG FL | | | | | [...] | | | | | | FL DRUGS | | | | | | | UNCLASSIFIED | | | | | | | INJECTION, | | | | | | | 1 ML | | | +--------+--------+ + + + + Encounter Details +--------+ + + + + | Date | Type | Department | Care Team | Description | +--------+ + + + + | 09/05/ | Hospital | [facility] | Janel, | Rectal cancer (HCC) | | 2018 | Encounter | MED CTR CHEMO | Mike White MD [address] | | | | | [address] | [address] [facility] | | | | | [place], | [place] [address] | | | | | [place] [address] | [phone] | | | | | [phone] | | | +--------+ + + + [...] + | CBC WITH | STAT | 09/05/2017 | Rectal cancer | Results for this | | DIFFERENTIAL | | 9:13 AM | (HCC) | procedure are in the | | | | PST | | results section. | + +--------+ + + + | LACTATE | STAT | 09/05/2017 | Rectal cancer | Results for this | | DEHYDROGENASE | | 9:13 AM | (HCC) | procedure are in the | | | | PST | | results section. | + +--------+ + + + | COMPREHENSIVE | STAT | 09/05/2017 | Rectal cancer | Results for this | | METABOLIC PANEL | | 9:13 AM | (HCC) | procedure are in the | | | | PST | | results section. | + +--------+ + + + documented in this encounter Results Lactate Dehydrogenase (09/05/2017 9:13 AM PST) + +-------+ + + + | Component | Value | Ref Range | Performed | Pathologist | | | | | At | Signature | + +-------+ + + + | LDH TOTAL | 148 | 91 - 180 U/L | [facility] [...] [address] | [place] | [phone] | | [facility] | | [address] | | | - LABORATORY | | | | + + + + + CBC with Differential (09/05/2017 9:13 AM PST) + + + + + + | Component | Value | Ref Range | Performed | Pathologist | | | | | At | Signature | + + + + + + | WBC | 7.0 | 4.0 - 11.0 K/uL | [facility] | | | | | | [facility] | | | | | | MEDICAL | | | | | | CENTER - | | | | | | LABORATORY | | + + + + + + | RBC | 3.94 | 3.70 - 5.20 | [facility] | | | | | M/uL | [facility] | | | | | | MEDICAL | | | | | | CENTER - | | | | | | LABORATORY | | + + + + + + | Hemoglobin | 10.1 (L) | 11.5 - 16.0 | [facility] | | | | | g/dL | [facility] | | | | | | MEDICAL | | | | | | CENTER - | | | | | | LABORATORY | | + + + + + + | Hematocrit | 31.4 (L) | 34.0 - 47.0 % | [facility] | | | | | | [facility] | | | | | | MEDICAL | | | | | | CENTER - | | | | | | LABORATORY | | + + + + + + | MCV | 79.7 (L) | 83.0 - 101.0 fL | [...] + + + + | MCHC | 32.2 | 32.0 - 36.0 | [facility] | | | | | g/dL | [facility] | | | | | | MEDICAL | | | | | | CENTER - | | | | | | LABORATORY | | + + + + + + | RDW-CV | 20.7 (H) | <15.0 % | [facility] | | | | | | [facility] | | | | | | MEDICAL | | | | | | CENTER - | | | | | | LABORATORY | | + + + + + + | Platelet | 381 | 140 - 440 K/uL | [facility] [...] + + + + | % | 83.5 (H) | 45.0 - 82.0 % | [facility] | | | Neutrophils | | | [facility] | | | | | | MEDICAL | | | | | | CENTER - | | | | | | LABORATORY | | + + + + + + | % | 7.3 (L) | 20.0 - 45.0 % | [facility] | | | Lymphocytes | | | [facility] | | | | | | MEDICAL | | | | | | CENTER - | | | | | | LABORATORY | | + + + + + + | % Monocytes | 5.1 | 4.0 - 12.0 % | [facility] | | | | | | [facility] | | | | | | MEDICAL | | | | | | CENTER - | | | | | | LABORATORY | | + + + + + + | % | 3.3 | 0.0 - 5.0 % | [facility] [...] + + + + | Absolute | 5.80 | 1.80 - 8.50 | [facility] | | | Neutrophils | | K/uL | [facility] | | | | | | MEDICAL | | | | | | CENTER - | | | | | | LABORATORY | | + + + + + + | Absolute | 0.50 (L) | 0.60 - 3.20 | [facility] | | | Lymphocytes | | K/uL | [facility] | | | | | | MEDICAL | | | | | | CENTER - | | | | | | LABORATORY | | + + + + + + | Absolute | 0.40 | 0.00 - 1.00 | [facility] | [...] | Basophils | | K/uL | [facility] | | | | [...] [address] | [place] | [phone] | | [facility] | | [address] | | | - LABORATORY | | | | + + + + + Comprehensive Metabolic Panel (09/05/2017 9:13 AM PST) + + + + + [...] + + + + | K | 3.9 | 3.5 - 5.1 | [facility] | | | | | mmol/L | [facility] | | | | | | MEDICAL | | | | | | CENTER - | | | | | | LABORATORY | | + + + + + + | Cl | 106 | 98 - 109 mmol/L | [facility] | | | | | | [facility] | | | | | | MEDICAL | | | | | | CENTER - | | | | | | LABORATORY | | + + + + + + | CO2 | 26 | 24 - 31 mmol/L | [facility] [...] + + + + | Glucose | 131 (H) | 70 - 109 mg/dL | [facility] | | | | | | [facility] | | | | | | MEDICAL | | | | | | CENTER - | | | | | | LABORATORY | | + + + + + + | BUN | 10 | 7 - 18 mg/dL | [facility] | | | | | | [facility] | | | [facility] | | [facility] | | | | | | CENTER - | | | | | | LABORATORY | | + + + + + + | Creatinine | 0.56 (L) | 0.60 - 1.30 | [facility] | | | | | mg/dL | [facility] | | | | | | MEDICAL | | | | | | CENTER - | | | | | | LABORATORY | | + + + + + + | eGFR if not | >60Comment: GLOMERULAR | >=60 | [facility] | | | | FILTRATION | mL/min/1.73m2 | [facility] | | | MONTENEGRIN | RATE,ESTIMATED | | MEDICAL | | | | mL/min/1.72n7Vyga than | | CENTER - | | [...] + + + + | Total | 6.0 | 6.0 - 7.8 g/dL | [facility] | | | Protein | | | [facility] | | | | | | MEDICAL | | | | | | CENTER - | | | | | | LABORATORY | | + + + + + + | AST | 34 | 10 - 42 U/L | [facility] [...] + + + + | Alkaline | 100 | 40 - 110 U/L | [facility] | | | Phosphatase | | | [facility] | | | | | | MEDICAL | | | | | | CENTER - | | | | | | LABORATORY | | + + + + + + | Globulin | 3.2 | 2.1 - 3.8 g/dL | [facility] [...] + + + + | BUN/Creatin | 17.9 | | [facility] | | | ine [...] + | [facility] | [address] | [place], [place] | [phone] | | [facility] | | [address] | | | - LABORATORY | | [...] | dexamethasone (DECADRON) tablet | Given | 09/05/19 | 4 mg | | | | 4 mg 4 mg, Oral, ONCE, Tue | | 18 10:50 | | | | | 09/05/17 at 1100, For 1 dose | | AM PST | | | | + +--------+ +------+------+------+ +---+---+ | | | +---+---+ + +-------+ +---+---+---+ | ethyl chloride spray Topical, | Given | 09/05/19 | | | | | PRN, Pain, Starting 2/12/18 | | 18 9:24 | | | | | at 0912 | | AM PST | | | | + +-------+ +---+---+---+ +---+---+ | | | +---+---+ + +-------+ + +---------+---+ | fluorouracil 4,350 mg in sodium | Given | 09/05/19 | 4,350 mg | 2 mL/hr | | | chloride 0.9% 7 mL CADD PUMP | | 18 1:28 | | | | | infusion 4,350 [...] | | | | First dose on Tue09/05/17 at | | | | | | | 1330, OUTPATIENT Chemotherapy: | | | | | [...] mg in dextrose | New Bag | 09/05/19 | 360 mg | 134 | | | 5% 250 mL infusion 360 mg | | 18 11:16 | | mL/hr | | | (rounded from 362 mg = 200 mg/m2 | | AM PST | | | | | | | | | | | | 1.81 m2 Treatment plan recorded | | | | | | | BSA), Intravenous, Administer | | | | | | | over 2 Hours, ONCE, 09/05/17 | | | | | | | at 1130, For 1 dose, Administer | | | | | | | via y-site with oxaliplatin, | | | | | | + +---------+ +--------+-------+---+ +---+---+ | | | +---+---+ + +---------+ +--------+--------+---+ | oxaliplatin (ELOXATIN) 115 mg | New Bag | 09/05/19 | 115 mg | 136.5 | | | in dextrose 5% 250 mL infusion | | 18 11:17 | | mL/hr | | | 115 mg (rounded from 115.84 mg = | | AM PST | | | | | 64 mg/m2 | | | | | | | 1.81 m2 Treatment plan recorded | | | | | | | BSA), Intravenous, Administer | | | | | | | over 2 Hours, ONCE, 09/05/17 | | | | | | | at 1130, For 1 dose, | | | | [...] | palonosetron (ALOXI) injection | Given | 09/05/19 | 0.25 mg | | | | 0.25 mg 0.25 mg, Intravenous, | | 18 10:51 | | | | | ONCE, 09/05/17 at 1100, For 1 | | AM PST | [...]
--- OUTSIDE RECORDS SUMMARY | ~2019-06-11 | XMS | Encounter Summary ---
Demographics + + + | Address | [address] | | | [place] [address] | + + + | Home Phone [...] + + + | Author | [facility] | + + + | Organization | [facility] | + + + | Address | Unknown | + + + | Phone | Unavailable | + + + Support + + +---------+ + | Name | Relationship | Address | Phone | + + +---------+ + | Darrius Quintana | ECON | Unknown | | + + +---------+ + Care Team Providers + +------+ + | Care Phone Operator Name | Role | Phone | [...] | | | | [facility] | [place], [place] | | | | | [place] [address] | [address] | | | | | [place], [place] | | | | | | [address] | | | | | | [phone] | | | +--------+ + + + [...] | | | | | Amita [address]ines [place], | | | | | | [place] [address] | | | | | | [phone] | | | | | | | | +--------+---------+ + + + documented as of this encounter Visit Diagnoses Not on filedocumented in this encounter"
--- OUTSIDE RECORDS SUMMARY | ~2019-06-11 | XMS | Encounter Summary ---
Demographics + + + | Address | [address] | | | [place] [address] | + + + | Home Phone | | + + + | Preferred Language | Unknown | + + + | Marital Status | Single | + + + | Evangelical Affiliation | NON | + + + | Race | White | + + + | Ethnic Group | Not or | + + + Author + + + | Author | [facility] | + + + | Organization | [facility] | + + + | Address | Unknown | + + + | Phone | Unavailable | + + + Support + + +---------+ + | Name | Relationship | Address | Phone | + + +---------+ + | Darrius Quintana | ECON | Unknown | | + + +---------+ + Care Team Providers + +------+ + | Care User Acceptance Tester Name | Role | Phone | + +------+ + | Silvioct Kristian | PCP | | + +------+ + Reason for Visit + + + | Reason | Comments | + + + | Outside Records | 10/27/2016 Op notes and Pathology | | Received | | + + + Encounter Details +--------+ + + + + | Date | Type | Department | Care Team | Description | +--------+ + + + + | 03/16/ | Abstract | Digestive Health | Ailyn Wolff MD | Outside Records | | 2017 | | [facility] at [facility] [address] | [address] | Received (10/27/2016 | | | | [address] | Amita [address], | Op notes and | | | | Mailcode: [place] | [place] [address] | Pathology) | | | | for Health and | [phone] | | | | | [facility] [address] | | | | | | [place], [place] | | | | | | [address] | | | | | | [phone] | | | +--------+ + + + [...] | | | | | [address] [place], | | | | | | [place] [address] | | | | | | [phone] | | | | | | | | +--------+---------+ + + + documented as of this encounter Visit Diagnoses Not on filedocumented in this encounter"
--- OUTSIDE RECORDS SUMMARY | ~2019-06-11 | XMS | Encounter Summary ---
Demographics + + + | Address | [address] | | | [place] [address] | + + + | Home Phone | | + + + | Preferred Language | Unknown | + + + | Marital Status | Single | + + + | Moravian Affiliation | NON | + + + | Race | White | + + + | Ethnic Group | Not or | + + + Author + + + | Author | [facility] | + + + | Organization | [facility] | + + + | Address | Unknown | + + + | Phone | Unavailable | + + + Support + + +---------+ + | Name | Relationship | Address | Phone | + + +---------+ + | Darrius Quintana | ECON | Unknown | | + + +---------+ + Care Team Providers + +------+ + | Care Meat Department Manager Name | Role | Phone | + +------+ + | Kristian Anderson DO | PCP | | + +------+ + Encounter Details +--------+ + + + + | Date | Type | Department | Care Team | Description | +--------+ + + + + | 10/04/ | Abstract | Dig[facility]ive Health | Clinic, Surgery | | | 2017 | | [facility] [address] | | | | | | [address] | | | | | | Mailcode: [place] | | | | | | for Health and | | | | | | Healing, [address] | | | | | | [place], [place] | | | | | | [address] | | | | | | [phone] | | | +--------+ + + + [...] | | | | | Amita [address], | | | | | | [place] [address] | | | | | | [phone] | | | | | | | | +--------+---------+ + + + documented as of this encounter Visit Diagnoses Not on filedocumented in this encounter"
--- OUTSIDE RECORDS SUMMARY | ~2019-06-11 | XMS | Encounter Summary ---
Demographics + + + | Address | [address] | | | [place] [address] | + + + | Home Phone | | + + + | Preferred Language | Unknown | + + + | Marital Status | | + + + | Mandaen Affiliation | Unknown | + + + | Race | Unknown | + + + | Ethnic Group | Unknown | + + + Author + + + | Author | [facility] | | | and [place] | + + + | Organization | [facility] | | | and [place] | + + + | Address | Unknown | + + + | Phone | Unavailable | + + + Support + + + + + | Name | Relationship | Address | Phone | + + + + + | Lamar Phillips | REZA | [place] [address] | | + + + + + Care Team Providers + +------+ + | Care Cosmetician Name | Role | Phone | + [...] + + + + | 01/24/ | Hospital | [facility] | Janel, | Rectal cancer (HCC) | | 2017 | Encounter | MED CTR CHEMO | Mike White MD [address] | | | | | [address] | [facility] | | | | | [place], | [place] [address] | | | | | [place] [address] | [phone] | | | | | [phone] | | | +--------+ + + + [...] encounter Progress Notes Jada Jauregui RN - 01/24/2017 11:30 AM PDTPatient discharged in satisfactory conditi on. Discharged ambulatory. With family. To home. Verified that patient has antinausea [...] | + +--------+ + + + | URINALYSIS WITH | STAT | 01/24/2017 | Rectal cancer | Results for this | | MICROSCOPIC WITH | | 10:25 AM | (HCC) | procedure are in the | | CULTURE IF INDICATED | | PDT | | results section. | + +--------+ + + + | CULTURE, URINE | STAT | 01/24/2017 | Rectal cancer | Results for this | | | | 10:25 AM | (HCC) | procedure are in the | | | | PDT | | results section. | + +--------+ + + + | CBC WITH | STAT | 01/24/2017 | Rectal cancer | Results for this | | DIFFERENTIAL | | 9:14 AM | (HCC) | procedure are in the | | | | PDT | | results section. | + +--------+ + + + | LACTATE | STAT | 01/24/2017 | Rectal cancer | Results for this | | DEHYDROGENASE | | 9:14 AM | (HCC) | procedure are in the | | | | PDT | | results section. | + +--------+ + + + | COMPREHENSIVE | STAT | 01/24/2017 | Rectal cancer | Results for this | | METABOLIC PANEL | | 9:14 AM | (HCC) | procedure are in the | | | | PDT | | results section. | + +--------+ + + + documented in this encounter Results Culture, Urine (01/24/2017 10:25 AM PDT) + + + + + + | Component | Value | Ref Range | Performed | Pathologist | | | | | At | Signature | + + + + + + | Culture | 8,000 CFU/ml Mixed Gram | | [facility] | | | | Positive FloraComment: | | [facility] | | | | Suggests contamination | | MEDICAL | | | | with urogenital or skin | | CENTER - | | | | evette.No further work-up | | LABORATORY | | | | to follow. | | | | + + + + + + + + | Specimen | + + | Urine - Urine | | specimen obtained by | | clean catch | | procedure (specimen) | + + + + + + + | Performing | Address | City/State/Zipcode | Phone Number | | Organization | | | | + + + + + | [facility] | [address] | [place] | [phone] | | [facility] | | [address] | | | - LABORATORY | | | | + + + + + Urinalysis with Microscopic with Culture if Indicated (01/24/2017 10:25 AM PDT) + + + + + + | Component | Value | Ref Range | Performed | Pathologist | | | | | At | Signature | + + + + + + | Color | Yellow | Light Yellow, | [facility] | | | | | Yellow, Straw | [facility] | | | | | | MEDICAL | | | | | | CENTER - | | | | | | LABORATORY | | + + + + + + | Clarity | Clear | Clear | [facility] | | | | | | [facility] | | | | | | MEDICAL | | | | | | CENTER - | | | | | | LABORATORY | | + + + + + + | pH, Urine | 5.0 | 5.0 - 8.0 | [facility] | | | | | | [facility] | | | | | | MEDICAL | | | | | | CENTER - | | | | | | LABORATORY | | + + + + + + | Specific | 1.009 | 1.001 - 1.030 | [facility] | | | [place] | | | [facility] | | | | | | MEDICAL | | | | | | CENTER - | | | | | | LABORATORY | | + + + + + + | Protein, | Negative | Negative | [facility] | | | Urine | | | [facility] | | | | | | MEDICAL | | | | | | CENTER - | | | | | | LABORATORY | | + + + + + + | Blood, | Negative | Negative | [facility] | | | Urine | | | [facility] | | | | | | MEDICAL | | | | | | CENTER - | | | | | | LABORATORY | | + + + + + + | Glucose, | Negative | Negative | [facility] | | | Urine | | | [facility] | | | | | | MEDICAL | | | | | | CENTER - | | | | | | LABORATORY | | + + + + + + | Ketones, | Negative | Negative | [facility] | | | Urine | | | [facility] | | | | | | MEDICAL | | | | | | CENTER - | | | | | | LABORATORY | | + + + + + + | Bilirubin, | Negative | Negative | [facility] | | | Urine | | | [facility] | | | | | | MEDICAL | | | | | | CENTER - | | | | | | LABORATORY | | + + + + + + | Nitrite, | Negative | Negative | [facility] | | | Urine | | | [facility] | | | | | | MEDICAL | | | | | | CENTER - | | | | | | LABORATORY | | + + + + + + | Leukocyte | Moderate (A) | Negative | [facility] | | | Esterase, | | | [facility] | | | Urine | | | MEDICAL | | | | | | CENTER - | | | | | | LABORATORY | | + + + + + + | Urobilinoge | Negative | 0.2 mg/dL, 1.0 | [facility] | | | n, Urine | | mg/dL, Negative | [facility] | | | | | | MEDICAL | | | | | | CENTER - | | | | | | LABORATORY | | + + + + + + | WBC UA | 15-25 (A) | 0 - 2 /HPF | [facility] | | | | | | [facility] | | | | | | MEDICAL | | | | | | CENTER - | | | | | | LABORATORY | | + + + + + + | RBC UA | 0-2 | 0 - 2 /HPF | [facility] | | | | | | [facility] | | | | | | MEDICAL | | | | | | CENTER - | | | | | | LABORATORY | | + + + + + + | SQUAMOUS | 2-5 (A) | 0 - 2 /LPF | [facility] | | | EPITHELIAL | | | [facility] | | | UA | | | MEDICAL | | | | | | CENTER - | | | | | | LABORATORY | | + + + + + + | BACTERIA UA | 1+ (A) | Negative /HPF | [facility] | | | | | | [facility] | | | | | | MEDICAL | | | | | | CENTER - | | | | | | LABORATORY | | + + + + + + | MUCUS UA | Present (A) | Negative /LPF | [facility] | | | | | | [facility] | | | | | | MEDICAL | | | | | | CENTER - | | | | | | LABORATORY | | + + + + + + | URINE | Urine Culture Set Up | | [facility] | | | COMMENT | | | [facility] | | | | | | MEDICAL | | | | | | CENTER - | | | | | | LABORATORY | | + + + + + + + + | Specimen | + + | Urine - Urine | | specimen obtained by | | clean catch | | procedure (specimen) | + + + + + + + | Performing | Address | City/State/Zipcode | Phone Number | | Organization | | | | + + + + + | [facility] | [address] | [place] | [phone] | | [facility] | | [address] | | | - LABORATORY | | | | + + + + + CBC with Differential (01/24/2017 9:14 AM PDT) + + + + + + | Component | Value | Ref Range | Performed | Pathologist | | | | | At | Signature | + + + + + + | WBC | 7.8 | 4.0 - 11.0 K/uL | [facility] | | | | | | [facility] [...] + + + + | Hemoglobin | 10.6 (L) | 11.5 - 16.0 | [facility] | | | | | g/dL | [facility] | | | | | | MEDICAL | | | | | | CENTER - | | | | | | LABORATORY | | + + + + + + | Hematocrit | 31.8 (L) | 34.0 - 47.0 % | [facility] | | | | | | [facility] | | | | | | MEDICAL | | | | | | CENTER - | | | | | | LABORATORY | | + + + + + + | MCV | 84.1 | 83.0 - 101.0 fL | [facility] | | | | | | [facility] | | | | | | MEDICAL | | | | | | CENTER - | | | | | | LABORATORY | | + + + + + + | MCH | 28.0 | 28.0 - 35.0 pg | [facility] [...] + + + + | RDW-CV | 20.4 (H) | <15.0 % | [facility] | | | | | | [facility] | | | | | | MEDICAL | | | | | | CENTER - | | | | | | LABORATORY | | + + + + + + | Platelet | 280 | 140 - 440 K/uL | [facility] [...] + + + + | % | 5.9 (L) | 20.0 - 45.0 % | [facility] | | | Lymphocytes | | | [facility] | | | | | | MEDICAL | | | | | | CENTER - | | | | | | LABORATORY | | + + + + + + | % Monocytes | 7.8 | 4.0 - 12.0 % | [facility] | | | | | | [facility] | | | | | | MEDICAL | | | | | | CENTER - | | | | | | LABORATORY | | + + + + + + | % | 3.5 | 0.0 - 5.0 % | [facility] | | | Eosinophils | | | [facility] | | | | | | MEDICAL | | | | | | CENTER - | | | | | | LABORATORY | | + + + + + + | % Basophils | 0.2 | 0.0 - 1.0 % | [facility] | | | | | | [facility] | | | | | | MEDICAL | | | | | | CENTER - | | | | | | LABORATORY | | + + + + + + | Absolute | 6.40 | 1.80 - 8.50 | [facility] | [...] + | [facility] | [address] | [place] | [phone] | | [facility] | | [address] | | | - LABORATORY | | | | + + + + + Comprehensive Metabolic Panel (01/24/2017 9:14 AM PDT) + + + + + [...] 12 | 7 - 18 mg/dL | [facility] | | | | | | [facility] | | | | | | MEDICAL | | | | | | CENTER - | | | | | | LABORATORY | | + + + + + + | Creatinine | 0.51 (L) | 0.60 - 1.30 | [facility] [...] | | | FILTRATION | mL/min/1.73m2 | [facility] | | | [place]ALT[place] | RATE,ESTIMATED | | MEDICAL | | | | mL/min/1.27h2Zqrz than | | CENTER - | | [...] + + + + | Calcium | 8.4 | 8.3 - 10.5 | [facility] | | | | | mg/dL | [facility] | | | | | | MEDICAL | | | | | | CENTER - | | | | | | LABORATORY | | + + + + + + | Albumin | 3.0 (L) | 3.2 - 5.0 g/dL | [facility] | | | | | | ST. [...] + + + + | AST | 23Comment: This is an | 10 - 42 [...] + + + + | ALT | 19Comment: This is an | 6 - 45 [...] + + + + | Alkaline | 89Comment: This is an | 40 - 110 [...] + + + + | BUN/Creatin | 23.5 | | [facility] | | | ine [...] + | [facility] | [address] | [place] | [phone] | | [facility] | | [id number] | | | - LABORATORY | | | | + + + + + Lactate Dehydrogenase (01/24/2017 9:14 AM PDT) + +-------+ + + + | Component | Value | Ref Range | Performed | Pathologist | | | | | At | Signature | + +-------+ + + + | LDH TOTAL | 157 | 91 - 180 U/L | [facility] | | | | | | [facility] [...] [address] | [place] | [phone] | | [facility] | | [id number] | | | - LABORATORY | | [...] 2,800 mg in sodium | Given | 01/25/20 | 2,800 mg | 0.5 | | | chloride 0.9% 28 mL [facility]ADD PUMP | | 17 11:28 | | mL/hr | | | chemo [...] | | | | First dose on Tue01/24/17 at 1045, | | | | | | | OUTPATIENT Chemotherapy: Use | | | | | | | appropriate handling precautions. | | | | | | | Protect from light. Continuous | | | | | | | infusion seven days per week from | | | | | | | Day 1 through last day of | | | | | | | radiation therapy., | | | | | | + +--------+ + +-------+------+ +---+---+ | | | +---+---+ documented in this encounter"
--- OUTSIDE RECORDS SUMMARY | ~2019-06-11 | XMS | Encounter Summary ---
Demographics + + + | Address | [address] | | | [place] [address] | + + + | Home Phone | | + + + | Preferred Language | Unknown | + + + | Marital Status | | + + + | Yazdanism Affiliation | Unknown | + + + | Race | Unknown | + + + | Ethnic Group | Unknown | + + + Author + + + | Author | [facility] | | | and [place] | + + + | Organization | [facility] | | | and [place] | + + + | Address | Unknown | + + + | Phone | Unavailable | + + + Support + + + + + | Name | Relationship | Address | Phone | + + + + + | Lamar Phillips | REZA | [place] [address] | | + + + + + Care Team Providers + +------+ + | Care Director Marketing Name | Role | Phone | + [...] + + | 11/01/ | Hospital | [facility] | Janel, | | | 2017 | Encounter | MED CTR NUTRITION | Mike White MD [address] | | | | [address] [place] | | | | | [place], | [place] [address] | | | | | [place] [address] | [phone] | | | | | [phone] | | | | | | | [...] +---------+ + + | amoxicillin | Take 500 mg by mouth | | 0 | | | | (AMOXIL) 500 MG | 3 times daily. WILL | | | | 7 | | capsule | FINISH ON | | | | | | | 11/02/2016. | | | | | + + [...] documented as of this encounter Progress Notes Ludivina Flores, RDN - 11/02/2016 7:37 AM PDTFormatting of this note might be different f rom the original. Medical Nutrition Note SUBJECTIVE: Weight is down from the last visit d/t several days of not being able to eat o r drink anything d/t strep throat. She states she has a good appetite now and is eating and drinking well and actually is up three pounds. She states she was down to 133#. Her siste r is with her today and is very encouraging to Jenn. 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 Several coupons for $3.00 off Ensure Clear were give n to Jenn. That is her supplement of choice. OBJECTIVE: Diet: high protein high calorie Wt Readings from Last 3 Encounters: 11/01/16 62 kg (136 lb 11 oz) 10/18/16 64.91 kg (143 lb 1.6 oz) Ht Readings from Last 1 Encounters: 10/18/16 1.626 m (5' 4") Labs: Lab Results Component Value Date ALBUMIN 2.7* 11/01/2016 ASSESSMENT/PLAN: Reviewed high calorie high protein foods. Also reviewed foods that are high in iron and th e need for Vit c to be consumed at the same time to increase absorption. Will continue to f rbuce Barajas in the cancer center. Time spent: 15 minutes Thank you for the referral, Ludivina Flores RDN 11/02/2016 7:37 documented in this encounter Plan of Treatment Not on filedocumented as of this encounter Visit Diagnoses Not on filedocumented in this encounter
--- OUTSIDE RECORDS SUMMARY | ~2019-06-11 | XMS | Encounter Summary ---
Demographics + + + | Address | [address] | | | [place] [address] | + + + | Home Phone | | + + + | Preferred Language | Unknown | + + + | Marital Status | Single | + + + | Pentecostalism Affiliation | NON | + + + [...] Team Providers + +------+ + | Care Registered Nurse Behavioral Health Name | Role | Phone | + [...] | | | | MR RECTAL | [place], [place] | Mailcode: | | | | | [place] | [address] | [address] | | | | | MRI, PELVIS, | Phone: | [place] | | | | | COMBO | [phone] | Research | | | | | | Fax: | Center | | | | | | [phone] | [place], [place] | | | | | | | [address] | | | | | | | Phone: | | | | | | | [phone] | | | | | | | Fax: | | | | | | | [phone] | +--------+--------+ + + + + Reason [...] | | Procedures | [address] | Rd | | | | | MR RECTAL | [facility] [place] | Mailcode: | | | | | [place] | [address] | [address] | | | | | MRI, PELVIS, | Phone: | [place] | | | | | COMBO | [phone] | Research | | | | | | Fax: | Center | | | | | | [phone] | [place], [place] | | | | | | | [address] | | | | | | | Phone: | | | | | | | [phone] | | | | | | | Fax: | | | | | | | [phone] | +--------+--------+ + + + + Encounter Details +--------+ + + + + | Date | Type | Department | Care Team | Description | +--------+ + + + + | 03/02/ | Hospital | Diagnostic Imaging | Ailyn Wolff MD | | | 2017 | Encounter | Services at [facility] | [address] | | | | | [address] | [place], | | | | | [place] Mailcode: | [place] [address] | | | | | [address] [place] | [phone] | | | | | [facility] | | | | | | [place], [place] | | | | | | [address] | | | | | | [phone] | | | +--------+ + + + [...] | | | | | [place] [address], | | | | | | [place] [address] | | | | | | [phone] | | | | | | | | +--------+---------+ + + + documented as of this encounter Procedures + +--------+ + + + | Procedure Name | Priori | Date/Time | Associated Diagnosis | Comments | | | ty | | | | + +--------+ + + + | PROCEDURE NOTE | Routin | 03/07/2017 | | Results for this | | | e | 2:58 PM | | procedure are in the | | | | PDT | | results section. | + +--------+ + + + | MR RECTAL W/WO | Routin | 03/02/2017 | Rectal cancer | Results for this | | | e | 9:30 AM | (HCC) | procedure are in the | | | | PDT | | results section. | + +--------+ + + + documented in this encounter Results PROCEDURE NOTE (03/07/2017 2:58 PM PDT)MR RECTAL W/WO (03/02/2017 9:30 AM PDT) + + | [...] mm on MRI | | rectum 01/03/2017) (, 95 and 92). OTHER FINDINGS: [...] in this encounter Administered Medications + +---------+ +-------+------+------+ | Medication Order | MAR | Action | Dose | Rate | Site | | | Action | Date | | | | + +---------+ +-------+------+------+ | gadoterate meglumine (DOTAREM) | IV Push | 08/09/20 | 15 mL | | | | 0.5 mmol/mL injection 15 mL 15 | | 17 10:00 | | | | | mL, intravenous, ONCE, 1 dose, | | AM PDT | | | | | 03/02/17 at 1000 | | | | | | + +---------+ +-------+------+------+ +---+---+ | | | +---+---+ documented in this encounter"
--- OUTSIDE RECORDS SUMMARY | ~2019-06-11 | XMS | Encounter Summary ---
Demographics + + + | Address | [address] | | | [place] [address] | + + + | Home Phone | | + + + | Preferred Language | Unknown | + + + | Marital Status | | + + + | Worship Affiliation | Unknown | + + + | Race | Unknown | + + + | Ethnic Group | Unknown | + + + Author + + + | Author | [facility] | | | and [place] | + + + | Organization | [facility] | | | and [place] | + + + | Address | Unknown | + + + | Phone | Unavailable | + + + Support + + + + + | Name | Relationship | Address | Phone | + + + + + | Lamar Phillips | REZA | [place] [address] | | + + + + + Care Team Providers + +------+ + | Care Director Of Sustainable Design Name | Role | Phone | + +------+ + | Kristian Anderson DO | PCP | | + +------+ + Reason for Visit +--------+ + | Reason | Comments | +--------+ + | Other | | +--------+ + Encounter Details +--------+ + + + + | Date | Type | Department | Care Team | Description | +--------+ + + + + | 08/01/ | Telephone | [facility] | Janel, | Other | | 2018 | | MED CTR MEDICAL | Mike White MD [address] | | | | | [address] [place] | | | | | [address] [place] | [place] [address] | | | | | [place] [address] | [phone] | | | | | [phone] | | | +--------+ + + + [...]
--- OUTSIDE RECORDS SUMMARY | ~2019-06-11 | XMS | Encounter Summary ---
Demographics + + + | Address | [address] | | | [place] [address] | + + + | Home Phone [...] Author + + + | Author | [facility] | + + + | Organization | [facility] | + + + | Address | Unknown | + + + | Phone | Unavailable | + + + Support + + +---------+ + | Name | Relationship | Address | Phone | + + +---------+ + | Darrius Quintana | ECON | Unknown | | + + +---------+ + Care Team Providers + +------+ + | Care Thread Tool Grinder Set Up Operator Name | Role | Phone | + +------+ + | Justin Kristian | PCP | | + +------+ + Encounter Details +--------+ + + + + | Date | Type | Department | Care Team | Description | +--------+ + + + + | 09/22/ | Procedure | [facility] | | | | 2017 | Pass | [facility] at | | | | | | [place] [address] | | | | [address] | | | | | | [place], [place] | | | | | | [address] | | | | | | [phone] | | | +--------+ + + + [...] | | | | | [place], | | | | | | [place] [address] | | | | | | [phone] | | | | | | | | +--------+---------+ + + + documented as of this encounter Visit Diagnoses Not on filedocumented in this encounter"
--- OUTSIDE RECORDS SUMMARY | ~2019-06-11 | XMS | Encounter Summary ---
Demographics + + + | Address | [address] | | | [place] [address] | + + + | Home Phone | | + + + | Preferred Language | Unknown | + + + | Marital Status | | + + + | Confucianism Affiliation | Unknown | + + + | Race | Unknown | + + + | Ethnic Group | Unknown | + + + Author + + + | Author | [facility] | | | and [place] | + + + | Organization | [facility] | | | and [place] | + + + | Address | Unknown | + + + | Phone | Unavailable | + + + Support + + + + + | Name | Relationship | Address | Phone | + + + + + | Lamar Phillips | REZA | [place] [address] | | + + + + + Care Team Providers + +------+ + | Care Washing Tub Operator Name | Role | Phone | [...] | +--------+ + + + + | 01/31/ | Hospital | [facility] | [facility], | Rectal cancer (HCC) | | 2017 | Encounter | MED CTR MEDICAL | Mike White MD [address] | | | | | [address] CL[address] | [facility] | | | | | W [facility] | [place] [address] | | | | | [place] [address] | [phone] | | | | | [phone] | | | +--------+ + + + [...] + + + | Blood Pressure | 141/77 | 01/31/2017 9:48 AM | | | | | PDT | | + + + + + | Pulse | 88 | 01/31/2017 9:48 AM | | | | | PDT | | + + + + + | Temperature | 36.8 C (98.2 F) | 01/31/2017 9:48 AM | | | | | PDT | | + + + + + | Respiratory Rate | 16 | 01/31/2017 9:48 AM | | | | | PDT | | + + + + + | Oxygen Saturation | 96% | 01/31/2017 9:48 AM | | | | | PDT | | + + + + + | Inhaled Oxygen | - | - | | | Concentration | | | | + + + + + | Weight | 68.2 kg (150 lb 6.4 | 01/31/2017 9:48 AM | | | | oz) | PDT | | + + + + + | Height | - | - | | + + + + + | Body Mass Index | 25.82 | 10/18/2016 11:04 AM | | | [...] +---------+ + + | fluconazole | Take two tablets on | 14 | 0 | 01/27/20 | | | (DIFLUCAN) 100 mg | day 1, then 1 tab | tablet | | 17 | 7 | | tablet | daily for next 13 | | | | | | | days. | | | | | [...] encounter Progress Notes Mike Islas MD - 01/31/2017 9:31 AM PDTFormatting of this note might be differe nt from the original. Hematology/Oncology Progress Note [facility] LETY Cheema Pt. Name/Age/: Paulette Byrnes 56 y.o. 1960 Med. Record Number: [id number] Date of admission: 01/31/2017 The patient's primary care provider is Kristian Anderson DO. Identifying Statement: Paulette Byrnes is a 56 y.o. female from [address] [place] [address] with Locally Advanced Rectal Cancer. The patient chart and medications were reviewed in detail and the patient was seen and exam ined. History of Present Illnesses, their Current Assessments and Plans: Problem List Rectal cancer Overview ACTIVE DIAGNOSIS: Locally Advanced Rectal Cancer. 1. Paulette presented to the [facility] emergency room on July 20, 2016 [...] cm within the rectum. Biopsy specimen number [id number] evaluated by Dr. Felipe Nixon of [facility] was notable for a tubular adenoma without high-grade dysplasia or overt carcinoma. This proced ure also included a full colonoscopy through the ostomy were 2 additional polyps were remove d, a tubular adenoma at 35 cm and a hyperplastic polyp at [address] C/A/P at [facility] in [place], [place] demonstrated no evidence of metastatic disease. 4. On September 22, 2016 Dr. Thacker placed in internal jugular Port-A-Cath without complications. 5. MRI of pelvis performed on October 05, 2016 at [facility]: Rectal mass 7.7 cm x 6.2 cm x 9.6 cm in length located within 3 cm of the anal sphincter and 6.4 cm from the anal verge with radi ographic extension though multiple areas of the bowel wall. 6. CT abdomen/pelvis also at [facility] October 05, 2016; large almost completely circumferential r ectosigmoid mass better delineated on the corresponding MRI with adjacent probable abscess. No distant metastases identified. 7. On October 14, 2016 Paulette was evaluated by Dr. Ailyn Wolff and Dr. Shea Mcneill of the [facility] where her case was presented to their tumor board. Clinical exa phillip is notable for an overt rectal carcinoma invading into the vagina. 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 Concerns raised by the [facility] Tumor Board were that the prior placement [...] as well as mutation analysis." Pathological Specimen #[id number] ([facility]). Tubulovillous adenoma with high grade dysplasia and [...] Plan Paulette Byrnes returned to clinic on 01/31/2017 with a postie for follow up after t hree weeks of combined modality therapy for locally advanced rectal cancer. Interval history is notable for the fact that Paulette will complete three weeks of amoxicillin /ciprofloxacin for peritumoral abscess today. Review of systems is notable for odynophagia, diarrhea, dysuria, and episodic abdominal jayant ns at the site of her ZAIN drain. Clinical exam is notable for Grade 3 mucositis, especially on the lips. Erythema from aroun d her ZAIN drain has resolved, however, drain fluid remains purulent. Laboratory exam is notable for Grade 1 anemia. Assessment; Locally advanced rectal cancer. Mucositis and diarrhea due to CIVI 5 FU chemotherapy. Pelvic soft tissue infection. Cystitis due to radiation. Plan; I recommended a one week treatment break from chemotherapy. If mucositis and diarrhea have improved in one week, then Paulette will resume CIVI 5FU at 180 mg/m/day. Monitor symptoms of abdominal pain and ZAIN drain output. If symptoms worsen resume antibioti c therapy-consider crossing over to [place]. Review of Systems: Constitutional: Reports energy level is slightly better. Reports in evenings she has chills /sweats intermittently. Reports nausea is intermittent. Appetite is lower- "it is like I zavala ve to force myself to eat", weight loss of 1.5 lbs. Denies shaking chills, anorexia, vomiti ng. Ear, Nose, Mouth, Throat: Reports having sores on lips, side of tongue and feels that her g lands in her throat are swollen. Cardiovascular: Reports palpitations intermittently. Denies shortness of breath, dyspnea on exertion, chest pain, or orthopnea. Respiratory: Denies cough, hemoptysis, or sputum production. Gastrointestinal: Reports left lower abdominal pain and pelvic pain below ostomy and drain tube that has been traveling to her lower back. States that she noticed that it was a shooti ng pain last night. Ostomy is draining well, this morning she is having lots of diarrhea. D enies constipation, melena, or bright red blood per rectum. Genitourinary: Reports having dysuria a few weeks ago and it continues to burn when she uri nates still. States she is having urgency with urination. Denies hematuria. Musculoskeletal: Denies joint pain or tenderness. Neurologic: Denies headaches, numbness/tingling in fingers/toes, or visual changes. Endocrine: Denies peripheral edema or heat/cold intolerance. Hematologic: Denies spontaneous bruising or bleeding. Integumentary: Denies rash or wounds . Pain: Reports pain at 1/10 on scale of 0-10 in lower back. Note: Here for follow up, labs and 5 hour treatment. Recently has developed dysuria, freque ncy and urgency. My chart: Active. Scheduled Medications: Current Outpatient Prescriptions Medication Sig [...] dinner). Takes day 2-3 after chemotherapy treatment. fluconazole (DIFLUCAN) 100 mg tablet Take two tablets on day 1, then 1 tab daily for ne xt 13 days. 14 tablet 0 HYDROcodone-acetaminophen (NORCO) 5-325 mg per tablet Take 1-2 tablets by mouth every 4 hours as needed for Pain. ibuprofen (ADVIL, MOTRIN) 200 mg tablet Take 200 mg by mouth every 6 hours as needed fo r Pain. Multiple Vitamins-Minerals (MULTIVITAMIN ADULT PO) Take by [...] Diagnosis Rectal cancer Lichen sclerosus Objectives: Temp: 36.8 C (98.2 F) BP: 141/77 Pulse: 88 Resp: 16 SpO2: 96 % on Min/Max Temp past 24 hours:No Data Recorded No intake or output data in the 24 hours ending 02/05/17 1353 Wt. Admission: Weight: 68.2 kg (150 lb 6.4 oz) Wt. Current: Weight: 68.2 kg (150 lb 6.4 oz) Wt Readings from Last 3 Encounters: 01/31/17 68.2 kg (150 lb 6.4 oz) 01/24/17 69.2 kg (152 lb 8 oz) 01/17/17 69.4 kg (153 lb 1.6 oz) Physical Exam: General: The [...] no discharge. There is 50 cc of purulent, opaque fluid in the bulb. Extremities: Nontender, no erythema, [...] Am. J. Clin. Oncol.: John Paul Baer., Matt Denney., Fransisca Baltazar., Jason Roque, Caitie Travis., Leonila Montes., Danielle, P .P.: Toxicity And Response Criteria [...] for PAULETTE BYRNES ( ) as of 02/05/2017 13:28 Ref. Range 01/31/2017 09:04 WBC Latest Ref Range: 4.0 - 11.0 K/uL 6.7 RBC: Latest Ref Range: 3.70 - 5.20 M/uL 3.76 Hgb Latest Ref Range: 11.5 - 16.0 g/dL 10.7 (L) Hct, Final Latest Ref Range: 34.0 - 47.0 % 32.2 (L) MCV Latest Ref Range: 83.0 - 101.0 fL 85.7 MCH Latest Ref Range: 28.0 - 35.0 pg 28.4 MCHC Latest Ref Range: 32.0 - 36.0 g/dL 33.2 RDW-CV Latest Ref Range: <15.0 % 21.4 (H) Platelet Count Latest Ref Range: 140 - 440 K/uL 333 MPV Latest Units: fL 6.3 Absolute Neutrophils Latest Ref Range: 1.80 - 8.50 K/uL 5.50 Absolute Lymphocytes Latest Ref Range: 0.60 - 3.20 K/uL 0.30 (L) Absolute Monocytes Latest Ref Range: 0.00 - 1.00 K/uL 0.50 Absolute Eosinophils Latest Ref Range: 0.00 - 0.40 K/uL 0.30 Absolute Basophils Latest Ref Range: 0.00 - 0.10 K/uL 0.10 % Neutrophils Latest Ref Range: 45.0 - 82.0 % 82.0 % Lymphocytes Latest Ref Range: 20.0 - 45.0 % 4.9 (L) % Monocytes Latest Ref Range: 4.0 - 12.0 % 7.0 % Eosinophils Latest Ref Range: 0.0 - 5.0 % 4.6 % Basophils Latest Ref Range: 0.0 - 1.0 % 1.5 (H) NA Latest Ref Range: 136 - 149 mmol/L 140 K Latest Ref Range: 3.5 - 5.1 mmol/L 3.8 Chloride Latest Ref Range: 98 - 109 mmol/L 107 Carbon dioxide Latest Ref Range: 24 - 31 mmol/L 26 ANION GAP Latest Ref Range: 3 - 16 mmol/L 7 GLUCOSE Latest Ref Range: 70 - 109 mg/dL 148 (H) BUN Latest Ref Range: 7 - 18 mg/dL 11 Creatinine Latest Ref Range: 0.60 - 1.30 mg/dL 0.62 BUN/CREA Unknown 17.7 ALBUMIN Latest Ref Range: 3.2 - 5.0 g/dL 3.2 Albumin/Globulin ratio Latest Ref Range: 0.8 - 2.0 1.1 Total protein Latest Ref Range: 6.0 - 7.8 g/dL 6.2 EGFR IF NOT Latest Ref Range: >=60 mL/min/1.73m2 >60 Calcium Latest Ref Range: 8.3 - 10.5 mg/dL 8.5 ALK PHOS Latest Ref Range: 40 - 110 U/L 101 ALT (SGPT) (REF) Latest Ref Range: 6 - 45 U/L 22 AST (SGOT) (REF) Latest Ref Range: 10 - 42 U/L 24 LDH TOTAL Latest Ref Range: 91 - 180 U/L 156 BILIRUBIN TOTAL Latest Ref Range: 0.1 - 1.5 mg/dL 0.6 GLOBULIN Latest Ref Range: 2.1 - 3.8 g/dL 3.0 Pharmacovigilance: Palliative Care: Patient's Medications New Prescriptions No medications on file Modified Medications No medications on file Discontinued Medications No medications on file Procedure: Portions of this chart may have been created with [employer] voice recognition software. Occasi onal wrong-word or [...]
--- OUTSIDE RECORDS SUMMARY | ~2019-06-11 | XMS | Encounter Summary ---
Demographics + + + | Address | [address] | | | [place] [address] | + + + | Home Phone [...] Author | [facility] | + + + | Organization | [facility] | + + + | Address | Unknown | + + + | Phone | Unavailable | + + + Support + + +---------+ + | Name | Relationship | Address | Phone | + + +---------+ + | Darrius Quintana | ECON | Unknown | | + + +---------+ + Care Team Providers + +------+ + | Care Nursery School Teacher Name | Role | Phone [...] 2017 | | Center at [facility] [address] | [address] | Received | | | | [address] | [place], | | | | | Mailcode: [place] | [place] [address] | | | | | for Health and | [phone] | | | | | [facility] [address] | | | | | | [place], [place] | | | | | | [address] | | | | | | [phone] | | | +--------+ + + + [...] | | | | | | [place] [address] | | | | | | [phone] | | | | | | | | +--------+---------+ + + + documented as of this encounter Visit Diagnoses Not on filedocumented in this encounter"
--- OUTSIDE RECORDS SUMMARY | ~2019-06-11 | XMS | Clinical Summary ---
Demographics + + + | Address | [address] | | | [place] [address] | + + + | Home Phone [...] Author + + + | Author | [facility] | + + + | Organization | [facility] | + + + | Address | Unknown | + + + | Phone | Unavailable | + + + Support + + +---------+ + | Name | Relationship | Address | Phone | + + +---------+ + | Darrius Quintana | ECON | Unknown | | + + +---------+ + Care Team Providers + +------+ + | Care Rock Dust Sprayer Name | Role | Phone | + +------+ + | Kristian Anderson DO | PCP | | + +------+ + Source Comments CHAPIN is fully live on both [facility] Ambulatory and [facility] InPatient.[facility] Allergies + + + + + + [...] | | | e | | | [id number]). | | | | | | | | ointment | | | | | | + + + +---------+------+------+-------+ | Ostomy Supplies | Colostomy | 1 each | 11 | 11/0 | | Activ | | misc | [id number]: CO | | | 20 | | e | | | [id number], Skin prep: | | | 18 | | | | | 3M 3344 (30/mo), Adh | | | | | | | | Rem HO 7760 | | | | | | | | (1box/mo), Rings: HO | | | | | | | | 8805 (10/mo), | | | | | | | | Deodorant: [place] [address] | | | | | | | | (60/mo), Pwdr: CT | | | | | | | | [id number] (1oz/mo), | | | | | | | | Belt: Lrg (2/mo) | | | | | | | | and Irrigation CO | | | | | | | | [id number], Sleeve [place] | | | | | | | | [id number] | | | | | | + [...] Heart Attack | Father | | from [place] at age 52 | + + +------+ [...] | | | | | [place], | | | | | | [place] [address] | | | | | | [phone] | | | | | | | [...] | + + + + + | [facility] | [address] | [place] [address] | | | SERVICES, CORE | SUZY [...] | | | | | | | [address] | | + +--------+ +--------+ + +--------+ [...] guerda | | | 8 (Home) | [address] | + +--------+ +--------+ + + Advance [...]
--- OUTSIDE RECORDS SUMMARY | ~2019-06-11 | XMS | Encounter Summary ---
Demographics + + + | Address | [address] | | | [place] [address] | + + + | Home Phone | | + + + | Preferred Language | Unknown | + + + | Marital Status | | + + + | Quaker Affiliation | Unknown | + + + | Race | Unknown | + + + | Ethnic Group | Unknown | + + + Author + + + | Author | [facility] | | | and [place] | + + + | Organization | [facility] | | | and [place] | + + + | Address | Unknown | + + + | Phone | Unavailable | + + + Support + + + + + | Name | Relationship | Address | Phone | + + + + + | Lamar Phillips | REZA | [place] [address] | | + + + + + Care Team Providers + +------+ + | Care Second Vp Hr Assessment Name | Role | Phone | + +------+ + | Kristian Anderson DO | PCP | | + +------+ + Reason for Visit +--------+ + | Reason | Comments | +--------+ + | Other | | +--------+ + Encounter Details +--------+ + + + + | Date | Type | Department | Care Team | Description | +--------+ + + + + | 03/01/ | Telephone | [facility] | Janel, | Other | | 2017 | | MED [facility] | Mike White MD [address] | | | | | [address] | [address] [place] | | | | | [address] [place] | [place] [address] | | | | | [place] [address] | [phone] | | | | | [phone] | | | +--------+ + + + [...]
--- OUTSIDE RECORDS SUMMARY | ~2019-06-11 | XMS | Encounter Summary ---
Demographics + + + | Address | [address] | | | [place] [address] | + + + | Home Phone | | + + + | Preferred Language | Unknown | + + + | Marital Status | Single | + + + | Congregational Affiliation | NON | + + + [...] Team Providers + +------+ + | Care Thermal Cutter Helper Name | Role | Phone | [...] Visit | Medicine Clinic at | R, [facility] [address] | Dx); Rectal cancer | | | | [facility] 4th Floor [address] | (FORMERLY [facility]); Former | | | | [address] | [place], [place] | smoker; Anxiety and | | | | Mailcode: [facility] | [address] | depression; Other | | | | [facility] | [phone] | chronic pain; | | | | and Healing, | | Hypertension, | | | | Building 1,4th Floor | | unspecified type; | | | | [place], [place] | | Diabetes mellitus | | | | [address] | | screening | | | | [phone] | | | +--------+---------+ + + + [...] | | IV | 07/02/17; 1217 | ENGINE REPAIRER SERVICE | | +--------+ + + + | [...] or walk. Surgery check-in location: Admitting - [facility], ninth floor [facility] Surgery Check in Time: The Preoperative Medicine [...] is after office hours, call the [facility] pipeline operator at [phone] and ask them to page him or [...] Ailyn Wolff MD Primary Care Provider: Kristian Andersno DO Reason for Consult: Preoperative evaluation and [...] Chronic low back/left LQ pain - takes Bur[place] 5-325, 1-2 tabs/day Bone spurs in neck [...] fluid and anterior hernia) - 1-2 tabs [place] as needed daily) Chron ic pain > [...] breast Hypertension Mother Heart Attack Father from [place] at age 52 Diabetes Father Heart Attack [...] Chronic low back/left LQ pain - takes [place] 5-325, 1-2 tabs/day. Continue as needed. Bone [...] this patient's care. Zeny Riley NP [facility] PREOPERATIVE MEDICINE CLINIC AT [facility] 4TH FLOOR [address] [place] [address] I counseled the pt regarding [...] | | | | | Suzy Hines [place], | | | | | | [place] [address] | | | | | | [phone] | | | | | | | | +--------+---------+ + + + documented as of this encounter Procedures + +--------+ + + + | Procedure Name | Priori | Date/Time | Associated Diagnosis | Comments | | | ty | | | | + +--------+ + + + | FL COLLECTION VENOUS | Routin | 06/13/2017 | [...] DEPT OF | [address] | [place], [place] | | | CARDIOLOGY | [address] | [address] | | + + + + + [...] [facility] | [address] | [place] [address] | | | SERVICES, | [address] [...] [facility] | [address] | [place] [address] | | | SERVICES, CORE | [address] [...] | [facility] | | considered for monitoring medical terminologist glycemic control in patients with: | LABORATORY [...] [facility] | [address] | [place] [address] | | | SERVICES, SPECIAL | [address] [...] | + + + + + | [facility] | [address] | [place] [address] | | | SERVICES, | [address] [...] [facility] | [address] | [place] [address] | | | SERVICES, | [address] [...] | + + + + + | [facility] | [address] | [place] [address] | | | CAR TELLO | SUZY [...] | | | LABORATORY | | | [facility] | | | SERVICES, | | | [...] + + + + + | [facility] | [address] | [place] [address] | | | SERVICES, CAR | SUZY [...]
--- OUTSIDE RECORDS SUMMARY | ~2019-06-11 | XMS | Encounter Summary ---
Demographics + + + | Address | [address] | | | [place] [address] | + + + | Home Phone | | + + + | Preferred Language | Unknown | + + + | Marital Status | | + + + | Baptist Affiliation | Unknown | + + + | Race | Unknown | + + + | Ethnic Group | Unknown | + + + Author + + + | Author | [facility] | | | and [place] | + + + | Organization | [facility] | | | and [place] | + + + | Address | Unknown | + + + | Phone | Unavailable | + + + Support + + + + + | Name | Relationship | Address | Phone | + + + + + | Lamar Phillips | REZA | [place] [address] | | + + + + + Care Team Providers + +------+ + | Care Stove Polisher Name | Role | Phone | + +------+ + | Kristian Anderson DO | PCP | | + +------+ + Encounter Details +--------+ + + + + | Date | Type | Department | Care Team | Description | +--------+ + + + + | 04/18/ | Hospital | [facility] | Calvin Landrum | Rectal cancer (HCC) | | 2017 | Encounter | [facility] | MD Mike [address] | (Primary Dx) | | | | [facility]COLOGY CLINIC [address] | | | | | [address] | [place] [address] | | | | | [place] [address] | [phone] | | | | | [phone] | | | +--------+ + + + [...] + + + | Blood Pressure | 159/78 | 04/18/2017 8:38 AM | | | | | PDT | | + + + + + | Pulse | 91 | 04/18/2017 8:38 AM | | | | | PDT | | + + + + + | Temperature | 37 C (98.6 F) | 04/18/2017 8:38 AM | | | | | PDT | | + + + + + | Respiratory Rate | 18 | 04/18/2017 8:38 AM | | | | | PDT | | + + + + + | Oxygen Saturation | 97% | 04/18/2017 8:38 AM | | | | | PDT | | + + + + + | Inhaled Oxygen | - | - | | | Concentration | | | | + + + + + | Weight | 74.2 kg (163 lb 9.3 | 04/18/2017 8:38 AM | | | | oz) | PDT | | + + + + + | Height | - | - | | + + + + + | Body Mass Index | 28.08 | 10/18/2016 11:04 AM | | | [...] tablet by | 63 | 0 | 04/04/20 | | | (FLAGYL) 500 MG | [...] tablet by | 30 | 5 | 04/04/20 | | | (K-DUR) 20 mEq ER | mouth Daily for 30 | tablet | | 17 | 7 | | tablet | days. | | | | | + + + +---------+ + + documented as of this encounter Progress Notes Calvin Landrum MD - 04/18/2017 8:53 AM PDTFormatting of this note might be diff erent from the original. Hem-Onc Progress Note [facility] Pt. Name/Age/: Jenn Parada 56 y.o. 1960 Med. Record Number: [id number] Date of admission: 04/18/2017 Assessment and plan: 1. Locally advanced rectal carcinoma A discussion today first noting overall increase in discomfort parallel to increase in drai n output of uncertain significance. Patient describes earlier improvement in symptoms durin g time of chemoradiotherapy but now increasing symptoms thereafter. Patient received a new prescription today for hydrocodone 11/24/24 #100 to help control discomfort. Go-ahead with this third cycle of postradiation FOLFOX chemotherapy using a dose adjustment of 25% 4 worsening sensory neuropathy. Two-week follow-up Subjective: The patient chart and medications were reviewed in detail and the patient was seen and exam ined. Jenn Parada is a 56 y.o. female returns today to continue a third cycle of a program of neoadjuvant FOLFOX chemotherapy in conjunction with earlier induction chemo, chemoradiot herapy for locally advanced rectal cancer. Interim history he notes more in the way of symptoms potentially referable to patient's maxi or as well as worsening toxicity from FOLFOX chemotherapy. Patient describes that within th e past 2 weeks she is using more of her hydrocodone. She like to be able to control her jayant n with ibuprofen but finds that the discomfort, centered over the left sacroiliac region is more than she can stand without opiate analgesia. Part of this is related to her job which requires her to stand for periods of up to 5 hours. Patient is also noticing an increase in drainage from her drain describing a surgeon drainage the other day. She believes the pres sure builds up may be accounting for her discomfort. Patient also describes increasing symptoms of neuropathy. These remain confined to sensory mostly in the small digits of the hands and feet and so far have not affected motor activit ies. She describes the other day drinking a cold beverage and then "ice sylvia going down" to described the feeling of swallowing. PSH: Reviewed, no changes to admission H&P. Past Medical History: Diagnosis Date Hyperlipidemia Hypertension Nephrolithiasis Squamous cell carcinoma of vulva (HCC) Review of Systems: Constitutional: Denies high fevers, shaking chills, anorexia, vomiting, weight loss. Cristina etite without changes. States fatigue not sleeping much maybe 4-5 hours a night. States valeriy sea but isn't as bad as time before last tx. Night sweats reported. Ear, Nose, Mouth, Throat: Denies odynophagia, dysphagia, or tinnitus. Cardiovascular: Denies shortness of breath, dyspnea on exertion, chest pain, palpitations o r orthopnea. Respiratory: Denies cough, hemoptysis, or sputum production. Gastrointestinal: Denies abdominal pain, constipation, diarrhea, melena, or bright red bloo d per rectum. Pain around the ostomy site, states she doesn't feel like its completely emptying. States fluid retention in the abdomin. States upon pres sing on her abdomin fill the ostomy bag will fill. Intermittent pink liquid in bag and at ti mes black. States having an accident in her bed last night. Genitourinary: Denies hematuria or dysuria. Musculoskeletal: Denies joint pain or tenderness. Neurologic: Denies headache, visual changes, or numbness/tingling of the extremities. State s waking up a few times with headaches. Endocrine: Denies peripheral edema or heat/cold intolerance. Hematologic: Denies spontaneous bruising or bleeding. States concern with bruising on her r ight forearm. Integumentary: Denies rash, wounds or other skin concerns. Fungus around the ostomy site, s tates being tx for this by Dr. Thacker in [place]. Pain: Denies pain. Review of systems as above otherwise negative Scheduled Medications: Continuous Infusions: PRN Meds:. Allergy: Allergies Allergen Reactions Propoxyphene Na Ferric Gluc Cplx In Sucrose Nausea Only and Other (See Comments) Flushing and diaphoretic Current Outpatient Prescriptions on File Prior to Encounter Medication Sig Dispense Refill ALPRAZolam (XANAX) 0.5 [...] Once a week. CRANBERRY EXTRACT PO Take 4,200 mg by mouth. dexamethasone (DECADRON) 4 mg tablet [...] for Anxie ty (Nausea/vomiting/restlessness). 60 tablet 2 metroNIDAZOLE (FLAGYL) 500 MG tablet Take 1 [...] tablet by mouth Daily for 30 days. ( Patient taking differently: Take 20 mEq by mouth 2 times daily.) 30 tablet 5 No current facility-administered medications on file prior to encounter. Objectives: Temp: 37 C (98.6 F) BP: 159/78 Pulse: 91 Resp: 18 SpO2: 97 % on Min/Max Temp past 24 hours:Temp Av C (98.6 F) Min: 37 C (98.6 F) Max: 37 C (98.6 F) No intake or output data in the 24 hours ending 04/18/17 0853 Wt. Admission: Weight: 74.2 kg (163 lb 9.3 oz) Wt. Current: Weight: 74.2 kg (163 lb 9.3 oz) Physical Exam: Exam: General: The patient is alert and oriented. No acute distress. HEENT: PERRL, Oral mucosa intact. Neck is supple. Breast: Not examined Abdomen: Abdomen compliant. Left lower quadrant drain actively draining feculent appearin g material. Genitourinary: Deferred. Extremities: Nontender, no erythema, no edema. Skin: No rashes, bruising, or petechiae. Lymph: No palpable nodes in the neck, supraclavicular fossa, axilla or groin. Neurological: Cranial nerves are intact. Normal sensory and motor function, No focal defi cits noted. Muscular/Skeletal: No acute bony tenderness. Psychiatric: Normal mood and affect. Diagnostic studies: Available data and images were reviewed personally. See reports. Significant results and findings are addressed here or in the Assessment and Plan. Recent Labs Lab 04/18/17 0802 WBC 6.3 HGB 10.9* HCT 32.8* PLT 280 Electronically signed by: Calvin Landrum, 04/18/2017 8:53 [facility] TIME SPENT 25 MIN. > 50% AT BEDSIDE, WITH FAMILY/PATIENT IN CARE AND FOUNDRY PROCESS ENGINEER ON UNIT AND CO ORDINATION OF CARE Portions of this chart may have been created with [employer] voice recognition software. Occasi onal wrong-word or sound-alike substitutions may have occurred due to the inherent leung itations of voice recognition software. Please read the chart carefully and recognize, using context, where these substitutions have occurred. Sheila Villalpando CMA - 04/18/2017 8:41 AM PDTREVIEW O F SYSTEMS Constitutional: Denies high fevers, shaking chills, anorexia, vomiting, weight loss. Cristina etite without changes. States fatigue not sleeping much maybe 4-5 hours a night. States valeriy sea but isn't as bad as time before last tx. Night sweats reported. Ear, Nose, Mouth, Throat: Denies odynophagia, dysphagia, or tinnitus. Cardiovascular: Denies shortness of breath, dyspnea on exertion, chest pain, palpitations o r orthopnea. Respiratory: Denies cough, hemoptysis, or sputum production. Gastrointestinal: Denies abdominal pain, constipation, diarrhea, melena, or bright red bloo d per rectum. Pain around the ostomy site, states she doesn't feel like its completely emptying. States fluid retention in the abdomin. States upon pres sing on her abdomin will cause ostomy bag to fill. Intermittent pink liquid in ostomy bag and at times black. States having an accident in her bed last night. Genitourinary: Denies hematuria or dysuria. Musculoskeletal: Denies joint pain or tenderness. Neurologic: Denies headache, visual changes, or numbness/tingling of the extremities. State s waking up a few times with headaches. Endocrine: Denies peripheral edema or heat/cold intolerance. Hematologic: Denies spontaneous bruising or bleeding. States concern with bruising on her r ight forearm. Integumentary: Denies rash, wounds or other skin concerns. Fungus around the ostomy site, s tates being tx for this by Dr. Thacker in [place]. Pain: Denies pain. Note: Pt is here to see Dr. Landrum. (Dr. Islas out today). Labs drawn prior. My chart: Active documented in this encounter Plan of Treatment Not on filedocumented as of this encounter Visit Diagnoses + + | Diagnosis | + + | Rectal cancer (HCC) - Primary Malignant neoplasm of rectum | + + documented in this encounter
--- OUTSIDE RECORDS SUMMARY | ~2019-06-11 | XMS | Encounter Summary ---
Demographics + + + | Address | [address] | | | [place] [address] | + + + | Home Phone | | + + + | Preferred Language | Unknown | + + + | Marital Status | | + + + | Yazidism Affiliation | Unknown | + + + | Race | Unknown | + + + | Ethnic Group | Unknown | + + + Author + + + | Author | [facility] | | | and [place] | + + + | Organization | [facility] | | | and [place] | + + + | Address | Unknown | + + + | Phone | Unavailable | + + + Support + + + + + | Name | Relationship | Address | Phone | + + + + + | Lamar Phillips | REZA | [place] [address] | | + + + + + Care Team Providers + +------+ + | Care Land Surveying Survey Worker Name | Role | Phone | + +------+ + | Kristian Anderson DO | PCP | | + +------+ + Reason for Referral Diagnostic/Screening (Routine) +--------+--------+ + + + + | Status | Reason | Specialty | Diagnoses / | Referred By | Referred To | | | | | Procedures | Contact | Contact | +--------+--------+ + + + + | Closed | | Radiology | Diagnoses | | OP [facility] | | | | | Rectal | Jan[facility] | [facility] | | | | | cancer (HCC) | [facility], | [facility] | | | | | Procedures | MD [address] | | | | | CT Chest | [address] | [address] | | | | | Abdomen | [place], | [place], [place] | | | | | Pelvis w | [place] [address] | [address] | | | | | Contrast | Phone: | Phone: | | | | | | [phone] | [phone] | | | | | | Fax: | Fax: | | | | | | [phone] | [phone] | +--------+--------+ + + + + Diagnostic/Screening (Routine) +--------+--------+ + + + + | Status | Reason | Specialty | Diagnoses / | Referred By | Referred To | | | | | Procedures | Contact | Contact | +--------+--------+ + + + + | Closed | | Radiology | Diagnoses | | OP [facility] | | | | | Rectal | [facility] | [facility] | | | | | cancer (HCC) | [facility] White, | [facility]OS[facility] | | | | | Procedures | MD [address] | | | | | MRI Pelvis | [address] | [address]VE | | | | | | [place], | [place], [place] | | | | | Gynecologica | [place] [address] | [address] | | | | | l w wo | Phone: | Phone: | | | | | Contrast | [phone] | [phone] | | | | | | Fax: | Fax: | | | | | | [phone] | [phone] | +--------+--------+ + + + + Reason for Visit + + + | Reason | Comments | + + + | Follow-up | | + + + Encounter Details +--------+ + + + + | Date | Type | Department | Care Team | Description | +--------+ + + + + | 09/05/ | [facility] | [facility] | Janel, | Rectal cancer (HCC) | | 2018 | Encounter | [facility] | Sirena White MD [address] | (Primary Dx) | | | | ONCOLOGY CLINIC [address] | [address] | | | | | [address] | [place] [address] | | | | | [place] [address] | [phone] | | | | | [phone] | | | +--------+ + + + [...] + + + | Blood Pressure | 125/65 | 09/05/2017 9:57 AM | | | | | PST | | + + + + + | Pulse | 98 | 09/05/2017 9:57 AM | | | | | PST | | + + + + + | Temperature | 36.3 C (97.3 F) | 09/05/2017 9:57 AM | | | | | PST | | + + + + + | Respiratory Rate | 18 | 09/05/2017 9:57 AM | | | | | PST | | + + + + + | Oxygen Saturation | 97% | 09/05/2017 9:57 AM | | | | | PST | | + + + + + | Inhaled Oxygen | - | - | | | Concentration | | | | + + + + + | Weight | 72.4 kg (159 lb 9.8 | 09/05/2017 9:57 AM | | | | oz) | PST | | + + + + + | Height | - | - | | + + + + + | Body Mass Index | 27.4 | 10/18/2016 11:04 AM | | | [...] tablet by | 60 | 2 | //20 | | | 1 mg tablet | [...] encounter Progress Notes Sirena Helton MD - 09/05/2017 9:42 AM PSTFormatting of this note might be differe nt from the original. Hematology/Oncology Progress Note [facility] [place] Pt. Name/Age/: Paulette Byrnes 56 y.o. 1960 [facility]. Record Number: [id number] Date of admission: 09/05/2017 The patient's primary care provider is Kristian Anderson DO. Identifying Statement: Paulette Byrnes is a 56 y.o. female from [address] [place] [address] with Locally Advanced Rectal Cancer. The patient chart and medications were reviewed in detail and the patient was seen and exam ined. History of Present Illnesses, their Current Assessments and Plans: Problem List Rectal cancer Overview ACTIVE DIAGNOSIS: Locally Advanced Rectal Cancer, [id number], Stage IIA. 1Jame Barajas presented to the [facility] emergency room on July 20, 2016 with [...] cm within the rectum. Biopsy specimen number [id number] evaluated by Dr. Felipe Nixon of [facility] was notable for a tubular adenoma without high-grade dysplasia or overt carcinoma. This proced ure also included a full colonoscopy through the ostomy were 2 additional polyps were remove d, a tubular adenoma at 35 cm and a hyperplastic polyp at [address] C/A/P at [facility] in [place], [place] demonstrated no evidence of metastatic disease. 4. On September 22, 2016 Dr. Thacker placed in internal jugular Port-A-Cath without complications. 5. MRI of pelvis performed on October 05, 2016 at [facility]: Rectal mass 7.7 cm x 6.2 cm x 9.6 cm in length located within 3 cm of the anal sphincter and 6.4 cm from the anal verge with radi ographic extension though multiple areas of the bowel wall. 6. CT abdomen/pelvis also at [facility] October 05, 2016; large almost completely circumferential r ectosigmoid mass better delineated on the corresponding MRI with adjacent probable abscess. No distant metastases identified. 7. On October 14, 2016 Paulette was evaluated by Dr. Ailyn Wolff and Dr. Shea Mcneill of the [facility] where her case was presented to their tumor board. Clinical exa m is notable for an overt rectal carcinoma invading into the vagina. 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 Concerns raised by the [facility] Tumor Board were that the [...] as well as mutation analysis." Pathological Specimen #[id number] ([facility]). Tubulovillous adenoma with high grade dysplasia [...] radiation. 14. Multidisciplinary Care Team Conference at [facility] March 10, 2017; "Given borderline resec tability, [...] resection by Dr. Ailyn Wolff at the [facility]: 06/30/17: Exploratory laparoto my. Extensive lysis of adhesions. Excision of left lower quadrant fistula tract. Total mesor ectal excision, intersphincteric abdominoperineal resection, en bloc resection of left ovary and left fallopian tube and posterior vaginal wall. Placement of a 19-Cuban Albert drain th rough the right lower [...] 21. Gynecological exam on August 12, 2017; Dr. Lea, [facility], [place], [place] ; positive for perianal fistula between anus and vagina. 22. Clinical exam on August 22, [address] Ailyn Wolff at [facility] who could not confirm the prese nce of perianal fistula. 23. Cycle # 11 FOLFOX on August 23, 2017. Current Assessment & Plan Paulette Byrnes returned to clinic on 09/05/2017 alone for follow-up of her locally adv anced rectal cancer. Interval history is notable for the fact that Paulette was approved for disability. Review of systems is notable for progressive decrease in sacral pain, now only using 3-4 ox ycodone a week. Clinical exam is unchanged. Laboratory exam is notable for grade 1 anemia, without thrombocytopenia or neutropenia. Assessment; Locally advanced rectal cancer status post R1 resection. Plan; Proceed with Cycle #12 (last) FOLFOX chemotherapy. MRI of pelvis and CT chest/abdomen /pelvis at [facility] in about a month, clinical and laboratory followup with port flush at [facility] in 2 months. Follow up with Dr. Ailyn Wolff at [facility] in [place] on November 14, 2017. Review of Systems: REVIEW OF SYSTEMS Constitutional: Reports energy level is about the same as last visit, "maybe a little evan r". Reports occasional nausea, 1-2 times a week, has improved since last visit, taking medic ation as prescribed, and states it has helped. Denies high fevers, shaking chills, anorexia, vomiting, weight loss, or night sweats. Appetite without changes. Ear, Nose, Mouth, Throat: Reports sores on lip continues, unchanged. Denies dysphagia or ti nnitus. Cardiovascular: Reports shortness of breath with exertion, continues, unchanged. Reports oc casional palpitations, unchanged. Denies shortness of breath, chest pain, or orthopnea. Respiratory: Denies cough, hemoptysis, or sputum production. Gastrointestinal: Reports occasional abdominal pain "only when I get constipated". Reports intermittent constipation and diarrhea, "better than before, learning what to eat and not to eat". Denies melena, or bright red blood per rectum. Genitourinary: Denies hematuria or dysuria. Musculoskeletal: Denies joint pain or tenderness. Neurologic: Reports daily headaches continue in the mornings, unchanged. Reports feet are s till tingling in toes, unchanged. Denies visual changes. Endocrine: Denies peripheral edema or heat/cold intolerance. Hematologic: Denies spontaneous bruising or bleeding. Integumentary: Denies rash, wounds or other skin concerns. Pain: Denies pain. Note: Here for follow up, labs, and treatment. Would like to know when it would be okay for her to start volunteering, thinking of volunte ering at [employer]. My chart: Active Scheduled Medications: Current Outpatient [...] PO Take 4,200 mg by mouth Daily. dexamethasone (DECADRON) 4 mg tablet Take 4 mg by mouth 2 times daily (with breakfast & dinner). Takes day 2-3 after chemotherapy treatment. ibuprofen (ADVIL, MOTRIN) 200 mg tablet Take [...] every 6 hours as needed for Pain. PHENYLEPHRINE HCL PO Take 1 tablet by mouth as needed. 1 tablet every 4 hours as needed for cough. potassium chloride (K-DUR) 20 mEq ER tablet Take 20 mEq by mouth Daily. No current facility-administered medications for this encounter. Facility-Administered Medications Ordered in Other Encounters Medication Dose Route Frequency Provider Last Rate Last Dose ethyl chloride spray Topical PRN Sirena Helton MD fluorouracil 4,350 mg in sodium chloride 0.9% 7 mL CADD PUMP infusion 2,400 mg/m2 (Micah atment Plan Recorded) Intravenous Q46H Sirena Helton MD 4,350 mg at 09/05/17 1328 Allergies: Allergy: Allergies Allergen Reactions Propoxyphene Na [...] Diagnosis Rectal cancer Lichen sclerosus Objectives: Temp: 36.3 C (97.3 F) BP: 125/65 Pulse: 98 Resp: 18 SpO2: 97 % on Min/Max Temp past 24 hours:Temp Av.3 C (97.3 F) Min: 36.3 C (97.3 F) Max: 3 6.3 C (97.3 F) No intake or output data in the 24 hours ending 09/05/171951 Wt. Admission: Weight: 72.4 kg (159 lb 9.8 oz) Wt. Current: Weight: 72.4 kg (159 lb 9.8 oz) Wt Readings from Last 3 Encounters: 09/05/17 72.4 kg (159 lb 9.8 oz) 08/23/17 71.8 kg (158 lb 4.6 oz) 08/15/17 71.6 kg (157 lb 13.6 oz) Physical Exam: General: The patient is [...] erythema. Extremities: Nontender, no erythema, no edema. Skin: [...] J. Clin. Oncol.: John Paul Baer., Jumana, RJameH., Fransisca Baltazar., Chayito Roque., Thaddeus, TLuis Alfredo., Jyoti E.T., Marcus Santos.: Toxicity And Response Criteria Of The Eastern [...] for PAULETTE BYRNES ( ) as of 09/05/2017 19:46 Ref. Range 09/05/2017 09:13 WBC Latest Ref Range: 4.0 - 11.0 K/uL 7.0 RBC COUNT Latest Ref Range: 3.70 - 5.20 M/uL 3.94 Hgb Latest Ref Range: 11.5 - 16.0 g/dL 10.1 (L) Hct, Final Latest Ref Range: 34.0 - 47.0 % 31.4 (L) MCV Latest Ref Range: 83.0 - 101.0 fL 79.7 (L) MCH Latest Ref Range: 28.0 - 35.0 pg 25.6 (L) MCHC Latest Ref Range: 32.0 - 36.0 g/dL 32.2 RDW-CV Latest Ref Range: <15.0 % 20.7 (H) Platelet Count Latest Ref Range: 140 - 440 K/uL 381 MPV Latest Units: fL 6.4 Absolute Neutrophils Latest Ref Range: 1.80 - 8.50 K/uL 5.80 Absolute Lymphocytes Latest Ref Range: 0.60 - 3.20 K/uL 0.50 (L) Absolute Monocytes Latest Ref Range: 0.00 - 1.00 K/uL 0.40 Absolute Eosinophils Latest Ref Range: 0.00 - 0.40 K/uL 0.20 Absolute Basophils Latest Ref Range: 0.00 - 0.10 K/uL 0.10 % Neutrophils Latest Ref Range: 45.0 - 82.0 % 83.5 (H) % Lymphocytes Latest Ref Range: 20.0 - 45.0 % 7.3 (L) % Monocytes Latest Ref Range: 4.0 - 12.0 % 5.1 % Eosinophils Latest Ref Range: 0.0 - 5.0 % 3.3 % Basophils Latest Ref Range: 0.0 - 1.0 % 0.8 NA Latest Ref Range: 136 - 149 mmol/L 142 K Latest Ref Range: 3.5 - 5.1 mmol/L 3.9 Chloride Latest Ref Range: 98 - 109 mmol/L 106 Carbon dioxide Latest Ref Range: 24 - 31 mmol/L 26 ANION GAP Latest Ref Range: 3 - 16 mmol/L 10 GLUCOSE Latest Ref Range: 70 - 109 mg/dL 131 (H) BUN Latest Ref Range: 7 - 18 mg/dL 10 Creatinine Latest Ref Range: 0.60 - 1.30 mg/dL 0.56 (L) BUN/CREA Unknown 17.9 ALBUMIN Latest Ref Range: 3.2 - 5.0 g/dL 2.8 (L) Albumin/Globulin ratio Latest Ref Range: 0.8 - 2.0 0.9 Total protein Latest Ref Range: 6.0 - 7.8 g/dL 6.0 EGFR IF NOT Latest Ref Range: >=60 mL/min/1.73m2 >60 Calcium Latest Ref Range: 8.3 - 10.5 mg/dL 8.9 ALK PHOS Latest Ref Range: 40 - 110 U/L 100 ALT (SGPT) (REF) Latest Ref Range: 6 - 45 U/L 35 AST (SGOT) (REF) Latest Ref Range: 10 - 42 U/L 34 LDH TOTAL Latest Ref Range: 91 - 180 U/L 148 BILIRUBIN TOTAL Latest Ref Range: 0.1 - 1.5 mg/dL 0.3 GLOBULIN Latest Ref Range: 2.1 - 3.8 g/dL 3.2 Pharmacovigilance: Results for PAULETTE BYRNES ( ) as of 08/15/2017 17:38 Ref. Range 08/15/2017 09:26 ABO Unknown O Rh Type Unknown Positive Antibody Screen Unknown Negative Palliative Care: Patient's Medications New Prescriptions No medications on file Modified Medications No medications on file Discontinued Medications No medications on file Procedure: Day 1, cycle 12 (14-day cycle) Completed; Released on 09/05/2017; Originally planned for 09/05/2017 Labs Comprehensive Metabolic Panel STAT, ONE TIME, 09/05/17 at 0913, For 1 occurrence OrderHistory CBC with Differential STAT, ONE TIME, 09/05/17 at 0913, For 1 occurrence OrderHistory Lactate Dehydrogenase STAT, ONE TIME, 09/05/17 at 0913, For 1 occurrence OrderHistory PRN Medications ethyl chloride spray Topical, PRN, Pain, Starting 09/05/17 at 0912 OrderHistory LORazepam (ATIVAN) 2 mg/mL injection 0.5-1 mg (Not Released) 0.5-1 mg (original dose 0.5-1 mg), Intravenous, PRN, Anxiety, Nausea/Vomiting, Starting wh en released, for 1 dose Administer prior to chemotherapy. OrderHistory heparin 100 units/mL flush injection 500 Units (Not Released) 500 Units (5 mL), Intercatheter, PRN, Line Care, Starting when released, Until Discontinue d OrderHistory Nursing Orders OK to proceed with chemotherapy (Not Released) 09/05/17 - INFORMED CONSENT: The nature and character of the proposed treatment with Cycle#12 FOLFOX a nd the anticipated results of the proposed treatment with Cycle#12 FOLFOX;recognized altern ative forms of treatment, including non-treatment; the risks benefits, and side effects of p roposed treatment, alternative treatments and non-treatment were discussed with the patient who consents to proceed with treatment with Cycle#12 FOLFOX. The treating provider has exam ined the patient and reviewed the diagnostic data, including laboratory data, and deems that it is safe and appropriate to proceed with treatment with Cycle#12 FOLFOX.Electronically s igned by: SIRENA HELTON MD 09/05/2017 10:23. OrderHistory Plans for discharge (Not Released) LAST ONE++ SHE WILL BE GETTING HER PUMP OFF IN [place] let them know time she will be there on 09/07. Schedule MRI pelvis and CT [facility]A/[facility] at [facility]. Schedule QFU RN port draw for lab in [place] in 2 months. OrderHistory Pre-Medications dexamethasone (DECADRON) tablet 4 mg 4 mg, Oral, ONCE, Tue09/05/17 at 1100, For 1 dose OrderHistory palonosetron (ALOXI) injection 0.25 mg 0.25 mg, Intravenous, ONCE, Tue09/05/17 at 1100, For 1 dose Give IV push over 30 seconds. Flush with saline before and after giving. OrderHistory CHEMOTHERAPY oxaliplatin (ELOXATIN) 115 mg in dextrose 5% 250 mL infusion 115 mg (rounded from 115.84 mg = 64 mg/m2 1.81 m2 Treatment plan recorded BSA), Intrave nous, Administer over 2 Hours, ONCE, Tue09/05/17 at 1130, For 1 dose Chemotherapy: Use appropriate handling precautions. Not compatible with NS or any chloride- containing solutions. Flush line with D5W prior to giving any other meds. Administer via y- site with leucovorin. OrderHistory leucovorin 360 mg in dextrose 5% 250 mL infusion 360 mg (rounded from 362 mg = 200 mg/m2 1.81 m2 Treatment plan recorded BSA), Intraveno us, Administer over 2 Hours, ONCE, Tue09/05/17 at 1130, For 1 dose Administer via y-site with oxaliplatin OrderHistory fluorouracil 4,350 mg in sodium chloride 0.9% 7 mL CADD PUMP infusion 4,350 mg (rounded from 4,344 mg = 2,400 mg/m2 1.81 m2 Treatment plan recorded BSA), Int ravenous, Administer over 46 Hours, EVERY 46 HOURS, First dose on Tue09/05/17 at 1330 OUTPATIENT Chemotherapy: Use appropriate handling precautions. Protect from light. Start Da y 1, disconnect Day 3. OrderHistory Portions of this chart may have been created with [employer] voice recognition software. Occasi onal wrong-word or sound-alike substitutions may have occurred due to the inherent leung itations of voice recognition software. Please read the chart carefully and recognize, using context, where these substitutions have occurred. documented in t his encounter Plan of Treatment + +---------+--------+ + + | Name | Type | Priori | Associated Diagnoses | Order Schedule | | | | ty | | | + +---------+--------+ + + | MRI Pelvis | Imaging | Routin | Rectal cancer | Expected: | | Gynecological w wo | | e | (HCC) | 09/05/2017, Expires: | | Contrast | | | | 09/05/2018 | + +---------+--------+ + + | CT Chest Abdomen | Imaging | Routin | Rectal cancer | Expected: | | Pelvis w Contrast | | e | ([facility]) | 09/05/2017, Expires: | | | | | | 09/05/2018 | + +---------+--------+ + + documented as of this encounter Procedures + +--------+ + + + | Procedure Name | Priori | Date/Time | Associated Diagnosis | Comments | | | ty | | | | + +--------+ + + + | IMAGING REPORT - | | 09/26/2017 | | Results for this | | EXTERNAL SCAN | | 12:00 AM | | procedure are in the | | | | PST | | results section. | + +--------+ + + + documented in this encounter Results CEA (10/31/2017 1:08 PM PDT) + +-------+ + + + | Component | Value | Ref Range | Performed | Pathologist | | | | | At | Signature | + +-------+ + + + | CEA | 1.3 | 0.0 - 10.0 | [facility] | [...] | [address] | [place] | [phone] | | [facility] | | [address] | | | - LABORATORY | | | | + + + + + Lactate Dehydrogenase (10/31/2017 1:08 PM PDT) + +-------+ + + + [...] ST. | [address] | [place] | [phone] | | [facility] | | [address] | | | - LABORATORY | | | | + + + + + Comprehensive Metabolic Panel (10/31/2017 1:08 PM PDT) + + + + + [...] + + + + | CO2 | 28 | 24 - 31 mmol/L | [facility] [...] + + + + | Glucose | 82 | 70 - 109 mg/dL | [facility] [...] 0.56 (L) | 0.60 - 1.30 | [facility] | | | | | mg/dL | [facility] | | | | | | MEDICAL | | | | | | CENTER - | | | | | | LABORATORY | | + + + + + + | eGFR if not | >60Comment: GLOMERULAR | >=60 | [facility] | | | | FILTRATION | mL/min/1.73m2 | [facility] | | | DUTCH | RATE,ESTIMATED | | MEDICAL | | | | mL/min/1.63s0Fxgu than | | CENTER - | | [...] + + + + | Calcium | 9.1 | 8.3 - 10.5 | [facility] | | | | | mg/dL | [facility] | | | | | | MEDICAL | | | | | | CENTER - | | | | | | LABORATORY | | + + + + + + | Albumin | 3.2 | 3.2 - 5.0 g/dL | [facility] | | | | | | [facility] | | | | | | [facility]ICAL | | | | | | CENTER - | | | | | | LABORATORY | | + + + + + + | Bilirubin | 0.4Comment: This is an | 0.1 - 1.5 [...] + + + + | AST | 31Comment: This is an | 10 - 42 [...] + + + + | ALT | 31Comment: This is an | 6 - 45 [...] + + + + | Alkaline | 116 (H)Comment: This is | 40 - 110 [...] + + + + | Albumin/Keyona | 1.1 | 0.8 - 2.0 | [facility] | | | bulin Ratio | | | [facility] | | | | | | [facility] | | | | | | CENTER - | | | | | | LABORATORY | | + + + + + + | BUN/Creatin | 21.4 | | [facility] | | | ine [...] [address] | [place] | [phone] | | [facility] | | [address] | | | - LABORATORY | | | | + + + + + CBC w/ Auto Differential (10/31/2017 1:08 PM PDT) + + + + + + | Component | Value | Ref Range | Performed | Pathologist | | | | | At | Signature | + + + + + + | WBC | 5.3 | 4.0 - 11.0 K/uL | [facility] | | | | | | [facility] | | | | | | MEDICAL | | | | | | CENTER - | | | | | | LABORATORY | | + + + + + + | RBC | 4.07 | 3.70 - 5.20 | [facility] | | | | | M/uL | [facility] | | | | | | MEDICAL | | | | | | CENTER - | | | | | | LABORATORY | | + + + + + + | Hemoglobin | 11.0 (L) | 11.5 - 16.0 | [facility] | | | | | g/dL | [facility] | | | | | | MEDICAL | | | | | | CENTER - | | | | | | LABORATORY | | + + + + + + | Hematocrit | 33.7 (L) | 34.0 - 47.0 % | [facility] | | | | | | [facility] | | | | | | MEDICAL | | | | | | CENTER - | | | | | | LABORATORY | | + + + + + + | MCV | 82.8 (L) | 83.0 - 101.0 fL | [facility] | | | | | | [facility] | | | | | | MEDICAL | | | | | | CENTER - | | | | | | LABORATORY | | + + + + + + | MCH | 27.0 (L) | 28.0 - 35.0 pg | [facility] | | | | | | [facility] | | | | | | MEDICAL | | | | | | CENTER - | | | | | | LABORATORY | | + + + + + + | MCHC | 32.6 | 32.0 - 36.0 | [facility] | | | | | g/dL | [facility] | | | | | | MEDICAL | | | | | | CENTER - | | | | | | LABORATORY | | + + + + + + | RDW-CV | 19.2 (H) | <15.0 % | [facility] | | | | | | [facility] | | | | | | MEDICAL | | | | | | CENTER - | | | | | | LABORATORY | | + + + + + + | Platelet | 365 | 140 - 440 K/uL | [facility] [...] + + + + | % | 72.9 | 45.0 - 82.0 % | [facility] | | | Neutrophils | | | [facility] | | | | | | MEDICAL | | | | | | CENTER - | | | | | | LABORATORY | | + + + + + + | % | 13.7 (L) | 20.0 - 45.0 % | [facility] | | | Lymphocytes | | | [facility] | | | | | | MEDICAL | | | | | | CENTER - | | | | | | LABORATORY | | + + + + + + | % Monocytes | 8.9 | 4.0 - 12.0 % | [facility] [...] + + + + | Absolute | 3.80 | 1.80 - 8.50 | [facility] | [...] [address] | [place] | [phone] | | [facility] | | [address] | | | - LABORATORY | | | | + + + + + IMAGING REPORT - EXTERNAL SCAN (09/26/2017 12:00 AM PST) + + + | [...]
--- OUTSIDE RECORDS SUMMARY | ~2019-06-11 | XMS | Encounter Summary ---
Demographics + + + | Address | [address] | | | [place] [address] | + + + | Home Phone | | + + + | Preferred Language | Unknown | + + + | Marital Status | Single | + + + | Confucianism Affiliation | NON | + + + [...] Team Providers + +------+ + | Care Enterprise Integration Architect Name | Role | Phone | + +------+ + | Kristian Anderson DO | PCP | | + +------+ + Encounter Details +--------+ + + + + | Date | Type | Department | Care Team | Description | +--------+ + + + + | 05/17/ | Document-Sc | Health Information | Unknown . | | | 2017 | anned | Services [address] | | | | | | [address] | | | | | | Mailcode: [id number] | | | | | | [facility] | | | | | | [place], [place] | | | | | | [address] | | | | | | [phone] | | | +--------+ + + + [...] | | | | | [place], | | | | | | [place] [address] | | | | | | [phone] | | | | | | | [...]
--- OUTSIDE RECORDS SUMMARY | ~2019-06-11 | XMS | Encounter Summary ---
Demographics + + + | Address | [address] | | | [place] [address] | + + + | Home Phone | | + + + | Preferred Language | Unknown | + + + | Marital Status | | + + + | Hinduism Affiliation | Unknown | + + + | Race | Unknown | + + + | Ethnic Group | Unknown | + + + Author + + + | Author | [facility] | | | and [place] | + + + | Organization | [facility] | | | and [place] | + + + | Address | Unknown | + + + | Phone | Unavailable | + + + Support + + + + + | Name | Relationship | Address | Phone | + + + + + | Lamar Phillips | REZA | [place] [address] | | + + + + + Care Team Providers + +------+ + | Care Solutions Sales Consultant Name | Role | Phone | [...] | +--------+ + + + + | 05/02/ | Hospital | [facility] | [facility], | Rectal cancer (HCC) | | 2017 | Encounter | [facility] | Sirena White MD [address] | | | | | ON[facility]OGY CL[facility] [address] | [facility] | | | | | [address] [facility] | [place] [address] | | | | | [place] [address] | [phone] | | | | | [phone] | | | +--------+ + + + [...] + + + | Blood Pressure | 142/89 | 05/02/2017 9:29 AM | | | | | PDT | | + + + + + | Pulse | 92 | 05/02/2017 9:29 AM | | | | | PDT | | + + + + + | Temperature | 35.3 C (95.6 F) | 05/02/2017 9:29 AM | | | | | PDT | | + + + + + | Respiratory Rate | 18 | 05/02/2017 9:29 AM | | | | | PDT | | + + + + + | Oxygen Saturation | 99% | 05/02/2017 9:29 AM | | | | | PDT | | + + + + + | Inhaled Oxygen | - | - | | | Concentration | | | | + + + + + | Weight | 73.5 kg (162 lb 0.6 | 05/02/2017 9:29 AM | | | | oz) | PDT | | + + + + + | Height | - | - | | + + + + + | Body Mass Index | 27.81 | 10/18/2016 11:04 AM | | | | | PDT | | + + + + + documented in this encounter Discharge Instructions Sirena Mayer MD - 05/02/2017Pick up fluconazole at [facility] and take o ne pill a day for 14 days. documented in this encounter Medications at Time [...] encounter Progress Notes Sirena Helton MD - 05/02/2017 9:34 AM PDTFormatting of this note might be differe nt from the original. Hematology/Oncology Progress Note [facility] LETY Cheema Pt. Name/Age/: Paulette Byrnes 56 y.o. 1960 Med. Record Number: [id number] Date of admission: 05/02/2017 The patient's primary care provider is Kristian Kargar, DO. Identifying Statement: Paulette Byrnes is a 56 y.o. female from [address] [place] [address] [place] [facility] with Locally Advanced Rectal Cancer. The patient chart and medications were reviewed in detail and the patient was seen and exam ined. History of Present Illnesses, their Current Assessments and Plans: Problem List Rectal cancer Overview ACTIVE DIAGNOSIS: Locally Advanced Rectal Cancer. 1. Paulette presented to the [facility] [...] samples were obtained from this procedure. The pa ana maría was discharged and allowed to recover. 2. Repeat evaluation by Dr. Thacker with colonoscopy on September 02, 2016 included a rigid pro ctoscopy that demonstrated a circumferential rectal tumor at 6 cm within the rectum. Biopsy specimen number [id number] evaluated by Dr. Felipe Nixon of [facility] was notable for a tubular adenoma without high-grade dysplasia or overt carcinoma. This proced ure also included a full colonoscopy through the ostomy were 2 additional polyps were remove d, a tubular adenoma at 35 cm and a hyperplastic polyp at [address] C/A/P at [facility] in [place], [place] demonstrated no evidence of metastatic disease. 4. On September 22, 2016 Dr. Thacker placed in internal jugular Port-A-Cath without complications. 5. MRI of pelvis performed on October 05, 2016 at [facility]: Rectal mass 7.7 cm x 6.2 cm x 9.6 cm in length located within 3 cm of the anal sphincter and 6.4 cm from the anal verge with radi ographic extension though multiple areas of the bowel wall. 6. CT abdomen/pelvis also at [facility] October 05, 2016; large almost completely circumferential r ectosigmoid mass better delineated on the corresponding MRI with adjacent probable abscess. No distant metastases identified. 7. On October 14, 2016 Paulette was evaluated by Dr. Ailyn Wolff and Dr. Shea Mcneill of the [facility] where her case was presented to their tumor board. Clinical exa m is notable for an overt rectal carcinoma invading into the vagina. 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 Concerns raised by the [facility] Tumor Board were that the [...] as well as mutation analysis." Pathological Specimen #[id number] ([facility]). Tubulovillous adenoma with high grade dysplasia and [...] therapy with CIVI 5FU at 2 25 mg/m/day. 14. Multidisciplinary Care Team Conference at [facility] March 10, 2017; "Given borderline resec tability, [...] 17. Cycle #9 FOLFOX April 18, 2017. Current Assessment & Plan Paulette Byrnes returned to clinic on 05/02/2017 for follow up and cycle #10 of a plann ed 12 cycles of neoadjuvant FOLFOX chemotherapy. Interval history is notable for the fact that Paulette started on Flagyl 500 mg po tid on 2016 for increased abdominal pain and ZAIN drain output. Chief complaint today is creamy discharge from around the ZAIN drain site and burning of the skin at the exit site. Clinical exam is notable for confluent jaylin at the ZAIN drain exit site. Laboratory exam is notable for the absence of myelosuppression. Assessment; locally advanced rectal cancer. 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 Plan; continue Flagyl 500 mg orally three times a day. Start fluconazole 200 mg once a day. 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 Return in two weeks for Cycle #11 of a planned 12 cycles. Paulette has been i n communication with Dr. Wolff's office at [facility] to schedule imaging and pre surgical visit. Review of Systems: Constitutional: Reports energy is staying low. Reports decreased nausea. Sweats occur mid evening. Denies high fevers, shaking chills, anorexia, vomiting, weight loss, or night sweat s. Ear, Nose, Mouth, Throat: Reports slight soreness on lower gum line inside lip. Denies odyn ophagia, dysphagia, or tinnitus. Cardiovascular: Denies shortness of breath, dyspnea on exertion, chest pain, palpitations o r orthopnea. Respiratory: Denies cough, hemoptysis, or sputum production. Gastrointestinal: Reports abdominal pain around abdominal tube site is slightly increased a t times. She had unchanged drainage as well. Denies constipation, diarrhea, melena, or brigh t red blood per rectum. Genitourinary:Denies hematuria or dysuria. Musculoskeletal: Reports bilateral hip aches when walking. Neurologic: Reports unchanged numbness/tingling in fingers and toes bilaterally. Denies he adache or visual changes. Endocrine: Sensitivity to cold related to treatment is unchanged. Denies peripheral edema o r heat intolerance. Hematologic: Denies spontaneous bruising or bleeding. Integumentary: Redness around abdominal tube site is slightly decreased with use of neospor in ointment. Denies rash or wounds. Pain:Abdominal pain is as high as 10/10 and as low as 0/10. Goal <5/10. ROS otherwise negative. Note: Here for follow up, labs and treatment. My chart: active Scheduled Medications: Current Outpatient Prescriptions Medication Sig Dispense Refill ALPRAZolam (XANAX) 0.5 mg tablet Bring with to scheduled MRI, take one tablet 30 minute s before MRI, may repeat as needed. (Patient not taking: Reported on 05/02/2017) 2 tablet 0 ascorbic acid (VITAMIN C) [...] day 2-3 after chemotherapy treatment. fluconazole (DIFLUCAN) 200 MG tablet Take 1 tablet by mouth Daily. 14 tablet 0 HYDROcodone-acetaminophen (NORCO) 5-325 mg per tablet Take 1-2 tablets by mouth every 4 hours as needed for Pain. 100 tablet 0 ibuprofen (ADVIL, MOTRIN) 200 mg tablet Take [...] Frequency Provider Last Rate Last Dose fluorouracil 4,250 mg in sodium chloride 0.9% 9 mL CADD PUMP infusion 2,400 mg/m2 (Micah atment Plan Recorded) Intravenous Q46H Sirena Helton MD 4,250 mg at 05/02/17 1310 Allergies: Allergy: Allergies Allergen Reactions Propoxyphene Na [...] Diagnosis Rectal cancer Lichen sclerosus Objectives: Temp: 35.3 C (95.6 F) BP: 142/89 Pulse: 92 Resp: 18 SpO2: 99 % on Min/Max Temp past 24 hours:Temp Av.3 C (95.6 F) Min: 35.3 C (95.6 F) Max: 3 5.3 C (95.6 F) No intake or output data in the 24 hours ending 05/02/17 1753 Wt. Admission: Weight: 73.5 kg (162 lb 0.6 oz) Wt. Current: Weight: 73.5 kg (162 lb 0.6 oz) Wt Readings from Last 3 Encounters: 05/02/17 73.5 kg (162 lb 0.6 oz) 04/18/17 74.2 kg (163 lb 9.3 oz) 04/04/17 72.7 kg (160 lb 4.8 oz) Physical Exam: General: The patient is alert and oriented. No acute distress. Still working fulltime. Eyes: Conjunctiva clear. Sclera anicteric. ENMT: Oropharynx [...] left lowe r quadrant; exit site has confluent erythema and creamy discharge. There is 30cc of opaque g reen/brown fluid. Extremities: Nontender, no erythema, no edema. Skin: [...] Baltazar., Jason Roque, Caitie Travis., Leonila Montes., Danielle P Nicola.: Toxicity And Response Criteria Of The Eastern [...] for PAULETTE BYRNES ( ) as of 05/02/2017 17:54 Ref. Range 05/02/2017 09:08 WBC Latest Ref Range: 4.0 - 11.0 K/uL 4.5 RBC: Latest Ref Range: 3.70 - 5.20 M/uL 3.82 Hgb Latest Ref Range: 11.5 - 16.0 g/dL 11.0 (L) Hct, Final Latest Ref Range: 34.0 - 47.0 % 33.0 (L) MCV Latest Ref Range: 83.0 - 101.0 fL 86.5 MCH Latest Ref Range: 28.0 - 35.0 pg 28.8 MCHC Latest Ref Range: 32.0 - 36.0 g/dL 33.3 RDW-CV Latest Ref Range: <15.0 % 17.4 (H) Platelet Count Latest Ref Range: 140 - 440 K/uL 325 MPV Latest Units: fL 6.3 Absolute Neutrophils Latest Ref Range: 1.80 - 8.50 K/uL 3.10 Absolute Lymphocytes Latest Ref Range: 0.60 - 3.20 K/uL 0.60 Absolute Monocytes Latest Ref Range: 0.00 - 1.00 K/uL 0.60 Absolute Eosinophils Latest Ref Range: 0.00 - 0.40 K/uL 0.20 Absolute Basophils Latest Ref Range: 0.00 - 0.10 K/uL 0.00 % Neutrophils Latest Ref Range: 45.0 - 82.0 % 68.4 % Lymphocytes Latest Ref Range: 20.0 - 45.0 % 12.6 (L) % Monocytes Latest Ref Range: 4.0 - 12.0 % 14.0 (H) % Eosinophils Latest Ref Range: 0.0 - 5.0 % 4.1 % Basophils Latest Ref Range: 0.0 - 1.0 % 0.9 NA Latest Ref Range: 136 - 149 mmol/L 140 K Latest Ref Range: 3.5 - 5.1 mmol/L 4.0 Chloride Latest Ref Range: 98 - 109 mmol/L 106 Carbon dioxide Latest Ref Range: 24 - 31 mmol/L 27 ANION GAP Latest Ref Range: 3 - 16 mmol/L 7 GLUCOSE Latest Ref Range: 70 - 109 mg/dL 103 BUN Latest Ref Range: 7 - 18 mg/dL 7 Creatinine Latest Ref Range: 0.60 - 1.30 mg/dL 0.52 (L) BUN/CREA Unknown 13.5 ALBUMIN Latest Ref Range: 3.2 - 5.0 g/dL 2.9 (L) Albumin/Globulin ratio Latest Ref Range: 0.8 - 2.0 0.9 Total protein Latest Ref Range: 6.0 - 7.8 g/dL 6.3 EGFR IF NOT Latest Ref Range: >=60 mL/min/1.73m2 >60 Calcium Latest Ref Range: 8.3 - 10.5 mg/dL 9.1 ALK PHOS Latest Ref Range: 40 - 110 U/L 76 ALT (SGPT) (REF) Latest Ref Range: 6 - 45 U/L 17 AST (SGOT) (REF) Latest Ref Range: 10 - 42 U/L 26 LDH TOTAL Latest Ref Range: 91 - 180 U/L 174 BILIRUBIN TOTAL Latest Ref Range: 0.1 - 1.5 mg/dL 0.3 GLOBULIN Latest Ref Range: 2.1 - 3.8 g/dL 3.4 CEA Latest Ref Range: 0.0 - 10.0 ng/mL 1.9 Pharmacovigilance: Palliative Care: Patient's Medications New Prescriptions FLUCONAZOLE (DIFLUCAN) 200 MG TABLET Take 1 tablet by mouth Daily. Modified Medications No medications on file Discontinued Medications No medications on file Procedure: Day 1, Cycle 4 (14-day cycle) Completed; Released on 05/02/2017; Originally planned for 05/02/2017 Labs Lactate Dehydrogenase STAT, ONE TIME, Tue05/02/17 at 0908, For 1 occurrence OrderHistory CEA STAT, ONE TIME, 05/02/17 at 0908, For 1 occurrence OrderHistory Comprehensive Metabolic Panel STAT, ONE TIME, Tue05/02/17 at 0908, For 1 occurrence OrderHistory CBC with Differential STAT, ONE TIME, Tue05/02/17 at 0908, For 1 occurrence OrderHistory Nursing Orders OK to proceed with chemotherapy (Not Released) 05/02/17 - INFORMED CONSENT: The nature and character of the proposed treatment with Cycle #10 FOLFOX and the anticipated results of the proposed treatment with Cycle #10 FOLFOX;recognized alter wilton forms of treatment, including non-treatment; the risks benefits, and side effects of proposed treatment, alternative treatments and non-treatment were discussed with the patient who consents to proceed with treatment with Cycle #10 FOLFOX. The treating provider has exa mined the patient and reviewed the diagnostic data, including laboratory data, and deems dario t it is safe and appropriate to proceed with treatment with Cycle #10 FOLFOX.Electronically signed by: SIRENA HELTON MD 05/02/2017 10:16. OrderHistory Plans for discharge (Not Released) 04/18/17- DOSE REDUCED OXALIPLATIN 64 MG/M2 - DUE TO NEUROPATHY CALL [facility]- ARRANGE FOR PUMP OFF ON Tuesday QFU IN 14 DAYS, CBC, CMP, LDH, CEA/PORT, 4 HR RXPUMP OFF IN SHAY EVERY TIME Order History Continuous infusion pump initiation (Not Released) Routine, [...] 4 mg in sodium chloride 0.9% 50 mL IVPB Intravenous, Administer over 15 Minutes, ONCE, Tue05/02/17 at 1045, For 1 dose Administer 30 minutes prior to chemotherapy. OrderHistory PRN Medications LORazepam (ATIVAN) 2 mg/mL injection 0.5-1 mg (Not Released) 0.5-1 mg (original dose 0.5-1 mg), Intravenous, PRN, Anxiety, Nausea/Vomiting, Starting wh en released, for 1 dose Administer prior to chemotherapy. OrderHistory CHEMOTHERAPY oxaliplatin (ELOXATIN) 112.5 mg in dextrose 5% 227.5 mL infusion 112.5 mg (rounded from 113.28 mg = 64 mg/m2 1.77 m2 Treatment plan recorded BSA), Intra venous, Administer over 2 Hours, ONCE, Tue05/02/17 at 1115, For 1 dose Chemotherapy: Use appropriate handling precautions. Not compatible with NS or any chloride- containing solutions. Flush line with D5W prior to giving any other meds. Administer via y- site with leucovorin. OrderHistory leucovorin 350 mg in dextrose 5% 250 mL infusion 350 mg (rounded from 354 mg = 200 mg/m2 1.77 m2 Treatment plan recorded BSA), Intraveno us, Administer over 2 Hours, ONCE, Tue05/02/17 at 1115, For 1 dose Administer via y-site with oxaliplatin OrderHistory fluorouracil 4,250 mg in sodium chloride 0.9% 9 mL CADD PUMP infusion 4,250 mg (rounded from 4,248 mg = 2,400 mg/m2 1.77 m2 Treatment plan recorded BSA), Int ravenous, Administer over 46 Hours, EVERY 46 HOURS, First dose on 05/02/17 at 1315 OUTPATIENT Chemotherapy: Use appropriate handling precautions. Protect from light. Start Da y 1, disconnect Day 3. OrderHistory Portions of this chart may have been created with [employer] voice recognition software. Occasi onal wrong-word or [...]
--- OUTSIDE RECORDS SUMMARY | ~2019-06-11 | XMS | Encounter Summary ---
Demographics + + + | Address | [address] | | | [place] [address] | + + + | Home Phone | | + + + | Preferred Language | Unknown | + + + | Marital Status | | + + + | Jehovah'S Witness Affiliation | Unknown | + + + | Race | Unknown | + + + | Ethnic Group | Unknown | + + + Author + + + | Author | [facility] | | | and [place] | + + + | Organization | [facility] | | | and [place] | + + + | Address | Unknown | + + + | Phone | Unavailable | + + + Support + + + + + | Name | Relationship | Address | Phone | + + + + + | Lamar Phillips | REZA | [place] [address] | | + + + + + Care Team Providers + +------+ + | Care Interactive Media Specialist Name | Role | Phone | + +------+ + | Kristian Anderson DO | PCP | | + +------+ + Encounter Details +--------+ + + + + | Date | Type | Department | Care Team | Description | +--------+ + + + + | 09/12/ | Orders Only | [facility] | Jan[place], | | | 2019 | | [facility] | Mike White MD [address] | | | | [place] [address] [place] | | | | | [place], | [place] [address] | | | | | [place] [address] | [phone] | | | | | [phone] | | | +--------+ + + + [...]
--- OUTSIDE RECORDS SUMMARY | ~2019-06-11 | XMS | Encounter Summary ---
Demographics + + + | Address | [address] | | | [place] [address] | + + + | Home Phone [...] Author | [facility] | + + + | Organization | [facility] | + + + | Address | Unknown | + + + | Phone | Unavailable | + + + Support + + +---------+ + | Name | Relationship | Address | Phone | + + +---------+ + | Darrius Quintana | ECON | Unknown | | + + +---------+ + Care Team Providers + +------+ + | Care Timing Adjuster Name | Role | Phone | + [...] | | 2017 | | Center at [facility] [address] | [address] | the thigh); Blood in | | | | [address] | [address] [place], | urine (UTI work up | | | | Mailcode: [place] | [place] [address] | ordered) | | | | for Health and | [phone] | | | | | [facility], [facility] [address] | | | | | | [place], [place] | | | | | | [address] | | | | | | [phone] | | | +--------+ + + + [...] | | | | | [address] [place], | | | | | | [place] [address] | | | | | | [phone] | | | | | | | | +--------+---------+ + + + documented as of this encounter Visit Diagnoses + + | Diagnosis | + + | Hematuria, unspecified type - Primary | + + documented in this encounter"
--- OUTSIDE RECORDS SUMMARY | ~2019-06-11 | XMS | Encounter Summary ---
Demographics + + + | Address | [address] | | | [place] [address] | + + + | Home Phone | | + + + | Preferred Language | Unknown | + + + | Marital Status | | + + + | Muslim Affiliation | Unknown | + + + | Race | Unknown | + + + | Ethnic Group | Unknown | + + + Author + + + | Author | [facility] | | | and [place] | + + + | Organization | [facility] | | | and [place] | + + + | Address | Unknown | + + + | Phone | Unavailable | + + + Support + + + + + | Name | Relationship | Address | Phone | + + + + + | Lamar Phillips | REZA | [place] [address] | | + + + + + Care Team Providers + +------+ + | Care Compliance Representative Dealer Name | Role | Phone | + +------+ + | Kristian Anderson DO | PCP | | + +------+ + Reason for Visit + + + | Reason | Comments | + + + | Follow-up | | + + + Auth/Cert +--------+--------+ + + + + | [...] + + + + | 01/10/ | Hospital | [facility] | [place], | Rectal cancer (HCC) | | 2017 | Encounter | [facility] | Sirena White MD [address] | (Primary Dx) | | | | ONCOLOGY CLINIC [address] | [facility] | | | | | [address] | [place] [address] | | | | | [place] [address] | [phone] | | | | | [phone] | | | +--------+ + + + [...] + + + | Blood Pressure | 121/81 | 01/10/2017 9:52 AM | | | | | PDT | | + + + + + | Pulse | 88 | 01/10/2017 9:52 AM | | | | | PDT | | + + + + + | Temperature | 36.8 C (98.2 F) | 01/10/2017 9:52 AM | | | | | PDT | | + + + + + | Respiratory Rate | 16 | 01/10/2017 9:52 AM | | | | | PDT | | + + + + + | Oxygen Saturation | 100% | 01/10/2017 9:52 AM | | | | | PDT | | + + + + + | Inhaled Oxygen | - | - | | | Concentration | | | | + + + + + | Weight | 68.6 kg (151 lb 3.2 | 01/10/2017 9:52 AM | | | | oz) | PDT | | + + + + + | Height | - | - | | + + + + + | Body Mass Index | 25.95 | 10/18/2016 11:04 AM | | | | | PDT | | + + + + + documented in this encounter Discharge Instructions Instructions Sirena Helton MD - 01/10/2017Pick up ciprofloxacin and amoxicillin at [facility] Take amoxicillin three times a day. Take ciprofloxacin twice a day. Take for 21 days documented in this encounter Medications at Time [...] encounter Progress Notes Sirena Helton MD - 01/10/2017 9:36 AM PDTFormatting of this note might be differe nt from the original. Hematology/Oncology Progress Note [facility] DC Pt. Name/Age/: Paulette Parada 56 y.o. 1960 Med. Record Number: [id number] Date of admission: 01/10/2017 The patient's primary care provider is Kristian Anderson DO. Identifying Statement: Paulette Parada is a 56 y.o. female from [address] [place] [address] with Locally Advanced Rectal Cancer. The patient chart and medications were reviewed in detail and the patient was seen and exam ined. History of Present Illnesses, their Current Assessments and Plans: Problem List Rectal cancer Overview ACTIVE DIAGNOSIS: Locally Advanced Rectal Cancer. 1. Paulette presented to the [facility] emergency room on July 20, [...] cm within the rectum. Biopsy specimen number [id number] evaluated by Dr. Felipe Nixon of [facility] was notable for a tubular adenoma without high-grade dysplasia or overt carcinoma. This proced ure also included a full colonoscopy through the ostomy were 2 additional polyps were remove d, a tubular adenoma at 35 cm and a hyperplastic polyp at [address] C/A/P at [facility] in [place], [place] demonstrated no evidence of metastatic disease. 4. On September 22, 2016 Dr. Thacker placed in internal jugular Port-A-Cath without complications. 5. MRI of pelvis performed on October 05, 2016 at [facility]: Rectal mass 7.7 cm x 6.2 cm x 9.6 cm in length located within 3 cm of the anal sphincter and 6.4 cm from the anal verge with radi ographic extension though multiple areas of the bowel wall. 6. CT abdomen/pelvis also at [facility] October 05, 2016; large almost completely circumferential r ectosigmoid mass better delineated on the corresponding MRI with adjacent probable abscess. No distant metastases identified. 7. On October 14, 2016 Paulette was evaluated by Dr. Ailyn Wolff and Dr. Shea Mcneill of the [facility] [place] where her case was presented to their tumor board. Clinical exa m is notable for an overt rectal carcinoma invading into the vagina. 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 Concerns raised by the [facility] Tumor Board were that the [...] as well as mutation analysis." Pathological Specimen #[id number] ([facility]). Tubulovillous adenoma with high grade dysplasia and [...] large rectosigmoid mass including multiple exophytic components. Current Assessment & Plan Paulette Parada returned to clinic on 01/10/2017 with a plodding operator for follow-up of her locally advanced rectal caner, status post six cycles of FOLFOX chemotherapy. Interval history is notable for the fact that Paulette will begin external beam radiation thera py today. Review of systems is notable for recurrent low grade fevers (99.1), nausea and low back jayant n. Clinic exam is notable for purulent opaque drainage from her ZAIN drain in the Left Lower tapan drant. Laboratory exam is notable for the absence of myelosuppression. Assessments ;Locally advanced rectal cancer. Soft tissue infection of the pelvis. Plan; Extended 25 minute office encounter with Paulette reviewing her imaging consistent with a positive response to treatment. We reviewed the treatment plan of initiation of combined mo dality therapy today with CIVI 5FU at 225 mg/m with external beam radiation and its risks benefits and alternatives. We reviewed the plan to proceed directly with pelvic exenteration following the completion of her combined modality therapy by Dr. Ailyn Wolff at the [facility]. We then discussed the high likelihood that the area within her pelvis drained by her ZAIN antonio in is infected. Case discussed with Dr. Marty Thacker in Surgery who recommended that the ZAIN drain remain in situ until her definitive surgery. Therefore I recommended combined antibiot ic therapy with amoxicillin and ciprofloxacin to suppress the infection until the time of he r surgery. Patient acknowledged the plan and agreed to proceed. Clinical and laboratory follow up and pump recharge in one week. Review of Systems: Constitutional: Reports energy level is lower than normal. "I have had more side effects th is past week". Reports low grade fevers of 99.9F. Reports nausea is intermittent, states dario t the medications have been helping. Appetite is fair, has been trying to eat well and has b een keeping a journal. Denies shaking chills, anorexia, vomiting, weight loss, or night swea ts. Ear, Nose, Mouth, Throat: Reports her right ear itches and then will become sore intermitte ntly. Denies odynophagia or dysphagia. Cardiovascular: Denies shortness of breath, dyspnea on exertion, chest pain, palpitations o r orthopnea. Respiratory: Denies cough, hemoptysis, or sputum production. Gastrointestinal: Reports left lower abdominal pain and pelvic pain below ostomy and drain tube. She states that this hurts so bad sometimes that she cries. States that she notices th is when she walks quickly at work. Denies constipation, diarrhea, melena, or bright red bloo d per rectum. Genitourinary: Report vaginal discharge today that was slightly pink. Denies hematuria or d ysuria. Musculoskeletal: Denies joint pain or tenderness. Neurologic: Reports headaches occasionally and feels that it is lack of sleep. States that the only time she has numbness in fingers or toes is if she touches something cold. Denies v isual change. Endocrine: Denies peripheral edema or heat/cold intolerance. Hematologic: Denies spontaneous bruising or bleeding. Integumentary: Reports rash around drain in lower left abdomen continues. Denies rash or wo unds . Pain: Denies pain. Note: Here for follow up, labs and 5 hour treatment. My chart: Active. Scheduled Medications: Current Outpatient Prescriptions Medication Sig Dispense Refill ALPRAZolam (XANAX) 0.5 mg tablet Bring with to scheduled MRI, take one tablet 30 minute s before MRI, may repeat as needed. 2 tablet 0 amoxicillin (AMOXIL) 500 MG capsule Take 1 capsule by mouth 3 times daily for 21 days. 42 capsule 0 ascorbic acid (VITAMIN C) 500 mg tablet Take 1,000 mg by mouth Daily. Biotin 10 MG CAPS Take by mouth. For Hair, skin, nails. buPROPion (WELLBUTRIN SR) 150 mg 12 hr tablet Take 150 mg by mouth Daily. ciprofloxacin (CIPRO) 500 mg tablet Take 1 tablet by mouth 2 times daily for 21 days. 1 4 tablet 0 clobetasol (TEMOVATE) 0.05% ointment Apply topically Once a week. dexamethasone (DECADRON) 4 mg tablet Take 4 [...] every 8 hours as needed for Nausea. No current facility-administered medications for this encounter. [...] Objectives: Temp: 36.8 C (98.2 F) BP: 121/81 Pulse: 88 Resp: 16 SpO2: 100 % on Min/Max Temp past 24 hours:Temp Av.8 C (98.2 F) Min: 36.8 C (98.2 F) Max: 3 6.8 C (98.2 F) No intake or output data in the 24 hours ending 01/11/17 0644 Wt. Admission: Weight: 68.6 kg (151 lb 3.2 oz) Wt. Current: Weight: 68.6 kg (151 lb 3.2 oz) Wt Readings from Last 3 Encounters: 01/10/17 68.6 kg (151 lb 3.2 oz) 12/27/16 68.4 kg (150 lb 12.8 oz) 12/13/16 68.3 kg (150 lb 8 oz) Physical Exam: General: The patient is [...] left lowe r quadrant; exit site has slight erythema but no discharge. There is 50 cc of purulent, opaq ue fluid in the bulb. Extremities: Nontender, no [...] John Paul Baer., Matt Denney., Fransisca Baltazar., Chayito Roque., Caitie Travis., Leonila Montes., Danielle, P .P.: [...] in the Assessment and Plan. Results for FITZPAULETTE ALTAF ( ) as of 01/11/2017 06:37 Ref. Range 01/10/2017 09:06 WBC Latest Ref Range: 4.0 - 11.0 K/uL 8.1 RBC: Latest Ref Range: 3.70 - 5.20 M/uL 4.04 Hgb Latest Ref Range: 11.5 - 16.0 g/dL 11.0 (L) Hct, Final Latest Ref Range: 34.0 - 47.0 % 33.2 (L) MCV Latest Ref Range: 83.0 - 101.0 fL 82.3 (L) MCH Latest Ref Range: 28.0 - 35.0 pg 27.3 (L) MCHC Latest Ref Range: 32.0 - 36.0 g/dL 33.1 RDW-CV Latest Ref Range: <15.0 % 22.1 (H) Platelet Count Latest Ref Range: 140 - 440 K/uL 219 MPV Latest Units: fL 6.8 Absolute Neutrophils Latest Ref Range: 1.80 - 8.50 K/uL 5.90 Absolute Lymphocytes Latest Ref Range: 0.60 - 3.20 K/uL 1.00 Absolute Monocytes Latest Ref Range: 0.00 - 1.00 K/uL 0.90 Absolute Eosinophils Latest Ref Range: 0.00 - 0.40 K/uL 0.30 Absolute Basophils Latest Ref Range: 0.00 - 0.10 K/uL 0.10 % Neutrophils Latest Ref Range: 45.0 - 82.0 % 73.2 % Lymphocytes Latest Ref Range: 20.0 - 45.0 % 11.7 (L) % Monocytes Latest Ref Range: 4.0 - 12.0 % 10.8 % Eosinophils Latest Ref Range: 0.0 - [...] Latest Ref Range: 3 - 16 mmol/L 6 GLUCOSE Latest Ref Range: 70 - 109 mg/dL 119 (H) BUN Latest Ref Range: 7 - 18 mg/dL 14 Creatinine Latest Ref Range: 0.60 - 1.30 mg/dL 0.60 BUN/CREA Unknown 23.3 ALBUMIN Latest Ref Range: 3.2 - 5.0 g/dL 3.2 Albumin/Globulin ratio Latest Ref Range: 0.8 - 2.0 1.0 Total protein Latest Ref Range: 6.0 - 7.8 g/dL 6.4 EGFR IF NOT Latest Ref Range: >=60 mL/min/1.73m2 >60 Calcium Latest Ref Range: 8.3 - 10.5 mg/dL 8.9 ALK PHOS Latest Ref Range: 40 - 110 U/L 97 ALT (SGPT) (REF) Latest Ref Range: 6 - 45 U/L 24 AST (SGOT) (REF) Latest Ref Range: 10 - 42 U/L 28 LDH TOTAL Latest Ref Range: 91 - 180 U/L 160 BILIRUBIN TOTAL Latest Ref Range: 0.1 - 1.5 mg/dL 0.5 GLOBULIN Latest Ref Range: 2.1 - 3.8 g/dL 3.2 Pharmacovigilance: Palliative Care: Patient's Medications New Prescriptions AMOXICILLIN (AMOXIL) 500 MG CAPSULE Take 1 capsule by mouth 3 times daily for 21 days. CIPROFLOXACIN (CIPRO) 500 MG TABLET Take 1 tablet by mouth 2 times daily for 21 days. Modified Medications No medications on file Discontinued Medications No medications on file Procedure: Day 1, Week 1 (7-day cycle) Completed; Released on 01/10/2017; Originally planned for 01/10/2017 Labs Lactate Dehydrogenase STAT, ONE TIME, Tue01/10/17 at 0907, For 1 occurrence OrderHistory Comprehensive Metabolic Panel STAT, ONE TIME, Tue01/10/17 at 09, For 1 occurrence OrderHistory CBC with Differential STAT, ONE TIME, Tue01/10/17 at 0907, For 1 occurrence OrderHistory Nursing Orders OK to proceed with chemotherapy (Not Released) 01/10/17-- INFORMED CONSENT: The nature and character of the proposed treatment with 5FU pump and the anticipated results of the proposed treatment with 5FU pump ;recognized alternative forms of treatment, including non-treatment; the risks benefits, and side effects of proposed treat5 FU pumpment, alternative treatments and non-treatment were discussed with the patient who co nsents to proceed with treatment with 5FU pump. The treating provider has examined the patie nt and reviewed the diagnostic data, including laboratory data, and deems that it is safe an d appropriate to proceed with treatment with 5FU pump.SIRENA HELTON MD. Ligia ramsey Plans for discharge (Not Released) PT IS CONCURRENT--PLEASE NOTIFY RADS IF WE HOLD TREATMENT MUST BE EVERY 7 DAYS- ON Tuesday ONLY AND ONLY AT 1:40 IF POSSIBLE DUE TO RADIATION AT 1.0 0 QFU IN 7 DAYS (MUST BE 7-ON Tuesday ), CBC, CMP, LDH/PORT, PUMP REFILLQFU IN 14 DAYS- ay ONLY, CBC, CMP, LDH/PORT, PUMP REFILLQFU IN 21 DAYS- Tuesday ONLY, CBC, CMP, LDH/PORT, P UMP REFILLQFU IN 28 DAYS Tuesday ONLY, CBC, CMP, LDH/PORT, PUMP REFILL PATIENT NEEDS AFTE RNOON APPOINTMENTS, RADIATION [place] IS AT 1300 OrderHistory Continuous infusion pump initiation (Not Released) Routine, ONE TIME Starting when released Confirm continuous 5FU 225 mg/m2/day over 168 hours (7 days per week) from Day 1 through day of radiation therapy: EITHER contact home infusion pharmacy to verify prescription OR signed order is present in treatment plan for during visit continuous infusion pump. Orde rHistory CHEMOTHERAPY fluorouracil 2,575 mg in sodium chloride 0.9% 32.5 mL CADD PUMP chemo infusion (Discont inued - Patient Discharge) 2,575 mg (rounded from 2,583 mg = 225 mg/m2/day 1.64 m2 Treatment plan adjusted BSA), I ntravenous, Administer over 168 Hours, EVERY 7 DAYS, First dose on Tue01/10/17 at 1100 OUTPATIENT Chemotherapy: Use appropriate handling precautions. Protect from light. Continuo us infusion seven days per week from Day 1 through last day of radiation therapy. OrderH istory Post-Medications heparin 100 units/mL flush injection 500 Units (Not Released) 500 Units (5 mL), Intercatheter, PRN, Line Care, Starting when released, Until Discontinue d OrderHistory SIRENA HELTON MD Portions of this chart may have been created with Fin Quiver voice recognition software. Occasi onal wrong-word or [...]
--- OUTSIDE RECORDS SUMMARY | ~2019-06-11 | XMS | Encounter Summary ---
Demographics + + + | Address | [address] | | | [place] [address] | + + + | Home Phone [...] Team Providers + +------+ + | Care Health Therapist Name | Role | Phone | [...] | | | | [facility] | [place], [place] | | | | | [place] [address] | [address] | | | | | [place], [place] | | | | | | [address] | | | | | | [phone] | | | +--------+ + + + [...] | | 18 | | | | [id number], Skin prep: | | | | | | | 3M 3344 (30/mo), Adh | | | | | | | Rem HO 7760 | | | | | | | (1box/mo), Rings: HO | | | | | | | 8805 (10/mo), | | | | | | | [place]odorant: [place] [address] | | | | | | | (60/mo), Pwdr: CT | | | | | | | [id number] (1oz/mo), | | | | | | | Belt: Lrg (2/mo) | | | | | | | and Irrigation CO | | | | | | | [id number], Sleeve CO | | | | | | | [id number] | | | | | + + [...] | | | | | [place], | | | | | | [place] [address] | | | | | | [phone] | | | | | | | | +--------+---------+ + + + documented as of this encounter Visit Diagnoses Not on filedocumented in this encounter"
--- OUTSIDE RECORDS SUMMARY | ~2019-06-11 | XMS | Encounter Summary ---
Demographics + + + | Address | [address] | | | [place] [address] | + + + | Home Phone | | + + + | Preferred Language | Unknown | + + + | Marital Status | Single | + + + | Baptism Affiliation | NON | + + + [...] Team Providers + +------+ + | Care Utilities Ground Worker Name | Role | Phone | [...] | 2017 | | Center at [facility] [address] | [address] | Review | | | | [address] | [place], | | | | | Mailcode: [place] | [place] [address] | | | | | for Health and | [phone] | | | | | [facility] [address] | | | | | | [place], [place] | | | | | | [address] | | | | | | [phone] | | | +--------+ + + + [...] | | | | | [place], | | | | | | [place] [address] | | | | | | [phone] | | | | | | | | +--------+---------+ + + + documented as of this encounter Visit Diagnoses Not on filedocumented in this encounter"
--- OUTSIDE RECORDS SUMMARY | ~2019-06-11 | XMS | Encounter Summary ---
Demographics + + + | Address | [address] | | | [place] [address] | + + + | Home Phone [...] | Located Within [facility] | | | and [place] | + + + | Address | Unknown | + + + | Phone | Unavailable | + + + Support + + + + + | Name | Relationship | Address | Phone | + + + + + | Lamar Phillips | REZA | [place] [address] | | + + + + + Care Team Providers + +------+ + | Care Fare Collector Name | Role | Phone | + [...] + + | 11/01/ | Hospital | [facility] | [place], | | | 2017 | Encounter | MED CTR NUTRITION | Mike White MD [address] | | | | [address] [place] | | | | | [place], | [place] [address] | | | | | [place] [address] | [phone] | | | | | [phone] | | | | | | | [...] and is very encouraging to Jenn. 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 Will continue to f bruce Barajas in the cancer center. Time spent: 15 minutes Thank you for the referral, Ludivina Flores RDN 11/02/2016 7:37 documented in this encounter Plan of Treatment Not on filedocumented as of this encounter Visit Diagnoses Not on filedocumented in this encounter
--- OUTSIDE RECORDS SUMMARY | ~2019-06-11 | XMS | Encounter Summary ---
Demographics + + + | Address | [address] | | | [place] [address] | + + + | Home Phone [...] + + + | Author | [facility] | + + + | Organization | [facility] | + + + | Address | Unknown | + + + | Phone | Unavailable | + + + Support + + +---------+ + | Name | Relationship | Address | Phone | + + +---------+ + | Darrius Quintana | ECON | Unknown | | + + +---------+ + Care Team Providers + +------+ + | Care Metal Cans Supervisor Name | Role | Phone | [...] | | | | [facility] Dept | [address] | | | | | | | [address] | | | | | | | [place] | | | | | | | [place], [place] | | | | | | | [address] | | | | | | | Phone: | | | | | | | [phone] | | | | | | | Fax: | | | | | | | [phone] | +--------+--------+ + + + + Encounter Details +--------+---------+ + + + | Date | Type | Department | Care Team | Description | +--------+---------+ + + + | 08/28/ | Office | Digestive Health | Ailyn Wolff MD | CA of rectum (HCC) | | 2019 | Visit | [place] at [facility] [address] | [address] | (Primary Dx) | | | | [address] | [place], | | | | | Mailcode: [place] | [place] [address] | | | | | for Health and | [phone] | | | | | Healing, Building [address] | | | | | | [place], [place] | | | | | | [address] | | | | | | [phone] | | | +--------+---------+ + + + [...] on 07/19/16 went to the [facility] ED CT abdomen/pelvis with IV contrast [...] (10/05/16) no liver metastases rigid proctoscopy by va (10/05/16) 6 cm from anal verge presented at the [facility] Multidisciplinary GI Oncology Conference on 10/07/16 [...] Mendoza pouch staple line presented at [facility] Multidisciplinary GI Oncology Conference on 03/10/17. [...] (OSH, 05/17/17) close to pelvic sidewall [facility] Multidisciplinary GI Oncology Conference (06/02/17) Recommendations [...] resection with Primary anastomosis, placement of a 19-Nepalese Albert drain through the right lower quadrant [...] resection with primary anastomosis, placement of a 19-Nepalese Albert drain through the right lower quadrant [...] family h istory, and social history in [facility]. Objective: BP 148/91 | Pulse 82 | [...] Return/Re-evaluation patient, I spent 13 minutes of tcaq-kg-wcwd time, of which m ore than half [...] | | | | | [place], | | | | | | [place] [address] | | | | | | [phone] | | | | | | | [...] + + + + + | [facility] | [address] | [place] [address] | | | SERVICES, CORE | [address] | | | + + + + + documented in this encounter Visit Diagnoses + + | Diagnosis | + + | 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
--- OUTSIDE RECORDS SUMMARY | ~2019-06-11 | XMS | Encounter Summary ---
Demographics + + + | Address | [address] | | | [place] [address] | + + + | Home Phone [...] + | Author | [facility] | | | and [place] | + + + | Organization | [facility] | | | and [place] | + + + | Address | Unknown | + + + | Phone | Unavailable | + + + Support + + + + + | Name | Relationship | Address | Phone | + + + + + | Lamar Phillips | REZA | [place] [address] | | + + + + + Care Team Providers + +------+ + | Care Robotics Application Engineer Name | Role | Phone | [...] neoplasm of | Mike C, | [address] | | | | | rectum (HCC) | MD [address] | [place], | | | | | Procedures | [address] | [place] [address] | | | | | [place] | [place], | Phone: | | | | | [place] | [place] [address] | [phone] | | | | | HCL | Phone: | Fax: | | | | | INJECTION, 1 | [phone] | [phone] | | | | | MG RI | Fax: | | | | | | DEXAMETHASON | [phone] | | | | | | E SODIUM | | | | | | | PHOS, 1 MG | | | | | | | RI LORAZEPAM | | | | | | | INJECTION, | | | | | | | 2 MG RI | | | | | | | OXALIPLATIN, | | | | | | | .5 MG RI | | | | | | | LEUCOVORIN | | | | | | | CALCIUM | | | | | | | INJECTION, | | | | | | | 50 MG RI | | | | | | | FLUOROURACIL | | | | | | | INJECTION, | | | | | | | 500 MG RI | | | | | | | DIPHENHYDRAM | | | | | | | INE HCL | | | | | | | INJECTIO, 50 | | | | | | | MG RI | | | | | | | METHYLPREDNI | | | | | | | SOLONE | | | | | | | INJECTION, | | | | | | | 125 MG RI | | | | | | | ADRENALIN | | | | | | | EPINEPHRINE | | | | | | | INJECT, .1 | | | | | | | MG RI | | | | | | | ALBUTEROL | | | | | | | COMP CON, 1 | | | | | | | MG RI | | | | | | | ALBUTEROL | | | | | | | NON-COMP | | | | | | | CON, 1 MG | | | | | | | RI | | | | | | | INJECTION, | | | | | | | FAMOTIDINE, | | | | | | | 20 MG RI | | | | | | | NORMAL | | | | | | | SALINE | | | | | | | SOLUTION | | | | | | | INFUS, 500 | | | | | | | ML RI | | | | | | | NORMAL | | | | | | | SALINE | | | | | | | SOLUTION | | | | | | | INFUS, 250 | | | | | | | ML RI | | | | | | | STERILE | | | | | | | WATER/SALINE | | | | | | | , 10 ML RI | | | | | | | CHEMOTHER, | | | | | | | IV PUSH,EA | | | | | | | ADD DRUG RI | | | | | | | CHEMOTHER, | | | | | | | IV INFUSION, | | | | | | | 1 HR RI | | | | | | | CHEMOTHER, | | | | | | | IV INFUSION, | | | | | | | EA HR RI | | | | | | | CHEMOTHER,NO | | | | | | | N-HORMONE | | | | | | | ANTI-NEOPL, | | | | | | | SUB-Q/IM RI | | | | | | | CHEMOTHER | | | | | | | HORMON | | | | | | | ANTINEOPL | | | | | | | SUB-Q/IM RI | | | | | | | | | | | | | | PALONOSETRON | | | | | | | HCL, 25 MCG | | | | | | | RI DRUGS | | | | | | | UNCLASSIFIED | | | | | | | INJECTION, | | | | | | | 1 ML | | | +--------+--------+ + + + + Encounter Details +--------+ + + + + | Date | Type | Department | Care Team | Description | +--------+ + + + + | 09/05/ | Hospital | [facility] | Janel, | Rectal cancer (HCC) | | 2018 | Encounter | MED CTR CHEMO | Mike White MD [address] | | | | | INFUSION [address] | [address] [facility] | | | | | [address] [place], | [place] [address] | | | | | [place] [address] | [phone] | | | | | [phone] | | | +--------+ + + + [...] [address] | [place] | [phone] | | [facility] | | [address] | | | - LABORATORY | | [...] [address] | [place] | [phone] | | [facility] | | [address] | | | - LABORATORY | | [...] 10 | 7 - 18 mg/dL | [facility] | | | | | | [facility] | | | | | | MEDICAL | | | | | | CENTER - | | | | | | LABORATORY | | + + + + + + | Creatinine | 0.56 (L) | 0.60 - 1.30 | [facility] | | | | | mg/dL | [facility] | | | | | | MEDICAL | | | | | | CENTER - | | | | | | LABORATORY | | + + + + + + | eGFR if not | >60Comment: GLOMERULAR | >=60 | [facility] | | | | FILTRATION | mL/min/1.73m2 | [facility] | | | MALTESE | RATE,ESTIMATED | | MEDICAL | | | | mL/min/1.94z1Ovzr than | | CENTER - | | [...] + | [address] | [address] | [place], [place] | [phone] | | [facility] | | [address] | | | - LABORATORY | | [...]
--- OUTSIDE RECORDS SUMMARY | ~2019-06-11 | XMS | Encounter Summary ---
Demographics + + + | Address | [address] | | | [place] [address] | + + + | Home Phone | | + + + | Preferred Language | Unknown | + + + | Marital Status | | + + + | Hoahaoism Affiliation | Unknown | + + + | Race | Unknown | + + + | Ethnic Group | Unknown | + + + Author + + + | Author | [facility] | | | and [place] | + + + | Organization | [facility] | | | and [place] | + + + | Address | Unknown | + + + | Phone | Unavailable | + + + Support + + + + + | Name | Relationship | Address | Phone | + + + + + | Lamar Phillips | REZA | [place] [address] | | + + + + + Care Team Providers + +------+ + | Care Rail Project Engineer Name | Role | Phone | [...] | +--------+ + + + + | 02/10/ | Telephone | [facility] | Vu Guillermo, | Follow-up | | 2017 | | MED CTR MEDICAL | [facility] | | | | | [facility] CLINIC [address] | | | | | | [address] | | | | | | [place] [address] | | | | | | [phone] | | | +--------+ + + + [...]
--- OUTSIDE RECORDS SUMMARY | ~2019-06-11 | XMS | Encounter Summary ---
Demographics + + + | Address | [address] | | | [place] [address] | + + + | Home Phone [...] Team Providers + +------+ + | Care Field Staff Manager Name | Role | Phone | [...] | | | | CT CHEST, | [place], [place] | Mailcode: | | | | | ABDOMEN AND | [address] | [address] [facility] | | | | | PELVIS W IV | Phone: | Hospital | | | | | CONTRAST DC | [phone] | [place], [place] | | | | | CAT SCAN OF | Fax: | [address] | | | | | CHEST | [phone] | Phone: | | | | | CONTRAST DC | | [phone] | | | | | CT | | Fax: | | | | | ABDOMEN&PELV | | [phone] | | | | | IS | | | | | | | W/CONTRAST | | | +--------+--------+ + + + + Encounter Details +--------+ + + + + | Date | Type | Department | Care Team | Description | +--------+ + + + + | 04/19/ | Flavor [facility] Tender | Digestive Health | Ailyn Wolff MD | Colorectal cancer | | 2017 | | [place] [facility] [address] | [address] | (HCC) (Primary Dx) | | | | [address] | [place], | | | | | Mailcode: [place] | [place] [address] | | | | | for Health and | [phone] | | | | | [facility], [address] | | | | | | [place], [place] | | | | | | [address] | | | | | | [phone] | | | +--------+ + + + [...] | | | | | [place], | | | | | | [place] [address] | | | | | | [phone] | | | | | | | [...]
--- OUTSIDE RECORDS SUMMARY | ~2019-06-11 | XMS | Encounter Summary ---
Demographics + + + | Address | [address] | | | [place] [address] | + + + | Home Phone | | + + + | Preferred Language | Unknown | + + + | Marital Status | | + + + | Restorationism Affiliation | Unknown | + + + | Race | Unknown | + + + | Ethnic Group | Unknown | + + + Author + + + | Author | [facility] | | | and [place] | + + + | Organization | [facility] | | | and [place] | + + + | Address | Unknown | + + + | Phone | Unavailable | + + + Support + + + + + | Name | Relationship | Address | Phone | + + + + + | Lamar Phillips | REZA | [place] [address] | | + + + + + Care Team Providers + +------+ + | Care Power Operator Name | Role | Phone | [...] + + | 02/10/ | Telephone | [facility] | Vu Guillermo, | Follow-up | | 2017 | | MED CTR MEDICAL | [facility] [employer] [facility] | | | | | ONCOLOGY CLINIC [address] | | | | | | [address] | | | | | | [place] [address] | | | | | | [phone] | | | +--------+ + + + [...]
--- OUTSIDE RECORDS SUMMARY | ~2019-06-11 | XMS | Encounter Summary ---
Demographics + + + | Address | [address] | | | [place] [address] | + + + | Home Phone [...] + + + | Author | [facility] | + + + | Organization | [facility] | + + + | Address | Unknown | + + + | Phone | Unavailable | + + + Support + + +---------+ + | Name | Relationship | Address | Phone | + + +---------+ + | Darrius Quintana | ECON | Unknown | | + + +---------+ + Care Team Providers + +------+ + | Care Floor Press Operator Name | Role | Phone | [...] | | [address] | [place], | | | | | Mailcode: [place] | [place] [address] | | | | | for Health and | [phone] | | | | | [facility] [address] | | | | | | [place], [place] | | | | | | [address] | | | | | | [phone] | | | +--------+---------+ + + + [...] Pressure | 144/93 | 08/22/2017 12:33 PM | | | | | PST | | + + + + + | Pulse | 94 | 08/22/2017 12:33 PM | | | | | PST | | + + + + + | Temperature | 36.7 C (98 F) | 08/22/2017 12:33 PM | | | [...] (156 lb 11.2 | 08/22/2017 12:33 PM | | | | oz) | PST | | + + + + + | Height | 160 cm (5' 3") | 08/22/2017 12:33 PM | | | | | PST | | + + + + + | Body Mass Index | 27.76 | 08/22/2017 12:33 PM | | | [...] Instructions Patient Instructions Ailyn Wolff MD - 08/22/2017 12:40 PM PSTPlan: Ok to use Vaseline around perineum See me back in [address] Islas. Consider another 2 cycles of chemo to finish 12 cycles. No fistula. Given prior chemoradiation, may take up to 6 months for complete healing.Electronically si gned by Ailyn Wolff MD at 08/22/2017 12:59 PM PST documented in this encounter Progress Notes Emily Gresham MA - 08/22/2017 12:40 PM PSTExamination chaperoned by Emily Levi CMA. u, Ailyn White MD - 08/22/2017 12:40 PM PSTCOLON AND RECTAL SURGERY Attending Clinic Note Established Patient Assessment: 56 y.o. female with htn, elevated lipids, heartburn, nephrolithiasis, and liche n sclerosus endoscopically obstructing mriT4 N0 M0 rectal mass (6 cm from verge) invading vagina rectal urgency and a lot of rectal bleeding on 07/19/16 went to [facility] ED CT abdomen/pelvis with IV contrast [...] 09/22/16) seen by local medical oncology (Mike Islsa) on 10/01/16. recommended long course neoadjuvant chemoradiation [...] MRI ([facility], 05/17/17) close to pelvic sidewall [facility] Multidisciplinary GI Oncology Conference (06/02/17) Recommendations [...] with primary anast omosis, placement of a 19-American Albert drain through the right lower quadrant [...] (09/13/16) 3.5 quit smoking on 07/19/16 Plan: Ok to use Vaseline around perineum See me back in [address] Islas. Consider another 2 cycles of chemo to finish 12 cycles. No fistula. Given prior chemoradiation, she may take up to 6 months for complete healing. 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 Intermittent lower abdominal pain. No abdomin al pain now. A lot of pelvic pain (near tailbone) in the am. Oxycodone 1 tab twice a day . Does not want any more pain pills. No fevers or chills. Tolerating her diet. Nausea. No emesis. She emptied her colostomy bag 3 times a day. She changes her colostomy bag o nce a week. Flu shot at [place] on 08/08/17. Got two units of blood on 08/15/17. Less numbness but more itching in right upper thigh and below pannus. Improving memory. Granted social security disability. All other systems reviewed and are negative. She comes for routine postop razia ck. Objective: BP 144/93 | Pulse 94 | Temp (Src) 36.7 C (98 F) (Oral) | Ht 1.6 m (5' 3") | Wt 71.1 kg (156 lb 11.2 oz) | SpO2 98% | BMI 27.76 kg/(m^2) General: well-developed, well-nourished female in NAD Mental Status: A&O x 4 Neurologic: moves all extremities well HEENT: anicteric sclera, EOMI Abd: soft, midline incision without hernia, viable left-sided ostomy, mild RLQ tenderness, nondistended Extremities: no calf tenderness, no clubbing/cyanosis/edema Perineum: 1-2 mm skin dehiscence, no signs of infection With this Return/Re-evaluation patient, I spent 13 minutes of bqqh-an-qvum time, of which m ore than half the time was spent in counseling. 4 minute document review [facility] umented in this encounter Plan of Treatment +--------+---------+ + + + | Date | Type | Specialty | Care Team | Description | +--------+---------+ + + + | 06/18/ | Office | Surgery | Ailyn Wolff MD | | | 2018 | Visit | | [address] | | | | | | [place], | | | | | | [place] [address] | | | | | | [phone] | | | | | | | | +--------+---------+ + + + documented as of this encounter Visit Diagnoses + + | Diagnosis | + + | 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
--- OUTSIDE RECORDS SUMMARY | ~2019-06-11 | XMS | Encounter Summary ---
Demographics + + + | Address | [address] | | | [place] [address] | + + + | Home Phone | | + + + | Preferred Language | Unknown | + + + | Marital Status | | + + + | Episcopalian Affiliation | Unknown | + + + | Race | Unknown | + + + | Ethnic Group | Unknown | + + + Author + + + | Author | [facility] | | | and [place] | + + + | Organization | [facility] | | | and [place] | + + + | Address | Unknown | + + + | Phone | Unavailable | + + + Support + + + + + | Name | Relationship | Address | Phone | + + + + + | Lamar Phillips | REZA | [place] [address] | | + + + + + Care Team Providers + +------+ + | Care Homebirth Midwife Name | Role | Phone | + +------+ + | Kristian Anderson DO | PCP | | + +------+ + Reason for Visit +--------+ + | Reason | Comments | +--------+ + | Other | | +--------+ + Encounter Details +--------+ + + + + | Date | Type | Department | Care Team | Description | +--------+ + + + + | 03/14/ | Telephone | [facility] | Janel, | Other | | 2017 | | MED [facility] MEDICAL | Mike White MD [address] | | | | | ONCOLOGY CLINIC [address] [place] | | | | | [address] [place] | [place] [address] | | | | | [place] [address] | [phone] | | | | | [phone] | | | +--------+ + + + [...]
--- OUTSIDE RECORDS SUMMARY | ~2019-06-11 | XMS | Encounter Summary ---
Demographics + + + | Address | [address] | | | [place] [address] | + + + | Home Phone | | + + + | Preferred Language | Unknown | + + + | Marital Status | | + + + | Taoism Affiliation | Unknown | + + + | Race | Unknown | + + + | Ethnic Group | Unknown | + + + Author + + + | Author | [facility] | | | and [place] | + + + | Organization | [facility] | | | and [place] | + + + | Address | Unknown | + + + | Phone | Unavailable | + + + Support + + + + + | Name | Relationship | Address | Phone | + + + + + | Lamar Phillips | REZA | [place] [address] | | + + + + + Care Team Providers + +------+ + | Care Paper Latcher Name | Role | Phone | + [...] + + + + | 01/10/ | Telephone | [facility] | Janel, | Other | | 2017 | | MED [facility] MEDICAL | Mike White MD [address] | | | | | ONCOLOGY CLINIC [address] [place] | | | | | [address] [place] | [place] [address] | | | | | [place] [address] | [phone] | | | | | [phone] | | | +--------+ + + + [...]
--- OUTSIDE RECORDS SUMMARY | ~2019-06-11 | XMS | Encounter Summary ---
Demographics + + + | Address | [address] | | | [place] [address] | + + + | Home Phone | | + + + | Preferred Language | Unknown | + + + | Marital Status | | + + + | Temple Affiliation | Unknown | + + + | Race | Unknown | + + + | Ethnic Group | Unknown | + + + Author + + + | Author | [facility] | | | and [place] | + + + | Organization | [facility] | | | and [place] | + + + | Address | Unknown | + + + | Phone | Unavailable | + + + Support + + + + + | Name | Relationship | Address | Phone | + + + + + | Lamar Phillips | REZA | [place] [address] | | + + + + + Care Team Providers + +------+ + | Care Educational Diagnostician Name | Role | Phone | + [...] + + + + | 08/15/ | Hospital | [facility] | [facility], | Rectal cancer (HCC) | | 2018 | Encounter | [facility] | Mike White MD [address] | | | | [address] | [facility] | | | | | [address] [facility] | [place] [address] | | | | | [place] [address] | [phone] | | | | | [phone] | | | +--------+ + + + [...] + + + | Blood Pressure | 137/60 | 08/15/2017 8:46 AM | | | | | PST | | + + + + + | Pulse | 92 | 08/15/2017 8:46 AM | | | | | PST | | + + + + + | Temperature | 36 C (96.8 F) | 08/15/2017 8:46 AM | | | | | PST | | + + + + + | Respiratory Rate | 18 | 08/15/2017 8:46 AM | | | | | PST | | + + + + + | Oxygen Saturation | 97% | 08/15/2017 8:46 AM | | | | | PST | | + + + + + | Inhaled Oxygen | - | - | | | Concentration | | | | + + + + + | Weight | 71.6 kg (157 lb 13.6 | 08/15/2017 8:37 AM | | | | oz) | PST | | + + + + + | Height | - | - | | + + + + + | Body Mass Index | 27.09 | 10/18/2016 11:04 AM | | | [...] encounter Progress Notes Mike Islas MD - 08/15/2017 8:13 AM PSTFormatting of this note might be differe nt from the original. Hematology/Oncology Progress Note [facility] MD Pt. Name/Age/: Paulette Byrnes 56 y.o. 1960 Med. Record Number: [id number] Date of admission: 08/15/2017 The patient's primary care provider is Kristian Anderson DO. Identifying Statement: Paulette Byrnes is a 56 y.o. female from [address] [place] [address] with Locally Advanced Rectal Cancer. The patient chart and medications were reviewed in detail and the patient was seen and exam ined. History of Present Illnesses, their Current Assessments and Plans: Problem List Rectal cancer Overview ACTIVE DIAGNOSIS: Locally Advanced Rectal Cancer, [id number], Stage IIA. 1[facility] [...] cm within the rectum. Biopsy specimen number [id number] evaluated by Dr. Felipe Nixon of [facility] was notable for a tubular adenoma without high-grade dysplasia or overt carcinoma. This proced ure also included a full colonoscopy through the ostomy were 2 additional polyps were remove d, a tubular adenoma at 35 cm and a hyperplastic polyp at [address] C/A/P at [facility] in [place], [place] demonstrated no evidence of metastatic disease. 4. On September 22, 2016 Dr. Thacker placed in internal jugular Port-A-Cath without complications. 5. MRI of pelvis performed on October 05, 2016 at [facility]: Rectal mass 7.7 cm x 6.2 cm x 9.6 cm in length located within 3 cm of the anal sphincter and 6.4 cm from the anal verge with radi ographic extension though multiple areas of the bowel wall. 6. CT abdomen/pelvis also at [facility] October 05, 2016; large almost completely circumferential r ectosigmoid mass better delineated on the corresponding MRI with adjacent probable abscess. No distant metastases identified. 7. On October 14, 2016 Paulette was evaluated by Dr. Ailyn Wolff and Dr. Shea Mcneill of the [facility] where her case was presented to their tumor board. Clinical exa phillip is notable for an overt rectal carcinoma invading into the vagina. 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 Concerns raised by the [facility] Tumor Board were that the [...] as well as mutation analysis." [id number] Tubulovillous adenoma with high grade dysplasia [...] radiation. 14. Multidisciplinary Care Team Conference at [facility] March 10, 2017; "Given borderline resec tability, [...] resection by Dr. Ailyn Wolff at the [facility]: 06/30/17: Exploratory laparoto my. Extensive lysis of adhesions. Excision of left lower quadrant fistula tract. Total mesor ectal excision, intersphincteric abdominoperineal resection, en bloc resection of left ovary and left fallopian tube and posterior vaginal wall. Placement of a 19-Thai Albert drain th rough the right lower [...] exam on August 12, 2017; Dr. Lea, [facility], [place], [place] ; positive for perianal fistula between anus and vagina. Current Assessment & Plan Paulette Byrnes returned to clinic on 08/15/2017 with her son, for follow up of her loc ally advanced rectal cancer. Interval history is notable for the fact that Paulette underwent mesorectal excision and abdomi noperineal resection on June 30, [address] Ailyn Wolff of the [facility] in [facility]. 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 Pathology was notabl e for residual invasive adenocarcinoma with a positive radial margin. Paulette was evaluated by Dr. Lea of [facility] gynecology on Tuesday, who identified a new fistula in the perineum between the anus and the vagina. Paulette specifically denies any pneumaturia. Clinical exam is notable for the fact that the chronically infected left lower quadrant antonio in has been removed. Laboratory exam is notable for anemia. Assessment. 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 Plan; this was an extended 25 minute office encounter with Paluette reviewing her recent treatm ent history as well as during a warm hand-off to Mery in the infusion suite. Dr. Wolff has recommended two additional cycles of adjuvant FOLFOX chemotherapy, however I ankur d Paulette that her tolerance for additional chemotherapy would be low because of her anemia and that additional chemotherapy at this time would be high-risk due to the possibility of a ne w enterocutaneous fistula exiting the perineum. Therefore I postponed any additional chemotherapy until Paulette can be re-evaluated by Dr. Wolff on August 22, 2017 at [facility]. In the meantime, her anemia was addressed with a transfusion of 2 Units of packed red blood cells. Review of Systems: REVIEW OF SYSTEMS Constitutional: Reports energy level is poor, depends on activity level, "if I do too much it will take it out of me for the next 2-3 days". Reports feeling chilled then really hot, o nset since surgery 06/30/17. Reports one episode of vomiting a couple of weeks ago. Reports a ppetite fluctuates. Denies high fevers, anorexia, nausea, weight loss, or night sweats. Ear, Nose, Mouth, Throat: Denies odynophagia, dysphagia, or tinnitus. Cardiovascular: Denies shortness of breath, dyspnea on exertion, chest pain, palpitations o r orthopnea. Respiratory: Reports recent cough due to "getting over a cold". Denies hemoptysis or sputum production. Gastrointestinal: Reports severe abdominal pain around stoma, resolved after massaging skin around the area. Denies constipation, diarrhea, melena, or bright red blood per rectum. Genitourinary: Reports she has a sarah-rectal fistula 5mm wide per Dr. Lea at appointment o n Tuesday, reports having white drainage "like snot" on pad which is what prompted the appoin tment. Denies hematuria or dysuria. Musculoskeletal: Denies joint pain or tenderness. Neurologic: Reports waking up with headaches, "but I am not sleeping good getting up 3-4 ti mes in the night" onset 3 weeks ago. Reports numbness and tingling in toes, has worsened sin ce surgery. Reports the numbness and tingling in fingers has resolved. Denies visual sheldon es. Endocrine: Denies peripheral edema or heat/cold intolerance. Hematologic: Denies spontaneous bruising or bleeding. Integumentary: Denies rash, wounds or other skin concerns. Pain: Denies pain. Note: Here for follow up, labs, and 3 hour treatment. My chart: Active Scheduled Medications: Current Outpatient [...] Route Frequency Provider Last Rate Last Dose heparin 100 units/mL flush injection 500 Units 5 mL Intercatheter PRN Mike coley MD 500 Units at 08/15/17 1404 Allergies: Allergy: Allergies Allergen Reactions Propoxyphene Na [...] Diagnosis Rectal cancer Lichen sclerosus Objectives: Temp: 36 C (96.8 F) BP: 137/60 Pulse: 92 Resp: 18 SpO2: 97 % on Min/Max Temp past 24 hours:Temp Av.7 C (98 F) Min: 36 C (96.8 F) Max: 37.3 C (99.1 F) No intake or output data in the 24 hours ending 08/15/17 1814 Wt. Admission: Weight: 71.6 kg (157 lb 13.6 oz) Wt. Current: Weight: 71.6 kg (157 lb 13 .6 oz) Wt Readings from Last 3 Encounters: 08/15/17 71.6 kg (157 lb 13.6 oz) 05/16/17 72.8 kg (160 lb 7.9 oz) 05/02/17 73.5 kg (162 lb 0.6 oz) Physical Exam: General: The patient is alert and oriented. No acute distress. Currently off of work. Eyes: Conjunctiva clear. Sclera anicteric. ENMT: Oropharynx [...] Baer., Matt Denney., Fransisca Baltazar., Jason Roque, Thaddeus TLuis Alfredo., Leonila Montes., Danielle, P .P.: Toxicity And [...] as of 08/15/2017 17:38 Ref. Range 08/15/2017 08:10 WBC Latest Ref Range: 4.0 - 11.0 K/uL 8.7 RBC COUNT Latest Ref Range: 3.70 - 5.20 M/uL 3.20 (L) Hgb Latest Ref Range: 11.5 - 16.0 g/dL 7.8 (L) Hct, Final Latest Ref Range: 34.0 - 47.0 % 24.4 (L) MCV Latest Ref Range: 83.0 - 101.0 fL 76.1 (L) MCH Latest Ref Range: 28.0 - 35.0 pg 24.2 (L) MCHC Latest Ref Range: 32.0 - 36.0 g/dL 31.8 (L) RDW-CV Latest Ref Range: <15.0 % 19.2 (H) Platelet Count Latest Ref Range: 140 - 440 K/uL 613 (H) MPV Latest Units: fL 6.1 Absolute Neutrophils Latest Ref Range: 1.80 - 8.50 K/uL 7.30 Absolute Lymphocytes Latest Ref Range: 0.60 - 3.20 K/uL 0.60 Absolute Monocytes Latest Ref Range: 0.00 - 1.00 K/uL 0.50 Absolute Eosinophils Latest Ref Range: 0.00 - 0.40 K/uL 0.10 Absolute Basophils Latest Ref Range: 0.00 - 0.10 K/uL 0.10 % Neutrophils Latest Ref Range: 45.0 - 82.0 % 84.5 (H) % Lymphocytes Latest Ref Range: 20.0 - 45.0 % 7.4 (L) % Monocytes Latest Ref Range: 4.0 - 12.0 % 5.8 % Eosinophils Latest Ref Range: 0.0 - 5.0 % 1.6 % Basophils Latest Ref Range: 0.0 - 1.0 % 0.7 NA Latest Ref Range: 136 - 149 mmol/L 139 K Latest Ref Range: 3.5 - 5.1 mmol/L 4.0 Chloride Latest Ref Range: 98 - 109 mmol/L 105 Carbon dioxide Latest Ref Range: 24 - 31 mmol/L 26 ANION GAP Latest Ref Range: 3 - 16 mmol/L 8 GLUCOSE Latest Ref Range: 70 - 109 mg/dL 93 BUN Latest Ref Range: 7 - 18 mg/dL 8 Creatinine Latest Ref Range: 0.60 - 1.30 mg/dL 0.49 (L) BUN/CREA Unknown 16.3 ALBUMIN Latest Ref Range: 3.2 - 5.0 g/dL 2.5 (L) Albumin/Globulin ratio Latest Ref Range: 0.8 - 2.0 0.7 (L) Total protein Latest Ref Range: 6.0 - 7.8 g/dL 6.1 EGFR IF NOT Latest Ref Range: >=60 mL/min/1.73m2 >60 Calcium Latest Ref Range: 8.3 - 10.5 mg/dL 8.7 ALK PHOS Latest Ref Range: 40 - 110 U/L 99 ALT (SGPT) (REF) Latest Ref Range: 6 - 45 U/L 28 AST (SGOT) (REF) Latest Ref Range: 10 - 42 U/L 26 LDH TOTAL Latest Ref Range: 91 - 180 U/L 134 BILIRUBIN TOTAL Latest Ref Range: 0.1 - 1.5 mg/dL 0.2 GLOBULIN Latest Ref Range: 2.1 - 3.8 g/dL 3.6 SOURCE OF SPECIMEN:A Sigmoid colon, rectum, anus, and posterior SOURCE OF SPECIMEN:B Abdominal wall tract SOURCE OF SPECIMEN:C Left pelvic sidewall FS SOURCE OF SPECIMEN:D Posterior vaginal wall FS SOURCE OF SPECIMEN:E Tissue adjacent to left ureter FS SOURCE OF SPECIMEN:F Small bowel/fistula tract Final Pathologic Diagnosis: A. Sigmoid colon, rectum, anus, posterior vagina, low anterior resection: - Residual invasive adenocarcinoma, moderately differentiated (see cancer synopsis) - Carcinoma invades sarah-rectal soft tissue - Inked radial resection margin focally positive for carcinoma - Eleven lymph nodes negative for carcinoma (0/11) B. 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 Left pelvic sidewall, biopsy: - Negative for malignancy D. Posterior vaginal wall, biopsy: - Negative for malignancy E. Tissue adjacent to left ureter, biopsy: - Negative for malignancy F. Small bowel fistula tract, excision: - Small bowel with transmural defect and acute serositis - Negative for malignancy Comment: The carcinoma is focally present at the inked and cauterized radial margin (slide A3). Colon and Rectum Resection Cancer Synopsis Specimens Involved Specimens: A: Sigmoid colon, rectum, anus, and posterior Specimen: Sigmoid colon Rectum Anus Procedure: Low anterior resection Tumor Site:Rectum Tumor Size:Cannot be determined:5.8 Macroscopic Tumor Perforation: Not identified Histologic Type:Adenocarcinoma Histologic Grade: Low-grade (well to moderately differentiated) Tumor invades through the muscularis propria into the subserosal adipose tissue or the nonperitonealized pericolic or perirectal soft tissues but does not extend to the serosal surface Margins Proximal Margin:Negative for invasive carcinoma Distal Margin: Negative for invasive carcinoma Circumferential (Radial) Margin: Positive for invasive carcinoma (tumor present 0-1 mm from margin) Treatment Effect: Present Residual cancer with evident tumor regression, but more than single cells or rare small groups of cancer cells (partial response, score 2) Angiolymphatic Invasion: Absent Tumor Budding: No tumor budding seen Perineural Invasion: Absent Tumor Deposits: Not identified AJCC Stage (7th Edition) (pTNM) TNM Descriptors:y Primary Tumor (pT): pT3 Regional Lymph Nodes (pN):pN0 Number of regional lymph nodes involved: 0 Number of regional lymph nodes examined: 11 Case reviewed by: José Miguel Cazares M.D./ Surgical Pathology Fellow Rafy Wood M.D., Ph.D./ Pathologist Intraoperative consultation (frozen section) diagnosis: FSC 1: Left pelvic sidewall - Negative for malignancy. FS D1: Posterior vaginal wall -Negative for malignancy FSE 1: Tissue adjacent to left ureter -Negative for malignancy Intraoperative consultation confirmed by Dmitriy Burch M.D./Pathologist Clinical History: 56 year old female with history of locally advanced rectal cancer status post neoadjuvant chemo-radiation. Gross Description: Received are 6 specimens labeled patient's name (initials GR) these and . A: Sigmoid colon, rectum and anus and posterior vagina: Received fresh labeled "sigmoid colon rectum and posterior vagina" is a colectomy specimen that measures 37 cm in length, recent meters in diameter and the attached anus measures 1.5 cm in length and 3.5 cm in diameter. As per the surgeon no vaginal mucosa is present, however the underlying musculature is. Also per the surgeon a 4.0 x 2.5 cm transmural defect is identified on the right anterior rectal wall and is inked green. The distal/anal resection margins is received stapled, and following removal of the staple line the resection margin is inked blue. The radial/mesenteric margin is inked black. The proximal end of the bowel ends in a blind pouch consistent with prior colostomy. The specimen is opened to show a 5.8 x 3.0 cm circumferential scar, 7.0 cm from the distal resection margin, and 27 cm from the proximal resection margin. The proximal mucosa is looped back upon itself adherent to the posterior rectal wall, this area of adhesion is excised 6.0 cm to the proximal mucosal pouch. The cut surfaces of the scar/lesion are densely fibrous 0.2 cm to the radial margin. The cut surface is also remarkable for an abscess cavity. The superior and inferior portion of the scar are erythematous and granular. Within the anal mucosa is a 0.6 x 0.6 x 0.4 cm white-pink well circumscribed nodule, grossly abutting the resection margin. No additional gross findings. [employer] Superintendent sections are submitted. B: Abdominal wall tract: Received in formalin labeled "abdominal wall tract" is a 4.2 x 3.9 x 2.1 cm aggregate of yellow-brown fibroadipose tissue fragments. Within the tissue fragment is cylindrical with a lumen and measures 2.8 cm in length and 1.2 cm diameter. [employer] Well Services Superintendent sections are submitted. C: Left pelvic sidewall: Received fresh for intraoperative consultation labeled "left pelvic sidewall" is a 1.5 x 1.0 x 0.3 cm portion of white-pink soft tissue that is submitted entirely for frozen section analysis and subsequently for permanent sections. D: Posterior vaginal wall: Received fresh for intraoperative consultation labeled "posterior vaginal wall" is a 1.0 x 0.7 x 0.5 cm portion of white-pink soft tissue that is submitted entirely for frozen section analysis and subsequently for permanent sections. E: Tissue adjacent to left ureter: Received fresh for intraoperative consultation labeled "tissue adjacent to left ureter" is a 2.1 x 1.0 x 0.7 cm aggregate of white-pink soft tissue fragments that are submitted entirely for frozen section analysis and subsequently for permanent sections. F: Small bowel fistula tract: Received in formalin labeled "small bowel fistula tract" is an unoriented segment of disrupted bowel that measures 6.8 cm in length, 3.9 cm in diameter with a 0.6 cm average wall thickness. The serosal surface is remarkable for a 3.5 cm defect that has been sutured together. The defect is inked green. The mucosa is white-pink and edematous. No mucosal lesions are identified. [employer] Services Superintendent sections are submitted. Cassette Index: A1, distal resection margin en face A2 and A3, scar 2 radial resection margin A4 scar 2 abscess cavity A5 proximal granular and erythematous mucosa A7, distal granular and erythematous mucosa A8 and A9, additional in home sales representative sections of the scar A 10 anterior defect A 11, bowel looped upon itself to scar A 12 through A15, candidate lymph nodes A 16 through A 18, pericolonic adipose tissue A19, anal nodule B1, abdominal wall tract C1, left pelvic sidewall, frozen section remnant D1, posterior vaginal wall, frozen section remnant E1, tissue adjacent to left ureter, frozen section remnant F1 and [id number] bowel fistula tract, perpendicular F3 and F4 4 transmural defect NL My electronic signature indicates that I have personally reviewed all diagnostic slides, the gross and/or microscopic portion of this report and formulated the final diagnosis. Electronically signed by:Rafy Wood M.D., Ph.D Pathologist Date Completed: 07/05/20171:43PM Pharmacovigilance: Results for PAULETTE BYRNES ( ) as of 08/15/2017 17:38 Ref. Range 08/15/2017 09:26 ABO Unknown O Rh Type Unknown Positive Antibody Screen Unknown Negative Palliative Care: Patient's Medications New Prescriptions No medications on file Modified Medications No medications on file Discontinued Medications BIOTIN 10 MG CAPS Take by mouth. For Hair, skin, nails. FLUCONAZOLE (DIFLUCAN) 200 MG TABLET Take 1 tablet by mouth Daily. HYDROCODONE-ACETAMINOPHEN (NORCO) 5-325 MG PER TABLET Take 1-2 tablets by mouth every 4 hours as needed for Pain. METRONIDAZOLE (FLAGYL) 500 MG TABLET Take 500 mg by mouth 3 times daily. MUPIROCIN (BACTROBAN) 2% OINTMENT Apply topically 2 times daily. Procedure: Transfuse 2 units packed red blood cells. Portions of this chart may have been created with [employer] voice recognition software. Occasi onal wrong-word or [...]
--- OUTSIDE RECORDS SUMMARY | ~2019-06-11 | XMS | Encounter Summary ---
Demographics + + + | Address | [address] | | | [place] [address] | + + + | Home Phone [...] Organization | [facility] | | | and [place] | + + + | Address | Unknown | + + + | Phone | Unavailable | + + + Support + + + + + | Name | Relationship | Address | Phone | + + + + + | Lamar Phillips | REZA | [place] [address] | | + + + + + Care Team Providers + +------+ + | Care Binder And Wrapper Packer Name | Role | Phone | + [...] + + | 01/10/ | Hospital | [facility] | Janel, | Rectal cancer (HCC) | | 2017 | Encounter | MED CTR CHEMO | Mike White MD [address] | | | | | INFUS[address] | [facility] | | | | | [place], | [place] [address] | | | | | [place] [address] | [phone] | | | | | [phone] | | | +--------+ + + + [...] documented as of this encounter Progress Notes Juventino, Jada D, RN - 01/10/2017 11:30 AM PDTPatient discharged in satisfactory conditi [...] + | CBC WITH | STAT | 01/10/2017 | Rectal cancer | Results for this | | DIFFERENTIAL | | 9:06 AM | (HCC) | procedure are in the | | | | PDT | | results section. | + +--------+ + + + | LACTATE | STAT | 01/10/2017 | Rectal cancer | Results for this | | DEHYDROGENASE | | 9:06 AM | (HCC) | procedure are in the | | | | PDT | | results section. | + +--------+ + + + | COMPREHENSIVE | STAT | 01/10/2017 | Rectal cancer | Results for this | | METABOLIC PANEL | | 9:06 AM | (HCC) | procedure are in the | | | | PDT | | results section. | + +--------+ + + + documented in this encounter Results CBC with Differential (01/10/2017 9:06 AM PDT) + + + + + + | Component | Value | Ref Range | Performed | Pathologist | | | | | At | Signature | + + + + + + | WBC | 8.1 | 4.0 - 11.0 K/uL | [facility] | [facility] | [facility] | | | | | | [facility] - | | | | | | LABORATORY | | + + + + + + | RBC | 4.04 | 3.70 - 5.20 | [facility] | | | | | M/uL | [facility] | | | | [...] + + + + | Hematocrit | 33.2 (L) | 34.0 - 47.0 % | [facility] | | | [facility] | | | | | [facility] | | | | | | [facility] - | | | | | | LABORATORY | | + + + + + + | MCV | 82.3 (L) | 83.0 - 101.0 fL | [facility] | | | | | [facility] | [facility] | [facility] | | | | | | [facility] - | | | | | | LABORATORY | | + + + + + + | MCH | 27.3 (L) | 28.0 - 35.0 pg | [facility] | | | | | [facility] | [facility] | | | | | | [facility] - | | | | | | LABORATORY | | + + + + + + | MCHC | 33.1 | 32.0 - 36.0 | [facility] | | | | | g/dL | [facility] | | | | | | [facility] | | | | | | C[facility] - | | | | | | LABORATORY | | + + + + + + | RDW-CV | 22.1 (H) | <15.0 % | [facility] | | | | | [facility] | | [facility] | [facility] | | | | | | CENTER - | | | | | | LABORATORY | | + + + + + + | Platelet | 219 | 140 - 440 K/uL | [facility] | | | Count | | | [facility] | | | | | [facility] | | | | | | CENTER - | | | | | | LABORATORY | | + + + + + + | MPV | 6.8 | fL | [facility] | | | | | | [facility] | | [facility] | [facility] | | | | | | C[facility] - | | | | | | LABORATORY | | + + + + + + | % | 73.2 | 45.0 - 82.0 % | [facility] | | | Neutrophils | | | [facility] | | | | | | [facility] | | | | | | CENTER - | | | | | | LABORATORY | | + + + + + + | % | 11.7 (L) | 20.0 - 45.0 % | [facility] | | | Lymphocytes | | | [facility] | | | | | | [facility] | | | | | | CENTER - | | | | | | LABORATORY | | + + + + + + | % Monocytes | 10.8 | 4.0 - 12.0 % | [facility] [...] + + + + | Absolute | 5.90 | 1.80 - 8.50 | [facility] | | | Neutrophils | | K/uL | [facility] | | | | | | [facility] | | | | | | CENTER - | | | | | | LABORATORY | | + + + + + + | Absolute | 1.00 | 0.60 - 3.20 | [facility] | | | Lymphocytes | | K/uL | [facility] | | | | | | [facility] | | | | | | CENTER - | | | | | | LABORATORY | | + + + + + + | Absolute | 0.90 | 0.00 - 1.00 | [facility] | [...] [address] | [place] | [phone] | | [facility] | | [address] | | | - LABORATORY | | | | + + + + + Comprehensive Metabolic Panel (01/10/2017 9:06 AM PDT) + + + + + [...] + + + + | K | 3.8 | 3.5 - 5.1 | [facility] | | | | | mmol/L | [facility] | | | | | | [facility] | | | | | | CENTER - | | | | | | LABORATORY | | + + + + + + | Cl | 107 | 98 - 109 mmol/L | [facility] [...] + + + | Anion Gap | 6 | 3 - 16 mmol/L | [facility] | | | | | | [facility] | | | | | | [facility]ICAL | | | | | | CENTER - | | | | | | LABORATORY | | + + + + + + | Glucose | 119 (H) | 70 - 109 mg/dL | [...] + + + + | Creatinine | 0.60 | 0.60 - 1.30 | [facility] | [...] mL/min/1.73m2 | [facility] | | | STATELESS | RATE,ESTIMATED | | MEDICAL | | | | mL/min/1.24k2Siqn than | | CENTER - | | [...] + + + + | Bilirubin | 0.5Comment: This is an | 0.1 - 1.5 [...] + + + + | AST | 28Comment: This is an | 10 - 42 [...] + + + + | ALT | 24Comment: This is an | 6 - 45 [...] + + + + | Alkaline | 97Comment: This is an | 40 - 110 [...] + + + + | BUN/Creatin | 23.3 | | [facility] | | | ine [...] + | [facility] | [address] | [place] | [phone] | | [facility] | | [address] | | | - LABORATORY | | | | + + + + + Lactate Dehydrogenase (01/10/2017 9:06 AM PDT) + +-------+ + + + | Component | Value | Ref Range | Performed | Pathologist | | | | | At | Signature | + +-------+ + + + | LDH TOTAL | 160 | 91 - 180 U/L | [facility] | | | | | | [facility] | | | | | | MEDICAL [...] ST. | [address] | [place] | [phone] | | [facility] | | [address] | | | - LABORATORY | | [...] | + +--------+ + +-------+------+ | fluorouracil 2,575 mg in sodium | Given | 01/11/20 | 2,575 mg | 0.5 | | | chloride 0.9% 32.5 mL CADD PUMP | | 17 11:26 | | mL/hr | | | chemo infusion 2,575 mg (rounded | | AM PDT | | | | | from 2,583 mg = 225 mg/m2/day | | | | | | | 1.64 m2 Treatment plan adjusted | | | | | | | BSA), Intravenous, Administer | | | | | | | over 168 Hours, EVERY 7 DAYS, | | | | | | | First dose on Tue01/10/17 at | | | | | | | 1100, OUTPATIENT Chemotherapy: | | | | | [...]
--- OUTSIDE RECORDS SUMMARY | ~2019-06-11 | XMS | Encounter Summary ---
Demographics + + + | Address | [address] | | | [place] [address] | + + + | Home Phone | | + + + | Preferred Language | Unknown | + + + | Marital Status | | + + + | Spiritism Affiliation | Unknown | + + + | Race | Unknown | + + + | Ethnic Group | Unknown | + + + Author + + + | Author | [facility] | | | and [place] | + + + | Organization | [facility] | | | and [place] | + + + | Address | Unknown | + + + | Phone | Unavailable | + + + Support + + + + + | Name | Relationship | Address | Phone | + + + + + | Lamar Phillips | REZA | [place] [address] | | + + + + + Care Team Providers + +------+ + | Care Tire Buster Name | Role | Phone | + [...] neoplasm of | Mike C, | [address] | | | | | rectum (HCC) | MD [address] | [place], | | | | | Procedures | [address] | [place] [address] | | | | | [place] | [place], | Phone: | | | | | [place] | [place] [address] | [phone] | | | | | INJECTION, | Phone: | Fax: | | | | | [address] [place] | [phone] | [phone] | | | | | ONDANSETRON | Fax: | | | | | | HCL | [phone] | | | | | | INJECTION, 1 | | | | | | | MG ND | | | | | | | DEXAMETHASON | | | | | | | E SODIUM | | | | | | | PHOS, 1 MG | | | | | | | ND | | | | | | | FOSAPREPITAN | | | | | | | T INJECTION, | | | | | | | 1 MG ND | | | | | | | LORAZEPAM | | | | | | | INJECTION, 2 | | | | | | | MG ND | | | | | | | OXALIPLATIN, | | | | | | | .5 MG ND | | | | | | | LEUCOVORIN | | | | | | | CALCIUM | | | | | | | INJECTION, | | | | | | | 50 MG ND | | | | | | | DIPHENHYDRAM | | | | | | | INE HCL | | | | | | | INJECTIO, 50 | | | | | | | MG ND | | | | | | | METHYLPREDNI | | | | | | | SOLONE | | | | | | | INJECTION, | | | | | | | 125 MG ND | | | | | | | ALBUTEROL | | | | | | | COMP CON, 1 | | | | | | | MG ND | | | | | | | ALBUTEROL | | | | | | | NON-COMP | | | | | | | CON, 1 MG | | | | | | | ND | | | | | | | INJECTION, | | | | | | | FAMOTIDINE, | | | | | | | 20 MG ND | | | | | | | NORMAL | | | | | | | SALINE | | | | | | | SOLUTION | | | | | | | INFUS, 500 | | | | | | | ML ND | | | | | | | NORMAL | | | | | | | SALINE | | | | | | | SOLUTION | | | | | | | INFUS, 250 | | | | | | | ML ND | | | | | | | STERILE | | | | | | | WATER/SALINE | | | | | | | , 10 ML ND | | | | | | | CHEMOTHER, | | | | | | | IV PUSH,EA | | | | | | | ADD DRUG ND | | | | | | | CHEMOTHER, | | | | | | | IV INFUSION, | | | | | | | 1 HR ND | | | | | | | CHEMOTHER, | | | | | | | IV INFUSION, | | | | | | | EA HR ND | | | | | | | CHEMOTHER,NO | | | | | | | N-HORMONE | | | | | | | ANTI-NEOPL, | | | | | | | SUB-Q/IM ND | | | | | | | CHEMOTHER | | | | | | | HORMON | | | | | | | ANTINEOPL | | | | | | | SUB-Q/IM ND | | | | | | | NA FERRIC | | | | | | | GLUCONATE | | | | | | | COMPLEX, | | | | | | | 12.5 MG ND | | | | | | | IRON SUCROSE | | | | | | | INJECTION, | | | | | | | 1 MG | | | +--------+--------+ + + + + Encounter Details +--------+ + + + + | Date | Type | Department | Care Team | Description | +--------+ + + + + | 12/13/ | Hospital | [facility] | Janel, | Rectal cancer (HCC) | | 2017 | Encounter | MED CTR CHEMO | Mike White MD [address] | | | | | [address] | [facility] | | | | | [address] [place], | [place] [address] | | | | | [place] [address] | [phone] | | | | | [phone] | | | +--------+ + + + [...] encounter Progress Notes Fabienne Gates RN - 12/13/2016 1:40 PM PDTDischarged to home in satisfactory condition , ambulatory, to home with pump infusing.Electronically signed by Fabienne Gates RN at 2:33 PM PDTdocumented in this encounter Plan of Treatment Not on filedocumented as of this encounter Procedures + +--------+ + + + | Procedure Name | Priori | Date/Time | Associated Diagnosis | Comments | | | ty | | | | + +--------+ + + + | CBC WITH | STAT | 12/13/2016 | Rectal cancer | Results for this | | DIFFERENTIAL | | 9:34 AM | (HCC) | procedure are in the | | | | PDT | | results section. | + +--------+ + + + | LACTATE | STAT | 12/13/2016 | Rectal cancer | Results for this | | DEHYDROGENASE | | 9:34 AM | (HCC) | procedure are in the | | | | PDT | | results section. | + +--------+ + + + | COMPREHENSIVE | STAT | 12/13/2016 | Rectal cancer | Results for this | | METABOLIC PANEL | | 9:34 AM | (HCC) | procedure are in the | | | | PDT | | results section. | + +--------+ + + + documented in this encounter Results CBC with Differential (12/13/2016 9:34 AM PDT) + + + + + [...] + + + + | RBC | 4.20 | 3.70 - 5.20 | [facility] | [...] + + + + | Hematocrit | 33.6 (L) | 34.0 - 47.0 % | [facility] | | | | | [facility] | | | | | | [facility] | | | | | | CENTER - | | | | | | LABORATORY | | + + + + + + | MCV | 80.0 (L) | 83.0 - 101.0 fL | [facility] | | | | | | [facility] | | | | | | [facility] | | | | | | CENTER - | | | | | | LABORATORY | | + + + + + + | MCH | 25.7 (L) | 28.0 - 35.0 pg | [...] + + + + | RDW-CV | 22.7 (H) | <15.0 % | [facility] | | | | | [facility] | | | | | | [facility] | | | | | | CENTER - | | | | | | LABORATORY | | + + + + + + | Platelet | 295 | 140 - 440 K/uL | [facility] | | | Count | | | [facility] | | | | | | [facility] | | | | | | CENTER - | | | | | | LABORATORY | | + + + + + + | MPV | 6.6 | fL | [facility] | | | | | | [facility] | | | | | | [facility]ICAL | | | | | | CENTER - | | | | | | LABORATORY | | + + + + + + | % | 69.7 | 45.0 - 82.0 % | [facility] | | | Neutrophils | | | [facility] | | | | | | [facility]ICAL | | | | | | CENTER - | | | | | | LABORATORY | | + + + + + + | % | 15.9 (L) | 20.0 - 45.0 % | [...] + + + + | % | 4.4 | 0.0 - 5.0 % | [facility] [...] + + + + | Absolute | 4.70 | 1.80 - 8.50 | [facility] | | | Neutrophils | | K/uL | [facility] | | | | | | MEDICAL | | | | | | CENTER - | | | | | | LABORATORY | | + + + + + + | Absolute | 1.10 | 0.60 - 3.20 | [facility] | [...] + | [facility] | [address] | [place] | [phone] | | [facility] | | [address] | | | - LABORATORY | | | | + + + + + Comprehensive Metabolic Panel (12/13/2016 9:34 AM PDT) + + + + + + | Component | Value | Ref Range | Performed | Pathologist | | | | | At | Signature | + + + + + + | Na | 145 | 136 - 149 | [facility] | [...] + + + + | Glucose | 146 (H) | 70 - 109 mg/dL | [facility] | | | | | | [facility] | | | | | | [facility] | | | | | | CENTER - | | | | | | LABORATORY | | + + + + + + | BUN | 8 | 7 - 18 mg/dL | [facility] | | | | | | [facility] | | | | | | [facility]ICAL | | | | | | CENTER - | | | | | | LABORATORY | | + + + + + + | Creatinine | 0.63 | 0.60 - 1.30 | [facility] | [...] | | | FILTRATION | mL/min/1.73m2 | [facility] | | | [place] | RATE,ESTIMATED | | MEDICAL | | | | mL/min/1.86s2Jrzr than | | CENTER - | | [...] + + + + | Calcium | 9.3 | 8.3 - 10.5 | [facility] | | | | | mg/dL | [facility] | | | | | | MEDICAL | | | | | | CENTER - | | | | | | LABORATORY | | + + + + + + | Albumin | 3.1 (L) | 3.2 - 5.0 g/dL | [facility] | | | | | | [facility] | | | | | | MEDICAL [...] + + + + | Total | 6.3 | 6.0 - 7.8 g/dL | [facility] [...] + + + + | ALT | 25Comment: This is an | 6 - 45 [...] + + + + | Alkaline | 110Comment: This is an | 40 - 110 [...] + + + + | BUN/Creatin | 12.7 | | [facility] | | | ine [...] [address] | [place] | [phone] | | [facility] | | [address] | | | - LABORATORY | | | | + + + + + Lactate Dehydrogenase (12/13/2016 9:34 AM PDT) + +-------+ + + + | Component | Value | Ref Range | Performed | Pathologist | | | | | At | Signature | + +-------+ + + + | LDH TOTAL | 167 | 91 - 180 U/L | [facility] | | | | | | [facility] [...] [facility] | [address] | [place], [place] | [phone] | | [facility] | | [address] | | | - LABORATORY | | [...] 4,050 mg in sodium | Given | 12/14/19 | 4,050 mg | 2 mL/hr | | | chloride 0.9% 11 mL CADD PUMP | | 17 1:47 | | | | | chemo infusion [...] | | | | | | on Tue12/13/16 at 1345, | | | | | | | [...] 150 mg in | New Bag | 12/14/19 | 150 mg | 450 | | | sodium chloride 0.9% 150 mL IVPB | | 17 11:11 | | mL/hr | | | 150 mg, Intravenous, Administer | | AM PDT | | | | | over 20 Minutes, ONCE, Mon | | | | | | | 12/13/16 at 1100, For 1 dose, Do | | | | | | | not shake bag., | | | | | | + +---------+ +--------+-------+---+ +---+---+ | | | +---+---+ + +---------+ +--------+--------+---+ | leucovorin 340 mg in dextrose | New Bag | 12/14/19 | 340 mg | 133.5 | | | 5% 250 mL infusion 340 mg | | 17 11:38 | | mL/hr | | | (rounded from 338 mg = 200 mg/m2 | | AM PDT | | | | | | | | | | | | 1.69 m2 Order-specific BSA), | | | | | | | Intravenous, Administer over 2 | | | | | | | Hours, ONCE, 12/13/16 at 1115, | | | | | | | For 1 dose, Administer via | | | | | | | y-site with oxaliplatin, | | | | | | + +---------+ +--------+--------+---+ +---+---+ | | | +---+---+ + +---------+ +---+-------+---+ | ondansetron (ZOFRAN) 8 mg, | New Bag | 12/14/19 | | 204 | | | dexamethasone (DECADRON) 4 mg in | | 17 10:53 | | mL/hr | | | sodium chloride 0.9% 50 mL IVPB | | AM PDT | | | | | Intravenous, Administer over 16 | | | | | | | Minutes, ONCE, 12/13/16 at | | | | | | | 1045, For 1 dose, Administer 30 | | | | | | | minutes prior to chemotherapy., | | | | | | + +---------+ +---+-------+---+ +---+---+ | | | +---+---+ + +---------+ +--------+-------+---+ | oxaliplatin (ELOXATIN) 135 mg | New Bag | 12/14/19 | 135 mg | 125 | | | in dextrose 5% 223 mL chemo | | 17 11:38 | | mL/hr | | | infusion 135 mg (rounded from | | AM PDT | | | | | 135.2 mg = 80 mg/m2 | | | | | | | 1.69 m2 Order-specific BSA), | | | | | | | Intravenous, Administer over 2 | | | | | | | Hours, ONCE, 12/13/16 at 1115, | | | | | | | [...]
--- OUTSIDE RECORDS SUMMARY | ~2019-06-11 | XMS | Encounter Summary ---
Demographics + + + | Address | [address] | | | [place] [address] | + + + | Home Phone | | + + + | Preferred Language | Unknown | + + + | Marital Status | Single | + + + | Hinduism Affiliation | NON | + + + [...] Providers + +------+ + | Care Glass Artist Name | Role | Phone | + +------+ + | Kristian Anderson DO | PCP | | + +------+ + Encounter Details +--------+ + + + + | Date | Type | Department | Care Team | Description | +--------+ + + + + | 05/29/ | Hospital | Wound and Ostomy | Delores Avilez, | | | 2017 | Encounter | Care [address] | RN, CWOCN [address] | | | | [address] | [address] | | | | | [facility] | [place], [place] | | | | | [place] [address] | [address] | | | | | [place], [place] | | | | | | [address] | | | | | | [phone] | | | +--------+ + + + [...] + + + +---------+ + + | MAGNESIUM ORAL | Take 250 mg by mouth | | 0 | | | | | once daily. | | | | | + + + +---------+ + + | MULTIVITAMIN ORAL | Take 1 tablet by | | 0 | | | | | mouth once daily. | | | | | + + + +---------+ + + | NYSTATIN MISC | 100 mg two times | | 0 | | | | | daily (every | | | | | | | ). | | | | | | | ointment | | | | | + + + +---------+ + + | Ostomy Supplies | Colostomy | 1 each | 11 | 05/29/ | | | misc | [id number]: CO | | | 18 | | | | 191077, Skin prep: | | | | | | | 3M 3344 (30/mo), Adh | | | | | | | Rem HO 7760 | | | | | | | (1box/mo), Rings: HO | | | | | | | 8805 (10/mo), | | | | | | | [place]odorant[place] [address] | | | | | | | (60/mo), Pwdr: CT | | | | | | | [id number] (1oz/mo), | | | | | | | Belt: Lrg (2/mo) | | | | | | | and Irrigation [place] | | | | | | | 096245, [place] | | | | | | | [id number] | | | | | + + [...] | | | | | [place], | | | | | | [place] [address] | | | | | | [phone] | | | | | | | | +--------+---------+ + + + documented as of this encounter Visit Diagnoses Not on filedocumented in this encounter"
--- OUTSIDE RECORDS SUMMARY | ~2019-06-11 | XMS | Encounter Summary ---
Demographics + + + | Address | [address] | | | [place] [address] | + + + | Home Phone | | + + + | Preferred Language | Unknown | + + + | Marital Status | | + + + | Gnosticist Affiliation | Unknown | + + + | Race | Unknown | + + + | Ethnic Group | Unknown | + + + Author + + + | Author | [facility] | | | and [place] | + + + | Organization | [facility] | | | and [place] | + + + | Address | Unknown | + + + | Phone | Unavailable | + + + Support + + + + + | Name | Relationship | Address | Phone | + + + + + | Lamar Phillips | REZA | [place] [address] | | + + + + + Care Team Providers + +------+ + | Care Frame Polisher Name | Role | Phone | + +------+ + | Kristian Anderson DO | PCP | | + +------+ + Reason for Visit + + + | Reason | Comments | + + + | Medication Orders | | + + + Encounter Details +--------+ + + + + | Date | Type | Department | Care Team | Description | +--------+ + + + + | 04/12/ | Telephone | [facility] | Mychal Andre, | Medication Orders | | 2018 | | [facility] [place] | [address] | | | | [address], | [place] [address] | | | | | [address] [place] | [place] | | | | | [place] [address] | [address] | | | | | [phone] | | | +--------+ + + + [...]
--- OUTSIDE RECORDS SUMMARY | ~2019-06-11 | XMS | Encounter Summary ---
Demographics + + + | Address | [address] | | | [place] [address] | + + + | Home Phone | | + + + | Preferred Language | Unknown | + + + | Marital Status | | + + + | Spiritism Affiliation | Unknown | + + + | Race | Unknown | + + + | Ethnic Group | Unknown | + + + Author + + + | Author | [facility] | | | and [place] | + + + | Organization | [facility] | | | and [place] | + + + | Address | Unknown | + + + | Phone | Unavailable | + + + Support + + + + + | Name | Relationship | Address | Phone | + + + + + | Lamar [place] | REZA | [place] [address] | | + + + + + Care Team Providers + +------+ + | Care Delivery Tech Name | Role | Phone | + +------+ + | Kristian Anderson DO | PCP | | + +------+ + Reason for Visit + + + | Reason | Comments | + + + | IDT Note | | + + + Encounter Details +--------+ + + + + | Date | Type | Department | Care Team | Description | +--------+ + + + + | 12/31/ | Telephone | [facility] | Jasmin Marie, | ROSELINE Note | | 2016 | | [facility] | RN | | | | | ONCOLOGY [address] | | | | | | [place], | | | | | | [place] [address] | | | | | | [phone] | | | +--------+ + + + [...]
--- OUTSIDE RECORDS SUMMARY | ~2019-06-11 | XMS | Encounter Summary ---
Demographics + + + | Address | [address] | | | [place] [address] | + + + | Home Phone | | + + + | Preferred Language | Unknown | + + + | Marital Status | | + + + | Yarsani Affiliation | Unknown | + + + | Race | Unknown | + + + | Ethnic Group | Unknown | + + + Author + + + | Author | [facility] | | | and [place] | + + + | Organization | [facility] | | | and [place] | + + + | Address | Unknown | + + + | Phone | Unavailable | + + + Support + + + + + | Name | Relationship | Address | Phone | + + + + + | Lam[place] | REZA | [place] [address] | | + + + + + Care Team Providers + +------+ + | Care Manager Retail Sales Name | Role | Phone | + +------+ + | Kirstian Anderson DO | PCP | | + +------+ + Encounter Details +--------+ + + + + | Date | Type | Department | Care Team | Description | +--------+ + + + + | 04/18/ | Hospital | [facility] | Calvin Landrum | Rectal cancer (HCC) | | 2017 | Encounter | [facility] MED[facility] | MD Mike [address] | (Primary Dx) | | | | ONCOLOGY CLINIC [address] [place] | | | | | [address] [place] | [place] [address] | | | | | [place] [address] | [phone] | | | | | [phone] | | | +--------+ + + + [...] erent from the original. Hem-Onc Progress Note [facility] Pt. Name/Age/: Jenn Parada 56 y.o. 1960 Med. Record Number: [id number] Date of admission: 04/18/2017 Assessment and plan: [...] tx for this by Dr. Thacker in [place]. Pain: Denies pain. Review of systems as [...] Electronically signed by: Calvin Landrum, 04/18/2017 8:53 [facility] TIME SPENT 25 MIN. > 50% AT BEDSIDE, WITH FAMILY/PATIENT IN CARE AND CAUSTICS LOADER ON UNIT AND CO ORDINATION OF CARE Portions of this chart may have been created with [employer] voice recognition software. Occasi onal wrong-word or [...] tx for this by Dr. Thacker in [place]. Pain: Denies pain. Note: Pt is here [...]
--- OUTSIDE RECORDS SUMMARY | ~2019-06-11 | XMS | Encounter Summary ---
Demographics + + + | Address | [address] | | | [place] [address] | + + + | Home Phone | | + + + | Preferred Language | Unknown | + + + | Marital Status | Single | + + + | Faith Affiliation | NON | + + + [...] Team Providers + +------+ + | Care Machining Manager Name | Role | Phone | [...] | Malignant | Marty Toledo MD | [address] | | | | | neoplasm of | [place] | [address] | | | | | rectum | SURGICAL | [facility] | | | | | | CLIN[facility] [address] | [place], [place] | | | | | | [address] | [address] | | | | | | AVE | Phone: | | | | | | [place], | [phone] | | | | | | [place] [address] | Fax: | | | | | | Phone: | [phone] | | | | | | [phone] | | | | | | | Fax: | | | | | | | [phone] | | +--------+--------+ + + + + Encounter Details +--------+---------+ + + + | Date | Type | Department | Care Team | Description | +--------+---------+ + + + | 10/05/ | Office | Digestive Health | Ailyn Wolff MD | CA of rectum (HCC) | | 2017 | Visit | [place] [facility] [address] | [address] | (Primary Dx) | | | | [address] | [address] [place], | | | | | Mailcode: [place] | [place] [address] | | | | | for Health and | [phone] | | | | | [facility] [address] | | | | | | [place], [place] | | | | | | [address] | | | | | | [phone] | | | +--------+---------+ + + + [...] IV contrast from today. Present at the [facility] Multidisciplinary GI Oncology Conference on 10/07/16. Further recommendations to follow. Likely neoadjuvant chemoradiation. Plans to start chemotherapy on 10/18/16. Radiation will start a week later. Cc: rad onc in [place]. [facility]'sElectronically signed by Ailyn Wolff MD at 017 [...] rectal bleeding on 07/19/16 [facility] ED CT abdomen/pelvis with IV [...] (10/05/16) no liver metastases rigid proctoscopy by ri (10/05/16) 6 cm from anal verge presented at the [facility] Multidisciplinary GI Oncology Conference on 10/07/16 [...] IV contrast from today. Present at the [facility] Multidisciplinary GI Oncology Conference on 10/07/16. Further [...] bleeding on 07/19/16. She went to the [facility] ED. 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 47 minute document review cc: Dr. Alfaro, Radiation Oncology at [facility] in [place]. documented in this encounter Plan of Treatment +--------+---------+ + + + | Date | Type | Specialty | Care Team | Description | +--------+---------+ + + + | 06/18/ | Office | Surgery | Ailyn Wolff MD | | | 2019 | Visit | | [address] | | | | | | [place], | | | | | | [place] [address] | | | | | | [phone] | | | | | | | | +--------+---------+ + + + documented as of this encounter Procedures + +--------+ + + + | Procedure Name | Priori | Date/Time | Associated Diagnosis | Comments | | | ty | | | | + +--------+ + + + | [place] | Routin | 10/28/2016 | CA of [...]
--- OUTSIDE RECORDS SUMMARY | ~2019-06-11 | XMS | Encounter Summary ---
Demographics + + + | Address | [address] | | | [place] [address] | + + + | Home Phone | | + + + | Preferred Language | Unknown | + + + | Marital Status | | + + + | Quaker Affiliation | Unknown | + + + | Race | Unknown | + + + | Ethnic Group | Unknown | + + + Author + + + | Author | [facility] | | | and [place] | + + + | Organization | [facility] | | | and [place] | + + + | Address | Unknown | + + + | Phone | Unavailable | + + + Support + + + + + | Name | Relationship | Address | Phone | + + + + + | Lamar Phillips | REZA | [place] [address] | | + + + + + Care Team Providers + +------+ + | Care Guide Changer Name | Role | Phone | + [...] neoplasm of | Mike C, | [address] | | | | | rectum (HCC) | MD [address] | [place], | | | | | Procedures | [address] | [place] [address] | | | | | [place] | [place], | Phone: | | | | | [place] | [place] [address] | [phone] | | | | | INJECTION, | Phone: | Fax: | | | | | [address] [place] | [phone] | [phone] | | | | | [place] | Fax: | | | | | | HCL | [phone] | | | | | | INJECTION, 1 | | | | | | | MG [place] | | | | | | | DEXAMETHASON | | | | | | | E SODIUM | | | | | | | PHOS, 1 MG | | | | | | | [place] | | | | | | | FOSAPREPITAN | | | | | | | T INJECTION, | | | | | | | 1 MG [place] | | | | | | | LORAZEPAM | | | | | | | INJECTION, 2 | | | | | | | MG [place] | | | | | | | OXALIPLATIN, | | | | | | | .5 MG [place] | | | | | | | LEUCOVORIN | | | | | | | CALCIUM | | | | | | | INJECTION, | | | | | | | 50 MG [place] | | | | | | | DIPHENHYDRAM | | | | | | | INE HCL | | | | | | | INJECTIO, 50 | | | | | | | MG [place] | | | | | | | METHYLPREDNI | | | | | | | SOLONE | | | | | | | INJECTION, | | | | | | | 125 MG [place] | | | | | | | ALBUTEROL | | | | | | | COMP CON, 1 | | | | | | | MG [place] | | | | | | | ALBUTEROL | | | | | | | NON-COMP | | | | | | | CON, 1 MG | | | | | | | [place] | | | | | | | INJECTION, | | | | | | | FAMOTIDINE, | | | | | | | 20 MG [place] | | | | | | | NORMAL | | | | | | | SALINE | | | | | | | SOLUTION | | | | | | | INFUS, 500 | | | | | | | ML [place] | | | | | | | NORMAL | | | | | | | SALINE | | | | | | | SOLUTION | | | | | | | INFUS, 250 | | | | | | | ML [place] | | | | | | | STERILE | | | | | | | WATER/SALINE | | | | | | | , 10 ML [place] | | | | | | | CHEMOTHER, | | | | | | | IV PUSH,EA | | | | | | | ADD DRUG MA | | | | | | | CHEMOTHER, | | | | | | | IV INFUSION, | | | | | | | 1 HR [place] | | | | | | | CHEMOTHER, | | | | | | | IV INFUSION, | | | | | | | EA HR MA | | | | | | | CHEMOTHER,NO | | | | | | | N-HORMONE | | | | | | | ANTI-NEOPL, | | | | | | | SUB-Q/IM MA | | | | | | | CHEMOTHER | | | | | | | HORMON | | | | | | | ANTINEOPL | | | | | | | SUB-Q/IM MA | | | | | | | NA FERRIC | | | | | | | GLUCONATE | | | | | | | COMPLEX, | | | | | | | 12.5 MG MA | | | | | | | IRON SUCROSE | | | | | | | INJECTION, | | | | | | | 1 MG | | | +--------+--------+ + + + + Encounter Details +--------+ + + + + | Date | Type | Department | Care Team | Description | +--------+ + + + + | 10/18/ | Hospital | [facility] | Janel, | Rectal cancer (HCC) | | 2017 | Encounter | MED CTR CHEMO | Mike White MD [address] | | | | | INFUSION [address] | [address] [facility] | | | | | [address] [place], | [place] [address] | | | | | [place] [address] | [phone] | | | | | [phone] | | | +--------+ + + + [...] + | [facility] | [address] | [place] | [phone] | | [facility] | | [address] | | | - LABORATORY | | [...] mL/min/1.73m2 | [facility] | | | [place] | RATE,ESTIMATED | | MEDICAL | | | | mL/min/1.43c7Gwyq than | | CENTER - | | [...] [address] | [place] | [phone] | | [facility] | | [address] | | | - LABORATORY | | [...] | | | | | ng/mL | [facility] | | | | | | [...] + | [facility] | [address] | [place] | [phone] | | [facility] | | [address] | | | - LABORATORY | | [...] + | [facility] | [address] | [place], [place] | [phone] | | [facility] | | [address] | | | - LABORATORY | | [...]
--- OUTSIDE RECORDS SUMMARY | ~2019-06-11 | XMS | Encounter Summary ---
Demographics + + + | Address | [address] | | | [place] [address] | + + + | Home Phone | | + + + | Preferred Language | Unknown | + + + | Marital Status | | + + + | Congregation Affiliation | Unknown | + + + | Race | Unknown | + + + | Ethnic Group | Unknown | + + + Author + + + | Author | [facility] | | | and [place] | + + + | Organization | [facility] | | | and [place] | + + + | Address | Unknown | + + + | Phone | Unavailable | + + + Support + + + + + | Name | Relationship | Address | Phone | + + + + + | Lamar Phillips | REZA | [place] [address] | | + + + + + Care Team Providers + +------+ + | Care Jack Machine Operator Name | Role | Phone | + +------+ + | Kristian Anderson DO | PCP | | + +------+ + Encounter Details +--------+ + + + + | Date | Type | Department | Care Team | Description | +--------+ + + + + | 10/18/ | Hospital | [facility] | Tayla Abernathy | Rectal cancer (HCC) | | 2017 | Encounter | MED CTR MEDICAL | J, PharmD [address] | (Primary Dx) | | | | ONCOLOGY CLINIC [address] | [place] | | | | | [address] | [place] [address] | | | | | [place] [address] | [phone] | | | | | [phone] | | | +--------+ + + + [...] documented as of this encounter Progress Notes Tayla Abernathy, PharmD - 10/18/2016 12:06 PM PDTFormatting of this note might be differ ent from the original. Clinical Oncology Pharmacy Services Progress Note Chemotherapy Education Session [facility] Pt. Name/Age/: Jenn Parada 55 y.o. 1960 Med. Record Number: [id number] Identifying Statement: Jenn Parada is a 55 y.o. female from [address] [place] [address] with The encounter diagnosis was Rectal cancer [...] tablet by mouth Daily. 30 tablet 5 Current Facility-Administered Medications on File Prior to Encounter Medication Dose Route Frequency Provider Last Rate Last Dose fluorouracil 4,050 mg in sodium chloride 0.9% 11 mL CADD PUMP chemo infusion 2,400 mg/ m2 (Order-Specific) Intravenous Q46H Mike Islas MD fosaprepitant (EMEND) 150 mg in sodium chloride 0.9% 150 mL IVPB 150 mg Intravenous On ce Mike Islas MD leucovorin 340 mg in dextrose 5% 250 mL infusion 200 mg/m2 (Order-Specific) Intravenou s Once Mike Islas MD ondansetron (ZOFRAN) 8 mg, dexamethasone (DECADRON) 4 mg in sodium chloride 0.9% 50 mL IVPB Intravenous Once Mike Islas MD 204 mL/hr at 10/18/16 1155 oxaliplatin (ELOXATIN) 135 mg in dextrose 5% 223 mL chemo infusion 80 mg/m2 (Order-Spe cific) Intravenous Once Mike Islas MD Objectives: Wt Readings from Last 3 [...] treatment regimen, as well as side effect manag ement. The patient demonstrated understanding and all questions were answered, and wishes to proceed with FOLFOX therapy. 2. Antiemetic regimen: Ondansetron [...] coordination of care. Electronically signed by: Tayla Abernathy PHARMD 10/18/2016 12:05 documented in this encounter Plan of Treatment Not on filedocumented as of this encounter Visit Diagnoses + + | Diagnosis | + + | Rectal cancer (HCC) - Primary Malignant neoplasm of rectum | + + documented in this encounter"
--- OUTSIDE RECORDS SUMMARY | ~2019-06-11 | XMS | Encounter Summary ---
Demographics + + + | Address | [address] | | | [place] [address] | + + + | Home Phone | | + + + | Preferred Language | Unknown | + + + | Marital Status | | + + + | Yazdanism Affiliation | Unknown | + + + | Race | Unknown | + + + | Ethnic Group | Unknown | + + + Author + + + | Author | [facility] | | | and [place] | + + + | Organization | [facility] | | | and [place] | + + + | Address | Unknown | + + + | Phone | Unavailable | + + + Support + + + + + | Name | Relationship | Address | Phone | + + + + + | Lamar Phillips | ERZA | [place] [address] | | + + + + + Care Team Providers + +------+ + | Care Paint Spray Inspector Name | Role | Phone | [...] neoplasm of | Mike C, | [address] | | | | | rectum (HCC) | MD [address] | [place], | | | | | Procedures | [address] | [place] [address] | | | | | [place] | [place], | Phone: | | | | | [place] | [place] [address] | [phone] | | | | | INJECTION, | Phone: | Fax: | | | | | [address] [place] | [phone] | [phone] | | | | | ONDANSETRON | Fax: | | | | | | HCL | [phone] | | | | | | INJECTION, 1 | | | | | | | MG [place] | | | | | | | DEXAMETHASON | | | | | | | E SODIUM | | | | | | | PHOS, 1 MG | | | | | | | [place] | | | | | | | FOSAPREPITAN | | | | | | | T INJECTION, | | | | | | | 1 MG [place] | | | | | | | LORAZEPAM | | | | | | | INJECTION, 2 | | | | | | | MG [place] | | | | | | | OXALIPLATIN, | | | | | | | .5 MG [place] | | | | | | | LEUCOVORIN | | | | | | | CALCIUM | | | | | | | INJECTION, | | | | | | | 50 MG [place] | | | | | | | DIPHENHYDRAM | | | | | | | INE HCL | | | | | | | INJECTIO, 50 | | | | | | | MG [place] | | | | | | | METHYLPREDNI | | | | | | | SOLONE | | | | | | | INJECTION, | | | | | | | 125 MG [place] | | | | | | | ALBUTEROL | | | | | | | COMP CON, 1 | | | | | | | MG [place] | | | | | | | ALBUTEROL | | | | | | | NON-COMP | | | | | | | CON, 1 MG | | | | | | | [place] | | | | | | | INJECTION, | | | | | | | FAMOTIDINE, | | | | | | | 20 MG [place] | | | | | | | NORMAL | | | | | | | SALINE | | | | | | | SOLUTION | | | | | | | INFUS, 500 | | | | | | | ML [place] | | | | | | | NORMAL | | | | | | | SALINE | | | | | | | SOLUTION | | | | | | | INFUS, 250 | | | | | | | ML [place] | | | | | | | STERILE | | | | | | | WATER/SALINE | | | | | | | , 10 ML [place] | | | | | | | CHEMOTHER, | | | | | | | IV PUSH,EA | | | | | | | ADD DRUG [place] | | | | | | | CHEMOTHER, | | | | | | | IV INFUSION, | | | | | | | 1 HR [place] | | | | | | | CHEMOTHER, | | | | | | | IV INFUSION, | | | | | | | EA HR [place] | | | | | | | CHEMOTHER,NO | | | | | | | N-HORMONE | | | | | | | ANTI-NEOPL, | | | | | | | SUB-Q/IM [place] | | | | | | | CHEMOTHER | | | | | | | HORMON | | | | | | | ANTINEOPL | | | | | | | SUB-Q/IM [place] | | | | | | | NA FERRIC | | | | | | | GLUCONATE | | | | | | | COMPLEX, | | | | | | | 12.5 MG [place] | | | | | | [...] + + | 01/31/ | Hospital | [facility] | Janel, | Rectal cancer (HCC) | | 2017 | Encounter | MED CTR CHEMO | Mike White MD [address] | | | | | INFUSION [address] | [place] [facility] | | | | | [place], | [place] [address] | | | | | [place] [address] | [phone] | | | | | [phone] | | | +--------+ + + + [...] + | CBC WITH | STAT | 01/31/2017 | Rectal cancer | Results for this | | DIFFERENTIAL | | 9:04 AM | (HCC) | procedure are in the | | | | PDT | | results section. | + +--------+ + + + | LACTATE | STAT | 01/31/2017 | Rectal cancer | Results for this | | DEHYDROGENASE | | 9:04 AM | (HCC) | procedure are in the | | | | PDT | | results section. | + +--------+ + + + | COMPREHENSIVE | STAT | 01/31/2017 | Rectal cancer | Results for this | | METABOLIC PANEL | | 9:04 AM | (HCC) | procedure are in the | | | | PDT | | results section. | + +--------+ + + + documented in this encounter Results CBC with Differential (01/31/2017 9:04 AM PDT) + + + + + + | Component | Value | Ref Range | Performed | Pathologist | | | | | At | Signature | + + + + + + | WBC | 6.7 | 4.0 - 11.0 K/uL | [facility] | [facility] | | | | | [facility] - | | | | | | LABORATORY | | + + + + + + | RBC | 3.76 | 3.70 - 5.20 | [facility] | | | | | M/uL | [facility] | | | | | | [facility] | | | | | | C[facility] - | | | | | | LABORATORY | | + + + + + + | Hemoglobin | 10.7 (L) | 11.5 - 16.0 | [facility] | | | | | g/dL | [facility] | | | | | | [facility] | | | | | | CENTER - | | | | | | LABORATORY | | + + + + + + | Hematocrit | 32.2 (L) | 34.0 - 47.0 % | [facility] | | | | | | [facility] | | | | | | [facility] | | | | | | [facility] - | | | | | | LABORATORY | | + + + + + + | MCV | 85.7 | 83.0 - 101.0 fL | [facility] | | | | | | [facility] | | | | | | [facility] | | | | | | C[facility] - | | | | | | LABORATORY | | + + + + + + | MCH | 28.4 | 28.0 - 35.0 pg | [facility] [...] + + + + | RDW-CV | 21.4 (H) | <15.0 % | [facility] | | | | | | [facility] | | | | [facility] | [facility] | | | | | | C[facility] - | | | | | | LABORATORY | | + + + + + + | Platelet | 333 | 140 - 440 K/uL | [facility] | | | Count | | | [facility] | | | [facility] | | [facility] | | | | | | C[facility] - | | | | | | LABORATORY | | + + + + + + | MPV | 6.3 | fL | [facility] | | | | | | [facility] | | | | | | [facility] | | | | | | [facility] - | | | | | | LABORATORY | | + + + + + + | % | 82.0 | 45.0 - 82.0 % | [facility] | | | Neutrophils | | | [facility] | | | | | | [facility] | | | | | | CENTER - | | | | | | LABORATORY | | + + + + + + | % | 4.9 (L) | 20.0 - 45.0 % | [facility] | | | Lymphocytes | | | [facility] | | | | | | [facility] | | | | | | CENTER - | | | | | | LABORATORY | | + + + + + + | % Monocytes | 7.0 | 4.0 - 12.0 % | [facility] | | | | | | [facility] | | | | | | [facility] | | | | | | CENTER - | | | | | | LABORATORY | | + + + + + + | % | 4.6 | 0.0 - 5.0 % | [facility] | | | Eosinophils | | | [facility] | | | | | | [facility] | | | | | | CENTER - | | | | | | LABORATORY | | + + + + + + | % Basophils | 1.5 (H) | 0.0 - 1.0 % | [facility] | | | | | | [facility] | | | | | | [facility]ICAL | | | | | | CENTER - | | | | | | LABORATORY | | + + + + + + | Absolute | 5.50 | 1.80 - 8.50 | [facility] | [...] + + + + + | [facility] | [address] | [place] | [phone] | | [facility] | | [address] | | | - LABORATORY | | | | + + + + + Comprehensive Metabolic Panel (01/31/2017 9:04 AM PDT) + + + + + [...] + + + + | Glucose | 148 (H) | 70 - 109 mg/dL | [facility] | | | [facility] | | [facility] | | | | | | [facility] - | | | | | | LABORATORY | | + + + + + + | BUN | 11 | 7 - 18 mg/dL | [facility] | | | | | | [facility] | | | | | | [facility] | | | | | | CENTER - | | | | | | LABORATORY | | + + + + + + | Creatinine | 0.62 | 0.60 - 1.30 | [facility] | [...] | | | FILTRATION | mL/min/1.73m2 | [facility] | | | TAJIK | RATE,ESTIMATED | | MEDICAL | | | | mL/min/1.33i7Kgua than | | CENTER - | | [...] + + + + | Calcium | 8.5 | 8.3 - 10.5 | [facility] | [...] + + + + | Bilirubin | 0.6Comment: This is an | 0.1 - 1.5 [...] + + + + | Alkaline | 101Comment: This is an | 40 - 110 U/L | [facility] | | | Phosphatase | appended report. These | | [facility] [...] + + + + | BUN/Creatin | 17.7 | | [facility] | | | ine [...] [address] | [place] | [phone] | | [facility] | | [address] | | | - LABORATORY | | | | + + + + + Lactate Dehydrogenase (01/31/2017 9:04 AM PDT) + +-------+ + + + [...] [address] | [place] | [phone] | | [facility] | | [address] | | | - LABORATORY | | | | + + + + + documented in this encounter Visit Diagnoses + + | Diagnosis | + + | Rectal cancer (HCC) Malignant neoplasm of rectum | + + documented in this encounter Administered Medications + +--------+ +-------+------+------+ | Medication Order | MAR | Action | Dose | Rate | Site | | | Action | Date | | | | + +--------+ +-------+------+------+ | heparin 100 units/mL flush | Given | 02/01/20 | 500 | | | | injection 500 Units 500 Units (5 | | 17 9:14 | Units | | | | mL), Intracatheter, PRN, Line | | AM PDT | | | | | Care, Starting 01/31/17 at | | | | | | | 0903 | | | | | | + +--------+ +-------+------+------+ +---+---+ | | | +---+---+ documented in this encounter"
--- OUTSIDE RECORDS SUMMARY | ~2019-06-11 | XMS | Encounter Summary ---
Demographics + + + | Address | [address] | | | [place] [address] | + + + | Home Phone | | + + + | Preferred Language | Unknown | + + + | Marital Status | | + + + | Mormon Affiliation | Unknown | + + + | Race | Unknown | + + + | Ethnic Group | Unknown | + + + Author + + + | Author | [facility] | | | and [place] | + + + | Organization | [facility] | | | and [place] | + + + | Address | Unknown | + + + | Phone | Unavailable | + + + Support + + + + + | Name | Relationship | Address | Phone | + + + + + | Lamar Phillips | REZA | [place] [address] | | + + + + + Care Team Providers + +------+ + | Care Driver Messenger Name | Role | Phone | + [...] | +--------+ + + + + | 12/28/ | Hospital | [facility] | Joel Alfaro DO | | | 2017 | Encounter | MED CTR RADIATION | [address] | | | | | ONCOLOGY [address] | [place], [place] | | | | | [place], | [address] | | | | | [place] [address] | | | | | | [phone] | | | +--------+ + + + [...] documented as of this encounter Progress Notes Florence Reese MD - 01/20/2017 12:00 AM [facility] On Treatment Note Name: Jenn Parada ID: [id number] Date of Service:01/20/2017 ICD-9 and Description: C20 - Malignant neoplasm of rectum, Diagnosed 09/02/2016 (Active) Stage IIC, T4b, N0, M0 Radiation Technical Factors: --Planned Dose: Pelvis (Plan ID - Pelvis) - Rx Dose 4,500cGy (Status - Treatment Approved) - --Current Dose: Course: Pelvis Treatment Site: Pelvis Energy: 18X Dose/Fx (cGy): 180 #Fx: Dose Correction (cGy): 0 Total Dose (cGy): 1,620 Start Date: 01/10/2017 End Date: 01/20/2017 Elapsed Days: 11 Imaging Review: Images were reviewed this week and results of the review have been recorded in ARIA. Cor rections were applied as necessary. Clinical Data Vital Signs: Performed on 01/20/2017 11:06 AM Weight - 69.9 kg - , Temperature - 38.5 C (HIGH) - , Pulse - 80 / min - , Respiration - 16 / min - , Systolic - 136 mm(hg) - , Diastolic - 80 mm(hg) - , O2 Sat - 98 % - , Pain - 1 - and BP - 136/ 80 - ;. Performance Scale: 80% - Normal activity, but requires effort. (Karnofsky) Pain Assessment: Are you having pain? - Yes Where does it hurt most? - back pain Rate your pain from 0-10: 0-10 scale with 0 = no pain and 10= worst pain - 1 Describe your pain (quality) i.e. aching, sharp, stabbing, etc. - aching What do you use f or pain medication? Name and dose - hydrocone 5/325 at night as needed What is your numerical pain rating after taking pain medication? 0-10 scale with 0 = no pa in and 10= worst pain - 1 Toxicities: The following toxicities were assessed as a 1: Fatigue (lethar/malai/astheni) - - Increased fatigue over baseline, but not altering rolando l activities Weight Loss - - None Physician Assessment: 00:00:00 - On Treatment Progress Note - Florence Reese M.D - Jenn is early in her second week of radiation. No new acute issues. Managing chemo and he r ostomy well. Notes fatigue. No change in bowel consistency. Plan to continue treatment with concurrent chemoradiotherapy as scheduled. Reviewed potent ial side-effects. Diet and Imodium use education provided. Approved by: Florence Reese M.D 02/07/2017 4:00:21 PM Page 1 of 2 CSN: [id number] signed by Florence Reese MD at 02/07/2017 4:00 PM PDTL Joel hickman DO - 01/13/2017 11:25 AM [facility] On Treatment Note Name: Jenn Parada ID: [id number] Date of Service:01/13/2017 ICD-9 and Description: C20 - Malignant neoplasm of rectum, Diagnosed 09/02/2016 (Active) Stage IIC, T4b, N0, M0 Radiation Technical Factors: --Planned Dose: Pelvis (Plan ID - Pelvis) - Rx Dose 4,500cGy (Status - Treatment Approved) - --Current Dose: Course: Pelvis Treatment Site: Pelvis Energy: 18X Dose/Fx (cGy): 180 #Fx: Dose Correction (cGy): 0 Total Dose (cGy): 720 Start Date: 01/10/2017 End Date: 01/13/2017 Elapsed Days: 3 Imaging Review: Images were reviewed this week and results of the review have been recorded in ARIA. Cor rections were applied as necessary. Clinical Data Vital Signs: Performed on 01/13/2017 10:59 AM Weight - 69.1 kg - , Temperature - 35.7 C (LOW) - , Pulse - 82 / min - , Respiration - 16 / min - , Systolic - 136 mm(hg) - , Diastolic - 82 mm(hg) - , O2 Sat - 98 % - , Pain - 0 - and BP - 136/ 82 - ;. Performance Scale: 80% - Normal activity, but requires effort. (Karnofsky) Pain Assessment: Are you having pain? - No Toxicities: PE ConstitutionalNo evidence of impaired alertness, inadequate appearance, premature or ad vanced chronologic age, uncooperativeness, altered mood and affect and disorientation. The following toxicities were assessed as a 1: Fatigue (lethar/malai/astheni) - - Increased fatigue over baseline, but not altering rolando l activities Weight Loss - - None Physician Assessment: 11:25:00 - On Treatment Progress Note - Joel Alfaro D.O. - New start this week. Toxicitie s reviewed. Skin care reviewed. Diet reviewed. All questions were answered the best of m y ability and she'll proceed with concurrent chemoradiotherapy as previously planned. Approved by: Joel Alfaro D.O. 01/13/2017 11:26:18 AM Page 1 of 2 CSN: [id number] signed by Joel Alfaro DO at 01/13/2017 11:26 AM PDTdocasi stewart in this encounter Plan of Treatment Not on filedocumented as of this encounter Visit Diagnoses Not on filedocumented in this encounter"
--- OUTSIDE RECORDS SUMMARY | ~2019-06-11 | XMS | Encounter Summary ---
Demographics + + + | Address | [address] | | | [place] [address] | + + + | Home Phone [...] Team Providers + +------+ + | Care Necktie Centralizing Machine Operator Name | Role | Phone [...] | | 2017 | | Center at [facility] [address] | [address] | Review | | | | [address] | Amita Hines [place], | | | | | Mailcode: [place] | [place] [address] | | | | | for Health and | [phone] | | | | | [facility] 2 | | | | | | [place], [place] | | | | | | [address] | | | | | | [phone] | | | +--------+ + + + [...] | | | | | [place]mita Hines [place], | | | | | | [place] [address] | | | | | | [phone] | | | | | | | | +--------+---------+ + + + documented as of this encounter Visit Diagnoses Not on filedocumented in this encounter"
--- OUTSIDE RECORDS SUMMARY | ~2019-06-11 | XMS | Encounter Summary ---
Demographics + + + | Address | [address] | | | [place] [address] | + + + | Home Phone [...] Team Providers + +------+ + | Care Detonator Maker Name | Role | Phone | + +------+ + | Kristian Anderson DO | PCP | | + +------+ + Reason for Visit + + + | Reason | Comments | + + + | Outside Records | MRI | | Received | | + + + Encounter Details +--------+ + + + + | Date | Type | Department | Care Team | Description | +--------+ + + + + | 05/19/ | Abstract | Digestive Health | Ailyn Wolff MD | Outside Records | | 2017 | | Center at [facility] [address] | [address] | Received (MRI) | | | | [address] | [place]a Hines [place], | | | | | Mailcode: [place] | [place] [address] | | | | | for Health and | [phone] | | | | | [facility] 2 | | | | | | [place], [place] | | | | | | [address] | | | | | | [phone] | | | +--------+ + + + [...] | | | | | [place]a [place], | | | | | | [place] [address] | | | | | | [phone] | | | | | | | | +--------+---------+ + + + documented as of this encounter Visit Diagnoses Not on filedocumented in this encounter"
--- OUTSIDE RECORDS SUMMARY | ~2019-06-11 | XMS | Encounter Summary ---
Demographics + + + | Address | [address] | | | [place] [address] | + + + | Home Phone | | + + + | Preferred Language | Unknown | + + + | Marital Status | | + + + | Denominational Affiliation | Unknown | + + + | Race | Unknown | + + + | Ethnic Group | Unknown | + + + Author + + + | Author | [facility] | | | and [place] | + + + | Organization | [facility] | | | and [place] | + + + | Address | Unknown | + + + | Phone | Unavailable | + + + Support + + + + + | Name | Relationship | Address | Phone | + + + + + | Lamar Phillips | REZA | [place] [address] | | + + + + + Care Team Providers + +------+ + | Care Director Of Knowledge Management Name | Role | Phone | + +------+ + | Kristian Anderson DO | PCP | | + +------+ + Reason for Visit +--------+ + | Reason | Comments | +--------+ + | Other | | +--------+ + Encounter Details +--------+ + + + + | Date | Type | Department | Care Team | Description | +--------+ + + + + | 10/20/ | Telephone | [facility] | Janel, | Other | | 2017 | | MED [facility] | Mike White MD [address] | | | | | [facility]OGY CLIN[facility] [address] [place] | | | | | [address] [place] | [place] [address] | | | | | [place] [address] | [phone] | | | | | [phone] | | | +--------+ + + + [...]
--- OUTSIDE RECORDS SUMMARY | ~2019-06-11 | XMS | Encounter Summary ---
Demographics + + + | Address | [address] | | | [place] [address] | + + + | Home Phone | | + + + | Preferred Language | Unknown | + + + | Marital Status | | + + + | Scientology Affiliation | Unknown | + + + | Race | Unknown | + + + | Ethnic Group | Unknown | + + + Author + + + | Author | [facility] | | | and [place] | + + + | Organization | [facility] | | | and [place] | + + + | Address | Unknown | + + + | Phone | Unavailable | + + + Support + + + + + | Name | Relationship | Address | Phone | + + + + + | Lamar Phillips | REZA | [place] [address] | | + + + + + Care Team Providers + +------+ + | Care Loan Servicing Representative Name | Role | Phone | [...] | | ONCOLOGY CLINIC [address] | [place], [place] | | | | | [address] [place] | [address] | | | | | [place] [address] | | | | | | [phone] | | | +--------+ + + + [...]
--- OUTSIDE RECORDS SUMMARY | ~2019-06-11 | XMS | Encounter Summary ---
Demographics + + + | Address | [address] | | | [place] [address] | + + + | Home Phone [...] Team Providers + +------+ + | Care Certified Medical Aide Name | Role | Phone | + +------+ + | Kristian Anderson DO | PCP | | + +------+ + Encounter Details +--------+ + + + + | Date | Type | Department | Care Team | Description | +--------+ + + + + | 10/05/ | Abstract | Digestive Health | Ailyn Wolff MD | | | 2017 | | [place] at [facility] [address] | [address] | | | | | [address] | Amita Hines [place], | | | | | Mailcode: [place] | [place] [address] | | | | | [facility] and | [phone] | | | | | [facility], [facility] 2 | | | | | | [place], [place] | | | | | | [address] | | | | | | [phone] | | | +--------+ + + + [...] | | | | | [address] [place], | | | | | | [place] [address] | | | | | | [phone] | | | | | | | | +--------+---------+ + + + documented as of this encounter Visit Diagnoses Not on filedocumented in this encounter"
--- OUTSIDE RECORDS SUMMARY | ~2019-06-11 | XMS | Encounter Summary ---
Demographics + + + | Address | [address] | | | [place] [address] | + + + | Home Phone [...] Team Providers + +------+ + | Care Cap And Hat Production Supervisor Name | Role | Phone | [...] | | 2019 | | Center at [facility] [address] | [address] | Review | | | | [address] | Amita Hines [place], | | | | | Mailcode: [place] | [place] [address] | | | | | for Health and | [phone] | | | | | [facility] 2 | | | | | | [place], [place] | | | | | | [address] | | | | | | [phone] | | | +--------+ + + + [...] | | | | | [place], | | | | | | [place] [address] | | | | | | [phone] | | | | | | | | +--------+---------+ + + + documented as of this encounter Visit Diagnoses Not on filedocumented in this encounter"
--- OUTSIDE RECORDS SUMMARY | ~2019-06-11 | XMS | Encounter Summary ---
Demographics + + + | Address | [address] | | | [place] [address] | + + + | Home Phone | | + + + | Preferred Language | Unknown | + + + | Marital Status | Single | + + + | Zoroastrianism Affiliation | NON | + + + [...] Team Providers + +------+ + | Care Diamond Polisher Name | Role | Phone | + +------+ + | Justin Kristian | PCP | | + +------+ + Reason for Visit + + + | Reason | Comments | + + + | Outside Records | Out of Network Authorization | | Received | | + + + Encounter Details +--------+ + + + + | Date | Type | Department | Care Team | Description | +--------+ + + + + | 12/14/ | Documentati | Digestive Health | Ailyn Wolff MD | Outside Records | | 2018 | on | Center at [facility] [address] | [address] | Received (Out of | | | | [address] | Amita [facility], Network | | | | Mailcode: [place] | [place] [address] | Authorization ) | | | | for Health and | [phone] | | | | | [facility] 2 | | | | | | [place], [place] | | | | | | [address] | | | | | | [phone] | | | +--------+ + + + [...] | | | | | Amita Hines [place], | | | | | | [place] [address] | | | | | | [phone] | | | | | | | | +--------+---------+ + + + documented as of this encounter Visit Diagnoses Not on filedocumented in this encounter"
--- OUTSIDE RECORDS SUMMARY | ~2019-06-11 | XMS | Encounter Summary ---
Demographics + + + | Address | [address] | | | [place] [address] | + + + | Home Phone [...] Team Providers + +------+ + | Care Turret Press Operator Name | Role | Phone [...] 2017 | | Center at [facility] [address] | [address] | | | | | [address] | Amita Hines [place], | | | | | Mailcode: [place] | [place] [address] | | | | | for Health and | [phone] | | | | | [facility] 2 | | | | | | [place], [place] | | | | | | [address] | | | | | | [phone] | | | +--------+ + + + [...] | | | | | [address] [place], | | | | | | [place] [address] | | | | | | [phone] | | | | | | | | +--------+---------+ + + + documented as of this encounter Visit Diagnoses Not on filecumented in this encounter"
--- OUTSIDE RECORDS SUMMARY | ~2019-06-11 | XMS | Encounter Summary ---
Demographics + + + | Address | [address] | | | [place] [address] | + + + | Home Phone [...] Team Providers + +------+ + | Care Moss Bleacher Name | Role | Phone | + [...] Rd | | | | | | [place], [place] | | | | | | [address] | | | +--------+ + + + [...] | | | | | Amita Hines [facility] | | | | | | [place] [address] | | | | | | [phone] | | | | | | | [...]
--- OUTSIDE RECORDS SUMMARY | ~2019-06-11 | XMS | Encounter Summary ---
Demographics + + + | Address | [address] | | | [place] [address] | + + + | Home Phone [...] Team Providers + +------+ + | Care Route Relief Driver Name | Role | Phone | [...] | | [address] | Amita Hines [place], | | | | | Mailcode: [place] | [place] [address] | | | | | for Health and | [phone] | | | | | [facility], [facility] 2 | | | | | | [place], [place] | | | | | | [address] | | | | | | [phone] | | | +--------+ + + + [...] | | | | | [place]mita H[place], | | | | | | [place] [address] | | | | | | [phone] | | | | | | | | +--------+---------+ + + + documented as of this encounter Visit Diagnoses Not on filedocumented in this encounter"
--- OUTSIDE RECORDS SUMMARY | ~2019-06-11 | XMS | Encounter Summary ---
Demographics + + + | Address | [address] | | | [place] [address] | + + + | Home Phone [...] Team Providers + +------+ + | Care Butter Printer Name | Role | Phone | + [...] Rd | | | | | | [place], [place] | | | | | | [address] | | | +--------+ + + + [...] | | | | | Amita Hines [facility] | | | | | | [place] [address] | | | | | | [phone] | | | | | | | [...]
--- OUTSIDE RECORDS SUMMARY | ~2019-06-11 | XMS | Encounter Summary ---
Demographics + + + | Address | [address] | | | [place] [address] | + + + | Home Phone [...] Team Providers + +------+ + | Care Premium Cancellation Clerk Name | Role | Phone | [...] | [address] | [address] [place], | | | | | Mailcode: [place] | [place] [address] | | | | | for Health and | [phone] | | | | | [facility], [facility] 2 | | | | | | [place], [place] | | | | | | [address] | | | | | | [phone] | | | +--------+---------+ + + + [...] rectal bleeding on 07/19/16 went to the [facility] ED CT abdomen/pelvis with IV contrast (07/20/16) 11 cm complex mass in pelvis, either necrotic neoplasm or abscess admitted by Dr. Thacker on 07/20/16 exploratory laparotomy, transabdominal drainage of left pelvic abscess with #10 flat Albetr drain, placement of prolene stitch on distal [...] cm from anal verge presented at the [facility] on 10/07/16 [...] more tissue. I spoke to Dr. Mike sIlas on 10/07/16. He was willing to start [...] to Mendoza pouch staple line presented at [facility] on 03/10/17. [...] MRI ([facility], 05/17/17) close to pelvic sidewall [facility] (06/02/17) Recommendations [...] with primary anast omosis, placement of a 19-Colombian Albert drain through the right lower quadrant [...] wit h primary anastomosis, placement of a 19-Colombian Albert drain through the right lower quadrant [...] Return/Re-evaluation patient, I spent 19 minutes of sddf-uq-stin time, of which m ore than half [...] | | | | | [place], | | | | | | [place] [address] | | | | | | [phone] | | | | | | | | +--------+---------+ + + + documented as of this encounter Visit Diagnoses + + | Diagnosis | + + | 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
--- OUTSIDE RECORDS SUMMARY | ~2019-06-11 | XMS | Encounter Summary ---
Demographics + + + | Address | [address] | | | [place] [address] | + + + | Home Phone [...] Team Providers + +------+ + | Care Biometrics Technician Name | Role | Phone | [...] 2017 | | Center at [facility] [address] | [address] | Received (Images | | | | [address] | Park [facility], | requested 10/24/16 | | | | Mailcode: [place] | [place] [address] | [facility]) | | | | for Health and | [phone] | | | | | [facility], [facility] 2 | | | | | | [place], [place] | | | | | | [address] | | | | | | [phone] | | | +--------+ + + + [...] | | | | | Amita H[place], | | | | | | [place] [address] | | | | | | [phone] | | | | | | | | +--------+---------+ + + + documented as of this encounter Visit Diagnoses Not on filedocumented in this encounter"
--- OUTSIDE RECORDS SUMMARY | ~2019-06-11 | XMS | Encounter Summary ---
Demographics + + + | Address | [address] | | | [place] [address] | + + + | Home Phone [...] Team Providers + +------+ + | Care Android Programmer Name | Role | Phone | + +------+ + | Kristian Anderson DO | PCP | | + +------+ + Encounter Details +--------+ + + + + | Date | Type | Department | Care Team | Description | +--------+ + + + + | 12/12/ | MyChart | Wound and Ostomy | Delores Avilez, | RE:[facility] [place] | | 2018 | Encounter | Care [address] | RN, CWOCN [address] | | | | | [address] | [address] | | | | | [facility] | [place], [place] | | | | | [place] [address] | [address] | | | | | [place], [place] | | | | | | [address] | | | | | | [phone] | | | +--------+ + + + [...] | | | | | Amita Hines [place], | | | | | | [place] [address] | | | | | | [phone] | | | | | | | | +--------+---------+ + + + documented as of this encounter Visit Diagnoses Not on filedocumented in this encounter"
--- OUTSIDE RECORDS SUMMARY | ~2019-06-11 | XMS | Encounter Summary ---
Demographics + + + | Address | [address] | | | [place] [address] | + + + | Home Phone [...] Author + + + | Author | [facility] | + + + | Organization | [facility] | + + + | Address | Unknown | + + + | Phone | Unavailable | + + + Support + + +---------+ + | Name | Relationship | Address | Phone | + + +---------+ + | Darrius Quintana | ECON | Unknown | | + + +---------+ + Care Team Providers + +------+ + | Care Custodian Blood Bank Name | Role | Phone | + [...] | 2018 | | Center at [facility] [address] | [address] | Review | | | | [address] | Amita Hines [place], | | | | | Mailcode: [place] | [place] [address] | | | | | for Health and | [phone] | | | | | [facility] 2 | | | | | | [place], [place] | | | | | | [address] | | | | | | [phone] | | | +--------+ + + + [...] | | | | | Amita Hines [place], | | | | | | [place] [address] | | | | | | [phone] | | | | | | | | +--------+---------+ + + + documented as of this encounter Visit Diagnoses Not on filedocumented in this encounter"
--- OUTSIDE RECORDS SUMMARY | ~2019-06-11 | XMS | Encounter Summary ---
Demographics + + + | Address | [address] | | | [place] [address] | + + + | Home Phone [...] Team Providers + +------+ + | Care Electromechanical Equipment Tester Name | Role | Phone | [...] | | 2017 | | Center at [facility] [address] | [address] | Review | | | | [address] | Amita Hines [place], | | | | | Mailcode: [place] | [place] [address] | | | | | for Health and | [phone] | | | | | [facility] 2 | | | | | | [place], [place] | | | | | | [address] | | | | | | [phone] | | | +--------+ + + + [...] | | | | | Amita H[place], | | | | | | [place] [address] | | | | | | [phone] | | | | | | | | +--------+---------+ + + + documented as of this encounter Visit Diagnoses Not on filedocumented in this encounter"
--- OUTSIDE RECORDS SUMMARY | ~2019-06-11 | XMS | Encounter Summary ---
Demographics + + + | Address | [address] | | | [place] [address] | + + + | Home Phone [...] Team Providers + +------+ + | Care Avian Keeper Name | Role | Phone | + [...] | | | | Pre-operativ | [address] | | | | | | e | [address] | | | | | | cardiovascul | [place], | | | | | | ar | [place] | | | | | | examination | [address] | | | | | | Tobacco | Phone: | | | | | | abuse | [phone] | | | | | | Dyspnea, | Fax: | | | | | | unspecified | [phone] | | | | | | type [...] | | | | | | at [facility] [address] | | | | | | [address] Mailcode: | | | | | | [facility] [place] [facility] | | | | | | [facility] and He[facility], | | | | | | [address] | | | | | | [place], [place] | | | | | | [address] | | | | | | [phone] | | | +--------+ + + + [...] | | 2018 | Visit | | [address] | | | | | | Amita Hines [place], | | | | | | [place] [address] | | | | | | [phone] | | | | | | | [...]
--- OUTSIDE RECORDS SUMMARY | ~2019-06-11 | XMS | Encounter Summary ---
Demographics + + + | Address | [address] | | | [place] [address] | + + + | Home Phone [...] Team Providers + +------+ + | Care Sales Office Manager Name | Role | Phone | + +------+ + | Kristian Anderson DO | PCP | | + +------+ + Encounter Details +--------+ + + + + | Date | Type | Department | Care Team | Description | +--------+ + + + + | 06/30/ | Procedure | 6A Intra Op [facility] | | | | 2017 | Pass | [facility] | | | | | | Admitting Desk | | | | | | Located on the 9th | | | | | | floor [address] | | | | | | [address] | | | | | | [place], [place] | | | | | | [address] | | | +--------+ + + + [...] | | | | | Amita Hines [place], | | | | | | [place] [address] | | | | | | [phone] | | | | | | | | +--------+---------+ + + + documented as of this encounter Visit Diagnoses Not on filedocumented in this encounter"
--- OUTSIDE RECORDS SUMMARY | ~2019-06-11 | XMS | Encounter Summary ---
Demographics + + + | Address | [address] | | | [place] [address] | + + + | Home Phone | | + + + | Preferred Language | Unknown | + + + | Marital Status | | + + + | Gnosticism Affiliation | Unknown | + + + | Race | Unknown | + + + | Ethnic Group | Unknown | + + + Author + + + | Author | Located Within [facility] | | | and [place] | + + + | Organization | Located Within [facility] | | | and [place] | + + + | Address | Unknown | + + + | Phone | Unavailable | + + + Support + + + + + | Name | Relationship | Address | Phone | + + + + + | Lamar Phillips | REZA | [place] [address] | | + + + + + Care Team Providers + +------+ + | Care Scrubber System Attendant Name | Role | Phone | + +------+ + | Kristian Anderson DO | PCP | | + +------+ + Encounter Details +--------+ + + + + | Date | Type | Department | Care Team | Description | +--------+ + + + + | 01/26/ | Orders Only | [facility] | Joel Alfaro DO | | | 2017 | | MED CTR RADIATION | [address] | | | | | ONCOLOGY [address] | [place], [place] | | | | | [place], | [address] | | | | | [place] [address] | | | | | | [phone] | | | +--------+ + + + [...]
--- OUTSIDE RECORDS SUMMARY | ~2019-06-11 | XMS | Encounter Summary ---
Demographics + + + | Address | [address] | | | [place] [address] | + + + | Home Phone [...] Team Providers + +------+ + | Care Pharmacy Student Name | Role | Phone | + [...] | | [address] | Amita Hines [place], | | | | | Mailcode: [place] | [place] [address] | | | | | for Health and | [phone] | | | | | [facility] [address] | | | | | | [place], [place] | | | | | | [address] | | | | | | [phone] | | | +--------+ + + + [...] | | | | | Amita Hines [place], | | | | | | [place] [address] | | | | | | [phone] | | | | | | | | +--------+---------+ + + + documented as of this encounter Visit Diagnoses Not on filedocumented in this encounter"
--- OUTSIDE RECORDS SUMMARY | ~2019-06-11 | XMS | Encounter Summary ---
Demographics + + + | Address | [address] | | | [place] [address] | + + + | Home Phone [...] Team Providers + +------+ + | Care Camp Program Director Name | Role | Phone | + +------+ + | Kristian Anderson DO | PCP | | + +------+ + Encounter Details +--------+ + + + + | Date | Type | Department | Care Team | Description | +--------+ + + + + | 08/12/ | MyChart | Digestive Health | Ailyn Wolff MD | Question | | 2018 | Encounter | Center at [facility] [address] | [address] | | | | | [address] | Amita Hines [place], | | | | | Mailcode: [place] | [place] [address] | | | | | for Health and | [phone] | | | | | [facility] [address] | | | | | | [place], [place] | | | | | | [address] | | | | | | [phone] | | | +--------+ + + + [...] | | | | | | [place] [address] | | | | | | [phone] | | | | | | | | +--------+---------+ + + + documented as of this encounter Visit Diagnoses Not on filedocumented in this encounter"
--- OUTSIDE RECORDS SUMMARY | ~2019-06-11 | XMS | Encounter Summary ---
Demographics + + + | Address | [address] | | | [place] [address] | + + + | Home Phone | | + + + | Preferred Language | Unknown | + + + | Marital Status | | + + + | Sikh Affiliation | Unknown | + + + | Race | Unknown | + + + | Ethnic Group | Unknown | + + + Author + + + | Author | [facility] | | | and [place] | + + + | Organization | [facility] | | | and [place] | + + + | Address | Unknown | + + + | Phone | Unavailable | + + + Support + + + + + | Name | Relationship | Address | Phone | + + + + + | Lamar Phillips | REZA | [place] [address] | | + + + + + Care Team Providers + +------+ + | Care Drug Worker Name | Role | Phone | [...] | +--------+ + + + + | 01/05/ | Telephone | [facility] | Janel, | Other | | 2017 | | MED [facility] | Mike White MD [address] | | | | | ONCOLOGY CLINIC [address] [place] | | | | | [address] [place] [place] | [place] [address] | | | | | [place] [address] | [phone] | | | | | [phone] | | | +--------+ + + + [...]
--- OUTSIDE RECORDS SUMMARY | ~2019-06-11 | XMS | Encounter Summary ---
Demographics + + + | Address | [address] | | | [place] [address] | + + + | Home Phone [...] Organization | [facility] | | | and [place] | + + + | Address | Unknown | + + + | Phone | Unavailable | + + + Support + + + + + | Name | Relationship | Address | Phone | + + + + + | Lamar Phillips | REZA | [place] [address] | | + + + + + Care Team Providers + +------+ + | Care Saturation Diver Name | Role | Phone | + [...] | +--------+ + + + + | 11/29/ | Hospital | [facility] | [facility], | Rectal cancer (HCC) | | 2017 | Encounter | MED CTR MEDICAL | Sirena White MD [address] | (Primary Dx) | | | | ONCOLOGY CLINIC [address] | [facility] | | | | | [address] [facility] | [place] [address] | | | | | [place] [address] | [phone] | | | | | [phone] | | | +--------+ + + + [...] + + + | Blood Pressure | 130/76 | 11/29/2016 9:15 AM | | | | | PDT | | + + + + + | Pulse | 91 | 11/29/2016 9:15 AM | | | | | PDT | | + + + + + | Temperature | 36.2 C (97.2 F) | 11/29/2016 9:15 AM | | | | | PDT | | + + + + + | Respiratory Rate | 16 | 11/29/2016 9:15 AM | | | | | PDT | | + + + + + | Oxygen Saturation | 96% | 11/29/2016 9:15 AM | | | | | PDT | | + + + + + | Inhaled Oxygen | - | - | | | Concentration | | | | + + + + + | Weight | 66.1 kg (145 lb 12.8 | 11/29/2016 9:15 AM | | | | oz) | PDT | | + + + + + | Height | - | - | | + + + + + | Body Mass Index | 25.03 | 10/18/2016 11:04 AM | | | [...] encounter Progress Notes Sirena Helton MD - 11/29/2016 8:53 AM PDTFormatting of this note might be differe nt from the original. Hematology/Oncology Progress Note [place], [place] Pt. Name/Age/: Paulette Byrnes 55 y.o. 1960 Med. Record Number: [id number] Date of admission: 11/29/2016 The patient's primary care provider is Kristian Anderson DO. Identifying Statement: Paulette Byrnes is a 55 y.o. female from [address] [place] [address] with Locally Advanced Rectal Cancer. The patient chart and medications were reviewed in detail and the patient was seen and exam ined. History of Present Illnesses, their Current Assessments and Plans: Problems That Were Updated This Visit Rectal cancer Overview ACTIVE DIAGNOSIS: Locally Advanced Rectal Cancer. 1. Paulette presented to the [facility] emergency room on July 20, 2016 [...] cm within the rectum. Biopsy specimen number [id number] evaluated by Dr. Felipe Nixon of [facility] was notable for a tubular adenoma without high-grade dysplasia or overt carcinoma. This proced ure also included a full colonoscopy through the ostomy were 2 additional polyps were remove d, a tubular adenoma at 35 cm and a hyperplastic polyp at [address] C/A/P at [facility] in [place], [place] demonstrated no evidence of metastatic disease. 4. On September 22, 2016 Dr. Thacker placed in internal jugular Port-A-Cath without complications. 5. MRI of pelvis performed on October 05, 2016 at [facility]: Rectal mass 7.7 cm x 6.2 cm x 9.6 cm in length located within 3 cm of the anal sphincter and 6.4 cm from the anal verge with radi ographic extension though multiple areas of the bowel wall. 6. CT abdomen/pelvis also at [facility] October 05, 2016; large almost completely [...] the tumor proper. Concerns raised by the [facility] Tumor Board were that the prior [...] as well as mutation analysis." Pathological Specimen #[id number] ([facility]). 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 "This is highly suspicious for invasive malignancy. Presence of absence of an invasive lesi on cannot be established with certainty." Current Assessment & Plan Paulette Byrnes returned to clinic on 11/29/2016 alone for follow up and treatment of prem villatoro advanced rectal cancer. Interval history is notable for the fact that Paulette had a reaction to Ferrlecit (sodium ferr ic gluconate complex) that was being coadministered with her chemotherapy two weeks ago. Review of systems is notable for the fact that Paulette's ZAIN drain is putting out less than 5 m ls a day. Clinical exam confirm that her ZAIN drain bulb is empty. Laboratory exam is notable for significant improvement in anemia. Assessment;locally advanced rectal cancer. Plan; proceed today with Cycle #4 of FOLFOX. Intravenous iron will be discontinued. Return to clinic on 12/13/2016 for Cycle #5. Return to clinic on 12/27/2016 for Cycle #6 to coincide w ith her treatment planning CT scan. Return on 01/10/2017 to begin continuous intravenous infu kei of 5FU at 225 mg/m/day with radiation. Review of Systems: REVIEW OF SYSTEMS Constitutional: Reports energy level is low. Reports nausea continues to worsen. States trixie azepam is helpful. States she is still having night sweats, but less often than she used to. Denies high fevers, shaking chills, anorexia, vomiting, weight loss. Appetite without izquierdo ges. Ear, Nose, Mouth, Throat: Does not have sores in her mouth, but states mouth is sore at reta es when eating. Denies dysphagia, or tinnitus. Cardiovascular: Denies shortness of breath, dyspnea on exertion, chest pain, palpitations o r orthopnea. Respiratory: Denies cough, hemoptysis, or sputum production. Gastrointestinal: Reports occasional abdominal pain if she gets constipated, has not had th is problem recently. Reports rectal discharge continues. Denies constipation, diarrhea, lyle na, or bright red blood per rectum. Genitourinary: Reports vaginal discharge continues. Denies hematuria or dysuria. Musculoskeletal: Right wrist pain, states due to crocheting. Neurologic: Reports a few recent headaches in the morning. Denies visual changes, or numbne ss/tingling of the extremities. Endocrine: Reports sensitivity to cold. Denies peripheral edema. Hematologic: Denies spontaneous bruising or bleeding. Integumentary: [...] as needed (Nausea/V omiting). 20 tablet 5 Multiple Vitamins-Minerals (MULTIVITAMIN ADULT PO) Take by [...] Q46H Sirena Helton MD 4,050 mg at 11/29/16 1312 Allergies: Allergy: Allergies Allergen Reactions Propoxyphene Na [...] Objectives: Temp: 36.2 C (97.2 F) BP: 130/76 mmHg Pulse: 91 Resp: 16 SpO2: 96 % on Min/Max Temp past 24 hours:Temp Av.2 C (97.2 F) Min: 36.2 C (97.2 F) Max: 3 6.2 C (97.2 F) No intake or output data in the 24 hours ending 11/29/16 1819 Wt. Admission: Weight: 66.134 kg (145 lb 12.8 oz) Wt. Current: Weight: 66.134 kg (145 l b 12.8 oz) Wt Readings from Last 3 Encounters: 11/29/16 66.134 kg (145 lb 12.8 oz) 11/15/16 63.821 kg (140 lb 11.2 oz) 11/01/16 62 kg (136 lb 11 oz) Physical Exam: General: The patient is [...] Jasmine drain in the right low er quadrant; exit site is clean/dry and without discharge. There is no fluid in the bulb. Extremities: Nontender, no [...] for PAULETTE BYRNES ( ) as of 11/29/2016 17:57 Ref. Range 11/29/2016 08:25 WBC Latest Ref Range: 4.0-11.0 K/uL 6.0 RBC: Latest Ref Range: 3.70-5.20 M/uL 4.41 Hgb Latest Ref Range: 11.5-16.0 g/dL 11.0 (L) Hct, Final Latest Ref Range: 34.0-47.0 % 35.2 MCV Latest Ref Range: 83.0-101.0 fL 79.7 (L) MCH Latest Ref Range: 28.0-35.0 pg 24.9 (L) MCHC Latest Ref Range: 32.0-36.0 g/dL 31.2 (L) RDW-CV Latest Ref Range: <15.0 % 22.0 (H) Platelet Count Latest Ref Range: 140-440 K/uL 239 MPV Latest Units: fL 6.8 Absolute Neutrophils Latest Ref Range: 1.80-8.50 K/uL 4.30 Absolute Lymphocytes Latest Ref Range: 0.60-3.20 K/uL 0.80 Absolute Monocytes Latest Ref Range: 0.00-1.00 K/uL 0.50 Absolute Eosinophils Latest Ref Range: 0.00-0.40 K/uL 0.30 Absolute Basophils Latest Ref Range: 0.00-0.10 K/uL 0.00 % Neutrophils Latest Ref Range: 45.0-82.0 % 72.3 % Lymphocytes Latest Ref Range: 20.0-45.0 % 13.8 (L) % Monocytes Latest Ref Range: 4.0-12.0 % 8.8 % Eosinophils Latest Ref Range: 0.0-5.0 % 4.3 % Basophils Latest Ref Range: 0.0-1.0 % 0.8 NA Latest Ref Range: 136-149 mmol/L 138 K Latest Ref Range: 3.5-5.1 mmol/L 3.6 Chloride Latest Ref Range: 98-109 mmol/L 99 Carbon dioxide Latest Ref Range: 24-31 mmol/L 26 ANION GAP Latest Ref Range: 3-16 mmol/L 13 GLUCOSE Latest Ref Range: 70-109 mg/dL 144 (H) BUN Latest Ref Range: 7-18 mg/dL 11 Creatinine Latest Ref Range: 0.60-1.30 mg/dL 0.60 BUN/CREA Unknown 18.3 ALBUMIN Latest Ref Range: 3.2-5.0 g/dL 3.1 (L) Albumin/Globulin ratio Latest Ref Range: 0.8-2.0 0.9 Total protein Latest Ref Range: 6.0-7.8 g/dL 6.7 EGFR IF NOT Latest Ref Range: >=60 mL/min/1.73m2 >60 Calcium Latest Ref Range: 8.3-10.5 mg/dL 8.9 ALK PHOS Latest Ref Range: 40-110 U/L 119 (H) ALT (SGPT) (REF) Latest Ref Range: 6-45 U/L 38 AST (SGOT) (REF) Latest Ref Range: 10-42 U/L 37 LDH TOTAL Latest Ref Range: 91-180 U/L 166 BILIRUBIN TOTAL Latest Ref Range: 0.1-1.5 mg/dL 0.5 GLOBULIN Latest Ref Range: 2.1-3.8 g/dL 3.6 FERRITIN Latest Ref Range: 11-307 ng/mL 151 IRON Latest Ref Range: 40-150 ug/dL 32 (L) TIBC Latest Ref Range: 235-425 ug/dL 377 % SATURATION Latest Ref Range: 20.0-55.0 % 8.5 (L) Transferrin Latest Ref Range: 240.0-480.0 mg/dL 269.4 Pharmacovigilance: Palliative Care: Patient's Medications New Prescriptions No medications on file Modified Medications No medications on file Discontinued Medications No medications on file Procedure: Day 1, Cycle 4 (14-day cycle) Completed; Released on 11/29/2016; Originally planned for 2016 Labs Iron and Transferrin STAT, ONE TIME, 11/29/16 at 0825, For 1 occurrence OrderHistory Ferritin STAT, ONE TIME, 11/29/16 at 0825, For 1 occurrence OrderHistory Lactate Dehydrogenase STAT, ONE TIME, 11/29/16 at 0825, For 1 occurrence OrderHistory Comprehensive Metabolic Panel STAT, ONE TIME, 11/29/16 at 0825, For 1 occurrence OrderHistory CBC with Differential STAT, ONE TIME, Tue11/29/16 at 0825, For 1 occurrence OrderHistory Nursing Orders OK to proceed with chemotherapy (Not Released) 11/29/16 -Hgb almost back to normal. Drop iv iron therapy. INFORMED CONSENT: The nature and character of the proposed treatment with Cycle #4 FOLFOX a nd the anticipated results of the proposed treatment with Cycle #4 FOLFOX;recognized alterna tive forms of treatment, including non-treatment; the risks benefits, and side effects of pr oposed treatment, alternative treatments and non-treatment were discussed with the patient w ho consents to proceed with treatment with Cycle #4 FOLFOX. The treating provider has examin ed the patient and reviewed the diagnostic data, including laboratory data, and deems that i t is safe and appropriate to proceed with treatment with Cycle #4 FOLFOX.SIRENA SWARTZ MD. OrderHistory Plans for discharge (Not Released) 11/03- ALLERGIC REACTION TO FERRLICIT, iv iron therapy discontinued . Pump off in pend leton QFU CBC,CMP, LDH, CEA * PORT DRAW AND 4 HOUR RX IN 14 DAYS QFU CBC,CMP, LDH, CEA * PORT DRAW AND 4 HOUR RX IN 28 DAYS OrderHistory Pre-Medications ondansetron (ZOFRAN) 8 mg, dexamethasone (DECADRON) 4 mg in sodium chloride 0.9% 50 m L IVPB Intravenous, for 16 Minutes, ONCE, Tue11/29/16 at 1000, For 1 dose Administer 30 minutes prior to chemotherapy. OrderHistory fosaprepitant (EMEND) 150 mg in sodium chloride 0.9% 150 mL IVPB 150 mg, Intravenous, for 20 Minutes, ONCE, Tue11/29/16 at 1015, For 1 dose Do not shake bag. [...] BSA), Intravenous, f or 2 Hours, ONCE, Tue11/29/16 at 1100, For 1 dose Chemotherapy: Use appropriate handling precautions. Not compatible with NS or any chloride- containing solutions. Flush line with D5W prior to giving any other meds. Administer via y-s ite with leucovorin. OrderHistory leucovorin 340 mg in dextrose 5% 250 mL infusion 340 mg (rounded from 338 mg = 200 mg/m2 1.69 m2 Order-specific BSA), Intravenous, fo r 2 Hours, ONCE, Tue11/29/16 at 1100, For 1 dose Administer via y-site with oxaliplatin OrderHistory fluorouracil 4,050 mg in sodium chloride 0.9% 11 mL CADD PUMP chemo infusion 4,050 mg (rounded from 4,056 mg = 2,400 mg/m2 1.69 m2 Order-specific BSA), Intraveno us, for 46 Hours, EVERY 46 HOURS, First dose on Tue11/29/16 at 1330 OUTPATIENT Chemotherapy: Use appropriate handling [...] this chart may have been created with [employer] voice recognition software. Occasi onal wrong-word or [...]
--- OUTSIDE RECORDS SUMMARY | ~2019-06-11 | XMS | Encounter Summary ---
Demographics + + + | Address | [address] | | | [place] [address] | + + + | Home Phone | | + + + | Preferred Language | Unknown | + + + | Marital Status | | + + + | Scientologist Affiliation | Unknown | + + + | Race | Unknown | + + + | Ethnic Group | Unknown | + + + Author + + + | Author | [facility] | | | and [place] | + + + | Organization | [facility] | | | and [place] | + + + | Address | Unknown | + + + | Phone | Unavailable | + + + Support + + + + + | Name | Relationship | Address | Phone | + + + + + | Lamar Phillips | REZA | [place] [address] | | + + + + + Care Team Providers + +------+ + | Care Board Member Name | Role | Phone | + +------+ + | Kristian Anderson DO | PCP | | + +------+ + Reason for Referral Evaluate & Treat (Routine) +--------+ + + + + + | Status | Reason | Specialty | Diagnoses / | Referred By | Referred To | | | | | Procedures | Contact | Contact | +--------+ + + + + + | Closed | Specialty | Nutrition | Diagnoses | | [facility] | | | Services | | Rectal | Janel, | Nutrition | | | Required | | cancer (HCC) | Mike White, | Services [address] | | | | | | MD [address] [place] | | | | | | [address] | [place], | | | | | | [place], | [place] [address] | | | | | | [place] [address] | Phone: | | | | | | Phone: | [phone] | | | | | | [phone] | Fax: | | | | | | Fax: | [phone] | | | | | | [phone] | | +--------+ + + + + + Reason for Visit + + + | Reason | Comments | + + + | IDT Note | | + + + Encounter Details +--------+ + + + + | Date | Type | Department | Care Team | Description | +--------+ + + + + | 10/04/ | Telephone | [facility] | Janel, | IDT Note | | 2017 | | MED CTR CHEMO | Mike White MD [address] | | | | | INFUSION [address] [place] | | | | | [place], | [place] [address] | | | | | [place] [address] | [phone] | | | | | [phone] | | | +--------+ + + + [...] as of this encounter Plan of Treatment + + +--------+ + + | Name | Type | Priori | Associated Diagnoses | Order Schedule | | | | ty | | | + + +--------+ + + | * [facility] | Outpatient | Routin | Rectal cancer | Ordered: 10/04/2016 | | Services - AMB | Referral | e | (HCC) | | | Referral | | | | | + + +--------+ + + documented as of this encounter Visit Diagnoses + + | Diagnosis | + + | Rectal cancer (HCC) - Primary Malignant neoplasm of rectum | + + documented in this encounter"
--- OUTSIDE RECORDS SUMMARY | ~2019-06-11 | XMS | Encounter Summary ---
Demographics + + + | Address | [address] | | | [place] [address] | + + + | Home Phone [...] Team Providers + +------+ + | Care Warp Tension Tester Name | Role | Phone | [...] | | | | [facility] | [place], [place] | | | | | [place] [address] | [address] | | | | | [place], [place] | | | | | | [address] | | | | | | [phone] | | | +--------+ + + + [...] | | | | | [place]mit[place] Hines [place], | | | | | | [place] [address] | | | | | | [phone] | | | | | | | | +--------+---------+ + + + documented as of this encounter Visit Diagnoses Not on filedocumented in this encounter"
--- OUTSIDE RECORDS SUMMARY | ~2019-06-11 | XMS | Encounter Summary ---
Demographics + + + | Address | [address] | | | [place] [address] | + + + | Home Phone | | + + + | Preferred Language | Unknown | + + + | Marital Status | | + + + | Anabaptism Affiliation | Unknown | + + + | Race | Unknown | + + + | Ethnic Group | Unknown | + + + Author + + + | Author | [facility] | | | and [place] | + + + | Organization | [facility] | | | and [place] | + + + | Address | Unknown | + + + | Phone | Unavailable | + + + Support + + + + + | Name | Relationship | Address | Phone | + + + + + | Lamar Phillips | REZA | [place] [address] | | + + + + + Care Team Providers + +------+ + | Care Food Scientist Name | Role | Phone | [...] + + + + | 12/27/ | Hospital | [facility] | Janel, | | | 2017 | Encounter | MED CTR NUTRITION | Mike White MD [address] | | | | | SERVICES [address] [place] | | | | | [place], | [place] [address] | | | | | [place] [address] | [phone] | | | | | [phone] | | | | | | | [...] as of this encounter Progress Notes Ludivina Flores RDN - 12/28/2016 7:39 AM PDTFormatting of this note might be different f rom the original. Medical Nutrition Note SUBJECTIVE: Meet in f/u with the pt today. She is doing well with her appetite and oral i ntake. She is gaining weight but is having problems with constipation and diarrhea from her ostomy. Discussed keeping a food record to see if there is a correlation between foods and her symptoms. Discussed adequate hydration as well use of miralax. She is going to be sta rting radiation so diarrhea may become more of an issue for her. Will continue to follow up / OBJECTIVE: Diet: high protein high calorie Wt Readings from Last 3 Encounters: 12/27/16 68.4 kg (150 lb 12.8 oz) 12/13/16 68.3 kg (150 lb 8 oz) 11/29/16 66.1 kg (145 lb 12.8 oz) Ht Readings from Last 1 Encounters: 10/18/16 1.626 m (5' 4") There is no height or weight on file to calculate BMI. Facility age limit for growth perce ntiles is 20 years. Labs: Lab Results Component Value Date ALBUMIN 3.2 12/27/2016 Time spent: 15 minutes Thank you for the referral, Ludivina Flores RDN 12/28/2016 7:39 documented in this encounter Plan of Treatment Not on filedocumented as of this encounter Visit Diagnoses Not on filedocumented in this encounter
--- OUTSIDE RECORDS SUMMARY | ~2019-06-11 | XMS | Encounter Summary ---
Demographics + + + | Address | [address] | | | [place] [address] | + + + | Home Phone | | + + + | Preferred Language | Unknown | + + + | Marital Status | | + + + | Voodoo Affiliation | Unknown | + + + | Race | Unknown | + + + | Ethnic Group | Unknown | + + + Author + + + | Author | [facility] | | | and [place] | + + + | Organization | [facility] | | | and [place] | + + + | Address | Unknown | + + + | Phone | Unavailable | + + + Support + + + + + | Name | Relationship | Address | Phone | + + + + + | Lamar Phillips | REZA | [place] [address] | | + + + + + Care Team Providers + +------+ + | Care System Software Developer Name | Role | Phone | [...] + + | 01/17/ | Hospital | [facility] | Tayla Abernathy | Rectal cancer (HCC) | | 2017 | Encounter | [facility] | J, PharmD [address] | | | | | [address] CL[address] | [address] | | | | | [address] | [place] [address] | | | | | [place] [address] | [phone] | | | | | [phone] | | | +--------+ + + + [...] + + + | Blood Pressure | 130/78 | 01/17/2017 9:40 AM | | | | | PDT | | + + + + + | Pulse | 85 | 01/17/2017 9:40 AM | | | | | PDT | | + + + + + | Temperature | 36.7 C (98.1 F) | 01/17/2017 9:40 AM | | | | | PDT | | + + + + + | Respiratory Rate | 18 | 01/17/2017 9:40 AM | | | | | PDT | | + + + + + | Oxygen Saturation | 95% | 01/17/2017 9:40 AM | | | | | PDT | | + + + + + | Inhaled Oxygen | - | - | | | Concentration | | | | + + + + + | Weight | 69.4 kg (153 lb 1.6 | 01/17/2017 9:40 AM | | | | oz) | PDT | | + + + + + | Height | - | - | | + + + + + | Body Mass Index | 26.28 | 10/18/2016 11:04 AM | | | [...] encounter Progress Notes Tayla Abernathy, PharmD - 01/17/2017 10:03 AM PDTFormatting of this note might be differ ent from the original. Clinical Oncology Pharmacy Services Progress Note [facility] Pt. Name/Age/: Jenn Parada 56 y.o. 1960 CSN: [id number] Date of service: 01/17/2017 Provider: Tayla Abernathy, SheilaD Identifying Statement: Jenn Parada is a 56 y.o. female from [address] [place] [address], There were no encounter diagnoses. The patient chart and medications were reviewed in detail and the patient was seen and exam ined. Patient was referred to Clinical Oncology Pharmacist for follow up prior to treatment. Assessment and plan: Patient is tolerating her continuous 5-FU infusion + external beam radiation quite well xavi s far. Having progressive fatigue, some mouth sores, as well as occasional nausea. Her nause a is controlled using lorazepam +/- ondansetron prn. She has been using a "salt rinse" for h er mouth sores, with some relief. Patient has been afebrile since initiation of antibiotics by Dr Islas. Laboratory data is notable for progressive anemia, not currently dose leung iting. 1. Proceed with Day #1 Week #2 of continuous infusion 5-FU 225 mg/m2/day 2. Treatment plan weight updated to most current BSA. 3. Sodium bicarbonate mouth rinse 5 x daily. 4. Follow up in 1 week. Subjective: The patient chart and medications were reviewed in detail and the patient was seen and exam ineavi. Jenn Parada is a 56 y.o. female with advanced rectal cancer, here for treatment. Jenn is starting her second week of CIVI 5-FU + radiation therapy, following completion of 6 cycles of FOLFOX chemotherapy. This was recommended by her treatment team at [facility]. Jenn is noticing progressive fatigue, but continues to work 4 days a week and maintain her weight. She has a ZAIN drain in place and was started on amoxicillin and ciprofloxacin at her last román ointment, with the plan being continuing until surgery. She is tolerating her antibiotics we ll and has remained afebrile. She may have the start of 1 mouth sore along the inside of her lower lip. She initiated an unknown "salt rinse," so will have her switch to a bicarb rinse . This is not interfering with her ability to eat or drink in any way. Some mild nausea, wit hout vomiting, relieved with current antiemetic regimen. Denies diarrhea or other GI dysfunc tion. Some dyspnea on exertion, no chest pain or palpitations associated. PMH: Past Medical History: Diagnosis Date Hyperlipidemia Hypertension Nephrolithiasis Squamous cell carcinoma of vulva (HCC) Social & Family Hx: Social History Social History Marital status: Spouse name: N/A Number of children: N/A Years of education: N/A Social History Main Topics Smoking status: Former Smoker Packs/day: 1.50 Years: 41.00 Quit date: 07/19/2016 Smokeless tobacco: Not on file Alcohol use No Comment: rare Drug use: No Comment: Previous use with speed, quit 40 years ago Sexual activity: Not Currently Other Topics Concern Not on file Social History Narrative No narrative on file Family History Problem Relation Age of Onset Cancer Mother Breast Review of Systems: Constitutional: Reports energy level has been lower since starting radiation. Reports nause a, lorazepam is more helpful than zofran. Reports occasional night sweats. Reports low appet ite, but is forcing herself to eat. Denies high fevers, shaking chills, anorexia, vomiting, weight loss. Ear, Nose, Mouth, Throat: Reports some sores on inner lower lip. Denies dysphagia, or tinni tus. Cardiovascular: Reports a few episodes of dyspnea with exertion recently while at work. De nies shortness of breath, chest pain, palpitations or orthopnea. Respiratory: Denies cough, hemoptysis, or sputum production. Gastrointestinal: Has had some pain in lower left abdomen pain due to an infection, this is improving. Reports occasional constipation or diarrhea continues. States it depends on what she eats. Denies melena, or bright red blood per rectum. Genitourinary: Denies hematuria or dysuria. Musculoskeletal: Denies joint pain or tenderness. Neurologic: Reports intermittent short lived headaches. Denies visual changes, or numbness/ tingling of the extremities. Endocrine: Denies peripheral edema or heat/cold intolerance. Hematologic: Denies spontaneous bruising or bleeding. Integumentary: Denies rash, wounds or other skin concerns. Pain: Denies pain. Review of systems as above, otherwise negative Medications: Current Outpatient Prescriptions Medication Sig ALPRAZolam (XANAX) 0.5 mg tablet Bring with to scheduled MRI, take one tablet 30 minute s before MRI, may repeat as needed. amoxicillin (AMOXIL) 500 MG capsule Take 1 capsule by mouth 3 times daily for 21 days. ascorbic acid (VITAMIN C) 500 mg tablet Take 1,000 mg by mouth Daily. Biotin 10 MG CAPS Take by mouth. For Hair, skin, nails. buPROPion (WELLBUTRIN SR) 150 mg 12 hr tablet Take 150 mg by mouth Daily. ciprofloxacin (CIPRO) 500 mg tablet Take 1 tablet by mouth 2 times daily for 21 days. clobetasol (TEMOVATE) 0.05% ointment Apply topically Once [...] Facility-Administered Medications Ordered in Other Encounters Medication heparin 100 units/mL flush injection 500 Units Allergies: Allergies Allergen Reactions Propoxyphene Na Ferric Gluc Cplx In Sucrose Nausea Only and Other (See Comments) Flushing and diaphoretic Vitals: Temp: 36.7 C (98.1 F) BP: 130/78 Pulse: 85 Resp: 18 SpO2: 95 % on Temp :Temp Av.7 C (98.1 F) Min: 36.7 C (98.1 F) Max: 36.7 C (98.1 F) No intake or output data in the 24 hours ending 01/17/17 1003 Wt. Current: Weight: 69.4 kg (153 lb 1.6 oz) Diagnostic studies: Available data and images were reviewed personally. See reports. Significant results and findings are addressed here or in the Assessment and Plan. Recent Labs Lab 01/17/17 0859 WBC 5.2 HGB 10.2* HCT 31.3* PLT 327 Recent Labs Lab 01/17/17 0859 NA 139 K 3.5 CL 105 CO2 27 BUN 10 CREA 0.52* GLU 88 CALCIUM 8.9 BILITOT 0.3 AST 25 ALT 20 ALKPHOS 93 ALBUMIN 3.0* Imaging: No results found. Electronically signed by: Tayla Abernathy, Pedrito 01/17/2017 10:03 Referring Provider: Dr Mike Islas Supervising Provider: Dr Calvin Landrum documented in this encounter Plan of Treatment Not on filedocumented as of this encounter Visit Diagnoses + + | Diagnosis | + + | Rectal cancer (HCC) Malignant neoplasm of rectum | + + documented in this encounter
--- OUTSIDE RECORDS SUMMARY | ~2019-06-11 | XMS | Encounter Summary ---
Demographics + + + | Address | [address] | | | [place] [address] | + + + | Home Phone [...] Team Providers + +------+ + | Care Aircraft Dispatcher Name | Role | Phone | [...] | | 2017 | | Center at [facility] [address] | [address] | | | | | [address] | [place], | | | | | Mailcode: [place] | [place] [address] | | | | | for Health and | [phone] | | | | | [facility] [address] | | | | | | [place], [place] | | | | | | [address] | | | | | | [phone] | | | +--------+ + + + [...] | | | | | [place] [address], | | | | | | [place] [address] | | | | | | [phone] | | | | | | | | +--------+---------+ + + + documented as of this encounter Visit Diagnoses Not on filecumented in this encounter"
--- OUTSIDE RECORDS SUMMARY | ~2019-06-11 | XMS | Encounter Summary ---
Demographics + + + | Address | [address] | | | [place] [address] | + + + | Home Phone [...] Organization | [facility] | | | and [place] | + + + | Address | Unknown | + + + | Phone | Unavailable | + + + Support + + + + + | Name | Relationship | Address | Phone | + + + + + | Lamar Phillips | REZA | [place] [address] | | + + + + + Care Team Providers + +------+ + | Care Escrow Representative Name | Role | Phone | + +------+ + | Kristian Anderson DO | PCP | | + +------+ + Encounter Details +--------+ + + + + | Date | Type | Department | Care Team | Description | +--------+ + + + + | 12/15/ | Hospital | [facility] | Joel Alfaro DO | Rectal cancer (HCC) | | 2017 | Encounter | MED CTR CHEMO | [address] | | | | | INFUSION [address] | [place], [place] | | | | | [place], | [address] | | | | | [place] [address] | | | | | | [phone] | | | +--------+ + + + [...] + + + | Blood Pressure | 126/73 | 12/15/2016 10:46 AM | | | | | PDT | | + + + + + | Pulse | 76 | 12/15/2016 10:46 AM | | | | | PDT | | + + + + + | Temperature | 37.1 C (98.8 F) | 12/15/2016 10:46 AM | | | | | PDT | | + + + + + | Respiratory Rate | 18 | 12/15/2016 10:46 AM | | | | | PDT | | + + + + + | Oxygen Saturation | 100% | 12/15/2016 10:46 AM | | | | | PDT [...] documented as of this encounter Progress Notes Jigna Chris, RN - 12/15/2016 10:49 AM PDTEnergy level: States her energy level is fair. Fever or chills: No fevers or chills. Appetite: States her appetite varies. Nausea and/or vomiting: States she has been nauseated, but has been taking her anti-nausea medication which appear to be helping. Bowels: States she is slightly constipated and has changed her diet. Numbness and tingling: States her finger tips are cold from the chemo. Bleeding or bruising: Denies any bleeding or bruising. Karnofsky: 90% Nurses notes: Is here today to get her pump removed. Denies any pain at this time. Edith mccullough signed by Jigna Chris, RN at 12/15/2016 10:52 AM PDTdocumented in this encounter Plan of Treatment [...] heparin 100 units/mL flush | Given | 12/16/19 | 500 | | | | injection 500 Units 500 Units ( | 10:52 | Units | | | | mL), Intracatheter, PRN, Line | | AM PDT | | | | | Care, Starting 12/15/16 at | | | | | | | 0932 | | | | | | + +--------+ +-------+------+------+ +---+---+ | | | +---+---+ documented in this encounter"
--- OUTSIDE RECORDS SUMMARY | ~2019-06-11 | XMS | Encounter Summary ---
Demographics + + + | Address | [address] | | | [place] [address] | + + + | Home Phone [...] | [facility] | | | and [place] | + + + | Organization | [facility] | | | and [place] | + + + | Address | Unknown | + + + | Phone | Unavailable | + + + Support + + + + + | Name | Relationship | Address | Phone | + + + + + | Lamar Phillips | REZA | [place] [address] | | + + + + + Care Team Providers + +------+ + | Care Machine Spreader Name | Role | Phone | + [...] + | 03/05/ | Telephone | [facility] | Janel, | Patient Concerns | | 2019 | | [facility] | Mike White MD [address] | | | | | [address]OGY CLIN[address] | [address] | | | | | [address] [place] | [place] [address] | | | | | [place] [address] | [phone] | | | | | [phone] | | | +--------+ + + + [...]
--- OUTSIDE RECORDS SUMMARY | ~2019-06-11 | XMS | Encounter Summary ---
Demographics + + + | Address | [address] | | | [place] [address] | + + + | Home Phone [...] | Organization | [facility] | | | and [place] | + + + | Address | Unknown | + + + | Phone | Unavailable | + + + Support + + + + + | Name | Relationship | Address | Phone | + + + + + | Lamar Phillips | REZA | [place] [address] | | + + + + + Care Team Providers + +------+ + | Care Technical Service Engineer Name | Role | Phone | [...] neoplasm of | Mike C, | [address] | | | | | rectum (HCC) | MD [address] | [place], | | | | | Procedures | [address] | [place] [address] | | | | | [place] | [place], | Phone: | | | | | [place] | [place] [address] | [phone] | | | | | INJECTION, | Phone: | Fax: | | | | | [address] [place] | [phone] | [phone] | | | | | NORMAL | Fax: | | | | | | SALINE | [phone] | | | | | | SOLUTION | | | | | | | INFUS, 500 | | | | | | | [address] [place] | | | | | | | NORMAL | | | | | | | SALINE | | | | | | | SOLUTION | | | | | | | INFUS, 250 | | | | | | | ML [place] | | | | | | | STERILE | | | | | | | WATER/SALINE | | | | | | | , 10 ML [place] | | | | | | | CHEMOTHER, | | | | | | | IV PUSH,EA | | | | | | | ADD DRUG VT | | | | | | | CHEMOTHER, | | | | | | | IV INFUSION, | | | | | | | 1 HR VT | | | | | | | CHEMOTHER, | | | | | | | IV INFUSION, | | | | | | | EA HR VT | | | | | | | CHEMOTHER,NO | | | | | | | N-HORMONE | | | | | | | ANTI-NEOPL, | | | | | | | SUB-Q/IM VT | | | | | | | CHEMOTHER | | | | | | | HORMON | | | | | | | ANTINEOPL | | | | | | | SUB-Q/IM VT | | | | | | | ONDANSETRON | | | | | | | HCL | | | | | | | INJECTION, 1 | | | | | | | MG VT | | | | | | | DEXAMETHASON | | | | | | | E SODIUM | | | | | | | PHOS, 1 MG | | | | | | | VT LORAZEPAM | | | | | | | INJECTION, | | | | | | | 2 MG VT | | | | | | | OXALIPLATIN, | | | | | | | .5 MG VT | | | | | | | LEUCOVORIN | | | | | | | CALCIUM | | | | | | | INJECTION, | | | | | | | 50 MG VT | | | | | | | DIPHENHYDRAM | | | | | | | INE HCL | | | | | | | INJECTIO, 50 | | | | | | | MG VT | | | | | | | METHYLPREDNI | | | | | | | SOLONE | | | | | | | INJECTION, | | | | | | | 125 MG VT | | | | | | | ADRENALIN | | | | | | | EPINEPHRINE | | | | | | | INJECT, .1 | | | | | | | MG VT | | | | | | | ALBUTEROL | | | | | | | COMP CON, 1 | | | | | | | MG VT | | | | | | | ALBUTEROL | | | | | | | NON-COMP | | | | | | | CON, 1 MG | | | | | | | VT | | | | | | | INJECTION, | | | | | | | FAMOTIDINE, | | | | | | | 20 MG | | | +--------+--------+ + + + + Encounter Details +--------+ + + + + | Date | Type | Department | Care Team | Description | +--------+ + + + + | 02/07/ | Hospital | [facility] | [facility], | Rectal cancer (HCC) | | 2017 | Encounter | MED CTR CHEMO | Mike White MD [address] | | | | | [address] | [address] [place] | | | | | [place], | [place] [address] | | | | | [place] [address] | [phone] | | | | | [phone] | | | +--------+ + + + [...] | 14 | 0 | 01/27/20 | 07/24/201 | | (DIFLUCAN) 100 mg | day [...] + documented as of this encounter Progress Fabienne Alvarez RN - 02/07/2017 10:51 AM PDTPatient discharged in satisfactory condition . Discharged ambulatory. To home. Verified that patient has antinausea medications at home. Future appointments and After Visit Summary (AVS) provided. documented in this encounter Plan of Treatment Not on filedocumented as of this encounter Procedures + +--------+ + + + | Procedure Name | Priori | Date/Time | Associated Diagnosis | Comments | | | ty | | | | + +--------+ + + + | CBC WITH | STAT | 02/07/2017 | Rectal cancer | Results for this | | DIFFERENTIAL | | 9:20 AM | (HCC) | procedure are in the | | | | PDT | | results section. | + +--------+ + + + | LACTATE | STAT | 02/07/2017 | Rectal cancer | Results for this | | DEHYDROGENASE | | 9:20 AM | (HCC) | procedure are in the | | | | PDT | | results section. | + +--------+ + + + | COMPREHENSIVE | STAT | 02/07/2017 | Rectal cancer | Results for this | | METABOLIC PANEL | | 9:20 AM | (HCC) | procedure are in the | | | | PDT | | results section. | + +--------+ + + + documented in this encounter Results CBC with Differential (02/07/2017 9:20 AM PDT) + + + + + + | Component | Value | Ref Range | Performed | Pathologist | | | | | At | Signature | + + + + + + | WBC | 9.9 | 4.0 - 11.0 K/uL | [facility] | | | | | | [facility] | | | | | | [facility] | | | | | | [facility] - | | | | | | LABORATORY | | + + + + + + | RBC | 3.93 | 3.70 - 5.20 | [facility] | | | | | M/uL | [facility] | | | | | | [facility] | | | | | | [facility] - | | | | | | LABORATORY | | + + + + + + | Hemoglobin | 11.3 (L) | 11.5 - 16.0 | [facility] | | | | | g/dL | [facility] | | | | | | [facility] | | | | | | C[facility] - | | | | | | LABORATORY | | + + + + + + | Hematocrit | 34.3 | 34.0 - 47.0 % | [facility] [...] + + + + | MCH | 28.7 | 28.0 - 35.0 pg | [facility] | | | | | | [facility] | | | | | | [facility] | | | | | | [facility] - | | | | | | LABORATORY | | + + + + + + | MCHC | 32.9 | 32.0 - 36.0 | [facility] | | | | | g/dL | [facility] | | | | | | [facility] | | | | | | C[facility] - | | | | | | LABORATORY | | + + + + + + | RDW-CV | 22.2 (H) | <15.0 % | [facility] | [...] + + + | % | 4.4 (L) | 20.0 - 45.0 % | [facility] | | | Lymphocytes | | | [facility] | | | | | | [facility]ICAL | | | | | | CENTER - | | | | | | LABORATORY | | + + + + + + | % Monocytes | 5.4 | 4.0 - 12.0 % | [facility] | | | | | | [facility] | | | | | | [facility]ICAL | | | | | | [facility] - | | | | | | LABORATORY | | + + + + + + | % | 4.8 | 0.0 - 5.0 % | [facility] [...] + + + + | Absolute | 8.40 | 1.80 - 8.50 | [facility] | [...] [address] | [place] | [phone] | | [facility] | | [address] | | | - LABORATORY | | | | + + + + + Comprehensive Metabolic Panel (02/07/2017 9:20 AM PDT) + + + + + + | Component | Value | Ref Range | Performed | Pathologist | | | | | At | Signature | + + + + + + | Na | 137 | 136 - 149 | [facility] | [...] + + + + | CO2 | 24 | 24 - 31 mmol/L | [facility] [...] + + + + | Glucose | 147 (H) | 70 - 109 mg/dL | [...] | | | FILTRATION | mL/min/1.73m2 | [facility] | | | [place] | RATE,ESTIMATED | | MEDICAL | | | | mL/min/1.45o5Sqyl than | | CENTER - | | [...] | | | | | mg/dL | [facility] | | | | | [...] + + + + | AST | 30 | 10 - 42 U/L | [facility] [...] + + + + | Alkaline | 114 (H) | 40 - 110 U/L | [facility] | | | Phosphatase | | | [facility] | | | | | | [facility]ICAL | | | | | | CENTER - | | | | | | LABORATORY | | + + + + + + | Globulin | 3.1 | 2.1 - 3.8 g/dL | [facility] [...] + + + + | BUN/Creatin | 18.3 | | [facility] | | | ine [...] + | [facility] | [address] | [place] | [phone] | | [facility] | | [address] | | | - LABORATORY | | | | + + + + + Lactate Dehydrogenase (02/07/2017 9:20 AM PDT) + +-------+ + + + | Component | Value | Ref Range | Performed | Pathologist | | | | | At | Signature | + +-------+ + + + | LDH TOTAL | 153 | 91 - 180 U/L | [facility] | | | | | | [facility] | | | | | [...] [address]. | [address] | [place] | [phone] | | [facility] | | [address] | | | - LABORATORY | | [...] | + +--------+ + +-------+------+ | fluorouracil 2,225 mg in sodium | Given | 02/08/20 | 2,225 mg | 0.5 | | | chloride 0.9% 39.5 mL CADD PUMP | | 17 10:50 | | mL/hr | | | chemo infusion 2,225 mg (rounded | | AM PDT | | | | | from 2,230.2 mg = 180 mg/m2/day | | | | | | | | | | | | | | 1.77 m2 Treatment plan recorded | | | | | | | BSA), Intravenous, Administer | | | | | | | over 168 Hours, EVERY 7 DAYS, | | | | | | | First dose on Tue02/07/17 at | | | | | | [...]
--- OUTSIDE RECORDS SUMMARY | ~2019-06-11 | XMS | Encounter Summary ---
Demographics + + + | Address | [address] | | | [place] [address] | + + + | Home Phone [...] Providers + +------+ + | Care Medical Office Professional Instructor Name | Role | Phone | [...] To Surgery | | 2017 | | [place] [facility] [address] | | - General | | | | [address] | | | | | | Mailcode: [place] | | | | | | for Health and | | | | | | Healing, [address] | | | | | | [place], [place] | | | | | | [address] | | | | | | [phone] | | | +--------+ + + + [...] | | | | | [place] [address], | | | | | | [place] [address] | | | | | | [phone] | | | | | | | | +--------+---------+ + + + documented as of this encounter Visit Diagnoses Not on filedocumented in this encounter"
--- OUTSIDE RECORDS SUMMARY | ~2019-06-11 | XMS | Encounter Summary ---
Demographics + + + | Address | [address] | | | [place] [address] | + + + | Home Phone [...] Team Providers + +------+ + | Care Vice President And Portfolio Manager Name | Role | Phone | [...] | | | | REQUEST TO | [place], [place] | [place], [place] | | | | | SURGERY | [address] | [address] | | | | | RUBBER GOODS REPAIRER | Phone: | Phone: | | | | | [place] PART | [phone] | [phone] | | | | | REMOVAL | Fax: | Fax: | | | | | COLON W | [phone] | [phone] | | | | | COLOPROCTOST | | | | | | | LORI [place] PART | | | | | | | REMOVAL | | | | | | | COLON W | | | | | | | COLOPROC,COL | | | | | | | OST [place] | | | | | | | ILEOSTOMY/JE | | | | | | | JUNOSTOMY,NO | | | | | | | NTUBE TN | | | | | | | REMOVE | | | | | | | VAGINA WALL, | | | | | | | PARTIAL TN | | | | | | | REMOVE | | | | | | | VAGINA | | | | | | | TISSUE/PARTI | | | | | | | AL [place] | | | | | | | [...] Surgery | Diagnoses | Kirstie, | Ailyn oWlff, | | | | | Malignant | Marty Toledo MD | [address] | | | | | neoplasm of | [place] | [address] | | | | | rectum | SURGICAL | [facility] [place] | | | | | | CLINIC [facility] | [place], [place] | | | | | | [address] | [address] | | | | | | [address]VE | Phone: | | | | | | [place], | [phone] | | | | | | [place] [address] | Fax: | | | | | | Phone: | [phone] | | | | | | [phone] | | | | | | | Fax: | | | | | | | [phone] | | +--------+--------+ + + + + Encounter Details +--------+---------+ + + + | Date | Type | Department | Care Team | Description | +--------+---------+ + + + | 03/02/ | Office | Digestive Health | Ailyn Wolff MD | Rectal cancer (HCC) | | 2017 | Visit | Center at [facility] [address] | [address] | (Primary Dx) | | | | [address] | [facility], | | | | | Mailcode: [facility] [address] | | | | | [facility] and | [phone] | | | | | [place] [address] | | | | | | [place], [place] | | | | | | [address] | | | | | | [phone] | | | +--------+---------+ + + + [...] - 03/02/2017 1:40 PM PDTPATIENT SURGERY INFORMATION [facility] General Surgery Office Toll-free: , request [facility] Surgery Date: 04/21/2017 Procedure: Low anterior resection with posterior vaginectomy Surgeon Name: Dr. Ailyn Wolff MD DIRECTIONS FOR SURGERY DIET You should have clear liquids only for the entire day prior to surgery, no solid food. Kailee r liquids include anything you can see through, like water, fernando zack, lemon-clark's point soft drin ks, apple juice, tea, Gatorade/sports [...] have questions please contact the clinic at [phone], if it is after clinic h ours please call the clamp forklift operator at [phone] and ask to speak to the [facility] Resident division engineer. CAUTION! Please call the clinic if you [...] preparation, please contact the surgery office at . After hours and on weekends this number may refer you to the hospital clamp forklift operator ([phone]); please ask to speak to the general surgery resident division engineer for Dr Javed. MEDICATIONS You may take [...] e. Smoking is not allowed on the [facility] campus. If you are a smoker, please [...] anyone by 3:00 PM please call for [id number]. PARKING Parking for patients and visitors is available in the [facility] Parking structure located across from the emergency department. Patient parking is available on level 1 and 3. Metere d parking is available on the top level. CHECKING IN FOR SURGERY Go in the main entrance and check in at the Admitting Desk 9th floor of [facility] TRANSPORTATION You will require transportation home on the day of discharge. Pain medications and physical activity restrictions may limit your ability to drive safely. CANCELLING YOUR PROCEDURE Please notify the general surgery office at [phone] as soon as possible should you nee [...] prior to your surgery. PRODUCTS CONTAINING ASPIRIN Katelyn-Monkton, Anacin, Anexsia with Codeine, Andynos, Aspirin, Aspirin suppositories, Ascrip tin, Aspergum, Axotal, B-A-C, Baby Aspirin, Tony, BC Powder, Bexophene, Buffaprin, Bufferin , Buffinol, Cama-Arthritis Strength, Congespirin, [place], Coricidin, Damason, Darvon, Dristan, Annetta-Gesic, Digel, Dolprin #3 Tablets, Donatab, Doxaphene, Duragesic, Easprin, Ecotrin, Emag rin Forte, Emiprin, Emprazil, Equagesic, Equazine M, Excedrin, Fiogesic, Fiorgen PH, Fiorice t, Fiorinal, 4-Way Cold Tablet Gemnisyn, Indocin, Liquprin, Lortab ASA, Magnaprin, Marnal, Meprobamate, Midol, Momentum, N orgesic, [place], Orphengesic, Pabalate, P-A-C, Percodan, Presalin, Robaxasil, Roxiprin, Brian eto, Salocol SK-65 Compound, Sine-Aid, Sine-Off,, [place], Supac, Talwin Compound, Trigesic, Tolectin , Traiminicin, Vanquish, ZORprin, Zomax PRODUCTS CONTAINING IBUPROFEN Advil, Aleve, Haltran, Medipren, Midol, Motrin, Naproxyn, Nuprin, Rufen OTHER PRODUCTS WHICH MAY PROMOTE BLEEDING Vitamin E, Gingko Biloba, Marine Fatty Acids, Bath-3 Fish Oil Supplements Registration Process for all [...] the hospital. Discussed pre-operative plan such as clinic scheduler calling the day before surgery to gi [...] starting with clears, need for PMC appt (GROUT WORKER-need to schedule), ostomy mar leona appt (does not need, using previous colostomy site for new ileostomy site), post-op román t (3 wk). Pt denies further questions. I encouraged the pt to call with any questions, parveen rns, or new symptoms at [phone]. Bartolo, Ailyn White MD - 017 1:40 [...] rectal bleeding on 07/19/16 went to the [facility] ED CT abdomen/pelvis with IV [...] from anal verge presented at the [facility] Multidisciplinary GI Oncology Conference on [...] Mendoza pouch staple line presented at [facility] Multidisciplinary GI Oncology Conference on [...] smoking on 07/19/16 Plan: Present at the [facility] Multidisciplinary GI Oncology Conference on [...] bleeding on 07/19/16. She went to the [facility] ED. CT abdomen/pelvis with IV contrast (07/20/16) 11 cm complex mass in pelvis, either necrotic neoplasm or abscess She was admitted by Dr. Thakcer on 07/20/16. exploratory laparotomy, transabdominal drainage of [...] from anal verge presented at the [facility] Multidisciplinary GI Oncology Conference on [...] breast Hypertension Mother Heart Attack Father from [place] at age 52 Diabetes Father Heart Attack Brother Coronary Artery Disease Brother NATHAN x 4 Social History Social History Marital status: Single Spouse name: Number of children: 1 Years of education: 12 Occupational History [employer] Social History Main Topics Smoking status: Former [...] established patient, I spent 38 minutes of [id number] time, of which more than half the time was spent in counseling. 18 minute document review cc: Dr. Alfaro, Radiation Oncology at [facility] in [place]. Hemalatha Browning MD - 03/02/2017 1:40 PM [...] in her brother and father ( from [place] at age 52); and Hypertension in her [...] mass. See concurrent rectal MRI. Impression: Jenn aPrada is a 56 y.o. female with CA [...] | | | | | [address], | | | | | | [place] [address] | | | | | | [phone] | | | | | | | | +--------+---------+ + + + documented as of this encounter Visit Diagnoses + + | Diagnosis | + + | Rectal cancer (HCC) - Primary Malignant neoplasm of rectum | + + documented in this encounter
--- OUTSIDE RECORDS SUMMARY | ~2019-06-11 | XMS | Encounter Summary ---
Demographics + + + | Address | [address] | | | [place] [address] | + + + | Home Phone | | + + + | Preferred Language | Unknown | + + + | Marital Status | | + + + | Yarsanism Affiliation | Unknown | + + + | Race | Unknown | + + + | Ethnic Group | Unknown | + + + Author + + + | Author | [facility] | | | and [place] | + + + | Organization | [facility] | | | and [place] | + + + | Address | Unknown | + + + | Phone | Unavailable | + + + Support + + + + + | Name | Relationship | Address | Phone | + + + + + | Lamar Phillips | REZA | [place] [address] | | + + + + + Care Team Providers + +------+ + | Care Cold Reduction Roller Name | Role | Phone | + [...] Closed | | Radiology | Diagnoses | Lord, | [address] | | | | | Malignant | Joel C, DO | [address] | | | | | neoplasm of | [address] | [place], | | | | | rectum (HCC) | [address] | [place] [address] | | | | | Status | [place], | Phone: | | | | | post | [address] | [phone] | | | | | chemotherapy | Phone: | Fax: | | | | | Procedures | [phone] | [phone] | | | | | CT Chest | Fax: | | | | | | Abdomen | [phone] | | | | | | Pelvis w | | | | | | | Contrast | | | +--------+--------+ + + + + Reason for Visit Auth/Cert +--------+--------+ + [...] + + + + | 01/03/ | Hospital | [facility] | Joel Alfaro DO | Malignant neoplasm | | 2017 | Encounter | MED [facility] [address] | [address] | of rectum (HCC) | | | | [place], | [place] | | | | | [place] [address] | [address] | | | | | [phone] | | | +--------+ + + + [...] tablet by | 30 | 5 | 03/27/20 | | | (K-DUR) 20 mEq ER [...] + +--------+ + + + | CT CHEST ABDOMEN | Routin | 01/03/2017 | Malignant neoplasm | Results for this | | PELVIS W CONTRAST | e | 1:13 PM | of rectum (HCC) | procedure are in the | | | | PDT | | results section. | + +--------+ + + + documented in this encounter Results CT Chest Abdomen Pelvis w Contrast (01/03/2017 1:13 PM PDT) + + | Specimen | + + | | + + + + + | Narrative | Performed At | + + + | TECHNIQUE: After administration of 90 mL Omnipaque 350 intravenously | [facility] | | and oral contrast, axial CT imaging was obtained through the chest, | | | abdomen, and pelvis with coronal and sagittal reformats. Axial MIP | | | images of the lungs were acquired CLINICAL INFORMATION: restaging | | | after chemotherapy COMPARISON: CT dated 10/05/2016 and 09/17/2016. | | | Pelvic MRI 10/05/2016. CT chest 09/17/2016. FINDINGS: BONES: No | | | osteoblastic or osteolytic lesion. CHEST: Chest Wall: Right | | | chest port the tip at the cavoatrial Mediastinum and kassi: No | | | lymphadenopathy. Heart and pericardium: Heart size is normal. No | | | pericardial effusion. Vessels: 3 vessel aortic arch with minimal | | | vascular calcifications. Large airways: Normal. Pleura: Normal. No | | | pleural effusion or pneumothorax. Lungs: Right upper lobe: No | | | nodule or mass lesion. Right middle lobe: Unchanged anterior | | | subpleural 4 mm nodule, image 51. Unchanged anterior lateral | | | subpleural 3 mm nodule, image 58. Right lower lobe: No nodule or mass | | | lesion. Left upper lobe: Unchanged lateral 2 mm nodule, image 33. | | | Left lower lobe: No nodule or mass lesion. ABDOMEN/PELVIS: | | | Abdominal wall: Percutaneous left pelvic surgical drain in place. Left | | | inferior anterior abdominal wall colostomy with a fat-containing | | | peristomal hernia. Liver: Normal. Gallbladder: No calcified | | | gallstones. Normal caliber wall. Pancreas: Normal. Spleen: Normal. | | | Adrenals: Normal. Kidneys: Irregular left lower pole cortex, most | | | consistent with chronic scarring. Left extrarenal pelvis versus | | | parapelvic cyst. Left renal cysts, the largest is at the lower pole, | | | is exophytic, and measures up to 2.8 cm. Ureters: Normal Urinary | | | Bladder: Normal. Reproductive organs: Coarse calcification within | | | the uterus, most likely degenerative fibroid. Bowel: Interval | | | decreased size of the previously described large rectosigmoid | | | irregular nodular mass. The mass measures up to 6.5 cm in length and | | | 2.1 cm in greatest width. The greatest interval change is noted | | | within the exophytic components of the mass which now measure up to | | | 3.1 x 1.5 x 1.4 cm. No distinct fat plane identified between the | | | vagina and anterior wall of the rectum with heterogeneous nodular | | | soft tissue mass measuring 2.4 x 3.1 cm, decreased in size from prior | | | imaging. Moderate perirectal fat stranding with multiple slightly | | | prominent small lymph nodes measuring up to 7 mm in short axis. | | | Peritoneum: No ascites or free intraperitoneal air. Retroperitoneum: | | | Multiple subcentimeter left periaortic lymph nodes are noted, | | | the largest measures 7 mm in short axis, previously measuring 11 mm, | | | image 103. Vessels: No abdominal aortic aneurysm. Prominent | | | vascular calcifications. IMPRESSION - Significant interval | | | decreased size of the previously described large rectosigmoid mass | | | including multiple exophytic components. No distinct fat plane | | | between the posterior vaginal wall and anterior rectum with an | | | exophytic component of the mass measuring up to 3.1 cm. Multiple | | | small perirectal lymph nodes with surrounding fat stranding. | | | Additional decreased size of a mid-level left periaortic lymph node. | | | These findings are suggestive of lymph node metastasis. No hepatic | | | metastasis identified. Unchanged multiple small pulmonary nodules, | | | favor a benign etiology. No new pulmonary nodules. Percutaneous | | | left pelvic drain and colostomy changes. Dictated and Signed | | | by: Eloy Travis MD Electronically signed: 01/04/2017 10:39 AM | | | | | + + + + + | Procedure Note | + + | Grabiel, Rad Results In - 01/04/2017 10:42 AM PDT TECHNIQUE: After administration of 90 | | mL Omnipaque 350 intravenously and oralcontrast, axial CT imaging was obtained through | | the chest, abdomen, and pelviswith coronal and sagittal reformats. Axial MIP images of | | the lungs were acquiredCLINICAL INFORMATION: restaging after chemotherapyCOMPARISON: CT | | dated 10/05/2016 and 09/17/2016. Pelvic MRI 10/05/2016. CT chest09/17/2016.FINDINGS:BONES: | | No osteoblastic or osteolytic lesion.CHEST:Chest Wall: Right chest port the tip at the | | cavoatrialMediastinum and kassi: No lymphadenopathy.Heart and pericardium: Heart size is | | normal. No pericardial effusion. Vessels: 3 vessel aortic arch with minimal vascular | | calcifications. Large airways: Normal. Pleura: Normal. No pleural effusion or | | pneumothorax. Lungs: Right upper lobe: No nodule or mass lesion.Right middle lobe: | | Unchanged anterior subpleural 4 mm nodule, image 51.Unchanged anterior lateral | | subpleural 3 mm nodule, image 58.Right lower lobe: No nodule or mass lesion.Left upper | | lobe: Unchanged lateral 2 mm nodule, image 33.Left lower lobe: No nodule or mass | | lesion.ABDOMEN/PELVIS:Abdominal wall: Percutaneous left pelvic surgical drain in place. | | Left inferioranterior abdominal wall colostomy with a fat-containing peristomal | | hernia.Liver: Normal.Gallbladder: No calcified gallstones. Normal caliber wall.Pancreas: | | Normal.Spleen: Normal. Adrenals: Normal.Kidneys: Irregular left lower pole cortex, most | | consistent with chronicscarring. Left extrarenal pelvis versus parapelvic cyst. Left | | renal cysts, thelargest is at the lower pole, is exophytic, and measures up to 2.8 | | cm.Ureters: Normal Urinary Bladder: Normal. Reproductive organs: Coarse calcification | | within the uterus, most likelydegenerative fibroid.Bowel: Interval decreased size of the | | previously described large rectosigmoidirregular nodular mass. The mass measures up to | | 6.5 cm in length and 2.1 cm ingreatest width. The greatest interval change is noted | | within the exophyticcomponents of the mass which now measure up to 3.1 x 1.5 x 1.4 cm. | | No distinctfat plane identified between the vagina and anterior wall of the rectum | | withheterogeneous nodular soft tissue mass measuring 2.4 x 3.1 cm, decreased in sizefrom | | prior imaging. Moderate perirectal fat stranding with multiple slightlyprominent small | | lymph nodes measuring up to 7 mm in short axis. Peritoneum: No ascites or free | | intraperitoneal air.Retroperitoneum: Multiple subcentimeter left periaortic lymph | | nodes arenoted, the largest measures 7 mm in short axis, previously measuring 11 | | mm,image 103.Vessels: No abdominal aortic aneurysm. Prominent vascular | | calcifications.IMPRESSION - Significant interval decreased size of the previously | | described largerectosigmoid mass including multiple exophytic components.No distinct fat | | plane between the posterior vaginal wall and anterior rectumwith an exophytic component | | of the mass measuring up to 3.1 cm.Multiple small perirectal lymph nodes with | | surrounding fat stranding. Additionaldecreased size of a mid-level left periaortic lymph | | node. These findings aresuggestive of lymph node metastasis. No hepatic metastasis | | identified.Unchanged multiple small pulmonary nodules, favor a benign etiology. No | | newpulmonary nodules.Percutaneous left pelvic drain and colostomy changes.Dictated and | | Signed by: Eloy Travis MD Electronically signed: 01/04/2017 10:39 AM | |largest is at the lower pole, is exophytic, and measures up to 2.8 cm. | |Ureters: Normal | |Urinary Bladder: Normal. | |Reproductive organs: Coarse calcification within the uterus, most likely | |degenerative fibroid. | | | |Bowel: Interval decreased size of the previously described large rectosigmoid | |irregular nodular mass. The mass measures up to 6.5 cm in length and 2.1 cm in | |greatest width. The greatest interval change is noted within the exophytic | |components of the mass which now measure up to 3.1 x 1.5 x 1.4 cm. No distinct | |fat plane identified between the vagina and anterior wall of the rectum with | |heterogeneous nodular soft tissue mass measuring 2.4 x 3.1 cm, decreased in size | |from prior imaging. Moderate perirectal fat stranding with multiple slightly | |prominent small lymph nodes measuring up to 7 mm in short axis. | |Peritoneum: No ascites or free intraperitoneal air. | |Retroperitoneum: Multiple subcentimeter left periaortic lymph nodes are | |noted, the largest measures 7 mm in short axis, previously measuring 11 mm, | |image 103. | | | |Vessels: No abdominal aortic aneurysm. Prominent vascular calcifications. | | | | | |IMPRESSION - | | | |Significant interval decreased size of the previously described large | |rectosigmoid mass including multiple exophytic components. | | | |No distinct fat plane between the posterior vaginal wall and anterior rectum | |with an exophytic component of the mass measuring up to 3.1 cm. | | | |Multiple small perirectal lymph nodes with surrounding fat stranding. Additional | |decreased size of a mid-level left periaortic lymph node. These findings are | |suggestive of lymph node metastasis. No hepatic metastasis identified. | | | |Unchanged multiple small pulmonary nodules, favor a benign etiology. No new | |pulmonary nodules. | | | |Percutaneous left pelvic drain and colostomy changes. | | | | | |Dictated and Signed by: Eloy Travis MD | | Electronically signed: 01/04/2017 10:39 AM | + + + +---------+ + + | Performing | Address | City/State/Zipcode | Phone Number | | Organization | | | | + +---------+ + + | [facility] | | | | + +---------+ + + documented in this encounter Visit Diagnoses + + | Diagnosis | + + | Malignant neoplasm of rectum (HCC) Malignant neoplasm of rectum | + + documented in this encounter Administered Medications + +--------+ +--------+------+------+ | Medication Order | MAR | Action | Dose | Rate | Site | | | Action | Date | | | | + +--------+ +--------+------+------+ | iohexol (OMNIPAQUE 350) 350 | Given | 01/04/20 | 90 mLs | | | | mg/mL injection 90 mL 90 mL, | | 17 1:13 | | | | | Intravenous, ONCE PRN, Other, for | | PM PDT | | | | | CT contrast study, Starting Mon | | | | | | | 01/03/17 at 1312, For 1 dose, | | | | | | | Radiology | | | | | | + +--------+ +--------+------+------+ +---+---+ | | | +---+---+ documented in this encounter"
--- OUTSIDE RECORDS SUMMARY | ~2019-06-11 | XMS | Encounter Summary ---
Demographics + + + | Address | [address] | | | [place] [address] | + + + | Home Phone [...] Team Providers + +------+ + | Care Surgical Scrub Tech Name | Role | Phone | [...] 11/12/ | Abstract | Dig[facility]ive Health | Ailny Wolff MD | Medical Records | | 2017 | | Center at [facility] [address] | [address] | Review | | | | [address] | [place] H[place], | | | | | Mailcode: [place] | [place] [address] | | | | | for Health and | [phone] | | | | | [facility] [address] | | | | | | [place], [place] | | | | | | [address] | | | | | | [phone] | | | +--------+ + + + [...] | | | | | [place], | | | | | | [place] [address] | | | | | | [phone] | | | | | | | | +--------+---------+ + + + documented as of this encounter Visit Diagnoses Not on filedocumented in this encounter"
--- OUTSIDE RECORDS SUMMARY | ~2019-06-11 | XMS | Encounter Summary ---
Demographics + + + | Address | [address] | | | [place] [address] | + + + | Home Phone [...] Team Providers + +------+ + | Care Cda Teacher Name | Role | Phone | + +------+ + | Silvioct Kristian | PCP | | + +------+ + Encounter Details +--------+------+ + + + | Date | Type | Department | Care Team | Description | +--------+------+ + + + | 08/28/ | Lab | Laboratory at [facility] | | SABINA chung [facility] ([facility]) | | 2019 | | [address] | | | | | | [place], [place] | | | | | | [address] | | | | | | [phone] | | | +--------+------+ + + + [...] | | | | | Suzy Hines [place], | | | | | | [place] [address] | | | | | | [phone] | | | | | | | [...] | + + + + + | [facility] | [address] | [place] [address] | | | SERVICES, CORE | [address] | | | + + + + + documented in this encounter Visit Diagnoses + + | Diagnosis | + + | CA of rectum (HCC) Malignant neoplasm of rectum | + + documented in this encounter"
--- OUTSIDE RECORDS SUMMARY | ~2019-06-11 | XMS | Encounter Summary ---
Demographics + + + | Address | [address] | | | [place] [address] | + + + | Home Phone | | + + + | Preferred Language | Unknown | + + + | Marital Status | | + + + | Scientology Affiliation | Unknown | + + + | Race | Unknown | + + + | Ethnic Group | Unknown | + + + Author + + + | Author | [facility] | | | and [place] | + + + | Organization | [facility] | | | and [place] | + + + | Address | Unknown | + + + | Phone | Unavailable | + + + Support + + + + + | Name | Relationship | Address | Phone | + + + + + | Lamar Phillips | REZA | [place] [address] | | + + + + + Care Team Providers + +------+ + | Care Twister In Name | Role | Phone | + [...] + + | 08/23/ | Hospital | [facility] | [facility], | Rectal cancer (HCC) | | 2018 | Encounter | [facility] | Sirena White MD [address] | | | | ON[facility] CL[address] [address] | [facility] | | | | | [address] [facility] | [place] [address] | | | | | [place] [address] | [phone] | | | | | [phone] | | | +--------+ + + + [...] + + + | Blood Pressure | 146/84 | 08/23/2017 9:57 AM | | | | | PST | | + + + + + | Pulse | 90 | 08/23/2017 9:57 AM | | | | | PST | | + + + + + | Temperature | 36.7 C (98.1 F) | 08/23/2017 9:57 AM | | | | | PST | | + + + + + | Respiratory Rate | 18 | 08/23/2017 9:57 AM | | | | | PST | | + + + + + | Oxygen Saturation | 97% | 08/23/2017 9:57 AM | | | | | PST | | + + + + + | Inhaled Oxygen | - | - | | | Concentration | | | | + + + + + | Weight | 71.8 kg (158 lb 4.6 | 08/23/2017 9:57 AM | | | | oz) | PST | | + + + + + | Height | - | - | | + + + + + | Body Mass Index | 27.17 | 10/18/2016 11:04 AM | | | [...] encounter Progress Notes Sirena Helton MD - 08/23/2017 9:44 AM PSTFormatting of this note might be differe nt from the original. Hematology/Oncology Progress Note [facility] Pt. Name/Age/: Paulette Byrnes 56 y.o. 1960 [facility]. Record Number: [id number] Date of admission: 08/23/2017 The patient's primary care provider is Kristian Anderson DO. Identifying Statement: Paulette Byrnes is a 56 y.o. female from [address] [place] [address] with Locally Advanced Rectal Cancer. The patient chart and medications were reviewed in detail and the patient was seen and exam ined. History of Present Illnesses, their Current Assessments and Plans: Problem List Rectal cancer Overview ACTIVE DIAGNOSIS: Locally Advanced Rectal Cancer, [id number], Stage IIA. 1Jame Barajas presented to the [facility] emergency room on July 20, [...] cm within the rectum. Biopsy specimen number [id number] evaluated by Dr. Felipe Nixon of [facility] was notable for a tubular adenoma without high-grade dysplasia or overt carcinoma. This proced ure also included a full colonoscopy through the ostomy were 2 additional polyps were remove d, a tubular adenoma at 35 cm and a hyperplastic polyp at [address] C/A/P at [facility] in [place], [place] demonstrated no evidence of metastatic disease. 4. On September 22, 2016 Dr. Thacker placed in internal jugular Port-A-Cath without complications. 5. MRI of pelvis performed on October 05, 2016 at [facility]: Rectal mass 7.7 cm x 6.2 cm x 9.6 cm in length located within 3 cm of the anal sphincter and 6.4 cm from the anal verge with radi ographic extension though multiple areas of the bowel wall. 6. CT abdomen/pelvis also at [facility] October 05, 2016; large almost completely circumferential r ectosigmoid mass better delineated on the corresponding MRI with adjacent probable abscess. No distant metastases identified. 7. On October 14, 2016 Paulette was evaluated by Dr. Ailyn Wolff and Dr. Shea Mcneill of the [facility] where her case was presented to their tumor board. Clinical exa phillip is notable for an overt rectal carcinoma invading into the vagina. 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 Concerns raised by the [facility] Tumor Board were that the prior placement [...] as well as mutation analysis." Pathological Specimen #[id number] ([facility]). Tubulovillous adenoma with high grade dysplasia [...] radiation. 14. Multidisciplinary Care Team Conference at [facility] March 10, 2017; "Given borderline resec tability, [...] resection by Dr. Ailyn Wolff at the [facility]: 06/30/17: Exploratory laparoto my. Extensive lysis of adhesions. Excision of left lower quadrant fistula tract. Total mesor ectal excision, intersphincteric abdominoperineal resection, en bloc resection of left ovary and left fallopian tube and posterior vaginal wall. Placement of a 19-Tajik Albert drain th rough the right lower [...] exam on August 12, 2017; Dr. Lea, [facility], [place], [place] ; positive for perianal fistula between anus and vagina. 22. Clinical exam on August 22, [address] Ailyn Wolff at [facility] who could not confirm the prese nce of perianal fistula. Current Assessment & Plan Paulette Byrnes returned to clinic on 08/23/2017 after a comprehensive re-evaluation by Dr. Wolff at [facility] in [place]. Dr. Wolff could not confirm the findings of a perianal fistula suggested on gynecological exam by Dr. Lea, and approved Paulette to move forward with two additional cycles of FOLFOX chemoth erapy. Chief complaint is perineal pain, localized primarily to the coccyx. She is using an averag e of two oxycodone a day. Clinical exam is notable for less pallor following blood transfusion last week. Laboratory exam is notable for improved hematocrit. Assessment; Locally advanced rectal cancer. Plan; Today, Paulette will proceed with Cycle #11 FOLFOX, with pump-off in [place] in two day s. Clinical and laboratory follow up in two weeks and last cycle of FOLFOX, then cross over observation with CT scan in September, and follow-up with Dr. Wolff in October,. Review of Systems: Constitutional: Reports energy level is "a little better since I got the blood infusion". R eports nausea continues, unchanged. Reports appetite is still poor, weight stable. Denies hi gh fevers, shaking chills, anorexia, nausea, vomiting, weight loss, or night sweats. Ear, Nose, Mouth, Throat: Reports sore on lip. Denies dysphagia or tinnitus. Cardiovascular: Denies shortness of breath, dyspnea on exertion, chest pain, palpitations o r orthopnea. Respiratory: Reports intermittent cough from a head cold last week, Denies hemoptysis or sp utum production. Gastrointestinal: Reports "a little bit of abdominal pain". Reports intermittent constipati on and diarrhea, "learning and trying to eat what is okay with ostomy". Denies melena, or br ight red blood per rectum. Genitourinary: Denies hematuria or dysuria. Musculoskeletal: Denies joint pain or tenderness. Neurologic: Reports headaches continues, but have improved. Reports numbness and tingling i n toes continue, unchanged. Denies visual changes. Endocrine: Denies peripheral edema or heat/cold intolerance. Hematologic: Denies spontaneous bruising or bleeding. Integumentary: Denies rash, wounds or other skin concerns. Pain: Denies pain. Note: Here for follow up, labs, and treatment. My chart: Active Scheduled Medications: Current [...] Frequency Provider Last Rate Last Dose fluorouracil 4,350 mg in sodium chloride 0.9% 7 mL CADD PUMP infusion 2,400 mg/m2 ([place] atment Plan Recorded) Intravenous Q46H Sirena Helton MD 4,350 mg at 08/23/17 1344 Allergies: Allergy: Allergies Allergen Reactions Propoxyphene Na [...] Diagnosis Rectal cancer Lichen sclerosus Objectives: Temp: 36.7 C (98.1 F) BP: 146/84 Pulse: 90 Resp: 18 SpO2: 97 % on Min/Max Temp past 24 hours:Temp Av.7 C (98.1 F) Min: 36.7 C (98.1 F) Max: 3 6.7 C (98.1 F) No intake or output data in the 24 hours ending 08/23/17 1856 Wt. Admission: Weight: 71.8 kg (158 lb 4.6 oz) Wt. Current: Weight: 71.8 kg (158 lb 4.6 oz) Wt Readings from Last 3 Encounters: 08/23/17 71.8 kg (158 lb 4.6 oz) 08/15/17 71.6 kg (157 lb 13.6 oz) 05/16/17 72.8 kg (160 lb 7.9 oz) Physical Exam: General: The patient is [...] Baer., Matt Denney., Fransisca Baltazar., Chayito Roque., Thaddeus TLuis Alfredo., Leonila Montes., Danielle, P JameP.: Toxicity And [...] for PAULETTE BYRNES ( ) as of 08/23/2017 18:48 Ref. Range 08/23/2017 09:01 WBC Latest Ref Range: 4.0 - 11.0 K/uL 8.0 WBC morphology Unknown Normal RBC COUNT Latest Ref Range: 3.70 - 5.20 M/uL 4.08 Hgb Latest Ref Range: 11.5 - 16.0 g/dL 10.5 (L) Hct, Final Latest Ref Range: 34.0 - 47.0 % 32.4 (L) MCV Latest Ref Range: 83.0 - 101.0 fL 79.4 (L) MCH Latest Ref Range: 28.0 - 35.0 pg 25.6 (L) MCHC Latest Ref Range: 32.0 - 36.0 g/dL 32.3 RDW-CV Latest Ref Range: <15.0 % 20.1 (H) Platelet Count Latest Ref Range: 140 - 440 K/uL 518 (H) MPV Latest Units: fL 6.4 Absolute Neutrophils Latest Ref Range: 1.80 - 8.50 K/uL 6.60 Absolute Lymphocytes Latest Ref Range: 0.60 - 3.20 K/uL 0.60 Absolute Monocytes Latest Ref Range: 0.00 - 1.00 K/uL 0.60 Absolute Eosinophils Latest Ref Range: 0.00 - 0.40 K/uL 0.20 Absolute Basophils Latest Ref Range: 0.00 - 0.10 K/uL 0.10 % Neutrophils Latest Ref Range: 45.0 - 82.0 % 82.6 (H) % Lymphocytes Latest Ref Range: 20.0 - 45.0 % 7.5 (L) % Monocytes Latest Ref Range: 4.0 - 12.0 % 7.1 % Eosinophils Latest Ref Range: 0.0 - 5.0 % 1.9 % Basophils Latest Ref Range: 0.0 - 1.0 % 0.9 Anisocytosis Latest Ref Range: (none) Slight (A) Hypochromasia Latest Ref Range: (none) Slight (A) Microcytes Latest Ref Range: (none) Slight (A) Rouleaux formation Latest Ref Range: Not Present Present (A) Platelet estimate Latest Ref Range: Adequate Increased (A) NA Latest Ref Range: 136 - 149 mmol/L 140 K Latest Ref Range: 3.5 - 5.1 mmol/L 4.1 Chloride Latest Ref Range: 98 - 109 mmol/L 105 Carbon dioxide Latest Ref Range: 24 - 31 mmol/L 27 ANION GAP Latest Ref Range: 3 - 16 mmol/L 8 GLUCOSE Latest Ref Range: 70 - 109 mg/dL 118 (H) BUN Latest Ref Range: 7 - 18 mg/dL 16 Creatinine Latest Ref Range: 0.60 - 1.30 mg/dL 0.58 (L) BUN/CREA Unknown 27.6 ALBUMIN Latest Ref Range: 3.2 - 5.0 g/dL 2.6 (L) Albumin/Globulin ratio Latest Ref Range: 0.8 - 2.0 0.7 (L) Total protein Latest Ref Range: 6.0 - 7.8 g/dL 6.2 EGFR IF NOT Latest Ref Range: >=60 mL/min/1.73m2 >60 Calcium Latest Ref Range: 8.3 - 10.5 mg/dL 8.9 ALK PHOS Latest Ref Range: 40 - 110 U/L 99 ALT (SGPT) (REF) Latest Ref Range: 6 - 45 U/L 27 AST (SGOT) (REF) Latest Ref Range: 10 - 42 U/L 24 LDH TOTAL Latest Ref Range: 91 - 180 U/L 115 BILIRUBIN TOTAL Latest Ref Range: 0.1 - 1.5 mg/dL 0.2 GLOBULIN Latest Ref Range: 2.1 - 3.8 g/dL 3.6 Pharmacovigilance: Results for PAULETTE BYRNES ( ) as of 08/15/2017 17:38 Ref. Range 08/15/2017 09:26 ABO Unknown O Rh Type Unknown Positive Antibody Screen Unknown Negative Palliative Care: Patient's Medications New Prescriptions No medications on file Modified Medications Modified Medication Previous Medication LORAZEPAM (ATIVAN) 1 MG TABLET LORazepam (ATIVAN) 1 mg tablet Take 1 tablet by mouth every 6 hours as needed for Anxiety (Nausea/vomiting/restlessnes s). Take 1 tablet by mouth every 6 hours as needed for Anxiety (Nausea/vomiting/restlessn ess). Discontinued Medications No medications on file Procedure: Day 1, cycle 11 (22-day cycle) Completed; Released on 08/23/2017; Originally planned for 08/23/2017 Labs Comprehensive Metabolic Panel STAT, ONE TIME, e 08/23/17 at 0902, For 1 occurrence OrderHistory CBC with Differential STAT, ONE TIME, Tue08/23/17 at 09, For 1 occurrence OrderHistory Lactate Dehydrogenase STAT, ONE TIME, Tue08/23/17 at 09, For 1 occurrence OrderHistory PRN Medications ethyl chloride spray (Not Released) Topical, PRN, Pain, Starting when released, Until Discontinued OrderHistory LORazepam (ATIVAN) 2 mg/mL injection 0.5-1 [...] OK to proceed with chemotherapy (Not Released) 08/23/17-- INFORMED CONSENT: The nature and character of the proposed treatment with Cycle #11 FOLFOX and the anticipated results of the proposed treatment with Cycle #11 FOLFOX ;recognized alte rnative forms of treatment, including non-treatment; the risks benefits, and side effects of proposed treatment, alternative treatments and non-treatment were discussed with the patien t who consents to proceed with treatment with Cycle #11 FOLFOX . The treating provider has e xamined the patient and reviewed the diagnostic data, including laboratory data, and deems t hat it is safe and appropriate to proceed with treatment with Cycle #11 FOLFOX .Electronical ly signed by: SIRENA HELTON MD 08/23/2017 10:55. OrderHistory Plans for discharge (Not Released) RESTARTING--ASSESS LEARNING NEEDS+++WILL SHE BE GETTING HER PUMP OFF HERE OR IN [place]? YES. rq. QRN CHECK IN 2 DAYS PUMP OFF+++QFU IN 14 DAYS LAB/PORT AND 3 HR RX. Last one. Rq. +++QRN CHECK IN 16 DAYS PUMP OFF+++ Recommended that she use lorazepam after chemo for nausea control because she is having iss ues of constipation through ostomy causing nausea already. rq OrderHistory Pre-Medications dexamethasone (DECADRON) tablet 4 mg 4 mg, Oral, ONCE, Tue08/23/17 at 1130, For 1 dose OrderHistory palonosetron (ALOXI) injection 0.25 mg 0.25 mg, Intravenous, ONCE, Tue08/23/17 at 1130, For 1 dose Give IV push over 30 seconds. Flush with saline before and after giving. OrderHistory CHEMOTHERAPY oxaliplatin (ELOXATIN) 115 mg in dextrose 5% 250 mL infusion 115 mg (rounded from 115.84 mg = 64 mg/m2 1.81 m2 Treatment plan recorded BSA), Intrave nous, Administer over 2 Hours, ONCE, Tue08/23/17 at 1200, For 1 dose Chemotherapy: Use appropriate handling [...] Intraveno us, Administer over 2 Hours, ONCE, Tue08/23/17 at 1200, For 1 dose Administer via y-site with oxaliplatin OrderHistory fluorouracil 4,350 mg in sodium chloride 0.9% 7 mL CADD PUMP infusion 4,350 mg (rounded from 4,344 mg = 2,400 mg/m2 1.81 m2 Treatment plan recorded BSA), Int ravenous, Administer over 46 Hours, EVERY 46 HOURS, First dose on Tue08/23/17 at 1400 OUTPATIENT Chemotherapy: Use appropriate handling precautions. Protect from light. Start Da y 1, disconnect Day 3. OrderHistory Portions of this chart may have been created with Presdo voice recognition software. Occasi onal wrong-word or [...]
--- OUTSIDE RECORDS SUMMARY | ~2019-06-11 | XMS | Clinical Summary ---
Demographics + + + | Address | [address] | | | [place] [address] | + + + | Home Phone | | + + + | Preferred Language | Unknown | + + + | Marital Status | | + + + | Caodaism Affiliation | Unknown | + + + | Race | Unknown | + + + | Ethnic Group | Unknown | + + + Author + + + | Author | [facility] | | | and [place] | + + + | Organization | [facility] | | | and [place] | + + + | Address | Unknown | + + + | Phone | Unavailable | + + + Support + + + + + | Name | Relationship | Address | Phone | + + + + + | Lamar Phillips | REZA | [place] [address] | | + + + + + Care Team Providers + +------+ + | Care Herbarium Curator Name | Role | Phone | + [...] | | | + + + +---------+------+------+-------+ +---+ + | | Additional | | | informationPatient | | | not taking. Reason: | | | Not taking, Reported | | | on 01/02/2018 3:25 | | | PM | +---+ + + + +---+---+---+---+-------+ | escitalopram | Take 10 mg by mouth | | 0 | | | Activ | | (LEXAPRO) 10 mg | Daily. | | | | | e | | tablet | | | | | | | + + +---+---+---+---+-------+ | FERROUS GLUCONATE | Take 27 mg by mouth | | 0 | | | Activ | | PO | Daily. | | | | | e | + + +---+---+---+---+-------+ | POTASSIUM CHLORIDE | Take 20 mEq by | | 0 | | | Activ | | REENA ER PO | mouth. | | | | | e | + + +---+---+---+---+-------+ Active Problems + + + | Problem | Noted Date | + + + | Lichen sclerosus | 11/01/2016 | + + + + + | Overview: ACTIVE DIAGNOSIS: Lichen Sclerosis of the Vulva.1. | | Presentation with Dyspareunia in February 2010.2. PAP and vulvar | | biopsy March 19, 2010 ([facility]). Pathological specimens; PAP | | #[id number] "negative for intraepithelial lesions or malignancy." | [...] DIAGNOSIS: Locally Advanced Rectal Cancer, | | [id number], Stage IIA. Willie Barajas presented to the [facility] emergency room on July 20, 2016 [...] the rectum. Biopsy specimen number | | [id number] evaluated by Dr. Felipe Nixon of [facility] | | Pathology was notable for a tubular adenoma without high-grade | | dysplasia or overt carcinoma. This procedure also included a | | full colonoscopy through the ostomy were 2 additional polyps were | | removed, a tubular adenoma at 35 cm and a hyperplastic polyp at | | [address] C/A/P at [facility] in [place], [place] | | demonstrated no evidence of metastatic disease.4. On September 22, | | 2016 Dr. Thacker placed in [...] Dr. Shea Mcneill of the | | [facility] where her case was presented | | to their tumor board. Clinical exam is notable for an overt | | rectal carcinoma invading into the vagina. 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 Concerns raised by the [facility] | | [facility] Tumor Board were that the prior [...] as mutation analysis." | | Pathological Specimen #[id number] ([facility] | | Pathology). Tubulovillous adenoma [...] | posterior vaginal wall. Placement of a 19-Greenlandic Albert drain | | through the right [...] | | on August 12, 2017; Dr. Lea, [facility], [place], | | [place]; positive for perianal fistula [...] Dr. Marty Thacker.26. CT | | chest/abdomen/pelvis ([facility], [place]) on September 26, 2017; marked | | reduction of large central rectal/perirectal mass, very small | | residual fluid collection with adjacent fat stranding which may | | represent short residual Velasquez's pouch, residual postoperative | | fluid or residual necrotic tumor.27. MRI of pelvis September 28, 2017 | | ([facility], [place], [place]); Small gas and fluid collection in the | | presacral space, concerning for abscess formation. Postoperative | | changes of low anterior resection, with left lower quadrant end | | colostomy. Left lower quadrant parastomal hernia. Last | | Assessment & Plan: Jenn Parada returned to clinic on | | 01/02/2018 with a service delivery supervisor for follow up of her locally advanced [...] follow up | | with him in [place] every three months.Assessment; Locally | | advanced rectal cancer, status post 10 cycles of neoadjuvant | | FOFLOX, followed by definitive surgery on May 16, 2017, | | followed by two adjuvant cycles of FOLFOX completed on August | 2017.Plan; Jenn will follow up with Dr. Wolff in [place] every | | three months. Currently, follow-up in medical oncology is open. | + + Encounters +--------+ + + + + | Date | Type | Specialty | Care Team | Description | +--------+ + + + + | 04/12/ | Telephone | Neurology | Mychal Andre, | Medication Orders | | 2019 | | | MD | | +--------+ + + + [...] + | Blood Pressure | 112/82 | 01/02/2018 3:26 PM | | | | | PDT | | + + + + + | Pulse | 84 | 01/02/2018 3:26 PM | | | | | PDT | | + + + + + | Temperature | 36.8 C (98.3 F) | 01/02/2018 3:26 PM | | | | | PDT | | + + + + + | Respiratory Rate | 16 | 01/02/2018 3:26 PM | | | | | PDT | | + + + + + | Oxygen Saturation | 96% | 01/02/2018 3:26 PM | | | | | PDT | | + + + + + | Inhaled Oxygen | - | - | | | Concentration | | | | + + + + + | Weight | 83.5 kg (184 lb 1.4 | 01/02/2018 3:07 PM | | | | oz) | PDT | | + + + + + | Height | 162.6 cm (5' 4") | 10/18/2016 11:04 AM | | | | | PDT | | + + + + + | Body Mass Index | 31.6 | 10/18/2016 11:04 AM | | | [...] | | | | Pneumococcal 19-64 | 5 | | | | (1 of 3 - PCV13) | | | | + [...] | [employer] | [employer] | [id number] | | [phone] | | [employer] | | MEDICAID HMO [...] Self | [birth year] | [address] | | | al/Fam | | 1961 | [phone] | | | [place] | | | [address] (Home) | [place] [address] | + +--------+ +--------+ + + Advance Directives + + + + + | Type | Date Recorded | Patient | Explanation | | | | Pilling Machine Operator | | + + + + + | Power of | | | | | Behavioral Health Assistant | | | | + + + + + | Advance | | | | | Directive | | | | + + + + +
--- OUTSIDE RECORDS SUMMARY | ~2019-06-11 | XMS | Encounter Summary ---
Demographics + + + | Address | [address] | | | [place] [address] | + + + | Home Phone | | + + + | Preferred Language | Unknown | + + + | Marital Status | Single | + + + | [employer] Affiliation | NON | + + + [...] Team Providers + +------+ + | Care Documentum Consultant Name | Role | Phone | + +------+ + | Justin Kristian | PCP | | + +------+ + Encounter Details +--------+------+ + + + | Date | Type | Department | Care Team | Description | +--------+------+ + + + | 05/29/ | Lab | Laboratory at [facility] | | SABINA chung [facility] ([facility]) | | 2018 | | [address] | | | | | | [place], [place] | | | | | | [address] | | | | | | [phone] | | | +--------+------+ + + + [...] | | | | | Suzy Hines [place], | | | | | | [place] [address] | | | | | | [phone] | | | | | | | [...] | + + + + + | [facility] | [address] | [place] [address] | | | SERVICES, CORE | [address] | | | + + + + + documented in this encounter Visit Diagnoses + + | Diagnosis | + + | CA of rectum (HCC) Malignant neoplasm of rectum | + + documented in this encounter"
--- OUTSIDE RECORDS SUMMARY | ~2019-06-11 | XMS | Encounter Summary ---
Demographics + + + | Address | [address] | | | [place] [address] | + + + | Home Phone | | + + + | Preferred Language | Unknown | + + + | Marital Status | | + + + | Quaker Affiliation | Unknown | + + + | Race | Unknown | + + + | Ethnic Group | Unknown | + + + Author + + + | Author | [facility] | | | and [place] | + + + | Organization | [facility] | | | and [place] | + + + | Address | Unknown | + + + | Phone | Unavailable | + + + Support + + + + + | Name | Relationship | Address | Phone | + + + + + | Lamar Phillips | REZA | [place] [address] | | + + + + + Care Team Providers + +------+ + | Care Substation Operator Name | Role | Phone | + +------+ + | Kristian Anderson DO | PCP | | + +------+ + Encounter Details +--------+ + + + + | Date | Type | Department | Care Team | Description | +--------+ + + + + | 10/31/ | Hospital | [facility] | Janel, | Rectal cancer (HCC) | | 2018 | Encounter | MED [facility] CHEMO | Mike White MD [address] | (Primary Dx) | | | | INFUSION [address] [place] | | | | | [place], | [place] [address] | | | | | [place] [address] | [phone] | | | | | [phone] | | | +--------+ + + + [...] + +--------+ + + + | CBC W/AUTO | STAT | 10/31/2017 | Rectal cancer | Results for this | | DIFFERENTIAL | | 1:08 PM | (HCC) | procedure are in the | | | | PDT | | results section. | + +--------+ + + + | LACTATE | STAT | 10/31/2017 | Rectal cancer | Results for this | | DEHYDROGENASE | | 1:08 PM | (HCC) | procedure are in the | | | | PDT | | results section. | + +--------+ + + + | CEA | STAT | 10/31/2017 | Rectal cancer | Results for this | | | | 1:08 PM | (HCC) | procedure are in the | | | | PDT | | results section. | + +--------+ + + + | COMPREHENSIVE | STAT | 10/31/2017 | Rectal cancer | Results for this | | METABOLIC PANEL | | 1:08 PM | (HCC) | procedure are in the | | | | PDT | | results section. | + +--------+ + + + documented in this encounter Results Lactate Dehydrogenase (10/31/2017 1:08 PM PDT) + +-------+ + + + | Component | Value | Ref Range | Performed | Pathologist | | | | | At | Signature | + +-------+ + + + | LDH TOTAL | 148 | 91 - 180 U/L | [facility] | | | | | [...] + | [facility] | [address] | [place] | [phone] | | [facility] | | [address] | | | - LABORATORY | | [...] | | | | mmol/L | [facility] | | | | [...] 0.56 (L) | 0.60 - 1.30 | [facility] [...] mL/min/1.73m2 | [facility] | | | MALDIVIAN | RATE,ESTIMATED | | MEDICAL | | | | mL/min/1.44c1Ghdz than | | CENTER - | | [...] 3.2 | 3.2 - 5.0 g/dL | [facility] [...] | an appended report. | | [facility] | | | | These results have [...] + | [facility] | [address] | [place] | [phone] | | [facility] | | [address] | | | - LABORATORY | | | | + + + + + CEA (10/31/2017 1:08 PM PDT) + +-------+ [...] [address] | [place] | [phone] | | [facility] | | [address] | | | - LABORATORY | | [...] + | [facility] | [address] | [place] | [phone] | | [facility] | | [address] | | | - LABORATORY | | [...] ethyl chloride spray Topical, | Given | 11/01/19 | | | | | PRN, Pain, Starting 10/31/17 at | | 18 12:57 | | | | | 1252 | | PM PDT | | | | + +--------+ +------+------+------+ +---+---+ | | | +---+---+ + +-------+ +-------+---+---+ | heparin 100 units/mL flush | Given | 11/01/19 | 500 | | | | injection 500 Units 500 Units (5 | | 18 1:03 | Units | | | | mL), Intracatheter, PRN, Line | | PM PDT | | | | | Care, Starting 10/31/17 at 1245 | | | | | | + +-------+ +-------+---+---+ +---+---+ | | | +---+---+ documented in this encounter"
--- OUTSIDE RECORDS SUMMARY | ~2019-06-11 | XMS | Encounter Summary ---
Demographics + + + | Address | [address] | | | [place] [address] | + + + | Home Phone [...] Team Providers + +------+ + | Care Family Life Educator Name | Role | Phone | [...] | | 2019 | | Center at [facility] [address] | [address] | Review | | | | [address] | Amita Hines [place], | | | | | Mailcode: [place] | [place] [address] | | | | | for Health and | [phone] | | | | | [facility] 2 | | | | | | [place], [place] | | | | | | [address] | | | | | | [phone] | | | +--------+ + + + [...] | | | | | [place]mit[place] H[place], | | | | | | [place] [address] | | | | | | [phone] | | | | | | | | +--------+---------+ + + + documented as of this encounter Visit Diagnoses Not on filedocumented in this encounter"
--- OUTSIDE RECORDS SUMMARY | ~2019-06-11 | XMS | Encounter Summary ---
Demographics + + + | Address | [address] | | | [place] [address] | + + + | Home Phone [...] Providers + +------+ + | Care Auto Vinyl Top Installer Name | Role | Phone | [...] | | 2018 | | Center at [facility] [address] | [address] | Review | | | | [address] | Amita Hines [place], | | | | | Mailcode: [place] | [place] [address] | | | | | for Health and | [phone] | | | | | [facility] 2 | | | | | | [place], [place] | | | | | | [address] | | | | | | [phone] | | | +--------+ + + + [...] | | | | | Amita Hines [place], | | | | | | [place] [address] | | | | | | [phone] | | | | | | | | +--------+---------+ + + + documented as of this encounter Visit Diagnoses Not on filedocumented in this encounter"
--- OUTSIDE RECORDS SUMMARY | ~2019-06-11 | XMS | Encounter Summary ---
Demographics + + + | Address | [address] | | | [place] [address] | + + + | Home Phone | | + + + | Preferred Language | Unknown | + + + | Marital Status | Single | + + + | Presybeterian Affiliation | NON | + + + | Race | White | + + + | Ethnic Group | Not or | + + + Author + + + | Author | [facility] | + + + | Organization | [facility] | + + + | Address | Unknown | + + + | Phone | Unavailable | + + + Support + + +---------+ + | Name | Relationship | Address | Phone | + + +---------+ + | Darrius Quintana | ECON | Unknown | | + + +---------+ + Care Team Providers + +------+ + | Care Air Pollution Control Engineer Name | Role | Phone | [...] | | | Oncology | Rectal | [address] | Whit | | | | | cancer (HCC) | [address] [address] | MD Wade | | | | | Procedures | [place] Hines | [address] | | | | | CONSULT TO | [place] | Hong Levi | | | | | RADIATION | [address] | Donny [place], | | | | | ONCOLOGY | Phone: | [place] | | | | | | [phone] | [address] | | | | | | Fax: | Phone: | | | | | | [phone] | [phone] | | | | | | | Fax: | | | | | | | [phone] | +--------+--------+ + + + + Encounter Details +--------+ + + + + | Date | Type | Department | Care Team | Description | +--------+ + + + + | 06/02/ | MyChart | Digestive Health | Ailyn Wolff MD | Info about my cancer | | 2017 | Encounter | [place] at [facility] [address] | [address] | | | | | [address] | Amita Hines [place], | | | | | Mailcode: [place] | [place] [address] | | | | | for Health and | [phone] | | | | | [facility], [facility] 2 | | | | | | [place], [place] | | | | | | [address] | | | | | | [phone] | | | +--------+ + + + [...] | | | | | Amita Hines [facility] | | | | | | [place] [address] | | | | | | [phone] | | | | | | | | +--------+---------+ + + + documented as of this encounter Visit Diagnoses + + | Diagnosis | + + | Rectal cancer (HCC) - Primary Malignant neoplasm of rectum | + + documented in this encounter"
--- OUTSIDE RECORDS SUMMARY | ~2019-06-11 | XMS | Encounter Summary ---
Demographics + + + | Address | [address] | | | [place] [address] | + + + | Home Phone [...] Team Providers + +------+ + | Care Durable Medical Equipment Technician Name | Role | Phone | [...] Record | | 2017 | | at [facility] [address] | | Review (GEN Records | | | | [place] Mailcode: | | Checklist ) | | | | [address] | | | | | | Health and [facility], | | | | | | [facility] | | | | | | floor [place], [place] | | | | | | [address] | | | | | | [phone] | | | +--------+ + + + [...] External Referral Last EKG with original tracings [facility] [place] Yes- Abstract Last Echo with images and report no Last Stress Test with images and report no Last Cardiac Catheterization - images and report no Last Holter or Event monitor - report no Labs (BMP, Lipids, TSH, Hemoglobin A1C in last 6 months) [facility] 09/29 Yes- A bstract [facility] Last PPM/ICD Interrogation report no Last [...] | | | | | Amita Hines [place], | | | | | | [place] [address] | | | | | | [phone] | | | | | | | | +--------+---------+ + + + documented as of this encounter Visit Diagnoses Not on filedocumented in this encounter"
--- OUTSIDE RECORDS SUMMARY | ~2019-06-11 | XMS | Encounter Summary ---
Demographics + + + | Address | [address] | | | [place] [address] | + + + | Home Phone [...] Team Providers + +------+ + | Care Finish Sander Name | Role | Phone | [...] 2017 | | Center at [facility] [address] | [address] | Review | | | | [address] | Amita Hines [place], | | | | | Mailcode: [place] | [place] [address] | | | | | for Health and | [phone] | | | | | [facility] 2 | | | | | | [place], [place] | | | | | | [address] | | | | | | [phone] | | | +--------+ + + + [...] | | | | | [place]mit[place] H[place], | | | | | | [place] [address] | | | | | | [phone] | | | | | | | | +--------+---------+ + + + documented as of this encounter Visit Diagnoses Not on filedocumented in this encounter"
--- OUTSIDE RECORDS SUMMARY | ~2019-06-11 | XMS | Encounter Summary ---
Demographics + + + | Address | [address] | | | [place] [address] | + + + | Home Phone [...] Team Providers + +------+ + | Care Permit Review Assistant Name | Role | Phone | [...] | | 2018 | | Center at [facility] [address] | [address] | Review | | | | [address] | Amita Hines [place], | | | | | Mailcode: [place] | [place] [address] | | | | | for Health and | [phone] | | | | | [facility] 2 | | | | | | [place], [place] | | | | | | [address] | | | | | | [phone] | | | +--------+ + + + [...] | | | | | [place]mit[place] H[place], | | | | | | [place] [address] | | | | | | [phone] | | | | | | | | +--------+---------+ + + + documented as of this encounter Visit Diagnoses Not on filedocumented in this encounter"
--- OUTSIDE RECORDS SUMMARY | ~2019-06-11 | XMS | Encounter Summary ---
Demographics + + + | Address | [address] | | | [place] [address] | + + + | Home Phone [...] Providers + +------+ + | Care Hvac Service Tech Name | Role | Phone | [...] | | | | CT ABDOMEN | [place], [place] | Mailcode: | | | | | AND PELVIS | [address] | [address] [facility] | | | | | W IV | Phone: | Hospital | | | | | CONTRAST IN | [phone] | [place], [place] | | | | | CT | Fax: | [address] | | | | | ABDOMEN&PELV | [phone] | Phone: | | | | | IS | | [phone] | | | | | W/CONTRAST | | Fax: | | | | | | | [phone] | +--------+--------+ + + + + Diagnostic [...] | | | | MR RECTAL | [place], [place] | Mailcode: | | | | | W/WO IN | [address] | [address] | | | | | MRI, PELVIS, | Phone: | [place] | | | | | COMBO | [phone] | Research | | | | | | Fax: | Center | | | | | | [phone] | [facility] [place] | | | | | | | [address] | | | | | | | Phone: | | | | | | | [phone] | | | | | | | Fax: | | | | | | | [phone] | +--------+--------+ + + + + Encounter Details +--------+ + + + + | Date | Type | Department | Care Team | Description | +--------+ + + + + | 09/22/ | Telecommunications Line Mechanic | Digestive Health | Ailyn Wolff MD | Rectal cancer (HCC) | | 2017 | | [place] at [facility] [address] | [address] | (Primary Dx) | | | | [address] | Amit[place] Hines [place], | | | | | Mailcode: [place] | [place] [address] | | | | | for [facility] and | [phone] | | | | | [facility], [facility] 2 | | | | | | [place], [place] | | | | | | [address] | | | | | | [phone] | | | +--------+ + + + [...] | | | | [place]mita Hines [place], | | | | | | [place] [address] | | | | | | [phone] | | | | | | | [...]
--- OUTSIDE RECORDS SUMMARY | ~2019-06-11 | XMS | Encounter Summary ---
Demographics + + + | Address | [address] | | | [place] [address] | + + + | Home Phone [...] Team Providers + +------+ + | Care Cofferdam Construction Supervisor Name | Role | Phone | [...] Lab Results | | 2018 | | [place] [address] [address] | [address] | | | | | [address] | [facility], | | | | | Mailcode: [place] | [place] [address] | | | | | for Health and | [phone] | | | | | [facility] 2 | | | | | | [place], [place] | | | | | | [address] | | | | | | [phone] | | | +--------+ + + + [...] | | | | | [place]mita Hines [place], | | | | | | [place] [address] | | | | | | [phone] | | | | | | | | +--------+---------+ + + + documented as of this encounter Visit Diagnoses Not on filedocumented in this encounter"
--- OUTSIDE RECORDS SUMMARY | ~2019-06-11 | XMS | Encounter Summary ---
Demographics + + + | Address | [address] | | | [place] [address] | + + + | Home Phone [...] Providers + +------+ + | Care Sales And Marketing Agent Name | Role | Phone | [...] | Prescription | | 2016 | | [place] [address] [address] | [address] | | | | | [address] | Amita Hines [place], | | | | | Mailcode: [place] | [place] [address] | | | | | for Health and | [phone] | | | | | [facility] 2 | | | | | | [place], [place] | | | | | | [address] | | | | | | [phone] | | | +--------+ + + + [...] | | 2019 | Visit | | [address] | | | | | | [place]mita H[place], | | | | | | [place] [address] | | | | | | [phone] | | | | | | | | +--------+---------+ + + + documented as of this encounter Visit Diagnoses Not on filedocumented in this encounter"
--- OUTSIDE RECORDS SUMMARY | ~2019-06-11 | XMS | Encounter Summary ---
Demographics + + + | Address | [address] | | | [place] [address] | + + + | Home Phone | | + + + | Preferred Language | Unknown | + + + | Marital Status | Single | + + + | Sabianism Affiliation | NON | + + + [...] Team Providers + +------+ + | Care Miller Supervisor Name | Role | Phone | [...] | | | | CT CHEST, | [place], [place] | Mailcode: | | | | | ABDOMEN AND | [address] | [address] [facility] | | | | | PELVIS W IV | Phone: | Hospital | | | | | CONTRAST [place] | [phone] | [place], [place] | | | | | CAT SCAN OF | Fax: | [address] | | | | | CHEST | [phone] | Phone: | | | | | CONTRAST [place] | | [phone] | | | | | CT | | Fax: | | | | | ABDOMEN&PELV | | [phone] | | | | | IS | | | | | | | W/CONTRAST | | | +--------+--------+ + + + + Encounter Details +--------+ + + + + | Date | Type | Department | Care Team | Description | +--------+ + + + + | 04/19/ | Client Support Manager | Digestive Health | Ailyn Wolff MD | Colorectal cancer | | 2017 | | [place] at [facility] [address] | [address] | (HCC) (Primary Dx) | | | | [address] | Amita Hines [place], | | | | | Mailcode: [place] | [place] [address] | | | | | for Health and | [phone] | | | | | [facility], Building 2 | | | | | | [place], [place] | | | | | | [address] | | | | | | [phone] | | | +--------+ + + + [...] | | | | | | [place] [address] | | | | | | [phone] | | | | | | | [...]
--- OUTSIDE RECORDS SUMMARY | ~2019-06-11 | XMS | Encounter Summary ---
Demographics + + + | Address | [address] | | | [place] [address] | + + + | Home Phone [...] Providers + +------+ + | Care Field Care Manager Name | Role | Phone | [...] Rd | | | | | | [place], [place] | | | | | | [address] | | | +--------+ + + + [...] | | | | | Amita H[place], | | | | | | [place] [address] | | | | | | [phone] | | | | | | | | +--------+---------+ + + + documented as of this encounter Visit Diagnoses Not on filedocumented in this encounter"
--- OUTSIDE RECORDS SUMMARY | ~2019-06-11 | XMS | Encounter Summary ---
Demographics + + + | Address | [address] | | | [place] [address] | + + + | Home Phone [...] Team Providers + +------+ + | Care Carpet Floor Layer Apprentice Name | Role | Phone | + +------+ + | Justin Kristian | PCP | | + +------+ + Encounter Details +--------+------+ + + + | Date | Type | Department | Care Team | Description | +--------+------+ + + + | 05/29/ | Lab | Laboratory at [facility] | | [facility] ([facility]) | | 2018 | | [address] | | | | | | [place], [place] | | | | | | [address] | | | | | | [phone] | | | +--------+------+ + + + [...] | | | | | Suzy Hines [place], | | | | | | [place] [address] | | | | | | [phone] | | | | | | | [...] | + + + + + | [facility] | [address] | [place] [address] | | | SERVICES, CORE | [address] | | | + + + + + documented in this encounter Visit Diagnoses + + | Diagnosis | + + | CA of rectum (HCC) Malignant neoplasm of rectum | + + documented in this encounter"
--- OUTSIDE RECORDS SUMMARY | ~2019-06-11 | XMS | Encounter Summary ---
Demographics + + + | Address | [address] | | | [place] [address] | + + + | Home Phone [...] Team Providers + +------+ + | Care Ux Design Lead Name | Role | Phone | [...] | | | | CONSULT TO | [place], [place] | Mailcode: | | | | | GI | [address] | [id number] | | | | | PROCEDURE | Phone: | [place] | | | | | UNIT: | [phone] | [address] | | | | | COLONOSCOPY | Fax: | [place], | | | | | | [phone] | [place] [address] | | | | | | | Phone: | | | | | | | [phone] | | | | | | | Fax: | | | | | | | [phone] | + +--------+ + + + + [...] | | | | CT CHEST, | [place], [place] | | | | | | ABDOMEN AND | [address] | | | | | | PELVIS W IV | Phone: | | | | | | CONTRAST | [phone] | | | | | | | Fax: | | | | | | | [phone] | | +--------+--------+ + + + + [...] | | | | Epic Dept | [address] | | | | | | | [address] | | | | | | | Amita Hines | | | | | | | [place], [place] | | | | | | | [address] | | | | | | | Phone: | | | | | | | [phone] | | | | | | | Fax: | | | | | | | [phone] | +--------+--------+ + + + + Encounter Details +--------+---------+ + + + | Date | Type | Department | Care Team | Description | +--------+---------+ + + + | 05/29/ | Office | Digestive Health | Ailyn Wolff MD | CA of rectum (HCC) | | 2018 | Visit | [place] at [facility] [address] | [address] | (Primary Dx) | | | | [address] | Amita Hines [place], | | | | | Mailcode: [place] | [place] [address] | | | | | for Health and | [phone] | | | | | [facility], [facility] 2 | | | | | | [place], [place] | | | | | | [address] | | | | | | [phone] | | | +--------+---------+ + + + [...] in 06/[address] at [facility] in [place] in June,. I spoke to Marty Thacker. He is willing to do scope in June,. She needs to call for an appointment. documented in this encounter Progress Notes Hailey Cohn MA - 05/29/2018 9:40 AM PSTExamination chaperoned by HAILEY COHN MA.Stephanie ctronically signed by Hailey Cohn MA at 06/20/2018 6:24 AM Ailyn Sheehan MD - 05/29/2018 9:40 AM PSTCOLON AND RECTAL SURGERY Attending Clinic Note Established Patient Assessment: 57 y.o. female with htn, elevated lipids, heartburn, nephrolithiasis, and lichen sclerosus endoscopically obstructing mriT4 N0 M0 rectal mass (6 cm from verge) invading vagina rectal urgency and a lot of rectal bleeding on 07/19/16 went to the [facility] ED CT abdomen/pelvis with IV contrast [...] cm from anal verge presented at the [facility] Multidisciplinary GI Oncology Conference on [...] to Mendoza pouch staple line presented at [facility] Multidisciplinary GI Oncology Conference on [...] MRI ([facility], 05/17/17) close to pelvic sidewall [facility] Multidisciplinary GI Oncology Conference (06/02/17) Recommendations with [...] resection with primary anastomosis, placement of a 19-Northern Irish Albert drain through the right lower quadrant [...] in 06/[address] at [facility] in [place] in June,. I spoke to Marty Kirstie. [...] resection with primary anastomosis, placement of a 19-Northern Irish Albert drain through the right lower quadrant [...] Return/Re-evaluation patient, I spent 20 minutes of lvbr-zo-wzfh time, of which m ore than half [...] | | 2018 | Visit | | [address] | | | | | | Amita H[place], | | | | | | [place] [address] | | | | | | [phone] | | | | | | | [...] [facility] | [address] | [place] [address] | | | SERVICES, CORE | [address] | | | + + + + + documented in this encounter Visit Diagnoses + + | Diagnosis | + + | 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
--- OUTSIDE RECORDS SUMMARY | ~2019-06-11 | XMS | Encounter Summary ---
Demographics + + + | Address | [address] | | | [place] [address] | + + + | Home Phone [...] Team Providers + +------+ + | Care Administrative Liaison Name | Role | Phone | [...] | | 2018 | | Center at [facility] [address] | [address] | Review | | | | [address] | Amita Hines [place], | | | | | Mailcode: [place] | [place] [address] | | | | | for Health and | [phone] | | | | | [facility] 2 | | | | | | [place], [place] | | | | | | [address] | | | | | | [phone] | | | +--------+ + + + [...] | | | | | Amita H[place], | | | | | | [place] [address] | | | | | | [phone] | | | | | | | | +--------+---------+ + + + documented as of this encounter Visit Diagnoses Not on filedocumented in this encounter"
--- OUTSIDE RECORDS SUMMARY | ~2019-06-11 | XMS | Encounter Summary ---
Demographics + + + | Address | [address] | | | [place] [address] | + + + | Home Phone | | + + + | Preferred Language | Unknown | + + + | Marital Status | | + + + | Yazidism Affiliation | Unknown | + + + | Race | Unknown | + + + | Ethnic Group | Unknown | + + + Author + + + | Author | [facility] | | | and [place] | + + + | Organization | [facility] | | | and [place] | + + + | Address | Unknown | + + + | Phone | Unavailable | + + + Support + + + + + | Name | Relationship | Address | Phone | + + + + + | Lamar Phillips | REZA | [place] [address] | | + + + + + Care Team Providers + +------+ + | Care Washhouse Hand Name | Role | Phone | + +------+ + | Kristian Anderson DO | PCP | | + +------+ + Encounter Details +--------+ + + + + | Date | Type | Department | Care Team | Description | +--------+ + + + + | 10/01/ | Orders Only | [facility] | [place], | Rectal cancer (HCC) | | 2017 | | [facility] | Mike White MD [address] | (Primary Dx) | | | | [facility] [address] [place] | | | | | [address] [place] | [place] [address] | | | | | [place] [address] | [phone] | | | | | [phone] | | | +--------+ + + + [...]
--- OUTSIDE RECORDS SUMMARY | ~2019-06-11 | XMS | Encounter Summary ---
Demographics + + + | Address | [address] | | | [place] [address] | + + + | Home Phone [...] Team Providers + +------+ + | Care Glove Cleaner Name | Role | Phone | + +------+ + | Kristian Anderson DO | PCP | | + +------+ + Encounter Details +--------+ + + + + | Date | Type | Department | Care Team | Description | +--------+ + + + + | 02/08/ | MyChart | Dig[facility]ive [facility] | Ailyn Wolff MD | RE: questions | | 2018 | Encounter | Center at [facility] [address] | [address] | | | | | [address] | [place], | | | | | Mailcode: [place] | [place] [address] | | | | | for Health and | [phone] | | | | | [facility], [facility] [address] | | | | | | [place], [place] | | | | | | [address] | | | | | | [phone] | | | +--------+ + + + [...] | | | | | [place], | | | | | | [place] [address] | | | | | | [phone] | | | | | | | | +--------+---------+ + + + documented as of this encounter Visit Diagnoses Not on filedocumented in this encounter"
--- OUTSIDE RECORDS SUMMARY | ~2019-06-11 | XMS | Clinical Summary ---
Demographics + + + | Address | [address] | | | [place] [address] | + + + | Home Phone | | + + + | Preferred Language | Unknown | + + + | Marital Status | | + + + | Hoahaoism Affiliation | Unknown | + + + | Race | Unknown | + + + | Ethnic Group | Unknown | + + + Author + + + | Author | [facility] [employer] (Historical as of | | | 03-10-19) | + + + | Organization | [facility] [employer] (Historical as of | | | 03-10-19) [...] Team Providers + +------+ + | Care Metalworker Name | Role | Phone | + [...] +------+-------+ + | MEDICAID | MEDICA | [id number] | | | [address] | | | [place] | | | | [place] | | | [place] | | | | [address] | + +--------+ +------+-------+ + + +--------+ [...] [birth year] | Home: | [address] | | | al/Matthew | | 1961 | [phone] | [address] [place], | | | [place] | | | [phone] | [place] [address] | + +--------+ +--------+ + +"
--- OUTSIDE RECORDS SUMMARY | ~2019-06-11 | XMS | Encounter Summary ---
Demographics + + + | Address | [address] | | | [place] [address] | + + + | Home Phone [...] Team Providers + +------+ + | Care Canoe Inspector Name | Role | Phone | [...] | 2018 | Encounter | Center at [facility] [address] | [address] | | | | | [address] | [place] H[place], | | | | | Mailcode: [place] | [place] [address] | | | | | for Health and | [phone] | | | | | [facility], [facility] 2 | | | | | | [place], [place] | | | | | | [address] | | | | | | [phone] | | | +--------+ + + + [...] | | | | | [place], | | | | | | [place] [address] | | | | | | [phone] | | | | | | | | +--------+---------+ + + + documented as of this encounter Visit Diagnoses Not on filedocumented in this encounter"
--- OUTSIDE RECORDS SUMMARY | ~2019-06-11 | XMS | Encounter Summary ---
Demographics + + + | Address | [address] | | | [place] [address] | + + + | Home Phone [...] + | Organization | [facility] | | | and [place] | + + + | Address | Unknown | + + + | Phone | Unavailable | + + + Support + + + + + | Name | Relationship | Address | Phone | + + + + + | Lamar Phillips | REZA | [place] [address] | | + + + + + Care Team Providers + +------+ + | Care Gift Shop Assistant Name | Role | Phone | [...] + + | 02/07/ | Hospital | [facility] | [facility], | Rectal cancer (HCC) | | 2017 | Encounter | [facility] | Sirena White MD [address] | | | | [address] | [facility] | | | | | [address] | [place] [address] | | | | | [place] [address] | [phone] | | | | | [phone] | | | +--------+ + + + [...] + + + | Blood Pressure | 114/77 | 02/07/2017 9:57 AM | | | | | PDT | | + + + + + | Pulse | 90 | 02/07/2017 9:57 AM | | | | | PDT | | + + + + + | Temperature | 36.5 C (97.7 F) | 02/07/2017 9:57 AM | | | | | PDT | | + + + + + | Respiratory Rate | 16 | 02/07/2017 9:57 AM | | | | | PDT | | + + + + + | Oxygen Saturation | 98% | 02/07/2017 9:57 AM | | | | | PDT | | + + + + + | Inhaled Oxygen | - | - | | | Concentration | | | | + + + + + | Weight | 68.8 kg (151 lb 9.6 | 02/07/2017 9:57 AM | | | | oz) | PDT | | + + + + + | Height | - | - | | + + + + + | Body Mass Index | 26.02 | 10/18/2016 11:04 AM | | | [...] encounter Progress Notes Sirena Helton MD - 02/07/2017 9:40 AM PDTFormatting of this note might be differe nt from the original. Hematology/Oncology Progress Note [facility] Pt. Name/Age/: Paulette Byrnes 56 y.o. 1960 Med. Record Number: [id number] Date of admission: 02/07/2017 The patient's primary care provider is Kristian Anderson DO. Identifying Statement: Paulette Byrnes is a 56 y.o. female from [address] [place] [address] with Locally Advanced Rectal Cancer. The patient chart and medications were reviewed in detail and the patient was seen and exam ined. History of Present Illnesses, their Current Assessments and Plans: Problem List Rectal cancer Overview ACTIVE DIAGNOSIS: Locally Advanced Rectal Cancer. 1. Paulette presented to the [facility] emergency room on July 20, 2016 [...] cm within the rectum. Biopsy specimen number [id number] evaluated by Dr. Felipe Nixon of [facility] was notable for a tubular adenoma without high-grade dysplasia or overt carcinoma. This proced ure also included a full colonoscopy through the ostomy were 2 additional polyps were remove d, a tubular adenoma at 35 cm and a hyperplastic polyp at [address] C/A/P at [facility] in [place], [place] demonstrated no evidence of metastatic disease. 4. On September 22, 2016 Dr. Thacker placed in internal jugular Port-A-Cath without complications. 5. MRI of pelvis performed on October 05, 2016 at [facility]: Rectal mass 7.7 cm x 6.2 cm x 9.6 cm in length located within 3 cm of the anal sphincter and 6.4 cm from the anal verge with radi ographic extension though multiple areas of the bowel wall. 6. CT abdomen/pelvis also at [facility] October 05, 2016; large almost completely circumferential r ectosigmoid mass better delineated on the corresponding MRI with adjacent probable abscess. No distant metastases identified. 7. On October 14, 2016 Paulette was evaluated by Dr. Ailyn Wolff and Dr. Shea Mcneill of the [facility] where her case was presented to their tumor board. Clinical exa phillip is notable for an overt rectal carcinoma invading into the vagina. 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 Concerns raised by the [facility] Tumor Board were that the prior [...] as well as mutation analysis." Pathological Specimen #[id number] ([facility] Tubulovillous adenoma with high grade dysplasia and [...] Plan Paulette Byrnes returned to clinic on 02/07/2017 with no one for follow-up of her recta l cancer. Interval history is notable for Paulette has had a one week treatment break from chemotherapy. Review of systems is notable for decreased fluid output from her ZAIN drain. Dysuria persists . Episodic abdominal pain has subsided. Clinic exam is notable for the absence of discharge from around her ZAIN drain.. Laboratory exam is notable for the absence of myelosuppression. Assessment;Locally advanced rectal cancer. Plan; resume CIVI 5 FU at 180 mg/m/day. Clinical and laboratory follow up in one week. De pending upon tolerance, Paulette will continue with 5FU through the end of her radiation therapy treatment plan. She is schedule for a comprehensive re-evaluation with Dr. Ailyn Wolff at [facility] i ncluding imaging on March 02, 2017. Review of Systems: Constitutional: Reports energy level is slightly better. Reports nausea/vomiting has decrea sed greatly since not having pump this last week. Reports appetite is good, weight gain of 1 .5 lbs. Denies high fevers, shaking chills, anorexia, weight loss, or night sweats. Ear, Nose, Mouth, Throat: Reports slight sore throat this morning, sleeps with windows open . Reports sores in mouth are improved. Denies odynophagia or tinnitus. Cardiovascular: Reports shortness of breath this morning, felt congested since sleeping wit h window open. Denies dyspnea on exertion, chest pain, palpitations or orthopnea. Respiratory: Denies cough, hemoptysis, or sputum production. Gastrointestinal: Reports abdominal pain when needing to go to bathroom her hernia really h urts. Reports depending on what she eats she goes back and forth from diarrhea to constipati on. Ostomy is draining well. Reports she has increased discharge from rectum which increases her back pain. Denies melena or bright red blood per rectum. Genitourinary: Reports burning with urination is intermittent, none this morning, lots yest erday. Denies hematuria. Musculoskeletal: Denies joint pain or tenderness. Neurologic: Reports headaches usually in mornings and then goes away quickly. Denies visual changes or numbness/tingling of the extremities. Endocrine: [...] tab daily for ne xt 13 days. (Patient taking differently: Take two tablets on day 1, then 1 tab daily for nex t 13 days. Finishes 02/08/17.) 14 tablet 0 HYDROcodone-acetaminophen (NORCO) 5-325 mg [...] Frequency Provider Last Rate Last Dose fluorouracil 2,225 mg in sodium chloride 0.9% 39.5 mL CADD PUMP chemo infusion 180 mg/ m2/day (Treatment Plan Recorded) Intravenous Q7 Days Sirena Helton MD 2,225 mg at 02/07/17 1050 heparin 100 units/mL flush injection 500 Units 5 mL Intercatheter PRN Sirena coley MD Allergies: Allergy: Allergies Allergen Reactions Propoxyphene Na [...] Diagnosis Rectal cancer Lichen sclerosus Objectives: Temp: 36.5 C (97.7 F) BP: 114/77 Pulse: 90 Resp: 16 SpO2: 98 % on Min/Max Temp past 24 hours:Temp Av.5 C (97.7 F) Min: 36.5 C (97.7 F) Max: 3 6.5 C (97.7 F) No intake or output data in the 24 hours ending 02/07/17 2306 Wt. Admission: Weight: 68.8 kg (151 lb 9.6 oz) Wt. Current: Weight: 68.8 kg (151 lb 9.6 oz) Wt Readings from Last 3 Encounters: 02/07/17 68.8 kg (151 lb 9.6 oz) 01/31/17 68.2 kg (150 lb 6.4 oz) 01/24/17 69.2 kg (152 lb 8 oz) Physical Exam: General: The [...] no erythema and no discharge. There is 5 cc of purulent, opaque f luid in the bulb. Extremities: Nontender, no erythema, [...] Baer., Matt Denney., Fransisca Baltazar., Chayito Roque., Thaddeus, Caitie., Leonila Montes., Danielle, P .P.: Toxicity And [...] for PAULETTE BYRNES ( ) as of 02/07/2017 22:53 Ref. Range 02/07/2017 09:20 WBC Latest Ref Range: 4.0 - 11.0 K/uL 9.9 RBC: Latest Ref Range: 3.70 - 5.20 M/uL 3.93 Hgb Latest Ref Range: 11.5 - 16.0 g/dL 11.3 (L) Hct, Final Latest Ref Range: 34.0 - 47.0 % 34.3 MCV Latest Ref Range: 83.0 - 101.0 fL 87.3 MCH Latest Ref Range: 28.0 - 35.0 pg 28.7 MCHC Latest Ref Range: 32.0 - 36.0 g/dL 32.9 RDW-CV Latest Ref Range: <15.0 % 22.2 (H) Platelet Count Latest Ref Range: 140 - 440 K/uL 370 MPV Latest Units: fL 6.3 Absolute Neutrophils Latest Ref Range: 1.80 - 8.50 K/uL 8.40 Absolute Lymphocytes Latest Ref Range: 0.60 - 3.20 K/uL 0.40 (L) Absolute Monocytes Latest Ref Range: 0.00 - 1.00 K/uL 0.50 Absolute Eosinophils Latest Ref Range: 0.00 - 0.40 K/uL 0.50 (H) Absolute Basophils Latest Ref Range: 0.00 - 0.10 K/uL 0.00 % Neutrophils Latest Ref Range: 45.0 - 82.0 % 85.1 (H) % Lymphocytes Latest Ref Range: 20.0 - 45.0 % 4.4 (L) % Monocytes Latest Ref Range: 4.0 - 12.0 % 5.4 % Eosinophils Latest Ref Range: 0.0 - 5.0 % 4.8 % Basophils Latest Ref Range: 0.0 - 1.0 % 0.3 NA Latest Ref Range: 136 - 149 mmol/L 137 K Latest Ref Range: 3.5 - 5.1 mmol/L 3.9 Chloride Latest Ref Range: 98 - 109 mmol/L 106 Carbon dioxide Latest Ref Range: 24 - 31 mmol/L 24 ANION GAP Latest Ref Range: 3 - 16 mmol/L 7 GLUCOSE Latest Ref Range: 70 - 109 mg/dL 147 (H) BUN Latest Ref Range: 7 - 18 mg/dL 11 Creatinine Latest Ref Range: 0.60 - 1.30 mg/dL 0.60 BUN/CREA Unknown 18.3 ALBUMIN Latest Ref Range: 3.2 - 5.0 g/dL 3.1 (L) Albumin/Globulin ratio Latest Ref Range: 0.8 - 2.0 1.0 Total protein Latest Ref Range: 6.0 - 7.8 g/dL 6.2 EGFR IF NOT Latest Ref Range: >=60 mL/min/1.73m2 >60 Calcium Latest Ref Range: 8.3 - 10.5 mg/dL 8.7 ALK PHOS Latest Ref Range: 40 - 110 U/L 114 (H) ALT (SGPT) (REF) Latest Ref Range: 6 - 45 U/L 28 AST (SGOT) (REF) Latest Ref Range: 10 - 42 U/L 30 LDH TOTAL Latest Ref Range: 91 - 180 U/L 153 BILIRUBIN TOTAL Latest Ref Range: 0.1 - 1.5 mg/dL 0.4 GLOBULIN Latest Ref Range: 2.1 - 3.8 g/dL 3.1 Pharmacovigilance: Palliative Care: Patient's Medications New Prescriptions No medications on file Modified Medications No medications on file Discontinued Medications No medications on file Procedure: Day 1, Week 5 (7-day cycle) Completed; Released on 02/07/2017; Originally planned for 02/07/2017 Labs Lactate Dehydrogenase STAT, ONE TIME, Tue02/07/17 at 0920, For 1 occurrence OrderHistory Comprehensive Metabolic Panel STAT, ONE TIME, Tue02/07/17 at 0920, For 1 occurrence OrderHistory CBC with Differential STAT, ONE TIME, Tue02/07/17 at 0920, For 1 occurrence OrderHistory Nursing Orders OK to proceed with chemotherapy (Not Released) 02/07/17 - INFORMED CONSENT: The nature and character of the proposed treatment with CIVI 5FU and the anticipated results of the proposed treatment with CIVI 5FU;recognized alternative forms of treatment, including non-treatment; the risks benefits, and side effects of proposed treatme nt, alternative treatments and non-treatment were discussed with the patient who consents to proceed with treatment with CIVI 5FU. The treating provider has examined the patient and re viewed the diagnostic data, including laboratory data, and deems that it is safe and appropr iate to proceed with treatment with CIVI 5FU.SIRENA HELTON MD. OrderHistory Plans for discharge (Not Released) PT IS CONCURRENT--PLEASE NOTIFY RADS IF WE HOLD TREATMENT MUST BE EVERY 7 DAYS- ON Tuesday ONLY AND ONLY AT 1:40 IF POSSIBLE DUE TO RADIATION AT 1.0 0 LAST ONE? Done with Radiation on the 14 of february OrderHistory Continuous infusion pump initiation (Not Released) Routine, ONE TIME Starting when released Confirm continuous 5FU 225 mg/m2/day over 168 hours (7 days per week) from Day 1 through day of radiation therapy: EITHER contact home infusion pharmacy to verify prescription OR signed order is present in treatment plan for during visit continuous infusion pump. Orde rHistory CHEMOTHERAPY fluorouracil 2,225 mg in sodium chloride 0.9% 39.5 mL CADD PUMP chemo infusion 2,225 mg (rounded from 2,230.2 mg = 180 mg/m2/day 1.77 m2 Treatment plan recorded BSA), Intravenous, Administer over 168 Hours, EVERY 7 DAYS, First dose on Tue02/07/17 at 1045 OUTPATIENT Chemotherapy: Use appropriate handling precautions. Protect from light. Continuo us infusion seven days per week from Day 1 through last day of radiation therapy. OrderH istory Post-Medications heparin 100 units/mL flush injection 500 Units (Not Given) 500 Units (5 mL), Intercatheter, PRN, Line Care, Starting Tue02/07/17 at 0920 OrderHis tory Portions of this chart may have been created with [employer] voice recognition software. Occasi onal wrong-word or [...]
--- OUTSIDE RECORDS SUMMARY | ~2019-06-11 | XMS | Encounter Summary ---
Demographics + + + | Address | [address] | | | [place] [address] | + + + | Home Phone [...] Providers + +------+ + | Care Senior Lead Project Manager Name | Role | Phone | + +------+ + | Silvioct Kristian | PCP | | + +------+ + Encounter Details +--------+------+ + + + | Date | Type | Department | Care Team | Description | +--------+------+ + + + | 11/27/ | Lab | Laboratory at [facility] | | Rectal cancer (HCC) | | 2019 | | [address] | | | | | | [place], [place] | | | | | | [address] | | | | | | [phone] | | | +--------+------+ + + + [...] | | | | | [place]zy H[place], | | | | | | [place] [address] | | | | | | [phone] | | | | | | | [...] | + + + + + | [facility] | [address] | [place] [address] | | | SERVICES, CORE | [address] | | | + + + + + documented in this encounter Visit Diagnoses + + | Diagnosis | + + | Rectal cancer (HCC) Malignant neoplasm of rectum | + + documented in this encounter"
--- OUTSIDE RECORDS SUMMARY | ~2019-06-11 | XMS | Encounter Summary ---
Demographics + + + | Address | [address] | | | [place] [address] | + + + | Home Phone | | + + + | Preferred Language | Unknown | + + + | Marital Status | | + + + | Catholic Affiliation | Unknown | + + + | Race | Unknown | + + + | Ethnic Group | Unknown | + + + Author + + + | Author | [facility] | | | and [place] | + + + | Organization | [facility] | | | and [place] | + + + | Address | Unknown | + + + | Phone | Unavailable | + + + Support + + + + + | Name | Relationship | Address | Phone | + + + + + | Lamar Phillips | REZA | [place] [address] | | + + + + + Care Team Providers + +------+ + | Care Principal Gifts Officer Name | Role | Phone | [...] + + | 08/23/ | Hospital | [facility] | [facility], | Rectal cancer (HCC) | | 2018 | Encounter | [facility] | Sirena White MD [address] | | | | | [address] | [facility] | | | | | [address] [facility] | [place] [address] | | | | | [place] [address] | [phone] | | | | | [phone] | | | +--------+ + + + [...] nt from the original. Hematology/Oncology Progress Note [facility] [place] Pt. Name/Age/: Paulette Byrnes 56 y[address]. 1960 [facility]. Record Number: [id number] Date of admission: 08/23/2017 The patient's primary care provider is Kristian Anderson DO. Identifying Statement: Paulette Byrnes is a 56 y.o. female from [address] [place] [address] with Locally Advanced Rectal Cancer. The patient chart and medications were reviewed in detail and the patient was seen and exam ined. History of Present Illnesses, their Current Assessments and Plans: Problem List Rectal cancer Overview ACTIVE DIAGNOSIS: Locally Advanced Rectal Cancer, [id number], Stage IIA. 1Jame Barajas presented to the [facility] emergency room on July 20, 2016 [...] cm within the rectum. Biopsy specimen number [id number] evaluated by Dr. Felipe Nixon of [facility] was notable for a tubular adenoma without high-grade dysplasia or overt carcinoma. This proced ure also included a full colonoscopy through the ostomy were 2 additional polyps were remove d, a tubular adenoma at 35 cm and a hyperplastic polyp at [address] C/A/P at [facility] in [place], [place] demonstrated no evidence of metastatic disease. 4. On September 22, 2016 Dr. Thacker placed in internal jugular Port-A-Cath without complications. 5. MRI of pelvis performed on October 05, 2016 at [facility]: Rectal mass 7.7 cm x 6.2 cm x 9.6 cm in length located within 3 cm of the anal sphincter and 6.4 cm from the anal verge with radi ographic extension though multiple areas of the bowel wall. 6. CT abdomen/pelvis also at [facility] October 05, 2016; large almost completely circumferential r ectosigmoid mass better delineated on the corresponding MRI with adjacent probable abscess. No distant metastases identified. 7. On October 14, 2016 Paulette was evaluated by Dr. Ailyn Wolff and Dr. Shea Mcneill of the [facility] where her case was presented to their tumor board. Clinical exa phillip is notable for an overt rectal carcinoma invading into the vagina. 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 Concerns raised by the [facility] Tumor Board were that the [...] as well as mutation analysis." Pathological Specimen #[id number] ([facility]). Tubulovillous adenoma with high grade [...] radiation. 14. Multidisciplinary Care Team Conference at [facility] March 10, 2017; "Given borderline resec tability, [...] resection by Dr. Ailyn Wolff at the [facility]: 06/30/17: Exploratory laparoto my. Extensive lysis of adhesions. Excision of left lower quadrant fistula tract. Total mesor ectal excision, intersphincteric abdominoperineal resection, en bloc resection of left ovary and left fallopian tube and posterior vaginal wall. Placement of a 19-Yakut Albert drain th rough the right lower [...] exam on August 12, 2017; Dr. Lea, [facility], [place], [place] ; positive for perianal fistula between anus and vagina. 22. Clinical exam on August 22, [address] Ailyn Wolff at [facility] who could not confirm the prese nce of perianal fistula. Current Assessment & Plan Paulette Byrnes returned to clinic on 08/23/2017 after a comprehensive re-evaluation by Dr. Wolff at [facility] in [place]. Dr. Wolff could not confirm the findings [...] this chart may have been created with [employer] voice recognition software. Occasi onal wrong-word or [...]
--- OUTSIDE RECORDS SUMMARY | ~2019-06-11 | XMS | Encounter Summary ---
Demographics + + + | Address | [address] | | | [place] [address] | + + + | Home Phone [...] Team Providers + +------+ + | Care Waterproof Bag Sewer Name | Role | Phone | + [...] | | | | Pre-operativ | [address] | | | | | | e | [address] | | | | | | cardiovascul | [place], | | | | | | ar | [place] | | | | | | examination | [address] | | | | | | Tobacco | Phone: | | | | | | abuse | [phone] | | | | | | Dyspnea, | Fax: | | | | | | unspecified | [phone] | | | | | | type [...] | | | | | | at [facility] [address] | | | | | | [address] Mailcode: | | | | | | [facility] [place] [facility] | | | | | | [facility], | | | | | | [address] | | | | | | [place], [place] | | | | | | [address] | | | | | | [phone] | | | +--------+ + + + [...] | | 2018 | Visit | | [address] | | | | | | [place]a [place], | | | | | | [place] [address] | | | | | | [phone] | | | | | | | [...]
--- OUTSIDE RECORDS SUMMARY | ~2019-06-11 | XMS | Encounter Summary ---
Demographics + + + | Address | [address] | | | [place] [address] | + + + | Home Phone | | + + + | Preferred Language | Unknown | + + + | Marital Status | | + + + | Cheondoism Affiliation | Unknown | + + + | Race | Unknown | + + + | Ethnic Group | Unknown | + + + Author + + + | Author | [facility] | | | and [place] | + + + | Organization | [facility] | | | and [place] | + + + | Address | Unknown | + + + | Phone | Unavailable | + + + Support + + + + + | Name | Relationship | Address | Phone | + + + + + | Lamar Phillips | REZA | [place] [address] | | + + + + + Care Team Providers + +------+ + | Care Solid Waste Collector Name | Role | Phone | [...] + + | 01/17/ | Hospital | [facility] | Tayla Abernathy | Rectal cancer (HCC) | | 2017 | Encounter | [facility] | J, PharmD [address] | | | | | [address] | [address] | | | | | [address] | [place] [address] | | | | | [place] [address] | [phone] | | | | | [phone] | | | +--------+ + + + [...] original. Clinical Oncology Pharmacy Services Progress Note [facility] Pt. Name/Age/: Jenn Parada 56 y.o. 1960 CSN: [id number] Date of service: 01/17/2017 Provider: Tayla Abernathy, SheilaD Identifying Statement: Jenn Parada is a 56 y.o. female from [address] [place] [address], There were no encounter diagnoses. The patient [...] was recommended by her treatment team at [facility]. Jenn is noticing progressive fatigue, but continues [...]
--- OUTSIDE RECORDS SUMMARY | ~2019-06-11 | XMS | Encounter Summary ---
Demographics + + + | Address | [address] | | | [place] [address] | + + + | Home Phone [...] | + + +---------+ + | Darrius Quinatna | ECON | Unknown | | + + +---------+ + Care Team Providers + +------+ + | Care Eyeletter Name | Role | Phone | + [...] | Visit | Center at [facility] [address] | [address] | (Primary Dx) | | | | [address] | Suzy Hines [place], | | | | | Mailcode: [place] | [place] [address] | | | | | for Health and | [phone] | | | | | [facility] 2 | | | | | | [place], [place] | | | | | | [address] | | | | | | [phone] | | | +--------+---------+ + + + [...] rectal bleeding on 07/19/16 went to the [facility] ED CT abdomen/pelvis with IV [...] cm from anal verge presented at the [facility] Multidisciplinary GI Oncology Conference on [...] to Mendoza pouch staple line presented at [facility] Multidisciplinary GI Oncology Conference on [...] MRI ([facility], 05/17/17) close to pelvic sidewall [facility] Multidisciplinary GI Oncology Conference (06/02/17) [...] resection with Primary anastomosis, placement of a 19-Venezuelan Albert drain through the right lower quadrant [...] resection with primary anastomosis, placement of a 19-Venezuelan Albert drain through the right lower quadrant wall into the presacral space, 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, and placement of anthony drain into former rectocutaneous fistula(06/30/17) cycle 12 FOLFOX on 09/05/17 last seen by me on 11/27/18 LLQ parastomal pain 3 times a week. No abdominal pain now. Took a narcotic pain pill a w soboba ago. Good appetite. Tolerating her diet. Intermittent [...] and are negative. She comes for routine [facility] surveillance. Objective: BP 151/84 | Pulse [...] Return/Re-evaluation patient, I spent 10 minutes of ihxs-uk-ovqt time, of which m ore than half [...] | | | | | Suzy Hines [place], | | | | | | [place] [address] | | | | | | [phone] | | | | | | | [...] CHAPIN JESSICA | [address] | [place] [address] | | | SERVICES, CORE | [address] | | | + + + + + documented in this encounter Visit Diagnoses + + | Diagnosis | + + | 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
--- OUTSIDE RECORDS SUMMARY | ~2019-06-11 | XMS | Encounter Summary ---
Demographics + + + | Address | [address] | | | [place] [address] | + + + | Home Phone | | + + + | Preferred Language | Unknown | + + + | Marital Status | | + + + | Faith Affiliation | Unknown | + + + | Race | Unknown | + + + | Ethnic Group | Unknown | + + + Author + + + | Author | [facility] | | | and [place] | + + + | Organization | [facility] | | | and [place] | + + + | Address | Unknown | + + + | Phone | Unavailable | + + + Support + + + + + | Name | Relationship | Address | Phone | + + + + + | Lamar Phillips | REZA | [place] [address] | | + + + + + Care Team Providers + +------+ + | Care Funeral Planning Counselor Name | Role | Phone | [...] [place], [place] | | | | | [place], | [address] | | | | | [place] [address] | | | | | | [phone] | | | +--------+ + + + [...]
--- OUTSIDE RECORDS SUMMARY | ~2019-06-11 | XMS | Encounter Summary ---
Demographics + + + | Address | [address] | | | [place] [address] | + + + | Home Phone [...] Team Providers + +------+ + | Care Packing And Final Assembly Supervisor Name | Role | Phone | [...] 2017 | | Center at [facility] [address] | [address] | the thigh); Blood in | | | | [address] | [address] [place], | urine (UTI work up | | | | Mailcode: [place] | [place] [address] | ordered) | | | | for Health and | [phone] | | | | | [facility], [facility] 2 | | | | | | [place], [place] | | | | | | [address] | | | | | | [phone] | | | +--------+ + + + [...] | | | | | Amita [place], | | | | | | [place] [address] | | | | | | [phone] | | | | | | | | +--------+---------+ + + + documented as of this encounter Visit Diagnoses + + | Diagnosis | + + | Hematuria, unspecified type - Primary | + + documented in this encounter"
--- OUTSIDE RECORDS SUMMARY | ~2019-06-11 | XMS | Encounter Summary ---
Demographics + + + | Address | [address] | | | [place] [address] | + + + | Home Phone | | + + + | Preferred Language | Unknown | + + + | Marital Status | | + + + | Sikh Affiliation | Unknown | + + + | Race | Unknown | + + + | Ethnic Group | Unknown | + + + Author + + + | Author | [facility] | | | and [place] | + + + | Organization | [facility] | | | and [place] | + + + | Address | Unknown | + + + | Phone | Unavailable | + + + Support + + + + + | Name | Relationship | Address | Phone | + + + + + | Lamar Phillips | REZA | [place] [address] | | + + + + + Care Team Providers + +------+ + | Care Sales And Catering Coordinator Name | Role | Phone | [...] [place], [place] | | | | | [place], | [address] | | | | | [place] [address] | | | | | | [phone] | | | +--------+ + + + [...]
--- OUTSIDE RECORDS SUMMARY | ~2019-06-11 | XMS | Encounter Summary ---
Demographics + + + | Address | [address] | | | [place] [address] | + + + | Home Phone [...] Team Providers + +------+ + | Care Livestock Nutritionist Name | Role | Phone | + [...] | 2018 | Encounter | Center at [facility] [address] | [address] | | | | | [address] | Amita Hines [place], | | | | | Mailcode: [place] | [place] [address] | | | | | for Health and | [phone] | | | | | [facility], [facility] 2 | | | | | | [place], [place] | | | | | | [address] | | | | | | [phone] | | | +--------+ + + + [...] | | | | [place]mita H[place], | | | | | | [place] [address] | | | | | | [phone] | | | | | | | | +--------+---------+ + + + documented as of this encounter Visit Diagnoses Not on filedocumented in this encounter"
--- OUTSIDE RECORDS SUMMARY | ~2019-06-11 | XMS | Encounter Summary ---
Demographics + + + | Address | [address] | | | [place] [address] | + + + | Home Phone [...] Team Providers + +------+ + | Care Shipping Support Name | Role | Phone | + [...] | | 2017 | | Center at [facility] [address] | [address] | Review | | | | [address] | Amita Hines [place], | | | | | Mailcode: [place] | [place] [address] | | | | | for Health and | [phone] | | | | | [facility] 2 | | | | | | [place], [place] | | | | | | [address] | | | | | | [phone] | | | +--------+ + + + [...] | | | | | Amita Hines [place], | | | | | | [place] [address] | | | | | | [phone] | | | | | | | | +--------+---------+ + + + documented as of this encounter Visit Diagnoses Not on filedocumented in this encounter"
--- OUTSIDE RECORDS SUMMARY | ~2019-06-11 | XMS | Encounter Summary ---
Demographics + + + | Address | [address] | | | [place] [address] | + + + | Home Phone | | + + + | Preferred Language | Unknown | + + + | Marital Status | | + + + | Oriental Orthodox Affiliation | Unknown | + + + | Race | Unknown | + + + | Ethnic Group | Unknown | + + + Author + + + | Author | [facility] | | | and [place] | + + + | Organization | [facility] | | | and [place] | + + + | Address | Unknown | + + + | Phone | Unavailable | + + + Support + + + + + | Name | Relationship | Address | Phone | + + + + + | Lamar Phillips | REZA | [place] [address] | | + + + + + Care Team Providers + +------+ + | Care Diplomatic Interpreter/Translator Name | Role | Phone | + [...] [place] | | | | | [address] [place] | [place] [address] | | | | | [place] [address] | [phone] | | | | | [phone] | | | +--------+ + + + [...]
--- OUTSIDE RECORDS SUMMARY | ~2019-06-11 | XMS | Encounter Summary ---
Demographics + + + | Address | [address] | | | [place] [address] | + + + | Home Phone [...] Team Providers + +------+ + | Care Bird Keeper Name | Role | Phone | [...] 2018 | | Center at [facility] [address] | [address] | Received | | | | [address] | Amita Hines [place], | | | | | Mailcode: [place] | [place] [address] | | | | | for Health and | [phone] | | | | | [facility] 2 | | | | | | [place], [place] | | | | | | [address] | | | | | | [phone] | | | +--------+ + + + [...] | | | | | Amita Hines [place], | | | | | | [place] [address] | | | | | | [phone] | | | | | | | | +--------+---------+ + + + documented as of this encounter Visit Diagnoses Not on filedocumented in this encounter"
--- OUTSIDE RECORDS SUMMARY | ~2019-06-11 | XMS | Encounter Summary ---
Demographics + + + | Address | [address] | | | [place] [address] | + + + | Home Phone [...] Team Providers + +------+ + | Care Accountant Certified Public Name | Role | Phone | + [...] | 2018 | Encounter | Center at [facility] [address] | [address] | | | | | [address] | Amita Hines [place], | | | | | Mailcode: [place] | [place] [address] | | | | | for Health and | [phone] | | | | | [facility], [facility] 2 | | | | | | [place], [place] | | | | | | [address] | | | | | | [phone] | | | +--------+ + + + [...] | | | | | Amita Hines [place], | | | | | | [place] [address] | | | | | | [phone] | | | | | | | | +--------+---------+ + + + documented as of this encounter Visit Diagnoses Not on filedocumented in this encounter"
--- OUTSIDE RECORDS SUMMARY | ~2019-06-11 | XMS | Encounter Summary ---
Demographics + + + | Address | [address] | | | [place] [address] | + + + | Home Phone [...] Team Providers + +------+ + | Care Time Study Technician Name | Role | Phone | [...] | 2019 | Encounter | Center at [facility] [address] | [address] | | | | | [address] | Amita Hines [facility] | | | | | Mailcode: [place] | [place] [address] | | | | | for Health and | [phone] | | | | | [place] [address] | | | | | | [place], [place] | | | | | | [address] | | | | | | [phone] | | | +--------+ + + + [...] | | | | | Amita Hines [place], | | | | | | [place] [address] | | | | | | [phone] | | | | | | | | +--------+---------+ + + + documented as of this encounter Visit Diagnoses Not on filedocumented in this encounter"
--- OUTSIDE RECORDS SUMMARY | ~2019-06-11 | XMS | Encounter Summary ---
Demographics + + + | Address | [address] | | | [place] [address] | + + + | Home Phone [...] Team Providers + +------+ + | Care Satellite Instruction Facilitator Name | Role | Phone | [...] | | | | CT CHEST, | [place], [place] | Mailcode: | | | | | ABDOMEN AND | [address] | [address] [facility] | | | | | [address] | Phone: | Hospital | | | | | CONTRAST GA | [phone] | [place], [place] | | | | | CAT SCAN OF | Fax: | [address] | | | | | CHEST | [phone] | Phone: | | | | | CONTRAST GA | | [phone] | | | | | CT | | Fax: | | | | | ABDOMEN&PELV | | [phone] | | | | | IS | [...] | | | | CT CHEST, | [place], [place] | Mailcode: | | | | | ABDOMEN AND | [address] | [address] [facility] | | | | | PELVIS [address] IV | Phone: | Hospital | | | | | CONTRAST GA | [phone] | [place], [place] | | | | | CAT SCAN OF | Fax: | [address] | | | | | CHEST | [phone] | Phone: | | | | | CONTRAST GA | | [phone] | | | | | CT | | Fax: | | | | | ABDOMEN&PELV | | [phone] | | | | | IS | [...] | 2017 | Encounter | Services at [facility] | [address] | | | | | [address] | Amita Hines [place], | | | | | Amita Hines Mailcode: | [place] [address] | | | | | [address] [facility] | [phone] | | | | | [place], [place] | | | | | | [address] | | | | | | [phone] | | | +--------+ + + + [...] | | | | | Amita Hines [place], | | | | | | [place] [address] | | | | | | [phone] | | | | | | | [...]
--- OUTSIDE RECORDS SUMMARY | ~2019-06-11 | XMS | Encounter Summary ---
Demographics + + + | Address | [address] | | | [place] [address] | + + + | Home Phone | | + + + | Preferred Language | Unknown | + + + | Marital Status | | + + + | Jewish Affiliation | Unknown | + + + | Race | Unknown | + + + | Ethnic Group | Unknown | + + + Author + + + | Author | [facility] | | | and [place] | + + + | Organization | [facility] | | | and [place] | + + + | Address | Unknown | + + + | Phone | Unavailable | + + + Support + + + + + | Name | Relationship | Address | Phone | + + + + + | Lamar Phillips | REZA | [place] [address] | | + + + + + Care Team Providers + +------+ + | Care English Horn Player Name | Role | Phone | + [...] neoplasm of | Mike C, | [place] | | | | | rectum (HCC) | MD [address] | [place], | | | | | Procedures | [address] | [place] [address] | | | | | MD | [place], | Phone: | | | | | [place] | [place] [address] | [phone] | | | | | HCL | Phone: | Fax: | | | | | INJECTION, 1 | [phone] | [phone] | | | | | MG MD | Fax: | | | | | | DEXAMETHASON | [phone] | | | | | | E SODIUM | | | | | | | PHOS, 1 MG | | | | | | | MD LORAZEPAM | | | | | | | INJECTION, | | | | | | | 2 MG MD | | | | | | | OXALIPLATIN, | | | | | | | .5 MG MD | | | | | | | LEUCOVORIN | | | | | | | CALCIUM | | | | | | | INJECTION, | | | | | | | 50 MG MD | | | | | | | FLUOROURACIL | | | | | | | INJECTION, | | | | | | | 500 MG MD | | | | | | | DIPHENHYDRAM | | | | | | | INE HCL | | | | | | | INJECTIO, 50 | | | | | | | MG MD | | | | | | | METHYLPREDNI | | | | | | | SOLONE | | | | | | | INJECTION, | | | | | | | 125 MG MD | | | | | | | ADRENALIN | | | | | | | EPINEPHRINE | | | | | | | INJECT, .1 | | | | | | | MG MD | | | | | | | ALBUTEROL | | | | | | | COMP CON, 1 | | | | | | | MG MD | | | | | | | ALBUTEROL | | | | | | | NON-COMP | | | | | | | CON, 1 MG | | | | | | | MD | | | | | | | INJECTION, | | | | | | | FAMOTIDINE, | | | | | | | 20 MG MD | | | | | | | NORMAL | | | | | | | SALINE | | | | | | | SOLUTION | | | | | | | INFUS, 500 | | | | | | | ML MD | | | | | | | NORMAL | | | | | | | SALINE | | | | | | | SOLUTION | | | | | | | INFUS, 250 | | | | | | | ML MD | | | | | | | STERILE | | | | | | | WATER/SALINE | | | | | | | , 10 ML MD | | | | | | | CHEMOTHER, | | | | | | | IV PUSH,EA | | | | | | | ADD DRUG MD | | | | | | | CHEMOTHER, | | | | | | | IV INFUSION, | | | | | | | 1 HR MD | | | | | | | CHEMOTHER, | | | | | | | IV INFUSION, | | | | | | | EA HR MD | | | | | | | CHEMOTHER,NO | | | | | | | N-HORMONE | | | | | | | ANTI-NEOPL, | | | | | | | SUB-Q/IM MD | | | | | | | CHEMOTHER | | | | | | | HORMON | | | | | | | ANTINEOPL | | | | | | | SUB-Q/IM MD | | | | | | | | | | | | | | PALONOSETRON | | | | | | | HCL, 25 MCG | | | | | | | MD DRUGS | | | | | | | UNCLASSIFIED | | | | | | | INJECTION, | | | | | | | 1 ML | | | +--------+--------+ + + + + Encounter Details +--------+ + + + + | Date | Type | Department | Care Team | Description | +--------+ + + + + | 08/15/ | Hospital | [facility] | [place], | Rectal cancer (HCC) | | 2018 | Encounter | [facility] | Mike White MD [address] | | | | | INFUSION [address] | [address] [facility] | | | | | [place], | [place] [address] | | | | | [place] [address] | [phone] | | | | | [phone] | | | +--------+ + + + [...] + + + | Blood Pressure | 133/73 | 08/15/2017 1:58 PM | | | | | PST | | + + + + + | Pulse | 86 | 08/15/2017 1:58 PM | | | | | PST | | + + + + + | Temperature | 36.7 C (98.1 F) | 08/15/2017 1:58 PM | | | | | PST | | + + + + + | Respiratory Rate | 16 | 08/15/2017 1:58 PM | | | | | PST [...] documented as of this encounter Progress Notes Mery Marcial RN - 08/15/2017 2:13 PM PSTPatient tolerated transfusion well today. S he is here with her son, she did not have any reactions. AVS provided with follow up appts. Patient denies questions or concerns. Patient discharged home in good condition with son. El ectronically signed by Mery Marcial RN at 08/15/2017 2:14 PM PSTdocumented in this en counter Plan of Treatment Not on filedocumented as of this encounter Procedures + +--------+ + + + | Procedure Name | Priori | Date/Time | Associated Diagnosis | Comments | | | ty | | | | + +--------+ + + + | PRODUCT: RBC | Routin | 08/16/2017 | Rectal cancer | Results for this | | | e | 1:15 AM | (HCC) | procedure are in the | | | | PST | | results section. | + +--------+ + + + | TRANSFUSE RED BLOOD | Routin | 08/15/2017 | Rectal cancer | | | CELLS | e | 1:58 PM | (HCC) | | | | | PST | | | + +--------+ + + + | TRANSFUSE RED BLOOD | Routin | 08/15/2017 | Rectal cancer | | | CELLS | e | 12:16 PM | (HCC) | | | | | PST | | | + +--------+ + + + | TYPE AND SCREEN | Routin | 08/15/2017 | Rectal cancer | Results for this | | | e | 9:26 AM | (HCC) | procedure are in the | | | | PST | | results section. | + +--------+ + + + | CBC WITH | STAT | 08/15/2017 | Rectal cancer | Results for this | | DIFFERENTIAL | | 8:10 AM | (HCC) | procedure are in the | | | | PST | | results section. | + +--------+ + + + | LACTATE | STAT | 08/15/2017 | Rectal cancer | Results for this | | DEHYDROGENASE | | 8:10 AM | (HCC) | procedure are in the | | | | PST | | results section. | + +--------+ + + + | COMPREHENSIVE | STAT | 08/15/2017 | Rectal cancer | Results for this | | METABOLIC PANEL | | 8:10 AM | (HCC) | procedure are in the | | | | PST | | results section. | + +--------+ + + + documented in this encounter Results PRODUCT: RBC (08/16/2017 1:15 AM PST) + + + + + + | Component | Value | Ref Range | Performed | Pathologist | | | | | At | Signature | + + + + + + | Product | [id number] | | [facility] | | | Code | | [facility] | | [facility] | | | | | | [facility] - | | | | | | BLOOD BANK | | + + + + + + | UNIT # | [id number] | | [facility] | | | | | [facility] | | | | | | [facility] | | | | | | [facility] - | | | | | | BLOOD BANK | | + + + + + + | UNIT ABO | O | | [facility] | | | | | | [facility] | | | | | | [facility] | | | | | | [facility] - | | | | | | BLOOD BANK | | + + + + + + | UNIT RH | POS | | [facility] | | | | | | [facility] | | | | | | [facility] | | | | | | [facility] - | | | | | | BLOOD BANK | | + + + + + + | CROSSMATCH | Compatible | | [facility] | | | INTERP | | | [facility] | | | | | | [facility] | | | | | | CENTER - | | | | | | BLOOD BANK | | + + + + + + | Unit Status | Transfused | | [facility] | | | | | | [facility] | | | | | | [facility] | | | | | | [facility] - | | | | | | BLOOD BANK | | + + + + + + | Blood | OPOS | | [facility] | | | Product | | | [facility] | | | ABORh | | | MEDICAL | | | | | | CENTER - | | | | | | BLOOD BANK | | + + + + + + | Blood | [id number] | | [facility] | | | Product | | | [facility] | | | Expiration | | | MEDICAL | | | Date and | | | CENTER - | | | Time | | | BLOOD BANK | | + + + + + + | Product | 5100 | | [facility] | | | Blood Type | | | [facility] | | | Barcode | | | MEDICAL | | | | | | CENTER - | | | | | | BLOOD BANK | | + + + + + + | Product | [id number] | | [facility] | | | Code | | | [facility] | | | | | | [facility] | | | | | | [facility] - | | | | | | BLOOD BANK | | + + + + + + | UNIT # | [id number] | | [facility] | | | | | | [facility] | | | | | | [facility] | | | | | | [facility] - | | | | | | BLOOD BANK | | + + + + + + | UNIT ABO | O | | [facility] | | | | | | [facility] | | | | | | [facility] | | | | | | [facility] - | | | | | | BLOOD BANK | | + + + + + + | UNIT RH | POS | | [facility] | | | | | | [facility] | | | | | | [facility] | | | | | | [facility] - | | | | | | BLOOD BANK | | + + + + + + | CROSSMATCH | Compatible | | [facility] | | | INTERP | | | [facility] | | | | | | [facility] | | | | | | CENTER - | | | | | | BLOOD BANK | | + + + + + + | Unit Status | Transfused | | [facility] | | | | | | [facility] | | | | | | [facility] | | | | | | [facility] - | | | | | | BLOOD BANK | | + + + + + + | Blood | OPOS | | [facility] | | | Product | | | [facility] | | | ABORh | | | MEDICAL | | | | | | CENTER - | | | | | | BLOOD BANK | | + + + + + + | Blood | [id number] | | [facility] | | | Product | | | [facility] | | | Expiration | | | MEDICAL | | | Date and | | | CENTER - | | | Time | | | BLOOD BANK | | + + + + + + | Product | 5100 | | [facility] | | | Blood Type | | | [facility] | | | Barcode | | | MEDICAL | | | | | | CENTER - | | | | | | BLOOD BANK | | + + + + + + + + | Specimen | + + | | + + + + + + + | Performing | Address | City/State/Zipcode | Phone Number | | Organization | | | | + + + + + | [facility] | [address] | [place] | | | [facility] | | [address] | | | - BLOOD BANK | | | | + + + + + Type and Screen (08/15/2017 9:26 AM PST) + + + + + + | Component | Value | Ref Range | Performed | Pathologist | | | | | At | Signature | + + + + + + | ABO | O | | [facility] | | | | | | [facility] | | | | | | [facility] | | | | | | CENTER - | | | | | | BLOOD BANK | | + + + + + + | Rh Type | Positive | | [facility] | | | | | | [facility] | | | | | | [facility] | | | | | | CENTER - | | | | | | BLOOD BANK | | + + + + + + | Antibody | Negative | | [facility] | | | Screen | | | [facility] | | | | | | [facility]ICAL | | | | | | CENTER - | | | | | | BLOOD BANK | | + + + + + + + + | Specimen | + + | Blood | + + + + + + + | Performing | Address | City/State/Zipcode | Phone Number | | Organization | | | | + + + + + | [facility] | [address] | [place] | | | [facility] | | [address] | | | - BLOOD BANK | | | | + + + + + Lactate Dehydrogenase (08/15/2017 8:10 AM PST) + +-------+ + + + | Component | Value | Ref Range | Performed | Pathologist | | | | | At | Signature | + +-------+ + + + | LDH TOTAL | 134 | 91 - 180 U/L | [facility] [...] + | [facility] | [address] | [place] | [phone] | | [facility] | | [address] | | | - LABORATORY | | | | + + + + + CBC with Differential (08/15/2017 8:10 AM PST) + + + + + + | Component | Value | Ref Range | Performed | Pathologist | | | | | At | Signature | + + + + + + | WBC | 8.7 | 4.0 - 11.0 K/uL | [facility] | | | | | | [facility] | | | | | | [facility] | | | | | | CENTER - | | | | | | LABORATORY | | + + + + + + | RBC | 3.20 (L) | 3.70 - 5.20 | [facility] | | | | | M/uL | [facility] | | | | | | MEDICAL | | | | | | CENTER - | | | | | | LABORATORY | | + + + + + + | Hemoglobin | 7.8 (L) | 11.5 - 16.0 | [facility] | | | | | g/dL | [facility] | | | | | | MEDICAL | | | | | | CENTER - | | | | | | LABORATORY | | + + + + + + | Hematocrit | 24.4 (L) | 34.0 - 47.0 % | [...] + + + + | MCH | 24.2 (L) | 28.0 - 35.0 pg | [facility] | | | | | | [facility] | | | | | | MEDICAL | | | | | | CENTER - | | | | | | LABORATORY | | + + + + + + | MCHC | 31.8 (L) | 32.0 - 36.0 | [facility] [...] + + + + | Platelet | 613 (H) | 140 - 440 K/uL | [...] + + + + | % | 84.5 (H) | 45.0 - 82.0 % | [facility] | | | Neutrophils | | | [facility] | | | | | | MEDICAL | | | | | | CENTER - | | | | | | LABORATORY | | + + + + + + | % | 7.4 (L) | 20.0 - 45.0 % | [facility] | | | Lymphocytes | | | [facility] | | | | | | MEDICAL | | | | | | CENTER - | | | | | | LABORATORY | | + + + + + + | % Monocytes | 5.8 | 4.0 - 12.0 % | [facility] | | | | | | [facility] | | | | | | MEDICAL | | | | | | CENTER - | | | | | | LABORATORY | | + + + + + + | % | 1.6 | 0.0 - 5.0 % | [facility] [...] + + + + | Absolute | 7.30 | 1.80 - 8.50 | [facility] | [...] [address] | [place] | [phone] | | [facility] | | [address] | | | - LABORATORY | | | | + + + + + Comprehensive Metabolic Panel (08/15/2017 8:10 AM PST) + + + + + [...] + + + + | K | 4.0 | 3.5 - 5.1 | [facility] | [...] + + + + | Glucose | 93 | 70 - 109 mg/dL | [facility] [...] + + + + | Creatinine | 0.49 (L) | 0.60 - 1.30 | [facility] [...] mL/min/1.73m2 | [facility] | | | [facility] | RATE,ESTIMATED | | MEDICAL | | | | mL/min/1.26r2Iadi than | | CENTER - | | [...] + + + + | Albumin | 2.5 (L) | 3.2 - 5.0 g/dL | [...] + + + + | AST | 26Comment: This is an | 10 - 42 [...] + + + + | ALT | 28Comment: This is an | 6 - 45 [...] + + + + | BUN/Creatin | 16.3 | | [facility] | | | ine [...] ST. | [address] | [place] | [phone] | | [facility] | | [address] | | | - LABORATORY | | [...] | | | + +--------+ +--------+------+------+ | acetaminophen (TYLENOL) tablet | Given | 08/15/19 | 650 mg | | | | 650 mg 650 mg, Oral, ONCE, Mon | | 18 10:07 | | | | | 08/15/17 at 0945, For 1 dose, | | AM PST | | | | | Maximum dose of acetaminophen is | | | | | | | 4000 mg from all sources in 24 | | | | | | | hours., | | | | | | + +--------+ +--------+------+------+ +---+---+ | | | +---+---+ + +-------+ +-------+---+---+ | diphenhydrAMINE (BENADRYL) | Given | 08/15/19 | 25 mg | | | | tablet 25 mg 25 mg, Oral, ONCE, | | 18 10:07 | | | | | 08/15/17 at 0945, For 1 dose | | AM PST | | | | + +-------+ +-------+---+---+ +---+---+ | | | +---+---+ + +-------+ +---+---+---+ | ethyl chloride spray Topical, | Given | 08/15/19 | | | | | PRN, Pain, Starting 08/15/17 | | 18 8:23 | | | | | at 0810 | | AM PST | | | | + +-------+ +---+---+---+ +---+---+ | | | +---+---+ + +-------+ +-------+---+---+ | heparin 100 units/mL flush | Given | 08/15/19 | 500 | | | | injection 500 Units 500 Units (5 | | 18 2:04 | Units | | | | mL), Intracatheter, PRN, Line | | PM PST | | | | | Care, Starting 08/15/17 at | | | | | | | 1359 | | | | | | + +-------+ +-------+---+---+ +---+---+ | | | +---+---+ documented in this encounter"
--- OUTSIDE RECORDS SUMMARY | ~2019-06-11 | XMS | Encounter Summary ---
Demographics + + + | Address | [address] | | | [place] [address] | + + + | Home Phone [...] Team Providers + +------+ + | Care Perforator Loader Name | Role | Phone | [...] | 2017 | Encounter | Center at [facility] [address] | [address] | | | | | [place] | [place], | | | | | Mailcode: [place] | [place] [address] | | | | | for Health and | [phone] | | | | | [facility] [address] | | | | | | [place], [place] | | | | | | [address] | | | | | | [phone] | | | +--------+ + + + [...] | | | | | | [place] [address] | | | | | | [phone] | | | | | | | | +--------+---------+ + + + documented as of this encounter Visit Diagnoses Not on filedocumented in this encounter"
--- OUTSIDE RECORDS SUMMARY | ~2019-06-11 | XMS | Encounter Summary ---
Demographics + + + | Address | [address] | | | [place] [address] | + + + | Home Phone | | + + + | Preferred Language | Unknown | + + + | Marital Status | | + + + | Restoration Affiliation | Unknown | + + + | Race | Unknown | + + + | Ethnic Group | Unknown | + + + Author + + + | Author | [facility] | | | and [place] | + + + | Organization | [facility] | | | and [place] | + + + | Address | Unknown | + + + | Phone | Unavailable | + + + Support + + + + + | Name | Relationship | Address | Phone | + + + + + | Lamar Phillips | REZA | [place] [address] | | + + + + + [...] neoplasm of | Mike C, | [address] | | | | | rectum (HCC) | MD [address] | [place], | | | | | Procedures | [address] | [place] [address] | | | | | [place] | [place], | Phone: | | | | | [place] | [place] [address] | [phone] | | | | | INJECTION, | Phone: | Fax: | | | | | 500 MG [place] | [phone] | [phone] | | | | | ONDANSETRON | Fax: | | | | | | HCL | [phone] | | | | | | INJECTION, 1 | | | | | | | MG CA | | | | | | | DEXAMETHASON | | | | | | | E SODIUM | | | | | | | PHOS, 1 MG | | | | | | | CA | | | | | | | FOSAPREPITAN | | | | | | | T INJECTION, | | | | | | | 1 MG CA | | | | | | | LORAZEPAM | | | | | | | INJECTION, 2 | | | | | | | MG CA | | | | | | | OXALIPLATIN, | | | | | | | .5 MG CA | | | | | | | LEUCOVORIN | | | | | | | CALCIUM | | | | | | | INJECTION, | | | | | | | 50 MG CA | | | | | | | DIPHENHYDRAM | | | | | | | INE HCL | | | | | | | INJECTIO, 50 | | | | | | | MG CA | | | | | | | METHYLPREDNI | | | | | | | SOLONE | | | | | | | INJECTION, | | | | | | | 125 MG CA | | | | | | | ALBUTEROL | | | | | | | COMP CON, 1 | | | | | | | MG CA | | | | | | | ALBUTEROL | | | | | | | NON-COMP | | | | | | | CON, 1 MG | | | | | | | CA | | | | | | | INJECTION, | | | | | | | FAMOTIDINE, | | | | | | | 20 MG CA | | | | | | | NORMAL | | | | | | | SALINE | | | | | | | SOLUTION | | | | | | | INFUS, 500 | | | | | | | ML CA | | | | | | | NORMAL | | | | | | | SALINE | | | | | | | SOLUTION | | | | | | | INFUS, 250 | | | | | | | ML CA | | | | | | | STERILE | | | | | | | WATER/SALINE | | | | | | | , 10 ML CA | | | | | | | CHEMOTHER, | | | | | | | IV PUSH,EA | | | | | | | ADD DRUG CA | | | | | | | CHEMOTHER, | | | | | | | IV INFUSION, | | | | | | | 1 HR CA | | | | | | | CHEMOTHER, | | | | | | | IV INFUSION, | | | | | | | EA HR CA | | | | | | | CHEMOTHER,NO | | | | | | | N-HORMONE | | | | | | | ANTI-NEOPL, | | | | | | | SUB-Q/IM CA | | | | | | | CHEMOTHER | | | | | | | HORMON | | | | | | | ANTINEOPL | | | | | | | SUB-Q/IM CA | | | | | | | NA FERRIC | | | | | | | GLUCONATE | | | | | | | COMPLEX, | | | | | | | 12.5 MG CA | | | | | | | IRON SUCROSE | | | | | | | INJECTION, | | | | | | | 1 MG | | | +--------+--------+ + + + + Encounter Details +--------+ + + + + | Date | Type | Department | Care Team | Description | +--------+ + + + + | 11/01/ | Hospital | [facility] | Janel, | Rectal cancer (HCC) | | 2017 | Encounter | MED CTR CHEMO | Mike White MD [address] | | | | | INFUSION [address] | [address] [facility] | | | | | [address] [place], | [place] [address] | | | | | [place] [address] | [phone] | | | | | [phone] | | | +--------+ + + + [...] documented as of this encounter Progress Notes Michelle Zarate RN - 11/01/2016 1:00 PM PDTPatient discharged in satisfactory condition. Discharged ambulatory. With family. To home. Verified [...] | IRON AND TRANSFERRIN | STAT | 11/01/2016 | Rectal cancer | Results for this | | | | 7:34 AM | (HCC) | procedure are in the | | | | PDT | | results section. | + +--------+ + + + | CBC WITH | STAT | 11/01/2016 | Rectal cancer | Results for this | | DIFFERENTIAL | | 7:34 AM | (HCC) | procedure are in the | | | | PDT | | results section. | + +--------+ + + + | LACTATE | STAT | 11/01/2016 | Rectal cancer | Results for this | | DEHYDROGENASE | | 7:34 AM | (HCC) | procedure are in the | | | | PDT | | results section. | + +--------+ + + + | FERRITIN | STAT | 11/01/2016 | Rectal cancer | Results for this | | | | 7:34 AM | (HCC) | procedure are in the | | | | PDT | | results section. | + +--------+ + + + | COMPREHENSIVE | STAT | 11/01/2016 | Rectal cancer | Results for this | | METABOLIC PANEL | | 7:34 AM | (HCC) | procedure are in the | | | | PDT | | results section. | + +--------+ + + + documented in this encounter Results CBC with Differential (11/01/2016 7:34 AM PDT) + + + + + [...] + + + + | RBC | 4.22 | 3.70 - 5.20 | [facility] | | | | M[facility]uL | [facility] | | [facility] | | | | [facility] - | | | | | | LABORATORY | | + + + + + + | Hemoglobin | 9.9 (L) | 11.5 - 16.0 | [facility] [...] + + + + | MCV | 76.6 (L) | 83.0 - 101.0 fL | [facility] | | | | | [facility] | | [facility] | [facility] | | | | | | [facility] - | | | | | | LABORATORY | | + + + + + + | MCH | 23.4 (L) | 28.0 - 35.0 pg | [facility] | | | | | | [facility] | | | | | | [facility] | | | | | | [facility] - | | | | | | LABORATORY | | + + + + + + | MCHC | 30.6 (L) | 32.0 - 36.0 | [facility] | | | | | g/dL | [facility] | | | | | | [facility] | | | | | | CENTER - | | | | | | LABORATORY | | + + + + + + | RDW-CV | 17.9 (H) | <15.0 % | [facility] | | | | | | [facility] | | | | | | [facility] | | | | | | C[facility] - | | | | | | LABORATORY | | + + + + + + | Platelet | 526 (H) | 140 - 440 K/uL | [...] + + + + | % | 74.0 | 45.0 - 82.0 % | [facility] | | | Neutrophils | | | [facility] | | | | | | [facility] | | | | | | CENTER - | | | | | | LABORATORY | | + + + + + + | % | 11.8 (L) | 20.0 - 45.0 % | [facility] | | | Lymphocytes | | | [facility] | | | | | | [facility] | | | | | | CENTER - | | | | | | LABORATORY | | + + + + + + | % Monocytes | 10.4 | 4.0 - 12.0 % | [facility] | | | | | | [facility] | | | | | | [facility] | | | | | | [facility] - | | | | | | LABORATORY | | + + + + + + | % | 3.1 | 0.0 - 5.0 % | [facility] | | | Eosinophils | | | [facility] | | [...] + + | Absolute | 1.00 | 0.00 - 1.00 | [facility] | [...] + | [facility] | [address] | [place] | [phone] | | [facility] | | [address] | | | - LABORATORY | | | | + + + + + Comprehensive Metabolic Panel (11/01/2016 7:34 AM PDT) + + + + + [...] | mL/min/1.73m2 | [facility] | | | [facility] | RATE,ESTIMATED | | MEDICAL | | | | mL/min/1.70y0Jkrx than | | CENTER - | | [...] + + + + | Calcium | 8.8 | 8.3 - 10.5 | [facility] | | | | | mg/dL | [facility] | | [facility] | | | [facility] | | | | | | CENTER - | | | | | | LABORATORY | | + + + + + + | Albumin | 2.7 (L) | 3.2 - 5.0 g/dL | [facility] | | | | | | [facility] [...] + + + + | AST | 21Comment: This is an | 10 - 42 [...] + + + + | ALT | 29Comment: This is an | 6 - 45 [...] + + + + | Alkaline | 130 (H)Comment: This is | 40 - 110 U/L | [facility] | | | Phosphatase | an appended report. | | . [facility] | | | | These results [...] + + + + | BUN/Creatin | 21.6 | | [facility] | | | ine [...] + | [facility] | [address] | [place] | [phone] | | [facility] | | [address] | | | - LABORATORY | | | | + + + + + Lactate Dehydrogenase (11/01/2016 7:34 AM PDT) + +-------+ + + + | Component | Value | Ref Range | Performed | Pathologist | | | | | At | Signature | + +-------+ + + + | LDH TOTAL | 124 | 91 - 180 U/L | [facility] | | | | | | [facility] | | | | | | [...] [address] | [place] | [phone] | | [facility] | | [address] | | | - LABORATORY | | | | + + + + + Ferritin (11/01/2016 7:34 AM PDT) + +-------+ + + + | Component | Value | Ref Range | Performed | Pathologist | | | | | At | Signature | + +-------+ + + + | FERRITIN | 119 | 11 - 307 ng/mL | [facility] | | | | | | [facility]. [...] [address] | [place] | [phone] | | [facility] | | [address] | | | - LABORATORY | | | | + + + + + Iron and Transferrin (11/01/2016 7:34 AM PDT) + + + + + + | Component | Value | Ref Range | Performed | Pathologist | | | | | At | Signature | + + + + + + | Iron | 18 (L) | 40 - 150 ug/dL | [facility] | | | | | | [facility] | | | | | [facility]ICAL | | | | | | CENTER - | | | | | | LABORATORY | | + + + + + + | TRANSFERRIN | 229.4 (L) | 240.0 - 480.0 | [facility] | | | | | mg/dL | [facility] | | | | | | MEDICAL | | | | | | CENTER - | | | | | | LABORATORY | | + + + + + + | TIBC | 321 | 235 - 425 ug/dL | [facility] | | | | | | [facility] | | | | | | [facility]ICAL | | | | | | CENTER - | | | | | | LABORATORY | | + + + + + + | % | 5.6 (L) | 20.0 - 55.0 % | [facility] | | | SATURATION | | | [facility] | | [...] [address] | [place] | [phone] | | [facility] | | [address] | | | - LABORATORY | | [...] 4,050 mg in sodium | Given | 11/02/19 | 4,050 mg | 2 mL/hr | | | chloride 0.9% 11 mL CADD PUMP | | 17 12:24 | | | | | chemo infusion [...] | | | | | | on 11/01/16 at 1200, | | | | | | | [...] 150 mg in | New Bag | 11/02/19 | 150 mg | 450 | | | sodium chloride 0.9% 150 mL IVPB | | 17 9:46 | | mL/hr | | | 150 mg, Intravenous, Administer | | AM PDT | | | | | over 20 Minutes, ONCE, Mon | | | | | | | 11/01/16 at 0945, For 1 dose, Do | | | | | | | not shake bag., | | | | | | + +---------+ +--------+-------+---+ +---+---+ | | | +---+---+ + +---------+ +--------+--------+---+ | leucovorin 340 mg in dextrose | New Bag | 11/02/19 | 340 mg | 133.5 | | | 5% 250 mL infusion 340 mg | | 17 10:11 | | mL/hr | | | (rounded from 338 mg = 200 mg/m2 | | AM PDT | | | | | | | | | | | | 1.69 m2 Order-specific BSA), | | | | | | | Intravenous, Administer over 120 | | | | | | | Minutes, ONCE, 11/01/16 at | | | | | | | 1000, For 1 dose, Administer via | | | | | | | y-site with oxaliplatin, | | | | | | + +---------+ +--------+--------+---+ +---+---+ | | | +---+---+ + +---------+ +---+-------+---+ | ondansetron (ZOFRAN) 8 mg, | New Bag | 11/02/19 | | 204 | | | dexamethasone (DECADRON) 4 mg in | | 17 9:19 | | mL/hr | | | sodium chloride 0.9% 50 mL IVPB | | AM PDT | | | | | Intravenous, Administer over 16 | | | | | | | Minutes, ONCE, 11/01/16 at | | | | | | | 0930, For 1 dose, Administer 30 | | | | | | | minutes prior to chemotherapy., | | | | | | + +---------+ +---+-------+---+ +---+---+ | | | +---+---+ + +---------+ +--------+-------+---+ | oxaliplatin (ELOXATIN) 135 mg | New Bag | 11/02/19 | 135 mg | 125 | | | in dextrose 5% 223 mL chemo | | 17 10:11 | | mL/hr | | | infusion 135 mg (rounded from | | AM PDT | | | | | 135.2 mg = 80 mg/m2 | | | | | | | 1.69 m2 Order-specific BSA), | | | | | | | Intravenous, Administer over 2 | | | | | | | Hours, ONCE, Tue11/01/16 at 1000, | | | | | | | [...]
--- OUTSIDE RECORDS SUMMARY | ~2019-06-11 | XMS | Encounter Summary ---
Demographics + + + | Address | [address] | | | [place] [address] | + + + | Home Phone [...] Providers + +------+ + | Care Pet Supplies Salesperson Name | Role | Phone | + [...] | | | | [facility] | [place], [place] | | | | | [place] [address] | [address] | | | | | [place], [place] | | | | | | [address] | | | | | | [phone] | | | +--------+ + + + [...] | | | | | A[place]a [place], | | | | | | [place] [address] | | | | | | [phone] | | | | | | | | +--------+---------+ + + + documented as of this encounter Visit Diagnoses Not on filedocumented in this encounter"
--- OUTSIDE RECORDS SUMMARY | ~2019-06-11 | XMS | Encounter Summary ---
Demographics + + + | Address | [address] | | | [place] [address] | + + + | Home Phone [...] Team Providers + +------+ + | Care Shift Boss Name | Role | Phone | + [...] 2017 | | Center at [facility] [address] | [address] | Review | | | | [address] | [place], | | | | | Mailcode: [place] | [place] [address] | | | | | for Health and | [phone] | | | | | [facility] [address] | | | | | | [place], [place] | | | | | | [address] | | | | | | [phone] | | | +--------+ + + + [...] | | | | | [place]mita [place], | | | | | | [place] [address] | | | | | | [phone] | | | | | | | | +--------+---------+ + + + documented as of this encounter Visit Diagnoses Not on filedocumented in this encounter"
--- OUTSIDE RECORDS SUMMARY | ~2019-06-11 | XMS | Encounter Summary ---
Demographics + + + | Address | [address] | | | [place] [address] | + + + | Home Phone [...] Team Providers + +------+ + | Care Zinc Furnace Charger Name | Role | Phone | + [...] findings, | | 2017 | | at [facility] [address] | [place] [address] | teaching, guidance, | | | | [address] Mailcode: | [place] [facility], | and counseling | | | | [address] [address] | | | | | Health and Healing, | [phone] | | | | | [facility] | | | | | | floor [place], [place] | | | | | | [address] | | | | | | [phone] | | | +--------+ + + + [...] | | | | | Amita [place], | | | | | | [place] [address] | | | | | | [phone] | | | | | | | | +--------+---------+ + + + documented as of this encounter Visit Diagnoses Not on filedocumented in this encounter"
--- OUTSIDE RECORDS SUMMARY | ~2019-06-11 | XMS | Encounter Summary ---
Demographics + + + | Address | [address] | | | [place] [address] | + + + | Home Phone | | + + + | Preferred Language | Unknown | + + + | Marital Status | | + + + | Restorationist Affiliation | Unknown | + + + | Race | Unknown | + + + | Ethnic Group | Unknown | + + + Author + + + | Author | [facility] | | | and [place] | + + + | Organization | [facility] | | | and [place] | + + + | Address | Unknown | + + + | Phone | Unavailable | + + + Support + + + + + | Name | Relationship | Address | Phone | + + + + + | Lamar Phillips | REZA | [place] [address] | | + + + + + Care Team Providers + +------+ + | Care Wedger Name | Role | Phone | + [...] + + | 01/31/ | Hospital | [facility] | [facility], | Rectal cancer (HCC) | | 2017 | Encounter | MED CTR MEDICAL | Mike White MD [address] | | | | | ONCOLOGY CLINIC [address] | [facility] | | | | | [address] [facility] | [place] [address] | | | | | [place] [address] | [phone] | | | | | [phone] | | | +--------+ + + + [...] nt from the original. Hematology/Oncology Progress Note [facility] [place] Pt. Name/Age/: Paulette Byrnes 56 y.o. 1960 Med. Record Number: [id number] Date of admission: 01/31/2017 The patient's primary care provider is Kristian Anderson DO. Identifying Statement: Paulette Byrnes is a 56 y.o. female from [address] [place] [address] with Locally Advanced Rectal Cancer. The patient chart and medications were reviewed in detail and the patient was seen and exam ined. History of Present Illnesses, their Current Assessments and Plans: Problem List Rectal cancer Overview ACTIVE DIAGNOSIS: Locally Advanced Rectal Cancer. 1. Paulette presented to the [facility] emergency room on July 20, 2016 [...] cm within the rectum. Biopsy specimen number [id number] evaluated by Dr. Felipe Nixon of [facility] was notable for a tubular adenoma without high-grade dysplasia or overt carcinoma. This proced ure also included a full colonoscopy through the ostomy were 2 additional polyps were remove d, a tubular adenoma at 35 cm and a hyperplastic polyp at [address] C/A/P at [facility] in [place], [place] demonstrated no evidence of metastatic disease. 4. On September 22, 2016 Dr. Thacker placed in internal jugular Port-A-Cath without complications. 5. MRI of pelvis performed on October 05, 2016 at [facility]: Rectal mass 7.7 cm x 6.2 cm x 9.6 cm in length located within 3 cm of the anal sphincter and 6.4 cm from the anal verge with radi ographic extension though multiple areas of the bowel wall. 6. CT abdomen/pelvis also at [facility] October 05, 2016; large almost completely circumferential r ectosigmoid mass better delineated on the corresponding MRI with adjacent probable abscess. No distant metastases identified. 7. On October 14, 2016 Paulette was evaluated by Dr. Ailyn Wolff and Dr. Shea Mcneill of the [facility] where her case was presented to [...] as well as mutation analysis." Pathological Specimen #[id number] ([facility]). Tubulovillous adenoma with high [...] returned to clinic on 01/31/2017 with a supervisor research shop for follow up after t hree weeks [...] this chart may have been created with [employer] voice recognition software. Occasi onal wrong-word or [...]
--- OUTSIDE RECORDS SUMMARY | ~2019-06-11 | XMS | Encounter Summary ---
Demographics + + + | Address | [address] | | | [place] [address] | + + + | Home Phone | | + + + | Preferred Language | Unknown | + + + | Marital Status | | + + + | Gnosticist Affiliation | Unknown | + + + | Race | Unknown | + + + | Ethnic Group | Unknown | + + + Author + + + | Author | [facility] | | | and [place] | + + + | Organization | [facility] | | | and [place] | + + + | Address | Unknown | + + + | Phone | Unavailable | + + + Support + + + + + | Name | Relationship | Address | Phone | + + + + + | Lamar Phillips | REZA | [place] [address] | | + + + + + Care Team Providers + +------+ + | Care Auto Self Service Station Attendant Name | Role | Phone [...] [address] [place] | | | | | [place], | [place] [address] | | | | | [place] [address] | [phone] | | | | | [phone] | | | +--------+ + + + [...]
--- OUTSIDE RECORDS SUMMARY | ~2019-06-11 | XMS | Encounter Summary ---
Demographics + + + | Address | [address] | | | [place] [address] | + + + | Home Phone | | + + + | Preferred Language | Unknown | + + + | Marital Status | | + + + | Sabianism Affiliation | Unknown | + + + | Race | Unknown | + + + | Ethnic Group | Unknown | + + + Author + + + | Author | [facility] | | | and [place] | + + + | Organization | [facility] | | | and [place] | + + + | Address | Unknown | + + + | Phone | Unavailable | + + + Support + + + + + | Name | Relationship | Address | Phone | + + + + + | Lamar Phillips | REZA | [place] [address] | | + + + + + Care Team Providers + +------+ + | Care Drawing Tracer Name | Role | Phone | + [...] + + | [facility]02/ [facility], | Rectal cancer (HCC) | | 2017 | Encounter | MED CTR MEDICAL | Sirena White MD [address] | | | | | ONCOLOGY CLINIC [address] | [facility] | | | | | [facility] | [place] [address] | | | | | [place] [address] | [phone] | | | | | [phone] | | | +--------+ + + + [...] Mayer MD - 05/02/2017Pick up fluconazole at [facility] and take o ne pill a day [...] nt from the original. Hematology/Oncology Progress Note [facility] [place] Pt. Name/Age/: Paulette Byrnes 56 y.o. 1960 Med. Record Number: [id number] Date of admission: 05/02/2017 The patient's primary care provider is Kristian Kargar, DO. Identifying Statement: Paulette Byrnes is a 56 y.o. female from [address] [place] [address] [place] [facility] with Locally Advanced Rectal Cancer. The patient chart and medications were reviewed in detail and the patient was seen and exam ined. History of Present Illnesses, their Current Assessments and Plans: Problem List Rectal cancer Overview ACTIVE DIAGNOSIS: Locally Advanced Rectal Cancer. 1. Paulette presented to the [facility] emergency room on July 20, 2016 with [...] cm within the rectum. Biopsy specimen number [id number] evaluated by Dr. Felipe Nixon of [facility] was notable for a tubular adenoma without high-grade dysplasia or overt carcinoma. This proced ure also included a full colonoscopy through the ostomy were 2 additional polyps were remove d, a tubular adenoma at 35 cm and a hyperplastic polyp at [address] C/A/P at [facility] in [place], [place] demonstrated no evidence of metastatic disease. 4. On September 22, 2016 Dr. Thacker placed in internal jugular Port-A-Cath without complications. 5. MRI of pelvis performed on October 05, 2016 at [facility]: Rectal mass 7.7 cm x 6.2 cm x 9.6 cm in length located within 3 cm of the anal sphincter and 6.4 cm from the anal verge with radi ographic extension though multiple areas of the bowel wall. 6. CT abdomen/pelvis also at [facility] October 05, 2016; large almost completely circumferential r ectosigmoid mass better delineated on the corresponding MRI with adjacent probable abscess. No distant metastases identified. 7. On October 14, 2016 Paulette was evaluated by Dr. Ailyn Wolff and Dr. Shea Mcneill of the [facility] where her case was presented to their tumor board. Clinical exa m is notable for an overt rectal carcinoma invading into the vagina. 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 Concerns raised by the [facility] Tumor Board were that the prior [...] as well as mutation analysis." Pathological Specimen #[id number] [facility] Tubulovillous adenoma with high grade dysplasia [...] mg/m/day. 14. Multidisciplinary Care Team Conference at [facility] March 10, 2017; "Given borderline resec [...] n communication with Dr. Wolff's office at [facility] to schedule imaging and pre surgical visit. [...] proposed treatment with Cycle #10 FOLFOX;recognized alter north fork forms of treatment, including non-treatment; the risks [...] 64 MG/M2 - DUE TO NEUROPATHY CALL [facility]- ARRANGE FOR PUMP OFF ON Tuesday [...] this chart may have been created with [employer] voice recognition software. Occasi onal wrong-word or [...]
--- OUTSIDE RECORDS SUMMARY | ~2019-06-11 | XMS | Encounter Summary ---
Demographics + + + | Address | [address] | | | [place] [address] | + + + | Home Phone | | + + + | Preferred Language | Unknown | + + + | Marital Status | | + + + | Protestant Affiliation | Unknown | + + + | Race | Unknown | + + + | Ethnic Group | Unknown | + + + Author + + + | Author | [facility] | | | and [place] | + + + | Organization | [facility] | | | and [place] | + + + | Address | Unknown | + + + | Phone | Unavailable | + + + Support + + + + + | Name | Relationship | Address | Phone | + + + + + | Lamar Phillips | REZA | [place] [address] | | + + + + + Care Team Providers + +------+ + | Care Forestry Instructor Name | Role | Phone | [...] [place] | | | | | [address] [place] | [place] [address] | | | | | [place] [address] | [phone] | | | | | [phone] | | | +--------+ + + + [...]
--- OUTSIDE RECORDS SUMMARY | ~2019-06-11 | XMS | Encounter Summary ---
Demographics + + + | Address | [address] | | | [place] [address] | + + + | Home Phone [...] | Organization | [facility] | | | and [place] | + + + | Address | Unknown | + + + | Phone | Unavailable | + + + Support + + + + + | Name | Relationship | Address | Phone | + + + + + | Lamar Phillips | REZA | [place] [address] | | + + + + + Care Team Providers + +------+ + | Care Beading Sawyer Name | Role | Phone | + [...] neoplasm of | Mike C, | [address] | | | | | rectum (HCC) | MD [address] | [place], | | | | | Procedures | [address] | [place] [address] | | | | | [place] | [place], | Phone: | | | | | [place] | [place] [address] | [phone] | | | | | INJECTION, | Phone: | Fax: | | | | | [address] [place] | [phone] | [phone] | | | | | NORMAL | Fax: | | | | | | SALINE | [phone] | | | | | | SOLUTION | | | | | | | INFUS, 500 | | | | | | | ML [place] | | | | | | | NORMAL | | | | | | | SALINE | | | | | | | SOLUTION | | | | | | | INFUS, 250 | | | | | | | ML [place] | | | | | | | STERILE | | | | | | | WATER/SALINE | | | | | | | , 10 ML [place] | | | | | | | CHEMOTHER, | | | | | | | IV PUSH,EA | | | | | | | ADD DRUG [place] | | | | | | | CHEMOTHER, | | | | | | | IV INFUSION, | | | | | | | 1 HR [place] | | | | | | | CHEMOTHER, | | | | | | | IV INFUSION, | | | | | | | EA HR [place] | | | | | | | CHEMOTHER,NO | | | | | | | N-HORMONE | | | | | | | ANTI-NEOPL, | | | | | | | SUB-Q/IM [place] | | | | | | | CHEMOTHER | | | | | | | HORMON | | | | | | | ANTINEOPL | | | | | | | SUB-Q/IM [place] | | | | | | | ONDANSETRON | | | | | | | HCL | | | | | | | INJECTION, 1 | | | | | | | MG [place] | | | | | | | DEXAMETHASON | | | | | | | E SODIUM | | | | | | | PHOS, 1 MG | | | | | | | [place] LORAZEPAM | | | | | | | INJECTION, | | | | | | | 2 MG [place] | | | | | | | OXALIPLATIN, | | | | | | | .5 MG [place] | | | | | | | LEUCOVORIN | | | | | | | CALCIUM | | | | | | | INJECTION, | | | | | | | 50 MG [place] | | | | | | | DIPHENHYDRAM | | | | | | | INE HCL | | | | | | | INJECTIO, 50 | | | | | | | MG [place] | | | | | | | METHYLPREDNI | | | | | | | SOLONE | | | | | | | INJECTION, | | | | | | | 125 MG [place] | | | | | | | ADRENALIN | | | | | | | EPINEPHRINE | | | | | | | INJECT, .1 | | | | | | | MG [place] | | | | | | | ALBUTEROL | | | | | | | COMP CON, 1 | | | | | | | MG [place] | | | | | | | ALBUTEROL | | | | | | | NON-COMP | | | | | | | CON, 1 MG | | | | | | | [place] | | | | | | | INJECTION, | | | | | | | FAMOTIDINE, | | | | | | | 20 MG | | | +--------+--------+ + + + + Encounter Details +--------+ + + + + | Date | Type | Department | Care Team | Description | +--------+ + + + + | 02/07/ | Hospital | [facility] | [facility], | Rectal cancer (HCC) | | 2017 | Encounter | MED CTR CHEMO | Mike White MD [address] | | | | | ED[place] [address] | [address] [place] | | | | | [place], | [place] [address] | | | | | [place] [address] | [phone] | | | | | [phone] | | | +--------+ + + + [...] | Eosinophils | | K/uL | [facility] | | | | | | MEDICAL [...] [address] | [place] | [phone] | | [facility] | | [address] | | | - LABORATORY | | [...] | | | FILTRATION | mL/min/1.73m2 | [facility] | | | [place] | RATE,ESTIMATED | | MEDICAL | | | | mL/min/1.85w5Mjpu than | | CENTER - | | [...] | | | | | mg/dL | [facility] | | | | | | [...] + | [facility] | [address] | [place] | [phone] | | [facility] | | [address] | | | - LABORATORY | | [...] | | | | | | [facility] | | | | | | [...] JACOBSEN. | [address] | [place] | [phone] | | [facility] | | [address] | | | - LABORATORY | | [...]
--- OUTSIDE RECORDS SUMMARY | ~2019-06-11 | XMS | Encounter Summary ---
Demographics + + + | Address | [address] | | | [place] [address] | + + + | Home Phone [...] Providers + +------+ + | Care Nursery Worker Name | Role | Phone | [...] | | | | Leyla Dept | [address] | | | | | | | [address] | | | | | | | [place] | | | | | | | [place], [place] | | | | | | | [address] | | | | | | | Phone: | | | | | | | [phone] | | | | | | | Fax: | | | | | | | [phone] | +--------+--------+ + + + + Encounter Details +--------+---------+ + + + | Date | Type | Department | Care Team | Description | +--------+---------+ + + + | 02/20/ | Office | [facility] | Ailyn Wolff MD | CA of rectum (HCC) | | 2018 | Visit | [facility] [address] | [address] | (Primary Dx) | | | | [address] | [place], | | | | | Mailcode: [place] | [place] [address] | | | | | for Health and | [phone] | | | | | [facility] 2 | | | | | | [place], [place] | | | | | | [address] | | | | | | [phone] | | | +--------+---------+ + + + [...] (10/05/16) no liver metastases rigid proctoscopy by nm (10/05/16) 6 cm from anal verge [facility] on [...] Mendoza pouch staple line [facility] on [...] (OSH, 05/17/17) close to pelvic sidewall [facility] (06/02/17) Recommendations [...] Return/Re-evaluation patient, I spent 12 minutes of vmqc-ni-exfe time, of which m ore than half [...] | | | | | [place], | | | | | | [place] [address] | | | | | | [phone] | | | | | | | [...] | + + + + + | [facility] | [address] | [place] [address] | | | SERVICES, CORE | [address] | | | + + + + + documented in this encounter Visit Diagnoses + + | Diagnosis | + + | 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
--- OUTSIDE RECORDS SUMMARY | ~2019-06-11 | XMS | Encounter Summary ---
Demographics + + + | Address | [address] | | | [place] [address] | + + + | Home Phone | | + + + | Preferred Language | Unknown | + + + | Marital Status | | + + + | Druze Affiliation | Unknown | + + + | Race | Unknown | + + + | Ethnic Group | Unknown | + + + Author + + + | Author | [facility] | | | and [place] | + + + | Organization | [facility] | | | and [place] | + + + | Address | Unknown | + + + | Phone | Unavailable | + + + Support + + + + + | Name | Relationship | Address | Phone | + + + + + | Lamar Phillips | REZA | [place] [address] | | + + + + + Care Team Providers + +------+ + | Care Business Management Intern Name | Role | Phone | [...] [place] | | | | | [address] [place] | [place] [address] | | | | | [place] [address] | [phone] | | | | | [phone] | | | +--------+ + + + [...]
--- OUTSIDE RECORDS SUMMARY | ~2019-06-11 | XMS | Encounter Summary ---
Demographics + + + | Address | [address] | | | [place] [address] | + + + | Home Phone [...] Team Providers + +------+ + | Care Ui Software Engineer Name | Role | [...] | | 2017 | | Center at [facility] [address] | [address] | Received | | | | [address] | [place], (Demographics) | | | | Mailcode: [place] | [place] [address] | | | | | for Health and | [phone] | | | | | [address] [address] | | | | | | [place], [place] | | | | | | [address] | | | | | | [phone] | | | +--------+ + + + [...] | | | | | [place], | | | | | | [place] [address] | | | | | | [phone] | | | | | | | | +--------+---------+ + + + documented as of this encounter Visit Diagnoses Not on filedocumented in this encounter"
--- OUTSIDE RECORDS SUMMARY | ~2019-06-11 | XMS | Encounter Summary ---
Demographics + + + | Address | [address] | | | [place] [address] | + + + | Home Phone | | + + + | Preferred Language | Unknown | + + + | Marital Status | | + + + | Denominational Affiliation | Unknown | + + + | Race | Unknown | + + + | Ethnic Group | Unknown | + + + Author + + + | Author | [facility] | | | and [place] | + + + | Organization | [facility] | | | and [place] | + + + | Address | Unknown | + + + | Phone | Unavailable | + + + Support + + + + + | Name | Relationship | Address | Phone | + + + + + | Lamar Phillips | REZA | [place] [address] | | + + + + + Care Team Providers + +------+ + | Care Classifications Officer Cc/Cm Name | Role | Phone | + [...] + + | 02/14/ | Hospital | [facility] | [facility], | Rectal cancer (HCC) | | 2017 | Encounter | MED CTR MEDICAL | Sirena White MD [address] | | | | | ONCOLOGY CLINIC [address] | [facility] | | | | | [address] [facility] | [place] [address] | | | | | [place] [address] | [phone] | | | | | [phone] | | | +--------+ + + + [...] nt from the original. Hematology/Oncology Progress Note [facility] [place] Pt. Name/Age/: Paulette Byrnes 56 y.o. 1960 Med. Record Number: [id number] Date of admission: 02/14/2017 The patient's primary care provider is Kristian Anderson DO. Identifying Statement: Paulette Byrnes is a 56 y.o. female from [address] [place] [address] with Locally Advanced Rectal Cancer. The patient chart and medications were reviewed in detail and the patient was seen and exam ined. History of Present Illnesses, their Current Assessments and Plans: Problem List Rectal cancer Overview ACTIVE DIAGNOSIS: Locally Advanced Rectal Cancer. 1Jame [facility] [...] cm within the rectum. Biopsy specimen number [id number] evaluated by Dr. Felipe Nixon of [facility] was notable for a tubular adenoma without high-grade dysplasia or overt carcinoma. This proced ure also included a full colonoscopy through the ostomy were 2 additional polyps were remove d, a tubular adenoma at 35 cm and a hyperplastic polyp at [address] C/A/P at [facility] in [place], [place] demonstrated no evidence of metastatic disease. 4. On September 22, 2016 Dr. Thacker placed in internal jugular Port-A-Cath without complications. 5. MRI of pelvis performed on October 05, 2016 at [facility]: Rectal mass 7.7 cm x 6.2 cm x 9.6 cm in length located within 3 cm of the anal sphincter and 6.4 cm from the anal verge with radi ographic extension though multiple areas of the bowel wall. 6. CT abdomen/pelvis also at [facility] October 05, 2016; large almost completely circumferential r ectosigmoid mass better delineated on the corresponding MRI with adjacent probable abscess. No distant metastases identified. 7. On October 14, 2016 Paulette was evaluated by Dr. Ailyn Wolff and Dr. Shea Mcneill of the [facility] where her case was presented to their tumor board. Clinical exa m is notable for an overt rectal carcinoma invading into the vagina. 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 Concerns raised by the [facility] Tumor Board were that the prior [...] as well as mutation analysis." [id number] Tubulovillous adenoma with high grade dysplasia [...] with Dr. Espana with repeat imaging at [facility] on March 02, 2017. Due to complaints [...] indefinitely. FU with Dr. Ailyn wolff at [facility] on March 02, 2017. rq OrderHistory Continuous infusion pump initiation (Not Released) Routine, ONE TIME Starting when released Confirm continuous 5FU 180 mg/m2/day over 72 hours (3 days to complete therapy) OrderHi story Portions of this chart may have been created with Pic[employer] voice recognition software. Occasi onal wrong-word or [...]
--- OUTSIDE RECORDS SUMMARY | ~2019-06-11 | XMS | Encounter Summary ---
Demographics + + + | Address | [address] | | | [place] [address] | + + + | Home Phone [...] Team Providers + +------+ + | Care Sanding Machine Operator Or Tender Name | Role | Phone | [...] | | [address] | [place], | | | | | Mailcode: [place] | [place] [address] | | | | | for Health and | [phone] | | | | | [facility] 2 | | | | | | [place], [place] | | | | | | [address] | | | | | | [phone] | | | +--------+ + + + [...] | | | | | [place], | | | | | | [place] [address] | | | | | | [phone] | | | | | | | | +--------+---------+ + + + documented as of this encounter Visit Diagnoses Not on filedocumented in this encounter"
--- OUTSIDE RECORDS SUMMARY | ~2019-06-11 | XMS | Encounter Summary ---
Demographics + + + | Address | [address] | | | [place] [address] | + + + | Home Phone | | + + + | Preferred Language | Unknown | + + + | Marital Status | | + + + | Restorationist Affiliation | Unknown | + + + | Race | Unknown | + + + | Ethnic Group | Unknown | + + + Author + + + | Author | [facility] | | | and [place] | + + + | Organization | [facility] | | | and [place] | + + + | Address | Unknown | + + + | Phone | Unavailable | + + + Support + + + + + | Name | Relationship | Address | Phone | + + + + + | Lamar Phillips | REZA | [place] [address] | | + + + + + Care Team Providers + +------+ + | Care Air Conditioning Coil Assembler Name | Role | Phone | [...] Other | | 2017 | | MED [facility]ICAL | Mike White MD [address] | | | | | ONCOLOGY CLINIC [address] | [address] [place] | | | | | [address] [place] | [place] [address] | | | | | [place] [address] | [phone] | | | | | [phone] | | | +--------+ + + + [...]
--- OUTSIDE RECORDS SUMMARY | ~2019-06-11 | XMS | Encounter Summary ---
Demographics + + + | Address | [address] | | | [place] [address] | + + + | Home Phone [...] Team Providers + +------+ + | Care Residential Life Director Name | Role | Phone | [...] | Discussion | | 2017 | | [place] [address] [address] | [address] | | | | | [address] | [facility], | | | | | Mailcode: [facility] [address] | | | | | for [facility] and | [phone] | | | | | [facility] 2 | | | | | | [place], [place] | | | | | | [address] | | | | | | [phone] | | | +--------+ + + + [...] | 2018 | Visit | | [address] | | | | | | [place], | | | | | | [place] [address] | | | | | | [phone] | | | | | | | | +--------+---------+ + + + documented as of this encounter Visit Diagnoses Not on filedocumented in this encounter"
--- OUTSIDE RECORDS SUMMARY | ~2019-06-11 | XMS | Encounter Summary ---
Demographics + + + | Address | [address] | | | [place] [address] | + + + | Home Phone | | + + + | Preferred Language | Unknown | + + + | Marital Status | | + + + | Adventist Affiliation | Unknown | + + + | Race | Unknown | + + + | Ethnic Group | Unknown | + + + Author + + + | Author | [facility] | | | and [place] | + + + | Organization | [facility] | | | and [place] | + + + | Address | Unknown | + + + | Phone | Unavailable | + + + Support + + + + + | Name | Relationship | Address | Phone | + + + + + | Lamar Phillips | REZA | [place] [address] | | + + + + + Care Team Providers + +------+ + | Care Kitchen Steward Name | Role | Phone | + [...] + + | 11/29/ | Hospital | [facility] | [place], | | | 2017 | Encounter | MED CTR NUTRITION | Mike White MD [address] | | | | | SERVICES [address] [place] | | | | | [place], | [place] [address] | | | | | [place] [address] | [phone] | | | | | [phone] | | | | | | | [...] of this encounter Progress Notes Ludivina Flores, LAURENN - 11/29/2016 3:04 PM PDTFormatting of this note might be different f rom the original. Medical Nutrition Note SUBJECTIVE: States that she is doing well! She has been making smoothies with Ensure Enli ve and Boost to make milkshakes. She also found some soups at [facility] that she likes. Darcie ng meals is hard for her to do so uses convenience items. Weight is up 5# since the . Discussed easy to make breakfast items and other meals ideas to help with fatigue of cooking . Has a colostomy and plan is to start radiation. OBJECTIVE: Diet: high protein high calorie Wt Readings from Last 3 Encounters: 11/29/16 66.134 kg (145 lb 12.8 oz) 11/15/16 63.821 kg (140 lb 11.2 oz) 11/01/16 62 kg (136 lb 11 oz) Ht Readings from Last 1 Encounters: 10/18/16 1.626 m (5' 4") BMi 25 Labs: Lab Results Component Value Date ALBUMIN 3.1* 11/29/2016 Pt is currently able to meet her nutritional needs orally. Encouraged her to continue to u se both the clear liquid nutritional supplement and the original flavor to help maintain her weight. Will follow up in the cancer center. Time spent: 30 minutes Thank you for the referral, Ludivina Flores RDN 11/29/2016 15:05 documented in this encounter Plan of Treatment Not on filedocumented as of this encounter Visit Diagnoses Not on filedocumented in this encounter
--- OUTSIDE RECORDS SUMMARY | ~2019-06-11 | XMS | Encounter Summary ---
Demographics + + + | Address | [address] | | | [place] [address] | + + + | Home Phone [...] Providers + +------+ + | Care Manager Internet Retails Sales Name | Role | Phone | [...] | | | | [facility] | [place], [place] | | | | | [place] [address] | [address] | | | | | [place], [place] | | | | | | [address] | | | | | | [phone] | | | +--------+ + + + [...] | | | | | [place], | | | | | | [place] [address] | | | | | | [phone] | | | | | | | | +--------+---------+ + + + documented as of this encounter Visit Diagnoses Not on filedocumented in this encounter"
--- OUTSIDE RECORDS SUMMARY | ~2019-06-11 | XMS | Encounter Summary ---
Demographics + + + | Address | [address] | | | [place] [address] | + + + | Home Phone [...] Team Providers + +------+ + | Care Center Specialists Name | Role | Phone | + [...] | | | | [facility] | [place], [place] | | | | | [place] [address] | [address] | | | | | [place], [place] | | | | | | [address] | | | | | | [phone] | | | +--------+ + + + [...] | | 18 | | | | [id number], Skin prep: | | | | | | | 3M 3344 (30/mo), Adh | | | | | | | Rem HO 7760 | | | | | | | (1box/mo), Rings: HO | | | | | | | 8805 (10/mo), | | | | | | | [place]odorant: [place] [address] | | | | | | | (60/mo), Pwdr: CT | | | | | | | [id number] (1oz/mo), | | | | | | | Belt: Lrg (2/mo) | | | | | | | and Irrigation [place] | | | | | | | [id number], [place] | | | | | | | 263871 | | | | | + + [...] | | | | | [place], | | | | | | [place] [address] | | | | | | [phone] | | | | | | | | +--------+---------+ + + + documented as of this encounter Visit Diagnoses Not on filedocumented in this encounter"
--- OUTSIDE RECORDS SUMMARY | ~2019-06-11 | XMS | Encounter Summary ---
Demographics + + + | Address | [address] | | | [place] [address] | + + + | Home Phone [...] + | Organization | [facility] | | | and [place] | + + + | Address | Unknown | + + + | Phone | Unavailable | + + + Support + + + + + | Name | Relationship | Address | Phone | + + + + + | Lamar Phillips | REZA | [place] [address] | | + + + + + Care Team Providers + +------+ + | Care Sand Drier Name | Role | Phone | + [...] Other | | 2017 | | MED [facility] | Mike White MD [address] | | | | | ON[address]OGY CLIN[address] | [address] [place] | | | | | [place] | [place] [address] | | | | | [place] [address] | [phone] | | | | | [phone] | | | +--------+ + + + [...]
--- OUTSIDE RECORDS SUMMARY | ~2019-06-11 | XMS | Encounter Summary ---
Demographics + + + | Address | [address] | | | [place] [address] | + + + | Home Phone [...] Team Providers + +------+ + | Care Edi Consultant Name | Role | Phone | [...] | 2018 | on | Center at [facility] [address] | [address] | Received (Out of | | | | [address] | [place] [facility] | | | | Mailcode: [place] | [place] [address] | Authorization ) | | | | for Health and | [phone] | | | | | [facility] 2 | | | | | | [place], [place] | | | | | | [address] | | | | | | [phone] | | | +--------+ + + + [...] | | | | | [place], | | | | | | [place] [address] | | | | | | [phone] | | | | | | | | +--------+---------+ + + + documented as of this encounter Visit Diagnoses Not on filedocumented in this encounter"
--- OUTSIDE RECORDS SUMMARY | ~2019-06-11 | XMS | Encounter Summary ---
Demographics + + + | Address | [address] | | | [place] [address] | + + + | Home Phone [...] Team Providers + +------+ + | Care Law Researcher Name | Role | Phone | + [...] | 2018 | Encounter | Center at [facility] [address] | [address] | | | | | [address] | [place], | | | | | Mailcode: [place] | [place] [address] | | | | | for Health and | [phone] | | | | | [facility] 2 | | | | | | [place], [place] | | | | | | [address] | | | | | | [phone] | | | +--------+ + + + [...] | | | | | [place], | | | | | | [place] [address] | | | | | | [phone] | | | | | | | | +--------+---------+ + + + documented as of this encounter Visit Diagnoses Not on filedocumented in this encounter"
--- OUTSIDE RECORDS SUMMARY | ~2019-06-11 | XMS | Encounter Summary ---
Demographics + + + | Address | [address] | | | [place] [address] | + + + | Home Phone [...] Organization | [facility] | | | and [place] | + + + | Address | Unknown | + + + | Phone | Unavailable | + + + Support + + + + + | Name | Relationship | Address | Phone | + + + + + | Lamar Phillips | REZA | [place] [address] | | + + + + + Care Team Providers + +------+ + | Care Member Service Specialist Name | Role | Phone | + +------+ + | Kristian Anderson DO | PCP | | + +------+ + Encounter Details +--------+ + + + + | Date | Type | Department | Care Team | Description | +--------+ + + + + | 05// | Hospital | [facility] | Joel Alfaro DO | | | 2017 | Encounter | MED CTR RADIATION | [address] | | | | | ONCOLOGY [address] | [place], [place] | | | | | [place], | [address] | | | | | [place] [address] | | | | | | [phone] | | | +--------+ + + + [...] cancer. She is a 56-year-old woman from [place], [place] who has had an intermitt ent history of rectal bleeding over 3 years progressing with rectal urgency, weight loss an d progressive pain leading her to the [facility] emergency department on July 19 16. [...] then seen by Dr. Ailyn Wolff at [facility] regarding surgical management on October 05, 2016 [...] at the GI multidisciplinary tumor Board at [facility] with recommendations for repeat exam under anesthesia [...] states that she was called heather segura [facility] stating that she would be seen by [...] purposes. After the multidisciplinary GI team at [facility] reviewed her case, a recomme ndation for [...] to the original plan based upon the [facility] recommendation for neoadjuvant chemotherapy followed by concurrent chemoradi otherapy followed by surgery. We will contact [facility] to verify if there has been a [...] NITESHR Radiation Oncologist Department of Radiation Oncology [facility] Electronically signed by Joel Alfaro D.O. This note was transcribed using Volumental speech recognition software. As a result, there ma y be unintended for medical and/or spelling errors. Every attempt is made to correct dicta tion. If there are any questions or errors please contact our office. CSN: [id number] signed by Joel Alfaro DO at 12/16/2016 1:21 PM PDTdocumichael stewart in this encounter Plan of Treatment Not on filedocumented as of this encounter Visit Diagnoses Not on filedocumented in this encounter"
--- OUTSIDE RECORDS SUMMARY | ~2019-06-11 | XMS | Encounter Summary ---
Demographics + + + | Address | [address] | | | [place] [address] | + + + | Home Phone [...] Team Providers + +------+ + | Care Petroleum Sampler Name | Role | Phone | + [...] | | 2018 | | Center at [facility] [address] | [address] | Review | | | | [address] | [place], | | | | | Mailcode: [place] | [place] [address] | | | | | for Health and | [phone] | | | | | [facility] [address] | | | | | | [place], [place] | | | | | | [address] | | | | | | [phone] | | | +--------+ + + + [...] | | | | | [place], | | | | | | [place] [address] | | | | | | [phone] | | | | | | | | +--------+---------+ + + + documented as of this encounter Visit Diagnoses Not on filedocumented in this encounter"
--- OUTSIDE RECORDS SUMMARY | ~2019-06-11 | XMS | Encounter Summary ---
Demographics + + + | Address | [address] | | | [place] [address] | + + + | Home Phone [...] + | Organization | [facility] | | | and [place] | + + + | Address | Unknown | + + + | Phone | Unavailable | + + + Support + + + + + | Name | Relationship | Address | Phone | + + + + + | Lamar Phillips | REZA | [place] [address] | | + + + + + Care Team Providers + +------+ + | Care Weighbridge Operator Name | Role | Phone | + +------+ + | Kristian Anderson DO | PCP | | + +------+ + Encounter Details +--------+ + + + + | Date | Type | Department | Care Team | Description | +--------+ + + + + | 10/14/ | Orders Only | [facility] | Janel, | Rectal cancer (HCC) | | 2017 | | MED CTR MEDICAL | Mike White MD [address] | (Primary Dx) | | | | ONCOLOGY CLINIC [address] [place] | | | | | [address] [place] | [place] [address] | | | | | [place] [address] | [phone] | | | | | [phone] | | | +--------+ + + + [...]
--- OUTSIDE RECORDS SUMMARY | ~2019-06-11 | XMS | Encounter Summary ---
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 TECHNICIAN | Phone: | Phone: | | | | | LA PART | [phone] | [phone] | | | | | REMOVAL | Fax: | Fax: | | | | | COLON W | [phone] | [phone] | | | | | COLOPROCTOST | | | | | | | LORI LA PART | | | | | | | REMOVAL | | | | | | | COLON W | | | | | | | COLOPROC,COL | | | | | | | OST LA | | | | | | | ILEOSTOMY/JE | | | | | | | JUNOSTOMY,NO | | | | | | | NTUBE LA | | | | | | | REMOVE | | | | | | | VAGINA WALL, | | | | | | | PARTIAL LA | | | | | | | REMOVE | | | | | | | VAGINA | | | | | | | TISSUE/PARTI | | | | | | | AL LA | | | | | | | [...] | Malignant | Marty Toledo MD | [address] | | | | | neoplasm of | [place] [address] | | | | | rectum | SURGICAL | [place] | | | | | | [facility] | [place], [place] | | | | | | [address] | [address] | | | | | | AVE | Phone: | | | | | | [place], | [phone] | | | | | | [place] [address] | Fax: | | | | | | Phone: | [phone] | | | | | | [phone] | | | | | | | Fax: | | | | | | | [phone] | | +--------+--------+ + + + + Encounter Details +--------+---------+ + + + | Date | Type | Department | Care Team | Description | +--------+---------+ + + + | 03/02/ | Office | Digestive Health | Ailyn Wolff MD | Rectal cancer (HCC) | | 2017 | Visit | Center at [facility] [address] | [address] | (Primary Dx) | | | | [address] | Amita [facility], | | | | | Mailcode: [facility] [address] | | | | | [facility] and | [phone] | | | | | [place] [address] | | | | | | [place], [place] | | | | | | [address] | | | | | | [phone] | | | +--------+---------+ + + + [...] - 03/02/2017 1:40 PM PDTPATIENT SURGERY INFORMATION [facility] General Surgery Office Toll-free: , request [facility] Surgery Date: 04/21/2017 Procedure: Low anterior resection with posterior vaginectomy Surgeon Name: Dr. Ailyn Wolff MD DIRECTIONS FOR SURGERY DIET You should have clear liquids only for the entire day prior to surgery, no solid food. Kailee r liquids include anything you can see through, like water, fernando zack, lemon-[place] soft drin ks, apple juice, tea, Gatorade/sports [...] have questions please contact the clinic at [phone], if it is after clinic h ours please call the electric power machine operator at [phone] and ask to speak to the [place] [facility] Resident production hardener. CAUTION! Please call the clinic if you [...] number may refer you to the hospital electric power machine operator ); please ask to speak to the general surgery resident production hardener for Dr Javed. MEDICATIONS You may take [...] e. Smoking is not allowed on the [facility] campus. If you are a smoker, [...] anyone by 3:00 PM please call for [id number]. PARKING Parking for patients and visitors is available in the [facility] Parking structure located across from the emergency department. Patient parking is available on level 1 and 3. Metere d parking is available on the top level. CHECKING IN FOR SURGERY Go in the main entrance and check in at the Admitting Desk 9th floor of [facility] TRANSPORTATION You will require transportation home on the day of discharge. Pain medications and physical activity restrictions may limit your ability to drive safely. CANCELLING YOUR PROCEDURE Please notify the general surgery office at [phone] as soon as possible should you nee [...] prior to your surgery. PRODUCTS CONTAINING ASPIRIN [place], Anacin, Anexsia with Codeine, Andynos, Aspirin, Aspirin suppositories, Ascrip tin, Aspergum, Axotal, B-A-C, Baby Aspirin, Tony, BC Powder, Bexophene, Buffaprin, Bufferin , Buffinol, Cama-Arthritis Strength, Congespirin, Minden, Coricidin, Damason, Darvon, Dristan, Annetta-Gesic, Digel, Dolprin #3 Tablets, Donatab, Doxaphene, Duragesic, Easprin, Ecotrin, Emag rin Forte, Emiprin, Emprazil, Equagesic, Equazine M, Excedrin, Fiogesic, Fiorgen PH, Fiorice t, Fiorinal, 4-Way Cold Tablet Gemnisyn, Indocin, Liquprin, Lortab ASA, Magnaprin, Marnal, Meprobamate, Midol, Momentum, N orgesic, Waldo, Orphengesic, Pabalate, P-A-C, Percodan, Presalin, Robaxasil, Roxiprin, Brian eto, Salocol SK-65 Compound, Sine-Aid, Sine-Off,, Tatamy, Supac, Talwin Compound, Trigesic, Tolectin , Traiminicin, Vanquish, ZORprin, Zomax PRODUCTS CONTAINING IBUPROFEN Advil, Aleve, Haltran, Medipren, Midol, Motrin, Naproxyn, Nuprin, Rufen OTHER PRODUCTS WHICH MAY PROMOTE BLEEDING Vitamin E, Gingko Biloba, Marine Fatty Acids, [place]-3 Fish Oil Supplements Registration Process for all [...] starting with clears, need for PMC appt (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 Pt denies further questions. I encouraged the pt to call with any questions, parveen rns, or new symptoms at [phone]. Bartolo, Ailyn White MD - 017 1:40 [...] rectal bleeding on 07/19/[address] [facility] ED CT abdomen/pelvis with IV contrast [...] anal verge presented at the [facility] Multidisciplinary GI Oncology Conference on [...] pouch staple line presented at [facility] Multidisciplinary GI Oncology Conference on [...] smoking on 07/19/16 Plan: Present at the [facility] Multidisciplinary GI Oncology Conference on [...] bleeding on 07/19/16. She went to the [facility] ED. CT abdomen/pelvis with IV contrast [...] anal verge presented at the [facility] Multidisciplinary GI Oncology Conference on [...] breast Hypertension Mother Heart Attack Father from [place] at age 52 Diabetes Father Heart Attack Brother Coronary Artery Disease Brother NATHAN x 4 Social History Social History Marital status: Single Spouse name: Number of children: 1 Years of education: 12 Occupational History [employer] Social History Main Topics Smoking status: Former [...] established patient, I spent 38 minutes of pnps-ny-iwig time, of which more than half the time was spent in counseling. 18 minute document review cc: Dr. Alfaro, Radiation Oncology at [place] in [place]. Hemalatha Browning MD - 03/02/2017 1:40 PM [...] in her brother and father ( from [place] at age 52); and Hypertension in her [...] | | | | | [place], | | | | | | [place] [address] | | | | | | [phone] | | | | | | | | +--------+---------+ + + + documented as of this encounter Visit Diagnoses + + | Diagnosis | + + | Rectal cancer (HCC) - Primary Malignant neoplasm of rectum | + + documented in this encounter
--- OUTSIDE RECORDS SUMMARY | ~2019-06-11 | XMS | Encounter Summary ---
Demographics + + + | Address | [address] | | | [place] [address] | + + + | Home Phone [...] Team Providers + +------+ + | Care Stone Cutter Name | Role | Phone | [...] Visit | Medicine Clinic at | R, SHADOWGRAPH OPERATOR [address] | Dx); Rectal cancer | | | | [facility] 4th Floor [address] | ([facility]); Former | | | | [address] | [place], [place] | smoker; Anxiety and | | | | Mailcode: [facility] | [address] | depression; Other | | | | [facility] | [phone] | chronic pain; | | | | and Healing, | | Hypertension, | | | | Building 1,4th Floor | | unspecified type; | | | | [place], [place] | | Diabetes mellitus | | | | [address] | | screening | | | | [phone] | | | +--------+---------+ + + + [...] | | IV | 07/02/17; 1217 | CUSHION MAKER HAND | | +--------+ + + + | [...] or walk. Surgery check-in location: Admitting - [facility], ninth floor [facility] Surgery Check in Time: The Preoperative Medicine [...] it is after office hours, call the [facility] booster station operator at [phone] and ask them to page him or [...] Chronic low back/left LQ pain - takes Bauxite 5-325, 1-2 tabs/day Bone spurs in neck [...] fluid and anterior hernia) - 1-2 tabs Bauxite as needed daily) Chron ic pain > [...] breast Hypertension Mother Heart Attack Father from [place] at age 52 Diabetes Father Heart Attack [...] Chronic low back/left LQ pain - takes Bauxite 5-325, 1-2 tabs/day. Continue as needed. Bone [...] to this patient's care. Zeny Riley NP [facility] PREOPERATIVE MEDICINE CLINIC AT [facility] 4TH FLOOR [address] [place] [address] I counseled the pt [...] | | | | | Suzy [place], | | | | | | [place] [address] | | | | | | [phone] | | | | | | | | +--------+---------+ + + + documented as of this encounter Procedures + +--------+ + + + | Procedure Name | Priori | Date/Time | Associated Diagnosis | Comments | | | ty | | | | + +--------+ + + + | [place] COLLECTION VENOUS | Routin | 06/13/2017 | [...] DEPT OF | [address] | [place], [place] | | | CARDIOLOGY | [address] | [address] | | + + + + + [...] [facility] | [address] | [place] [address] | | | SERVICES, | [address] [...] [facility] | [address] | [place] [address] | | | SERVICES, CORE | SUZY [...] | [facility] | | considered for monitoring regional intermodal truck driver glycemic control in patients with: | LABORATORY [...] [facility] | [address] | [place] [address] | | | SERVICES, SPECIAL | [address] [...] | + + + + + | [facility] | [address] | [place] [address] | | | SERVICES, | [address] [...] [facility] | [address] | [place] [address] | | | SERVICES, | [address] [...] | + + + + + | [facility] | [address] | [place] [address] | | | CAR TELLO | SUZY [...] + + + + + | [facility] | [address] | [place] [address] | | | SERVICES, CAR | SUZY [...]
--- OUTSIDE RECORDS SUMMARY | ~2019-06-11 | XMS | Encounter Summary ---
Demographics + + + | Address | [address] | | | [place] [address] | + + + | Home Phone [...] Team Providers + +------+ + | Care Healthcare Architect Name | Role | Phone | [...] + + | 06/30/ | Hospital | [facility] [address] | Ailyn Wolff MD | | | 2017 - | Encounter | [address] | [address] | | | | | 12C/UHS31 [facility] | [place], | | | 07/[birth year]/ | | [facility], | [place] [address] | | | 2016 | | [place] [address] | [phone] | | | | | [phone] | | | +--------+ + + + [...] might be different fro m the original. Formerly [facility], 1928–1983 & [facility] Discharge Summary Green Service Admit [...] posterior vaginal wall. 5. Placement of a 19-British Albert drain through the right lower quadrant [...] narcotic pain medications, please call the clinic ([phone] ) by 2 pm on for any [...] hours by calling the surgery office at [phone]. After hours, weekends and holidays, you may call the hospital slurry control operator helper at [phone] and have the immigration case manager Green Team for general surgery paged. Constipation: [...] your instructions. Acetaminophen (Tylenol): You may use fxil-crm-hughkld (OTC) acetaminophen for milder pain. Do not [...] medications with Hydrocodone such as Vicodin or [place]. It is important to keep track of [...] Phone Center 07/27/2017 3:40 PM Ailyn Wolff [facility] Center at [facility] 6th Floor [phone] Formerly [facility] Schedule the following appointment(s) when you [...] to discharge) Natalie Poon MD Surgery, PGY1 Formerly [facility], [facility] & [facility] Associated attestation - Ailyn Wolff [...] through Care Everywhere.Bowel Resection : Open: Post-op (Tuvaluan)Post-op Infection (Tuvaluan)Ureteral Stent Placement: Post-op (Sathya yoo)documented in this [...] | | 18 | | | | [id number], Skin prep: | | | | | | | 3M 3344 (30/mo), Adh | | | | | | | Rem HO 7760 | | | | | | | (1box/mo), Rings: HO | | | | | | | 8805 (10/mo), | | | | | | | [place] [address] | | | | | | | (60/mo), Pwdr: CT | | | | | | | 716911 (1oz/mo), | | | | | | | Belt: Lrg (2/mo) | | | | | | | and Irrigation CO | | | | | | | 441369, Sleeve CO | | | | | | | 169903 | | | | | + + [...] Physician: Ailyn Wolff MD Patient: PAULETTE BYRNES [id number] 24H events/Subjective: Epidural removed yesterday, pain controlled. [...] Tim Davila MD General Surgery, PGY-1 Pager: [phone] Associated attestation - Ailyn Wolff MD - [...] BLOCK PROGRESS NOTE 07/04/2017 Author: Andree English SOFTWARE APPLICATIONS DESIGNER Epidural day # 4 POD# 4. Status [...] Andree English NP Adult Pain Service Pager [phone] Team Pager [phone] Tim See MD - 5:31 AM PST Green Surgery Progress Note Hospital Day: 4 Attending Physician: Ailyn Wolff MD Patient: PAULETTE BYRNES [id number] 24H events/Subjective: Epidural still functioning, removed later [...] Tim Davila MD General Surgery, PGY-1 Pager: [phone] Associated attestation - Ailyn Wolff MD - [...] 50 mL/hr intravenous CONTINUOUS 50 mL/hr (07/03/17 2595) ropivacaine 0.1 %-HYDROmorphone 10 mcg/mL epidural infusion [...] full diet Alta Woods MD Team Pager [phone] signed by Alta Woods MD at 07/03/2017 [...] this patient. Alta Woods MD Team Pager [phone] signed by Alta Woods MD at 07/02/2017 [...] [place] [phone] with questions. Dorene Carter (Mr.) MSN, ACNP- Nurse Practitioner [facility] [address] [place] [address] Vicki Erwin M D - 07/01/2017 6:04 AM PSTAPS brief note: Evaluated epidural at bedside. Catheter intact h/e filter broken resulting in leak. Replace d filtered and resumed epidural infusion. Vicki Emanuel MD APS pg [id number] signed by Vicki Emanuel MD at 07/10/2017 3:36 PM PSTHasl Natalie mckeon MD - 07/01/2017 5:36 AM PST Green Surgery Progress Note Hospital Day: 1 Attending Physician: Ailyn Wolff MD Patient: PAULETTE BYRNES [id number] 24H events/Subjective: Pt comfortable in bed this [...] 07/01/17 0659 07/01/17699 - 07/02/17 0659 Shift 0946-5653 6151-1160 8340-9004 24 Hour Total 4423-7757 2443-1132 6390-1286 24 Hour Tot al I N T [...] Poon MD PGY-1 Department of General Surgery [id number] Ivette Shannon MD - 06/30/2017 11:02 PM [...] Jade MD Otolaryngology-Head & Neck Surgery PGY-1 [id number] documented in this encount er Plan of Treatment +--------+---------+ + + + | Date | Type | Specialty | Care Team | Description | +--------+---------+ + + + | 06/18/ | Office | Surgery | Ailyn Wolff MD | | | 2019 | Visit | | [address] | | | | | | [place], | | | | | | [place] [address] | | | | | | [phone] | | | | | | | [...] CHG), | e | 10:19 AM | ([facility]) | procedure are in the [...] PLACEMENT | ve | 8:03 AM | ([facility]) | | | | Surgic [...] + + | Performing | Address | City/State[facility] | Phone Number | | Organization | | | | + + + + + | [facility] | [address] | [place], [place] | | | [facility] | [address] | [address] | | | TESTS | | | [...] [place] | [address] | [place], [place] | | | [facility] [place] | [facility] | [address] | | | TESTS | | | [...] (H) | 70 - 99 mg/dL | [facility] - | | | GLUCOSE, | | [...] [place] | [address] | [place], [place] | | | [facility] | [address] | [address] | | | TESTS | | | [...] [place] | [address] | [place], [place] | | | [facility] [place] [facility] | [address] | [address] | | | TESTS | | | [...] [place] | [address] | [place], [place] | | | [facility] [place] | [facility] | [address] | | | TESTS | | | [...] (H) | 70 - 99 mg/dL | [facility] - | | | GLUCOSE, | | [...] [place] | [address] | [place], [place] | | | [facility] | [address] | [address] | | | TESTS | | | [...] + + | Performing | Address | City/State[facility] | Phone Number | | Organization | | | | + + + + + | [facility] | [address] | [place], [place] | | | [facility] [place] | [facility] | [address] | | | TESTS | | | [...] [place] | [address] | [place], [place] | | | [facility] | [facility] | [address] | | | TESTS | | | [...] (H) | 70 - 99 mg/dL | [facility] - | | | GLUCOSE, | | [...] N[place] | [address] | [place], [place] | | | [facility] | [address] | [address] | | | TESTS | | | [...] [place] | [address] | [place], [place] | | | [facility] [place] | [facility] | [address] | | | TESTS | | | [...] - [place] | [address] | [place], [place] | | | [facility] | [facility] | [address] | | | TESTS | | | [...] (L) | 70 - 99 mg/dL | [facility] - | | | GLUCOSE, | | [...] N[place]OL[place] | [address] | [place], [place] | | | [facility] | [address] | [address] | | | TESTS | | | [...] [place] | [address] | [place], [place] | | | [facility] | [address] | [address] | | | TESTS | | | [...] [place] | [address] | [place], [place] | | | [facility] | [facility] | [address] | | | TESTS | | | [...] (L) | 70 - 99 mg/dL | [facility] - | | | GLUCOSE, | | [...] + + + | [facility] | [address] | [place], [place] | | | [facility] | [address] | [address] | | | TESTS | | | [...] [place] | [address] | [place], [place] | | | [facility] | [address] | [address] | | | TESTS | | | [...] [place] | [address] | [place], [place] | | | [facility] | [address] | [address] | | | TESTS | | | [...] [place] | [address] | [place], [place] | | | [facility] | [address] | [address] | | | TESTS | | | [...] [place] | [address] | [place], [place] | | | [facility] [place] | [facility] | [address] | | | TESTS | | | [...] - [place] | [address] | [place], [place] | | | [facility] | [facility] | [address] | | | TESTS | | | [...] (H) | 70 - 99 mg/dL | [facility] - | | | GLUCOSE, | | [...] [place] | [address] | [place], [place] | | | [facility] | [address] | [address] | | | TESTS | | | [...] [place] | [address] | [place], [place] | | | [facility] [place] | [facility] | [address] | | | TESTS | | | [...] [facility] | [address] | [place], [place] | | | [facility] [place] | [facility] | [address] | | | TESTS | | | [...] (H) | 70 - 99 mg/dL | [facility] - | | | GLUCOSE, | | [...] [place] | [address] | [place], [place] | | | [facility] | [address] | [address] | | | TESTS | | | [...] [place] | [address] | [place], [place] | | | [facility] [place] | [facility] | [address] | | | TESTS | | | [...] | + + + + + | [facility] | [address] | [place] [address] | | | SERVICES, CORE | [address] [...] | + + + + + | [facility] | [address] | [place] [address] | | | SERVICES, CORE | PARK [...] + | [facility] | [address] | [place] [address] | | | SERVICES, CORE | SUZY [...] | | | LABORATORY | | | [facility] | | | SERVICES, | | [...] | + + + + + | [facility] | [address] | [place] [address] | | | SERVICES, CORE | SUZY [...] (H) | 70 - 99 mg/dL | [facility] - | | | GLUCOSE, | | [...] + + + | [facility] | [address] | [place], [place] | | | [facility] | [address] | [address] | | | TESTS | | | [...] [place] | [address] | [place], [place] | | | [facility] | [address] | [address] | | | TESTS | | | [...] - [facility] | [address] | [place], [place] | | | [facility] | [address] | [address] | | | TESTS | | | [...] + + + | [facility] | [address] | [place], [place] | | | [facility] | [address] | [address] | | | TESTS | | | [...] [place] | [address] | [place], [place] | | | [facility] | [facility] | [address] | | | TESTS | | | [...] [facility] | [address] | [place] [address] | | | SERVICES, CAR | [address] | | | + + + + + OPERATION RECORD (06/30/2017 7:26 PM PST) + + | Procedure Note | + + | Ailyn Wolff MD - 06/30/2017 7:26 PM PST Date of Service: 06/30/2017 Attending | | Surgeon: Ailyn Wolff MD Deputy Coroner Investigator(s): Sae Slater MD | | Donna Gonzalez [...] resection with primary anastomosis.8. Placement of a 19-British Albert drain through the | | right lower quadrant wall into the presacral space.9. 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 Placement of anthony drain into former rectocutaneous | | trehvsj50. Cystoscopy and bilateral ureteral stent placement with [...] | colostomy. On September 02, 2016, Dr. Thacekr performed colonoscopy via the anus to the [...] anal verge. I presented her at the [facility] Multidisciplinary GI Oncology | | conference on [...] fistula tract. We performed a small bowel yuub-vl-jsia | | stapled anastomosis. Note, the abscess [...] closed the mesentery with a 3-0 Polysorb pbcpvo-cl-vganq suture. The anastomosis | | was widely [...] the external sphincter with interrupted 0 Polysorb hjmgqz-xj-iatbn sutures. We closed | | the deep [...] #1 Maxon sutures x2. We placed a 19-British Albert | | drain through the right [...] | | 06/30/2017 17:03:37DT: 06/30/2017 19:26:50Job #: [id number] | | | | /[id number] | + + CAPILLARY BLOOD GLUCOSE (NO [...] [place] | [address] | [place], [place] | | | [facility] | [address] | [address] | | | TESTS | | | [...] [place] | [address] | [place], [place] | | | [facility] | [address] | [address] | | | TESTS | | | [...] [place] | [address] | [place], [place] | | | [facility] | [address] | [address] | | | TESTS | | | | + + + + + PROCEDURE NOTE (06/30/2017 5:14 PM PST) + + | Procedure Note | + + | Sae Slater MD - 06/30/2017 5:14 PM PST BRIEF OPERATIVE NOTEProcedure Date: | | 06/30/2017Author: Sae Slater [facility] Physician: Dr. Ailyn Suhts: Sae | | MD Nohemy, F2CyianDonna Gonzalez MD, [id number] Diagnosis: rectal cancerPostoperative | | Diagnosis: sameProcedure [...] | | Abdominal precautionsInitial surgical contact: Green clinical nursing intern. Sae Slater MDGeneral | | Surgery, [id number] | |2. En bloc resection of rectum, [...] | | | |Initial surgical contact: Green clinical nursing intern. | | | | | |Sae Slater MD | |General Surgery, R5 | |Pager [phone] | + + PROCEDURE NOTE (06/30/2017 2:44 PM PST) + + | Procedure Note | + + | Delilah Jerome MD - 06/30/2017 2:44 PM PST OPERATIVE NOTE Procedure Date: | | 06/30/2017 Author: Delilah Vale MD Attending Physician: Harjit Clark Assistants: | | Dleilah Vale MD. Preoperative Diagnosis: Rectal cancer, history [...] c/o | | flank pain). Delilah Calvert [id number] of Urology | | | |Indications: 56 [...] | | | |Delilah Vale | |Pager [phone] | |PGY-5 | |Department of Urology | [...] + + | [facility] | [address] [facility] [address] | [place], [place] | | | [facility] | [address] | [address] | | | TESTS | | | [...] placementSURGEON: Juan Luis, | | MD Princess MASSOTHERAPIST: Natalie Poon MDANESTHESIA: General. ESTIMATED BLOOD LOSS: [...] usual | | sterile fashion. A 21 turkish cystoscope was inserted into the urethra atraumatically. [...] [place]ve PGY - 1Department of Urology PGR [id number] | |The patient was brought to the [...] the usual sterile | |fashion. A 21 turkish cystoscope was inserted into the urethra atraumatically. [...] was then turned back over to the [facility]'s hospital surgical team for their portion of the procedure. Dr. Sánchez was present and directed t he entirety of the case. | | | |The attending of record is Juan Luis Sánchez | | | | | |Natalie Poon MD | |PGY - 1 | |Department of Urology | |PGR [id number] | + + ABG-FULL ABL, POC (06/30/2017 [...] [place] | [address] | [place], [place] | | | [facility] | [facility] | [address] | | | TESTS | | | [...] - [place] | [address] | [place], [place] | | | [facility] | [address] | [address] | | | TESTS | | | [...] + + + | [facility] | [address] | [place], [place] | | | [facility] | [address] | [address] | | | TESTS | | | [...] | | | | | | (pT): nK3Cshvdvdt Lymph | | | | | | Nodes (pN): | | | | | | [id number] of regional | | | | | [...] | | | | | | record #[id number]. | | | | | | A: [...] | | | | | | diameter. Home Care Coordinator | | | | | | sections [...] identified. | | | | | | Home Care Coordinator sections | | | | | | [...] additional | | | | | | sales representative health insurance sections | | | | | | [...] adipose | | | | | | [id number], anal | | | | | | [...] | | | | | remnantF1 and M9ierfj | | | | | | bowel [...] | + + + + + | [facility] | [address] | [place] [address] | | | PATHOLOGY | [address] [...] PST | | | | | on [facility] 06/30/17 at 1845, Until | | [...]
--- OUTSIDE RECORDS SUMMARY | ~2019-06-11 | XMS | Encounter Summary ---
Demographics + + + | Address | [address] | | | [place] [address] | + + + | Home Phone [...] Team Providers + +------+ + | Care Trade Clerk Name | Role | Phone | [...] [address] | | | | | | [place], | | | | | | [place] [address] | | | | | | [phone] | | | +--------+ + + + [...] | | | | | [place], | | | | | | [place] [address] | | | | | | [phone] | | | | | | | | +--------+---------+ + + + documented as of this encounter Visit Diagnoses Not on filedocumented in this encounter"
--- OUTSIDE RECORDS SUMMARY | ~2019-06-11 | XMS | Encounter Summary ---
Demographics + + + | Address | [address] | | | [place] [address] | + + + | Home Phone [...] | Organization | [facility] | | | and [place] | + + + | Address | Unknown | + + + | Phone | Unavailable | + + + Support + + + + + | Name | Relationship | Address | Phone | + + + + + | Lamar Phillips | REZA | [place] [address] | | + + + + + Care Team Providers + +------+ + | Care Shallot Packer Name | Role | Phone | [...] neoplasm of | Mike C, | [address] | | | | | rectum (HCC) | MD [address] | [place], | | | | | Procedures | [address] | [place] [address] | | | | | [place] | [place], | Phone: | | | | | [place] | [place] [address] | [phone] | | | | | INJECTION, | Phone: | Fax: | | | | | 500 MG [place] | [phone] | [phone] | | | | | NORMAL | Fax: | | | | | | SALINE | [phone] | | | | | | SOLUTION | | | | | | | INFUS, 500 | | | | | | | ML NC | | | | | | | NORMAL | | | | | | | SALINE | | | | | | | SOLUTION | | | | | | | INFUS, 250 | | | | | | | ML NC | | | | | | | STERILE | | | | | | | WATER/SALINE | | | | | | | , 10 ML NC | | | | | | | CHEMOTHER, | | | | | | | IV PUSH,EA | | | | | | | ADD DRUG NC | | | | | | | CHEMOTHER, | | | | | | | IV INFUSION, | | | | | | | 1 HR NC | | | | | | | CHEMOTHER, | | | | | | | IV INFUSION, | | | | | | | EA HR NC | | | | | | | CHEMOTHER,NO | | | | | | | N-HORMONE | | | | | | | ANTI-NEOPL, | | | | | | | SUB-Q/IM NC | | | | | | | CHEMOTHER | | | | | | | HORMON | | | | | | | ANTINEOPL | | | | | | | SUB-Q/IM NC | | | | | | | ONDANSETRON | | | | | | | HCL | | | | | | | INJECTION, 1 | | | | | | | MG NC | | | | | | | DEXAMETHASON | | | | | | | E SODIUM | | | | | | | PHOS, 1 MG | | | | | | | NC LORAZEPAM | | | | | | | INJECTION, | | | | | | | 2 MG NC | | | | | | | OXALIPLATIN, | | | | | | | .5 MG NC | | | | | | | LEUCOVORIN | | | | | | | CALCIUM | | | | | | | INJECTION, | | | | | | | 50 MG NC | | | | | | | DIPHENHYDRAM | | | | | | | INE HCL | | | | | | | INJECTIO, 50 | | | | | | | MG NC | | | | | | | METHYLPREDNI | | | | | | | SOLONE | | | | | | | INJECTION, | | | | | | | 125 MG NC | | | | | | | ADRENALIN | | | | | | | EPINEPHRINE | | | | | | | INJECT, .1 | | | | | | | MG NC | | | | | | | ALBUTEROL | | | | | | | COMP CON, 1 | | | | | | | MG NC | | | | | | | ALBUTEROL | | | | | | | NON-COMP | | | | | | | CON, 1 MG | | | | | | | NC | | | | | | | INJECTION, | | | | | | | FAMOTIDINE, | | | | | | | 20 MG | | | +--------+--------+ + + + + Encounter Details +--------+ + + + + | Date | Type | Department | Care Team | Description | +--------+ + + + + | 04/04/ | Hospital | [facility] | Janel, | Rectal cancer (HCC) | | 2017 | Encounter | MED CTR CHEMO | Mike White MD [address] | | | | | [place] [address] | [address] [place] | | | | | [place], | [place] [address] | | | | | [place] [address] | [phone] | | | | | [phone] | | | +--------+ + + + [...] encounter Progress Notes Jada Jauregui RN - 04/04/2017 1:02 PM PDTDischarged in stable condition with AVS.El ectronically signed by Jada Jauregui RN at 04/04/2017 1:06 PM PDTdocumented in this e ncounter Plan of Treatment Not on filedocumented as of this encounter Procedures + +--------+ + + + | Procedure Name | Priori | Date/Time | Associated Diagnosis | Comments | | | ty | | | | + +--------+ + + + | CBC WITH | STAT | 04/04/2017 | Rectal cancer | Results for this | | DIFFERENTIAL | | 8:19 AM | (HCC) | procedure are in the | | | | PDT | | results section. | + +--------+ + + + | LACTATE | STAT | 04/04/2017 | Rectal cancer | Results for this | | DEHYDROGENASE | | 8:19 AM | (HCC) | procedure are in the | | | | PDT | | results section. | + +--------+ + + + | CEA | STAT | 04/04/2017 | Rectal cancer | Results for this | | | | 8:19 AM | (HCC) | procedure are in the | | | | PDT | | results section. | + +--------+ + + + | COMPREHENSIVE | STAT | 04/04/2017 | Rectal cancer | Results for this | | METABOLIC PANEL | | 8:19 AM | (HCC) | procedure are in the | | | | PDT | | results section. | + +--------+ + + + documented in this encounter Results CBC with Differential (04/04/2017 8:19 AM PDT) + + + + + [...] + + + + | RBC | 3.77 | 3.70 - 5.20 | [facility] | [...] + + + + | Hematocrit | 32.9 (L) | 34.0 - 47.0 % | [...] + + + + | MCH | 29.3 | 28.0 - 35.0 pg | [facility] [...] + + + + | RDW-CV | 17.0 (H) | <15.0 % | [facility] | | | | | | [facility] | | [facility] | [facility] | | | | | [facility] - | | | | | | LABORATORY | | + + + + + + | Platelet | 301 | 140 - 440 K/uL | [facility] [...] + + + + | % | 73.9 | 45.0 - 82.0 % | [facility] | | | Neutrophils | | | [facility] | | | | | | [facility] | | | | | | C[facility] - | | | | | | LABORATORY | | + + + + + + | % | 9.8 (L) | 20.0 - 45.0 % | [facility] | | | Lymphocytes | | | [facility] | | | | | | [facility] | | | | | | CENTER - | | | | | | LABORATORY | | + + + + + + | % Monocytes | 9.4 | 4.0 - 12.0 % | [facility] | | | | | | [facility] | | | | | | [facility] | | | | | | [facility] - | | | | | | LABORATORY | | + + + + + + | % | 6.1 (H) | 0.0 - 5.0 % | [...] + + + + | Absolute | 3.90 | 1.80 - 8.50 | [facility] | [...] + | [facility] | [address] | [place] | [phone] | | [facility] | | [address] | | | - LABORATORY | | | | + + + + + Comprehensive Metabolic Panel (04/04/2017 8:19 AM PDT) + + + + + + | Component | Value | Ref Range | Performed | Pathologist | | | | | At | Signature | + + + + + + | Na | 140 | 136 - 149 | [facility] | | | | | mmol/L | [facility] | | | | | | MEDICAL | | | | | | CENTER - | | | | | | LABORATORY | | + + + + + + | K | 3.4 (L) | 3.5 - 5.1 | [facility] [...] + + + | Anion Gap | 5 | 3 - 16 mmol/L | [facility] [...] + + + + | Creatinine | 0.53 (L) | 0.60 - 1.30 | [facility] [...] mL/min/1.73m2 | [facility] | | | [facility] | RATE,ESTIMATED | | MEDICAL | | | | mL/min/1.04u5Qxmx than | | CENTER - | | [...] | 8.4 | 8.3 - 10.5 | [facility] | | | | | mg/dL | [...] + + + + | Bilirubin | 0.8 | 0.1 - 1.5 mg/dL | [facility] [...] + + + + | AST | 23 | 10 - 42 U/L | [facility] | | | | | | [facility] | | | | | | [facility]ICAL | | | | | | CENTER - | | | | | | LABORATORY | | + + + + + + | ALT | 19 | 6 - 45 U/L | [facility] | | | | | | [facility] | | | | | | [facility]ICAL | | | | | | CENTER - | | | | | | LABORATORY | | + + + + + + | Alkaline | 84 | 40 - 110 U/L | [facility] | | | Phosphatase | | | [facility] | | | | | | [facility]ICAL | | | | | | CENTER - | | | | | | LABORATORY | | + + + + + + | Globulin | 2.9 | 2.1 - 3.8 g/dL | [facility] [...] + + + + | BUN/Creatin | 13.2 | | [facility] | | | ine [...] + + | [facility] | [address] | [place] | [phone] | | [facility] | | [address] | | | - LABORATORY | | | | + + + + + CEA (04/04/2017 8:19 AM PDT) + +-------+ + + + | Component | Value | Ref Range | Performed | Pathologist | | | | | At | Signature | + +-------+ + + + | CEA | 1.7 | 0.0 - 10.0 | [facility] | [...] | + + + + + | [facility] | [address] | [place] | [phone] | | [facility] | | [address] | | | - LABORATORY | | | | + + + + + Lactate Dehydrogenase (04/04/2017 8:19 AM PDT) + +-------+ + + + | Component | Value | Ref Range | Performed | Pathologist | | | | | At | Signature | + +-------+ + + + | LDH TOTAL | 161 | 91 - 180 U/L | [facility] | | | | | | [facility]. [...] + | [facility] | [address] | [place], [place] | [phone] | | [facility] | | [address] | | | - LABORATORY | | [...] | + +--------+ + +---------+------+ | fluorouracil 4,250 mg in sodium | Given | 04/04/20 | 4,250 mg | 2 mL/hr | | | chloride 0.9% 7 mL CADD PUMP | | 17 12:58 | | | | | infusion 4,250 mg (rounded from | | PM PDT | | | | | 4,248 mg = 2,400 mg/m2 | | | | | | | 1.77 m2 Treatment plan recorded | | | | | | | BSA), Intravenous, Administer | | | | | | | over 46 Hours, EVERY 46 HOURS, | | | | | | | First dose on Tue04/04/17 at | | | | | | | 1245, OUTPATIENT Chemotherapy: | | | | | | | Use appropriate handling | | | | | | | precautions. Protect from light. | | | | | | | Start Day 1, disconnect Day 3., | | | | | | + +--------+ + +---------+------+ +---+---+ | | | +---+---+ + +---------+ +--------+--------+---+ | leucovorin 350 mg in dextrose | New Bag | 04/04/20 | 350 mg | 133.8 | | | 5% 250 mL infusion 350 mg | | 17 10:46 | | mL/hr | | | (rounded from 354 mg = 200 mg/m2 | | AM PDT | | | | | | | | | | | | 1.77 m2 Treatment plan recorded | | | | | | | BSA), Intravenous, Administer | | | | | | | over 2 Hours, ONCE, Tue04/04/17 | | | | | | | at 1045, For 1 dose, Administer | | | | | | | via y-site with oxaliplatin, | | | | | | + +---------+ +--------+--------+---+ +---+---+ | | | +---+---+ + +---------+ +---+--------+---+ | ondansetron (ZOFRAN) 8 mg, | New Bag | 04/04/20 | | 217.6 | | | dexamethasone (DECADRON) 4 mg in | | 17 10:23 | | mL/hr | | | sodium chloride 0.9% 50 mL IVPB | | AM PDT | | | | | Intravenous, Administer over 15 | | | | | | | Minutes, ONCE, 04/04/17 at | | | | | | | 1015, For 1 dose, Administer 30 | | | | | | | minutes prior to chemotherapy., | | | | | | + +---------+ +---+--------+---+ +---+---+ | | | +---+---+ + +---------+ + +-------+---+ | oxaliplatin (ELOXATIN) 142.5 mg | New Bag | 04/04/20 | 142.5 mg | 125 | | | in dextrose 5% 221.5 mL infusion | | 17 10:46 | | mL/hr | | | 142.5 mg (rounded from 141.6 mg | | AM PDT | | | | | = 80 mg/m2 | | | | | | | 1.77 m2 Treatment plan recorded | | | | | | | BSA), Intravenous, Administer | | | | | | | over 2 Hours, ONCE, 04/04/17 | | | | | | | at 1045, For 1 dose, | | | | [...] | | | | + +---------+ + +-------+---+ +---+---+ | | | +---+---+ documented in this encounter"
--- OUTSIDE RECORDS SUMMARY | ~2019-06-11 | XMS | Encounter Summary ---
Demographics + + + | Address | [address] | | | [place] [address] | + + + | Home Phone [...] Team Providers + +------+ + | Care Analysis Specialist Name | Role | Phone | [...] | | 2019 | | Center at [facility] [address] | [address] | Review | | | | [address] | [place], | | | | | Mailcode: [place] | [place] [address] | | | | | for Health and | [phone] | | | | | [facility] | | | | | | [place], [place] | | | | | | [address] | | | | | | [phone] | | | +--------+ + + + [...] | | | | | [place], | | | | | | [place] [address] | | | | | | [phone] | | | | | | | | +--------+---------+ + + + documented as of this encounter Visit Diagnoses Not on filedocumented in this encounter"
--- OUTSIDE RECORDS SUMMARY | ~2019-06-11 | XMS | Encounter Summary ---
Demographics + + + | Address | [address] | | | [place] [address] | + + + | Home Phone [...] Team Providers + +------+ + | Care Circuit Judge Name | Role | Phone | + +------+ + | Kristian Anderson DO | PCP | | + +------+ + Encounter Details +--------+ + + + + | Date | Type | Department | Care Team | Description | +--------+ + + + + | 05/05/ | Telephone | Dig[facility]ive [facility] | Ailyn Wolff MD | | | 2017 | | [place] [facility] [address] | [address] | | | | | [address] | [place], | | | | | Mailcode: [place] | [place] [address] | | | | | for Health and | [phone] | | | | | [facility] | | | | | | [place], [place] | | | | | | [address] | | | | | | [phone] | | | +--------+ + + + [...] | | | | | [place], | | | | | | [place] [address] | | | | | | [phone] | | | | | | | | +--------+---------+ + + + documented as of this encounter Visit Diagnoses Not on filedocumented in this encounter"
--- OUTSIDE RECORDS SUMMARY | ~2019-06-11 | XMS | Encounter Summary ---
Demographics + + + | Address | [address] | | | [place] [address] | + + + | Home Phone [...] Team Providers + +------+ + | Care Shot Tube Machine Tender Name | Role | Phone [...] 2017 | | Center at [facility] [address] | [address] | Review | | | | [address] | [place], | | | | | Mailcode: [place] | [place] [address] | | | | | for Health and | [phone] | | | | | [facility] | | | | | | [place], [place] | | | | | | [address] | | | | | | [phone] | | | +--------+ + + + [...] | | | | | [place], | | | | | | [place] [address] | | | | | | [phone] | | | | | | | | +--------+---------+ + + + documented as of this encounter Visit Diagnoses Not on filedocumented in this encounter"
--- OUTSIDE RECORDS SUMMARY | ~2019-06-11 | XMS | Encounter Summary ---
Demographics + + + | Address | [address] | | | [place] [address] | + + + | Home Phone [...] Team Providers + +------+ + | Care Research Laboratory Specialist Name | Role | Phone | [...] findings, | | 2017 | | at [facility] [address] | [address] [address] | teaching, guidance, | | | | [address] Mailcode: | [place] [facility] [place] | and counseling | | | | [address] [address] | | | | | Health and Healing, | [phone] | | | | | [facility] [address] [facility] | | | | | | floor [place], [place] | | | | | | [address] | | | | | | [phone] | | | +--------+ + + + [...] | | | | | [place], | | | | | | [place] [address] | | | | | | [phone] | | | | | | | | +--------+---------+ + + + documented as of this encounter Visit Diagnoses Not on filedocumented in this encounter"
--- OUTSIDE RECORDS SUMMARY | ~2019-06-11 | XMS | Encounter Summary ---
Demographics + + + | Address | [address] | | | [place] [address] | + + + | Home Phone | | + + + | Preferred Language | Unknown | + + + | Marital Status | | + + + | Taoist Affiliation | Unknown | + + + | Race | Unknown | + + + | Ethnic Group | Unknown | + + + Author + + + | Author | [facility] | | | and [place] | + + + | Organization | [facility] | | | and [place] | + + + | Address | Unknown | + + + | Phone | Unavailable | + + + Support + + + + + | Name | Relationship | Address | Phone | + + + + + | Lamar Phillips | REZA | [place] [address] | | + + + + + Care Team Providers + +------+ + | Care Dress Finisher Name | Role | Phone | + [...] Radiology | Diagnoses | Lord, | [facility] | | | | | Malignant | Joel C, DO | [address] | | | | | neoplasm of | [address] | [place], | | | | | rectum (HCC) | [address] | [place] | | | | | Procedures | [place], | [address] | | | | | MRI Pelvis | [place] [address] | Phone: | | | | | w wo | Phone: | [phone] | | | | | Contrast [place] | [phone] | Fax: | | | | | MRI, | Fax: | [phone] | | | | | PELVIS, | [phone] | | | | | | COMBO | | | +--------+--------+ + + + [...] + + | 01/03/ | Hospital | [facility] | Joel Alfaro DO | Malignant neoplasm | | 2017 | Encounter | MED CTR MRI [address] | [address] | of rectum (HCC) | | | | [address], | [place], [place] | | | | | [place] [address] | [id number] | | | | | [phone] | | | +--------+ + + + [...] | + +--------+ + + + | MRI PELVIS W WO | Routin | 01/03/2017 | Malignant neoplasm | Results for this | | CONTRAST | e | 2:47 PM | of rectum (HCC) | procedure are in the | | | | PDT | | results section. | + +--------+ + + + documented in this encounter Results MRI Pelvis w wo Contrast (01/03/2017 2:47 PM PDT) + + | Specimen | + + | | + + + + + | Narrative | Performed At | + + + | MRI PELVIS WITH CONTRAST: 01/03/2017 2:04 PM CLINICAL HISTORY: | [facility] | | Evaluate treatment response COMPARISON:10/05/2016 TECHNIQUE: | | | Multiplanar, multisequence imaging of the pelvis is performed before | | | and after the administration of 7 mL of Gadavist intravenously. | | | FINDINGS: Rectosigmoid mass: -Size: 7.2 x 6.1 x 4.7 cm at | | | greatest dimension (axial postcontrast image 53 and sagittal | | | postcontrast image 14). Mass previously measured 8.9 x 7.3 x 5.2 cm | | | when measured with same technique. -Appearance: Lesion is | | | circumferential and exhibits multiple exophytic masses extending | | | through the rectal/colonic wall at multiple sites from the 6:00 | | | position to the 2:00 position, similar since prior examination. | | | Enhancing tissue extends from this mass is seen to extend through the | | | perirectal fat planes. Exophytic component of this mass is seen to | | | abut the cervix/low uterine wall anteriorly, similar since prior | | | examination. A portion of this mass appears in direct continuation | | | with a second loop of sigmoid colon (sagittal T1 FS postcontrast | | | image 14). It is unclear whether this mass extends through the | | | peritoneal reflection into the rectovesicular space. There is | | | questionable invasion into the right posterior pelvic sidewall | | | musculature (axial T1 vibe postcontrast image 60). Overall decreased | | | pelvic inflammation and tumor burden since prior examination. | | | -Distance to the anal verge: Mild thickening is identified within the | | | rectum to the level of anal hemorrhage; however, both of mass | | | measures approximately 5.6 cm from the anal verge. -Distance to | | | the anal sphincter: Approximately 2.8 cm. -Lymph nodes: Multiple | | | perirectal and presacral lymph nodes are once again identified, | | | decreased in size and number since previous examination. | | | -Vascular: No evidence of vascular invasion. -Other: Peritoneal | | | abscess drainage catheter is identified. A small amount of fluid is | | | seen adjacent to the sigmoid colon in the perirectal fat (axial T2 | | | image 8), this is drained by the peritoneal surgical drainage | | | catheter. Nonspecific thickening of the remainder of the sigmoid | | | colon which is similar since prior MRI. Osseous structures | | | demonstrate no acute abnormality. No definite lytic or sclerotic | | | lesion identified. Urinary bladder is normal. IMPRESSION - | | | Interval decreased size of the large rectosigmoid mass now measuring | | | 7.2 x 6.1 x 4.7 cm at greatest dimension. Redemonstration of | | | multiple exophytic areas of extension beyond the colonic wall from | | | approximately the 6:00 position to the 2:00 position. Causing direct | | | invasion of the rectal wall, perirectal fat, likely invasion of the | | | right posterior pelvic sidewall musculature, and invasion of a second | | | loop of sigmoid colon. Interval decreased size and number of a | | | few bilateral presacral and internal iliac suspicious lymph nodes. 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 | | | Dictated and Signed by: Pino Can MD Electronically | | | signed: 01/03/2017 9:09 PM | | + + + + + | Procedure Note | + + | Grabiel, Rad Results In - 01/03/2017 9:12 PM PDT MRI PELVIS WITH CONTRAST: 01/03/2017 | | 2:04 PMCLINICAL HISTORY: Evaluate treatment responseCOMPARISON:10/05/2016TECHNIQUE: | | Multiplanar, multisequence imaging of the pelvis is performed beforeand after the | | administration of 7 mL of Gadavist intravenously.FINDINGS:Rectosigmoid mass:-Size: 7.2 x | | 6.1 x 4.7 cm at greatest dimension (axial postcontrast image 53 andsagittal | | postcontrast image 14). Mass previously measured 8.9 x 7.3 x 5.2 cmwhen measured with | | same technique.-Appearance: Lesion is circumferential and exhibits multiple exophytic | | massesextending through the rectal/colonic wall at multiple sites from the 6:00position | | to the 2:00 position, similar since prior examination. Enhancing tissueextends from this | | mass is seen to extend through the perirectal fat planes.Exophytic component of this | | mass is seen to abut the cervix/low uterine wallanteriorly, similar since prior | | examination. A portion of this mass appears indirect continuation with a second loop of | | sigmoid colon (sagittal T1 FSpostcontrast image 14). It is unclear whether this mass | | extends through theperitoneal reflection into the rectovesicular space. There is | | questionableinvasion into the right posterior pelvic sidewall musculature (axial T1 | | vibepostcontrast image 60). Overall decreased pelvic inflammation and tumor burdensince | | prior examination.-Distance to the anal verge: Mild thickening is identified within the | | rectum tothe level of anal hemorrhage; however, both of mass measures approximately | | 5.6cm from the anal verge.-Distance to the anal sphincter: Approximately 2.8 cm.-Lymph | | nodes: Multiple perirectal and presacral lymph nodes are once againidentified, decreased | | in size and number since previous examination.-Vascular: No evidence of vascular | | invasion.-Other: Peritoneal abscess drainage catheter is identified. A small amount | | offluid is seen adjacent to the sigmoid colon in the perirectal fat (axial [id number]), | | this is drained by the peritoneal surgical drainage catheter.Nonspecific thickening of | | the remainder of the sigmoid colon which is similarsince prior MRI. Osseous structures | | demonstrate no acute abnormality. Nodefinite lytic or sclerotic lesion identified. | | Urinary bladder is normal. IMPRESSION - Interval decreased size of the large | | rectosigmoid mass now measuring 7.2 x 6.1 x4.7 cm at greatest dimension.Redemonstration | | of multiple exophytic areas of extension beyond the colonic wallfrom approximately the | | 6:00 position to the 2:00 position. Causing directinvasion of the rectal wall, | | perirectal fat, likely invasion of the rightposterior pelvic sidewall musculature, and | | invasion of a second loop of sigmoidcolon.Interval decreased size and number of a few | | bilateral presacral and internaliliac suspicious lymph nodes.Radiographically findings | | are most compatible with T4, N2 disease.Dictated and Signed by: Pino Can MD | | Electronically signed: 01/03/2017 9:09 PM | |-Lymph nodes: Multiple perirectal and presacral lymph nodes are once again | |identified, decreased in size and number since previous examination. | | | |-Vascular: No evidence of vascular invasion. | | | |-Other: Peritoneal abscess drainage catheter is identified. A small amount of | |fluid is seen adjacent to the sigmoid colon in the perirectal fat (axial T2 | |image 8), this is drained by the peritoneal surgical drainage catheter. | |Nonspecific thickening of the remainder of the sigmoid colon which is similar | |since prior MRI. Osseous structures demonstrate no acute abnormality. No | |definite lytic or sclerotic lesion identified. Urinary bladder is normal. | | | |IMPRESSION - | | | |Interval decreased size of the large rectosigmoid mass now measuring 7.2 x 6.1 x | |4.7 cm at greatest dimension. | | | |Redemonstration of multiple exophytic areas of extension beyond the colonic wall | |from approximately the 6:00 position to the 2:00 position. Causing direct | |invasion of the rectal wall, perirectal fat, likely invasion of the right | |posterior pelvic sidewall musculature, and invasion of a second loop of sigmoid | |colon. | | | |Interval decreased size and number of a few bilateral presacral and internal | |iliac suspicious lymph nodes. | | | |Radiographically findings are most compatible with T4, N2 disease. | | | |Dictated and Signed by: Pino Can MD | | Electronically signed: 01/03/2017 9:09 PM | + + + +---------+ + + [...] | | | + +--------+ +-------+------+------+ | gadobutrol (GADAVIST) injection | Given | 01/04/20 | 7 mLs | | | | 7 mL 7 mL, Intravenous, ONCE | | 17 2:49 | | | | | PRN, Other, Starting 01/03/17 | | PM PDT | | | | | at 1449, For 1 dose, MRI | | | | | | + +--------+ +-------+------+------+ +---+---+ | | | +---+---+ documented in this encounter"
--- OUTSIDE RECORDS SUMMARY | ~2019-06-11 | XMS | Encounter Summary ---
Demographics + + + | Address | [address] | | | [place] [address] | + + + | Home Phone [...] Providers + +------+ + | Care Aircraft Armament Mechanic Name | Role | Phone | + +------+ + | Justin Kristian | PCP | | + +------+ + Encounter Details +--------+ + + + + | Date | Type | Department | Care Team | Description | +--------+ + + + + | 09/22/ | Procedure | [facility] | | | | 2017 | Pass | [place] [facility] | | | | | | [place] [address] | | | | [address] | | | | | | [place], [place] | | | | | | [address] | | | | | | [phone] | | | +--------+ + + + [...] | | | | | [place], | | | | | | [place] [address] | | | | | | [phone] | | | | | | | | +--------+---------+ + + + documented as of this encounter Visit Diagnoses Not on filedocumented in this encounter"
--- OUTSIDE RECORDS SUMMARY | ~2019-06-11 | XMS | Encounter Summary ---
Demographics + + + | Address | [address] | | | [place] [address] | + + + | Home Phone [...] Team Providers + +------+ + | Care Reach Lift Truck Driver Name | Role | Phone [...] | | FACUNDO Briggs | [place], | | | | | Mailcode: [place] | [place] [address] | | | | | for Health and | [phone] | | | | | [facility] [address] | | | | | | [place], [place] | | | | | | [address] | | | | | | [phone] | | | +--------+ + + + [...] | | | | | [place], | | | | | | [place] [address] | | | | | | [phone] | | | | | | | | +--------+---------+ + + + documented as of this encounter Visit Diagnoses Not on filedocumented in this encounter"
--- OUTSIDE RECORDS SUMMARY | ~2019-06-11 | XMS | Encounter Summary ---
Demographics + + + | Address | [address] | | | [place] [address] | + + + | Home Phone [...] + | Organization | [facility] | | | and [place] | + + + | Address | Unknown | + + + | Phone | Unavailable | + + + Support + + + + + | Name | Relationship | Address | Phone | + + + + + | Lamar Phillips | REZA | [place] [address] | | + + + + + Care Team Providers + +------+ + | Care Print Developer Automatic Name | Role | Phone | + [...] + | 04/12/ | Telephone | [facility] | Mychal Andre, | Medication Orders | | 2018 | | [facility] [place] | [address] | | | | | [address] [facility], | [place] [address] | | | | | [address] [place] | [place] | | | | | [place] [address] | [address] | | | | | [phone] | | | +--------+ + + + [...]
--- OUTSIDE RECORDS SUMMARY | ~2019-06-11 | XMS | Encounter Summary ---
Demographics + + + | Address | [address] | | | [place] [address] | + + + | Home Phone | | + + + | Preferred Language | Unknown | + + + | Marital Status | | + + + | Holiness Affiliation | Unknown | + + + | Race | Unknown | + + + | Ethnic Group | Unknown | + + + Author + + + | Author | [facility] | | | and [place] | + + + | Organization | [facility] | | | and [place] | + + + | Address | Unknown | + + + | Phone | Unavailable | + + + Support + + + + + | Name | Relationship | Address | Phone | + + + + + | Lamar Phillips | REZA | [place] [address] | | + + + + + Care Team Providers + +------+ + | Care Therapist'S Assistant Name | Role | Phone | [...] + + | 08/15/ | Hospital | [facility] | [facility], | Rectal cancer (HCC) | | 2018 | Encounter | [facility] | Mike White MD [address] | | | | | [facility] [address] | [facility] | | | | | [address] [facility] | [place] [address] | | | | | [place] [address] | [phone] | | | | | [phone] | | | +--------+ + + + [...] nt from the original. Hematology/Oncology Progress Note [facility] MD Pt. Name/Age/: Paulette Byrnes 56 y.o. 1960 Med. Record Number: [id number] Date of admission: 08/15/2017 The patient's primary care provider is Kristian Anderson DO. Identifying Statement: Paulette Byrnes is a 56 y.o. female [place] [address] [place] [address] with Locally Advanced Rectal Cancer. The patient chart and medications were reviewed in detail and the patient was seen and exam ined. History of Present Illnesses, their Current Assessments and Plans: Problem List Rectal cancer Overview ACTIVE DIAGNOSIS: Locally Advanced Rectal Cancer, [id number], Stage IIA. 1Jame Barajas presented to the [facility] emergency room on July 20, 2016 [...] cm within the rectum. Biopsy specimen number [id number] evaluated by Dr. Felipe Nixon of [facility] was notable for a tubular adenoma without high-grade dysplasia or overt carcinoma. This proced ure also included a full colonoscopy through the ostomy were 2 additional polyps were remove d, a tubular adenoma at 35 cm and a hyperplastic polyp at [address] C/A/P at [facility] in [place], [place] demonstrated no evidence of metastatic disease. 4. On September 22, 2016 Dr. Thacker placed in internal jugular Port-A-Cath without complications. 5. MRI of pelvis performed on October 05, 2016 at [facility]: Rectal mass 7.7 cm x 6.2 cm x 9.6 cm in length located within 3 cm of the anal sphincter and 6.4 cm from the anal verge with radi ographic extension though multiple areas of the bowel wall. 6. CT abdomen/pelvis also at [facility] October 05, 2016; large almost completely circumferential r ectosigmoid mass better delineated on the corresponding MRI with adjacent probable abscess. No distant metastases identified. 7. On October 14, 2016 Paulette was evaluated by Dr. Ailyn Wolff and Dr. Shea Mcneill of the [facility] [place] where her case was presented to their tumor board. Clinical exa phillip is notable for an overt rectal carcinoma invading into the vagina. 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 Concerns raised by the [facility] Tumor Board were that the [...] as well as mutation analysis." [id number] Tubulovillous adenoma with high grade dysplasia [...] radiation. 14. Multidisciplinary Care Team Conference at [facility] March 10, 2017; "Given borderline resec [...] resection by Dr. Ailyn Wolff at the [facility]: 06/30/17: Exploratory laparoto my. Extensive lysis of adhesions. Excision of left lower quadrant fistula tract. Total mesor ectal excision, intersphincteric abdominoperineal resection, en bloc resection of left ovary and left fallopian tube and posterior vaginal wall. Placement of a 19-Hebrew Albert drain th rough the right lower [...] exam on August 12, 2017; Dr. Lea, [facility], [place], [place] ; positive for perianal fistula between anus and vagina. Current Assessment & Plan Paulette Byrnes returned to clinic on 08/15/2017 with her son, for follow up of her loc ally advanced rectal cancer. Interval history is notable for the fact that Paulette underwent mesorectal excision and abdomi noperineal resection on June 30, [address] Ailyn Wolff of the [facility] in [facility]. 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 Pathology was notabl e for residual invasive adenocarcinoma with a positive radial margin. Paulette was evaluated by Dr. Lea of [facility] gynecology on Tuesday, who identified a new [...] an extended 25 minute office encounter with Paulette reviewing her recent treatm ent history as [...] Dr. Wolff on August 22, 2017 at [facility]. In the meantime, her anemia was addressed [...] the resection margin. No additional gross findings. Land Surveying Manager sections are submitted. B: Abdominal wall tract: Received in formalin labeled "abdominal wall tract" is a 4.2 x 3.9 x 2.1 cm aggregate of yellow-brown fibroadipose tissue fragments. Within the tissue fragment is cylindrical with a lumen and measures 2.8 cm in length and 1.2 cm diameter. Land Surveying Manager sections are submitted. C: Left pelvic sidewall: [...] and edematous. No mucosal lesions are identified. Land Surveying Manager sections are submitted. Cassette Index: A1, distal resection margin en face A2 and A3, scar 2 radial resection margin A4 scar 2 abscess cavity A5 proximal granular and erythematous mucosa A7, distal granular and erythematous mucosa A8 and A9, additional insurance representative sections of the scar A 10 [...] left ureter, frozen section remnant F1 and K0kffvu bowel fistula tract, perpendicular F3 and F4 [...] this chart may have been created with [employer] voice recognition software. Occasi onal wrong-word or [...]
--- OUTSIDE RECORDS SUMMARY | ~2019-06-11 | XMS | Encounter Summary ---
Demographics + + + | Address | [address] | | | [place] [address] | + + + | Home Phone [...] Team Providers + +------+ + | Care Jelly Maker Name | Role | Phone | [...] | | | | MR RECTAL | [place], [place] | Mailcode: | | | | | [place] | [address] | [address] | | | | | MRI, PELVIS, | Phone: | [facility] | | | | | COMBO | [phone] | Research | | | | | | Fax: | Center | | | | | | [phone] | [place], [place] | | | | | | | [address] | | | | | | | Phone: | | | | | | | [phone] | | | | | | | Fax: | | | | | | | [phone] | +--------+--------+ + + + + Reason [...] | | | | MR RECTAL | [facility] [place] | Mailcode: | | | | | [place] | [address] | [address] | | | | | MRI, PELVIS, | Phone: | [place] | | | | | COMBO | [phone] | Research | | | | | | Fax: | Center | | | | | | [phone] | [place], [place] | | | | | | | [address] | | | | | | | Phone: | | | | | | | [phone] | | | | | | | Fax: | | | | | | | [phone] | +--------+--------+ + + + + Encounter Details +--------+ + + + + | Date | Type | Department | Care Team | Description | +--------+ + + + + | 10/05/ | Hospital | [facility] | Ailyn Wolff MD | | | 2017 | Encounter | [facility] at | [address] | | | | | [place] [address] [address] | [place], | | | | | [address] | [place] [address] | | | | | [place], [place] | [phone] | | | | | [address] | | | | | | [phone] | | | +--------+ + + + [...] | | | | [place], | | | | | | [place] [address] | | | | | | [phone] | | | | | | | [...] + + | [facility] | [address] | [place] [address] | [phone] | | IMAGING, POINT OF | | [...]
--- OUTSIDE RECORDS SUMMARY | ~2019-06-11 | XMS | Encounter Summary ---
Demographics + + + | Address | [address] | | | [place] [address] | + + + | Home Phone [...] Team Providers + +------+ + | Care Appliances Sample Maker Name | Role | Phone | [...] To Surgery | | 2017 | | [place] [facility] [address] | | - General | | | | F[place] | | | | | | Mailcode: [place] | | | | | | for [facility] and | | | | | | Healing, [address] | | | | | | [place], [place] | | | | | | [address] | | | | | | [phone] | | | +--------+ + + + [...] | | | | | [place], | | | | | | [place] [address] | | | | | | [phone] | | | | | | | | +--------+---------+ + + + documented as of this encounter Visit Diagnoses Not on filedocumented in this encounter"
--- OUTSIDE RECORDS SUMMARY | ~2019-06-11 | XMS | Encounter Summary ---
Demographics + + + | Address | [address] | | | [place] [address] | + + + | Home Phone [...] | Organization | [facility] | | | and [place] | + + + | Address | Unknown | + + + | Phone | Unavailable | + + + Support + + + + + | Name | Relationship | Address | Phone | + + + + + | Lamar Phillips | ECON | [place] [address] | | + + + + + Care Team Providers + +------+ + | Care Associate Professor Of Engineering Name | Role | Phone | + [...] [address] | | | | | [address] | [address] | [address] [place] | | | | | | [place], | [place], [place] | | | | | | [place] | [address] Phone: | | | | | | [address] | [phone] | | | | | | Phone: | Fax: | | | | | | [phone] | [phone] | | | | | | Fax: | | | | | | | [phone] | | +--------+--------+ + + + + Encounter Details +--------+ + + + + | Date | Type | Department | Care Team | Description | +--------+ + + + + | 01/02/ | Hospital | [facility] | Janel, | Rectal cancer (HCC); | | 2018 | Encounter | [facility] | Mike White MD [address] | Lichen sclerosus | | | | ONCOLOGY CLINIC [address] [place] | | | | | [address] [place] | [place] [address] | | | | | [place] [address] | [phone] | | | | | [phone] | | | +--------+ + + + [...] + + + +---------+ + + | POTASSIUM CHLORIDE | Take 20 mEq by | | 0 | | | | REENA ER PO | mouth. | | | | | + + + +---------+ + + documented as of this encounter Progress Notes Mike Islas MD - 01/02/2018 3:03 PM PDTFormatting of this note might be differe nt from the original. Hematology/Oncology Progress Note [facility] [place] Pt. Name/Age/: Paulette Byrnes 57 y.o. 1960 Med. Record Number: [id number] Date of admission: 01/02/2018 The patient's primary care provider is Kristian Anderson DO. Identifying Statement: Paulette Byrnes is a 57 y.o. female from [address] [place] [address] with Locally Advanced Rectal Cancer. The patient chart and medications were reviewed in detail and the patient was seen and exam ined. History of Present Illnesses, their Current Assessments and Plans: Problem List Lichen sclerosus Overview ACTIVE DIAGNOSIS: Lichen Sclerosis of the Vulva. 1. Presentation with Dyspareunia in February 2010. 2. PAP and vulvar biopsy March 19, 2010 (Rene). Pathological specimens; PAP #[id number] "n egative for intraepithelial lesions or malignancy." Biopsy #[id number] "freatures consistent with lichen sclerosis." 3. Treatment with clobetasol 0.05% with improvement. 4. Consultation by Dr. Rossana Knowles, June 2016-Lichen sclerosis exacerbated by urinary and fecal incontinence. Rectal cancer Overview ACTIVE DIAGNOSIS: Locally Advanced Rectal Cancer, [id number], Stage IIA. 1. Paulette presented to the [facility] [...] cm within the rectum. Biopsy specimen number [id number] evaluated by Dr. Felipe Nixon of [facility] was notable for a tubular adenoma without high-grade dysplasia or overt carcinoma. This proced ure also included a full colonoscopy through the ostomy were 2 additional polyps were remove d, a tubular adenoma at 35 cm and a hyperplastic polyp at [address] C/A/P at [facility] in [place], [place] demonstrated no evidence of metastatic disease. 4. On September 22, 2016 Dr. Thacker placed in internal jugular Port-A-Cath without complications. 5. MRI of pelvis performed on October 05, 2016 at [facility]: Rectal mass 7.7 cm x 6.2 cm x 9.6 cm in length located within 3 cm of the anal sphincter and 6.4 cm from the anal verge with radi ographic extension though multiple areas of the bowel wall. 6. CT abdomen/pelvis also at [facility] October 05, 2016; large almost completely circumferential r ectosigmoid mass better delineated on the corresponding MRI with adjacent probable abscess. No distant metastases identified. 7. On October 14, 2016 Paulette was evaluated by Dr. Ailyn Wolff and Dr. Shea Mcneill of the [facility] where her case was presented to their tumor board. Clinical exa m is notable for an overt rectal carcinoma invading into the vagina. 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 Concerns raised by the [facility] Tumor Board were that the prior placement [...] as well as mutation analysis." Pathological Specimen #[id number] ([facility]). Tubulovillous adenoma with [...] radiation. 14. Multidisciplinary Care Team Conference at [facility] March 10, 2017; "Given borderline resec [...] resection by Dr. Ailyn Wolff at the [facility]: 06/30/17: Exploratory laparoto my. Extensive lysis of adhesions. Excision of left lower quadrant fistula tract. Total mesor ectal excision, intersphincteric abdominoperineal resection, en bloc resection of left ovary and left fallopian tube and posterior vaginal wall. Placement of a 19-Citizen Of [place] Albert drain th rough the right lower [...] 21. Gynecological exam on August 12, 2017; [facility], [place], [place] ; positive for perianal fistula between anus and vagina. 22. Clinical exam on August 22, [address] Ailyn Wolff at [facility] who could not confirm the prese nce of perianal fistula. 23. Cycle # 11 FOLFOX on August 23, 2017. 24. Cycle #12 FOLFOX on September 05, 2017. 25. Port-a-cath removed by Dr. Marty Thacker. 26. CT chest/abdomen/pelvis ([facility], [place]) on September 26, 2017; marked reduction of large central rectal/perirectal mass, very small residual fluid collection with adjacent fat stra nding which may represent short residual Velasquez's pouch, residual postoperative fluid or re sidual necrotic tumor. 27. MRI of pelvis September 28, 2017 ([facility], [place], [place]); Small gas and fluid collection in the presacral space, concerning for abscess formation. Postoperative changes of low anterior re section, with left lower quadrant end colostomy. Left lower quadrant parastomal hernia. Current Assessment & Plan Paulette Byrnes returned to clinic on 01/02/2018 with a addiction nurse for follow up of her locally advanced rectal cancer. Interval history is notable for the fact that Dr. Thacker electively removed Paulette's port-a-ca th. Interval history is also notable for the fact that Paulette had an encounter with her surgeon, Dr. Ailyn Wolff at [facility]. Dr. Wolff has asked Paulette to follow up with him in [place] every three sonya hs. Assessment; Locally advanced rectal cancer, status post 10 cycles of neoadjuvant FOFLOX, fo llowed by definitive surgery on May 16, 2017, followed by two adjuvant cycles of FOLFOX completed on September 05, 2017. Plan; Paulette will follow up with Dr. Wolff in [place] every three months. Currently, follow-up in medical oncology is open. Review of Systems: Constitutional: Reports energy level is low, "tired all the time". Reports day sweats, hot and cold flashes continues, unchanged. Denies high fevers, shaking chills, anorexia, nausea , vomiting, weight loss. Appetite without changes. Ear, Nose, Mouth, Throat: Reports sores in the mouth "think from eating too much acid stuff ". Denies dysphagia, or tinnitus. Cardiovascular: Reports shortness of breath with exertion continues, unchanged. Reports occ asional heart palpitations, unchanged. Denies shortness of breath, chest pain, or orthopnea. Respiratory: Reports recent cough and sinus drainage, due to allergies per patient. Denies hemoptysis. Gastrointestinal: Reports intermittent constipation and diarrhea, continues, unchanged. De nies abdominal pain, melena, or bright red blood per rectum. Genitourinary: Reports intermittent incontinence to urine, has an appointment with urologi st 01/18/18. Denies hematuria or dysuria. Musculoskeletal: Denies joint pain or tenderness. Neurologic: Reports intermittent headaches, "been waking up with a headache", onset 1.5 mon ths ago. Reports getting the feeling back in the toes, numbness and tingling has improved, s till present, worse with the cold. Denies visual changes. Endocrine: Denies peripheral edema or heat/cold intolerance. Hematologic: Denies spontaneous bruising or bleeding. Integumentary: Reports vaginal and buttocks rash, due to urinary incontinence issues, onset 3 weeks months ago. Denies wounds or other skin concerns. Pain: Denies pain. Note: Here for 2 month follow up and labs. Here with friend. Lamar. My chart: Active Scheduled Medications: Current Outpatient [...] hours as needed for Anxie ty (Nausea/vomiting/restlessness). (Patient not taking: Reported on 01/02/2018) 60 tablet 2 Multiple Vitamins-Minerals (MULTIVITAMIN ADULT PO) Take by mouth. nystatin (MYCOSTATIN) powder Apply topically as needed. ondansetron (ZOFRAN ODT) 8 mg disintegrating tablet Take 8 mg by mouth every 8 hours as needed for Nausea. oxyCODONE (ROXICODONE) 5 mg tablet Take 5 mg by mouth every 6 hours as needed for Pain. POTASSIUM CHLORIDE REENA ER PO Take 20 mEq by mouth. No current facility-administered medications for this encounter. [...] cancer Lichen sclerosus Objectives: Temp: 36.8 C (98.3 F) BP: 112/82 Pulse: 84 Resp: 16 SpO2: 96 % on Min/Max Temp past 24 hours:Temp Av.8 C (98.3 F) Min: 36.8 C (98.3 F) Max: 3 6.8 C (98.3 F) No intake or output data in the 24 hours ending 01/03/18 0707 Wt. Admission: Weight: 83.5 kg (184 lb 1.4 oz) Wt. Current: Weight: 83.5 kg (184 lb 1.4 oz) Wt Readings from Last 3 Encounters: 01/02/18 83.5 kg (184 lb 1.4 oz) 10/31/17 77.7 kg (171 lb 4.8 oz) 09/05/17 72.4 kg (159 lb 9.8 oz) Physical Exam: General: The patient is alert and oriented. No acute distress. Now on disability. Eyes: Conjunctiva clear. Sclera anicteric. ENMT: Oropharynx fee of lesions, mucous membranes moist. Cardiovascular: Regular rate and rhythm, no rubs, gallops, or murmurs. Lungs: Clear to auscultation and percussion. Chest: Former right anterior chest port-a-cath site is well healed. Extremities: Nontender, no erythema, no edema. Skin: [...] Baer., Jumana, R.H., Fransisca Baltazar., Chayito Roque., Thaddeus TLuis Alfredo., Jyoti, EboniT., Danielle, P .P.: Toxicity And Response Criteria [...] for PAULETTE BYRNES ( ) as of 01/03/2018 07:08 Ref. Range 01/02/2018 14:41 WBC Latest Ref Range: 4.0 - 11.0 K/uL 6.7 RBC COUNT Latest Ref Range: 3.70 - 5.20 M/uL 4.50 Hgb Latest Ref Range: 11.5 - 16.0 g/dL 12.3 Hct, Final Latest Ref Range: 34.0 - 47.0 % 36.8 MCV Latest Ref Range: 83.0 - 101.0 fL 81.7 (L) MCH Latest Ref Range: 28.0 - 35.0 pg 27.4 (L) MCHC Latest Ref Range: 32.0 - 36.0 g/dL 33.5 RDW-CV Latest Ref Range: <15.0 % 16.0 (H) Platelet Count Latest Ref Range: 140 - 440 K/uL 376 MPV Latest Units: fL 6.4 Absolute Neutrophils Latest Ref Range: 1.80 - 8.50 K/uL 4.80 Absolute Lymphocytes Latest Ref Range: 0.60 - 3.20 K/uL 0.90 Absolute Monocytes Latest Ref Range: 0.00 - 1.00 K/uL 0.60 Absolute Eosinophils Latest Ref Range: 0.00 - 0.40 K/uL 0.30 Absolute Basophils Latest Ref Range: 0.00 - 0.10 K/uL 0.10 % Neutrophils Latest Ref Range: 45.0 - 82.0 % 72.8 % Lymphocytes Latest Ref Range: 20.0 - 45.0 % 12.8 (L) % Monocytes Latest Ref Range: 4.0 - 12.0 % 9.7 % Eosinophils Latest Ref Range: 0.0 - 5.0 % 3.9 % Basophils Latest Ref Range: 0.0 - 1.0 % 0.8 ESR Latest Ref Range: <30 mm/hr 49 (H) NA Latest Ref Range: 136 - 149 mmol/L 139 K Latest Ref Range: 3.5 - 5.1 mmol/L 4.1 Chloride Latest Ref Range: 98 - 109 mmol/L 104 Carbon dioxide Latest Ref Range: 24 - 31 mmol/L 25 ANION GAP Latest Ref Range: 3 - 16 mmol/L 10 GLUCOSE Latest Ref Range: 70 - 109 mg/dL 107 BUN Latest Ref Range: 7 - 18 mg/dL 14 Creatinine Latest Ref Range: 0.60 - 1.30 mg/dL 0.67 BUN/CREA Unknown 20.9 ALBUMIN Latest Ref Range: 3.2 - 5.0 g/dL 3.4 Albumin/Globulin ratio Latest Ref Range: 0.8 - 2.0 1.3 Total protein Latest Ref Range: 6.0 - 7.8 g/dL 6.1 EGFR IF NOT Latest Ref Range: >=60 mL/min/1.73m2 >60 Calcium Latest Ref Range: 8.3 - 10.5 mg/dL 8.9 ALK PHOS Latest Ref Range: 40 - 110 U/L 125 (H) ALT (SGPT) (REF) Latest Ref Range: 6 - 45 U/L 28 AST (SGOT) (REF) Latest Ref Range: 10 - 42 U/L 31 LDH TOTAL Latest Ref Range: 91 - 180 U/L 156 Bilirubin Total (Calculated) Latest Ref Range: 0.1 - 1.5 mg/dL 0.3 GLOBULIN Latest Ref Range: 2.1 - 3.8 g/dL 2.7 CEA Latest Ref Range: 0.0 - 10.0 ng/mL 2.1 Pharmacovigilance: Palliative Care: Patient's Medications New Prescriptions No medications on file Modified Medications No medications on file Discontinued Medications No medications on file Procedure: Portions of this chart may have been created with EveryMove voice recognition software. Occasi onal wrong-word or [...] + | CBC W/AUTO | STAT | 01/02/2018 | Rectal cancer | Results for this | | DIFFERENTIAL | | 2:41 PM | (HCC) | procedure are in the | | | | PDT | | results section. | + +--------+ + + + | SEDIMENTATION RATE | STAT | 01/02/2018 | Rectal cancer | Results for this | | | | 2:41 PM | (HCC) | procedure are in the | | | | PDT | | results section. | + +--------+ + + + | LACTATE | STAT | 01/02/2018 | Rectal cancer | Results for this | | DEHYDROGENASE | | 2:41 PM | (HCC) | procedure are in the | | | | PDT | | results section. | + +--------+ + + + | CEA | STAT | 01/02/2018 | Rectal cancer | Results for this | | | | 2:41 PM | (HCC) | procedure are in the | | | | PDT | | results section. | + +--------+ + + + | COMPREHENSIVE | STAT | 01/02/2018 | Rectal cancer | Results for this | | METABOLIC PANEL | | 2:41 PM | (HCC) | procedure are in the | | | | PDT | | results section. | + +--------+ + + + | IMAGING REPORT - | | 09/28/2017 | | Results for this | | EXTERNAL SCAN | | 12:00 AM | | procedure are in the | | | | PST | | results section. | + +--------+ + + + documented in this encounter Results CBC w/ Auto Differential (01/02/2018 2:41 PM [...] | Basophils | | K/uL | [facility] | [...] [address] | [place] | [phone] | | [facility] | | [address] | | | - LABORATORY | | [...] | | | | ng/mL | [facility] | | | | [...] + | [facility] | [address] | [place] | [phone] | | [facility] | | [address] | | | - LABORATORY | | [...] 0.67 | 0.60 - 1.30 | [facility] | [...] | mL/min/1.73m2 | [facility] | | | [facility] | RATE,ESTIMATED | | MEDICAL | | | | mL/min/1.32h7Ehlg than | | CENTER - | | [...] 3.4 | 3.2 - 5.0 g/dL | XU [...] [address] | [place] | [phone] | | [facility] | | [address] | | | - LABORATORY | | [...] [address] | [place] | [phone] | | [facility] | | [address] | | | - LABORATORY | | | | + + + + + Sedimentation Rate (01/02/2018 2:41 PM PDT) + +--------+ + + + | Component | Value | Ref Range | Performed | Pathologist | | | | | At | Signature | + +--------+ + + + | ESR | 49 (H) | <30 mm/hr | XU | | | | | [...] [address] | [place] | [phone] | | [facility] | | [address] | | | - LABORATORY | | | | + + + + + IMAGING REPORT - EXTERNAL SCAN (09/28/2017 12:00 AM PST) + + + | [...]
--- OUTSIDE RECORDS SUMMARY | ~2019-06-11 | XMS | Encounter Summary ---
Demographics + + + | Address | [address] | | | [place] [address] | + + + | Home Phone [...] Providers + +------+ + | Care State Trooper Name | Role | Phone | + +------+ + | Kristian Anderson DO | PCP | | + +------+ + Encounter Details +--------+ + + + + | Date | Type | Department | Care Team | Description | +--------+ + + + + | 06/28/ | Telephone | [facility] | Ailyn Wolff MD | | | 2018 | | [place] [facility] [address] | [address] | | | | | [address] | [place], | | | | | Mailcode: [place] | [place] [address] | | | | | for Health and | [phone] | | | | | [place] [address] | | | | | | [place], [place] | | | | | | [address] | | | | | | [phone] | | | +--------+ + + + [...] | | | | Amit[place] Hines [facility] | | | | | | [place] [address] | | | | | | [phone] | | | | | | | | +--------+---------+ + + + documented as of this encounter Visit Diagnoses Not on filedocumented in this encounter"
--- OUTSIDE RECORDS SUMMARY | ~2019-06-11 | XMS | Encounter Summary ---
Demographics + + + | Address | [address] | | | [place] [address] | + + + | Home Phone | | + + + | Preferred Language | Unknown | + + + | Marital Status | | + + + | Jewish Affiliation | Unknown | + + + | Race | Unknown | + + + | Ethnic Group | Unknown | + + + Author + + + | Author | [facility] | | | and [place] | + + + | Organization | [facility] | | | and [place] | + + + | Address | Unknown | + + + | Phone | Unavailable | + + + Support + + + + + | Name | Relationship | Address | Phone | + + + + + | Lamar Phillips | REZA | [place] [address] | | + + + + + Care Team Providers + +------+ + | Care Psychologist Industrial Organizational Name | Role | Phone | + [...] JM | | | | | [address] [place] | [place] [address] | | | | | [place] [address] | [phone] | | | | | [phone] | | | +--------+ + + + [...]
--- OUTSIDE RECORDS SUMMARY | ~2019-06-11 | XMS | Encounter Summary ---
Demographics + + + | Address | [address] | | | [place] [address] | + + + | Home Phone [...] Team Providers + +------+ + | Care Product Tester Name | Role | Phone | [...] | | | 2016 | Event | [facility] | MD Brock [address] | | | | | Admitting Desk | [address] | | | | | Located on the [address] | [place], [place] | | | | | [facility] [address] | [address] | | | | | [address] | [phone] | | | | | [place], [place] | | | | | | [address] | [place] [address] | | | | | | LASHAWN Loja [address] | | | | | | [address] | | | | | | [place], [place] | | | | | | [address] | | | | | | [phone] | | | | | | | | +--------+ + + + + Anesthesia Record + + + + + | Procedure Name | Responsible | Anesthesia Start | Anesthesia Stop Time | | | Anesthesiologist | Time | | + + + + + | LOW ANTERIOR | Gerry Mendez, | 06/30/17720 | 06/30/17 3585 | | RESECTION, POSTERIOR | MD | [...] | | IV | 07/02/17; 1217 | FUSING FURNACE LOADER | | +--------+ + + + | [...] | | | | | Amita H[place], | | | | | | [place] [address] | | | | | | [phone] | | | | | | | [...] SUPRIYA KO | | | IPerformed by FUSING FURNACE LOADER: LA NENA DOMÍNGUEZ Attempt X2 by LASHAWN. [...] PST | | | | | Until [facility] 06/30/17 at 1712 | | | [...] PST | | | | | Until [facility] 06/30/17 at 1712 | iology | [...] 30 mg | | | | Starting [facility] 06/30/17 at 0809, | | 17 [...]
--- OUTSIDE RECORDS SUMMARY | ~2019-06-11 | XMS | Encounter Summary ---
Demographics + + + | Address | [address] | | | [place] [address] | + + + | Home Phone [...] Providers + +------+ + | Care Assistant Cook Name | Role | Phone | [...] | | | 2016 | Event | [facility] | MD Brock [address] | | | | | Admitting Desk | [address] | | | | | Located on the [address] | [place], [place] | | | | | [facility] [address] | [address] | | | | | [address] | [phone] | | | | | [place], [place] | | | | | | [address] | [place] | | | | | | LASHAWN [place]ja [address] | | | | | | [address] | | | | | | [place], [place] | | | | | | [address] | | | | | | [phone] | | | | | | | | +--------+ + + + + Anesthesia Record + + + + + | Procedure Name | Responsible | Anesthesia Start | Anesthesia Stop Time | | | Anesthesiologist | Time | | + + + + + | LOW ANTERIOR | Gerry Mendez, | 06/30/17720 | 06/30/17 3735 | | RESECTION, POSTERIOR | MD | [...] | | IV | 07/02/17; 1217 | STORES ASSISTANT | | +--------+ + + + | [...] | | | | | [place]mita H[place], | | | | | | [place] [address] | | | | | | [phone] | | | | | | | [...] SUPRIYA KO | | | IPerformed by STORES ASSISTANT: LA NENA DOMÍNGUEZ Attempt X2 by LASHAWN. [...] PST | | | | | Until [facility] 06/30/17 at 1712 | | | [...] PST | | | | | Until [facility] 06/30/17 at 1712 | iology | [...] 30 mg | | | | Starting [facility] 06/30/17 at 0809, | | 17 [...]
--- OUTSIDE RECORDS SUMMARY | ~2019-06-11 | XMS | Encounter Summary ---
Demographics + + + | Address | [address] | | | [place] [address] | + + + | Home Phone [...] + | Organization | [facility] | | | and [place] | + + + | Address | Unknown | + + + | Phone | Unavailable | + + + Support + + + + + | Name | Relationship | Address | Phone | + + + + + | Lamar Phillips | REZA | [place] [address] | | + + + + + Care Team Providers + +------+ + | Care Poiser Balance Name | Role | Phone | + [...] + + | 12/28/ | Hospital | [facility] | Joel Alfaro DO | | | 2017 | Encounter | MED CTR RADIATION | [address] | | | | | ONCOLOGY [address] | [place], [place] | | | | | [place], | [address] | | | | | [place] [address] | | | | | | [phone] | | | +--------+ + + + [...] Reese MD - 01/20/2017 12:00 AM [facility] On Treatment Note Name: Jenn Parada ID: [id number] Date of Service:01/20/2017 ICD-9 and Description: C20 [...] 4:00:21 PM Page 1 of 2 CSN: [id number] signed by Florence Reese MD at 02/07/2017 4:00 PM PDTL Joel hickman DO - 01/13/2017 11:25 AM [facility] On Treatment Note Name: Jenn Parada ID: [id number] Date of Service:01/13/2017 ICD-9 and Description: C20 [...] 11:26:18 AM Page 1 of 2 CSN: [id number] signed by Joel Alfaro DO at 01/13/2017 11:26 AM PDTdocasi stewart in this encounter Plan of Treatment Not on filedocumented as of this encounter Visit Diagnoses Not on filedocumented in this encounter"
--- OUTSIDE RECORDS SUMMARY | ~2019-06-11 | XMS | Encounter Summary ---
Demographics + + + | Address | [address] | | | [place] [address] | + + + | Home Phone [...] Team Providers + +------+ + | Care Housing Director Name | Role | Phone | [...] | | 2017 | | Center at [facility] [address] | [address] | Received (CT) | | | | [address] | [place], | | | | | Mailcode: [place] | [place] [address] | | | | | for Health and | [phone] | | | | | [facility] [address] | | | | | | [place], [place] | | | | | | [address] | | | | | | [phone] | | | +--------+ + + + [...] | | | | | [place], | | | | | | [place] [address] | | | | | | [phone] | | | | | | | | +--------+---------+ + + + documented as of this encounter Visit Diagnoses Not on filedocumented in this encounter"
--- OUTSIDE RECORDS SUMMARY | ~2019-06-11 | XMS | Encounter Summary ---
Demographics + + + | Address | [address] | | | [place] [address] | + + + | Home Phone [...] Organization | [facility] | | | and [place] | + + + | Address | Unknown | + + + | Phone | Unavailable | + + + Support + + + + + | Name | Relationship | Address | Phone | + + + + + | Lamar Phillips | REAZ | [place] [address] | | + + + + + Care Team Providers + +------+ + | Care Hospital Insurance Clerk Name | Role | Phone | [...] Other | | 2017 | | MED [facility] | Mike White MD [address] | | | | | ONCOLOGY CLINIC [address] [place] | | | | | [address] [place] | [place] [address] | | | | | [place] [address] | [phone] | | | | | [phone] | | | +--------+ + + + [...]
--- OUTSIDE RECORDS SUMMARY | ~2019-06-11 | XMS | Encounter Summary ---
Demographics + + + | Address | [address] | | | [place] [address] | + + + | Home Phone | | + + + | Preferred Language | Unknown | + + + | Marital Status | | + + + | Anabaptism Affiliation | Unknown | + + + | Race | Unknown | + + + | Ethnic Group | Unknown | + + + Author + + + | Author | [facility] | | | and [place] | + + + | Organization | [facility] | | | and [place] | + + + | Address | Unknown | + + + | Phone | Unavailable | + + + Support + + + + + | Name | Relationship | Address | Phone | + + + + + | Lamar Phillips | REZA | [place] [address] | | + + + + + Care Team Providers + +------+ + | Care Manager Domestic Name | Role | Phone | + [...] [place] | | | | | [address] [place] | [place] [address] | | | | | [place] [address] | [phone] | | | | | [phone] | | | +--------+ + + + [...]
--- OUTSIDE RECORDS SUMMARY | ~2019-06-11 | XMS | Clinical Summary ---
Demographics + + + | Address | [address] | | | [place] [address] | + + + | Home Phone | | + + + | Preferred Language | Unknown | + + + | Marital Status | | + + + | Taoism Affiliation | Unknown | + + + | Race | Unknown | + + + | Ethnic Group | Unknown | + + + Author + + + | Author | [facility] | | | and [place] | + + + | Organization | [facility] | | | and [place] | + + + | Address | Unknown | + + + | Phone | Unavailable | + + + Support + + + + + | Name | Relationship | Address | Phone | + + + + + | Lamar Phillips | REZA | [place] [address] | | + + + + + Care Team Providers + +------+ + | Care Press And Blow Machine Tender Name | Role | Phone [...] 2010 (Rene). Pathological specimens; PAP | | #[id number] "negative for intraepithelial lesions or malignancy." | [...] DIAGNOSIS: Locally Advanced Rectal Cancer, | | [id number], Stage IIA. Willie Barajas presented to the [facility] emergency room on July 20, [...] the rectum. Biopsy specimen number | | [id number] evaluated by Dr. Felipe Nixon of [place] | | Pathology was notable for a tubular adenoma without high-grade | | dysplasia or overt carcinoma. This procedure also included a | | full colonoscopy through the ostomy were 2 additional polyps were | | removed, a tubular adenoma at 35 cm and a hyperplastic polyp at | | [address] C/A/P at [facility] in [place], [place] | | demonstrated no evidence of metastatic disease.4. On September 22, | | 2016 Dr. Thacker placed in internal jugular Port-A-Cath without | | complications.5. MRI of pelvis performed on October 05, 2016 at | | [facility]: Rectal mass 7.7 cm x 6.2 cm x 9.6 cm in length located | | within 3 cm of the anal sphincter and 6.4 cm from the anal verge | | with radiographic extension though multiple areas of the bowel | | wall.6. CT abdomen/pelvis also at [facility] October 05, 2016; large | | almost completely circumferential rectosigmoid mass better | | delineated on the corresponding MRI with adjacent probable | | abscess. No distant metastases identified.7. On October 14, 2016 | | Jenn was evaluated by Dr. Ailyn Wolff and Dr. Shea Mcneill of the | | [facility] where her case was presented | | to their tumor board. Clinical exam is notable for an overt | | rectal carcinoma invading into the vagina. 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 Concerns raised by the [facility] | | [facility] Tumor Board were [...] as mutation analysis." | | Pathological Specimen #[id number] (Linwood Nixon | | Pathology). Tubulovillous adenoma [...] Multidisciplinary Care Team | | Conference at [facility] March 10, 2017; "Given borderline [...] Dr. Ailyn Wolff at the | | [facility]: 06/30/17: Exploratory laparotomy. Extensive lysis of | | adhesions. Excision of left lower quadrant fistula tract. Total | | mesorectal excision, intersphincteric abdominoperineal resection, | | en bloc resection of left ovary and left fallopian tube and | | posterior vaginal wall. Placement of a 19-Nepali Albert drain | | through the right [...] | on August 12, 2017; Dr. Lea, [facility], [place], | | [place]; positive for perianal fistula between anus and vagina.22. | | Clinical exam on August 22, [address] Ailyn Wolff at [facility] who could | | not confirm the presence of perianal fistula.23. Cycle # 11 | | FOLFOX on August 23, 2017.24. Cycle #12 FOLFOX on September 05, | | 2018.25. Port-a-cath removed by Dr. Marty Thacker.26. CT | | chest/abdomen/pelvis ([facility], [place]) on September 26, 2017; marked | | reduction of large central rectal/perirectal mass, very small | | residual fluid collection with adjacent fat stranding which may | | represent short residual Velasquez's pouch, residual postoperative | | fluid or residual necrotic tumor.27. MRI of pelvis September 28, 2017 | | ([facility], [place], [place]); Small gas and fluid collection in the | | presacral space, concerning for abscess formation. Postoperative | | changes of low anterior resection, with left lower quadrant end | | colostomy. Left lower quadrant parastomal hernia. Last | | Assessment & Plan: Jenn Parada returned to clinic on | | 01/02/2018 with a head gauge unit operator for follow up of her locally advanced | | rectal cancer.Interval history is notable for the fact that | | Kirstie electively removed Jenn's port-a-cath.Interval history is | | also notable for the fact that Jenn had an encounter with her | | surgeon, Dr. Ailyn Wolff at [facility]. Dr. Wolff has asked Jenn to follow up | | with him in [place] every three months.Assessment; Locally | | advanced rectal cancer, status post 10 cycles of neoadjuvant | | FOFLOX, followed by definitive surgery on May 16, 2017, | | followed by two adjuvant cycles of FOLFOX completed on August | 2017.Plan; Jenn will follow up with Dr. Wolff in [place] every | | three months. Currently, follow-up [...] | [employer] | [employer] | [id number] | | [phone] | | [employer] | | MEDICAID HMO [...] | | 8 (Home) | [place] [address] | + +--------+ +--------+ + + Advance Directives + + + + + | Type | Date Recorded | Patient | Explanation | | | | Dashboard Developer | | + + + + + | Power of | | | | | Bench Scientist | | | | + + + + + | Advance | | | | | Directive | | | | + + + + +
--- OUTSIDE RECORDS SUMMARY | ~2019-06-11 | XMS | Encounter Summary ---
Demographics + + + | Address | [address] | | | [place] [address] | + + + | Home Phone [...] Team Providers + +------+ + | Care Computing Consultant Name | Role | Phone | [...] | | Center at [facility] [address] | [address] | | | | | [address] | [place] Hines [facility] | | | | | Mailcode: [place] | [place] [address] | | | | | for Health and | [phone] | | | | | [facility] 2 | | | | | | [place], [place] | | | | | | [address] | | | | | | [phone] | | | +--------+ + + + [...] | | | | | [place], | | | | | | [place] [address] | | | | | | [phone] | | | | | | | | +--------+---------+ + + + documented as of this encounter Visit Diagnoses Not on filedocumented in this encounter"
--- OUTSIDE RECORDS SUMMARY | ~2019-06-11 | XMS | Encounter Summary ---
Demographics + + + | Address | [address] | | | [place] [address] | + + + | Home Phone [...] Providers + +------+ + | Care Senior Core Java Developer Name | Role | Phone | + +------+ + | Silvioct Kristian | PCP | | + +------+ + Encounter Details +--------+------+ + + + | Date | Type | Department | Care Team | Description | +--------+------+ + + + | 11/27/ | Lab | Laboratory at [facility] | | Rectal cancer (HCC) | | 2019 | | [address] | | | | | | [place], [place] | | | | | | [address] | | | | | | [phone] | | | +--------+------+ + + + [...] | | | | | [place]zy [place], | | | | | | [place] [address] | | | | | | [phone] | | | | | | | [...] | + + + + + | [facility] | [address] | [place] [address] | | | SERVICES, CORE | [address] | | | + + + + + documented in this encounter Visit Diagnoses + + | Diagnosis | + + | Rectal cancer (HCC) Malignant neoplasm of rectum | + + documented in this encounter"
--- OUTSIDE RECORDS SUMMARY | ~2019-06-11 | XMS | Encounter Summary ---
Demographics + + + | Address | [address] | | | [place] [address] | + + + | Home Phone | | + + + | Preferred Language | Unknown | + + + | Marital Status | | + + + | Uatsdin Affiliation | Unknown | + + + | Race | Unknown | + + + | Ethnic Group | Unknown | + + + Author + + + | Author | [facility] | | | and [place] | + + + | Organization | [facility] | | | and [place] | + + + | Address | Unknown | + + + | Phone | Unavailable | + + + Support + + + + + | Name | Relationship | Address | Phone | + + + + + | Lamar Phillips | REZA | [place] [address] | | + + + + + Care Team Providers + +------+ + | Care Vertica Architect Name | Role | Phone | [...] + + + + | 02/08/ | Documentati | [facility] | Vu Guillermo, | Psychosocial Support | | 2017 | on | MED CTR MEDICAL | [facility] | | | | | [facility] [address] | | | | | | [address] | | | | | | [place] [address] | | | | | | [phone] | | | +--------+ + + + [...] encounter Progress Notes Vu Guillermo MSW - 02/08/2017 11:59 PM PDTMSW met with patient, Jenn Parada, to introduc e self and administer NCCN Distress Screening Tool. Jenn is being treated for rectal cancer. She lives in [place]. Jenn is covered by [employer] [place]. Jenn is alert and oriented X4 and reports no history of depression and/or anxiety. There i s no evidence of thought disorder or other mental illness. Jenn reports level of distress i s (did not indicate level) on a 10 point scale. She attributes level of distress to housing , insurance/finanial, work/wchool, sadness, worry, appearance, changes in urination, diarrhe a, memory/concentration issues, and dry/congested nose. She wrote that she is mainly worried about how to pay the bills. Patient reports an adequate support system, good coping skills and strong horacio. This Folder Seamer Automatic allowed for expression of feeling and provided supportive counseling and information regarding the emotional aspects of a cancer diagnosis and treatment. Encourage d Jenn to attend community support group and offered literature on patient s diagnosis. This Folder Seamer Automatic and Medical Services Coordinator are available to provide emotional support an d additional community resource information and referral as needed. Jenn is aware of support services and how to access them. Will follow up at appointments and by phone as needed.Stephanie ctronically signed by GEETA North at 02/10/2017 12:12 PM PDTdocumented in this enco unter Plan of Treatment Not on filedocumented as of this encounter Visit Diagnoses Not on filedocumented in this encounter"
--- OUTSIDE RECORDS SUMMARY | ~2019-06-11 | XMS | Encounter Summary ---
Demographics + + + | Address | [address] | | | [place] [address] | + + + | Home Phone | | + + + | Preferred Language | Unknown | + + + | Marital Status | | + + + | Latter Day Affiliation | Unknown | + + + | Race | Unknown | + + + | Ethnic Group | Unknown | + + + Author + + + | Author | [facility] | | | and [place] | + + + | Organization | [facility] | | | and [place] | + + + | Address | Unknown | + + + | Phone | Unavailable | + + + Support + + + + + | Name | Relationship | Address | Phone | + + + + + | Lamar Phillips | REZA | [place] [address] | | + + + + + Care Team Providers + +------+ + | Care Commutator Repairer Name | Role | Phone | + +------+ + | Kristian Anderson DO | PCP | | + +------+ + Encounter Details +--------+ + + + + | Date | Type | Department | Care Team | Description | +--------+ + + + + | 03/14/ | Orders Only | [facility] | Janel, | Rectal cancer (HCC) | | 2017 | | [facility] MED[facility] | Mike White MD [address] | (Primary Dx) | | | | [facility] CLINIC [address] [place] | | | | | [address] [place] | [place] [address] | | | | | [place] [address] | [phone] | | | | | [phone] | | | +--------+ + + + [...]
--- OUTSIDE RECORDS SUMMARY | ~2019-06-11 | XMS | Encounter Summary ---
Demographics + + + | Address | [address] | | | [place] [address] | + + + | Home Phone [...] Organization | [facility] | | | and [place] | + + + | Address | Unknown | + + + | Phone | Unavailable | + + + Support + + + + + | Name | Relationship | Address | Phone | + + + + + | Lamar Phillips | REZA | [place] [address] | | + + + + + Care Team Providers + +------+ + | Care Glue Jointer Operator Name | Role | Phone | [...] | Joel C, DO | [address] | | | | | neoplasm of | [address] | [place], | | | | | rectum (HCC) | [address] | [place] | | | | | Procedures | [place], | [address] | | | | | MRI Pelvis | [place] [address] | Phone: | | | | | w wo | Phone: | [phone] | | | | | Contrast AR | [phone] | Fax: | | | | | MRI, | Fax: | [phone] | | | | | PELVIS, | [phone] | | | | | | COMBO [...] + + | 01/03/ | Hospital | [facility] | Joel Alfaro DO | Malignant neoplasm | | 2017 | Encounter | MED CTR MRI [address] | [address] | of rectum (HCC) | | | | [address] [place], | [place], [place] | | | | | [place] [address] | [id number] | | | | | [phone] | | | +--------+ + + + [...] sigmoid colon in the perirectal fat (axial D0ttftl 8), | | this is drained by [...]
--- OUTSIDE RECORDS SUMMARY | ~2019-06-11 | XMS | Encounter Summary ---
Demographics + + + | Address | [address] | | | [place] [address] | + + + | Home Phone [...] Providers + +------+ + | Care Wood And Wood Products Factory Worker Name | Role | Phone | + +------+ + | Kristian Anderson DO | PCP | | + +------+ + Encounter Details +--------+ + + + + | Date | Type | Department | Care Team | Description | +--------+ + + + + | 12/09/ | Procedure | Diagnostic Imaging | | | | 2016 | Pass | Services at [facility] | | | | | | [address] | | | | | | [place] Mailcode: | | | | | | [address] | | | | | | [facility] | | | | | | [place], [place] | | | | | | [address] | | | | | | [phone] | | | +--------+ + + + [...] | | | | | | [place] [address] | | | | | | [phone] | | | | | | | | +--------+---------+ + + + documented as of this encounter Visit Diagnoses Not on filedocumented in this encounter"
--- OUTSIDE RECORDS SUMMARY | ~2019-06-11 | XMS | Encounter Summary ---
Demographics + + + | Address | [address] | | | [place] [address] | + + + | Home Phone [...] Team Providers + +------+ + | Care Chauffeur Airport Limousine Name | Role | Phone | + [...] | | Center at [facility] [address] | [address] | Received (MRI) | | | | [address] | [place], | | | | | Mailcode: [place] | [place] [address] | | | | | for Health and | [phone] | | | | | [facility] 2 | | | | | | [place], [place] | | | | | | [address] | | | | | | [phone] | | | +--------+ + + + [...] | | | | | [place], | | | | | | [place] [address] | | | | | | [phone] | | | | | | | | +--------+---------+ + + + documented as of this encounter Visit Diagnoses Not on filedocumented in this encounter"
--- OUTSIDE RECORDS SUMMARY | ~2019-06-11 | XMS | Encounter Summary ---
Demographics + + + | Address | [address] | | | [place] [address] | + + + | Home Phone [...] Providers + +------+ + | Care Medical Research Scientist Name | Role | Phone | [...] 2018 | | Center at [facility] [address] | [address] | | | | | [address] | [place]a Hines [facility] | | | | | Mailcode: [place] | [place] [address] | | | | | for Health and | [phone] | | | | | [facility] 2 | | | | | | [place], [place] | | | | | | [address] | | | | | | [phone] | | | +--------+ + + + [...] | | | | | [place] H[place], | | | | | | [place] [address] | | | | | | [phone] | | | | | | | | +--------+---------+ + + + documented as of this encounter Visit Diagnoses Not on filedocumented in this encounter"
--- OUTSIDE RECORDS SUMMARY | ~2019-06-11 | XMS | Encounter Summary ---
Demographics + + + | Address | [address] | | | [place] [address] | + + + | Home Phone | | + + + | Preferred Language | Unknown | + + + | Marital Status | | + + + | Jain Affiliation | Unknown | + + + | Race | Unknown | + + + | Ethnic Group | Unknown | + + + Author + + + | Author | [facility] | | | and [place] | + + + | Organization | [facility] | | | and [place] | + + + | Address | Unknown | + + + | Phone | Unavailable | + + + Support + + + + + | Name | Relationship | Address | Phone | + + + + + | Lamar Phillips | REZA | [place] [address] | | + + + + + Care Team Providers + +------+ + | Care Helicopter Pilot Name | Role | Phone | [...] | | MD [address] | | | | | | [address] | [place], | | | | | | [place], | [place] [address] | | | | | | [place] [address] | Phone: | | | | | | Phone: | [phone] | | | | | | [phone] | Fax: | | | | | | Fax: | [phone] | | | | | | [phone] | | +--------+ + + + + [...] ST [place] | | | | | [address] [place], | [place] [address] | | | | | [place] [address] | [phone] | | | | | [phone] | | | +--------+ + + + [...]
--- OUTSIDE RECORDS SUMMARY | ~2019-06-11 | XMS | Encounter Summary ---
Demographics + + + | Address | [address] | | | [place] [address] | + + + | Home Phone [...] Team Providers + +------+ + | Care Astrophysics Teacher Name | Role | Phone | + +------+ + | Silvioct Kristian | PCP | | + +------+ + Reason for Visit + + + | Reason | Comments | + + + | Outside Records | CT chest, abdomen, pelvis September 2017 and MRI September 2017 St | | Received | [facility]. Images in IMP[employer] | + + + Encounter Details +--------+ + + + + | Date | Type | Department | Care Team | Description | +--------+ + + + + | 01/04/ | Abstract | Digestive Health | Ailyn Wolff MD | Outside Records | | 2018 | | Center at [facility] [address] | [address] | Received (CT chest, | | | | [address] | [address] [place], | abdomen, pelvis | | | | Mailcode: Center | [place] [address] | September 2017 and MRI | | | | for Health and | [phone] | September 2017 St | | | | [facility] [address] | | [facility]. | | | | [place], [place] | | Images in IMPAX) | | | | [address] | | | | | | [phone] | | | +--------+ + + + [...] | | | | | | [place] [address] | | | | | | [phone] | | | | | | | | +--------+---------+ + + + documented as of this encounter Visit Diagnoses Not on filedocumented in this encounter"
--- OUTSIDE RECORDS SUMMARY | ~2019-06-11 | XMS | Encounter Summary ---
Demographics + + + | Address | [address] | | | [place] [address] | + + + | Home Phone | | + + + | Preferred Language | Unknown | + + + | Marital Status | | + + + | Jain Affiliation | Unknown | + + + | Race | Unknown | + + + | Ethnic Group | Unknown | + + + Author + + + | Author | [facility] | | | and [place] | + + + | Organization | [facility] | | | and [place] | + + + | Address | Unknown | + + + | Phone | Unavailable | + + + Support + + + + + | Name | Relationship | Address | Phone | + + + + + | Lamar Phillips | REZA | [place] [address] | | + + + + + Care Team Providers + +------+ + | Care Health Occupations Instructor Name | Role | Phone | + +------+ + | Kristian Anderson DO | PCP | | + +------+ + Encounter Details +--------+ + + + + | Date | Type | Department | Care Team | Description | +--------+ + + + + | 06/28/ | Documentati | [facility] | Sonal Nevarez | | | 2017 | on | MED CNT ONCOLOGY | A, OT | | | | | THERAPY [address] | | | | | | [place], | | | | | | [place] [address] | | | | | | [phone] | | | +--------+ + + + [...] documented as of this encounter Progress Notes Sonal Nevarez OT - [facility]19[facility]2017 [facility] [address] [place] [address] Oncology Rehab Screening Date: 01/19/2017 Patient Information Patient Name: Jenn Parada Date of : 1960 Age: 56 y.o. Patient was seen for oncology rehab screening due to new patient consult. Patient currently being treated for rectal cancer and treatment regimen includes chemoradiation. Introduced self to patient and advised her of role and availability of Oncology Rehab Navigator. Florecita mota is currently functioning well. Initially had pain r/t pressure of tumor on spine, but tu mor size has reduced since onset of chemo and radiation and her pain has decreased. She is experiencing fatigue, but remains functional. 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 She has just recently reduced her hours to 16-20 hours pe r week due to fatigue and demands of job and treatment schedule. Patient also experiencing affects of "chemo brain"; per her report she is having s/t memory and concentration difficul ties. Discussed strategies to combat cognitive challenges during cancer treatment, as well as energy conservation techs for fatigue. Patient with good understanding of her physical a nd emotional needs during this time. Encouraged her to contact oncology therapist if she sh ould have any further concerns or questions. Patient to contact therapist or doctor if change in status. Electronically signed by: Sonal Nevarez OT, 01/19/2017 11:33 Patient Name: Jenn Parada/: 1960/ documented in this encounter Plan of Treatment Not on filedocumented as of this encounter Visit Diagnoses Not on filedocumented in this encounter
--- OUTSIDE RECORDS SUMMARY | ~2019-06-11 | XMS | Encounter Summary ---
Demographics + + + | Address | [address] | | | [place] [address] | + + + | Home Phone [...] Providers + +------+ + | Care Paper Pattern Inspector Name | Role | Phone | [...] 2018 | | Center at [facility] [address] | [address] | Review | | | | [address] | Amita Hines [place], | | | | | Mailcode: [place] | [place] [address] | | | | | for Health and | [phone] | | | | | [facility] 2 | | | | | | [place], [place] | | | | | | [address] | | | | | | [phone] | | | +--------+ + + + [...] | | | | | [place]mita Hines [place], | | | | | | [place] [address] | | | | | | [phone] | | | | | | | | +--------+---------+ + + + documented as of this encounter Visit Diagnoses Not on filedocumented in this encounter"
--- OUTSIDE RECORDS SUMMARY | ~2019-06-11 | XMS | Encounter Summary ---
Demographics + + + | Address | [address] | | | [place] [address] | + + + | Home Phone [...] Team Providers + +------+ + | Care Station Usher Name | Role | Phone | + +------+ + | Kristian Anderson DO | PCP | | + +------+ + Encounter Details +--------+ + + + + | Date | Type | Department | Care Team | Description | +--------+ + + + + | 10/04/ | Abstract | Dig[facility]ive Health | Clinic, Surgery | | | 2017 | | [facility] [address] | | | | | | [address] | | | | | | Mailcode: [facility] | | | | | | for Health and | | | | | | Healing, Building [address] | | | | | | [place], [place] | | | | | | [address] | | | | | | [phone] | | | +--------+ + + + [...] | | | | | [address] [place], | | | | | | [place] [address] | | | | | | [phone] | | | | | | | | +--------+---------+ + + + documented as of this encounter Visit Diagnoses Not on filedocumented in this encounter"
--- OUTSIDE RECORDS SUMMARY | ~2019-06-11 | XMS | Encounter Summary ---
Demographics + + + | Address | [address] | | | [place] [address] | + + + | Home Phone [...] Providers + +------+ + | Care Senior Service Technician Name | Role | Phone | [...] 2017 | | Center at [facility] [address] | [address] | | | | | [address] | [address] [address] [place], | | | | | Mailcode: [place] | [place] [address] | | | | | for Health and | [phone] | | | | | [facility] | | | | | | [place], [place] | | | | | | [address] | | | | | | [phone] | | | +--------+ + + + [...] | | | | | [address] [place], | | | | | | [place] [address] | | | | | | [phone] | | | | | | | | +--------+---------+ + + + documented as of this encounter Visit Diagnoses Not on filecumented in this encounter"
--- OUTSIDE RECORDS SUMMARY | ~2019-06-11 | XMS | Encounter Summary ---
Demographics + + + | Address | [address] | | | [place] [address] | + + + | Home Phone [...] + +------+ + | Care Fire Control Mechanic Name | Role | Phone | + +------+ + | Silvioct Kristian | PCP | | + +------+ + Reason for Visit + + + | Reason | Comments | + + + | Outside Records | CT chest, abdomen, pelvis September 2017 and MRI September 2017 St | | Received | [facility]. Images in IMPAX | + + + Encounter Details +--------+ + + + + | Date | Type | Department | Care Team | Description | +--------+ + + + + | 01/04/ | Abstract | Digestive Health | Ailyn Wolff MD | Outside Records | | 2018 | | Center at [facility] [address] | [address] | Received (CT chest, | | | | [address] | [address] [place], | abdomen, pelvis | | | | Mailcode: Center | [place] [address] | September 2017 and MRI | | | | for Health and | [phone] | September 2017 St | | | | [facility] | | [facility]. | | | | [place], [place] | | Images in IMPAX) | | | | [address] | | | | | | [phone] | | | +--------+ + + + [...] | | | | | | [place] [address] | | | | | | [phone] | | | | | | | | +--------+---------+ + + + documented as of this encounter Visit Diagnoses Not on filedocumented in this encounter"
--- OUTSIDE RECORDS SUMMARY | ~2019-06-11 | XMS | Encounter Summary ---
Demographics + + + | Address | [address] | | | [place] [address] | + + + | Home Phone [...] Organization | [facility] | | | and [place] | + + + | Address | Unknown | + + + | Phone | Unavailable | + + + Support + + + + + | Name | Relationship | Address | Phone | + + + + + | Lamar Phillips | REZA | [place] [address] | | + + + + + Care Team Providers + +------+ + | Care Management Specialist Name | Role | Phone | [...] neoplasm of | Mike C, | [address] | | | | | rectum (HCC) | MD [address] | [place], | | | | | Procedures | [address] | [place] [address] | | | | | [place] | [place], | Phone: | | | | | [place] | [place] [address] | [phone] | | | | | INJECTION, | Phone: | Fax: | | | | | [address] | [phone] | [phone] | | | | | NORMAL | Fax: | | | | | | SALINE | [phone] | | | | | | SOLUTION | | | | | | | INFUS, 500 | | | | | | | ML AR | | | | | | | NORMAL | | | | | | | SALINE | | | | | | | SOLUTION | | | | | | | INFUS, 250 | | | | | | | ML AR | | | | | | | STERILE | | | | | | | WATER/SALINE | | | | | | | , 10 ML AR | | | | | | | CHEMOTHER, | | | | | | | IV PUSH,EA | | | | | | | ADD DRUG AR | | | | | | | CHEMOTHER, | | | | | | | IV INFUSION, | | | | | | | 1 HR AR | | | | | | | CHEMOTHER, | | | | | | | IV INFUSION, | | | | | | | EA HR AR | | | | | | | CHEMOTHER,NO | | | | | | | N-HORMONE | | | | | | | ANTI-NEOPL, | | | | | | | SUB-Q/IM AR | | | | | | | CHEMOTHER | | | | | | | HORMON | | | | | | | ANTINEOPL | | | | | | | SUB-Q/IM AR | | | | | | | ONDANSETRON | | | | | | | HCL | | | | | | | INJECTION, 1 | | | | | | | MG AR | | | | | | | DEXAMETHASON | | | | | | | E SODIUM | | | | | | | PHOS, 1 MG | | | | | | | AR LORAZEPAM | | | | | | | INJECTION, | | | | | | | 2 MG AR | | | | | | | OXALIPLATIN, | | | | | | | .5 MG AR | | | | | | | LEUCOVORIN | | | | | | | CALCIUM | | | | | | | INJECTION, | | | | | | | 50 MG AR | | | | | | | DIPHENHYDRAM | | | | | | | INE HCL | | | | | | | INJECTIO, 50 | | | | | | | MG AR | | | | | | | METHYLPREDNI | | | | | | | SOLONE | | | | | | | INJECTION, | | | | | | | 125 MG AR | | | | | | | ADRENALIN | | | | | | | EPINEPHRINE | | | | | | | INJECT, .1 | | | | | | | MG AR | | | | | | | ALBUTEROL | | | | | | | COMP CON, 1 | | | | | | | MG AR | | | | | | | ALBUTEROL | | | | | | | NON-COMP | | | | | | | CON, 1 MG | | | | | | | AR | | | | | | | INJECTION, | | | | | | | FAMOTIDINE, | | | | | | | 20 MG | | | +--------+--------+ + + + + Encounter Details +--------+ + + + + | Date | Type | Department | Care Team | Description | +--------+ + + + + | 04/18/ | Hospital | [facility] | Calvin Landrum | Rectal cancer (HCC); | | 2017 | Encounter | MED CTR CHEMO | MD Mike [address] | Lichen sclerosus | | | | INFUSION [address] | [address] [place] | | | | | [address] [place], | [place] [address] | | | | | [place] [address] | [phone] | | | | | [phone] | | | +--------+ + + + [...] encounter Progress Notes Jada Jauregui RN - 04/18/2017 12:15 PM PDTDischarged in stable condition.Bricea jonathan signed by Jada Jauregui RN at 04/18/2017 2:24 PM PDTdocumented in this encounter Plan of Treatment Not on filedocumented as of this encounter Procedures + +--------+ + + + | Procedure Name | Priori | Date/Time | Associated Diagnosis | Comments | | | ty | | | | + +--------+ + + + | CBC WITH | STAT | 04/18/2017 | Rectal cancer | Results for this | | DIFFERENTIAL | | 8:02 AM | (HCC) | procedure are in the | | | | PDT | | results section. | + +--------+ + + + | LACTATE | STAT | 04/18/2017 | Rectal cancer | Results for this | | DEHYDROGENASE | | 8:02 AM | (HCC) | procedure are in the | | | | PDT | | results section. | + +--------+ + + + | CEA | STAT | 04/18/2017 | Rectal cancer | Results for this | | | | 8:02 AM | (HCC) | procedure are in the | | | | PDT | | results section. | + +--------+ + + + | COMPREHENSIVE | STAT | 04/18/2017 | Rectal cancer | Results for this | | METABOLIC PANEL | | 8:02 AM | (HCC) | procedure are in the | | | | PDT | | results section. | + +--------+ + + + documented in this encounter Results CBC with Differential (04/18/2017 8:02 AM PDT) + + + + + + | Component | Value | Ref Range | Performed | Pathologist | | | | | At | Signature | + + + + + + | WBC | 6.3 | 4.0 - 11.0 K/uL | [facility] | | | | | [facility] | | [facility] | | | | | [facility] - | | | | | | LABORATORY | | + + + + + + | RBC | 3.75 | 3.70 - 5.20 | [facility] | | | | | M/uL | [facility] | | | | | | [facility] | | | | | | CENTER - | | | | | | LABORATORY | | + + + + + + | Hemoglobin | 10.9 (L) | 11.5 - 16.0 | [facility] | | | | | g/dL | [facility] | | | | | | [facility]ICAL | | | | | | CENTER - | | | | | | LABORATORY | | + + + + + + | Hematocrit | 32.8 (L) | 34.0 - 47.0 % | [...] + + + + | % | 77.5 | 45.0 - 82.0 % | [facility] | | | Neutrophils | | | [facility] | | | | | | [facility]ICAL | | | | | | CENTER - | | | | | | LABORATORY | | + + + + + + | % | 8.5 (L) | 20.0 - 45.0 % | [facility] | | | Lymphocytes | | | [facility] | | | | | | [facility]ICAL | | | | | | CENTER - | | | | | | LABORATORY | | + + + + + + | % Monocytes | 9.5 | 4.0 - 12.0 % | [facility] [...] + + + | % Basophils | 0.6 | 0.0 - 1.0 % | [facility] | | | | | | [facility] | | | | | | [facility]ICAL | | | | | | CENTER - | | | | | | LABORATORY | | + + + + + + | Absolute | 4.90 | 1.80 - 8.50 | [facility] | [...] + | [facility] | [address] | [place] | [phone] | | [facility] | | [address] | | | - LABORATORY | | | | + + + + + Comprehensive Metabolic Panel (04/18/2017 8:02 AM PDT) + + + + + [...] + + + + | Glucose | 102 | 70 - 109 mg/dL | [facility] | | | | | | [facility] | | | | | | [facility] | | | | | | CENTER - | | | | | | LABORATORY | | + + + + + + | BUN | 11 | 7 - 18 mg/dL | [facility] [...] | mL/min/1.73m2 | [facility] | | | [facility] | RATE,ESTIMATED | | MEDICAL | | | | mL/min/1.50d3Alvm than | | CENTER - | | [...] | 8.4 | 8.3 - 10.5 | [facility] | | | | | mg/dL | [...] + + + + | Total | 5.8 (L) | 6.0 - 7.8 g/dL | [facility] | | | Protein | | | [facility] | | | | | | MEDICAL | | | | | | CENTER - | | | | | | LABORATORY | | + + + + + + | AST | 35Comment: This is an | 10 - 42 [...] + + + + | Alkaline | 80Comment: This is an | 40 - 110 [...] + + + + | BUN/Creatin | 20.8 | | [facility] | | | ine [...] + | [facility] | [address] | [place] | [phone] | | [facility] | | [address] | | | - LABORATORY | | | | + + + + + CEA (04/18/2017 8:02 AM PDT) + +-------+ + + + | Component | Value | Ref Range | Performed | Pathologist | | | | | At | Signature | + +-------+ + + + | CEA | 2.2 | 0.0 - 10.0 | [facility] | | | | | ng/mL | [facility] | | | | | [...] + | [facility] | [address] | [place] | [phone] | | [facility] | | [address] | | | - LABORATORY | | | | + + + + + Lactate Dehydrogenase (04/18/2017 8:02 AM PDT) + +---------+ + + + | Component | Value | Ref Range | Performed | Pathologist | | | | | At | Signature | + +---------+ + + + | LDH TOTAL | 184 (H) | 91 - 180 U/L | [facility] | | | | | | [facility] | | | | | [facility] | | | | | | CENTER - | | | | | | LABORATORY | | + +---------+ + + + + + | Specimen | + + | Blood | + + + + + + + | Performing | Address | City/State/Zipcode | Phone Number | | Organization | | | | + + + + + | [facility] | [address] | [place] | [phone] | | [facility] | | [address] | | | - LABORATORY | | [...] 4,250 mg in sodium | Given | 04/18/20 | 4,250 mg | 2 mL/hr | | | chloride 0.9% 7 mL CADD PUMP | | 17 12:10 | | | | | infusion 4,250 [...] | | | | First dose on Tue04/18/17 at | | | | | | | 1200, OUTPATIENT Chemotherapy: | | | | | [...] mg in dextrose | New Bag | 04/18/20 | 350 mg | 133.8 | | | 5% 250 mL infusion 350 mg | | 17 9:52 | | mL/hr | | | (rounded from 354 mg = 200 mg/m2 | | AM PDT | | | | | | | | | | | | 1.77 m2 Treatment plan recorded | | | | | | | BSA), Intravenous, Administer | | | | | | | over 2 Hours, ONCE, 04/18/17 | | | | | | | at 1000, For 1 dose, Administer | | | | | | | via y-site with oxaliplatin, | | | | | | + +---------+ +--------+--------+---+ +---+---+ | | | +---+---+ + +---------+ +---+--------+---+ | ondansetron (ZOFRAN) 8 mg, | New Bag | 04/18/20 | | 217.6 | | | dexamethasone (DECADRON) 4 mg in | | 17 9:33 | | mL/hr | | | sodium chloride 0.9% 50 mL IVPB | | AM PDT | | | | | Intravenous, Administer over 15 | | | | | | | Minutes, ONCE, Tue04/18/17 at | | | | | | | 0930, For 1 dose, Administer 30 | | | | | | | minutes prior to chemotherapy., | | | | | | + +---------+ +---+--------+---+ +---+---+ | | | +---+---+ + +---------+ + +--------+---+ | oxaliplatin (ELOXATIN) 112.5 mg | New Bag | 04/18/20 | 112.5 mg | 136.3 | | | in dextrose 5% 250 mL infusion | | 17 9:52 | | mL/hr | | | 112.5 mg (rounded from 113.28 mg | | AM PDT | | | | | = 64 mg/m2 | | | | | | | 1.77 m2 Treatment plan recorded | | | | | | | BSA), Intravenous, Administer | | | | | | | over 2 Hours, ONCE, Tue04/18/17 | | | | | | | at 1000, For 1 dose, | | | | [...] | | | | + +---------+ + +--------+---+ +---+---+ | | | +---+---+ documented in this encounter"
--- OUTSIDE RECORDS SUMMARY | ~2019-06-11 | XMS | Encounter Summary ---
Demographics + + + | Address | [address] | | | [place] [address] | + + + | Home Phone [...] Providers + +------+ + | Care Health Care Marketing Manager Name | Role | Phone | [...] | | | | REQUEST TO | [place], [place] | [place], [place] | | | | | SURGERY | [address] | [address] | | | | | PICKER FEEDER | Phone: | Phone: | | | | | [place] | [phone] | [phone] | | | | | LAP,SURG,COL | Fax: | Fax: | | | | | ECTOMY,W/TASNEEM | [phone] | [phone] | | | | | ST [place] | | | | | | | LAP,SURG,COL | | | | | | | ECTOMY,W/TASNEEM | | | | | | | ST,W/COLOSTO | | | | | | | MY IA | | | | | | | LAP,MBL | | | | | | | SPLNC FL IA | | | | | | | | | | | | | | LAP,SURG,COL | | | | | | | ECTOMY,W/REM | | | | | | | VL TERM | | | | | | | ILEUM IA | | | | | | | LAP,SURG,COL | | | | | | | ECTOMY,W/END | | | | | | | COLOST & | | | | | | | CLOSUR IA | | | | | | | LAP,ILEO/JEJ | | | | | | | YESIKA-STOMY | | | | | | | IA PART | | | | | | | REMOVAL | | | | | | | COLON W | | | | | | | COLOPROCTOST | | | | | | | LORI IA PART | | | | | | | REMOVAL | | | | | | | COLON W | | | | | | | COLOPROC,COL | | | | | | | OST IA | | | | | | | MOBILIZE | | | | | | | SPLENIC FLEX | | | | | | | IA PART | | | | | | | REMOVAL | | | | | | | COLON W END | | | | | | | COLOSTOMY | | | | | | | IA PART | | | | | | | REMOVAL | | | | | | | COLON W | | | | | | | OSTOMY/MUCOF | | | | | | | IST IA | | | | | | | ILEOSTOMY/JE | | | | | | | JUNOSTOMY,NO | | | | | | | NTUBE IA | | | | | | | REMOVE | | | | | | | VAGINA WALL, | | | | | | | PARTIAL IA | | | | | | | REMOVE | | | | | | | VAGINA | | | | | | | TISSUE/PARTI | | | | | | | AL IA | | | | | | | VAGINECTOMY | | | | | | | PARTIAL | | | | | | | W/NODES IA | | | | | | | PROCTECTOMY, | | | | | | | AP | | | | | | | RESECT+OSTOM | | | | | | | Y IA | | | | | | | PROCTECTOMY, | | | | | | | PARTIAL IA | | | | | | | PROCTECTOMY, | | | | | | | AP | | | | | | | RESEC,PULL-T | | | | | | | HRU IA | | | | | | | PROCTECTOMY, | | | | | | | PART,ILEAL | | | | | | | RESERV IA | | | | | | | PROCTECTOMY, | | | | | | | A-P PULLTHRU | | | | | | | W/RESERVOIR | | | | | | | IA | | | | | | | PROCTECTOMY, | | | | | | | COMPLT,PULL- | | | | | | | THRU,ANAST | | | | | | | IA | | | | | | | [...] | Malignant | Marty Toledo MD | [address] | | | | | neoplasm of | [place] | [place] | | | | | rectum | SURGICAL | Suzy Hines | | | | | | [facility] | [place], [place] | | | | | | [address] | [address] | | | | | | [address] | Phone: | | | | | | [place], | [phone] | | | | | | [place] [address] | Fax: | | | | | | Phone: | [phone] | | | | | | [phone] | | | | | | | Fax: | | | | | | | [phone] | | +--------+--------+ + + + + Encounter Details +--------+---------+ + + + | Date | Type | Department | Care Team | Description | +--------+---------+ + + + | 06/13/ | Office | Digestive Health | Ailyn Wolff MD | Rectal cancer (HCC) | | 2017 | Visit | Center at [facility] [address] | [address] | (Primary Dx); [place] of | | | | [address] | Suzy [address]ines [place], | rectum (HCC) | | | | Mailcode: [place] | [place] [address] | | | | | [facility] and | [phone] | | | | | [place] [address] | | | | | | [place], [place] | | | | | | [address] | | | | | | [phone] | | | +--------+---------+ + + + [...] - 06/13/2017 3:40 PM PSTPATIENT SURGERY INFORMATION [facility] General Surgery Office Toll-free: , request [facility] [[email or web address]] Surgery Date: 06/30/2017 Procedure: Low anterior resection, possible abdominoperineal resection. Surgeon Name: Dr. Ailyn Wolff MD DIRECTIONS FOR SURGERY DIET You should have clear liquids only for the entire day prior to surgery, no solid food. Kailee r liquids include anything you can see through, like water, fernando zack, lemon-yocha dehe soft drin ks, apple juice, tea, Gatorade/sports [...] have questions please contact the clinic at [phone], if it is after clinic h ours please call the needle felt making machine operator at [phone] and ask to speak to the Green Surgery Resident transportation escort. CAUTION! Please call the clinic if you [...] number may refer you to the hospital needle felt making machine operator ); please ask to speak to the general surgery resident transportation escort for Dr Javed. MEDICATIONS You may take [...] Smoking is not allowed on the [facility] campus. If you are a [...] anyone by 3:00 PM please call for [id number]. PARKING Parking for patients and visitors is available in the [facility] Parking structure located across from the emergency department. Patient parking is available on level 1 and 3. Metere d parking is available on the top level. CHECKING IN FOR SURGERY Go in the main entrance and check in at the Admitting Desk 9th floor of [facility] TRANSPORTATION You will require transportation home on the day of discharge. Pain medications and physical activity restrictions may limit your ability to drive safely. CANCELLING YOUR PROCEDURE Please notify the general surgery office at [phone] as soon as possible should you nee [...] prior to your surgery. PRODUCTS CONTAINING ASPIRIN Katelyn-Ackerman, Anacin, Anexsia with Codeine, Andynos, Aspirin, Aspirin suppositories, Ascrip tin, Aspergum, Axotal, B-A-C, Baby Aspirin, Tony, BC Powder, Bexophene, Buffaprin, Bufferin , Buffinol, Cama-Arthritis Strength, Congespirin, Cherokee, Coricidin, Damason, Darvon, Dristan, Annetta-Gesic, Digel, Dolprin #3 Tablets, Donatab, Doxaphene, Duragesic, Easprin, Ecotrin, Emag rin Forte, Emiprin, Emprazil, Equagesic, Equazine M, Excedrin, Fiogesic, Fiorgen PH, Fiorice t, Fiorinal, 4-Way Cold Tablet Gemnisyn, Indocin, Liquprin, Lortab ASA, Magnaprin, Marnal, Meprobamate, Midol, Momentum, N orgesic, [place], Orphengesic, Pabalate, P-A-C, Percodan, Presalin, Robaxasil, Roxiprin, Brian eto, Salocol SK-65 Compound, Sine-Aid, Sine-Off,, [place], Supac, Talwin Compound, Trigesic, Tolectin , Traiminicin, Vanquish, ZORprin, Zomax PRODUCTS CONTAINING IBUPROFEN Advil, Aleve, Haltran, Medipren, Midol, Motrin, Naproxyn, Nuprin, Rufen OTHER PRODUCTS WHICH MAY PROMOTE BLEEDING Vitamin E, Gingko Biloba, Marine Fatty Acids, Garden[place]-3 Fish Oil Supplements Registration Process for all [...] rectal bleeding on 07/19/16 [facility] ED CT abdomen/pelvis with IV [...] from anal verge presented at the [facility] Multidisciplinary GI Oncology Conference on [...] Mendoza pouch staple line presented at [facility] Multidisciplinary GI Oncology Conference on [...] (OSH, 05/17/17) close to pelvic sidewall [facility] Multidisciplinary GI Oncology Conference (06/02/17) [...] infection , pneumonia, UTI, recurrence, DVT, PE, [place], stroke, and were discussed, she wished to proceed with the above plan. Chief Complaint: 55 y.o. female with intermittent rectal bleeding since ~2013 and tailbone pain since 07/19/17. History of Present Illness: On 10/05/16, she told me: "intermittent rectal bleeding since ~2013 She had rectal urgency and a lot of rectal bleeding on 07/19/16. [facility] ED. CT abdomen/pelvis with IV contrast (07/20/16) [...] rectal cancer. [facility]/abdomen/pelvis [...] from anal verge presented at the [facility] Multidisciplinary GI Oncology Conference on [...] fractions, 01/10/17-02/17/17. Dr. Alfaro, Radiation Oncology at [place] in [place]. MRI pelvis (03/02/17) tumor response but circumferential [...] for the LLQ tenderness/malodorous drainage." presented at [facility] Multidisciplinary GI Oncology Conference on [...] sidewall I again discussed her at the [facility] Multidisciplinary GI Oncology Conference (06/02/17) [...] Stool in her drain. 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 20 minute document review Noelle Clifford RN - 017 3:40 PM PSTNPO after midnight, Miralax/Gatorade bowel prep with antibiotics, prevention of constipation and pain control after surgery, responsible ride home upon discharge from [facility]. Discussed pre-operative plan such as diamond setter calling the day before surgery to gi [...] starting with clears, need for PMC appt (QUALITY ENGINEER), post-op appt (3 wk). Pt den ies further questions. I encouraged the pt to call with any questions, concerns, or new symp toms at [phone]. documented in this enco unter Plan of [...] | | | | | | [place] [address] | | | | | | [phone] | | | | | | | [...] + + + + + | [facility] | [address] | [place] [address] | | | SERVICES, CORE | PARK [...] | | | LABORATORY | | | ETHIOPIAN | | | SERVICES, | | | [...] [facility] | [address] | [place] [address] | | | SERVICES, CORE | SUZY [...]
--- OUTSIDE RECORDS SUMMARY | ~2019-06-11 | XMS | Encounter Summary ---
Demographics + + + | Address | [address] | | | [place] [address] | + + + | Home Phone | | + + + | Preferred Language | Unknown | + + + | Marital Status | | + + + | Church Affiliation | Unknown | + + + | Race | Unknown | + + + | Ethnic Group | Unknown | + + + Author + + + | Author | [facility] | | | and [place] | + + + | Organization | [facility] | | | and [place] | + + + | Address | Unknown | + + + | Phone | Unavailable | + + + Support + + + + + | Name | Relationship | Address | Phone | + + + + + | Lamar Phillips | REZA | [place] [address] | | + + + + + Care Team Providers + +------+ + | Care Insulation Installer Name | Role | Phone | [...] + + | 12/13/ | Hospital | [facility] | [facility], | Rectal cancer (HCC) | | 2017 | Encounter | [facility] | Sirena White MD [address] | | | | ON[address]OG[address] CL[address] | [facility] | | | | | [address] [facility] | [place] [address] | | | | | [place] [address] | [phone] | | | | | [phone] | | | +--------+ + + + [...] + + + | Blood Pressure | 132/80 | 12/13/2016 9:58 AM | | | | | PDT | | + + + + + | Pulse | 78 | 12/13/2016 9:58 AM | | | | | PDT | | + + + + + | Temperature | 36 C (96.8 F) | 12/13/2016 9:58 AM | | | | | PDT | | + + + + + | Respiratory Rate | 16 | 12/13/2016 9:58 AM | | | | | PDT | | + + + + + | Oxygen Saturation | 97% | 12/13/2016 9:58 AM | | | | | PDT | | + + + + + | Inhaled Oxygen | - | - | | | Concentration | | | | + + + + + | Weight | 68.3 kg (150 lb 8 | 12/13/2016 9:58 AM | | | | oz) | PDT | | + + + + + | Height | - | - | | + + + + + | Body Mass Index | 25.83 | 10/18/2016 11:04 AM | | | [...] encounter Progress Notes Sirena Helton MD - 12/13/2016 9:37 AM PDTFormatting of this note might be differe nt from the original. Hematology/Oncology Progress Note [facility] LETY Cheema Pt. Name/Age/: Paulette Byrnes 56 y.o. 1960 Med. Record Number: [id number] Date of admission: 12/13/2016 The patient's primary care provider is Kristian Anderson DO. Identifying Statement: Paulette Byrnes is a 56 y.o. female from [address] [place] [address] with Locally Advanced Rectal Cancer. The patient chart and medications were reviewed in detail and the patient was seen and exam ined. History of Present Illnesses, their Current Assessments and Plans: Problem List Rectal cancer Overview ACTIVE DIAGNOSIS: Locally Advanced Rectal Cancer. 1. Paulette presented to the [facility] [...] were obtained from this procedure. The pa tiesvetlana was discharged and allowed to recover. 2. Repeat evaluation by Dr. Thacker with colonoscopy on September 02, 2016 included a rigid pro ctoscopy that demonstrated a circumferential rectal tumor at 6 cm within the rectum. Biopsy specimen number [id number] evaluated by Dr. Felipe Nixon of [facility] was notable for a tubular adenoma without high-grade dysplasia or overt carcinoma. This proced ure also included a full colonoscopy through the ostomy were 2 additional polyps were remove d, a tubular adenoma at 35 cm and a hyperplastic polyp at [address] C/A/P at [facility] in [place], [place] demonstrated no evidence of metastatic disease. 4. On September 22, 2016 Dr. Thacker placed in internal jugular Port-A-Cath without complications. 5. MRI of pelvis performed on October 05, 2016 at [facility]: Rectal mass 7.7 cm x 6.2 cm x 9.6 cm in length located within 3 cm of the anal sphincter and 6.4 cm from the anal verge with radi ographic extension though multiple areas of the bowel wall. 6. CT abdomen/pelvis also at [facility] October 05, 2016; large almost completely circumferential r ectosigmoid mass better delineated on the corresponding MRI with adjacent probable abscess. No distant metastases identified. 7. On October 14, 2016 Paulette was evaluated by Dr. Ailyn Wolff and Dr. Shea Mcneill of the [facility] where her case was presented [...] as well as mutation analysis." Pathological Specimen #[id number] ([facility]). 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 "This is highly suspicious for invasive malignancy. Presence of absence of an invasive lesi on cannot be established with certainty." Current Assessment & Plan Paulette Byrnes returned to clinic on 12/13/2016 for follow-up and Cycle #5 of neoadjuv ant FOLFOX chemotherapy for locally advanced rectal cancer. Review of systems is notable for the fact that her ZAIN drain is generating less than 5 cc of fluid a day. Clinical exam is notable for the fact that Paulette has put on five pounds. Her ZAIN drain remain s in situ in the left lower quadrant, there is no fluid in the bulb and the exit site has ca ndidal overgrowth. Laboratory exam is notable for the fact that her alkaline phosphatase is now normal. Assessment; Locally advanced rectal cancer-improved. Plan; extended office encounter coordinating care with Dr. Marty Thacker, Dr. Joel Alfaro and Dr. Ailyn Wolff. Dr. Thacker has consulted with Dr. Wolff who recommends that Paulette keep her ZAIN drain in situ until she sees him on January 03. To control candidal overgrowth at the exit site, Paulette will resume nystatin powder twice a day. Cycle #5 FOLFOX today. Cycle #6 FOLFOX on December 27. Consultation with Dr. Ailyn Wolff in [place] on January 03 with advanced imaging; Pelvic CT rossi an d MRI. Start continuous infusion of 5FU at 225 mg/m/day on January 10, 2017 to be delivered for the duration of her radiation therapy treatment plan. Consult with Dr. Alfaro on January 15, 2017 regarding neoadjuvant radiation therapy. Surgery with Dr. Ailyn Wolff in [place] about three weeks after completing her combined-modalit y treatment plan. Review of Systems: Constitutional: Reports energy level is fair. Appetite is varied, weight gain of 5 lbs. Re ports intermittent nausea that seems worse in past week, states she does not get relief when taking Zofran. Reports chills one time in last week related to having back pain. Reports ni ght sweats only last night with increase in temperature she states. Denies high fevers, ano rexia, vomiting, weight loss. Ear, Nose, Mouth, Throat: Reports intermittent difficulty with chewing and soreness in teet h. Denies dysphagia or tinnitus. Cardiovascular: Denies shortness of breath, dyspnea on exertion, chest pain, palpitations o r orthopnea. Respiratory: Denies cough, hemoptysis, or sputum production. Gastrointestinal: Reports that drain in left abdominal area had drained 2 oz in past 2 week s.States last week she had diarrhea for a day from eating lots of beans, had started eating foods to help with the diarrhea and now is slightly constipated. Reports one episode of lowe r left pelvic pain and thinks related to constipation. Reports having increased bleeding per rectum and she has notified Dr. Thacker of this, intermittent discharge from vaginal area. D enies melena. Genitourinary: Denies hematuria or dysuria. Musculoskeletal: Denies joint pain or tenderness. Neurologic: Reports headaches occasionally in last few weeks related to waking up, sleep cy cles. Reports fingers, lips and tongue are very sensitive to cold. Denies visual changes. Endocrine: Denies peripheral edema or heat/cold intolerance. Hematologic: Denies spontaneous bruising or bleeding. Integumentary: Denies rash, wounds or other skin concerns. Pain: Reports one episode of back pain and lower left pelvic region after lifting an object , only had to take pain medication during those times. States not having pain currently. Note: Here for follow up, labs and 5 hour treatment. My chart: active Scheduled Medications: Current [...] Q46H Sirena Helton MD 4,050 mg at 12/13/16 1347 Allergies: Allergy: Allergies Allergen Reactions Propoxyphene Na [...] Objectives: Temp: 36 C (96.8 F) BP: 132/80 Pulse: 78 Resp: 16 SpO2: 97 % on Min/Max Temp past 24 hours:Temp Av C (96.8 F) Min: 36 C (96.8 F) Max: 36 C (96.8 F) No intake or output data in the 24 hours ending 12/13/16 1825 Wt. Admission: Weight: 68.3 kg (150 lb 8 oz) Wt. Current: Weight: 68.3 kg (150 lb 8 oz) Wt Readings from Last 3 Encounters: 12/13/16 68.3 kg (150 lb 8 oz) 11/29/16 66.1 kg (145 lb 12.8 oz) 11/15/16 63.8 kg (140 lb 11.2 oz) Physical Exam: General: The patient is [...] right low er quadrant; exit site is surrounded by erythema and has a creamy discharge. There is no flu id in the bulb. Extremities: Nontender, no erythema, [...] for PAULETTE BYRNES ( ) as of 12/13/2016 18:13 Ref. Range 12/13/2016 09:34 WBC Latest Ref Range: 4.0 - 11.0 K/uL 6.7 RBC: Latest Ref Range: 3.70 - 5.20 M/uL 4.20 Hgb Latest Ref Range: 11.5 - 16.0 g/dL 10.8 (L) Hct, Final Latest Ref Range: 34.0 - 47.0 % 33.6 (L) MCV Latest Ref Range: 83.0 - 101.0 fL 80.0 (L) MCH Latest Ref Range: 28.0 - 35.0 pg 25.7 (L) MCHC Latest Ref Range: 32.0 - 36.0 g/dL 32.1 RDW-CV Latest Ref Range: <15.0 % 22.7 (H) Platelet Count Latest Ref Range: 140 - 440 K/uL 295 MPV Latest Units: fL 6.6 Absolute Neutrophils Latest Ref Range: 1.80 - 8.50 K/uL 4.70 Absolute Lymphocytes Latest Ref Range: 0.60 - 3.20 K/uL 1.10 Absolute Monocytes Latest Ref Range: 0.00 - 1.00 K/uL 0.60 Absolute Eosinophils Latest Ref Range: 0.00 - 0.40 K/uL 0.30 Absolute Basophils Latest Ref Range: 0.00 - 0.10 K/uL 0.10 % Neutrophils Latest Ref Range: 45.0 - 82.0 % 69.7 % Lymphocytes Latest Ref Range: 20.0 - 45.0 % 15.9 (L) % Monocytes Latest Ref Range: 4.0 - 12.0 % 8.9 % Eosinophils Latest Ref Range: 0.0 - 5.0 % 4.4 % Basophils Latest Ref Range: 0.0 - 1.0 % 1.1 (H) NA Latest Ref Range: 136 - 149 mmol/L 145 K Latest Ref Range: 3.5 - 5.1 mmol/L 4.1 Chloride Latest Ref Range: 98 - 109 mmol/L 107 Carbon dioxide Latest Ref Range: 24 - 31 mmol/L 27 ANION GAP Latest Ref Range: 3 - 16 mmol/L 11 GLUCOSE Latest Ref Range: 70 - 109 mg/dL 146 (H) BUN Latest Ref Range: 7 - 18 mg/dL 8 Creatinine Latest Ref Range: 0.60 - 1.30 mg/dL 0.63 BUN/CREA Unknown 12.7 ALBUMIN Latest Ref Range: 3.2 - 5.0 g/dL 3.1 (L) Albumin/Globulin ratio Latest Ref Range: 0.8 - 2.0 1.0 Total protein Latest Ref Range: 6.0 - 7.8 g/dL 6.3 EGFR IF NOT Latest Ref Range: >=60 mL/min/1.73m2 >60 Calcium Latest Ref Range: 8.3 - 10.5 mg/dL 9.3 ALK PHOS Latest Ref Range: 40 - 110 U/L 110 ALT (SGPT) (REF) Latest Ref Range: 6 - 45 U/L 25 AST (SGOT) (REF) Latest Ref Range: 10 - 42 U/L 31 LDH TOTAL Latest Ref Range: 91 - 180 U/L 167 BILIRUBIN TOTAL Latest Ref Range: 0.1 - 1.5 mg/dL 0.4 GLOBULIN Latest Ref Range: 2.1 - 3.8 g/dL 3.2 Pharmacovigilance: Palliative Care: Patient's Medications New Prescriptions No medications on file Modified Medications No medications on file Discontinued Medications NYSTATIN (MYCOSTATIN) POWDER Apply topically. Procedure: Day 1, Cycle 5 (14-day cycle) Completed; Released on 12/13/2016; Originally planned for 12/13/2016 Labs Lactate Dehydrogenase STAT, ONE TIME, Tue12/13/16 at 0934, For 1 occurrence OrderHistory Comprehensive Metabolic Panel STAT, ONE TIME, Tue12/13/16 at 0934, For 1 occurrence OrderHistory CBC with Differential STAT, ONE TIME, Tue12/13/16 at 0934, For 1 occurrence OrderHistory Nursing Orders OK to proceed with chemotherapy (Not Released) 12/13/16 INFORMED CONSENT: The nature and character of the proposed treatment with Cycle#5 FOLFOX an d the anticipated results of the proposed treatment with Cycle#5 FOLFOX;recognized alternati ve forms of treatment, including non-treatment; the risks benefits, and side effects of prop osed treatment, alternative treatments and non-treatment were discussed with the patient who consents to proceed with treatment with Cycle#5 FOLFOX. The treating provider has examined the patient and reviewed the diagnostic data, including laboratory data, and deems that it i s safe and appropriate to proceed with treatment with Cycle#5 FOLFOX.SIRENA HELTON MD. OrderHistory Plans for discharge (Not Released) Please be aware of the treatment schedule for Paulette Byrnes; Cycle #5 FOLFOX on 12/13. Cycle #6 FOLFOX on 12/[address] scan done same day, immediately prior. 01/10; cross over to CIVI 5FU at 225 mg/m with rads. Please work with radiation oncology to schedule treatment planning CT scan on 12/27. Thank you, Electronically signed by: SIRENA HELTON MD 11/29/2016 18:28 QFU CBC,CMP, LDH, CEA * PORT DRAW AND 4 HOUR RX IN 14 DAYS QFU CBC,CMP, LDH, CEA * PORT DRAW AND 1 HOUR RX IN 28 DAYS - WILL BE STARTING CONTINUOUS 5FU PUMP OrderHistor y Pre-Medications ondansetron (ZOFRAN) 8 mg, dexamethasone (DECADRON) 4 mg in sodium chloride 0.9% 50 mL IVPB Intravenous, Administer over 16 Minutes, ONCE, Tue12/13/16 at 1045, For 1 dose Administer 30 minutes prior to chemotherapy. OrderHistory fosaprepitant (EMEND) 150 mg in sodium chloride 0.9% 150 mL IVPB 150 mg, Intravenous, Administer over 20 Minutes, ONCE, Tue12/13/16 at 1100, For 1 dose Do not shake bag. OrderHistory PRN Medications LORazepam (ATIVAN) 2 mg/mL injection 1 mg (Not Released) 1 mg, Intravenous, PRN, Anxiety, Nausea/Vomiting, Starting when released, for 1 dose Administer prior to chemotherapy. OrderHistory CHEMOTHERAPY oxaliplatin (ELOXATIN) 135 mg in dextrose 5% 223 mL chemo infusion 135 mg (rounded from 135.2 mg = 80 mg/m2 1.69 m2 Order-specific BSA), Intravenous, Admi nister over 2 Hours, ONCE, Tue12/13/16 at 1115, For 1 dose Chemotherapy: Use appropriate handling precautions. Not compatible with NS or any chloride- containing solutions. Flush line with D5W prior to giving any other meds. Administer via y- site with leucovorin. OrderHistory leucovorin 340 mg in dextrose 5% 250 mL infusion 340 mg (rounded from 338 mg = 200 mg/m2 1.69 m2 Order-specific BSA), Intravenous, Admin ister over 2 Hours, ONCE, Tue12/13/16 at 1115, For 1 dose Administer via y-site with oxaliplatin OrderHistory fluorouracil 4,050 mg in sodium chloride 0.9% 11 mL CADD PUMP chemo infusion 4,050 mg (rounded from 4,056 mg = 2,400 mg/m2 1.69 m2 Order-specific BSA), Intravenous, Administer over 46 Hours, EVERY 46 HOURS, First dose on Tue12/13/16 at 1345 OUTPATIENT Chemotherapy: Use appropriate handling precautions. Protect from light. Start Da y 1, disconnect Day 3. OrderHistory Post-Medications heparin 100 units/mL flush injection 500 Units (Not Released) 500 Units (5 mL), Intercatheter, PRN, Line Care, Starting when released, Until Discontinue d OrderHistory Infusion Reaction Orders Stop infusion if: (Not Released) Stop infusion if an infusion reaction is suspected (pruritis, flushing, rhinitis, fever, r shalonda, back pain, dyspnea). Notify MD. OrderHistory Nursing communication (Not Released) STAT, UNTIL DISCONTINUED Starting when released Until Specified Place patient in a supine position and maintain airway. OrderHistory Check vital signs (Not Released) Monitor vital signs every 5 minutes until back to baseline, then every 15 minutes until re solution of symptoms. OrderHistory Start oxygen (Not Released) Start oxygen at 6-8 LPM for O2 < or = 90%. OrderHistory diphenhydrAMINE (BENADRYL) injection 25 mg (Not Released) 25 mg, Intravenous, EVERY 15 MIN PRN, Infusion reaction, Starting when released, for 2 dos es OrderHistory methylPREDNISolone sodium succinate (solu-MEDROL) 62.5 mg/mL injection 125 mg (Not Rele ased) 125 mg, Intravenous, ONCE PRN, Infusion reaction, Starting when released, for 1 dose Choose only one steroid. Mix with 2 mL provided diluent to make 62.5 mg/mL. OrderHistory Resume infusion if: (Not Released) Resume infusion when symptoms resolve, as directed by MD. OrderHistory Anaphylaxis orders (Not Released) If a severe hypersensitivity reaction or anaphylaxis is suspected (bronchospasm, stridor, wheezing, respiratory depression, cardiac arrhythmia, generalized urticaria, SBP <= 80 mm Hg or 30 mm Hg drop from baseline, angioedema, shock, loss of consciousness): Stop infusion, a ctivate code blue and notify MD. OrderHistory EPINEPHrine 1 mg/mL injection 0.3 mg (Not Released) 0.3 mg, Intramuscular, EVERY 5 MIN PRN, Anaphylaxis, Starting when released, Until Discont inued FOR ANAPHYLAXIS: Administer in the anterior lateral [...] Bronchospasm or hypoxemia, Starting when released, Until Dis continued Shake well. May repeat x 1. OrderHistory famotidine (PEPCID) injection 20 mg (Not Released) 20 mg, Intravenous, ONCE PRN, Anaphylaxis, Starting when released, Until Discontinued Prior to administration, prepare a 20 mg dose by diluting 2 mL of famotidine 10 mg/mL to 10 mL with normal saline. OrderHistory SIRENA HELTON MD Portions of this chart may have been created with [employer] voice recognition software. Occasi onal wrong-word or [...]
--- OUTSIDE RECORDS SUMMARY | ~2019-06-11 | XMS | Encounter Summary ---
Demographics + + + | Address | [address] | | | [place] [address] | + + + | Home Phone | | + + + | Preferred Language | Unknown | + + + | Marital Status | | + + + | Moravian Affiliation | Unknown | + + + | Race | Unknown | + + + | Ethnic Group | Unknown | + + + Author + + + | Author | [facility] | | | and [place] | + + + | Organization | [facility] | | | and [place] | + + + | Address | Unknown | + + + | Phone | Unavailable | + + + Support + + + + + | Name | Relationship | Address | Phone | + + + + + | Lamar Phillips | REZA | [place] [address] | | + + + + + [...] | | | | Malignant | Joel White DO | [address] | | | | | neoplasm of | [address] | [place], | | | | | rectum (HCC) | [address] | [place] | | | | | Procedures | [place], | [address] | | | | | MRI Pelvis | [place] [address] | Phone: | | | | | w wo | Phone: | [phone] | | | | | Contrast [place] | [phone] | Fax: | | | | | MRI, | Fax: | [phone] | | | | | PELVIS, | [phone] | | | | | | COMBO | | | +--------+--------+ + + + + Diagnostic/Screening [...] | | | | Malignant | Joel White DO | [address] | | | | | neoplasm of | [address] | [place], | | | | | rectum (HCC) | [address] | [place] [address] | | | | | Status | [place], | Phone: | | | | | post | [address] | [phone] | | | | | chemotherapy | Phone: | Fax: | | | | | Procedures | [phone] | [phone] | | | | | CT Chest | Fax: | | | | | | Abdomen | [phone] | | | | | | Pelvis w | | | | | | | Contrast | | | +--------+--------+ + + + + Reason for Visit +--------+ + | Reason | Comments | +--------+ + | Other | | +--------+ + Encounter Details +--------+ + + + + | Date | Type | Department | Care Team | Description | +--------+ + + + + | 12/15/ | Telephone | [facility] | Joel Alfaro DO | Other | | 2017 | | [facility] | [address] | | | | | ONCOLOGY [address] | [place], [place] | | | | | [address] [place], | [address] | | | | | [place] [address] | | | | | | [phone] | | | +--------+ + + + [...] on filedocumented as of this encounter Results MRI Pelvis w wo [...] sigmoid colon in the perirectal fat (axial [id number] 8), | | this is drained by [...] | | | + +---------+ + + CT Chest Abdomen Pelvis w Contrast (01/03/2017 [...] + | Malignant neoplasm of rectum (HCC) - Primary Malignant neoplasm of rectum | + + documented in this encounter"
--- OUTSIDE RECORDS SUMMARY | ~2019-06-11 | XMS | Encounter Summary ---
Demographics + + + | Address | [address] | | | [place] [address] | + + + | Home Phone | | + + + | Preferred Language | Unknown | + + + | Marital Status | | + + + | Sabianist Affiliation | Unknown | + + + | Race | Unknown | + + + | Ethnic Group | Unknown | + + + Author + + + | Author | [facility] | | | and [place] | + + + | Organization | [facility] | | | and [place] | + + + | Address | Unknown | + + + | Phone | Unavailable | + + + Support + + + + + | Name | Relationship | Address | Phone | + + + + + | Lamar Phillips | ECON | [place] [address] | | + + + + + Care Team Providers + +------+ + | Care Supervisor Carpenters Name | Role | Phone | + [...] [address] | | | | | [address] [address] | [address] | | | | | | [place], | [place], [place] | | | | | | [place] | [address] Phone: | | | | | | [address] | [phone] | | | | | | Phone: | Fax: | | | | | | [phone] | [phone] | | | | | | Fax: | | | | | | | [phone] | | +--------+--------+ + + + + Encounter Details +--------+ + + + + | Date | Type | Department | Care Team | Description | +--------+ + + + + | 10/31/ | Hospital | [facility] | Janel, | Rectal cancer (HCC) | | 2018 | Encounter | [facility] | Mike White MD [address] | (Primary Dx) | | | | ONCOLOGY CLINIC [address] | [address] [facility] | | | | | [address] | [place] [address] | | | | | [place] [address] | [phone] | | | | | [phone] | | | +--------+ + + + [...] from the original. Hematology/Oncology Progress Note [facility] [place] Pt. Name/Age/: Paulette Byrnes 56 y.o. 1960 Med. Record Number: [id number] Date of admission: 10/31/2017 The patient's primary care provider is Kristian Anderson DO. Identifying Statement: Paulette Byrnes is a 56 y.o. female from [address] [place] [address] with Locally Advanced Rectal Cancer. The patient chart and medications were reviewed in detail and the patient was seen and exam ined. History of Present Illnesses, their Current Assessments and Plans: Problem List Rectal cancer Overview ACTIVE DIAGNOSIS: Locally Advanced Rectal Cancer, [id number], Stage IIA. 1Jame Barajas presented to the [facility] emergency room on July 20, 2016 [...] cm within the rectum. Biopsy specimen number [id number] evaluated by Dr. Felipe Nixon of [facility] was notable for a tubular adenoma without high-grade dysplasia or overt carcinoma. This proced ure also included a full colonoscopy through the ostomy were 2 additional polyps were remove d, a tubular adenoma at 35 cm and a hyperplastic polyp at [address] C/A/P at [facility] in [place], [place] demonstrated no evidence of metastatic disease. 4. On September 22, 2016 Dr. Thacker placed in internal jugular Port-A-Cath without complications. 5. MRI of pelvis performed on October 05, 2016 at [facility]: Rectal mass 7.7 cm x 6.2 cm x 9.6 cm in length located within 3 cm of the anal sphincter and 6.4 cm from the anal verge with radi ographic extension though multiple areas of the bowel wall. 6. CT abdomen/pelvis also at [facility] October 05, 2016; large almost completely circumferential r ectosigmoid mass better delineated on the corresponding MRI with adjacent probable abscess. No distant metastases identified. 7. On October 14, 2016 Paulette was evaluated by Dr. Ailyn Wolff and Dr. Shea Mcneill of the [facility] where her case was presented to their tumor board. Clinical exa m is notable for an overt rectal carcinoma invading into the vagina. 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 Concerns raised by the [facility] Tumor Board were [...] as well as mutation analysis." Pathological Specimen #[id number] ([facility]). Tubulovillous adenoma with [...] radiation. 14. Multidisciplinary Care Team Conference at [facility] March 10, 2017; "Given borderline resec [...] resection by Dr. Ailyn Wolff at the [facility]: 06/30/17: Exploratory laparoto my. Extensive lysis of adhesions. Excision of left lower quadrant fistula tract. Total mesor ectal excision, intersphincteric abdominoperineal resection, en bloc resection of left ovary and left fallopian tube and posterior vaginal wall. Placement of a 19-S[place] T[place] Albert drain th rough the right lower [...] August 12, 2017; [facility], [place], [place] ; positive for perianal fistula between anus and vagina. 22. Clinical exam on August 22, [address] Ailyn Wolff at [facility] who could not confirm the prese [...] that Paulette underwent advanced imaging at the [facility] in [place], [place] last month. Chief complaint is recurrence of muscle cramps after running out of her potassium supplemen t. Clinical exam is notable for 5 kilogram weight gain. Laboratory exam is notable for resolution of myelosuppression. Reports from CT chest/abdomen/pelvis on September 26, 2017 and MRI pelvis September 27, 2017 from [facility] were reviewed, there is no evidence of [...] will see Dr. Ailyn Wolff at the [facility]. Review of Systems: [...] a brace today, will be seeing an environmental services specialist. Denies heat/c old intolerance. Hematologic: Denies [...] R.H., Fransisca Baltazar., Jason Roque, Caitie Travis., Leonial Montes., Danielle, P JameP.: Toxicity And Response [...] this chart may have been created with [employer] voice recognition software. Occasi onal wrong-word or [...] + | [facility] | [address] | [place] | [phone] | | [facility] | | [address] | | | - LABORATORY | | [...] [address] | [place] | [phone] | | [facility] | | [address] | | | - LABORATORY | | [...] [address] | [place] | [phone] | | [facility] | | [address] | | | - LABORATORY | | [...] 14 | 7 - 18 mg/dL | [facility] | | | | | | [facility] | | | | | | MEDICAL | | | | | | CENTER - | | | | | | LABORATORY | | + + + + + + | Creatinine | 0.67 | 0.60 - 1.30 | [facility] | | | | | mg/dL [...] mL/min/1.73m2 | [facility] | | | [facility] | RATE,ESTIMATED | | MEDICAL | | | | mL/min/1.74w0Ylog than | | CENTER - | | [...] [address] | [place] | [phone] | | [facility] | | [address] | | | - LABORATORY | | [...] | | | | | | [facility] | | | | | | MEDICAL [...] [address] | [place] | [phone] | | [facility] | | [address] | | | - LABORATORY | | | | + + + + + documented in this encounter Visit Diagnoses + + | Diagnosis | + + | Rectal cancer (HCC) - Primary Malignant neoplasm of rectum | + + documented in this encounter
--- OUTSIDE RECORDS SUMMARY | ~2019-06-11 | XMS | Encounter Summary ---
Demographics + + + | Address | [address] | | | [place] [address] | + + + | Home Phone [...] Providers + +------+ + | Care Channel Marketing Program Manager Name | Role | Phone | + +------+ + | Kristian Anderson DO | PCP | | + +------+ + Encounter Details +--------+ + + + + | Date | Type | Department | Care Team | Description | +--------+ + + + + | 04/21/ | Procedure | 6A Intra Op [facility] | | | | 2016 | Pass | [facility] | | | | | | Admitting Desk | | | | | | Located on the 9th | | | | | | floor [address] | | | | | | [address] | | | | | | [place], [place] | | | | | | [address] | | | +--------+ + + + [...] | | | | | [place], | | | | | | [place] [address] | | | | | | [phone] | | | | | | | | +--------+---------+ + + + documented as of this encounter Visit Diagnoses Not on filedocumented in this encounter"
--- OUTSIDE RECORDS SUMMARY | ~2019-06-11 | XMS | Encounter Summary ---
Demographics + + + | Address | [address] | | | [place] [address] | + + + | Home Phone [...] Team Providers + +------+ + | Care Bariatric Nurse Name | Role | Phone | [...] | 2017 | Encounter | Center at [facility] [address] | [address] | | | | | [address] | [place], | | | | | Mailcode: [place] | [place] [address] | | | | | for Health and | [phone] | | | | | [facility] | | | | | | [place], [place] | | | | | | [address] | | | | | | [phone] | | | +--------+ + + + [...] | | | | | [place], | | | | | | [place] [address] | | | | | | [phone] | | | | | | | | +--------+---------+ + + + documented as of this encounter Visit Diagnoses Not on filedocumented in this encounter"
--- OUTSIDE RECORDS SUMMARY | ~2019-06-11 | XMS | Clinical Summary ---
Demographics + + + | Address | [address] | | | [place] [address] | + + + | Home Phone | | + + + | Preferred Language | Unknown | + + + | Marital Status | | + + + | Advent Affiliation | Unknown | + + + | Race | Unknown | + + + | Ethnic Group | Unknown | + + + Author + + + | Author | [facility] (Historical as of | | | 03-10-19) | + + + | Organization | [facility] (Historical as of | | | 03-10-19) [...] Team Providers + +------+ + | Care Attraction Attendant Name | Role | Phone | [...] +------+-------+ + | MEDICAID | MEDICA | [id number] | | | [address] | | | [place] | | | | [place] | | | [place] | | | | [address] | + +--------+ +------+-------+ + + +--------+ [...] | | | guerda | | | [address] | [place] [address] | + +--------+ +--------+ + +"
--- OUTSIDE RECORDS SUMMARY | ~2019-06-11 | XMS | Encounter Summary ---
Demographics + + + | Address | [address] | | | [place] [address] | + + + | Home Phone [...] Providers + +------+ + | Care Radio Broadcaster Name | Role | Phone | + [...] Lab Results | | 2018 | | [place] [address] | [address] | | | | | [address] | [facility], | | | | | Mailcode: [place] | [place] [address] | | | | | for Health and | [phone] | | | | | [facility] | | | | | | [place], [place] | | | | | | [address] | | | | | | [phone] | | | +--------+ + + + [...] | | | | | [place], | | | | | | [place] [address] | | | | | | [phone] | | | | | | | | +--------+---------+ + + + documented as of this encounter Visit Diagnoses Not on filedocumented in this encounter"
--- OUTSIDE RECORDS SUMMARY | ~2019-06-11 | XMS | Encounter Summary ---
Demographics + + + | Address | [address] | | | [place] [address] | + + + | Home Phone [...] + | Organization | [facility] | | | and [place] | + + + | Address | Unknown | + + + | Phone | Unavailable | + + + Support + + + + + | Name | Relationship | Address | Phone | + + + + + | Lamar Phillips | REZA | [place] [address] | | + + + + + Care Team Providers + +------+ + | Care Project Estimator Name | Role | Phone | [...] Closed | | Radiology | Diagnoses | R[place], | [address] | | | | | Rectal | Florence Loja, | [address] | | | | | cancer (HCC) | MD [address] | [place], | | | | | Procedures | [address] | [place] [address] | | | | | CT | [place], | Phone: | | | | | Treatment | [place] [address] | [phone] | | | | | Plan Complex | Phone: | Fax: | | | | | | [phone] | [phone] | | | | | | Fax: | | | | | | | [phone] | | +--------+--------+ + + + + Encounter Details +--------+ + + + + | Date | Type | Department | Care Team | Description | +--------+ + + + + | 02/07/ | Orders Only | [facility] | Florence Huitron | Rectal cancer (HCC) | | 2017 | | [facility] | MD Cristina Loja [address] | (Primary Dx) | | | | ONCOLOGY [address] [place], [place] | | | | | [facility], | [address] | | | | | [place] [address] | | | | | | [phone] | | | +--------+ + + + [...] of this encounter Plan of Treatment + +---------+--------+ + + | Name | Type | Priori | Associated Diagnoses | Order Schedule | | | | ty | | | + +---------+--------+ + + | CT Treatment Plan | Imaging | Routin | Rectal cancer | Expected: | | Complex | | e | (HCC) | 02/07/2017, Expires: | | | | | | 02/07/2018 | + +---------+--------+ + + documented as of this encounter Visit Diagnoses + + | Diagnosis | + + | Rectal cancer (HCC) - Primary Malignant neoplasm of rectum | + + documented in this encounter"
--- OUTSIDE RECORDS SUMMARY | ~2019-06-11 | XMS | Encounter Summary ---
Demographics + + + | Address | [address] | | | [place] [address] | + + + | Home Phone | | + + + | Preferred Language | Unknown | + + + | Marital Status | | + + + | Uatsdin Affiliation | Unknown | + + + | Race | Unknown | + + + | Ethnic Group | Unknown | + + + Author + + + | Author | [facility] | | | and [place] | + + + | Organization | [facility] | | | and [place] | + + + | Address | Unknown | + + + | Phone | Unavailable | + + + Support + + + + + | Name | Relationship | Address | Phone | + + + + + | Lamar Phillips | REZA | [place] [address] | | + + + + + Care Team Providers + +------+ + | Care Cool Roofing Installer Name | Role | Phone | [...] + + | 01/17/ | Hospital | [facility] | Janel, | Rectal cancer (HCC) | | 2017 | Encounter | MED [facility] CHEMO | Mike White MD [address] | | | | | INFUSION [address] | [address] [facility] | | | | | [place], | [place] [address] | | | | | [place] [address] | [phone] | | | | | [phone] | | | +--------+ + + + [...] | | | | | | [facility] | | | | | | MEDICAL [...] [address] | [place] | [phone] | | [facility] | | [address] | | | - LABORATORY | | [...] mL/min/1.73m2 | [facility] | | | [place] | RATE,ESTIMATED | | MEDICAL | | | | mL/min/1.77t8Hwra than | | CENTER - | | [...] | appended report. These | | [facility] | | | | results have been [...] [address] | [place] | [phone] | | [facility] | | [address] | | | - LABORATORY | | [...] [address] | [place] | [phone] | | [facility] | | [address] | | | - LABORATORY | | [...]
--- OUTSIDE RECORDS SUMMARY | ~2019-06-11 | XMS | Encounter Summary ---
Demographics + + + | Address | [address] | | | [place] [address] | + + + | Home Phone [...] Organization | [facility] | | | and [place] | + + + | Address | Unknown | + + + | Phone | Unavailable | + + + Support + + + + + | Name | Relationship | Address | Phone | + + + + + | Lamar Phillips | REZA | [place] [address] | | + + + + + Care Team Providers + +------+ + | Care Kiosk Sales Representative Name | Role | Phone [...] | | Radiology | Diagnoses | | [facility] | | | | | Rectal | Janel, | [address] | | | | | cancer (HCC) | Mike White, | [place], | | | | | Procedures | MD [address] | [place] | | | | | MRI Pelvis | [address] | [address] | | | | | w wo | [place], | Phone: | | | | | Contrast | [place] [address] | [phone] | | | | | | Phone: | Fax: | | | | | | [phone] | [phone] | | | | | | Fax: | | | | | | | [phone] | | +--------+--------+ + + + + Reason for Visit + + + | Reason | Comments | + + + | Follow-up | | + + + Encounter Details +--------+ + + + + | Date | Type | Department | Care Team | Description | +--------+ + + + + | 05/16/ | Hospital | [facility] | Janel, | Rectal cancer (HCC) | | 2017 | Encounter | [facility] | Mike White MD [address] | (Primary Dx) | | | | ONCOLOGY CLINIC [address] | [address] | | | | | [address] [facility] | [place] [address] | | | | | [place] [address] | [phone] | | | | | [phone] | | | +--------+ + + + [...] + + + | Blood Pressure | 108/69 | 05/16/2017 9:33 AM | | | | | PDT | | + + + + + | Pulse | 96 | 05/16/2017 9:33 AM | | | | | PDT | | + + + + + | Temperature | 36.1 C (97 F) | 05/16/2017 9:33 AM | | | | | PDT | | + + + + + | Respiratory Rate | 18 | 05/16/2017 9:33 AM | | | | | PDT | | + + + + + | Oxygen Saturation | 97% | 05/16/2017 9:33 AM | | | | | PDT | | + + + + + | Inhaled Oxygen | - | - | | | Concentration | | | | + + + + + | Weight | 72.8 kg (160 lb 7.9 | 05/16/2017 9:33 AM | | | | oz) | PDT | | + + + + + | Height | - | - | | + + + + + | Body Mass Index | 27.55 | 10/18/2016 11:04 AM | | | [...] encounter Progress Notes Mike Islas MD - 05/16/2017 9:07 AM PDTFormatting of this note might be differe nt from the original. Hematology/Oncology Progress Note [place], [place] Pt. Name/Age/: Paulette Byrnes 56 y.o. 1960 Med. Record Number: [id number] Date of admission: 05/16/2017 The patient's primary care provider is Kristian Anderson DO. Identifying Statement: Paulette Byrnes is a 56 y.o. female from [address] [place] [address] with Locally Advanced Rectal Cancer. The patient chart and medications were reviewed in detail and the patient was seen and exam ined. History of Present Illnesses, their Current Assessments and Plans: Problem List Rectal cancer Overview ACTIVE DIAGNOSIS: Locally Advanced Rectal Cancer. 1. Paulette presented to the [facility] emergency room on July 20, 2016 [...] cm within the rectum. Biopsy specimen number [id number] evaluated by Dr. Felipe Nixon of [facility] was notable for a tubular adenoma without high-grade dysplasia or overt carcinoma. This proced ure also included a full colonoscopy through the ostomy were 2 additional polyps were remove d, a tubular adenoma at 35 cm and a hyperplastic polyp at [address] C/A/P at [facility] in [place], [place] demonstrated no evidence of metastatic disease. 4. On September 22, 2016 Dr. Thacker placed in internal jugular Port-A-Cath without complications. 5. MRI of pelvis performed on October 05, 2016 at [facility]: Rectal mass 7.7 cm x 6.2 cm x 9.6 cm in length located within 3 cm of the anal sphincter and 6.4 cm from the anal verge with radi ographic extension though multiple areas of the bowel wall. 6. CT abdomen/pelvis also at [facility] October 05, 2016; large almost completely circumferential r ectosigmoid mass better delineated on the corresponding MRI with adjacent probable abscess. No distant metastases identified. 7. On October 14, 2016 Paulette was evaluated by Dr. Ailyn Wolff and Dr. Shea Mcneill of the [facility] where her case was presented to their tumor board. Clinical exa m is notable for an overt rectal carcinoma invading into the vagina. 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 Concerns raised by the [facility] Tumor Board were that the prior placement [...] as well as mutation analysis." Pathological Specimen #[id number] ([facility] ology). Tubulovillous adenoma with high grade dysplasia [...] mg/m/day. 14. Multidisciplinary Care Team Conference at [facility] March 10, 2017; "Given borderline resec tability, [...] 18. Cycle #10 FOLFOX May 02, 2017. Current Assessment & Plan Paulette Byrnes returned to clinic on 05/16/2017 with her family after 10 cycles of ne oadjuvant FOLFOX chemotherapy for locally advanced rectal cancer. Interval history is notable for the fact that Paulette was in the [facility] Emergenc y Room last weekend with acceleration of her left lower quadrant pain. Ciprofloxacin 500 mg orally twice a day and Flagyl 500 mg twice a day were added to her fluconazole 200 mg a day. Chief complaint remains left lower quadrant pain and increase in left lower quadrant discha rge from around her ZAIN drain. Clinical exam is notable for progressive erythema around her ZAIN drain. Laboratory exam is notable for the absence of neutropenia. Assessment; Locally advanced rectal cancer. Symptomatic pelvic abscess. Plan; Extended 25 minute office encounter with Paulette, including discussing her management wi th Dr. Wolff of [facility] surgical oncology. I gave Paultete and Dr. Wolff my opinion that Paulette has reached the maximum benefit of her FOLFOX chemotherapy and further chemotherapy will only run the r isk of exacerbating her pelvic abscess. I recommended that Paulette discontinue neoadjuvant FOLFOX chemotherapy and proceed with surger y. Dr. Wolff recommended repeat staging MRI before proceeding. Study will be performed today an d results forwarded to Dr. Wolff who will contact Paulette with plans for surgery. In the meantime, Paulette will continue on Flagyl 500 mg orally three times a day, Cipro 500 mg orally twice a d ay, and fluconazole 200 mg orally once a day for her pelvic abscess, which is likely polymic robial in nature. Review of Systems: Constitutional: Reports energy level is "not good, worse than last visit." Reports nausea c ontinues, unchanged. Reports appetite fluctuates. Reports intermittent night sweats in the e venings, unchanged. Denies high fevers, shaking chills, anorexia, vomiting, weight loss. Ear, Nose, Mouth, Throat: Reports a few sores on lip, unchanged using mouth rinses. Denies dysphagia or tinnitus. Cardiovascular: Denies shortness of breath, dyspnea on exertion, chest pain, palpitations o r orthopnea. Respiratory: Denies cough, hemoptysis, or sputum production. Gastrointestinal: Reports abdominal pain in left lower quadrant, pain worse this last week , taking pain medication 3-4 times a day. Reports diarrhea onset 2 days ago, [facility] Reports black, yellow, and pink in drain only (not in the ostomy bag). Denies constipation, melena, or bright red blood per rectum. Genitourinary: Reports had a dx of urinary tract infection on Tuesday05/08/2017. Denies hem aturia or dysuria. Musculoskeletal: Denies joint pain or tenderness. Neurologic: Reports numbness in bilateral middle and rings fingers, has improved. Reports numbness in bilateral toes middle three, unchanged. Denies headache, visual changes. Endocrine: Reports sensitivity to cold, unchanged. Denies peripheral edema or heat intolera nce. Hematologic: Denies spontaneous bruising or bleeding. Integumentary: Reports fungus "burn" on drain site, unchanged. Pain: Denies pain. Note: Here for follow up with Dr. Islas, labs, and 3 hour treatment. My chart: [...] 2 metroNIDAZOLE (FLAGYL) 500 MG tablet Take 500 mg by mouth 3 times daily. Multiple Vitamins-Minerals (MULTIVITAMIN ADULT PO) Take by [...] PRN Mike coley MD 500 Units at 05/16/17 1107 Allergies: Allergy: Allergies Allergen Reactions Propoxyphene Na [...] Diagnosis Rectal cancer Lichen sclerosus Objectives: Temp: 36.1 C (97 F) BP: 108/69 Pulse: 96 Resp: 18 SpO2: 97 % on Min/Max Temp past 24 hours:Temp Av.1 C (97 F) Min: 36.1 C (97 F) Max: 36.1 C (97 F) No intake or output data in the 24 hours ending 05/16/17 1715 Wt. Admission: Weight: 72.8 kg (160 lb 7.9 oz) Wt. Current: Weight: 72.8 kg (160 lb 7.9 oz) Wt Readings from Last 3 Encounters: 05/16/17 72.8 kg (160 lb 7.9 oz) 05/02/17 73.5 kg (162 lb 0.6 oz) 04/18/17 74.2 kg (163 lb 9.3 oz) Physical Exam: General: The patient is [...] was secured for infusional therapy. Abdomen: Soft, Tender in the left lower quadrant, no hepatospenomegaly. No palpable meenu s. Bowel sounds present. Ostomy intact in the midline with well perfused stoma. Hong Prat t drain in the left lower quadrant; exit site has progressive confluent erythema and purulen t discharge from around the catheter. There is 30cc of opaque green/brown Fluid in the bulb . Extremities: Nontender, no erythema, no edema. Skin: [...] for PAULETTE BYRNES ( ) as of 05/16/2017 16:56 Ref. Range 05/16/2017 08:52 WBC Latest Ref Range: 4.0 - 11.0 K/uL 4.7 RBC: Latest Ref Range: 3.70 - 5.20 M/uL 3.73 Hgb Latest Ref Range: 11.5 - 16.0 g/dL 10.8 (L) Hct, Final Latest Ref Range: 34.0 - 47.0 % 32.5 (L) MCV Latest Ref Range: 83.0 - 101.0 fL 87.3 MCH Latest Ref Range: 28.0 - 35.0 pg 29.0 MCHC Latest Ref Range: 32.0 - 36.0 g/dL 33.2 RDW-CV Latest Ref Range: <15.0 % 17.4 (H) Platelet Count Latest Ref Range: 140 - 440 K/uL 279 MPV Latest Units: fL 6.5 Absolute Neutrophils Latest Ref Range: 1.80 - 8.50 K/uL 3.60 Absolute Lymphocytes Latest Ref Range: 0.60 - 3.20 K/uL 0.40 (L) Absolute Monocytes Latest Ref Range: 0.00 - 1.00 K/uL 0.50 Absolute Eosinophils Latest Ref Range: 0.00 - 0.40 K/uL 0.10 Absolute Basophils Latest Ref Range: 0.00 - 0.10 K/uL 0.10 % Neutrophils Latest Ref Range: 45.0 - 82.0 % 75.5 % Lymphocytes Latest Ref Range: 20.0 - 45.0 % 9.3 (L) % Monocytes Latest Ref Range: 4.0 - 12.0 % 11.7 % Eosinophils Latest Ref Range: 0.0 - 5.0 % 2.4 % Basophils Latest Ref Range: 0.0 - [...] Latest Ref Range: 70 - 109 mg/dL 120 (H) BUN Latest Ref Range: 7 - 18 mg/dL 10 Creatinine Latest Ref Range: 0.60 - 1.30 mg/dL 0.61 BUN/CREA Unknown 16.4 ALBUMIN Latest Ref Range: 3.2 - 5.0 g/dL 2.9 (L) Albumin/Globulin ratio Latest Ref Range: 0.8 - 2.0 1.0 Total protein Latest Ref Range: 6.0 - 7.8 g/dL 5.9 (L) EGFR IF NOT Latest Ref Range: >=60 mL/min/1.73m2 >60 Calcium Latest Ref Range: 8.3 - 10.5 mg/dL 8.7 ALK PHOS Latest Ref Range: 40 - 110 U/L 78 ALT (SGPT) (REF) Latest Ref Range: 6 - 45 U/L 22 AST (SGOT) (REF) Latest Ref Range: 10 - 42 U/L 34 LDH TOTAL Latest Ref Range: 91 - 180 U/L 160 BILIRUBIN TOTAL Latest Ref Range: 0.1 - 1.5 mg/dL 0.3 GLOBULIN Latest Ref Range: 2.1 - 3.8 g/dL 3.0 CEA Latest Ref Range: 0.0 - 10.0 ng/mL 1.8 Pharmacovigilance: Palliative Care: Patient's Medications New Prescriptions No medications on file Modified Medications No medications on file Discontinued Medications No medications on file Procedure: MRI of pelvis. Portions of this chart may have been created with [employer] voice recognition software. Occasi onal wrong-word or [...] + +---------+--------+ + + | MRI Pelvis w wo | Imaging | Routin | Rectal cancer | Expected: | | Contrast | | e | (HCC) | 05/16/2017, Expires: | | | | | | 05/16/2018 | + +---------+--------+ + + documented as [...] | | | + +--------+ +------+------+------+ | diazePAM (VALIUM) tablet 5 mg | Given | 05/16/20 | 5 mg | | | | 5 mg, Oral, ONCE, 05/16/17 at | | 17 11:10 | | | | | 1025, For 1 dose, Give prior to | | AM PDT | | | | | MRI, | | | | | | + +--------+ +------+------+------+ +---+---+ | | | +---+---+ documented in this encounter
--- OUTSIDE RECORDS SUMMARY | ~2019-06-11 | XMS | Encounter Summary ---
Demographics + + + | Address | [address] | | | [place] [address] | + + + | Home Phone [...] | + + +---------+ + | Darrius uQintana | ECON | Unknown | | + + +---------+ + Care Team Providers + +------+ + | Care Senior Geotechnical Engineer Name | Role | Phone | [...] | | | | [facility] | [place], [place] | | | | | [place] [address] | [address] | | | | | [place], [place] | | | | | | [address] | | | | | | [phone] | | | +--------+ + + + [...] | | 18 | | | | [id number], Skin prep: | | | | | | | 3M [id number] (30/mo), Adh | | | | | | | Rem HO 7760 | | | | | | | (1box/mo), Rings: HO | | | | | | | 8805 (10/mo), | | | | | | | [place]odorant: HO [address] | | | | | | | (60/mo), Pwdr: CT | | | | | | | [id number] (1oz/mo), | | | | | | | Belt: Lrg (2/mo) | | | | | | | and Irrigation [place] | | | | | | | 191574, [place] | | | | | | | [id number] | | | | | + + [...] | | | | | [place], | | | | | | [place] [address] | | | | | | [phone] | | | | | | | | +--------+---------+ + + + documented as of this encounter Visit Diagnoses Not on filedocumented in this encounter"
--- OUTSIDE RECORDS SUMMARY | ~2019-06-11 | XMS | Encounter Summary ---
Demographics + + + | Address | [address] | | | [place] [address] | + + + | Home Phone | | + + + | Preferred Language | Unknown | + + + | Marital Status | | + + + | Hoahaoism Affiliation | Unknown | + + + | Race | Unknown | + + + | Ethnic Group | Unknown | + + + Author + + + | Author | [facility] | | | and [place] | + + + | Organization | [facility] | | | and [place] | + + + | Address | Unknown | + + + | Phone | Unavailable | + + + Support + + + + + | Name | Relationship | Address | Phone | + + + + + | Lamar Phillips | REZA | [place] [address] | | + + + + + Care Team Providers + +------+ + | Care Museum Technician Name | Role | Phone [...] neoplasm of | Mike C, | [address] | | | | | rectum (HCC) | MD [address] | [place], | | | | | Procedures | [address] | [place] [address] | | | | | [place] | [place], | Phone: | | | | | [place] | [place] [address] | [phone] | | | | | HCL | Phone: | Fax: | | | | | INJECTION, 1 | [phone] | [phone] | | | | | MG DE | Fax: | | | | | | DEXAMETHASON | [phone] | | | | | | E SODIUM | | | | | | | PHOS, 1 MG | | | | | | | DE LORAZEPAM | | | | | | | INJECTION, | | | | | | | 2 MG DE | | | | | | | OXALIPLATIN, | | | | | | | .5 MG DE | | | | | | | LEUCOVORIN | | | | | | | CALCIUM | | | | | | | INJECTION, | | | | | | | 50 MG DE | | | | | | | FLUOROURACIL | | | | | | | INJECTION, | | | | | | | 500 MG DE | | | | | | | DIPHENHYDRAM | | | | | | | INE HCL | | | | | | | INJECTIO, 50 | | | | | | | MG DE | | | | | | | METHYLPREDNI | | | | | | | SOLONE | | | | | | | INJECTION, | | | | | | | 125 MG DE | | | | | | | ADRENALIN | | | | | | | EPINEPHRINE | | | | | | | INJECT, .1 | | | | | | | MG DE | | | | | | | ALBUTEROL | | | | | | | COMP CON, 1 | | | | | | | MG DE | | | | | | | ALBUTEROL | | | | | | | NON-COMP | | | | | | | CON, 1 MG | | | | | | | DE | | | | | | | INJECTION, | | | | | | | FAMOTIDINE, | | | | | | | 20 MG DE | | | | | | | NORMAL | | | | | | | SALINE | | | | | | | SOLUTION | | | | | | | INFUS, 500 | | | | | | | ML DE | | | | | | | NORMAL | | | | | | | SALINE | | | | | | | SOLUTION | | | | | | | INFUS, 250 | | | | | | | ML DE | | | | | | | STERILE | | | | | | | WATER/SALINE | | | | | | | , 10 ML DE | | | | | | | CHEMOTHER, | | | | | | | IV PUSH,EA | | | | | | | ADD DRUG DE | | | | | | | CHEMOTHER, | | | | | | | IV INFUSION, | | | | | | | 1 HR DE | | | | | | | CHEMOTHER, | | | | | | | IV INFUSION, | | | | | | | EA HR DE | | | | | | | CHEMOTHER,NO | | | | | | | N-HORMONE | | | | | | | ANTI-NEOPL, | | | | | | | SUB-Q/IM DE | | | | | | | CHEMOTHER | | | | | | | HORMON | | | | | | | ANTINEOPL | | | | | | | SUB-Q/IM DE | | | | | | | | | | | | | | PALONOSETRON | | | | | | | HCL, 25 MCG | | | | | | | DE DRUGS | | | | | | | UNCLASSIFIED | | | | | | | INJECTION, | | | | | | | 1 ML | | | +--------+--------+ + + + + Encounter Details +--------+ + + + + | Date | Type | Department | Care Team | Description | +--------+ + + + + | 08/15/ | Hospital | [facility] | Janel, | Rectal cancer (HCC) | | 2018 | Encounter | MED [facility] CHE[facility] | Mike White MD [address] | | | | | INFUSION [address] | [address] [facility] | | | | | [place], | [place] [address] | | | | | [place] [address] | [phone] | | | | | [phone] | | | +--------+ + + + [...] + + + + | Product | [id number] | | [facility] | | | Code | | | [facility] | | | [facility] | | | | | [facility] - | | | | | | BLOOD BANK | | + + + + + + | UNIT # | [id number] | | [facility] | | | | [...] + + + + | Blood | [id number] | | [facility] | | | Product [...] + + + + | Product | [id number] | | [facility] | | | Code | | | [facility] | | [facility] | | | | | | [facility] - | | | | | | BLOOD BANK | | + + + + + + | UNIT # | [id number] | | [facility] | | | | [...] + + + + | Blood | [id number] | | [facility] | | | Product [...] St | [address] | | | [facility] | | [address] | | | - BLOOD BANK | [...] St | [address] [address] | | | [facility] | | [address] | | | - BLOOD BANK | [...] + | [facility] | [address] | Pippa Das [place] | [phone] | | [facility] | | [address] | | | - LABORATORY | | [...] [address] | Pippa Das [place] | [phone] | | [facility] | | [address] | | | - LABORATORY | | [...] mL/min/1.73m2 | [facility] | | | [place] | RATE,ESTIMATED | | MEDICAL | | | | mL/min/1.70y2Fisy than | | CENTER - | | [...] [address] | Pippa Das [place] | [phone] | | [facility] | | [address] | | | - LABORATORY | | [...]
--- OUTSIDE RECORDS SUMMARY | ~2019-06-11 | XMS | Encounter Summary ---
Demographics + + + | Address | [address] | | | [place] [address] | + + + | Home Phone [...] Providers + +------+ + | Care Lead Generation Marketing Manager Name | Role | Phone [...] | | 2018 | | Center at [facility] [address] | [address] | Received | | | | [address] | [place]mita Hines [place], | | | | | Mailcode: [place] | [place] [address] | | | | | for Health and | [phone] | | | | | [facility] [address] | | | | | | [place], [place] | | | | | | [address] | | | | | | [phone] | | | +--------+ + + + [...] | | | | | Amita Hines [place], | | | | | | [place] [address] | | | | | | [phone] | | | | | | | | +--------+---------+ + + + documented as of this encounter Visit Diagnoses Not on filedocumented in this encounter"
--- OUTSIDE RECORDS SUMMARY | ~2019-06-11 | XMS | Encounter Summary ---
Demographics + + + | Address | [address] | | | [place] [address] | + + + | Home Phone [...] + +------+ + | Care Quality Assurance Assessor Name | Role | Phone | + [...] | | | | [facility] | [place], [place] | | | | | [place] [address] | [address] | | | | | [place], [place] | | | | | | [address] | | | | | | [phone] | | | +--------+ + + + [...] | | | | | Amita Hines [place], | | | | | | [place] [address] | | | | | | [phone] | | | | | | | | +--------+---------+ + + + documented as of this encounter Visit Diagnoses Not on filedocumented in this encounter"
--- OUTSIDE RECORDS SUMMARY | ~2019-06-11 | XMS | Encounter Summary ---
Demographics + + + | Address | [address] | | | [place] [address] | + + + | Home Phone [...] Team Providers + +------+ + | Care Cigar Packer And Grader Name | Role | Phone | + [...] | | [address] | Amita Hines [place], | | | | | Mailcode: [place] | [place] [address] | | | | | for Health and | [phone] | | | | | [facility] | | | | | | [place], [place] | | | | | | [address] | | | | | | [phone] | | | +--------+ + + + [...] | | | | | Amita Hines [place], | | | | | | [place] [address] | | | | | | [phone] | | | | | | | | +--------+---------+ + + + documented as of this encounter Visit Diagnoses Not on filedocumented in this encounter"
--- OUTSIDE RECORDS SUMMARY | ~2019-06-11 | XMS | Encounter Summary ---
Demographics + + + | Address | [address] | | | [place] [address] | + + + | Home Phone [...] Team Providers + +------+ + | Care Institutional Research Director Name | Role | Phone | [...] Pass | Services at [facility] | | | | | | [address] | | | | | | Amita Hines Mailcode: | | | | | | [address] [facility] | | | | | | [place], [place] | | | | | | [address] | | | | | | [phone] | | | +--------+ + + + [...] | | | | | Amita Hines [place], | | | | | | [place] [address] | | | | | | [phone] | | | | | | | | +--------+---------+ + + + documented as of this encounter Visit Diagnoses Not on filedocumented in this encounter"
--- OUTSIDE RECORDS SUMMARY | ~2019-06-11 | XMS | Encounter Summary ---
Demographics + + + | Address | [address] | | | [place] [address] | + + + | Home Phone | | + + + | Preferred Language | Unknown | + + + | Marital Status | | + + + | Anglican Affiliation | Unknown | + + + | Race | Unknown | + + + | Ethnic Group | Unknown | + + + Author + + + | Author | [facility] | | | and [place] | + + + | Organization | [facility] | | | and [place] | + + + | Address | Unknown | + + + | Phone | Unavailable | + + + Support + + + + + | Name | Relationship | Address | Phone | + + + + + | Lamar Phillips | REZA | [place] [address] | | + + + + + Care Team Providers + +------+ + | Care Certified Ski Patroller Name | Role | Phone | + [...] | | | | | Rectal | Joel White DO | [place] | | | | | cancer (HCC) | [address] | [place], | | | | | Procedures | [address] | [place] [address] | | | | | CT | [place], | Phone: | | | | | Treatment | [place] [address] | [phone] | | | | | Plan Complex | Phone: | Fax: | | | | | CT TX PLAN | [phone] | [phone] | | | | | | Fax: | | | | | | | [phone] | | +--------+--------+ + + + + Reason for Visit Diagnostic/Screening (Routine) +--------+--------+ + + + + | Status | Reason | Specialty | Diagnoses / | Referred By | Referred To | | | | | Procedures | Contact | Contact | +--------+--------+ + + + + | Closed | | Radiology | Diagnoses | [place], | [address] | | | | | Rectal | Joel White DO | [place] | | | | | cancer (HCC) | [address] | [place], | | | | | Procedures | [address] | [place] [address] | | | | | CT | [place], | Phone: | | | | | Treatment | [place] [address] | [phone] | | | | | Plan Complex | Phone: | Fax: | | | | | CT TX PLAN | [phone] | [phone] | | | | | | Fax: | | | | | | | [phone] | | +--------+--------+ + + + + Encounter Details +--------+ + + + + | Date | Type | Department | Care Team | Description | +--------+ + + + + | 12/27/ | Hospital | [facility] | Joel Alfaro DO | Rectal cancer (HCC) | | 2017 | Encounter | MED [facility] [address] | [address] | | | | | [place], | [place], [place] | | | | | [place] [address] | [address] | | | | | [phone] | | | +--------+ + + + [...] + +--------+ + + + | CT TREATMENT PLAN | Routin | 12/27/2016 | Rectal cancer | Results for this | | COMPLEX | e | 9:10 AM | (HCC) | procedure are in the | | | | PDT | | results section. | + +--------+ + + + documented in this encounter Results CT Treatment Plan Complex (12/27/2016 9:10 AM PDT) + + | Specimen | + + | | + + + + + | Narrative | Performed At | + + + | No Radiologist interpretation, please see Chart Review. | [facility] | + + + + +---------+ + + | [...] in this encounter Administered Medications + +--------+ +--------+------+ + | Medication Order | MAR | Action | Dose | Rate | Site | | | Action | Date | | | | + +--------+ +--------+------+ + | iohexol (OMNIPAQUE 350) 350 | Given | 12/28/19 | 75 mLs | | Left Arm | | mg/mL injection 75 mL 75 mL, | | 17 9:09 | | | | | Intravenous, ONCE PRN, Other, | | AM PDT | | | | | Starting 12/27/16 at 0909, For | | | | | | | 1 dose, Cat Scanner | | | | | | + +--------+ +--------+------+ + +---+---+ | | | +---+---+ documented in this encounter"
--- OUTSIDE RECORDS SUMMARY | ~2019-06-11 | XMS | Encounter Summary ---
Demographics + + + | Address | [address] | | | [place] [address] | + + + | Home Phone | | + + + | Preferred Language | Unknown | + + + | Marital Status | | + + + | Congregation Affiliation | Unknown | + + + | Race | Unknown | + + + | Ethnic Group | Unknown | + + + Author + + + | Author | [facility] | | | and [place] | + + + | Organization | [facility] | | | and [place] | + + + | Address | Unknown | + + + | Phone | Unavailable | + + + Support + + + + + | Name | Relationship | Address | Phone | + + + + + | Lamar Phillips | REZA | [place] [address] | | + + + + + Care Team Providers + +------+ + | Care Food And Beverage Lead Name | Role | Phone | [...] + + | 02/07/ | Hospital | [facility] | [facility], | Rectal cancer (HCC) | | 2017 | Encounter | [facility] | Sirena White MD [address] | | | | | ONCOLOGY CLINIC [address] | [facility] | | | | | W [facility] | [place] [address] | | | | | [place] [address] | [phone] | | | | | [phone] | | | +--------+ + + + [...] nt from the original. Hematology/Oncology Progress Note [facility] LETY Cheema Pt. Name/Age/: Paulette Byrnes 56 y.o. 1960 Med. Record Number: [id number] Date of admission: 02/07/2017 The patient's primary care provider is Kristian Anderson DO. Identifying Statement: Paulette Byrnes is a 56 y.o. female from [address] [place] [address] with Locally Advanced Rectal Cancer. The patient chart and medications were reviewed in detail and the patient was seen and exam ined. History of Present Illnesses, their Current Assessments and Plans: Problem List Rectal cancer Overview ACTIVE DIAGNOSIS: Locally Advanced Rectal Cancer. 1. Paulette presented to the [facility] emergency room on July 20, [...] cm within the rectum. Biopsy specimen number [id number] evaluated by Dr. Felipe Nixon of [facility] was notable for a tubular adenoma without high-grade dysplasia or overt carcinoma. This proced ure also included a full colonoscopy through the ostomy were 2 additional polyps were remove d, a tubular adenoma at 35 cm and a hyperplastic polyp at [address] C/A/P at [facility] in [place], [place] demonstrated no evidence of metastatic disease. [...] tumor proper. Concerns raised by the [facility] Tumor Board were that the [...] as well as mutation analysis." Pathological Specimen #[id number] ([facility]). Tubulovillous adenoma with high grade [...] comprehensive re-evaluation with Dr. Ailyn Wolff at [facility] i ncluding imaging on March 02, 2017. [...] this chart may have been created with [employer] voice recognition software. Occasi onal wrong-word or [...]
--- OUTSIDE RECORDS SUMMARY | ~2019-06-11 | XMS | Encounter Summary ---
Demographics + + + | Address | [address] | | | [place] [address] | + + + | Home Phone [...] Team Providers + +------+ + | Care Payroll Processor Name | Role | Phone | + [...] | | [address] | [place], | | | | | Mailcode: [place] | [place] [address] | | | | | for Health and | [phone] | | | | | [facility] [address] | | | | | | [place], [place] | | | | | | [address] | | | | | | [phone] | | | +--------+ + + + [...] | | | | | [place], | | | | | | [place] [address] | | | | | | [phone] | | | | | | | | +--------+---------+ + + + documented as of this encounter Visit Diagnoses Not on filedocumented in this encounter"
--- OUTSIDE RECORDS SUMMARY | ~2019-06-11 | XMS | Encounter Summary ---
Demographics + + + | Address | [address] | | | [place] [address] | + + + | Home Phone [...] Team Providers + +------+ + | Care Weed Cooking Operator Name | Role | Phone | + +------+ + | Kristian Anderson DO | PCP | | + +------+ + Encounter Details +--------+ + + + + | Date | Type | Department | Care Team | Description | +--------+ + + + + | 07/19/ | Business English Instructor | Digestive Health | Trinidad Garcia, | | | 2016 | | Center at [facility] [address] | AGACNP [address] | | | | | [address] | [facility] [place] | | | | | Mailcode: [place] | [address] | | | | | for Health and | | | | | | [facility], [facility] [address] | | | | | | [facility] [place] | | | | | | [address] | | | | | | [phone] | | | +--------+ + + + [...] | | | | | [place], | | | | | | [place] [address] | | | | | | [phone] | | | | | | | | +--------+---------+ + + + documented as of this encounter Visit Diagnoses Not on filedocumented in this encounter"
--- OUTSIDE RECORDS SUMMARY | ~2019-06-11 | XMS | Encounter Summary ---
Demographics + + + | Address | [address] | | | [place] [address] | + + + | Home Phone [...] Team Providers + +------+ + | Care Magician Helper Name | Role | Phone | + +------+ + | Kristian Anderson DO | PCP | | + +------+ + Encounter Details +--------+ + + + + | Date | Type | Department | Care Team | Description | +--------+ + + + + | 01/03/ | Document-Sc | Health Information | Unknown . | | | 2017 | anned | Services [address] | | | | | | [address] | | | | | | Mailcode: [address]A | | | | | | [facility] | | | | | | [place], [place] | | | | | | [address] | | | | | | [phone] | | | +--------+ + + + [...] | | | | | | [place] [address] | | | | | | [phone] | | | | | | | [...]
--- OUTSIDE RECORDS SUMMARY | ~2019-06-11 | XMS | Encounter Summary ---
Demographics + + + | Address | [address] | | | [place] [address] | + + + | Home Phone | | + + + | Preferred Language | Unknown | + + + | Marital Status | | + + + | Shinto Affiliation | Unknown | + + + | Race | Unknown | + + + | Ethnic Group | Unknown | + + + Author + + + | Author | [facility] | | | and [place] | + + + | Organization | [facility] | | | and [place] | + + + | Address | Unknown | + + + | Phone | Unavailable | + + + Support + + + + + | Name | Relationship | Address | Phone | + + + + + | Lamar Phillips | REZA | [place] [address] | | + + + + + Care Team Providers + +------+ + | Care Caster Investment Casting Name | Role | Phone | + [...] Rectal | Joel White DO | [place] | | | | | cancer (HCC) | [address] | [place], | | | | | Procedures | [address] | [place] [address] | | | | | CT | [place], | Phone: | | | | | Treatment | [place] [address] | [phone] | | | | | Plan Complex | Phone: | Fax: | | | | | CT TX PLAN | [phone] | [phone] | | | | | | Fax: | | | | | | | [phone] | | +--------+--------+ + + + + Encounter Details +--------+ + + + + | Date | Type | Department | Care Team | Description | +--------+ + + + + | 10/20/ | Orders Only | [facility] | Joel Alfaro DO | Rectal cancer (HCC) | | 2017 | | MED CTR RADIATION | [address] | (Primary Dx) | | | | ONCOLOGY [address] | [place], [place] | | | | | [place], | [address] | | | | | [place] [address] | | | | | | [phone] | | | +--------+ + + + [...] on filedocumented as of this encounter Results CT Treatment Plan Complex [...]
--- OUTSIDE RECORDS SUMMARY | ~2019-06-11 | XMS | Encounter Summary ---
Demographics + + + | Address | [address] | | | [place] [address] | + + + | Home Phone [...] Team Providers + +------+ + | Care Integrity Specialist Name | Role | Phone | [...] 2017 | on | Center at [facility] [address] | [address] | (GI Oncology | | | | [address] | [place], | Planning Conference) | | | | Mailcode: [place] | [place] [address] | | | | | for Health and | [phone] | | | | | [facility] [address] | | | | | | [place], [place] | | | | | | [address] | | | | | | [phone] | | | +--------+ + + + [...] | | | | | [place], | | | | | | [place] [address] | | | | | | [phone] | | | | | | | | +--------+---------+ + + + documented as of this encounter Visit Diagnoses Not on filedocumented in this encounter"
--- OUTSIDE RECORDS SUMMARY | ~2019-06-11 | XMS | Encounter Summary ---
Demographics + + + | Address | [address] | | | [place] [address] | + + + | Home Phone | | + + + | Preferred Language | Unknown | + + + | Marital Status | | + + + | Pentecostal Affiliation | Unknown | + + + | Race | Unknown | + + + | Ethnic Group | Unknown | + + + Author + + + | Author | [facility] | | | and [place] | + + + | Organization | [facility] | | | and [place] | + + + | Address | Unknown | + + + | Phone | Unavailable | + + + Support + + + + + | Name | Relationship | Address | Phone | + + + + + | Lamar Phillips | REZA | [place] [address] | | + + + + + Care Team Providers + +------+ + | Care Sap Pi Developer Name | Role | Phone | [...] + + | 12/27/ | Hospital | [facility] | [facility], | Rectal cancer (HCC) | | 2017 | Encounter | [facility] | Sirena White MD [address] | (Primary Dx) | | | | ONCOLOGY CLINIC [address] | [facility] | | | | | [facility] | [place] [address] | | | | | [place] [address] | [phone] | | | | | [phone] | | | +--------+ + + + [...] + + + | Blood Pressure | 121/77 | 12/27/2016 9:36 AM | | | | | PDT | | + + + + + | Pulse | 82 | 12/27/2016 9:36 AM | | | | | PDT | | + + + + + | Temperature | 36.1 C (96.9 F) | 12/27/2016 9:36 AM | | | | | PDT | | + + + + + | Respiratory Rate | 16 | 12/27/2016 9:36 AM | | | | | PDT | | + + + + + | Oxygen Saturation | 98% | 12/27/2016 9:36 AM | | | | | PDT | | + + + + + | Inhaled Oxygen | - | - | | | Concentration | | | | + + + + + | Weight | 68.4 kg (150 lb 12.8 | 12/27/2016 9:36 AM | | | | oz) | PDT | | + + + + + | Height | - | - | | + + + + + | Body Mass Index | 25.88 | 10/18/2016 11:04 AM | | | [...] encounter Progress Notes Sirena Helton MD - 12/27/2016 9:21 AM PDTFormatting of this note might be differe nt from the original. Hematology/Oncology Progress Note [facility] LETY Cheema Pt. Name/Age/: Paulette Byrnes 56 y.o. 1960 Med. Record Number: [id number] Date of admission: 12/27/2016 The patient's primary care provider is Kristian Anderson DO. Identifying Statement: Paulette Byrnes is a 56 y.o. female from [address] [place] [address] with Locally Advanced Rectal Cancer. The patient chart and medications were reviewed in detail and the patient was seen and exam ined. History of Present Illnesses, their Current Assessments and Plans: Problem List Rectal cancer Overview ACTIVE DIAGNOSIS: Locally Advanced Rectal Cancer. 1. Paulette presented to the [facility] emergency room on July [...] cm within the rectum. Biopsy specimen number [id number] evaluated by Dr. Felipe Nixon of [facility] was notable for a tubular adenoma without high-grade dysplasia or overt carcinoma. This proced ure also included a full colonoscopy through the ostomy were 2 additional polyps were remove d, a tubular adenoma at 35 cm and a hyperplastic polyp at [address] C/A/P at [facility] in [place], [place] demonstrated no evidence of metastatic disease. 4. On September 22, 2016 Dr. Thacker placed in internal jugular Port-A-Cath without complications. 5. MRI of pelvis performed on October 05, 2016 at [facility]: Rectal mass 7.7 cm x 6.2 cm x 9.6 cm in length located within 3 cm of the anal sphincter and 6.4 cm from the anal verge with radi ographic extension though multiple areas of the bowel wall. 6. CT abdomen/pelvis also at [facility] October 05, 2016; large almost [...] proper. Concerns raised by the [facility] Tumor Board were that the [...] as well as mutation analysis." Pathological Specimen #[id number] ([facility]). 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 "This is highly suspicious for invasive malignancy. Presence of absence of an invasive lesi on cannot be established with certainty." Current Assessment & Plan Paulette Byrnes returned to clinic with a peanut roaster for cycle #6 Folfox chemotherapy f or locally advanced rectal cancer. Review of systems is notable for no change in ostomy output quantity or quality. Clinical exam is notable for resolution of the candidiasis from around her ZAIN drain exit si te. ZAIN drainage is now bloody but remains less than 5 cc a day. Laboratory exam is notable for the absence of myelosuppression. Assessment; locally advanced rectal cancer-improved. Plan; Cycle # 6 FOLFOX today. Paulette reports that consultation with Dr. Ailyn Wolff with advance imaging at [facility] has been cancel led. There is no communication available from Dr. Wolff so this cannot be independently confirm ed. Paulette will return on January 10, 2017 to begin combined modality therapy with CIVI 5FU at 225 m g/m/day concurrently with external beam radiation supervised by Dr. Alfaro.Paulette had her gregg tment planning CT scan today. Review of Systems: REVIEW OF SYSTEMS Constitutional: Reports energy level is fair. Fatigues more in the afternoons. Reports incr eased nausea. Reports night sweats continue but are improving. Appetite varies. Denies high fevers, shaking chills, anorexia, vomiting, weight loss. Ear, Nose, Mouth, Throat: Denies odynophagia, dysphagia, or tinnitus. Cardiovascular: Denies shortness of breath, dyspnea on exertion, chest pain, palpitations o r orthopnea. Respiratory: Denies cough, hemoptysis, or sputum production. Gastrointestinal: States she has pain in abdomen when she is constipated. States she has in termittent constipation and diarrhea. Reports bloody discharge from rectum. Reports blood in drain tube as well. Denies melena, or bright red blood per rectum. Genitourinary: Denies hematuria or dysuria. Musculoskeletal:Chronic joint pain in fingers continues. Neurologic: Reports a few recent headaches. Denies visual changes, or numbness/tingling of the extremities. Endocrine: Denies peripheral edema or heat/cold intolerance. Hematologic: Denies spontaneous bruising or bleeding. Integumentary: Reports irritation continues around drain tube. Skin is tender around that a marlena, denies spreading area of redness. Pain: Denies pain. Note: Here for follow up, labs and 5 hour treatment. My chart: Active. Scheduled Medications: Current Outpatient Prescriptions Medication Sig Dispense Refill ALPRAZolam (XANAX) 0.5 mg tablet Bring with to scheduled MRI, take one tablet 30 minute s before MRI, may repeat as needed. (Patient not taking: Reported on 12/27/2016) 2 tablet 0 ascorbic acid (VITAMIN C) [...] Q46H Sirena Helton MD 4,050 mg at 12/27/16 1535 Allergies: Allergy: Allergies Allergen Reactions Propoxyphene Na [...] cancer Lichen sclerosus Objectives: Temp: 36.1 C (96.9 F) BP: 121/77 Pulse: 82 Resp: 16 SpO2: 98 % on Min/Max Temp past 24 hours:Temp Av.1 C (96.9 F) Min: 36.1 C (96.9 F) Max: 3 6.1 C (96.9 F) No intake or output data in the 24 hours ending 12/27/16 2115 Wt. Admission: Weight: 68.4 kg (150 lb 12.8 oz) Wt. Current: Weight: 68.4 kg (150 lb 12 .8 oz) Wt Readings from Last 3 Encounters: 12/27/16 68.4 kg (150 lb 12.8 oz) 12/13/16 68.3 kg (150 lb 8 oz) 11/29/16 66.1 kg (145 lb 12.8 oz) Physical Exam: General: The patient is [...] the left lowe r quadrant; exit site is clean dry and intact. There is 5 cc of bloody fluid in the bulb. Extremities: Nontender, no [...] J. Clin. Oncol.: John Paul Baer., Jumana, RMichael., Fransisca Baltazar., Chayito Roque., Thaddeus, TLuis Alfredo., [...] for PAULETTE BYRNES ( ) as of 12/27/2016 21:05 Ref. Range 12/27/2016 07:45 WBC Latest Ref Range: 4.0 - 11.0 K/uL 6.9 RBC: Latest Ref Range: 3.70 - 5.20 M/uL 4.45 Hgb Latest Ref Range: 11.5 - 16.0 g/dL 11.7 Hct, Final Latest Ref Range: 34.0 - 47.0 % 36.1 MCV Latest Ref Range: 83.0 - 101.0 fL 81.1 (L) MCH Latest Ref Range: 28.0 - 35.0 pg 26.3 (L) MCHC Latest Ref Range: 32.0 - 36.0 g/dL 32.4 RDW-CV Latest Ref Range: <15.0 % 22.8 (H) Platelet Count Latest Ref Range: 140 - 440 K/uL 271 MPV Latest Units: fL 6.9 Absolute Neutrophils Latest Ref Range: 1.80 - 8.50 K/uL 4.60 Absolute Lymphocytes Latest Ref Range: 0.60 - 3.20 K/uL 1.10 Absolute Monocytes Latest Ref Range: 0.00 - 1.00 K/uL 0.80 Absolute Eosinophils Latest Ref Range: 0.00 - 0.40 K/uL 0.40 Absolute Basophils Latest Ref Range: 0.00 - 0.10 K/uL 0.10 % Neutrophils Latest Ref Range: 45.0 - 82.0 % 66.9 % Lymphocytes Latest Ref Range: 20.0 - 45.0 % 16.3 (L) % Monocytes Latest Ref Range: 4.0 - 12.0 % 11.0 % Eosinophils Latest Ref Range: 0.0 - 5.0 % 5.1 (H) % Basophils Latest Ref Range: 0.0 - 1.0 % 0.7 Results for PAULETTE BYRNES ( ) as of 12/27/2016 21:05 Ref. Range 12/27/2016 10:25 NA Latest Ref Range: 136 - 149 mmol/L 139 K Latest Ref Range: 3.5 - 5.1 mmol/L 4.0 Chloride Latest Ref Range: 98 - 109 mmol/L 105 Carbon dioxide Latest Ref Range: 24 - 31 mmol/L 26 ANION GAP Latest Ref Range: 3 - 16 mmol/L 8 GLUCOSE Latest Ref Range: 70 - 109 mg/dL 78 BUN Latest Ref Range: 7 - 18 mg/dL 10 Creatinine Latest Ref Range: 0.60 - 1.30 mg/dL 0.61 BUN/CREA Unknown 16.4 ALBUMIN Latest Ref Range: 3.2 - 5.0 g/dL 3.2 Albumin/Globulin ratio Latest Ref Range: 0.8 - 2.0 1.0 Total protein Latest Ref Range: 6.0 - 7.8 g/dL 6.5 EGFR IF NOT Latest Ref Range: >=60 mL/min/1.73m2 >60 Calcium Latest Ref Range: 8.3 - 10.5 mg/dL 8.7 ALK PHOS Latest Ref Range: 40 - 110 U/L 108 ALT (SGPT) (REF) Latest Ref Range: 6 - 45 U/L 24 AST (SGOT) (REF) Latest Ref Range: 10 - 42 U/L 29 LDH TOTAL Latest Ref Range: 91 - 180 U/L 168 BILIRUBIN TOTAL Latest Ref Range: 0.1 - 1.5 mg/dL 0.4 GLOBULIN Latest Ref Range: 2.1 - 3.8 g/dL 3.3 Pharmacovigilance: Palliative Care: Patient's Medications New Prescriptions No medications on file Modified Medications No medications on file Discontinued Medications No medications on file Procedure: Day 1, Cycle 6 (14-day cycle) Completed; Released on 12/27/2016; Originally planned for 12/27/2016 Labs Lactate Dehydrogenase STAT, ONE TIME, 12/27/16 at 0746, For 1 occurrence OrderHistory Comprehensive Metabolic Panel STAT, ONE TIME, 12/27/16 at 0746, For 1 occurrence OrderHistory CBC with Differential STAT, ONE TIME, Tue12/27/16 at 0746, For 1 occurrence OrderHistory Nursing Orders OK to proceed with chemotherapy (Not Released) 12/27/16 - INFORMED CONSENT: The nature and character of the proposed treatment with Cycle #6 of FolFo x and the anticipated results of the proposed treatment with Cycle #6 of FolFox;recognized a lternative forms of treatment, including non-treatment; the risks benefits, and side effects of proposed treatment, alternative treatments and non-treatment were discussed with the pat ient who consents to proceed with treatment with Cycle #6 of FolFox. The treating provider h as examined the patient and reviewed the diagnostic data, including laboratory data, and ambika ms that it is safe and appropriate to proceed with treatment with Cycle #6 of FolFox.SIRENA HELTON MD. OrderHistory Plans for discharge (Not Released) Please be aware of the treatment schedule for Paulette Byrnes; Cycle #6 FOLFOX on 12/[address] scan done same day, immediately prior. 01/10; cross over to CIVI 5FU at 225 mg/m with rads. Please work with radiation oncology to schedule treatment planning CT scan on 12/27. Thank you, Electronically signed by: SIRENA HELTON MD 11/29/2016 18:28 ARRANGE FOR PUMP OFF AT [facility] ON Tuesday PLEASE QFU CBC,CMP, LDH, CEA * PORT DRAW AND 1 HOUR RX IN 14 DAYS WILL BE STARTING CONTINU OUS 5FU PUMP(must be a Tuesday) TELL PATIENT TO COME IN ON FRIDAYS FOR BATTERY CHANGE++QFU IN 7 DAYS Tuesday CBC,CMP,LDH/PORT AND 1 HR RX OrderHistory Pre-Medications ondansetron (ZOFRAN) 8 mg, dexamethasone (DECADRON) 4 mg in sodium chloride 0.9% 50 mL IVPB Intravenous, Administer over 16 Minutes, ONCE, Tue12/27/16 at 1145, For 1 dose Administer 30 minutes prior to chemotherapy. OrderHistory fosaprepitant (EMEND) 150 mg in sodium chloride 0.9% 150 mL IVPB 150 mg, Intravenous, Administer over 20 Minutes, ONCE, Tue12/27/16 at 1200, For 1 dose Do not shake bag. [...] Intravenous, Admi nister over 2 Hours, ONCE, 6/5/17 at 1215, For 1 dose Chemotherapy: Use appropriate handling precautions. Not compatible with NS or any chloride- containing solutions. Flush line with D5W prior to giving any other meds. Administer via y- site with leucovorin. OrderHistory leucovorin 340 mg in dextrose 5% 250 mL infusion 340 mg (rounded from 338 mg = 200 mg/m2 1.69 m2 Order-specific BSA), Intravenous, Admin ister over 2 Hours, ONCE, Tue12/27/16 at 1215, For 1 dose Administer via y-site with oxaliplatin OrderHistory fluorouracil 4,050 mg in sodium chloride 0.9% 11 mL CADD PUMP chemo infusion 4,050 mg (rounded from 4,056 mg = 2,400 mg/m2 1.69 m2 Order-specific BSA), Intravenous, Administer over 46 Hours, EVERY 46 HOURS, First dose on Tue12/27/16 at 1445 OUTPATIENT Chemotherapy: Use appropriate handling precautions. Protect [...] fever, r shalonda, back pain, dyspnea). Notify . OrderHistory Nursing communication (Not Released) STAT, UNTIL [...] this chart may have been created with Meiaoju voice recognition software. Occasi onal wrong-word or [...]
--- OUTSIDE RECORDS SUMMARY | ~2019-06-11 | XMS | Encounter Summary ---
Demographics + + + | Address | [address] | | | [place] [address] | + + + | Home Phone [...] Team Providers + +------+ + | Care Sample Wrapper Name | Role | Phone | + +------+ + | Kristian Anderson DO | PCP | | + +------+ + Encounter Details +--------+ + + + + | Date | Type | Department | Care Team | Description | +--------+ + + + + | 05/17/ | Document-Sc | Health Information | Unknown . | | | 2017 | anned | Services [address] | | | | | | [address] | | | | | | Mailcode: OP17A | | | | | | [facility] | | | | | | [place], [place] | | | | | | [address] | | | | | | [phone] | | | +--------+ + + + [...] | | | | A[place], | | | | | | [place] [address] | | | | | | [phone] | | | | | | | [...]
--- OUTSIDE RECORDS SUMMARY | ~2019-06-11 | XMS | Encounter Summary ---
Demographics + + + | Address | [address] | | | [place] [address] | + + + | Home Phone [...] Team Providers + +------+ + | Care Set Up Mechanic Coil Winding Machines Name | Role | Phone | [...] | | | | Pre-operativ | [address] 1894 | | | | | | e | [address] | | | | | | cardiovascul | [place], | | | | | | ar | [place] | | | | | | examination | [address] | | | | | | Tobacco | Phone: | | | | | | abuse | [phone] | | | | | | Dyspnea, | Fax: | | | | | | unspecified | [phone] | | | | | | type [...] | | | | Pre-operativ | [address] | | | | | | e | [address] | | | | | | cardiovascul | [place], | | | | | | ar | [place] | | | | | | examination | [address] | | | | | | Tobacco | Phone: | | | | | | abuse | [phone] | | | | | | Dyspnea, | Fax: | | | | | | unspecified | [phone] | | | | | | type [...] | | Procedures | CLINIC [address] | [facility] | | | | | CONSULT TO | [address] | for Health | | | | | CARDIOLOGY | [address]VE | and Healing, | | | | | | [place], | [address], | | | | | | [place] [address] | [facility] floor | | | | | | Phone: | [place], [place] | | | | | | [phone] | [address] | | | | | | Fax: | Phone: | | | | | | [phone] | [phone] | | | | | | | Fax: | | | | | | | [phone] | +--------+--------+ + + + + Encounter Details +--------+---------+ + + + | Date | Type | Department | Care Team | Description | +--------+---------+ + + + | 10/06/ | Office | Cardiology General | Bischof, Brittany | Dyspnea, unspecified | | 2017 | Visit | at [facility] [address] | [address] | type (Primary Dx); | | | | [address] Mailcode: | [address] [facility], | Pre-operative | | | | [facility] | [place] [address] | cardiovascular | | | | Health and Healing, | [phone] | examination; Tobacco | | | | Building | | abuse; Aortic | | | | floor [place], [place] | | systolic murmur on | | | | [address] | | examination | | | | [phone] | | | +--------+---------+ + + + [...] echo a nd dobutamine stress echo in [place], Call us back if they cannot get these done before 10/18/16 and we can do the tests at [facility].Electronically signed by WEN Gagnon 10/06/2016 8:38 [...] stents. He is 64. Her father of [place] at 52. History of Endocarditis or need for Endocarditis Prophylaxis? no History of Phen-Fen exposure? 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 She can walk up two [...] negative for ischemia. Outside records reviewed from [facility] (in media tab) Cardiac Risk Stratification (based [...] [address] Mailcode: [address] [facility] [place] [address] [phone] signed by Brittany Laboy PA-C at 10/07/2016 [...] | | | | | [address] [place], | | | | | | [place] [address] | | | | | | [phone] | | | | | | | [...] | + +--------+ + + + | ECG TRACING FOR | | 10/06/2016 | | Results for this | | STRESS | | 12:00 AM | | procedure are in the | | ECHOCARDIOGRAM | | PDT | | results section. | + +--------+ + + + documented in this encounter Results STRESS DOBUTAMINE ECHOCARDIOGRAM, ADULT (10/06/2016 11:17 AM PDT) + + | Specimen | + + | | + + + + + | Narrative | Performed At | + + + | [facility] DEPT OF | | [facility]ch[facility] [address] | CARDIOLOGY | | [address], [place] [address] Ph: | | | Pt Name: PAULETTE BYRNES | | | Study Date / Time 10/06/2016 / 11:17:12 AMMRN: [id number] | | | Most recent prior: 10/06/2016Acc #: | | | [id number] No. previous echos: 1DOB: | | | 1960 Age: 55 years Gender: FHeight: 63.0 in | | | BSA: 1.67 p0Tvnydm: | | | 142 lb Order ID: | | | [id number] medications: None.Indications: Preoperative | | | Evaluation Cath Lab Nurse: Isaiah Min RDCS Referring Provider: Brittany | | | E BischofPatient Location: [facility] Performed: Definity contrast | | | and [...] Romelia Otero, | | | RNSupervising Physician: ASHLEY Cabraleport electronically | | | signed by: [id number] Cole Chávez MD (10/06/2016, 1:52:06 | | | PM)REPORT [id number]=[id number] HOSP=PO REGION=A0 Final | | | | [...] MD | | |Report electronically signed by: [id number] Cole Chávez MD (10/06/2016, 1:52:06 | | |PM) | | |REPORT [id number]=[id number] HOSP=PO REGION=A0 | | | | | | | | | | | | | | | | | | Final | | + + + + + | Procedure Note | + + | Interface, Cardiology Results - 10/06/2016 1:52 PM [email or web address] | | [facility] [address] [place] [address] | | [place], [place] [address] Pt Name: PAULETTE | | BRITTANY BYRNES Study Date / Time 10/06/2016 / 11:17:12 AMMRN: [id number] | | Most recent prior: 10/06/2016Acc #: [id number] No. previous | | echos: 1DOB: 1960 Age: 55 years Gender: FHeight: 63.0 in | | BSA: 1.67 z4Rlaxwj: 142 lb Order ID: | | [id number] medications: None.Indications: Preoperative Evaluation Cath Lab Nurse: | | Isaiah Min [facility] Referring Provider: Brittany Rojas Location: [facility] | | Performed: Definity contrast and Dobutamine [...] 3=Akinetic, 4=Dyskinetic, | | 5=Aneurysmal Supervising RN: MILTON Ohupervising Physician: Cole | | Jose M Chávez electronically signed by: [id number] Cole Chávez MD (10/06/2016, | | 1:52:06 PM)REPORT [id number]=[id number] HOSP= REGION=A0 Final | |predicted maximal heart rate [...] Chávez MD | |Report electronically signed by: [id number] Cole Chávez MD (10/06/2016, 1:52:06 | |PM) | |REPORT [id number]=[id number] HOSP=PO REGION=A0 | | | | | | | | | | | | Final | + + + + + + + | Performing | Address | City/State/Zipcode | Phone Number | | Organization | | | | + + + + + | [facility] DEPT OF | [address] | [place], [place] | | | CARDIOLOGY | [address] | [address] | | + + + + + [...] formed At | + +---- + | [facility] | [facility] DEPT OF | | [facility] Adult Echocardi[facility] [address] | CAR DIOLOGY | | [place], [place] [address] Ph: | | | Pt Name: PAULETTE BYRNES | | | Study Date/Time 10/06/2016 / 8:59:07 AMMRN: [id number] | | | Most recent prior: -[facility] #: [id number] | | | No. previous echos: 0DOB: 1960 55 years Heart Rate: | | | 78 bpmHeight: 63.0 in Blood | | | Pressure: 131/69 mm/HgWeight: 142.0 lb | | | Gender: FBSA: 1.67 m2 | | | Order ID: [id number] Cath Lab Nurse: Brandon Hwang MA, | | | [facility] Referring Provider: Brittany Starksatisuki Location: | | | CHHModalities Performed: 2D, [...] Report electronically signed by: | | | [id number] Cole Chávez MD (10/06/2016, 10:21:24 AM)REPORT | | | EVYM=[id number] HOSP=PO REGION=A0 Final | | | cm [...] | | | |Report electronically signed by: [id number] Cole Chávez MD (10/06/2016, 10:21:24 | | |AM) | | |REPORT PBUV=[id number] HOSP=PO REGION=A0 | | | | | | | | | | | | Final | | + +---- + + + | Procedure Note | + + | Interface, Cardiology Results - 10/06/2016 10:21 AM [email or web address] | | [facility] [address] [place] [address] | | [place], [place] [address] Pt Name: PAULETTE | | BRITTANY BYRNES Study Date/Time 10/06/2016 / 8:59:07 AMMRN: [id number] | | Most recent prior: -Acc #: [id number] No. previous echos: 0DOB: | | 1960 55 years Heart Rate: 78 bpmHeight: 63.0 in Blood | | Pressure: 131/69 mm/HgWeight: 142.0 lb Gender: FBSA: | | 1.67 m2 Order ID: [id number] Cath Lab Nurse: Brandon Hwang MA, | | RDCSReferring Provider: Brittany Rojas Location: [facility] Performed: | | 2D, Color flow, Spectral [...] | indexed values Report electronically signed by: [id number] Cole Chávez MD | | (10/06/2016, 10:21:24 AM)REPORT YDUR=[id number] HOSP=PO REGION=A0 Final | |ventricular ejection fraction [...] | | | |Report electronically signed by: [id number] Cole Chávez MD (10/06/2016, 10:21:24 | |AM) | |REPORT ZQUP=[id number] HOSP=PO REGION=A0 | | | | | | | | Final | + + + + + + + | Performing | Address | City/State/Inscription House Health Centercode | Phone Number | | Organization | | | | + + + + + | [facility] DEPT OF | [address] | [place], [place] | | | CARDIOLOGY | [address] | [address] | | + + + + + [...] PAT OF | [address] | [place], [place] | | | CARDIOLOGY | [address] | [address] | | + + + + + ECG TRACING FOR STRESS ECHOCARDIOGRAM (10/06/2016 12:00 AM PDT) + + + | [...]
--- OUTSIDE RECORDS SUMMARY | ~2019-06-11 | XMS | Encounter Summary ---
Demographics + + + | Address | [address] | | | [place] [address] | + + + | Home Phone [...] Organization | [facility] | | | and [place] | + + + | Address | Unknown | + + + | Phone | Unavailable | + + + Support + + + + + | Name | Relationship | Address | Phone | + + + + + | Lamar Phillips | REZA | [place] [address] | | + + + + + Care Team Providers + +------+ + | Care Beef Farmer Name | Role | Phone | + +------+ + | Kristian Anderson DO | PCP | | + +------+ + Encounter Details +--------+ + + + + | Date | Type | Department | Care Team | Description | +--------+ + + + + | 01/10/ | Hospital | [facility] | Janel, | Canceled (Clinic | | 2017 | Encounter | MED CTR NUTRITION | Mike White MD [address] | and/or Provider | | | | SERVICES [address] [place] | Cancellation) | | | | [place], | [place] [address] | | | | | [place] [address] | [phone] | | | | | [phone] | | | | | | | [...]
--- OUTSIDE RECORDS SUMMARY | ~2019-06-11 | XMS | Encounter Summary ---
Demographics + + + | Address | [address] | | | [place] [address] | + + + | Home Phone [...] Team Providers + +------+ + | Care Natural Gas Shothole Driller Name | Role | Phone | [...] | | Center at [facility] [address] | [address] | Review | | | | [address] | [place], | | | | | Mailcode: [place] | [place] [address] | | | | | for Health and | [phone] | | | | | [facility] 2 | | | | | | [place], [place] | | | | | | [address] | | | | | | [phone] | | | +--------+ + + + [...] | | | | | [place], | | | | | | [place] [address] | | | | | | [phone] | | | | | | | | +--------+---------+ + + + documented as of this encounter Visit Diagnoses Not on filedocumented in this encounter"
--- OUTSIDE RECORDS SUMMARY | ~2019-06-11 | XMS | Encounter Summary ---
Demographics + + + | Address | [address] | | | [place] [address] | + + + | Home Phone [...] Team Providers + +------+ + | Care Farm Equipment Mechanic Name | Role | Phone [...] | | | | CT CHEST, | [place], [place] | Mailcode: | | | | | ABDOMEN AND | [address] | [address] [facility] | | | | | PELVIS W IV | Phone: | Hospital | | | | | [place] | [phone] | [place], [place] | | | | | CAT SCAN OF | Fax: | [address] | | | | | CHEST | [phone] | Phone: | | | | | [place] | | [phone] | | | | | CT | | Fax: | | | | | ABDOMEN&PELV | | [phone] | | | | | IS | [...] Mailcode: | | | | | [place] | [address] | [address] | | | | | MRI, PELVIS, | Phone: | [place] | | | | | COMBO | [phone] | Research | | | | | | Fax: | Center | | | | | | [phone] | [place], [place] | | | | | | | [address] | | | | | | | Phone: | | | | | | | [phone] | | | | | | | Fax: | | | | | | | [phone] | +--------+--------+ + + + + Reason [...] | 2017 | | Center at [facility] [address] | [address] | rectal protocol and | | | | [address] | [address] [place], | CT c/a/p after 6 | | | | Mailcode: [place] | [place] [address] | cycles of chemo) | | | | for Health and | [phone] | | | | | [facility] 2 | | | | | | [place], [place] | | | | | | [address] | | | | | | [phone] | | | +--------+ + + + [...] | | | | | | [place] [address] | | | | | | [phone] | | | | | | | [...]
--- OUTSIDE RECORDS SUMMARY | ~2019-06-11 | XMS | Encounter Summary ---
Demographics + + + | Address | [address] | | | [place] [address] | + + + | Home Phone [...] + | Organization | [facility] | | | and [place] | + + + | Address | Unknown | + + + | Phone | Unavailable | + + + Support + + + + + | Name | Relationship | Address | Phone | + + + + + | Lamar Phillips | REZA | [place] [address] | | + + + + + Care Team Providers + +------+ + | Care Inventory Control Coordinator Name | Role | Phone | [...] neoplasm of | Mike C, | [address] | | | | | rectum (HCC) | MD [address] | [place], | | | | | Procedures | [address] | [place] [address] | | | | | [place] | [place], | Phone: | | | | | [place] | [place] [address] | [phone] | | | | | INJECTION, | Phone: | Fax: | | | | | [address] [place] | [phone] | [phone] | | | | | NORMAL | Fax: | | | | | | SALINE | [phone] | | | | | | SOLUTION | | | | | | | INFUS, 500 | | | | | | | ML PA | | | | | | | NORMAL | | | | | | | SALINE | | | | | | | SOLUTION | | | | | | | INFUS, 250 | | | | | | | ML PA | | | | | | | STERILE | | | | | | | WATER/SALINE | | | | | | | , 10 ML PA | | | | | | | CHEMOTHER, | | | | | | | IV PUSH,EA | | | | | | | ADD DRUG PA | | | | | | | CHEMOTHER, | | | | | | | IV INFUSION, | | | | | | | 1 HR PA | | | | | | | CHEMOTHER, | | | | | | | IV INFUSION, | | | | | | | EA HR PA | | | | | | | CHEMOTHER,NO | | | | | | | N-HORMONE | | | | | | | ANTI-NEOPL, | | | | | | | SUB-Q/IM PA | | | | | | | CHEMOTHER | | | | | | | HORMON | | | | | | | ANTINEOPL | | | | | | | SUB-Q/IM PA | | | | | | | ONDANSETRON | | | | | | | HCL | | | | | | | INJECTION, 1 | | | | | | | MG PA | | | | | | | DEXAMETHASON | | | | | | | E SODIUM | | | | | | | PHOS, 1 MG | | | | | | | PA LORAZEPAM | | | | | | | INJECTION, | | | | | | | 2 MG PA | | | | | | | OXALIPLATIN, | | | | | | | .5 MG PA | | | | | | | LEUCOVORIN | | | | | | | CALCIUM | | | | | | | INJECTION, | | | | | | | 50 MG PA | | | | | | | DIPHENHYDRAM | | | | | | | INE HCL | | | | | | | INJECTIO, 50 | | | | | | | MG PA | | | | | | | METHYLPREDNI | | | | | | | SOLONE | | | | | | | INJECTION, | | | | | | | 125 MG PA | | | | | | | ADRENALIN | | | | | | | EPINEPHRINE | | | | | | | INJECT, .1 | | | | | | | MG PA | | | | | | | ALBUTEROL | | | | | | | COMP CON, 1 | | | | | | | MG PA | | | | | | | ALBUTEROL | | | | | | | NON-COMP | | | | | | | CON, 1 MG | | | | | | | PA | | | | | | | INJECTION, | | | | | | | FAMOTIDINE, | | | | | | | 20 MG | | | +--------+--------+ + + + + Encounter Details +--------+ + + + + | Date | Type | Department | Care Team | Description | +--------+ + + + + | 03/21/ | Hospital | [facility] | [facility], | Rectal cancer (HCC); | | 2017 | Encounter | MED CTR CHEMO | Mike White MD [address] | Lichen sclerosus | | | | INFUSION [address] | [address] [place] | | | | | [place], | [place] [address] | | | | | [place] [address] | [phone] | | | | | [phone] | | | +--------+ + + + [...] + | metroNIDAZOLE | Take 1 tablet with | | 0 | 03/02/20 | | | (FLAGYL) 500 MG | (8oz) glass of clear | | | 17 | 7 | | tablet | liquid at 1 pm, 2 | | | | | | | pm and 11 pm the day | | | | | | | before surgery. | | | | | + + + +---------+ + + | metroNIDAZOLE | Take by mouth. | | 0 | | | | (FLAGYL) 500 MG | | | | | 7 | | tablet | | [...] + + + +---------+ + + | tolterodine | Take 1 tablet by | 60 | 0 | 02/24/20 | | | (DETROL) 2 MG tablet | mouth 2 times daily. | tablet | | 17 | 7 | + + + +---------+ + + documented as of this encounter Progress Notes Jada Jauregui RN - 03/21/2017 1:42 PM PDTPatient discharged in satisfactory conditi on. Discharged [...] + | CBC WITH | STAT | 03/21/2017 | Rectal cancer | Results for this | | DIFFERENTIAL | | 9:44 AM | (HCC) | procedure are in the | | | | PDT | | results section. | + +--------+ + + + | LACTATE | STAT | 03/21/2017 | Rectal cancer | Results for this | | DEHYDROGENASE | | 9:44 AM | (HCC) | procedure are in the | | | | PDT | | results section. | + +--------+ + + + | CEA | STAT | 03/21/2017 | Rectal cancer | Results for this | | | | 9:44 AM | (HCC) | procedure are in the | | | | PDT | | results section. | + +--------+ + + + | COMPREHENSIVE | STAT | 03/21/2017 | Rectal cancer | Results for this | | METABOLIC PANEL | | 9:44 AM | (HCC) | procedure are in the | | | | PDT | | results section. | + +--------+ + + + documented in this encounter Results CBC with Differential (03/21/2017 9:44 AM PDT) + + + + + + | Component | Value | Ref Range | Performed | Pathologist | | | | | At | Signature | + + + + + + | WBC | 4.5 | 4.0 - 11.0 K/uL | [facility] | | | [facility] | [facility] | | | | | [facility] - | | | | | | LABORATORY | | + + + + + + | RBC | 4.00 | 3.70 - 5.20 | [facility] | | | | | M/uL | [facility] | | | | | | [facility] | | | | | | C[facility] - | | | | | | LABORATORY | | + + + + + + | Hemoglobin | 11.6 | 11.5 - 16.0 | [facility] | | | | | g/dL | [facility] | | | | | | [facility] | | | | | | C[facility] - | | | | | | LABORATORY | | + + + + + + | Hematocrit | 35.5 | 34.0 - 47.0 % | [facility] | | | | | | [facility] | | | | | | [facility] | | | | | | C[facility] - | | | | | | LABORATORY | | + + + + + + | MCV | 88.8 | 83.0 - 101.0 fL | [facility] | | | | | | [facility] | | | | | | [facility] | | | | | | [facility] - | | | | | | LABORATORY | | + + + + + + | MCH | 28.9 | 28.0 - 35.0 pg | [facility] [...] + + + + | RDW-CV | 18.9 (H) | <15.0 % | [facility] | | | | | [facility] | [facility] | | [facility] | [facility] | | | | | | CENTER - | | | | | | LABORATORY | | + + + + + + | Platelet | 284 | 140 - 440 K/uL | [facility] [...] + + + + | % | 71.7 | 45.0 - 82.0 % | [facility] | | | Neutrophils | | | [facility] | | | | | | MEDICAL | | | | | | CENTER - | | | | | | LABORATORY | | + + + + + + | % | 15.1 (L) | 20.0 - 45.0 % | [...] + + + + | % | 3.7 | 0.0 - 5.0 % | [facility] [...] + + + + | Absolute | 3.20 | 1.80 - 8.50 | [facility] | [...] [address] | [place] | [phone] | | [facility] | | [address] | | | - LABORATORY | | | | + + + + + Comprehensive Metabolic Panel (03/21/2017 9:44 AM PDT) + + + + + [...] + + + + | Cl | 108 | 98 - 109 mmol/L | [facility] [...] 0.55 (L) | 0.60 - 1.30 | [facility] [...] mL/min/1.73m2 | [facility] | | | [place] | RATE,ESTIMATED | | MEDICAL | | | | mL/min/1.57a6Vglp than | | CENTER - | | [...] + + + + | Alkaline | 75Comment: This is an | 40 - 110 [...] + + + + | BUN/Creatin | 14.5 | | [facility] | | | ine [...] [address] | [place] | [phone] | | [facility] | | [address] | | | - LABORATORY | | | | + + + + + CEA (03/21/2017 9:44 AM PDT) + +-------+ + + + | Component | Value | Ref Range | Performed | Pathologist | | | | | At | Signature | + +-------+ + + + | CEA | 1.9 | 0.0 - 10.0 | [facility] | [...] [address] | [place] | [phone] | | [facility] | | [address] | | | - LABORATORY | | | | + + + + + Lactate Dehydrogenase (03/21/2017 9:44 AM PDT) + +-------+ + + + [...] + + | [facility]. | [address] | [place] | [phone] | | [facility] | | [address] | | | - LABORATORY | | [...] 4,250 mg in sodium | Given | 03/21/20 | 4,250 mg | 2 mL/hr | | | chloride 0.9% 9 mL CADD PUMP | | 17 1:37 | | | | | infusion 4,250 [...] | | | | First dose on Tue03/21/17 at | | | | | | | 1345, OUTPATIENT Chemotherapy: | | | | | [...] mg in dextrose | New Bag | 03/21/20 | 350 mg | 133.8 | | | 5% 250 mL infusion 350 mg | | 17 11:25 | | mL/hr | | | (rounded from 354 mg = 200 mg/m2 | | AM PDT | | | | | | | | | | | | 1.77 m2 Treatment plan recorded | | | | | | | BSA), Intravenous, Administer | | | | | | | over 2 Hours, ONCE, Tue03/21/17 | | | | | | | at 1145, For 1 dose, Administer | | | | | | | via y-site with oxaliplatin, | | | | | | + +---------+ +--------+--------+---+ +---+---+ | | | +---+---+ + +---------+ +---+--------+---+ | ondansetron (ZOFRAN) 8 mg, | New Bag | 03/21/20 | | 217.6 | | | dexamethasone (DECADRON) 4 mg in | | 17 11:06 | | mL/hr | | | sodium chloride 0.9% 50 mL IVPB | | AM PDT | | | | | Intravenous, Administer over 15 | | | | | | | Minutes, ONCE, Tue03/21/17 at | | | | | | | 1115, For 1 dose, Administer 30 | | | | | | | minutes prior to chemotherapy., | | | | | | + +---------+ +---+--------+---+ +---+---+ | | | +---+---+ + +---------+ + +-------+---+ | oxaliplatin (ELOXATIN) 142.5 mg | New Bag | 03/21/20 | 142.5 mg | 125 | | | in dextrose 5% 221.5 mL infusion | | 17 11:26 | | mL/hr | | | 142.5 mg (rounded from 141.6 mg | | AM PDT | | | | | = 80 mg/m2 | | | | | | | 1.77 m2 Treatment plan recorded | | | | | | | BSA), Intravenous, Administer | | | | | | | over 2 Hours, ONCE, 03/21/17 | | | | | | | at 1145, For 1 dose, | | | | [...]
--- OUTSIDE RECORDS SUMMARY | ~2019-06-11 | XMS | Encounter Summary ---
Demographics + + + | Address | [address] | | | [place] [address] | + + + | Home Phone [...] Team Providers + +------+ + | Care Program Director Group Work Name | Role | Phone | + +------+ + | Kristian Anderson DO | PCP | | + +------+ + Encounter Details +--------+ + + + + | Date | Type | Department | Care Team | Description | +--------+ + + + + | 01/03/ | Document-Sc | Health Information | Unknown . | | | 2017 | anned | Services [address] | | | | | | [address] | | | | | | Mailcode: OP17A | | | | | | [facility] | | | | | | [place], [place] | | | | | | [address] | | | | | | [phone] | | | +--------+ + + + [...] | | | | | Amita Hines [place], | | | | | | [place] [address] | | | | | | [phone] | | | | | | | [...]
--- OUTSIDE RECORDS SUMMARY | ~2019-06-11 | XMS | Encounter Summary ---
Demographics + + + | Address | [address] | | | [place] [address] | + + + | Home Phone [...] Team Providers + +------+ + | Care Peanut Picker Name | Role | Phone | + +------+ + | Kristian Anderson DO | PCP | | + +------+ + Encounter Details +--------+ + + + + | Date | Type | Department | Care Team | Description | +--------+ + + + + | 07/19/ | Regional Transportation Manager | Digestive Health | Trinidad Garcia, | | | 2016 | | Center at [facility] [address] | AGACNP [address] | | | | | [address] | [place] [facility] [place] | | | | | Mailcode: [place] | [address] | | | | | for Health and | | | | | | [facility] 2 | | | | | | [facility] [place] | | | | | | [address] | | | | | | [phone] | | | +--------+ + + + [...] | | | | Amita H[place], | | | | | | [place] [address] | | | | | | [phone] | | | | | | | | +--------+---------+ + + + documented as of this encounter Visit Diagnoses Not on filedocumented in this encounter"
--- OUTSIDE RECORDS SUMMARY | ~2019-06-11 | XMS | Encounter Summary ---
Demographics + + + | Address | [address] | | | [place] [address] | + + + | Home Phone [...] Providers + +------+ + | Care Land Acquisition Analyst Name | Role | Phone | [...] | | | | [facility] | [place], [place] | | | | | [place] [address] | [address] | | | | | [place], [place] | | | | | | [address] | | | | | | [phone] | | | +--------+ + + + [...] | | | | | Amita H[place], | | | | | | [place] [address] | | | | | | [phone] | | | | | | | | +--------+---------+ + + + documented as of this encounter Visit Diagnoses Not on filedocumented in this encounter"
--- OUTSIDE RECORDS SUMMARY | ~2019-06-11 | XMS | Encounter Summary ---
Demographics + + + | Address | [address] | | | [place] [address] | + + + | Home Phone [...] Team Providers + +------+ + | Care Foreman/Pile Driving And Erection Name | Role | Phone | + [...] | 2017 | Encounter | Center at [facility] [address] | [address] | | | | | [address] | Amita Hines [place], | | | | | Mailcode: [place] | [place] [address] | | | | | for Health and | [phone] | | | | | [facility] 2 | | | | | | [place], [place] | | | | | | [address] | | | | | | [phone] | | | +--------+ + + + [...] | | | | | [address] [place], | | | | | | [place] [address] | | | | | | [phone] | | | | | | | | +--------+---------+ + + + documented as of this encounter Visit Diagnoses Not on filedocumented in this encounter"
--- OUTSIDE RECORDS SUMMARY | ~2019-06-11 | XMS | Encounter Summary ---
Demographics + + + | Address | [address] | | | [place] [address] | + + + | Home Phone [...] Organization | [facility] | | | and [place] | + + + | Address | Unknown | + + + | Phone | Unavailable | + + + Support + + + + + | Name | Relationship | Address | Phone | + + + + + | Lamar Phillips | REZA | [place] [address] | | + + + + + Care Team Providers + +------+ + | Care Spiral Binder Name | Role | Phone | + +------+ + | Kristian Anderson DO | PCP | | + +------+ + Reason for Visit +--------+ + | Reason | Comments | +--------+ + | Other | | +--------+ + Encounter Details +--------+ + + + + | Date | Type | Department | Care Team | Description | +--------+ + + + + | 02/23/ | Telephone | [facility] | Joel Alfaro DO | Other | | 2017 | | MED CTR MEDICAL | [address] | | | | | [facility] CL[facility] [address] | [place], [place] | | | | | [place] | [address] | | | | | [place] [address] | | | | | | [phone] | | | +--------+ + + + [...]
--- OUTSIDE RECORDS SUMMARY | ~2019-06-11 | XMS | Encounter Summary ---
Demographics + + + | Address | [address] | | | [place] [address] | + + + | Home Phone | | + + + | Preferred Language | Unknown | + + + | Marital Status | | + + + | Latter Day Affiliation | Unknown | + + + | Race | Unknown | + + + | Ethnic Group | Unknown | + + + Author + + + | Author | [facility] | | | and [place] | + + + | Organization | [facility] | | | and [place] | + + + | Address | Unknown | + + + | Phone | Unavailable | + + + Support + + + + + | Name | Relationship | Address | Phone | + + + + + | Lamar Phillips | REZA | [place] [address] | | + + + + + Care Team Providers + +------+ + | Care Pick Pulling Machine Tender Name | Role | Phone | + +------+ + | Kristian Anderson DO | PCP | | + +------+ + Encounter Details +--------+ + + + + | Date | Type | Department | Care Team | Description | +--------+ + + + + | 10/31/ | Hospital | [facility] | Janel, | Rectal cancer (HCC) | | 2018 | Encounter | MED CTR CHEMO | Mike White MD [address] | (Primary Dx) | | | | INFUSION [address] | [address] [place] | | | | | [place], | [place] [address] | | | | | [place] [address] | [phone] | | | | | [phone] | | | +--------+ + + + [...] + | [facility] | [address] | [place] | [phone] | | [facility] | | [address] | | | - LABORATORY | | [...] mL/min/1.73m2 | [facility] | | | [place] | RATE,ESTIMATED | | MEDICAL | | | | mL/min/1.52j1Efqi than | | CENTER - | | [...] + | [facility] | [address] | [place] | [phone] | | [facility] | | [address] | | | - LABORATORY | | [...] [address] | [place] | [phone] | | [facility] | | [address] | | | - LABORATORY | | [...] | [address] | [place] | [phone] | | [facility] | | [address] | | | - LABORATORY | | [...]
--- OUTSIDE RECORDS SUMMARY | ~2019-06-11 | XMS | Encounter Summary ---
Demographics + + + | Address | [address] | | | [place] [address] | + + + | Home Phone [...] Team Providers + +------+ + | Care Greenskeeper Laborer Name | Role | Phone | + [...] | | 2017 | | Center at [facility] [address] | [address] | results | | | | [address] | Amita Hines [place], | | | | | Mailcode: [place] | [place] [address] | | | | | for Health and | [phone] | | | | | [facility] 2 | | | | | | [place], [place] | | | | | | [address] | | | | | | [phone] | | | +--------+ + + + [...] | | | | | Amita Hines [place], | | | | | | [place] [address] | | | | | | [phone] | | | | | | | | +--------+---------+ + + + documented as of this encounter Visit Diagnoses Not on filedocumented in this encounter"
--- OUTSIDE RECORDS SUMMARY | ~2019-06-11 | XMS | Encounter Summary ---
Demographics + + + | Address | [address] | | | [place] [address] | + + + | Home Phone [...] | Organization | [facility] | | | and [place] | + + + | Address | Unknown | + + + | Phone | Unavailable | + + + Support + + + + + | Name | Relationship | Address | Phone | + + + + + | Lamar Phillips | REZA | [place] [address] | | + + + + + Care Team Providers + +------+ + | Care Furnace Packer Name | Role | Phone | [...] [place] | | | | | [address] [place] | [place] [address] | | | | | [place] [address] | [phone] | | | | | [phone] | | | +--------+ + + + [...]
--- OUTSIDE RECORDS SUMMARY | ~2019-06-11 | XMS | Encounter Summary ---
Demographics + + + | Address | [address] | | | [place] [address] | + + + | Home Phone | | + + + | Preferred Language | Unknown | + + + | Marital Status | | + + + | Jainism Affiliation | Unknown | + + + | Race | Unknown | + + + | Ethnic Group | Unknown | + + + Author + + + | Author | [facility] | | | and [place] | + + + | Organization | [facility] | | | and [place] | + + + | Address | Unknown | + + + | Phone | Unavailable | + + + Support + + + + + | Name | Relationship | Address | Phone | + + + + + | Lamar Phillips | REZA | [place] [address] | | + + + + + Care Team Providers + +------+ + | Care Reel Stripper Name | Role | Phone | + [...] neoplasm of | Mike C, | [address] | | | | | rectum (HCC) | MD [address] | [place], | | | | | Procedures | [address] | [place] [address] | | | | | MD | [place], | Phone: | | | | | [place] | [place] [address] | [phone] | | | | | INJECTION, | Phone: | Fax: | | | | | [address] | [phone] | [phone] | | | | | O[place]ANSETRON | Fax: | | | | | | HCL | [phone] | | | | | | INJECTION, [...] | | | | | 1 MG MD | | | | | [...] | | | | | 12.5 MG MD | | | | | [...] + + | 12/13/ | Hospital | [facility] | Janel, | Rectal cancer (HCC) | | 2017 | Encounter | MED CTR CHEMO | Mike White MD [address] | | | | | INFUSION [address] | [address] [facility] | | | | | [place], | [place] [address] | | | | | [place] [address] | [phone] | | | | | [phone] | | | +--------+ + + + [...] + | [facility] | [address] | [place] | [phone] | | [facility] | | [address] | | | - LABORATORY | | [...] | | | FILTRATION | mL/min/1.73m2 | [facility] | | | [place] | RATE,ESTIMATED | | MEDICAL | | | | mL/min/1.26y0Hzbh than | | CENTER - | | [...] | | | | | mg/dL | [facility] | | | | | | MEDICAL | | | | | | CENTER - | | | | | | LABORATORY | | + + + + + + | Albumin | 3.1 (L) | 3.2 - 5.0 g/dL | [facility] | | | | | | [facility] | | | | | | MEDICAL [...] [address] | [place] | [phone] | | [facility] | | [address] | | | - LABORATORY | | [...] ST. | [address] | [place], [place] | [phone] | | [facility] | | [address] | | | - LABORATORY | | [...]
--- OUTSIDE RECORDS SUMMARY | ~2019-06-11 | XMS | Encounter Summary ---
Demographics + + + | Address | [address] | | | [place] [address] | + + + | Home Phone | | + + + | Preferred Language | Unknown | + + + | Marital Status | | + + + | Sabianism Affiliation | Unknown | + + + | Race | Unknown | + + + | Ethnic Group | Unknown | + + + Author + + + | Author | [facility] | | | and [place] | + + + | Organization | [facility] | | | and [place] | + + + | Address | Unknown | + + + | Phone | Unavailable | + + + Support + + + + + | Name | Relationship | Address | Phone | + + + + + | Lamar Phillips | REZA | [place] [address] | | + + + + + Care Team Providers + +------+ + | Care Production Aide Name | Role | Phone | [...] Other | | 2017 | | [facility] | Mike White MD [address] | | | | [facility] [address] [place] | | | | | [address] [place] | [place] [address] | | | | | [place] [address] | [phone] | | | | | [phone] | | | +--------+ + + + [...]
--- OUTSIDE RECORDS SUMMARY | ~2019-06-11 | XMS | Encounter Summary ---
Demographics + + + | Address | [address] | | | [place] [address] | + + + | Home Phone [...] Providers + +------+ + | Care Oil Producer Name | Role | Phone | + [...] 2019 | | Center at [facility] [address] | [address] | Review | | | | [address] | [place], | | | | | Mailcode: [place] | [place] [address] | | | | | for [facility] and | [phone] | | | | | [facility] [address] | | | | | | [place], [place] | | | | | | [address] | | | | | | [phone] | | | +--------+ + + + [...] | | | | [place], | | | | | | [place] [address] | | | | | | [phone] | | | | | | | | +--------+---------+ + + + documented as of this encounter Visit Diagnoses Not on filedocumented in this encounter"
--- OUTSIDE RECORDS SUMMARY | ~2019-06-11 | XMS | Encounter Summary ---
Demographics + + + | Address | [address] | | | [place] [address] | + + + | Home Phone [...] Team Providers + +------+ + | Care Hydraulic Plumber Helper Name | Role | Phone | [...] | | 2018 | | Center at [facility] [address] | [address] | Review | | | | [address] | [place], | | | | | Mailcode: [place] | [place] [address] | | | | | for Health and | [phone] | | | | | [facility] [address] | | | | | | [place], [place] | | | | | | [address] | | | | | | [phone] | | | +--------+ + + + [...] | | | | | [place], | | | | | | [place] [address] | | | | | | [phone] | | | | | | | | +--------+---------+ + + + documented as of this encounter Visit Diagnoses Not on filedocumented in this encounter"
--- OUTSIDE RECORDS SUMMARY | ~2019-06-11 | XMS | Encounter Summary ---
Demographics + + + | Address | [address] | | | [place] [address] | + + + | Home Phone [...] + + + | Author | [facility] | | | and [place] | + + + | Organization | [facility] | | | and [place] | + + + | Address | Unknown | + + + | Phone | Unavailable | + + + Support + + + + + | Name | Relationship | Address | Phone | + + + + + | Lamar Phillips | REZA | [place] [address] | | + + + + + Care Team Providers + +------+ + | Care Health Sciences Department Chair Name | Role | Phone | [...] Other | | 2017 | | MED [facility] | Mike White MD [address] | | | | | ONCOLOGY CLINIC [address] | [address] [place] | | | | | [address] [place] | [place] [address] | | | | | [place] [address] | [phone] | | | | | [phone] | | | +--------+ + + + [...]
--- OUTSIDE RECORDS SUMMARY | ~2019-06-11 | XMS | Encounter Summary ---
Demographics + + + | Address | [address] | | | [place] [address] | + + + | Home Phone [...] | Organization | [facility] | | | and [place] | + + + | Address | Unknown | + + + | Phone | Unavailable | + + + Support + + + + + | Name | Relationship | Address | Phone | + + + + + | Lamar Phillips | REZA | [place] [address] | | + + + + + Care Team Providers + +------+ + | Care Bracelet And Brooch Maker Name | Role | Phone | + +------+ + | Kristian Anderson DO | PCP | | + +------+ + Encounter Details +--------+ + + + + | Date | Type | Department | Care Team | Description | +--------+ + + + + | 01/27/ | Hospital | [facility] | Janel, | | | 2017 | Encounter | MED CTR RADIATION | Mike White MD [address] | | | | | ONCOLOGY [address] | [address] [place] | | | | | [place], | [place] [address] | | | | | [place] [address] | [phone] | | | | | [phone] | | | +--------+ + + + [...] as of this encounter Progress Notes Joel Alfaro, - 02/17/2017 11:[address] [facility] On Treatment Note Name: Jenn Parada ID: [id number] Date of Service:02/17/2017 ICD-9 and Description: C20 - Malignant neoplasm of rectum, Diagnosed 09/02/2016 (Active) Stage IIC, T4b, N0, M0 Radiation Technical Factors: --Planned Dose: Pelvis (Plan ID - Pelvis) - Rx Dose 4,500cGy (Status - Treatment Approved) - Pelvis (Plan ID - Pelvis Bst) - Rx Dose 540cGy (Status - Treatment Approved) - --Current Dose: Course: Pelvis Treatment Site: Pelvis Energy: 18X Dose/Fx (cGy): 180 #Fx: Dose Correction (cGy): 0 Total Dose (cGy): 4,500 Start Date: 01/10/2017 End Date: 02/14/2017 Elapsed Days: 35 Course: Pelvis Treatment Site: Pelvis Bst Energy: 18X Dose/Fx (cGy): 180 #Fx: Dose Correction (cGy): 0 Total Dose (cGy): 540 Start Date: 02/15/2017 End Date: 02/17/2017 Elapsed Days: 2 Imaging Review: Images were reviewed this week and results of the review have been recorded in ARIA. Cor rections were applied as necessary. Clinical Data Vital Signs: Performed on 02/17/2017 9:30 AM Weight - 70.1 kg - , Temperature - 35.9 C (LOW) - , Pulse - 94 / min - , Respiration - 16 / min - , Systolic - 129 mm(hg) - , Diastolic - 74 mm(hg) - , O2 Sat - 98 % - , Pain - 0 - and BP - 129/ 74 - ;. Performance Scale: 80% - Normal [...] Weight Loss - - None Physician Assessment: 11:16:00 - On Treatment Progress Note - Joel Alfaro D.O. - Esteban Peguero completed her combin ed modality treatment for locally advanced rectal cancer today. She did have symptoms of d ry desquamation and patchy moist desquamation within the treated love with adequate skin care noted. He currently has mild dysuria with frequency as well as increased mucus discha rge from her rectal stump and irritation associated. She is performing sitz baths and aggr essive skin care. She states that cranberry juice does help and she was encouraged to call our clinic if it does not appear to provide lasting relief favoring Ditropan to relieve he r urinary symptoms. Additionally, Janel has initiated antibiotic therapy resulting i n loose ostomy production which she is otherwise tolerating well. She was encouraged to co ntact our clinic if she should have any difficulty over the next few weeks prior to transfe rring care to [facility] for scheduled exenteration. Approved by: Joel Alfaro D.O. 02/17/2017 11:19:08 AM Page 1 of 2 CSN: [id number] signed by Joel Alfaro DO at 02/17/2017 11:19 AM Florence Cortez MD - 02/10/2017 12:[address] [facility] Weekly On Treatment Note Name: Jenn Parada ID: [id number] Date of Service:02/10/2017 ICD-9 and Description: C20 - Malignant neoplasm of rectum, Diagnosed 09/02/2016 (Active) Stage IIC, T4b, N0, M0 Radiation Technical Factors: --Planned Dose: Pelvis (Plan ID - Pelvis) - Rx Dose 4,500cGy (Status - Treatment Approved) - Pelvis (Plan ID - Pelvis Bst) - Rx Dose 540cGy (Status - Treatment Approved) - --Current Dose: Course: Pelvis Treatment Site: Pelvis Energy: 18X Dose/Fx (cGy): 180 #Fx: Dose Correction (cGy): 0 Total Dose (cGy): 4,140 Start Date: 01/10/2017 End Date: 02/10/2017 Elapsed Days: 30 Course: Pelvis Treatment Site: Pelvis Bst Energy: 18X Dose/Fx (cGy): 180 #Fx: Dose Correction (cGy): 0 Total Dose (cGy): 0 Imaging Review: Images were reviewed this week and results of the review have been recorded in ARIA. Cor rections were applied as necessary. Clinical Data Vital Signs: Performed on 02/10/2017 11:00 AM Weight - 68.6 kg - , Temperature - 36.2 C (LOW) - , Pulse - 83 / min - , Respiration - 16 / min - , Systolic - 134 mm(hg) - , Diastolic - 63 mm(hg) (LOW) - , O2 Sat - 99 % - , Pain - 3 - and BP - 134/ 63 - ;. Performance Scale: 80% - Normal activity, but requires effort. (Karnofsky) Pain Assessment: Are you having pain? - No Toxicities: The following toxicities were assessed as a 1: Fatigue (lethar/malai/astheni) - - Increased fatigue over baseline, but not altering rolando l activities Weight Loss - - None Physician Assessment: 00:00:00 - On Treatment Progress Note - Florence Reese M.D - Ms. Parada is near completion of chemoradiotherapy. She continues to do well. Has colostomy and stool consistency stable. Reports minimal skin irritation. No new concerns this week. O: Weight stable. Labs: 02/07/2017 09:20 WBC: 9.9 RBC:: 3.93 Hgb: 11.3 (L) Hct, Final: 34.3 MCV: 87.3 MCH: 28.7 MCHC: 32.9 RDW-CV: 22.2 (H) Platelet Count: 370 MPV: 6.3 Absolute Neutrophils: 8.40 Absolute Lymphocytes: 0.40 (L) Absolute Monocytes: 0.50 Absolute Eosinophils: 0.50 (H) Absolute Basophils: 0.00 % Neutrophils: 85.1 (H) % Lymphocytes: 4.4 (L) % Monocytes: 5.4 % Eosinophils: 4.8 % Basophils: 0.3 NA: 137 K: 3.9 Chloride: 106 Carbon dioxide: 24 ANION GAP: 7 GLUCOSE: 147 (H) BUN: 11 Creatinine: 0.60 BUN/CREA: 18.3 ALBUMIN: 3.1 (L) Albumin/Globulin ratio: 1.0 Total protein: 6.2 EGFR IF NOT : >60 Calcium: 8.7 ALK PHOS: 114 (H) ALT (SGPT) (REF): 28 AST (SGOT) (REF): 30 LDH TOTAL: 153 BILIRUBIN TOTAL: 0.4 GLOBULIN: 3.1 Exam: Alert and oriented. NAD Gluteal cleft and perianal skin intact with mild erythema. A/P: -Tolerating chemoradiotherapy very well. -Continue treatment as planned. - Skin care with emollient or barrier cream - Imodium if needed for loosening stools. Approved by: Florence Reese M.D 03/05/2017 8:17:28 AM Page 1 of 3 CSN: [id number] signed by Florence Reese MD at 03/05/2017 8:17 AM Joel Tyson DO - 02/03/2017 12:[address] On Treatment Note Name: Jenn Parada ID: [id number] Date of Service:02/03/2017 ICD-9 and Description: C20 - Malignant neoplasm of rectum, Diagnosed 09/02/2016 (Active) Stage IIC, T4b, N0, M0 Radiation Technical Factors: --Planned Dose: Pelvis (Plan ID - Pelvis) - Rx Dose 4,500cGy (Status - Treatment Approved) - --Current Dose: Course: Pelvis Treatment Site: Pelvis Energy: 18X Dose/Fx (cGy): 180 #Fx: Dose Correction (cGy): 0 Total Dose (cGy): 3,240 Start Date: 01/10/2017 End Date: 02/03/2017 Elapsed Days: 24 Imaging Review: Images were reviewed this week and results of the review have been recorded in ARIA. Cor rections were applied as necessary. Setup was verified clinically on the treatment machine. Corrections were applied as kieran deutsch. Clinical Data Vital Signs: Performance Scale: 80% - Normal activity, but [...] and 10= worst pain - 1 Toxicities: PE ConstitutionalNo evidence of impaired alertness, inadequate appearance, premature or ad vanced chronologic age, uncooperativeness, altered mood and affect and disorientation. The following toxicities were assessed as a 1: Fatigue (lethar/malai/astheni) - - Increased fatigue over baseline, but not altering rolando l activities Weight Loss - - None Physician Assessment: 12:48:00 - On Treatment Progress Note - Joel Alfaro D.O. - Overall, she is tolerating dylon atment well. Skin care reviewed. Toxicities reviewed. Emollient barrier cream recommended likely triple paste OTC. She has grade 2 dermatitis within the gluteal fold and labial lindsey rder. Skin otherwise intact. She does have complaints of dysuria which is accompanied by a mucousy bowel movement likely caused by secondary irritation. Her pain dissipates with b arrier use. We will continue to monitor she currently has 10 treatments to complete her co urse of 28 fractions. She will continue treatment as planned. Approved by: Joel Alfaro D.O. 02/03/2017 12:50:06 PM Page 1 of 2 CSN: [id number] signed by Joel Alfaro DO at 02/03/2017 12:50 PM Nichole Daigle DO - 01/27/2017 5:[address] [facility] On Treatment Note Name: Jenn Parada ID: [id number] Date of Service:01/27/2017 ICD-9 and Description: C20 - Malignant neoplasm of rectum, Diagnosed 09/02/2016 (Active) Stage IIC, T4b, N0, M0 Radiation Technical Factors: --Planned Dose: Pelvis (Plan ID - Pelvis) - Rx Dose 4,500cGy (Status - Treatment Approved) - --Current Dose: Course: Pelvis Treatment Site: Pelvis Energy: 18X Dose/Fx (cGy): 180 #Fx: Dose Correction (cGy): 0 Total Dose (cGy): 2,340 Start Date: 01/10/2017 End Date: 01/27/2017 Elapsed Days: 17 Imaging Review: Images were reviewed this week and results of the review have been recorded in ARIA. Cor rections were applied as necessary. Clinical Data Vital Signs: Performed on 01/27/2017 10:55 AM Weight - 68.6 kg - , Temperature - 36.0 C (LOW) - , Pulse - 74 / min - , Respiration - 16 / min - , Systolic - 139 mm(hg) - , Diastolic - 78 mm(hg) - , O2 Sat - 99 % - , Pain - 0 - and BP - 139/ 78 - ;. Performance Scale: 80% - Normal [...] Weight Loss - - None Physician Assessment: 17:12:00 - On Treatment Progress Note - Joel Alfaro D.O. - Overall, she is tolerating dylon atment well. Diflucan initiated this week due to yeast infection noted over the holiday by the patient. Skin is intact. Skin care was reviewed. Toxicities reviewed. She will con tinue concurrent chemoradiotherapy as planned. Approved by: Joel Alfaro D.O. 01/27/2017 5:14:07 PM Page 1 of 2 CSN: [id number] signed by Joel Alfaro DO at 01/27/2017 5:14 PM PDTdocumen pat in this encounter Plan of Treatment Not on filedocumented as of this encounter Visit Diagnoses Not on filedocumented in this encounter"
--- OUTSIDE RECORDS SUMMARY | ~2019-06-11 | XMS | Encounter Summary ---
Demographics + + + | Address | [address] | | | [place] [address] | + + + | Home Phone [...] Team Providers + +------+ + | Care Assisted Living Care Manager Name | Role | Phone | + +------+ + | Justin Kristian | PCP | | + +------+ + Encounter Details +--------+------+ + + + | Date | Type | Department | Care Team | Description | +--------+------+ + + + | 02/20/ | Lab | Laboratory at [facility] | | Buzz ([facility]) | | 2018 | | [address] | | | | | | [place], [place] | | | | | | [address] | | | | | | [phone] | | | +--------+------+ + + + [...] | | | | | [place]zy [place], | | | | | | [place] [address] | | | | | | [phone] | | | | | | | [...] | + + + + + | [facility] | [address] | [place] [address] | | | SERVICES, CORE | [address] | | | + + + + + documented in this encounter Visit Diagnoses + + | Diagnosis | + + | CA of rectum (HCC) Malignant neoplasm of rectum | + + documented in this encounter"
--- OUTSIDE RECORDS SUMMARY | ~2019-06-11 | XMS | Encounter Summary ---
Demographics + + + | Address | [address] | | | [place] [address] | + + + | Home Phone [...] Team Providers + +------+ + | Care Puppet Developer Name | Role | Phone | [...] | | | | CT ABDOMEN | [place], [place] | Mailcode: | | | | | AND PELVIS | [address] | [address] [facility] | | | | | W IV | Phone: | Hospital | | | | | [place] | [phone] | [place], [place] | | | | | [place] | Fax: | [address] | | | | | ABDOMEN&PELV | [phone] | Phone: | | | | | IS | | [phone] | | | | | W/CONTRAST | | Fax: | | | | | | | [phone] | +--------+--------+ + + + + Reason [...] | | | | CT ABDOMEN | [place], [place] | Mailcode: | | | | | AND PELVIS | [address] | [address] [facility] | | | | | W IV | Phone: | Hospital | | | | | [place] | [phone] | [facility] [place] | | | | | [place] | Fax: | [address] | | | | | ABDOMEN&PELV | [phone] | Phone: | | | | | IS | | [phone] | | | | | W/CONTRAST | | Fax: | | | | | | | [phone] | +--------+--------+ + + + + Encounter Details +--------+ + + + + | Date | Type | Department | Care Team | Description | +--------+ + + + + | 10/05/ | Hospital | Radiology/Imaging | Ailyn Wolff MD | | | 2017 | Encounter | Lab at [facility] [address] | [address] | | | | | [place] Mailcode: | [place], | | | | | [facility] | [place] [address] | | | | | Health and Healing, | [phone] | | | | | [address] | | | | | | [place], [place] | | | | | | [address] | | | | | | [phone] | | | +--------+ + + + [...] | | | | | | [place] [address] | | | | | | [phone] | | | | | | | [...]
--- OUTSIDE RECORDS SUMMARY | ~2019-06-11 | XMS | Encounter Summary ---
Demographics + + + | Address | [address] | | | [place] [address] | + + + | Home Phone | | + + + | Preferred Language | Unknown | + + + | Marital Status | | + + + | Methodist Affiliation | Unknown | + + + | Race | Unknown | + + + | Ethnic Group | Unknown | + + + Author + + + | Author | [facility] | | | and [place] | + + + | Organization | [facility] | | | and [place] | + + + | Address | Unknown | + + + | Phone | Unavailable | + + + Support + + + + + | Name | Relationship | Address | Phone | + + + + + | Lamar Phillips | REZA | [place] [address] | | + + + + + Care Team Providers + +------+ + | Care Store Keeper Name | Role | Phone | [...] neoplasm of | Mike C, | [place] | | | | | rectum (HCC) | MD [address] | [place], | | | | | Procedures | [address] | [place] [address] | | | | | [place] | [place], | Phone: | | | | | [place] | [place] [address] | [phone] | | | | | INJECTION, | Phone: | Fax: | | | | | [address] | [phone] | [phone] | | | | | NORMAL | Fax: | | | | | | SALINE | [phone] | | | | | | SOLUTION | | | | | | | INFUS, 500 | | | | | | | [address] [place] | | | | | | | NORMAL | | | | | | | SALINE | | | | | | | SOLUTION | | | | | | | INFUS, 250 | | | | | | | [address] [place] | | | | | | | STERILE | | | | | | | WATER/SALINE | | | | | | | , [address] [place] | | | | | | | CHEMOTHER, | | | | | | | IV PUSH,EA | | | | | | | ADD DRUG AK | | | | | | | CHEMOTHER, | | | | | | | IV INFUSION, | | | | | | | 1 HR [place] | | | | | | | CHEMOTHER, | | | | | | | IV INFUSION, | | | | | | | EA HR AK | | | | | | | CHEMOTHER,NO | | | | | | | N-HORMONE | | | | | | | ANTI-NEOPL, | | | | | | | SUB-Q/IM AK | | | | | | | CHEMOTHER | | | | | | | HORMON | | | | | | | ANTINEOPL | | | | | | | SUB-Q/IM AK | | | | | | | ONDANSETRON | | | | | | | HCL | | | | | | | INJECTION, 1 | | | | | | | MG AK | | | | | | | DEXAMETHASON | | | | | | | E SODIUM | | | | | | | PHOS, 1 MG | | | | | | | AK LORAZEPAM | | | | | | | INJECTION, | | | | | | | 2 MG AK | | | | | | | OXALIPLATIN, | | | | | | | .5 MG AK | | | | | | | LEUCOVORIN | | | | | | | CALCIUM | | | | | | | INJECTION, | | | | | | | 50 MG AK | | | | | | | DIPHENHYDRAM | | | | | | | INE HCL | | | | | | | INJECTIO, 50 | | | | | | | MG [place] | | | | | | | METHYLPREDNI | | | | | | | SOLONE | | | | | | | INJECTION, | | | | | | | 125 MG [place] | | | | | | | ADRENALIN | | | | | | | EPINEPHRINE | | | | | | | INJECT, .1 | | | | | | | MG AK | | | | | | | ALBUTEROL | | | | | | | COMP CON, 1 | | | | | | | MG [place] | | | | | | | ALBUTEROL | | | | | | | NON-COMP | | | | | | | CON, 1 MG | | | | | | | AK | | | | | | | INJECTION, | | | | | | | FAMOTIDINE, | | | | | | | 20 MG | | | +--------+--------+ + + + + Encounter Details +--------+ + + + + | Date | Type | Department | Care Team | Description | +--------+ + + + + | 02/14/ | Hospital | [facility] | [facility], | Rectal cancer (HCC) | | 2017 | Encounter | MED CTR CHEMO | Mike White MD [address] | (Primary Dx) | | | | INFUSION [address] | [address] [place] | | | | | [place], | [place] [address] | | | | | [place] [address] | [phone] | | | | | [phone] | | | +--------+ + + + [...] [address] | [place] | [phone] | | [facility] | | [address] | | | - LABORATORY | | [...] 10 | 7 - 18 mg/dL | [facility] | | | | | | [facility] | | | | | | MEDICAL | | | | | | CENTER - | | | | | | LABORATORY | | + + + + + + | Creatinine | 0.55 (L) | 0.60 - 1.30 | [facility] | | | | | mg/dL | [facility] | | | | | | MEDICAL | | | | | | CENTER - | | | | | | LABORATORY | | + + + + + + | eGFR if not | >60Comment: GLOMERULAR | >=60 | [facility] | | | | FILTRATION | mL/min/1.73m2 | [facility] | | | [place]AN | RATE,ESTIMATED | | MEDICAL | | | | mL/min/1.64p8Wkkx than | | CENTER - | | [...] | | | | mg/dL | [facility] | | | | [...] [address] | [place] | [phone] | | [facility] | | [address] | | | - LABORATORY | | [...] [address] | [place] | [phone] | | [facility] | | [address] | | | - LABORATORY | | [...]
--- OUTSIDE RECORDS SUMMARY | ~2019-06-11 | XMS | Encounter Summary ---
Demographics + + + | Address | [address] | | | [place] [address] | + + + | Home Phone [...] + | Organization | [facility] | | | and [place] | + + + | Address | Unknown | + + + | Phone | Unavailable | + + + Support + + + + + | Name | Relationship | Address | Phone | + + + + + | Lamar Phillips | REZA | [place] [address] | | + + + + + Care Team Providers + +------+ + | Care Broiler Supervisor Name | Role | Phone | [...] | | ONCOLOGY CLINIC [address] | [place], [place] | | | | | [address] [place] | [address] | | | | | [place] [address] | | | | | | [phone] | | | +--------+ + + + [...]
--- OUTSIDE RECORDS SUMMARY | ~2019-06-11 | XMS | Encounter Summary ---
Demographics + + + | Address | [address] | | | [place] [address] | + + + | Home Phone [...] Team Providers + +------+ + | Care Card Writer Hand Name | Role | Phone | + +------+ + | Kristian Anderson DO | PCP | | + +------+ + Encounter Details +--------+ + + + + | Date | Type | Department | Care Team | Description | +--------+ + + + + | 09/22/ | Telephone | Digestive Health | Ailyn Wolff MD | | | 2017 | | [place] [facility] [address] | [address] | | | | | [address] | [place], | | | | | Mailcode: [place] | [place] [address] | | | | | for Health and | [phone] | | | | | [place] [address] | | | | | | [place], [place] | | | | | | [address] | | | | | | [phone] | | | +--------+ + + + [...] | | | | | [place]mit[place], | | | | | | [place] [address] | | | | | | [phone] | | | | | | | [...] | PATHOLOGY | | | | Institution: [facility] | | | | | | [facility], | | | | | | [place], [place] | | | | | | [id number] Accession | | | | | | Number: [id number] | | | | | | Collection Date: | | | | | | 09/02/2016Sublabeled | | | | | | H&E A to D | | | | | | 4 | | | | | | Final Pathologic | | | | | | Diagnosis:Multiple | | | | | | specimens A to D | | | | | | ([id number]; 09/02/16):Low | | | | | | [...] | + + + + + | [facility] | [address] | [place] [address] | | | PATHOLOGY | [address] | | | + + + + + documented in this encounter Visit Diagnoses + + | Diagnosis | + + | Rectal cancer (HCC) - Primary Malignant neoplasm of rectum | + + documented in this encounter"
--- OUTSIDE RECORDS SUMMARY | ~2019-06-11 | XMS | Encounter Summary ---
Demographics + + + | Address | [address] | | | [place] [address] | + + + | Home Phone [...] Providers + +------+ + | Care State Superintendent Of Schools Name | Role | Phone | + [...] | | | | CT CHEST, | [place], [place] | Mailcode: | | | | | ABDOMEN AND | [address] | [address] [facility] | | | | | [address] | Phone: | Hospital | | | | | [place] | [phone] | [place], [place] | | | | | CAT SCAN OF | Fax: | [address] | | | | | CHEST | [phone] | Phone: | | | | | [place] | | [phone] | | | | | CT | | Fax: | | | | | ABDOMEN&PELV | | [phone] | | | | | IS | [...] | | | | MR RECTAL | [facility] [place] | Mailcode: | | | | | [place] | [address] | [address] | | | | | MRI, PELVIS, | Phone: | [facility] | | | | | COMBO | [phone] | Research | | | | | | Fax: | Center | | | | | | [phone] | [place], [place] | | | | | | | [address] | | | | | | | Phone: | | | | | | | [phone] | | | | | | | Fax: | | | | | | | [phone] | +--------+--------+ + + + + Reason [...] | 2017 | | Center at [facility] [address] | [address] | rectal protocol and | | | | [address] | [address] [place], | [place] c/a/p after 6 | | | | Mailcode: [place] | [place] [address] | cycles of chemo) | | | | for Health and | [phone] | | | | | [facility] 2 | | | | | | [place], [place] | | | | | | [address] | | | | | | [phone] | | | +--------+ + + + [...] | | | | | | [place] [address] | | | | | | [phone] | | | | | | | [...]
--- OUTSIDE RECORDS SUMMARY | ~2019-06-11 | XMS | Encounter Summary ---
Demographics + + + | Address | [address] | | | [place] [address] | + + + | Home Phone [...] Team Providers + +------+ + | Care Railway Yard Assistant Name | Role | Phone | [...] | 2018 | | Center at [facility] [address] | [address] | Review | | | | [address] | Amita Hines [place], | | | | | Mailcode: [place] | [place] [address] | | | | | for Health and | [phone] | | | | | [facility] 2 | | | | | | [place], [place] | | | | | | [address] | | | | | | [phone] | | | +--------+ + + + [...] | | | | | Amita H[place], | | | | | | [place] [address] | | | | | | [phone] | | | | | | | | +--------+---------+ + + + documented as of this encounter Visit Diagnoses Not on filedocumented in this encounter"
--- OUTSIDE RECORDS SUMMARY | ~2019-06-11 | XMS | Encounter Summary ---
Demographics + + + | Address | [address] | | | [place] [address] | + + + | Home Phone [...] Phone | + + +---------+ + | Darrisu Quintana | ECON | Unknown | | + + +---------+ + Care Team Providers + +------+ + | Care Supervisor Residential Name | Role | Phone | + [...] + + | 06/30/ | Hospital | [facility] [address] | Ailyn Wolff MD | | | 2017 - | Encounter | [address] | [address] | | | | | 12C/UHS31 [facility] | Suzy H[place], | | | 07/05/ | | [facility], | [place] [address] | | | 2016 | | [place] [address] | [phone] | | | | | [phone] | | | +--------+ + + + [...] m the original. [facility] Discharge Summary Green Service Admit Date: [...] posterior vaginal wall. 5. Placement of a 19-Ivorian Albert drain through the right lower quadrant [...] narcotic pain medications, please call the clinic ([phone] ) by 2 pm on for any [...] hours by calling the surgery office at [phone]. After hours, weekends and holidays, you may call the hospital logging shovel operator at [phone] and have the stone cutter Green Team for general surgery paged. Constipation: [...] your instructions. Acetaminophen (Tylenol): You may use ybdr-lar-sblamrd (OTC) acetaminophen for milder pain. Do not [...] medications with Hydrocodone such as Vicodin or [place]. It is important to keep track of [...] Phone Center 07/27/2017 3:[address] [facility] 6th Floor [phone] [facility] Schedule the following appointment(s) when you get [...] MD Surgery, PGY1 [facility] Associated attestation - Ailyn Wolff MD [...] through Care Everywhere.Bowel Resection : Open: Post-op (Citizen Of [place])Post-op Infection (Citizen Of [place])Ureteral Stent Placement: Post-op (Sathya yoo)documented in this [...] | | 18 | | | | [id number], Skin prep: | | | | | | | 3M 3344 (30/mo), Adh | | | | | | | Rem HO 7760 | | | | | | | (1box/mo), Rings: HO | | | | | | | 8805 (10/mo), | | | | | | | Deodorant: HO 04273 | | | | | | | (60/mo), Pwdr: CT | | | | | | | 045239 (1oz/mo), | | | | | | | Belt: Lrg (2/mo) | | | | | | | and Irrigation CO | | | | | | | 942367, Sleeve CO | | | | | | | 888659 | | | | | + + [...] Physician: Ailyn Wolff MD Patient: PAULETTE BYRNES [id number] 24H events/Subjective: Epidural removed yesterday, pain controlled. [...] Tim Davila MD General Surgery, PGY-1 Pager: [phone] Associated attestation - Ailyn Wolff MD - [...] BLOCK PROGRESS NOTE 07/04/2017 Author: Andree English ADMINISTRATIVE SERVICES SPECIALIST Epidural day # 4 POD# 4. Status [...] personal assessment is concordant with this evaluation Castilol status: Epidural: at lumbar level; maintain Castillo [...] Andree English NP Adult Pain Service Pager [phone] Team Pager [phone] Tim See MD - 5:31 AM PST Green Surgery Progress Note Hospital Day: 4 Attending Physician: Ailyn Wolff MD Patient: PAULETTE BYRNES [id number] 24H events/Subjective: Epidural still functioning, removed later [...] Tim Davila MD General Surgery, PGY-1 Pager: [phone] Associated attestation - Ailyn Wolff MD - [...] 50 mL/hr intravenous CONTINUOUS 50 mL/hr (07/03/17 9155) ropivacaine 0.1 %-HYDROmorphone 10 mcg/mL epidural infusion [...] full diet Alta Woods MD Team Pager [phone] signed by Alta Woods MD at 07/03/2017 [...] this patient. Alta Woods MD Team Pager [phone] signed by Alta Woods MD at 07/02/2017 [...] [place]. [place] [phone] with questions. Dorene Carter (Mr.) MSN, ACNP- Nurse Practitioner [facility] [address] [place] [address] Vicki Erwin M D - 07/01/2017 6:04 AM PSTAPS brief note: Evaluated epidural at bedside. Catheter intact h/e filter broken resulting in leak. Replace d filtered and resumed epidural infusion. Vicki Emanuel [place] pg [id number] signed by Vicki Emanuel MD at 07/10/2017 3:36 PM PSTHasl Natalie mckeon MD - 07/01/2017 5:36 AM PST Green Surgery Progress Note Hospital Day: 1 Attending Physician: Ailyn Wolff MD Patient: PAULETTE BYRNES [id number] 24H events/Subjective: Pt comfortable in bed this [...] 07/01/17 0659 07/01/17699 - 07/02/17 0659 Shift 4431-7417 2318-4896 4464-2960 24 Hour Total 1393-7445 1784-1207 2732-9108 24 Hour Tot al I N T [...] Poon MD PGY-1 Department of General Surgery [id number] Ivette Shannon MD - 06/30/2017 11:02 PM [...] Jade MD Otolaryngology-Head & Neck Surgery PGY-1 [id number] documented in this encount er Plan of Treatment +--------+---------+ + + + | Date | Type | Specialty | Care Team | Description | +--------+---------+ + + + | 06/18/ | Office | Surgery | Ailyn Wolff MD | | | 2019 | Visit | | [address] | | | | | | [place], | | | | | | [place] [address] | | | | | | [phone] | | | | | | | [...] | 10:19 AM | ([facility]) | procedure are in the | [...] | 8:03 AM | ([facility]) | | | | Surgic | [...] + + | Performing | Address | City/State/[facility] | Phone Number | | Organization | | | | + + + + + | [facility] | [address] | [place], [place] | | | [facility] | [address] | [address] | | | TESTS | | | [...] [facility] | [address] | [place], [place] | | | [facility] | [facility] | [address] | | | TESTS | | | [...] (H) | 70 - 99 mg/dL | [facility] - | | | GLUCOSE, | [...] [place] | [address] | [place], [place] | | | [facility] | [address] | [address] | | | TESTS | | | [...] [place] | [address] | [place], [place] | | | [facility] | [address] | [address] | | | TESTS | | | [...] MARCIAL[place] | [address] | [place], [place] | | | [facility] | [facility] | [address] | | | TESTS | | | [...] (H) | 70 - 99 mg/dL | [facility] - | | | GLUCOSE, | [...] [place] | [address] | [place], [place] | | | [facility] | [address] | [address] | | | TESTS | | | [...] + + | Performing | Address | City/State/[facility] | Phone Number | | Organization | | | | + + + + + | [facility] | [address] | [place], [place] | | | [facility] | [facility] | [address] | | | TESTS | | | [...] [place] | [address] | [place], [place] | | | [facility]ARE | [facility] | [address] | | | TESTS | | | [...] (H) | 70 - 99 mg/dL | [facility] - | | | GLUCOSE, | [...] NICOL[facility] | [address] | [place], [place] | | | [facility] | [address] | [address] | | | TESTS | | | [...] [place] | [address] | [place], [place] | | | [facility] | [facility] | [address] | | | TESTS | | | [...] - [place] | [address] | [place], [place] | | | [facility]ARE | [facility] | [address] | | | TESTS | | | [...] (L) | 70 - 99 mg/dL | [facility] - | | | GLUCOSE, | [...] NICOLASA | [address] | [place], [place] | | | [facility] | [address] | [address] | | | TESTS | | | [...] [place] | [address] | [place], [place] | | | [facility] | [address] | [address] | | | TESTS | | | [...] [place] | [address] | [place], [place] | | | [facility] | [facility] | [address] | | | TESTS | | | [...] (L) | 70 - 99 mg/dL | [facility] - | | | GLUCOSE, | | [...] + + + | [facility] | [address] | [place], [place] | | | [facility] | [address] | [address] | | | TESTS | | | [...] [place] | [address] | [place], [place] | | | [facility] | [address] | [address] | | | TESTS | | | [...] [place] | [address] | [place], [place] | | | [facility] | [address] | [address] | | | TESTS | | | [...] [place] | [address] | [place], [place] | | | [facility] | [address] | [address] | | | TESTS | | | [...] [place] | [address] | [place], [place] | | | [facility] | [facility] | [address] | | | TESTS | | | [...] - [place] | [address] | [place], [place] | | | [facility] | [facility] | [address] | | | TESTS | | | [...] (H) | 70 - 99 mg/dL | [facility] - | | | GLUCOSE, | [...] [place] | [address] | [place], [place] | | | [facility] | [address] | [address] | | | TESTS | | | [...] [place] | [address] | [place], [place] | | | [facility] | [facility] | [address] | | | TESTS | | | [...] [facility] | [address] | [place], [place] | | | [facility] | [facility] | [address] | | | TESTS | | | [...] (H) | 70 - 99 mg/dL | [facility] - | | | GLUCOSE, | [...] [place] | [address] | [place], [place] | | | [facility] | [address] | [address] | | | TESTS | | | [...] [place] | [address] | [place], [place] | | | [facility] | [facility] | [address] | | | TESTS | | | [...] | + + + + + | [facility] [employer] | [address] | [place] [address] | | | SERVICES, CORE | [address] [...] | + + + + + | [facility] | [address] | [place] [address] | | | SERVICES, CORE | [address]ARK [...] + + | [facility] | [address] | [place] [address] | | | SERVICES, CORE | SUZY [...] | | | LABORATORY | | | SWAZI | | | SERVICES, | | | [...] | + + + + + | [facility] | [address] | [place] [address] | | | SERVICES, CORE | [address] [...] (H) | 70 - 99 mg/dL | [facility] - | | | GLUCOSE, | [...] + + + | [facility] | [address] | [place], [place] | | | [facility] | [address] | [address] | | | TESTS | | | [...] [place] | [address] | [place], [place] | | | [facility] | [address] | [address] | | | TESTS | | | [...] - [facility] | [address] | [place], [place] | | | [facility] | [address] | [address] | | | TESTS | | | [...] + + + | [facility] | [address] | [place], [place] | | | [facility] | [address] | [address] | | | TESTS | | | [...] [facility] | [address] | [place], [place] | | | [facility] | [facility] | [address] | | | TESTS | | | [...] [facility] | [address] | [place] [address] | | | SERVICES, CAR | [address] | | | + + + + + OPERATION RECORD (06/30/2017 7:26 PM PST) + + | Procedure Note | + + | Ailyn Wolff MD - 06/30/2017 7:26 PM PST Date of Service: 06/30/2017 Attending | | Surgeon: Ailyn Wolff MD Buzzle Buffer(s): Sae Slater MD | | Donna Gonzalez [...] resection with primary anastomosis.8. Placement of a 19-Ivorian Albert drain through the | | right lower quadrant wall into the presacral space.9. 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 Placement of anthony drain into former rectocutaneous | | bhkyryk93. Cystoscopy and bilateral ureteral stent placement with [...] anal verge. I presented her at the [facility] Multidisciplinary GI Oncology | | conference [...] fistula tract. We performed a small bowel syal-np-optf | | stapled anastomosis. Note, the abscess [...] closed the mesentery with a 3-0 Polysorb jewaac-an-spsql suture. The anastomosis | | was widely [...] the external sphincter with interrupted 0 Polysorb mnvhff-wp-tmuft sutures. We closed | | the deep [...] #1 Maxon sutures x2. We placed a 19-Ivorian Albert | | drain through the right [...] suture from the ostomy. We placed a antohny into the former | | rectocutaneous fistula. [...] | | 06/30/2017 17:03:37DT: 06/30/2017 19:26:50Job #: [id number] | | | | /[id number] | + + CAPILLARY BLOOD GLUCOSE (NO [...] [facility] | [address] | [place], [place] | | | [facility] | [address] | [address] | | | TESTS | | | [...] [facility] | [address] | [place], [place] | | | [facility]ARE | [address] | [address] | | | TESTS | | | [...] [place] | [address] | [place], [place] | | | [facility]ARE | [address] | [address] | | | TESTS | | | | + + + + + PROCEDURE NOTE (06/30/2017 5:14 PM PST) + + | Procedure Note | + + | Sae Slater MD - 06/30/2017 5:14 PM PST BRIEF OPERATIVE NOTEProcedure Date: | | 06/30/2017Author: Sae Slater [facility] Physician: Dr. Ailyn Suhts: Sae | | MD Nohemy, N1ZbturDonna Gonzalez MD, D3Rwgusdjajcfa Diagnosis: rectal cancerPostoperative | | Diagnosis: sameProcedure [...] | | Abdominal precautionsInitial surgical contact: Green fashion styling intern. Sae Slater MDGeneral | | Surgery, [id number] | |2. En bloc resection of rectum, [...] | | | |Initial surgical contact: Green fashion styling intern. | | | | | |Sae Slater MD | |General Surgery, R5 | |Pager [phone] | + + PROCEDURE NOTE (06/30/2017 2:44 [...] c/o | | flank pain). Delilah Calvert [id number] of Urology | | | |Indications: 56 [...] | | | |Delilah Vale | |Pager [phone] | |PGY-5 | |Department of Urology | [...] + + | [facility] | [address] [facility] [address] | [place], [place] | | | [facility] | [address] | [address] | | | TESTS | | | [...] placementSURGEON: Juan Luis, | | MD Princess RAIL SPLITTER: Natalie Poon MDANESTHESIA: General. ESTIMATED BLOOD LOSS: [...] Cleve PGY - 1Department of Urology PGR 12914 | |The patient was brought to the [...] was then turned back over to the [facility] surgical team for their portion of the procedure. Dr. Sánchez was present and directed t he entirety of the case. | | | |The attending of record is Juan Luis Sánchez | | | | | |Natalie Poon MD | |PGY - 1 | |Department of Urology | |PGR 23734 | + + ABG-FULL ABL, POC (06/30/2017 [...] [place] | [address] | [place], [place] | | | [facility] | [facility] | [address] | | | TESTS | | | [...] - [place] | [address] | [place], [place] | | | [facility] | [address] | [address] | | | TESTS | | | [...] + + + | [facility] | [address] | [place], [place] | | | [facility] | [address] | [address] | | | TESTS | | | [...] | | | | | | (pT): pU5Xvinaran Lymph | | | | | | Nodes (pN): | | | | | | rL8Ojbqpz of regional | | | | | [...] | | | | | | record #[id number]. | | | | | | A: [...] | | | | | | diameter. Stretch Machine Operator | | | | | | sections [...] identified. | | | | | | Stretch Machine Operator sections | | | | | | [...] additional | | | | | | community health program representative sections | | | | | [...] adipose | | | | | | ddrkslR07, anal | | | | | | [...] | | | | | remnantF1 and M0luail | | | | | | bowel [...] + + + + + | [facility] | [address] | [place] [address] | | | PATHOLOGY | [address] [...] PST | | | | | on [facility] 06/30/17 at 1845, Until | | | [...]
--- OUTSIDE RECORDS SUMMARY | ~2019-06-11 | XMS | Encounter Summary ---
Demographics + + + | Address | [address] | | | [place] [address] | + + + | Home Phone [...] Providers + +------+ + | Care Solar Electric Practitioner Name | Role | Phone | + [...] | | | | Pre-operativ | [address] | | | | | | e | [address] | | | | | | cardiovascul | [place], | | | | | | ar | [place] | | | | | | examination | [address] | | | | | | Tobacco | Phone: | | | | | | abuse | [phone] | | | | | | Dyspnea, | Fax: | | | | | | unspecified | [phone] | | | | | | type [...] | | | | Pre-operativ | [address] | | | | | | e | [address] | | | | | | cardiovascul | [place], | | | | | | ar | [place] | | | | | | examination | [address] | | | | | | Tobacco | Phone: | | | | | | abuse | [phone] | | | | | | Dyspnea, | Fax: | | | | | | unspecified | [phone] | | | | | | type [...] | | Procedures | CLINIC [address] | [facility] | | | | | CONSULT TO | [address] | for Health | | | | | CARDIOLOGY | [address]VE | and Healing, | | | | | | [place], | [address], | | | | | | [place] [address] | [facility] floor | | | | | | Phone: | [place], [place] | | | | | | [phone] | [address] | | | | | | Fax: | Phone: | | | | | | [phone] | [phone] | | | | | | | Fax: | | | | | | | [phone] | +--------+--------+ + + + + Encounter Details +--------+---------+ + + + | Date | Type | Department | Care Team | Description | +--------+---------+ + + + | 10/06/ | Office | Cardiology General | Bischof, Brittany | Dyspnea, unspecified | | 2017 | Visit | at [facility] [address] | [address] | type (Primary Dx); | | | | [address] Mailcode: | [address] [facility], | Pre-operative | | | | [facility] | [place] [address] | cardiovascular | | | | Health and Healing, | [phone] | examination; Tobacco | | | | Building | | abuse; Aortic | | | | floor [place], [place] | | systolic murmur on | | | | [address] | | examination | | | | [phone] | | | +--------+---------+ + + + [...] echo a nd dobutamine stress echo in [place], Call us back if they cannot get these done before 10/18/16 and we can do the tests at [facility].Electronically signed by WEN Gagnon 10/06/2016 [...] stents. He is 62. Her father of [place] at 52. History of Endocarditis or need for Endocarditis Prophylaxis? no History of Phen-Fen exposure? 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 She can walk up two [...] negative for ischemia. Outside records reviewed from [facility] (in media tab) Cardiac Risk Stratification [...] [address] Mailcode: U[facility]62 [facility] [place] [address] [phone] signed by Brittany Laboy PA-C at 10/07/2016 [...] | | | | | [address] [place], | | | | | | [place] [address] | | | | | | [phone] | | | | | | | [...] Performed At | + + + | [facility] DEPT OF | | [facility] Adult Echocardi[facility] [address] CARDIOLOGY | | [address] [place], [place] [address] Ph: | | | Pt Name: PAULETTE BYRNES | | | Study Date / Time 10/06/2016 / 11:17:12 AMMRN: [id number] | | | Most recent prior: 10/06/2016Acc #: | | | [id number] No. previous echos: 1DOB: | | | 1960 Age: 55 years Gender: FHeight: 63.0 in | | | BSA: 1.67 g4Uwoiun: | | | 142 lb Order ID: | | | [id number] medications: None.Indications: Preoperative | | | Evaluation Milling Machine Set Up Operator: Isaiah Min RDCS Referring Provider: Brittany | | | E BischofPatient [facility] Performed: Definity contrast | | [...] [place] electronically | | | signed by: [id number] Cole Chávez MD (10/06/2016, 1:52:06 | | | PM)REPORT HUJA=[id number] HOSP=PO REGION=A0 Final | | | | [...] MD | | |Report electronically signed by: [id number] Cole Chávez MD (10/06/2016, 1:52:06 | | |PM) | | |REPORT GOCP=[id number] HOSP=PO REGION=A0 | | | | | | | | | | | | | | | | | | Final | | + + + + + | Procedure Note | + + | Interface, Cardiology Results - 10/06/2016 1:[address] [facility] | | [facility] Echocardiography Laboratory [address] [place] [address] | | [place], [place] [address] Pt Name: PAULETTE | | BRITTANY BYRNES Study Date / Time 10/06/2016 / 11:17:12 AMMRN: [id number] | | Most recent prior: 10/06/2016Acc #: [id number] No. previous | | echos: 1DOB: 1960 Age: 55 years Gender: FHeight: 63.0 in | | BSA: 1.67 z0Cdlxiy: 142 lb Order ID: | | [id number] medications: None.Indications: Preoperative Evaluation Milling Machine Set Up Operator: | | Isaiah Min [facility] Referring Provider: Brittany Rojas Location: [facility] | | Performed: Definity contrast [...] | Jose M Chávez electronically signed by: [id number] Cole Chávez MD (10/06/2016, | | 1:52:06 PM)REPORT VSNY=[id number] HOSP= REGION=A0 Final | |predicted maximal heart [...] Chávez MD | |Report electronically signed by: [id number] Cole Chávez MD (10/06/2016, 1:52:06 | |PM) | |REPORT TKLG=[id number] HOSP=PO REGION=A0 | | | | | | | | | | | | Final | + + + + + + + | Performing | Address | City/State/Zipcode | Phone Number | | Organization | | | | + + + + + | [facility] DEPT OF | [address] | [place], [place] | | | CARDIOLOGY | [address] | [address] | | + + + + + [...] | + +---- + | [facility] | [facility] DEPT OF | | [facility] Adult Echocardiography [facility] [address] | CAR DIOLOGY | | [address] [place], [place] [address] Ph: | | | Pt Name: PAULETTE BYRNES | | | Study Date/Time 10/06/2016 / 8:59:07 AMMRN: [id number] | | | Most recent prior: -[facility] #: [id number] | | | No. previous echos: 0DOB: 1960 55 years Heart Rate: | | | 78 bpmHeight: 63.0 in Blood | | | Pressure: 131/69 mm/HgWeight: 142.0 lb | | | Gender: FBSA: 1.67 m2 | | | Order ID: [id number] Milling Machine Set Up Operator: Brandon Hwang MA, | | | [facility] Referring Provider: Brittany Starksatisuki Location: | [...] Report electronically signed by: | | | [id number] Cole Chávez MD (10/06/2016, 10:21:24 AM)REPORT | | | IESX=[id number] HOSP=PO REGION=A0 Final | | | cm [...] | | | |Report electronically signed by: [id number] Cole Chávez MD (10/06/2016, 10:21:24 | | |AM) | | |REPORT FSGE=[id number] HOSP=PO REGION=A0 | | | | | | | | | | | | Final | | + +---- + + + | Procedure Note | + + | Interface, Cardiology Results - 10/06/2016 10:[address] [facility] | | [facility] Echocardiography Laboratory [address] [place] [address] | | [place], [place] [address] Pt Name: PAULETTE | | BRITTANY BYRNES Study Date/Time 10/06/2016 / 8:59:07 AMMRN: [id number] | | Most recent prior: -Acc #: [id number] No. previous echos: 0DOB: | | 1960 55 years Heart Rate: 78 bpmHeight: 63.0 in Blood | | Pressure: 131/69 mm/HgWeight: 142.0 lb Gender: FBSA: | | 1.67 m2 Order ID: [id number] Milling Machine Set Up Operator: Brandon Hwang MA, | | RDCSReferring Provider: Brittany Rojas Location: [facility] Performed: | | 2D, Color [...] | indexed values Report electronically signed by: [id number] Cole Chávez MD | | (10/06/2016, 10:21:24 AM)REPORT PDPC=[id number] HOSP=[facility] REG[facility]=A0 Final | |ventricular ejection fraction [...] | | | |Report electronically signed by: [id number] Cole Chávez MD (10/06/2016, 10:21:24 | |AM) | |REPORT GSXV=[id number] HOSP=PO REGION=A0 | | | | | | | | Final | + + + + + + + | Performing | Address | City/State[facility] | Phone Number | | Organization | | | | + + + + + | [facility] | [address] | [place], [place] | | | CARDIOLOGY | [address] | [address] | | + + + + + [...] [facility] OF | [id number] | [place], [place] | | | CARDIOLOGY | [address] | [address] | | + + + + + [...]
--- OUTSIDE RECORDS SUMMARY | ~2019-06-11 | XMS | Encounter Summary ---
Demographics + + + | Address | [address] | | | [place] [address] | + + + | Home Phone [...] Team Providers + +------+ + | Care Magnetic Testing Technician Name | Role | Phone | [...] | | Center at [facility] [address] | [address] | Planning Conference | | | | [address] | [address] [place], | delayed) | | | | Mailcode: [place] | [place] [address] | | | | | for Health and | [phone] | | | | | [facility] [address] | | | | | | [place], [place] | | | | | | [address] | | | | | | [phone] | | | +--------+ + + + [...] | | | | | [address] [place], | | | | | | [place] [address] | | | | | | [phone] | | | | | | | | +--------+---------+ + + + documented as of this encounter Visit Diagnoses Not on filedocumented in this encounter"
--- OUTSIDE RECORDS SUMMARY | ~2019-06-11 | XMS | Encounter Summary ---
Demographics + + + | Address | [address] | | | [place] [address] | + + + | Home Phone [...] Organization | [facility] | | | and [place] | + + + | Address | Unknown | + + + | Phone | Unavailable | + + + Support + + + + + | Name | Relationship | Address | Phone | + + + + + | Lamar Phillips | REZA | [place] [address] | | + + + + + Care Team Providers + +------+ + | Care Cuff Turner Machine Operator Name | Role | Phone [...] Closed | | Radiology | Diagnoses | [place], | [address] | | | | | Rectal | Florence M, | [place] | | | | | cancer (HCC) | MD [address] | [place], | | | | | Procedures | [address] | [place] [address] | | | | | CT | [place], | Phone: | | | | | Treatment | [place] [address] | [phone] | | | | | Plan Complex | Phone: | Fax: | | | | | | [phone] | [phone] | | | | | | Fax: | | | | | | | [phone] | | +--------+--------+ + + + + [...] + + + + | 02/08/ | Hospital | [facility] | Florence Huitron | Canceled (Clinic | | 2017 | Encounter | MED CTR [address] | MMD [address] | and/or Provider | | | | [place], | [place], [place] | Cancellation) | | | | [place] [address] | [phone] | | | | | [phone] | | | +--------+ + + + [...] Imaging | Routin | Rectal cancer | 1 Occurrences | | Complex | | e | (HCC) | starting 02/08/2017 | | | | | | until 02/08/2017 | + +---------+--------+ + + documented as of this encounter Visit Diagnoses Not on filedocumented in this encounter"
--- OUTSIDE RECORDS SUMMARY | ~2019-06-11 | XMS | Encounter Summary ---
Demographics + + + | Address | [address] | | | [place] [address] | + + + | Home Phone [...] Team Providers + +------+ + | Care Beater Room Supervisor Name | Role | Phone | + +------+ + | Kristian Anderson DO | PCP | | + +------+ + Encounter Details +--------+ + + + + | Date | Type | Department | Care Team | Description | +--------+ + + + + | 07/19/ | General Activities Therapist | Digestive Health | Trinidad Garcia, | | | 2016 | | Center at [facility] [address] | AGACNP [address] | | | | | [address] | [facility] [place] | | | | | Mailcode: [place] | [address] | | | | | for Health and | | | | | | [facility] | | | | | | [facility] [place] | | | | | | [address] | | | | | | [phone] | | | +--------+ + + + [...] | | | | | Amita [place], | | | | | | [place] [address] | | | | | | [phone] | | | | | | | | +--------+---------+ + + + documented as of this encounter Visit Diagnoses Not on filedocumented in this encounter"
--- OUTSIDE RECORDS SUMMARY | ~2019-06-11 | XMS | Encounter Summary ---
Demographics + + + | Address | [address] | | | [place] [address] | + + + | Home Phone | | + + + | Preferred Language | Unknown | + + + | Marital Status | | + + + | Pentecostal Affiliation | Unknown | + + + | Race | Unknown | + + + | Ethnic Group | Unknown | + + + Author + + + | Author | [facility] | | | and [place] | + + + | Organization | [facility] | | | and [place] | + + + | Address | Unknown | + + + | Phone | Unavailable | + + + Support + + + + + | Name | Relationship | Address | Phone | + + + + + | Lamar Phillips | REZA | [place] [address] | | + + + + + Care Team Providers + +------+ + | Care Bottom Hoop Driver Name | Role | Phone | [...] neoplasm of | Mike C, | [place] | | | | | rectum (HCC) | MD [address] | [place], | | | | | Procedures | [address] | [place] [address] | | | | | [place] | [place], | Phone: | | | | | [place] | [place] [address] | [phone] | | | | | INJECTION, | Phone: | Fax: | | | | | 500 [address] | [phone] | [phone] | | | | | NORMAL | Fax: | | | | | | SALINE | [phone] | | | | | | SOLUTION | | | | | | | INFUS, 500 | | | | | | | ML IN | | | | | | | NORMAL | | | | | | | SALINE | | | | | | | SOLUTION | | | | | | | INFUS, 250 | | | | | | | ML IN | | | | | | | STERILE | | | | | | | WATER/SALINE | | | | | | | , 10 ML IN | | | | | | | CHEMOTHER, | | | | | | | IV PUSH,EA | | | | | | | ADD DRUG IN | | | | | | | CHEMOTHER, | | | | | | | IV INFUSION, | | | | | | | 1 HR IN | | | | | | | CHEMOTHER, | | | | | | | IV INFUSION, | | | | | | | EA HR IN | | | | | | | CHEMOTHER,NO | | | | | | | N-HORMONE | | | | | | | ANTI-NEOPL, | | | | | | | SUB-Q/IM IN | | | | | | | CHEMOTHER | | | | | | | HORMON | | | | | | | ANTINEOPL | | | | | | | SUB-Q/IM IN | | | | | | | ONDANSETRON | | | | | | | HCL | | | | | | | INJECTION, 1 | | | | | | | MG IN | | | | | | | DEXAMETHASON | | | | | | | E SODIUM | | | | | | | PHOS, 1 MG | | | | | | | IN LORAZEPAM | | | | | | | INJECTION, | | | | | | | 2 MG IN | | | | | | | OXALIPLATIN, | | | | | | | .5 MG IN | | | | | | | LEUCOVORIN | | | | | | | CALCIUM | | | | | | | INJECTION, | | | | | | | 50 MG IN | | | | | | | DIPHENHYDRAM | | | | | | | INE HCL | | | | | | | INJECTIO, 50 | | | | | | | MG IN | | | | | | | METHYLPREDNI | | | | | | | SOLONE | | | | | | | INJECTION, | | | | | | | 125 MG IN | | | | | | | ADRENALIN | | | | | | | EPINEPHRINE | | | | | | | INJECT, .1 | | | | | | | MG IN | | | | | | | ALBUTEROL | | | | | | | COMP CON, 1 | | | | | | | MG IN | | | | | | | ALBUTEROL | | | | | | | NON-COMP | | | | | | | CON, 1 MG | | | | | | | IN | | | | | | | INJECTION, | | | | | | | FAMOTIDINE, | | | | | | | 20 MG | | | +--------+--------+ + + + + Encounter Details +--------+ + + + + | Date | Type | Department | Care Team | Description | +--------+ + + + + | 03/21/ | Hospital | [facility] | [facility], | Rectal cancer (HCC); | | 2017 | Encounter | MED CTR CHEMO | Mike White MD [address] | Lichen sclerosus | | | | INFUSION [address] | [address] [place] | | | | | [place], | [place] [address] | | | | | [place] [address] | [phone] | | | | | [phone] | | | +--------+ + + + [...] [address] | [place] | [phone] | | [facility] | | [address] | | | - LABORATORY | | [...] mL/min/1.73m2 | [facility] | | | FIJIAN | RATE,ESTIMATED | | MEDICAL | | | | mL/min/1.67b2Cswk than | | CENTER - | | [...] [address] | [place] | [phone] | | [facility] | | [address] | | | - LABORATORY | | [...] [address] | [place] | [phone] | | [facility] | | [address] | | | - LABORATORY | | [...] [address] | [place] | [phone] | | [facility] | | [address] | | | - LABORATORY | | [...]
--- OUTSIDE RECORDS SUMMARY | ~2019-06-11 | XMS | Encounter Summary ---
Demographics + + + | Address | [address] | | | [place] [address] | + + + | Home Phone [...] Providers + +------+ + | Care Manager Administrative Name | Role | Phone | + [...] | | | | Epic Dept | [address] | | | | | | | [address] | | | | | | | [place] | | | | | | | [place], [place] | | | | | | | [address] | | | | | | | Phone: | | | | | | | [phone] | | | | | | | Fax: | | | | | | | [phone] | +--------+--------+ + + + + Encounter Details +--------+---------+ + + + | Date | Type | Department | Care Team | Description | +--------+---------+ + + + | 11/21/ | Office | Digestive Health | Ailyn Wolff MD | CA of rectum (HCC) | | 2018 | Visit | Center at [facility] [address] | [address] | (Primary Dx) | | | | [address] | [place], | | | | | Mailcode: [place] | [place] [address] | | | | | for Health and | [phone] | | | | | Healing, Building [address] | | | | | | [place], [place] | | | | | | [address] | | | | | | [phone] | | | +--------+---------+ + + + [...] cm from anal verge presented at the [facility] Multidisciplinary GI Oncology Conference on 10/07/16 [...] to Mendoza pouch staple line presented at [facility] Multidisciplinary GI Oncology Conference on 03/10/17. [...] MRI ([facility]H, 05/17/17) close to pelvic sidewall [facility] Multidisciplinary GI Oncology Conference (06/02/17) Recommendations [...] resection with primary anastomosis, placement of a 19-Ivorian Albert drain through the [...] resection with primary anastomosis, placement of a 19-Ivorian Albert drain through the [...] Return/Re-evaluation patient, I spent 13 minutes of jhzq-an-vhxk time, of which m ore than half the time was spent in counseling. 10 minute document review do cumented in this encounter Plan of Treatment +--------+---------+ + + + | Date | Type | Specialty | Care Team | Description | +--------+---------+ + + + | 06/18/ | Office | Surgery | Ailyn Wolff MD | | | 2018 | Visit | | [address] | | | | | | [place], | | | | | | [place] [address] | | | | | | [phone] | | | | | | | | +--------+---------+ + + + documented as of this encounter Visit Diagnoses + + | Diagnosis | + + | 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
--- OUTSIDE RECORDS SUMMARY | ~2019-06-11 | XMS | Encounter Summary ---
Demographics + + + | Address | [address] | | | [place] [address] | + + + | Home Phone [...] Organization | [facility] | | | and [place] | + + + | Address | Unknown | + + + | Phone | Unavailable | + + + Support + + + + + | Name | Relationship | Address | Phone | + + + + + | Lamar Phillips | REZA | [place] [address] | | + + + + + Care Team Providers + +------+ + | Care Histotechnician Name | Role | Phone | + +------+ + | Kristian Anderson DO | PCP | | + +------+ + Encounter Details +--------+ + + + + | Date | Type | Department | Care Team | Description | +--------+ + + + + | 01/10/ | Hospital | [facility] | Janel, | Canceled (Clinic | | 2017 | Encounter | MED CTR NUTRITION | Mike White MD [address] | and/or Provider | | | | SERVICES [address] | [address] [place] | Cancellation) | | | | [place], | [place] [address] | | | | | [place] [address] | [phone] | | | | | [phone] | | | | | | | [...]
--- OUTSIDE RECORDS SUMMARY | ~2019-06-11 | XMS | Encounter Summary ---
Demographics + + + | Address | [address] | | | [place] [address] | + + + | Home Phone [...] Team Providers + +------+ + | Care Centrifugal Chiller Technician Name | Role | Phone | + +------+ + | Silvioct Kristian | PCP | | + +------+ + Encounter Details +--------+------+ + + + | Date | Type | Department | Care Team | Description | +--------+------+ + + + | 08/28/ | Lab | Laboratory at [facility] | | [facility]) | | 2019 | | [address] | | | | | | [place], [place] | | | | | | [address] | | | | | | [phone] | | | +--------+------+ + + + [...] | | | | | [place], | | | | | | [place] [address] | | | | | | [phone] | | | | | | | [...] | + + + + + | [facility] | [address] | [place] [address] | | | SERVICES, CORE | [address] | | | + + + + + documented in this encounter Visit Diagnoses + + | Diagnosis | + + | CA of rectum (HCC) Malignant neoplasm of rectum | + + documented in this encounter"
--- OUTSIDE RECORDS SUMMARY | ~2019-06-11 | XMS | Encounter Summary ---
Demographics + + + | Address | [address] | | | [place] [address] | + + + | Home Phone [...] | Located Within [facility] | | | and [place] | + + + | Address | Unknown | + + + | Phone | Unavailable | + + + Support + + + + + | Name | Relationship | Address | Phone | + + + + + | Lamar Phillips | REZA | [place] [address] | | + + + + + Care Team Providers + +------+ + | Care Lace Roller Name | Role | Phone | [...] | +--------+ + + + + | 11/02/ | Telephone | [facility] | Janel, | Other | | 2017 | | MED [facility] | Mike White MD [address] | | | | | ONCOLOGY CLINIC [address] | [address] [place] | | | | | [place] | [place] [address] | | | | | [place] [address] | [phone] | | | | | [phone] | | | +--------+ + + + [...]
--- OUTSIDE RECORDS SUMMARY | ~2019-06-11 | XMS | Encounter Summary ---
Demographics + + + | Address | [address] | | | [place] [address] | + + + | Home Phone | | + + + | Preferred Language | Unknown | + + + | Marital Status | | + + + | Anabaptist Affiliation | Unknown | + + + | Race | Unknown | + + + | Ethnic Group | Unknown | + + + Author + + + | Author | [facility] | | | and [place] | + + + | Organization | [facility] | | | and [place] | + + + | Address | Unknown | + + + | Phone | Unavailable | + + + Support + + + + + | Name | Relationship | Address | Phone | + + + + + | Lamar Phillips | REZA | [place] [address] | | + + + + + Care Team Providers + +------+ + | Care Center Receptionist Name | Role | Phone | + [...] + + | 12/27/ | Hospital | [facility] | Janel, | | | 2017 | Encounter | MED CTR NUTRITION | Mike White MD [address] | | | | | SERVICES [address] | [address] [place] | | | | | [place], | [place] [address] | | | | | [place] [address] | [phone] | | | | | [phone] | | | | | | | [...]
--- OUTSIDE RECORDS SUMMARY | ~2019-06-11 | XMS | Encounter Summary ---
Demographics + + + | Address | [address] | | | [place] [address] | + + + | Home Phone [...] | Organization | [facility] | | | and [place] | + + + | Address | Unknown | + + + | Phone | Unavailable | + + + Support + + + + + | Name | Relationship | Address | Phone | + + + + + | Lamar Phillips | REZA | [place] [address] | | + + + + + Care Team Providers + +------+ + | Care Senior Software Qa Engineer Name | Role | Phone | [...] | Rectal | Florence M, | [address] [place] | | | | | cancer (HCC) | MD [address] | [place], | | | | | Procedures | [address] | [place] [address] | | | | | CT | [place], | Phone: | | | | | Treatment | [place] [address] | [phone] | | | | | Plan Complex | Phone: | Fax: | | | | | | [phone] | [phone] | | | | | | Fax: | | | | | | | [phone] | | +--------+--------+ + + + + [...] + + | 02/08/ | Hospital | [facility] | Florence Huitron | Canceled (Clinic | | 2017 | Encounter | MED CTR [address] | MMD [address] | and/or Provider | | | | [place], | [place], [place] | Cancellation) | | | | [place] [address] | [phone] | | | | | [phone] | | | +--------+ + + + [...]
--- OUTSIDE RECORDS SUMMARY | ~2019-06-11 | XMS | Encounter Summary ---
Demographics + + + | Address | [address] | | | [place] [address] | + + + | Home Phone [...] Team Providers + +------+ + | Care Silica Dry Press Helper Name | Role | Phone | + +------+ + | Kristian Anderson DO | PCP | | + +------+ + Encounter Details +--------+ + + + + | Date | Type | Department | Care Team | Description | +--------+ + + + + | 10/14/ | Telephone | Digestive Health | Ailyn Wolff MD | | | 2017 | | [place] at [facility] [address] | [address] | | | | | [address] | [place], | | | | | Mailcode: [place] | [place] [address] | | | | | for Health and | [phone] | | | | | [place] [address] | | | | | | [place], [place] | | | | | | [address] | | | | | | [phone] | | | +--------+ + + + [...] | | | | | [place], | | | | | | [place] [address] | | | | | | [phone] | | | | | | | | +--------+---------+ + + + documented as of this encounter Visit Diagnoses Not on filedocumented in this encounter"
--- OUTSIDE RECORDS SUMMARY | ~2019-06-11 | XMS | Encounter Summary ---
Demographics + + + | Address | [address] | | | [place] [address] | + + + | Home Phone | | + + + | Preferred Language | Unknown | + + + | Marital Status | | + + + | Moravian Affiliation | Unknown | + + + | Race | Unknown | + + + | Ethnic Group | Unknown | + + + Author + + + | Author | [facility] | | | and [place] | + + + | Organization | [facility] | | | and [place] | + + + | Address | Unknown | + + + | Phone | Unavailable | + + + Support + + + + + | Name | Relationship | Address | Phone | + + + + + | Lamar Phillips | REZA | [place] [address] | | + + + + + Care Team Providers + +------+ + | Care Emergency Room Registered Nurse Name | Role | Phone | [...] neoplasm of | Mike C, | [address] [place] | | | | | rectum (HCC) | MD [address] | [place], | | | | | Procedures | [address] | [place] [address] | | | | | [place] | [place], | Phone: | | | | | [place] | [place] [address] | [phone] | | | | | INJECTION, | Phone: | Fax: | | | | | 500 MG [place] | [phone] | [phone] | | | | | ONDANSETRON | Fax: | | | | | | HCL | [phone] | | | | | | INJECTION, [...] | | | | | 1 MG NC | | | | | [...] | | | | | 20 MG NC | | | | | [...] | | | | | 12.5 MG NC | | | | | [...] + + | 12/27/ | Hospital | [facility] | Janel, | Rectal cancer (HCC) | | 2017 | Encounter | MED CTR CHEMO | Mike White MD [address] | | | | | [address] | [address] [facility] | | | | | [place], | [place] [address] | | | | | [place] [address] | [phone] | | | | | [phone] | | | +--------+ + + + [...] encounter Progress Notes Mery Marcial RN - 12/27/2016 3:43 PM PDTPatient discharged to home with CADD pump i nfusing. She is in good condition and discharged with sister. She will have pump off in , [place] on Tuesday. She denies questions or concerns, AVS given. documented in this encounter Plan of Treatment Not on filedocumented as of this encounter Procedures + +--------+ + + + | Procedure Name | Priori | Date/Time | Associated Diagnosis | Comments | | | ty | | | | + +--------+ + + + | LACTATE | STAT | 12/27/2016 | Rectal cancer | Results for this | | DEHYDROGENASE | | 10:25 AM | (HCC) | procedure are in the | | | | PDT | | results section. | + +--------+ + + + | COMPREHENSIVE | STAT | 12/27/2016 | Rectal cancer | Results for this | | METABOLIC PANEL | | 10:25 AM | (HCC) | procedure are in the | | | | PDT | | results section. | + +--------+ + + + | CBC WITH | STAT | 12/27/2016 | Rectal cancer | Results for this | | DIFFERENTIAL | | 7:45 AM | (HCC) | procedure are in the | | | | PDT | | results section. | + +--------+ + + + documented in this encounter Results Comprehensive Metabolic Panel (12/27/2016 10:25 AM PDT) + + + + [...] + + + + | Glucose | 78 | 70 - 109 mg/dL | [facility] | | | | | [facility] | | | | [facility] | | | | | | C[facility] - | | | | | | LABORATORY | | + + + + + + | BUN | 10 | 7 - 18 mg/dL | [facility] | | | | | [facility] | | | | | | [facility] | | | | | | CENTER - | | | | | | LABORATORY | | + + + + + + | Creatinine | 0.61 | 0.60 - 1.30 | [facility] | [...] | mL/min/1.73m2 | [facility] | | | SPANISH | RATE,ESTIMATED | | MEDICAL | | | | mL/min/1.97r7Apzd than | | CENTER - | | [...] + + + + | Total | 6.5 | 6.0 - 7.8 g/dL | [facility] | | | Protein | | | [facility] | | | | | | MEDICAL | | | | | | CENTER - | | | | | | LABORATORY | | + + + + + + | AST | 29Comment: This is an | 10 - 42 [...] + + + + | Alkaline | 108Comment: This is an | 40 - 110 [...] [address] | [place] | [phone] | | [facility] | | [address] | | | - LABORATORY | | | | + + + + + Lactate Dehydrogenase (12/27/2016 10:25 AM PDT) + +-------+ + + + | Component | Value | Ref Range | Performed | Pathologist | | | | | At | Signature | + +-------+ + + + | LDH TOTAL | 168 | 91 - 180 U/L | [facility] [...] ST. | [address] | [place], [place] | [phone] | | [facility] | | [address] | | | - LABORATORY | | | | + + + + + CBC with Differential (12/27/2016 7:45 AM PDT) + + + + + + | Component | Value | Ref Range | Performed | Pathologist | | | | | At | Signature | + + + + + + | WBC | 6.9 | 4.0 - 11.0 K/uL | [facility] | | | | | | [facility] | | | | | | MEDICAL | | | | | | CENTER - | | | | | | LABORATORY | | + + + + + + | RBC | 4.45 | 3.70 - 5.20 | [facility] | | | | | M/uL | [facility] | | | | | | MEDICAL | | | | | | CENTER - | | | | | | LABORATORY | | + + + + + + | Hemoglobin | 11.7 | 11.5 - 16.0 | [facility] | | | | | g/dL | [facility] | | | | | | MEDICAL | | | | | | CENTER - | | | | | | LABORATORY | | + + + + + + | Hematocrit | 36.1 | 34.0 - 47.0 % | [facility] | | | | | | [facility] | | | | | | MEDICAL | | | | | | CENTER - | | | | | | LABORATORY | | + + + + + + | MCV | 81.1 (L) | 83.0 - 101.0 fL | [facility] | | | | | | [facility] | | | | | | MEDICAL | | | | | | CENTER - | | | | | | LABORATORY | | + + + + + + | MCH | 26.3 (L) | 28.0 - 35.0 pg | [facility] | | | | | | [facility] | | | | | | MEDICAL | | | | | | CENTER - | | | | | | LABORATORY | | + + + + + + | MCHC | 32.4 | 32.0 - 36.0 | [facility] | | | | | g/dL | [facility] | | | | | | MEDICAL | | | | | | CENTER - | | | | | | LABORATORY | | + + + + + + | RDW-CV | 22.8 (H) | <15.0 % | [facility] | | | | | | [facility] | | | | | | MEDICAL | | | | | | CENTER - | | | | | | LABORATORY | | + + + + + + | Platelet | 271 | 140 - 440 K/uL | [facility] | | | Count | | | [facility] | | | | | | MEDICAL | | | | | | CENTER - | | | | | | LABORATORY | | + + + + + + | MPV | 6.9 | fL | [facility] | | | | | | [facility] | | | | | | MEDICAL | | | | | | CENTER - | | | | | | LABORATORY | | + + + + + + | % | 66.9 | 45.0 - 82.0 % | [facility] | | | Neutrophils | | | [facility] | | | | | | MEDICAL | | | | | | CENTER - | | | | | | LABORATORY | | + + + + + + | % | 16.3 (L) | 20.0 - 45.0 % | [facility] | | | Lymphocytes | | | [facility] | | | | | | MEDICAL | | | | | | CENTER - | | | | | | LABORATORY | | + + + + + + | % Monocytes | 11.0 | 4.0 - 12.0 % | [facility] | | | | | | [facility] | | | | | | MEDICAL | | | | | | CENTER - | | | | | | LABORATORY | | + + + + + + | % | 5.1 (H) | 0.0 - 5.0 % | [...] + + + + | Absolute | 4.60 | 1.80 - 8.50 | [facility] | [...] | Absolute | 0.40 | 0.00 - 0.40 | [facility] | | | Eosinophils | | K/uL | [facility] | | | | | | MEDICAL | | | | | | CENTER - | | | | | | LABORATORY | | + + + + + + | Absolute | 0.10 | 0.00 - 0.10 | [facility] | | | Basophils | | K/Rhett | [facility] | | | | [...] [address] | [place] | [phone] | | [facility] | | [address] | | | - LABORATORY | | [...] 4,050 mg in sodium | Given | 12/27/ | 4,050 mg | 2 mL/hr | | | chloride 0.9% 11 mL CADD PUMP | | 17 3:35 | | | | | chemo infusion [...] | | | | | | on 12/27/16 at 1445, | | | | | | | [...] 150 mg in | New Bag | 12/28/19 | 150 mg | 450 | | | sodium chloride 0.9% 150 mL IVPB | | 17 12:11 | | mL/hr | | | 150 mg, Intravenous, Administer | | PM PDT | | | | | over 20 Minutes, ONCE, Tue | | | | | | | 12/27/16 at 1200, For 1 dose, Do | | | | | | | not shake bag., | | | | | | + +---------+ +--------+-------+---+ +---+---+ | | | +---+---+ + +---------+ +--------+--------+---+ | leucovorin 340 mg in dextrose | New Bag | 12/28/19 | 340 mg | 133.5 | | | 5% 250 mL infusion 340 mg | | 17 1:06 | | mL/hr | | | (rounded from 338 mg = 200 mg/m2 | | PM PDT | | | | | | | | | | | | 1.69 m2 Order-specific BSA), | | | | | | | Intravenous, Administer over 2 | | | | | | | Hours, ONCE, Tue12/27/16 at 1215, | | | | | | | For 1 dose, Administer via y-site | | | | | | | with oxaliplatin, | | | | | | + +---------+ +--------+--------+---+ +---+---+ | | | +---+---+ + +---------+ +---+-------+---+ | ondansetron (ZOFRAN) 8 mg, | New Bag | 12/28/19 | | 204 | | | dexamethasone (DECADRON) 4 mg in | | 17 11:51 | | mL/hr | | | sodium chloride 0.9% 50 mL IVPB | | AM PDT | | | | | Intravenous, Administer over 16 | | | | | | | Minutes, ONCE, 12/27/16 at | | | | | | | 1145, For 1 dose, Administer 30 | | | | | | | minutes prior to chemotherapy., | | | | | | + +---------+ +---+-------+---+ +---+---+ | | | +---+---+ + +---------+ +--------+-------+---+ | oxaliplatin (ELOXATIN) 135 mg | New Bag | 12/28/19 | 135 mg | 125 | | | in dextrose 5% 223 mL chemo | | 17 1:06 | | mL/hr | | | infusion 135 mg (rounded from | | PM PDT | | | | | 135.2 mg = 80 mg/m2 | | | | | | | 1.69 m2 Order-specific BSA), | | | | | | | Intravenous, Administer over 2 | | | | | | | Hours, ONCE, 12/27/16 at 1215, | | | | | | | [...]
--- OUTSIDE RECORDS SUMMARY | ~2019-06-11 | XMS | Encounter Summary ---
Demographics + + + | Address | [address] | | | [place] [address] | + + + | Home Phone [...] Team Providers + +------+ + | Care Crown Blocker Name | Role | Phone | + [...] | Discussion | | 2017 | | [place] [address] | [address] | | | | | [address] | [place] [facility], | | | | | Mailcode: [facility] [address] | | | | | for [facility] and | [phone] | | | | | [facility] 2 | | | | | | [place], [place] | | | | | | [address] | | | | | | [phone] | | | +--------+ + + + [...] | | | | | Amita Hines [place], | | | | | | [place] [address] | | | | | | [phone] | | | | | | | | +--------+---------+ + + + documented as of this encounter Visit Diagnoses Not on filedocumented in this encounter"
--- OUTSIDE RECORDS SUMMARY | ~2019-06-11 | XMS | Encounter Summary ---
Demographics + + + | Address | [address] | | | [place] [address] | + + + | Home Phone [...] | Organization | [facility] | | | and [place] | + + + | Address | Unknown | + + + | Phone | Unavailable | + + + Support + + + + + | Name | Relationship | Address | Phone | + + + + + | Lamar Phillips | ECON | [place] [address] | | + + + + + Care Team Providers + +------+ + | Care General Pediatrician Name | Role | Phone | + [...] [address] | | | | | [address] | [address] | [address] [place] | | | | | | [place], | [place], [place] | | | | | | [place] | [address] Phone: | | | | | | [address] | [phone] | | | | | | Phone: | Fax: | | | | | | [phone] | [phone] | | | | | | Fax: | | | | | | | [phone] | | +--------+--------+ + + + + Encounter Details +--------+ + + + + | Date | Type | Department | Care Team | Description | +--------+ + + + + | 01/02/ | Hospital | [facility] | Janel, | Rectal cancer (HCC); | | 2018 | Encounter | MED CTR MEDICAL | Mike White MD [address] | Lichen sclerosus | | | | ONCOLOGY CLINIC [address] [place] | | | | | [address] [place] | [place] [address] | | | | | [place] [address] | [phone] | | | | | [phone] | | | +--------+ + + + [...] from the original. Hematology/Oncology Progress Note [facility] [place] Pt. Name/Age/: Paulette Byrnes 57 y.o. 1960 Med. Record Number: [id number] Date of admission: 01/02/2018 The patient's primary care provider is Kristian [place] DO. Identifying Statement: Paulette Byrnes is a 57 y.o. female from [address] [place] [address] with Locally Advanced Rectal Cancer. The patient chart and medications were reviewed in detail and the patient was seen and exam ined. History of Present Illnesses, their Current Assessments and Plans: Problem List Lichen sclerosus Overview ACTIVE DIAGNOSIS: Lichen Sclerosis of the Vulva. 1. Presentation with Dyspareunia in February 2010. 2. PAP and vulvar biopsy March 19, 2010 (Rene). Pathological specimens; PAP #[id number] "n egative for intraepithelial lesions or malignancy." Biopsy #[id number] "freatures consistent with lichen sclerosis." 3. Treatment with clobetasol 0.05% with improvement. 4. Consultation by Dr. Rossana Knowles, June 2016-Lichen sclerosis exacerbated by urinary and fecal incontinence. Rectal cancer Overview ACTIVE DIAGNOSIS: Locally Advanced Rectal Cancer, [id number], Stage IIA. 1. Paulette presented to the [facility] emergency room on July 20, [...] cm within the rectum. Biopsy specimen number [id number] evaluated by Dr. Felipe Nixon of [facility] was notable for a tubular adenoma without high-grade dysplasia or overt carcinoma. This proced ure also included a full colonoscopy through the ostomy were 2 additional polyps were remove d, a tubular adenoma at 35 cm and a hyperplastic polyp at [address] C/A/P at [facility] in [place], [place] demonstrated no evidence of metastatic disease. 4. On September 22, 2016 Dr. Thacker placed in internal jugular Port-A-Cath without complications. 5. MRI of pelvis performed on October 05, 2016 at [facility]: Rectal mass 7.7 cm x 6.2 cm x 9.6 cm in length located within 3 cm of the anal sphincter and 6.4 cm from the anal verge with radi ographic extension though multiple areas of the bowel wall. 6. CT abdomen/pelvis also at [facility] October 05, 2016; large almost completely circumferential r ectosigmoid mass better delineated on the corresponding MRI with adjacent probable abscess. No distant metastases identified. 7. On October 14, 2016 Paulette was evaluated by Dr. Ailyn Wolff and Dr. Shea Mcneill of the [facility] where her case was presented to their tumor board. Clinical exa m is notable for an overt rectal carcinoma invading into the vagina. 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 Concerns raised by the [facility] Tumor Board were that the prior [...] as well as mutation analysis." Pathological Specimen #[id number] ([facility]). Tubulovillous adenoma with [...] radiation. 14. Multidisciplinary Care Team Conference at [facility] March 10, 2017; "Given borderline [...] resection by Dr. Ailyn Wolff at the [facility]: 06/30/17: Exploratory laparoto my. Extensive lysis of adhesions. Excision of left lower quadrant fistula tract. Total mesor ectal excision, intersphincteric abdominoperineal resection, en bloc resection of left ovary and left fallopian tube and posterior vaginal wall. Placement of a 19-Vincentian Albert drain th rough the right lower [...] August 12, 2017; [facility], [place], [place] ; positive for perianal fistula between anus and vagina. 22. Clinical exam on August 22, [address] Ailyn Wolff at [facility] who could not confirm the prese nce of perianal fistula. 23. Cycle # 11 FOLFOX on August 23, 2017. 24. Cycle #12 FOLFOX on September 05, 2017. 25. Port-a-cath removed by Dr. Marty Thacker. 26. CT chest/abdomen/pelvis ([facility], [place]) on September 26, 2017; marked reduction of large central rectal/perirectal mass, very small residual fluid collection with adjacent fat stra nding which may represent short residual Velasquez's pouch, residual postoperative fluid or re sidual necrotic tumor. 27. MRI of pelvis September 28, 2017 ([facility], [place], [place]); Small gas and fluid collection in the presacral space, concerning for abscess formation. Postoperative changes of low anterior re section, with left lower quadrant end colostomy. Left lower quadrant parastomal hernia. Current Assessment & Plan Paulette Brynes returned to clinic on 01/02/2018 with a director technical for follow up of her locally advanced rectal cancer. Interval history is notable for the fact that Dr. Thacker electively removed Paulette's port-a-ca th. Interval history is also notable for the fact that Paulette had an encounter with her surgeon, Dr. Ailyn Wolff at [facility]. Dr. Wolff has asked Paulette to follow up with him in [place] every three sonya hs. Assessment; Locally advanced rectal cancer, status post 10 cycles of neoadjuvant FOFLOX, fo llowed by definitive surgery on May 16, 2017, followed by two adjuvant cycles of FOLFOX completed on September 05, 2017. Plan; Paulette will follow up with Dr. Wolff in [place] every three months. Currently, follow-up in medical [...] this chart may have been created with Phloronol voice recognition software. Occasi onal wrong-word or [...] [address] | [place] | [phone] | | [facility] | | [address] | | | - LABORATORY | | [...] + | [facility] | [address] | [place] | [phone] | | [facility] | | [address] | | | - LABORATORY | | [...] | mL/min/1.73m2 | [facility] | | | [place] | RATE,ESTIMATED | | MEDICAL | | | | mL/min/1.88n2Sjnd than | | CENTER - | | [...] [address] | [place] | [phone] | | [facility] | | [address] | | | - LABORATORY | | [...] [address] | [place] | [phone] | | [facility] | | [address] | | | - LABORATORY | | [...] [address] | [place] | [phone] | | [facility] | | [address] | | | - LABORATORY | | [...]
--- OUTSIDE RECORDS SUMMARY | ~2019-06-11 | XMS | Encounter Summary ---
Demographics + + + | Address | [address] | | | [place] [address] | + + + | Home Phone [...] + | Organization | [facility] | | | and [place] | + + + | Address | Unknown | + + + | Phone | Unavailable | + + + Support + + + + + | Name | Relationship | Address | Phone | + + + + + | Lamar Phillips | REZA | [place] [address] | | + + + + + Care Team Providers + +------+ + | Care Ultrasound Technologist Sonographer Name | Role | Phone | + +------+ + | Kristian [place] DO | PCP | | + +------+ + Encounter Details +--------+ + + + + | Date | Type | Department | Care Team | Description | +--------+ + + + + | 12/15/ | Hospital | [facility] | Joel Alfaro DO | Rectal cancer (HCC) | | 2017 | Encounter | MED CTR CHEMO | [address] | | | | | INFUSION [address] | [place], [place] | | | | | [place], | [address] | | | | | [place] [address] | | | | | | [phone] | | | +--------+ + + + [...]
--- OUTSIDE RECORDS SUMMARY | ~2019-06-11 | XMS | Encounter Summary ---
Demographics + + + | Address | [address] | | | [place] [address] | + + + | Home Phone [...] Team Providers + +------+ + | Care Heel Nailing Machine Operator Name | Role | Phone | + +------+ + | Kristian [place] DO | PCP | | + +------+ + Encounter Details +--------+ + + + + | Date | Type | Department | Care Team | Description | +--------+ + + + + | 04/21/ | Procedure | 6A Intra Op [facility] | | | | 2016 | Pass [facility] | | | | | | Admitting Desk | | | | | | Located on the 9th | | | | | | floor [address] | | | | | | [address] | | | | | | [place], [place] | | | | | | [address] | | | +--------+ + + + [...] | | | | | Amita H[place], | | | | | | [place] [address] | | | | | | [phone] | | | | | | | | +--------+---------+ + + + documented as of this encounter Visit Diagnoses Not on filedocumented in this encounter"
--- OUTSIDE RECORDS SUMMARY | ~2019-06-11 | XMS | Encounter Summary ---
Demographics + + + | Address | [address] | | | [place] [address] | + + + | Home Phone [...] Providers + +------+ + | Care Chief Underwriter Name | Role | Phone | [...] at [facility] [address] | [address] | - Disregard | | | | [address] | [place], | | | | | Mailcode: [place] | [place] [address] | | | | | for Health and | [phone] | | | | | [facility] 2 | | | | | | [place], [place] | | | | | | [address] | | | | | | [phone] | | | +--------+ + + + [...] | | | | | Amita Hines [place], | | | | | | [place] [address] | | | | | | [phone] | | | | | | | | +--------+---------+ + + + documented as of this encounter Visit Diagnoses Not on filedocumented in this encounter"
--- OUTSIDE RECORDS SUMMARY | ~2019-06-11 | XMS | Encounter Summary ---
Demographics + + + | Address | [address] | | | [place] [address] | + + + | Home Phone [...] Team Providers + +------+ + | Care Decal Applier Name | Role | Phone | + [...] Radiology Order | | 2018 | | [place] [address] [address] | [address] | | | | | [address] [place], | | | | | Mailcode: [place] | [place] [address] | | | | | for Health and | [phone] | | | | | [facility] 2 | | | | | | [place], [place] | | | | | | [address] | | | | | | [phone] | | | +--------+ + + + [...] | | | | | [place], | | | | | | [place] [address] | | | | | | [phone] | | | | | | | | +--------+---------+ + + + documented as of this encounter Visit Diagnoses Not on filedocumented in this encounter"
--- OUTSIDE RECORDS SUMMARY | ~2019-06-11 | XMS | Encounter Summary ---
Demographics + + + | Address | [address] | | | [place] [address] | + + + | Home Phone [...] Team Providers + +------+ + | Care Telemarketing Fundraiser Name | Role | Phone | + +------+ + | Kristian [place] DO | PCP | | + +------+ + Encounter Details +--------+ + + + + | Date | Type | Department | Care Team | Description | +--------+ + + + + | 07/19/ | Mrb Engineer | [facility] | Trin[place], | | | 2016 | | Center at [facility] [address] | AGACNP [address] | | | | | [address] | [address] [facility] [place] | | | | | Mailcode: [place] | [address] | | | | | for Health and | | | | | | [facility] 2 | | | | | | [facility] [place] | | | | | | [address] | | | | | | [phone] | | | +--------+ + + + [...] | | | | | Amita Hines [place], | | | | | | [place] [address] | | | | | | [phone] | | | | | | | | +--------+---------+ + + + documented as of this encounter Visit Diagnoses Not on filedocumented in this encounter"
--- OUTSIDE RECORDS SUMMARY | ~2019-06-11 | XMS | Encounter Summary ---
Demographics + + + | Address | [address] | | | [place] [address] | + + + | Home Phone [...] Team Providers + +------+ + | Care Connie Scratcher Name | Role | Phone | + [...] Report | | 2017 | on | [place] at [facility] [address] | [address] | (GI Oncology | | | | [address] | [place]mita Hines [place], | Planning Conference) | | | | Mailcode: [place] | [place] [address] | | | | | for Health and | [phone] | | | | | [facility] 2 | | | | | | [place], [place] | | | | | | [address] | | | | | | [phone] | | | +--------+ + + + [...] | | | | | [place], | | | | | | [place] [address] | | | | | | [phone] | | | | | | | | +--------+---------+ + + + documented as of this encounter Visit Diagnoses Not on filedocumented in this encounter"
--- OUTSIDE RECORDS SUMMARY | ~2019-06-11 | XMS | Encounter Summary ---
Demographics + + + | Address | [address] | | | [place] [address] | + + + | Home Phone | | + + + | Preferred Language | Unknown | + + + | Marital Status | | + + + | Anglican Affiliation | Unknown | + + + | Race | Unknown | + + + | Ethnic Group | Unknown | + + + Author + + + | Author | [facility] | | | and [place] | + + + | Organization | [facility] | | | and [place] | + + + | Address | Unknown | + + + | Phone | Unavailable | + + + Support + + + + + | Name | Relationship | Address | Phone | + + + + + | Lamar Phillips | REZA | [place] [address] | | + + + + + Care Team Providers + +------+ + | Care Wafer Mounter Name | Role | Phone | + [...] + + | 11/01/ | Hospital | [facility] | [facility], | Rectal cancer (HCC) | | 2017 | Encounter | [facility] | Sirena White MD [address] | (Primary Dx); [place] | | | | [facility] [address] [place] | sclerosus | | | | [address] [place] | [place] [address] | | | | | [place] [address] | [phone] | | | | | [phone] | | | +--------+ + + + [...] nt from the original. Hematology/Oncology Progress Note [facility] LETY Cheema Pt. Name/Age/: Paulette Byrnes 55 y.o. 1960 Med. Record Number: [id number] Date of admission: 11/01/2016 The patient's primary care provider is Kristian Anderson DO. Identifying Statement: Paulette Byrnes is a 55 y.o. female from [address] [place] [address] with Locally Advanced Rectal Cancer. The patient [...] March 19, 2010 (Rene). Pathological specimens; PAP #[id number] "n egative for intraepithelial lesions or malignancy." Biopsy #[id number] "freatures consistent with lichen sclerosis." 3. Treatment with clobetasol 0.05% with improvement. 4. Consultation by Dr. Rossana Knowles, June 2016-Lichen sclerosis exacerbated by urinary and fecal incontinence. Rectal cancer Overview ACTIVE DIAGNOSIS: Locally Advanced Rectal Cancer. 1. Paulette presented to the [facility] emergency room on July 20, 2016 with [...] cm within the rectum. Biopsy specimen number [id number] evaluated by Dr. Felipe Nixon of [facility] was notable for a tubular adenoma without high-grade dysplasia or overt carcinoma. This proced ure also included a full colonoscopy through the ostomy were 2 additional polyps were remove d, a tubular adenoma at 35 cm and a hyperplastic polyp at [address] C/A/P at [facility] in [place], [place] demonstrated no evidence of metastatic disease. 4. On September 22, 2016 Dr. Thacker placed in internal jugular Port-A-Cath without complications. 5. On October 14, 2016 Paulette was evaluated by Dr. Ailyn Wolff and Dr. Shea Mcneill of the [facility] where her case was presented to their tumor board. Clinical exa m is notable for an overt rectal carcinoma invading into the vagina. 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 Concerns raised by the [facility] Tumor Board were that the [...] oncoplastic surgery by Dr. Ailyn Wolff of [facility]. Insurance authorization for Ferrlecit to be c [...] for discharge (Not Released) Pump off in michael QFU CBC,CMP, LDH, CEA * PORT DRAW [...] this chart may have been created with Emissary voice recognition software. Occasi onal wrong-word or [...]
--- OUTSIDE RECORDS SUMMARY | ~2019-06-11 | XMS | Encounter Summary ---
Demographics + + + | Address | [address] | | | [place] [address] | + + + | Home Phone [...] Team Providers + +------+ + | Care Hogshead Opener Name | Role | Phone | + +------+ + | Kristian Anderson DO | PCP | | + +------+ + Encounter Details +--------+ + + + + | Date | Type | Department | Care Team | Description | +--------+ + + + + | 10/14/ | Telephone | [facility] | Ailyn Wolff MD | | | 2017 | | [place] at [facility] [address] | [address] | | | | | [address] | [place], | | | | | Mailcode: [place] | [place] [address] | | | | | for Health and | [phone] | | | | | [place] [address] | | | | | | [place], [place] | | | | | | [address] | | | | | | [phone] | | | +--------+ + + + [...] | | | | | [place], | | | | | | [place] [address] | | | | | | [phone] | | | | | | | | +--------+---------+ + + + documented as of this encounter Visit Diagnoses Not on filedocumented in this encounter"
--- OUTSIDE RECORDS SUMMARY | ~2019-06-11 | XMS | Encounter Summary ---
Demographics + + + | Address | [address] | | | [place] [address] | + + + | Home Phone [...] Team Providers + +------+ + | Care Clearance Representative Name | Role | Phone | + +------+ + | Kristian Anderson DO | PCP | | + +------+ + Encounter Details +--------+ + + + + | Date | Type | Department | Care Team | Description | +--------+ + + + + | 10/05/ | Abstract | Dig[facility]ive [facility] | Ailyn Wolff MD | | | 2017 | | [place] at [facility] [address] | [address] | | | | | [address] | [place], | | | | | Mailcode: [place] | [place] [address] | | | | | [facility] and | [phone] | | | | | [facility], [facility] [address] | | | | | | [place], [place] | | | | | | [address] | | | | | | [phone] | | | +--------+ + + + [...] | | | | | [place], | | | | | | [place] [address] | | | | | | [phone] | | | | | | | | +--------+---------+ + + + documented as of this encounter Visit Diagnoses Not on filedocumented in this encounter"
--- OUTSIDE RECORDS SUMMARY | ~2019-06-11 | XMS | Encounter Summary ---
Demographics + + + | Address | [address] | | | [place] [address] | + + + | Home Phone [...] Providers + +------+ + | Care Well Driller Helper Name | Role | Phone | [...] Notes | | 2016 | | at [facility] [address] | | (Lodging) | | | | [place] | | | | | | [place] | | | | | | [place], [place] | | | | | | [address] | | | | | | [phone] | | | +--------+ + + + [...] | | | | | [place], | | | | | | [place] [address] | | | | | | [phone] | | | | | | | | +--------+---------+ + + + documented as of this encounter Visit Diagnoses Not on filedocumented in this encounter"
--- OUTSIDE RECORDS SUMMARY | ~2019-06-11 | XMS | Encounter Summary ---
Demographics + + + | Address | [address] | | | [place] [address] | + + + | Home Phone | | + + + | Preferred Language | Unknown | + + + | Marital Status | | + + + | Mormon Affiliation | Unknown | + + + | Race | Unknown | + + + | Ethnic Group | Unknown | + + + Author + + + | Author | [facility] | | | and [place] | + + + | Organization | [facility] | | | and [place] | + + + | Address | Unknown | + + + | Phone | Unavailable | + + + Support + + + + + | Name | Relationship | Address | Phone | + + + + + | Lamar Phillips | REZA | [place] [address] | | + + + + + Care Team Providers + +------+ + | Care Municipal Bond Trader Name | Role | Phone | + [...] + + | 03/21/ | Hospital | [facility] | [facility], | Rectal cancer (HCC) | | 2017 | Encounter | [facility] | Sirena White MD [address] | | | | | [facility] CLIN[facility] [address] | [facility] | | | | | [address] [facility] | [place] [address] | | | | | [place] [address] | [phone] | | | | | [phone] | | | +--------+ + + + [...] + + + | Blood Pressure | 133/84 | 03/21/2017 10:19 AM | | | | | PDT | | + + + + + | Pulse | 77 | 03/21/2017 10:19 AM | | | | | PDT | | + + + + + | Temperature | 36.3 C (97.3 F) | 03/21/2017 10:19 AM | | | | | PDT | | + + + + + | Respiratory Rate | 16 | 03/21/2017 10:19 AM | | | | | PDT | | + + + + + | Oxygen Saturation | 97% | 03/21/2017 10:19 AM | | | | | PDT | | + + + + + | Inhaled Oxygen | - | - | | | Concentration | | | | + + + + + | Weight | 71.1 kg (156 lb 11.2 | 03/21/2017 10:19 AM | | | | oz) | PDT | | + + + + + | Height | - | - | | + + + + + | Body Mass Index | 26.9 | 10/18/2016 11:04 AM | | | [...] encounter Progress Notes Sirena Helton MD - 03/21/2017 10:07 AM PDTFormatting of this note might be differe nt from the original. Hematology/Oncology Progress Note Located Within [facility] LETY Cheema Pt. Name/Age/: Paulette Byrnes 56 y.o. 1960 [facility]. Record Number: [id number] Date of admission: 03/21/2017 The patient's primary care provider is Kristian Anderson DO. Identifying Statement: Paulette Byrnes is a 56 y.o. female from [address] [place] [address] with Locally Advanced Rectal Cancer. The patient chart and medications were reviewed in detail and the patient was seen and exam ined. History of Present Illnesses, their Current Assessments and Plans: Problem List Rectal cancer Overview ACTIVE DIAGNOSIS: Locally Advanced Rectal Cancer. 1. Paulette presented to the [facility] emergency room on July 20, 2016 [...] of the pelvic abscess, placement of a Dee-Ivory drain, and performed a left lower quadrant colostomy for diversion. No pathological samples were obtained from this procedure. The rayshawn gotti was discharged and allowed to recover. 2. Repeat evaluation by Dr. Thacker with colonoscopy on September 02, 2016 included a rigid pro ctoscopy that demonstrated a circumferential rectal tumor at 6 cm within the rectum. Biopsy specimen number [id number] evaluated by Dr. Felipe Nixon of [facility] was notable for a tubular adenoma without high-grade dysplasia or overt carcinoma. This proced ure also included a full colonoscopy through the ostomy were 2 additional polyps were remove d, a tubular adenoma at 35 cm and a hyperplastic polyp at [address] C/A/P at [facility] in [place], [place] demonstrated no evidence of metastatic disease. 4. On September 22, 2016 Dr. Thacker placed in internal jugular Port-A-Cath without complications. 5. MRI of pelvis performed on October 05, 2016 at [facility]: Rectal mass 7.7 cm x 6.2 cm x 9.6 cm in length located within 3 cm of the anal sphincter and 6.4 cm from the anal verge with radi ographic extension though multiple areas of the bowel wall. 6. CT abdomen/pelvis also at [facility] October 05, 2016; large almost completely [...] a rectal cut aneous fistula and a Dee-Ivory drain was found to be within the [...] as well as mutation analysis." Pathological Specimen #[id number] (Nixon, [facility]). Tubulovillous adenoma with high grade [...] mg/m/day. 14. Multidisciplinary Care Team Conference at [facility] March 10, 2017; "Given borderline resec tability, give 6 more cycles of FOLFOX, restage with MRI, followed by posterior exenteration (abdominoperineal resection, hysterectomy, posterior vaginectomy, and VRAM). Low anterior m ay not be able to resect all of this. She may need intraop radiation therapy." 15. Cycle # 7 FOLFOX March 21, 2017. Current Assessment & Plan Paulette Byrnes returned to clinic on 03/21/2017 with a manager of business for follow-up and Cyc le #7 FOLFOX chemotherapy. Interval history is notable for the fact that Paulette was re-evaluated by Dr. Ailyn Wolff and [facility] multidisciplinary care team at [facility]. The consensus was that disease had improved, but qiana ined unresectable. Six additional cycles of FOLFOX were recommended followed by repeat evalu ation at [facility] for resection in May,. Chief Complaint today is increased output from the dee ivory drain in the left lower qu adrant of the abdomen, which coincided with completing a course of Flagyl. This was the drai n initially inserted by Dr. Rust on July 20, 2016 which remains in situ. Clinical exam in notable for serosanguinous drainage in th dee ivory drain bulb. She zavala s gained 5 pounds. Laboratory exam is negative for leukocytosis. Assessment; locally advanced rectal cancer. Plan; Proceed with Cycle #7 of a planned 12 cycles of FOLFOX followed by comprehensive reev aluation by Dr. Wolff and his team at [facility]. Monitor for signs and symptoms of infection arising from pelvic abscess, re-initiate antibi otics when appropriate. Review of Systems: Constitutional: Reports energy level is improved. Reports intermittent nausea continues. Ap petite is varied, some days she is very hungry, other days not so hungry. Denies high fever s, shaking chills, anorexia, vomiting, weight loss, or night sweats. Ear, Nose, Mouth, Throat: Denies odynophagia, dysphagia, or tinnitus. Cardiovascular: Denies shortness of breath, dyspnea on exertion, chest pain, palpitations o r orthopnea. Respiratory: Denies cough, hemoptysis, or sputum production. Gastrointestinal: Reports left abdominal pain intermittently. States colostomy is draining well.Denies constipation, diarrhea, melena, or bright red blood per rectum. Genitourinary: Denies hematuria or dysuria. Musculoskeletal: Denies joint pain or tenderness. Neurologic: Reports she has bone spurs in neck and if she moves wrong it sends shooting jayant n down left side of body. Denies headache, visual changes. Endocrine: Denies peripheral edema or heat/cold intolerance. Hematologic: Denies spontaneous bruising or bleeding. Integumentary: Reports continues to have drainage outside of colostomy with drain tube, fin ished antibiotics around 03/02/17. Denies rash or wounds. Pain: Denies pain. Note: Here for follow [...] (FLAGYL) 500 MG tablet Take 1 tablet with (8oz) glass of clear liquid at 1 pm, 2 pm and 11 pm the day before surgery. metroNIDAZOLE (FLAGYL) 500 MG tablet Take by mouth. Multiple Vitamins-Minerals (MULTIVITAMIN ADULT PO) Take by mouth. mupirocin (BACTROBAN) 2% ointment Apply topically 2 times daily. nystatin (MYCOSTATIN) powder Apply topically as needed. ondansetron (ZOFRAN ODT) 8 mg disintegrating tablet Take 8 mg by mouth every 8 hours as needed for Nausea. potassium chloride (K-DUR) 20 mEq ER tablet Take 1 tablet by mouth Daily. tolterodine (DETROL) 2 MG tablet Take 1 tablet by mouth 2 times daily. 60 tablet 0 No current facility-administered medications for this encounter. Facility-Administered Medications Ordered in Other Encounters Medication Dose Route Frequency Provider Last Rate Last Dose fluorouracil 4,250 mg in sodium chloride 0.9% 9 mL CADD PUMP infusion 2,400 mg/m2 (Micah atment Plan Recorded) Intravenous Q46H Sirena Helton MD leucovorin 350 mg in dextrose 5% 250 mL infusion 200 mg/m2 (Treatment Plan Recorded) I ntravenous Once Sirena Helton MD 133.8 mL/hr at 03/21/17 1125 350 mg at 03/21/17 112 5 oxaliplatin (ELOXATIN) 142.5 mg in dextrose 5% 221.5 mL infusion 80 mg/m2 (Treatment P mónica Recorded) Intravenous Once Sirena Helton MD 125 mL/hr at 03/21/17 1126 142.5 mg at 03/21/17 1126 Allergies: Allergy: Allergies Allergen Reactions Propoxyphene Na [...] Objectives: Temp: 36.3 C (97.3 F) BP: 133/84 Pulse: 77 Resp: 16 SpO2: 97 % on Min/Max Temp past 24 hours:Temp Av.3 C (97.3 F) Min: 36.3 C (97.3 F) Max: 3 6.3 C (97.3 F) No intake or output data in the 24 hours ending 03/21/17 1259 Wt. Admission: Weight: 71.1 kg (156 lb 11.2 oz) Wt. Current: Weight: 71.1 kg (156 lb 11 .2 oz) Wt Readings from Last 3 Encounters: 03/21/17 71.1 kg (156 lb 11.2 oz) 02/14/17 69.1 kg (152 lb 4.8 oz) 02/07/17 68.8 kg (151 lb 9.6 oz) Physical Exam: General: The patient is [...] in the midline with well perfused stoma. Dee Ivory drain in the left lowe r quadrant; exit site has no erythema and no discharge. There is 10 cc of clear serosanguin ous fluid. Extremities: Nontender, no erythema, no edema. [...] Fransisca Baltazar., Chayito Roque., Thaddeus, TLuis Alfredo., Eboni MontesT., Danielle, P .P.: Toxicity And Response Criteria [...] for PAULETTE BYRNES ( ) as of 03/21/2017 10:48 Ref. Range 03/21/2017 09:44 WBC Latest Ref Range: 4.0 - 11.0 K/uL 4.5 RBC: Latest Ref Range: 3.70 - 5.20 M/uL 4.00 Hgb Latest Ref Range: 11.5 - 16.0 g/dL 11.6 Hct, Final Latest Ref Range: 34.0 - 47.0 % 35.5 MCV Latest Ref Range: 83.0 - 101.0 fL 88.8 MCH Latest Ref Range: 28.0 - 35.0 pg 28.9 MCHC Latest Ref Range: 32.0 - 36.0 g/dL 32.6 RDW-CV Latest Ref Range: <15.0 % 18.9 (H) Platelet Count Latest Ref Range: 140 - 440 K/uL 284 MPV Latest Units: fL 6.3 Absolute Neutrophils Latest Ref Range: 1.80 - 8.50 K/uL 3.20 Absolute Lymphocytes Latest Ref Range: 0.60 - 3.20 K/uL 0.70 Absolute Monocytes Latest Ref Range: 0.00 - 1.00 K/uL 0.40 Absolute Eosinophils Latest Ref Range: 0.00 - 0.40 K/uL 0.20 Absolute Basophils Latest Ref Range: 0.00 - 0.10 K/uL 0.00 % Neutrophils Latest Ref Range: 45.0 - 82.0 % 71.7 % Lymphocytes Latest Ref Range: 20.0 - 45.0 % 15.1 (L) % Monocytes Latest Ref Range: 4.0 - 12.0 % 8.9 % Eosinophils Latest Ref Range: 0.0 - 5.0 % 3.7 % Basophils Latest Ref Range: 0.0 - 1.0 % 0.6 NA Latest Ref Range: 136 - 149 mmol/L 141 K Latest Ref Range: 3.5 - 5.1 mmol/L 4.0 Chloride Latest Ref Range: 98 - 109 mmol/L 108 Carbon dioxide Latest Ref Range: 24 - 31 mmol/L 26 ANION GAP Latest Ref Range: 3 - 16 mmol/L 7 GLUCOSE Latest Ref Range: 70 - 109 mg/dL 82 BUN Latest Ref Range: 7 - 18 mg/dL 8 Creatinine Latest Ref Range: 0.60 - 1.30 mg/dL 0.55 (L) BUN/CREA Unknown 14.5 ALBUMIN Latest Ref Range: 3.2 - 5.0 g/dL 3.4 Albumin/Globulin ratio Latest Ref Range: 0.8 - 2.0 1.3 Total protein Latest Ref Range: 6.0 - 7.8 g/dL 6.1 EGFR IF NOT Latest Ref Range: >=60 mL/min/1.73m2 >60 Calcium Latest Ref Range: 8.3 - 10.5 mg/dL 8.9 ALK PHOS Latest Ref Range: 40 - 110 U/L 75 ALT (SGPT) (REF) Latest Ref Range: 6 - 45 U/L 19 AST (SGOT) (REF) Latest Ref Range: 10 - 42 U/L 25 LDH TOTAL Latest Ref Range: 91 - 180 U/L 156 BILIRUBIN TOTAL Latest Ref Range: 0.1 - 1.5 mg/dL 0.5 GLOBULIN Latest Ref Range: 2.1 - 3.8 g/dL 2.7 Pharmacovigilance: Palliative Care: Patient's Medications New Prescriptions No medications on file Modified Medications No medications on file Discontinued Medications No medications on file Procedure: Day 1, Cycle 1 (14-day cycle) Released on 03/21/2017 10:53; Originally planned for 03/21/2017 Labs Lactate Dehydrogenase STAT, ONE TIME, Tue03/21/17 at 0945, For 1 occurrence OrderHistory CEA STAT, ONE TIME, Tue03/21/17 at 0945, For 1 occurrence OrderHistory Comprehensive Metabolic Panel STAT, ONE TIME, Tue03/21/17 at 0945, For 1 occurrence OrderHistory CBC with Differential STAT, ONE TIME, Tue03/21/17 at 0945, For 1 occurrence OrderHistory Nursing Orders OK to proceed with chemotherapy 03/21/17--INFORMED CONSENT: The nature and character of the proposed treatment with Cycle # 7 FOLFOX and the anticipated results of the proposed treatment with Cycle #7 FOLFOX;recogniz ed alternative forms of treatment, including non-treatment; the risks benefits, and side eff ects of proposed treatment, alternative treatments and non-treatment were discussed with the patient who consents to proceed with treatment with Cycle #7 FOLFOX. The treating provider has examined the patient and reviewed the diagnostic data, including laboratory data, and de ems that it is safe and appropriate to proceed with treatment with Cycle #7 FOLFOX.Mook villatoro signed by: SIRENA HELTON MD 03/21/2017 10:45. OrderHistory Plans for discharge CALL [facility] FOR PUMP OFF ON Tuesday QFU IN 14 DAYS, CBC, CMP, LDH, CEA/PORT, 4 HR RXPUMP OFF IN SHAY EVERY TIME Order History Continuous infusion pump initiation Routine, ONE TIME [...] IVPB Intravenous, Administer over 15 Minutes, ONCE, Tue03/21/17 at 1115, For 1 dose Administer 30 minutes prior to chemotherapy. OrderHistory PRN Medications LORazepam (ATIVAN) 2 mg/mL injection 0.5-1 mg 0.5-1 mg (original dose 0.5-1 mg), Intravenous, PRN, Anxiety, Nausea/Vomiting, Starting wh en released, for 1 dose Administer prior to chemotherapy. OrderHistory CHEMOTHERAPY oxaliplatin (ELOXATIN) 142.5 mg in dextrose 5% 221.5 mL infusion 142.5 mg (rounded from 141.6 mg = 80 mg/m2 1.77 m2 Treatment plan recorded BSA), Intrav enous, Administer over 2 Hours, ONCE, Tue03/21/17 at 1145, For 1 dose Chemotherapy: Use appropriate handling [...] Intraveno us, Administer over 2 Hours, ONCE, Tue03/21/17 at 1145, For 1 dose Administer via y-site with oxaliplatin OrderHistory fluorouracil 4,250 mg in sodium chloride 0.9% 9 mL CADD PUMP infusion 4,250 mg (rounded from 4,248 mg = 2,400 mg/m2 1.77 m2 Treatment plan recorded BSA), Int ravenous, Administer over 46 Hours, EVERY 46 HOURS, First dose on Tue03/21/17 at 1345 OUTPATIENT Chemotherapy: Use appropriate handling precautions. Protect from light. Start Da y 1, disconnect Day 3. OrderHistory Portions of this chart may have been created with Volofy voice recognition software. Occasi onal wrong-word or [...]
--- OUTSIDE RECORDS SUMMARY | ~2019-06-11 | XMS | Encounter Summary ---
Demographics + + + | Address | [address] | | | [place] [address] | + + + | Home Phone [...] Team Providers + +------+ + | Care Semi Driver Name | Role | Phone | [...] [facility] [address] | [address] | results | | | | [address] | [place], | | | | | Mailcode: [place] | [place] [address] | | | | | for Health and | [phone] | | | | | [facility] [address] | | | | | | [place], [place] | | | | | | [address] | | | | | | [phone] | | | +--------+ + + + [...] | | | | | | [place] [address] | | | | | | [phone] | | | | | | | | +--------+---------+ + + + documented as of this encounter Visit Diagnoses Not on filedocumented in this encounter"
--- OUTSIDE RECORDS SUMMARY | ~2019-06-11 | XMS | Encounter Summary ---
Demographics + + + | Address | [address] | | | [place] [address] | + + + | Home Phone | | + + + | Preferred Language | Unknown | + + + | Marital Status | | + + + | Anglican Affiliation | Unknown | + + + | Race | Unknown | + + + | Ethnic Group | Unknown | + + + Author + + + | Author | [facility] | | | and [place] | + + + | Organization | [facility] | | | and [place] | + + + | Address | Unknown | + + + | Phone | Unavailable | + + + Support + + + + + | Name | Relationship | Address | Phone | + + + + + | Lamar Phillips | REZA | [place] [address] | | + + + + + Care Team Providers + +------+ + | Care Configuration Developer Name | Role | Phone | [...] neoplasm of | Mike C, | [place] | | | | | rectum (HCC) | MD [address] | [place], | | | | | Procedures | [address] | [place] [address] | | | | | [place] | [place], | Phone: | | | | | [place] | [place] [address] | [phone] | | | | | INJECTION, | Phone: | Fax: | | | | | [address] [place] | [phone] | [phone] | | | | | ONDANSETRON | Fax: | | | | | | HCL | [phone] | | | | | | INJECTION, 1 | | | | | | | MG DC | | | | | | | DEXAMETHASON | | | | | | | E SODIUM | | | | | | | PHOS, 1 MG | | | | | | | DC | | | | | | | FOSAPREPITAN | | | | | | | T INJECTION, | | | | | | | 1 MG DC | | | | | | | LORAZEPAM | | | | | | | INJECTION, 2 | | | | | | | MG DC | | | | | | | OXALIPLATIN, | | | | | | | .5 MG DC | | | | | | | LEUCOVORIN | | | | | | | CALCIUM | | | | | | | INJECTION, | | | | | | | 50 MG DC | | | | | | | DIPHENHYDRAM | | | | | | | INE HCL | | | | | | | INJECTIO, 50 | | | | | | | MG DC | | | | | | | METHYLPREDNI | | | | | | | SOLONE | | | | | | | INJECTION, | | | | | | | 125 MG DC | | | | | | | ALBUTEROL | | | | | | | COMP CON, 1 | | | | | | | MG DC | | | | | | | ALBUTEROL | | | | | | | NON-COMP | | | | | | | CON, 1 MG | | | | | | | DC | | | | | | | INJECTION, | | | | | | | FAMOTIDINE, | | | | | | | 20 MG DC | | | | | | | NORMAL | | | | | | | SALINE | | | | | | | SOLUTION | | | | | | | INFUS, 500 | | | | | | | ML DC | | | | | | | NORMAL | | | | | | | SALINE | | | | | | | SOLUTION | | | | | | | INFUS, 250 | | | | | | | ML DC | | | | | | | STERILE | | | | | | | WATER/SALINE | | | | | | | , 10 ML DC | | | | | | | CHEMOTHER, | | | | | | | IV PUSH,EA | | | | | | | ADD DRUG DC | | | | | | | CHEMOTHER, | | | | | | | IV INFUSION, | | | | | | | 1 HR DC | | | | | | | CHEMOTHER, | | | | | | | IV INFUSION, | | | | | | | EA HR DC | | | | | | | CHEMOTHER,NO | | | | | | | N-HORMONE | | | | | | | ANTI-NEOPL, | | | | | | | SUB-Q/IM DC | | | | | | | CHEMOTHER | | | | | | | HORMON | | | | | | | ANTINEOPL | | | | | | | SUB-Q/IM DC | | | | | | | NA FERRIC | | | | | | | GLUCONATE | | | | | | | COMPLEX, | | | | | | | 12.5 MG DC | | | | | | [...] + + | 11/29/ | Hospital | [facility] | [place], | Rectal cancer (HCC) | | 2017 | Encounter | MED CTR CHEMO | Mike White MD [address] | | | | | INFUSION [address] | [address] [facility] | | | | | [place], | [place] [address] | | | | | [place] [address] | [phone] | | | | | [phone] | | | +--------+ + + + [...] this encounter Progress Jada Booker RN - 11/29/2016 1:21 PM PDTPatient discharged in satisfactory conditi on. [...] | IRON AND TRANSFERRIN | STAT | 11/29/2016 | Rectal cancer | Results for this | | | | 8:25 AM | (HCC) | procedure are in the | | | | PDT | | results section. | + +--------+ + + + | CBC WITH | STAT | 11/29/2016 | Rectal cancer | Results for this | | DIFFERENTIAL | | 8:25 AM | (HCC) | procedure are in the | | | | PDT | | results section. | + +--------+ + + + | LACTATE | STAT | 11/29/2016 | Rectal cancer | Results for this | | DEHYDROGENASE | | 8:25 AM | (HCC) | procedure are in the | | | | PDT | | results section. | + +--------+ + + + | FERRITIN | STAT | 11/29/2016 | Rectal cancer | Results for this | | | | 8:25 AM | (HCC) | procedure are in the | | | | PDT | | results section. | + +--------+ + + + | COMPREHENSIVE | STAT | 11/29/2016 | Rectal cancer | Results for this | | METABOLIC PANEL | | 8:25 AM | (HCC) | procedure are in the | | | | PDT | | results section. | + +--------+ + + + documented in this encounter Results CBC with Differential (11/29/2016 8:25 AM PDT) + + + + + + | Component | Value | Ref Range | Performed | Pathologist | | | | | At | Signature | + + + + + + | WBC | 6.0 | 4.0 - 11.0 K/uL | [facility] | | | | | | [facility] | | | | | | MEDICAL | | | | | | CENTER - | | | | | | LABORATORY | | + + + + + + | RBC | 4.41 | 3.70 - 5.20 | [facility] | [...] + + + + | Hematocrit | 35.2 | 34.0 - 47.0 % | [facility] [...] + + + + | MCH | 24.9 (L) | 28.0 - 35.0 pg | [facility] | | | | | | [facility] | | | | | | MEDICAL | | | | | | CENTER - | | | | | | LABORATORY | | + + + + + + | MCHC | 31.2 (L) | 32.0 - 36.0 | [facility] | | | | | g/dL | [facility] | | | | | | MEDICAL | | | | | | CENTER - | | | | | | LABORATORY | | + + + + + + | RDW-CV | 22.0 (H) | <15.0 % | [facility] | | | | | | [facility] | | | | | | MEDICAL | | | | | | CENTER - | | | | | | LABORATORY | | + + + + + + | Platelet | 239 | 140 - 440 K/uL | [facility] | | | Count | | | [facility] | | [...] + + + + | % | 72.3 | 45.0 - 82.0 % | [facility] | | | Neutrophils | | | [facility] | | | | | | MEDICAL | | | | | | CENTER - | | | | | | LABORATORY | | + + + + + + | % | 13.8 (L) | 20.0 - 45.0 % | [facility] | | | Lymphocytes | | | [facility] | | | | | | MEDICAL | | | | | | CENTER - | | | | | | LABORATORY | | + + + + + + | % Monocytes | 8.8 | 4.0 - 12.0 % | [facility] | | | | | | [facility] | | | | | | MEDICAL | | | | | | CENTER - | | | | | | LABORATORY | | + + + + + + | % | 4.3 | 0.0 - 5.0 % | [facility] [...] + + + + | Absolute | 4.30 | 1.80 - 8.50 | [facility] | | | Neutrophils | | K/uL | [facility] | | | | | | MEDICAL | | | | | | CENTER - | | | | | | LABORATORY | | + + + + + + | Absolute | 0.80 | 0.60 - 3.20 | [facility] | [...] [address] | [place] | [phone] | | [facility] | | [address] | | | - LABORATORY | | | | + + + + + Comprehensive Metabolic Panel (11/29/2016 8:25 AM PDT) + + + + + + | Component | Value | Ref Range | Performed | Pathologist | | | | | At | Signature | + + + + + + | Na | 138 | 136 - 149 | [facility] | | | | | mmol/L | [facility] | | | | | | MEDICAL | | | | | | CENTER - | | | | | | LABORATORY | | + + + + + + | K | 3.6 | 3.5 - 5.1 | [facility] | | | | | mmol/L | [facility] | | | | | | MEDICAL | | | | | | CENTER - | | | | | | LABORATORY | | + + + + + + | Cl | 99 | 98 - 109 mmol/L | [facility] [...] + + + + | Glucose | 144 (H) | 70 - 109 mg/dL | [...] | | | | mg/dL | [facility] | | | | | | MEDICAL | | | | | | CENTER - | | | | | | LABORATORY | | + + + + + + | eGFR if not | >60Comment: GLOMERULAR | >=60 | [facility] | | | | FILTRATION | mL/min/1.73m2 | [facility] | | | UZBEK | RATE,ESTIMATED | | MEDICAL | | | | mL/min/1.16h8Ltth than | | CENTER - | | [...] | | | | mg/dL | [facility] | | | | | | [...] + + + + | Bilirubin | 0.5 | 0.1 - 1.5 mg/dL | [facility] | | | Total | | | [facility] | | | | | | MEDICAL | | | | | | CENTER - | | | | | | LABORATORY | | + + + + + + | Total | 6.7 | 6.0 - 7.8 g/dL | [facility] | | | Protein | | | [facility] | | | | | | MEDICAL | | | | | | CENTER - | | | | | | LABORATORY | | + + + + + + | AST | 37 | 10 - 42 U/L | [facility] | | | | | | [facility] | | | | | | MEDICAL | | | | | | CENTER - | | | | | | LABORATORY | | + + + + + + | ALT | 38 | 6 - 45 U/L | [facility] | | | | | | [facility] | | | | | | MEDICAL | | | | | | CENTER - | | | | | | LABORATORY | | + + + + + + | Alkaline | 119 (H) | 40 - 110 U/L | [...] [address] | [place] | [phone] | | [facility] | | [address] | | | - LABORATORY | | | | + + + + + Lactate Dehydrogenase (11/29/2016 8:25 AM PDT) + +-------+ + + + | Component | Value | Ref Range | Performed | Pathologist | | | | | At | Signature | + +-------+ + + + | LDH TOTAL | 166 | 91 - 180 U/L | [facility] [...] ST. | [address] | [place], [place] | [phone] | | [facility] | | [address] | | | - LABORATORY | | | | + + + + + Ferritin (11/29/2016 8:25 AM PDT) + +-------+ + + + | Component | Value | Ref Range | Performed | Pathologist | | | | | At | Signature | + +-------+ + + + | FERRITIN | 151 | 11 - 307 ng/mL | XU | | | | | [...] + | [facility] | [address] | [place] | [phone] | | [facility] | | [address] | | | - LABORATORY | | | | + + + + + Iron and Transferrin (11/29/2016 8:25 AM PDT) + +---------+ + + + | Component | Value | Ref Range | Performed | Pathologist | | | | | At | Signature | + +---------+ + + + | Iron | 32 (L) | 40 - 150 ug/dL | [facility] | | | | | | [facility] | | | | | | MEDICAL | | | | | | CENTER - | | | | | | LABORATORY | | + +---------+ + + + | TRANSFERRIN | 269.4 | 240.0 - 480.0 | [facility] | | | | | mg/dL | [facility] | | | | | | MEDICAL | | | | | | CENTER - | | | | | | LABORATORY | | + +---------+ + + + | TIBC | 377 | 235 - 425 ug/dL | [facility] | | | | | | [facility] | | | | | | MEDICAL | | | | | | CENTER - | | | | | | LABORATORY | | + +---------+ + + + | % | 8.5 (L) | 20.0 - 55.0 % | [facility] | | | SATURATION | | | [facility] | | [...] [address] | [place] | [phone] | | [facility] | | [address] | | | - LABORATORY | | [...] 4,050 mg in sodium | Given | 11/30/19 | 4,050 mg | 2 mL/hr | | | chloride 0.9% 11 mL CADD PUMP | | 17 1:12 | | | | | chemo infusion [...] | | | | | | on 11/29/16 at 1330, | | | | | | | [...] 150 mg in | New Bag | 11/30/19 | 150 mg | 450 | | | sodium chloride 0.9% 150 mL IVPB | | 17 10:34 | | mL/hr | | | 150 mg, Intravenous, Administer | | AM PDT | | | | | over 20 Minutes, ONCE, Mon | | | | | | | 11/29/16 at 1015, For 1 dose, Do | | | | | | | not shake bag., | | | | | | + +---------+ +--------+-------+---+ +---+---+ | | | +---+---+ + +---------+ +--------+--------+---+ | leucovorin 340 mg in dextrose | New Bag | 11/30/19 | 340 mg | 133.5 | | | 5% 250 mL infusion 340 mg | | 17 10:59 | | mL/hr | | | (rounded from 338 mg = 200 mg/m2 | | AM PDT | | | | | | | | | | | | 1.69 m2 Order-specific BSA), | | | | | | | Intravenous, Administer over 2 | | | | | | | Hours, ONCE, 11/29/16 at 1100, | | | | | | | For 1 dose, Administer via y-site | | | | | | | with oxaliplatin, | | | | | | + +---------+ +--------+--------+---+ +---+---+ | | | +---+---+ + +---------+ +---+-------+---+ | ondansetron (ZOFRAN) 8 mg, | New Bag | 11/30/19 | | 204 | | | dexamethasone (DECADRON) 4 mg in | | 17 10:14 | | mL/hr | | | sodium chloride 0.9% 50 mL IVPB | | AM PDT | | | | | Intravenous, Administer over 16 | | | | | | | Minutes, ONCE, Tue11/29/16 at | | | | | | | 1000, For 1 dose, Administer 30 | | | | | | | minutes prior to chemotherapy., | | | | | | + +---------+ +---+-------+---+ +---+---+ | | | +---+---+ + +---------+ +--------+-------+---+ | oxaliplatin (ELOXATIN) 135 mg | New Bag | 11/30/19 | 135 mg | 125 | | | in dextrose 5% 223 mL chemo | | 17 10:59 | | mL/hr | | | infusion 135 mg (rounded from | | AM PDT | | | | | 135.2 mg = 80 mg/m2 | | | | | | | 1.69 m2 Order-specific BSA), | | | | | | | Intravenous, Administer over 2 | | | | | | | Hours, ONCE, Tue11/29/16 at 1100, | | | | | | | [...]
--- OUTSIDE RECORDS SUMMARY | ~2019-06-11 | XMS | Encounter Summary ---
Demographics + + + | Address | [address] | | | [place] [address] | + + + | Home Phone [...] Organization | [facility] | | | and [place] | + + + | Address | Unknown | + + + | Phone | Unavailable | + + + Support + + + + + | Name | Relationship | Address | Phone | + + + + + | Lamar Phillips | REZA | [place] [address] | | + + + + + Care Team Providers + +------+ + | Care Ore Smelter Name | Role | Phone | + [...] + + | 10/18/ | Documentati | [facility] | Vu Guillermo, | Psychosocial Support | | 2017 | on | MED CTR MEDICAL | PROTECTIVE SIGNAL REPAIRER HELPER | | | | | ONCOLOGY CLINIC [address] | | | | | | [address] | | | | | | [place] [address] | | | | | | [phone] | | | +--------+ + + + [...] for rectal canc er. She lives in [place], [place]. Jenn is employed at [employer] in [place] and is cove red by Medicaid [place] [...] coping skills and str phi horacio. This Plastic Top Assembler allowed for expression of feeling and provided supportive counseling and information regarding the emotional aspects of a cancer diagnosis and treatment. Encourage avi Jenn to attend community support group and offered literature on patient s diagnosis. Pr ovided Jenn with ACS booklets on Chemotherapy and Radiation Therapy. This Plastic Top Assembler and Project Development Director are available to provide emotional support an [...]
--- OUTSIDE RECORDS SUMMARY | ~2019-06-11 | XMS | Encounter Summary ---
Demographics + + + | Address | [address] | | | [place] [address] | + + + | Home Phone [...] Team Providers + +------+ + | Care Cheese Production Supervisor Name | Role | Phone | + +------+ + | Kristian Anderson DO | PCP | | + +------+ + Encounter Details +--------+ + + + + | Date | Type | Department | Care Team | Description | +--------+ + + + + | 04/19/ | Procedure | Diagnostic Imaging | | | | 2016 | Pass | Services at [facility] | | | | | | [address] | | | | | | [place] Mailcode: | | | | | | [address] [facility] | | | | | | [place], [place] | | | | | | [address] | | | | | | [phone] | | | +--------+ + + + [...] | | | | | [place], | | | | | | [place] [address] | | | | | | [phone] | | | | | | | | +--------+---------+ + + + documented as of this encounter Visit Diagnoses Not on filedocumented in this encounter"
--- OUTSIDE RECORDS SUMMARY | ~2019-06-11 | XMS | Encounter Summary ---
Demographics + + + | Address | [address] | | | [place] [address] | + + + | Home Phone | | + + + | Preferred Language | Unknown | + + + | Marital Status | | + + + | Buddhism Affiliation | Unknown | + + + | Race | Unknown | + + + | Ethnic Group | Unknown | + + + Author + + + | Author | [facility] | | | and [place] | + + + | Organization | [facility] | | | and [place] | + + + | Address | Unknown | + + + | Phone | Unavailable | + + + Support + + + + + | Name | Relationship | Address | Phone | + + + + + | Lamar Phillips | REZA | [place] [address] | | + + + + + Care Team Providers + +------+ + | Care Laborer Marine Terminal Name | Role | Phone | + [...] + + | 11/29/ | Hospital | [facility] | [facility], | Rectal cancer (HCC) | | 2017 | Encounter | MED CTR MEDICAL | Sirena White MD [address] | (Primary Dx) | | | | ONCOLOGY CLINIC [address] | [facility] | | | | | [address] [facility] | [place] [address] | | | | | [place] [address] | [phone] | | | | | [phone] | | | +--------+ + + + [...] nt from the original. Hematology/Oncology Progress Note [place], [place] Pt. Name/Age/: Paulette Byrnes 55 y.o. 1960 Med. Record Number: [id number] Date of admission: 11/29/2016 The patient's primary care provider is Kristian Anderson DO. Identifying Statement: Paulette Byrnes is a 55 y.o. female from [address] [place] [address] with Locally Advanced Rectal Cancer. The patient chart and medications were reviewed in detail and the patient was seen and exam ined. History of Present Illnesses, their Current Assessments and Plans: Problems That Were Updated This Visit Rectal cancer Overview ACTIVE DIAGNOSIS: Locally Advanced Rectal Cancer. 1. Paulette presented to the [facility] emergency room on July 20, [...] cm within the rectum. Biopsy specimen number [id number] evaluated by Dr. Felipe Nixon of [facility] was notable for a tubular adenoma without high-grade dysplasia or overt carcinoma. This proced ure also included a full colonoscopy through the ostomy were 2 additional polyps were remove d, a tubular adenoma at 35 cm and a hyperplastic polyp at [address] C/A/P at [facility] in [place], [place] demonstrated no evidence of metastatic disease. 4. On September 22, 2016 Dr. Thacker placed in internal jugular Port-A-Cath without complications. 5. MRI of pelvis performed on October 05, 2016 at [facility]: Rectal mass 7.7 cm x 6.2 cm x 9.6 cm in length located within 3 cm of the anal sphincter and 6.4 cm from the anal verge with radi ographic extension though multiple areas of the bowel wall. 6. CT abdomen/pelvis also at [facility] October 05, 2016; large almost completely circumferential r ectosigmoid mass better delineated on the corresponding MRI with adjacent probable abscess. No distant metastases identified. 7. On October 14, 2016 Paulette was evaluated by Dr. Ailyn Wolff and Dr. Shea Mcneill of the [facility] where her case was presented to their tumor board. Clinical exa m is notable for an overt rectal carcinoma invading into the vagina. 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 Concerns raised by the [facility] Tumor Board were that the [...] as well as mutation analysis." Pathological Specimen #[id number] ([facility]). Tubulovillous adenoma [...] this chart may have been created with [employer]Zoom voice recognition software. Occasi onal wrong-word or [...]
--- OUTSIDE RECORDS SUMMARY | ~2019-06-11 | XMS | Encounter Summary ---
Demographics + + + | Address | [address] | | | [place] [address] | + + + | Home Phone [...] Team Providers + +------+ + | Care Take Out Waitress Name | Role | Phone | + [...] | Question | | 2016 | | [place] [facility] [address] | [address] | | | | | [address] | [place], | | | | | Mailcode: Center | [place] [address] | | | | | for Health and | [phone] | | | | | [facility] | | | | | | [place], [place] | | | | | | [address] | | | | | | [phone] | | | +--------+ + + + [...] | | | | | [place], | | | | | | [place] [address] | | | | | | [phone] | | | | | | | | +--------+---------+ + + + documented as of this encounter Visit Diagnoses Not on filedocumented in this encounter"
--- OUTSIDE RECORDS SUMMARY | ~2019-06-11 | XMS | Encounter Summary ---
Demographics + + + | Address | [address] | | | [place] [address] | + + + | Home Phone | | + + + | Preferred Language | Unknown | + + + | Marital Status | | + + + | Jew Affiliation | Unknown | + + + | Race | Unknown | + + + | Ethnic Group | Unknown | + + + Author + + + | Author | [facility] | | | and [place] | + + + | Organization | [facility] | | | and [place] | + + + | Address | Unknown | + + + | Phone | Unavailable | + + + Support + + + + + | Name | Relationship | Address | Phone | + + + + + | Lamar Phillips | REZA | [place] [address] | | + + + + + Care Team Providers + +------+ + | Care Embedded Software Test Engineer Name | Role | Phone | [...] neoplasm of | Mike C, | [place] | | | | | rectum (HCC) | MD [address] | [place], | | | | | Procedures | [address] | [place] [address] | | | | | [place] | [place], | Phone: | | | | | [place] | [place] [address] | [phone] | | | | | INJECTION, | Phone: | Fax: | | | | | [address] [place] | [phone] | [phone] | | | | | ONDANSETRON | Fax: | | | | | | HCL | [phone] | | | | | | INJECTION, [...] | | | | | 1 MG [place] | | | | | [...] | | | | | 20 MG [place] | | | | | [...] | | | | | 12.5 MG [place] | | | | | [...] + + | 12/27/ | Hospital | [facility] | Jan[place], | Rectal cancer (HCC) | | 2017 | Encounter | MED CTR CHEMO | Mike White MD [address] | | | | | [address] | [address] [facility] | | | | | [place], | [place] [address] | | | | | [place] [address] | [phone] | | | | | [phone] | | | +--------+ + + + [...] | mL/min/1.73m2 | [facility] | | | [place] | RATE,ESTIMATED | | MEDICAL | | | | mL/min/1.69u5Huuc than | | CENTER - | | [...] [address] | [place] | [phone] | | [facility] | | [address] | | | - LABORATORY | | [...] ST. | [address] | [place], [place] | [phone] | | [facility] | | [address] | | | - LABORATORY | | [...] [address] | [place] | [phone] | | [facility] | | [address] | | | - LABORATORY | | [...]
--- OUTSIDE RECORDS SUMMARY | ~2019-06-11 | XMS | Encounter Summary ---
Demographics + + + | Address | [address] | | | [place] [address] | + + + | Home Phone [...] Providers + +------+ + | Care Research & Analytics Manager Name | Role | Phone | [...] | | | Oncology | Rectal | [address] | [place] | | | | | cancer (HCC) | [address] | [place] | | | | | Procedures | [place] | [address] | | | | | CONSULT TO | [place] | [place] | | | | | RADIATION | [address] | [place], | | | | | ONCOLOGY | Phone: | [place] | | | | | | [phone] | [address] | | | | | | Fax: | Phone: | | | | | | [phone] | [phone] | | | | | | | Fax: | | | | | | | [phone] | +--------+--------+ + + + + Encounter Details +--------+ + + + + | Date | Type | Department | Care Team | Description | +--------+ + + + + | 06/02/ | MyChart | [facility] | Ailyn Wolff MD | Info about my cancer | | 2017 | Encounter | [place] [facility] [address] | [address] | | | | | [address] | [place], | | | | | Mailcode: [place] | [place] [address] | | | | | for Health and | [phone] | | | | | [facility] | | | | | | [place], [place] | | | | | | [address] | | | | | | [phone] | | | +--------+ + + + [...] | | | | | | [place] [address] | | | | | | [phone] | | | | | | | | +--------+---------+ + + + documented as of this encounter Visit Diagnoses + + | Diagnosis | + + | Rectal cancer (HCC) - Primary Malignant neoplasm of rectum | + + documented in this encounter"
--- OUTSIDE RECORDS SUMMARY | ~2019-06-11 | XMS | Encounter Summary ---
Demographics + + + | Address | [address] | | | [place] [address] | + + + | Home Phone [...] + +------+ + | Care Clinical Data Management Director Name | Role | Phone | [...] | | | | CONSULT TO | [place], [place] | Mailcode: | | | | | GI | [address] | [id number] | | | | | PROCEDURE | Phone: | [place] | | | | | UNIT: | [phone] | [address] | | | | | COLONOSCOPY | Fax: | [place], | | | | | | [phone] | [place] [address] | | | | | | | Phone: | | | | | | | [phone] | | | | | | | Fax: | | | | | | | [phone] | + +--------+ + + + + [...] | | | | CT CHEST, | [place], [place] | | | | | | ABDOMEN AND | [address] | | | | | | PELVIS W IV | Phone: | | | | | | CONTRAST | [phone] | | | | | | | Fax: | | | | | | | [phone] | | +--------+--------+ + + + + [...] | | | | Epic Dept | [address] | | | | | | | [address] | | | | | | | Amita Hines | | | | | | | [place], [place] | | | | | | | [address] | | | | | | | Phone: | | | | | | | [phone] | | | | | | | Fax: | | | | | | | [phone] | +--------+--------+ + + + + Encounter Details +--------+---------+ + + + | Date | Type | Department | Care Team | Description | +--------+---------+ + + + | 05/29/ | Office | [facility] | Ailyn Wolff MD | CA of rectum (HCC) | | 2018 | Visit | [place] [facility] [address] | [address] | (Primary Dx) | | | | [address] | [place], | | | | | Mailcode: [place] | [place] [address] | | | | | for Health and | [phone] | | | | | [facility], [facility] 2 | | | | | | [place], [place] | | | | | | [address] | | | | | | [phone] | | | +--------+---------+ + + + [...] in 06/[address] at [facility] in [place] in June,. I spoke to Marty Thacker. [...] rectal bleeding on 07/19/16 went to the [facility] ED CT abdomen/pelvis with IV [...] cm from anal verge presented at the [facility] Multidisciplinary GI Oncology Conference on [...] to Mendoza pouch staple line presented at [facility] Multidisciplinary GI Oncology Conference on [...] MRI ([facility], 05/17/17) close to pelvic sidewall [facility] Multidisciplinary GI Oncology Conference (06/02/17) [...] resection with primary anastomosis, placement of a 19-Serbian Albert drain through the right lower quadrant [...] in 06/[address] at [facility] in [place] in June,. I spoke to Marty Kirstie. [...] resection with primary anastomosis, placement of a 19-Serbian Albert drain through the right lower quadrant [...] Return/Re-evaluation patient, I spent 20 minutes of [id number] time, of which m ore than half [...] | | 2018 | Visit | | [address] | | | | | | [place], | | | | | | [place] [address] | | | | | | [phone] | | | | | | | [...] [facility] | [address] | [place] [address] | | | SERVICES, CORE | [address] | | | + + + + + documented in this encounter Visit Diagnoses + + | Diagnosis | + + | 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
--- OUTSIDE RECORDS SUMMARY | ~2019-06-11 | XMS | Encounter Summary ---
Demographics + + + | Address | [address] | | | [place] [address] | + + + | Home Phone | | + + + | Preferred Language | Unknown | + + + | Marital Status | | + + + | Christian Affiliation | Unknown | + + + | Race | Unknown | + + + | Ethnic Group | Unknown | + + + Author + + + | Author | [facility] | | | and [place] | + + + | Organization | [facility] | | | and [place] | + + + | Address | Unknown | + + + | Phone | Unavailable | + + + Support + + + + + | Name | Relationship | Address | Phone | + + + + + | Lamar Phillips | REZA | [place] [address] | | + + + + + Care Team Providers + +------+ + | Care Electrocardiograph Operator Name | Role | Phone | + +------+ + | Kristian Anderson DO | PCP | | + +------+ + Encounter Details +--------+ + + + + | Date | Type | Department | Care Team | Description | +--------+ + + + + | 10/18/ | Hospital | [facility] | Tayla Abernathy | Rectal cancer (HCC) | | 2017 | Encounter | [facility] | J, PharmD [address] | (Primary Dx) | | | | [facility] CLINIC [address] | [address] | | | | | [address] [place] | [place] [address] | | | | | [place] [address] | [phone] | | | | | [phone] | | | +--------+ + + + [...] Pharmacy Services Progress Note Chemotherapy Education Session [facility] Pt. Name/Age/: Jenn Parada 55 y.o. 1960 Med. Record Number: [id number] Identifying Statement: Jenn Parada is a 55 y.o. female from [address] [place] [address] with The encounter diagnosis was Rectal cancer [...]
--- OUTSIDE RECORDS SUMMARY | ~2019-06-11 | XMS | Encounter Summary ---
Demographics + + + | Address | [address] | | | [place] [address] | + + + | Home Phone [...] Organization | [facility] | | | and [place] | + + + | Address | Unknown | + + + | Phone | Unavailable | + + + Support + + + + + | Name | Relationship | Address | Phone | + + + + + | Lamar Phillips | REZA | [place] [address] | | + + + + + Care Team Providers + +------+ + | Care Sub Prior Name | Role | Phone | + [...] neoplasm of | Mike C, | [address] | | | | | rectum (HCC) | MD [address] | [place], | | | | | Procedures | [address] | [place] [address] | | | | | [place] | [place], | Phone: | | | | | [place] | [place] [address] | [phone] | | | | | INJECTION, | Phone: | Fax: | | | | | [address] [place] | [phone] | [phone] | | | | | NORMAL | Fax: | | | | | | SALINE | [phone] | | | | | | SOLUTION [...] + + | 05/02/ | Hospital | [facility] | Janel, | Rectal cancer (HCC) | | 2017 | Encounter | MED CTR CHE[facility] | Mike White MD [address] | | | | | EDWARD[address] | [address] [place] | | | | | [address] [place], | [place] [address] | | | | | [place] [address] | [phone] | | | | | [phone] | | | +--------+ + + + [...] | 14 | 0 | 05/02/20 | 01/22/201 | | (DIFLUCAN) 200 MG | mouth [...] encounter Progress Notes Jada Jauregui RN - 05/02/2017 1:14 PM PDTPatient discharged in satisfactory conditi on. [...] + | CBC WITH | STAT | 05/02/2017 | Rectal cancer | Results for this | | DIFFERENTIAL | | 9:08 AM | (HCC) | procedure are in the | | | | PDT | | results section. | + +--------+ + + + | LACTATE | STAT | 05/02/2017 | Rectal cancer | Results for this | | DEHYDROGENASE | | 9:08 AM | (HCC) | procedure are in the | | | | PDT | | results section. | + +--------+ + + + | CEA | STAT | 05/02/2017 | Rectal cancer | Results for this | | | | 9:08 AM | (HCC) | procedure are in the | | | | PDT | | results section. | + +--------+ + + + | COMPREHENSIVE | STAT | 05/02/2017 | Rectal cancer | Results for this | | METABOLIC PANEL | | 9:08 AM | (HCC) | procedure are in the | | | | PDT | | results section. | + +--------+ + + + documented in this encounter Results CBC with Differential (05/02/2017 9:08 AM PDT) + + + + + [...] + + + + | RBC | 3.82 | 3.70 - 5.20 | [facility] | [...] + + + + | Hematocrit | 33.0 (L) | 34.0 - 47.0 % | [facility] | | [facility] | | | | [facility] | | | | | | C[facility] - | | | | | | LABORATORY | | + + + + + + | MCV | 86.5 | 83.0 - 101.0 fL | [facility] | | | | | | [facility] | | | | | | [facility] | | | | | | CENTER - | | | | | | LABORATORY | | + + + + + + | MCH | 28.8 | 28.0 - 35.0 pg | [facility] | | | | | | [facility] | | | | | | [facility] | | | | | | CENTER - | | | | | | LABORATORY | | + + + + + + | MCHC | 33.3 | 32.0 - 36.0 | [facility] | [...] + + + + | Platelet | 325 | 140 - 440 K/uL | [facility] [...] + + + + | % | 68.4 | 45.0 - 82.0 % | [facility] | | | Neutrophils | | | [facility] | | | | | | [facility]ICAL | | | | | | CENTER - | | | | | | LABORATORY | | + + + + + + | % | 12.6 (L) | 20.0 - 45.0 % | [facility] | | | Lymphocytes | | | [facility] | | | | | | MEDICAL | | | | | | CENTER - | | | | | | LABORATORY | | + + + + + + | % Monocytes | 14.0 (H) | 4.0 - 12.0 % | [facility] | | | | | | [facility] | | | | | | MEDICAL | | | | | | CENTER - | | | | | | LABORATORY | | + + + + + + | % | 4.1 | 0.0 - 5.0 % | [facility] [...] + + + + | Absolute | 3.10 | 1.80 - 8.50 | [facility] | [...] + | [facility] | [address] | [place] | [phone] | | [facility] | | [address] | | | - LABORATORY | | | | + + + + + Comprehensive Metabolic Panel (05/02/2017 9:08 AM PDT) + + + + + [...] + + + + | Glucose | 103 | 70 - 109 mg/dL | [facility] [...] 0.52 (L) | 0.60 - 1.30 | [facility] | | | | | mg/dL | [facility] | | | | | | MEDICAL | | | | | | CENTER - | | | | | | LABORATORY | | + + + + + + | eGFR if not | >60Comment: GLOMERULAR | >=60 | [facility] | | | | FILTRATION | mL/min/1.73m2 | [facility] | | | [facility]AN | RATE,ESTIMATED | | MEDICAL | | | | mL/min/1.47j9Hbyq than | | CENTER - | | [...] | 9.1 | 8.3 - 10.5 | [facility] | | | | | mg/dL | [...] + + + + | ALT | 17Comment: This is an | 6 - 45 [...] + + + + | Alkaline | 76Comment: This is an | 40 - 110 [...] + + + + | BUN/Creatin | 13.5 | | [facility] | | | ine [...] + | [facility] | [address] | [place] | [phone] | | [facility] | | [address] | | | - LABORATORY | | | | + + + + + CEA (05/02/2017 9:08 AM PDT) + +-------+ + + + | Component | Value | Ref Range | Performed | Pathologist | | | | | At | Signature | + +-------+ + + + | CEA | 1.9 | 0.0 - 10.0 | [facility] | | | | | ng/mL | [facility] | | | | | | MEDICAL [...] [address] | [place] | [phone] | | [facility] | | [address] | | | - LABORATORY | | | | + + + + + Lactate Dehydrogenase (05/02/2017 9:08 AM PDT) + +-------+ + + + | Component | Value | Ref Range | Performed | Pathologist | | | | | At | Signature | + +-------+ + + + | LDH TOTAL | 174 | 91 - 180 U/L | [facility] [...] | [address] | [place] | [phone] | | [facility] | | [address] | | | - LABORATORY | | [...] 4,250 mg in sodium | Given | 05/02/20 | 4,250 mg | 2 mL/hr | | | chloride 0.9% 9 mL CADD PUMP | | 17 1:10 | | | | | infusion 4,250 [...] | | | | First dose on 05/02/17 at | | | | | | | 1315, OUTPATIENT Chemotherapy: | | | | | [...] mg in dextrose | New Bag | 05/02/20 | 350 mg | 133.8 | | | 5% 250 mL infusion 350 mg | | 17 11:04 | | mL/hr | | | (rounded from 354 mg = 200 mg/m2 | | AM PDT | | | | | | | | | | | | 1.77 m2 Treatment plan recorded | | | | | | | BSA), Intravenous, Administer | | | | | | | over 2 Hours, ONCE, 05/02/17 | | | | | | | at 1115, For 1 dose, Administer | | | | | | | via y-site with oxaliplatin, | | | | | | + +---------+ +--------+--------+---+ +---+---+ | | | +---+---+ + +---------+ +---+--------+---+ | ondansetron (ZOFRAN) 8 mg, | New Bag | 05/02/20 | | 217.6 | | | dexamethasone (DECADRON) 4 mg in | | 17 10:46 | | mL/hr | | | sodium chloride 0.9% 50 mL IVPB | | AM PDT | | | | | Intravenous, Administer over 15 | | | | | | | Minutes, ONCE, Tue05/02/17 at | | | | | | | 1045, For 1 dose, Administer 30 | | | | | | | minutes prior to chemotherapy., | | | | | | + +---------+ +---+--------+---+ +---+---+ | | | +---+---+ + +---------+ + +-------+---+ | oxaliplatin (ELOXATIN) 112.5 mg | New Bag | 05/02/20 | 112.5 mg | 125 | | | in dextrose 5% 227.5 mL infusion | | 17 11:04 | | mL/hr | | | 112.5 mg (rounded from 113.28 | | AM PDT | | | | | mg = 64 mg/m2 | | | | | | | 1.77 m2 Treatment plan recorded | | | | | | | BSA), Intravenous, Administer | | | | | | | over 2 Hours, ONCE, Tue05/02/17 | | | | | | | at 1115, For 1 dose, | | | | [...]
--- OUTSIDE RECORDS SUMMARY | ~2019-06-11 | XMS | Encounter Summary ---
Demographics + + + | Address | [address] | | | [place] [address] | + + + | Home Phone [...] Team Providers + +------+ + | Care Raftsman Name | Role | Phone | + [...] | | | | CT CHEST, | [place], [place] | Mailcode: | | | | | ABDOMEN AND | [address] | [address] [facility] | | | | | PELVIS W IV | Phone: | Hospital | | | | | CONTRAST NE | [phone] | [place], [place] | | | | | CAT SCAN OF | Fax: | [address] | | | | | CHEST | [phone] | Phone: | | | | | CONTRAST NE | | [phone] | | | | | CT | | Fax: | | | | | ABDOMEN&PELV | | [phone] | | | | | IS | [...] | | | CT CHEST, | [place], [place] | Mailcode: | | | | | ABDOMEN AND | [address] | [address] [facility] | | | | | PELVIS W IV | Phone: | Hospital | | | | | CONTRAST NE | [phone] | [place], [place] | | | | | CAT SCAN OF | Fax: | [address] | | | | | CHEST | [phone] | Phone: | | | | | CONTRAST NE | | [phone] | | | | | CT | | Fax: | | | | | ABDOMEN&PELV | | [phone] | | | | | IS | [...] 2017 | Encounter | Services at [facility] | [address] | | | | | [address] | Amita Hines [place], | | | | | Amita Hines Mailcode: | [place] [address] | | | | | [address] [facility] | [phone] | | | | | [place], [place] | | | | | | [address] | | | | | | [phone] | | | +--------+ + + + [...] | | | | Amita Hines [place], | | | | | | [place] [address] | | | | | | [phone] | | | | | | | [...]
--- OUTSIDE RECORDS SUMMARY | ~2019-06-11 | XMS | Encounter Summary ---
Demographics + + + | Address | [address] | | | [place] [address] | + + + | Home Phone [...] Organization | [facility] | | | and [place] | + + + | Address | Unknown | + + + | Phone | Unavailable | + + + Support + + + + + | Name | Relationship | Address | Phone | + + + + + | Lamar Phillips | REZA | [place] [address] | | + + + + + Care Team Providers + +------+ + | Care Head Bucker Name | Role | Phone | + [...] [place] | | | | | [address] [place] | [place] [address] | | | | | [place] [address] | [phone] | | | | | [phone] | | | +--------+ + + + [...]
--- OUTSIDE RECORDS SUMMARY | ~2019-06-11 | XMS | Encounter Summary ---
Demographics + + + | Address | [address] | | | [place] [address] | + + + | Home Phone [...] | Located [facility] | | | and [place] | + + + | Address | Unknown | + + + | Phone | Unavailable | + + + Support + + + + + | Name | Relationship | Address | Phone | + + + + + | Lamar Phillips | REZA | [place] [address] | | + + + + + Care Team Providers + +------+ + | Care Pyrometallurgical Engineer Name | Role | Phone | [...] W | | | | | | [place], | | | | | | [place] [address] | | | | | | [phone] | | | +--------+ + + + [...]
--- OUTSIDE RECORDS SUMMARY | ~2019-06-11 | XMS | Encounter Summary ---
Demographics + + + | Address | [address] | | | [place] [address] | + + + | Home Phone [...] Team Providers + +------+ + | Care Special Needs Librarian Name | Role | Phone | + [...] Notes | | 2016 | | at [facility] [address] | | (Lodging) | | | | [place] | | | | | | [place] | | | | | | [place], [place] | | | | | | [address] | | | | | | [phone] | | | +--------+ + + + [...] | | | | | | [place] [address] | | | | | | [phone] | | | | | | | | +--------+---------+ + + + documented as of this encounter Visit Diagnoses Not on filedocumented in this encounter"
--- OUTSIDE RECORDS SUMMARY | ~2019-06-11 | XMS | Encounter Summary ---
Demographics + + + | Address | [address] | | | [place] [address] | + + + | Home Phone [...] Providers + +------+ + | Care Tank Cleaning Supervisor Name | Role | Phone | [...] | | 2019 | | Center at [facility] [address] | [address] | Review | | | | [address] | Amita Hines [place], | | | | | Mailcode: [place] | [place] [address] | | | | | for Health and | [phone] | | | | | [facility] 2 | | | | | | [place], [place] | | | | | | [address] | | | | | | [phone] | | | +--------+ + + + [...] | | | | | Amita Hines [place], | | | | | | [place] [address] | | | | | | [phone] | | | | | | | | +--------+---------+ + + + documented as of this encounter Visit Diagnoses Not on filedocumented in this encounter"
--- OUTSIDE RECORDS SUMMARY | ~2019-06-11 | XMS | Encounter Summary ---
Demographics + + + | Address | [address] | | | [place] [address] | + + + | Home Phone [...] Providers + +------+ + | Care Academic Support Coordinator Name | Role | Phone | [...] [place], | | | | | Mailcode: [place] | [place] [address] | | | | | for Health and | [phone] | | | | | [facility] 2 | | | | | | [place], [place] | | | | | | [address] | | | | | | [phone] | | | +--------+ + + + [...] | | | | | | [place] [address] | | | | | | [phone] | | | | | | | | +--------+---------+ + + + documented as of this encounter Visit Diagnoses Not on filedocumented in this encounter"
--- OUTSIDE RECORDS SUMMARY | ~2019-06-11 | XMS | Encounter Summary ---
Demographics + + + | Address | [address] | | | [place] [address] | + + + | Home Phone [...] Team Providers + +------+ + | Care Uke Operator Name | Role | Phone | + +------+ + | Kristian Anderson DO | PCP | | + +------+ + Encounter Details +--------+ + + + + | Date | Type | Department | Care Team | Description | +--------+ + + + + | 01/03/ | Document-Sc | Health Information | Unknown . | | | 2017 | anned | Services [address] | | | | | | [address] | | | | | | Mailcode: OP17A | | | | | | [facility] | | | | | | [place], [place] | | | | | | [address] | | | | | | [phone] | | | +--------+ + + + [...] | | | | | Amita Hines [place], | | | | | | [place] [address] | | | | | | [phone] | | | | | | | [...]
--- OUTSIDE RECORDS SUMMARY | ~2019-06-11 | XMS | Encounter Summary ---
Demographics + + + | Address | [address] | | | [place] [address] | + + + | Home Phone [...] Organization | [facility] | | | and [place] | + + + | Address | Unknown | + + + | Phone | Unavailable | + + + Support + + + + + | Name | Relationship | Address | Phone | + + + + + | Lamar Phillips | REZA | [place] [address] | | + + + + + Care Team Providers + +------+ + | Care Hvac Commercial Salesperson Name | Role | Phone | [...] neoplasm of | Mike C, | [place] | | | | | rectum (HCC) | MD [address] | [place], | | | | | Procedures | [address] | [place] [address] | | | | | [place] | [place], | Phone: | | | | | [place] | [place] [address] | [phone] | | | | | INJECTION, | Phone: | Fax: | | | | | [address] [place] | [phone] | [phone] | | | | | ONDANSETRON | Fax: | | | | | | HCL | [phone] | | | | | | INJECTION, 1 | | | | | | | MG NV | | | | | | | DEXAMETHASON | | | | | | | E SODIUM | | | | | | | PHOS, 1 MG | | | | | | | NV | | | | | | | FOSAPREPITAN | | | | | | | T INJECTION, | | | | | | | 1 MG NV | | | | | | | LORAZEPAM | | | | | | | INJECTION, 2 | | | | | | | MG NV | | | | | | | OXALIPLATIN, | | | | | | | .5 MG NV | | | | | | | LEUCOVORIN | | | | | | | CALCIUM | | | | | | | INJECTION, | | | | | | | 50 MG NV | | | | | | | DIPHENHYDRAM | | | | | | | INE HCL | | | | | | | INJECTIO, 50 | | | | | | | MG NV | | | | | | | METHYLPREDNI | | | | | | | SOLONE | | | | | | | INJECTION, | | | | | | | 125 MG NV | | | | | | | ALBUTEROL | | | | | | | COMP CON, 1 | | | | | | | MG NV | | | | | | | ALBUTEROL | | | | | | | NON-COMP | | | | | | | CON, 1 MG | | | | | | | NV | | | | | | | INJECTION, | | | | | | | FAMOTIDINE, | | | | | | | 20 MG NV | | | | | | | NORMAL | | | | | | | SALINE | | | | | | | SOLUTION | | | | | | | INFUS, 500 | | | | | | | ML NV | | | | | | | NORMAL | | | | | | | SALINE | | | | | | | SOLUTION | | | | | | | INFUS, 250 | | | | | | | ML NV | | | | | | | STERILE | | | | | | | WATER/SALINE | | | | | | | , 10 ML NV | | | | | | | CHEMOTHER, | | | | | | | IV PUSH,EA | | | | | | | ADD DRUG NV | | | | | | | CHEMOTHER, | | | | | | | IV INFUSION, | | | | | | | 1 HR NV | | | | | | | CHEMOTHER, | | | | | | | IV INFUSION, | | | | | | | EA HR NV | | | | | | | CHEMOTHER,NO | | | | | | | N-HORMONE | | | | | | | ANTI-NEOPL, | | | | | | | SUB-Q/IM NV | | | | | | | CHEMOTHER | | | | | | | HORMON | | | | | | | ANTINEOPL | | | | | | | SUB-Q/IM NV | | | | | | | NA FERRIC | | | | | | | GLUCONATE | | | | | | | COMPLEX, | | | | | | | 12.5 MG NV | | | | | | | IRON SUCROSE | | | | | | | INJECTION, | | | | | | | 1 MG | | | +--------+--------+ + + + + Encounter Details +--------+ + + + + | Date | Type | Department | Care Team | Description | +--------+ + + + + | 01/31/ | Hospital | [facility] | Janel, | Rectal cancer (HCC) | | 2017 | Encounter | MED CTR CHEMO | Mike White MD [address] | | | | | INFUSION [address] | [address] [facility] | | | | | [place], | [place] [address] | | | | | [place] [address] | [phone] | | | | | [phone] | | | +--------+ + + + [...] [address] | [place] | [phone] | | [facility] | | [address] | | | - LABORATORY | | [...] | | | FILTRATION | mL/min/1.73m2 | [facility] | | | [place] | RATE,ESTIMATED | | MEDICAL | | | | mL/min/1.03d9Qvek than | | CENTER - | | [...] [address] | [place] | [phone] | | [facility] | | [address] | | | - LABORATORY | | [...] [address] | [place] | [phone] | | [facility] | | [address] | | | - LABORATORY | | [...]
--- OUTSIDE RECORDS SUMMARY | ~2019-06-11 | XMS | Encounter Summary ---
Demographics + + + | Address | [address] | | | [place] [address] | + + + | Home Phone [...] Team Providers + +------+ + | Care Boomboat Operator Name | Role | Phone | [...] Outside Records | | 2017 | | [place] at [facility] [address] | [address] | Received (UA | | | | [address] | Amita Hines [place], | 07/14/2017) | | | | Mailcode: [place] | [place] [address] | | | | | for Health and | [phone] | | | | | [facility] 2 | | | | | | [place], [place] | | | | | | [address] | | | | | | [phone] | | | +--------+ + + + [...] | | | | | | [place] [address] | | | | | | [phone] | | | | | | | | +--------+---------+ + + + documented as of this encounter Visit Diagnoses Not on filedocumented in this encounter"
--- OUTSIDE RECORDS SUMMARY | ~2019-06-11 | XMS | Encounter Summary ---
Demographics + + + | Address | [address] | | | [place] [address] | + + + | Home Phone [...] Providers + +------+ + | Care Accountant Supervisor Name | Role | Phone | [...] | 2018 | Encounter | Center at [facility] [address] | [address] | | | | | [address] | Amita Hines [place], | | | | | Mailcode: [place] | [place] [address] | | | | | [facility] and | [phone] | | | | | [facility] [address] | | | | | | [place], [place] | | | | | | [address] | | | | | | [phone] | | | +--------+ + + + [...] | | | | Amita H[place], | | | | | | [place] [address] | | | | | | [phone] | | | | | | | | +--------+---------+ + + + documented as of this encounter Visit Diagnoses Not on filedocumented in this encounter"
--- OUTSIDE RECORDS SUMMARY | ~2019-06-11 | XMS | Encounter Summary ---
Demographics + + + | Address | [address] | | | [place] [address] | + + + | Home Phone [...] + + | Author | [facility] | | | and [place] | + + + | Organization | [facility] | | | and [place] | + + + | Address | Unknown | + + + | Phone | Unavailable | + + + Support + + + + + | Name | Relationship | Address | Phone | + + + + + | Lamar Phillips | REZA | [place] [address] | | + + + + + Care Team Providers + +------+ + | Care Casino Enforcement Agent Name | Role | Phone | [...] + + | 12/27/ | Hospital | [facility] | [facility], | Rectal cancer (HCC) | | 2017 | Encounter | [facility] | Sirena White MD [address] | (Primary Dx) | | | | [facility]COLOGY CLIN[facility] [address] | [facility] | | | | | [address] [facility] | [place] [address] | | | | | [place] [address] | [phone] | | | | | [phone] | | | +--------+ + + + [...] nt from the original. Hematology/Oncology Progress Note [facility] LETY Cheema Pt. Name/Age/: Paulette Byrnes 56 y.o. 1960 Med. Record Number: [id number] Date of admission: 12/27/2016 The patient's primary care provider is Kristian Andersno DO. Identifying Statement: Paulette Byrnes is a 56 y.o. female from [address] [place] [address] with Locally Advanced Rectal Cancer. The patient chart and medications were reviewed in detail and the patient was seen and exam ined. History of Present Illnesses, their Current Assessments and Plans: Problem List Rectal cancer Overview ACTIVE DIAGNOSIS: Locally Advanced Rectal Cancer. 1. Paulette presented to the [facility] [...] cm within the rectum. Biopsy specimen number [id number] evaluated by Dr. Felipe Nixon of [facility] was notable for a tubular adenoma without high-grade dysplasia or overt carcinoma. This proced ure also included a full colonoscopy through the ostomy were 2 additional polyps were remove d, a tubular adenoma at 35 cm and a hyperplastic polyp at [address] C/A/P at [facility] in [place], [place] demonstrated no evidence of metastatic disease. 4. On September 22, 2016 Dr. Thacker placed in internal jugular Port-A-Cath without complications. 5. MRI of pelvis performed on October 05, 2016 at [facility]: Rectal mass 7.7 cm x 6.2 cm x 9.6 cm in length located within 3 cm of the anal sphincter and 6.4 cm from the anal verge with radi ographic extension though multiple areas of the bowel wall. 6. CT abdomen/pelvis also at [facility] October 05, 2016; large almost completely circumferential [...] the tumor proper. Concerns raised by the [facility] Tumor Board were that the prior [...] as well as mutation analysis." Pathological Specimen #[id number] ([facility]). 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 "This is highly suspicious for invasive malignancy. Presence of absence of an invasive lesi on cannot be established with certainty." Current Assessment & Plan Paulette Byrnes returned to clinic with a milk pickup driver for cycle #6 Folfox chemotherapy f or [...] Dr. Ailyn Wolff with advance imaging at [facility] has been cancel led. There is no [...] 11/29/2016 18:28 ARRANGE FOR PUMP OFF AT [facility] ON Tuesday PLEASE QFU CBC,CMP, LDH, CEA [...] this chart may have been created with [place] [employer] voice recognition software. Occasi onal wrong-word or [...]
--- OUTSIDE RECORDS SUMMARY | ~2019-06-11 | XMS | Encounter Summary ---
Demographics + + + | Address | [address] | | | [place] [address] | + + + | Home Phone [...] Organization | [facility] | | | and [place] | + + + | Address | Unknown | + + + | Phone | Unavailable | + + + Support + + + + + | Name | Relationship | Address | Phone | + + + + + | Lamar Phillips | REZA | [place] [address] | | + + + + + Care Team Providers + +------+ + | Care Freight Car Cleaner Name | Role | Phone | + +------+ + | Kristian Anderson DO | PCP | | + +------+ + Encounter Details +--------+ + + + + | Date | Type | Department | Care Team | Description | +--------+ + + + + | 10/14/ | Documentati | [facility] | Janel, | | | 2017 | on | [facility] | Mike White MD [address] | | | | | ONCOLOGY CLINIC [address] | [address] | | | | | [place] | [place] [address] | | | | | [place] [address] | [phone] | | | | | [phone] | | | +--------+ + + + [...]
--- OUTSIDE RECORDS SUMMARY | ~2019-06-11 | XMS | Encounter Summary ---
Demographics + + + | Address | [address] | | | [place] [address] | + + + | Home Phone [...] Team Providers + +------+ + | Care Estimate Clerk Name | Role | Phone | [...] | | 2019 | | Center at [facility] [address] | [address] | Received | | | | [address] | [place], | | | | | Mailcode: [place] | [place] [address] | | | | | for Health and | [phone] | | | | | [facility] [address] | | | | | | [place], [place] | | | | | | [address] | | | | | | [phone] | | | +--------+ + + + [...] | | | | | [place], | | | | | | [place] [address] | | | | | | [phone] | | | | | | | | +--------+---------+ + + + documented as of this encounter Visit Diagnoses Not on filedocumented in this encounter"
--- OUTSIDE RECORDS SUMMARY | ~2019-06-11 | XMS | Encounter Summary ---
Demographics + + + | Address | [address] | | | [place] [address] | + + + | Home Phone [...] Team Providers + +------+ + | Care Kiln Stacker Name | Role | Phone | + +------+ + | Kristian Anderson DO | PCP | | + +------+ + Encounter Details +--------+ + + + + | Date | Type | Department | Care Team | Description | +--------+ + + + + | 01/03/ | Document-Sc | Health Information | Unknown . | | | 2017 | anned | Services [address] | | | | | | [address] | | | | | | Mailcode: OP17A | | | | | | [facility] | | | | | | [place], [place] | | | | | | [address] | | | | | | [phone] | | | +--------+ + + + [...] | | | | | | [place] [address] | | | | | | [phone] | | | | | | | [...]
--- OUTSIDE RECORDS SUMMARY | ~2019-06-11 | XMS | Encounter Summary ---
Demographics + + + | Address | [address] | | | [place] [address] | + + + | Home Phone [...] Team Providers + +------+ + | Care Armature Winder Repairer Name | Role | Phone | [...] | | | | Pre-operativ | [address] | | | | | | e | [address] | | | | | | cardiovascul | [place], | | | | | | ar | [place] | | | | | | examination | [address] | | | | | | Tobacco | Phone: | | | | | | abuse | [phone] | | | | | | Dyspnea, | Fax: | | | | | | unspecified | [phone] | | | | | | type [...] | | | | | | at [facility] [address] | | | | | | [address] Mailcode: | | | | | | [address] | | | | | | Health and Healing, | | | | | | Building [address] | | | | | | [place], [place] | | | | | | [address] | | | | | | [phone] | | | +--------+ + + + [...] | | | | | [place], | | | | | | [place] [address] | | | | | | [phone] | | | | | | | [...] formed At | + +---- + | [facility] | [facility] DEPT OF | | [facility] [address] | [facility] | | [place], [place] [address] Ph: | | | Pt Name: JENN BYRNES | | | Study Date/Time 10/06/2016 / 8:59:07 AMMRN: [id number] | | | Most recent prior: -Acc #: [id number] | | | No. previous echos: 0DOB: 1960 55 years Heart Rate: | | | 78 bpmHeight: 63.0 in Blood | | | Pressure: 131/69 mm/HgWeight: 142.0 lb | | | Gender: FBSA: 1.67 m2 | | | Order ID: [id number] Oxyhydrogen Welder: Brandon Hwang MA, | | | [facility] Referring Provider: Brittany Rojas Location: | [...] Report electronically signed by: | | | [id number] Cole Chávez MD (10/06/2016, 10:21:24 AM)REPORT | | | EVFM=[id number] HOSP=PO REGION=A0 Final | | | cm [...] | | | |Report electronically signed by: [id number] Cole Chávez MD (10/06/2016, 10:21:24 | | |AM) | | |REPORT ITNU=[id number] HOSP=PO REGION=A0 | | | | | | | | | | | | Final | | + +---- + + + | Procedure Note | + + | Interface, Cardiology Results - 10/06/2016 10:21 AM [facility] | | [facility] Echocardiography Laboratory [address] [place] [address] | | [place], [place] [address] Pt Name: JENN | | BRITTANY BYRNES Study Date/Time 10/06/2016 / 8:59:07 AMMRN: [id number] | | Most recent prior: -Acc #: [id number] No. previous echos: 0DOB: | | 1960 55 years Heart Rate: 78 bpmHeight: 63.0 in Blood | | Pressure: 131/69 mm/HgWeight: 142.0 lb Gender: FBSA: | | 1.67 m2 Order ID: [id number] Oxyhydrogen Welder: Brandon Hwang MA, | | RDCSReferring Provider: [...] | indexed values Report electronically signed by: [id number] Cole Chávez MD | | (10/06/2016, 10:21:24 AM)REPORT WNLR=[id number] HOSP=PO REGION=A0 Final | |ventricular ejection fraction [...] | | | |Report electronically signed by: [id number] Cole Chávez MD (10/06/2016, 10:21:24 | |AM) | |REPORT MEAP=[id number] HOSP=PO REGION=A0 | | | | | | | | Final | + + + + + + + | Performing | Address | City/State[facility] | Phone Number | | Organization | | | | + + + + + | [facility] | [address] | [place], [place] | | | CARDIOLOGY | [address] | [address] | | + + + + + documented in this encounter Visit Diagnoses + + | Diagnosis | + + | Pre-operative cardiovascular examination | + + | Tobacco abuse Tobacco use disorder | + + | Dyspnea, unspecified type | + + | Aortic systolic murmur on examination | + + documented in this encounter"
--- OUTSIDE RECORDS SUMMARY | ~2019-06-11 | XMS | Encounter Summary ---
Demographics + + + | Address | [address] | | | [place] [address] | + + + | Home Phone [...] Team Providers + +------+ + | Care Parole Agent Name | Role | Phone | [...] | 2019 | | Center at [facility] [address] | [address] | Review | | | | [address] | [place], | | | | | Mailcode: [place] | [place] [address] | | | | | for Health and | [phone] | | | | | [facility] | | | | | | [place], [place] | | | | | | [address] | | | | | | [phone] | | | +--------+ + + + [...] | | | | | | [place] [address] | | | | | | [phone] | | | | | | | | +--------+---------+ + + + documented as of this encounter Visit Diagnoses Not on filedocumented in this encounter"
--- OUTSIDE RECORDS SUMMARY | ~2019-06-11 | XMS | Encounter Summary ---
Demographics + + + | Address | [address] | | | [place] [address] | + + + | Home Phone [...] + + | Author | [facility] | | | and [place] | + + + | Organization | [facility] | | | and [place] | + + + | Address | Unknown | + + + | Phone | Unavailable | + + + Support + + + + + | Name | Relationship | Address | Phone | + + + + + | Lamar Phillips | REZA | [place] [address] | | + + + + + Care Team Providers + +------+ + | Care Broadcast Systems Engineer Name | Role | Phone | [...] + + | 11/15/ | Hospital | [facility] | [facility], | Rectal cancer (HCC) | | 2017 | Encounter | [facility] | Sirena White MD [address] | (Primary Dx) | | | | ONCOLOGY CLINIC [address] | [facility] | | | | | W [facility] | [place] [address] | | | | | [place] [address] | [phone] | | | | | [phone] | | | +--------+ + + + [...] + + + | Blood Pressure | 122/72 | 11/15/2016 9:27 AM | | | | | PDT | | + + + + + | Pulse | 84 | 11/15/2016 9:27 AM | | | | | PDT | | + + + + + | Temperature | 35.8 C (96.4 F) | 11/15/2016 9:27 AM | | | | | PDT | | + + + + + | Respiratory Rate | 16 | 11/15/2016 9:27 AM | | | | | PDT | | + + + + + | Oxygen Saturation | 97% | 11/15/2016 9:27 AM | | | | | PDT | | + + + + + | Inhaled Oxygen | - | - | | | Concentration | | | | + + + + + | Weight | 63.8 kg (140 lb 11.2 | 11/15/2016 9:27 AM | | | | oz) | PDT | | + + + + + | Height | - | - | | + + + + + | Body Mass Index | 24.15 | 10/18/2016 11:04 AM | | | [...] encounter Progress Notes Sirena Helton MD - 11/15/2016 9:02 AM PDTFormatting of this note might be differe nt from the original. Hematology/Oncology Progress Note [place], [place] Pt. Name/Age/: Paulette Byrnes 55 y.o. 1960 Med. Record Number: [id number] Date of admission: 11/15/2016 The patient's primary care provider is Kristian Anderson DO. Identifying Statement: Paulette Byrnes is a 55 y.o. female from [address] [place] [address] with Locally Advanced Rectal Cancer. The patient chart and medications were reviewed in detail and the patient was seen and exam ined. History of Present Illnesses, their Current Assessments and Plans: Problems That Were Updated This Visit Rectal cancer Overview ACTIVE DIAGNOSIS: Locally Advanced Rectal Cancer. 1. Paulette presented to the [facility] [...] cm within the rectum. Biopsy specimen number [id number] evaluated by Dr. Felipe Nixon of [facility] was notable for a tubular adenoma without high-grade dysplasia or overt carcinoma. This proced ure also included a full colonoscopy through the ostomy were 2 additional polyps were remove d, a tubular adenoma at 35 cm and a hyperplastic polyp at [address] C/A/P at [facility] in [place], [place] demonstrated no evidence of metastatic disease. 4. On September 22, 2016 Dr. Thacker placed in internal jugular Port-A-Cath without complications. 5. On October 14, 2016 Paulette was evaluated by Dr. Ailyn Wolff and Dr. Shea Mcneill of the [facility] where her case was presented to their tumor board. Clinical exa phillip is notable for an overt rectal carcinoma invading into the vagina. 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 Concerns raised by the [facility] Tumor Board were that the prior [...] as well as mutation analysis." [id number] 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 "This is highly suspicious for invasive malignancy. Presence of absence of an invasive lesi on cannot be established with certainty." Current Assessment & Plan Paulette Byrnes returned to clinic on 11/15/2016 for follow up and Cycle #3 of FOLFOX n eoadjuvant chemotherapy for Locally advanced rectal cancer. Chief complaints are nausea (without emesis), vertigo (without orthostasis), and anxiety. She is under the care of Dr. Thacker for ZAIN drain exit site infection with topical Bactroban. She reports that her ZAIN drain is putting out less than 30 cc a day, but is not measuring it quantitatively. She denies fevers or chills. Clinical exam is notable for the fact that her ZAIN drain fluid is blood-tinged, but more ser osanguineous. Laboratory exam is notable for hypoplastic anemia with iron saturation less than 20%. Assessment; Locally advanced rectal cancer. 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 Plan; Cycle #3 of a planned six cycles of FOLFOX neoadjuvant chemotherapy, to be followed b y external beam radiation with continuous intravenous infusion of 5FU, to be followed by alberto banks. Review of Systems: REVIEW OF SYSTEMS Constitutional: Reports energy level is low. Reports nausea is worsening but states lorazep am is helpful, has vomited twice. Reports night sweats 2-3 times per week for the last 2 wee ks. Appetite comes and goes. Denies high fevers, shaking chills, anorexia, weight loss. Ear, Nose, Mouth, Throat: Reports intermittent left ear tinnitus continues, unchanged. Ranjan es odynophagia, dysphagia. Cardiovascular: Denies shortness of breath, dyspnea on exertion, chest pain, palpitations o r orthopnea. Respiratory: Denies cough, hemoptysis, or sputum production. Gastrointestinal: Left middle abdominal pain related to hernia. States it has been more jayant nful recently, states she has an infection where her drain tube is. States she has been pres cribed topical mupirocin ointment on 11/09, has been using this twice daily and infection is improving. Reports pink drainage in ZAIN drain. Denies constipation, diarrhea, melena, or brig ht red blood per rectum. Genitourinary: Denies hematuria or dysuria. Musculoskeletal: Denies joint pain or tenderness. Neurologic: Reports vertigo on 11/09, states it hasn't happened since. Reports headache when she wakes up for the last 3 days. States it goes away on its own. Denies visual changes, o r numbness/tingling of the extremities. Endocrine: Denies peripheral edema or heat/cold intolerance. Hematologic: Denies spontaneous bruising or bleeding. Integumentary: Redness around drain site, improving with topical antibiotic use. Denies don h, wounds or other skin concerns. Pain: Denies pain. Note: Here for follow up, labs and 5 hour treatment. My chart: Active Scheduled Medications: [...] as needed (Nausea/V omiting). 20 tablet 5 mupirocin (BACTROBAN) 2% ointment Apply topically 2 [...] Route Frequency Provider Last Rate Last Dose ferric gluconate (FERRLECIT) 125 mg in sodium chloride 0.9% 100 mL IVPB 125 mg Intrave nous Once Sirena Helton MD fluorouracil 4,050 mg in sodium chloride 0.9% 11 mL CADD PUMP chemo infusion 2,400 mg/ m2 (Order-Specific) Intravenous Q46H Sirena Helton MD fosaprepitant (EMEND) 150 mg in sodium chloride 0.9% 150 mL IVPB 150 mg Intravenous On ce Sirena Helton MD leucovorin 340 mg in dextrose 5% 250 mL infusion 200 mg/m2 (Order-Specific) Intravenou s Once Sirena Helton MD ondansetron (ZOFRAN) 8 mg, dexamethasone (DECADRON) 4 mg in sodium chloride 0.9% 50 mL IVPB Intravenous Once Sirena Helton MD oxaliplatin (ELOXATIN) 135 mg in dextrose 5% 223 mL chemo infusion 80 mg/m2 (Order-Spe cific) Intravenous Once Sirena Helton MD Allergies: Allergy: Allergies Allergen Reactions Propoxyphene Past [...] cancer Lichen sclerosus Objectives: Temp: 35.8 C (96.4 F) BP: 122/72 mmHg Pulse: 84 Resp: 16 SpO2: 97 % on Min/Max Temp past 24 hours:Temp Av.8 C (96.4 F) Min: 35.8 C (96.4 F) Max: 3 5.8 C (96.4 F) No intake or output data in the 24 hours ending 11/15/16 1015 Wt. Admission: Weight: 63.821 kg (140 lb 11.2 oz) Wt. Current: Weight: 63.821 kg (140 l b 11.2 oz) Wt Readings from Last 3 Encounters: 11/15/16 63.821 kg (140 lb 11.2 oz) [...] John Paul Baer., Jumana, RMichael., Fransisca Baltazar., Jason Roque, Thaddeus TLuis Alfredo., [...] for PAULETTE BYRNES ( ) as of 11/15/2016 10:16 Ref. Range 11/15/2016 08:36 WBC Latest Ref Range: 4.0-11.0 K/uL 6.8 RBC: Latest Ref Range: 3.70-5.20 M/uL 4.11 Hgb Latest Ref Range: 11.5-16.0 g/dL 10.0 (L) Hct, Final Latest Ref Range: 34.0-47.0 % 31.3 (L) MCV Latest Ref Range: 83.0-101.0 fL 76.1 (L) MCH Latest Ref Range: 28.0-35.0 pg 24.4 (L) MCHC Latest Ref Range: 32.0-36.0 g/dL 32.1 RDW-CV Latest Ref Range: <15.0 % 18.4 (H) Platelet Count Latest Ref Range: 140-440 K/uL 440 MPV Latest Units: fL 6.0 Absolute Neutrophils Latest Ref Range: 1.80-8.50 K/uL 4.50 Absolute Lymphocytes Latest Ref Range: 0.60-3.20 K/uL 1.20 Absolute Monocytes Latest Ref Range: 0.00-1.00 K/uL 0.70 Absolute Eosinophils Latest Ref Range: 0.00-0.40 K/uL 0.30 Absolute Basophils Latest Ref Range: 0.00-0.10 K/uL 0.10 % Neutrophils Latest Ref Range: 45.0-82.0 % 66.2 % Lymphocytes Latest Ref Range: 20.0-45.0 % 17.6 (L) % Monocytes Latest Ref Range: 4.0-12.0 % 10.3 % Eosinophils Latest Ref Range: 0.0-5.0 % 4.9 % Basophils Latest Ref Range: 0.0-1.0 % 1.0 NA Latest Ref Range: 136-149 mmol/L 142 K Latest Ref Range: 3.5-5.1 mmol/L 4.3 Chloride Latest Ref Range: 98-109 mmol/L 104 Carbon dioxide Latest Ref Range: 24-31 mmol/L 27 ANION GAP Latest Ref Range: 3-16 mmol/L 11 GLUCOSE Latest Ref Range: 70-109 mg/dL 90 BUN Latest Ref Range: 7-18 mg/dL 12 Creatinine Latest Ref Range: 0.60-1.30 mg/dL 0.52 (L) BUN/CREA Unknown 23.1 ALBUMIN Latest Ref Range: 3.2-5.0 g/dL 2.8 (L) Albumin/Globulin ratio Latest Ref Range: 0.8-2.0 0.8 Total protein Latest Ref Range: 6.0-7.8 g/dL 6.4 EGFR IF NOT Latest Ref Range: >=60 mL/min/1.73m2 >60 Calcium Latest Ref Range: 8.3-10.5 mg/dL 9.0 ALK PHOS Latest Ref Range: 40-110 U/L 149 (H) ALT (SGPT) (REF) Latest Ref Range: 6-45 U/L 35 AST (SGOT) (REF) Latest Ref Range: 10-42 U/L 24 LDH TOTAL Latest Ref Range: 91-180 U/L 146 BILIRUBIN TOTAL Latest Ref Range: 0.1-1.5 mg/dL 0.4 GLOBULIN Latest Ref Range: 2.1-3.8 g/dL 3.6 FERRITIN Latest Ref Range: 11-307 ng/mL 127 IRON Latest Ref Range: 40-150 ug/dL 28 (L) TIBC Latest Ref Range: 235-425 ug/dL 323 % SATURATION Latest Ref Range: 20.0-55.0 % 8.7 (L) Transferrin Latest Ref Range: 240.0-480.0 mg/dL 230.8 (L) Pharmacovigilance: Palliative Care: Patient's Medications New Prescriptions No medications on file Modified Medications No medications on file Discontinued Medications AMOXICILLIN (AMOXIL) 500 MG CAPSULE Take 500 mg by mouth 3 times daily. WILL FINISH ON 11/02/2016. Procedure: Day 1, Cycle 3 (14-day cycle) Released on 11/15/2016 9:56; Originally planned for 11/16/19 17 Labs Iron and Transferrin STAT, ONE TIME, Tue11/15/16 at 0836, For 1 occurrence OrderHistory Ferritin STAT, ONE TIME, Tue11/15/16 at 0836, For 1 occurrence OrderHistory Lactate Dehydrogenase STAT, ONE TIME, 11/15/16 at 0836, For 1 occurrence OrderHistory Comprehensive Metabolic Panel STAT, ONE TIME, 11/15/16 at 0836, For 1 occurrence OrderHistory CBC with Differential STAT, ONE TIME, Tue11/15/16 at 0836, For 1 occurrence OrderHistory Nursing Orders OK to proceed with chemotherapy 11/15/16-- INFORMED CONSENT: The nature and character of the proposed treatment with Cycle #3 FOLFOX w ith Ferrlecit and the anticipated results of the proposed treatment with Cycle #3 FOLFOX wit h Ferrlecit;recognized alternative forms of treatment, including non-treatment; the risks be nefits, and side effects of proposed treatment, alternative treatments and non-treatment wer e discussed with the patient who consents to proceed with treatment with Cycle #3 FOLFOX wit h Ferrlecit. The treating provider has examined the patient and reviewed the diagnostic data , including laboratory data, and deems that it is safe and appropriate to proceed with treat ment with Cycle #3 FOLFOX with Ferrlecit. SIRENA HELTON MD. OrderHistory Plans for discharge 11/03- APPROVED-FERRLICIT Pump off in michael QFU CBC,CMP, LDH, CEA * PORT DRAW AND 4 HOUR RX IN 14 DAYS QFU CBC,CMP, LDH, CEA * PORT DRAW AND 4 HOUR RX IN 28 DAYS OrderHistory Pre-Medications ondansetron (ZOFRAN) 8 mg, dexamethasone (DECADRON) 4 mg in sodium chloride 0.9% 50 m L IVPB Intravenous, for 16 Minutes, ONCE, Tue11/15/16 at 1015, For 1 dose Administer 30 minutes prior to chemotherapy. OrderHistory fosaprepitant (EMEND) 150 mg in sodium chloride 0.9% 150 mL IVPB 150 mg, Intravenous, for 20 Minutes, ONCE, Tue11/15/16 at 1030, For 1 dose Do not shake bag. OrderHistory PRN Medications LORazepam (ATIVAN) 2 mg/mL injection 1 mg 1 mg, Intravenous, PRN, Anxiety, Nausea/Vomiting, Starting when released, for 1 dose Administer prior to chemotherapy. OrderHistory CHEMOTHERAPY ferric gluconate (FERRLECIT) 125 mg in sodium chloride 0.9% 100 mL IVPB 125 mg, Intravenous, for 1 Hours, ONCE, Tue11/15/16 at 1045, For 1 dose Keep in refrigerator. OrderHistory oxaliplatin (ELOXATIN) 135 mg in dextrose 5% 223 mL chemo infusion 135 mg (rounded from 135.2 mg = 80 mg/m2 1.69 m2 Order-specific BSA), Intravenous, f or 2 Hours, ONCE, Tue11/15/16 at 1145, For 1 dose Chemotherapy: Use [...] BSA), Intravenous, fo r 2 Hours, ONCE, Tue11/15/16 at 1145, For 1 dose Administer via y-site with oxaliplatin OrderHistory fluorouracil 4,050 mg in sodium chloride 0.9% 11 mL CADD PUMP chemo infusion 4,050 mg (rounded from 4,056 mg = 2,400 mg/m2 1.69 m2 Order-specific BSA), Intraveno us, for 46 Hours, EVERY 46 HOURS, First dose on Tue11/15/16 at 1345 OUTPATIENT Chemotherapy: Use appropriate handling [...] this chart may have been created with [employer] voice recognition software. Occasi onal wrong-word or [...]
--- OUTSIDE RECORDS SUMMARY | ~2019-06-11 | XMS | Encounter Summary ---
Demographics + + + | Address | [address] | | | [place] [address] | + + + | Home Phone [...] Providers + +------+ + | Care Safety Aide Name | Role | Phone | [...] | F[address] | Amita Hines [place], | | | | | Mailcode: [place] | [place] [address] | | | | | for Health and | [phone] | | | | | [facility] 2 | | | | | | [place], [place] | | | | | | [address] | | | | | | [phone] | | | +--------+---------+ + + + [...] rectal bleeding on 07/19/16 went to the [facility] ED CT abdomen/pelvis with IV contrast [...] from anal verge presented at the [facility] Multidisciplinary GI Oncology Conference on 10/07/16 [...] Mendoza pouch staple line presented at [facility] Multidisciplinary GI Oncology Conference on 03/10/17. [...] ([facility], 05/17/17) close to pelvic sidewall [facility] Multidisciplinary GI Oncology Conference (06/02/17) Recommendations [...] with primary anast omosis, placement of a 19-Bahraini Albert drain through the right lower quadrant [...] wit h primary anastomosis, placement of a 19-Bahraini Albert drain through the right lower quadrant [...] Return/Re-evaluation patient, I spent 13 minutes of duag-ik-aihd time, of which m ore than half the time was spent in counseling. 4 minute document review [facility] umented in this encounter Plan of Treatment +--------+---------+ + + + | Date | Type | Specialty | Care Team | Description | +--------+---------+ + + + | 06/18/ | Office | Surgery | Ailyn Wolff MD | | | 2018 | Visit | | [address] | | | | | | Amita Hines [place], | | | | | | [place] [address] | | | | | | [phone] | | | | | | | | +--------+---------+ + + + documented as of this encounter Visit Diagnoses + + | Diagnosis | + + | 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
--- OUTSIDE RECORDS SUMMARY | ~2019-06-11 | XMS | Encounter Summary ---
Demographics + + + | Address | [address] | | | [place] [address] | + + + | Home Phone [...] Team Providers + +------+ + | Care Lap Machine Operator Name | Role | Phone [...] | Encounter | Center at [facility] [address] | [address] | | | | | [address] | Amita Hines [place], | | | | | Mailcode: [place] | [place] [address] | | | | | for Health and | [phone] | | | | | [facility] 2 | | | | | | [place], [place] | | | | | | [address] | | | | | | [phone] | | | +--------+ + + + [...] | | | | | | [place] [address] | | | | | | [phone] | | | | | | | | +--------+---------+ + + + documented as of this encounter Visit Diagnoses Not on filedocumented in this encounter"
--- OUTSIDE RECORDS SUMMARY | ~2019-06-11 | XMS | Encounter Summary ---
Demographics + + + | Address | [address] | | | [place] [address] | + + + | Home Phone [...] + | Organization | [facility] | | | and [place] | + + + | Address | Unknown | + + + | Phone | Unavailable | + + + Support + + + + + | Name | Relationship | Address | Phone | + + + + + | Lamar Phillips | REZA | [place] [address] | | + + + + + Care Team Providers + +------+ + | Care Qual Field Manager Name | Role | Phone | [...] + + | 11/29/ | Hospital | [facility] | Jan[place], | | | 2017 | Encounter | MED CTR NUTRITION | Mike White MD [address] | | | | | SERVICES [address] [place] | | | | | [place], | [place] [address] | | | | | [place] [address] | [phone] | | | | | [phone] | | | | | | | [...] milkshakes. She also found some soups at [facility] that she likes. Darcie ng meals is [...]
--- OUTSIDE RECORDS SUMMARY | ~2019-06-11 | XMS | Encounter Summary ---
Demographics + + + | Address | [address] | | | [place] [address] | + + + | Home Phone | | + + + | Preferred Language | Unknown | + + + | Marital Status | | + + + | Buddhist Affiliation | Unknown | + + + | Race | Unknown | + + + | Ethnic Group | Unknown | + + + Author + + + | Author | [facility] | | | and [place] | + + + | Organization | [facility] | | | and [place] | + + + | Address | Unknown | + + + | Phone | Unavailable | + + + Support + + + + + | Name | Relationship | Address | Phone | + + + + + | Lamar Phillips | REZA | [place] [address] | | + + + + + Care Team Providers + +------+ + | Care Bucket Hooker Name | Role | Phone | + [...] DIAZ | | | | | [address] [place] | [place] [address] | | | | | [place] [address] | [phone] | | | | | [phone] | | | +--------+ + + + [...]
--- OUTSIDE RECORDS SUMMARY | ~2019-06-11 | XMS | Encounter Summary ---
Demographics + + + | Address | [address] | | | [place] [address] | + + + | Home Phone [...] Providers + +------+ + | Care Plaster Machine Tender Name | Role | Phone [...] 2017 | | Center at [facility] [address] | [address] | Received (10/27/2016 | | | | [address] | Amit[place] H[place], | Op notes and | | | | Mailcode: [place] | [place] [address] | Pathology) | | | | for Health and | [phone] | | | | | [facility] 2 | | | | | | [place], [place] | | | | | | [address] | | | | | | [phone] | | | +--------+ + + + [...] | | | | | [place], | | | | | | [place] [address] | | | | | | [phone] | | | | | | | | +--------+---------+ + + + documented as of this encounter Visit Diagnoses Not on filedocumented in this encounter"
--- OUTSIDE RECORDS SUMMARY | ~2019-06-11 | XMS | Encounter Summary ---
Demographics + + + | Address | [address] | | | [place] [address] | + + + | Home Phone [...] Team Providers + +------+ + | Care Lathe Sander Name | Role | Phone | + +------+ + | Kristian Anderson DO | PCP | | + +------+ + Encounter Details +--------+ + + + + | Date | Type | Department | Care Team | Description | +--------+ + + + + | 05/05/ | Telephone | Digestive Health | Ailyn Wolff MD | | | 2017 | | [place] at [facility] [address] | [address] | | | | | [address] | Amita Hines [place], | | | | | Mailcode: [place] | [place] [address] | | | | | for Health and | [phone] | | | | | [facility] 2 | | | | | | [place], [place] | | | | | | [address] | | | | | | [phone] | | | +--------+ + + + [...] | | | | | [place], | | | | | | [place] [address] | | | | | | [phone] | | | | | | | | +--------+---------+ + + + documented as of this encounter Visit Diagnoses Not on filedocumented in this encounter"
--- OUTSIDE RECORDS SUMMARY | ~2019-06-11 | XMS | Encounter Summary ---
Demographics + + + | Address | [address] | | | [place] [address] | + + + | Home Phone [...] | Organization | [facility] | | | and [place] | + + + | Address | Unknown | + + + | Phone | Unavailable | + + + Support + + + + + | Name | Relationship | Address | Phone | + + + + + | Lamar Phillips | REZA | [place] [address] | | + + + + + Care Team Providers + +------+ + | Care Postmaster Name | Role | Phone | + [...] neoplasm of | Mike C, | [address] | | | | | rectum (HCC) | MD [address] | [place], | | | | | Procedures | [address] | [place] [address] | | | | | MD | [place], | Phone: | | | | | [place] | [place] [address] | [phone] | | | | | INJECTION, | Phone: | Fax: | | | | | [address] | [phone] | [phone] | | | | | NORMAL | Fax: | | | | | | SALINE | [phone] | | | | | | SOLUTION [...] | 04/18/ | Hospital | [facility] | Calvin Landrum | Rectal cancer (HCC); | | 2017 | Encounter | MED CTR CHEMO | MD Mike [address] | Lichen sclerosus | | | | INFUSION [address] | [address] [place] | | | | | [place], | [place] [address] | | | | | [place] [address] | [phone] | | | | | [phone] | | | +--------+ + + + [...] | | | | | | [facility] | | | | [...] + | [facility] | [address] | [place] | [phone] | | [facility] | | [address] | | | - LABORATORY | | [...] | mL/min/1.73m2 | DONALD | | | INDONESIAN | RATE,ESTIMATED | | MEDICAL | | | | mL/min/1.90f5Akpw than | | CENTER - | | [...] | 8.4 | 8.3 - 10.5 | [facility] | | | | | mg/dL [...] + | [facility] | [address] | [place] | [phone] | | [facility] | | [address] | | | - LABORATORY | | [...] + | [facility] | [address] | [place] | [phone] | | [facility] | | [address] | | | - LABORATORY | | [...] JACOBSEN. | [address] | [place] | [phone] | | [facility] | | [address] | | | - LABORATORY | | [...]
--- OUTSIDE RECORDS SUMMARY | ~2019-06-11 | XMS | Encounter Summary ---
Demographics + + + | Address | [address] | | | [place] [address] | + + + | Home Phone [...] Team Providers + +------+ + | Care Photolithographer Name | Role | Phone | + [...] | | 2018 | | Center at [facility] [address] | [address] | and Ostomy Nurse) | | | | [address] | Amita Hines [place], | | | | | Mailcode: [place] | [place] [address] | | | | | for Health and | [phone] | | | | | [facility] 2 | | | | | | [place], [place] | | | | | | [address] | | | | | | [phone] | | | +--------+ + + + [...] | | | | | [place]mit[place], | | | | | | [place] [address] | | | | | | [phone] | | | | | | | | +--------+---------+ + + + documented as of this encounter Visit Diagnoses Not on filedocumented in this encounter"
--- OUTSIDE RECORDS SUMMARY | ~2019-06-11 | XMS | Encounter Summary ---
Demographics + + + | Address | [address] | | | [place] [address] | + + + | Home Phone [...] Team Providers + +------+ + | Care Apple Turner Name | Role | Phone | + [...] 2017 | | Center at [facility] [address] | [address] | Planning Conference | | | | [address] | [address] [place], | delayed) | | | | Mailcode: [place] | [place] [address] | | | | | for Health and | [phone] | | | | | [facility] 2 | | | | | | [place], [place] | | | | | | [address] | | | | | | [phone] | | | +--------+ + + + [...] | | | | | [place] [address], | | | | | | [place] [address] | | | | | | [phone] | | | | | | | | +--------+---------+ + + + documented as of this encounter Visit Diagnoses Not on filedocumented in this encounter"
--- OUTSIDE RECORDS SUMMARY | ~2019-06-11 | XMS | Encounter Summary ---
Demographics + + + | Address | [address] | | | [place] [address] | + + + | Home Phone | | + + + | Preferred Language | Unknown | + + + | Marital Status | | + + + | Evangelical Affiliation | Unknown | + + + | Race | Unknown | + + + | Ethnic Group | Unknown | + + + Author + + + | Author | [facility] | | | and [place] | + + + | Organization | [facility] | | | and [place] | + + + | Address | Unknown | + + + | Phone | Unavailable | + + + Support + + + + + | Name | Relationship | Address | Phone | + + + + + | Lamar Phillips | REZA | [place] [address] | | + + + + + Care Team Providers + +------+ + | Care Land Law Examiner Name | Role | Phone | + [...] + + | 01/24/ | Hospital | [facility] | Tayla Abernathy | Rectal cancer (HCC) | | 2017 | Encounter | [facility] | J, PharmD [address] | | | | | ONCOLOGY CLIN[address] | [address] | | | | | [address] | [place] [address] | | | | | [place] [address] | [phone] | | | | | [phone] | | | +--------+ + + + [...] + + + | Blood Pressure | 126/70 | 01/24/2017 10:07 AM | | | | | PDT | | + + + + + | Pulse | 88 | 01/24/2017 10:07 AM | | | | | PDT | | + + + + + | Temperature | 37.3 C (99.1 F) | 01/24/2017 10:07 AM | | | | | PDT | | + + + + + | Respiratory Rate | 16 | 01/24/2017 10:07 AM | | | | | PDT | | + + + + + | Oxygen Saturation | 96% | 01/24/2017 10:07 AM | | | | | PDT | | + + + + + | Inhaled Oxygen | - | - | | | Concentration | | | | + + + + + | Weight | 69.2 kg (152 lb 8 | 01/24/2017 10:07 AM | | | | oz) | PDT | | + + + + + | Height | - | - | | + + + + + | Body Mass Index | 26.18 | 10/18/2016 11:04 AM | | | [...] encounter Progress Notes Tayla Abernathy, PharmD - 01/24/2017 10:42 AM PDTFormatting of this note might be differ ent from the original. Clinical Oncology Pharmacy Services Progress Note [facility] Pt. Name/Age/: Jenn Parada 56 y.o. 1960 CSN: [id number] Date of service: 01/24/2017 Provider: Tayla Abernathy, PharmD Identifying Statement: Jenn Parada is a 56 y.o. female from [address] [place] [address] [place] [address], There were no encounter diagnoses. The patient chart and medications were reviewed in detail and the patient was seen and exam ined. Patient was referred to Clinical Oncology Pharmacist for follow up prior to treatment. Assessment and plan: Jenn is tolerating her continuous 5-FU infusion relatively well, now beginning her third we ek of therapy. 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 Laboratory exam is notable for the absence of my elosuppression. 1. Proceed with week #3 CIVI 5-FU at 225 mg/m2/day + RT. 2. UA with culture if indicated. 3. Patient wishes to try clotrimazole OTC for possible yeast infection. 4. Follow up in [address] Islas. Subjective: The patient chart and medications were reviewed in detail and the patient was seen and exam ined. Jenn Parada is a 56 y.o. female with advanced rectal cancer, here for pump refill an d follow up. Jenn has continued to tolerate both her FOLFOX and CIVI 5-FU relatively well. She continues to struggle with low energy, but has continued to work throughout her chemo/RT. No diarrhea or other GI dysfunction noted by patient. She has some mild nausea, relieved with ondansetr on. She continues to have low output from her ZAIN drain, but no fevers, chills, or shortness of breath. No other s/s of infection. Having dysuria as noted above. No bleeding or bruising . Appetite remains fair, weight is stable. PMH: Past Medical History: Diagnosis Date Hyperlipidemia [...] Cancer Mother Breast Review of Systems: Constitutional: Energy level is ok, somewhat low. Nausea continues. Denies high fevers, sh aking chills, anorexia, vomiting, weight loss, or night sweats. Appetite without changes. Ear, Nose, Mouth, Throat: Reports sores in her mouth are improving. Denies dysphagia, or ti nnitus. Cardiovascular: Reports dyspnea with exertion, particularly in the heat. Denies shortness o f breath, chest pain, palpitations or orthopnea. Respiratory: Denies cough, hemoptysis, or sputum production. Gastrointestinal: Reports intermittent constipation and diarrhea. Reports pink tinted recta l discharged. Denies abdominal pain, melena, or bright red blood per rectum. Genitourinary: Reports dysuria for last 3 days. Denies hematuria. Musculoskeletal: Denies joint pain or tenderness. Neurologic: Reports headache yesterday, states she feels it is related to the heat. Denies visual changes, or numbness/tingling of the extremities. Endocrine: Denies peripheral edema or heat/cold intolerance. Hematologic: Denies spontaneous bruising or bleeding. Integumentary: Reports redness on skin in areas that she has tape. Denies rash, wounds or o ther skin concerns. Pain: Denies pain. Review of [...] Facility-Administered Medications Ordered in Other Encounters Medication fluorouracil 2,800 mg in sodium chloride 0.9% 28 mL CADD PUMP chemo infusion heparin 100 units/mL flush injection 500 Units Allergies: Allergies Allergen Reactions Propoxyphene Na Ferric Gluc Cplx In Sucrose Nausea Only and Other (See Comments) Flushing and diaphoretic Vitals: Temp: 37.3 C (99.1 F) BP: 126/70 Pulse: 88 Resp: 16 SpO2: 96 % on Temp :Temp Av.3 C (99.1 F) Min: 37.3 C (99.1 F) Max: 37.3 C (99.1 F) No intake or output data in the 24 hours ending 01/24/17 1042 Wt. Current: Weight: 69.2 kg (152 lb 8 oz) Diagnostic studies: Available data and images were reviewed personally. See reports. Significant results and findings are addressed here or in the Assessment and Plan. Recent Labs Lab 01/24/17 0914 WBC 7.8 HGB 10.6* HCT 31.8* PLT 280 Recent Labs Lab 01/24/17 0914 NA 139 K 3.9 CL 105 CO2 27 BUN 12 CREA 0.51* GLU 90 CALCIUM 8.4 BILITOT 0.3 AST 23 ALT 19 ALKPHOS 89 ALBUMIN 3.0* Imaging: No results found. Electronically signed by: Tayla Abernathy, PharmD 01/24/2017 10:42 documented in this encounter Plan of Treatment Not on filedocumented as of this encounter Visit Diagnoses + + | Diagnosis | + + | Rectal cancer (HCC) Malignant neoplasm of rectum | + + documented in this encounter"
--- OUTSIDE RECORDS SUMMARY | ~2019-06-11 | XMS | Encounter Summary ---
Demographics + + + | Address | [address] | | | [place] [address] | + + + | Home Phone [...] [facility] | | | and [place] | + + + | Address | Unknown | + + + | Phone | Unavailable | + + + Support + + + + + | Name | Relationship | Address | Phone | + + + + + | Lamar Phillips | REZA | [place] [address] | | + + + + + Care Team Providers + +------+ + | Care Diamond Saw Operator Name | Role | Phone | [...] | | Procedures | [address] | [place] [address] | | | | | [place] | [place], | Phone: | | | | | Treatment | [place] [address] | [phone] | | | | | Plan Complex | Phone: | Fax: | | | | | | [phone] | [phone] | | | | | | Fax: | | | | | | | [phone] | | +--------+--------+ + + + + [...] [place], [place] | | | | | [place], | [address] | | | | | [place] [address] | | | | | | [phone] | | | +--------+ + + + [...]
--- OUTSIDE RECORDS SUMMARY | ~2019-06-11 | XMS | Encounter Summary ---
Demographics + + + | Address | [address] | | | [place] [address] | + + + | Home Phone [...] Providers + +------+ + | Care Inventory Manager Name | Role | Phone | [...] | | | | | [place], | | | | | | [place] [address] | | | | | | [phone] | | | +--------+ + + + [...] | | | | | [place] [address], | | | | | | [place] [address] | | | | | | [phone] | | | | | | | | +--------+---------+ + + + documented as of this encounter Visit Diagnoses Not on filedocumented in this encounter"
--- OUTSIDE RECORDS SUMMARY | ~2019-06-11 | XMS | Encounter Summary ---
Demographics + + + | Address | [address] | | | [place] [address] | + + + | Home Phone [...] Providers + +------+ + | Care Product Lead Name | Role | Phone | [...] | | 2019 | | Center at [facility] [address] | [address] | Review | | | | [address] | [place], | | | | | Mailcode: [place] | [place] [address] | | | | | for Health and | [phone] | | | | | [facility] 2 | | | | | | [place], [place] | | | | | | [address] | | | | | | [phone] | | | +--------+ + + + [...] | | | | | [place], | | | | | | [place] [address] | | | | | | [phone] | | | | | | | | +--------+---------+ + + + documented as of this encounter Visit Diagnoses Not on filedocumented in this encounter"
--- OUTSIDE RECORDS SUMMARY | ~2019-06-11 | XMS | Encounter Summary ---
Demographics + + + | Address | [address] | | | [place] [address] | + + + | Home Phone [...] Providers + +------+ + | Care Regional Safety Manager Name | Role | Phone | [...] | | [address] | [place], | | | | | Mailcode: [place] | [place] [address] | | | | | for Health and | [phone] | | | | | [facility] 2 | | | | | | [place], [place] | | | | | | [address] | | | | | | [phone] | | | +--------+ + + + [...] | | | | | [place], | | | | | | [place] [address] | | | | | | [phone] | | | | | | | | +--------+---------+ + + + documented as of this encounter Visit Diagnoses Not on filedocumented in this encounter"
--- OUTSIDE RECORDS SUMMARY | ~2019-06-11 | XMS | Encounter Summary ---
Demographics + + + | Address | [address] | | | [place] [address] | + + + | Home Phone | | + + + | Preferred Language | Unknown | + + + | Marital Status | | + + + | Muslim Affiliation | Unknown | + + + | Race | Unknown | + + + | Ethnic Group | Unknown | + + + Author + + + | Author | [facility] | | | and [place] | + + + | Organization | [facility] | | | and [place] | + + + | Address | Unknown | + + + | Phone | Unavailable | + + + Support + + + + + | Name | Relationship | Address | Phone | + + + + + | Lamar Phillips | REZA | [place] [address] | | + + + + + Care Team Providers + +------+ + | Care Cylinder Handler Name | Role | Phone | + [...] + + | 01/24/ | Hospital | [facility] | Janel, | Rectal cancer (HCC) | | 2017 | Encounter | MED CTR CHEMO | Mike White MD [address] | | | | | IN[address] | [address] [facility] | | | | | [place], | [place] [address] | | | | | [place] [address] | [phone] | | | | | [phone] | | | +--------+ + + + [...] [address] | [place] | [phone] | | [facility] | | [address] | | | - LABORATORY | | [...] - 1.030 | [facility] | | | [place] | | | [facility] | | [...] [address] | [place] | [phone] | | [facility] | | [address] | | | - LABORATORY | | [...] + | [facility] | [address] | [place] | [phone] | | [facility] | | [address] | | | - LABORATORY | | [...] | mL/min/1.73m2 | [facility] | | | IRISH | RATE,ESTIMATED | | MEDICAL | | | | mL/min/1.87t5Qclo than | | CENTER - | | [...] + | [facility] | [address] | [place] | [phone] | | [facility] | | [address] | | | - LABORATORY | | [...] [address] | [place] | [phone] | | [facility] | | [address] | | | - LABORATORY | | [...]
--- OUTSIDE RECORDS SUMMARY | ~2019-06-11 | XMS | Encounter Summary ---
Demographics + + + | Address | [address] | | | [place] [address] | + + + | Home Phone [...] Providers + +------+ + | Care Template Reproduction Technician Name | Role | Phone | [...] | Question | | 2016 | | [place] at [facility] [address] | [address] | | | | | [address] | [place], | | | | | Mailcode: Center | [place] [address] | | | | | for Health and | [phone] | | | | | [facility] 2 | | | | | | [place], [place] | | | | | | [address] | | | | | | [phone] | | | +--------+ + + + [...] | | | | | [place], | | | | | | [place] [address] | | | | | | [phone] | | | | | | | | +--------+---------+ + + + documented as of this encounter Visit Diagnoses Not on filedocumented in this encounter"
--- OUTSIDE RECORDS SUMMARY | ~2019-06-11 | XMS | Encounter Summary ---
Demographics + + + | Address | [address] | | | [place] [address] | + + + | Home Phone [...] Providers + +------+ + | Care Director Global Intelligence Name | Role | Phone | + [...] 2017 | | Center at [facility] [address] | [address] | Received (Images | | | | [address] | [facility], | requested 10/24/16 | | | | Mailcode: [place] | [place] [address] | [place]) | | | | for Health and | [phone] | | | | | [facility] 2 | | | | | | [place], [place] | | | | | | [address] | | | | | | [phone] | | | +--------+ + + + [...] | | | | | [place], | | | | | | [place] [address] | | | | | | [phone] | | | | | | | | +--------+---------+ + + + documented as of this encounter Visit Diagnoses Not on filedocumented in this encounter"
--- OUTSIDE RECORDS SUMMARY | ~2019-06-11 | XMS | Encounter Summary ---
Demographics + + + | Address | [address] | | | [place] [address] | + + + | Home Phone | | + + + | Preferred Language | Unknown | + + + | Marital Status | | + + + | Adventist Affiliation | Unknown | + + + | Race | Unknown | + + + | Ethnic Group | Unknown | + + + Author + + + | Author | [facility] | | | and [place] | + + + | Organization | [facility] | | | and [place] | + + + | Address | Unknown | + + + | Phone | Unavailable | + + + Support + + + + + | Name | Relationship | Address | Phone | + + + + + | Lamar Phillips | REZA | [place] [address] | | + + + + + Care Team Providers + +------+ + | Care Logger All Round Name | Role | Phone | + +------+ + | Kristian Anderson DO | PCP | | + +------+ + Encounter Details +--------+ + + + + | Date | Type | Department | Care Team | Description | +--------+ + + + + | 02/17/ | Hospital | [facility] | Janel, | Rectal cancer (HCC) | | 2017 | Encounter | MED CTR CHEMO | Mike White MD [address] | | | | | [address] | [address] [place] | | | | | [place], | [place] [address] | | | | | [place] [address] | [phone] | | | | | [phone] | | | +--------+ + + + [...] this encounter Last Filed Vital Signs + +---------+ + + | Vital Sign | Reading | Time Taken | Comments | + +---------+ + + | Blood Pressure | 103/66 | 02/17/2017 8:53 AM | | | | | PDT | | + +---------+ + + | Pulse | 87 | 02/17/2017 8:53 AM | | | | | PDT | | + +---------+ + + | Temperature | - | - | | + +---------+ + + | Respiratory Rate | - | - | | + +---------+ + + | Oxygen Saturation | 99% | 02/17/2017 8:53 AM | | | | | PDT | | + +---------+ + + | Inhaled Oxygen | - | - | | | Concentration | | | | + +---------+ + + | Weight | - | - | | + +---------+ + + | Height | - | - | | + +---------+ + + | Body Mass Index | - | - | | + +---------+ + + documented in this encounter Medications [...] encounter Progress Notes Fabienne Gates RN - 02/17/2017 8:54 AM PDTHere for pump off. Patient is completely do ne with chemo and radiation and will be going to [place] several weeks to meet with radha munoz white colored. She states is was bloody looking earlier today. Also having t rouble with incontinence. D/C'd to home in satisfactory condition, after pump dc'd.Edith mccullough signed by Fabienne Gates RN at 02/17/2017 8:55 AM PDTdocumented in this encounter Plan of [...] heparin 100 units/mL flush | Given | 02/18/20 | 500 | | | | injection 500 Units 500 Units ( | | 17 8:48 | Units | | | | mL), Intracatheter, PRN, Line | | AM PDT | | | | | Care, Starting [facility] 02/17/17 at | | | | | | | 0840 | | | | | | + +--------+ +-------+------+------+ +---+---+ | | | +---+---+ documented in this encounter"
--- OUTSIDE RECORDS SUMMARY | ~2019-06-11 | XMS | Encounter Summary ---
Demographics + + + | Address | [address] | | | [place] [address] | + + + | Home Phone | | + + + | Preferred Language | Unknown | + + + | Marital Status | | + + + | Yazidi Affiliation | Unknown | + + + | Race | Unknown | + + + | Ethnic Group | Unknown | + + + Author + + + | Author | [facility] | | | and [place] | + + + | Organization | [facility] | | | and [place] | + + + | Address | Unknown | + + + | Phone | Unavailable | + + + Support + + + + + | Name | Relationship | Address | Phone | + + + + + | Lamar Phillips | REZA | [place] [address] | | + + + + + Care Team Providers + +------+ + | Care Lokie Driver Name | Role | Phone | [...] | | | Pelvis w | [place] [address] | [address] | | | | | Contrast | Phone: | Phone: | | | | | | [phone] | [phone] | | | | | | Fax: | Fax: | | | | | | [phone] | [phone] | +--------+--------+ + + + + Diagnostic/Screening [...] | | | | Gynecologica | [place] [address] | [address] | | | | | l w wo | Phone: | Phone: | | | | | Contrast | [phone] | [phone] | | | | | | Fax: | Fax: | | | | | | [phone] | [phone] | +--------+--------+ + + + + Reason for Visit + + + | Reason | Comments | + + + | Follow-up | | + + + Encounter Details +--------+ + + + + | Date | Type | Department | Care Team | Description | +--------+ + + + + | 09/05/ | [facility] | [facility] | Janel, | Rectal cancer (HCC) | | 2018 | Encounter | MED CTR MEDICAL | Sirena White MD [address] | (Primary Dx) | | | | ONCOLOGY CLINIC [address] | [address] | | | | | [address] | [place] [address] | | | | | [place] [address] | [phone] | | | | | [phone] | | | +--------+ + + + [...] from the original. Hematology/Oncology Progress Note [facility] [place] Pt. Name/Age/: Paulette Byrnes 56 y.o. 1960 [facility]. Record Number: [id number] Date of admission: 09/05/2017 The patient's primary care provider is Kristian Anderson DO. Identifying Statement: Paulette Byrnes is a 56 y.o. female from [address] [place] [address] with Locally Advanced Rectal Cancer. The patient chart and medications were reviewed in detail and the patient was seen and exam ined. History of Present Illnesses, their Current Assessments and Plans: Problem List Rectal cancer Overview ACTIVE DIAGNOSIS: Locally Advanced Rectal Cancer, [id number], Stage IIA. 1Jame Barajas presented to the [facility] emergency room on July 20, [...] cm within the rectum. Biopsy specimen number [id number] evaluated by Dr. Felipe Nixon of [place] [facility] was notable for a tubular adenoma without high-grade dysplasia or overt carcinoma. This proced ure also included a full colonoscopy through the ostomy were 2 additional polyps were remove d, a tubular adenoma at 35 cm and a hyperplastic polyp at [address] C/A/P at [facility] in [place], [place] demonstrated no evidence of metastatic disease. 4. On September 22, 2016 Dr. Thacker placed in internal jugular Port-A-Cath without complications. 5. MRI of pelvis performed on October 05, 2016 at [facility]: Rectal mass 7.7 cm x 6.2 cm x 9.6 cm in length located within 3 cm of the anal sphincter and 6.4 cm from the anal verge with radi ographic extension though multiple areas of the bowel wall. 6. CT abdomen/pelvis also at [facility] October 05, 2016; large almost completely circumferential [...] the tumor proper. Concerns raised by the [facility] Tumor Board were that the prior [...] as well as mutation analysis." Pathological Specimen #[id number] ([facility]). Tubulovillous adenoma with high grade dysplasia [...] radiation. 14. Multidisciplinary Care Team Conference at [facility] March 10, 2017; "Given borderline resec tability, [...] resection by Dr. Ailyn Wolff at the [facility]: 06/30/17: Exploratory laparoto my. Extensive lysis of adhesions. Excision of left lower quadrant fistula tract. Total mesor ectal excision, intersphincteric abdominoperineal resection, en bloc resection of left ovary and left fallopian tube and posterior vaginal wall. Placement of a 19-Ethiopian Albert drain th rough the right lower [...] exam on August 12, 2017; Dr. Lea, [facility], [place], [place] ; positive for perianal fistula between anus and vagina. 22. Clinical exam on August 22, [address] Ailyn Wolff at [facility] who could not confirm the prese nce [...] of pelvis and CT chest/abdomen /pelvis at [facility] in about a month, clinical and laboratory followup with port flush at [facility] in 2 months. Follow up with Dr. Ailyn Wolff at [facility] in [place] on November 14, 2017. Review of Systems: [...] WILL BE GETTING HER PUMP OFF IN [place] let them know time she will be there on 09/07. Schedule MRI pelvis and CT C/A/P at [facility]. Schedule QFU RN port draw for lab in [place] in 2 months. OrderHistory Pre-Medications dexamethasone (DECADRON) [...] this chart may have been created with [employer] voice recognition software. Occasi onal wrong-word [...] Pelvis w Contrast | | e | ([facility]) | 09/05/2017, Expires: | | [...] [address] | [place] | [phone] | | [facility] | | [address] | | | - LABORATORY | | [...] ST. | [address] | [place] | [phone] | | [facility] | | [address] | | | - LABORATORY | | [...] 0.56 (L) | 0.60 - 1.30 | [place] | | | | | mg/dL | [facility] | | | | | | MEDICAL | | | | | | CENTER - | | | | | | LABORATORY | | + + + + + + | eGFR if not | >60Comment: GLOMERULAR | >=60 | [place] | | | | FILTRATION | mL/min/1.73m2 | [facility] | | | J[place]ANESE | RATE,ESTIMATED | | MEDICAL | | | | mL/min/1.70r4Hekr than | | CENTER - | | [...] [address] | [place] | [phone] | | [facility] | | [address] | | | - LABORATORY | | [...] [address] | [place] | [phone] | | [facility] | | [address] | | | - LABORATORY | | [...]
--- OUTSIDE RECORDS SUMMARY | ~2019-06-11 | XMS | Encounter Summary ---
Demographics + + + | Address | [address] | | | [place] [address] | + + + | Home Phone [...] Team Providers + +------+ + | Care Retreader Name | Role | Phone | + [...] | | | | | [place], | | | | | | [place] [address] | | | | | | [phone] | | | | | | | | +--------+---------+ + + + documented as of this encounter Visit Diagnoses Not on filedocumented in this encounter"
--- OUTSIDE RECORDS SUMMARY | ~2019-06-11 | XMS | Encounter Summary ---
Demographics + + + | Address | [address] | | | [place] [address] | + + + | Home Phone [...] Organization | [facility] | | | and [place] | + + + | Address | Unknown | + + + | Phone | Unavailable | + + + Support + + + + + | Name | Relationship | Address | Phone | + + + + + | Lamar Phillips | REZA | [place] [address] | | + + + + + Care Team Providers + +------+ + | Care Field Research Assistant Name | Role | Phone | [...] Rectal | Joel White DO | [address] [place] | | | | | cancer (HCC) | [address] | [place], | | | | | Procedures | [address] | [place] [address] | | | | | CT | [place], | Phone: | | | | | Treatment | [place] [address] | [phone] | | | | | Plan Complex | Phone: | Fax: | | | | | CT [place] PLAN | [phone] | [phone] | | | | | | Fax: | | | | | | | [phone] | | +--------+--------+ + + + + [...] Rectal | Joel White DO | [address] [facility] | | | | | cancer (HCC) | [address] | [place], | | | | | Procedures | [address] | [place] [address] | | | | | CT | [place], | Phone: | | | | | Treatment | [place] [address] | [phone] | | | | | Plan Complex | Phone: | Fax: | | | | | CT [place] PLAN | [phone] | [phone] | | | | | | Fax: | | | | | | | [phone] | | +--------+--------+ + + + + Encounter Details +--------+ + + + + | Date | Type | Department | Care Team | Description | +--------+ + + + + | 12/27/ | Hospital | [facility] | Joel Alfaro DO | Rectal cancer (HCC) | | 2017 | Encounter | [facility] [address] | [address] | | | | | [place], | [place], [place] | | | | | [place] [address] | [address] | | | | | [phone] | | | +--------+ + + + [...]
--- OUTSIDE RECORDS SUMMARY | ~2019-06-11 | XMS | Encounter Summary ---
Demographics + + + | Address | [address] | | | [place] [address] | + + + | Home Phone [...] Phone | + + +---------+ + | Drarius Quintana | ECON | Unknown | | + + +---------+ + Care Team Providers + +------+ + | Care Card Lacer Jacquard Name | Role | Phone | + [...] | | | | | | | [place] [facility] | | | | | | | [facility] and | | | | | | | [facility]aling, | | | | | | | Building [address] | | | | | | | [place], [place] | | | | | | | [address] | | | | | | | Phone: | | | | | | | [phone] | | | | | | | Fax: | | | | | | | [phone] | +--------+--------+ + + + + Encounter Details +--------+---------+ + + + | Date | Type | Department | Care Team | Description | +--------+---------+ + + + | 11/27/ | Office | [facility] | Ailyn Wolff MD | Rectal cancer (HCC) | | 2019 | Visit | Center at [facility] [address] | [address] | (Primary Dx) | | | | [address] | [place], | | | | | Mailcode: [place] | [place] [address] | | | | | for Health and | [phone] | | | | | [facility] 2 | | | | | | [place], [place] | | | | | | [address] | | | | | | [phone] | | | +--------+---------+ + + + [...] rectal bleeding on 12/26/16 went to the [facility] ED CT abdomen/pelvis with IV contrast (07/20/16) [...] (10/05/16) no liver metastases rigid proctoscopy by ma (10/05/16) 6 cm from anal verge presented [...] (OSH, 05/17/17) close to pelvic sidewall [facility] Multidisciplinary GI Oncology Conference (06/02/17) [...] resection with Primary anastomosis, placement of a 19-[place] Citizen Albert drain through the right lower quadrant [...] resection with primary anastomosis, placement of a 19-[place] Citizen Albert drain through the right lower quadrant [...] Return/Re-evaluation patient, I spent 11 minutes of xnnf-qp-qrde time, of which m ore than half [...] | | | | | [place], | | | | | | [place] [address] | | | | | | [phone] | | | | | | | [...] | + + + + + | [facility] | [address] | [place] [address] | | | SERVICES, CORE | [address] | | | + + + + + documented in this encounter Visit Diagnoses + + | Diagnosis | + + | Rectal cancer (HCC) - Primary Malignant neoplasm of rectum | + + documented in this encounter
--- OUTSIDE RECORDS SUMMARY | ~2019-06-11 | XMS | Encounter Summary ---
Demographics + + + | Address | [address] | | | [place] [address] | + + + | Home Phone | | + + + | Preferred Language | Unknown | + + + | Marital Status | | + + + | Orthodox Affiliation | Unknown | + + + | Race | Unknown | + + + | Ethnic Group | Unknown | + + + Author + + + | Author | [facility] | | | and [place] | + + + | Organization | [facility] | | | and [place] | + + + | Address | Unknown | + + + | Phone | Unavailable | + + + Support + + + + + | Name | Relationship | Address | Phone | + + + + + | Lamar Phillips | REZA | [place] [address] | | + + + + + Care Team Providers + +------+ + | Care Solar Energy Engineer Name | Role | Phone | [...] Other | | 2017 | | [facility] | Mike White MD [address] | | | | | ONCOLOGY CLINIC [address] | [address] [place] | | | | | [address] [place] | [place] [address] | | | | | [place] [address] | [phone] | | | | | [phone] | | | +--------+ + + + [...]
--- OUTSIDE RECORDS SUMMARY | ~2019-06-11 | XMS | Encounter Summary ---
Demographics + + + | Address | [address] | | | [place] [address] | + + + | Home Phone | | + + + | Preferred Language | Unknown | + + + | Marital Status | | + + + | Zoroastrianism Affiliation | Unknown | + + + | Race | Unknown | + + + | Ethnic Group | Unknown | + + + Author + + + | Author | [facility] | | | and [place] | + + + | Organization | [facility] | | | and [place] | + + + | Address | Unknown | + + + | Phone | Unavailable | + + + Support + + + + + | Name | Relationship | Address | Phone | + + + + + | Lamar Phillips | REZA | [place] [address] | | + + + + + Care Team Providers + +------+ + | Care Horseshoer Name | Role | Phone | + [...] neoplasm of | Mike C, | [address] [place] | | | | | rectum (HCC) | MD [address] | [place], | | | | | Procedures | [address] | [place] [address] | | | | | [place] | [place], | Phone: | | | | | [place] | [place] [address] | [phone] | | | | | INJECTION, | Phone: | Fax: | | | | | [address] | [phone] | [phone] | | | | | [place] | Fax: | | | | | | HCL | [phone] | | | | | | INJECTION, 1 | | | | | | | MG GA | | | | | | | DEXAMETHASON | | | | | | | E SODIUM | | | | | | | PHOS, 1 MG | | | | | | | GA | | | | | | | FOSAPREPITAN | | | | | | | T INJECTION, | | | | | | | 1 MG GA | | | | | | | LORAZEPAM | | | | | | | INJECTION, 2 | | | | | | | MG GA | | | | | | | OXALIPLATIN, | | | | | | | .5 MG GA | | | | | | | LEUCOVORIN | | | | | | | CALCIUM | | | | | | | INJECTION, | | | | | | | 50 MG GA | | | | | | | DIPHENHYDRAM | | | | | | | INE HCL | | | | | | | INJECTIO, 50 | | | | | | | MG GA | | | | | | | METHYLPREDNI | | | | | | | SOLONE | | | | | | | INJECTION, | | | | | | | 125 MG GA | | | | | | | ALBUTEROL | | | | | | | COMP CON, 1 | | | | | | | MG GA | | | | | | | ALBUTEROL | | | | | | | NON-COMP | | | | | | | CON, 1 MG | | | | | | | GA | | | | | | | INJECTION, | | | | | | | FAMOTIDINE, | | | | | | | 20 MG GA | | | | | | | NORMAL | | | | | | | SALINE | | | | | | | SOLUTION | | | | | | | INFUS, 500 | | | | | | | ML GA | | | | | | | NORMAL | | | | | | | SALINE | | | | | | | SOLUTION | | | | | | | INFUS, 250 | | | | | | | ML GA | | | | | | | STERILE | | | | | | | WATER/SALINE | | | | | | | , 10 ML GA | | | | | | | CHEMOTHER, | | | | | | | IV PUSH,EA | | | | | | | ADD DRUG GA | | | | | | | CHEMOTHER, | | | | | | | IV INFUSION, | | | | | | | 1 HR GA | | | | | | | CHEMOTHER, | | | | | | | IV INFUSION, | | | | | | | EA HR GA | | | | | | | CHEMOTHER,NO | | | | | | | N-HORMONE | | | | | | | ANTI-NEOPL, | | | | | | | SUB-Q/IM GA | | | | | | | CHEMOTHER | | | | | | | HORMON | | | | | | | ANTINEOPL | | | | | | | SUB-Q/IM GA | | | | | | | NA FERRIC | | | | | | | GLUCONATE | | | | | | | COMPLEX, | | | | | | | 12.5 MG GA | | | | | | | IRON SUCROSE | | | | | | | INJECTION, | | | | | | | 1 MG | | | +--------+--------+ + + + + Encounter Details +--------+ + + + + | Date | Type | Department | Care Team | Description | +--------+ + + + + | 11/29/ | Hospital | [facility] | Janel, | Rectal cancer (HCC) | | 2017 | Encounter | MED CTR CHEMO | Mike White MD [address] | | | | | INFUSION [address] | [address] [facility] | | | | | [place], | [place] [address] | | | | | [place] [address] | [phone] | | | | | [phone] | | | +--------+ + + + [...] [address] | [place] | [phone] | | [facility] | | [address] | | | - LABORATORY | | [...] | | | | | | [facility] | | | | | | MEDICAL [...] | | | | | mg/dL | [facility] | | | | | | MEDICAL | | | | | | CENTER - | | | | | | LABORATORY | | + + + + + + | eGFR if not | >60Comment: GLOMERULAR | >=60 | [facility] | | | | FILTRATION | mL/min/1.73m2 | [facility] | | | [place] | RATE,ESTIMATED | | MEDICAL | | | | mL/min/1.88s2Cqbs than | | CENTER - | | [...] | | | | | mg/dL | [facility] | | | | | [...] [address] | [place] | [phone] | | [facility] | | [address] | | | - LABORATORY | | [...] ST. | [address] | [place], [place] | [phone] | | [facility] | | [address] | | | - LABORATORY | | [...] [address] | [place] | [phone] | | [facility] | | [address] | | | - LABORATORY | | [...] [address] | [place] | [phone] | | [facility] | | [address] | | | - LABORATORY | | [...]
--- OUTSIDE RECORDS SUMMARY | ~2019-06-11 | XMS | Encounter Summary ---
Demographics + + + | Address | [address] | | | [place] [address] | + + + | Home Phone [...] Organization | [facility] | | | and [place] | + + + | Address | Unknown | + + + | Phone | Unavailable | + + + Support + + + + + | Name | Relationship | Address | Phone | + + + + + | Lamar Phillips | REZA | [place] [address] | | + + + + + Care Team Providers + +------+ + | Care Drywall Sprayer Name | Role | Phone | [...] neoplasm of | Mike C, | [place] | | | | | rectum (HCC) | MD [address] | [place], | | | | | Procedures | [address] | [place] [address] | | | | | CT | [place], | Phone: | | | | | [place] | [place] [address] | [phone] | | | | | HCL | Phone: | Fax: | | | | | INJECTION, 1 | [phone] | [phone] | | | | | MG CT | Fax: | | | | | | DEXAMETHASON | [phone] | | | | | | E SODIUM | | | | | | | PHOS, 1 MG | | | | | | | CT LORAZEPAM | | | | | | | INJECTION, | | | | | | | [address] | | | | | | | OXALIPLATIN, | | | | | | | .[address] | | | | | | | LEUCOVORIN | | | | | | | CALCIUM | | | | | | | INJECTION, | | | | | | | [address] | | | | | | | FLUOROURACIL | | | | | | | INJECTION, | | | | | | | [address] | | | | | | | DIPHENHYDRAM | | | | | | | INE HCL | | | | | | | INJECTIO, 50 | | | | | | | MG CT | | | | | | | METHYLPREDNI | | | | | | | SOLONE | | | | | | | INJECTION, | | | | | | | [address] | | | | | | | ADRENALIN | | | | | | | EPINEPHRINE | | | | | | | INJECT, .1 | | | | | | | MG CT | | | | | | | ALBUTEROL | | | | | | | COMP CON, 1 | | | | | | | MG CT | | | | | | | ALBUTEROL | | | | | | | NON-COMP | | | | | | | CON, 1 MG | | | | | | | CT | | | | | | | INJECTION, | | | | | | | FAMOTIDINE, | | | | | | | [address] | | | | | | | NORMAL | | | | | | | SALINE | | | | | | | SOLUTION | | | | | | | INFUS, 500 | | | | | | | ML CT | | | | | | | NORMAL | | | | | | | SALINE | | | | | | | SOLUTION | | | | | | | INFUS, 250 | | | | | | | ML CT | | | | | | | STERILE | | | | | | | WATER/SALINE | | | | | | | , [address] | | | | | | | CHEMOTHER, | | | | | | | IV PUSH,EA | | | | | | | ADD DRUG CT | | | | | | | CHEMOTHER, | | | | | | | IV INFUSION, | | | | | | | [address] | | | | | | | CHEMOTHER, | | | | | | | IV INFUSION, | | | | | | | EA HR CT | | | | | | | CHEMOTHER,NO | | | | | | | N-HORMONE | | | | | | | ANTI-NEOPL, | | | | | | | SUB-Q/IM CT | | | | | | | CHEMOTHER | | | | | | | HORMON | | | | | | | ANTINEOPL | | | | | | | SUB-Q/IM CT | | | | | | | | | | | | | | PALONOSETRON | | | | | | | HCL, 25 MCG | | | | | | | CT DRUGS | | | | | | | UNCLASSIFIED | | | | | | | INJECTION, | | | | | | | 1 ML | | | +--------+--------+ + + + + Encounter Details +--------+ + + + + | Date | Type | Department | Care Team | Description | +--------+ + + + + | 08/23/ | Hospital | [facility] | Janel, | Rectal cancer (HCC) | | 2018 | Encounter | MED CTR CHEMO | Mike White MD [address] | | | | | INFUSION [address] | [facility] | | | | | [place], | [place] [address] | | | | | [place] [address] | [phone] | | | | | [phone] | | | +--------+ + + + [...] | | [address] | | | [facility] | | | - LABORATORY | + + + + + + + + | Performing | Address | City/State/Zipcode | Phone Number | | Organization | | | | + + + + + | [facility] | [address] | [place] | [phone] | | [facility] | | [address] | | | - LABORATORY | | [...] + | [facility] | [address] [place] [address] | [place] | [phone] | | [facility] | | [address] | | | - LABORATORY | | [...] + | [facility] | [address] [place] [address] | [place] | [phone] | | [facility] | | [address] | | | - LABORATORY | | [...] mL/min/1.73m2 | [address] | | | [place] | RATE,ESTIMATED | | MEDICAL | | | | mL/min/1.55a9Yuew than | | CENTER - | | [...] [address] | [place] | [phone] | | [facility] | | [address] | | | - LABORATORY | | [...]
--- OUTSIDE RECORDS SUMMARY | ~2019-06-11 | XMS | Encounter Summary ---
Demographics + + + | Address | [address] | | | [place] [address] | + + + | Home Phone [...] Team Providers + +------+ + | Care Appeals Board Referee Name | Role | Phone | + [...] | | [address] | [place], | | | | | Mailcode: [place] | [place] [address] | | | | | for Health and | [phone] | | | | | [facility] 2 | | | | | | [place], [place] | | | | | | [address] | | | | | | [phone] | | | +--------+ + + + [...] | | | | | | [place] [address] | | | | | | [phone] | | | | | | | | +--------+---------+ + + + documented as of this encounter Visit Diagnoses Not on filedocumented in this encounter"
--- OUTSIDE RECORDS SUMMARY | ~2019-06-11 | XMS | Encounter Summary ---
Demographics + + + | Address | [address] | | | [place] [address] | + + + | Home Phone [...] Organization | [facility] | | | and [place] | + + + | Address | Unknown | + + + | Phone | Unavailable | + + + Support + + + + + | Name | Relationship | Address | Phone | + + + + + | Lamar Phillips | REZA | [place] [address] | | + + + + + Care Team Providers + +------+ + | Care Washer Cutter Name | Role | Phone | [...] + + | 01/10/ | Hospital | [facility] | Janel, | Rectal cancer (HCC) | | 2017 | Encounter | MED CTR MEDICAL | Sirena White MD [address] | (Primary Dx) | | | | ONCOLOGY CLINIC [address] | [facility] | | | | | [address] | [place] [address] | | | | | [place] [address] | [phone] | | | | | [phone] | | | +--------+ + + + [...] - 01/10/2017Pick up ciprofloxacin and amoxicillin at [facility] Take amoxicillin three times a day. Take [...] nt from the original. Hematology/Oncology Progress Note [facility] [place] Pt. Name/Age/: Paulette Parada 56 y.o. 1960 Med. Record Number: [id number] Date of admission: 01/10/2017 The patient's primary care provider is Kristian Anderson DO. Identifying Statement: Paulette Parada is a 56 y.o. female from [address] [place] [address] with Locally Advanced Rectal Cancer. The patient chart and medications were reviewed in detail and the patient was seen and exam ined. History of Present Illnesses, their Current Assessments and Plans: Problem List Rectal cancer Overview ACTIVE DIAGNOSIS: Locally Advanced Rectal Cancer. 1. Paulette presented to the emergency room on July 20, 2016 with [...] cm within the rectum. Biopsy specimen number [id number] evaluated by Dr. Felipe Nixon of [facility] was notable for a tubular adenoma without high-grade dysplasia or overt carcinoma. This proced ure also included a full colonoscopy through the ostomy were 2 additional polyps were remove d, a tubular adenoma at 35 cm and a hyperplastic polyp at [address] C/A/P at in [place], [place] demonstrated no evidence of metastatic disease. 4. On September 22, 2016 Dr. Thacker placed in internal jugular Port-A-Cath without complications. 5. MRI of pelvis performed on October 05, 2016 at [facility]: Rectal mass 7.7 cm x 6.2 cm x 9.6 cm in length located within 3 cm of the anal sphincter and 6.4 cm from the anal verge with radi ographic extension though multiple areas of the bowel wall. 6. CT abdomen/pelvis also at [facility] October 05, 2016; large almost completely circumferential r ectosigmoid mass better delineated on the corresponding MRI with adjacent probable abscess. No distant metastases identified. 7. On October 14, 2016 Paulette was evaluated by Dr. Ailyn Wolff and Dr. Shea Mcneill of the [facility] and [facility] [place] where her case was presented to their tumor board. Clinical exa m is notable for an overt rectal carcinoma invading into the vagina. 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 Concerns raised by the [facility] Tumor Board were that the [...] as well as mutation analysis." Pathological Specimen #[id number] ([facility]). Tubulovillous adenoma with high grade dysplasia [...] returned to clinic on 01/10/2017 with a direct care supervisor for follow-up of her locally advanced rectal [...] therapy by Dr. Ailyn Wolff at the [facility]. We then discussed the high likelihood that [...] this chart may have been created with [employer] voice recognition software. Occasi onal wrong-word or [...]
--- OUTSIDE RECORDS SUMMARY | ~2019-06-11 | XMS | Encounter Summary ---
Demographics + + + | Address | [address] | | | [place] [address] | + + + | Home Phone [...] | Organization | [facility] | | | and [place] | + + + | Address | Unknown | + + + | Phone | Unavailable | + + + Support + + + + + | Name | Relationship | Address | Phone | + + + + + | Lamar Phillips | REZA | [place] [address] | | + + + + + Care Team Providers + +------+ + | Care Customer Pricing Manager Name | Role | Phone | [...] [place] | | | | | [address] [place] | [place] [address] | | | | | [place] [address] | [phone] | | | | | [phone] | | | +--------+ + + + [...]
--- OUTSIDE RECORDS SUMMARY | ~2019-06-11 | XMS | Encounter Summary ---
Demographics + + + | Address | [address] | | | [place] [address] | + + + | Home Phone [...] Providers + +------+ + | Care Health Education Teacher Name | Role | Phone | + +------+ + | Justin Kristian | PCP | | + +------+ + Encounter Details +--------+------+ + + + | Date | Type | Department | Care Team | Description | +--------+------+ + + + | 02/20/ | Lab | Laboratory at [facility] | | Buzz ([facility]) | | 2018 | | [address] | | | | | | [place], [place] | | | | | | [address] | | | | | | [phone] | | | +--------+------+ + + + [...] | | | | | [place], | | | | | | [place] [address] | | | | | | [phone] | | | | | | | [...] | + + + + + | [facility] | [address] | [place] [address] | | | SERVICES, CORE | [address] | | | + + + + + documented in this encounter Visit Diagnoses + + | Diagnosis | + + | CA of rectum (HCC) Malignant neoplasm of rectum | + + documented in this encounter"
--- OUTSIDE RECORDS SUMMARY | ~2019-06-11 | XMS | Encounter Summary ---
Demographics + + + | Address | [address] | | | [place] [address] | + + + | Home Phone [...] | Organization | [facility] | | | and [place] | + + + | Address | Unknown | + + + | Phone | Unavailable | + + + Support + + + + + | Name | Relationship | Address | Phone | + + + + + | Lamar Phillips | REZA | [place] [address] | | + + + + + Care Team Providers + +------+ + | Care Brush Maker Machine Name | Role | Phone | + [...] + + | 11/15/ | Hospital | [facility] | [facility], | Rectal cancer (HCC) | | 2017 | Encounter | MED CTR MEDICAL | Sirena White MD [address] | (Primary Dx) | | | | ONCOLOGY CLINIC 401 | [facility] | | | | | [address] [facility] | [place] [address] | | | | | [place] [address] | [phone] | | | | | [phone] | | | +--------+ + + + [...] nt from the original. Hematology/Oncology Progress Note [place], [place] Pt. Name/Age/: Paulette Byrnes 55 y.o. 1960 Med. Record Number: [id number] Date of admission: 11/15/2016 The patient's primary care provider is Kristian Anderson DO. Identifying Statement: Paulette Byrnes is a 55 y.o. female from [address] [place] [address] with Locally Advanced Rectal Cancer. The patient chart and medications were reviewed in detail and the patient was seen and exam ined. History of Present Illnesses, their Current Assessments and Plans: Problems That Were Updated This Visit Rectal cancer Overview ACTIVE DIAGNOSIS: Locally Advanced Rectal Cancer. 1. Paulette presented to the [facility] emergency [...] cm within the rectum. Biopsy specimen number [id number] evaluated by Dr. Felipe Nixon of [facility] was notable for a tubular adenoma without high-grade dysplasia or overt carcinoma. This proced ure also included a full colonoscopy through the ostomy were 2 additional polyps were remove d, a tubular adenoma at 35 cm and a hyperplastic polyp at [address] C/A/P at [facility] in [place], [place] demonstrated no evidence of metastatic disease. 4. On September 22, 2016 Dr. Thacker placed in internal jugular Port-A-Cath without complications. 5. On October 14, 2016 Paulette was evaluated by Dr. Ailyn Wolff and Dr. Shea Mcneill of the [facility] and [facility] [place] where her case was presented to their [...] as well as mutation analysis." [facility]ological Spec[id number] [facility] Tubulovillous adenoma with high grade [...] this chart may have been created with [email or web address] voice recognition software. Occasi onal wrong-word or [...]
--- OUTSIDE RECORDS SUMMARY | ~2019-06-11 | XMS | Encounter Summary ---
Demographics + + + | Address | [address] | | | [place] [address] | + + + | Home Phone [...] Organization | [facility] | | | and [place] | + + + | Address | Unknown | + + + | Phone | Unavailable | + + + Support + + + + + | Name | Relationship | Address | Phone | + + + + + | Lamar Phillips | REZA | [place] [address] | | + + + + + Care Team Providers + +------+ + | Care Hot Box Spotter Name | Role | Phone | + [...] | Rectal | Janel, | [address] | | | | | cancer (HCC) | Mike White, | Lucien, | | | | | Procedures | MD [address] | [place] | | | | | MRI Pelvis | [address] | [address] | | | | | w wo | [place], | Phone: | | | | | Contrast | [place] [address] | [phone] | | | | | | Phone: | Fax: | | | | | | [phone] | [phone] | | | | | | Fax: | | | | | | | [phone] | | +--------+--------+ + + + + Reason for Visit + + + | Reason | Comments | + + + | Follow-up | | + + + Encounter Details +--------+ + + + + | Date | Type | Department | Care Team | Description | +--------+ + + + + | 05/16/ | Hospital | [facility] | Janel, | Rectal cancer (HCC) | | 2017 | Encounter | [facility] | Mike White MD [address] | (Primary Dx) | | | | ONCOLOGY CLINIC [address] | [address] | | | | | [address] [facility] | [place] [address] | | | | | [place] [address] | [phone] | | | | | [phone] | | | +--------+ + + + [...] nt from the original. Hematology/Oncology Progress Note [place], [place] Pt. Name/Age/: Paulette Byrnes 56 y.o. 1960 Med. Record Number: [id number] Date of admission: 05/16/2017 The patient's primary care provider is Kristian Anderson DO. Identifying Statement: Paulette Byrnes is a 56 y.o. female from [address] [place] [address] with Locally Advanced Rectal Cancer. The patient [...] cm within the rectum. Biopsy specimen number [id number] evaluated by Dr. Felipe Nixon of [place] [facility] was notable for a tubular adenoma without high-grade dysplasia or overt carcinoma. This proced ure also included a full colonoscopy through the ostomy were 2 additional polyps were remove d, a tubular adenoma at 35 cm and a hyperplastic polyp at [address] C/A/P at [facility] in [place], [place] demonstrated no evidence of metastatic disease. [...] Wolff and Dr. Shea Mcneill of the [facility] where her case was presented to their tumor board. Clinical exa m is notable for an overt rectal carcinoma invading into the vagina. 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 Concerns raised by the [facility] Tumor Board were that the prior placement [...] as well as mutation analysis." Pathological Specimen #[id number] ([facility] ology). Tubulovillous adenoma with high [...] mg/m/day. 14. [facility] her management wi th Dr. Wolff of [facility] surgical oncology. I gave Paulette and Dr. Wolff my opinion that Paulette [...] ago, [facility] Reports black, yellow, and pink in drain [...] this chart may have been created with [employer] voice recognition software. Occasi onal wrong-word or [...]
--- OUTSIDE RECORDS SUMMARY | ~2019-06-11 | XMS | Encounter Summary ---
Demographics + + + | Address | [address] | | | [place] [address] | + + + | Home Phone [...] Providers + +------+ + | Care Supervisor Stave Finishing Name | Role | Phone | + [...] | | | | [facility] | [place], [place] | | | | | [place] [address] | [address] | | | | | [place], [place] | | | | | | [address] | | | | | | [phone] | | | +--------+ + + + [...] | | | | | Amita Hines [place], | | | | | | [place] [address] | | | | | | [phone] | | | | | | | | +--------+---------+ + + + documented as of this encounter Visit Diagnoses Not on filedocumented in this encounter"
--- OUTSIDE RECORDS SUMMARY | ~2019-06-11 | XMS | Encounter Summary ---
Demographics + + + | Address | [address] | | | [place] [address] | + + + | Home Phone [...] Team Providers + +------+ + | Care Creel Cleaner Name | Role | Phone | [...] | 2019 | Encounter | Center at [facility] [address] | [address] | | | | | [address] | Amita Hines [facility] | | | | | Mailcode: [place] | [place] [address] | | | | | for Health and | [phone] | | | | | [place] [address] | | | | | | [place], [place] | | | | | | [address] | | | | | | [phone] | | | +--------+ + + + [...] | | | | | Amita Hines [place], | | | | | | [place] [address] | | | | | | [phone] | | | | | | | | +--------+---------+ + + + documented as of this encounter Visit Diagnoses Not on filedocumented in this encounter"
--- OUTSIDE RECORDS SUMMARY | ~2019-06-11 | XMS | Encounter Summary ---
Demographics + + + | Address | [address] | | | [place] [address] | + + + | Home Phone [...] Organization | [facility] | | | and [place] | + + + | Address | Unknown | + + + | Phone | Unavailable | + + + Support + + + + + | Name | Relationship | Address | Phone | + + + + + | Lamar Phillips | REZA | [place] [address] | | + + + + + Care Team Providers + +------+ + | Care Cardiopulmonary Technician And Eeg Tech Name | Role | Phone | [...] + + | 04/04/ | Hospital | [facility] | [facility], | Rectal cancer (HCC) | | 2017 | Encounter | [facility] | Sirena White MD [address] | | | | | ONCOLOGY CLINIC [address] | [facility] | | | | | W [facility] | [place] [address] | | | | | [place] [address] | [phone] | | | | | [phone] | | | +--------+ + + + [...] + + + | Blood Pressure | 138/79 | 04/04/2017 8:56 AM | | | | | PDT | | + + + + + | Pulse | 82 | 04/04/2017 8:56 AM | | | | | PDT | | + + + + + | Temperature | 36.2 C (97.1 F) | 04/04/2017 8:56 AM | | | | | PDT | | + + + + + | Respiratory Rate | 18 | 04/04/2017 8:56 AM | | | | | PDT | | + + + + + | Oxygen Saturation | 98% | 04/04/2017 8:56 AM | | | | | PDT | | + + + + + | Inhaled Oxygen | - | - | | | Concentration | | | | + + + + + | Weight | 72.7 kg (160 lb 4.8 | 04/04/2017 8:56 AM | | | | oz) | PDT | | + + + + + | Height | - | - | | + + + + + | Body Mass Index | 27.52 | 10/18/2016 11:04 AM | | | [...] encounter Progress Notes Sirena Helton MD - 04/04/2017 8:43 AM PDTFormatting of this note might be differe nt from the original. Hematology/Oncology Progress Note [facility] Pt. Name/Age/: Paulette Byrnes 56 y.o. 1960 Med. Record Number: [id number] Date of admission: 04/04/2017 The patient's primary care provider is Kristian Anderson DO. Identifying Statement: Paulette Byrnes is a 56 y.o. female from [address] [place] [address] with Locally Advanced Rectal Cancer. The patient [...] cm within the rectum. Biopsy specimen number [id number] evaluated by Dr. Felipe Nixon of [place] [facility] was notable for a tubular adenoma without high-grade dysplasia or overt carcinoma. This proced ure also included a full colonoscopy through the ostomy were 2 additional polyps were remove d, a tubular adenoma at 35 cm and a hyperplastic polyp at [address] C/A/P at in [place], [place] demonstrated no evidence of metastatic disease. 4. On September 22, 2016 Dr. Thacker placed in internal jugular Port-A-Cath without complications. 5. MRI of pelvis performed on October 05, 2016 at [facility]: Rectal mass 7.7 cm x 6.2 cm x 9.6 cm in length located within 3 cm of the anal sphincter and 6.4 cm from the anal verge with radi ographic extension though multiple areas of the bowel wall. 6. CT abdomen/pelvis also at [facility] October 05, 2016; large almost completely circumferential [...] the tumor proper. Concerns raised by the [facility] Tumor Board were that the prior [...] as well as mutation analysis." Pathological Specimen #[id number] ([facility]). Tubulovillous adenoma with high [...] mg/m/day. 14. Multidisciplinary Care Team Conference at [facility] March 10, 2017; "Given borderline resec tability, give 6 more cycles of FOLFOX, restage with MRI, followed by posterior exenteration (abdominoperineal resection, hysterectomy, posterior vaginectomy, and VRAM). Low anterior m ay not be able to resect all of this. She may need intraop radiation therapy." 15. Cycle # 7 FOLFOX March 21, 2017. 16. Cycle #8 FOLFOX April 04, 2017. Current Assessment & Plan Paulette Byrnes returned to clinic alone on 04/04/2017 for cycle #8 neoadjuvant FOLFOX chemotherapy for locally advanced rectal cancer. Chief complaints are increased abdominal pain localized to her Hong-Jasmine drain exit sit e and increased drain output. She is also beginning to notice numbness in her fingers and to es. Clinical exam is notable for the fact that her Hong-Jasmine drain output has become opaque . Laboratory exam is notable for grade I anemia. Assessment; locally advanced rectal cancer. Pelvic abscess. Plan; proceed with cycle #8 of a planned 12 cycles of neoadjuvant FOLFOX. Start Flagyl 500 mg po tid for 21 days. Return in two weeks for clinical and laboratory follow-up and Cycle #9 of a planned 12 cycl es of FOLFOX. Consider dose reduction of oxaliplatin to 64 mg/m if neuropathy progresses. Review of Systems: Constitutional: Reports energy is lower. Reports increased nausea recently, notices belchin g more. Reports regular food does not sound good but junk food does. Denies high fevers, sha leona chills, anorexia, vomiting, weight loss, or night sweats. Ear, Nose, Mouth, Throat: Reports slight soreness on back teeth and gums. States after last chemo she had sores in lower gums. Denies odynophagia, dysphagia, or tinnitus. Cardiovascular: Denies shortness of breath, dyspnea on exertion, chest pain, palpitations o r orthopnea. Respiratory: Denies cough, hemoptysis, or sputum production. Gastrointestinal: Reports abdominal pain around ostomy site with increased fluid in the are a. She has had increased drainage as well. Denies constipation, diarrhea, melena, or bright red blood per rectum. Genitourinary: Reports burning with urination when she had chemo cadd pump on that has decr eased since then. Denies hematuria. Musculoskeletal: Reports bilateral hip aches when walking the other day. Neurologic: Reports numbness/tingling in fingers and toes bilaterally, this is new and worr isome to her. Denies headache or visual changes. Endocrine: Denies peripheral edema or heat/cold intolerance. Hematologic: Denies spontaneous bruising or bleeding. Integumentary: Denies rash, wounds or other skin concerns. Pain: Reports no pain currently, pain occurs mostly in afternoons. States pain happens in l ower left abdomen area with the increased fluid lately. She has been taking pain medication as needed for this. Note: Here for follow up, labs and [...] hr tablet Take 150 mg by mouth 2 times daily. clobetasol (TEMOVATE) 0.05% ointment Apply topically Once [...] fluorouracil 4,250 mg in sodium chloride 0.9% 7 mL CADD PUMP infusion 2,400 mg/m2 (Micah atment Plan Recorded) Intravenous Q46H Sirena Helton MD 4,250 mg at 04/04/17 1258 Allergies: Allergy: Allergies Allergen Reactions Propoxyphene Na [...] cancer Lichen sclerosus Objectives: Temp: 36.2 C (97.1 F) BP: 138/79 Pulse: 82 Resp: 18 SpO2: 98 % on Min/Max Temp past 24 hours:Temp Av.2 C (97.1 F) Min: 36.2 C (97.1 F) Max: 3 6.2 C (97.1 F) No intake or output data in the 24 hours ending 04/04/17 1723 Wt. Admission: Weight: 72.7 kg (160 lb 4.8 oz) Wt. Current: Weight: 72.7 kg (160 lb 4.8 oz) Wt Readings from Last 3 Encounters: 04/04/17 72.7 kg (160 lb 4.8 oz) 03/21/17 71.1 kg (156 lb 11.2 oz) 02/14/17 69.1 kg (152 lb 4.8 oz) Physical Exam: General: The [...] no erythema and no discharge. There is 30cc of opaque green/brown fluid. Extremities: Nontender, no erythema, no edema. [...] Baer., Jumana, RJameH., Fransisca Baltazar., Chayito Roque., Thaddeus TLuis Alfredo., Jyoti EJameT., Danielle, P .P.: Toxicity And Response Criteria Of The Eastern Cooperative Oncology Group. Am J Clin Onc ol 5:649-655, 1982. The ECOG Performance Status is in the public domain therefore available for public use. To duplicate the scale, please cite the reference above and credit the [facility], Sirena Richards M.D., Group Chair Diagnostic studies: Available data and images were reviewed personally. See reports. Significant results and findings are addressed here or in the Assessment and Plan. Results for PAULETTE BYRNES ( ) as of 04/04/2017 17:15 Ref. Range 04/04/2017 08:19 WBC Latest Ref Range: 4.0 - 11.0 K/uL 5.3 RBC: Latest Ref Range: 3.70 - 5.20 M/uL 3.77 Hgb Latest Ref Range: 11.5 - 16.0 g/dL 11.0 (L) Hct, Final Latest Ref Range: 34.0 - 47.0 % 32.9 (L) MCV Latest Ref Range: 83.0 - 101.0 fL 87.3 MCH Latest Ref Range: 28.0 - 35.0 pg 29.3 MCHC Latest Ref Range: 32.0 - 36.0 g/dL 33.5 RDW-CV Latest Ref Range: <15.0 % 17.0 (H) Platelet Count Latest Ref Range: 140 - 440 K/uL 301 MPV Latest Units: fL 6.6 Absolute Neutrophils Latest Ref Range: 1.80 - 8.50 K/uL 3.90 Absolute Lymphocytes Latest Ref Range: 0.60 - 3.20 K/uL 0.50 (L) Absolute Monocytes Latest Ref Range: 0.00 - 1.00 K/uL 0.50 Absolute Eosinophils Latest Ref Range: 0.00 - 0.40 K/uL 0.30 Absolute Basophils Latest Ref Range: 0.00 - 0.10 K/uL 0.00 % Neutrophils Latest Ref Range: 45.0 - 82.0 % 73.9 % Lymphocytes Latest Ref Range: 20.0 - 45.0 % 9.8 (L) % Monocytes Latest Ref Range: 4.0 - 12.0 % 9.4 % Eosinophils Latest Ref Range: 0.0 - 5.0 % 6.1 (H) % Basophils Latest Ref Range: 0.0 - 1.0 % 0.8 NA Latest Ref Range: 136 - 149 mmol/L 140 K Latest Ref Range: 3.5 - 5.1 mmol/L 3.4 (L) Chloride Latest Ref Range: 98 - 109 mmol/L 107 Carbon dioxide Latest Ref Range: 24 - 31 mmol/L 28 ANION GAP Latest Ref Range: 3 - 16 mmol/L 5 GLUCOSE Latest Ref Range: 70 - 109 mg/dL 88 BUN Latest Ref Range: 7 - 18 mg/dL 7 Creatinine Latest Ref Range: 0.60 - 1.30 mg/dL 0.53 (L) BUN/CREA Unknown 13.2 ALBUMIN Latest Ref Range: 3.2 - 5.0 g/dL 3.1 (L) Albumin/Globulin ratio Latest Ref Range: 0.8 - 2.0 1.1 Total protein Latest Ref Range: 6.0 - 7.8 g/dL 6.0 EGFR IF NOT Latest Ref Range: >=60 mL/min/1.73m2 >60 Calcium Latest Ref Range: 8.3 - 10.5 mg/dL 8.4 ALK PHOS Latest Ref Range: 40 - 110 U/L 84 ALT (SGPT) (REF) Latest Ref Range: 6 - 45 U/L 19 AST (SGOT) (REF) Latest Ref Range: 10 - 42 U/L 23 LDH TOTAL Latest Ref Range: 91 - 180 U/L 161 BILIRUBIN TOTAL Latest Ref Range: 0.1 - 1.5 mg/dL 0.8 GLOBULIN Latest Ref Range: 2.1 - 3.8 g/dL 2.9 CEA Latest Ref Range: 0.0 - 10.0 ng/mL 1.7 Pharmacovigilance: Palliative Care: Patient's Medications New Prescriptions No medications on file Modified Medications Modified Medication Previous Medication LORAZEPAM (ATIVAN) 1 MG TABLET LORazepam (ATIVAN) 1 mg tablet Take 1 tablet by mouth every 6 hours as needed for Anxiety (Nausea/vomiting/restlessnes s). Take 1 mg by mouth every 6 hours as needed for Anxiety (Nausea/vomiting/restlessness) . METRONIDAZOLE (FLAGYL) 500 MG TABLET metroNIDAZOLE (FLAGYL) 500 MG tablet Take 1 tablet by mouth 3 times daily for 21 days. Take 1 tablet by mouth 3 times genesis ly for 21 days. POTASSIUM CHLORIDE (K-DUR) 20 MEQ ER TABLET potassium chloride (K-DUR) 20 mEq ER tablet Take 1 tablet by mouth Daily for 30 days. Take 1 tablet by mouth Daily. Discontinued Medications METRONIDAZOLE (FLAGYL) 500 MG TABLET Take 1 tablet with (8oz) glass of clear liquid at 1 pm, 2 pm and 11 pm the day before surgery. METRONIDAZOLE (FLAGYL) 500 MG TABLET Take by mouth. TOLTERODINE (DETROL) 2 MG TABLET Take 1 tablet by mouth 2 times daily. Procedure: Day 1, Cycle 2 (14-day cycle) Completed; Released on 04/04/2017; Originally planned for 04/04/2017 Labs Lactate Dehydrogenase STAT, ONE TIME, Tue04/04/17 at 0820, For 1 occurrence OrderHistory CEA STAT, ONE TIME, Tue04/04/17 at 0820, For 1 occurrence OrderHistory Comprehensive Metabolic Panel STAT, ONE TIME, Tue04/04/17 at 0820, For 1 occurrence OrderHistory CBC with Differential STAT, ONE TIME, Tue04/04/17 at 0820, For 1 occurrence OrderHistory Nursing Orders OK to proceed with chemotherapy (Not Released) 04/04/17-- INFORMED CONSENT: The nature and character of the proposed treatment with Cycle#8 of a plan lanie 12 cycles of neoadjuvant FOLFOX and the anticipated results of the proposed treatment wi th Cycle#8 of a planned 12 cycles of neoadjuvant FOLFOX;recognized alternative forms of gregg tment, including non-treatment; the risks benefits, and side effects of proposed treatment, alternative treatments and non-treatment were discussed with the patient who consents to pro ceed with treatment with Cycle#8 of a planned 12 cycles of neoadjuvant FOLFOX. The treating provider has examined the patient and reviewed the diagnostic data, including laboratory prerna a, and deems that it is safe and appropriate to proceed with treatment with Cycle#8 of a jeremías nned 12 cycles of neoadjuvant FOLFOX.Electronically signed by: SIRENA HELTON MD 03/25 9:40. OrderHistory Plans for discharge (Not Released) CALL [facility]- ARRANGE FOR PUMP OFF ON [...] IVPB Intravenous, Administer over 15 Minutes, ONCE, Tue04/04/17 at 1015, For 1 dose Administer 30 [...] Intrav enous, Administer over 2 Hours, ONCE, Tue04/04/17 at 1045, For 1 dose Chemotherapy: Use appropriate handling [...] Intraveno us, Administer over 2 Hours, ONCE, Tue04/04/17 at 1045, For 1 dose Administer via y-site with oxaliplatin OrderHistory fluorouracil 4,250 mg in sodium chloride 0.9% 7 mL CADD PUMP infusion 4,250 mg (rounded from 4,248 mg = 2,400 mg/m2 1.77 m2 Treatment plan recorded BSA), Int ravenous, Administer over 46 Hours, EVERY 46 HOURS, First dose on Tue04/04/17 at 1245 OUTPATIENT Chemotherapy: Use appropriate handling precautions. Protect from light. Start Da y 1, disconnect Day 3. OrderHistory Portions of this chart may have been created with [employer] voice recognition software. Occasi onal wrong-word or [...]
--- OUTSIDE RECORDS SUMMARY | ~2019-06-11 | XMS | Encounter Summary ---
Demographics + + + | Address | [address] | | | [place] [address] | + + + | Home Phone | | + + + | Preferred Language | Unknown | + + + | Marital Status | | + + + | Episcopal Affiliation | Unknown | + + + | Race | Unknown | + + + | Ethnic Group | Unknown | + + + Author + + + | Author | [facility] | | | and [place] | + + + | Organization | [facility] | | | and [place] | + + + | Address | Unknown | + + + | Phone | Unavailable | + + + Support + + + + + | Name | Relationship | Address | Phone | + + + + + | Lamar Phillips | REZA | [place] [address] | | + + + + + Care Team Providers + +------+ + | Care Peat Shredder Tender Name | Role | Phone | [...] + + | 01/24/ | Hospital | [facility] | Tayla Abernathy | Rectal cancer (HCC) | | 2017 | Encounter | [facility] | J, PharmD [address] | | | | | ONCOLOGY CLINIC [address] | [address] | | | | | [address] | [place] [address] | | | | | [place] [address] | [phone] | | | | | [phone] | | | +--------+ + + + [...] original. Clinical Oncology Pharmacy Services Progress Note [facility] Pt. Name/Age/: Jenn Parada 56 y.o. 1960 CSN: [id number] Date of service: 01/24/2017 Provider: aTyla Abernathy, PharmD Identifying Statement: Jenn Parada is a 56 y.o. female from [address] [place] [address] [place] [address], There were no encounter diagnoses. The patient [...]
--- OUTSIDE RECORDS SUMMARY | ~2019-06-11 | XMS | Encounter Summary ---
Demographics + + + | Address | [address] | | | [place] [address] | + + + | Home Phone [...] Team Providers + +------+ + | Care Tax Services Specialist Name | Role | Phone | [...] | | | | CT ABDOMEN | [place], [place] | Mailcode: | | | | | AND PELVIS | [address] | [address] [facility] | | | | | W IV | Phone: | Hospital | | | | | [place] | [phone] | [place], [place] | | | | | CT | Fax: | [address] | | | | | ABDOMEN&PELV | [phone] | Phone: | | | | | IS | | [phone] | | | | | W/CONTRAST | | Fax: | | | | | | | [phone] | +--------+--------+ + + + + Diagnostic [...] | | | | MR RECTAL | [place], [place] | Mailcode: | | | | | W/WO [place] | [address] | [address] | | | | | MRI, PELVIS, | Phone: | Ralph | | | | | COMBO | [phone] | Research | | | | | | Fax: | Center | | | | | | [phone] | [facility] [place] | | | | | | | [address] | | | | | | | Phone: | | | | | | | [phone] | | | | | | | Fax: | | | | | | | [phone] | +--------+--------+ + + + + Encounter Details +--------+ + + + + | Date | Type | Department | Care Team | Description | +--------+ + + + + | 09/22/ | [employer] Incident Responder | Digestive Health | Ailyn Wolff MD | Rectal cancer (HCC) | | 2017 | | [place] at [facility] [address] | [address] | (Primary Dx) | | | | [address] | Amita Hines [place], | | | | | Mailcode: [place] | [place] [address] | | | | | for [facility] and | [phone] | | | | | [facility], [facility] 2 | | | | | | [place], [place] | | | | | | [address] | | | | | | [phone] | | | +--------+ + + + [...] | | | | | Amita Hines [place], | | | | | | [place] [address] | | | | | | [phone] | | | | | | | [...]
--- OUTSIDE RECORDS SUMMARY | ~2019-06-11 | XMS | Encounter Summary ---
Demographics + + + | Address | [address] | | | [place] [address] | + + + | Home Phone [...] Team Providers + +------+ + | Care Phys Therapist Name | Role | Phone | [...] | 2018 | | Center at [facility] [address] | [address] | Review | | | | [address] | Amita Hines [place], | | | | | Mailcode: [place] | [place] [address] | | | | | for Health and | [phone] | | | | | [facility] 2 | | | | | | [place], [place] | | | | | | [address] | | | | | | [phone] | | | +--------+ + + + [...] | | | | | Amita Hines [place], | | | | | | [place] [address] | | | | | | [phone] | | | | | | | | +--------+---------+ + + + documented as of this encounter Visit Diagnoses Not on filedocumented in this encounter"
--- OUTSIDE RECORDS SUMMARY | ~2019-06-11 | XMS | Encounter Summary ---
Demographics + + + | Address | [address] | | | [place] [address] | + + + | Home Phone [...] Team Providers + +------+ + | Care Container Maker Name | Role | Phone | [...] | 2018 | | Center at [facility] [address] | [address] | Review | | | | [address] | Amita Hines [place], | | | | | Mailcode: [place] | [place] [address] | | | | | for Health and | [phone] | | | | | [facility] 2 | | | | | | [place], [place] | | | | | | [address] | | | | | | [phone] | | | +--------+ + + + [...] | | | | | Amita Hines [place], | | | | | | [place] [address] | | | | | | [phone] | | | | | | | | +--------+---------+ + + + documented as of this encounter Visit Diagnoses Not on filedocumented in this encounter"
--- OUTSIDE RECORDS SUMMARY | ~2019-06-11 | XMS | Encounter Summary ---
Demographics + + + | Address | [address] | | | [place] [address] | + + + | Home Phone [...] Organization | [facility] | | | and [place] | + + + | Address | Unknown | + + + | Phone | Unavailable | + + + Support + + + + + | Name | Relationship | Address | Phone | + + + + + | Lamar Phillips | REZA | [place] [address] | | + + + + + Care Team Providers + +------+ + | Care Data Network Architect Name | Role | Phone | [...] | | Procedures | [address] | [place] [address] | | | | | [place] OFFICE | DIAZ PERALES, | Phone: | | | | | OUTPATIENT | [place] [address] | [phone] | | | | | VISIT 25 | Phone: | Fax: | | | | | MINUTES | [phone] | [phone] | | | | | Evaluate | Fax: | | | | | | | [phone] | | +--------+ + + + + + Encounter Details +--------+ + + + + | Date | Type | Department | Care Team | Description | +--------+ + + + + | 10/18/ | Hospital | [facility] | Joel Alfaro DO | | | 2017 | Encounter | MED CTR RADIATION | [address] | | | | | ONCOLOGY [address] | [place], [place] | | | | | [place], | [address] | | | | | [place] [address] | | | | | | [phone] | | | +--------+ + + + [...]
--- OUTSIDE RECORDS SUMMARY | ~2019-06-11 | XMS | Encounter Summary ---
Demographics + + + | Address | [address] | | | [place] [address] | + + + | Home Phone [...] Team Providers + +------+ + | Care Sausage Tier Name | Role | Phone | + [...] | | | | Pre-operativ | [address] | | | | | | e | [address] | | | | | | cardiovascul | [place], | | | | | | ar | [place] | | | | | | examination | [address] | | | | | | Tobacco | Phone: | | | | | | abuse | [phone] | | | | | | Dyspnea, | Fax: | | | | | | unspecified | [phone] | | | | | | type [...] | | | | | | at [facility] [address] | | | | | | [address] Mailcode: | | | | | | [address] | | | | | | Health and Healing, | | | | | | Building [address] | | | | | | [place], [place] | | | | | | [address] | | | | | | [phone] | | | +--------+ + + + [...] | | | | | [place], | | | | | | [place] [address] | | | | | | [phone] | | | | | | | [...] formed At | + +---- + | [facility] | [facility] | | [facility] Adult Echocardiography Laboratory [address] [facility] | | [place], [place] [address] Ph: | | | Pt Name: JENN BYRNES | | | Study Date/Time 10/06/2016 / 8:59:07 AMMRN: [id number] | | | Most recent prior: -Acc #: [id number] | | | No. previous echos: 0DOB: 1960 55 years Heart Rate: | | | 78 bpmHeight: 63.0 in Blood | | | Pressure: 131/69 mm/HgWeight: 142.0 lb | | | Gender: FBSA: 1.67 m2 | | | Order ID: [id number] Floorman: Brandon Hwang MA, | | | [facility] Referring Provider: Brittany Rojas [...] Report electronically signed by: | | | [id number] Cole Chávez MD (10/06/2016, 10:21:24 AM)REPORT | | | ABPD=[id number] HOSP=PO REGION=A0 Final | | | cm [...] | | | |Report electronically signed by: [id number] Cole Chávez MD (10/06/2016, 10:21:24 | | |AM) | | |REPORT PEFK=[id number] HOSP=PO REGION=A0 | | | | | | | | | | | | Final | | + +---- + + + | Procedure Note | + + | Interface, Cardiology Results - 10/06/2016 10:21 AM [facility] | | [facility] Echocardiography Laboratory [address] [place] [address] | | [place], [place] [address] Pt Name: JENN | | BRITTANY BYRNES Study Date/Time 10/06/2016 / 8:59:07 AMMRN: [id number] | | Most recent prior: -Acc #: [id number] No. previous echos: 0DOB: | | 1960 55 years Heart Rate: 78 bpmHeight: 63.0 in Blood | | Pressure: 131/69 mm/HgWeight: 142.0 lb Gender: FBSA: | | 1.67 m2 Order ID: [id number] Floorman: Brandon Hwang MA, | | RDCSReferring Provider: Brittany Rojas Location: [facility] Performed: | | 2D, Color [...] | indexed values Report electronically signed by: [id number] Cole Chávez MD | | (10/06/2016, 10:21:24 AM)REPORT QMPZ=[id number] HOSP=PO REGION=A0 Final | |ventricular ejection fraction [...] | | | |Report electronically signed by: [id number] Cole Chávez MD (10/06/2016, 10:21:24 | |AM) | |REPORT PLIZ=[id number] HOSP=PO REGION=A0 | | | | | | | | Final | + + + + + + + | Performing | Address | City/State/[facility] | Phone Number | | Organization | | | | + + + + + | [facility] | [address] | [place], [place] | | | CARDIOLOGY | [address] | [address] | | + + + + + documented in this encounter Visit Diagnoses + + | Diagnosis | + + | Pre-operative cardiovascular examination | + + | Tobacco abuse Tobacco use disorder | + + | Dyspnea, unspecified type | + + | Aortic systolic murmur on examination | + + documented in this encounter"
--- OUTSIDE RECORDS SUMMARY | ~2019-06-11 | XMS | Encounter Summary ---
Demographics + + + | Address | [address] | | | [place] [address] | + + + | Home Phone [...] Providers + +------+ + | Care Food Processing Scientist Name | Role | Phone | [...] | | | | MR RECTAL | [place], [place] | Mailcode: | | | | | [place] | [address] | [address] | | | | | MRI, PELVIS, | Phone: | Nevaeh | | | | | COMBO | [phone] | Research | | | | | | Fax: | Center | | | | | | [phone] | [place], [place] | | | | | | | [address] | | | | | | | Phone: | | | | | | | [phone] | | | | | | | Fax: | | | | | | | [phone] | +--------+--------+ + + + + Reason [...] | | | MR RECTAL | [facility] [place] | Mailcode: | | | | | [place] | [address] | [address] | | | | | MRI, PELVIS, | Phone: | [facility] | | | | | COMBO | [phone] | Research | | | | | | Fax: | Center | | | | | | [phone] | [place], [place] | | | | | | | [address] | | | | | | | Phone: | | | | | | | [phone] | | | | | | | Fax: | | | | | | | [phone] | +--------+--------+ + + + + Encounter Details +--------+ + + + + | Date | Type | Department | Care Team | Description | +--------+ + + + + | 10/05/ | Hospital | [facility] | Ailyn Wolff MD | | | 2017 | Encounter | [place] at | [address] | | | | | [place] [address] [address] | Amita Hines [place], | | | | | [address] | [place] [address] | | | | | [place], [place] | [phone] | | | | | [address] | | | | | | [phone] | | | +--------+ + + + [...] | | | | | | [place] [address] | | | | | | [phone] | | | | | | | [...] + + | [facility] | [address] | [place] [address] | [phone] | | IMAGING, POINT OF | | [...]
--- OUTSIDE RECORDS SUMMARY | ~2019-06-11 | XMS | Encounter Summary ---
Demographics + + + | Address | [address] | | | [place] [address] | + + + | Home Phone [...] Providers + +------+ + | Care Development Technologist Name | Role | Phone | [...] LOW ANTERIOR | | 2017 | | [facility] | [address] [facility] | RESECTION, POSTERIOR | | | | Admitting Desk | [address] [address], | VAGINECTOMY, | | | | Located on the | [place] [address] | ILEOSTOMY, POSSIBLE | | | | floor [address] [facility] | [phone] | ABDOMINOPERINEAL | | | | [address] | | RESECTION Path: | | | | [place], [place] | | [address] | | | | [address] | | | +--------+---------+ + + + [...] be different fro m the original. [facility] Discharge Summary Green Service Admit [...] posterior vaginal wall. 5. Placement of a 19-Hungarian Albert drain through the right lower quadrant [...] narcotic pain medications, please call the clinic ([phone] ) by 2 pm on for any [...] hours by calling the surgery office at [phone]. After hours, weekends and holidays, you may call the hospital feeder operator at [phone] and have the ged preparation teacher Green Team for general surgery paged. Constipation: [...] your instructions. Acetaminophen (Tylenol): You may use dfxu-dtv-nsrzynd (OTC) acetaminophen for milder pain. Do not [...] medications with Hydrocodone such as Vicodin or [place]. It is important to keep track of [...] Center 07/27/2017 3:40 PM Ailyn Wolff Digestive [facility] at [facility] 6th Floor [phone] [facility] Schedule the following appointment(s) when [...] to discharge) Natalie Poon MD Surgery, PGY1 [facility] Associated [...] through Care Everywhere.Bowel Resection : Open: Post-op (Uzbek)Post-op Infection (Uzbek)Ureteral Stent Placement: [facility]-op ([facility])documented in this encounter Medications at [...] | | 18 | | | | [id number], Skin prep: | | | | | | | 3M 3344 (30/mo), Adh | | | | | | | Rem HO 7760 | | | | | | | (1box/mo), Rings: HO | | | | | | | 8805 (10/mo), | | | | | | | [place] [address] | | | | | | | (60/mo), Pwdr: CT | | | | | | | 971022 (1oz/mo), | | | | | | | Belt: Lrg (2/mo) | | | | | | | and Irrigation CO | | | | | | | 348253, Sleeve CO | | | | | | | 204974 | | | | | + + [...] Physician: Ailyn Wolff MD Patient: PAULETTE BYRNES [id number] 24H events/Subjective: Epidural removed yesterday, pain controlled. [...] of drainage, ostomy pink, appliance with stool. [place] in place at tractotomy site. Extremities: WWP, [...] or if develops Cr elevatio n - Casitllo: removed, no retention - remove anthony before discharge #anxiety/depression Continue home wellbutrin Diet: reg FEN: Off IVF Pain: epidural, tylenol Prophy: enoxaparin Dispo: discharge later today vs. tomorrow The attending of record for this patient is Ailyn Wolff MD. Tim Davila MD General Surgery, PGY-1 Pager: [phone] Associated attestation - Ailyn Wolff MD - [...] BLOCK PROGRESS NOTE 07/04/2017 Author: Andree English ADMISSION NURSE COORDINATOR Epidural day # 4 POD# 4. Status [...] Andree English NP Adult Pain Service Pager [phone] Team Pager [phone] Tim See MD - 5:31 AM PST Green Surgery Progress Note Hospital Day: 4 Attending Physician: Ailyn Wolff MD Patient: PAULETTE BYRNES [id number] 24H events/Subjective: Epidural still functioning, removed later [...] Tim Davila MD General Surgery, PGY-1 Pager: [phone] Associated attestation - Ailyn Wolff MD - [...] 50 mL/hr intravenous CONTINUOUS 50 mL/hr (07/03/17 7825) ropivacaine 0.1 %-HYDROmorphone 10 mcg/mL epidural infusion [...] full diet Alta Woods MD Team Pager [phone] signed by Alta Woods MD at 07/03/2017 [...] this patient. Alta Woods MD Team Pager [phone] signed by Alta Woods MD at 07/02/2017 [...] [place] [phone] with questions. Dorene Carter () MSN, ACNP- Nurse Practitioner Acute Pain [facility] [address] [place] [address] Vicki Erwin M D - 07/01/2017 6:04 AM PSTAPS brief note: Evaluated epidural at bedside. Catheter intact h/e filter broken resulting in leak. Replace d filtered and resumed epidural infusion. Vicki Emanuel MD APS pg [id number] signed by Vicki Emanuel MD at 07/10/2017 3:36 PM PSTHasl Natalie mckeon MD - 07/01/2017 5:36 AM PST Green Surgery Progress Note Hospital Day: 1 Attending Physician: Ailyn Wolff MD Patient: PAULETTE BYRNES [id number] 24H events/Subjective: Pt comfortable in bed this [...] - 07/01/1759 07/01/17699 - 07/02/17 0659 Shift 5391-9786 5729-7056 1227-5327 24 Hour Total 6150-9743 5101-6250 8981-0841 24 Hour Tot al I N T [...] Poon MD PGY-1 Department of General Surgery [id number] Ivette Shannon MD - 06/30/2017 11:02 PM [...] Jade MD Otolaryngology-Head & Neck Surgery PGY-1 [id number] documented in this encount er Plan of Treatment +--------+---------+ + + + | Date | Type | Specialty | Care Team | Description | +--------+---------+ + + + | 06/18/ | Office | Surgery | Ailyn Wolff MD | | | 2019 | Visit | | [address] | | | | | | [place], | | | | | | [place] [address] | | | | | | [phone] | | | | | | | [...] CHG), | e | 10:19 AM | ([facility]) | procedure are in the | | [...] PLACEMENT | ve | 8:03 AM | ([facility]) | | | | Surgic | PST [...] MARCIALAM | [address] | [place], [place] | | | [facility]ARE | [address] | [address] | | | TESTS | | | [...] MARQUAM | [address] | [place], [place] | | | [facility] | [address] | [address] | | | TESTS | | | [...] | + + + + + | CHAIPN BALDWIN | [address] | [place], [place] | | | [facility] | [address] | [address] | | | TESTS | | | [...] MARCIALAM | [address] | [place], [place] | | | [facility] | [address] | [address] | | | TESTS | | | [...] MARQUAM | [address] | [place], [place] | | | [facility] CARE | [address] | [address] | | | TESTS | | | [...] BALDWIN | [address] | [place], [place] | | | [facility] | [address] | [address] | | | TESTS | | | [...] MARQUAM | [address] | [place], [place] | | | [facility] | [address] | [address] | | | TESTS | | | [...] - MARQUAM | [address] | [place], [place] | | | [facility] CARE | [address] | [address] | | | TESTS | | | [...] + + + | CHAPIN BALDWIN | [address] | [place], [place] | | | [facility] | [address] | [address] | | | TESTS | | | [...] MARQUAM | [address] | [place], [place] | | | [facility] OF [facility] | [address] | [address] | | | TESTS | | | [...] MARCIALAM | [address] | [place], [place] | | | [facility] | [address] | [address] | | | TESTS | | | [...] BALDWIN | [address] | [place], [place] | | | [facility] | [address] | [address] | | | TESTS | | | [...] NICOLASA | [address] | [place], [place] | | | [facility] [place] | [address] | [address] | | | TESTS | | | [...] - NICOLASA | [address] | [place], [place] | | | [facility] | [facility] | [address] | | | TESTS | | | [...] BALDWIN | [address] | [place], [place] | | | [facility] [place] | [facility] | [address] | | | TESTS | | | [...] - MARQUAM | [address] | [place], [place] | | | [facility] | [address] | [address] | | | TESTS | | | [...] + + + | CHAPIN BALDWIN | [address] | [place], [place] | | | [facility] CARE | [address] | [address] | | | TESTS | | | [...] MARQUAM | [address] | [place], [place] | | | [facility] CARE | [facility] | [address] | | | TESTS | | | [...] MARQUAM | [address] | [place], [place] | | | [facility] [place] | [address] | [address] | | | TESTS | | | [...] MARCIALAM | [address] | [place], [place] | | | [facility] | [address] | [address] | | | TESTS | | | [...] BALDWIN | [address] | [place], [place] | | | [facility] | [address] | [address] | | | TESTS | | | [...] MARQUAM | [address] | [place], [place] | | | [facility] [place] | [address] | [address] | | | TESTS | | | [...] NICOLASA | [address] | [place], [place] | | | [facility] CARE | [facility] | [address] | | | TESTS | | | [...] BALDWIN | [address] | [place], [place] | | | [facility] | [facility] | [address] | | | TESTS | | | [...] MARQUAM | [address] | [place], [place] | | | [facility] [place] | [address] | [address] | | | TESTS | | | [...] | + + + + + | [facility] | [address] | [place] [address] | | | SERVICES, CORE | SUZY [...] [facility] | [address] | [place] [address] | | | SERVICES, CORE | [address] [...] [facility] | [address] | [place] [address] | | | SERVICES, CORE | SUZY [...] | | | LABORATORY | | | [place] | | | SERVICES, | | | [...] [facility] | [address] | [place] [address] | | | SERVICES, CORE | SUZY [...] (H) | 70 - 99 mg/dL | PASU - | | | GLUCOSE, | | [...] + + + + | CHAPIN - NCIOLASA | [address] | [place], [place] | | | [facility] [place] | [facility] | [address] | | | TESTS | | | | + + + + + CAPILLARY BLOOD GLUCOSE (NO CHG), POC (07/01/2017 12:06 AM [facility]) + +---------+ + + + [...] MARCIALAM | [address] | [place], [place] | | | [facility] | [facility] | [address] | | | TESTS | | | [...] NICOLASA | [address] | [place], [place] | | | [facility] | [address] | [address] | | | TESTS | | | [...] NICOLASA | [address] | [place], [place] | | | [facility] OF [place] | [facility] | [address] | | | TESTS | | | [...] MARCIALAM | [address] | [place], [place] | | | [facility] CARE | [facility] | [address] | | | TESTS | | | [...] [facility] | [address] | [place] [address] | | | SERVICES, CORE | [address] | | | + + + + + OPERATION RECORD (06/30/2017 7:26 PM PST) + + | Procedure Note | + + | Ailyn Wolff MD - 06/30/2017 7:26 PM PST Date of Service: 06/30/2017 Attending | | Surgeon: Ailyn Wolff MD Infant Childcare Provider(s): Sae Slater MD | | Donna Gonzalez [...] resection with primary anastomosis.8. Placement of a 19-Hungarian Albert drain through the | | right lower quadrant wall into the presacral space.9. 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 Placement of anthony drain into former rectocutaneous | | afpcggz83. Cystoscopy and bilateral ureteral stent placement with [...] fistula tract. We performed a small bowel onrv-nq-xaxu | | stapled anastomosis. Note, the abscess [...] closed the mesentery with a 3-0 Polysorb fblcat-lq-kxfve suture. The anastomosis | | was widely [...] the external sphincter with interrupted 0 Polysorb ysigtr-nw-qqkuc sutures. We closed | | the deep [...] #1 Maxon sutures x2. We placed a 19-Hungarian Albert | | drain through the right [...] | | 06/30/2017 17:03:37DT: 06/30/2017 19:26:50Job #: [id number] | | | | /[id number] | + + CAPILLARY BLOOD GLUCOSE (NO [...] BALDWIN | [address] | [place], [place] | | | [facility] OF [place] | [address] | [address] | | | TESTS | | | [...] MARQUAM | [address] | [place], [place] | | | [facility] CARE | [address] | [address] | | | TESTS | | | [...] + + + | [facility]IN | [address] | [place], [place] | | | [facility] | [address] | [address] | | | TESTS | | | | + + + + + PROCEDURE NOTE (06/30/2017 5:14 PM PST) + + | Procedure Note | + + | Sae Slater MD - 06/30/2017 5:14 PM PST BRIEF OPERATIVE NOTEProcedure Date: | | 06/30/2017Author: aSe Slater [facility] Phys[facility]: Dr. Ailyn Lowistants: Sae | | MD Nohemy, Q4VsdisDonna Gonzalez MD, Y1Kftyrzwkiiku Diagnosis: rectal cancerPostoperative | | Diagnosis: sameProcedure [...] | | Abdominal precautionsInitial surgical contact: Green analysis internship. Sae Slater MDGeneral | | Surgery, B5Flyfe [address] | |2. En bloc resection of rectum, [...] | | | |Initial surgical contact: Green analysis internship. | | | | | |Sae Slater MD | |General Surgery, R5 | |Pager [phone] | + + PROCEDURE NOTE (06/30/2017 2:44 [...] c/o | | flank pain). Delilah ValePasuri [id number] of Urology | | | |Indications: 56 [...] | | | |Delilah Vale | |Pager [phone] | |PGY-5 | |Department of Urology | [...] BALDWIN | [address] | [place], [place] | | | [facility] | [address] | [address] | | | TESTS | | | [...] placementSURGEON: Juan Luis | | MD Princess MILKING MACHINE MECHANIC: Natalie Poon MDANESTHESIA: General. ESTIMATED BLOOD LOSS: [...] usual | | sterile fashion. A 21 togolese cystoscope was inserted into the urethra atraumatically. [...] [place] PGY - 1Department of Urology PGR [id number] | |The patient was brought to the [...] the usual sterile | |fashion. A 21 togolese cystoscope was inserted into the urethra atraumatically. [...] was then turned [facility] to [facility] surgical team for their portion of the procedure. Dr. Sánchez was present and directed t he entirety of the case. | | | |The attending of record is Juan Luis Sánchez | | | | | |Natalie Poon MD | |PGY - 1 | |Department of Urology | |PGR [id number] | + + ABG-FULL ABL, POC (06/30/2017 [...] MARCIALAM | [address] | [place], [place] | | | [facility] OF [place] | [facility] | [address] | | | TESTS | | | [...] NICOLASA | [address] | [place], [place] | | | [facility] CARE | [address] | [address] | | | TESTS | | | [...] NICOLASA | [address] | [place], [place] | | | [facility] [place] | [address] | [address] | | | TESTS | | | [...] | | | | | | (pT): vH8Lyuvqdgo Lymph | | | | | | Nodes (pN): | | | | | | uF2Hfgfrj of regional | | | | | [...] | | | | | | record #[id number]. | | | | | | A: [...] | | | | | | diameter. Ambulatory Analyst | | | | | | sections [...] identified. | | | | | | Ambulatory Analyst sections | | | | | | [...] additional | | | | | | players club representative sections | | | | | [...] adipose | | | | | | dzsrnjZ24, anal | | | | | | [...] | | | | | remnantF1 and B3obtja | | | | | | bowel [...] + + + + | [facility] | [address] | [place] [address] | | | PATHOLOGY | [address] [...]
--- OUTSIDE RECORDS SUMMARY | ~2019-06-11 | XMS | Encounter Summary ---
Demographics + + + | Address | [address] | | | [place] [address] | + + + | Home Phone [...] + + + | Author | [facility] | | | and [place] | + + + | Organization | [facility] | | | and [place] | + + + | Address | Unknown | + + + | Phone | Unavailable | + + + Support + + + + + | Name | Relationship | Address | Phone | + + + + + | Lamar Phillips | REZA | [place] [address] | | + + + + + Care Team Providers + +------+ + | Care Watch Inspector Name | Role | Phone | [...] | Joel White DO | [address] | | | | | neoplasm of | [address] | [place], | | | | | rectum (HCC) | [address] | [place] | | | | | Procedures | [place], | [address] | | | | | MRI Pelvis | [place] [address] | Phone: | | | | | w wo | Phone: | [phone] | | | | | Contrast [place] | [phone] | Fax: | | | | | MRI, | Fax: | [phone] | | | | | PELVIS, | [phone] | | | | | | COMBO [...] Malignant | Joel White DO | [address] | | | | | neoplasm of | [address] | [place], | | | | | rectum (HCC) | [address] | [place] [address] | | | | | Status | [place], | Phone: | | | | | post | [address] | [phone] | | | | | chemotherapy | Phone: | Fax: | | | | | Procedures | [phone] | [phone] | | | | | CT Chest | Fax: | | | | | | Abdomen | [phone] | | | | | | Pelvis [...] [place], [place] | | | | | [place], | [address] | | | | | [place] [address] | | | | | | [phone] | | | +--------+ + + + [...] sigmoid colon in the perirectal fat (axial [id number]), | | this is drained by [...]
--- OUTSIDE RECORDS SUMMARY | ~2019-06-11 | XMS | Encounter Summary ---
Demographics + + + | Address | [address] | | | [place] [address] | + + + | Home Phone [...] Team Providers + +------+ + | Care Orthodontic Assistant Name | Role | Phone | [...] [address] | | | | | | [place], [place] | | | | | | [address] | | | +--------+ + + + [...] | | | | | [facility] | | | | | | [place] [address] | | | | | | [phone] | | | | | | | [...]
--- OUTSIDE RECORDS SUMMARY | ~2019-06-11 | XMS | Encounter Summary ---
Demographics + + + | Address | [address] | | | [place] [address] | + + + | Home Phone [...] + + | Author | [facility] | | | and [place] | + + + | Organization | [facility] | | | and [place] | + + + | Address | Unknown | + + + | Phone | Unavailable | + + + Support + + + + + | Name | Relationship | Address | Phone | + + + + + | Lamar Phillips | REZA | [place] [address] | | + + + + + Care Team Providers + +------+ + | Care Director Craft Center Name | Role | Phone | + [...] + + | 12/13/ | Hospital | [facility] | [facility], | Rectal cancer (HCC) | | 2017 | Encounter | MED CTR MEDICAL | Sirena White MD [address] | | | | | ONCOLOGY CLINIC [address] | [facility] | | | | | [facility] | [place] [address] | | | | | [place] [address] | [phone] | | | | | [phone] | | | +--------+ + + + [...] from the original. Hematology/Oncology Progress Note [facility] [place] Pt. Name/Age/: Paulette Byrnes 56 y.o. 1960 Med. Record Number: [id number] Date of admission: 12/13/2016 The patient's primary care provider is Kristian Anderson DO. Identifying Statement: Paulette Byrnes is a 56 y.o. female from [address] [place] [address] with Locally Advanced Rectal Cancer. The patient chart and medications were reviewed in detail and the patient was seen and exam ined. History of Present Illnesses, their Current Assessments and Plans: Problem List Rectal cancer Overview ACTIVE DIAGNOSIS: Locally Advanced Rectal Cancer. 1. Paulette presented to the [facility] emergency room on July 20, 2016 with [...] cm within the rectum. Biopsy specimen number [id number] evaluated by Dr. Felipe Nixon of [facility] was notable for a tubular adenoma without high-grade dysplasia or overt carcinoma. This proced ure also included a full colonoscopy through the ostomy were 2 additional polyps were remove d, a tubular adenoma at 35 cm and a hyperplastic polyp at [address] C/A/P at [facility] in [place], [place] demonstrated no evidence of metastatic disease. [...] Shea Mcneill of the [facility] where her case was presented to their tumor board. Clinical exa m is notable for an overt rectal carcinoma invading into the vagina. 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 Concerns raised by the [facility] Tumor Board were that the [...] as well as mutation analysis." Pathological Specimen #[id number] ([facility]). Tubulovillous adenoma with high grade dysplasia [...] 27. Consultation with Dr. Ailyn Wolff in [place] on January 03 with advanced imaging; Pelvic CT rossi an d MRI. Start continuous infusion of 5FU at 225 mg/m/day on January 10, 2017 to be delivered for the duration of her radiation therapy treatment plan. Consult with Dr. Alfaro on January 15, 2017 regarding neoadjuvant radiation therapy. Surgery with Dr. Ailyn Wolff in [place] about three weeks after completing her combined-modalit [...] this chart may have been created with [employer] voice recognition software. Occasi onal wrong-word [...]
--- OUTSIDE RECORDS SUMMARY | ~2019-06-11 | XMS | Encounter Summary ---
Demographics + + + | Address | [address] | | | [place] [address] | + + + | Home Phone [...] + | Organization | [facility] | | | and [place] | + + + | Address | Unknown | + + + | Phone | Unavailable | + + + Support + + + + + | Name | Relationship | Address | Phone | + + + + + | Lamar Phillips | REZA | [place] [address] | | + + + + + Care Team Providers + +------+ + | Care Senior Informatica Developer Name | Role | Phone | [...] neoplasm of | Mike C, | [place] | | | | | rectum (HCC) | MD [address] | [place], | | | | | Procedures | [address] | [place] [address] | | | | | [place] | [place], | Phone: | | | | | [place] | [place] [address] | [phone] | | | | | INJECTION, | Phone: | Fax: | | | | | [address] [place] | [phone] | [phone] | | | | | [place] | Fax: | | | | | | HCL | [phone] | | | | | | INJECTION, [...] | | | | | 1 MG [place] | | | | | [...] | | | | | 20 MG [place] | | | | | [...] | | | | | 12.5 MG [place] | | | | | [...] + + | 11/01/ | Hospital | [facility] | [place], | Rectal cancer (HCC) | | 2017 | Encounter | MED CTR CHEMO | Mike White MD [address] | | | | | INFUSION [address] | [address] | | | | | [place], | [place] [address] | | | | | [place] [address] | [phone] | | | | | [phone] | | | +--------+ + + + [...] + | [facility] | [address] [place] [address] | [place] | [phone] | | [facility] | | [address] | | | - LABORATORY | | [...] | mL/min/1.73m2 | DONALD | | | MACEDONIAN | RATE,ESTIMATED | | MEDICAL | | | | mL/min/1.76b0Fdcf than | | CENTER - | | [...] | 8.8 | 8.3 - 10.5 | [facility] | | | | | mg/dL | [...] + | [facility] | [address] [place] [address] | [place] | [phone] | | [facility] | | [address] | | | - LABORATORY | | [...] | | | | | | [facility] | | | | | [...] [address] | [place] | [phone] | | [facility] | | [address] | | | - LABORATORY | | [...] [address] | [place] | [phone] | | [facility] | | [address] | | | - LABORATORY | | [...] [address] | [place] | [phone] | | [facility] | | [address] | | | - LABORATORY | | [...]
--- OUTSIDE RECORDS SUMMARY | ~2019-06-11 | XMS | Encounter Summary ---
Demographics + + + | Address | [address] | | | [place] [address] | + + + | Home Phone | | + + + | Preferred Language | Unknown | + + + | Marital Status | | + + + | Pentecostal Affiliation | Unknown | + + + | Race | Unknown | + + + | Ethnic Group | Unknown | + + + Author + + + | Author | [facility] | | | and [place] | + + + | Organization | [facility] | | | and [place] | + + + | Address | Unknown | + + + | Phone | Unavailable | + + + Support + + + + + | Name | Relationship | Address | Phone | + + + + + | Lamar Phillips | REZA | [place] [address] | | + + + + + Care Team Providers + +------+ + | Care Cyber Intel Planner Name | Role | Phone | + [...] + + | 03/21/ | Hospital | [facility] | [facility], | Rectal cancer (HCC) | | 2017 | Encounter | MED CTR MEDICAL | Sirena White MD [address] | | | | | ONCOLOGY CLINIC [address] | [facility] | | | | | [facility] | [place] [address] | | | | | [place] [address] | [phone] | | | | | [phone] | | | +--------+ + + + [...] nt from the original. Hematology/Oncology Progress Note [facility] [place] Pt. Name/Age/: Paulette Byrnes 56 y.o. 1960 [facility]. Record Number: [id number] Date of admission: 03/21/2017 The patient's primary care provider is Kristian Anderson DO. Identifying Statement: Paulette Byrnes is a 56 y.o. female from [address] [place] [address] with Locally Advanced Rectal Cancer. The patient [...] cm within the rectum. Biopsy specimen number [id number] evaluated by Dr. Felipe Nixon of [facility] was notable for a tubular adenoma without high-grade dysplasia or overt carcinoma. This proced ure also included a full colonoscopy through the ostomy were 2 additional polyps were remove d, a tubular adenoma at 35 cm and a hyperplastic polyp at [address] C/A/P at [facility] in [place], [place] demonstrated no evidence of metastatic disease. 4. On September 22, 2016 Dr. Thacker placed in internal jugular Port-A-Cath without complications. 5. MRI of pelvis performed on October 05, [address] [facility]: Rectal mass 7.7 cm x 6.2 cm x 9.6 cm in length located within 3 cm of the anal sphincter and 6.4 cm from the anal verge with radi ographic extension though multiple areas of the bowel wall. 6. CT abdomen/pelvis also at [facility] October 05, 2016; large almost completely circumferential r ectosigmoid mass better delineated on the corresponding MRI with adjacent probable abscess. No distant metastases identified. 7. On October 14, 2016 Paulette was evaluated by Dr. Ailyn Wolff and Dr. Shea Mcneill of the [facility] where her case was presented to their tumor board. Clinical exa m is notable for an overt rectal carcinoma invading into the vagina. 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 Concerns raised by the [facility] Tumor Board were that the prior placement [...] as well as mutation analysis." Pathological Specimen #[id number] ([facility]). Tubulovillous adenoma with high grade dysplasia and [...] mg/m/day. 14. Multidisciplinary Care Team Conference at [facility] March 10, 2017; "Given borderline resec [...] returned to clinic on 03/21/2017 with a video tape transferrer for follow-up and Cyc le #7 FOLFOX chemotherapy. Interval history is notable for the fact that Paulette was re-evaluated by Dr. Ailyn Wolff and [facility] multidisciplinary care team at [facility]. The consensus was that disease had improved, but qiana ined unresectable. Six additional cycles of FOLFOX were recommended followed by repeat evalu ation at [facility] for resection in May,. Chief Complaint [...] by Dr. Wolff and his team at [facility]. Monitor for signs and symptoms of [...] this chart may have been created with [employer] voice recognition software. Occasi onal wrong-word or [...]
--- OUTSIDE RECORDS SUMMARY | ~2019-06-11 | XMS | Encounter Summary ---
Demographics + + + | Address | [address] | | | [place] [address] | + + + | Home Phone [...] Team Providers + +------+ + | Care Instrument And Control Technician Name | Role | Phone | [...] | | [address] | [place], | | | | | Mailcode: [place] | [place] [address] | | | | | for Health and | [phone] | | | | | [facility] [address] | | | | | | [place], [place] | | | | | | [address] | | | | | | [phone] | | | +--------+ + + + [...] | | | | | | [place] [address] | | | | | | [phone] | | | | | | | | +--------+---------+ + + + documented as of this encounter Visit Diagnoses Not on filedocumented in this encounter"
--- OUTSIDE RECORDS SUMMARY | ~2019-06-11 | XMS | Encounter Summary ---
Demographics + + + | Address | [address] | | | [place] [address] | + + + | Home Phone | | + + + | Preferred Language | Unknown | + + + | Marital Status | | + + + | Zoroastrianism Affiliation | Unknown | + + + | Race | Unknown | + + + | Ethnic Group | Unknown | + + + Author + + + | Author | [facility] | | | and [place] | + + + | Organization | [facility] | | | and [place] | + + + | Address | Unknown | + + + | Phone | Unavailable | + + + Support + + + + + | Name | Relationship | Address | Phone | + + + + + | Lamar Phillips | REZA | [place] [address] | | + + + + + Care Team Providers + +------+ + | Care Building Energy Retrofit Technician Name | Role | Phone | [...] + + | 01/10/ | Hospital | [facility] | [place], | Rectal cancer (HCC) | | 2017 | Encounter | MED CTR CHEMO | Mike White MD [address] | | | | | INF[address] | [address] [facility] | | | | | [place], | [place] [address] | | | | | [place] [address] | [phone] | | | | | [phone] | | | +--------+ + + + [...] [address] | [place] | [phone] | | [facility] | | [address] | | | - LABORATORY | | [...] mL/min/1.73m2 | [facility] | | | [facility] | RATE,ESTIMATED | | MEDICAL | | | | mL/min/1.53n0Lgqs than | | CENTER - | | [...] + | [facility] | [address] | [place] | [phone] | | [facility] | | [address] | | | - LABORATORY | | [...] ST. | [address] | [place] | [phone] | | [facility] | | [address] | | | - LABORATORY | | [...]
--- OUTSIDE RECORDS SUMMARY | ~2019-06-11 | XMS | Encounter Summary ---
Demographics + + + | Address | [address] | | | [place] [address] | + + + | Home Phone [...] Team Providers + +------+ + | Care Deployment Specialist Name | Role | Phone | [...] 2018 | | Center at [facility] [address] | [address] | Review | | | | [place] | [place], | | | | | Mailcode: [place] | [place] [address] | | | | | for Health and | [phone] | | | | | [facility] | | | | | | [place], [place] | | | | | | [address] | | | | | | [phone] | | | +--------+ + + + [...] | | | | | [place], | | | | | | [place] [address] | | | | | | [phone] | | | | | | | | +--------+---------+ + + + documented as of this encounter Visit Diagnoses Not on filedocumented in this encounter"
--- OUTSIDE RECORDS SUMMARY | ~2019-06-11 | XMS | Encounter Summary ---
Demographics + + + | Address | [address] | | | [place] [address] | + + + | Home Phone [...] Team Providers + +------+ + | Care Potato Chip Maker Name | Role | Phone | + +------+ + | Kristian Anderson DO | PCP | | + +------+ + Encounter Details +--------+ + + + + | Date | Type | Department | Care Team | Description | +--------+ + + + + | 06/28/ | Telephone | Digestive Health | Ailyn Wolff MD | | | 2018 | | [place] at [facility] [address] | [address] | | | | | [place] | [place], | | | | | Mailcode: [place] | [place] [address] | | | | | for Health and | [phone] | | | | | [place] [address] | | | | | | [place], [place] | | | | | | [address] | | | | | | [phone] | | | +--------+ + + + [...] | | | | Amita Hines [facility] | | | | | | [place] [address] | | | | | | [phone] | | | | | | | | +--------+---------+ + + + documented as of this encounter Visit Diagnoses Not on filedocumented in this encounter"
--- OUTSIDE RECORDS SUMMARY | ~2019-06-11 | XMS | Encounter Summary ---
Demographics + + + | Address | [address] | | | [place] [address] | + + + | Home Phone [...] Organization | [facility] | | | and [place] | + + + | Address | Unknown | + + + | Phone | Unavailable | + + + Support + + + + + | Name | Relationship | Address | Phone | + + + + + | Lamar Phillips | REZA | [place] [address] | | + + + + + Care Team Providers + +------+ + | Care Maintenance Groundskeeper Name | Role | Phone | + +------+ + | Kristian Anderson DO | PCP | | + +------+ + Reason for Visit + + + | Reason | Comments | + + + | Nutrition Counseling | | + + + Evaluate & [...] | | MD [address] | | | | | | [address] | [place], | | | | | | [place], | [place] [address] | | | | | | [place] [address] | Phone: | | | | | | Phone: | [phone] | | | | | | [phone] | Fax: | | | | | | Fax: | [phone] | | | | | | [phone] | | +--------+ + + + + + Encounter Details +--------+ + + + + | Date | Type | Department | Care Team | Description | +--------+ + + + + | 10/18/ | Hospital | [facility] | [place], | Rectal cancer (HCC) | | 2017 | Encounter | MED CTR NUTRITION | Mike White MD [address] | (Primary Dx) | | | | SERVICES [address] | [address] [place] | | | | | [place], | [place] [address] | | | | | [place] [address] | [phone] | | | | | [phone] | | | | | | | [...] of this encounter Progress Notes Ludivina Flores, CASA - 10/18/2016 2:51 PM PDTFormatting of this note might be different f rom the original. Medical Nutrition Note SUBJECTIVE: Pt states that last year in February she weighed 164# then in June she went down to 134#. She has been able to slowly regain some weight and is currently 143. She has an ostomy from her rectal cancer, has no questions on what foods cause gas or odors, states she is well informed about what to eat for her ostomy. She know she needs to eat high prot ein foods. She likes Ensure clear and buys it from [employer] and [employer]. She does have quest ions on how to help prevent nausea. Provided and discussed nausea prevention MNT, high prot ein high calorie MNT and that she may be able to purchase the ensure enlive cheaper through [facility]. She states that is where she got hooked on them. Discussed regular ty pes of Ensure/boost and more cost effective ones that are available over the counter. OBJECTIVE: Diet: high protein high calorie Wt Readings from Last 3 Encounters: 10/18/16 64.91 kg (143 lb 1.6 oz) Ht Readings from Last 1 Encounters: 10/18/16 1.626 m (5' 4") BMI 24.55 Labs: Lab Results Component Value Date ALBUMIN 1.9* 10/18/2016 Estimated needs (wt. 65 kg) 0041-5240 kcals/day 65-78 gm pro/day Medications: reviewed ASSESSMENT/PLAN: Nutrition Diagnosis: Moderate malnutrition related to chronic disease of rectal cancer as evidenced by 12% weight loss in 6 months, inadequate oral intake of less than 50% of her nee ds d/t nausea and disease, and verbalization from the pt.. Interventions: 1. High protein high calorie MNT, use of supplements 2. Anti-nausea MNT Nutrition Goals: 1. Increase oral intake 2. Prevent weight loss Monitor: 1. Nutritional parameters 2. Ability to obtain Ensure Enlive Time spent: 30 mintues Thank you for the referral, Ludivina Flores RDN 10/18/2016 14:52 documented in this encounter Plan of Treatment + + [...]
--- OUTSIDE RECORDS SUMMARY | ~2019-06-11 | XMS | Encounter Summary ---
Demographics + + + | Address | [address] | | | [place] [address] | + + + | Home Phone [...] + | Organization | [facility] | | | and [place] | + + + | Address | Unknown | + + + | Phone | Unavailable | + + + Support + + + + + | Name | Relationship | Address | Phone | + + + + + | Lamar Phillips | REZA | [place] [address] | | + + + + + Care Team Providers + +------+ + | Care Kettle Hand Name | Role | Phone | + +------+ + | Kristian Anderson DO | PCP | | + +------+ + Encounter Details +--------+ + + + + | Date | Type | Department | Care Team | Description | +--------+ + + + + | 01/27/ | Hospital | [facility] | [place], | | | 2017 | Encounter | MED CTR RADIATION | Mike White MD [address] | | | | | ONCOLOGY [address] | [address] [place] | | | | | [place], | [place] [address] | | | | | [place] [address] | [phone] | | | | | [phone] | | | +--------+ + + + [...] Joel Alfaro, - 02/17/2017 11:18 AM [facility] Treatment Note Name: Jenn Parada ID: [id number] Date of Service:02/17/2017 ICD-9 and Description: C20 [...] weeks prior to transfe rring care to [facility] for scheduled exenteration. Approved by: Joel Alfaro D.O. 02/17/2017 11:19:08 AM Page 1 of 2 CSN: [id number] signed by Joel Alfaro DO at 02/17/2017 11:19 AM Florence Cortez MD - 02/10/2017 12:00 AM [facility] Radiation Oncology Weekly On Treatment Note Name: Jenn Parada ID: [id number] Date of Service:02/10/2017 ICD-9 and Description: C20 [...] 8:17:28 AM Page 1 of 3 CSN: [id number] signed by Florence Reese MD at 03/05/2017 8:17 AM Joel Tyson DO - 02/03/2017 12:49 PM [facility] On Treatment Note Name: Jenn Parada ID: [id number] Date of Service:02/03/2017 ICD-9 and Description: C20 [...] 12:50:06 PM Page 1 of 2 CSN: [id number] signed by Joel Alfaro DO at 02/03/2017 12:50 PM Nichole Daigle DO - 01/27/2017 5:13 PM [facility] On Treatment Note Name: Jenn Parada ID: [id number] Date of Service:01/27/2017 ICD-9 and Description: C20 [...] 5:14:07 PM Page 1 of 2 CSN: [id number] signed by Joel Alfaro DO at 01/27/2017 5:14 PM PDTdocumen pat in this encounter Plan of Treatment Not on filedocumented as of this encounter Visit Diagnoses Not on filedocumented in this encounter"
--- OUTSIDE RECORDS SUMMARY | ~2019-06-11 | XMS | Encounter Summary ---
Demographics + + + | Address | [address] | | | [place] [address] | + + + | Home Phone [...] Organization | [facility] | | | and [place] | + + + | Address | Unknown | + + + | Phone | Unavailable | + + + Support + + + + + | Name | Relationship | Address | Phone | + + + + + | Lamar Phillips | REZA | [place] [address] | | + + + + + Care Team Providers + +------+ + | Care Wiring Technician Name | Role | Phone | [...] + + | 02/08/ | Documentati | [facility] | Vu Guillermo, | Psychosocial Support | | 2017 | on | MED CTR MEDICAL | TANK OFFICER | | | | | ONCOLOGY CLINIC [address] | | | | | | [address] | | | | | | [place] [address] | | | | | | [phone] | | | +--------+ + + + [...] treated for rectal cancer. She lives in [place]. Jenn is covered by [employer] of [place]. Jenn is alert and oriented X4 and [...] good coping skills and strong horacio. This Hog Stomach Preparer allowed for expression of feeling and provided supportive counseling and information regarding the emotional aspects of a cancer diagnosis and treatment. Encourage d Jenn to attend community support group and offered literature on patient s diagnosis. This Hog Stomach Preparer and Washroom Attendant are available to provide emotional support an [...]
--- OUTSIDE RECORDS SUMMARY | ~2019-06-11 | XMS | Encounter Summary ---
Demographics + + + | Address | [address] | | | [place] [address] | + + + | Home Phone [...] Team Providers + +------+ + | Care Acid Plant Helper Name | Role | Phone | [...] | | | | REQUEST TO | [place], [place] | [place], [place] | | | | | SURGERY | [address] | [address] | | | | | DEPUTY SHERIFF CHIEF | Phone: | Phone: | | | | | MS | [phone] | [phone] | | | | | LAP,SURG,COL | Fax: | Fax: | | | | | ECTOMY,W/TASNEEM | [phone] | [phone] | | | | | ST MS | | | | | | | LAP,SURG,COL | | | | | | | ECTOMY,W/TASNEEM | | | | | | | ST,W/COLOSTO | | | | | | | MY MS | | | | | | | LAP,MBL | | | | | | | SPLNC FL MS | | | | | | | | | | | | | | LAP,SURG,COL | | | | | | | ECTOMY,W/REM | | | | | | | VL TERM | | | | | | | ILEUM MS | | | | | | | LAP,SURG,COL | | | | | | | ECTOMY,W/END | | | | | | | COLOST & | | | | | | | CLOSUR MS | | | | | | | LAP,ILEO/JEJ | | | | | | | YESIKA-STOMY | | | | | | | MS PART | | | | | | | REMOVAL | | | | | | | COLON W | | | | | | | COLOPROCTOST | | | | | | | LORI MS PART | | | | | | | REMOVAL | | | | | | | COLON W | | | | | | | COLOPROC,COL | | | | | | | OST MS | | | | | | | MOBILIZE | | | | | | | SPLENIC FLEX | | | | | | | MS PART | | | | | | | REMOVAL | | | | | | | COLON W END | | | | | | | COLOSTOMY | | | | | | | MS PART | | | | | | | REMOVAL | | | | | | | COLON W | | | | | | | OSTOMY/MUCOF | | | | | | | IST MS | | | | | | | ILEOSTOMY/JE | | | | | | | JUNOSTOMY,NO | | | | | | | NTUBE MS | | | | | | | REMOVE | | | | | | | VAGINA WALL, | | | | | | | PARTIAL MS | | | | | | | REMOVE | | | | | | | VAGINA | | | | | | | TISSUE/PARTI | | | | | | | AL MS | | | | | | | VAGINECTOMY | | | | | | | PARTIAL | | | | | | | W/NODES MS | | | | | | | PROCTECTOMY, | | | | | | | AP | | | | | | | RESECT+OSTOM | | | | | | | Y MS | | | | | | | PROCTECTOMY, | | | | | | | PARTIAL MS | | | | | | | PROCTECTOMY, | | | | | | | AP | | | | | | | RESEC,PULL-T | | | | | | | HRU MS | | | | | | | PROCTECTOMY, | | | | | | | PART,ILEAL | | | | | | | RESERV MS | | | | | | [...] | Malignant | Marty Toledo MD | [address] | | | | | neoplasm of | [place] | [place] | | | | | rectum | SURGICAL | Suzy [place]ines | | | | | | CLINIC [facility] | [place], [place] | | | | | | [address] | [address] | | | | | | [address] | Phone: | | | | | | [place], | [phone] | | | | | | [place] [address] | Fax: | | | | | | Phone: | [phone] | | | | | | [phone] | | | | | | | Fax: | | | | | | | [phone] | | +--------+--------+ + + + + Encounter Details +--------+---------+ + + + | Date | Type | Department | Care Team | Description | +--------+---------+ + + + | 06/13/ | Office | Digestive Health | Ailyn Wolff MD | Rectal cancer (HCC) | | 2017 | Visit | Center at [facility] [address] | [address] | (Primary Dx); [place] of | | | | [address] | Suzy Hines [place], | rectum (HCC) | | | | Mailcode: [place] | [place] [address] | | | | | [facility] and | [phone] | | | | | [place] [address] | | | | | | [place], [place] | | | | | | [address] | | | | | | [phone] | | | +--------+---------+ + + + [...] 06/13/2017 3:40 PM PSTPATIENT SURGERY INFORMATION [facility] General Surgery Office Toll-free: , request [facility] Surgery Date: 06/30/2017 Procedure: Low anterior resection, possible abdominoperineal resection. Surgeon Name: Dr. Ailyn Wolff MD DIRECTIONS FOR SURGERY DIET You should have clear liquids only for the entire day prior to surgery, no solid food. Kailee r liquids include anything you can see through, like water, fernando zack, lemon-selawik soft drin ks, apple juice, tea, Gatorade/sports [...] have questions please contact the clinic at [phone], if it is after clinic h ours please call the cover operator at [phone] and ask to speak to the Green Surgery Resident dental receptionist. CAUTION! Please call the clinic if you [...] preparation, please contact the surgery office at [phone]. After hours and on weekends this number may refer you to the hospital cover operator ([phone]); please ask to speak to the general surgery resident dental receptionist for Dr Javed. MEDICATIONS You may take [...] Smoking is not allowed on the [facility] campus. If you are a smoker, please [...] anyone by 3:00 PM please call for [id number]. PARKING Parking for patients and visitors is available in the [facility] Parking structure located across from the emergency department. Patient parking is available on level 1 and 3. [address] parking is available on the top level. CHECKING IN FOR SURGERY Go in the main entrance and check in at the Admitting Desk 9th floor of [facility] TRANSPORTATION You will require transportation home on the day of discharge. Pain medications and physical activity restrictions may limit your ability to drive safely. CANCELLING YOUR PROCEDURE Please notify the general surgery office at [phone] as soon as possible should you nee [...] prior to your surgery. PRODUCTS CONTAINING ASPIRIN Katelyn-Monterey, Anacin, Anexsia with Codeine, Andynos, Aspirin, Aspirin suppositories, Ascrip tin, Aspergum, Axotal, B-A-C, Baby Aspirin, Tony, BC Powder, Bexophene, Buffaprin, Bufferin , Buffinol, Cama-Arthritis Strength, Congespirin, Herlong, Coricidin, Damason, Darvon, Dristan, Annetta-Gesic, Digel, Dolprin #3 Tablets, Donatab, Doxaphene, Duragesic, Easprin, Ecotrin, Emag rin Forte, Emiprin, Emprazil, Equagesic, Equazine M, Excedrin, Fiogesic, Fiorgen PH, Fiorice t, Fiorinal, 4-Way Cold Tablet Gemnisyn, Indocin, Liquprin, Lortab ASA, Magnaprin, Marnal, Meprobamate, Midol, Momentum, N orgesic, Piggott, Orphengesic, Pabalate, P-A-C, Percodan, Presalin, Robaxasil, Roxiprin, Brian eto, Salocol SK-65 Compound, Sine-Aid, Sine-Off,, [place], Supac, Talwin Compound, Trigesic, Tolectin , Traiminicin, Vanquish, ZORprin, Zomax PRODUCTS CONTAINING IBUPROFEN Advil, Aleve, Haltran, Medipren, Midol, Motrin, Naproxyn, Nuprin, Rufen OTHER PRODUCTS WHICH MAY PROMOTE BLEEDING Vitamin E, Gingko Biloba, Marine Fatty Acids, Bland-3 Fish Oil Supplements Registration Process for all [...] 07/19/[address] [facility] ED CT abdomen/pelvis with IV [...] anal verge presented at the [facility] Multidisciplinary GI Oncology Conference on 10/07/16 diagnosis: [...] pouch staple line presented at [facility] Multidisciplinary GI Oncology Conference on 03/10/17. Given [...] 05/17/17) close to pelvic sidewall [facility] Multidisciplinary GI Oncology Conference (06/02/17) Recommendations with [...] infection , pneumonia, UTI, recurrence, DVT, PE, [place], stroke, and were discussed, she wished to proceed with the above plan. Chief Complaint: 55 y.o. female with intermittent rectal bleeding since ~2013 and tailbone pain since 07/19/17. History of Present Illness: On 10/05/16, she told me: "intermittent rectal bleeding since ~2013 She had rectal urgency and a lot of rectal bleeding on 07/19/16. She went to the [facility] ED. CT abdomen/pelvis with IV [...] rectal cancer. [facility] the [...] anal verge presented at the [facility] Multidisciplinary GI Oncology Conference on 10/07/16 diagnosis: [...] fractions, 01/10/17-02/17/17. Dr. Alfaro, Radiation Oncology at [facility] in [place]. MRI pelvis (03/02/17) tumor response but circumferential [...] the LLQ tenderness/malodorous drainage." presented at [facility] Multidisciplinary GI Oncology Conference on 03/10/17. Given [...] I again discussed her at the [facility] Multidisciplinary GI Oncology Conference (06/02/17) Recommendations with [...] Stool in her drain. 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 20 minute document review Noelle Clifford RN - 017 3:40 PM PSTNPO after midnight, Miralax/Gatorade bowel prep with antibiotics, prevention of constipation and pain control after surgery, responsible ride home upon discharge from [facility]. Discussed pre-operative plan such as nursing scheduler calling the day before surgery to [...] starting with clears, need for PMC appt (CONSULTING SYSTEMS ENGINEER), post-op appt (3 wk). Pt den ies further questions. I encouraged the pt to call with any questions, concerns, or new symp toms at [phone]. documented in this enco unter Plan of [...] | | | | | | [place] [address] | | | | | | [phone] | | | | | | | [...] + + + + + | [facility] | [address] | [place] [address] | | | SERVICES, CORE | PARK [...] | | | LABORATORY | | | [place] | | | SERVICES, | | | [...] [facility]APIN [facility] | [address] | [place] [address] | | | SERVICES, CORE | SUZY [...]
--- OUTSIDE RECORDS SUMMARY | ~2019-06-11 | XMS | Encounter Summary ---
Demographics + + + | Address | [address] | | | [place] [address] | + + + | Home Phone [...] Team Providers + +------+ + | Care Morning Show Producer Name | Role | Phone | [...] [address] | [address] | Review | | | | [address] | [place], | | | | | Mailcode: [place] | [place] [address] | | | | | for Health and | [phone] | | | | | [facility] [address] | | | | | | [place], [place] | | | | | | [address] | | | | | | [phone] | | | +--------+ + + + [...] | | | | | [place]mita [place], | | | | | | [place] [address] | | | | | | [phone] | | | | | | | | +--------+---------+ + + + documented as of this encounter Visit Diagnoses Not on filedocumented in this encounter"
--- OUTSIDE RECORDS SUMMARY | ~2019-06-11 | XMS | Encounter Summary ---
Demographics + + + | Address | [address] | | | [place] [address] | + + + | Home Phone [...] Team Providers + +------+ + | Care Hosting Engineer Name | Role | Phone | [...] | | | | CONSULT TO | [place], [place] | [address] | | | | | RADIATION | [address] | [address] [place], | | | | | ONCOLOGY | Phone: | [place] | | | | | | [phone] | [address] | | | | | | Fax: | Phone: | | | | | | [phone] | [phone] | | | | | | | Fax: | | | | | | | [phone] | +--------+--------+ + + + + Encounter Details +--------+---------+ + + + | Date | Type | Department | Care Team | Description | +--------+---------+ + + + | 06/14/ | Office | Radiation Oncology | Wade Sherman, | Rectal cancer (HCC) | | 2017 | Visit | at [facility] [address] | [address] | (Primary Dx) | | | | [address] | [address] | | | | | [place] | [place], [place] | | | | | [place], [place] | [address] | | | | | [address] | [phone] | | | | | [phone] | | | +--------+---------+ + + + [...] anal biopsy on 10/27/16 consistent with malignancy. [facility] tumor board consensus was to proceed with total neoadjuvant therapy. She completed 6 cycles of FOLFOX on , and pelvic EBRT to 50.4 Gy on 02/17/17. Followup MRI on 03/02/17 with good tumor response but circumferential margin still threatened. [facility] recommendations to proceed with another [...] 1 Years of education: 12 Occupational History [employer] Social History Main Topics Smoking status: Former Smoker Packs/day: 1.50 Years: 41.00 Quit date: 07/19/2016 Smokeless tobacco: Former User Alcohol use No Drug use: No Sexual activity: Not Currently Other Topics Concern Not on file Social History Narrative No narrative on file Family History: Family History Problem Relation Cancer Mother breast Hypertension Mother Heart Attack Father from [place] at age 52 Diabetes Father Heart Attack [...] IORT to 1 cm depth per the [facility] experience while retracting all small bowel and ureters out of the field (PMID [id number]) Wade Sherman MD CC: A copy of [...] | | | | | [address]mita [address], | | | | | | [place] [address] | | | | | | [phone] | | | | | | | | +--------+---------+ + + + documented as of this encounter Visit Diagnoses + + | Diagnosis | + + | Rectal cancer (HCC) - Primary Malignant neoplasm of rectum | + + documented in this encounter
--- OUTSIDE RECORDS SUMMARY | ~2019-06-11 | XMS | Encounter Summary ---
Demographics + + + | Address | [address] | | | [place] [address] | + + + | Home Phone [...] | Organization | [facility] | | | and [place] | + + + | Address | Unknown | + + + | Phone | Unavailable | + + + Support + + + + + | Name | Relationship | Address | Phone | + + + + + | Lamar Phillips | REZA | [place] [address] | | + + + + + Care Team Providers + +------+ + | Care Accounting System Expert Name | Role | Phone | + [...] Malignant | Joel C, DO | [address] | | | | | neoplasm of | [address] | [place], | | | | | rectum (HCC) | [address] | [place] [address] | | | | | Status | [place], | Phone: | | | | | post | [address] | [phone] | | | | | chemotherapy | Phone: | Fax: | | | | | Procedures | [phone] | [phone] | | | | | CT Chest | Fax: | | | | | | Abdomen | [phone] | | | | | | Pelvis [...] + + | 01/03/ | Hospital | [facility] | Joel Alfaro DO | Malignant neoplasm | | 2017 | Encounter | MED [facility] [address] | [address] | of rectum (HCC) | | | | [place], | [place] | | | | | [place] [address] | [address] | | | | | [phone] | | | +--------+ + + + [...]
--- OUTSIDE RECORDS SUMMARY | ~2019-06-11 | XMS | Encounter Summary ---
Demographics + + + | Address | [address] | | | [place] [address] | + + + | Home Phone [...] Team Providers + +------+ + | Care Tray Packer Name | Role | Phone | [...] ANTERIOR | | 2017 | | [facility] | [address] [facility] | RESECTION, POSTERIOR | | | | Admitting Desk | [address] [address] [place], | VAGINECTOMY, | | | | Located on the | [place] [address] | ILEOSTOMY, POSSIBLE | | | | floor [address] [facility] | [phone] | ABDOMINOPERINEAL | | | | [address] | | RESECTION Path: | | | | [place], [place] | | Stanx2 FSx3 Freshx1 | | | | [address] | | | +--------+---------+ + + + [...] posterior vaginal wall. 5. Placement of a 19-Tajik Albert drain through the right lower quadrant [...] narcotic pain medications, please call the clinic ([phone] ) by 2 pm on for any [...] hours by calling the surgery office at [phone]. After hours, weekends and holidays, you may call the hospital flatlock sewing machine operator at [phone] and have the contract preparer Green Team for general surgery paged. Constipation: [...] your instructions. Acetaminophen (Tylenol): You may use lnvi-sns-jglphtn (OTC) acetaminophen for milder pain. Do not [...] medications with Hydrocodone such as Vicodin or [place]. It is important to keep track of [...] Center 07/27/2017 3:40 PM Ailyn Wolff [facility] at [facility] 6th Floor [phone] [facility] Schedule the following appointment(s) [...] to discharge) Natalie Poon MD Surgery, PGY1 [facility] Associated attestation - Ailyn Wolff [...] through Care Everywhere.Bowel Resection : Open: Post-op (Yi)Post-op Infection (Yi)Ureteral Stent Placement: Post-op ([place])documented in this encounter Medications at Time of [...] | | 18 | | | | [id number], Skin prep: | | | | | | | 3M 3344 (30/mo), Adh | | | | | | | Rem HO 7760 | | | | | | | (1box/mo), Rings: HO | | | | | | | 8805 (10/mo), | | | | | | | [place]odor[place] [address] | | | | | | | (60/mo), Pwdr: CT | | | | | | | 144068 (1oz/mo), | | | | | | | Belt: Lrg (2/mo) | | | | | | | and Irrigation CO | | | | | | | 184700, Sleeve CO | | | | | | | 694947 | | | | | + + [...] Physician: Ailyn Wolff MD Patient: PAULETTE BYRNES [id number] 24H events/Subjective: Epidural removed yesterday, pain controlled. [...] of drainage, ostomy pink, appliance with stool. [place] in place at tractotomy site. Extremities: WWP, [...] Tim Davila MD General Surgery, PGY-1 Pager: [phone] Associated attestation - Ailyn Wolff MD - [...] BLOCK PROGRESS NOTE 07/04/2017 Author: Andree English TAKER OFF HEMP FIBER Epidural day # 4 POD# 4. Status [...] Andree English NP Adult Pain Service Pager [phone] Team Pager [phone] Tim See MD - 5:31 AM PST Green Surgery Progress Note Hospital Day: 4 Attending Physician: Ailyn Wolff MD Patient: PAULETTE BYRNES [id number] 24H events/Subjective: Epidural still functioning, removed later [...] Tim Davila MD General Surgery, PGY-1 Pager: [phone] Associated attestation - Ailyn Wolff MD - [...] Byrnes's pain include cannot name aggravators. Ms. Byrens is satisfied wi th current level of [...] 50 mL/hr intravenous CONTINUOUS 50 mL/hr (07/03/17 4215) ropivacaine 0.1 %-HYDROmorphone 10 mcg/mL epidural infusion [...] full diet Alta Woods MD Team Pager [phone] signed by Alta Woods MD at 07/03/2017 [...] this patient. Alta Woods MD Team Pager [phone] signed by Alta Woods MD at 07/02/2017 [...] reach [place] [phone] with questions. Dorene Carter () MSN, ACNP- Nurse Practitioner [facility] [address] [place] [address] Vicki Erwin M D - 07/01/2017 6:04 AM PSTAPS brief note: Evaluated epidural at bedside. Catheter intact h/e filter broken resulting in leak. Replace d filtered and resumed epidural infusion. Vicki Emanuel MD APS pg [phone] signed by Vicki Emanuel MD at 07/10/2017 3:36 PM PSTHasl Natalie mckeon MD - 07/01/2017 5:36 AM PST Green Surgery Progress Note Hospital Day: 1 Attending Physician: Ailyn Wolff MD Patient: PAULETTE BYRNES [id number] 24H events/Subjective: Pt comfortable in bed this [...] - 07/01/1759 07/01/17699 - 07/02/17 0659 Shift 1881-6155 0813-9905 7456-3363 24 Hour Total 9932-7351 4252-3685 9385-8644 24 Hour Tot al I N T [...] Poon MD PGY-1 Department of General Surgery [phone] Ivette Shannon MD - 06/30/2017 11:02 PM [...] Jade MD Otolaryngology-Head & Neck Surgery PGY-1 [id number] documented in this encount er Plan of Treatment +--------+---------+ + + + | Date | Type | Specialty | Care Team | Description | +--------+---------+ + + + | 06/18/ | Office | Surgery | Ailyn Woflf MD | | | 2019 | Visit | | [address] | | | | | | [place], | | | | | | [place] [address] | | | | | | [phone] | | | | | | | [...] CHG), | e | 10:19 AM | ([facility]LY [facility]) | procedure are in [...] PLACEMENT | ve | 8:03 AM | ([facility]LY [facility]) | | | | [...] MARCIALAM | [address] | [place], [place] | | | [facility] | [address] | [address] | | | TESTS | | | [...] MARQUAM | [address] | [place], [place] | | | [facility] | [address] | [address] | | | TESTS | | | [...] BALDWIN | [address] | [place], [place] | | | [facility] | [address] | [address] | | | TESTS | | | [...] MARCIALAM | [address] | [place], [place] | | | [facility] | [address] | [address] | | | TESTS | | | [...] MARQUAM | [address] | [place], [place] | | | [facility] | [address] | [address] | | | TESTS | | | [...] BALDWIN | [address] | [place], [place] | | | [facility] | [address] | [address] | | | TESTS | | | [...] MARQUAM | [address] | [place], [place] | | | [facility] | [address] | [address] | | | TESTS | | | [...] - MARQUAM | [address] | [place], [place] | | | [facility] | [address] | [address] | | | TESTS | | | [...] (H) | 70 - 99 mg/dL | [facility] - | | | [...] + + + | CHAPIN BALDWIN | [address] | [place], [place] | | | [facility] | [address] | [address] | | | TESTS | | | [...] MARQUAM | [address] | [place], [place] | | | [facility] OF [facility] | [address] | [address] | | | TESTS | | | [...] MARCIALAM | [address] | [place], [place] | | | [facility] | [address] | [address] | | | TESTS | | | [...] (L) | 70 - 99 mg/dL | [facility] - | | | [...] BALDWIN | [address] | [place], [place] | | | [facility] | [address] | [address] | | | TESTS | | | [...] NICOLASA | [address] | [place], [place] | | | [facility] [place] | [address] | [address] | | | TESTS | | | [...] - NICOLASA | [address] | [place], [place] | | | [facility] | [facility] | [address] | | | TESTS | | | [...] BALDWIN | [address] | [place], [place] | | | [facility] OF [place] | [facility] | [address] | | | TESTS | | | [...] - MARQUAM | [address] | [place], [place] | | | [facility] | [address] | [address] | | | TESTS | | | [...] + + + | CHAPIN BALDWIN | [address] | [place], [place] | | | [facility] | [address] | [address] | | | TESTS | | | [...] MARQUAM | [address] | [place], [place] | | | [facility] | [facility] | [address] | | | TESTS | | | [...] MARQUAM | [address] | [place], [place] | | | [facility] | [address] | [address] | | | TESTS | | | [...] MARCIALAM | [address] | [place], [place] | | | [facility] | [address] | [address] | | | TESTS | | | [...] BALDWIN | [address] | [place], [place] | | | [facility] | [address] | [address] | | | TESTS | | | [...] MARQUAM | [address] | [place], [place] | | | [facility] [place] | [address] | [address] | | | TESTS | | | [...] NICOLASA | [address] | [place], [place] | | | [facility] | [facility] | [address] | | | TESTS | | | [...] (H) | 70 - 99 mg/dL | [facility] - | | | [...] BALDWIN | [address] | [place], [place] | | | [facility] | [facility] | [address] | | | TESTS | | | [...] MARQUAM | [address] | [place], [place] | | | [facility] OF [place] | [address] | [address] | | | TESTS | | | [...] | + + + + + | [employer] | [address] | [place] [address] | | | SERVICES, CORE | SUZY [...] [facility] | [address] | [place] [address] | | | SERVICES, CORE | PARK [...] | + + + + + | [facility] | [address] | [place] [address] | | | SERVICES, CORE | SUZY [...] | + + + + + | [facility] | [address] | [place] [address] | | | SERVICES, CORE | SUZY [...] (H) | 70 - 99 mg/dL | RISU - | | | GLUCOSE, | | [...] NICOLASA | [address] | [place], [place] | | | [facility] [place] | [facility] | [address] | | | TESTS | | | | + + + + + CAPILLARY BLOOD GLUCOSE (NO CHG), POC (07/01/2017 12:06 AM [facility]) + +---------+ + + + | [...] MARCIALAM | [address] | [place], [place] | | | [facility] | [facility] | [address] | | | TESTS | | | [...] (H) | 70 - 99 mg/dL | [facility] - | | | [...] NICOLASA | [address] | [place], [place] | | | [facility] | [address] | [address] | | | TESTS | | | [...] | [facility] - N[facility]OL[facility] | [address] | [place], [place] | | | [facility] OF [place] | [facility] | [address] | | | TESTS | | | [...] MARCIALAM | [address] | [place], [place] | | | [facility] | [facility] | [address] | | | TESTS | | | [...] + + | [facility] | [address] | [place] [address] | | | SERVICES, CORE | [address] | | | + + + + + OPERATION RECORD (06/30/2017 7:26 PM PST) + + | Procedure Note | + + | Ailyn Wolff MD - 06/30/2017 7:26 PM PST Date of Service: 06/30/2017 Attending | | Surgeon: Ailyn Wolff MD Lead Manufacturing Technician(s): Sae Slater MD | | Donna [...] resection with primary anastomosis.8. Placement of a 19-Tajik Albert drain through the | | right lower quadrant wall into the presacral space.9. 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 Placement of anthony drain into former rectocutaneous | | [id number]. Cystoscopy and bilateral ureteral stent placement with Dr. Cole Sánchze, | | Dr. Delilah Chino. and Dr. [...] anal verge. I presented her at the [facility] Multidisciplinary GI Oncology | [...] fistula tract. We performed a small bowel fjid-wt-mlcw | | stapled anastomosis. Note, the abscess [...] closed the mesentery with a 3-0 Polysorb aqulfa-bk-wghdx suture. The anastomosis | | was widely [...] the external sphincter with interrupted 0 Polysorb fjpged-ct-yfkre sutures. We closed | | the deep [...] #1 Maxon sutures x2. We placed a 19-Tajik Albert | | drain through the right [...] | | 06/30/2017 17:03:37DT: 06/30/2017 19:26:50Job #: [id number] | | | | /[id number] | + + CAPILLARY BLOOD GLUCOSE (NO [...] BALDWIN | [address] | [place], [place] | | | [facility] OF [place] | [address] | [address] | | | TESTS | | | [...] MARQUAM | [address] | [place], [place] | | | [facility] | [address] | [address] | | | TESTS | | | [...] + + + | CHAPIN BALDWIN | [address] | [place], [place] | | | [facility] | [address] | [address] | | | TESTS | | | | + + + + + PROCEDURE NOTE (06/30/2017 5:14 PM PST) + + | Procedure Note | + + | Sae Slater MD - 06/30/2017 5:14 PM PST BRIEF OPERATIVE NOTEProcedure Date: | | 06/30/2017Author: Sae Slater [facility] Physician: Dr. Ailyn Lowistants: Sae | | MD Nohemy, [id number] Gonzalez MD, [id number] Diagnosis: rectal cancerPostoperative | | Diagnosis: sameProcedure [...] | | Abdominal precautionsInitial surgical contact: Green mechanical engineering intern. Sae Slater MDGeneral | | Surgery, [id number] | |2. En bloc resection of rectum, [...] | | | |Initial surgical contact: Green mechanical engineering intern. | | | | | |Sae Slater MD | |General Surgery, R5 | |Pager [phone] | + + PROCEDURE NOTE (06/30/2017 2:44 [...] c/o | | flank pain). Delilah ValePasuri [id number]-5Cfxeknpbfd of Urology | | | |Indications: 56 [...] | | | |Delilah Vale | |Pager [phone] | |PGY-5 | |Department of Urology | [...] BAL[place]IN | [address] | [place], [place] | | | [facility] | [address] | [address] | | | TESTS | | | [...] placementSURGEON: Juan Luis | | MD Princess VEHICLE MODIFICATION TECHNICIAN: Natalie Poon MDANESTHESIA: General. ESTIMATED BLOOD LOSS: [...] usual | | sterile fashion. A 21 puerto rican cystoscope was inserted into the urethra atraumatically. [...] Cleve PGY - 1Department of Urology PGR [id number] | |The patient was brought to the [...] the usual sterile | |fashion. A 21 puerto rican cystoscope was inserted into the urethra atraumatically. [...] was then turned back over to the [facility] surgical team for their portion of the procedure. Dr. Sánchez was present and directed t he entirety of the case. | | | |The attending of record is Juan Luis Sánchez | | | | | |Natalie Poon MD | |PGY - 1 | |Department of Urology | |PGR 17167 | + + ABG-FULL ABL, POC (06/30/2017 [...] MARCIALAM | [address] | [place], [place] | | | [facility] [place] | [facility] | [address] | | | TESTS | | | [...] (H) | 70 - 99 mg/dL | [facility] - | | | [...] NICOLASA | [address] | [place], [place] | | | [facility] | [address] | [address] | | | TESTS | | | [...] + + | Performing | Address | City/State/[facility] | Phone Number | | Organization | | | | + + + + + | [facility] | [address] | [place], [place] | | | [facility] [place] | [address] | [address] | | | TESTS | | | [...] | | | | | | (pT): uD4Hjtbxgga Lymph | | | | | | Nodes (pN): | | | | | | aN8Ctbpqs of regional | | | | | [...] | | | | | | record #[id number]. | | | | | | A: [...] | | | | | | diameter. Decator Operator | | | | | | [...] identified. | | | | | | Decator Operator sections | | | | | [...] additional | | | | | | printing sales representative sections | | | | [...] adipose | | | | | | hseesfE89, anal | | | | | | [...] | | | | | remnantF1 and W0uxsmp | | | | | | bowel [...] | + + + + + | [facility] | [address] | [place] [address] | | | PATHOLOGY | [address] [...]
--- OUTSIDE RECORDS SUMMARY | ~2019-06-11 | XMS | Encounter Summary ---
Demographics + + + | Address | [address] | | | [place] [address] | + + + | Home Phone [...] Organization | [facility] | | | and [place] | + + + | Address | Unknown | + + + | Phone | Unavailable | + + + Support + + + + + | Name | Relationship | Address | Phone | + + + + + | Lamar Phillips | REZA | [place] [address] | | + + + + + Care Team Providers + +------+ + | Care Behavioral Science Chair Name | Role | Phone | [...] neoplasm of | Mike C, | [address] | | | | | rectum (HCC) | MD [address] | [place], | | | | | Procedures | [address] | [place] [address] | | | | | [place] | [place], | Phone: | | | | | [place] | [place] [address] | [phone] | | | | | INJECTION, | Phone: | Fax: | | | | | [address] [place] | [phone] | [phone] | | | | | NORMAL | Fax: | | | | | | SALINE | [phone] | | | | | | SOLUTION | | | | | | | INFUS, 500 | | | | | | | [address] [place] | | | | | | | NORMAL | | | | | | | SALINE | | | | | | | SOLUTION | | | | | | | INFUS, 250 | | | | | | | ML [place] | | | | | | | STERILE | | | | | | | WATER/SALINE | | | | | | | , 10 ML [place] | | | | | | | CHEMOTHER, | | | | | | | IV PUSH,EA | | | | | | | ADD DRUG TN | | | | | | | CHEMOTHER, | | | | | | | IV INFUSION, | | | | | | | 1 HR TN | | | | | | | CHEMOTHER, | | | | | | | IV INFUSION, | | | | | | | EA HR TN | | | | | | | CHEMOTHER,NO | | | | | | | N-HORMONE | | | | | | | ANTI-NEOPL, | | | | | | | SUB-Q/IM TN | | | | | | | CHEMOTHER | | | | | | | HORMON | | | | | | | ANTINEOPL | | | | | | | SUB-Q/IM TN | | | | | | | ONDANSETRON | | | | | | | HCL | | | | | | | INJECTION, 1 | | | | | | | MG TN | | | | | | | DEXAMETHASON | | | | | | | E SODIUM | | | | | | | PHOS, 1 MG | | | | | | | TN LORAZEPAM | | | | | | | INJECTION, | | | | | | | 2 MG TN | | | | | | | OXALIPLATIN, | | | | | | | .5 MG TN | | | | | | | LEUCOVORIN | | | | | | | CALCIUM | | | | | | | INJECTION, | | | | | | | 50 MG TN | | | | | | | DIPHENHYDRAM | | | | | | | INE HCL | | | | | | | INJECTIO, 50 | | | | | | | MG TN | | | | | | | METHYLPREDNI | | | | | | | SOLONE | | | | | | | INJECTION, | | | | | | | 125 MG TN | | | | | | | ADRENALIN | | | | | | | EPINEPHRINE | | | | | | | INJECT, .1 | | | | | | | MG TN | | | | | | | ALBUTEROL | | | | | | | COMP CON, 1 | | | | | | | MG TN | | | | | | | ALBUTEROL | | | | | | | NON-COMP | | | | | | | CON, 1 MG | | | | | | | TN | | | | | | | INJECTION, | | | | | | | FAMOTIDINE, | | | | | | | 20 MG | | | +--------+--------+ + + + + Encounter Details +--------+ + + + + | Date | Type | Department | Care Team | Description | +--------+ + + + + | 04/04/ | Hospital | [facility] | Janel, | Rectal cancer (HCC) | | 2017 | Encounter | MED CTR CHEMO | Mike White MD [address] | | | | | ED[place] [address] | [address] [place] | | | | | [place], | [place] [address] | | | | | [place] [address] | [phone] | | | | | [phone] | | | +--------+ + + + [...] + | [facility] | [address] | [place] | [phone] | | [facility] | | [address] | | | - LABORATORY | | [...] | | | | mmol/L | [facility] | | | | [...] mL/min/1.73m2 | Jame DONALD | | | AUSTRIAN | RATE,ESTIMATED | | MEDICAL | | | | mL/min/1.86v9Qwzo than | | CENTER - | | [...] | 8.4 | 8.3 - 10.5 | [facility] | | | | | mg/dL | [...] [address] | [place] | [phone] | | [facility] | | [address] | | | - LABORATORY | | [...] [address] | [place] | [phone] | | [facility] | | [address] | | | - LABORATORY | | [...] + | [facility] | [address] | [place], [place] | [phone] | | [facility] | | [address] | | | - LABORATORY | | [...]
--- OUTSIDE RECORDS SUMMARY | ~2019-06-11 | XMS | Encounter Summary ---
Demographics + + + | Address | [address] | | | [place] [address] | + + + | Home Phone [...] | Organization | [facility] | | | and [place] | + + + | Address | Unknown | + + + | Phone | Unavailable | + + + Support + + + + + | Name | Relationship | Address | Phone | + + + + + | Lamar Phillips | REZA | [place] [address] | | + + + + + Care Team Providers + +------+ + | Care Internal Combustion Engine Inspector Name | Role | Phone | [...] + + | 04/04/ | Hospital | [facility] | [facility], | Rectal cancer (HCC) | | 2017 | Encounter | MED CTR MEDICAL | Sirena White MD [address] | | | | | ONCOLOGY CLINIC [address] | [facility] | | | | | [address] [facility] | [place] [address] | | | | | [place] [address] | [phone] | | | | | [phone] | | | +--------+ + + + [...] nt from the original. Hematology/Oncology Progress Note [facility] [place] Pt. Name/Age/: Paulette Byrnes 56 y.o. 1960 Med. Record Number: [id number] Date of admission: 04/04/2017 The patient's primary care provider is Kristian Anderson DO. Identifying Statement: Paulette Byrnes is a 56 y.o. female from [address] [place] [address] with Locally Advanced Rectal Cancer. The patient [...] cm within the rectum. Biopsy specimen number [id number] evaluated by Dr. Felipe Nixon of [facility] was notable for a tubular adenoma without high-grade dysplasia or overt carcinoma. This proced ure also included a full colonoscopy through the ostomy were 2 additional polyps were remove d, a tubular adenoma at 35 cm and a hyperplastic polyp at [address] C/A/P at [facility] in [place], [place] demonstrated no evidence of metastatic disease. 4. On September 22, 2016 Dr. Thacker placed in internal jugular Port-A-Cath without complications. 5. MRI of pelvis performed on October 05, 2016 at [facility]: Rectal mass 7.7 cm x 6.2 cm x 9.6 cm in length located within 3 cm of the anal sphincter and 6.4 cm from the anal verge with radi ographic extension though multiple areas of the bowel wall. 6. CT abdomen/pelvis also at [facility] October 05, 2016; large almost completely circumferential r ectosigmoid mass better delineated on the corresponding MRI with adjacent probable abscess. No distant metastases identified. 7. On October 14, 2016 Paulette was evaluated by Dr. Ailyn Wolff and Dr. Shea Mcneill of the [facility] where her case was presented to their tumor board. Clinical exa phillip is notable for an overt rectal carcinoma invading into the vagina. 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 Concerns raised by the [facility] Tumor Board were that the prior [...] as well as mutation analysis." Pathological Specimen #[id number] ([facility]). Tubulovillous adenoma with high grade dysplasia [...] mg/m/day. 14. Multidisciplinary Care Team Conference at [facility] March 10, 2017; "Given borderline resec [...] cite the reference above and credit the [facility] [employer], Sirena Richards M.D., Group [...] this chart may have been created with [employer] voice recognition software. Occasi onal wrong-word or [...]
--- OUTSIDE RECORDS SUMMARY | ~2019-06-11 | XMS | Encounter Summary ---
Demographics + + + | Address | [address] | | | [place] [address] | + + + | Home Phone [...] Team Providers + +------+ + | Care Making Line Worker Name | Role | Phone | [...] | | | | [facility] | [place], [place] | | | | | [place] [address] | [address] | | | | | [place], [place] | | | | | | [address] | | | | | | [phone] | | | +--------+ + + + [...] | | 18 | | | | [id number], Skin prep: | | | | | | | 3M 3344 (30/mo), Adh | | | | | | | Rem HO 7760 | | | | | | | (1box/mo), Rings: HO | | | | | | | [phone] (10/mo), | | | | | | | Deodorant: HO 84977 | | | | | | | (60/mo), Pwdr: CT | | | | | | | [phone] (1oz/mo), | | | | | | | Belt: Lrg (2/mo) | | | | | | | and Irrigation CO | | | | | | | [id number], Sleeve CO | | | | | | | [phone] | | | | | + + [...] | | | | | Amita Hines [place], | | | | | | [place] [address] | | | | | | [phone] | | | | | | | | +--------+---------+ + + + documented as of this encounter Visit Diagnoses Not on filedocumented in this encounter"
--- OUTSIDE RECORDS SUMMARY | ~2019-06-11 | XMS | Encounter Summary ---
Demographics + + + | Address | [address] | | | [place] [address] | + + + | Home Phone [...] + | Organization | [facility] | | | and [place] | + + + | Address | Unknown | + + + | Phone | Unavailable | + + + Support + + + + + | Name | Relationship | Address | Phone | + + + + + | Lamar Phillips | REZA | [place] [address] | | + + + + + Care Team Providers + +------+ + | Care Instructor Modeling Name | Role | Phone | + [...] W | | | | | | [place], | | | | | | [place] [address] | | | | | | [phone] | | | +--------+ + + + [...] Nevarez OT - 01/19/2017 11:[address] [facility] OP [address] [place] [address] Oncology Rehab Screening Date: 01/19/2017 Patient Information [...] but remains functional. 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 She has just recently reduced her hours [...]
--- OUTSIDE RECORDS SUMMARY | ~2019-06-11 | XMS | Encounter Summary ---
Demographics + + + | Address | [address] | | | [place] [address] | + + + | Home Phone [...] Organization | [facility] | | | and [place] | + + + | Address | Unknown | + + + | Phone | Unavailable | + + + Support + + + + + | Name | Relationship | Address | Phone | + + + + + | Lamar Phillips | REZA | [place] [address] | | + + + + + Care Team Providers + +------+ + | Care Cashier Ticket Selling Name | Role | Phone | + [...] Rectal | Joel White DO | [address] [place] | | | | | cancer (HCC) | [address] | [place], | | | | | Procedures | [address] | [place] [address] | | | | | CT | [place], | Phone: | | | | | Treatment | [place] [address] | [phone] | | | | | Plan Complex | Phone: | Fax: | | | | | CT TX PLAN | [phone] | [phone] | | | | | | Fax: | | | | | | | [phone] | | +--------+--------+ + + + + [...] [place] | | | | | [place], | [address] | | | | | [place] [address] | | | | | | [phone] | | | +--------+ + + + [...]
--- OUTSIDE RECORDS SUMMARY | ~2019-06-11 | XMS | Encounter Summary ---
Demographics + + + | Address | [address] | | | [place] [address] | + + + | Home Phone [...] | Organization | [facility] | | | and [place] | + + + | Address | Unknown | + + + | Phone | Unavailable | + + + Support + + + + + | Name | Relationship | Address | Phone | + + + + + | Lamar Phillips | REZA | [place] [address] | | + + + + + Care Team Providers + +------+ + | Care Boarding Mother Name | Role | Phone | + [...] W | | | | | | [place], | | | | | | [place] [address] | | | | | | [phone] | | | +--------+ + + + [...]
--- OUTSIDE RECORDS SUMMARY | ~2019-06-11 | XMS | Encounter Summary ---
Demographics + + + | Address | [address] | | | [place] [address] | + + + | Home Phone [...] Providers + +------+ + | Care Fruit Culler Name | Role | Phone | + [...] | | | | Epic Dept | [address] | | | | | | | [address] | | | | | | | [place] | | | | | | | [place], [place] | | | | | | | [address] | | | | | | | Phone: | | | | | | | [phone] | | | | | | | Fax: | | | | | | | [phone] | +--------+--------+ + + + + Encounter Details +--------+---------+ + + + | Date | Type | Department | Care Team | Description | +--------+---------+ + + + | 11/21/ | Office | Digestive Health | Ailyn Wolff MD | CA of rectum (HCC) | | 2018 | Visit | Center at [facility] [address] | [address] | (Primary Dx) | | | | [address] | [place], | | | | | Mailcode: [place] | [place] [address] | | | | | for Health and | [phone] | | | | | Healing, Building [address] | | | | | | [place], [place] | | | | | | [address] | | | | | | [phone] | | | +--------+---------+ + + + [...] 07/19/16 went [facility] ED CT abdomen/pelvis with IV contrast [...] (10/05/16) no liver metastases rigid proctoscopy by ny (10/05/16) 6 cm from anal verge presented at the [facility] Multidisciplinary GI Oncology Conference on 10/07/16 [...] to Mendoza pouch staple line presented at [facility] Multidisciplinary GI Oncology Conference on 03/10/17. [...] MRI ([facility], 05/17/17) close to pelvic sidewall [facility] Multidisciplinary GI Oncology Conference (06/02/17) Recommendations [...] with primary anastomosis, placement of a 19-Tongan Ablert drain through the right lower quadrant wall [...] Return/Re-evaluation patient, I spent 13 minutes of bxdr-nv-bmsl time, of which m ore than half the time was spent in counseling. 10 minute document review do cumented in this encounter Plan of Treatment +--------+---------+ + + + | Date | Type | Specialty | Care Team | Description | +--------+---------+ + + + | 06/18/ | Office | Surgery | Ailyn Wolff MD | | | 2018 | Visit | | [address] | | | | | | [place], | | | | | | [place] [address] | | | | | | [phone] | | | | | | | | +--------+---------+ + + + documented as of this encounter Visit Diagnoses + + | Diagnosis | + + | 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
--- OUTSIDE RECORDS SUMMARY | ~2019-06-11 | XMS | Encounter Summary ---
Demographics + + + | Address | [address] | | | [place] [address] | + + + | Home Phone [...] Team Providers + +------+ + | Care Firmware Software Verification Engineer Name | Role | Phone | [...] | | | | [facility] | [place], [place] | | | | | [place] [address] | [address] | | | | | [place], [place] | | | | | | [address] | | | | | | [phone] | | | +--------+ + + + [...] | | 18 | | | | [id number], Skin prep: | | | | | | | 3M 3344 (30/mo), Adh | | | | | | | Rem HO 7760 | | | | | | | (1box/mo), Rings: HO | | | | | | | 8805 (10/mo), | | | | | | | [place]odor[place] [address] | | | | | | | (60/mo), Pwdr: CT | | | | | | | [id number] (1oz/mo), | | | | | | | Belt: Lrg (2/mo) | | | | | | | and Irrigation [place] | | | | | | | [id number], [place] | | | | | | | [id number] | | | | | + + [...] | | | | | [place], | | | | | | [place] [address] | | | | | | [phone] | | | | | | | | +--------+---------+ + + + documented as of this encounter Visit Diagnoses Not on filedocumented in this encounter"
--- OUTSIDE RECORDS SUMMARY | ~2019-06-11 | XMS | Encounter Summary ---
Demographics + + + | Address | [address] | | | [place] [address] | + + + | Home Phone [...] | Organization | [facility] | | | and [place] | + + + | Address | Unknown | + + + | Phone | Unavailable | + + + Support + + + + + | Name | Relationship | Address | Phone | + + + + + | Lamar Phillips | REZA | [place] [address] | | + + + + + Care Team Providers + +------+ + | Care Security Program Manager Name | Role | Phone [...] neoplasm of | Mike C, | [address] [place] | | | | | rectum (HCC) | MD [address] | [place], | | | | | Procedures | [address] | [place] [address] | | | | | [place] | [place], | Phone: | | | | | [place] | [place] [address] | [phone] | | | | | INJECTION, | Phone: | Fax: | | | | | [address] [place] | [phone] | [phone] | | | | | NORMAL | Fax: | | | | | | SALINE | [phone] | | | | | | SOLUTION | | | | | | | INFUS, 500 | | | | | | | ML LA | | | | | | | NORMAL | | | | | | | SALINE | | | | | | | SOLUTION | | | | | | | INFUS, 250 | | | | | | | ML LA | | | | | | | STERILE | | | | | | | WATER/SALINE | | | | | | | , 10 ML LA | | | | | | | CHEMOTHER, | | | | | | | IV PUSH,EA | | | | | | | ADD DRUG LA | | | | | | | CHEMOTHER, | | | | | | | IV INFUSION, | | | | | | | 1 HR LA | | | | | | | CHEMOTHER, | | | | | | | IV INFUSION, | | | | | | | EA HR LA | | | | | | | CHEMOTHER,NO | | | | | | | N-HORMONE | | | | | | | ANTI-NEOPL, | | | | | | | SUB-Q/IM LA | | | | | | | CHEMOTHER | | | | | | | HORMON | | | | | | | ANTINEOPL | | | | | | | SUB-Q/IM LA | | | | | | | ONDANSETRON | | | | | | | HCL | | | | | | | INJECTION, 1 | | | | | | | MG LA | | | | | | | DEXAMETHASON | | | | | | | E SODIUM | | | | | | | PHOS, 1 MG | | | | | | | LA LORAZEPAM | | | | | | | INJECTION, | | | | | | | 2 MG LA | | | | | | | OXALIPLATIN, | | | | | | | .5 MG LA | | | | | | | LEUCOVORIN | | | | | | | CALCIUM | | | | | | | INJECTION, | | | | | | | 50 MG LA | | | | | | | DIPHENHYDRAM | | | | | | | INE HCL | | | | | | | INJECTIO, 50 | | | | | | | MG LA | | | | | | | METHYLPREDNI | | | | | | | SOLONE | | | | | | | INJECTION, | | | | | | | 125 MG LA | | | | | | | ADRENALIN | | | | | | | EPINEPHRINE | | | | | | | INJECT, .1 | | | | | | | MG LA | | | | | | | ALBUTEROL | | | | | | | COMP CON, 1 | | | | | | | MG LA | | | | | | | ALBUTEROL | | | | | | | NON-COMP | | | | | | | CON, 1 MG | | | | | | | LA | | | | | | | INJECTION, | | | | | | | FAMOTIDINE, | | | | | | | 20 MG | | | +--------+--------+ + + + + Encounter Details +--------+ + + + + | Date | Type | Department | Care Team | Description | +--------+ + + + + | 05/02/ | Hospital | [facility] | Janel, | Rectal cancer (HCC) | | 2017 | Encounter | MED CTR CHEMO | Mike White MD [address] | | | | | [place] | [address] [place] | | | | | [place], | [place] [address] | | | | | [place] [address] | [phone] | | | | | [phone] | | | +--------+ + + + [...] + | [facility] | [address] | [place] | [phone] | | [facility] | | [address] | | | - LABORATORY | | [...] mL/min/1.73m2 | Jame DONALD | | | GREEK | RATE,ESTIMATED | | MEDICAL | | | | mL/min/1.69n6Xbzj than | | CENTER - | | [...] | 9.1 | 8.3 - 10.5 | [facility] | | | | | mg/dL | [...] + | [facility] | [address] | [place] | [phone] | | [facility] | | [address] | | | - LABORATORY | | [...] | | | | ng/mL | [facility] | | | | | | [...] [address] | [place] | [phone] | | [facility] | | [address] | | | - LABORATORY | | [...] | [address] | [place] | [phone] | | [facility] | | [address] | | | - LABORATORY | | [...]
--- OUTSIDE RECORDS SUMMARY | ~2019-06-11 | XMS | Encounter Summary ---
Demographics + + + | Address | [address] | | | [place] [address] | + + + | Home Phone [...] Team Providers + +------+ + | Care Radiation Therapy Technician Name | Role | Phone | [...] Outside Records | | 2017 | | [place] at [facility] [address] | [address] | Received (UA | | | | [address] | [place], | 07/14/2017) | | | | Mailcode: [place] | [place] [address] | | | | | for Health and | [phone] | | | | | [facility] [address] | | | | | | [place], [place] | | | | | | [address] | | | | | | [phone] | | | +--------+ + + + [...] | | | | | | [place] [address] | | | | | | [phone] | | | | | | | | +--------+---------+ + + + documented as of this encounter Visit Diagnoses Not on filedocumented in this encounter"
--- OUTSIDE RECORDS SUMMARY | ~2019-06-11 | XMS | Encounter Summary ---
Demographics + + + | Address | [address] | | | [place] [address] | + + + | Home Phone | | + + + | Preferred Language | Unknown | + + + | Marital Status | | + + + | Jain Affiliation | Unknown | + + + | Race | Unknown | + + + | Ethnic Group | Unknown | + + + Author + + + | Author | [facility] | | | and [place] | + + + | Organization | [facility] | | | and [place] | + + + | Address | Unknown | + + + | Phone | Unavailable | + + + Support + + + + + | Name | Relationship | Address | Phone | + + + + + | Lamar Phillips | REZA | [place] [address] | | + + + + + Care Team Providers + +------+ + | Care Electrical Panel Builder Name | Role | Phone | [...] neoplasm of | Mike C, | [address] [place] | | | | | rectum (HCC) | MD [address] | [place], | | | | | Procedures | [address] | [place] [address] | | | | | [place] | [place], | Phone: | | | | | [place] | [place] [address] | [phone] | | | | | INJECTION, | Phone: | Fax: | | | | | [address] [place] | [phone] | [phone] | | | | | ONDANSETRON | Fax: | | | | | | HCL | [phone] | | | | | | INJECTION, 1 | | | | | | | MG CO | | | | | | | DEXAMETHASON | | | | | | | E SODIUM | | | | | | | PHOS, 1 MG | | | | | | | CO | | | | | | | FOSAPREPITAN | | | | | | | T INJECTION, | | | | | | | 1 MG CO | | | | | | | LORAZEPAM | | | | | | | INJECTION, 2 | | | | | | | MG CO | | | | | | | OXALIPLATIN, | | | | | | | .5 MG CO | | | | | | | LEUCOVORIN | | | | | | | CALCIUM | | | | | | | INJECTION, | | | | | | | 50 MG CO | | | | | | | DIPHENHYDRAM | | | | | | | INE HCL | | | | | | | INJECTIO, 50 | | | | | | | MG CO | | | | | | | METHYLPREDNI | | | | | | | SOLONE | | | | | | | INJECTION, | | | | | | | 125 MG CO | | | | | | | ALBUTEROL | | | | | | | COMP CON, 1 | | | | | | | MG CO | | | | | | | ALBUTEROL | | | | | | | NON-COMP | | | | | | | CON, 1 MG | | | | | | | CO | | | | | | | INJECTION, | | | | | | | FAMOTIDINE, | | | | | | | 20 MG CO | | | | | | | NORMAL | | | | | | | SALINE | | | | | | | SOLUTION | | | | | | | INFUS, 500 | | | | | | | ML CO | | | | | | | NORMAL | | | | | | | SALINE | | | | | | | SOLUTION | | | | | | | INFUS, 250 | | | | | | | ML CO | | | | | | | STERILE | | | | | | | WATER/SALINE | | | | | | | , 10 ML CO | | | | | | | CHEMOTHER, | | | | | | | IV PUSH,EA | | | | | | | ADD DRUG CO | | | | | | | CHEMOTHER, | | | | | | | IV INFUSION, | | | | | | | 1 HR CO | | | | | | | CHEMOTHER, | | | | | | | IV INFUSION, | | | | | | | EA HR CO | | | | | | | CHEMOTHER,NO | | | | | | | N-HORMONE | | | | | | | ANTI-NEOPL, | | | | | | | SUB-Q/IM CO | | | | | | | CHEMOTHER | | | | | | | HORMON | | | | | | | ANTINEOPL | | | | | | | SUB-Q/IM CO | | | | | | | NA FERRIC | | | | | | | GLUCONATE | | | | | | | COMPLEX, | | | | | | | 12.5 MG CO | | | | | | [...] + + | 11/15/ | Hospital | [facility] | Janel, | Rectal cancer (HCC) | | 2017 | Encounter | MED CTR CHEMO | Mike White MD [address] | | | | | INFUSION [address] | [address] [facility] | | | | | [place], | [place] [address] | | | | | [place] [address] | [phone] | | | | | [phone] | | | +--------+ + + + [...] Jada Jauregui RN - 11/15/2016 2:37 PM [id number] patient started flushing and sweating infusion stopped [...] [address] | [place] | [phone] | | [facility] | | [address] | | | - LABORATORY | | [...] mL/min/1.73m2 | Jame DONALD | | | [place] | RATE,ESTIMATED | | MEDICAL | | | | mL/min/1.62v6Nyye than | | CENTER - | | [...] ST. | [address] | [place], [place] | [phone] | | [facility] | | [address] | | | - LABORATORY | | [...] ST. | [address] | [place], [place] | [phone] | | [facility] | | [address] | | | - LABORATORY | | [...] + | [facility] | [address] | [place] | [phone] | | [facility] | | [address] | | | - LABORATORY | | [...] [address] | [place] | [phone] | | [facility] | | [address] | | | - LABORATORY | | [...]
--- OUTSIDE RECORDS SUMMARY | ~2019-06-11 | XMS | Encounter Summary ---
Demographics + + + | Address | [address] | | | [place] [address] | + + + | Home Phone [...] + | Organization | [facility] | | | and [place] | + + + | Address | Unknown | + + + | Phone | Unavailable | + + + Support + + + + + | Name | Relationship | Address | Phone | + + + + + | Lamar Phillips | ECON | [place] [address] | | + + + + + Care Team Providers + +------+ + | Care Office Electrician Name | Role | Phone | [...] MD | | | | | ([facility] | [address] | [address] | | | | | Rectal CA | [address] | ST [place] | | | | | Procedures | [place], | [place], [place] | | | | | [place] OFFICE | [place] [address] | [address] Phone: | | | | | OUTPATIENT | Phone: | [phone] | | | | | VISIT 25 | [phone] | Fax: | | | | | MINUTES | Fax: | [phone] | | | | | Evaluate | [phone] | | +--------+ + + + + + Encounter Details +--------+ + + + + | Date | Type | Department | Care Team | Description | +--------+ + + + + | 10/18/ | Hospital | [facility] | Janel, | Rectal cancer (HCC) | | 2017 | Encounter | MED CTR MEDICAL | Sirena White MD [address] | (Primary Dx) | | | | ONCOLOGY CLINIC [address] | [address] [place] | | | | | [address] [place] | [place] [address] | | | | | [place] [address] | [phone] | | | | | [phone] | | | +--------+ + + + [...] nt from the original. Hematology/Oncology Progress Note [facility] [place] Pt. Name/Age/: Paulette Byrnes 55 y.o. 1960 Med. Record Number: [id number] Date of admission: 10/18/2016 The patient's primary care provider is Kristian Anderson DO. Identifying Statement: Paulette Byrnes is a 55 y.o. female from [address] [place] [address] with Locally Advanced Rectal Cancer. The patient chart and medications were reviewed in detail and the patient was seen and exam ined. History of Present Illnesses, their Current Assessments and Plans: Problems That Were Updated This Visit Rectal cancer Overview ACTIVE DIAGNOSIS: Locally Advanced Rectal Cancer. Paulette presented to the [facility] emergency room on July 20, [...] cm within the rectum. Biopsy specimen number [id number] evaluated by Dr. Felipe Nixon of [facility] was notable for a tubular adenoma without high-grade dysplasia or overt carcinoma. This proced ure also included a full colonoscopy through the ostomy were 2 additional polyps were remove d, a tubular adenoma at 35 cm and a hyperplastic polyp at [address] C/A/P at [facility] in [place], [place] demonstrated no evidence of metastati c disease. On September 22, 2016 Dr. Thacker placed in internal jugular Port-A-Cath without complications. On October 14, 2016 Paulette was evaluated by Dr. Ailyn Wolff and Dr. Shea Mcneill of the [facility] where her case was presented to their tumor board. Clinical exa m is notable for an overt rectal carcinoma invading into the vagina. 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 Concerns raised by the [facility] Tumor Board were [...] Wolff and Dr. Shea Mcneill of the [facility] in [facility] for neoadjuvant treatment of locally advanced rectal cancer. Chief complaint is perineal pain, generally relieved with hydrocodone. Clinical exam is notable for a Right port-a-cath, a low midline colostomy, and a Hong-Pr att drain in the Left lower quadrant. Laboratory exam is notable for anasarca and hypokalemia. Assessment; Locally advanced rectal cancer. Plan; Case was discussed with Dr. Ailyn Wolff of [facility] surgical oncology, Dr. Marty Thacker of [facility], and Dr. Joel Alfaro of the [facility]: The patient will begin the first of six cycles of FOLFOX chemotherapy today. She will see Miller Thacker for another rectal biopsy for molecular markers. Dr. Thacker is aware that the patient is starting chemotherapy today and approves. Following six cycles of FOLFOX chemoth erapy, the patient will cross-over to combined modality chemoradiation therapy, followed by pelvic exenteration at [facility]. Review of Systems: REVIEW OF SYSTEMS Constitutional: [...] Pharmacy Services Progress Note Chemotherapy Education Session Located Within [facility] Pt. Name/Age/: Paulette Byrnes 55 y.o. 1960 Med. Record Number: [id number] Identifying Statement: Paulette Byrnes is a 55 y.o. female from [address] [place] [address] with The encounter diagnosis was Rectal cancer [...] Disp-30 tablet, R-5, Print Uses [facility] in [place]. OrderHistory dexamethasone (DECADRON) 4 mg tablet Take [...] today. Uses [facility]. All treatments in [place] (We are overbooked in [place]) but can she have her pump of f in [place]? I promise to bring the pump back. [...] this chart may have been created with Lollipuff voice recognition software. Occasi onal wrong-word or sound-alike substitutions may have occurred due to the inherent leung itations of voice recognition software. Please read the chart carefully and recognize, using context, where these substitutions have occurred. Mildred Eastman [facility] - 10/06/2016 3:38 PM PDT IDT PATIENT MEDICATION/PROFILE REVIEW [facility] CLINICAL [facility]ARMAC[facility] SERVICES Pharmacy Recommendation [...] Shea Mcneill and Dr. Ailyn Wolff at [facility] Chemotherapy/Supportive therapy: Dexamethasone Ondansetron Lorazepam fosaprepitant Lorazepam oxaliplatin Leucovorin Fluorouracil Reference/citation for therapy: Pertinent Medical History: has no past medical history on file. Other pertinent objective data: none Current Medications: Bupropion Sr [place] Ascorbic acid Clobetasol 0.05% cream Pertinent Baseline Labs: Scr = 0.4 Electronically signed by: Mildred Orosco [facility] 10/06/2016 15:38 documented in this en counter Plan of Treatment Not on filedocumented as of this encounter Visit Diagnoses + + | Diagnosis | + + | Rectal cancer (HCC) - Primary Malignant neoplasm of rectum | + + documented in this encounter
--- OUTSIDE RECORDS SUMMARY | ~2019-06-11 | XMS | Encounter Summary ---
Demographics + + + | Address | [address] | | | [place] [address] | + + + | Home Phone [...] Team Providers + +------+ + | Care Atlassian Administrator Name | Role | Phone | [...] | | | | MR RECTAL | [place], [place] | Mailcode: | | | | | [place] | [address] | [address] | | | | | MRI, PELVIS, | Phone: | [place] | | | | | COMBO | [phone] | Research | | | | | | Fax: | Center | | | | | | [phone] | [place], [place] | | | | | | | [address] | | | | | | | Phone: | | | | | | | [phone] | | | | | | | Fax: | | | | | | | [phone] | +--------+--------+ + + + + Reason [...] RECTAL | [facility] [place] | Mailcode: | | | | | [place] | [address] | [address] | | | | | MRI, PELVIS, | Phone: | [place] | | | | | COMBO | [phone] | Research | | | | | | Fax: | Center | | | | | | [phone] | [place], [place] | | | | | | | [address] | | | | | | | Phone: | | | | | | | [phone] | | | | | | | Fax: | | | | | | | [phone] | +--------+--------+ + + + + Encounter Details +--------+ + + + + | Date | Type | Department | Care Team | Description | +--------+ + + + + | 03/02/ | Hospital | Diagnostic Imaging | Ailyn Wolff MD | | | 2017 | Encounter | Services at [facility] | [address] | | | | | [address] | [place], | | | | | [place] Mailcode: | [place] [address] | | | | | [address] [place] | [phone] | | | | | [facility] | | | | | | [place], [place] | | | | | | [address] | | | | | | [phone] | | | +--------+ + + + [...] | | | | | | [place] [address] | | | | | | [phone] | | | | | | | [...]
--- OUTSIDE RECORDS SUMMARY | ~2019-06-11 | XMS | Encounter Summary ---
Demographics + + + | Address | [address] | | | [place] [address] | + + + | Home Phone [...] + | Organization | [facility] | | | and [place] | + + + | Address | Unknown | + + + | Phone | Unavailable | + + + Support + + + + + | Name | Relationship | Address | Phone | + + + + + | Lamar Phillips | REZA | [place] [address] | | + + + + + Care Team Providers + +------+ + | Care Centrifugal Spinner Name | Role | Phone | + [...] | | MD [address] | | | | | | [address] | [place], | | | | | | [place], | [place] [address] | | | | | | [place] [address] | Phone: | | | | | | Phone: | [phone] | | | | | | [phone] | Fax: | | | | | | Fax: | [phone] | | | | | | [phone] | | +--------+ + + + + + Encounter Details +--------+ + + + + | Date | Type | Department | Care Team | Description | +--------+ + + + + | 10/18/ | Hospital | [facility] | Janel, | Rectal cancer (HCC) | | 2017 | Encounter | MED CTR NUTRITION | Mike White MD [address] | (Primary Dx) | | | | SERVICES [address] [place] | | | | | [place], | [place] [address] | | | | | [place] [address] | [phone] | | | | | [phone] | | | | | | | [...] likes Ensure clear and buys it from [employer]. She does have quest ions on how to help prevent nausea. Provided and discussed nausea prevention MNT, high prot ein high calorie MNT and that she may be able to purchase the ensure enlive cheaper through [facility]. She states that is where [...] 1.9* 10/18/2016 Estimated needs (wt. 65 kg) 8332-0301 kcals/day 65-78 gm pro/day Medications: reviewed ASSESSMENT/PLAN: [...]
--- OUTSIDE RECORDS SUMMARY | ~2019-06-11 | XMS | Encounter Summary ---
Demographics + + + | Address | [address] | | | [place] [address] | + + + | Home Phone [...] + | Organization | [facility] | | | and [place] | + + + | Address | Unknown | + + + | Phone | Unavailable | + + + Support + + + + + | Name | Relationship | Address | Phone | + + + + + | Lamar Phillips | REZA | [place] [address] | | + + + + + Care Team Providers + +------+ + | Care Furnace Erector Name | Role | Phone | + +------+ + | Kristian Anderson DO | PCP | | + +------+ + Encounter Details +--------+ + + + + | Date | Type | Department | Care Team | Description | +--------+ + + + + | 02/17/ | Hospital | [facility] | Janel, | Rectal cancer (HCC) | | 2017 | Encounter | MED CTR CHEMO | Mike White MD [address] | | | | | INFUSION [address] [place] | | | | | [place], | [place] [address] | | | | | [place] [address] | [phone] | | | | | [phone] | | | +--------+ + + + [...] and radiation and will be going to [place] several weeks to meet with radha munoz [...] | | | | | Care, Starting [facility] 02/17/17 at | | | | | | | 0840 | | | | | | + +--------+ +-------+------+------+ +---+---+ | | | +---+---+ documented in this encounter"
--- OUTSIDE RECORDS SUMMARY | ~2019-06-11 | XMS | Encounter Summary ---
[...] Team Providers + +------+ + | Care Control Room Operator Name | Role | Phone | [...] | 2017 | on | Center at [facility] [address] | [address] | (GI Oncology | | | | [address] | Amita H[place], | Planning Conference) | | | | Mailcode: [place] | [place] [address] | | | | | for Health and | [phone] | | | | | [facility] 2 | | | | | | [place], [place] | | | | | | [address] | | | | | | [phone] | | | +--------+ + + + [...] | | | | | [place], | | | | | | [place] [address] | | | | | | [phone] | | | | | | | | +--------+---------+ + + + documented as of this encounter Visit Diagnoses Not on filedocumented in this encounter"
--- OUTSIDE RECORDS SUMMARY | ~2019-06-11 | XMS | Encounter Summary ---
Demographics + + + | Address | [address] | | | [place] [address] | + + + | Home Phone [...] + +------+ + | Care Director Of Golf Name | Role | Phone | + [...] [address] | [address] | Received | | | | [address] | [place], | | | | | Mailcode: [place] | [place] [address] | | | | | for Health and | [phone] | | | | | [facility] 2 | | | | | | [place], [place] | | | | | | [address] | | | | | | [phone] | | | +--------+ + + + [...] | | | | | [place], | | | | | | [place] [address] | | | | | | [phone] | | | | | | | | +--------+---------+ + + + documented as of this encounter Visit Diagnoses Not on filedocumented in this encounter"
--- OUTSIDE RECORDS SUMMARY | ~2019-06-11 | XMS | Encounter Summary ---
Demographics + + + | Address | [address] | | | [place] [address] | + + + | Home Phone [...] Team Providers + +------+ + | Care Local Company Tanker Driver Name | Role | Phone | [...] | 2018 | Encounter | Center at [facility] [address] | [address] | | | | | [address] | Amita Hines [place], | | | | | Mailcode: [place] | [place] [address] | | | | | for Health and | [phone] | | | | | [facility], [facility] 2 | | | | | | [place], [place] | | | | | | [address] | | | | | | [phone] | | | +--------+ + + + [...] | | | | [place]mita [place], | | | | | | [place] [address] | | | | | | [phone] | | | | | | | | +--------+---------+ + + + documented as of this encounter Visit Diagnoses Not on filedocumented in this encounter"
--- OUTSIDE RECORDS SUMMARY | ~2019-06-11 | XMS | Encounter Summary ---
Demographics + + + | Address | [address] | | | [place] [address] | + + + | Home Phone [...] + +------+ + | Care Slicing Machine Feeder Name | Role | Phone [...] | | | | | | | [place] [facility] | | | | | | | Health and | | | | | | | Healing, | | | | | | | Building [address] | | | | | | | [place], [place] | | | | | | | [address] | | | | | | | Phone: | | | | | | | [phone] | | | | | | | Fax: | | | | | | | [phone] | +--------+--------+ + + + + Encounter Details +--------+---------+ + + + | Date | Type | Department | Care Team | Description | +--------+---------+ + + + | 11/27/ | Office | Digestive Health | Ailyn Wolff MD | Rectal cancer (HCC) | | 2019 | Visit | Center at [facility] [address] | [address] | (Primary Dx) | | | | [address] | Suzy Hines [place], | | | | | Mailcode: [place] | [place] [address] | | | | | for Health and | [phone] | | | | | [facility] 2 | | | | | | [place], [place] | | | | | | [address] | | | | | | [phone] | | | +--------+---------+ + + + [...] rectal bleeding on 12/26/16 went to the [facility] ED CT abdomen/pelvis with IV contrast [...] anal verge presented at the [facility] Multidisciplinary GI Oncology Conference on 10/07/16 diagnosis: [...] pouch staple line presented at [facility] Multidisciplinary GI Oncology Conference on 03/10/17. Given [...] 05/17/17) close to pelvic sidewall [facility] Multidisciplinary GI Oncology Conference (06/02/17) Recommendations with [...] resection with Primary anastomosis, placement of a 19-Swedish Albert drain through the right lower quadrant [...] resection with primary anastomosis, placement of a 19-Swedish Albert drain through the right lower quadrant [...] Return/Re-evaluation patient, I spent 11 minutes of bljh-ly-tuza time, of which m ore than half [...] | | | | | Suzy H[place], | | | | | | [place] [address] | | | | | | [phone] | | | | | | | [facility] | [address] | [place] [address] | | | SERVICES, CORE | [address] | | | + + + + + documented in this encounter Visit Diagnoses + + | Diagnosis | + + | Rectal cancer (HCC) - Primary Malignant neoplasm of rectum | + + documented in this encounter
--- OUTSIDE RECORDS SUMMARY | ~2019-06-11 | XMS | Encounter Summary ---
Demographics + + + | Address | [address] | | | [place] [address] | + + + | Home Phone [...] Team Providers + +------+ + | Care Credit Associate Name | Role | Phone | [...] | 2017 | | Center at [facility] [address] | [address] | Review | | | | [address] | Amita Hines [place], | | | | | Mailcode: [place] | [place] [address] | | | | | for Health and | [phone] | | | | | [facility] 2 | | | | | | [place], [place] | | | | | | [address] | | | | | | [phone] | | | +--------+ + + + [...] | | | | | Amita Hines [place], | | | | | | [place] [address] | | | | | | [phone] | | | | | | | | +--------+---------+ + + + documented as of this encounter Visit Diagnoses Not on filedocumented in this encounter"
--- OUTSIDE RECORDS SUMMARY | ~2019-06-11 | XMS | Encounter Summary ---
Demographics + + + | Address | [address] | | | [place] [address] | + + + | Home Phone [...] Organization | [facility] | | | and [place] | + + + | Address | Unknown | + + + | Phone | Unavailable | + + + Support + + + + + | Name | Relationship | Address | Phone | + + + + + | Lamar Phillips | REZA | [place] [address] | | + + + + + Care Team Providers + +------+ + | Care Mobile Equipment Operator Name | Role | Phone [...] Other | | 2017 | | MED [facility] | Mike White MD [address] | | | | | ONCOLOGY CLINIC [address] [place] | | | | | [address] [place] | [place] [address] | | | | | [place] [address] | [phone] | | | | | [phone] | | | +--------+ + + + [...]
--- OUTSIDE RECORDS SUMMARY | ~2019-06-11 | XMS | Encounter Summary ---
Demographics + + + | Address | [address] | | | [place] [address] | + + + | Home Phone [...] Organization | [facility] | | | and [place] | + + + | Address | Unknown | + + + | Phone | Unavailable | + + + Support + + + + + | Name | Relationship | Address | Phone | + + + + + | Lamar Phillips | REZA | [place] [address] | | + + + + + Care Team Providers + +------+ + | Care Paper Cone Machine Tender Name | Role | Phone [...] neoplasm of | Mike C, | [place] | | | | | rectum (HCC) | MD [address] | [place], | | | | | Procedures | [address] | [place] [address] | | | | | NE | [place], | Phone: | | | | | [place] | [place] [address] | [phone] | | | | | INJECTION, | Phone: | Fax: | | | | | [address] | [phone] | [phone] | | | | | NORMAL | Fax: | | | | | | SALINE | [phone] | | | | | | SOLUTION | | | | | | | INFUS, 500 | | | | | | | ML NE | | | | | | | NORMAL | | | | | | | SALINE | | | | | | | SOLUTION | | | | | | | INFUS, 250 | | | | | | | ML NE | | | | | | | STERILE | | | | | | | WATER/SALINE | | | | | | | , 10 ML NE | | | | | | | CHEMOTHER, | | | | | | | IV PUSH,EA | | | | | | | ADD DRUG NE | | | | | | | CHEMOTHER, | | | | | | | IV INFUSION, | | | | | | | 1 HR NE | | | | | | | CHEMOTHER, | | | | | | | IV INFUSION, | | | | | | | EA HR NE | | | | | | | CHEMOTHER,NO | | | | | | | N-HORMONE | | | | | | | ANTI-NEOPL, | | | | | | | SUB-Q/IM NE | | | | | | | CHEMOTHER | | | | | | | HORMON | | | | | | | ANTINEOPL | | | | | | | SUB-Q/IM NE | | | | | | | ONDANSETRON | | | | | | | HCL | | | | | | | INJECTION, 1 | | | | | | | MG NE | | | | | | | DEXAMETHASON | | | | | | | E SODIUM | | | | | | | PHOS, 1 MG | | | | | | | NE LORAZEPAM | | | | | | | INJECTION, | | | | | | | 2 MG NE | | | | | | | OXALIPLATIN, | | | | | | | .5 MG NE | | | | | | | LEUCOVORIN | | | | | | | CALCIUM | | | | | | | INJECTION, | | | | | | | 50 MG NE | | | | | | | DIPHENHYDRAM | | | | | | | INE HCL | | | | | | | INJECTIO, 50 | | | | | | | MG NE | | | | | | | METHYLPREDNI | | | | | | | SOLONE | | | | | | | INJECTION, | | | | | | | 125 MG NE | | | | | | | ADRENALIN | | | | | | | EPINEPHRINE | | | | | | | INJECT, .1 | | | | | | | MG NE | | | | | | | ALBUTEROL | | | | | | | COMP CON, 1 | | | | | | | MG NE | | | | | | | ALBUTEROL | | | | | | | NON-COMP | | | | | | | CON, 1 MG | | | | | | | NE | | | | | | | INJECTION, | | | | | | | FAMOTIDINE, | | | | | | | 20 MG | | | +--------+--------+ + + + + Encounter Details +--------+ + + + + | Date | Type | Department | Care Team | Description | +--------+ + + + + | 05/16/ | Hospital | [facility] | [facility], | Rectal cancer (HCC); | | 2017 | Encounter | MED CTR CHEMO | Mike White MD [address] | Lichen sclerosus | | | | INFUSION [address] | [address] [place] | | | | | [place], | [place] [address] | | | | | [place] [address] | [phone] | | | | | [phone] | | | +--------+ + + + [...] [address] | [place] | [phone] | | [facility] | | [address] | | | - LABORATORY | | [...] (H) | 70 - 109 mg/dL | [facility] | | | | | [facility] | | | | | [facility] | | | | | | [facility] - | | | | | | LABORATORY | | + + + + + + | BUN | 10 | 7 - 18 mg/dL | [facility] | | | | | | ST. [...] mL/min/1.73m2 | [facility] | | | [place] | RATE,ESTIMATED | | MEDICAL | | | | mL/min/1.28q3Aett than | | CENTER - | | [...] (L) | 3.2 - 5.0 g/dL | [facility] | | | | | | ST. [...] [address] | [place] | [phone] | | [facility] | | [address] | | | - LABORATORY | | [...] + | [facility] | [address] | [place] | [phone] | | [facility] | | [address] | | | - LABORATORY | | [...] + | [address] | [address] | [place], [place] | [phone] | | [facility] | | [address] | | | - LABORATORY | | [...]
--- OUTSIDE RECORDS SUMMARY | ~2019-06-11 | XMS | Encounter Summary ---
Demographics + + + | Address | [address] | | | [place] [address] | + + + | Home Phone [...] Team Providers + +------+ + | Care Vibrating Screed Operator Name | Role | Phone | + +------+ + | Kristian Anderson DO | PCP | | + +------+ + Encounter Details +--------+ + + + + | Date | Type | Department | Care Team | Description | +--------+ + + + + | 06/30/ | Procedure | 6A Intra Op [facility] | | | | 2017 | Pass | [facility] | | | | | | Admitting Desk | | | | | | Located on the 9th | | | | | | floor [address] | | | | | | [address] | | | | | | [place], [place] | | | | | | [address] | | | +--------+ + + + [...] | | | | | Amita Hines [place], | | | | | | [place] [address] | | | | | | [phone] | | | | | | | | +--------+---------+ + + + documented as of this encounter Visit Diagnoses Not on filedocumented in this encounter"
[~2019-06-11 19:14] MED LIST changes: +CLINDAMYCIN HC300 MG PO
--- OUTSIDE RECORDS SUMMARY | 2019-06-11 19:16 | XMS ---
PreManage Notification: PAULETTE BYRNES Security Speech/Language Therapist Events No recent Security Events currently on file CRITERIA MET - [facility] - Has Care Guidelines - [facility] - 2 Visits in 30 Days CARE PROVIDERS There are no care providers on record at this time. Guidelines Source: [facility] Guidelines Date: 05/25/2019 Care Coordination: Receives mental health services with [facility].\T\nbsp; Please contact [facility] for mental health concerns.\T\nbsp; [facility]T\nbsp; [phone]\T\nbsp; Shadi: [phone]. E.D. VISIT COUNT (12 MO.) 2 [facility]. TOTAL 2 NOTE: Visits indicate total known visits. ED/UCC VISIT TRACKING (12 MO.) 06/11/2019 19:14 [facility] TYPE: Emergency COMPLAINT: - POST OP BLEEDING 05/24/2019 14:38 [facility] TYPE: Emergency COMPLAINT: - ABD PAIN/COLOSTOMY BAG INPATIENT VISIT TRACKING (12 MO.) 06/01/2019 09:00 [facility] TYPE: Medical Surgical COMPLAINT: - DECONDITIONING DIAGNOSES: - Overactive bladder - Infection following a procedure, other surgical site, subs - Overactive bladder - Colostomy status - Personal history of nicotine dependence - Colostomy status - Other detention (current) drug therapy - Other detention (current) drug therapy - Allergy status to oth drug/meds/biol subst status - Allergy status to oth drug/meds/biol subst status - Encntr for surgical aftcr following surgery on the [facility] sys - Prsnl hx of malig neoplm of rectum, rectosig junct, and anus - Personal history of nicotine dependence - Prsnl hx of malig neoplm of rectum, rectosig junct, and anus - Allergy status to narcotic agent status - Infection following a procedure, other surgical site, subs - Allergy status to narcotic agent status 05/24/2019 17:[address] [facility] TYPE: Medical Surgical COMPLAINT: - SMALL BOWEL OBSTRUCTION DIAGNOSES: - Prsnl hx of malig neoplm of rectum, rectosig junct, and anus - Colostomy status - Parastomal hernia with obstruction, without gangrene - Other detention (current) drug therapy - Allergy status to narcotic agent status - Cyst of kidney, acquired - Major depressive disorder, recurrent, mild - Overactive bladder - Major depressive disorder, recurrent, mild - Allergy status to oth drug/meds/biol subst status - Left lower quadrant pain - Essential (primary) hypertension - Urinary tract infection, site not specified - Prsnl hx of malig neoplm of rectum, rectosig junct, and anus - Allergy status to narcotic agent status - Urinary tract infection, site not specified - Cyst of kidney, acquired - Unsp Escherichia coli as the cause of diseases classd elswhr - Hyperlipidemia, unspecified - Personal history of nicotine dependence - Unsp Escherichia coli as the cause of diseases classd elswhr - Essential (primary) hypertension - Colostomy status - Personal history of nicotine dependence - Allergy status to oth drug/meds/biol subst status - Peripheral vascular disease, unspecified - Parastomal hernia with obstruction, without gangrene - Overactive bladder - Other predatory animal exterminator (current) drug therapy - Peripheral vascular disease, unspecified - Hyperlipidemia, unspecified [email or web address]
[2019-06-11] MEDS ORDERED: BACTRIM DS TAB1 EACH PO (22:58)
== END 2019-06-11 23:13 | disposition home or self-care (01) ==
LOC: ED 19:14
DX: L76.34 Postprocedural seroma of skin and subcutaneous tissue following other procedure (principal); I10 Essential (primary) hypertension; Z87.891 Personal history of nicotine dependence; Z88.8 Allergy status to other drugs, medicaments and biological substances; Z79.899 Other long term (current) drug therapy
CPT/HCPCS: 85025; 87070; 87077; 87186; 87205; 99283

== ENCOUNTER 2019-08-23 13:35 | Emergency (ER) | payer MEDICARE, MEDICAID ==
[~2019-08-23] VITALS: Ht 160 cm; Wt 87.1 kg
[~2019-08-23 13:35] MED LIST changes: +BACTRIM DS TAB1 EACH PO
--- OUTSIDE RECORDS SUMMARY | 2019-08-23 13:38 | XMS ---
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 Care History Medical/Surgical 06/12/2019 [facility] - Patient is currently established with [facility]. If patient is seen in the ED during business hours. Please contact CHWs at [facility]. Care Recommendation: If this patient has had 5 or more Emergency Department visits in the last 12 months.\T\nbsp; Patient will require education on the scope and purpose of the ED as an acute care provider not a Primary Care Provider and should not be utilized for chronic conditions.\T\nbsp; These are guidelines and the provider should exercise clinical judgment when providing care. E.D. VISIT COUNT (12 MO.) 3 KINDRA [place] TOTAL 3 NOTE: Visits indicate total known visits. ED/UCC VISIT TRACKING (12 MO.) 08/23/2019 13:36 [place] [place] TYPE: Emergency COMPLAINT: - FALL, CHEST PAIN AND BACK PAIN 06/11/2019 19:14 [facility] [place] TYPE: Emergency COMPLAINT: - POST OP BLEEDING DIAGNOSES: - Personal history of nicotine dependence - Postproc seroma of a dgstv sys org fol a dgstv sys procedure - Allergy status to oth drug/meds/biol subst status - Other supervisor intermediates (current) drug therapy - Essential (primary) hypertension - Postproc seroma of skin, subcu following other procedure 05/24/2019 14:38 [place] [place] TYPE: Emergency COMPLAINT: - ABD PAIN/COLOSTOMY BAG INPATIENT VISIT TRACKING (12 MO.) 06/01/2019 09:00 [facility] [place] TYPE: Medical Surgical COMPLAINT: - DECONDITIONING DIAGNOSES: - Overactive bladder - Infection following a procedure, other surgical site, subs - Overactive bladder - Colostomy status - Personal history of nicotine dependence - Colostomy status - Other custodial (current) drug therapy - Other custodial (current) drug therapy - Allergy status to oth drug/meds/biol subst status - Allergy status to oth drug/meds/biol subst status - Encntr for surgical aftcr following surgery on the dgstv sys - Prsnl hx of malig neoplm [...] COMPLAINT: - SMALL BOWEL OBSTRUCTION DIAGNOSES: - Urinary tract infection, site not specified - Colostomy status - Parastomal hernia with obstruction, without gangrene - Other custodial (current) drug therapy - Allergy status to narcotic agent status - Encounter for immunization - Cyst of kidney, acquired - Major [...] status - Cyst of kidney, acquired - Prsnl hx of malig neoplm of rectum, rectosig junct, and anus - Unsp Escherichia coli as the cause [...] without gangrene - Overactive bladder - Other custodial (current) drug therapy - Peripheral vascular disease, unspecified - Hyperlipidemia, unspecified [email or web address]
== END 2019-08-23 15:25 | disposition home or self-care (01) ==
LOC: ED 13:35
DX: S20.219A Contusion of unspecified front wall of thorax, initial encounter (principal); S40.022A Contusion of left upper arm, initial encounter; W18.2XXA Fall in (into) shower or empty bathtub, initial encounter; Z87.891 Personal history of nicotine dependence; Z79.899 Other long term (current) drug therapy
CPT/HCPCS: 71046; 99284-25

== ENCOUNTER 2019-09-11 06:40 | Day surgery (SDC) | payer MEDICARE, MEDICAID ==
[~2019-09-11] VITALS: Ht 160 cm; Wt 89.4 kg
[~2019-09-11 06:40] MED LIST changes: +LEXAPRO10 MG PO
[2019-09-11] MEDS ORDERED: ALPRAZOLAM1 MG PO (07:08)
--- NOTE | 2019-09-11 08:50 | NUR ---
09/11/19 0850 Sheets,Sheila 0843 PT ARRIVED TO PACU ON 3L VIA NC, PT COLOSTOMY BAG FULL OF AIR AND AIR RELEASED. 0849 PT WOKE AND O2 REMOVED, PT ASKING FOR WATER THEN FALLS BACK TO SLEEP. HOB INCREASED.
--- NOTE | 2019-09-11 11:25 | NUR ---
PT IS ALERT, ORIENTED AND SUPPORTED BY HER NEIGHBOR. PT IS HERE FOR HER SHE CALLS IT HER YEARLY SCOPE. WITH PREVIOUS CANCER HISTORY, PT FEELS THIS IS VERY IMPORTANT TO HER. PT REQUESTED PRAYER, WILL FOLLOW NEEDED
--- NOTE | 2019-09-12 06:14 | OR ---
[facility] [address] [place], [place] [address] Signed DATE OF OPERATION: 09/11/2019 SURGEON: Carlos Posada MD PREOPERATIVE DIAGNOSIS: Rectal cancer in 2016, requiring DICTATION ENDS HERE MD GEOVANY Alfaro/MODL /[id number] Copies: ~ Electronically Signed By: CARLOS POSADA MD 09/12/1914 PATIENT NAME: FITZPAULETTE ALTAF OPERATIVE REPORT DATE OF : 56 REPORT #: [id number] PHYSICIAN: CARLOS POSADA MD PCP: FEDERICO LOPEZ DO REPORT IS CONFIDENTIAL AND NOT TO BE RELEASED WITHOUT AUTHORIZATION
--- NOTE | 2019-09-12 06:14 | OR ---
[facility] [address] [place], [place] [address] Signed DATE OF OPERATION: 09/11/2019 SURGEON: Carlos Posada MD PREOPERATIVE DIAGNOSES: 1. Rectal cancer, 2017, requiring abdominoperineal resection. 2. Diverticulosis. 3. Colonic polyps. POSTOPERATIVE DIAGNOSES: 1. 5 mm polyp distal right colon. 2. 4 mm polyps in distal hepatic flexure, 45 cm and 32 cm. 3. Left-sided diverticulosis. PROCEDURE: Colonoscopy with hot biopsy. ESTIMATED BLOOD LOSS: None. INDICATIONS: Jenn is a 58-year-old female, who presented in 2017 with a rectal cancer. She ultimately had chemo and radiation therapy along with her abdominoperineal resection. She has come through that very nicely. She is known to have left-sided diverticulosis and she has had colonic polyps removed. She had her last colonoscopy in July 2018. She follows up this year for repeat colonoscopy. In the meantime, she had primary repair of her parastomal hernia. She said she has been asked not to lift over 20 pounds. In the meantime, she has been doing well. She gives no family history of colon cancer or polyps. I met with Jenn in the office and I gave her a pamphlet on colonoscopy. We reviewed the nature of the test along with the risks including, but not limited to gas bloating, crampy abdominal pain, bleeding, perforation requiring surgery, and missed diagnosis. We also discussed the need for IV conscious sedation. She is very anxious coming to the hospital. Consequently, we always gave her some Xanax prior to coming. That helps out quite nicely. She had expressed understanding and wished to proceed. PROCEDURE NOTE: Jenn was taken into our endoscopy suite and then she was placed in the left lateral decubitus position. She was given a total of 5 mg of Versed and 125 mcg of fentanyl to cover the whole case. We examined the perineum and found it to be well healed and Electronically Signed By: CARLOS POSADA MD 09/12/19 0614 PATIENT NAME: JENN BYRNES OPERATIVE REPORT DATE OF : 56 REPORT #: [id number] PHYSICIAN: CARLOS POSADA MD PCP: FEDERICO LOPEZ DO REPORT IS CONFIDENTIAL AND NOT TO BE RELEASED WITHOUT AUTHORIZATION [facility] [address] [place], [place] [address] Signed unremarkable. No evidence of obvious of any recurrence. After this, she was rotated into the supine position. The colostomy bag was removed and at her request, we measured out the colostomy bag at 4.5 cm transversely and 3 cm vertically. A digital rectal exam was undertaken and I can feel the edges of the fascia. No evidence of any recurrent parastomal hernia. After this, the adult colonoscope was introduced and advanced all around into the cecum under direct visualization of camera. Her prep was good. There was a couple areas of liquid particulate stool matter. Most of that was irrigated and suctioned out. We could see the appendiceal orifice and ileocecal valve. The scope was slowly withdrawn. The above-mentioned polyps were easily removed with the help of hot biopsy forceps. She also has left-sided diverticulosis. They are moderate in size, few in number, and scattered about. After this, the gas had been suctioned out and the colonoscope removed. We did take a picture of the colostomy as well. Jenn tolerated procedure quite well. RECOMMENDATIONS: I will see Jenn back in my office in 7 to 14 days to review her results. Carlos Posada MD ALB/MODL /[id number] cc: MD Carlos Neri MD Arian Kargar, DO Aimee Rogers, MD Ailyn Wolff, MD Rossana Knowles MD Copies: SIRENA EHLTON MD Electronically Signed By: CARLOS POSADA MD 09/12/19 0614 PATIENT NAME: JENN BYRNES OPERATIVE REPORT DATE OF : 56 REPORT #: [id number] PHYSICIAN: CRALOS POSADA MD PCP: FEDERICO LOPEZ DO REPORT IS CONFIDENTIAL AND NOT TO BE RELEASED WITHOUT AUTHORIZATION [address] [address] Signed CARLOS POSADA MD, ARIAN DO ROGERS, AIMEE MD LU, KIM MD WINN,ROSSANA Stratton MD ~ Electronically Signed By: CARLOS POSADA MD 09/12/19 0614 PATIENT NAME: FITZJENN ALTAF OPERATIVE REPORT DATE OF : 56 REPORT #: [id number] PHYSICIAN: CARLOS POSADA MD PCP: FEDERICO LOPEZ DO REPORT IS CONFIDENTIAL AND NOT TO BE RELEASED WITHOUT AUTHORIZATION
--- NOTE | 2019-09-12 16:15 | PATH ---
[facility] [address] [place], [place] [address] Signed SPECIMEN(S): A DISTAL RIGHT COLON POLYP SPECIMEN(S): B DISTAL HEPATIC FLEXURE POLYP SPECIMEN(S): C COLON POLYP AT 45 CM SPECIMEN(S): D COLON POLYP AT 32 CM SPECIMEN SOURCE: A. DISTAL RIGHT COLON POLYP B. DISTAL HEPATIC FLEXURE POLYP C. COLON POLYP AT 45 CM D. COLON POLYP AT 32 CM CLINICAL HISTORY: History of rectal CA with ostomy. Postop: Diverticula, polyps. MICROSCOPIC DESCRIPTION: Histologic sections of all submitted blocks are examined by light microscopy. These findings, together with the gross examination, support the pathologic diagnosis. FINAL PATHOLOGIC DIAGNOSIS: A. Mucosa, distal right colon, biopsy: - Hyperplastic polyp. B. Mucosa, distal hepatic flexure, biopsy: - Hyperplastic polyp. C. Mucosa, colon at 45 cm, biopsy: - Hyperplastic polyp. D. Mucosa, colon at 32 cm, biopsy: - Surface features suggestive but not entirely diagnostic for hyperplastic polyp (See comment). COMMENT: C -- Multiple levels over three slides are examined. No adenomatous or full thickness hyperplastic change is seen. Diagnosis is also complicated by prominent heat-type artifact. LJA:cml:C2NR GROSS DESCRIPTION: Four specimens are received in four containers, labeled "GR." A. The specimen, labeled "GR, #1," is received in formalin and consists of one white soft tissue fragment(s) that measure 0.4 cm in greatest dimension. The specimen is entirely submitted in cassette (A1). PATIENT NAME: PAULETTE BYRNES PATHOLOGY DATE OF : 56 REPORT #: [id number] PHYSICIAN: HALEY JOHNSON PCP: FEDERICO LOPEZ DO REPORT IS CONFIDENTIAL AND NOT TO BE RELEASED WITHOUT AUTHORIZATION [facility] [address] [place], [place] [address] Signed B. The specimen, labeled "GR, #2," is received in formalin and consists of two white soft tissue fragment(s) that measure 0.4 and 0.4 cm in greatest dimension. The specimen is entirely submitted in cassette (B1). C. The specimen, labeled "GR, #3," is received in formalin and consists of two white soft tissue fragment(s) that measure 0.3 and 0.4 cm in greatest dimension. The specimen is entirely submitted in cassette (C1). D. The specimen, labeled "GR, #4," is received in formalin and consists of one white soft tissue fragment(s) that measure 0.3 cm in greatest dimension. The specimen is entirely submitted in cassette (D1). FB (under the direct supervision of a pathologist) The Gross Description was prepared using a voice recognition system. The report was reviewed for accuracy; however, sound-alike word errors, addition and/or deletions may occur. If there is any question about this report, please contact Client Services. PERFORMING LABORATORY: The technical component was performed by [facility] [address] (Inserter Promotional Item: Diana Mccracken MD; CLIA# [id number]). [facility], [address] [address] (CLIA# [id number]). Diagnostician: Felipe Nixon MD Pathologist Electronically Signed 09/12/2019 Copies: ~ PATIENT NAME: PAULETTE BYRNES PATHOLOGY DATE OF : 56 REPORT #: [id number] PHYSICIAN: HALEY JOHNSON PCP: FEDERICO LOPEZ DO REPORT IS CONFIDENTIAL AND NOT TO BE RELEASED WITHOUT AUTHORIZATION
== END 2019-09-11 09:23 | disposition home or self-care (01) ==
LOC: DS 06:40 → OPS 06:40 → DS 08:15 → OPS 08:15
PROVIDERS: Colon & Rectal Surgery
PROC: 0DBE8ZZ Excision of Large Intestine, Via Natural or Artificial Opening Endoscopic (ICD-10-PCS; 2019-09-11)
PROC: 0DBL8ZZ Excision of Transverse Colon, Via Natural or Artificial Opening Endoscopic (ICD-10-PCS; principal; 2019-09-11 08:15)
DX: K63.5 Polyp of colon (principal); K57.30 Diverticulosis of large intestine without perforation or abscess without bleeding; F17.210 Nicotine dependence, cigarettes, uncomplicated; Z85.048 Personal history of other malignant neoplasm of rectum, rectosigmoid junction, and anus; Z90.49 Acquired absence of other specified parts of digestive tract; Z79.899 Other long term (current) drug therapy; Z98.890 Other specified postprocedural states; Z88.5 Allergy status to narcotic agent; Z88.8 Allergy status to other drugs, medicaments and biological substances
CPT/HCPCS: 99153; G0500; J2250; J3010; J7121

== ENCOUNTER 2021-01-14 06:30 | Day surgery (SDC) | payer MEDICARE, OTHER, MEDICAID ==
[~2021-01-14] VITALS: Ht 160 cm; Wt 94.1 kg
[~2021-01-14 06:30] MED LIST changes: +ALPRAZOLAM1 MG PO; +NEURONTIN400 MG PO
[2021-01-14] MEDS ORDERED: VITAMIN D3125 MCG PO (06:43)
[2021-01-14] MEDS ORDERED: TURMERIC500 M2 PO (06:43)
[2021-01-14] MEDS ORDERED: FOLBIC RF TABL1 EACH PO (06:43)
--- NOTE | 2021-01-14 09:37 | NUR ---
01/14/21 0937 Pat Kraft 0901 PT ARRIVED IN PACU AWAKE WITH NO C/O'S. ABD SOFT. 0910 SITTING UP IN BED SIPPING ON WATER. COLOSTOMY FULL OF AIR AND EXPELLED BY PT. 919 GETTING DRESSED WITH STAND BY ASSIST. DC INSTRUCTIONS GIVEN. ALL QUESTIONS ANSWERED. 30 LEFT VIA W/C.
--- NOTE | 2021-01-14 13:20 | OR ---
[facility] [address] [place], [place] [address] Signed DATE OF OPERATION: 01/14/2021 SURGEON: Carlos Posada MD PREOPERATIVE DIAGNOSES: 1. Perforated rectal cancer in June 2016. 2. Extensive abdominoperineal resection in August 2016. 3. Colonoscopy in July 2018 and August 2019. 4. Diverticulosis. 5. History of multiple colonic polyps. POSTOPERATIVE DIAGNOSES: 1. Minimal to moderate diffuse diverticulosis. 2. 4 mm polyp x2 at 85 cm. PROCEDURE: Colonoscopy with hot biopsy. ESTIMATED BLOOD LOSS: None. INDICATIONS: Jenn is a 60-year-old female, who came with perforated rectal cancer in June 2016. That had to be drained. She then had her extensive abdominoperineal resection in August [address] Ailyn Wolff. She told me the surgery took 11 hours. She had developed a large peristomal hernia that I primarily repaired subsequently. We know she has multiple other colonic polyps removed. Somewhere hyperplastic and other adenomatous. She also has diverticulosis throughout the colon. She has had followup colonoscopies in July 2018 and August 2019. The COVID pandemic slowed her down this year and she returns now for a followup colonoscopy. She also told me a family friend and she took some time to help in that regard. There is no family history of colon cancer or polyps. In the office, I gave her a pamphlet on colonoscopy. She is quite familiar with this whole process. She knows there is risk including, but not limited to gas bloating, crampy abdominal pain, bleeding, perforation requiring surgery, and missed diagnosis. We always use an anesthesia provider given her very full round face, heavy neck, and abdomen along with her other medical issues. She had expressed understanding and wished to proceed. PROCEDURE NOTE: Jenn was taken into endoscopy suite and placed in the supine position. She was given Electronically Signed By: CARLOS POSADA MD 06/23/21 1320 PATIENT NAME: JENN BYRNES OPERATIVE REPORT DATE OF : 56 REPORT #: [id number] PHYSICIAN: CARLOS POSADA MD PCP: FEDERICO LOPEZ DO REPORT IS CONFIDENTIAL AND NOT TO BE RELEASED WITHOUT AUTHORIZATION [facility] [address] [place], [place] [address] Signed monitored anesthesia care with propofol per our nurse turkey pinner. The colostomy bag was removed and we did a digital exam of her colostomy. It appears to be quite healthy without any obvious recurrent parastomal hernia. The adult colonoscope was introduced and advanced under direct visualization of camera. The scope was buckling a bit and she did require some extra propofol. Her prep was quite excellent. We did make it into the cecum itself. We could easily see the appendiceal orifice and the ileocecal valve. We took pictures throughout for photodocumentation. The scope was slowly withdrawn. We could see other previous polypectomy sites. We found two tiny polyps at 85 cm. There were easily removed with hot biopsy forceps. She also has diverticula scattered throughout the colon. They were small to moderate in size, few in number, and scattered about. After this, the scope was then slowly withdrawn. The gas was suctioned out and the colonoscope removed. Jenn tolerated procedure quite well. RECOMMENDATIONS: I will see Jenn back in my office in 7 to 14 days to review her results. It looks like she is going to move to the 3-year rotation after this. MD GEOVANY Alfaro/RIMAL /[id number] cc: MD Ailyn Alfaro MD Arian Kargar, DO Robert C Quackenbush, MD Copies: CARLOS POSADA MD, KIM MD KARGAR, ARIAN DO Electronically Signed By: CARLOS POSADA MD 01/14/21 1320 PATIENT NAME: JENN BYRNES OPERATIVE REPORT DATE OF : 56 REPORT #: [id number] PHYSICIAN: CARLOS POSADA MD PCP: FEDERICO LOPEZ DO REPORT IS CONFIDENTIAL AND NOT TO BE RELEASED WITHOUT AUTHORIZATION [facility] [address] [facility] [place], [place] [address] Signed SIRENA HELTON MD Electronically Signed By: CARLOS POSADA MD 01/14/21 1320 PATIENT NAME: JENN BYRNES OPERATIVE REPORT DATE OF : 56 REPORT #: [id number] PHYSICIAN: CARLOS POSADA MD PCP: FEDERICO LOPEZ DO REPORT IS CONFIDENTIAL AND NOT TO BE RELEASED WITHOUT AUTHORIZATION
--- NOTE | 2021-01-15 14:32 | PATH ---
[facility] [address] [place], [place] [address] Signed SPECIMEN(S): A COLON POLYP 85 CM SPECIMEN SOURCE: A. COLON POLYP 85 CM CLINICAL HISTORY: Colonoscopy. History of rectal CA. Findings: Colon polyp. MICROSCOPIC DESCRIPTION: Histologic sections of all submitted blocks are examined by light microscopy. These findings, together with the gross examination, support the pathologic diagnosis. FINAL PATHOLOGIC DIAGNOSIS: Colon, polyp at 85 cm, polypectomy: - Tubular adenoma. - Negative for high-grade dysplasia or malignancy. NAL:cml:C2NR GROSS DESCRIPTION: The specimen, labeled "GR, colon polyp at 85 cm," is received in formalin and consists of two white soft tissue fragments that measure 0.1 cm in greatest dimension. The specimen is entirely submitted in cassette (A1). JS (under the direct supervision of a pathologist) The Gross Description was prepared using a voice recognition system. The report was reviewed for accuracy; however, sound-alike word errors, addition and/or deletions may occur. If there is any question about this report, please contact Client Services. PERFORMING LABORATORY: The technical component was performed by [facility], [address] [place] [address] (Dictating Transcribing Machine Servicer: Diana Mccracken MD; CLIA# [id number]). [facility], [address] [address] (CLIA# [id number]). Diagnostician: Stephanie Mckeon MD Pathologist Electronically Signed 01/15/2021 PATIENT NAME: PAULETTE BYRNES PATHOLOGY DATE OF : 56 REPORT #: [id number] PHYSICIAN: HALEY PATHOLOGY PCP: FEDERICO LOPEZ DO REPORT IS CONFIDENTIAL AND NOT TO BE RELEASED WITHOUT AUTHORIZATION [address] [address] Signed Copies: ~ PATIENT NAME: PAULETTE BYRNES PATHOLOGY DATE OF : 56 REPORT #: [id number] PHYSICIAN: HALEY PATHOLOGY PCP: FEDERICO LOPEZ DO REPORT IS CONFIDENTIAL AND NOT TO BE RELEASED WITHOUT AUTHORIZATION
== END 2021-01-14 09:30 | disposition home or self-care (01) ==
LOC: DS 06:30 → OPS 06:30 → DS 08:30 → OPS 08:30
PROVIDERS: ATTEND Colon & Rectal Surgery
PROC: 0DBE8ZX Excision of Large Intestine, Via Natural or Artificial Opening Endoscopic, Diagnostic (ICD-10-PCS; principal; 2021-01-14 08:30)
DX: Z12.11 Encounter for screening for malignant neoplasm of colon (principal); D12.6 Benign neoplasm of colon, unspecified; K57.30 Diverticulosis of large intestine without perforation or abscess without bleeding; E78.5 Hyperlipidemia, unspecified; I10 Essential (primary) hypertension; Z93.3 Colostomy status; Z85.048 Personal history of other malignant neoplasm of rectum, rectosigmoid junction, and anus; Z87.891 Personal history of nicotine dependence; Z88.5 Allergy status to narcotic agent; Z88.8 Allergy status to other drugs, medicaments and biological substances
CPT/HCPCS: 88305; J2704; J7121

== ENCOUNTER 2022-05-19 01:20 | Emergency (ER) | payer MEDICARE, OTHER, MEDICAID ==
[~2022-05-19] VITALS: Ht 160 cm; Wt 89.0 kg
[~2022-05-19 01:20] MED LIST changes: +FOLBIC RF TABL1 EACH PO; +TURMERIC500 M2 PO; +VITAMIN D3125 MCG PO
--- OUTSIDE RECORDS SUMMARY | 2022-05-19 01:22 | XMS ---
PreManage Notification: PAULETTE BYRNES Security Enterprise Resource Planning Consultant Events No recent Security Events currently on file CRITERIA MET - [facility] CARE PROVIDERS FEDERICO LOPEZ Internal Medicine 06/12/2019-Current PHONE: Unknown [facility] Current PHONE: Unknown Care Guidelines exist for the following facilities: [facility] ( 05/25/2019 ) Care History Medical/Surgical 08/27/2019 [facility] Spoke to patient regarding follow up appointment with Dr. Lopez.\T\nbsp; Patient stated she does not need it and has been thinking about changing doctors. 06/12/2019 [facility] - Patient is currently established with [facility]. If patient is seen in the ED during business hours. Please contact CHWs at [facility]. Care Recommendation: If this patient has had [...] providing care. E.D. VISIT COUNT (12 MO.) 1 KINDRA Rosales TOTAL 1 NOTE: Visits indicate total known visits. ED/UCC VISIT TRACKING (12 MO.) 05/19/2022 01:21 KINDRA Rowell [place] TYPE: Emergency COMPLAINT: - FLANK PAIN, VOMITING INPATIENT VISIT TRACKING (12 MO.) No inpatient visits to display in this time frame [email or web address]
[2022-05-19] MEDS ORDERED: AMOXICILLIN875 MG PO (01:40)
[2022-05-19] MEDS ORDERED: FAMOTIDINE20 MG PO (01:42)
[2022-05-19] MEDS ORDERED: MACROBID 100 M100 MG PO (01:43)
[2022-05-19] MEDS ORDERED: CEPHALEXIN500 MG PO (05:14)
== END 2022-05-19 06:16 | disposition home or self-care (01) ==
LOC: ED 01:20
DX: N39.0 Urinary tract infection, site not specified (principal); N20.0 Calculus of kidney; Z87.891 Personal history of nicotine dependence; Z88.8 Allergy status to other drugs, medicaments and biological substances; Z91.048 Other nonmedicinal substance allergy status; Z79.899 Other long term (current) drug therapy
CPT/HCPCS: 36415; 74176; 80053; 81001; 85025; 87088; J0696; J1885; J2405; J7030

== ENCOUNTER 2023-06-15 11:48 | Emergency (ER) | payer MEDICARE, OTHER ==
[~2023-06-15] VITALS: Ht 160 cm; Wt 95.5 kg
[~2023-06-15 11:48] MED LIST changes: +AMOXICILLIN875 MG PO; +CEPHALEXIN500 MG PO; +FAMOTIDINE20 MG PO; +MACROBID 100 M100 MG PO
--- OUTSIDE RECORDS SUMMARY | 2023-06-15 11:50 | XMS ---
PreManage Notification: PAULETTE BYRNES Security Switchboard Wirer Events No recent Security Events currently on file CRITERIA MET - [facility] CARE PROVIDERS FEDERICO LOPEZ Internal Medicine 06/12/2019-Current PHONE: Unknown [facility] Current PHONE: Unknown Care Guidelines exist for the following facilities: [facility] [place] ( 05/25/2019 ) Care History Medical/Surgical 08/27/2019 [facility] Spoke to patient regarding follow up appointment with Dr. Lopez.\T\nbsp; Patient stated she does not need it and has been thinking about changing doctors. 06/12/2019 [facility] - Patient is currently established with [facility]. If patient is seen in the ED during business hours. Please contact CHWs at [facility]. Care Recommendation: If this patient has [...] known visits. ED/UCC VISIT TRACKING (12 MO.) 06/15/2023 11:49 KINDRA Rowell [place] TYPE: Emergency COMPLAINT: - FALL, BOTH ARMS PAINFUL INPATIENT VISIT TRACKING (12 MO.) No inpatient visits to display in this time frame [email or web address]
[2023-06-15 13:11] VITALS: BP 146/77
== END 2023-06-15 13:13 | disposition home or self-care (01) ==
LOC: ED 11:48
DX: S63.502A Unspecified sprain of left wrist, initial encounter (principal); M79.631 Pain in right forearm; W01.0XXA Fall on same level from slipping, tripping and stumbling without subsequent striking against object, initial encounter; Z88.8 Allergy status to other drugs, medicaments and biological substances; Z91.09 Other allergy status, other than to drugs and biological substances
CPT/HCPCS: 73090; 73110; 99283-25

== ENCOUNTER 2024-01-01 09:55 | Emergency (ER) | payer MEDICARE, OTHER ==
[~2024-01-01] VITALS: Ht 160 cm; Wt 93.0 kg
[2024-01-01 10:23] LABS: BILIRUBIN, URINE NEGATIVE (negative); BLOOD/HGB, URINE SMALL (Negative); KETONE, URINE NEGATIVE (Negative); LEUK ESTERASE, URINE MODERATE (negative); NITRITE, URINE POSITIVE (negative); PH, URINE 6.5 (5-7)
[2024-01-01] MEDS ORDERED: ondansetron HCL 4 MG/2 ML VIAL IV ONE (10:30)
[2024-01-01] MEDS ORDERED: SODIUM CHLORIDE 0.9% 1,000 ML IV PRN (10:30)
[2024-01-01 10:31] LABS: BACTERIA, URINE 1+ /hpf (negative); CASTS, URINE NONE SEEN \\lpf; COLLECTION TYPE, URINE CLEAN CATCH; CRYSTALS, URINE NONE SEEN (0-1+); REFLEX CULTURE, URINE Yes (No); WHITE BLOOD CELLS, URINE >50 /HPF (0-5)
[2024-01-01 10:33] LABS: BASOPHILS 0.3 % (0-2); EOSINOPHILS 0.4 % (0-6); HEMOGLOBIN 11.4 g/dL (12.0-18.0); LYMPHOCYTES 3.7 % (24-44); MCH 25.8 (27-36); MCHC 32.4 g/dl (30-36); MCV 79.6 fl (81-99); MONOCYTES 3.2 % (0-12); NEUTROPHILS 92.4 % (39-80); PLATELET COUNT 430 K/uL (140-440); RDW 15.8 (10.5-15.0)
[2024-01-01 10:48] LABS: ALBUMIN/GLOBULIN RATIO 0.68 (1.1-2.4); ANION GAP 17.6 (7-21); BILIRUBIN, TOTAL 0.5 ng/dL (0.2-1.0); BUN/CREATININE RATIO 14.16 (6.0-28.6); CALCIUM 8.7 mg/dL (8.5-10.1); CREATININE, SERUM 1.2 mg/dL (0.55-1.02); POTASSIUM 4.6 mmol/L (3.5-5.1); PROTEIN, TOTAL 7.4 g/dL (6.4-8.2)
[2024-01-01] MEDS ORDERED: CEFTRIAXONE/SODIUM CHLORIDE 1 GM/100 ML PIGGYBACK IV ONE (11:30)
[2024-01-01] MEDS ORDERED: ACETAMINOPHEN 325 MG TAB PO ONE (12:00)
[2024-01-01] MEDS ORDERED: ONDANSETRON ODT4 MG PO (12:29)
[2024-01-01] MEDS ORDERED: BACTRIM DS TAB1 EACH PO (12:29)
[2024-01-01 12:41] VITALS: BP 140/66
== END 2024-01-01 12:40 | disposition home or self-care (01) ==
LOC: ED 09:55
PROVIDERS: Emergency Medicine
DX: N13.6 Pyonephrosis (principal); Z87.891 Personal history of nicotine dependence; Z88.8 Allergy status to other drugs, medicaments and biological substances; Z91.048 Other nonmedicinal substance allergy status; Z79.899 Other long term (current) drug therapy
CPT/HCPCS: 36415; 74177; 80053; 81001; 83690; 85025; 96361; 96375; 99284-25; A9270; J0696; J2405; J7030; Q9967

== ENCOUNTER 2024-05-24 07:28 | Day surgery (SDC) | payer MEDICARE, OTHER ==
[2024-05-17 11:23] VITALS: BP 141/77
[~2024-05-24] VITALS: Ht 160 cm; Wt 89.1 kg
[~2024-05-24 07:28] MED LIST changes: +B-122500 MC1 SL; +IBLOOD GLUCOSE TEST STRIP 1 EA TEST VI PRN; +LACTATED RINGER'S 1,000 ML IV SCH; +LIDOCAINE HCL 1% 5 ML SDV INJ ONE; +MIDAZOLAM HCL 5 MG/5 ML VIAL IV PRN; +NEURONTIN300 MG PO; +ONDANSETRON ODT4 MG PO; +VITAMIN D325 MC2 PO; +fentaNYL citrate 100 MCG/2 ML VIAL IV PRN
[2024-05-24 07:38] VITALS: BP 155/81
--- NOTE | 2024-05-24 07:56 | NUR ---
VISITED DURING SPIRITUAL CARE ROUNDS. PT IN OVERALL GOOD SPIRITS, NO IMMEDIATE NEEDS. TELEVISION MECHANIC PROVIDED SUPPORTIVE PRESENCE, HOSPITALITY, PRAYER. PT EXPRESSED GRATITUDE.
[2024-05-24] MEDS ORDERED: LIDOCAINE HCL 2% 5 ML SDV ONE (08:30)
[2024-05-24] MEDS ORDERED: propofoL 200 MG/20 ML VIAL ONE (08:30)
--- NOTE | 2024-05-24 09:10 | NUR ---
05/24/24 0910 Sarai Garrett HOB IS ELEVATED. WATER IS GIVEN. PATIENT IS DRINKING THAT AND TOLERATING IT WELL. DENTURE GIVEN AND PATIENT REPLACES.
[2024-05-24 09:29] VITALS: BP 143/89
--- NOTE | 2024-05-25 06:46 | OR ---
[facility] [place] [facility] [address] [place], [place] [address] Signed DATE OF OPERATION: 05/24/2024 SURGEON: Carlos Posada MD PREOPERATIVE DIAGNOSES: 1. Rectal cancer in 2016. 2. Personal history of hyperplastic and adenomatous colonic polyps. 3. Diverticulosis. POSTOPERATIVE DIAGNOSES: 1. Minimal diverticulosis. 2. 4 mm polyp at proximal transverse colon. 3. 4 mm polyps x2 at splenic flexure. PROCEDURE: Colonoscopy with hot biopsy. ESTIMATED BLOOD LOSS: None. INDICATIONS: Jenn is a 63-year-old female I first met in 2016 when she presented with perforated rectal cancer below the peritoneal reflection. I had to give her a colostomy. Dr. Ailyn Mcintyre and his colleague spend 11 hour helping her resect all that culminating in her abdominoperineal resection. She has had radiation and chemotherapy. She now has severe left-sided hydronephrosis and some mild right hydronephrosis and a parastomal hernia. She has been referred back to our urologist, Dr. Suri Land. We have also referred her to Dr. Tim Leung more than once for the parastomal hernia. She is having trouble getting a ride 3 hours down to [place] in that regard. Her sisters moved out of the area and her son is about 40 minutes away. I actually had to repair the parastomal hernia once for her bowel obstruction. She understands I closed it primarily and of course that recurred. We have had her back now multiple times including 2017, 2019, 2019, 2020 for followup colonoscopies. She has had hyperplastic and tubular adenomatous polyps removed. They have all been small. She does have some residual diverticulosis. She is now on the three year plan. She tells me everything is going well with respect to her bowel movements. In the office, I gave her a pamphlet on colonoscopy and of course she is well aware of colonoscopy at this point in her life. There is risk including, but not limited to gas bloating, crampy abdominal pain, bleeding, perforation requiring surgery, and missed diagnosis. We also reviewed the written instructions for the bowel prep line by line. She is very familiar with our Electronically Signed By: CARLOS POSADA MD 05/25/24 0646 PATIENT NAME: JENN BYRNES OPERATIVE REPORT DATE OF : 56 REPORT #: [id number] PHYSICIAN: CARLOS POSADA MD PCP: ZAHIDA CHRISTIANSON MD REPORT IS CONFIDENTIAL AND NOT TO BE RELEASED WITHOUT AUTHORIZATION [address] [address] Signed bowel prep and always does a good job. She has gained a lot of weight since her surgeries. She has a very full heavy face, chest and abdomen. She continues to smoke as well. We have always asked for monitored anesthesia care and it works out very well for her. She had expressed understanding and wished to proceed. She understands an adult person has to take her home afterwards. She told me her friend would help her in that regard. PROCEDURE IN DETAIL: Jenn was taken into our endoscopy suite and placed in the supine position. She was placed under monitored anesthesia care with propofol infusion per our nurse electric engine mechanic. We did not check her perineum on this occasion. We removed the top of her colostomy appliance. Her colostomy is quite pink and healthy. A digital rectal exam was done and this was unremarkable. We passed our adult colonoscope through and carefully around into the cecum. Her prep was quite excellent as always. We could easily see the appendiceal orifice and the ileocecal valve. The scope was then slowly withdrawn. She does have some diverticula scattered throughout the colon. They were moderate in size, few in number and scattered about. The three polyps mentioned above were easily removed with the help of hot biopsy forceps. After this, the gas was suctioned out and the colonoscope removed. Jenn tolerated the procedure quite well. RECOMMENDATIONS: I will see Jenn back in my office in 7 to 14 days to review her results. She will likely be on the three or five year rotation. Carlos Posada MD [facility]/MODL /[id number] cc: MD Carlos Davis MD Dr. Deborah Woodbury Electronically Signed By: CARLOS POSADA MD 05/25/24 0646 PATIENT NAME: JENN BYRNES OPERATIVE REPORT DATE OF : 56 REPORT #: [id number] PHYSICIAN: CARLOS POSADA MD PCP: ZAHIDA CHRISTIANSON MD REPORT IS CONFIDENTIAL AND NOT TO BE RELEASED WITHOUT AUTHORIZATION [address] [address] Signed Copies: AILYN MCINTYRE MD, ANDREW L MD ~ Electronically Signed By: CARLOS POSADA MD 05/25/24 0646 PATIENT NAME: JENN BYRNES OPERATIVE REPORT DATE OF : 56 REPORT #: [id number] PHYSICIAN: CARLOS POSADA MD PCP: ZAHIDA CHRISTIANSON MD REPORT IS CONFIDENTIAL AND NOT TO BE RELEASED WITHOUT AUTHORIZATION
--- NOTE | 2024-05-29 18:33 | PATH ---
[facility] [address] [place], [place] [address] Signed SPECIMEN(S): A PROXIMAL TRANSVERSE POLYP SPECIMEN(S): B SPLENIC FLEXURE POLYP SPECIMEN SOURCE: A. PROXIMAL TRANSVERSE POLYP B. SPLENIC FLEXURE POLYP v CLINICAL HISTORY: History of rectal CA, history of polyps, has colostomy. Post; polyps FINAL PATHOLOGIC DIAGNOSIS: A. Colon, proximal transverse, polyp, biopsy: - Tubular adenoma. B. Colon, splenic flexure, polyp, biopsy: - Multiple fragments of tubular adenoma. COMMENT: There is no evidence of high grade dysplasia or malignancy. TWK MICROSCOPIC EXAMINATION: Histologic sections of all submitted blocks are examined by light microscopy. These findings, together with the gross examination, support the pathologic diagnosis. GROSS DESCRIPTION: A. The specimen, labeled and designated "Ary Byrnes, proximal transverse polyp," is received in formalin and consists of one white soft tissue fragment, 0.3 cm. Entirely submitted in (A1). B. The specimen, labeled and designated "Ary Byrnes, splenic flexure polyp," is received in formalin and consists of four white soft tissue fragments, ranging from 0.2-0.3 cm. Entirely submitted in (B1). AB (under the direct supervision of a pathologist) The Gross Description was prepared using a voice recognition system. The report was reviewed for accuracy; however, sound-alike word errors, addition and/or deletions may occur. If there is any question about this report, please contact Client Services. ADDITIONAL NOTES: Immunohistochemical and/or in situ hybridization studies if performed in this PATIENT NAME: PAULETTE BYRNES PATHOLOGY DATE OF : 56 REPORT #: [id number] PHYSICIAN: HALEY JOHNSON PCP: ZAHIDA CHRISTIANSON MD REPORT IS CONFIDENTIAL AND NOT TO BE RELEASED WITHOUT AUTHORIZATION [address] [address] Signed case included appropriate positive controls that reacted as expected. This test was developed and its performance characteristics determined by [employer]. It has not been cleared or approved by the U.S. Food and Drug Administration. The FDA has determined that such clearance or approval is not necessary. This test is used for clinical purposes. It should not be regarded as investigational or for research. [employer] is certified under the Clinical Laboratory Improvement Amendments of 1988 (CLIA) as qualified to perform high complexity clinical laboratory testing. PERFORMING LABORATORY: Technical component was performed by [employer], [address] [place] [address] (CLIA# [id number]). Professional interpretation was performed by [facility], [address] [address] (CLIA#:[id number]). Diagnostician: Deny Tompkins MD Pathologist Electronically Signed 05/29/2024 Copies: ~ PATIENT NAME: PAULETTE BYRNES PATHOLOGY DATE OF : 56 REPORT #: [id number] PHYSICIAN: HALEY JOHNSON PCP: ZAHIDA CHRISTIANSON MD REPORT IS CONFIDENTIAL AND NOT TO BE RELEASED WITHOUT AUTHORIZATION
== END 2024-05-24 09:35 | disposition home or self-care (01) ==
LOC: DS 07:28
PROVIDERS: ATTEND Colon & Rectal Surgery
PROC: 0DBL8ZX Excision of Transverse Colon, Via Natural or Artificial Opening Endoscopic, Diagnostic (ICD-10-PCS; principal; 2024-05-24 08:45)
DX: D12.3 Benign neoplasm of transverse colon (principal); K57.30 Diverticulosis of large intestine without perforation or abscess without bleeding; E66.9 Obesity, unspecified; E78.5 Hyperlipidemia, unspecified; N32.81 Overactive bladder; C20 Malignant neoplasm of rectum; N13.30 Unspecified hydronephrosis; G62.9 Polyneuropathy, unspecified; Z68.35 Body mass index [BMI] 35.0-35.9, adult; Z79.899 Other long term (current) drug therapy; Z88.8 Allergy status to other drugs, medicaments and biological substances
CPT/HCPCS: 00811; 88305; J2003; J2704; J7121

== ENCOUNTER 2024-06-27 05:30 | Day surgery (SDC) | payer MEDICARE, OTHER ==
[2024-06-19 08:35] VITALS: BP 140/81
[~2024-06-27] VITALS: Ht 160 cm; Wt 90.5 kg
[~2024-06-27 05:30] MED LIST changes: -IBLOOD GLUCOSE TEST STRIP 1 EA TEST VI PRN; -LIDOCAINE HCL 1% 5 ML SDV INJ ONE; -MIDAZOLAM HCL 5 MG/5 ML VIAL IV PRN; -fentaNYL citrate 100 MCG/2 ML VIAL IV PRN
[2024-06-27 05:55] VITALS: BP 145/82
--- NOTE | 2024-06-27 06:13 | NUR ---
[place] WILL BE COMING.
[2024-06-27] MEDS ORDERED: iopamidoL 30 ML VIAL ONE ×2 (06:50→08:15)
[2024-06-27] MEDS ORDERED: IBLOOD GLUCOSE TEST STRIP 1 EA TEST VI PRN (07:00)
[2024-06-27] MEDS ORDERED: CEFAZOLIN SODIUM 2 GM/20 ML SYR IV SCH (07:00)
[2024-06-27] MEDS ORDERED: LIDOCAINE HCL 1% 5 ML SDV INJ ONE (07:00)
--- NOTE | 2024-06-27 07:09 | NUR ---
IN TO SEE PT.UP TO BR.
[2024-06-27] MEDS ORDERED: dexmedeTOMIDine HCl 200 MCG/2 ML VIAL ONE (07:14)
[2024-06-27] MEDS ORDERED: DEXAMETHASONE SOD PHOS 4 MG/ML VIAL ONE (07:14)
[2024-06-27] MEDS ORDERED: fentaNYL citrate 100 MCG/2 ML VIAL ONE (07:14)
[2024-06-27] MEDS ORDERED: MAGNESIUM SULFATE 1 GM/2 ML VIAL ONE (07:14)
[2024-06-27] MEDS ORDERED: ondansetron HCL 4 MG/2 ML VIAL ONE (07:14)
[2024-06-27] MEDS ORDERED: LIDOCAINE HCL 2% 5 ML SDV ONE (07:15)
[2024-06-27] MEDS ORDERED: ACETAMINOPHEN 1,000 MG/100 ML VIAL ONE (07:15)
[2024-06-27] MEDS ORDERED: HYDROmorphone HCL 1 MG/ML SYR IV PRN (07:45)
[2024-06-27] MEDS ORDERED: OXYCODONE/APAP 5/325 TAB PO PRN (07:45)
[2024-06-27] MEDS ORDERED: KETOROLAC TROMETHAMINE 15 MG/ML VIAL IV PRN (07:45)
[2024-06-27] MEDS ORDERED: ondansetron HCL 4 MG/2 ML VIAL IV PRN (07:45)
[2024-06-27] MEDS ORDERED: ePHEDrine sulfate 50 MG/ML AMP ONE (08:26)
[2024-06-27] MEDS ORDERED: SEVOFLURANE 250 ML BTL INH ONE (09:31)
--- NOTE | 2024-06-27 09:44 | NUR ---
[facility] SLEEPY. 0925 PT AWAKE AND C/O NAUSEA. SITTING UP IN BED WITH BIO HOOP BAG. 35 NAUSEA PASSED AND SIPPING ON WATER. O2 SATS DROPPED TO 88% ON RA. ENCOURAGED COUGH, DEEP BREATHING WITH NO CHANGE. O2 @ 2L PLACED. SATS INCREASED TO 92-98%. PT'S DENTURE AND GLASSES RETURNED.
[2024-06-27 09:50] VITALS: BP 125/67
--- NOTE | 2024-06-27 09:56 | NUR ---
CALL LIGHT WATER AND CRACKERS AND JELLO GIVEN. DENIES ANY NEEDS.
[2024-06-27 10:49] VITALS: BP 134/70
--- NOTE | 2024-06-27 10:50 | NUR ---
1040 TO 1050 OFF O2 SATS STAYS AT 94 TO 96 % ON RA.
--- NOTE | 2024-06-27 14:25 | NUR ---
1105 HAS AMB TO BR VOIDS 300MLS PINKISH URINE. DENIES PAIN LALO TO GO HOME.
== END 2024-06-27 11:05 | disposition home or self-care (01) ==
LOC: DS 05:30
PROVIDERS: ATTEND Urology
PROC: 0T778DZ Dilation of Left Ureter with Intraluminal Device, Via Natural or Artificial Opening Endoscopic (ICD-10-PCS; principal; 2024-06-27 07:30)
PROC: BT14ZZZ Fluoroscopy of Kidneys, Ureters and Bladder (ICD-10-PCS; 2024-06-27 07:30)
DX: N13.1 Hydronephrosis with ureteral stricture, not elsewhere classified (principal); N13.5 Crossing vessel and stricture of ureter without hydronephrosis; N36.42 Intrinsic sphincter deficiency (ISD); N32.81 Overactive bladder; E78.5 Hyperlipidemia, unspecified; Z79.899 Other long term (current) drug therapy; Z88.8 Allergy status to other drugs, medicaments and biological substances
CPT/HCPCS: 00910; 74420; C1726; C1769; C2617; J0131; J0690; J1100; J2003; J2405; J3010; J3475; J7121; Q9967

== ENCOUNTER 2024-07-28 08:32 | Emergency (ER) | payer MEDICARE, OTHER ==
[~2024-07-28] VITALS: Ht 160 cm; Wt 88.9 kg
[~2024-07-28 08:32] MED LIST changes: -LACTATED RINGER'S 1,000 ML IV SCH
[2024-07-28] MEDS ORDERED: KETOROLAC TROMETHAMINE 15 MG/ML VIAL IV ONE (08:45)
[2024-07-28 08:53] LABS: BILIRUBIN, URINE NEGATIVE (negative); BLOOD/HGB, URINE LARGE (Negative); KETONE, URINE NEGATIVE (Negative); LEUK ESTERASE, URINE TRACE (negative); NITRITE, URINE NEGATIVE (negative); PH, URINE 5.5 (5-7)
[2024-07-28 08:58] LABS: BASOPHILS 0.8 % (0-2); EOSINOPHILS 4.2 % (0-6); HEMATOCRIT 38.9 % (35.0-50.0); HEMOGLOBIN 12.4 g/dL (12.0-18.0); LYMPHOCYTES 15.7 % (24-44); MCH 25.3 (27-36); MCHC 31.9 g/dl (30-36); MCV 79.2 fl (81-99); MONOCYTES 5.9 % (0-12); NEUTROPHILS 73.4 % (39-80); PLATELET COUNT 360 K/uL (140-440); RBC 4.92 M/ul (4.3-5.7); RDW 17.3 (10.5-15.0)
[2024-07-28 09:14] LABS: ALBUMIN 3.2 g/dL (3.4-5.0); ALBUMIN/GLOBULIN RATIO 0.82 (1.1-2.4); BILIRUBIN, TOTAL 0.3 ng/dL (0.2-1.0); BUN/CREATININE RATIO 18.48 (6.0-28.6); CALCIUM 8.7 mg/dL (8.5-10.1); CREATININE, SERUM 1.19 mg/dL (0.55-1.02); PROTEIN, TOTAL 7.1 g/dL (6.4-8.2)
[2024-07-28 09:19] LABS: WHITE BLOOD CELLS, URINE 21-40 /HPF (0-5)
[2024-07-28 09:20] LABS: BACTERIA, URINE 1+ /hpf (negative); CASTS, URINE NONE SEEN \\lpf; COLLECTION TYPE, URINE CLEAN CATCH; CRYSTALS, URINE NONE SEEN (0-1+); REFLEX CULTURE, URINE Yes (No)
[2024-07-28] MEDS ORDERED: ACETAMINOPHEN 500 MG TAB PO ONE (11:45)
[2024-07-28 12:28] VITALS: BP 160/74
== END 2024-07-28 12:31 | disposition home or self-care (01) ==
LOC: ED 08:32
PROVIDERS: Emergency Medicine
DX: R10.9 Unspecified abdominal pain (principal); Z87.891 Personal history of nicotine dependence; Z88.8 Allergy status to other drugs, medicaments and biological substances; Z91.09 Other allergy status, other than to drugs and biological substances; Z79.899 Other long term (current) drug therapy
CPT/HCPCS: 36415; 74178; 80053; 81001; 85025; 87077; 87088; 96374; 99284-25; A9270; J1885; Q9967

== ENCOUNTER 2025-03-16 09:54 | Inpatient (IN) | payer MEDICARE, OTHER ==
[~2025-03-16] VITALS: Ht 160 cm; Wt 85.4 kg
--- NOTE | ~2025-03-16 | DS ---
[facility] [address], [place] [address] Draft ADMISSION DATE: 03/16/2025 DISCHARGE DATE: 03/20/2025 REASON FOR ADMISSION: Small bowel obstruction. HISTORY OF PRESENT ILLNESS: This 64-year-old white woman is a patient Dr. Christianson and presents to the emergency room with complaints of abdominal pain and some of it in the right lower abdomen. She has a past medical history of rectal cancer identified by Dr. Marty Thacker and referred to [facility] for definitive management following chemoradiation therapy ultimately involving an abdominoperineal resection with end colostomy. This was in 2016. She has had no evidence of recurrent disease. She did have neoadjuvant chemoradiation therapy as previously noted. The patient has had a small bowel obstruction in the past managed by Dr. Thacker and though I do not see an actual operative intervention, she did note some operation was performed. The patient has developed a left parastomal hernia in association with the end colostomy and has been evaluated for repair of that. Indeed, she has seen a surgeon at [facility] who has plans to repair the abnormality after she has cardiology evaluation, which is planned for April. The patient's vague abdominal pain earlier in the day prompted visitation to the ER where she was evaluated by Dr. Rupert Mcmullen. A CT scan performed showed what was a complex parastomal hernia in the left lower abdomen and "high-grade small bowel obstruction with transition point" in the right lower abdomen, the site of prior small bowel anastomosis. She has long-standing and well documented severe left hydronephrosis with a proximal dilated left ureter without visualization of stone. She has been evaluated by Dr. Suri Land for this. On the basis of her presumed high-grade right lower abdominal bowel obstruction, she is admitted for further evaluation and care. PERTINENT PHYSICAL EXAMINATION: GENERAL: Showed an obese white woman with a BMI of 33.9, accompanied by her adult son. HEENT: Mucous membranes were moist. Trachea midline. CHEST: Clear. HEART: Regular without murmur. ABDOMEN: Obese. There is a dome like hernia associated with left colonic and colostomy with no focal tenderness. There are no clinical hernias detected elsewhere. CT scan that was performed showed more than one abdominal wall hernia. The dominant one being a left wall parastomal hernia. Hydronephrosis on the left was noted as well. HOSPITAL COURSE: PATIENT NAME: PAULETTE BYRNES DISCHARGE SUMMARY DATE OF : 56 REPORT #: [id number] PHYSICIAN: ZOHRA COLLIER MD PCP: ZAHIDA CHRISTIANSON MD REPORT IS CONFIDENTIAL AND NOT TO BE RELEASED WITHOUT AUTHORIZATION [facility] [address], [place] [address] Draft She was given a nasogastric tube for nasogastric tube decompression, which did show decompression of bilious fluid. IV fluids were administered and she had some appearance of egress from her ostomy that signaled improvement. Mild obstructive signs were noted on abdominal KUB performed the following day. She had progressive improvement and given her ambiguous clinical exam, a surgeon small-bowel follow-through was performed via nasogastric tube two days prior to discharge. This showed complete passage of enteric contents through the GI tract and into the ostomy itself showing no evidence of obstruction. Her nasogastric tube was removed. She was begun on a clear liquid diet and advanced to a regular diet, which she tolerated. She is discharged home after that, doing well. Going forward, she will need to still follow through with a cardiology evaluation and should check in with Dr. Christianson as she does have some untreated hypertension. Systolic pressure is 169 typically while in the hospital. As regards to repair of the hernia, I would consider fixing it locally if she desires it, but only after cardiac evaluation is complete. DISCHARGE MEDICATIONS: Will include: 1. Potassium chloride 20 mEq p.o. daily. 2. Tylenol Extra Strength 1000 mg p.o. q.6 hours as needed for pain. 3. Myrbetriq 50 mg p.o. at bedtime. 4. Gabapentin 800 mg two tablets p.o. at bedtime and 300 mg p.o. daily, otherwise. 5. Tumeric root extract daily. 6. Pantoprazole 40 mg p.o. daily. 7. Atrovent inhaler 1-2 puffs q.6 hours as needed for wheezing. 8. Magnesium 250 mg p.o. daily. 9. Multivitamin one p.o. daily. 10. Oxybutynin 15 mg p.o. daily. 11. Nystatin powder applied topically b.i.d. as needed. 12. Bupropion XL 450 mg daily. 13. Pepcid 20 mg p.o. at bedtime. 14. Lamotrigine 100 mg p.o. daily. DISCHARGE DIAGNOSES: 1. Small bowel obstruction. Focal transition right lower abdomen, possibly related to prior bowel resection. Documentation of such resection lacking currently. 2. History of abdominoperineal resection for rectal cancer in 2017 with end colostomy and now parastomal hernia. 3. Reactive airway disease, probable chronic obstructive pulmonary disease. 4. Hypertension. PATIENT NAME: PAULETTE BYRNES DISCHARGE SUMMARY DATE OF : 56 REPORT #: [id number] PHYSICIAN: ZOHRA COLLIER MD PCP: ZAHIDA CHRISTIANSON MD REPORT IS CONFIDENTIAL AND NOT TO BE RELEASED WITHOUT AUTHORIZATION [facility] [address] [place] [address] Draft 5. Gastroesophageal reflux. MD FAUSTO Eddy/LILIANA /[id number] cc: Dr. Kemi Christianson Copies: ~ PATIENT NAME: PAULETTE BYRNES DISCHARGE SUMMARY DATE OF : 56 REPORT #: [id number] PHYSICIAN: ZOHRA COLLIER MD PCP: ZAHIDA CHRISTIANSON MD REPORT IS CONFIDENTIAL AND NOT TO BE RELEASED WITHOUT AUTHORIZATION
[~2025-03-16 09:54] MED LIST changes: +ATROVENT HFA12.9 GM INH; +MULTIPLE VITAM1 EAC2 PO; +OMEPRAZOLE20 MG PO; +OXYBUTYNIN CHLO15 MG PO; +PANTOPRAZOLE SO40 MG PO
[2025-03-16] MEDS ORDERED: NYSTATIN15 G1 TOP (10:17)
[2025-03-16 10:23] LABS: BASOPHILS 0.7 % (0.1-1.2); EOSINOPHILS 4.0 % (0.7-5.8); LYMPHOCYTES 22.9 % (19.3-51.7); MCH 24.5 PG (25.6-32.2); MCHC 30.0 g/dL (32.2-35.5); MCV 81.6 fL (79.4-94.8); MONOCYTES 6.2 % (4.7-12.5); NEUTROPHILS 65.9 % (34.0-71.1); RBC 5.11 M/uL (3.93-5.22)
[2025-03-16 10:37] LABS: ALT (SGPT) 37.0 U/L (14-59); AST (SGOT) 23.0 U/L (15-37); GLOMERULAR FILTRATION RATE,EST 73.0 mL/min (>60); PROTEIN, TOTAL 7.9 g/dL (6.4-8.2); UREA NITROGEN 12.0 mg/dL (7-18)
[2025-03-16 10:38] LABS: BLOOD/HGB, URINE NEGATIVE (Negative); KETONE, URINE NEGATIVE (Negative); LEUK ESTERASE, URINE NEGATIVE (negative); NITRITE, URINE NEGATIVE (negative)
[2025-03-16] MEDS ORDERED: MORPHINE SULFATE 4 MG/ML VIAL IV ONE ×2 (12:30→16:15)
[2025-03-16] MEDS ORDERED: LIDOCAINE 2% (VISCOUS) HCL 15 ML UDC MT ONE (12:45)
[2025-03-16] MEDS ORDERED: LACTATED RINGER'S 1,000 ML IV PRN (12:45)
[2025-03-16] MEDS ORDERED: LORazepam 2 MG/ML VIAL IV ONE (13:00)
[2025-03-16] MEDS ORDERED: FAMOTIDINE 20 MG/ 2 ML VIAL IV ONE (13:00)
[2025-03-16] MEDS ORDERED: PIPERACILLIN/TAZOBACTAM 4.5 GM in SODIUM CHLORIDE 0.9% 100 ML IV ONE (13:00)
[2025-03-16] MEDS ORDERED: LACTATED RINGER'S 1,000 ML IV SCH ×2 (13:00→16:45)
[2025-03-16] MEDS ORDERED: buPROPion HCL XL 150 MG TAB.XL.24H PO SCH (14:00)
[2025-03-16] MEDS ORDERED: KETOROLAC TROMETHAMINE 30 MG/ML VIAL IV PRN (16:45)
[2025-03-16] MEDS ORDERED: PROCHLORPERAZINE EDISYLATE 10 MG/2 ML VIAL IV PRN (16:45)
[2025-03-16] MEDS ORDERED: MORPHINE SULFATE 10 MG/ML VIAL IV PRN (16:45)
[2025-03-16 18:21] VITALS: BP 158/74
--- NOTE | 2025-03-16 19:01 | NUR ---
GOT REPORT FOR DAY SHIFT NURSE. PATIENT PLAYING ON PHONE, SON IN ROOM. NG UP TO SUCTION. PATIENT HAS NPO SIGN ON DOOR. OXYGEN AT 2L NC. BED IN LOW POSITION.
[2025-03-16 19:16] VITALS: BP 158/74
--- NOTE | 2025-03-16 19:32 | NUR ---
PATIENT IS LAYING IN BED. AMY CARE WAS DONE AND A PUREWICK WAS PLACED. BRIEF WAS DRY. PATIENT WAS PROVIDED WITH A WARM WASH CLOTH. PATIENT DECLINED TO BRUSH TEETH RIGHT NOW STATED SHE WOULD LATER AND WOULD CALL WHEN READY. PATIENTS CALL LIGHT IS WTIHIN REACH AND NO FUTHER NEEDS AT THIS TIME.
[2025-03-16 20:26] VITALS: BP 132/68
--- NOTE | 2025-03-16 20:30 | NUR ---
PATIENT IS LAYING IN BED. PATIENTS BRIEF WAS CHECKED AND DRY. PATIENTS VITAL SIGNS WERE DONE. PATIENTS CALL LIGHT IS WITHIN REACH AND NO FURTHER NEEDS AT THIS TIME.
[2025-03-16] MEDS ORDERED: phenoL 177 ML SPRAY MT PRN (21:00)
[2025-03-16] MEDS ORDERED: FAMOTIDINE 20 MG/ 2 ML VIAL IV SCH (21:00)
--- NOTE | 2025-03-16 21:01 | NUR ---
PATIENT SITTING UP IN BED ON HER LAPTOP. STAYES SHE IS ABLE TO HANDLE PAIN BUT WHEN I COME TO DO HER OTHER MEDICATION TO BRING HER SOMETHING TO STAY ON TOP OF IT.SHE WANTS A LOW DOSE. DENIES ANY OTHER NEEDS.
[2025-03-16] MEDS ORDERED: IPRATROPIUM BROMIDE 2.5 ML VIAL INH PRN (21:15)
[2025-03-16] MEDS ORDERED: ALBUTEROL SULFATE 0.083% 3 ML VIAL INH PRN (21:15)
--- NOTE | 2025-03-16 21:51 | NUR ---
PATIENT C/O THROAT HURTING. THROAT SPRAY ORDERED BY CHARGE. PATIENT THANKFUL FOR THIS. TORADOL GIVEN PATIENT HAS SLIGHT PAIN. IV FLUIDS RUNNING. PUREWICK IN PLACE. NG HOOKED TO SUCTION. BED IN LOW POSITION. PATIENT PLAYING GAMES ON HER LAPTOP. NPO.
[2025-03-16] MEDS ORDERED: CEFAZOLIN SODIUM 2 GM/20 ML SYR IV SCH (22:00)
[2025-03-16 22:01] VITALS: BP 132/68
--- NOTE | 2025-03-16 23:59 | NUR ---
PATIENT GIVEN A SLEEP MASK TO HELP SLEEP. SHE WAS GIVEN A QUITE BOX.
[2025-03-17] VITALS (7 sets, daily range): BP systolic 135–149; BP diastolic 65–77
--- NOTE | 2025-03-17 01:35 | NUR ---
RECEIVED REPORT FROM [facility]. PT RESTING IN BED WITH EYES CLOSED, NG TUBE IN PLACE, TO LIS. EYE MASK ON PATIENT SLEEPING. IV FLUIDS INFUSING ORDERED. RESPIRATIONS EVEN/UNLABORED. THIS RN ALLOWS PT TO SLEEP AT THIS TIME, CALL LIGHT WITHIN REACH.
--- NOTE | 2025-03-17 03:23 | NUR ---
PT CALL LIGHT ON THIS MORNING, REQUESTING SOME CHLORASEPTIC SPRAY FOR SORE THROAT. PATIENT DENIES PAIN TO ABDOMEN, FEELS LESS DISTENDED AND PATIENT REPORTS FEELS LESS DISTENDED. NG REMAINS IN PLACE AT THIS TIME. DENIES NAUSEA. IV FLUIDS INFUSING, CLEARED PUMP. PT LEFT WATCHING TV, CALL LIGHT WITHIN REACH. ALL PT CARE NEEDS MET.
[2025-03-17 05:44] LABS: ALT (SGPT) 23.0 U/L (14-59); AST (SGOT) 30.0 U/L (15-37); GLOMERULAR FILTRATION RATE,EST 92.0 mL/min (>60); PROTEIN, TOTAL 5.7 g/dL (6.4-8.2); UREA NITROGEN 13.0 mg/dL (7-18)
[2025-03-17 06:00] LABS: BASOPHILS 0.7 % (0.1-1.2); EOSINOPHILS 4.9 % (0.7-5.8); LYMPHOCYTES 17.7 % (19.3-51.7); MCH 24.7 PG (25.6-32.2); MCHC 30.1 g/dL (32.2-35.5); MCV 81.9 fL (79.4-94.8); MONOCYTES 6.0 % (4.7-12.5); NEUTROPHILS 70.5 % (34.0-71.1); RBC 4.42 M/uL (3.93-5.22)
--- NOTE | 2025-03-17 06:00 | NUR ---
PATIENT SITTING ON THE SIDE OF THE BED. PATIENTS VITAL SIGNS AND I&OS WERE DONE. PATIENTS CALL LIGHT IS WITHIN REACH AND NO FURTHER NEEDS AT THIS TIME.
--- NOTE | 2025-03-17 06:51 | NUR ---
PT SITTIN UP IN BED, NG OUTPUT WAS ABOUT 250ML IN THE CANISTER, DOCUMENTED. PT C/O SORE THROAT PRN MEDS GIVEN AGAIN - SEE SEP. XL STOOL, FORMED PER PATIENT. PT DENIES NAUSEA. IV ABX INFUSED, IV FLUIDS INFUSING. PT DENIES ANY OTHER NEEDS AT THIS TIME, ENCOURAGED TO AMBULATE THE HALLS TODAY. CALL LIGHT WITHIN REACH.
--- NOTE | 2025-03-17 09:32 | NUR ---
Patient awake in bed, alert and oriented x3, no acute distress. Patient reports feeling much better this morning, she denies nausea. Per pt, abdominal pain is 2/10, minimal distension noted. NG to LIWS, notable dark green gastric content noted. Hypoactive bowel tones noted. Patient has son at bedside visiting. Call light within reach.
--- NOTE | 2025-03-17 10:40 | NUR ---
PT TOOK OFF HER O2 - SHE SAID HER NOSE WAS RUNNING AND SHE DOES NOT WEAR IT AT HOME. VITALS WERE TAKEN WITH ROOM AIR. VISITOR IN ROOM, CALL LIGHT WITHIN REACH.
--- NOTE | 2025-03-17 10:42 | NUR ---
PT CURRENTLY IS USING THE COMMODE AND NOT THE PUREWICK TO URINATE.
--- NOTE | 2025-03-17 12:40 | NUR ---
Patient ambulated x2 laps in hallway, tolerated ambulation well. Patient back to bed, NG back to LI. Patient continues to deny nausea, tolerable pain at this time.
--- NOTE | 2025-03-17 12:54 | HP ---
[facility] [address], [place] [address] Signed ADMISSION DATE: 03/16/2025 REASON FOR ADMISSION: Small bowel obstruction with longstanding known parastomal colostomy hernia and other abdominal wall hernias. HISTORY: This 64-year-old white woman presents to the emergency room and was evaluated by Dr. Peoples. She had complaints of vague abdominal pain, some of that in the right lower abdomen. She has a past medical history of a rectal cancer identified by Dr. Thacker and referred to [facility] for definitive management following chemoradiation therapy which ultimately included abdominoperineal resection with end colostomy. This was in about 2016. She has had no evidence of recurrent disease. She did have neoadjuvant chemoradiation therapy prior to resection, it is noted. The patient has had a small bowel obstruction in the past, managed by Dr. Thacker according to the patient. Review of medical records shows that she presented in 2018 where she was evaluated showing an increase in the size of the left lower quadrant parastomal hernia. There has been a recommendation of a plan for repair of the parastomal hernia by a surgeon at [facility] but as yet has not been undertaken. There were small bowel loops within the parastomal hernia at that time with dilation and so forth. I am currently unable to locate any operative report related to that timeframe for which small bowel obstruction was undertaken. Note is made of a May 26, 2019 "laparotomy with repair of parastomal hernia" which may have been from elsewhere. The patient had vague abdominal pain earlier today prompting her presentation to the emergency room where she was evaluated by Dr. Peoples. She did not have protracted nausea and vomiting or anything of that sort. However, a CT scan was performed which showed somewhat complex parastomal hernia in the left lower abdomen and a "high-grade small bowel obstruction with transition point" in the right lower abdomen at the site of the small bowel anastomosis and severe left hydronephrosis with proximal dilated left ureter without visualized stone and nonvisualization of the distal left ureter. She has undergone urologic evaluation for the same in the past from notes I have reviewed. A renal nuclear scan was performed in October of this year which showed left partial renal obstruction and normal right renal function and the persistent function of the left kidney, nevertheless. PAST MEDICAL HISTORY: In addition to the rectal cancer and its attendant treatment includes anxiety disorder. Electronically Signed By: ZOHRA COLLIER MD 03/17/25 1254 PATIENT NAME: PAULETTE BYRNES HISTORY AND PHYSICAL DATE OF : 56 REPORT #: [id number] PHYSICIAN: ZOHRA COLLIER MD PCP: JO CHRISTIANSON MD REPORT IS CONFIDENTIAL AND NOT TO BE RELEASED WITHOUT AUTHORIZATION [facility] [address], [place] [address] Signed MEDICATIONS: Her medicines at presentation include: 1. Nystatin topical. 2. Tylenol Extra Strength. 3. Bupropion. 4. Lamictal. 5. Gabapentin. 6. Pantoprazole. 7. Multivitamin. 8. Magnesium supplement. 9. Oxybutynin. 10. Gabapentin. 11. Potassium chloride. 12. Mirabegron (Myrbetriq) 1 p.o. daily. REVIEW OF SYSTEMS: She denies any severe abdominal pain at this time. She has some vague lower abdominal pain on the right side. She has no shortness of breath. PHYSICAL EXAMINATION: GENERAL: Somewhat obese, BMI 33.9, white woman, accompanied by her adult son. HEENT: Mucous membranes are reasonably moist. NECK: Trachea is midline. CHEST: Clear. HEART: Regular. ABDOMEN: Somewhat obese. There is a dome-like hernia associated with her left colonic colostomy. There is no focal tenderness. I do not detect hernias elsewhere. LABORATORY STUDIES: Show a white count of 6.93, hematocrit 41.7, platelets 351,000. Chem profile essentially normal. Glucose 114, lactic acid was 2.2 at presentation, alkaline phosphatase 155, lipase 33. Urinalysis, essentially normal. IMAGING DATA: Review of her chest x-ray showed a nasogastric tube with the tip in the stomach. CT scan performed antecedent to that certainly shows enteric contrast in bowel loops in the subcutaneous space associated with the left abdominal wall parastomal hernia. Stomach was dilated with fluid, and nasogastric tube was ultimately placed. Liver and spleen appeared normal. Left significant hydronephrosis is noted. Small bowel loops are somewhat dilated, but many of them are completely decompressed. There appears to be a midline incisional hernia with small knuckle of bowel within it which may or may not Electronically Signed By: ZOHRA COLLIER MD 03/17/25 1254 PATIENT NAME: PAULETTE BYRNES HISTORY AND PHYSICAL DATE OF : 56 REPORT #: [id number] PHYSICIAN: ZOHRA COLLIER MD PCP: JO CHRISTIANSON MD REPORT IS CONFIDENTIAL AND NOT TO BE RELEASED WITHOUT AUTHORIZATION [address] [address] Signed contribute to her obstructive pattern currently. There is significant bowel loop through a separate fascial defect inferior to this with mesentery protruding through the area. This appears likely associated with her left-sided colostomy. ASSESSMENT: She has a parastomal hernia with small bowel loops adjacent to the end colostomy as well as a separate hernia more proximally. I am not entirely sure if the transition point is for her bowel obstruction currently, and the mention by a radiologist of near intraabdominal anastomosis is somewhat uncertain to me as well. She is admitted at this time to undergo nasogastric tube decompression of her GI tract, IV fluid administration, and additional monitoring and possibly imaging studies depending on her progress. Zohra Collier MD /RIMAL /[id number] cc: [facility] Tere Landeros MD Copies: TERE LANDEROS MD ~ Electronically Signed By: ZOHRA COLLIER MD 03/17/25 1254 PATIENT NAME: PAULETTE BYRNES HISTORY AND PHYSICAL DATE OF : 56 REPORT #: [id number] PHYSICIAN: ZOHRA COLLIER MD PCP: JO CHRISTIANSON MD REPORT IS CONFIDENTIAL AND NOT TO BE RELEASED WITHOUT AUTHORIZATION
[2025-03-17] MEDS ORDERED: lamoTRIgine 25 MG TAB PO SCH (12:58)
--- NOTE | 2025-03-17 13:02 | NUR ---
At the request of the Primary RN for this pt, I asked Dr. Brewster if he would consider restarting the pt's home mood stabilizers. He started the ones he chose to start and advised we need to clamp the NGT for one hour after administering the meds by mouth.
--- NOTE | 2025-03-17 14:25 | NUR ---
PO meds admin per order, NG clamped.
[2025-03-17] MEDS ORDERED: BUPROPION XL450 MG PO (15:57)
[2025-03-17] MEDS ORDERED: FAMOTIDINE20 MG PO (15:58)
--- NOTE | 2025-03-17 17:21 | NUR ---
RECIEVED REPORT FROM JAY JAY. PATIENT IS SLEEPING WITH TV ON, DID NOT AWAKEN WHEN THIS RN ENTERED ROOM. PT RESP EVEN/UNLABORED, PT ALLOWED TO REST AT THIS TIME. IV FLUIDS INFUSING. CALL LIGHT WITHIN REACH.
--- NOTE | 2025-03-17 18:09 | NUR ---
PT CLEANED OUT HER COLOSTOMY BAG. I CHANGED LINENS, GOT 1/3 CUP WATER REMIDED HER TO SIP ONLY, DIRECTED BY NURSE. CALL LIGHT WITHIN REACH, PT REPORTED NEEDING NOITHING MORE AT THIS TIME.
--- NOTE | 2025-03-17 19:45 | NUR ---
PATIENT CALLED TO USE THE BATHROOM. SBA TO BEDSIDE COMMODE TO VOID 300ML CLEAR YELLOW URINE. FRESH PULL UP PROVIDED. PATIENT IS SITTING AT THE EDGE OF THE BED STATING I WILL SIT HERE FOR NOW, IM TIRED OF LAYING DOWN. CALL LIGHT AND SIDE TABLE WITHIN REACH. PATIENT HAS NGT ON AND IV RUNNING.
[2025-03-17] MEDS ORDERED: GABAPENTIN 400 MG CAP PO SCH (21:00)
--- NOTE | 2025-03-17 21:46 | NUR ---
Pt awake, alert and oriented to all, semi independent in room. lungs clear seth t bases, denies sob with exertion, cooperative with vitals and assessments. NPO x with sips of clear for comfort. NGT will be clamped for 1 hour as she got po meds as per orders. NGT R nare patent to LIWS draining brown colored drainage diluted by clear fluid intake by pt. abd large soft, YOLY. L stoma in place, umbilical area slightly red, cleansed with alcohol swabs. IVF infusing w/o problems LW. c/o abd pain and throat pain, medicated with Toradol 30mg IV. Pt repositions self in bed. HOB elevated RT in room assesseing home CPAP.
--- NOTE | 2025-03-17 22:35 | NUR ---
ngt was clamped for one hour after taking po meds as per orders . NGT back to ROBBI, patent. pt denies any c/o pian. using CPAP
--- NOTE | 2025-03-17 23:15 | NUR ---
RESTING, EYES CLOSED, NGT TO LIWS.USING HOME CPAP
[2025-03-18] VITALS (10 sets, daily range): BP systolic 150–167; BP diastolic 69–82
--- NOTE | 2025-03-18 00:25 | NUR ---
PATIENT UP TO BEDSIDE COMMODE TO VOID 700ML AND UNMEASURED ON PULL UPS AND ON THE FLOOR. FRESH PULL UPS PROVIDED. FRESH CHUX AND NEW DRAW SHEET PLACED. PATIENT IS BACK IN BED. FLOOR WIPED WITH PURPLE WIPES. NO FURTHER NEEDS AT THIS TIME.
--- NOTE | 2025-03-18 02:24 | NUR ---
RESTING, EYES CLOSED, USING CPAP, REPOSITIONS SELF IN BED, NO S/SX DISTRESS
[2025-03-18] MEDS ORDERED: GABAPENTIN 300 MG CAP PO SCH (06:00)
--- NOTE | 2025-03-18 06:06 | NUR ---
awake, up in chair, on room air at this time. lungs dim at bases. R negar BOYKIN patent to ROBBI. IVF infusing w/o problems. no c/o pain at this time. takes care of own stoma. In reclainer chair. legs elevated.
--- NOTE | 2025-03-18 07:08 | NUR ---
Pt NGT was clamped after po meds for one hour, back to LIWS, patent. draining light brown colored drainage. tolerating small amounts of clear liquids. No c/o pain, in chair, Room air, IVF infusing w/o problems. Pleasntand cooperative, legs elevated for comofrt. watching tv and playing with personal computer.
--- NOTE | 2025-03-18 07:40 | NUR ---
PT RESTING EYES CLOSED IN RECLINER AT TIME OF SHIFT REPORT, LEFT UNDISTURBED. CALL LIGHT AND NEEDED ITEMS IN REACH.
[2025-03-18] MEDS ORDERED: LAMOTRIGINE100 MG PO (09:16)
--- NOTE | 2025-03-18 10:12 | NUR ---
INTO SEE PATIENT. PERSONAL HEALTH INFORMATION REVIEWED. PATIENT LIVES ALONE IN AN APARTMENT. 15 STEPS. STATES SHE ONLY HAS DIFFCULT IF SHE CARRYING A BUNCH OF GROCERIES AND USES INHALER IF NEEDED. CPAP THROUGH [facility]. DOES NOT USE WALKER, CANE OR WHEELCHAIR. SHE HAS A SON IN [place] AND STEP DAUGHTERS IN [facility] IF SHE NEEDS HELP. DRIVES. DENIES ANY DIFFCULTY PAYING UTILITIES OR OBTAINING FOOD. PATIENT DOES NOT NEED ANY CM NEEDS AT THIS TIME.
--- NOTE | 2025-03-18 10:14 | NUR ---
MED REC COMPLETE
--- NOTE | 2025-03-18 10:15 | NUR ---
HOURLY ROUNDING. AMBULATED WITH PATIENT AROUND THE NURSE STATION TWICE. NO REQUEST FROM PATIENT AT THIS TIME
--- NOTE | 2025-03-18 10:48 | NUR ---
PT AMBULATES THE AMES 2 LAPS WITH SBA WELL TOLERATED. RETURNS TO SITTING IN THE CHAIR DENIES NEEDS AT THIS TIME. PT HAS A SMALL IRRITATED AREA IN HER NARE WHERE NG TUBE IS. PT REFUSES REPOSITIONING STATES IT'S FROM HER CPAP DISPLACING TUBE. ENCOURAGED HER TO ALLOW MOVING OF TUBE, SHE AGREES SHE WILL KEEP AN EYE ON IT AND NOTIFY STAFF OF ANY NEED
--- NOTE | 2025-03-18 10:58 | NUR ---
UR CLINICAL REVIEW: 2 MN FOR VERSALUS-PER HR DIRECTOR MEETS INPT FOR SBO WITH NEED FOR NG, SERIAL LABS AND POSSIBLE NEED FOR FURTHER IMAGING. INPT 03/16/25 @ 1635 ORDER MATCHES REG NO AUTH REQUIRED PER MEDICARE GUIDELINES DISCHARGE TO HOME WHEN MEDICALLY STABLE. MD CONSIDERING SB FOLLOW THROUGH AND POSSIBLE PROCEDURE
--- NOTE | 2025-03-18 13:12 | NUR ---
PT TO THE SHOWER PERSONAL CARE ITEMS PROVIDED. SHE DENIES OFFER OF ASSIST AGREES TO USE THE CALL LIGHT FOR ANY NEED OR CONCERNS
--- NOTE | 2025-03-18 13:12 | NUR ---
PT NOT AVAILABLE FOR VISIT. PROVIDED PRAYER.
[2025-03-18] MEDS ORDERED: buPROPion HCL XL 150 MG TAB.XL.24H PO SCH (13:30)
--- NOTE | 2025-03-18 14:38 | NUR ---
SHOWER WAS WELL TOLERATED. PT RETURNS TO SITTING UP IN THE CHAIR DENIES DISCOMFORT OR NEED OF ANYTHING. XRAY IN TO DO SMALL BOWEL FOLLOW THROUGH.
--- NOTE | 2025-03-18 15:57 | NUR ---
PT MOVES TO THE BED FOR FURTHER XRAYS HAS HAD NO C/O DISCOMFORT. CONTINUES SIPS FOR COMFORT.
--- NOTE | 2025-03-18 17:33 | NUR ---
PT HAVING GOOD OUTPUT IN COLOSTOMY DOES HER OWN CARE DENIES NEED OF ASSIST. UP IN ROOM INDEPENDANTLY.
--- NOTE | 2025-03-18 19:10 | NUR ---
REPORT RECEIVED FROM JONATHAN HOOK. pt SITTING UP IN THE CHAIR. BOARD UPDATED. pt CONNECTED BACK UP TO LIWS. pt DENIES ANY OTHER NEEDS AT THIS TIME. CALL LIGHT WITHIN REACH.
--- NOTE | 2025-03-18 21:30 | NUR ---
ASSESSMENT AND VITAL SIGNS DONE. pt UP TO THE BR, SBA FOR LINE/TUBE MANAGEMENT. pt BACK TO BED. pt NG TUBE ON LIWS. IV ASSESSED, WNL. pt NG TUBE PAUSED PER ORDER TO ADMINISTER PO MEDS. BOWEL TONES ARE ACTIVE. SCHEDULED MEDS ADMINISTERED. WATER REFRESHED. pt DENIES ANY OTHER NEEDS AT THIS TIME. CALL LIGHT WITHIN REACH.
--- NOTE | 2025-03-18 22:45 | NUR ---
IN RM TO RESTART LIWS AFTER PO MEDS WERE GIVEN. IV ABX INFUSING PER ORDER. NEW BAG OF IVF INFUSING PER ORDER. pt DENIES ANY OTHER NEEDS AT THIS TIME. CALL LIGHT WITHIN REACH.
[2025-03-19] VITALS (9 sets, daily range): BP systolic 145–162; BP diastolic 73–97
--- NOTE | 2025-03-19 00:40 | NUR ---
pt RESTING IN THE BED WITH EYES CLOSED. RR EVEN AND UNLABORED. CALL LIGHT WITHIN REACH.
--- NOTE | 2025-03-19 01:00 | NUR ---
PATIENT CALLED TO USE THE RESTROOM. SBA FOR TUBINGS MANAGEMENT. PATIENT VOIDED 700ML CLEAR YELLOW URINE. PATIENT EMPTIED OSTOMY WITH 75ML LIQUIDY. PATIENT IS BACK IN BED. NGT IS BACK ON. SIDE TABLE AND CALL LIGHT WITHIN REACH. NO OTHER NEEDS AT THIS TIME.
--- NOTE | 2025-03-19 02:01 | NUR ---
pt RESTING IN THE BED WITH EYES CLOSED. RR EVEN AND UNLABORED. CALL LIGHT WITHIN REACH.
--- NOTE | 2025-03-19 03:48 | NUR ---
pt RESTING IN THE BED WITH EYES CLOSED. RR EVEN AND UNLABORED. CALL LIGHT WITHIN REACH.
--- NOTE | 2025-03-19 06:29 | NUR ---
pt RESTED THROUGH OUT THE NIGHT. NG TUBE CONNECTED TO LIWS. pt HAS FRESH ICE WATER FOR COMFORT. SCHEDULED AND PRN MEDS ADMINISTERED PER ORDER. NO OTHER NEEDS AT THIS TIME.
--- NOTE | 2025-03-19 07:17 | NUR ---
PT AWAKE AND INTERACTIVE AT TIME OF SHIFT REPORT. DENIES DISCOMFORTS OR NEEDS AGREES SHE HAD A GOOD NIGHT. CALL LIGHT IN REACH PT DENIES NEEDS OF
--- NOTE | 2025-03-19 09:00 | NUR ---
Spoke with Jenn. She denies needs. Plans on dc to home when discharged. She lives alone. She has family members; son, DIL, friend all who will help her. IM letter given and pt states understanding. RN in and removed pts NG. Pt very happy with this. She denies needs.
--- NOTE | 2025-03-19 09:18 | NUR ---
PT UP IN THE CHAIR WATCHING TV USING LAP TOP, DC MEDICAL RESEARCH SCIENTIST IN TO SEE HER ALL QUESTIONS ANSWERED. NG TUBE DC'D PER DR COLLIER AND CLEAR LIQUIDS PROVIDED. ADVANCING DIET DISCUSSED AT LENGTH PT VERBALIZES UNDERSTANDING AND PLANS TO PROCEED CAUTIOUSLY
--- NOTE | 2025-03-19 09:54 | NUR ---
PATIENT IS SITTING IN CHAIR AT THIS TIME, EATING JELLO. PATIENT CALLED KITCHEN AND ORDERED FOOD. GENNA'Alfreda WISDOM AND VIVIENNE TOOK VITAL SIGNS AND I&O'S. CALL LIGHT WITHIN REACH AND NO FURTHER NEEDS AT THIS TIME.
--- NOTE | 2025-03-19 10:28 | NUR ---
PT TOLERATING CLEAR LIQUIDS WELL ORDERED CONSERVATIVELY FOR LUNCH.
--- NOTE | 2025-03-19 11:24 | NUR ---
HOURLY ROUNDING. WALKED TWO LAPS AROUND THE NURSE STATION WITH PATIENT, PATIENT APPEARS TO BE IN A GOOD MOOD. CALL LIGHT HAS BEENPLACED WITHIN REACH
--- NOTE | 2025-03-19 11:38 | NUR ---
PT AMBULATES SEVERAL LAPS IN THE AMES RETURNS TO HER CHAIR COMPANY IS PRESENT
--- NOTE | 2025-03-19 12:37 | NUR ---
PT ORDERED MASHED POTATOES AND LIGHT NOON MEAL THEN ENDED UP WITH A CHICKEN BREAST STATING SHE DIDN'T LIKE THE POTATOES. PT CAUTIONED TO GO SLOW AND LIGHT AND HAD VERBALIZED PERFECT UNDERSTANDING. PT HAS BEEN ACTIVE WALKING IN THE AMES. CONTINUES UP IN THE CHAIR EATING WITHOUT COMPLAINT.
--- NOTE | 2025-03-19 13:11 | NUR ---
PATIENT IN CHAIR FOR LUNCH. HAS VISITOR IN ROOM. IT TRAINER'Alfreda WISDOM AND VIVIENNE TOOK VITAL SIGNS AND I&O'S. CALL LIGHT WITHIN REACH, WITH NO FURTHER NEEDS AT THIS TIME.
--- NOTE | 2025-03-19 13:30 | NUR ---
THIS RN IN ROOM TO GIVE IV ABX - SEE MAR. PATIENT VISITING WITH FRIEND, SITTING UP IN CHAIR. DENIES ANY OTHER NEEDS AT THIS TIME. CALL LIGHT WITHIN REACH.
--- NOTE | 2025-03-19 13:33 | NUR ---
PT NOT AVAILABLE FOR VISIT. PROVIDED PRAYER.
--- NOTE | 2025-03-19 15:13 | NUR ---
PT SITTING UP IN THE CHAIR USING LAP TOP DENIES DISCOMFORT OR NEEDS OF
--- NOTE | 2025-03-19 16:23 | NUR ---
TOOK PATIENT ON A WALK AROUND THE FLOOR FOR 2 LAPS TOTAL. PATIENT IS NOW BACK IN CHAIR. CALL LIGHT WITHIN REACH AND NO FURTHER NEEDS AT THIS TIME.
--- NOTE | 2025-03-19 16:24 | NUR ---
PT CONTINUES UP IN THE CHAIR UPBEAT AND CHEERFUL. DENIES NEEDS AT THIS TIME
--- NOTE | 2025-03-19 18:25 | NUR ---
PT AGREES SHE FEELS WELL AFTER THE EVENING MEAL, DENIES NAUSEA OR STOMACH UPSET EATS 90% REGULAR LOW FIBER DIET. PT HAS AMBULATED SEVERAL TIMES THIS SHIFT, CONTINUES UP IN THE CHAIR.
--- NOTE | 2025-03-19 19:10 | NUR ---
REPORT RECEIVED FROM JONATHAN HOOK. pt SITTING IN THE CHAIR. BOARD UPDATED. pt DENIES ANY OTHER NEEDS AT THIS TIME. CALL LIGHT WITHIN REACH.
--- NOTE | 2025-03-19 22:30 | NUR ---
ASSESSMENT DONE. IV ASSESSED, WNL. SCHEDULED MEDS ADMINISTERED. pt UP TO THE BR, INDEPENDENT IN THE RM. pt BOWEL TONES ACTIVE. pt DENIES ANY OTHER NEEDS AT THIS TIME. CALL LIGHT WITHIN REACH.
--- NOTE | 2025-03-19 23:31 | NUR ---
pt RESTING IN THE BED WITH EYES CLOSED. RR EVEN AND UNLABORED. CALL LIGHT WITHIN REACH.
--- NOTE | 2025-03-20 01:28 | NUR ---
pt RESTING IN THE BED WITH EYES CLOSED. RR EVEN AND UNLABORED. CALL LIGHT WITHIN REACH.
--- NOTE | 2025-03-20 03:14 | NUR ---
pt RESTING IN THE BED WITH EYES CLOSED. RR EVEN AND UNLABORED. CALL LIGHT WITHIN REACH.
[2025-03-20 05:55] VITALS: BP 170/84
[2025-03-20 06:00] VITALS: BP 170/84
--- NOTE | 2025-03-20 06:33 | NUR ---
pt IV ABX ADMINISTERED PER ORDER. SCHEDULED MEDS ADMINISTERED. pt UP TO THE BR. pt INDEPENDENT IN THE RM. pt DENIES ANY OTHER NEEDS AT THIS TIME. CALL LIGHT WITHIN REACH. WATER REFRESHED.
--- NOTE | 2025-03-20 07:35 | NUR ---
RECIEVED REPORT FROM MILADYS STUART. PT AWAKE, SITTING UP IN BED AWAKE, STATES NO CURRENT NEEDS. CALL LIGHT WITHIN REACH.
[2025-03-20 09:09] VITALS: BP 147/70
--- NOTE | 2025-03-20 10:15 | NUR ---
Spoke with Jenn. She is walking in the toney. Denies needs. Plans on dc today.
[2025-03-20 10:19] VITALS: BP 147/70
[2025-03-20 11:34] VITALS: BP 154/96
[2025-03-20 11:38] VITALS: BP 154/96
--- NOTE | 2025-03-20 11:40 | NUR ---
PT DRESSES IN OWN CLOTHES INDEPENDENTLY. IV DC'D WNL. VSS. DC PACKET AND EDUCATION GIVEN TO PT, PT STATES ALL QUESTIONS HAVE BEEN ANSWERED. PT AMBULATES TO FRONT OF BUILDING WITH NURSING PERSONEL.
[2025-03-20] MEDS ORDERED: FAMOTIDINE 20 MG TAB PO SCH (21:00)
== END 2025-03-20 11:40 | disposition home or self-care (01) | DRG 389 ==
LOC: ED 09:54 → MS 16:41
PROVIDERS: Emergency Medicine; ADMIT Surgery; ATTEND Surgery
PROC: 0D9670Z Drainage of Stomach with Drainage Device, Via Natural or Artificial Opening (ICD-10-PCS; principal; 2025-03-16)
PROC: 5A09357 Assistance with Respiratory Ventilation, Less than 24 Consecutive Hours, Continuous Positive Airway Pressure (ICD-10-PCS; 2025-03-16)
DX: K56.699 Other intestinal obstruction unspecified as to partial versus complete obstruction (principal); N13.30 Unspecified hydronephrosis; I10 Essential (primary) hypertension; K43.5 Parastomal hernia without obstruction or gangrene; J44.9 Chronic obstructive pulmonary disease, unspecified; K45.8 Other specified abdominal hernia without obstruction or gangrene; K21.9 Gastro-esophageal reflux disease without esophagitis; E66.9 Obesity, unspecified; Z85.048 Personal history of other malignant neoplasm of rectum, rectosigmoid junction, and anus; Z90.49 Acquired absence of other specified parts of digestive tract; Z93.3 Colostomy status; Z68.33 Body mass index [BMI] 33.0-33.9, adult; Z87.891 Personal history of nicotine dependence; Z88.8 Allergy status to other drugs, medicaments and biological substances; Z92.21 Personal history of antineoplastic chemotherapy; Z92.3 Personal history of irradiation
CPT/HCPCS: 36415; 71045; 74018; 74177; 74250; 80053; 81003; 83605; 83690; 85025; 94668; 94760; 94799; 96365; 96375; 96376; 99285-25; A9270; J0690; J1885; J2060; J2270; J2405; J2543; J7121; Q9967

== ENCOUNTER 2025-04-08 05:38 | Day surgery (SDC) | payer MEDICARE, OTHER ==
[~2025-04-08] VITALS: Ht 160 cm; Wt 84.0 kg
[~2025-04-08 05:38] MED LIST changes: +BUPROPION XL450 MG PO; +GABAPENTIN400 MG PO; +LACTATED RINGER'S 1,000 ML IV SCH; +LAMOTRIGINE100 MG PO; +LISINOPRIL10 MG PO
[2025-04-08 05:54] VITALS: BP 158/52
[2025-04-08] MEDS ORDERED: PROPRANOLOL HCL10 MG PO (06:23)
[2025-04-08] MEDS ORDERED: BUPIVACAINE HCL 0.25% 50 ML MDV ONE (06:45)
[2025-04-08] MEDS ORDERED: LIDOCAINE 1% W/ EPI 1:200,000 30 ML SDV ONE (06:45)
[2025-04-08] MEDS ORDERED: LIDOCAINE HCL 1% 5 ML SDV INJ ONE (07:00)
[2025-04-08] MEDS ORDERED: IBLOOD GLUCOSE TEST STRIP 1 EA TEST VI PRN ×2 (07:00→08:15)
[2025-04-08] MEDS ORDERED: CEFAZOLIN SODIUM 2 GM in SODIUM CHLORIDE 0.9% 100 ML IV SCH (07:00)
[2025-04-08] MEDS ORDERED: fentaNYL citrate 100 MCG/2 ML VIAL ONE (07:14)
[2025-04-08] MEDS ORDERED: LIDOCAINE HCL 2% 5 ML SDV ONE (07:14)
[2025-04-08] MEDS ORDERED: HYDROmorphone HCL 1 MG/ML SYR IV PRN ×2 (07:45→08:15)
[2025-04-08] MEDS ORDERED: OXYCODONE/APAP 5/325 TAB PO PRN (07:45)
[2025-04-08] MEDS ORDERED: NALOXONE HCL 0.4 MG SYR IV PRN (08:15)
[2025-04-08] MEDS ORDERED: fentaNYL citrate 50 MCG/ML SDV IV PRN (08:15)
[2025-04-08] MEDS ORDERED: PROCHLORPERAZINE EDISYLATE 10 MG/2 ML VIAL IV PRN (08:15)
--- NOTE | 2025-04-08 10:05 | NUR ---
04/08/25 1005 Priscilla Padilla 0949- PT PRESENTS TO PACU, SEMI CHAVEZ POSITION, DROWSY. DENIES PAIN OR NAUSEA. LR INFUSING TO RW, BREATHING EVEN AND NON LABORED ON ROOM AIR. ABD SOFT, NON DISTENDED. COLOSTOMY SITE INTACT. PT ABLE TO MOVE BLE EQUALLY. DRESSING TO BACK SIDE CDI. ALL MONITORS IN PLACE. 1003- PT SAT UP IN BED, ICE WATER PROVIDED. UPPER DENTURE GIVEN TO PT, WELL GLASSES. PT TOLERATING WELL.
[2025-04-08 10:17] VITALS: BP 117/62
--- NOTE | 2025-04-08 10:24 | NUR ---
1015- RECIEVED REPORT FROM BIOMED TECH. VITALS, PAIN, AND N/V NOTED. PT IN POSTION OF COMFORT. DRINKING WATER WITHOUT DIFFICULTY. WAITING FOR REP TO PROGRAM NEUROMODULATOR AND DC INFO. CALL LIGHT IN REACH. NO FURTHER NEEDS AT THIS TIME.
[2025-04-08 11:19] VITALS: BP 135/65
--- NOTE | 2025-04-08 12:14 | NUR ---
1115- PT EDUCATION PROVIDED PER DC PACKET AND SUPPLIMENTAL EDUCATION PROVIDED. PT VERBALIZED UNDERSTANDING OF DC INSTRUCTIONS. NO COMPLAINT OF PAIN, N/V. PT UP TO VOID, INCONTINENCE OCCURED WHEN PATIENT STOOD AT SIDE OF BED. PT PUT ON DEPENDS WITH SOME ASSISTANCE. PT ABLE TO AMBULATE TO BATHROOM WITHOUT ISSUE. FLOOR CLEANED, PT BACK IN BED WITHOUT ISSUE.
[2025-04-08 12:35] VITALS: BP 157/72
--- NOTE | 2025-04-08 13:00 | NUR ---
1240- VITALS, PAIN, DRESSING, AND N/V NOTED. PT DRESSED SELF WITHOUT ISSUES. PT QUESTIONS ANSWERED. PT TRANSFERRED TO WHEELCHAIR WITHOUT ISSUE OR ASSISTANCE. PT AMBULATED FROM WHEELCHAIR TO CAR WITHOUT ISSUE.
== END 2025-04-08 12:43 | disposition home or self-care (01) ==
LOC: DS 05:38 → OPS 05:38 → DS 07:30 → OPS 07:30 → DS 08:50 → OPS 12:43
PROVIDERS: ATTEND Urology
PROC: 01HY3MZ Insertion of Neurostimulator Lead into Peripheral Nerve, Percutaneous Approach (ICD-10-PCS; principal; 2025-04-08 07:30)
DX: N32.81 Overactive bladder (principal); Z79.899 Other long term (current) drug therapy; I10 Essential (primary) hypertension; Z87.891 Personal history of nicotine dependence; Z88.8 Allergy status to other drugs, medicaments and biological substances
CPT/HCPCS: 00300; 76000; C1778; C1889; C1897; J0688; J2003; J2405; J2704; J3010; J7121

== ENCOUNTER 2025-04-22 05:33 | Day surgery (SDC) | payer MEDICARE, OTHER ==
[~2025-04-22] VITALS: Ht 160 cm; Wt 83.9 kg
[~2025-04-22 05:33] MED LIST changes: +PROPRANOLOL HCL10 MG PO
[2025-04-22 06:01] VITALS: BP 158/73
[2025-04-22] MEDS ORDERED: LIDOCAINE 1% W/ EPI 1:200,000 30 ML SDV ONE (06:56)
[2025-04-22] MEDS ORDERED: BUPIVACAINE HCL 0.25% 50 ML MDV ONE (06:56)
[2025-04-22] MEDS ORDERED: LIDOCAINE HCL 1% 5 ML SDV INJ ONE (07:00)
[2025-04-22] MEDS ORDERED: CEFAZOLIN SODIUM 2 GM in SODIUM CHLORIDE 0.9% 100 ML IV SCH (07:00)
[2025-04-22] MEDS ORDERED: IBLOOD GLUCOSE TEST STRIP 1 EA TEST VI PRN (07:00)
[2025-04-22] MEDS ORDERED: fentaNYL citrate 100 MCG/2 ML VIAL ONE (07:13)
[2025-04-22] MEDS ORDERED: DEXAMETHASONE SOD PHOS 4 MG/ML VIAL ONE (08:20)
--- NOTE | 2025-04-22 08:32 | NUR ---
04/22/25 0832 Cristine Cristobal LE 0824: PT ARRIVES TO PACU AWAKE AND ALERT. REPORT RECEIVED FROM [employer]VANCED MANAGER AND [employer] CONSULTANT. LE 0826: PT ASKS FOR WATER. SHE IS TOLERATING SIPS WELL. LE 0830: PT DENIES PAIN AND NAUSEA. SHE ASKS TO HAVE THE HEAD OF HER BED ELEVATED.
[2025-04-22] MEDS ORDERED: HYDROmorphone HCL 1 MG/ML SYR IV PRN (08:45)
[2025-04-22] MEDS ORDERED: OXYCODONE/APAP 5/325 TAB PO PRN (08:45)
[2025-04-22 09:00] VITALS: BP 132/72
== END 2025-04-22 09:15 | disposition home or self-care (01) ==
LOC: DS 05:33 → OPS 05:33 → DS 07:30 → OPS 08:50 → DS 08:50 → OPS 09:15
PROVIDERS: ATTEND Urology
PROC: 0JH70MZ Insertion of Stimulator Generator into Back Subcutaneous Tissue and Fascia, Open Approach (ICD-10-PCS; principal; 2025-04-22 07:30)
DX: N32.81 Overactive bladder (principal); E78.5 Hyperlipidemia, unspecified; Z88.8 Allergy status to other drugs, medicaments and biological substances; Z91.048 Other nonmedicinal substance allergy status; Z87.891 Personal history of nicotine dependence
CPT/HCPCS: 00400; C1767; C1787; J0688; J1100; J2405; J2704; J3010; J7121

== ENCOUNTER 2025-06-28 16:20 | Emergency (ER) | payer OTHER, MEDICARE ==
[~2025-06-28] VITALS: Ht 160 cm; Wt 88.5 kg
[~2025-06-28 16:20] MED LIST changes: -LACTATED RINGER'S 1,000 ML IV SCH
[2025-06-28] MEDS ORDERED: MORPHINE SULFATE 4 MG/ML VIAL IV ONE ×2 (16:45→18:00)
[2025-06-28] MEDS ORDERED: OXYCODONE/ACETAMINOPHEN 1 TAB HOME.PACK PO ONE (20:00)
[2025-06-28] MEDS ORDERED: PERCOCET 5-3251 EACH PO (20:17)
[2025-06-28 20:30] VITALS: BP 132/75
== END 2025-06-28 20:15 | disposition home or self-care (01) ==
LOC: ED 16:20
DX: S42.352A Displaced comminuted fracture of shaft of humerus, left arm, initial encounter for closed fracture (principal); W01.0XXA Fall on same level from slipping, tripping and stumbling without subsequent striking against object, initial encounter; Z79.899 Other long term (current) drug therapy; Z91.048 Other nonmedicinal substance allergy status; Z88.8 Allergy status to other drugs, medicaments and biological substances; Z87.891 Personal history of nicotine dependence
CPT/HCPCS: 29105; 73030; 96374; 96375; 96376; 99283-25; J2270; J2405

== ENCOUNTER 2025-06-30 06:46 | Emergency (ER) | payer MEDICARE, OTHER ==
[~2025-06-30] VITALS: Ht 160 cm; Wt 88.5 kg
[~2025-06-30 06:46] MED LIST changes: +PERCOCET 5-3251 EACH PO
[2025-06-30] MEDS ORDERED: PERCOCET 5-3251 EACH PO (07:14)
[2025-06-30] MEDS ORDERED: OXYCODONE/ACETAMINOPHEN 1 TAB HOME.PACK PO ONE (07:15)
[2025-06-30 07:40] VITALS: BP 140/81
== END 2025-06-30 07:40 | disposition home or self-care (01) ==
LOC: ED 06:46
DX: S42.302D Unspecified fracture of shaft of humerus, left arm, subsequent encounter for fracture with routine healing (principal); Z87.442 Personal history of urinary calculi; Z88.8 Allergy status to other drugs, medicaments and biological substances; Z79.899 Other long term (current) drug therapy; W19.XXXA Unspecified fall, initial encounter
CPT/HCPCS: 29105; 73110; 99283-25

== ENCOUNTER 2025-07-01 19:19 | Emergency (ER) | payer MEDICARE, OTHER ==
[~2025-07-01] VITALS: Ht 160 cm; Wt 89.7 kg
[2025-07-01 20:22] VITALS: BP 114/48
== END 2025-07-01 20:22 | disposition home or self-care (01) ==
LOC: ED 19:19
PROC: 2W5 Placement, Anatomical Regions, Removal (ICD-10-PCS; principal; 2025-07-01)
DX: S42.202A Unspecified fracture of upper end of left humerus, initial encounter for closed fracture (principal); W01.10XA Fall on same level from slipping, tripping and stumbling with subsequent striking against unspecified object, initial encounter; Z87.891 Personal history of nicotine dependence; Z88.8 Allergy status to other drugs, medicaments and biological substances; Z79.899 Other long term (current) drug therapy
CPT/HCPCS: 99283